=== PATIENT | female | born 1985 | race Caucasian/White ===

== ENCOUNTER 2020-08-09 06:39 | Inpatient (IN) | payer OTHER, SELFPAY ==
[2020-08-09] VITALS (23 sets, daily range): BP systolic 92–142; BP diastolic 28–116; PULSE 0–138; RESP 15–31; TEMP 36.3–36.9; O2SAT 99–100; BMI 23.9
--- NOTE | ~2020-08-09 | XR_ITS ---
EXAMINATION: XR chest 1V portable DATE: 08/09/2020 07:29 INDICATION: Shortness of breath. TECHNIQUE: A single frontal view of the chest was obtained. COMPARISON: Chest 2 views 07/14/2006 FINDINGS: There are airspace opacities in left lower lung zone. No pleural effusion or pneumothorax. The heart size is normal. IMPRESSION: 1. Airspace opacities in left lower lung zone, consistent with pneumonia. Reviewed, dictated and finalized at location A. DIRECTOR/FINANCE
[2020-08-09] MEDS: SODIUM CHLORIDE 0.9% IV 1,000 ML 999 ML IV CONT ×4 (06:50→15:07)
--- NOTE | 2020-08-09 06:50 | ECG_ITS ---
Measurements Intervals [place] Rate: 121 P: 78 RI: 116 QRS: -24 QRSD: 77 T: 56 QT: 321 QTc: 456 Interpretive Statements SINUS TACHYCARDIA WITH SHORT RI INTERVAL RSR' IN V1 OR V2, PROBABLY NORMAL VARIANT BASELINE WANDER- II, III, AVR, AVL, AVF, V6 ABNORMAL ECG Electronically Signed On 08-09-2020 13:21:08 STENCIL MACHINE OPERATOR by Francois Hammonds D.O.
[2020-08-09] MEDS: PROMETHAZINE HCL 25 MG/ML AMPUL 12.5 MG IV PUSH (06:52)
[2020-08-09 07:05] LABS: Basophils Absolute Auto 0.1 K/mm3 (0.0-0.1); Basophils Percent Auto 0.8 % (0.2-1.2); Eosinophils Percent Auto 0.1 % (0-4.4); Hematocrit 50.4 % (37.0-47.0); Hemoglobin 15.9 g/dL (12.0-15.0); Immature Granulocyte Absolute 0.14 K/mm3 (0.00-0.031); Immature Granulocyte Percent A 0.9 % (0-0.5); Lymphocytes Absolute Auto 1.73 K/mm3 (0.9-3.2); Lymphocytes Percent Auto 10.7 % (18.3-44.2); Mean Corpuscular HGB Conc 31.5 g/dl (32-36); Mean Corpuscular Hemoglobin 29.7 pg (26-34); Mean Corpuscular Volume 94.2 fl (80-100); Mean Platelet Volume 9.6 fl (7.4-10.4); Monocytes Absolute Auto 1.2 K/mm3 (0.1-0.6); Monocytes Percent Auto 7.4 % (2.6-8.5); Neutrophils Percent Auto 80.1 % (45.5-73.1); Platelet Count Result 458 k/mm3 (150-375); Red Blood Count 5.35 M/mm3 (4.2-5.4); Red Cell Distribution Width 13.1 % (11.5-14.5); White Blood Count 16.2 K/mm3 (4.5-10.0)
[2020-08-09 07:09] LABS: Base Excess ABG -24.5 mEq/l (+/-2.0); Carboxyhemoglobin 0.7 % THb (0-2.0); Fractional Inspired Oxygen 21 %; HCO3 ABG 3.5 mEq/l (22.0-26.0); Methemoglobin ABG 0.4 %THb (0-1.5); Oxygen Content ABG 21.3 %vol (16.0-22.0); Oxygen Saturation ABG 96.1 % (95.0-100.0); Oxyhemoglobin 96.2 % THb (90.0-100.0); PO2 ABG 110.8 mmHg (80.0-100.0); PO2 FiO2 Ratio Arterial Blood 5.28 %; Reduced Hemoglobin 2.7 %THb (0-5.0); Total Hemoglobin 15.7 g/dL (12.0-18.0)
[2020-08-09 07:10] LABS: PCO2 ABG 12.5 mmHg (35.0-45.0); pH ABG 7.065 (7.350-7.450)
[2020-08-09 07:11] LABS: Device ROOM AIR; Modified Allen's Test Pass; Site Drawn RIGHT RADIAL
[2020-08-09 07:16] LABS: Alanine Aminotransferase 35 U/L (4-35); Albumin Level 4.8 g/dL (3.5-5.1); Alkaline Phosphatase 184 U/L (38-126); Aspartate Amino Transferase 68 U/L (14-36); Bilirubin,Total 0.5 mg/dL (0.2-1.3); Blood Urea Nitrogen 10 mg/dL (7-17); Calcium 9.5 mg/dL (8.4-10.2); Carbon Dioxide < 5 mmol/L (22-30); Chloride 101 mmol/L (98-107); Estimated CRCL calculation 72 ml/min; Estimated Glomerular Filt Rate > 60; Glucose 331 mg/dL (65-105); Lipase 57 U/L (23-300); Potassium 4.7 mmol/L (3.4-5.0); Sodium 138 mmol/L (137-145)
[2020-08-09] MEDS: ONDANSETRON INJ 4 MG/2 ML VIAL IV PUSH (07:30)
[2020-08-09] MEDS: LORazepam INJ (*CRX) 2 MG/ML VIAL 1 MG IV PUSH (07:30)
--- NOTE | 2020-08-09 08:03 | ED.GENADULT ---
HPI - General Adult General Chief complaint: Shortness of Breath/Dyspnea Stated complaint: SOB N/V Time Seen by Provider: 08/09/20 07:16 Source: EMS Mode of arrival: EMS History of Present Illness HPI narrative: Patient brought to the emergency room by ambulance because of dry cough, shortness of breath, hyperventilation, nausea and vomiting and elevated blood glucose over the last 3 days. Unable to get history from the patient because unable to speak because of coughing every time trying to talk. No family member at the bedside. Related Data Allergies Allergy/AdvReac Type Severity Reaction Status Date / Time No Known Allergies Allergy Verified 07/07/16 12:55 Review of Systems Review of Systems: ROS unobtainable: Yes unobtainable due to medical condition PMFSH Past Medical History Medical History (Updated 08/09/20 @ 08:27 by Grace Jorgensen MD) Insulin dependent diabetes mellitus Social History Social History (Updated 08/09/20 @ 08:09 by Grace Jorgensen MD) Social History: Unknown patient unable to talk Second hand tobacco smoke exposure: No Exam Narrative: Exam Narrative: General appearance: Well-developed, well-nourished, ill looking Skin: Normal color Head: Normocephalic, nontraumatic Eyes: Clear conjunctiva ENT: Oropharynx normal, ears normal, nose normal Neck: Supple, nontender Chest and respiratory:, tachypneic, decreased air entry bilaterally mainly at the bases Heart: Tachycardic Abdomen: Soft, nontender, no organomegaly, quiet bowel sounds Vascular: Normal peripheral pulses, normal capillary refill. Neurologic: Alert, unable to answer question because of the coughing anytime try to talk Course Course Emergency Course: Improving Consultations Consultation #1: Dr. Chris Date: 08/09/20 Time: 08:11 Consultation #2: dr atwood Date: 08/09/20 Time: 08:29 Vital Signs Vital signs: Vital Signs Temperature 36.3 C L 08/09/20 06:40 Pulse Rate 118 H 08/09/20 06:40 Respiratory Rate 28 H 08/09/20 06:40 Blood Pressure 115/71 08/09/20 06:40 Pulse Oximetry 100 08/09/20 06:40 Temperature 36.3 C L 08/09/20 06:40 Pulse Rate 130 H 08/09/20 07:14 Respiratory Rate 22 H 08/09/20 07:14 Blood Pressure 138/99 H 08/09/20 07:14 Pulse Oximetry 99 08/09/20 07:14 Medical Decision Making MDM Narrative Medical decision making narrative: Patient presents with coughing and elevated blood glucose. Labs, chest x-ray, ABG on room air, IV fluid ordered. Further plan to follow Differential Diagnosis Differential Diagnosis: Pneumonia, viral infection, dehydration, DKA Vital Signs Vital Signs: Vital Signs Temperature 36.3 C L 08/09/20 06:40 Pulse Rate 118 H 08/09/20 06:40 Respiratory Rate 28 H 08/09/20 06:40 Blood Pressure 115/71 08/09/20 06:40 Pulse Oximetry 100 08/09/20 06:40 Temperature 36.3 C L 08/09/20 06:40 Pulse Rate 130 H 08/09/20 07:14 Respiratory Rate 22 H 08/09/20 07:14 Blood Pressure 138/99 H 08/09/20 07:14 Pulse Oximetry 99 08/09/20 07:14 Lab Data Result diagrams: 08/09/20 06:52 08/09/20 06:52 Labs: Lab Results 08/09/20 08/09/20 08/09/20 Range/Units 06:52 06:52 06:52 WBC 16.2 H (4.5-10.0) K/mm3 RBC 5.35 (4.2-5.4) M/mm3 Hgb 15.9 H (12.0-15.0) g/dL Hct 50.4 H (37.0-47.0) % MCV 94.2 (80-100) fl MCH 29.7 (26-34) pg MCHC 31.5 L (32-36) g/dl RDW 13.1 (11.5-14.5) % Plt Count 458 H (150-375) k/mm3 MPV 9.6 (7.4-10.4) fl Immature Gran % (Auto) 0.9 H (0-0.5) % Neut % (Auto) 80.1 H (45.5-73.1) % Lymph % (Auto) 10.7 L (18.3-44.2) % [place] % (Auto) 7.4 (2.6-8.5) % Eos
[2020-08-09 09:02] LABS: Glucose Point of Care 414 (65-105)
[2020-08-09] MEDS: INSULIN HUMAN REGULAR (*BKC) 100 UNITS in SODIUM CHLORIDE 0.9% IV 99 ML 7 UNITS IV CONT (09:06)
[2020-08-09 09:08] LABS: Magnesium 1.7 mg/dL (1.6-2.3); Phosphorus 6.3 mg/dL (2.5-4.5)
--- NOTE | 2020-08-09 09:50 | PC.NURSE ---
pt urinated all over self and bedding. bedding and pt changed. warm blankets provided.
[2020-08-09 10:17] LABS: Hemoglobin A1C 10.8 % (<5.7)
[2020-08-09 10:31] LABS: Glucose Point of Care 323 (65-105)
--- NOTE | 2020-08-09 11:19 | ADMGEN ---
This patient, Tara Hinkle, was admitted to Intensive Care Unit-7 @ 1015. Patient/ oriented to hospital policies and general routines including ID bracelet, bed and alarms, visiting hours, pain management, procedures, bathroom and other care routines, personal items, smoking policy, room service/diet, and visiting hours. Insulin drip infusing at 7.9 units=7.9cc/hr. monitor ST @ 140- resp @ 30 spo2= 100% Information on how to activate the Rapid Response Team has been discussed. Patient/are encouraged to report perceived risks to care and to ask questions if they do not understand what they are told or what they should do.
[2020-08-09] MEDS: KCL 20 MEQ/D5/0.45% SOD CHL 1,000 ML 150 ML IV CONT ×2 (12:15→21:05)
[2020-08-09 12:28] LABS: Glucose Point of Care 271 (65-105)
[2020-08-09 12:28] LABS: Glucose Point of Care 184 (65-105)
[2020-08-09 13:19] LABS: Glucose Point of Care 128 (65-105)
--- NOTE | 2020-08-09 13:44 | WPDCNINT ---
Assessment and Plan Assessment and plan (1) DKA (diabetic ketoacidoses): Qualifiers: Diabetes mellitus complication detail: without coma Diabetes mellitus type: type 1 Qualified Code(s): E10.10 - Type 1 diabetes mellitus with ketoacidosis without coma Code(s): E11.10 - Type 2 diabetes mellitus with ketoacidosis without coma Status: Acute Assessment and Plan: Patient presented to the ED with nausea, vomiting, abdominal discomfort, cough -found to be in DKA, given IV fluid bolus, 3 L in all (including ICU) -heart rate improved -patient started on insulin infusion per DKA protocol IV fluids and Q 4 BMPs -hemoglobin A1c is 10.8 -continue insulin infusion for now (2) Community acquired pneumonia: Qualifiers: Laterality: left Lung location: lower lobe of lung Qualified Code(s): J18.9 - Pneumonia, unspecified organism Code(s): J18.9 - Pneumonia, unspecified organism Status: Acute Assessment and Plan: Chest x-ray showed left lower lobe airspace disease -patient also complaining of cough along with leukocytosis -no fevers -patient started on azithromycin and ceftriaxone -ordered Tessalon Perles for her cough (3) Suspected 2019 novel coronavirus infection: Code(s): Z20.828 - Contact with and (suspected) exposure to other viral communicable diseases Status: Acute Assessment and Plan: SARS-CoV-2 PCR soap has been obtained COVID-19 and pending -continue airborne, droplet, contact isolation and precautions Additional Plan Discussed with patient regarding her plan of care. Code status: Full code Critical care time spent: 43 minutes Due to a high probability of clinically significant, life threatening deterioration, the patient required my highest level of preparedness to intervene emergently and I personally spent this critical care time directly and personally managing the patient. This critical care time included obtaining a history; examining the patient; pulse oximetry; ordering and review of studies; arranging urgent treatment with development of a management plan; evaluation of patient's response to treatment; frequent reassessment; and discussions with other providers. It was exclusive of separately billable procedures and treating other patients and teaching time. Please see Assessment and Plan section and the rest of the note for further information on patient assessment and treatment Psychiatric Technician Assistant Consult Note Consult date: 08/09/20 Time Seen: 10:49 Reason for consult: DKA, suspect COVID-19 HPI: Tara Hinkle is a 35 year old female with past medical of insulin-dependent diabetes presented ED on 08/09/2020 with complains of dry cough, shortness of breath nausea, vomiting, abdominal discomfort elevated blood sugars for the last 3 days. Patient states that she been taking her insulin but a blood sugars remain elevated. Nonproductive cough. Unable to obtain more history due to patient coughs with every sentence. Vasopressin the left lower lung zone, this 1 pneumonia, patient was started on azithromycin and ceftriaxone. Patient was found to be in DKA in the ER, given 2 L IV fluids, started on insulin infusion per DKA protocol and transferred to the ICU for further management. Patient was seen examined upon arrival to the ICU, patient was tachycardic in the 130s to 140s, additional IV fluid bolus was given. Patient is awake, alert, follows simple commands. Continues to cough with every sentence. Patient is afebrile, hemodynamically stable. She has not been around any COVID-19 positive patients. Complained of nausea, vomiting, abdominal discomfort, which has improved Review of Systems Review of Systems: All systems reviewed & are unremarkable except as noted in HPI and below [facility] Past Medical History Medical History (Updated 08/09/20 @ 13:54 by Davy Chris MD) Insulin dependent diabetes mellitus Social History Social History (Updated 08/09
[2020-08-09 14:30] LABS: Glucose Point of Care 129 (65-105)
[2020-08-09] MEDS: BENZONATATE 100 MG CAPSULE PO ×2 (15:02→22:17)
[2020-08-09 15:14] LABS: Glucose Point of Care 131 (65-105)
[2020-08-09 15:20] LABS: Anion Gap 21 mmol/L (8-16); Blood Urea Nitrogen 10 mg/dL (7-17); Calcium 8.1 mg/dL (8.4-10.2); Carbon Dioxide 9 mmol/L (22-30); Chloride 111 mmol/L (98-107); Estimated CRCL calculation 75 ml/min; Estimated Glomerular Filt Rate > 60; Glucose 138 mg/dL (65-105); Potassium 4.2 mmol/L (3.4-5.0); Sodium 141 mmol/L (137-145)
--- NOTE | 2020-08-09 18:00 | PM.IMHP ---
H&P: HPI History of Present Illness Date/Time: 08/09/20 18:00 Chief complaint: Nausea, vomiting, shortness breath, cough. Cheif Complaint: Nausea, vomiting, cough, shortness of breath. Narrative: Tara Hinkle is a 35-year-old female with insulin-dependent diabetes who presented to the emergency department earlier today via EMS from home with complaints of nausea, vomiting, shortness of breath, and cough. She has been feeling unwell for about 3 days and has not been able to hold down much of anything due to ongoing nausea and vomiting. She also has a hacking, nonproductive cough which makes it difficult for her to even take a drink as she is coughing so much. Her sinuses are also congested. For several days her glucose has been running quite high, despite taking her insulin as prescribed. This morning she was pretty short of breath and thus came in for evaluation. She was found to be in DKA and is being admitted in this setting. Her chest x-ray showed findings in the left lower lung zone consistent with pneumonia. 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 She has not had fever, chest pain, or diarrhea. Review of Systems Review of Systems: Narrative: Twelve systems were reviewed with pertinent positives and negatives as per HPI. Weight has remained stable. No recent travel. She denies blurry vision. Reports polydipsia and polyuria. Last menstrual cycle was approximately 2 weeks ago. No dysuria. She denies concerns for aspiration. Admits her diabetes is not always very well controlled. Except as documented, all other systems were reviewed and are negative. [facility] Past Medical History Medical History (Updated 08/09/20 @ 23:53 by Denisa Norman PA-C) Type 1 diabetes mellitus Diagnosed at the age of 7. Hemoglobin A1c was 10.8% on 08/09/2020. Surgical History Surgical History (Updated 08/09/20 @ 15:35 by Denisa Norman PA-C) History of 3 sections Family History Family History (Updated 08/09/20 @ 23:53 by Denisa Norman PA-C) Other Hypertension Social History Social History (Updated 08/09/20 @ 23:54 by Denisa Norman PA-C) Social History: The patient lives alone in [place]. She smokes about half a pack of cigarettes a day and consumes about four alcoholic beverages a week. Occasional marijuana use. She designates her father, Gomez Henry, as her surrogate decision maker and she wishes to be a full code. Smoking packs per day: 0.5 Smoking cigarettes per day: 10.0 Years smoked: 19 Smoking pack-years: 9.50 Smoking status: Current every day smoker Tobacco type: cigarettes Second hand tobacco smoke exposure: No Alcohol intake: current Drinks per week: 4 Substance use: current Substance use type: marijuana Gender identity (if verbalized by the patient): Female Spiritual care concerns: No Meds Home Medications and Allergies Home Medications Medication Instructions Recorded Confirmed Type insulin glargine [Basaglar KwikPen 14 unit SUBCUT Q12H 08/09/20 08/09/20 History U-100 Insulin] Allergies Allergy/AdvReac Type Severity Reaction Status Date / Time No Known Allergies Allergy Verified 07/07/16 12:55 Vital Signs Vital Signs - 24 hr 08/09/20 06:40 08/09/20 07:14 08/09/20 07:16 Temperature 97.3 F L Pulse Rate 118 H 130 H 129 H Respiratory Rate 28 H 22 H 29 H Blood Pressure 115/71 138/99 H 128/91 H Pulse Oximetry 100 99 08/09/20 07:17 08/09/20 07:30 08/09/20 07:43 Temperature Pulse Rate 137 H 0 L 131 H Respiratory Rate 25 H 24 H 29 H Blood Pressure 142/114 H Pulse Oximetry 100 100 08/09/20 07:45 08/09/20 08:00 08/09/20 08:02 Temperature Pulse Rate 126 H 120 H 118 H Respiratory Rate 25 H 24 H 27 H Blood Pressure 136/116 H Pulse Oximetry 100 100 100 08/09/20 08:23 08/09/20 10:35
[2020-08-09 18:18] LABS: Glucose Point of Care 126 (65-105)
[2020-08-09 18:18] LABS: Glucose Point of Care 117 (65-105)
[2020-08-09 18:18] LABS: Glucose Point of Care 116 (65-105)
[2020-08-09 19:15] LABS: Glucose Point of Care 105 (65-105)
[2020-08-09 20:21] LABS: Anion Gap 8 mmol/L (8-16); Blood Urea Nitrogen 9 mg/dL (7-17); Calcium 7.8 mg/dL (8.4-10.2); Carbon Dioxide 18 mmol/L (22-30); Chloride 114 mmol/L (98-107); Estimated CRCL calculation 98 ml/min; Estimated Glomerular Filt Rate > 60; Glucose 79 mg/dL (65-105); Potassium 3.4 mmol/L (3.4-5.0); Sodium 140 mmol/L (137-145)
[2020-08-09 21:22] LABS: Glucose Point of Care 91 (65-105)
[2020-08-09 21:24] LABS: Glucose Point of Care 84 (65-105)
[2020-08-09 22:25] LABS: Glucose Point of Care 116 (65-105)
[2020-08-09 22:42] LABS: SARS-CoV-2 RNA PCR Negative
[2020-08-09 23:14] LABS: Glucose Point of Care 125 (65-105)
[2020-08-09] MEDS: INSULIN GLARGINE (*BKC) 100 UNITS/ML 14 UNITS SUB-Q (23:36)
[2020-08-10] VITALS (13 sets, daily range): BP systolic 102–121; BP diastolic 66–87; PULSE 77–98; RESP 15–20; TEMP 36.2–37.2; O2SAT 94–100
[2020-08-10 05:20] LABS: Basophils Percent Auto 0.4 % (0.2-1.2); Eosinophils Absolute Auto 0.1 K/mm3 (0-0.3); Eosinophils Percent Auto 0.9 % (0-4.4); Hematocrit 39.1 % (37.0-47.0); Immature Granulocyte Absolute 0.03 K/mm3 (0.00-0.031); Immature Granulocyte Percent A 0.4 % (0-0.5); Lymphocytes Absolute Auto 1.84 K/mm3 (0.9-3.2); Lymphocytes Percent Auto 26.8 % (18.3-44.2); Mean Corpuscular HGB Conc 33.2 g/dl (32-36); Mean Corpuscular Hemoglobin 29.7 pg (26-34); Mean Corpuscular Volume 89.5 fl (80-100); Mean Platelet Volume 10.2 fl (7.4-10.4); Monocytes Absolute Auto 0.6 K/mm3 (0.1-0.6); Monocytes Percent Auto 8.9 % (2.6-8.5); Neutrophils Absolute Auto 4.3 K/mm3 (1.3-6.7); Neutrophils Percent Auto 62.6 % (45.5-73.1); Platelet Count Result 305 k/mm3 (150-375); Red Blood Count 4.37 M/mm3 (4.2-5.4); Red Cell Distribution Width 12.9 % (11.5-14.5); White Blood Count 6.9 K/mm3 (4.5-10.0)
[2020-08-10 05:37] LABS: Anion Gap 11 mmol/L (8-16); Blood Urea Nitrogen 8 mg/dL (7-17); Calcium 8.2 mg/dL (8.4-10.2); Carbon Dioxide 18 mmol/L (22-30); Chloride 110 mmol/L (98-107); Estimated CRCL calculation 98 ml/min; Estimated Glomerular Filt Rate > 60; Glucose 213 mg/dL (65-105); Potassium 3.6 mmol/L (3.4-5.0); Sodium 139 mmol/L (137-145)
[2020-08-10] MEDS: BENZONATATE 100 MG CAPSULE PO ×3 (05:57→21:24)
[2020-08-10 08:23] LABS: Glucose Point of Care 206 (65-105)
[2020-08-10] MEDS: INSULIN ASPART (*BKC) 100 UNITS/ML SUB-Q ×3 (08:59→16:56)
[2020-08-10] MEDS: INSULIN GLARGINE (*BKC) 100 UNITS/ML 14 UNITS SUB-Q ×2 (09:02→20:01)
[2020-08-10 11:52] LABS: Glucose Point of Care 257 (65-105)
--- NOTE | 2020-08-10 13:08 | WPDINTPN ---
Progress Note: A&P Assessment and Plan (1) DKA (diabetic ketoacidoses): Qualifiers: Diabetes mellitus complication detail: without coma Diabetes mellitus type: type 1 Qualified Code(s): E10.10 - Type 1 diabetes mellitus with ketoacidosis without coma Code(s): E11.10 - Type 2 diabetes mellitus with ketoacidosis without coma Status: Acute Assessment and Plan: Patient presented to the ED with nausea, vomiting, abdominal discomfort, cough -patient adequate received IV fluids, was on insulin infusion per DKA protocol -tachycardia resolved -patient transition to sliding scale insulin and long-acting insulin -tolerating diabetic diet -hemoglobin A1c is 10.8 (2) Community acquired pneumonia: Qualifiers: Laterality: left Lung location: lower lobe of lung Qualified Code(s): J18.9 - Pneumonia, unspecified organism Code(s): J18.9 - Pneumonia, unspecified organism Status: Acute Assessment and Plan: Chest x-ray showed left lower lobe airspace disease -patient also complaining of cough along with leukocytosis -no fevers -continue azithromycin and ceftriaxone (initiated on 08/09) -continue Tessalon Perles for her cough (3) Suspected 2019 novel coronavirus infection: Code(s): Z20.828 - Contact with and (suspected) exposure to other viral communicable diseases Status: Acute Assessment and Plan: SARS-CoV-2 PCR negative Isolation has been discontinued Additional Plan Discussed with patient regarding her plan of care. Code status: Full code Critical care time spent: 31 minutes Due to a high probability of clinically significant, life threatening deterioration, the patient required my highest level of preparedness to intervene emergently and I personally spent this critical care time directly and personally managing the patient. This critical care time included obtaining a history; examining the patient; pulse oximetry; ordering and review of studies; arranging urgent treatment with development of a management plan; evaluation of patient's response to treatment; frequent reassessment; and discussions with other providers. It was exclusive of separately billable procedures and treating other patients and teaching time. Please see Assessment and Plan section and the rest of the note for further information on patient assessment and treatment Subjective Date/time seen: 08/10/20 13:08 Interval history: Reason for consult: DKA, suspect COVID-19, pneumonia, cough -SARS-CoV-2 PCR negative 08/10: Patient seen and examined the ICU, states she feels much better than on admission. Cough has improved, heart rate has improved. Patient denies any nausea, vomiting abdominal pain, chest pain. Hemodynamically stable, urine output has been good, afebrile Review of Systems Review of Systems: All systems reviewed & are unremarkable except as noted in HPI and below Exam Const: General: comfortable and no acute distress HENMT: Mouth: Yes dry mucous membranes Eyes: Sclera: sclerae normal Pupils: Equal, round and reactive pupils present Neck: Neck: supple Resp: Effort & Inspection: normal respiratory effort Auscultation: clear to auscultation bilaterally Cardio: Rate: regular rate Rhythm: regular rhythm GI: Inspection: normal to inspection and non-distended GI Palp: Yes Soft to palpation and No Tenderness to palpation present (GI) Auscultation: normal bowel sounds : Other: Deferred Skin: General skin exam: normal color and no rashes or lesions noted Other: Tattoos Neuro: Cranial nerves: Yes Equal, round and reactive pupils present Other: Patient is awake, alert, oriented, follows simple commands and answers to questions Extrem: General: normal to inspection, no edema and no pedal edema Psych: Mental Status: mental status grossly normal Affect: normal affect Objective Data Vital Signs Vital Signs: Vital Signs - 24 hr 08/09/20 14:00 08/09/20
--- NOTE | 2020-08-10 15:41 | PC.NURSE ---
pt transferred to room 345 via wheelchair accompanied by nurse-medical status - personal belongings with pt-condition stable - report given to Jaci NESBITT-
--- NOTE | 2020-08-10 15:51 | PC.NURSE ---
This patient, Tara Hinkle, was received from ICU on 08/10/20 at 1551. Patient/family oriented to unit policies and routines
[2020-08-10 17:48] LABS: Glucose Point of Care 210 (65-105)
--- NOTE | 2020-08-10 18:16 | PM.IMPN ---
Progress Note: A&P Assessment and Plan (1) Diabetic ketoacidosis: Code(s): E11.10 - Type 2 diabetes mellitus with ketoacidosis without coma Status: Resolved Assessment and Plan: Pt is off insulin drip (2) Pneumonia: Code(s): J18.9 - Pneumonia, unspecified organism Status: Acute Assessment and Plan: Iv rocephin and IV zithromax, Wcc is BNL, (3) Dehydration: Code(s): E86.0 - Dehydration Status: Resolved (4) Suspected 2019 novel coronavirus infection: Code(s): Z20.828 - Contact with and (suspected) exposure to other viral communicable diseases Status: Ruled-out (5) Type 1 diabetes mellitus: Code(s): E10.9 - Type 1 diabetes mellitus without complications Status: Acute Assessment and Plan: Lantus 14 units with sliding scale insulin Subjective Date/time seen: 08/10/20 18:16 Interval history: Reason for consult: DKA, suspect COVID-19, pneumonia, cough -SARS-CoV-2 PCR negative, pt moved out of ICU, comfortable eating well mild cough in the room Review of Systems Review of Systems: All systems reviewed & are unremarkable except as noted in HPI and below Exam Const: General: cooperative and healthy appearing; No in distress Nutritional Appearance: overweight Orientation/consciousness: oriented to person HENMT: Head: normal to inspection Resp: Effort & Inspection: no respiratory distress Auscultation: wheezes, breath sounds absent and diminished lung sounds Cardio: Rate: regular rate Rhythm: regular rhythm GI: Inspection: normal to inspection GI Palp: No abdominal tenderness, No Guarding due to palpation present (GI) and No Hepatomegaly present Auscultation: normal bowel sounds Neuro: General: oriented to person Objective Data Vital Signs Vital Signs: Vital Signs - 24 hr 08/09/20 20:00 08/09/20 22:00 08/10/20 00:00 Temperature 36.9 C 36.9 C Pulse Rate 86 87 89 Respiratory Rate 15 16 18 Blood Pressure 100/67 97/61 L 102/67 Pulse Oximetry 100 100 98 08/10/20 02:00 08/10/20 04:00 08/10/20 06:00 Temperature 36.9 C Pulse Rate 88 77 91 Respiratory Rate 20 18 19 Blood Pressure 121/75 108/66 114/79 Pulse Oximetry 94 95 94 08/10/20 08:00 08/10/20 09:45 08/10/20 10:00 Temperature 37.2 C Pulse Rate 84 87 98 Respiratory Rate 16 16 Blood Pressure 119/74 119/74 Pulse Oximetry 100 99 08/10/20 10:24 08/10/20 11:47 08/10/20 12:00 Temperature 37.2 C Pulse Rate 97 94 94 Respiratory Rate 18 15 Blood Pressure 107/66 121/87 Pulse Oximetry 100 100 08/10/20 14:00 08/10/20 16:45 Temperature 36.2 C L Pulse Rate 81 92 Respiratory Rate 16 Blood Pressure 111/74 Pulse Oximetry 100 Intake/Output Intake/Output: Intake & Output 08/07/20 08/08/20 08/09/20 08/10/20 23:59 23:59 23:59 23:59 Intake Total 5600 2303 Output Total 2550 1950 Balance 3050 353 Meds/Results Medications: Active Medications Generic Name Dose Route Start Last Admin Trade Name Freq PRN Reason Stop Dose Admin Benzonatate 100 mg 08/09/20 22:00 08/10/20 15:28 Benzonatate 100 Mg Capsule PO 100 mg Q8HR KARRIE Administration Dextrose 12.5 gm 08/09/20 07:54 Dextrose 50% 25 Gm/50 Ml Syringe IV PUSH PRN PRN Hypoglycemia Protocol Glucagon 1 mg 08/09/20 07:54 Glucagon For Inj 1 Mg Vial IM PRN PRN Hypoglycemia Protocol Glucose 15 gm 08/09/20 07:54 Glucose Oral Gel 15 Gm Of Glucse In 37.5 Gm Tube PO PRN PRN Hypoglycemia Protocol Dextrose 1,000 mls @ 100 mls/hr 08/09/20 07:54 Dextrose 5% 1,000 Ml IVPB PRN PRN Hypoglycemia Protocol Ceftriaxone Sodium/Dextrose 1 gm in 50 mls @ 100 mls/hr 08/10/20 08:00 08/10/20 09:55 Rocephin 1 Gm/D5w 50 Ml IVPB Infused Q24H KARRIE Infusion Azithromycin 500 mg in 250 mls @ 250 mls/hr 08/10/20 09:00 08/10/20 10:15 Zithromax IVPB Infused Q24H KARRIE Infusion Insulin Aspart 3 -
[2020-08-10 20:18] LABS: Glucose Point of Care 195 (65-105)
[2020-08-11 05:12] VITALS: BP 105/74; PULSE 87; RESP 16; TEMP 36.3; O2SAT 100
[2020-08-11] MEDS: BENZONATATE 100 MG CAPSULE PO ×3 (05:14→21:00)
[2020-08-11 06:57] LABS: Glucose Point of Care 83 (65-105)
[2020-08-11] MEDS: INSULIN GLARGINE (*BKC) 100 UNITS/ML 14 UNITS SUB-Q ×2 (08:39→20:02)
[2020-08-11 12:30] LABS: Glucose Point of Care 301 (65-105)
--- NOTE | 2020-08-11 12:51 | PM.IMPN ---
Progress Note: A&P Assessment and Plan (1) Diabetic ketoacidosis: Code(s): E11.10 - Type 2 diabetes mellitus with ketoacidosis without coma Status: Resolved Assessment and Plan: Pt is off insulin drip, lantus presently , glucose is 200. Continue to monitor, hopeful Dc tomorrow (2) Pneumonia: Code(s): J18.9 - Pneumonia, unspecified organism Status: Acute Assessment and Plan: Iv rocephin and IV zithromax, Wcc is NL, Bc is negative. cxr shows -Airspace opacities in left lower lung zone, consistent with pneumonia. (3) Dehydration: Code(s): E86.0 - Dehydration Status: Resolved (4) Suspected 2019 novel coronavirus infection: Code(s): Z20.828 - Contact with and (suspected) exposure to other viral communicable diseases Status: Ruled-out (5) Type 1 diabetes mellitus: Code(s): E10.9 - Type 1 diabetes mellitus without complications Status: Acute Assessment and Plan: Lantus 14 units with sliding scale insulin, accuchecks, short acting insulin Subjective Date/time seen: 08/11/20 12:51 Interval history: Reason for consult: DKA, suspect COVID-19, pneumonia, cough -SARS-CoV-2 PCR negative, pt feels better, mild cough. Review of Systems Review of Systems: All systems reviewed & are unremarkable except as noted in HPI and below Exam Narrative: Exam Narrative: General: Pleasant younger lady with wet cough HEENT: PERRLA Neck: Supple. = Respiratory: Decreased BS Bl with wheezes Cardiovascular: Regular rate and rhythm with S1-S2. Gastrointestinal: Abdomen is soft, nontender, and nondistended with positive bowel sounds. Skin: Warm and dry. No rash or lesions on limited exam. Extremities: No cyanosis, clubbing, or edema. Radial and pedal pulses intact. Neurological: Alert. Cranial nerves 2-12 are grossly intact. No gross focal deficits to casual conversation. Psychiatric: Appropriate mood and affect. Objective Data Vital Signs Vital Signs: Vital Signs - 24 hr 08/10/20 14:00 08/10/20 16:45 08/10/20 19:55 Temperature 36.2 C L 36.4 C Pulse Rate 81 92 87 Respiratory Rate 16 18 Blood Pressure 111/74 113/80 Pulse Oximetry 100 100 08/11/20 05:12 Temperature 36.3 C L Pulse Rate 87 Respiratory Rate 16 Blood Pressure 105/74 Pulse Oximetry 100 Intake/Output Intake/Output: Intake & Output 08/08/20 08/09/20 08/10/20 08/11/20 23:59 23:59 23:59 23:59 Intake Total 5600 2303 1590 Output Total 2550 1950 Balance 3050 353 1590 Meds/Results Medications: Active Medications Generic Name Dose Route Start Last Admin Trade Name Freq PRN Reason Stop Dose Admin Benzonatate 100 mg 08/09/20 22:00 08/11/20 05:14 Benzonatate 100 Mg Capsule PO 100 mg Q8HR KARRIE Administration Dextrose 12.5 gm 08/09/20 07:54 Dextrose 50% 25 Gm/50 Ml Syringe IV PUSH PRN PRN Hypoglycemia Protocol Glucagon 1 mg 08/09/20 07:54 Glucagon For Inj 1 Mg Vial IM PRN PRN Hypoglycemia Protocol Glucose 15 gm 08/09/20 07:54 Glucose Oral Gel 15 Gm Of Glucse In 37.5 Gm Tube PO PRN PRN Hypoglycemia Protocol Dextrose 1,000 mls @ 100 mls/hr 08/09/20 07:54 Dextrose 5% 1,000 Ml IVPB PRN PRN Hypoglycemia Protocol Ceftriaxone Sodium/Dextrose 1 gm in 50 mls @ 100 mls/hr 08/10/20 08:00 08/11/20 09:06 Rocephin 1 Gm/D5w 50 Ml IVPB Infused Q24H KARRIE Infusion Azithromycin 500 mg in 250 mls @ 250 mls/hr 08/10/20 09:00 08/11/20 10:18 Zithromax IVPB Infused Q24H KARRIE Infusion Insulin Aspart 3 - 6 units 08/10/20 08:00 08/11/20 07:04 Insulin Aspart (*Bkc) 100 Units/Ml SUB-Q Not Given TIDWM KARRIE Protocol Insulin Glargine 14 units 08/09/20 23:15 08/11/20 08:39 Insulin Glargine (*Bkc) 100 Units/Ml SUB-Q 14 units Q12HR KARRIE Administration Radiology Results: ITS Impressions Chest X-Ray 08/09/20 07:30 IMPRESSION: 1. Airspace opaciti
[2020-08-11] MEDS: INSULIN ASPART (*BKC) 100 UNITS/ML SUB-Q (12:53)
[2020-08-11 14:00] VITALS: BP 111/88; PULSE 79; RESP 14; TEMP 36.1; O2SAT 100
[2020-08-11 17:16] LABS: Glucose Point of Care 143 (65-105)
[2020-08-11] MEDS: ACETAMINOPHEN 325 MG TABLET 650 MG PO (18:51)
[2020-08-11 19:57] VITALS: BP 121/80; PULSE 76; RESP 14; TEMP 36.6; O2SAT 100
[2020-08-11 20:22] LABS: Glucose Point of Care 227 (65-105)
[2020-08-12 05:44] VITALS: BP 117/70; PULSE 80; RESP 16; TEMP 36.4; O2SAT 97
[2020-08-12] MEDS: BENZONATATE 100 MG CAPSULE PO (05:44)
[2020-08-12 07:25] LABS: Glucose Point of Care 192 (65-105)
[2020-08-12] MEDS: INSULIN GLARGINE (*BKC) 100 UNITS/ML 14 UNITS SUB-Q (08:36)
[2020-08-12] MEDS: ACETAMINOPHEN 325 MG TABLET 650 MG PO (09:59)
[2020-08-12] MEDS: INSULIN ASPART (*BKC) 100 UNITS/ML SUB-Q (11:56)
[2020-08-12 12:00] LABS: Glucose Point of Care 324 (65-105)
--- NOTE | 2020-08-12 12:12 | PM.DS ---
DS: Admitting Diagnosis Admitting Diagnosis Admitting Diagnosis: Nausea, vomiting, shortness breath, cough. DS: Discharge Diagnosis Discharge Diagnosis (1) Diabetic ketoacidosis: Code(s): E11.10 - Type 2 diabetes mellitus with ketoacidosis without coma Status: Resolved Assessment and Plan: Pt is off insulin drip, glucose is 200. Pt states she takes meal time insulin and was not getting that here in the hospital only SSI, so her sugars are slightly high today 200-300. Pt went into DKA because of her pneumonia. Pt to return back to her own insulin regime at home. (2) Pneumonia: Code(s): J18.9 - Pneumonia, unspecified organism Status: Acute Assessment and Plan: Iv rocephin and IV zithromax, Wcc is NL, Bc is negative. cxr shows -Airspace opacities in left lower lung zone, consistent with pneumonia. Pt to be discharged with Augmentin for 7 days (3) Dehydration: Code(s): E86.0 - Dehydration Status: Resolved (4) Suspected 2019 novel coronavirus infection: Code(s): Z20.828 - Contact with and (suspected) exposure to other viral communicable diseases Status: Ruled-out (5) Type 1 diabetes mellitus: Code(s): E10.9 - Type 1 diabetes mellitus without complications Status: Acute Assessment and Plan: Pt discharged home on her home regime. Basaglar 16 units twice a day. Short acting insulin 6 units with meals. DS: Summary Hospital Course Hospital Course: Pt is off insulin drip, glucose is 200. Pt states she takes meal time insulin and was not getting that here in the hospital only SSI, so her sugars are slightly high today 200-300. Pt went into DKA because of her pneumonia. Pt to return back to her own insulin regime at home. Pt feels better after three days of IV rocephin and Zithromax ready for discharge. Time Spent with Patient Time attestation: Total time spent providing and/or coordinating discharge services:40 minutes on the day of discharge Exam Narrative: Exam Narrative: General: Pleasant younger lady with wet cough HEENT: PERRLA Neck: Supple. = Respiratory: Decreased BS Bl with wheezes Cardiovascular: Regular rate and rhythm with S1-S2. Gastrointestinal: Abdomen is soft, nontender, and nondistended with positive bowel sounds. Skin: Warm and dry. No rash or lesions on limited exam. Extremities: No cyanosis, clubbing, or edema. Radial and pedal pulses intact. Neurological: Alert. Cranial nerves 2-12 are grossly intact. No gross focal deficits to casual conversation. Psychiatric: Appropriate mood and affect. DS: Data Data Completed and Pending Labs on day of discharge: Labs from last 24 hours 08/12/20 08/12/20 08/11/20 11:55 07:23 20:00 POC Capillary Glucose 324 H 192 H 227 H 08/11/20 08/11/20 17:14 12:28 POC Capillary Glucose 143 H 301 H Preliminary micro results at discharge 08/09/20 08:47 Blood Culture - Preliminary Blood Discharge Plan Discharge Attending physician on discharge: Lauren Ewing Consulting providers: Yaniv Joseph ; Davy Chris Discharging Clinician: Lauren Ewing Anticipated Discharge Date/Time: 08/12/20 12:10 Patient Disposition: Home, Self-Care Activity: as tolerated Diet: diabetic Discharge Instructions: Adviced to quit smoking Pt to return to her home DM regime Basaglar 16 units twice a day. Short acting insulin 6 units with meals Patient Instructions: Antibiotic Form, How to Stop Smoking (DC) Stand Alone Forms: General Discharge Information Follow-up/Referrals: Yaniv Joseph MD [Physician] - Discharge Medications: New benzonatate 100 mg Capsule 100 mg PO Q8HR Qty: 30 RF: 0 amoxicillin-pot clavulanate [Augmentin] 875-125 mg tablet 1 tablet PO Q12H Qty: 20 RF: 0 Changed Basaglar KwikPen U-100 Insulin 100 unit/mL (3 mL) insulin pen 16 unit SUBCUT Q12H Qty: 0 RF: 0 Date of admission: 08/09/20 08:21
[2020-08-12 13:23] VITALS: BMI 27.7
== END 2020-08-12 13:30 | disposition home or self-care (01) | DRG 420 ==
LOC: ANHED 08:27 → ANHICU 11:57 → ANH3MED 08-12 12:12 → ANHICU 08-16 17:08
PROVIDERS: Emergency Medicine; Internal Medicine; Admitting Provider Internal Medicine; Emergency Provider Emergency Medicine; Visit Provider Family Medicine
DX: E10.10 Type 1 diabetes mellitus with ketoacidosis without coma (principal); J18.9 Pneumonia, unspecified organism; Z20.828 Contact with and (suspected) exposure to other viral communicable diseases; F17.210 Nicotine dependence, cigarettes, uncomplicated; E86.0 Dehydration; Z23 Encounter for immunization
CPT/HCPCS: 36415; 36600; 71045; 80048; 80053; 82010; 82375; 82805; 82948; 83036; 83050; 83690; 83735; 84100; 85025; 87040; 87635; 90471; 90653; 93005; 96361; 96374; 96375; 99291; A9270; C9803; G0008; J0131; J0456; J0696; J1815; J2060; J2405; J2550; J3480; J7030; U0003

== ENCOUNTER 2021-07-24 09:12 | Emergency (ER) | payer OTHER, SELFPAY ==
--- NOTE | ~2021-07-24 | XR_ITS ---
EXAMINATION: XR chest 1V portable 07/24/2021 11:29 INDICATION: Nausea and vomiting PROCEDURE: AP portable chest COMPARISON: 08/09/2020 FINDINGS: The lungs are clear. The cardiomediastinal silhouette is within normal limits. There are no pleural effusions. There is no pneumothorax suspected. IMPRESSION: 1: NO ACUTE CARDIOPULMONARY DISEASE. Reviewed, dictated and finalized at location B. ETIER
[2021-07-24 09:13] VITALS: BP 133/94; PULSE 107; RESP 20; TEMP 36.3; O2SAT 100
[2021-07-24] MEDS: SODIUM CHLORIDE 0.9% IV 1,000 ML 999 ML IV CONT ×2 (09:24→10:04)
[2021-07-24 09:53] LABS: Basophils Absolute Auto 0.1 K/mm3 (0.0-0.1); Basophils Percent Auto 0.7 % (0.2-1.2); Eosinophils Absolute Auto 0.1 K/mm3 (0-0.3); Eosinophils Percent Auto 1.4 % (0-4.4); Hematocrit 46.2 % (37.0-47.0); Immature Granulocyte Absolute 0.02 K/mm3 (0.00-0.031); Immature Granulocyte Percent A 0.3 % (0-0.5); Lymphocytes Absolute Auto 1.01 K/mm3 (0.9-3.2); Lymphocytes Percent Auto 13.8 % (18.3-44.2); Mean Corpuscular HGB Conc 32.5 g/dl (32-36); Mean Corpuscular Hemoglobin 31.1 pg (26-34); Mean Corpuscular Volume 95.7 fl (80-100); Mean Platelet Volume 10.1 fl (7.4-10.4); Monocytes Absolute Auto 0.7 K/mm3 (0.1-0.6); Monocytes Percent Auto 10.1 % (2.6-8.5); Neutrophils Absolute Auto 5.4 K/mm3 (1.3-6.7); Neutrophils Percent Auto 73.7 % (45.5-73.1); Platelet Count Result 204 k/mm3 (150-375); Red Blood Count 4.83 M/mm3 (4.2-5.4); White Blood Count 7.3 K/mm3 (4.5-10.0)
[2021-07-24 10:03] LABS: Alanine Aminotransferase 83 U/L (4-35); Albumin Level 5.1 g/dL (3.5-5.1); Alkaline Phosphatase 91 U/L (38-126); Anion Gap 23 mmol/L (8-16); Aspartate Amino Transferase 148 U/L (14-36); Bilirubin,Total 1.9 mg/dL (0.2-1.3); Blood Urea Nitrogen 11 mg/dL (7-17); Calcium 9.5 mg/dL (8.4-10.2); Carbon Dioxide 12 mmol/L (22-30); Chloride 97 mmol/L (98-107); Estimated CRCL calculation 84 ml/min; Estimated Glomerular Filt Rate > 60; Glucose 276 mg/dL (65-110); Lipase 57 U/L (23-300); Potassium 4.3 mmol/L (3.4-5.0); Sodium 132 mmol/L (137-145)
[2021-07-24 10:31] LABS: Alveolar/Arterial O2 Gradient 20.3 mmHg; Base Excess ABG -10.5 mEq/l (+/-2.0); Fractional Inspired Oxygen 21 %; HCO3 ABG 13.8 mEq/l (22.0-26.0); Oxygen Content ABG 19.2 %vol (16.0-22.0); Oxyhemoglobin 96.3 % THb (90.0-100.0); PCO2 ABG 27.1 mmHg (35.0-45.0); PO2 FiO2 Ratio Arterial Blood 4.62 %; Total Hemoglobin 14.1 g/dL (12.0-18.0); pH ABG 7.324 (7.350-7.450)
[2021-07-24 10:33] LABS: Device ROOM AIR; Modified Allen's Test Pass; Site Drawn RIGHT RADIAL
[2021-07-24 11:04] LABS: Beta-Hydroxybutyrate/Acetoacetate 7.44 mmol/L (0.02-0.27)
[2021-07-24 11:06] LABS: Add Urine Microscopic? YES; Appearance Urine Cloudy (Clear); Bilirubin Urine Negative (Negative); Blood Urine 1+ (Negative); Color Urine Yellow (Yellow); Glucose Urine UA 3+ mg/dL (Negative); Ketones Urine 2+ mg/dL (Negative); Leukocyte Esterase Ur Negative LEU/UL (Negative); Mucus Urine Rare /lpf; Nitrate Urine Negative (Negative); Protein Urine 1+ mg/dL (Negative); Specific Grav Ur 1.022 (1.001-1.035); Squamous Epithelial Cell Urine Many /hpf (Few); Urobilinogen Urine Negative mg/dL (<2.0)
--- NOTE | 2021-07-24 11:32 | ED.GENADULT ---
HPI - General Adult General Chief complaint: Nausea/Vomiting/Diarrhea Stated complaint: N/V Time Seen by Provider: 07/24/21 09:22 Source: patient Mode of arrival: EMS Limitations: no limitations History of Present Illness HPI narrative: Patient is a 36-year-old type I diabetic presents to the emergency department with chief complaint of nausea and vomiting that began on Saturday. Patient reports that she has had some issues with her insulin pump malfunctioning so she has been giving herself her insulin injections subcutaneously. Patient reports that she takes Basaglar in the evenings and NovoLog throughout the day. Patient reports that she checked her blood sugar this morning and it was in the 200s so she took 3 units of NovoLog at 8:30 AM. EMS states that when they picked the patient up her blood sugar was 354. Patient was given Zofran and a liter of fluids was started via EMS. Patient reports at this time she is having dry heaving but is not having any active vomiting. She reports that she is not been able to tolerate much p.o. fluids or food. She denies any abdominal pain or urinary symptoms. She denies fever, chills, cough, shortness of breath or chest pain. Related Data Home Medications Medication Instructions Recorded Confirmed insulin lispro [Admelog U-100 07/24/21 Insulin lispro] levonorgestrel [Mirena] INTRAUTERINE 07/24/21 Allergies Allergy/AdvReac Type Severity Reaction Status Date / Time No Known Allergies Allergy Verified 07/24/21 09:20 Review of Systems Review of Systems: CONSTITUTIONAL: Denies fever, chills, or sweats. EYES: Denies visual changes, redness, or discharge. ENT: Denies rhinorrhea, congestion, sore throat, or otalgia. CARDIOVASCULAR: Denies chest pain, palpitations, or edema. RESPIRATORY: Denies cough or dyspnea. GASTROINTESTINAL: Reports nausea and vomiting denies abdominal pain or diarrhea. GENITOURINARY: Denies dysuria or hematuria. SKIN: Denies rash or itching. MUSCULOSKELETAL: Denies back pain, joint pain, or myalgia. NEUROLOGIC: Denies headache, numbness, dizziness, or weakness. PSYCHIATRIC: Denies anxiety or depression. [facility] Past Medical History Medical History (Updated 07/24/21 @ 15:40 by Dana Pastor PA-C) Type 1 diabetes mellitus Diagnosed at the age of 7. Hemoglobin A1c was 10.8% on 08/09/2020. Surgical History Surgical History (Updated 08/09/20 @ 15:35 by Denisa Norman PA-C) History of 3 sections Family History Family History (Updated 08/09/20 @ 23:53 by Denisa Norman PA-C) Other Hypertension Social History Social History (Updated 08/09/20 @ 23:54 by Denisa Norman PA-C) Social History: The patient lives alone in [place]. She smokes about half a pack of cigarettes a day and consumes about four alcoholic beverages a week. Occasional marijuana use. She designates her father, Gomez Henry, as her surrogate decision maker and she wishes to be a full code. Smoking packs per day: 0.5 Smoking cigarettes per day: 10.0 Years smoked: 19 Smoking pack-years: 9.50 Smoking status: Current every day smoker Tobacco type: cigarettes Second hand tobacco smoke exposure: No Alcohol intake: current Drinks per week: 4 Substance use: current Substance use type: marijuana Gender identity (if verbalized by the patient): Female Spiritual care concerns: No Exam Narrative: GENERAL: Appears to feel ill, holding emesis bag. Occasional dry heaving HEAD: Normocephalic, atraumatic. EYES: PERRLA and EOMI. ENT: Nares clear, no rhinorrhea or epistaxis. Mucous membranes moist. Bilateral TMs pearly candelario nonbulging CHEST: Clear to auscultation. No respiratory distress. No wheezes rales or rhonchi HEART: Regular rate and rhythm. No murmur heard. Normal peripheral pulses. ABDOMEN: Soft, nontender, nondistended, normal active bowel sounds. EXTREMITIES: Normal range of motion. No edema. SKIN: Warm, dry, no rash
[2021-07-24 11:48] LABS: Glucose Point of Care 231 mg/dl (65-105)
[2021-07-24] MEDS: METOCLOPRAMIDE HCL INJ 10 MG/2 ML VIAL IV PUSH (11:52)
[2021-07-24 12:37] VITALS: BP 125/74; PULSE 104; RESP 16; O2SAT 100
--- NOTE | 2021-07-24 13:41 | PC.NURSE ---
Attempted to PO Challenge at 1340. Patient reports that she can not eat because her CGM says her blood sugar is 300.
[2021-07-24] MEDS: INSULIN HUMAN REGULAR (*BKC) 100 UNITS/ML SUB-Q (13:47)
[2021-07-24] MEDS: ONDANSETRON INJ 4 MG/2 ML VIAL IV PUSH (15:12)
[2021-07-24 16:08] VITALS: BP 134/89; PULSE 93; RESP 16; O2SAT 100
== END 2021-07-24 16:29 | disposition home or self-care (01) ==
PROVIDERS: Physician Assistant; Emergency Provider Emergency Medicine
DX: E10.65 Type 1 diabetes mellitus with hyperglycemia (principal); Z79.4 Long term (current) use of insulin; Z96.41 Presence of insulin pump (external) (internal); F17.210 Nicotine dependence, cigarettes, uncomplicated
CPT/HCPCS: 36415; 36600; 71045; 80053; 81001; 81025; 82010; 82805; 82948; 83690; 85025; 87086; 87088; 96361; 96374; 96375; 99284; J1815; J2405; J2765; J7030

== ENCOUNTER 2023-08-13 18:07 | Inpatient (IN) | payer OTHER, SELFPAY ==
[2023-08-13] VITALS (22 sets, daily range): BP systolic 96–146; BP diastolic 59–95; PULSE 98–133; RESP 17–26; TEMP 36.4; O2SAT 97–100
--- NOTE | ~2023-08-13 | XR_ITS ---
EXAMINATION: XR chest 1V portable DATE: 08/13/2023 20:57 INDICATION: Vomiting. Upper abdominal pain. TECHNIQUE: A single frontal view of the chest was obtained. COMPARISON: Chest single view 07/24/2021 FINDINGS: There is no pneumonia, pleural effusion, or pneumothorax. The heart size is normal. IMPRESSION: 1. No acute cardiopulmonary disease. Reviewed, dictated and finalized at location E. ERTY APPRAISER
--- NOTE | ~2023-08-13 | CT_ITS ---
EXAMINATION: CT chest abdomen pelvis w con DATE: 08/13/2023 22:27 INDICATION: Chest pain. Nausea and vomiting. Generalized abdominal pain. TECHNIQUE: Computed tomography (CT) of the chest, abdomen, and pelvis was performed with 100 mL Omnip aque 350 intravenous contrast. Automated exposure control and iterative reconstruction technique were employed. The dose-length product was 908.53 mGy-cm. COMPARISON: None FINDINGS: CHEST CT: There is no pneumonia or pleural effusion. There is a 4 mm nodule in the thyroid, likely not clinical ly significant. The heart size is normal. No pericardial effusion. There is a small sliding hiatal he rnia. There is wall thickening of the distal esophagus, consistent with esophagitis. There is mild th oracic spondylosis. ABDOMEN/PELVIS CT: There is a 6 mm cyst in liver. The gallbladder, spleen, pancreas, and adrenal glands are normal. Ther e is cortical thinning of the kidneys. There is a 3.5 cm cyst in right ovary. There are no dilated lo ops of bowel. The appendix is normal. There are no pathologically enlarged lymph nodes. There is no f ree intraperitoneal fluid. There is mild lumbar spondylosis. IMPRESSION: 1. Small sliding hiatal hernia. 2. Wall thickening of the distal esophagus, consistent with esophagitis. 3. 3.5 cm cyst in right ovary, likely a follicular cyst. Reviewed, dictated and finalized at location E. ENTIVE MEDICINE PHYSICIAN
[2023-08-13 18:46] LABS: Basophils Absolute Auto 0.1 K/mm3 (0.0-0.1); Basophils Percent Auto 0.5 % (0.2-1.2); Hematocrit 43.4 % (37.0-47.0); Hemoglobin 12.8 g/dL (12.0-15.0); Immature Granulocyte Absolute 0.07 K/mm3 (0.00-0.031); Immature Granulocyte Percent A 0.4 % (0-0.5); Lymphocytes Absolute Auto 1.73 K/mm3 (0.9-3.2); Lymphocytes Percent Auto 10.1 % (18.3-44.2); Mean Corpuscular HGB Conc 29.5 g/dl (32-36); Mean Corpuscular Hemoglobin 27.8 pg (26-34); Mean Corpuscular Volume 94.3 fl (80-100); Mean Platelet Volume 10.8 fl (7.4-10.4); Monocytes Absolute Auto 0.8 K/mm3 (0.1-0.6); Monocytes Percent Auto 4.8 % (2.6-8.5); Neutrophils Absolute Auto 14.4 K/mm3 (1.3-6.7); Neutrophils Percent Auto 84.2 % (45.5-73.1); Platelet Count Result 358 k/mm3 (150-375); Red Cell Distribution Width 16.1 % (11.5-14.5); White Blood Count 17.1 K/mm3 (4.5-10.0)
--- NOTE | 2023-08-13 18:49 | ED.GENADULT ---
HPI - General Adult General Chief complaint: Nausea/Vomiting/Diarrhea Stated complaint: N/V Time Seen by Provider: 08/13/23 18:43 Source: patient Mode of arrival: ambulatory Limitations: no limitations History of Present Illness HPI narrative: This is a 38-year-old female with PMH of T1 dm, DKA, who presents to the ED via EMS with chief complaint of abdominal pain, N/V beginning around 8:00 a.m. yesterday. Reports that she was a weekend [place] and was going out several times drinking over this weekend. Reports that she thought she was was just hung over but she has continued to have the nausea and vomiting. Reports that her insulin pump has been malfunctioning since Saturday and she has only been able to take her short-acting insulin. She has had no long-acting insulin. Reports that her sugars have been very high at home. Denies any fevers, chills, urinary problems, cough, chest pain. Related Data Home Medications Medication Instructions Recorded Confirmed insulin lispro 100 unit/mL 07/24/21 10/23/21 subcutaneous solution (Admelog U-100 Insulin lispro) levonorgestrel 21 mcg/24 hours (8 intrauterine 07/24/21 yrs) 52 mg intrauterine device (Mirena) Allergies Allergy/AdvReac Type Severity Reaction Status Date / Time No Known Allergies Allergy Verified 08/13/23 18:18 Review of Systems Review of Systems: All systems as dictated in HPI [facility] Past Medical History Medical History Type 1 diabetes mellitus Diagnosed at the age of 7. Hemoglobin A1c was 10.8% on 08/09/2020. Surgical History Surgical History History of 3 sections History of gynecological procedure 04/29/2020- mirena iud insertion - 10/23/2021 mirena iud removal -nm Family History Family History (Updated 04/01/23 @ 10:36 by Briseida Zuniga MA) Grandparent Breast cancer Other Diabetes mellitus Hypertension Social History Social History Social History: The patient lives alone in [place]. She smokes about half a pack of cigarettes a day and consumes about four alcoholic beverages a week. Occasional marijuana use. She designates her father, Gomez Henry, as her surrogate decision maker and she wishes to be a full code. Smoking packs per day: 0.5 Smoking cigarettes per day: 10.0 Years smoked: 19 Smoking pack-years: 9.50 Smoking status: Current every day smoker Tobacco type: cigarettes Second hand tobacco smoke exposure: No Alcohol intake: current Drinks per week: 4 Substance use: current Substance use type: marijuana Gender identity (if verbalized by the patient): Female Spiritual care concerns: No Exam Narrative: GENERAL: Appears in no acute distress. Dry heaving HEAD: Normocephalic, atraumatic. EYES: PERRLA and EOMI. ENT: Dried blood on the lips. Mucous membranes dry. Nares clear, no rhinorrhea or epistaxis. Oropharynx without tonsillar hypertrophy exudate or other lesions. NECK: Supple. No adenopathy or masses. CHEST: No respiratory distress. Clear to auscultation. No wheezes rales or rhonchi. no crepitus HEART: Regular rate and rhythm. No murmur heard. Normal peripheral pulses. ABDOMEN: Soft, nontender, nondistended, normal active bowel sounds. No flank tenderness bilaterally. MSK: Normal range of motion. No edema. SKIN: Warm, dry, no rash. NEURO: Alert and oriented x3. No focal deficits. PSYCH: Normal mood and affect. Course Vital Signs Vital signs: Vital Signs Temperature 97.6 F 08/13/23 18:10 Pulse Rate 113 H 08/13/23 18:10 Respiratory Rate 20 08/13/23 18:10 Blood Pressure 103/62 08/13/23 18:10 Pulse Oximetry 97 08/13/23 18:10 Oxygen Delivery Room Air 08/13/23 18:10 Temperature 97.6 F 08/13/23 18:10 Pulse Rate 124 H 08/14/23 01:00 Respiratory Rate 22 H 08/14/23
--- NOTE | 2023-08-13 18:52 | ECG_ITS ---
Measurements Intervals [facility] Rate: 108 P: 72 ND: 120 QRS: 29 QRSD: 83 T: 47 QT: 338 QTc: 453 Interpretive Statements SINUS TACHYCARDIA BASELINE ARTIFACT BORDERLINE ECG COMPARED TO ECG 08/09/2020 06:46:51 NO SIGNIFICANT CHANGES Electronically Signed On 08-14-2023 15:36:30 [employer] by Cheikh Stark M.D.
[2023-08-13] MEDS: SODIUM CHLORIDE 0.9% IV 1,000 ML 999 ML IV CONT (19:01)
--- NOTE | 2023-08-13 19:41 | PC.NURSE ---
Report from LAZ Ascencio. Pt dry heaving often, but states that zofran does not work. Pt asking where her insulin drip is. Educated pt on need for lab work results prior to starting additional meds. Pt verbalized understanding. Will continue to monitor.
[2023-08-13 20:36] LABS: Alanine Aminotransferase 21 U/L (6-35); Alkaline Phosphatase 137 U/L (38-126); Aspartate Amino Transferase 41 U/L (14-36); Blood Urea Nitrogen 12 mg/dL (7-17); Calcium 10.3 mg/dL (8.4-10.2); Carbon Dioxide < 5 mmol/L (22-30); Chloride 97 mmol/L (98-107); Estimated CRCL calculation 61 ml/min; Estimated Glomerular Filt Rate 56; Glucose 605 mg/dL (65-110); Lipase 91 U/L (23-300); Potassium 5.3 mmol/L (3.4-5.0); Sodium 135 mmol/L (137-145)
[2023-08-13] MEDS: PANTOPRAZOLE SODIUM IV 40 MG VIAL IV PUSH (21:43)
[2023-08-13] MEDS: METOCLOPRAMIDE HCL INJ 10 MG/2 ML VIAL IV PUSH (21:43)
[2023-08-13] MEDS: INSULIN HUMAN REGULAR (*BKC) 100 UNITS/ML 11 UNITS IV PUSH (21:44)
[2023-08-13 21:46] LABS: Magnesium 1.6 mg/dL (1.6-2.3); Phosphorus 6.5 mg/dL (2.5-4.5)
[2023-08-13 21:46] LABS: SPREG INTERNAL CONTROL Positive; Serum Qual hCG Negative
[2023-08-13 21:56] LABS: Fractional Inspired Oxygen 21 %; HCO3 VBG 5.7 mEq/l (24.0-30.0); PO2 VBG 43.1 mmHg (35.0-45.0)
[2023-08-13 21:58] LABS: Troponin I < 0.012 ng/mL (0.000-0.034)
[2023-08-13 21:59] LABS: pH VBG 7.033 (7.300-7.400)
[2023-08-13 22:00] LABS: Device ROOM AIR; PCO2 VBG 22.1 mmHg (42.0-48.0)
[2023-08-13 22:03] LABS: Hemoglobin A1C 8.5 % (<5.7)
[2023-08-13 22:47] LABS: Glucose Point of Care 449 mg/dl (65-105)
[2023-08-13 22:49] LABS: Glucose Point of Care 490 mg/dl (65-105)
[2023-08-14] VITALS (22 sets, daily range): BP systolic 93–155; BP diastolic 58–97; PULSE 91–133; RESP 16–26; TEMP 36.4–37.1; O2SAT 97–100; BMI 27.4
[2023-08-14 00:28] LABS: Glucose Point of Care 391 mg/dl (65-105)
[2023-08-14 00:35] LABS: Appearance Urine Clear (Clear); Bacteria Urine None Seen /hpf; Bilirubin Urine Negative (Negative); Blood Urine 1+ (Negative); Color Urine Yellow (Yellow); Glucose Urine UA 3+ mg/dL (Negative); Ketones Urine 4+ mg/dL (Negative); Leukocyte Esterase Ur Trace LEU/UL (Negative); Nitrate Urine Negative (Negative); Non Pathogenic Casts 0-2; Protein Urine 1+ mg/dL (Negative); RBC Urine 0-2 /hpf (0-2); Specific Grav Ur 1.031 (1.001-1.035); Squamous Epithelial Cell Urine Occasional /hpf (Few); Urobilinogen Urine 0.2 mg/dL (<2.0); WBC Urine 21-50 /hpf; pH Urine 5.5 (5.0-9.0)
[2023-08-14] MEDS: INSULIN HUMAN REGULAR (*BKC) 100 UNITS in SODIUM CHLORIDE 0.9% IV 99 ML 7 UNITS IV CONT (00:35)
[2023-08-14 00:43] LABS: Add Urine Microscopic? YES
[2023-08-14] MEDS: SODIUM CHLORIDE 0.9% IV 1,000 ML 150 ML IV CONT ×2 (01:46→17:15)
[2023-08-14] MEDS: SODIUM CHLORIDE 0.9% IV 500 ML IV CONT (01:52)
[2023-08-14 01:58] LABS: Glucose Point of Care 343 mg/dl (65-105)
--- NOTE | 2023-08-14 02:00 | PC.NURSE ---
This patient, Tara Hinkle, was admitted to Intensive Care Unit-3 at 0130. Patient/family oriented to hospital policies and general routines including ID bracelet, bed and alarms, visiting hours, pain management, procedures, bathroom and other care routines, personal items, smoking policy, room service/diet, and visiting hours. Information on how to activate the Rapid Response Team has been discussed. Patient/Family are encouraged to report perceived risks to care and to ask questions if they do not understand what they are told or what they should do.
[2023-08-14 02:03] LABS: Blood Urea Nitrogen 12 mg/dL (7-17); Calcium 8.9 mg/dL (8.4-10.2); Carbon Dioxide < 5 mmol/L (22-30); Chloride 109 mmol/L (98-107); Estimated CRCL calculation 57 ml/min; Estimated Glomerular Filt Rate 51; Glucose 358 mg/dL (65-110); Potassium 4.8 mmol/L (3.4-5.0); Sodium 143 mmol/L (137-145)
[2023-08-14] MEDS: ONDANSETRON INJ 4 MG/2 ML VIAL IV PUSH ×3 (02:56→19:02)
[2023-08-14] MEDS: KCL 20 MEQ/D5/0.45% SOD CHL 1,000 ML 150 ML IV CONT ×2 (03:02→15:06)
[2023-08-14 03:07] LABS: Glucose Point of Care 237 mg/dl (65-105)
[2023-08-14 04:02] LABS: Glucose Point of Care 160 mg/dl (65-105)
[2023-08-14 05:03] LABS: Glucose Point of Care 211 mg/dl (65-105)
[2023-08-14 06:04] LABS: Glucose Point of Care 260 mg/dl (65-105)
[2023-08-14 06:42] LABS: Blood Urea Nitrogen 11 mg/dL (7-17); Calcium 9.1 mg/dL (8.4-10.2); Carbon Dioxide < 5 mmol/L (22-30); Chloride 111 mmol/L (98-107); Estimated CRCL calculation 67 ml/min; Estimated Glomerular Filt Rate > 60; Glucose 264 mg/dL (65-110); Potassium 5.3 mmol/L (3.4-5.0); Sodium 144 mmol/L (137-145)
[2023-08-14 06:54] LABS: Glucose Point of Care 230 mg/dl (65-105)
[2023-08-14] MEDS: PROCHLORPERAZINE EDISYLATE 10 MG/2 ML VIAL IV PUSH ×3 (07:50→21:26)
[2023-08-14] MEDS: LACTATED RINGERS 1,000 ML 999 ML IV CONT ×3 (07:56→12:37)
[2023-08-14] MEDS: SODIUM BICARBONATE 8.4% 50 MEQ/50 ML SYRINGE IV PUSH (07:56)
[2023-08-14] MEDS: FOLIC ACID 1 MG/0.2 ML INJ IV PUSH (08:12)
[2023-08-14] MEDS: DEXTROSE 5%/0.45% SOD CHL 1,000 ML 150 ML IV CONT (08:12)
[2023-08-14] MEDS: THIAMINE HCL 200 MG/2 ML VIAL 100 MG IV PUSH (08:12)
[2023-08-14] MEDS: PANTOPRAZOLE SODIUM IV 40 MG VIAL IV PUSH ×2 (08:12→21:26)
[2023-08-14 08:21] LABS: Glucose Point of Care 220 mg/dl (65-105)
[2023-08-14 09:04] LABS: Glucose Point of Care 257 mg/dl (65-105)
[2023-08-14 09:57] LABS: Glucose Point of Care 240 mg/dl (65-105)
[2023-08-14 10:19] LABS: Anion Gap 22 mmol/L (8-16); Blood Urea Nitrogen 9 mg/dL (7-17); Calcium 8.8 mg/dL (8.4-10.2); Carbon Dioxide 10 mmol/L (22-30); Chloride 111 mmol/L (98-107); Estimated CRCL calculation 74 ml/min; Estimated Glomerular Filt Rate > 60; Glucose 246 mg/dL (65-110); Potassium 4.7 mmol/L (3.4-5.0); Sodium 143 mmol/L (137-145)
[2023-08-14 11:07] LABS: Glucose Point of Care 218 mg/dl (65-105)
[2023-08-14 12:05] LABS: Glucose Point of Care 203 mg/dl (65-105)
--- NOTE | 2023-08-14 12:32 | WPDCNINT ---
Assessment and Plan Assessment and plan (1) Diabetic ketoacidosis: Code(s): E11.10 - Type 2 diabetes mellitus with ketoacidosis without coma Status: Resolved Assessment and Plan: A patient presented with nausea, vomiting, abdominal pain, severe metabolic acidosis, hyperglycemia, elevated beta hydroxybutyrate, elevated anion gap, UA showed increase ketones and glucose -patient has been binge drinking alcohol as she was a weekend [place] on the over the weekend going from one place to another drinking. -she initially the that it was a hangover but the nausea and vomiting continued, and she realized that her insulin pump was malfunction she was only getting short-acting insulin and not long-acting insulin. -patient was given 2 L IV fluid bolus in the ER and started on insulin infusion and transfer the ICU for further management - hemoglobin A1c is 8.5 this admission -patient looked dry this morning give additional 2 L IV fluids in bolus -poor venous access, placed a right femoral line on 08/14/2023 -will her a 3rd L of IV fluid bolus and she looks dry (2) Nausea and vomiting: Code(s): R11.2 - Nausea with vomiting, unspecified Status: Acute Assessment and Plan: Continue to alternate Zofran and Compazine 08/13/2023 CT scan of the chest abdomen pelvis showed 1. Small sliding hiatal hernia. 2. Wall thickening of the distal esophagus, consistent with esophagitis. 3. 3.5 cm cyst in right ovary, likely a follicular cyst. (3) Esophagitis: Code(s): K20.90 - Esophagitis, unspecified without bleeding Status: Acute Assessment and Plan: Continue Protonix IV q.12 hours Plan DVT prophylaxis: Lovenox Stress ulcer prophylaxis: Protonix Nutrition: NPO Code Status: Full code Critical Care Time Spent: 51 minutes Due to a high probability of clinically significant, life threatening deterioration, the patient required my highest level of preparedness to intervene emergently and I personally spent this critical care time directly and personally managing the patient. This critical care time included obtaining a history; examining the patient; pulse oximetry; ordering and review of studies; arranging urgent treatment with development of a management plan; evaluation of patient's response to treatment; frequent reassessment; and discussions with other providers. It was exclusive of separately billable procedures and treating other patients and teaching time. Please see Assessment and Plan section and the rest of the note for further information on patient assessment and treatment This dictation may have been done utilizing a voice recognition system. Attempts have been made to correct errors. However, there may be uncorrected grammatical, spelling, and recognitions errors present. Organizational Development Manager Consult Note Consult date: 08/14/23 Reason for consult: Diabetic ketoacidosis, nausea, vomiting, abdominal pain, binge alcohol drinking, malfunction of her insulin pump HPI: Tara Hinkle is a 38 year old female with past medical history diabetes diagnosed at age 7, presented the ED on 08/13/2023 with complains of abdominal pain, nausea, vomiting x1 day. Over the weekend she went on 7 times drinking. Initially thought that she was home over but continued to have nausea and vomiting. Reported that her insulin pump was malfunctioning and she was only able to take her short-acting insulin. She had no long-acting insulin in the ER patient's blood sugars were 500, elevated anion gap, elevated beta hydroxybutyrate, urine analysis showed ketones and glucose. Patient was given 2 L IV fluid bolus in the ER and transferred to the ICU for further management after being started on insulin infusion per DKA protocol Patient seen examined this morning in the ICU, he continues to have severe nausea and vomiting and retching. Complains of burning sensation in the epigastrium. Does not feel well. I have asked the bedside RN to give additio
--- NOTE | 2023-08-14 12:36 | P.PCNBED_ITS ---
Procedures Central Line Placement Right Femoral: Central Line Date: 08/14/23 Central Line Time: 12:28 Discussed w/ the patient/family/POA,the placement of a central venous catheter, including its clinical necessity/indication & associated potential risks, benifits and alternatives.: Yes Consent: I have discussed with the patient and/or surrogate, the non-emergent placement of a central venous catheter, including its clinical necessity/indication and associated potential risks and complications. The patient and/or surrogate understand(s) and acknowledge(s) the need to proceed with central venous catheter insertion as an important element of the patient's clinical management. Time Out Performed: Yes Patient Position: supine Patient placed on monitor/pulse ox: Yes Provider Prep: mask, sterile gown, sterile gloves, Max. sterile barrier precautions, cap and hand hygiene with conventional soap/water or alcohol based hand rub Central line prep: 2% Chlorhexidine scrub Local anesthesia used: lidocaine 2% Amount of anesthesia used (ml): 4 Sterile US Technique with sterile gel/sterile probe covers: Yes Central line lumen inserted: triple [place]: 12 Length (cm): 20 Depth of Insertion (cm): 20 Post Procedure: sutured in place, good blood return, all ports aspirated, flushed, capped, transparent dressing, hemostatic product, antimicrobial product, securement product and aseptic technique maintained throughout procedure Patient tolerated procedure: well Complications: none
[2023-08-14 13:11] LABS: Glucose Point of Care 183 mg/dl (65-105)
[2023-08-14] MEDS: CENTRAL LINE FLUSH 10 ML IV PUSH ×2 (14:02→21:34)
[2023-08-14 14:03] LABS: Glucose Point of Care 189 mg/dl (65-105)
[2023-08-14 14:18] LABS: Anion Gap 14 mmol/L (8-16); Blood Urea Nitrogen 7 mg/dL (7-17); Calcium 8.3 mg/dL (8.4-10.2); Carbon Dioxide 14 mmol/L (22-30); Chloride 110 mmol/L (98-107); Estimated CRCL calculation 93 ml/min; Estimated Glomerular Filt Rate > 60; Glucose 224 mg/dL (65-110); Potassium 3.6 mmol/L (3.4-5.0); Sodium 138 mmol/L (137-145)
[2023-08-14 14:41] LABS: Anion Gap 14 mmol/L (8-16); Blood Urea Nitrogen 7 mg/dL (7-17); Calcium 8.2 mg/dL (8.4-10.2); Carbon Dioxide 15 mmol/L (22-30); Chloride 110 mmol/L (98-107); Estimated CRCL calculation 93 ml/min; Estimated Glomerular Filt Rate > 60; Glucose 204 mg/dL (65-110); Potassium 3.8 mmol/L (3.4-5.0); Sodium 139 mmol/L (137-145)
--- NOTE | 2023-08-14 14:43 | PM.IMHP ---
H&P: HPI History of Present Illness Date/Time: 08/14/23 14:43 Chief Complaint: nausea and vomiting Narrative: 38F w/ PMH IDDM diagnosed at age 7 presented to [place] ED w/ nausea and vomiting x1 day. The weekend prior she was bar hopping and reports about 8 hard liquor shots per night. She does this just about every weekend. She had n/v shortly after however also discovered her insulin pump was malfunctioning and was only getting short acting insulin. In the ER the pt received 2L fluid bolus ceftriaxone and insulin gtt was started. In the ICU she has had critical care consultation, given another 1L fluid bolus and placed on the DKA protocol. She also received a femoral TLC because of poor IV access. In ICU 3 the patient appears lethargic and reports she still feels weak and somewhat nauseous. Review of Systems Review of Systems: All systems reviewed & are unremarkable except as noted in HPI and below PMFSH Past Medical History Medical History Type 1 diabetes mellitus Diagnosed at the age of 7. Hemoglobin A1c was 10.8% on 08/09/2020. Surgical History Surgical History History of 3 sections History of gynecological procedure 04/29/2020- mirena iud insertion - 10/23/2021 mirena iud removal -nm Family History Family History (Updated 08/14/23 @ 01:58 by Denise Rm RN) Grandparent Breast cancer Father Diabetes mellitus Other Hypertension Social History Social History Social History: The patient lives alone in [place]. She smokes about half a pack of cigarettes a day and consumes about four alcoholic beverages a week. Occasional marijuana use. She designates her father, Gomez Henry, as her surrogate decision maker and she wishes to be a full code. Smoking packs per day: 1 Smoking cigarettes per day: 20.0 Years smoked: 19 Smoking pack-years: 19.00 Smoking status: Current every day smoker Tobacco type: cigarettes Second hand tobacco smoke exposure: No Alcohol intake: current Drinks per week: 25 Substance use: current Substance use type: marijuana Last use: 08/12/23 Do You Feel Safe in your Home?: Yes Lack of Transportation: YES Lack of Food: Never True Current Housing: I Have Housing Concerned About Future Housing: No Difficulty Paying Gas/Electric Bills: No Difficulty Paying for Meds: No Currently Unemployed: No Education: High School Diploma/GED Difficulty w/ Childcare or Family Care: No Gender identity (if verbalized by the patient): Female Spiritual care concerns: No Meds Home Medications and Allergies Home Medications Medication Instructions Recorded Confirmed Type ondansetron 4 mg disintegrating 4 mg PO Q6H PRN nausea and 07/24/21 08/14/23 Rx tablet vomiting #14 tabs famotidine 20 mg tablet 20 mg PO BID 08/14/23 08/14/23 History gabapentin 300 mg capsule 300 mg PO HS 08/14/23 08/14/23 History insulin lispro 100 unit/mL See Rx Instructions .Route .COMPLEX 08/14/23 08/14/23 History subcutaneous solution (Humalog U-100 Insulin) Allergies Allergy/AdvReac Type Severity Reaction Status Date / Time No Known Allergies Allergy Verified 08/13/23 18:18 Vital Signs Vital Signs - 24 hr 08/13/23 18:10 08/13/23 18:46 08/13/23 18:47 Temperature 97.6 F Pulse Rate 113 H 98 102 H Respiratory Rate 20 17 23 H Blood Pressure 103/62 122/95 H Pulse Oximetry 97 Oxygen Delivery Room Air 08/13/23 19:00 08/13/23 19:01 08/13/23 19:15 Temperature Pulse Rate 108 H 107 H 117 H Respiratory Rate 24 H 22 H 22 H Blood Pressure 96/59 L Pulse Oximetry Oxygen Delivery 08/13/23 19:30 08/13/23 19:45 08/13/23 20:19 Temperature Pulse Rate 108 H 111 H 116 H Respiratory Rate 20 20 20 Blood Pressure Pulse Oximetry Oxygen Delivery
[2023-08-14 15:07] LABS: Glucose Point of Care 212 mg/dl (65-105)
[2023-08-14 16:08] LABS: Glucose Point of Care 260 mg/dl (65-105)
[2023-08-14 17:17] LABS: Glucose Point of Care 257 mg/dl (65-105)
[2023-08-14 18:03] LABS: Glucose Point of Care 193 mg/dl (65-105)
[2023-08-14 18:18] LABS: Anion Gap 14 mmol/L (8-16); Blood Urea Nitrogen 6 mg/dL (7-17); Calcium 8.3 mg/dL (8.4-10.2); Carbon Dioxide 16 mmol/L (22-30); Chloride 107 mmol/L (98-107); Estimated CRCL calculation 93 ml/min; Estimated Glomerular Filt Rate > 60; Glucose 212 mg/dL (65-110); Potassium 3.6 mmol/L (3.4-5.0); Sodium 137 mmol/L (137-145)
[2023-08-14] MEDS: HYDROmorphone HCL INJ (*CRX) 1 MG/ML SYR 0.25 MG IV PUSH (18:58)
[2023-08-14 19:02] LABS: Glucose Point of Care 211 mg/dl (65-105)
[2023-08-14 20:06] LABS: Glucose Point of Care 223 mg/dl (65-105)
[2023-08-14 21:29] LABS: Glucose Point of Care 210 mg/dl (65-105)
[2023-08-14] MEDS: LORazepam INJ (*CRX) 2 MG/ML VIAL IV PUSH (22:24)
[2023-08-14 22:25] LABS: Glucose Point of Care 202 mg/dl (65-105)
[2023-08-14 22:44] LABS: Anion Gap 10 mmol/L (8-16); Blood Urea Nitrogen 4 mg/dL (7-17); Calcium 8.2 mg/dL (8.4-10.2); Carbon Dioxide 20 mmol/L (22-30); Chloride 105 mmol/L (98-107); Estimated CRCL calculation 108 ml/min; Estimated Glomerular Filt Rate > 60; Glucose 205 mg/dL (65-110); Potassium 3.4 mmol/L (3.4-5.0); Sodium 135 mmol/L (137-145)
[2023-08-14] MEDS: INSULIN GLARGINE (*BKC) 100 UNITS/ML 20 UNITS SUB-Q (23:05)
[2023-08-14 23:11] LABS: Glucose Point of Care 197 mg/dl (65-105)
[2023-08-15] VITALS (12 sets, daily range): BP systolic 127–171; BP diastolic 62–96; PULSE 92–113; RESP 14–21; TEMP 36.8–36.9; O2SAT 18–100; BMI 27.4
[2023-08-15 00:24] LABS: Glucose Point of Care 169 mg/dl (65-105)
[2023-08-15] MEDS: LACTATED RINGERS 1,000 ML 75 ML IV CONT (01:08)
[2023-08-15 01:11] LABS: Glucose Point of Care 150 mg/dl (65-105)
[2023-08-15] MEDS: ONDANSETRON INJ 4 MG/2 ML VIAL IV PUSH ×2 (03:52→18:34)
[2023-08-15 04:56] LABS: Glucose Point of Care 266 mg/dl (65-105)
[2023-08-15 05:02] LABS: Basophils Percent Auto 0.2 % (0.2-1.2); Eosinophils Percent Auto 0.1 % (0-4.4); Hematocrit 32.8 % (37.0-47.0); Hemoglobin 10.2 g/dL (12.0-15.0); Immature Granulocyte Absolute 0.05 K/mm3 (0.00-0.031); Immature Granulocyte Percent A 0.4 % (0-0.5); Lymphocytes Absolute Auto 0.69 K/mm3 (0.9-3.2); Lymphocytes Percent Auto 5.5 % (18.3-44.2); Mean Corpuscular HGB Conc 31.1 g/dl (32-36); Mean Corpuscular Hemoglobin 28.2 pg (26-34); Mean Corpuscular Volume 90.6 fl (80-100); Monocytes Absolute Auto 0.8 K/mm3 (0.1-0.6); Monocytes Percent Auto 6.6 % (2.6-8.5); Neutrophils Absolute Auto 10.9 K/mm3 (1.3-6.7); Neutrophils Percent Auto 87.2 % (45.5-73.1); Platelet Count Result 212 k/mm3 (150-375); Red Blood Count 3.62 M/mm3 (4.2-5.4); Red Cell Distribution Width 15.7 % (11.5-14.5); White Blood Count 12.5 K/mm3 (4.5-10.0)
[2023-08-15 05:18] LABS: Alanine Aminotransferase 29 U/L (6-35); Albumin Level 3.9 g/dL (3.5-5.1); Alkaline Phosphatase 103 U/L (38-126); Anion Gap 18 mmol/L (8-16); Aspartate Amino Transferase 61 U/L (14-36); Bilirubin,Total 0.8 mg/dL (0.2-1.3); Blood Urea Nitrogen 3 mg/dL (7-17); Calcium 8.2 mg/dL (8.4-10.2); Carbon Dioxide 14 mmol/L (22-30); Chloride 100 mmol/L (98-107); Estimated CRCL calculation 93 ml/min; Estimated Glomerular Filt Rate > 60; Glucose 296 mg/dL (65-110); Magnesium 1.1 mg/dL (1.6-2.3); Phosphorus 1.9 mg/dL (2.5-4.5); Potassium 3.3 mmol/L (3.4-5.0); Sodium 132 mmol/L (137-145)
[2023-08-15] MEDS: CENTRAL LINE FLUSH 10 ML IV PUSH ×3 (06:07→20:17)
[2023-08-15] MEDS: PROCHLORPERAZINE EDISYLATE 10 MG/2 ML VIAL IV PUSH (06:30)
[2023-08-15] MEDS: SODIUM CHLORIDE 0.9% IV 1,000 ML 150 ML IV CONT (06:41)
[2023-08-15] MEDS: INSULIN HUMAN REGULAR (*BKC) 100 UNITS in SODIUM CHLORIDE 0.9% IV 99 ML 7 UNITS IV CONT (06:41)
[2023-08-15 07:26] LABS: Lipase 293 U/L (23-300)
[2023-08-15 08:10] LABS: Glucose Point of Care 225 mg/dl (65-105)
[2023-08-15] MEDS: PANTOPRAZOLE SODIUM IV 40 MG VIAL IV PUSH ×2 (08:11→20:17)
[2023-08-15] MEDS: KCL 40 MEQ/WATER 100 ML 100 ML 25 ML IVPB (08:11)
[2023-08-15] MEDS: ENOXAPARIN 40 MG/0.4 ML SYRINGE SUB-Q (08:11)
[2023-08-15] MEDS: METOCLOPRAMIDE HCL INJ 10 MG/2 ML VIAL IV PUSH ×3 (08:11→18:12)
[2023-08-15] MEDS: THIAMINE HCL 200 MG/2 ML VIAL 100 MG IV PUSH (08:11)
[2023-08-15] MEDS: MAGNESIUM SULFATE 3GM/D5W100ML 3 GM/100 ML BAG IVPB (08:11)
[2023-08-15] MEDS: FOLIC ACID 1 MG/0.2 ML INJ IV PUSH (08:11)
[2023-08-15] MEDS: KCL 20 MEQ/D5/0.45% SOD CHL 1,000 ML 150 ML IV CONT ×3 (08:12→23:00)
[2023-08-15 08:59] LABS: Glucose Point of Care 197 mg/dl (65-105)
[2023-08-15 10:25] LABS: Anion Gap 12 mmol/L (8-16); Blood Urea Nitrogen 3 mg/dL (7-17); Calcium 8.3 mg/dL (8.4-10.2); Carbon Dioxide 18 mmol/L (22-30); Chloride 105 mmol/L (98-107); Estimated CRCL calculation 93 ml/min; Estimated Glomerular Filt Rate > 60; Glucose 196 mg/dL (65-110); Potassium 3.4 mmol/L (3.4-5.0); Sodium 135 mmol/L (137-145)
[2023-08-15 10:56] LABS: Magnesium 2.7 mg/dL (1.6-2.3)
[2023-08-15 11:05] LABS: Glucose Point of Care 209 mg/dl (65-105)
--- NOTE | 2023-08-15 11:20 | PCDIET ---
Physician consult for DKA. See Nutritional Teaching Intervention. Thank for the consult.
[2023-08-15 11:21] LABS: Appearance Urine Cloudy (Clear); Bacteria Urine Rare /hpf; Bilirubin Urine Negative (Negative); Blood Urine 2+ (Negative); Color Urine Yellow (Yellow); Glucose Urine UA 3+ mg/dL (Negative); Ketones Urine 4+ mg/dL (Negative); Leukocyte Esterase Ur 2+ LEU/UL (NEGATIVE); Nitrate Urine Negative (Negative); Non Pathogenic Casts 0-2; Protein Urine 1+ mg/dL (Negative); RBC Urine 0-2 /hpf (0-2); Squamous Epithelial Cell Urine Occasional /hpf (Few); Urobilinogen Urine 0.2 mg/dL (<2.0); WBC Urine 51-100 /hpf (0-3); pH Urine 5.5 (5.0-9.0)
[2023-08-15 11:23] LABS: Add Urine Microscopic? YES
[2023-08-15] MEDS: POTASSIUM PHOS,M-BASIC-D-BASIC 20 MMOL in SODIUM CHLORIDE 0.9% IV 250 ML 64.17 MMOL IVPB (12:17)
--- NOTE | 2023-08-15 12:18 | WPDINTPN ---
Progress Note: A&P Assessment and Plan (1) Diabetic ketoacidosis: Code(s): E11.10 - Type 2 diabetes mellitus with ketoacidosis without coma Status: Resolved Assessment and Plan: A patient presented with nausea, vomiting, abdominal pain, severe metabolic acidosis, hyperglycemia, elevated beta hydroxybutyrate, elevated anion gap, UA showed increase ketones and glucose -patient has been binge drinking alcohol as she was a weekend [place] on the over the weekend going from one place to another drinking. -she initially the that it was a hangover but the nausea and vomiting continued, and she realized that her insulin pump was malfunction she was only getting short-acting insulin and not long-acting insulin. -patient was given 2 L IV fluid bolus in the ER and started on insulin infusion and transfer the ICU for further management - hemoglobin A1c is 8.5 this admission -patient looked dry this morning give additional 2 L IV fluids in bolus -poor venous access, placed a right femoral line on 08/14/2023, after which an additional IV fluid bolus was given -08/14: In the evening patient was transition to long-acting insulin sliding scale insulin -08/15: Blood sugars were elevated, she had anion gap metabolic acidosis on restarted on insulin infusion (2) Nausea and vomiting: Code(s): R11.2 - Nausea with vomiting, unspecified Status: Acute Assessment and Plan: Continue Zofran -discontinued Compazine -started her on Reglan -lipase is within normal limits -have consulted GI 08/13/2023 CT scan of the chest abdomen pelvis showed 1. Small sliding hiatal hernia. 2. Wall thickening of the distal esophagus, consistent with esophagitis. 3. 3.5 cm cyst in right ovary, likely a follicular cyst. (3) Esophagitis: Code(s): K20.90 - Esophagitis, unspecified without bleeding Status: Acute Assessment and Plan: Continue Protonix IV q.12 hours Plan DVT prophylaxis: Lovenox Stress ulcer prophylaxis: Protonix Nutrition: NPO Code Status: Full code Critical Care Time Spent: 33 minutes Due to a high probability of clinically significant, life threatening deterioration, the patient required my highest level of preparedness to intervene emergently and I personally spent this critical care time directly and personally managing the patient. This critical care time included obtaining a history; examining the patient; pulse oximetry; ordering and review of studies; arranging urgent treatment with development of a management plan; evaluation of patient's response to treatment; frequent reassessment; and discussions with other providers. It was exclusive of separately billable procedures and treating other patients and teaching time. Please see Assessment and Plan section and the rest of the note for further information on patient assessment and treatment This dictation may have been done utilizing a voice recognition system. Attempts have been made to correct errors. However, there may be uncorrected grammatical, spelling, and recognitions errors present. Subjective Date/time seen: 08/15/23 12:18 Interval history: Reason for consult: Diabetic ketoacidosis, nausea, vomiting, abdominal pain, binge alcohol drinking, malfunction of her insulin pump 08/15/2023: Patient seen and examined the ICU, was transition to long-acting insulin and sliding scale insulin last night, this morning she again had anion gap metabolic acidosis, so insulin infusion restarted. Patient has received adequate amount of IV fluids, urine output has been adequate. Patient continues to have nausea, retching, small amounts of bile in her vomitus. Denies any trouble breathing, complains of epigastric tenderness. Lipase this morning has been normal. Patient had low potassium, magnesium and phosphorus. Patient does not know how much basal insulin she takes on her pump. Review of Systems Review of Systems: All systems reviewed & are unremarkable
[2023-08-15 12:42] LABS: Glucose Point of Care 255 mg/dl (65-105)
[2023-08-15 13:07] LABS: Glucose Point of Care 231 mg/dl (65-105)
--- NOTE | 2023-08-15 14:18 | WPDGICN ---
Assessment and Plan Assessment and plan (1) Nausea and vomiting: Code(s): R11.2 - Nausea with vomiting, unspecified Status: Acute Assessment and Plan: Patient with ongoing nausea and vomiting. This appears to be related to her electrolyte imbalance associated with diabetic ketoacidosis. Also associated with rather heavy drinking over the weekend. Plan for supportive care IV fluids at present. Perhaps a trial of metoclopramide be be of some benefit. NG tube placement may help decompress the stomach although currently soft flat in nursing staff reports mainly dry heaves at this juncture. (2) Diabetic ketoacidosis: Code(s): E11.10 - Type 2 diabetes mellitus with ketoacidosis without coma Status: Resolved Assessment and Plan: patient admitted with diabetic ketoacidosis. She remains on insulin drip. This appears be the etiology of her protracted nausea vomiting. (3) Alcohol abuse: Code(s): F10.10 - Alcohol abuse, uncomplicated Status: Acute Assessment and Plan: Patient with heavy alcohol intake over the weekend. This potentially also contributes to not only the DKA but to the protracted nausea and vomiting. Limiting alcohol in take may be of benefit. Watch for signs of withdrawal if necessary. (4) Esophagitis: Code(s): K20.90 - Esophagitis, unspecified without bleeding Status: Acute Assessment and Plan: CT scan imaging reveals esophagitis. This is most consistent with her ongoing vomiting. IV pantoprazole will be implemented should be continued. Investigation of felt warranted at this time. GI Consult Note Consult date/time: 08/15/23 14:18 Reason for consult: Nausea and vomiting HPI: Tara Hinkle is a 38 year old female I am asked to see at the request of the drainage design coordinator. Patient admitted to the hospital yesterday with protracted nausea vomiting. Patient has a history of diabetes mellitus. Over the weekend she when out binge drinking. patient began to have nausea vomiting on Saturday that persisted until yesterday when she presented to the hospital. She was found to have rather severe metabolic acidosis felt to be in diabetic ketoacidosis. Pain patient remains on an insulin drip and has continued to have significant nausea. Patient denies a fever. She denies any prior abdominal surgery. She has no prior history of ulcer disease. Family history is noncontributory. CT scan in the hospital reveals esophagitis consistent with her vomiting Review of Systems Review of Systems: review of systems noncontributory. Patient does admit to occasional marijuana use. [facility] Past Medical History Medical History Type 1 diabetes mellitus Diagnosed at the age of 7. Hemoglobin A1c was 10.8% on 08/09/2020. Surgical History Surgical History History of 3 sections History of gynecological procedure 04/29/2020- mirena iud insertion - 10/23/2021 mirena iud removal -nm Family History Family History (Updated 08/14/23 @ 01:58 by Denise Rm RN) Grandparent Breast cancer Father Diabetes mellitus Other Hypertension Social History Social History Social History: The patient lives alone in [place]. She smokes about half a pack of cigarettes a day and consumes about four alcoholic beverages a week. Occasional marijuana use. She designates her father, Gomez Henry, as her surrogate decision maker and she wishes to be a full code. Smoking packs per day: 1 Smoking cigarettes per day: 20.0 Years smoked: 19 Smoking pack-years: 19.00 Smoking status: Current every day smoker Tobacco type: cigarettes Second hand tobacco smoke exposure: No Alcohol intake: current Drinks per week: 25 Substance use: current Substance use type: marijuana Last use:
[2023-08-15 14:35] LABS: Anion Gap 14 mmol/L (8-16); Blood Urea Nitrogen 3 mg/dL (7-17); Calcium 8.6 mg/dL (8.4-10.2); Carbon Dioxide 18 mmol/L (22-30); Chloride 103 mmol/L (98-107); Estimated CRCL calculation 108 ml/min; Estimated Glomerular Filt Rate > 60; Glucose 217 mg/dL (65-110); Potassium 3.9 mmol/L (3.4-5.0); Sodium 135 mmol/L (137-145)
[2023-08-15 14:55] LABS: Glucose Point of Care 194 mg/dl (65-105)
[2023-08-15 16:10] LABS: Glucose Point of Care 234 mg/dl (65-105)
[2023-08-15 17:08] LABS: Glucose Point of Care 245 mg/dl (65-105)
[2023-08-15 18:46] LABS: Anion Gap 11 mmol/L (8-16); Calcium 7.9 mg/dL (8.4-10.2); Carbon Dioxide 19 mmol/L (22-30); Chloride 101 mmol/L (98-107); Estimated CRCL calculation 127 ml/min; Estimated Glomerular Filt Rate > 60; Glucose 253 mg/dL (65-110); Potassium 4.1 mmol/L (3.4-5.0); Sodium 131 mmol/L (137-145)
[2023-08-15 20:07] LABS: Glucose Point of Care 226 mg/dl (65-105)
[2023-08-15 20:11] LABS: Blood Urea Nitrogen < 2 mg/dL (7-17)
[2023-08-15] MEDS: LORazepam INJ (*CRX) 2 MG/ML VIAL IV PUSH (20:17)
[2023-08-15] MEDS: CALCIUM CARBONATE (TUMS) 500 MG (200 MG ELEMENTAL) PO (20:33)
[2023-08-15 21:08] LABS: Glucose Point of Care 260 mg/dl (65-105)
[2023-08-15] MEDS: PHARMACIST COMMUNICATION ORDER 1 EACH XX (21:45)
[2023-08-15 22:05] LABS: Glucose Point of Care 236 mg/dl (65-105)
[2023-08-15] MEDS: INSULIN HUMAN REGULAR (*BKC) 100 UNITS in SODIUM CHLORIDE 0.9% IV 99 ML IV CONT (22:05)
[2023-08-15 23:14] LABS: Anion Gap 7 mmol/L (8-16); Calcium 8.1 mg/dL (8.4-10.2); Carbon Dioxide 23 mmol/L (22-30); Chloride 101 mmol/L (98-107); Estimated CRCL calculation 127 ml/min; Estimated Glomerular Filt Rate > 60; Glucose 200 mg/dL (65-110); Potassium 3.4 mmol/L (3.4-5.0); Sodium 131 mmol/L (137-145)
[2023-08-15 23:19] LABS: Blood Urea Nitrogen < 2 mg/dL (7-17)
[2023-08-16] VITALS (15 sets, daily range): BP systolic 107–167; BP diastolic 70–100; PULSE 91–120; RESP 15–27; TEMP 36.6–37.3; O2SAT 98–100; BMI 27.4
[2023-08-16 00:16] LABS: Glucose Point of Care 262 mg/dl (65-105)
[2023-08-16] MEDS: METOCLOPRAMIDE HCL INJ 10 MG/2 ML VIAL IV PUSH ×4 (00:19→17:20)
[2023-08-16 01:15] LABS: Glucose Point of Care 207 mg/dl (65-105)
[2023-08-16 03:21] LABS: Glucose Point of Care 160 mg/dl (65-105)
[2023-08-16 04:39] LABS: Glucose Point of Care 176 mg/dl (65-105)
[2023-08-16] MEDS: CENTRAL LINE FLUSH 10 ML IV PUSH ×3 (04:42→20:15)
[2023-08-16 04:43] LABS: Basophils Percent Auto 0.4 % (0.2-1.2); Eosinophils Percent Auto 0.3 % (0-4.4); Hematocrit 34.1 % (37.0-47.0); Immature Granulocyte Absolute 0.04 K/mm3 (0.00-0.031); Immature Granulocyte Percent A 0.5 % (0-0.5); Lymphocytes Absolute Auto 1.07 K/mm3 (0.9-3.2); Lymphocytes Percent Auto 13.6 % (18.3-44.2); Mean Corpuscular HGB Conc 32.3 g/dl (32-36); Mean Corpuscular Volume 86.8 fl (80-100); Mean Platelet Volume 9.6 fl (7.4-10.4); Monocytes Absolute Auto 0.9 K/mm3 (0.1-0.6); Monocytes Percent Auto 11.2 % (2.6-8.5); Neutrophils Absolute Auto 5.8 K/mm3 (1.3-6.7); Platelet Count Result 192 k/mm3 (150-375); Red Blood Count 3.93 M/mm3 (4.2-5.4); Red Cell Distribution Width 14.8 % (11.5-14.5); White Blood Count 7.8 K/mm3 (4.5-10.0)
[2023-08-16] MEDS: ONDANSETRON INJ 4 MG/2 ML VIAL IV PUSH ×3 (04:49→21:37)
[2023-08-16 06:26] LABS: Glucose Point of Care 204 mg/dl (65-105)
[2023-08-16] MEDS: KCL 20 MEQ/D5/0.45% SOD CHL 1,000 ML 150 ML IV CONT (06:58)
[2023-08-16 07:22] LABS: Glucose Point of Care 252 mg/dl (65-105)
[2023-08-16 08:04] LABS: Glucose Point of Care 244 mg/dl (65-105)
[2023-08-16 08:56] LABS: Glucose Point of Care 194 mg/dl (65-105)
[2023-08-16 09:10] LABS: Alanine Aminotransferase 49 U/L (6-35); Albumin Level 3.9 g/dL (3.5-5.1); Alkaline Phosphatase 123 U/L (38-126); Anion Gap 10 mmol/L (8-16); Aspartate Amino Transferase 100 U/L (14-36); Bilirubin,Total 0.7 mg/dL (0.2-1.3); Calcium 8.7 mg/dL (8.4-10.2); Carbon Dioxide 23 mmol/L (22-30); Chloride 96 mmol/L (98-107); Estimated CRCL calculation 108 ml/min; Estimated Glomerular Filt Rate > 60; Glucose 220 mg/dL (65-110); Lipase 158 U/L (23-300); Magnesium 1.8 mg/dL (1.6-2.3); Phosphorus 1.9 mg/dL (2.5-4.5); Potassium 3.7 mmol/L (3.4-5.0); Sodium 129 mmol/L (137-145)
[2023-08-16 09:14] LABS: Blood Urea Nitrogen < 2 mg/dL (7-17)
[2023-08-16] MEDS: THIAMINE HCL 200 MG/2 ML VIAL 100 MG IV PUSH (09:45)
[2023-08-16] MEDS: PANTOPRAZOLE SODIUM IV 40 MG VIAL IV PUSH ×2 (09:45→20:13)
[2023-08-16] MEDS: CALCIUM CARBONATE (TUMS) 500 MG (200 MG ELEMENTAL) PO ×2 (09:45→16:41)
[2023-08-16] MEDS: FOLIC ACID 1 MG/0.2 ML INJ IV PUSH (09:45)
[2023-08-16] MEDS: ENOXAPARIN 40 MG/0.4 ML SYRINGE SUB-Q (09:45)
[2023-08-16 09:50] LABS: Glucose Point of Care 266 mg/dl (65-105)
[2023-08-16 10:59] LABS: Glucose Point of Care 215 mg/dl (65-105)
[2023-08-16] MEDS: INSULIN GLARGINE (*BKC) 100 UNITS/ML 40 UNITS SUB-Q (11:21)
--- NOTE | 2023-08-16 11:33 | PCFNICU ---
ICU Rounding Note: Pt current nutrition is Clear liquid advance to CC. Last recorded weight is 72.5 kg. Bowel Motility:+BM reported 08/12 Labs Reviewed:Hct 34.1,Hgb 11.0, Glu 220 Meds Noted:Lantus, Reglan,Folic Acid,Lovenox,Zofran, Protonix Skin: WNL Additional Notes: Patient has advanced to a clear liquid diet-10% noted on intake. GI consult for nausea and vomiting. She has been seen by block hacker. Agree with diet order for advancing as tolerated to diabetic diet. Following daily in ICU rounds.
[2023-08-16 12:13] LABS: Glucose Point of Care 235 mg/dl (65-105)
--- NOTE | 2023-08-16 12:48 | WPDINTPN ---
Progress Note: A&P Assessment and Plan (1) Diabetic ketoacidosis: Code(s): E11.10 - Type 2 diabetes mellitus with ketoacidosis without coma Status: Resolved Assessment and Plan: A patient presented with nausea, vomiting, abdominal pain, severe metabolic acidosis, hyperglycemia, elevated beta hydroxybutyrate, elevated anion gap, UA showed increase ketones and glucose -patient has been binge drinking alcohol as she was a weekend [place] on the over the weekend going from one place to another drinking. -she initially the that it was a hangover but the nausea and vomiting continued, and she realized that her insulin pump was malfunction she was only getting short-acting insulin and not long-acting insulin. -patient was given 2 L IV fluid bolus in the ER and started on insulin infusion and transfer the ICU for further management - hemoglobin A1c is 8.5 this admission -patient looked dry this morning give additional 2 L IV fluids in bolus -poor venous access, placed a right femoral line on 08/14/2023, after which an additional IV fluid bolus was given -08/14: In the evening patient was transition to long-acting insulin sliding scale insulin -08/15: Blood sugars were elevated, she had anion gap metabolic acidosis on restarted on insulin infusion -08/16: Patient remains on insulin infusion 1 unit/hour, anion gap is closed, CO2 is 23. Patient states she feels better. Continues to have mild nausea but no vomiting. She is unaware of how much basal insulin she takes on her insulin pump. -will transition patient to long-acting insulin Lantus 40 units, high-dose sliding scale. Will start diabetic diet with clears to advance as tolerated -for nausea and vomiting also related to delayed gastric emptying secondary to diabetes for which she is on Reglan now (2) Nausea and vomiting: Code(s): R11.2 - Nausea with vomiting, unspecified Status: Acute Assessment and Plan: Continue Zofran -discontinued Compazine -started her on Reglan -lipase is within normal limits -appreciate GI evaluation and record the patient 08/13/2023 CT scan of the chest abdomen pelvis showed 1. Small sliding hiatal hernia. 2. Wall thickening of the distal esophagus, consistent with esophagitis. 3. 3.5 cm cyst in right ovary, likely a follicular cyst. (3) Esophagitis: Code(s): K20.90 - Esophagitis, unspecified without bleeding Status: Acute Assessment and Plan: Continue Protonix IV q.12 hours -continue Tums Plan DVT prophylaxis: Lovenox Stress ulcer prophylaxis: Protonix Nutrition: Start clear liquid diet, advanced as tolerated to diabetic diet Code Status: Full code Critical Care Time Spent: 32 minutes Due to a high probability of clinically significant, life threatening deterioration, the patient required my highest level of preparedness to intervene emergently and I personally spent this critical care time directly and personally managing the patient. This critical care time included obtaining a history; examining the patient; pulse oximetry; ordering and review of studies; arranging urgent treatment with development of a management plan; evaluation of patient's response to treatment; frequent reassessment; and discussions with other providers. It was exclusive of separately billable procedures and treating other patients and teaching time. Please see Assessment and Plan section and the rest of the note for further information on patient assessment and treatment This dictation may have been done utilizing a voice recognition system. Attempts have been made to correct errors. However, there may be uncorrected grammatical, spelling, and recognitions errors present. Subjective Date/time seen: 08/16/23 12:48 Interval history: Reason for consult: Diabetic ketoacidosis, nausea, vomiting, abdominal pain, binge alcohol drinking, malfunction of her insulin pump 08/16/2023: Patient seen examined the ICU. Did have fewer episodes o
--- NOTE | 2023-08-16 13:36 | WPDGIPROGNO ---
Progress Note: A&P Assessment and Plan (1) Nausea and vomiting: Code(s): R11.2 - Nausea with vomiting, unspecified Status: Acute Assessment and Plan: Patient reports nausea and vomiting began to subside. This is related to her DKA. Hopefully as acidosis and electrolytes improve the nausea & vomiting will improve as well. She may also have a component of nausea vomiting related to her recent alcohol binge drinking. (2) Esophagitis: Code(s): K20.90 - Esophagitis, unspecified without bleeding Status: Acute Assessment and Plan: Esophagitis was described on her CT scan. This is certainly related to her vomiting. No additional therapy warranted. Continuing her her on pantoprazole for a period time may be beneficial. (3) Alcohol abuse: Code(s): F10.10 - Alcohol abuse, uncomplicated Status: Acute Assessment and Plan: Alcohol avoidance will be helpful going forward to prevent similar recurrence of symptoms. (4) DKA (diabetic ketoacidoses): Code(s): E11.10 - Type 2 diabetes mellitus with ketoacidosis without coma Status: Acute Subjective Date/time seen: 08/16/23 13:36 Interval history: Patient still remains somewhat nauseated. She states that she feels somewhat better today compared to yesterday. She has been on continuous insulin drip. Start to have intermittent insulin at this time. Review of Systems Review of Systems: Review of systems noncontributory. Exam Narrative: Physical exam reveals patient be alert. Vital signs stable. HEENT exam reveals no icterus. Lungs are clear. Heart without murmur. Abdomen soft flat nontender. Objective Data Vital Signs Vital Signs: Vital Signs - 24 hr 08/15/23 14:00 08/15/23 14:00 08/15/23 16:00 Temperature Pulse Rate 107 H 107 H 102 H Pulse Rate [Monitor] Respiratory Rate 16 Blood Pressure 148/89 H Pulse Oximetry 100 Oxygen Delivery 08/15/23 16:00 08/15/23 16:00 08/15/23 16:00 Temperature 98.3 F Pulse Rate 94 Pulse Rate [Monitor] Respiratory Rate 18 Blood Pressure 156/84 H 156/84 H Pulse Oximetry 99 99 Oxygen Delivery Room Air 08/15/23 18:00 08/15/23 18:00 08/15/23 20:00 Temperature Pulse Rate 97 97 100 Pulse Rate [Monitor] Respiratory Rate 14 Blood Pressure 129/77 Pulse Oximetry 99 Oxygen Delivery 08/15/23 20:00 08/15/23 20:00 08/15/23 20:00 Temperature 98.2 F Pulse Rate 100 102 H Pulse Rate [Monitor] Respiratory Rate 14 21 H Blood Pressure 171/91 H 171/91 H Pulse Oximetry 99 99 Oxygen Delivery Room Air 08/15/23 22:00 08/15/23 22:00 08/16/23 00:00 Temperature Pulse Rate 102 H 92 98 Pulse Rate [Monitor] Respiratory Rate 20 Blood Pressure 147/96 H Pulse Oximetry 99 Oxygen Delivery 08/16/23 00:00 08/16/23 00:00 08/16/23 00:00 Temperature Pulse Rate 98 98 Pulse Rate [Monitor] Respiratory Rate 20 20 Blood Pressure 134/78 160/90 H Pulse Oximetry 99 99 Oxygen Delivery Room Air 08/16/23 02:00 08/16/23 02:00 08/16/23 04:00 Temperature Pulse Rate 98 98 98 Pulse Rate [Monitor] Respiratory Rate 21 H Blood Pressure 155/92 H Pulse Oximetry 100 Oxygen Delivery 08/16/23 04:00 08/16/23 04:00 08/16/23 04:00 Temperature 97.8 F Pulse Rate 100 100 Pulse Rate [Monitor] Respiratory Rate 20 20 Blood Pressure 155/89 H 158/89 H Pulse Oximetry 100 100 Oxygen Delivery Room Air 08/16/23 06:00 08/16/23 06:00 08/16/23 07:39 Temperature 98.9 F Pulse Rate 96 98 95 Pulse Rate [Monitor] Respiratory Rate 18 18 Blood Pressure 107/70 107/70 Pulse Oximetry 99 99 Oxygen Delivery 08/16/23 09:59 08/16/23 12:00 08/16/23 08:00 Temperature 99.1 F Pulse Rate 98 91 99 Pulse Rate [Monitor] Respiratory Rate 27 H 17 Blood Pressure 153/87 H 158/100 H Pulse Oximetry 99 100 Oxygen Delivery 08/16/23 10:00 08/16/23 12:00
[2023-08-16 13:56] LABS: Glucose Point of Care 191 mg/dl (65-105)
[2023-08-16 15:05] LABS: Glucose Point of Care 197 mg/dl (65-105)
[2023-08-16 16:56] LABS: Anion Gap 11 mmol/L (8-16); Calcium 8.7 mg/dL (8.4-10.2); Carbon Dioxide 24 mmol/L (22-30); Chloride 95 mmol/L (98-107); Estimated CRCL calculation 127 ml/min; Estimated Glomerular Filt Rate > 60; Glucose 202 mg/dL (65-110); Potassium 3.5 mmol/L (3.4-5.0); Sodium 130 mmol/L (137-145)
[2023-08-16 16:58] LABS: Glucose Point of Care 206 mg/dl (65-105)
[2023-08-16] MEDS: INSULIN ASPART (*BKC) 100 UNITS/ML SUB-Q (17:20)
[2023-08-16 17:28] LABS: Blood Urea Nitrogen < 2 mg/dL (7-17)
[2023-08-16 20:23] LABS: Glucose Point of Care 123 mg/dl (65-105)
[2023-08-16] MEDS: LORazepam INJ (*CRX) 2 MG/ML VIAL IV PUSH (21:39)
[2023-08-17] VITALS (8 sets, daily range): BP systolic 111–157; BP diastolic 75–100; PULSE 96–121; RESP 15–20; TEMP 36.1–37.1; O2SAT 99–100
[2023-08-17] MEDS: METOCLOPRAMIDE HCL INJ 10 MG/2 ML VIAL IV PUSH ×3 (00:59→13:22)
[2023-08-17] MEDS: hydrALAZINE HCL 20 MG/ML VIAL 10 MG IV PUSH ×2 (01:00→07:03)
[2023-08-17] MEDS: CALCIUM CARBONATE (TUMS) 500 MG (200 MG ELEMENTAL) PO ×3 (01:06→13:21)
[2023-08-17] MEDS: CENTRAL LINE FLUSH 10 ML IV PUSH ×2 (06:52→13:22)
[2023-08-17 06:59] LABS: Basophils Percent Auto 0.3 % (0.2-1.2); Eosinophils Percent Auto 0.5 % (0-4.4); Hematocrit 36.4 % (37.0-47.0); Hemoglobin 12.1 g/dL (12.0-15.0); Immature Granulocyte Absolute 0.03 K/mm3 (0.00-0.031); Immature Granulocyte Percent A 0.4 % (0-0.5); Lymphocytes Absolute Auto 1.46 K/mm3 (0.9-3.2); Lymphocytes Percent Auto 19.9 % (18.3-44.2); Mean Corpuscular HGB Conc 33.2 g/dl (32-36); Mean Corpuscular Hemoglobin 28.2 pg (26-34); Mean Corpuscular Volume 84.8 fl (80-100); Mean Platelet Volume 10.1 fl (7.4-10.4); Monocytes Percent Auto 13.1 % (2.6-8.5); Neutrophils Absolute Auto 4.8 K/mm3 (1.3-6.7); Neutrophils Percent Auto 65.8 % (45.5-73.1); Platelet Count Result 236 k/mm3 (150-375); Red Blood Count 4.29 M/mm3 (4.2-5.4); Red Cell Distribution Width 14.6 % (11.5-14.5); White Blood Count 7.4 K/mm3 (4.5-10.0)
[2023-08-17 07:46] LABS: Alanine Aminotransferase 59 U/L (6-35); Albumin Level 3.8 g/dL (3.5-5.1); Alkaline Phosphatase 102 U/L (38-126); Anion Gap 9 mmol/L (8-16); Aspartate Amino Transferase 105 U/L (14-36); Bilirubin,Total 0.7 mg/dL (0.2-1.3); Blood Urea Nitrogen 4 mg/dL (7-17); Calcium 8.8 mg/dL (8.4-10.2); Carbon Dioxide 28 mmol/L (22-30); Chloride 93 mmol/L (98-107); Estimated CRCL calculation 108 ml/min; Estimated Glomerular Filt Rate > 60; Glucose 219 mg/dL (65-110); Magnesium 1.6 mg/dL (1.6-2.3); Phosphorus 2.9 mg/dL (2.5-4.5); Potassium 3.5 mmol/L (3.4-5.0); Sodium 130 mmol/L (137-145)
[2023-08-17 08:01] LABS: Glucose Point of Care 282 mg/dl (65-105)
[2023-08-17] MEDS: PANTOPRAZOLE SODIUM IV 40 MG VIAL IV PUSH ×2 (08:13→20:24)
[2023-08-17] MEDS: INSULIN ASPART (*BKC) 100 UNITS/ML SUB-Q (08:13)
[2023-08-17] MEDS: ENOXAPARIN 40 MG/0.4 ML SYRINGE SUB-Q (08:13)
[2023-08-17] MEDS: FOLIC ACID 1 MG/0.2 ML INJ IV PUSH (08:14)
[2023-08-17] MEDS: THIAMINE HCL 200 MG/2 ML VIAL 100 MG IV PUSH (08:14)
--- NOTE | 2023-08-17 09:02 | WPDINTPN ---
Progress Note: A&P Assessment and Plan (1) Diabetic ketoacidosis: Code(s): E11.10 - Type 2 diabetes mellitus with ketoacidosis without coma Status: Resolved Assessment and Plan: A patient presented with nausea, vomiting, abdominal pain, severe metabolic acidosis, hyperglycemia, elevated beta hydroxybutyrate, elevated anion gap, UA showed increase ketones and glucose -patient has been binge drinking alcohol as she was a weekend [place] on the over the weekend going from one place to another drinking. -she initially the that it was a hangover but the nausea and vomiting continued, and she realized that her insulin pump was malfunction she was only getting short-acting insulin and not long-acting insulin. -patient was given 2 L IV fluid bolus in the ER and started on insulin infusion and transfer the ICU for further management - hemoglobin A1c is 8.5 this admission -patient looked dry this morning give additional 2 L IV fluids in bolus -poor venous access, placed a right femoral line on 08/14/2023, after which an additional IV fluid bolus was given -08/14: In the evening patient was transition to long-acting insulin sliding scale insulin -08/15: Blood sugars were elevated, she had anion gap metabolic acidosis on restarted on insulin infusion -08/16: Patient remains on insulin infusion 1 unit/hour, anion gap is closed, CO2 is 23. Patient states she feels better. Continues to have mild nausea but no vomiting. She is unaware of how much basal insulin she takes on her insulin pump. -will transition patient to long-acting insulin Lantus 40 units, high-dose sliding scale. Will start diabetic diet with clears to advance as tolerated -for nausea and vomiting also related to delayed gastric emptying secondary to diabetes for which she is on Reglan now 08/17: Will increase Lantus to 45 units (2) Nausea and vomiting: Code(s): R11.2 - Nausea with vomiting, unspecified Status: Acute Assessment and Plan: Continue Zofran -discontinued Compazine -continue Reglan -lipase is within normal limits -appreciate GI evaluation and record the patient 08/17: Will recheck lipase given patient's history of alcohol use/abuse -will discuss with GI Off note: Patient does state that she has been having nausea and vomiting even prior to coming to the hospital for DKA 08/13/2023 CT scan of the chest abdomen pelvis showed 1. Small sliding hiatal hernia. 2. Wall thickening of the distal esophagus, consistent with esophagitis. 3. 3.5 cm cyst in right ovary, likely a follicular cyst. (3) Esophagitis: Code(s): K20.90 - Esophagitis, unspecified without bleeding Status: Acute Assessment and Plan: Continue Protonix IV q.12 hours -continue Tums Plan DVT prophylaxis: Lovenox Stress ulcer prophylaxis: Protonix Nutrition: Continue diabetic diet as tolerated Code Status: Full code Critical Care Time Spent: 32 minutes Patient may transfer out of the ICU Due to a high probability of clinically significant, life threatening deterioration, the patient required my highest level of preparedness to intervene emergently and I personally spent this critical care time directly and personally managing the patient. This critical care time included obtaining a history; examining the patient; pulse oximetry; ordering and review of studies; arranging urgent treatment with development of a management plan; evaluation of patient's response to treatment; frequent reassessment; and discussions with other providers. It was exclusive of separately billable procedures and treating other patients and teaching time. Please see Assessment and Plan section and the rest of the note for further information on patient assessment and treatment This dictation may have been done utilizing a voice recognition system. Attempts have been made to correct errors. However, there may be uncorrected grammatical, spelling, and recognitions errors present. Subjective
[2023-08-17] MEDS: INSULIN GLARGINE (*BKC) 100 UNITS/ML 45 UNITS SUB-Q (09:23)
[2023-08-17 09:46] LABS: Lipase 120 U/L (23-300)
[2023-08-17] MEDS: FAMOTIDINE 20 MG TABLET PO ×2 (10:01→20:21)
[2023-08-17] MEDS: LORazepam INJ (*CRX) 2 MG/ML VIAL IV PUSH (13:21)
[2023-08-17 16:26] LABS: Glucose Point of Care 147 mg/dl (65-105)
[2023-08-17 16:41] LABS: Glucose Point of Care 63 mg/dl (65-105)
[2023-08-17 17:04] LABS: Glucose Point of Care 126 mg/dl (65-105)
[2023-08-17] MEDS: BELLADONNA ALK/PHENOB ELIX 10 ML, MAG HYDROX/ALUMINUM HYD/SIMETH 30 ML, LIDOCAINE HCL 2... PO (18:21)
[2023-08-17] MEDS: ONDANSETRON INJ 4 MG/2 ML VIAL IV PUSH (18:28)
[2023-08-17 20:38] LABS: Glucose Point of Care 146 mg/dl (65-105)
[2023-08-18] MEDS: CENTRAL LINE FLUSH 10 ML IV PUSH ×4 (00:11→21:22)
[2023-08-18] MEDS: METOCLOPRAMIDE HCL INJ 10 MG/2 ML VIAL IV PUSH ×5 (00:21→23:42)
[2023-08-18 00:36] LABS: Glucose Point of Care 107 mg/dl (65-105)
[2023-08-18 00:36] LABS: Glucose Point of Care 69 mg/dl (65-105)
[2023-08-18] MEDS: ONDANSETRON INJ 4 MG/2 ML VIAL IV PUSH (03:04)
[2023-08-18] MEDS: CALCIUM CARBONATE (TUMS) 500 MG (200 MG ELEMENTAL) PO ×2 (03:06→14:02)
--- NOTE | 2023-08-18 04:13 | PC.NURSE ---
Pt. blood glucose has dropped down below 70 two times over night. Pt. is having a hard time keeping any food or drink down.
[2023-08-18 06:00] VITALS: BP 131/87; PULSE 116; RESP 20; TEMP 36; O2SAT 99
[2023-08-18 08:09] LABS: Glucose Point of Care 144 mg/dl (65-105)
[2023-08-18] MEDS: BELLADONNA ALK/PHENOB ELIX 10 ML, MAG HYDROX/ALUMINUM HYD/SIMETH 30 ML, LIDOCAINE HCL 2... PO ×2 (10:42→17:05)
[2023-08-18] MEDS: THIAMINE HCL 200 MG/2 ML VIAL 100 MG IV PUSH (10:45)
[2023-08-18] MEDS: PANTOPRAZOLE SODIUM IV 40 MG VIAL IV PUSH ×2 (10:46→21:22)
[2023-08-18] MEDS: ENOXAPARIN 40 MG/0.4 ML SYRINGE SUB-Q (10:47)
[2023-08-18] MEDS: FAMOTIDINE 20 MG TABLET PO ×2 (10:47→21:22)
[2023-08-18] MEDS: INSULIN GLARGINE (*BKC) 100 UNITS/ML 45 UNITS SUB-Q (10:50)
[2023-08-18] MEDS: FOLIC ACID 1 MG/0.2 ML INJ IV PUSH (10:50)
[2023-08-18 11:10] LABS: Basophils Percent Auto 0.4 % (0.2-1.2); Eosinophils Absolute Auto 0.1 K/mm3 (0-0.3); Eosinophils Percent Auto 1.1 % (0-4.4); Hematocrit 36.5 % (37.0-47.0); Hemoglobin 11.7 g/dL (12.0-15.0); Immature Granulocyte Absolute 0.02 K/mm3 (0.00-0.031); Immature Granulocyte Percent A 0.4 % (0-0.5); Lymphocytes Percent Auto 19.5 % (18.3-44.2); Mean Corpuscular HGB Conc 32.1 g/dl (32-36); Mean Corpuscular Hemoglobin 27.6 pg (26-34); Mean Corpuscular Volume 86.1 fl (80-100); Mean Platelet Volume 10.4 fl (7.4-10.4); Monocytes Absolute Auto 0.8 K/mm3 (0.1-0.6); Monocytes Percent Auto 14.2 % (2.6-8.5); Neutrophils Absolute Auto 3.7 K/mm3 (1.3-6.7); Neutrophils Percent Auto 64.4 % (45.5-73.1); Platelet Count Result 209 k/mm3 (150-375); Red Blood Count 4.24 M/mm3 (4.2-5.4); Red Cell Distribution Width 14.9 % (11.5-14.5); White Blood Count 5.7 K/mm3 (4.5-10.0)
[2023-08-18 11:25] LABS: Beta-Hydroxybutyrate/Acetoacetate 0.75 mmol/L (0.02-0.27)
[2023-08-18 11:54] LABS: Alanine Aminotransferase 69 U/L (6-35); Albumin Level 3.9 g/dL (3.5-5.1); Alkaline Phosphatase 102 U/L (38-126); Anion Gap 7 mmol/L (8-16); Aspartate Amino Transferase 108 U/L (14-36); Bilirubin,Total 0.6 mg/dL (0.2-1.3); Blood Urea Nitrogen 10 mg/dL (7-17); Calcium 9.2 mg/dL (8.4-10.2); Carbon Dioxide 33 mmol/L (22-30); Chloride 91 mmol/L (98-107); Estimated CRCL calculation 74 ml/min; Estimated Glomerular Filt Rate > 60; Glucose 157 mg/dL (65-110); Magnesium 1.7 mg/dL (1.6-2.3); Phosphorus 3.4 mg/dL (2.5-4.5); Potassium 3.1 mmol/L (3.4-5.0); Sodium 131 mmol/L (137-145)
[2023-08-18] MEDS: SUCRALFATE SUSP 100 MG/ML 10 ML UDC 1000 MG PO ×3 (12:12→21:22)
[2023-08-18] MEDS: LACTATED RINGERS 1,000 ML 75 ML IV CONT (12:12)
[2023-08-18 12:20] LABS: Glucose Point of Care 187 mg/dl (65-105)
--- NOTE | 2023-08-18 13:36 | PM.IMPN ---
Progress Note: A&P Assessment and Plan (1) Diabetic ketoacidosis: Code(s): E11.10 - Type 2 diabetes mellitus with ketoacidosis without coma Status: Resolved Assessment and Plan: A patient presented with nausea, vomiting, abdominal pain, severe metabolic acidosis, hyperglycemia, elevated beta hydroxybutyrate, elevated anion gap, UA showed increase ketones and glucose -patient has been binge drinking alcohol as she was a weekend [place] on the over the weekend going from one place to another drinking. -she initially the that it was a hangover but the nausea and vomiting continued, and she realized that her insulin pump was malfunction she was only getting short-acting insulin and not long-acting insulin. -patient was given 2 L IV fluid bolus in the ER and started on insulin infusion and transfer the ICU for further management - hemoglobin A1c is 8.5 this admission -patient looked dry this morning give additional 2 L IV fluids in bolus -poor venous access, placed a right femoral line on 08/14/2023, after which an additional IV fluid bolus was given -08/14: In the evening patient was transition to long-acting insulin sliding scale insulin -08/15: Blood sugars were elevated, she had anion gap metabolic acidosis on restarted on insulin infusion -08/16: Patient remains on insulin infusion 1 unit/hour, anion gap is closed, CO2 is 23. Patient states she feels better. Continues to have mild nausea but no vomiting. She is unaware of how much basal insulin she takes on her insulin pump. -will transition patient to long-acting insulin Lantus 40 units, high-dose sliding scale. Will start diabetic diet with clears to advance as tolerated -for nausea and vomiting also related to delayed gastric emptying secondary to diabetes for which she is on Reglan now 08/17: Will increase Lantus to 45 units (2) Nausea and vomiting: Code(s): R11.2 - Nausea with vomiting, unspecified Status: Acute Assessment and Plan: Continue Zofran -discontinued Compazine -continue Reglan -lipase is within normal limits -appreciate GI evaluation and record the patient 08/17: Will recheck lipase given patient's history of alcohol use/abuse -will discuss with GI Off note: Patient does state that she has been having nausea and vomiting even prior to coming to the hospital for DKA 08/13/2023 CT scan of the chest abdomen pelvis showed 1. Small sliding hiatal hernia. 2. Wall thickening of the distal esophagus, consistent with esophagitis. 3. 3.5 cm cyst in right ovary, likely a follicular cyst. 08/18: reports improvement with GI cocktail, will add sucralfate. Reglan continues. Haldol IV ordered backup for continued nausea vomiting (3) Esophagitis: Code(s): K20.90 - Esophagitis, unspecified without bleeding Status: Acute Assessment and Plan: Continue Protonix IV q.12 hours -continue Tums 08/18: add sucralfate Plan DVT prophylaxis: Lovenox Stress ulcer prophylaxis: Protonix Nutrition: Continue diabetic diet as tolerated Code Status: Full code Potassium 3.1 today, ordered IV replacement Time Spent With Patient Time with patient: 25 - 35 minutes Subjective Date/time seen: 08/18/23 13:36 Interval history: 08/18: Patient moved out of the ICU, not on IV fluids. She reports that she is still continuously vomiting all oral intake. She reports that she feels hungry but is not able eat and that it has been 7 days since she has eaten. 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 Patient reports that she feels like something else is wrong with her stomach, like a door is shut and not letting things through. Patient wondering if she will see GI doctor again. She reports some relief with GI cocktail. This is ordered b.i.d. p.r.n. We will also add sucralfate to see if this helps her. She is already on scheduled Reglan. We will add Haldol IV p.r.n. and restart IV fluids. Review of Sys
[2023-08-18 14:00] VITALS: BP 110/73; PULSE 117; RESP 16; TEMP 35.5; O2SAT 100
[2023-08-18] MEDS: FLUCONAZOLE 150 MG TABLET PO (14:03)
[2023-08-18] MEDS: KCL 40 MEQ/WATER 100 ML 100 ML 25 ML IVPB (14:03)
[2023-08-18 16:52] LABS: Glucose Point of Care 75 mg/dl (65-105)
[2023-08-18 20:00] VITALS: BP 118/77; PULSE 96
[2023-08-18] MEDS: GABAPENTIN 300 MG CAPSULE PO (21:22)
[2023-08-18 22:00] VITALS: BP 118/77; PULSE 96; RESP 20; TEMP 36.5; O2SAT 100
[2023-08-18 22:29] LABS: Glucose Point of Care 77 mg/dl (65-105)
[2023-08-19 01:26] LABS: Glucose Point of Care 106 mg/dl (65-105)
[2023-08-19] MEDS: LACTATED RINGERS 1,000 ML 75 ML IV CONT (01:32)
--- NOTE | 2023-08-19 05:59 | PC.NURSE ---
Dayanna cabrales RN called DO Hopen about pulling patients femoral line, patient has IV access L wrist 22. Awaiting call back.
[2023-08-19 06:00] VITALS: BP 100/65; PULSE 100; RESP 20; TEMP 36.6; O2SAT 100
[2023-08-19] MEDS: METOCLOPRAMIDE HCL INJ 10 MG/2 ML VIAL IV PUSH (06:06)
[2023-08-19 06:07] LABS: Basophils Percent Auto 0.5 % (0.2-1.2); Eosinophils Absolute Auto 0.3 K/mm3 (0-0.3); Hematocrit 33.3 % (37.0-47.0); Hemoglobin 10.7 g/dL (12.0-15.0); Immature Granulocyte Absolute 0.03 K/mm3 (0.00-0.031); Immature Granulocyte Percent A 0.4 % (0-0.5); Lymphocytes Absolute Auto 0.73 K/mm3 (0.9-3.2); Mean Corpuscular HGB Conc 32.1 g/dl (32-36); Mean Corpuscular Hemoglobin 27.9 pg (26-34); Mean Corpuscular Volume 86.7 fl (80-100); Mean Platelet Volume 10.1 fl (7.4-10.4); Monocytes Absolute Auto 0.8 K/mm3 (0.1-0.6); Monocytes Percent Auto 10.6 % (2.6-8.5); Neutrophils Absolute Auto 5.4 K/mm3 (1.3-6.7); Neutrophils Percent Auto 74.5 % (45.5-73.1); Platelet Count Result 194 k/mm3 (150-375); Red Blood Count 3.84 M/mm3 (4.2-5.4); Red Cell Distribution Width 14.9 % (11.5-14.5); White Blood Count 7.3 K/mm3 (4.5-10.0)
[2023-08-19] MEDS: CENTRAL LINE FLUSH 10 ML IV PUSH (06:07)
[2023-08-19] MEDS: SUCRALFATE SUSP 100 MG/ML 10 ML UDC 1000 MG PO ×2 (06:07→11:45)
[2023-08-19 06:17] LABS: Alanine Aminotransferase 56 U/L (6-35); Albumin Level 3.2 g/dL (3.5-5.1); Alkaline Phosphatase 81 U/L (38-126); Anion Gap 4 mmol/L (8-16); Aspartate Amino Transferase 83 U/L (14-36); Bilirubin,Total 0.5 mg/dL (0.2-1.3); Blood Urea Nitrogen 8 mg/dL (7-17); Calcium 8.2 mg/dL (8.4-10.2); Carbon Dioxide 32 mmol/L (22-30); Chloride 96 mmol/L (98-107); Estimated CRCL calculation 74 ml/min; Estimated Glomerular Filt Rate > 60; Glucose 92 mg/dL (65-110); Magnesium 1.8 mg/dL (1.6-2.3); Phosphorus 3.4 mg/dL (2.5-4.5); Potassium 3.6 mmol/L (3.4-5.0); Sodium 132 mmol/L (137-145)
[2023-08-19 08:00] VITALS: PULSE 110
[2023-08-19 08:14] LABS: Glucose Point of Care 71 mg/dl (65-105)
[2023-08-19 08:21] LABS: Beta-Hydroxybutyrate/Acetoacetate 0.06 mmol/L (0.02-0.27)
[2023-08-19] MEDS: BELLADONNA ALK/PHENOB ELIX 10 ML, MAG HYDROX/ALUMINUM HYD/SIMETH 30 ML, LIDOCAINE HCL 2... PO (09:28)
[2023-08-19] MEDS: NEOMYCIN/POLYMYXIN/BACITRACIN OINTMENT PACKET 1 PACKET (09:30)
[2023-08-19] MEDS: THIAMINE HCL 200 MG/2 ML VIAL 100 MG IV PUSH (09:31)
[2023-08-19] MEDS: PANTOPRAZOLE SODIUM IV 40 MG VIAL IV PUSH (09:31)
[2023-08-19] MEDS: ENOXAPARIN 40 MG/0.4 ML SYRINGE SUB-Q (09:31)
[2023-08-19] MEDS: INSULIN GLARGINE (*BKC) 100 UNITS/ML 45 UNITS SUB-Q (09:32)
[2023-08-19] MEDS: FOLIC ACID 1 MG/0.2 ML INJ IV PUSH (09:33)
[2023-08-19] MEDS: FAMOTIDINE 20 MG TABLET PO (09:35)
--- NOTE | 2023-08-19 11:10 | PM.DS ---
DS: Admitting Diagnosis Discharge Date 08/19/2023 Admitting Diagnosis esophagitis, nausea vomiting, DKA DS: Discharge Diagnosis Discharge Diagnosis (1) Diabetic ketoacidosis: Code(s): E11.10 - Type 2 diabetes mellitus with ketoacidosis without coma Status: Resolved (2) Nausea and vomiting: Code(s): R11.2 - Nausea with vomiting, unspecified Status: Acute (3) Esophagitis: Code(s): K20.90 - Esophagitis, unspecified without bleeding Status: Acute DS: Summary Hospital Course Reason for hospitalization: DKA Hospital Course: this is a 38-year-old female patient insulin-dependent diabetic wears a continuous glucose monitor as well as insulin pump. Her website project manager for her insulin pump was broken so she was not able to use it for a while. Prior to coming to the hospital patient was having nausea and vomiting for several days unable to keep down food or fluids. Patient arrived she was found to be in florid DKA. Patient was admitted on insulin drip to the ICU where she remained for several days before transitioning out to the general floor. Even transfer out to the general floor patient was not maintaining oral intake so IV fluids had to be restarted. Some changes were made to nausea medication as well as liberalized diet to carb controlled. Because insulin pump was working correctly she was started on Lantus and up titrated to 45 units daily as well as sliding scale insulin. Patient did receive 45 units of Lantus on day of discharge and her blood sugars were very well controlled. Her nausea and vomiting subsided after starting more liberalized diet. Patient agreed she was feeling better. She will follow-up GI to discuss EGD future. Prescriptions written nausea medication as well as sucralfate. Patient instructed to insulin in the Due to receiving Lantus today. Do not want cause hypoglycemic event. Now the patient is tolerating food and fluids she should be able to maintain hydration status as long as she follows diet restrictions. Status at Discharge Cognitive/behavioral status at discharge: Awake alert oriented Functional status at discharge: independent ambulation Overall status at discharge: patient is back to baseline Time Spent with Patient Time attestation: Total time spent providing and/or coordinating discharge services: 40 minutes Time spent: Greater than 30 minutes Exam Narrative: General: awake alert oriented and pleasant. Generally well-appearing today. HEENT:? Pupils equal reactive, sclera is clear, moist oral mucosa Neck:? Supple Respiratory:? Clear to auscultation bilaterally Cardiac:? S1-S2 normal, sinus tachycardia Abdomen:? Soft, nondistended, normoactive bowel sounds, Extremities:? No edema, palpable pedal pulses Neuro:? Patient is awake, alert, oriented, nonfocal Skin:? Multiple tattoos but no other skin lesion Psych:? Normal mentation and Normal affect DS: Data Data Completed and Pending Completed studies during hospitalization: chest x-ray, chest abdomen pelvis CT Labs on day of discharge: Labs from last 24 hours 08/19/23 08/19/23 08/19/23 08:10 05:54 00:59 WBC 7.3 RBC 3.84 L Hgb 10.7 L Hct 33.3 L MCV 86.7 MCH 27.9 MCHC 32.1 RDW 14.9 H Plt Count 194 MPV 10.1 Immature Gran % (Auto) 0.4 Neut % (Auto) 74.5 H Lymph % (Auto) 10.0 L [place] % (Auto) 10.6 H Eos % (Auto) 4.0 Baso % (Auto) 0.5 Lymph # (Auto) 0.73 L [place] # (Auto) 0.8 H Eos # (Auto) 0.3 Baso # (Auto) 0.0 Abs Immat Gran (auto) 0.03 Absolute Neuts (auto) 5.4 Absolute Nucleated RBC 0.0 Nucleated RBC % 0.0 Sodium 132 L Potassium 3.6 Chloride 96 L Carbon Dioxide 32 H Anion Gap 4 L BUN 8 Creatinine 0.90 Estim Creat Clear Calc 74 Estimated GFR > 60 Glucose 92 POC Capillary Glucose 71 106 H Calcium 8.2 L Phosphorus 3.4 Magnesium 1.8 Total Bilirubin 0.5 AST 83 H A
[2023-08-19] MEDS: ACETAMINOPHEN 325 MG TABLET 650 MG PO (11:45)
[2023-08-19 11:48] LABS: Glucose Point of Care 95 mg/dl (65-105)
[2023-08-19 12:00] VITALS: PULSE 88
[2023-08-19 14:46] VITALS: BMI 37.0
== END 2023-08-19 14:05 | disposition home or self-care (01) | DRG 420 ==
LOC: ANHED 18:53 → ANHICU 08-14 00:28 → ANH3MEDSUR 08-17 11:55
PROVIDERS: Emergency Medicine; Internal Medicine; Admitting Provider Internal Medicine; Emergency Provider Physician Assistant; Visit Provider Nurse Practitioner
DX: E10.10 Type 1 diabetes mellitus with ketoacidosis without coma (principal); E10.69 Type 1 diabetes mellitus with other specified complication; E83.39 Other disorders of phosphorus metabolism; E87.6 Hypokalemia; E83.42 Hypomagnesemia; K30 Functional dyspepsia; K20.90 Esophagitis, unspecified without bleeding; R11.2 Nausea with vomiting, unspecified; F10.10 Alcohol abuse, uncomplicated; F12.90 Cannabis use, unspecified, uncomplicated; F17.210 Nicotine dependence, cigarettes, uncomplicated; Z96.41 Presence of insulin pump (external) (internal)
CPT/HCPCS: 36415; 71045; 71260; 74177; 80048; 80053; 81001; 82010; 82803; 82948; 83036; 83690; 83735; 84100; 84484; 84703; 85025; 87086; 87088; 93005; 96361; 96365; 96366; 96367; 96374; 96375; 96376; 99285; A9270; C1751; C9113; G0378; J0360; J0696; J0780; J1170; J1650; J1815; J2060; J2405; J2765; J3411; J3475; J3480; J7030; J7040; J7050; J7120; Q9967

== ENCOUNTER 2024-04-19 18:19 | Inpatient (IN) | payer OTHER, SELFPAY ==
--- NOTE | ~2024-04-19 | CT_ITS ---
EXAMINATION: CT abdomen pelvis wo con DATE: 04/22/2024 09:42 INDICATION: Abdominal pain TECHNIQUE: Computed tomography (CT) of the abdomen and pelvis was performed without intravenous contr ast. Automated exposure control and iterative reconstruction technique were employed. The dose-length product was 472.09 mGy-cm. COMPARISON: 04/20/2024 FINDINGS: Lung bases are clear. Heart size is normal. No pericardial or pleural effusion. Small sliding-type hi atal hernia. Liver, gallbladder, spleen, pancreas, bilateral adrenal glands and kidneys are normal. B owels including the appendix are normal. Bladder, anteverted uterus and right adnexa are normal. A co uple small calcifications and a 1.8 cm dominant follicle versus cyst at the left ovary. No free intra peritoneal gas or fluid. No pathologically enlarged abdominal or pelvic lymphadenopathy. Mild lumbar spondylosis. IMPRESSION: 1. No acute intra-abdominal/pelvic process. 2. Small sliding-type hiatal hernia. 3. Couple small calcifications at the left ovary which could represent phleboliths or an ovarian derm oid. Reviewed, dictated and finalized at location [facility]. IMPRESSION: 1. No acute intra-abdominal/pelvic process. 2. Small sliding-type hiatal hernia. 3. Couple small calcifications at the left ovary which could represent phleboli ths or an ovarian dermoid.
--- NOTE | ~2024-04-19 | CT_ITS ---
CT of the Abdomen and Pelvis: Indication: Abdominal pain Technique: 2.5 mm axial scans were obtained through the abdomen and pelvis following intravenous adm inistration of 100 cc of Omnipaque 350. Dose reduction technique was used on this scan by utilizing a utomated exposure control and iterative reconstruction technique. The dose-length product (DLP) was 3 98.51 mGy-cm. COMPARISON: 08/13/2023 Findings: Scans through the lung bases are unremarkable. The liver, spleen, pancreas, gallbladder, adrenals and kidneys are within normal limits. No evidence of aortic aneurysm. No lymphadenopathy. No bowel obstruction or bowel wall thickening. There is no evidence to suggest acute appendicitis. Images through the pelvis were performed. Urinary bladder unremarkable. Probable 2.4 cm left adnexal cyst or possibly dermoid. No other adnexal mass seen. No ascites. Impression: No acute abnormality identified. Probable 2.4 cm left adnexal cyst versus dermoid. Reviewed, dictated and finalized at [facility]. Impression: No acute abnormality identified. Probable 2.4 cm left adnexal cyst versus dermoid.
[2024-04-19 18:19] VITALS: BP 132/78; PULSE 102; RESP 16; TEMP 36.6; O2SAT 100
[2024-04-19] MEDS: ONDANSETRON INJ 4 MG/2 ML VIAL IV PUSH (21:00)
[2024-04-19 21:20] LABS: Basophils Percent Auto 0.1 % (0.2-1.2); Eosinophils Percent Auto 0.1 % (0-4.4); Hematocrit 39.3 % (37.0-47.0); Hemoglobin 12.9 g/dL (12.0-15.0); Immature Granulocyte Absolute 0.08 K/mm3 (0.00-0.031); Immature Granulocyte Percent A 0.5 % (0-0.5); Lymphocytes Absolute Auto 0.59 K/mm3 (0.9-3.2); Lymphocytes Percent Auto 3.6 % (18.3-44.2); Mean Corpuscular HGB Conc 32.8 g/dl (32-36); Mean Corpuscular Hemoglobin 27.6 pg (26-34); Monocytes Absolute Auto 0.8 K/mm3 (0.1-0.6); Monocytes Percent Auto 4.7 % (2.6-8.5); Neutrophils Absolute Auto 14.9 K/mm3 (1.3-6.7); Platelet Count Result 347 k/mm3 (150-375); Red Blood Count 4.68 M/mm3 (4.2-5.4); Red Cell Distribution Width 15.6 % (11.5-14.5); White Blood Count 16.3 K/mm3 (4.5-10.0)
[2024-04-19 21:34] LABS: Alanine Aminotransferase 14 U/L (6-35); Albumin Level 4.9 g/dL (3.5-5.1); Alkaline Phosphatase 111 U/L (38-126); Anion Gap 22 mmol/L (4-12); Aspartate Amino Transferase 25 U/L (14-36); Bilirubin,Total 1.8 mg/dL (0.2-1.3); Blood Urea Nitrogen 23 mg/dL (7-17); Calcium 9.2 mg/dL (8.4-10.2); Carbon Dioxide 23 mmol/L (22-30); Chloride 90 mmol/L (98-107); Estimated CRCL calculation 60 ml/min; Estimated Glomerular Filt Rate 56; Glucose 320 mg/dL (65-110); Lipase 44 U/L (23-300); Magnesium 2.1 mg/dL (1.6-2.3); Potassium 3.5 mmol/L (3.4-5.0); Sodium 135 mmol/L (137-145)
[2024-04-19 22:07] LABS: SPREG INTERNAL CONTROL Positive; Serum Qual hCG Negative
[2024-04-19 23:14] VITALS: BP 149/89; PULSE 104; RESP 20; O2SAT 100
[2024-04-19] MEDS: SODIUM CHLORIDE 0.9% IV 1,000 ML 999 ML IV CONT ×2 (23:28)
[2024-04-19] MEDS: diphenhydrAMINE HCl INJ 50 MG/ML VIAL 25 MG IV PUSH (23:29)
[2024-04-19] MEDS: METOCLOPRAMIDE HCL INJ 10 MG/2 ML VIAL IV PUSH (23:29)
[2024-04-19 23:30] VITALS: PULSE 100; RESP 17; O2SAT 100
[2024-04-19 23:31] LABS: Glucose Point of Care 343 mg/dl (65-105)
[2024-04-19 23:43] VITALS: BP 165/87; PULSE 107; RESP 15
[2024-04-20] VITALS (27 sets, daily range): BP systolic 123–165; BP diastolic 70–97; PULSE 74–110; RESP 12–20; TEMP 36.3–36.8; O2SAT 99–100
--- NOTE | 2024-04-20 00:02 | ED.NAVMDI ---
HPI - Nausea/Vomiting/Diarrhea General Chief complaint: Nausea/Vomiting/Diarrhea <Jacquelyn Chatterjee PA-C - Last Filed: 04/20/24 03:25> Stated complaint: n/v <ALLISON Beckford Last Filed: 04/20/24 03:25> Time Seen by Provider: 04/19/24 23:10 <ALLISON Beckford Last Filed: 04/20/24 03:25> Source: patient <ALLISON Beckford Last Filed: 04/20/24 03:25> Mode of arrival: ambulatory <ALLISON Beckford Last Filed: 04/20/24 03:25> Limitations: no limitations <ALLISON Beckford Last Filed: 04/20/24 03:25> History of Present Illness HPI Narrative: this is a 39-year-old female that presents to the emergency department for nausea and vomiting. Reports history of type 1 diabetes. She has not been able to keep much down the last couple of days. Does report some diarrhea. Reports epigastric abdominal discomfort. Denies fevers. <ALLISON Beckford Last Filed: 04/20/24 03:25> Related Data Home medications: Home Medications Medication Instructions Recorded Confirmed thiamine HCl (vitamin B1) 100 mg 100 mg PO DAILY 01/08/24 04/20/24 tablet insulin lispro 100 unit/mL 22 unit subcut PRN PRN 04/20/24 04/20/24 subcutaneous solution Hyperglycemia <ALLISON Beckford Last Filed: 04/20/24 03:25> Allergies/Adverse reactions: Allergies Allergy/AdvReac Type Severity Reaction Status Date / Time No Known Allergies Allergy Verified 03/11/24 14:35 <ALLISON Beckford Last Filed: 04/20/24 03:25> Review of Systems Review of Systems: CONSTITUTIONAL: Denies fever GASTROINTESTINAL: Reports abdominal pain, nausea, vomiting, and diarrhea. GENITOURINARY: Denies dysuria <ALLISON Beckford Last Filed: 04/20/24 03:25> All systems reviewed & are unremarkable except as noted in HPI and below <Jacquelyn Chatterjee PA-C - Last Filed: 04/20/24 03:25> [facility] Past Medical History Medical History: Medical History Elevated liver enzymes Exposure to sexually transmitted disease (STD) Type 1 diabetes mellitus Diagnosed at the age of 7. Hemoglobin A1c was 10.8% on 08/09/2020. <Jacquelyn Chatterjee PA-C - Last Filed: 04/20/24 03:25> Surgical History Surgical History: Surgical History History of 3 sections History of gynecological procedure 04/29/2020- mirena iud insertion - 10/23/2021 mirena iud removal -nm <Jacquelyn Chatterjee PA-C - Last Filed: 04/20/24 03:25> Family History Family History: Family History Grandparent Breast cancer Father Diabetes mellitus Other Hypertension <Jacquelyn Chatterjee PA-C - Last Filed: 04/20/24 03:25> Social History Social History: Social History Smoking packs per day: 1 Smoking cigarettes per day: 20.0 Years smoked: 15 Smoking pack-years: 15.00 Smoking status: Current every day smoker Tobacco type: cigarettes Second hand tobacco smoke exposure: No Alcohol intake: current Drinks per week: 20 Alcohol use details: occasional Substance use: current Substance use type: marijuana Last use: 08/12/23 Do You Feel Safe in your Home?: Yes Lack of Transportation: No Lack of Food: Never True Current Housing: I Have Housing Concerned About Future Housing: No Difficulty Paying Gas/Electric Bills: No Difficulty Paying for Meds: No Currently Unemployed: No Education: High School Diploma/GED Difficulty w/ Childcare or Family Care: No Living arrangements: with family Occupation/Education: unemployed Gender identity (if verbalized by the patient): Female Sexual Orientation (if Verbalized by the Patient): Straight or Heterosexual Spiritual care concerns: No <Jacquelyn Chatterjee PA-C - Last Filed: 04/20/24 03:25> Exam [facility]
[2024-04-20] MEDS: PANTOPRAZOLE SODIUM IV 40 MG VIAL IV PUSH (00:29)
[2024-04-20] MEDS: LORazepam INJ (*CRX) 2 MG/ML VIAL 0.5 MG IV PUSH ×2 (01:09→19:28)
[2024-04-20 02:57] LABS: Fractional Inspired Oxygen 21 %; HCO3 VBG 24.4 mEq/l (24.0-30.0); PO2 VBG 70.1 mmHg (35.0-45.0)
[2024-04-20 03:07] LABS: PCO2 VBG 30.8 mmHg (42.0-48.0); pH VBG 7.516 (7.300-7.400)
[2024-04-20 03:10] LABS: Add Urine Microscopic? YES; Appearance Urine Clear (Clear); Bacteria Urine None Seen /hpf; Bilirubin Urine Negative (Negative); Blood Urine 1+ (Negative); Color Urine Yellow (Yellow); Glucose Urine UA 3+ mg/dL (Negative); Ketones Urine 2+ mg/dL (Negative); Leukocyte Esterase Ur Negative LEU/UL (Negative); Nitrate Urine Negative (Negative); Protein Urine 2+ mg/dL (Negative); RBC Urine 0-2 /hpf (0-2); Specific Grav Ur 1.035 (1.001-1.035); Squamous Epithelial Cell Urine None Seen /hpf (Few); Urobilinogen Urine 0.2 mg/dL (<2.0); WBC Urine 0-5 /hpf (0-3); pH Urine 5.5 (5.0-9.0)
[2024-04-20 03:12] LABS: Phosphorus 2.7 mg/dL (2.5-4.5)
[2024-04-20 03:19] LABS: SPREG INTERNAL CONTROL Positive; Serum Qual hCG Negative
--- NOTE | 2024-04-20 03:24 | PM.IMHP ---
H&P: HPI History of Present Illness Date/Time: 04/20/24 03:24 Chief Complaint: N/V Narrative: THIS IS A 39-YEAR-OLD FEMALE WITH PAST MEDICAL HISTORY SIGNIFICANT FOR TYPE 1 DIABETES MELLITUS, HYPERTENSION, GASTROPARESIS, PATIENT PRESENTS TO THE EMERGENCY ROOM DUE TO NAUSEA VOMITING EPIGASTRIC PAIN AFTER CELEBRATING FOR HER BIRTHDAY. PRELIMINARY WORKUP WAS SIGNIFICANT FOR ANION GAP OF 22 CREATININE 1.1 [place] [address] [place] of the Abdomen and Pelvis: Indication: Abdominal pain Technique: 2.5 mm axial scans were obtained through the abdomen and pelvis following intravenous administration of 100 cc of Omnipaque 350. Dose reduction technique was used on this scan by utilizing automated exposure control and iterative reconstruction technique. The dose-length product (DLP) was 398.51 mGy-cm. COMPARISON: 08/13/2023 Findings: Scans through the lung bases are unremarkable. The liver, spleen, pancreas, gallbladder, adrenals and kidneys are within normal limits. No evidence of aortic aneurysm. No lymphadenopathy. No bowel obstruction or bowel wall thickening. There is no evidence to suggest acute appendicitis. Images through the pelvis were performed. Urinary bladder unremarkable. Probable 2.4 cm left adnexal cyst or possibly dermoid. No other adnexal mass seen. No ascites. Impression: No acute abnormality identified. Probable 2.4 cm left adnexal cyst versus dermoid. Review of Systems Review of Systems: NAUSEA VOMITING EPIGASTRIC PMFSH Past Medical History Medical History Elevated liver enzymes Exposure to sexually transmitted disease (STD) Type 1 diabetes mellitus Diagnosed at the age of 7. Hemoglobin A1c was 10.8% on 08/09/2020. Surgical History Surgical History History of 3 sections History of gynecological procedure 04/29/2020- mirena iud insertion - 10/23/2021 mirena iud removal -nm Family History Family History Grandparent Breast cancer Father Diabetes mellitus Other Hypertension Social History Social History Smoking packs per day: 1 Smoking cigarettes per day: 20.0 Years smoked: 15 Smoking pack-years: 15.00 Smoking status: Current every day smoker Tobacco type: cigarettes Second hand tobacco smoke exposure: No Alcohol intake: current Drinks per week: 20 Alcohol use details: occasional Substance use: current Substance use type: marijuana Last use: 08/12/23 Do You Feel Safe in your Home?: Yes Lack of Transportation: No Lack of Food: Never True Current Housing: I Have Housing Concerned About Future Housing: No Difficulty Paying Gas/Electric Bills: No Difficulty Paying for Meds: No Currently Unemployed: No Education: High School Diploma/GED Difficulty w/ Childcare or Family Care: No Living arrangements: with family Occupation/Education: unemployed Gender identity (if verbalized by the patient): Female Sexual Orientation (if Verbalized by the Patient): Straight or Heterosexual Spiritual care concerns: No Meds Home Medications and Allergies Home Medications Medication Instructions Recorded Confirmed Type thiamine HCl (vitamin B1) 100 mg 100 mg PO DAILY 01/08/24 04/20/24 History tablet folic acid 1 mg tablet 1 mg PO DAILY #90 tabs 01/09/24 04/20/24 Rx insulin pump cart,auto,BT,G6/7 #30 ea 01/09/24 04/20/24 Rx (Omnipod 5 G6-G7 Pods (Gen 5) subcutaneous cartridge) insulin pump cartridge,auto #1 ea 01/09/24 04/20/24 Rx dose,BT,G6/G7 with controller subcutaneous (Omnipod 5 G6-G7 Intro Kit (Gen 5) subcutaneous cartridge) pantoprazole 40 mg tablet,delayed 40 mg PO QAM #90 tabs 01/09/24 04/20/24 Rx release cholecalciferol (vitamin D3) 50 50 mcg PO DAILY #90
[2024-04-20 03:34] LABS: Beta-Hydroxybutyrate/Acetoacetate 1.47 mmol/L (0.02-0.27)
[2024-04-20] MEDS: SODIUM CHLORIDE 0.9% IV 1,000 ML 999 ML IV CONT (04:10)
[2024-04-20] MEDS: ONDANSETRON INJ 4 MG/2 ML VIAL IV PUSH ×3 (05:09→18:37)
[2024-04-20 07:21] LABS: Glucose Point of Care 177 mg/dl (65-105)
[2024-04-20] MEDS: SODIUM CHLORIDE 0.9% IV 1,000 ML 125 ML IV CONT ×2 (07:35→16:01)
[2024-04-20] MEDS: METOCLOPRAMIDE HCL INJ 10 MG/2 ML VIAL IV PUSH ×3 (08:26→22:08)
--- NOTE | 2024-04-20 08:29 | PM.IMPN ---
Progress Note: A&P Assessment and Plan (1) Acute dehydration: Code(s): E86.0 - Dehydration Status: Acute Assessment and Plan: PLACED IN OBSERVATION IV FLUIDS CLEAR LIQUIDS ADVANCE DIET TOLERATED (2) Nausea and vomiting: Code(s): R11.2 - Nausea with vomiting, unspecified Status: Acute Assessment and Plan: SUPPORTIVE CARE (3) Esophagitis: Code(s): K20.90 - Esophagitis, unspecified without bleeding Status: Acute Assessment and Plan: PPI (4) Gastroparesis: Code(s): K31.84 - Gastroparesis Status: Acute Assessment and Plan: SUPPORTIVE CARE (5) Uncontrolled type 1 diabetes mellitus: Status: Acute Assessment and Plan: RESUME INSULIN NEEDED (6) Alcohol abuse: Code(s): F10.10 - Alcohol abuse, uncomplicated Status: Acute Assessment and Plan: FOLLOW-UP IN OUTPATIENT Plan (1) Acute dehydration: Code(s): E86.0 - Dehydration Status: Acute Assessment and Plan: Resulting from nausea vomiting and poor intake Continue fluid resuscitation with normal saline (2) Nausea and vomiting: Code(s): R11.2 - Nausea with vomiting, unspecified Status: Acute Assessment and Plan: Possible due to esophagitis and gastroparesis Patient is on Reglan 10 mg q.6 hours IV and Zofran 4 mg q.6 hours IV p.r.n. Start clear diet Advance diet as tolerable (3) Esophagitis: Code(s): K20.90 - Esophagitis, unspecified without bleeding Status: Acute Assessment and Plan: Continue Protonix 40 mg p.o. daily (4) Gastroparesis: Code(s): K31.84 - Gastroparesis Status: Acute Assessment and Plan: SUPPORTIVE CARE (5) Uncontrolled type 1 diabetes mellitus: Status: Acute Assessment and Plan: Uncontrolled type 1 diabetes Uncontrolled, positive acute on but no acidosis Start Lantus 12 units q.h.s. aspart for unit a.c. and insulin sliding scale a.c. q.h.s. (6) Alcohol abuse: Code(s): F10.10 - Alcohol abuse, uncomplicated Status: Acute Assessment and Plan: FOLLOW-UP IN OUTPATIENT Subjective Date/time seen: 04/20/24 08:29 Interval history: I saw examined the patient today, patient still feeling nauseous, and vomited on Reglan and Zofran p.r.n. decreased appetite, patient has upper abdomen pain, denies black emesis. no new issue even overnight, patient is afebrile, blood pressure stable Review of Systems Review of Systems: ROS negative except above Exam Narrative: GENERAL: Pleasant, in no acute distress. Well-nourished. - EYES: EOMI. Anicteric. - HENT: Moist mucous membranes. - LUNGS: Clear to auscultation bilaterally, no wheezing, rhonchi, or rales. - CARDIOVASCULAR: Regular rate and rhythm. No murmur. No JVD. - ABDOMEN: Soft, epigastric tender and non-distended. No palpable masses. - EXTREMITIES: No edema. Peripheral pulses 2+. Non-tender. - NEUROLOGIC: No focal neurological deficits. CN II-XII grossly intact. - PSYCHIATRIC: Awake, Alert and oriented x 3. Anxious mood and affect. - SKIN: No rashes or lesions. Warm. - LYMPH: No cervical lymphadenopathy. Objective Data Vital Signs Vital Signs: Vital Signs - 24 hr 04/19/24 18:19 04/19/24 23:14 04/19/24 23:30 Temperature 97.8 F Pulse Rate 102 H 104 H 100 Respiratory Rate 16 20 17 Blood Pressure 132/78 149/89 H Pulse Oximetry 100 100 100 04/19/24 23:43 04/20/24 00:06 04/20/24 00:15 Temperature Pulse Rate 107 H 103 H 110 H Respiratory Rate 15 17 17 Blood Pressure 165/87 H Pulse Oximetry 04/20/24 00:16 04/20/24 00:30 04/20/24 00:45 Temperature Pulse Rate 108 H 108 H 104 H Respiratory Rate 17 19 19 Blood Pressure 129/70 Pulse Oximetry 04/20/24 01:00 04/20/24 02:54 04/20/24 03:15 Temperature Pulse Rate 100 97 99 Respiratory Rate 15 15 15 Blood Pressure 132/71 Pulse Oximetry 99 99 04/20/24
[2024-04-20 08:54] LABS: Basophils Percent Auto 0.1 % (0.2-1.2); Hematocrit 35.8 % (37.0-47.0); Hemoglobin 11.6 g/dL (12.0-15.0); Immature Granulocyte Absolute 0.07 K/mm3 (0.00-0.031); Immature Granulocyte Percent A 0.5 % (0-0.5); Lymphocytes Absolute Auto 1.07 K/mm3 (0.9-3.2); Lymphocytes Percent Auto 7.7 % (18.3-44.2); Mean Corpuscular HGB Conc 32.4 g/dl (32-36); Mean Corpuscular Hemoglobin 27.7 pg (26-34); Mean Corpuscular Volume 85.4 fl (80-100); Mean Platelet Volume 9.7 fl (7.4-10.4); Monocytes Absolute Auto 1.1 K/mm3 (0.1-0.6); Monocytes Percent Auto 8.1 % (2.6-8.5); Neutrophils Absolute Auto 11.7 K/mm3 (1.3-6.7); Neutrophils Percent Auto 83.6 % (45.5-73.1); Platelet Count Result 306 k/mm3 (150-375); Red Blood Count 4.19 M/mm3 (4.2-5.4); Red Cell Distribution Width 15.6 % (11.5-14.5); White Blood Count 13.9 K/mm3 (4.5-10.0)
[2024-04-20] MEDS: THIAMINE HCL 100 MG TABLET PO (09:17)
[2024-04-20] MEDS: PANTOPRAZOLE 40 MG TABLET PO (09:17)
[2024-04-20] MEDS: FOLIC ACID 1 MG TABLET PO (09:17)
[2024-04-20] MEDS: lisinopriL 2.5 MG TABLET PO (09:17)
[2024-04-20 10:18] LABS: Anion Gap 11 mmol/L (4-12); Blood Urea Nitrogen 17 mg/dL (7-17); Calcium 8.3 mg/dL (8.4-10.2); Carbon Dioxide 28 mmol/L (22-30); Chloride 98 mmol/L (98-107); Estimated CRCL calculation 82 ml/min; Estimated Glomerular Filt Rate > 60; Glucose 180 mg/dL (65-110); Potassium 3.4 mmol/L (3.4-5.0); Sodium 137 mmol/L (137-145)
--- NOTE | 2024-04-20 11:01 | ADMGEN ---
This patient, Tara Hinkle, was admitted to 3 [facility] Surg Room 325-01. Patient/family oriented to hospital policies and general routines including ID bracelet, bed and alarms, visiting hours, pain management, procedures, bathroom and other care routines, personal items, smoking policy, room service/diet, and visiting hours. Information on how to activate the Rapid Response Team has been discussed. Patient/Family are encouraged to report perceived risks to care and to ask questions if they do not understand what they are told or what they should do. Report from Romie in the ER. pt arrived at 1000.
[2024-04-20 11:50] LABS: Glucose Point of Care 190 mg/dl (65-105)
[2024-04-20] MEDS: diphenhydrAMINE HCl INJ 50 MG/ML VIAL 25 MG IV PUSH ×2 (13:28→22:08)
[2024-04-20] MEDS: INSULIN ASPART (*BKC) 100 UNITS/ML SUB-Q ×3 (17:33→20:57)
[2024-04-20 17:45] LABS: Glucose Point of Care 275 mg/dl (65-105)
[2024-04-20] MEDS: INSULIN GLARGINE (*BKC) 100 UNITS/ML 12 UNITS SUB-Q (20:56)
[2024-04-20] MEDS: GABAPENTIN 300 MG CAPSULE PO (20:57)
[2024-04-21] VITALS (9 sets, daily range): BP systolic 152–165; BP diastolic 74–88; PULSE 87–96; RESP 16–20; TEMP 36.5–36.8; O2SAT 99–100; BMI 30.4
[2024-04-21 00:53] LABS: Glucose Point of Care 102 mg/dl (65-105)
[2024-04-21 00:53] LABS: Glucose Point of Care 77 mg/dl (65-105)
[2024-04-21] MEDS: SODIUM CHLORIDE 0.9% IV 1,000 ML 125 ML IV CONT (01:00)
[2024-04-21] MEDS: ONDANSETRON INJ 4 MG/2 ML VIAL IV PUSH ×2 (01:37→09:54)
[2024-04-21] MEDS: DEXTROSE 5%/0.45% SOD CHL 1,000 ML 75 ML IV CONT ×2 (05:55→19:05)
[2024-04-21] MEDS: diphenhydrAMINE HCl INJ 50 MG/ML VIAL 25 MG IV PUSH ×3 (05:57→20:59)
[2024-04-21] MEDS: METOCLOPRAMIDE HCL INJ 10 MG/2 ML VIAL IV PUSH ×3 (05:58→20:59)
[2024-04-21 08:01] LABS: Glucose Point of Care 252 mg/dl (65-105)
[2024-04-21] MEDS: PANTOPRAZOLE 40 MG TABLET PO (08:17)
[2024-04-21] MEDS: FOLIC ACID 1 MG TABLET PO (08:17)
[2024-04-21] MEDS: lisinopriL 2.5 MG TABLET PO (08:17)
[2024-04-21] MEDS: THIAMINE HCL 100 MG TABLET PO (08:17)
[2024-04-21] MEDS: INSULIN ASPART (*BKC) 100 UNITS/ML SUB-Q ×5 (08:18→17:21)
--- NOTE | 2024-04-21 08:21 | PM.IMPN ---
Progress Note: A&P Assessment and Plan (1) Acute dehydration: Code(s): E86.0 - Dehydration Status: Acute Assessment and Plan: PLACED IN OBSERVATION IV FLUIDS CLEAR LIQUIDS ADVANCE DIET TOLERATED (2) Nausea and vomiting: Code(s): R11.2 - Nausea with vomiting, unspecified Status: Acute Assessment and Plan: SUPPORTIVE CARE (3) Esophagitis: Code(s): K20.90 - Esophagitis, unspecified without bleeding Status: Acute Assessment and Plan: PPI (4) Gastroparesis: Code(s): K31.84 - Gastroparesis Status: Acute Assessment and Plan: SUPPORTIVE CARE (5) Uncontrolled type 1 diabetes mellitus: Status: Acute Assessment and Plan: RESUME INSULIN NEEDED (6) Alcohol abuse: Code(s): F10.10 - Alcohol abuse, uncomplicated Status: Acute Assessment and Plan: FOLLOW-UP IN OUTPATIENT Plan (1) Acute dehydration: Code(s): E86.0 - Dehydration Status: Acute Assessment and Plan: Resulting from nausea vomiting and poor intake Continue fluid resuscitation with normal saline intractable nausea vomiting (2) Nausea and vomiting: Code(s): R11.2 - Nausea with vomiting, unspecified Status: Acute Assessment and Plan: Possible due to esophagitis and gastroparesis, alcohol use and marijuana use I have discussed and advised patient to avoid using marijuana and alcohol, patient accepts suggestion Patient is on Reglan 10 mg q.6 hours IV and Zofran 4 mg q.6 hours IV p.r.n. Start clear diet Advance diet as tolerable (3) Esophagitis: Code(s): K20.90 - Esophagitis, unspecified without bleeding Status: Acute Assessment and Plan: Continue Protonix 40 mg p.o. daily changed to Protonix 40 mg IV once a daily, patient cannot tolerate diet (4) Gastroparesis: Code(s): K31.84 - Gastroparesis Status: Acute Assessment and Plan: SUPPORTIVE CARE (5) Uncontrolled type 1 diabetes mellitus: Status: Acute Assessment and Plan: Uncontrolled type 1 diabetes Uncontrolled, positive acute on but no acidosis Start Lantus 12 units q.h.s. aspart 4 unit a.c. and insulin sliding scale a.c. q.h.s. better controlled (6) Alcohol abuse: Code(s): F10.10 - Alcohol abuse, uncomplicated Status: Acute Assessment and Plan: FOLLOW-UP IN OUTPATIENT Subjective Date/time seen: 04/21/24 08:21 Interval history: I saw examined the patient today, patient still feeling nauseous,. decreased appetite, patient has upper abdomen pain, of the patient feels better today, patient still cannot tolerate diet well patient denies black emesis. patient is afebrile, blood pressure stable Exam Narrative: GENERAL: Pleasant, in no acute distress. Well-nourished. - EYES: EOMI. Anicteric. - HENT: Moist mucous membranes. - LUNGS: Clear to auscultation bilaterally, no wheezing, rhonchi, or rales. - CARDIOVASCULAR: Regular rate and rhythm. No murmur. No JVD. - ABDOMEN: Soft, epigastric tender and non-distended. No palpable masses. - EXTREMITIES: No edema. Peripheral pulses 2+. Non-tender. - NEUROLOGIC: No focal neurological deficits. CN II-XII grossly intact. - PSYCHIATRIC: Awake, Alert and oriented x 3. Anxious mood and affect. - SKIN: No rashes or lesions. Warm. - LYMPH: No cervical lymphadenopathy. Objective Data Vital Signs Vital Signs: Vital Signs - 24 hr 04/20/24 10:00 04/20/24 12:00 04/20/24 12:00 Temperature 98.2 F Pulse Rate 88 89 Respiratory Rate 18 Blood Pressure 147/84 H Pulse Oximetry 100 100 Oxygen Delivery Room Air 04/20/24 16:00 04/20/24 14:00 04/20/24 20:00 Temperature 97.9 F Pulse Rate 93 91 85 Respiratory Rate 18 Blood Pressure 165/93 H Pulse Oximetry 100 Oxygen Delivery 04/20/24 22:00 04/21/24 00:00 04/21/24 04:00 Temperature 97.4 F L Pulse Rate 74 89 87 Respiratory Rate 20
[2024-04-21 08:51] LABS: Alanine Aminotransferase 12 U/L (6-35); Albumin Level 4.1 g/dL (3.5-5.1); Alkaline Phosphatase 85 U/L (38-126); Anion Gap 16 mmol/L (4-12); Aspartate Amino Transferase 25 U/L (14-36); Basophils Percent Auto 0.3 % (0.2-1.2); Bilirubin,Total 1.5 mg/dL (0.2-1.3); Blood Urea Nitrogen 13 mg/dL (7-17); Calcium 8.2 mg/dL (8.4-10.2); Carbon Dioxide 24 mmol/L (22-30); Chloride 91 mmol/L (98-107); Eosinophils Percent Auto 0.1 % (0-4.4); Estimated CRCL calculation 112 ml/min; Estimated Glomerular Filt Rate > 60; Glucose 227 mg/dL (65-110); Hematocrit 36.8 % (37.0-47.0); Hemoglobin 11.7 g/dL (12.0-15.0); Immature Granulocyte Absolute 0.03 K/mm3 (0.00-0.031); Immature Granulocyte Percent A 0.3 % (0-0.5); Lymphocytes Absolute Auto 1.34 K/mm3 (0.9-3.2); Lymphocytes Percent Auto 14.4 % (18.3-44.2); Magnesium 1.8 mg/dL (1.6-2.3); Mean Corpuscular HGB Conc 31.8 g/dl (32-36); Mean Corpuscular Hemoglobin 27.1 pg (26-34); Mean Corpuscular Volume 85.4 fl (80-100); Monocytes Absolute Auto 0.9 K/mm3 (0.1-0.6); Neutrophils Percent Auto 74.9 % (45.5-73.1); Phosphorus 2.1 mg/dL (2.5-4.5); Platelet Count Result 315 k/mm3 (150-375); Potassium 3.1 mmol/L (3.4-5.0); Red Blood Count 4.31 M/mm3 (4.2-5.4); Red Cell Distribution Width 14.7 % (11.5-14.5); Sodium 131 mmol/L (137-145); White Blood Count 9.3 K/mm3 (4.5-10.0)
[2024-04-21] MEDS: PANTOPRAZOLE SODIUM IV 40 MG VIAL IV PUSH (10:18)
[2024-04-21 11:42] LABS: Glucose Point of Care 126 mg/dl (65-105)
[2024-04-21] MEDS: CALCIUM CARBONATE (TUMS) 500 MG (200 MG ELEMENTAL) PO ×3 (13:50→23:07)
[2024-04-21 17:03] LABS: Glucose Point of Care 241 mg/dl (65-105)
[2024-04-21 20:39] LABS: Glucose Point of Care 182 mg/dl (65-105)
[2024-04-21] MEDS: INSULIN GLARGINE (*BKC) 100 UNITS/ML 12 UNITS SUB-Q (20:46)
[2024-04-21] MEDS: GABAPENTIN 300 MG CAPSULE PO (20:47)
[2024-04-21] MEDS: LORazepam INJ (*CRX) 2 MG/ML VIAL 1 MG IV PUSH (23:04)
[2024-04-22] VITALS (9 sets, daily range): BP systolic 119–166; BP diastolic 69–94; PULSE 89–107; RESP 16; TEMP 36.2–37; O2SAT 99–100
[2024-04-22] MEDS: CALCIUM CARBONATE (TUMS) 500 MG (200 MG ELEMENTAL) PO ×3 (05:26→17:29)
[2024-04-22] MEDS: ONDANSETRON INJ 4 MG/2 ML VIAL IV PUSH ×3 (05:33→20:39)
[2024-04-22 06:46] LABS: Basophils Percent Auto 0.3 % (0.2-1.2); Eosinophils Absolute Auto 0.1 K/mm3 (0-0.3); Eosinophils Percent Auto 1.3 % (0-4.4); Hematocrit 38.2 % (37.0-47.0); Hemoglobin 12.8 g/dL (12.0-15.0); Immature Granulocyte Absolute 0.04 K/mm3 (0.00-0.031); Immature Granulocyte Percent A 0.4 % (0-0.5); Lymphocytes Absolute Auto 1.82 K/mm3 (0.9-3.2); Lymphocytes Percent Auto 18.1 % (18.3-44.2); Mean Corpuscular HGB Conc 33.5 g/dl (32-36); Mean Corpuscular Hemoglobin 27.8 pg (26-34); Mean Corpuscular Volume 82.9 fl (80-100); Mean Platelet Volume 9.4 fl (7.4-10.4); Monocytes Percent Auto 10.4 % (2.6-8.5); Neutrophils Percent Auto 69.5 % (45.5-73.1); Platelet Count Result 290 k/mm3 (150-375); Red Blood Count 4.61 M/mm3 (4.2-5.4); Red Cell Distribution Width 14.1 % (11.5-14.5)
[2024-04-22 07:07] LABS: Anion Gap 12 mmol/L (4-12); Blood Urea Nitrogen 9 mg/dL (7-17); Calcium 8.8 mg/dL (8.4-10.2); Carbon Dioxide 29 mmol/L (22-30); Chloride 88 mmol/L (98-107); Estimated CRCL calculation 97 ml/min; Estimated Glomerular Filt Rate > 60; Glucose 279 mg/dL (65-110); Magnesium 1.5 mg/dL (1.6-2.3); Phosphorus 2.8 mg/dL (2.5-4.5); Potassium 2.8 mmol/L (3.4-5.0); Sodium 129 mmol/L (137-145)
[2024-04-22 07:29] LABS: Glucose Point of Care 293 mg/dl (65-105)
--- NOTE | 2024-04-22 08:33 | PM.IMPN ---
Progress Note: A&P Assessment and Plan (1) Acute dehydration: Code(s): E86.0 - Dehydration Status: Acute Assessment and Plan: PLACED IN OBSERVATION IV FLUIDS CLEAR LIQUIDS ADVANCE DIET TOLERATED (2) Nausea and vomiting: Code(s): R11.2 - Nausea with vomiting, unspecified Status: Acute Assessment and Plan: SUPPORTIVE CARE (3) Esophagitis: Code(s): K20.90 - Esophagitis, unspecified without bleeding Status: Acute Assessment and Plan: PPI (4) Gastroparesis: Code(s): K31.84 - Gastroparesis Status: Acute Assessment and Plan: SUPPORTIVE CARE (5) Uncontrolled type 1 diabetes mellitus: Status: Acute Assessment and Plan: RESUME INSULIN NEEDED (6) Alcohol abuse: Code(s): F10.10 - Alcohol abuse, uncomplicated Status: Acute Assessment and Plan: FOLLOW-UP IN OUTPATIENT Plan (1) Acute dehydration: Code(s): E86.0 - Dehydration Status: Acute Assessment and Plan: Resulting from nausea vomiting and poor intake Increase normal saline to 150 mL/hour intractable abdomen pain nausea vomiting Assessment and Plan: Possible due to esophagitis and gastroparesis, alcohol use and marijuana use I have discussed and advised patient to avoid using marijuana and alcohol, patient accepts suggestion Patient is on Reglan 10 mg q.6 hours IV and Zofran 4 mg q.6 hours IV p.r.n. Start clear diet Advance diet as tolerable Severe pain today, repeat CT abdomen pelvis, unremarkable Follow-up back acid level Consult GI for evaluation treatment Hyponatremia, hypokalemia Due to ED adequate intake of electrolyte Increases normal saline 150 mL/hour, replete potassium chloride 40 mg IV push once and b.i.d. p.o. (3) Esophagitis: Code(s): K20.90 - Esophagitis, unspecified without bleeding Status: Acute Assessment and Plan: Continue Protonix 40 mg p.o. daily changed to Protonix 40 mg IV once a daily, patient cannot tolerate diet (4) Gastroparesis: Code(s): K31.84 - Gastroparesis Status: Acute Assessment and Plan: SUPPORTIVE CARE (5) Uncontrolled type 1 diabetes mellitus: Status: Acute Assessment and Plan: Uncontrolled type 1 diabetes Uncontrolled, positive acute on but no acidosis Start Lantus 12 units q.h.s. aspart 4 unit a.c. and insulin sliding scale a.c. q.h.s. better controlled (6) Alcohol abuse: Code(s): F10.10 - Alcohol abuse, uncomplicated Status: Acute Assessment and Plan: Subjective Date/time seen: 04/22/24 08:33 Interval history: I saw examined the patient today, patient has severe abdomen pain, associated with nausea vomiting. Patient cannot tolerate diet patient denies black emesis. patient is afebrile, blood pressure stable. Labs reviewed, patient has worsening hyponatremia and hypokalemia Exam Narrative: GENERAL: Pleasant, in no acute distress. Well-nourished. - EYES: EOMI. Anicteric. - HENT: Moist mucous membranes. - LUNGS: Clear to auscultation bilaterally, no wheezing, rhonchi, or rales. - CARDIOVASCULAR: Regular rate and rhythm. No murmur. No JVD. - ABDOMEN: Soft, diffused abdomen pain non-distended. No palpable masses. - EXTREMITIES: No edema. Peripheral pulses 2+. Non-tender. - NEUROLOGIC: No focal neurological deficits. CN II-XII grossly intact. - PSYCHIATRIC: Awake, Alert and oriented x 3. Anxious mood and affect. - SKIN: No rashes or lesions. Warm. - LYMPH: No cervical lymphadenopathy. Objective Data Vital Signs Vital Signs: Vital Signs - 24 hr 04/21/24 12:00 04/21/24 14:00 04/21/24 16:00 Temperature 97.7 F Pulse Rate 87 89 90 Respiratory Rate 16 Blood Pressure 165/74 H Pulse Oximetry 100 04/21/24 20:27 04/21/24 20:00 04/22/24 00:00 Temperature 98.2 F Pulse Rate 92 96 91 Respiratory Rate 16 Blood Pressure 158/88 H Pulse Oximet
[2024-04-22 10:51] LABS: Glucose Point of Care 334 mg/dl (65-105)
[2024-04-22] MEDS: POTASSIUM CHLORIDE INJ 40 MEQ in SODIUM CHLORIDE 0.9% IV 500 ML 130 MEQ IVPB (11:00)
[2024-04-22] MEDS: SODIUM CHLORIDE 0.9% IV 1,000 ML 150 ML IV CONT ×3 (11:00→23:13)
[2024-04-22] MEDS: PANTOPRAZOLE SODIUM IV 40 MG VIAL IV PUSH ×2 (11:01→21:14)
[2024-04-22] MEDS: lisinopriL 2.5 MG TABLET PO (11:01)
[2024-04-22] MEDS: INSULIN ASPART (*BKC) 100 UNITS/ML SUB-Q ×2 (11:01→17:22)
[2024-04-22] MEDS: THIAMINE HCL 100 MG TABLET PO (11:01)
[2024-04-22] MEDS: METOCLOPRAMIDE HCL INJ 10 MG/2 ML VIAL IV PUSH ×3 (11:01→23:09)
[2024-04-22] MEDS: FOLIC ACID 1 MG TABLET PO (11:01)
[2024-04-22 11:12] LABS: Lactic Acid Reflex 0.8 mmol/L (0.7-2.0); Lipase 91 U/L (23-300)
[2024-04-22] MEDS: POTASSIUM CHLORIDE 20 MEQ PACKET (FOR LIQUID) 40 MEQ PO ×2 (12:07→17:15)
[2024-04-22] MEDS: diphenhydrAMINE HCl INJ 50 MG/ML VIAL 25 MG IV PUSH ×3 (12:08→23:09)
--- NOTE | 2024-04-22 15:52 | WPDGICN ---
Assessment and Plan Assessment and plan (1) Nausea and vomiting: Code(s): R11.2 - Nausea with vomiting, unspecified Status: Acute (2) Esophagitis: Code(s): K20.90 - Esophagitis, unspecified without bleeding Status: Acute (3) Gastroparesis: Code(s): K31.84 - Gastroparesis Status: Acute (4) Alcohol abuse: Code(s): F10.10 - Alcohol abuse, uncomplicated Status: Acute (5) Acute dehydration: Code(s): E86.0 - Dehydration Status: Acute (6) Uncontrolled type 1 diabetes mellitus: Status: Acute Plan PLAN: 1. Abdominal pain/Nausea/Vomiting/Coffee ground emesis: Current issues include persistent upper abdominal pain, nausea, and vomiting with coffee ground emesis following heavy alcohol consumption. Past medical history significant for previuos ICU admission for DKA and esophagitis. DDX: Alcohol-induced gastritis VS Peptic ulcer disease VS Esophagitis - will increase Pantoprazole from once a day to BID. - carafate 1 gm QID - Will Consider EGD for further evaluation only if nausea and vomiting do not improve, otherwise this can be done on an outpatient basis if symptoms improve - Continue IV fluids for hydration - Continue Reglan 10 mg IV q6h and Zofran 4 mg IV q6h PRN for nausea/vomiting - Hgb stable. Monitor for signs of upper GI bleeding - Ct scan of abdomen and pelvis with no acute findings. 3. Chronic alcohol abuse: - Consider alcohol cessation counseling and resources - Monitor for signs of alcohol withdrawal GI Consult Note Consult date/time: 04/22/24 15:52 Reason for consult: abdominal pain HPI: This is a pleasant 39 year old female with a past medical surgical history of Type 1 diabetes, GERD, gastroparesis, elevated Lfts and chronic alcohol abuse Admitted to [facility] for abdominal pain, nausea, and vomiting. She reports that her current symptoms began on Saturday (3 days ago) after a period of heavy alcohol consumption. She had been drinking heavily for three consecutive days (Saturday, , Saturday) in celebration of her birthday, consuming primarily whiskey and soda, with way more than 5-6 drinks per day. She reports very little food intake during this time. On Saturday morning, she woke up and began vomiting, followed by the onset of upper abdominal pain. She notes the vomit was dark brown in color and included coffee ground emesis, but denies noticing any fresh blood. She experienced diarrhea on Saturday but has not had any bowel movements since then. Her typical bowel habits are daily and normal . Labs on admission with WBC 16.3, hemoglobin 12.9, hematocrit 39.3, platelets 306, sodium 131, potassium 3.1, anion gap 22, bicarb was normal, Bun 13, creatinine 0.6. total bili 1.5, AST 25, ALT 12, alk-phos 85, albumin 4.1, lipase 91. CT scan of abdomen pelvis with no acute findings. The abdominal pain is located in the upper abdomen and is described as an ache or a feeling of being squeezed. It does not radiate to her back or sides. She denies any bloating. The pain has not improved since admission. She continues to experience nausea and vomiting, unable to tolerate even clear liquids. Her abdominal pain is worse today. She was admitted to [facility] from 08/13/23-08/19/23 for diabetic ketoacidosis and nausea/vomiting, requiring ICU admission. She was seen by Dr. Serrano during that admission, and a CT noted esophagitis which was felt to be related to her nausea and vomiting. she was discharged home with pantoprazole which has improved her acid reflux symptoms. she was also started on Reglan 10 mg b.i.d. for suspected gastroparesis, currently takes this on an as-needed basis for nausea which is typically related to alcohol use. she followed up in our office in August in which EGD was ordered but never completed. History of frequent marijuana use. She has history of intermittent transaminase elevation last year. LFts during this
[2024-04-22 16:41] LABS: Glucose Point of Care 174 mg/dl (65-105)
[2024-04-22] MEDS: SUCRALFATE 1 GM TABLET PO ×2 (17:15→20:39)
[2024-04-22] MEDS: GABAPENTIN 300 MG CAPSULE PO (20:39)
[2024-04-22 21:07] LABS: Glucose Point of Care 108 mg/dl (65-105)
[2024-04-22] MEDS: INSULIN GLARGINE (*BKC) 100 UNITS/ML 12 UNITS SUB-Q (21:13)
[2024-04-23] VITALS (13 sets, daily range): BP systolic 108–157; BP diastolic 64–94; PULSE 82–107; RESP 16–22; TEMP 36.2–36.8; O2SAT 98–100
[2024-04-23] MEDS: ONDANSETRON INJ 4 MG/2 ML VIAL IV PUSH ×3 (03:42→15:49)
[2024-04-23] MEDS: diphenhydrAMINE HCl INJ 50 MG/ML VIAL 25 MG IV PUSH ×2 (05:38→22:25)
[2024-04-23] MEDS: SODIUM CHLORIDE 0.9% IV 1,000 ML 150 ML IV CONT ×2 (05:38→20:33)
[2024-04-23] MEDS: METOCLOPRAMIDE HCL INJ 10 MG/2 ML VIAL IV PUSH ×2 (05:38→22:25)
[2024-04-23 07:13] LABS: Basophils Percent Auto 0.5 % (0.2-1.2); Eosinophils Absolute Auto 0.2 K/mm3 (0-0.3); Eosinophils Percent Auto 2.1 % (0-4.4); Hematocrit 38.1 % (37.0-47.0); Hemoglobin 12.3 g/dL (12.0-15.0); Immature Granulocyte Absolute 0.02 K/mm3 (0.00-0.031); Immature Granulocyte Percent A 0.3 % (0-0.5); Lymphocytes Absolute Auto 1.58 K/mm3 (0.9-3.2); Mean Corpuscular HGB Conc 32.3 g/dl (32-36); Mean Corpuscular Hemoglobin 27.5 pg (26-34); Mean Corpuscular Volume 85.2 fl (80-100); Mean Platelet Volume 9.7 fl (7.4-10.4); Monocytes Absolute Auto 0.9 K/mm3 (0.1-0.6); Monocytes Percent Auto 11.9 % (2.6-8.5); Neutrophils Absolute Auto 5.2 K/mm3 (1.3-6.7); Neutrophils Percent Auto 65.2 % (45.5-73.1); Platelet Count Result 280 k/mm3 (150-375); Red Blood Count 4.47 M/mm3 (4.2-5.4); Red Cell Distribution Width 14.3 % (11.5-14.5); White Blood Count 7.9 K/mm3 (4.5-10.0)
[2024-04-23 07:20] LABS: Anion Gap 13 mmol/L (4-12); Blood Urea Nitrogen 8 mg/dL (7-17); Calcium 8.2 mg/dL (8.4-10.2); Carbon Dioxide 27 mmol/L (22-30); Chloride 92 mmol/L (98-107); Estimated CRCL calculation 86 ml/min; Estimated Glomerular Filt Rate > 60; Glucose 173 mg/dL (65-110); Magnesium 1.3 mg/dL (1.6-2.3); Phosphorus 2.8 mg/dL (2.5-4.5); Potassium 3.1 mmol/L (3.4-5.0); Sodium 132 mmol/L (137-145)
[2024-04-23 07:39] LABS: Glucose Point of Care 173 mg/dl (65-105)
--- NOTE | 2024-04-23 07:46 | PM.IMPN ---
Progress Note: A&P Assessment and Plan (1) Acute dehydration: Code(s): E86.0 - Dehydration Status: Acute Assessment and Plan: PLACED IN OBSERVATION IV FLUIDS CLEAR LIQUIDS ADVANCE DIET TOLERATED (2) Nausea and vomiting: Code(s): R11.2 - Nausea with vomiting, unspecified Status: Acute Assessment and Plan: SUPPORTIVE CARE (3) Esophagitis: Code(s): K20.90 - Esophagitis, unspecified without bleeding Status: Acute Assessment and Plan: PPI (4) Gastroparesis: Code(s): K31.84 - Gastroparesis Status: Acute Assessment and Plan: SUPPORTIVE CARE (5) Uncontrolled type 1 diabetes mellitus: Status: Acute Assessment and Plan: RESUME INSULIN NEEDED (6) Alcohol abuse: Code(s): F10.10 - Alcohol abuse, uncomplicated Status: Acute Assessment and Plan: FOLLOW-UP IN OUTPATIENT Plan (1) Acute dehydration: Code(s): E86.0 - Dehydration Status: Acute Assessment and Plan: Resulting from nausea vomiting and poor intake Increase normal saline to 150 mL/hour intractable abdomen pain nausea vomiting Assessment and Plan: Possible due to esophagitis and gastroparesis, alcohol use and marijuana use I have discussed and advised patient to avoid using marijuana and alcohol, patient accepts suggestion Patient is on Reglan 10 mg q.6 hours IV and Zofran 4 mg q.6 hours IV p.r.n. Start clear diet Advance diet as tolerable Severe pain today, repeat CT abdomen pelvis, unremarkable Follow-up back acid level Consult GI for evaluation treatment, Appreciate GI consultation, plans EGD today Hyponatremia, hypokalemia, hypomagnesemia Due to ED adequate intake of electrolyte Increases normal saline 150 mL/hour, replete potassium chloride 40 mg IV push once and b.i.d. p.o. magnesium sulfate 2 g IV push once (3) Esophagitis: Code(s): K20.90 - Esophagitis, unspecified without bleeding Status: Acute Assessment and Plan: Continue Protonix 40 mg p.o. daily changed to Protonix 40 mg IV once a daily, patient cannot tolerate diet (4) Gastroparesis: Code(s): K31.84 - Gastroparesis Status: Acute Assessment and Plan: SUPPORTIVE CARE (5) Uncontrolled type 1 diabetes mellitus: Status: Acute Assessment and Plan: Uncontrolled type 1 diabetes Uncontrolled, positive acute on but no acidosis Start Lantus 12 units q.h.s insulin sliding scale a.c. q.h.s. better controlled (6) Alcohol abuse: Code(s): F10.10 - Alcohol abuse, uncomplicated Status: Acute Assessment and Plan: Subjective Date/time seen: 04/23/24 07:46 Interval history: I saw examined the patient today,patient states pain is controlled shortly with narcotic medication, still cannot tolerate diet, has nausea vomiting. Patient denies black emesis, diarrhea. Patient is afebrile, blood pressure stable, hyponatremia and hypokalemia partially corrected Exam Narrative: GENERAL: Pleasant, in no acute distress. Well-nourished. - EYES: EOMI. Anicteric. - HENT: Moist mucous membranes. - LUNGS: Clear to auscultation bilaterally, no wheezing, rhonchi, or rales. - CARDIOVASCULAR: Regular rate and rhythm. No murmur. No JVD. - ABDOMEN: Soft, diffused abdomen pain non-distended. No palpable masses. - EXTREMITIES: No edema. Peripheral pulses 2+. Non-tender. - NEUROLOGIC: No focal neurological deficits. CN II-XII grossly intact. - PSYCHIATRIC: Awake, Alert and oriented x 3. Anxious mood and affect. - SKIN: No rashes or lesions. Warm. - LYMPH: No cervical lymphadenopathy. Objective Data Vital Signs Vital Signs: Vital Signs - 24 hr 04/22/24 08:00 04/22/24 08:53 04/22/24 12:00 Temperature Pulse Rate 102 H 107 H Respiratory Rate Blood Pressure Pulse Oximetry Oxygen Delivery Room Air 04/22/24 13:50 04/22/24 16:00 04/22/24 22:00 Avelino
[2024-04-23] MEDS: POTASSIUM CHLORIDE INJ 40 MEQ in SODIUM CHLORIDE 0.9% IV 500 ML 130 MEQ IVPB (09:00)
[2024-04-23] MEDS: PANTOPRAZOLE SODIUM IV 40 MG VIAL IV PUSH ×2 (09:03→20:33)
[2024-04-23] MEDS: lisinopriL 2.5 MG TABLET PO (09:03)
--- NOTE | 2024-04-23 11:04 | PC.NURSE ---
Patient was picked up by WC to GI for EGD at 1055.
[2024-04-23 11:14] LABS: Glucose Point of Care 211 mg/dl (65-105)
--- NOTE | 2024-04-23 11:41 | SUR.PREOP ---
Reported to Dr. Amos that pt has a potassium level of 3.1 and has a bag of potassium currently running. Dr. Amos okay with this and we can proceed with procedure as planned.
--- NOTE | 2024-04-23 11:45 | WPDANESEPPF ---
Anes - Initial Pre Proc Eval Procedure: Operation Date: 04/23/24 12:00 Proposed Procedures p Esophagogastroduodenoscopy - Robin Dc MD Date/Time: 04/23/24 11:45 Surgeon: Mary Gooden MD Pre Op Diagnosis: Dehydration Patient Data Age: 39 Gender: F Height: 1.63 m Weight: 80.6 kg Last Vital Signs Temp 97.2 F L 04/23/24 11:15 Pulse 93 04/23/24 11:15 Resp 18 04/23/24 11:15 BP 141/83 H 04/23/24 11:15 Pulse Ox 100 04/23/24 11:15 O2 Del Method Room Air 04/23/24 11:15 Allergies Allergy/AdvReac Type Severity Reaction Status Date / Time No Known Allergies Allergy Verified 04/23/24 11:13 Home Medications Medication Instructions Recorded Confirmed Type thiamine HCl (vitamin B1) 100 mg 100 mg PO DAILY 01/08/24 04/20/24 History tablet folic acid 1 mg tablet 1 mg PO DAILY #90 tabs 01/09/24 04/20/24 Rx insulin pump cart,auto,BT,G6/7 #30 ea 01/09/24 04/20/24 Rx (Omnipod 5 G6-G7 Pods (Gen 5) subcutaneous cartridge) insulin pump cartridge,auto #1 ea 01/09/24 04/20/24 Rx dose,BT,G6/G7 with controller subcutaneous (Omnipod 5 G6-G7 Intro Kit (Gen 5) subcutaneous cartridge) pantoprazole 40 mg tablet,delayed 40 mg PO QAM #90 tabs 01/09/24 04/20/24 Rx release cholecalciferol (vitamin D3) 50 50 mcg PO DAILY #90 caps 01/17/24 04/20/24 Rx mcg (2,000 unit) capsule gabapentin 300 mg capsule 300 mg PO QHS #90 caps 01/17/24 04/20/24 Rx glucagon 1 mg/0.2 mL subcutaneous 1 mg (0.2 mL) subcut ONCE #0.4 mL 01/17/24 04/20/24 Rx auto-injector (Gvoke HypoPen 2-Pack) glucose 4 gram chewable tablet 16 g PO Q15M PRN hypoglycemia #360 01/17/24 04/20/24 Rx tabs insulin pump cart,auto,BT,G6/7 #30 ea 01/17/24 04/20/24 Rx (Omnipod 5 G6-G7 Pods (Gen 5) subcutaneous cartridge) insulin pump cartridge,auto #1 ea 01/17/24 04/20/24 Rx dose,BT,G6/G7 with controller subcutaneous (Omnipod 5 G6-G7 Intro Kit (Gen 5) subcutaneous cartridge) blood-glucose sensor (Dexcom G6 #9 ea 01/30/24 04/20/24 Rx Sensor device) lisinopril 2.5 mg tablet 2.5 mg PO DAILY #90 tabs 01/30/24 04/20/24 Rx ondansetron 4 mg disintegrating 4 mg PO .every 8 hours as nee #20 01/30/24 04/20/24 Rx tablet tabs fluconazole 150 mg tablet 150 mg PO Q72H #2 tabs 03/16/24 04/20/24 Rx metoclopramide HCl 10 mg tablet 10 mg PO .q8 PRN nausea and 03/18/24 04/20/24 Rx (Reglan) vomiting #20 tabs insulin lispro 100 unit/mL 22 unit subcut PRN PRN 04/20/24 04/20/24 History subcutaneous solution Hyperglycemia Laboratory Tests 04/22/24 04/22/24 04/23/24 16:37 20:52 06:48 WBC 7.9 K/mm3 (4.5-10.0) RBC 4.47 M/mm3 (4.2-5.4) Hgb 12.3 g/dL (12.0-15.0) Hct 38.1 % (37.0-47.0) MCV 85.2 fl (80-100) MCH 27.5 pg (26-34) MCHC 32.3 g/dl (32-36) RDW 14.3 % (11.5-14.5) Plt Count 280 k/mm3 (150-375) MPV 9.7 fl (7.4-10.4) Immature Gran % (Auto) 0.3 % (0-0.5) Neut % (Auto) 65.2 % (45.5-73.1) Lymph % (Auto) 20.0 % (18.3-44.2) [place] % (Auto) 11.9 H % (2.6-8.5) Eos % (Auto) 2.1 % (0-4.4) Baso % (Auto) 0.5 % (0.2-1.2) Lymph # (Auto) 1.58 K/mm3 (0.9-3.2) [place] # (Auto) 0.9 H K/mm3 (0.1-0.6) Eos # (Auto) 0.2 K/mm3 (0-0.3) Baso # (Auto) 0.0 K/mm3 (0.0-0.1) Abs Immat Gran (auto) 0.02 K/mm3 (0.00-0.031) Absolute Neuts (auto) 5.2 K/mm3 (1.3-6.7) Absolute Nucleated RBC 0.000 K/mm3 (0.0-0.012) Nucleated RBC % 0.0 % (0.0-0.2) Sodium 132 L mmol/L (137-145) Potassium 3.1 L mmol/L (3.4-5.0) Chloride 92 L mmol/L (98-107) Carbon Dioxide 27 mmol/L (22-30) Anion Gap 13 H mmol/L (4-12) BUN 8 mg/dL (7-17) Creatinine 0.80 mg/dL (0.7-1.0) Es
[2024-04-23] MEDS: LACTATED RINGERS 1,000 ML 150 ML IV CONT (12:23)
[2024-04-23 12:44] LABS: Glucose Point of Care 213 mg/dl (65-105)
--- NOTE | 2024-04-23 13:18 | PC.NURSE ---
Patient arrived back to room at 1310.
[2024-04-23] MEDS: MAGNESIUM SULF 2 GM/WATER 50ML 2 GM/50 ML BAG IVPB (15:29)
[2024-04-23 15:47] LABS: Glucose Point of Care 236 mg/dl (65-105)
[2024-04-23] MEDS: SUCRALFATE 1 GM TABLET PO ×2 (15:50→20:33)
[2024-04-23] MEDS: INSULIN ASPART (*BKC) 100 UNITS/ML SUB-Q ×3 (15:54→20:53)
[2024-04-23] MEDS: POTASSIUM CHLORIDE 20 MEQ PACKET (FOR LIQUID) 40 MEQ PO (16:02)
[2024-04-23] MEDS: CALCIUM CARBONATE (TUMS) 500 MG (200 MG ELEMENTAL) PO ×2 (18:42→20:32)
[2024-04-23] MEDS: GABAPENTIN 300 MG CAPSULE PO (20:32)
[2024-04-23 20:50] LABS: Glucose Point of Care 216 mg/dl (65-105)
[2024-04-23] MEDS: INSULIN GLARGINE (*BKC) 100 UNITS/ML 12 UNITS SUB-Q (20:58)
[2024-04-24] VITALS (7 sets, daily range): BP systolic 109–137; BP diastolic 56–82; PULSE 84–102; RESP 14–18; TEMP 36.3–36.9; O2SAT 97–100
[2024-04-24] MEDS: SUCRALFATE 1 GM TABLET PO ×4 (05:44→20:52)
[2024-04-24] MEDS: diphenhydrAMINE HCl INJ 50 MG/ML VIAL 25 MG IV PUSH (05:45)
[2024-04-24] MEDS: METOCLOPRAMIDE HCL INJ 10 MG/2 ML VIAL IV PUSH (05:45)
--- NOTE | 2024-04-24 07:38 | PM.IMPN ---
Progress Note: A&P Assessment and Plan (1) Acute dehydration: Code(s): E86.0 - Dehydration Status: Acute Assessment and Plan: PLACED IN OBSERVATION IV FLUIDS CLEAR LIQUIDS ADVANCE DIET TOLERATED (2) Nausea and vomiting: Code(s): R11.2 - Nausea with vomiting, unspecified Status: Acute Assessment and Plan: SUPPORTIVE CARE (3) Esophagitis: Code(s): K20.90 - Esophagitis, unspecified without bleeding Status: Acute Assessment and Plan: PPI (4) Gastroparesis: Code(s): K31.84 - Gastroparesis Status: Acute Assessment and Plan: SUPPORTIVE CARE (5) Uncontrolled type 1 diabetes mellitus: Status: Acute Assessment and Plan: RESUME INSULIN NEEDED (6) Alcohol abuse: Code(s): F10.10 - Alcohol abuse, uncomplicated Status: Acute Assessment and Plan: FOLLOW-UP IN OUTPATIENT Plan (1) Acute dehydration: Code(s): E86.0 - Dehydration Status: Acute Assessment and Plan: Resulting from nausea vomiting and poor intake Increase normal saline to 150 mL/hour intractable abdomen pain nausea vomiting Assessment and Plan: Possible due to esophagitis and gastroparesis, alcohol use and marijuana use I have discussed and advised patient to avoid using marijuana and alcohol, patient accepts suggestion Patient is on Reglan 10 mg q.6 hours IV and Zofran 4 mg q.6 hours IV p.r.n. Start clear diet Advance diet as tolerable Severe pain today, repeat CT abdomen pelvis, unremarkable Follow-up back acid level Consult GI for evaluation treatment, Appreciate GI consultation, EGD showed grade 3 reflux esophagitis on 04/24 Hyponatremia, hypokalemia, hypomagnesemia Due to ED adequate intake of electrolyte Increases normal saline 150 mL/hour, replete potassium chloride 40 mg IV push once and b.i.d. p.o. magnesium sulfate 2 g IV push once (3) Esophagitis: Code(s): K20.90 - Esophagitis, unspecified without bleeding Status: Acute Assessment and Plan: Continue Protonix 40 mg p.o. daily changed to Protonix 40 mg IV once a daily, patient cannot tolerate diet (4) Gastroparesis: Code(s): K31.84 - Gastroparesis Status: Acute Assessment and Plan: SUPPORTIVE CARE (5) Uncontrolled type 1 diabetes mellitus: Status: Acute Assessment and Plan: Uncontrolled type 1 diabetes Uncontrolled, positive acute on but no acidosis Start Lantus 12 units q.h.s insulin sliding scale a.c. q.h.s. better controlled (6) Alcohol abuse: Code(s): F10.10 - Alcohol abuse, uncomplicated Status: Acute Assessment and Plan: Subjective Date/time seen: 04/24/24 07:38 Interval history: I saw examined the patient today,patient states pain is better controlled with Toradol, patient cannot tolerate solid diet, has nausea without vomiting. Patient is afebrile, blood pressure stable, hyponatremia and hypokalemia partially corrected Exam Narrative: GENERAL: Pleasant, in no acute distress. Well-nourished. - EYES: EOMI. Anicteric. - HENT: Moist mucous membranes. - LUNGS: Clear to auscultation bilaterally, no wheezing, rhonchi, or rales. - CARDIOVASCULAR: Regular rate and rhythm. No murmur. No JVD. - ABDOMEN: Soft, diffused abdomen pain non-distended. No palpable masses. - EXTREMITIES: No edema. Peripheral pulses 2+. Non-tender. - NEUROLOGIC: No focal neurological deficits. CN II-XII grossly intact. - PSYCHIATRIC: Awake, Alert and oriented x 3. Anxious mood and affect. - SKIN: No rashes or lesions. Warm. - LYMPH: No cervical lymphadenopathy. Objective Data Vital Signs Vital Signs: Vital Signs - 24 hr 04/23/24 08:00 04/23/24 11:15 04/23/24 12:28 Temperature 97.2 F L 97.7 F Pulse Rate 89 93 97 Respiratory Rate 18 19 Blood Pressure 141/83 H 157/94 H Pulse Oximetry 100 100 Oxygen Delivery Room Air Room Air 04/23/24 12:38
[2024-04-24] MEDS: SODIUM CHLORIDE 0.9% IV 1,000 ML 150 ML IV CONT (08:30)
[2024-04-24] MEDS: PANTOPRAZOLE SODIUM IV 40 MG VIAL IV PUSH ×2 (08:32→20:52)
[2024-04-24] MEDS: INSULIN ASPART (*BKC) 100 UNITS/ML SUB-Q ×3 (08:36→17:02)
[2024-04-24] MEDS: lisinopriL 2.5 MG TABLET PO (08:38)
[2024-04-24] MEDS: FOLIC ACID 1 MG TABLET PO (08:38)
[2024-04-24] MEDS: THIAMINE HCL 100 MG TABLET PO (08:39)
[2024-04-24] MEDS: POTASSIUM CHLORIDE 20 MEQ PACKET (FOR LIQUID) 40 MEQ PO ×2 (08:39→16:57)
[2024-04-24 08:41] LABS: Glucose Point of Care 154 mg/dl (65-105)
[2024-04-24] MEDS: CALCIUM CARBONATE (TUMS) 500 MG (200 MG ELEMENTAL) PO ×2 (08:45→17:01)
[2024-04-24 08:58] LABS: Basophils Absolute Auto 0.1 K/mm3 (0.0-0.1); Basophils Percent Auto 0.5 % (0.2-1.2); Eosinophils Absolute Auto 0.3 K/mm3 (0-0.3); Eosinophils Percent Auto 2.4 % (0-4.4); Hematocrit 34.6 % (37.0-47.0); Hemoglobin 11.3 g/dL (12.0-15.0); Immature Granulocyte Absolute 0.04 K/mm3 (0.00-0.031); Immature Granulocyte Percent A 0.4 % (0-0.5); Lymphocytes Absolute Auto 3.07 K/mm3 (0.9-3.2); Lymphocytes Percent Auto 27.9 % (18.3-44.2); Mean Corpuscular HGB Conc 32.7 g/dl (32-36); Mean Corpuscular Hemoglobin 27.2 pg (26-34); Mean Corpuscular Volume 83.2 fl (80-100); Mean Platelet Volume 9.5 fl (7.4-10.4); Monocytes Absolute Auto 1.1 K/mm3 (0.1-0.6); Monocytes Percent Auto 10.4 % (2.6-8.5); Neutrophils Absolute Auto 6.4 K/mm3 (1.3-6.7); Neutrophils Percent Auto 58.4 % (45.5-73.1); Platelet Count Result 303 k/mm3 (150-375); Red Blood Count 4.16 M/mm3 (4.2-5.4); Red Cell Distribution Width 14.2 % (11.5-14.5)
--- NOTE | 2024-04-24 09:03 | P.PNAN_ITS ---
Anes - Prog Note Post-Op Date/Time: 04/24/24 09:03 Cardiovascular status: normal Respiratory status: normal Airway patency: baseline Mental status: baseline Post-Op hydration status: normal Vital Signs: Last Vital Signs Temp 36.8 C 04/24/24 06:00 Pulse 90 04/24/24 06:00 Resp 18 04/24/24 06:00 BP 124/68 04/24/24 06:00 Pulse Ox 100 04/24/24 06:00 O2 Del Method Room Air 04/24/24 07:35 Pain Score (VAS): 0 I/O: Intake & Output 04/23/24 04/24/24 04/24/24 23:59 07:59 15:59 Intake Total 300 1350 Balance 300 1350 04/23/24 04/23/24 04/23/24 11:10 12:41 15:45 WBC RBC Hgb Hct MCV MCH MCHC RDW Plt Count MPV Immature Gran % (Auto) Neut % (Auto) Lymph % (Auto) [place] % (Auto) Eos % (Auto) Baso % (Auto) Lymph # (Auto) [place] # (Auto) Eos # (Auto) Baso # (Auto) Abs Immat Gran (auto) Absolute Neuts (auto) Absolute Nucleated RBC Nucleated RBC % Sodium Potassium Chloride Carbon Dioxide Anion Gap BUN Creatinine Estim Creat Clear Calc Estimated GFR Glucose POC Capillary Glucose 211 H 213 H 236 H Calcium Phosphorus Magnesium 04/23/24 04/24/24 04/24/24 20:48 08:08 08:29 WBC Pending RBC Pending Hgb Pending Hct Pending MCV Pending MCH Pending MCHC Pending RDW Pending Plt Count Pending MPV Pending Immature Gran % (Auto) Pending Neut % (Auto) Pending Lymph % (Auto) Pending [place] % (Auto) Pending Eos % (Auto) Pending Baso % (Auto) Pending Lymph # (Auto) Pending [place] # (Auto) Pending Eos # (Auto) Pending Baso # (Auto) Pending Abs Immat Gran (auto) Pending Absolute Neuts (auto) Pending Absolute Nucleated RBC Pending Nucleated RBC % Pending Sodium Pending Potassium Pending Chloride Pending Carbon Dioxide Pending Anion Gap Pending BUN Pending Creatinine Pending Estim Creat Clear Calc Pending Estimated GFR Pending Glucose Pending POC Capillary Glucose 216 H 154 H Calcium Pending Phosphorus Pending Magnesium Pending Post-procedural complaints: none Patient Feedback: Patient satisfied with anesthetic care.
[2024-04-24 09:28] LABS: Anion Gap 14 mmol/L (4-12); Blood Urea Nitrogen 9 mg/dL (7-17); Calcium 8.1 mg/dL (8.4-10.2); Carbon Dioxide 20 mmol/L (22-30); Chloride 95 mmol/L (98-107); Estimated CRCL calculation 97 ml/min; Estimated Glomerular Filt Rate > 60; Glucose 161 mg/dL (65-110); Magnesium 1.6 mg/dL (1.6-2.3); Phosphorus 1.9 mg/dL (2.5-4.5); Potassium 3.8 mmol/L (3.4-5.0); Sodium 129 mmol/L (137-145)
[2024-04-24 11:46] LABS: Glucose Point of Care 101 mg/dl (65-105)
[2024-04-24] MEDS: ACETAMINOPHEN 325 MG TABLET 650 MG PO ×2 (15:19→20:55)
[2024-04-24 16:29] LABS: Glucose Point of Care 125 mg/dl (65-105)
--- NOTE | 2024-04-24 18:15 | WPDGIPROGNO ---
Progress Note: A&P Assessment and Plan (1) Esophagitis: Code(s): K20.90 - Esophagitis, unspecified without bleeding Status: Acute Assessment and Plan: ulcerative esophagitis better with iv protonix and carafate eating more egd in 4-6 months to assess healing also needs to quit drinking (2) Acute dehydration: Code(s): E86.0 - Dehydration Status: Acute Assessment and Plan: resolved (3) Gastroparesis: Code(s): K31.84 - Gastroparesis Status: Acute (4) Uncontrolled type 1 diabetes mellitus: Status: Acute Assessment and Plan: on medication no dka this time (5) Alcohol abuse: Code(s): F10.10 - Alcohol abuse, uncomplicated Status: Acute (6) Nausea and vomiting: Code(s): R11.2 - Nausea with vomiting, unspecified Status: Acute Subjective Date/time seen: 04/24/24 18:15 Interval history: no more vomiting, overall much better still some discomfort after eating Review of Systems Review of Systems: All systems reviewed & are unremarkable except as noted in HPI and below Exam Const: General: comfortable and no acute distress HENMT: Face/Nose/Sinus: Normal nares present Eyes: General: appearance normal, both eyes and all related structures Neck: Neck: no JVD Resp: Auscultation: clear to auscultation bilaterally Cardio: Rate: regular rate Rhythm: regular rhythm GI: Inspection: non-distended GI Palp: Yes Soft to palpation and No Tenderness to palpation present (GI) Auscultation: normal bowel sounds Skin: General skin exam: normal color Neuro: Speech: normal speech Motor exam (neuro): 5/5 motor strength present throughout Extrem: General: normal to inspection Psych: Mental Status: mental status grossly normal Objective Data Vital Signs Vital Signs: Vital Signs - 24 hr 04/23/24 19:58 04/23/24 20:00 04/23/24 23:58 Temperature 98.2 F 98.1 F Pulse Rate 107 H 98 Respiratory Rate 18 18 Blood Pressure 124/73 122/77 Pulse Oximetry 100 98 Oxygen Delivery Room Air 04/24/24 02:17 04/23/24 20:00 04/24/24 00:00 Temperature 98.1 F Pulse Rate 92 106 H 102 H Respiratory Rate 18 Blood Pressure 118/63 Pulse Oximetry 100 Oxygen Delivery 04/24/24 04:00 04/24/24 06:00 04/24/24 07:35 Temperature 98.2 F Pulse Rate 84 90 Respiratory Rate 18 Blood Pressure 124/68 Pulse Oximetry 100 Oxygen Delivery Room Air 04/24/24 08:00 04/24/24 14:00 Temperature 97.3 F L Pulse Rate 93 88 Respiratory Rate 14 Blood Pressure 109/56 L Pulse Oximetry 97 Oxygen Delivery Intake/Output Intake/Output: Intake & Output 04/21/24 04/22/24 04/23/24 04/24/24 23:59 23:59 23:59 23:59 Intake Total 3791.5 2852.5 2784.5 2650 Output Total 1000 4 Balance 3791.5 1852.5 2784.5 2646 Meds/Results Medications: Active Medications Generic Name Dose Route Start Last Admin Trade Name Freq PRN Reason Stop Dose Admin Acetaminophen 650 mg 04/24/24 14:55 04/24/24 15:19 Acetaminophen 325 Mg Tablet PO 650 mg Q6H PRN Administration Mild Pain (1-3) or Fever Calcium Carbonate 200 mg 04/21/24 16:48 04/24/24 17:01 Calcium Carbonate (Tums) 500 Mg (200 Mg Elemental) PO 200 mg Q4H PRN Administration Indigestion Dextrose 12.5 gm 04/20/24 08:39 Dextrose 50% 25 Gm/50 Ml Syringe IV PUSH PRN PRN Hypoglycemia Protocol Diphenhydramine HCl 25 mg 04/20/24 12:59 04/24/24 05:45 Diphenhydramine Hcl Inj 50 Mg/Ml Vial IV PUSH 25 mg Q4H PRN Administration shaking Folic Acid 1 mg 04/20/24 09:00 04/24/24 08:38 Folic Acid 1 Mg Tablet PO 1 mg DAILY KARRIE Administration Gabapentin 300 mg 04/20/24 21:00 04/23/24 20:32 Gabapentin 300 Mg Capsule PO 300 mg QHS KARRIE Administration Glucagon 1 mg 04/20/24 08:39 Glucagon For Inj 1 Mg Vial IM PRN PRN Hypoglycemia Protocol Glucose 15 gm 04/20/24 08:39 Glucose
[2024-04-24 19:50] LABS: Glucose Point of Care 142 mg/dl (65-105)
[2024-04-24] MEDS: GABAPENTIN 300 MG CAPSULE PO (20:52)
[2024-04-24] MEDS: INSULIN GLARGINE (*BKC) 100 UNITS/ML 12 UNITS SUB-Q (20:53)
[2024-04-25] MEDS: ACETAMINOPHEN 325 MG TABLET 650 MG PO ×2 (03:00→09:21)
[2024-04-25 05:12] VITALS: BP 138/82; PULSE 82; RESP 18; TEMP 36.4; O2SAT 100
[2024-04-25 06:35] LABS: Basophils Absolute Auto 0.1 K/mm3 (0.0-0.1); Basophils Percent Auto 0.7 % (0.2-1.2); Eosinophils Absolute Auto 0.3 K/mm3 (0-0.3); Eosinophils Percent Auto 4.2 % (0-4.4); Hematocrit 36.9 % (37.0-47.0); Hemoglobin 12.1 g/dL (12.0-15.0); Immature Granulocyte Absolute 0.05 K/mm3 (0.00-0.031); Immature Granulocyte Percent A 0.6 % (0-0.5); Lymphocytes Absolute Auto 2.46 K/mm3 (0.9-3.2); Lymphocytes Percent Auto 30.6 % (18.3-44.2); Mean Corpuscular HGB Conc 32.8 g/dl (32-36); Mean Corpuscular Hemoglobin 27.6 pg (26-34); Mean Corpuscular Volume 84.2 fl (80-100); Mean Platelet Volume 9.8 fl (7.4-10.4); Monocytes Absolute Auto 0.8 K/mm3 (0.1-0.6); Monocytes Percent Auto 10.3 % (2.6-8.5); Neutrophils Absolute Auto 4.3 K/mm3 (1.3-6.7); Neutrophils Percent Auto 53.6 % (45.5-73.1); Platelet Count Result 290 k/mm3 (150-375); Red Blood Count 4.38 M/mm3 (4.2-5.4); Red Cell Distribution Width 14.6 % (11.5-14.5); White Blood Count 8.1 K/mm3 (4.5-10.0)
[2024-04-25] MEDS: SUCRALFATE 1 GM TABLET PO ×2 (06:48→11:38)
[2024-04-25 06:53] LABS: Anion Gap 11 mmol/L (4-12); Blood Urea Nitrogen 8 mg/dL (7-17); Calcium 8.8 mg/dL (8.4-10.2); Carbon Dioxide 26 mmol/L (22-30); Chloride 92 mmol/L (98-107); Estimated CRCL calculation 97 ml/min; Estimated Glomerular Filt Rate > 60; Glucose 245 mg/dL (65-110); Magnesium 1.5 mg/dL (1.6-2.3); Phosphorus 3.6 mg/dL (2.5-4.5); Potassium 4.1 mmol/L (3.4-5.0); Sodium 129 mmol/L (137-145)
[2024-04-25 07:57] LABS: Glucose Point of Care 266 mg/dl (65-105)
[2024-04-25] MEDS: INSULIN ASPART (*BKC) 100 UNITS/ML SUB-Q ×2 (08:03→08:04)
[2024-04-25] MEDS: POTASSIUM CHLORIDE 20 MEQ PACKET (FOR LIQUID) 40 MEQ PO (08:04)
[2024-04-25] MEDS: lisinopriL 2.5 MG TABLET PO (08:04)
[2024-04-25] MEDS: THIAMINE HCL 100 MG TABLET PO (08:04)
[2024-04-25] MEDS: FOLIC ACID 1 MG TABLET PO (08:04)
[2024-04-25] MEDS: PANTOPRAZOLE SODIUM IV 40 MG VIAL IV PUSH (08:14)
[2024-04-25] MEDS: CALCIUM CARBONATE (TUMS) 500 MG (200 MG ELEMENTAL) PO (08:18)
--- NOTE | 2024-04-25 10:21 | WPDGIPROGNO ---
Progress Note: A&P Assessment and Plan (1) Esophagitis: Code(s): K20.90 - Esophagitis, unspecified without bleeding Status: Acute Assessment and Plan: ulcerative esophagitis she can go home with protonix twice daily and 2 weeks of carafate with meals will set up egd in 4-6 months to assess healing also needs to quit drinking (2) Acute dehydration: Code(s): E86.0 - Dehydration Status: Acute Assessment and Plan: resolved (3) Gastroparesis: Code(s): K31.84 - Gastroparesis Status: Acute (4) Uncontrolled type 1 diabetes mellitus: Status: Acute Assessment and Plan: on medication no dka this time (5) Alcohol abuse: Code(s): F10.10 - Alcohol abuse, uncomplicated Status: Acute (6) Nausea and vomiting: Code(s): R11.2 - Nausea with vomiting, unspecified Status: Acute Assessment and Plan: resolved Subjective Date/time seen: 04/25/24 10:21 Interval history: better, eating more feeling like going home today Review of Systems Review of Systems: All systems reviewed & are unremarkable except as noted in HPI and below Exam Const: General: comfortable and no acute distress HENMT: Face/Nose/Sinus: Normal nares present Eyes: General: appearance normal, both eyes and all related structures Neck: Neck: no JVD Resp: Auscultation: clear to auscultation bilaterally Cardio: Rate: regular rate Rhythm: regular rhythm GI: Inspection: non-distended GI Palp: Yes Soft to palpation and No Tenderness to palpation present (GI) Auscultation: normal bowel sounds Skin: General skin exam: normal color Neuro: Speech: normal speech Motor exam (neuro): 5/5 motor strength present throughout Extrem: General: normal to inspection Psych: Mental Status: mental status grossly normal Objective Data Vital Signs Vital Signs: Vital Signs - 24 hr 04/24/24 14:00 04/24/24 21:47 04/24/24 20:00 Temperature 97.3 F L 98.4 F Pulse Rate 88 89 Respiratory Rate 14 16 Blood Pressure 109/56 L 137/82 Pulse Oximetry 97 100 Oxygen Delivery Room Air 04/25/24 05:12 Temperature 97.5 F L Pulse Rate 82 Respiratory Rate 18 Blood Pressure 138/82 Pulse Oximetry 100 Oxygen Delivery Intake/Output Intake/Output: Intake & Output 04/22/24 04/23/24 04/24/24 04/25/24 23:59 23:59 23:59 23:59 Intake Total 2852.5 2784.5 3100 240 Output Total 1000 4 Balance 1852.5 2784.5 3096 240 Meds/Results Medications: Active Medications Generic Name Dose Route Start Last Admin Trade Name Freq PRN Reason Stop Dose Admin Acetaminophen 650 mg 04/24/24 14:55 04/25/24 09:21 Acetaminophen 325 Mg Tablet PO 650 mg Q6H PRN Administration Mild Pain (1-3) or Fever Calcium Carbonate 200 mg 04/21/24 16:48 04/25/24 08:18 Calcium Carbonate (Tums) 500 Mg (200 Mg Elemental) PO 200 mg Q4H PRN Administration Indigestion Dextrose 12.5 gm 04/20/24 08:39 Dextrose 50% 25 Gm/50 Ml Syringe IV PUSH PRN PRN Hypoglycemia Protocol Diphenhydramine HCl 25 mg 04/20/24 12:59 04/24/24 05:45 Diphenhydramine Hcl Inj 50 Mg/Ml Vial IV PUSH 25 mg Q4H PRN Administration shaking Folic Acid 1 mg 04/20/24 09:00 04/25/24 08:04 Folic Acid 1 Mg Tablet PO 1 mg DAILY KARRIE Administration Gabapentin 300 mg 04/20/24 21:00 04/24/24 20:52 Gabapentin 300 Mg Capsule PO 300 mg QHS KARRIE Administration Glucagon 1 mg 04/20/24 08:39 Glucagon For Inj 1 Mg Vial IM PRN PRN Hypoglycemia Protocol Glucose 15 gm 04/20/24 08:39 Glucose Oral Gel 15 Gm Of Glucse In 37.5 Gm Tube PO PRN PRN Hypoglycemia Protocol Dextrose 1,000 mls @ 100 mls/hr 04/20/24 08:39 Dextrose 5% 1,000 Ml IVPB PRN PRN Hypoglycemia Protocol Insulin Aspart 4 units 04/20/24 12:00 04/25/24 08:03 Insulin Aspart (*Bkc) 100 Units/Ml 0.05 units/kg (4 units) 4 units SUB-
--- NOTE | 2024-04-25 10:55 | PM.DS ---
DS: Admitting Diagnosis Discharge Date 04/25/2024 Admitting Diagnosis Dehydration DS: Discharge Diagnosis Discharge Diagnosis (1) Acute dehydration: Code(s): E86.0 - Dehydration Status: Acute Assessment and Plan: PLACED IN OBSERVATION IV FLUIDS CLEAR LIQUIDS ADVANCE DIET TOLERATED (2) Nausea and vomiting: Code(s): R11.2 - Nausea with vomiting, unspecified Status: Acute Assessment and Plan: SUPPORTIVE CARE (3) Esophagitis: Code(s): K20.90 - Esophagitis, unspecified without bleeding Status: Acute Assessment and Plan: PPI (4) Gastroparesis: Code(s): K31.84 - Gastroparesis Status: Acute Assessment and Plan: SUPPORTIVE CARE (5) Uncontrolled type 1 diabetes mellitus: Status: Acute Assessment and Plan: RESUME INSULIN NEEDED (6) Alcohol abuse: Code(s): F10.10 - Alcohol abuse, uncomplicated Status: Acute Assessment and Plan: FOLLOW-UP IN OUTPATIENT Plan (1) Acute dehydration: Code(s): E86.0 - Dehydration Status: Acute Assessment and Plan: Resulting from nausea vomiting and poor intake Increase normal saline to 150 mL/hour intractable abdomen pain nausea vomiting Assessment and Plan: Possible due to esophagitis and gastroparesis, alcohol use and marijuana use I have discussed and advised patient to avoid using marijuana and alcohol, patient accepts suggestion Patient is on Reglan 10 mg q.6 hours IV and Zofran 4 mg q.6 hours IV p.r.n. Start clear diet Advance diet as tolerable Severe pain today, repeat CT abdomen pelvis, unremarkable Follow-up back acid level Consult GI for evaluation treatment, Appreciate GI consultation, EGD showed grade 3 reflux esophagitis on 04/24 Hyponatremia, hypokalemia, hypomagnesemia Due to ED adequate intake of electrolyte Increases normal saline 150 mL/hour, replete potassium chloride 40 mg IV push once and b.i.d. p.o. magnesium sulfate 2 g IV push once (3) Esophagitis: Code(s): K20.90 - Esophagitis, unspecified without bleeding Status: Acute Assessment and Plan: Continue Protonix 40 mg p.o. daily changed to Protonix 40 mg IV once a daily, patient cannot tolerate diet (4) Gastroparesis: Code(s): K31.84 - Gastroparesis Status: Acute Assessment and Plan: SUPPORTIVE CARE (5) Uncontrolled type 1 diabetes mellitus: Status: Acute Assessment and Plan: Uncontrolled type 1 diabetes Uncontrolled, positive acute on but no acidosis Start Lantus 12 units q.h.s insulin sliding scale a.c. q.h.s. better controlled (6) Alcohol abuse: Code(s): F10.10 - Alcohol abuse, uncomplicated Status: Acute Assessment and Plan: DS: Summary Hospital Course Reason for hospitalization: Dehydration Hospital Course: 39 years old female was admitted complains of having generalized weakness patient was found to have high sugar and dehydration electrolyte imbalance. Patient electrolytes were replaced and patient started feeling better. Patient was given IV fluids. Patient did not have any complicating stay in the hospital. Today patient is feeling better discharged home stable condition. Patient advised to see a primary care physician for 1 week. Patient advised to repeat CMP and magnesium level as an outpatient next week. Status at Discharge Cognitive/behavioral status at discharge: Stable. Time Spent with Patient Time attestation: Total time spent providing and/or coordinating discharge services: Exam Narrative: GENERAL: Pleasant, in no acute distress. Well-nourished. - EYES: EOMI. Anicteric. - HENT: Moist mucous membranes. - LUNGS: Clear to auscultation bilaterally, no wheezing, rhonchi, or rales. - CARDIOVASCULAR: Regular rate and rhythm. No murmur. No JVD. - ABDOMEN: Soft, diffused abdomen pain non-distended. No palpable masses. - EXTREMITIES: N
[2024-04-25 11:04] LABS: Glucose Point of Care 143 mg/dl (65-105)
[2024-04-25] MEDS: MAGNESIUM OXIDE 400 MG TABLET PO (11:36)
--- NOTE | 2024-04-25 17:38 | PC.NURSE ---
On 04/25/24, the CARBURETOR REBUILDER, Daysi Mondragon, provided care and completed [employer] documentation on this patient. I have reviewed the [employer]BU[employer] REBUILDER's documentation and agree with the findings.
== END 2024-04-25 13:50 | disposition home or self-care (01) | DRG 243 ==
LOC: ANHED 04-20 03:22 → ANH3MEDSUR 04-20 03:58
PROVIDERS: Emergency Medicine; Hospitalist; Internal Medicine Gastroenterology; Admitting Provider Internal Medicine; Emergency Provider Physician Assistant; Visit Provider Internal Medicine
PROC: 0DJ08ZZ Inspection of Upper Intestinal Tract, Via Natural or Artificial Opening Endoscopic (ICD-10-PCS; CPT 43235; principal; 2024-04-23 12:00)
DX: K22.10 Ulcer of esophagus without bleeding (principal); E86.0 Dehydration; K21.00 Gastro-esophageal reflux disease with esophagitis, without bleeding; E10.43 Type 1 diabetes mellitus with diabetic autonomic (poly)neuropathy; K31.84 Gastroparesis; E87.1 Hypo-osmolality and hyponatremia; E87.6 Hypokalemia; E83.42 Hypomagnesemia; F10.10 Alcohol abuse, uncomplicated; F12.90 Cannabis use, unspecified, uncomplicated; F17.210 Nicotine dependence, cigarettes, uncomplicated; E66.9 Obesity, unspecified; Z68.30 Body mass index [BMI] 30.0-30.9, adult
CPT/HCPCS: 36415; 74176; 74177; 80048; 80053; 81001; 82010; 82803; 82948; 83605; 83690; 83735; 84100; 84703; 85025; 88305; 88312; 96361; 96374; 96375; 96376; 99285; A9270; G0378; G0379; J0330; J1200; J1815; J2060; J2405; J2470; J2704; J2765; J3475; J3480; J7030; J7040; J7120; Q9967

== ENCOUNTER 2024-06-26 02:29 | Inpatient (IN) | payer OTHER, SELFPAY ==
[2024-06-26] VITALS (9 sets, daily range): BP systolic 110–162; BP diastolic 70–88; PULSE 86–106; RESP 13–24; TEMP 36.5–37.2; O2SAT 99–100; BMI 37.1
--- NOTE | ~2024-06-26 | CT_ITS ---
EXAMINATION: CT chest abdomen pelvis wo con DATE: 06/27/2024 19:14 INDICATION: Pneumonia. Back pain. TECHNIQUE: Computed tomography (CT) of the chest, abdomen, and pelvis was performed without intraveno us contrast. Automated exposure control and iterative reconstruction technique were employed. Exam do se: 476.03 mGy-cm total exam DLP. COMPARISON: None FINDINGS: CHEST CT: The lungs are clear of infiltrate or consolidation. No hilar or mediastinal mass lesion or lymphadenopathy. Normal caliber of the thoracic aorta. Normal heart size. No pericardial or pleural effusion. Circumferential nonspecific soft tissue thickening of the distal esophagus. ABDOMEN/PELVIS CT: The liver, gallbladder, bile ducts, spleen, pancreas, pancreatic duct, and adrenal glands and kidneys are unremarkable. No urinary tract calculus or hydroureteronephrosis is detected. Approximately 3 x 4 cm cystic lesion of the left ovary. There are some calcifications as well. No fat density is noted to suggest dermoid or teratoma. The right ovary and uterus and urinary bladder appear unremarkable. Normal appendix. No bowel obstruction or intraperitoneal free air. Normal caliber of the abdominal aorta. No intraperitoneal or retroperitoneal or pelvic mass lesion or adenopathy or ascites is noted. Very small fat-containing umbilical hernia. Included skeletal structures are unremarkable. IMPRESSION: Circumferential nonspecific soft tissue thickening of the distal esophagus; this might b e due to esophagitis Approximately 3 x 4 cm left ovarian cystic lesion; consider pelvic ultrasound Normal appendix Reviewed, dictated and finalized at [facility]. Reviewed, dictated and finalized at [facility]. IMPRESSION: Circumferential nonspecific soft tissue thickening of the distal e sophagus; this might be due to esophagitis Approximately 3 x 4 cm left ovarian cystic lesion; consider pelvic ultrasound Normal appendix
--- NOTE | ~2024-06-26 | US_ITS ---
EXAMINATION: US pelvic complete DATE: 06/29/2024 14:19 INDICATION: Ovarian cyst. TECHNIQUE: Multiple transabdominal sonographic images of the pelvis were obtained. COMPARISON: CT 06/27/2024, 04/22/24 FINDINGS: The uterus measures 10.4 x 3.6 x 7.0 cm. There is no free fluid in the pelvis. The endometrial comple x measures 4 mm in thickness. The right ovary measures 2.8 x 1.4 x 3.8 cm. The left ovary measures 6. 3 x 9.3 x 6.0 cm. There is a 5.8 cm cyst with low-level echoes in left ovary. There is normal vascula r flow in the ovaries. IMPRESSION: 1. 5.8 cm hemorrhagic cyst in left ovary. Ultrasound is recommended in 2-3 months. Reviewed, dictated and finalized at [facility]. ER/[facility] IMPRESSION: 1. 5.8 cm hemorrhagic cyst in left ovary. Ultrasound is recommended in 2-3 ba hs.
--- NOTE | ~2024-06-26 | XR_ITS ---
XR chest 2V Ordering provider: Jaya Peña MD History: 39 years Female with . vomitng . Comparison: August 13, 2023 FINDINGS: MEDIASTINUM: The cardiac silhouette is not enlarged. LUNGS: No effusions or pneumothorax. Opacity is seen just lateral to the cardiac apex suggestive of focal pneumonia. Follow-up to resoluti on advised. OTHER: No free air under the diaphragm. IMPRESSION: Highly suggestive focal pneumonia in the left lower lobe. Follow-up to resolution is advised to exclu de a mass. Reviewed, dictated and finalized at [facility]. IMPRESSION: Highly suggestive focal pneumonia in the left lower lobe. Follow-up to resoluti on is advised to exclude a mass.
--- NOTE | ~2024-06-26 | XR_ITS ---
XR abdomen gastric tube insert DATE: 06/27/2024 13:56 INDICATION: NG tube placement TECHNIQUE: Portable AP view of the upper abdomen and lower chest on 06/27/2024 at 1353 hours COMPARISON: None FINDINGS: NG tube in body of the stomach, the proximal side port 6 cm distal to the diaphragmatic hia tus. Lower lung zones are clear. Heart size normal. No pleural effusion. IMPRESSION: NG tube in stomach Reviewed, dictated and finalized at [facility]. Reviewed, dictated and finalized at [facility]. IMPRESSION: NG tube in stomach
[2024-06-26 02:38] LABS: Glucose Point of Care 356 mg/dl (65-105)
--- NOTE | 2024-06-26 04:01 | ED_ITS ---
HPI - Nausea/Vomiting/Diarrhea General Chief complaint: Nausea/Vomiting/Diarrhea Stated complaint: n/v Time Seen by Provider: 06/26/24 03:57 History of Present Illness HPI Narrative: patient with history of type 1 diabetes, gastroparesis, presents with nausea vomiting, started today. Has had symptoms like this in the past. No significant pain. Related Data Home Medications Medication Instructions Recorded Confirmed thiamine HCl (vitamin B1) 100 mg 100 mg PO DAILY 01/08/24 06/24/24 tablet Allergies Allergy/AdvReac Type Severity Reaction Status Date / Time No Known Allergies Allergy Verified 06/24/24 13:56 Review of Systems Review of Systems: All systems reviewed & are unremarkable except as noted in HPI and below PMFSH Past Medical History Medical History Elevated liver enzymes Exposure to sexually transmitted disease (STD) Type 1 diabetes mellitus Diagnosed at the age of 7. Hemoglobin A1c was 10.8% on 08/09/2020. Surgical History Surgical History History of 3 sections History of gynecological procedure 04/29/2020- mirena iud insertion - 10/23/2021 mirena iud removal -nm Family History Family History Grandparent Breast cancer Father Diabetes mellitus Other Hypertension Social History Social History Smoking packs per day: 1 Smoking cigarettes per day: 20.0 Years smoked: 15 Smoking pack-years: 15.00 Smoking status: Current every day smoker Tobacco type: cigarettes Second hand tobacco smoke exposure: No Alcohol intake: current Drinks per week: 20 Alcohol use details: occasional Substance use: current Substance use type: marijuana Last use: 08/12/23 Do You Feel Safe in your Home?: Yes Lack of Transportation: No Lack of Food: Never True Current Housing: I Have Housing Concerned About Future Housing: No Difficulty Paying Gas/Electric Bills: No Difficulty Paying for Meds: No Currently Unemployed: No Education: High School Diploma/GED Difficulty w/ Childcare or Family Care: No Living arrangements: with family Occupation/Education: unemployed Gender identity (if verbalized by the patient): Female Sexual Orientation (if Verbalized by the Patient): Straight or Heterosexual Spiritual care concerns: No Exam Narrative: EXAMINATION OF ORGAN SYSTEMS/BODY AREAS: Constitutional: Vital signs per nursing GENERAL: Actively retching HEAD: Normal with no signs of head trauma. EYES: EOMI, conjunctiva normal ENT: Hearing grossly intact LUNGS: Nonlabored breathing. HEART: [Regular rate and rhythm] ABD: no distended EXT: Normal range of motion SKIN: [No rashes or lesions.] NEURO: [Alert and oriented x 3. No gross focal sensory or strength deficits.] PSYCH: Normal affect Course Vital Signs Vital signs: Vital Signs Pulse Rate 92 06/26/24 02:33 Respiratory Rate 24 H 06/26/24 02:33 Blood Pressure 147/81 H 06/26/24 02:33 Pulse Oximetry 100 06/26/24 02:33 Oxygen Delivery Room Air 06/26/24 02:33 Pulse Rate 106 H 06/26/24 05:38 Respiratory Rate 15 06/26/24 05:38 Blood Pressure 124/70 06/26/24 05:38 Pulse Oximetry 100 06/26/24 05:38 Oxygen Delivery Room Air 06/26/24 02:33 MDM - Nausea/Vomiting/Diarrhea MDM Narrative Medical decision making narrative: 1) Differential diagnosis: DKA, gastroparesis, gastritis 2) Comorbidities: diabetes, gastroparesis, esophagitis 3) External notes reviewed: GI notes, admission records 4) History sources independently obtained from: [] 5) Discussion of management with: rn wound care, hospitalist 6) Independent interpretation of: [] 7) Diagnostic tests or therapies considered but not ordered: [] 8) Social determinants of health: [] 9) Shared decision makin-year-old female with history of diabetes on insulin presents here with nausea vomiting, she states she has still been using her insulin, denies any infectious symptoms, is actively retching here. Multiple rounds of antiemetics provided, IV fluids started, she is in DKA with then and gap of 25 and bicarb of 13 and beta hydroxybutyrate of 6. Discussed with ICU doctor and hospitalist for admission. Started on insulin drip. Lab Data 06/26/24 04:13 06/26/24 04:13 Labs: Lab Results 06/26/24 06/26/24 06/26/24 Range/Units 02:35 04:13 04:13 WBC 15.9 H (4.5-10.0) K/mm3 RBC 4.71 (4.2-5.4) M/mm3 Hgb 13.2 (12.0-15.0) g/dL Hct 39.3 (37.0-47.0) % MCV 83.4 (80-100) fl MCH 28.0 (26-34) pg MCHC 33.6 (32-36) g/dl RDW 13.8 (11.5-14.5) % Plt Count 317 (150-375) k/mm3 MPV 10.8 H (7.4-10.4) fl Immature Gran % (Auto) 0.4 (0-0.5) % Neut % (Auto) 92.9 H (45.5-73.1) % Lymph % (Auto) 4.7 L (18.3-44.2) % [place] % (Auto) 1.6 L (2.6-8.5) % Eos % (Auto) 0.1 (0-4.4) % Baso % (Auto) 0.3 (0.2-1.2) % Lymph # (Auto) 0.75 L (0.9-3.2) K/mm3 [place] # (Auto) 0.3 (0.1-0.6) K/mm3 Eos # (Auto) 0.0 (0-0.3) K/mm3 Baso # (Auto) 0.0 (0.0-0.1) K/mm3 Abs Immat Gran (auto) 0.06 H (0.00-0.031) K/mm3 Absolute Neuts (auto) 14.8 H (1.3-6.7) K/mm3 Absolute Nucleated RBC 0.000 (0.0-0.012) K/mm3 Nucleated RBC % 0.0 (0.0-0.2) % Platelet Estimate Adequate (Adequate) Hypochromasia 1+ Ovalocytes 1+ Schistocytes None seen Sodium 140 Cancelled (137-145) mmol/L Potassium 4.2 (3.4-5.0) mmol/L Chloride (98-107) mmol/L Carbon Dioxide (22-30) mmol/L Anion Gap (4-12) mmol/L BUN (7-17) mg/dL Creatinine (0.7-1.0) mg/dL Estim Creat Clear Calc ml/min Estimated GFR (59 - ) Glucose (65-110) mg/dL POC Capillary Glucose 356 H (65-105) mg/dl Lactic Acid (0.7-2.0) mmol/L Calcium (8.4-10.2) mg/dL Total Bilirubin (0.2-1.3) mg/dL AST (14-36) U/L ALT (6-35) U/L Alkaline Phosphatase (38-126) U/L Total Protein (6.3-8.2) g/dL Albumin (3.5-5.1) g/dL Lipase (23-300) U/L Beta-Hydroxybutyrate/Acetoacetate (0.02-0.27) mmol/L 06/26/24 06/26/24 06/26/24 Range/Units 04:13 04:13 04:13 WBC (4.5-10.0) K/mm3 RBC (4.2-5.4) M/mm3 Hgb (12.0-15.0) g/dL Hct (37.0-47.0) % MCV (80-100) fl MCH (26-34) pg MCHC (32-36) g/dl RDW (11.5-14.5) % Plt Count (150-375) k/mm3 MPV (7.4-10.4) fl Immature Gran % (Auto) (0-0.5) % Neut % (Auto) (45.5-73.1) % Lymph % (Auto) (18.3-44.2) % [place] % (Auto) (2.6-8.5) % Eos % (Auto) (0-4.4) % Baso % (Auto) (0.2-1.2) % Lymph # (Auto) (0.9-3.2) K/mm3 [place] # (Auto) (0.1-0.6) K/mm3 Eos # (Auto) (0-0.3) K/mm3 Baso # (Auto) (0.0-0.1) K/mm3 Abs Immat Gran (auto) (0.00-0.031) K/mm3 Absolute Neuts (auto) (1.3-6.7) K/mm3 Absolute Nucleated RBC (0.0-0.012) K/mm3 Nucleated RBC % (0.0-0.2) % Platelet Estimate (Adequate) Hypochromasia Ovalocytes Schistocytes Sodium (137-145) mmol/L Potassium Cancelled (3.4-5.0) mmol/L Chloride 102 Cancelled (98-107) mmol/L Carbon Dioxide 13 L Cancelled (22-30) mmol/L Anion Gap 25 H (4-12) mmol/L BUN (7-17) mg/dL Creatinine (0.7-1.0) mg/dL Estim Creat Clear Calc ml/min Estimated GFR (59 - ) Glucose (65-110) mg/dL POC Capillary Glucose (65-105) mg/dl Lactic Acid (0.7-2.0) mmol/L Calcium (8.4-10.2) mg/dL Total Bilirubin (0.2-1.3) mg/dL AST (14-36) U/L ALT (6-35) U/L Alkaline Phosphatase (38-126) U/L Total Protein (6.3-8.2) g/dL Albumin (3.5-5.1) g/dL Lipase (23-300) U/L Beta-Hydroxybutyrate/Acetoacetate (0.02-0.27) mmol/L 06/26/24 06/26/24 06/26/24 Range/Units 04:13 04:13 04:13 WBC (4.5-10.0) K/mm3 RBC (4.2-5.4) M/mm3 Hgb (12.0-15.0) g/dL Hct (37.0-47.0) % MCV (80-100) fl MCH (26-34) pg MCHC (32-36) g/dl RDW (11.5-14.5) % Plt Count (150-375) k/mm3 MPV (7.4-10.4) fl Immature Gran % (Auto) (0-0.5) % Neut % (Auto) (45.5-73.1) % Lymph % (Auto) (18.3-44.2) % [place] % (Auto) (2.6-8.5) % Eos % (Auto) (0-4.4) % Baso % (Auto) (0.2-1.2) % Lymph # (Auto) (0.9-3.2) K/mm3 [place] # (Auto) (0.1-0.6) K/mm3 Eos # (Auto) (0-0.3) K/mm3 Baso # (Auto) (0.0-0.1) K/mm3 Abs Immat Gran (auto) (0.00-0.031) K/mm3 Absolute Neuts (auto) (1.3-6.7) K/mm3 Absolute Nucleated RBC (0.0-0.012) K/mm3 Nucleated RBC % (0.0-0.2) % Platelet Estimate (Adequate) Hypochromasia Ovalocytes Schistocytes Sodium (137-145) mmol/L Potassium (3.4-5.0) mmol/L Chloride (98-107) mmol/L Carbon Dioxide (22-30) mmol/L Anion Gap Cancelled (4-12) mmol/L BUN 16 Cancelled (7-17) mg/dL Creatinine 0.80 Cancelled (0.7-1.0) mg/dL Estim Creat Clear Calc 95 ml/min Estimated GFR (59 - ) Glucose (65-110) mg/dL POC Capillary Glucose (65-105) mg/dl Lactic Acid (0.7-2.0) mmol/L Calcium (8.4-10.2) mg/dL Total Bilirubin (0.2-1.3) mg/dL AST (14-36) U/L ALT (6-35) U/L Alkaline Phosphatase (38-126) U/L Total Protein (6.3-8.2) g/dL Albumin (3.5-5.1) g/dL Lipase (23-300) U/L Beta-Hydroxybutyrate/Acetoacetate (0.02-0.27) mmol/L 06/26/24 06/26/24 06/26/24 Range/Units 04:13 04:13 04:13 WBC (4.5-10.0) K/mm3 RBC (4.2-5.4) M/mm3 Hgb (12.0-15.0) g/dL Hct (37.0-47.0) % MCV (80-100) fl MCH (26-34) pg MCHC (32-36) g/dl RDW (11.5-14.5) % Plt Count (150-375) k/mm3 MPV (7.4-10.4) fl Immature Gran % (Auto) (0-0.5) % Neut % (Auto) (45.5-73.1) % Lymph % (Auto) (18.3-44.2) % [place] % (Auto) (2.6-8.5) % Eos % (Auto) (0-4.4) % Baso % (Auto) (0.2-1.2) % Lymph # (Auto) (0.9-3.2) K/mm3 [place] # (Auto) (0.1-0.6) K/mm3 Eos # (Auto) (0-0.3) K/mm3 Baso # (Auto) (0.0-0.1) K/mm3 Abs Immat Gran (auto) (0.00-0.031) K/mm3 Absolute Neuts (auto) (1.3-6.7) K/mm3 Absolute Nucleated RBC (0.0-0.012) K/mm3 Nucleated RBC % (0.0-0.2) % Platelet Estimate (Adequate) Hypochromasia Ovalocytes Schistocytes Sodium (137-145) mmol/L Potassium (3.4-5.0) mmol/L Chloride (98-107) mmol/L Carbon Dioxide (22-30) mmol/L Anion Gap (4-12) mmol/L BUN (7-17) mg/dL Creatinine (0.7-1.0) mg/dL Estim Creat Clear Calc Cancelled ml/min Estimated GFR > 60 Cancelled (59 - ) Glucose 371 H Cancelled (65-110) mg/dL POC Capillary Glucose (65-105) mg/dl Lactic Acid 2.8 H (0.7-2.0) mmol/L Calcium 10.2 (8.4-10.2) mg/dL Total Bilirubin (0.2-1.3) mg/dL AST (14-36) U/L ALT (6-35) U/L Alkaline Phosphatase (38-126) U/L Total Protein (6.3-8.2) g/dL Albumin (3.5-5.1) g/dL Lipase (23-300) U/L Beta-Hydroxybutyrate/Acetoacetate (0.02-0.27) mmol/L 06/26/24 06/26/24 06/26/24 Range/Units 04:13 04:13 04:13 WBC (4.5-10.0) K/mm3 RBC (4.2-5.4) M/mm3 Hgb (12.0-15.0) g/dL Hct (37.0-47.0) % MCV (80-100) fl MCH (26-34) pg MCHC (32-36) g/dl RDW (11.5-14.5) % Plt Count (150-375) k/mm3 MPV (7.4-10.4) fl Immature Gran % (Auto) (0-0.5) % Neut % (Auto) (45.5-73.1) % Lymph % (Auto) (18.3-44.2) % [place] % (Auto) (2.6-8.5) % Eos % (Auto) (0-4.4) % Baso % (Auto) (0.2-1.2) % Lymph # (Auto) (0.9-3.2) K/mm3 [place] # (Auto) (0.1-0.6) K/mm3 Eos # (Auto) (0-0.3) K/mm3 Baso # (Auto) (0.0-0.1) K/mm3 Abs Immat Gran (auto) (0.00-0.031) K/mm3 Absolute Neuts (auto) (1.3-6.7) K/mm3 Absolute Nucleated RBC (0.0-0.012) K/mm3 Nucleated RBC % (0.0-0.2) % Platelet Estimate (Adequate) Hypochromasia Ovalocytes Schistocytes Sodium (137-145) mmol/L Potassium (3.4-5.0) mmol/L Chloride (98-107) mmol/L Carbon Dioxide (22-30) mmol/L Anion Gap (4-12) mmol/L BUN (7-17) mg/dL Creatinine (0.7-1.0) mg/dL Estim Creat Clear Calc ml/min Estimated GFR (59 - ) Glucose (65-110) mg/dL POC Capillary Glucose (65-105) mg/dl Lactic Acid (0.7-2.0) mmol/L Calcium Cancelled (8.4-10.2) mg/dL Total Bilirubin 1.7 H Cancelled (0.2-1.3) mg/dL AST 30 Cancelled (14-36) U/L ALT 16 (6-35) U/L Alkaline Phosphatase (38-126) U/L Total Protein (6.3-8.2) g/dL Albumin (3.5-5.1) g/dL Lipase (23-300) U/L Beta-Hydroxybutyrate/Acetoacetate (0.02-0.27) mmol/L 06/26/24 06/26/24 06/26/24 Range/Units 04:13 04:13 04:13 WBC (4.5-10.0) K/mm3 RBC (4.2-5.4) M/mm3 Hgb (12.0-15.0) g/dL Hct (37.0-47.0) % MCV (80-100) fl MCH (26-34) pg MCHC (32-36) g/dl RDW (11.5-14.5) % Plt Count (150-375) k/mm3 MPV (7.4-10.4) fl Immature Gran % (Auto) (0-0.5) % Neut % (Auto) (45.5-73.1) % Lymph % (Auto) (18.3-44.2) % [place] % (Auto) (2.6-8.5) % Eos % (Auto) (0-4.4) % Baso % (Auto) (0.2-1.2) % Lymph # (Auto) (0.9-3.2) K/mm3 [place] # (Auto) (0.1-0.6) K/mm3 Eos # (Auto) (0-0.3) K/mm3 Baso # (Auto) (0.0-0.1) K/mm3 Abs Immat Gran (auto) (0.00-0.031) K/mm3 Absolute Neuts (auto) (1.3-6.7) K/mm3 Absolute Nucleated RBC (0.0-0.012) K/mm3 Nucleated RBC % (0.0-0.2) % Platelet Estimate (Adequate) Hypochromasia Ovalocytes Schistocytes Sodium (137-145) mmol/L Potassium (3.4-5.0) mmol/L Chloride (98-107) mmol/L Carbon Dioxide (22-30) mmol/L Anion Gap (4-12) mmol/L BUN (7-17) mg/dL Creatinine (0.7-1.0) mg/dL Estim Creat Clear Calc ml/min Estimated GFR (59 - ) Glucose (65-110) mg/dL POC Capillary Glucose (65-105) mg/dl Lactic Acid (0.7-2.0) mmol/L Calcium (8.4-10.2) mg/dL Total Bilirubin (0.2-1.3) mg/dL AST (14-36) U/L ALT Cancelled (6-35) U/L Alkaline Phosphatase 73 Cancelled (38-126) U/L Total Protein 9.0 H Cancelled (6.3-8.2) g/dL Albumin 5.1 (3.5-5.1) g/dL Lipase (23-300) U/L Beta-Hydroxybutyrate/Acetoacetate (0.02-0.27) mmol/L 06/26/24 06/26/24 Range/Units 04:13 04:13 WBC (4.5-10.0) K/mm3 RBC (4.2-5.4) M/mm3 Hgb (12.0-15.0) g/dL Hct (37.0-47.0) % MCV (80-100) fl MCH (26-34) pg MCHC (32-36) g/dl RDW (11.5-14.5) % Plt Count (150-375) k/mm3 MPV (7.4-10.4) fl Immature Gran % (Auto) (0-0.5) % Neut % (Auto) (45.5-73.1) % Lymph % (Auto) (18.3-44.2) % [place] % (Auto) (2.6-8.5) % Eos % (Auto) (0-4.4) % Baso % (Auto) (0.2-1.2) % Lymph # (Auto) (0.9-3.2) K/mm3 [place] # (Auto) (0.1-0.6) K/mm3 Eos # (Auto) (0-0.3) K/mm3 Baso # (Auto) (0.0-0.1) K/mm3 Abs Immat Gran (auto) (0.00-0.031) K/mm3 Absolute Neuts (auto) (1.3-6.7) K/mm3 Absolute Nucleated RBC (0.0-0.012) K/mm3 Nucleated RBC % (0.0-0.2) % Platelet Estimate (Adequate) Hypochromasia Ovalocytes Schistocytes Sodium (137-145) mmol/L Potassium (3.4-5.0) mmol/L Chloride (98-107) mmol/L Carbon Dioxide (22-30) mmol/L Anion Gap (4-12) mmol/L BUN (7-17) mg/dL Creatinine (0.7-1.0) mg/dL Estim Creat Clear Calc ml/min Estimated GFR (59 - ) Glucose (65-110) mg/dL POC Capillary Glucose (65-105) mg/dl Lactic Acid (0.7-2.0) mmol/L Calcium (8.4-10.2) mg/dL Total Bilirubin (0.2-1.3) mg/dL AST (14-36) U/L ALT (6-35) U/L Alkaline Phosphatase (38-126) U/L Total Protein (6.3-8.2) g/dL Albumin Cancelled (3.5-5.1) g/dL Lipase 27 Cancelled (23-300) U/L Beta-Hydroxybutyrate/Acetoacetate 6.09 H (0.02-0.27) mmol/L Critical Care Time Critical Care Time Critical Care Time: Yes Total Critical Care Time: 31 Discharge Plan Discharge Clinical Impression: Nausea and vomiting, DKA (diabetic ketoacidoses) Patient Disposition: Still a Patient Condition: Serious Prescriptions: No Action thiamine HCl (vitamin B1) 100 mg tablet 100 mg PO DAILY (DME) Omnipod 5 G6-G7 Intro Kt(Gen5) Cartridge See Rx Instructions .Route Qty: 1 0RF Rx Instructions: As directed (DME) Omnipod 5 G6-G7 Pods (Gen 5) Cartridge See Rx Instructions .Route Qty: 30 0RF Rx Instructions: Change every 3 days folic acid 1 mg tablet 1 mg PO DAILY Qty: 90 0RF pantoprazole 40 mg tablet,delayed release (DR/EC) 40 mg PO QAM Qty: 90 1RF insulin lispro 100 unit/mL solution See Rx Instructions subcut PRN MDD 50 Qty: 60 0RF Rx Instructions: for insulin pump (DME) Dexcom G6 Sensor Device See Rx Instructions .ROUTE .MEDSUPPLY Qty: 9 2RF Rx Instructions: every 10 days (DME) insulin pump cart,auto,BT,G6/7 Cartridge See Rx Instructions .Route Qty: 45 4RF Rx Instructions: Change every 3 days Gvoke HypoPen 2-Pack 1 mg/0.2 mL auto-injector 1 mg subcut ONCE Qty: 0.4 0RF Rx Instructions: as a single dose; may repeat once after 15 minutes if no response glucose 4 gram tablet,chewable 16 g PO Q15M PRN (Reason: hypoglycemia) Qty: 360 0RF Rx Instructions: until symptoms of low blood sugar are controlled lisinopril 2.5 mg tablet 2.5 mg PO DAILY Qty: 90 0RF ondansetron 4 mg tablet,disintegrating 4 mg PO .every 8 hours as nee Qty: 20 0RF magnesium oxide 400 mg (241.3 mg magnesium) Tablet 400 mg PO DAILY Qty: 5 0RF cholecalciferol (vitamin D3) 50 mcg (2,000 unit) capsule 50 mcg PO DAILY Qty: 90 0RF gabapentin 300 mg capsule 300 mg PO QHS Qty: 90 1RF (DME) Omnipod 5 G6-G7 Intro Kt(Gen5) Cartridge See Rx Instructions .Route Qty: 1 0RF Rx Instructions: As directed Follow-up/Referrals: PHYSICIAN,CHARGE PREPARATION TECHNICIAN [Primary Care Provider] -
[2024-06-26] MEDS: METOCLOPRAMIDE HCL INJ 10 MG/2 ML VIAL IV PUSH (04:13)
[2024-06-26] MEDS: LACTATED RINGERS 1,000 ML 999 ML IV CONT ×3 (04:14→05:12)
[2024-06-26 04:21] LABS: Basophils Percent Auto 0.3 % (0.2-1.2); Eosinophils Percent Auto 0.1 % (0-4.4); Hematocrit 39.3 % (37.0-47.0); Hemoglobin 13.2 g/dL (12.0-15.0); Immature Granulocyte Absolute 0.06 K/mm3 (0.00-0.031); Immature Granulocyte Percent A 0.4 % (0-0.5); Lymphocytes Absolute Auto 0.75 K/mm3 (0.9-3.2); Lymphocytes Percent Auto 4.7 % (18.3-44.2); Mean Corpuscular HGB Conc 33.6 g/dl (32-36); Mean Corpuscular Volume 83.4 fl (80-100); Mean Platelet Volume 10.8 fl (7.4-10.4); Monocytes Absolute Auto 0.3 K/mm3 (0.1-0.6); Monocytes Percent Auto 1.6 % (2.6-8.5); Neutrophils Absolute Auto 14.8 K/mm3 (1.3-6.7); Neutrophils Percent Auto 92.9 % (45.5-73.1); Platelet Count Result 317 k/mm3 (150-375); Red Blood Count 4.71 M/mm3 (4.2-5.4); Red Cell Distribution Width 13.8 % (11.5-14.5); White Blood Count 15.9 K/mm3 (4.5-10.0)
[2024-06-26 04:29] LABS: Lactic Acid Reflex 2.8 mmol/L (0.7-2.0)
[2024-06-26 04:43] LABS: Alanine Aminotransferase 16 U/L (6-35); Albumin Level 5.1 g/dL (3.5-5.1); Alkaline Phosphatase 73 U/L (38-126); Anion Gap 25 mmol/L (4-12); Aspartate Amino Transferase 30 U/L (14-36); Bilirubin,Total 1.7 mg/dL (0.2-1.3); Blood Urea Nitrogen 16 mg/dL (7-17); Calcium 10.2 mg/dL (8.4-10.2); Carbon Dioxide 13 mmol/L (22-30); Chloride 102 mmol/L (98-107); Estimated CRCL calculation 95 ml/min; Estimated Glomerular Filt Rate > 60; Glucose 371 mg/dL (65-110); Lipase 27 U/L (23-300); Potassium 4.2 mmol/L (3.4-5.0); Sodium 140 mmol/L (137-145)
[2024-06-26] MEDS: HALOPERIDOL LACTATE 5 MG/ML VIAL 2.5 MG IV PUSH (04:48)
[2024-06-26 04:58] LABS: Beta-Hydroxybutyrate/Acetoacetate 6.09 mmol/L (0.02-0.27)
[2024-06-26 05:08] LABS: Hypochromasia 1+; Ovalocytes 1+; Platelet Estimate Adequate (Adequate); Schistocytes None Seen
[2024-06-26] MEDS: INSULIN HUMAN REGULAR (*BKC) 100 UNITS/ML 10 UNITS IV PUSH (05:14)
[2024-06-26] MEDS: POTASSIUM CHLORIDE INJ 40 MEQ in SODIUM CHLORIDE 0.9% IV 500 ML 130 MEQ IVPB (05:33)
[2024-06-26] MEDS: INSULIN HUMAN REGULAR (*BKC) 100 UNITS in SODIUM CHLORIDE 0.9% IV 99 ML 9.5 UNITS IV CONT (05:33)
[2024-06-26 06:30] LABS: Glucose Point of Care 236 mg/dl (65-105)
[2024-06-26 06:30] LABS: Glucose Point of Care 365 mg/dl (65-105)
[2024-06-26] MEDS: ONDANSETRON INJ 4 MG/2 ML VIAL IV PUSH ×3 (06:45→18:26)
[2024-06-26 07:18] LABS: Reflex Lactic Acid Yes or No Add Lactic
[2024-06-26] MEDS: DEXTROSE 5%/0.45% SOD CHL 1,000 ML 150 ML (07:27)
--- NOTE | 2024-06-26 07:28 | PC.NURSE ---
This patient, Tara Hinkle, was admitted to Intensive Care Unit-5 at 0655. Patient/family oriented to hospital policies and general routines including ID bracelet, bed and alarms, visiting hours, pain management, procedures, bathroom and other care routines, personal items, smoking policy, room service/diet, and visiting hours. Information on how to activate the Rapid Response Team has been discussed. Patient/Family are encouraged to report perceived risks to care and to ask questions if they do not understand what they are told or what they should do.
[2024-06-26 07:39] LABS: Glucose Point of Care 139 mg/dl (65-105)
[2024-06-26 07:50] LABS: Magnesium 1.4 mg/dL (1.6-2.3); Phosphorus 1.7 mg/dL (2.5-4.5)
[2024-06-26 07:51] LABS: Anion Gap 15 mmol/L (4-12); Blood Urea Nitrogen 12 mg/dL (7-17); Calcium 9.6 mg/dL (8.4-10.2); Carbon Dioxide 22 mmol/L (22-30); Chloride 106 mmol/L (98-107); Estimated CRCL calculation 108 ml/min; Estimated Glomerular Filt Rate > 60; Glucose 134 mg/dL (65-110); Lactic Acid 3.2 mmol/L (0.7-2.0); Potassium 3.8 mmol/L (3.4-5.0); Sodium 143 mmol/L (137-145)
[2024-06-26 07:52] LABS: Anion Gap 15 mmol/L (4-12); Blood Urea Nitrogen 12 mg/dL (7-17); Calcium 9.7 mg/dL (8.4-10.2); Carbon Dioxide 22 mmol/L (22-30); Chloride 106 mmol/L (98-107); Estimated CRCL calculation 108 ml/min; Estimated Glomerular Filt Rate > 60; Glucose 135 mg/dL (65-110); Potassium 3.8 mmol/L (3.4-5.0); Sodium 143 mmol/L (137-145)
[2024-06-26 08:01] LABS: Hemoglobin A1C 8.9 % (<5.7)
[2024-06-26 08:32] LABS: Glucose Point of Care 83 mg/dl (65-105)
[2024-06-26 09:43] LABS: Glucose Point of Care 104 mg/dl (65-105)
[2024-06-26] MEDS: PANTOPRAZOLE SODIUM IV 40 MG VIAL IV PUSH ×2 (09:46→21:05)
[2024-06-26] MEDS: PROMETHAZINE HCL 25 MG/ML AMPUL 12.5 MG IV PUSH ×3 (09:46→22:38)
[2024-06-26] MEDS: MAGNESIUM SULF 2 GM/WATER 50ML 2 GM/50 ML BAG IVPB (09:47)
[2024-06-26 10:39] LABS: Glucose Point of Care 151 mg/dl (65-105)
[2024-06-26 11:17] LABS: Add Urine Microscopic? NO; Appearance Urine Clear (Clear); Bilirubin Urine Negative (Negative); Blood Urine Negative (Negative); Color Urine Yellow (Yellow); Glucose Urine UA 2+ mg/dL (Negative); Ketones Urine 3+ mg/dL (Negative); Leukocyte Esterase Ur Negative LEU/UL (Negative); Nitrate Urine Negative (Negative); Protein Urine Negative (Negative); Specific Grav Ur 1.014 (1.001-1.035); Urobilinogen Urine 0.2 mg/dL (<2.0); pH Urine 5.5 (5.0-9.0)
[2024-06-26 11:54] LABS: Glucose Point of Care 204 mg/dl (65-105)
[2024-06-26 12:44] LABS: Glucose Point of Care 211 mg/dl (65-105)
--- NOTE | 2024-06-26 13:16 | P.CONIN_ITS ---
Assessment and Plan Assessment and plan (1) DKA (diabetic ketoacidoses): Code(s): E11.10 - Type 2 diabetes mellitus with ketoacidosis without coma Status: Acute Assessment and Plan: Pt was given IVF bolus and started on infusion Insulin infusion started and Q1H glucose monitoring is being done Serial labs ordered Potassium replacement ordered. Will replace phosphorous Will transition to SC insulin once AG is closed (2) Esophagitis: Code(s): K20.90 - Esophagitis, unspecified without bleeding Status: Acute Assessment and Plan: PPI Plan DVT prophylaxis -SCD Stress ulcer prophylaxis -PPI Nutrition -clear liquid diet Code Status - Full Code Total Critical Care Time - 35 minutes Due to a high probability of clinically significant, life threatening deterioration, the patient required my highest level of preparedness to intervene emergently and I personally spent this critical care time directly and personally managing the patient. This critical care time included obtaining a history; examining the patient; pulse oximetry; ordering and review of studies; arranging urgent treatment with development of a management plan; evaluation of patient's response to treatment; frequent reassessment; and discussions with other providers. It was exclusive of separately billable procedures and treating other patients and teaching time. Please see Assessment and Plan section and the rest of the note for further information on patient assessment and treatment Substance Abuse Nurse Consult Note Consult date: 06/26/24 Reason for consult: DKA HPI: Tara Hinkle is a 39 year old female with past medical history type 1 diabetes and gastroparesis who presented to ER with chief complaint of nausea vomiting after she ran out of her insulin in her insulin pump.. She states that yesterday while sleeping her insulin pump ran out of insulin and she did not have additional insulin cartridges. Around 3:00 p.m. yesterday she started having nausea vomiting and feeling sick. She feels weak and tired. Denies any hematemesis. No abdominal pain fever cough shortness of breath dysuria hematuria hematochezia melena abdominal pain chest pain. All the systems were reviewed and were negative. She does complain vaginal discharge which was evaluated in [facility] on 06/24 and testing for infection was done. In ER patient was found to be in DKA and was given IV fluids and started IV insulin infusion and IV fluids and admitted to ICU for further evaluation management. At this time patient states she feels better but still has some nausea but is willing to try liquid diet Review of Systems Review of Systems: All systems reviewed & are unremarkable except as noted in HPI and below (HPI) [facility] Past Medical History Medical History Elevated liver enzymes Exposure to sexually transmitted disease (STD) Type 1 diabetes mellitus Diagnosed at the age of 7. Hemoglobin A1c was 10.8% on 08/09/2020. Surgical History Surgical History History of 3 sections History of gynecological procedure 04/29/2020- mirena iud insertion - 10/23/2021 mirena iud removal -nm Family History Family History Grandparent Breast cancer Father Diabetes mellitus Other Hypertension Social History Social History Smoking packs per day: 1 Smoking cigarettes per day: 20.0 Years smoked: 15 Smoking pack-years: 15.00 Smoking status: Current every day smoker Tobacco type: cigarettes Second hand tobacco smoke exposure: No Alcohol intake: current Drinks per week: 20 Alcohol use details: occasional Substance use: current Substance use type: marijuana Last use: 08/12/23 Do You Feel Safe in your Home?: Yes Lack of Transportation: No Lack of Food: Never True Current Housing: I Have Housing Concerned About Future Housing: No Difficulty Paying Gas/Electric Bills: No Difficulty Paying for Meds: No Currently Unemployed: No Education: High School Diploma/GED Difficulty w/ Childcare or Family Care: No Living arrangements: with family Occupation/Education: unemployed Gender identity (if verbalized by the patient): Female Sexual Orientation (if Verbalized by the Patient): Straight or Heterosexual Spiritual care concerns: No Meds Home Medications and Allergies Home Medications Medication Instructions Recorded Confirmed Type thiamine HCl (vitamin B1) 100 mg 100 mg PO DAILY 01/08/24 06/24/24 History tablet folic acid 1 mg tablet 1 mg PO DAILY #90 tabs 01/09/24 06/24/24 Rx insulin pump cart,auto,BT,G6/7 #30 ea 01/09/24 06/24/24 Rx (Omnipod 5 G6-G7 Pods (Gen 5) subcutaneous cartridge) insulin pump cartridge,auto #1 ea 01/09/24 06/24/24 Rx dose,BT,G6/G7 with controller subcutaneous (Omnipod 5 G6-G7 Intro Kit (Gen 5) subcutaneous cartridge) pantoprazole 40 mg tablet,delayed 40 mg PO QAM #90 tabs 01/09/24 06/24/24 Rx release cholecalciferol (vitamin D3) 50 50 mcg PO DAILY #90 caps 01/17/24 06/24/24 Rx mcg (2,000 unit) capsule gabapentin 300 mg capsule 300 mg PO QHS #90 caps 01/17/24 06/24/24 Rx lisinopril 2.5 mg tablet 2.5 mg PO DAILY #90 tabs 01/30/24 06/24/24 Rx ondansetron 4 mg disintegrating 4 mg PO .every 8 hours as nee #20 01/30/24 06/24/24 Rx tablet tabs magnesium oxide 400 mg (241.3 mg 400 mg PO DAILY #5 tabs 04/25/24 06/24/24 Rx magnesium) tablet insulin pump cartridge,auto #1 ea 05/14/24 06/24/24 Rx dose,BT,G6/G7 with controller subcutaneous blood-glucose sensor (Dexcom G6 #9 ea 06/02/24 06/24/24 Rx Sensor device) glucagon 1 mg/0.2 mL subcutaneous 1 mg (0.2 mL) subcut ONCE #0.4 mL 06/02/24 06/24/24 Rx auto-injector (Gvoke HypoPen 2-Pack) glucose 4 gram chewable tablet 16 g PO Q15M PRN hypoglycemia #360 06/02/24 06/24/24 Rx tabs insulin lispro 100 unit/mL See Rx Instructions subcut PRN 06/02/24 06/24/24 Rx subcutaneous solution insulin pump #60 mL insulin pump cart,auto,BT,G6/7 #45 ea 06/02/24 06/24/24 Rx Allergies Allergy/AdvReac Type Severity Reaction Status Date / Time No Known Allergies Allergy Verified 06/24/24 13:56 Vital Signs Vital Signs - 24 hr 06/26/24 02:33 06/26/24 05:38 06/26/24 07:00 Temperature 36.8 C Pulse Rate 92 106 H 100 Respiratory Rate 24 H 15 19 Blood Pressure 147/81 H 124/70 123/73 Pulse Oximetry 100 100 100 Oxygen Delivery Room Air 06/26/24 08:00 06/26/24 08:00 06/26/24 10:00 Temperature Pulse Rate 86 105 H 105 H Respiratory Rate 18 Blood Pressure 123/73 Pulse Oximetry 99 Oxygen Delivery 06/26/24 10:00 06/26/24 12:00 Temperature 37.2 C Pulse Rate 105 H 100 Respiratory Rate 16 17 Blood Pressure 140/79 133/80 Pulse Oximetry 100 100 Oxygen Delivery Exam Narrative: General: Pt is alert awake and in NAD Lungs/Chest: Trachea central Clear BS B/L, No crackles or wheezing. Cardiac: RRR. Normal S1 S2. No murmurs Circulation: Pedal pulses are intact and symmetrical. Abdomen: Normal bowel sounds.. Soft. NT. ND. Extremities: No clubbing, cyanosis or edema. Warm : Christian in place Neurologic: Follows commands. Moves all 4 extremities PERRL Skin: No Rash Results Labs 06/26/24 04:13 06/26/24 07:35 Labs: Short CBC 06/26/24 Range/Units 04:13 WBC 15.9 H (4.5-10.0) K/mm3 Hgb 13.2 (12.0-15.0) g/dL Hct 39.3 (37.0-47.0) % Plt Count 317 (150-375) k/mm3 BMP 06/26/24 06/26/24 06/26/24 04:13 04:13 04:13 Sodium 140 Cancelled Potassium 4.2 Cancelled Chloride 102 Carbon Dioxide BUN Creatinine Glucose Calcium 06/26/24 06/26/24 06/26/24 04:13 04:13 04:13 Sodium Potassium Chloride Cancelled Carbon Dioxide 13 L Cancelled BUN 16 Cancelled Creatinine 0.80 Glucose Calcium 06/26/24 06/26/24 06/26/24 04:13 04:13 04:13 Sodium Potassium Chloride Carbon Dioxide BUN Creatinine Cancelled Glucose 371 H Cancelled Calcium 10.2 Cancelled 06/26/24 06/26/24 06/26/24 07:35 07:35 07:35 Sodium 143 143 Potassium 3.8 3.8 Chloride 106 Carbon Dioxide BUN Creatinine Glucose Calcium 06/26/24 06/26/24 06/26/24 07:35 07:35 07:35 Sodium Potassium Chloride 106 Carbon Dioxide 22 22 BUN 12 12 Creatinine 0.70 Glucose Calcium 06/26/24 06/26/24 06/26/24 07:35 07:35 07:35 Sodium Potassium Chloride Carbon Dioxide BUN Creatinine 0.70 Glucose 135 H 134 H Calcium 9.7 9.6 Liver Function 06/26/24 06/26/24 06/26/24 Range/Units 04:13 04:13 04:13 Total Bilirubin 1.7 H Cancelled (0.2-1.3) mg/dL AST 30 Cancelled (14-36) U/L ALT 16 (6-35) U/L Alkaline Phosphatase (38-126) U/L Albumin (3.5-5.1) g/dL 06/26/24 06/26/24 06/26/24 Range/Units 04:13 04:13 04:13 Total Bilirubin (0.2-1.3) mg/dL AST (14-36) U/L ALT Cancelled (6-35) U/L Alkaline Phosphatase 73 Cancelled (38-126) U/L Albumin 5.1 Cancelled (3.5-5.1) g/dL Urine 06/26/24 Range/Units 11:06 Urine Color Yellow (Yellow) Urine Appearance Clear (Clear) Urine pH 5.5 (5.0-9.0) Ur Specific [place] 1.014 (1.001-1.035) Urine Protein Negative (Negative) mg/dL Urine Glucose (UA) 2+ H (Negative) mg/dL Hospitalist MIPS Advance Care Plan I have confirmed that the patient's Advanced Care Plan is present, code status is documented, or surrogate decision maker is listed in patient medical record.: Yes Medication Reconciliation I have utilized all available resources to obtain, update and review the patients current medications (includes all prescriptions, OTC, herbals, cannabis, and nutritional supplements).: Yes
[2024-06-26 13:27] LABS: Anion Gap 12 mmol/L (4-12); Blood Urea Nitrogen 9 mg/dL (7-17); Calcium 8.8 mg/dL (8.4-10.2); Carbon Dioxide 19 mmol/L (22-30); Chloride 104 mmol/L (98-107); Estimated CRCL calculation 94 ml/min; Estimated Glomerular Filt Rate > 60; Glucose 239 mg/dL (65-110); Potassium 4.5 mmol/L (3.4-5.0); Sodium 135 mmol/L (137-145)
[2024-06-26] MEDS: INSULIN GLARGINE (*BKC) 100 UNITS/ML 10 UNITS SUB-Q (13:53)
[2024-06-26 13:59] LABS: Glucose Point of Care 255 mg/dl (65-105)
[2024-06-26] MEDS: DEXTROSE 5%/0.45% SOD CHL 1,000 ML 150 ML IV CONT (13:59)
[2024-06-26] MEDS: SODIUM PHOSPHATE 20 MM in DEXTROSE 5% IN WATER 250 ML 50 MM IVPB (14:32)
[2024-06-26] MEDS: LACTATED RINGERS 1,000 ML 75 ML IV CONT (14:59)
[2024-06-26 15:06] LABS: Glucose Point of Care 265 mg/dl (65-105)
[2024-06-26 16:24] LABS: MRSA (PCR) NOT DETECTED (NOT DETECTE)
[2024-06-26 16:47] LABS: Glucose Point of Care 331 mg/dl (65-105)
[2024-06-26] MEDS: INSULIN ASPART (*BKC) 100 UNITS/ML SUB-Q ×2 (16:48→21:06)
--- NOTE | 2024-06-26 17:13 | PM.IMHP ---
H&P: HPI History of Present Illness Date/Time: 06/26/24 17:13 Chief Complaint: Vomiting Narrative: 39-year-old female past medical history of type 1 diabetes and gastroparesis presented to the ER on account of nausea and vomiting. Patient reported that she ran out of insulin and insulin pump denies onset of symptoms which started at 3:00 p.m. yesterday. Nontender mild shortness of breath otherwise no chest pain no abdominal pain no diarrhea no dysuria no focal symptoms. For unrelenting symptoms patient presented to the ER for proper positioning care. Vital signs stable within normal limits. Labs notable for blood glucose 356, lactic acid 3.2 beta hydroxybutyrate 6.09, anion gap 15, WBC 15.9. Patient was started on insulin IV fluid DKA protocol prior to admitting to the ICU. Review of Systems Review of Systems: All other systems were reviewed and negative except as noted in the history above. [facility] Past Medical History Medical History Elevated liver enzymes Exposure to sexually transmitted disease (STD) Type 1 diabetes mellitus Diagnosed at the age of 7. Hemoglobin A1c was 10.8% on 08/09/2020. Surgical History Surgical History History of 3 sections History of gynecological procedure 04/29/2020- mirena iud insertion - 10/23/2021 mirena iud removal -nm Family History Family History Grandparent Breast cancer Father Diabetes mellitus Other Hypertension Social History Social History Smoking packs per day: 1 Smoking cigarettes per day: 20.0 Years smoked: 25 Smoking pack-years: 25.00 Smoking status: Current every day smoker Tobacco type: cigarettes Second hand tobacco smoke exposure: No Alcohol intake: former Drinks per week: 20 Alcohol use details: occasional Substance use: current Substance use type: marijuana Last use: 08/12/23 Do You Feel Safe in your Home?: Yes Lack of Transportation: No Lack of Food: Never True Current Housing: I Have Housing Concerned About Future Housing: No Difficulty Paying Gas/Electric Bills: No Difficulty Paying for Meds: No Currently Unemployed: No Education: High School Diploma/GED Difficulty w/ Childcare or Family Care: No Living arrangements: with family Occupation/Education: unemployed Gender identity (if verbalized by the patient): Female Sexual Orientation (if Verbalized by the Patient): Straight or Heterosexual Spiritual care concerns: No Meds Home Medications and Allergies Home Medications Medication Instructions Recorded Confirmed Type thiamine HCl (vitamin B1) 100 mg 100 mg PO DAILY 01/08/24 06/26/24 History tablet folic acid 1 mg tablet 1 mg PO DAILY #90 tabs 01/09/24 06/26/24 Rx insulin pump cart,auto,BT,G6/7 #30 ea 01/09/24 06/26/24 Rx (Omnipod 5 G6-G7 Pods (Gen 5) subcutaneous cartridge) insulin pump cartridge,auto #1 ea 01/09/24 06/26/24 Rx dose,BT,G6/G7 with controller subcutaneous (Omnipod 5 G6-G7 Intro Kit(Gen 5) subcutaneous cartridge and controller) pantoprazole 40 mg tablet,delayed 40 mg PO QAM #90 tabs 01/09/24 06/26/24 Rx release cholecalciferol (vitamin D3) 50 50 mcg PO DAILY #90 caps 01/17/24 06/26/24 Rx mcg (2,000 unit) capsule gabapentin 300 mg capsule 300 mg PO QHS #90 caps 01/17/24 06/26/24 Rx lisinopril 2.5 mg tablet 2.5 mg PO DAILY #90 tabs 01/30/24 06/26/24 Rx ondansetron 4 mg disintegrating 4 mg PO .every 8 hours as nee #20 01/30/24 06/26/24 Rx tablet tabs insulin pump cartridge,auto #1 ea 05/14/24 06/26/24 Rx dose,BT,G6/G7 with controller subcutaneous blood-glucose sensor (Dexcom G6 #9 ea 06/02/24 06/26/24 Rx Sensor device) glucagon 1 mg/0.2 mL subcutaneous 1 mg (0.2 mL) subcut ONCE #0.4 mL 06/02/24 06/26/24 Rx auto-injector (Gvoke HypoPen 2-Pack) glucose 4 gram chewable tablet 16 g PO Q15M PRN hypoglycemia #360 06/02/24 06/26/24 Rx tabs insulin lispro 100 unit/mL See Rx Instructions subcut PRN 06/02/24 06/26/24 Rx subcutaneous solution insulin pump #60 mL insulin pump cart,auto,BT,G6/7 #45 ea 06/02/24 06/26/24 Rx Allergies Allergy/AdvReac Type Severity Reaction Status Date / Time No Known Allergies Allergy Verified 06/24/24 13:56 Vital Signs Vital Signs - 24 hr 06/26/24 02:33 06/26/24 05:38 06/26/24 07:00 Temperature 98.3 F Pulse Rate 92 106 H 100 Respiratory Rate 24 H 15 19 Blood Pressure 147/81 H 124/70 123/73 Pulse Oximetry 100 100 100 Oxygen Delivery Room Air 06/26/24 08:00 06/26/24 08:00 06/26/24 10:00 Temperature Pulse Rate 86 105 H 105 H Respiratory Rate 18 Blood Pressure 123/73 Pulse Oximetry 99 Oxygen Delivery 06/26/24 10:00 06/26/24 12:00 06/26/24 12:00 Temperature 98.9 F Pulse Rate 105 H 100 91 Respiratory Rate 16 17 Blood Pressure 140/79 133/80 Pulse Oximetry 100 100 Oxygen Delivery 06/26/24 14:00 06/26/24 14:00 06/26/24 16:00 Temperature Pulse Rate 102 H 101 H 103 H Respiratory Rate 15 13 Blood Pressure 140/83 110/70 Pulse Oximetry 100 100 Oxygen Delivery Exam Narrative: General: alert and comfortable Eyes: EOMI, PERRLA ENNT External ears normal, Neck is supple, no masses, Respiratory systems: Clear to auscultation Cardiovascular S1, S2, normal rhythm, no murmur, rub, or gallop; no thrill or palpable murmurs on palpation. Gastrointestinal: soft, non-tender, and non-distended abdomen with no masses; BS present Skin: no rash, lesions, ulcerations, subcutaneous nodules or induration Musculoskeletal: no abnormality and no tenderness, normal ROM Neurologic: Alert and oriented x3, non focal Mental Status Exam: normal affect H&P: Results Labs Labs: Short CBC 06/26/24 Range/Units 04:13 WBC 15.9 H (4.5-10.0) K/mm3 Hgb 13.2 (12.0-15.0) g/dL Hct 39.3 (37.0-47.0) % Plt Count 317 (150-375) k/mm3 BMP 06/26/24 06/26/24 06/26/24 04:13 04:13 04:13 Sodium 140 Cancelled Potassium 4.2 Cancelled Chloride 102 Carbon Dioxide BUN Creatinine Glucose Calcium 06/26/24 06/26/24 06/26/24 04:13 04:13 04:13 Sodium Potassium Chloride Cancelled Carbon Dioxide 13 L Cancelled BUN 16 Cancelled Creatinine 0.80 Glucose Calcium 06/26/24 06/26/24 06/26/24 04:13 04:13 04:13 Sodium Potassium Chloride Carbon Dioxide BUN Creatinine Cancelled Glucose 371 H Cancelled Calcium 10.2 Cancelled 06/26/24 06/26/24 06/26/24 07:35 07:35 07:35 Sodium 143 143 Potassium 3.8 3.8 Chloride 106 Carbon Dioxide BUN Creatinine Glucose Calcium 06/26/24 06/26/24 06/26/24 07:35 07:35 07:35 Sodium Potassium Chloride 106 Carbon Dioxide 22 22 BUN 12 12 Creatinine 0.70 Glucose Calcium 06/26/24 06/26/24 06/26/24 07:35 07:35 07:35 Sodium Potassium Chloride Carbon Dioxide BUN Creatinine 0.70 Glucose 135 H 134 H Calcium 9.7 9.6 06/26/24 13:01 Sodium 135 L Potassium 4.5 Chloride 104 Carbon Dioxide 19 L BUN 9 Creatinine 0.70 Glucose 239 H Calcium 8.8 Liver Function 06/26/24 06/26/24 06/26/24 Range/Units 04:13 04:13 04:13 Total Bilirubin 1.7 H Cancelled (0.2-1.3) mg/dL AST 30 Cancelled (14-36) U/L ALT 16 (6-35) U/L Alkaline Phosphatase (38-126) U/L Albumin (3.5-5.1) g/dL 06/26/24 06/26/24 06/26/24 Range/Units 04:13 04:13 04:13 Total Bilirubin (0.2-1.3) mg/dL AST (14-36) U/L ALT Cancelled (6-35) U/L Alkaline Phosphatase 73 Cancelled (38-126) U/L Albumin 5.1 Cancelled (3.5-5.1) g/dL Urine 06/26/24 Range/Units 11:06 Urine Color Yellow (Yellow) Urine Appearance Clear (Clear) Urine pH 5.5 (5.0-9.0) Ur Specific [place] 1.014 (1.001-1.035) Urine Protein Negative (Negative) mg/dL Urine Glucose (UA) 2+ H (Negative) mg/dL Assessment and Plan Assessment and plan (1) Acute dehydration: Code(s): E86.0 - Dehydration Status: Acute (2) DKA (diabetic ketoacidoses): Code(s): E11.10 - Type 2 diabetes mellitus with ketoacidosis without coma Status: Acute Plan DKA Patient with a history of type 1 diabetes Patient ran out of insulin and insulin pump and night before history nausea vomiting the next day. Patient already completed insulin drip and IV fluid DKA protocol. Currently on subQ insulin regimen. Resume insulin pump Monitor 1 more day if stable discharge tomorrow Nausea vomiting Secondary to DKA. Continue p.r.n. antiemetics Concern about care Monitor DM1 continue above care DVT prophylaxis on Lovenox
--- NOTE | 2024-06-26 18:43 | PC.NURSE ---
This patient, Tara Hinkle, was received from ICU 5 on 06/26/24 at 1850. Patient/family oriented to unit policies and routines. REPORT FROM [facility].
[2024-06-26 20:15] LABS: Glucose Point of Care 308 mg/dl (65-105)
[2024-06-26] MEDS: diphenhydrAMINE HCl CAP 25 MG CAPSULE PO (21:23)
[2024-06-27] VITALS (13 sets, daily range): BP systolic 95–150; BP diastolic 78–93; PULSE 90–110; RESP 12–23; TEMP 36.4–37.2; O2SAT 98–100
[2024-06-27] MEDS: ONDANSETRON INJ 4 MG/2 ML VIAL IV PUSH ×6 (00:13→23:36)
[2024-06-27 03:12] LABS: Glucose Point of Care 312 mg/dl (65-105)
[2024-06-27] MEDS: LACTATED RINGERS 1,000 ML 75 ML IV CONT (03:22)
[2024-06-27] MEDS: PROMETHAZINE HCL 25 MG/ML AMPUL 12.5 MG IV PUSH ×2 (07:32→16:01)
[2024-06-27] MEDS: PANTOPRAZOLE SODIUM IV 40 MG VIAL IV PUSH ×2 (07:34→20:54)
[2024-06-27] MEDS: ENOXAPARIN 40 MG/0.4 ML SYRINGE SUB-Q (07:34)
[2024-06-27 07:36] LABS: Hemoglobin 12.1 g/dL (12.0-15.0); Mean Corpuscular HGB Conc 31.8 g/dl (32-36); Mean Corpuscular Hemoglobin 27.7 pg (26-34); Mean Platelet Volume 11.1 fl (7.4-10.4); Platelet Count Result 305 k/mm3 (150-375); Red Blood Count 4.37 M/mm3 (4.2-5.4); White Blood Count 18.6 K/mm3 (4.5-10.0)
[2024-06-27 07:59] LABS: Alanine Aminotransferase 15 U/L (6-35); Alkaline Phosphatase 76 U/L (38-126); Anion Gap 24 mmol/L (4-12); Aspartate Amino Transferase 25 U/L (14-36); Bilirubin,Total 1.4 mg/dL (0.2-1.3); Blood Urea Nitrogen 9 mg/dL (7-17); Calcium 9.6 mg/dL (8.4-10.2); Carbon Dioxide 14 mmol/L (22-30); Chloride 100 mmol/L (98-107); Estimated CRCL calculation 94 ml/min; Estimated Glomerular Filt Rate > 60; Glucose 362 mg/dL (65-110); Magnesium 1.8 mg/dL (1.6-2.3); Potassium 4.4 mmol/L (3.4-5.0); Sodium 138 mmol/L (137-145)
[2024-06-27 08:13] LABS: Hematocrit 34.5 % (37.0-47.0); Hemoglobin 11.1 g/dL (12.0-15.0); Mean Corpuscular HGB Conc 32.2 g/dl (32-36); Mean Corpuscular Hemoglobin 27.2 pg (26-34); Mean Corpuscular Volume 84.6 fl (80-100); Mean Platelet Volume 10.4 fl (7.4-10.4); Platelet Count Result 291 k/mm3 (150-375); Red Blood Count 4.08 M/mm3 (4.2-5.4); White Blood Count 18.3 K/mm3 (4.5-10.0)
[2024-06-27 08:14] LABS: Glucose Point of Care 387 mg/dl (65-105)
[2024-06-27] MEDS: INSULIN ASPART (*BKC) 100 UNITS/ML SUB-Q ×2 (08:19)
[2024-06-27] MEDS: levoFLOXacin 750 MG/D5W 150 ML 750 MG/150 ML BAG 100 MG IVPB (08:20)
[2024-06-27 08:27] LABS: Alanine Aminotransferase 15 U/L (6-35); Albumin Level 4.8 g/dL (3.5-5.1); Alkaline Phosphatase 76 U/L (38-126); Anion Gap 21 mmol/L (4-12); Aspartate Amino Transferase 25 U/L (14-36); Bilirubin,Total 1.3 mg/dL (0.2-1.3); Blood Urea Nitrogen 10 mg/dL (7-17); Calcium 9.5 mg/dL (8.4-10.2); Carbon Dioxide 18 mmol/L (22-30); Chloride 98 mmol/L (98-107); Estimated CRCL calculation 94 ml/min; Estimated Glomerular Filt Rate > 60; Glucose 372 mg/dL (65-110); Potassium 4.4 mmol/L (3.4-5.0); Sodium 137 mmol/L (137-145)
--- NOTE | 2024-06-27 10:37 | PM.IMPN ---
Progress Note: A&P Assessment and Plan (1) Acute dehydration: Code(s): E86.0 - Dehydration Status: Acute (2) DKA (diabetic ketoacidoses): Code(s): E11.10 - Type 2 diabetes mellitus with ketoacidosis without coma Status: Acute Plan DKA Patient with a history of type 1 diabetes Patient ran out of insulin and insulin pump and night before history nausea vomiting the next day. S/p DKA protocol However anion gap 21 tis morning and patient vomited profusely last night transfer back to ICU for Insulin and IVF infusion discussed with Dr Valdes and patient accepted to ICU Nausea vomiting Secondary to DKA. Continue p.r.n. antiemetics Concern about care Monitor PNA CXR showed LLL pneumonia Started on levaquin Blood culture pending DM1 continue above care DVT prophylaxis on Lovenox Subjective Date/time seen: 06/27/24 10:37 Review of Systems Review of Systems: All other systems were reviewed and negative except as noted in the history above. All systems reviewed & are unremarkable except as noted in HPI and below (HPI) Exam Narrative: General: alert and comfortable Eyes: EOMI, PERRLA ENNT External ears normal, Neck is supple, no masses, Respiratory systems: Clear to auscultation Cardiovascular S1, S2, normal rhythm, no murmur, rub, or gallop; no thrill or palpable murmurs on palpation. Gastrointestinal: soft, non-tender, and non-distended abdomen with no masses; BS present Skin: no rash, lesions, ulcerations, subcutaneous nodules or induration Musculoskeletal: no abnormality and no tenderness, normal ROM Neurologic: Alert and oriented x3, non focal Mental Status Exam: normal affect Objective Data Vital Signs Vital Signs: Vital Signs - 24 hr 06/26/24 12:00 06/26/24 12:00 06/26/24 14:00 Temperature 98.9 F Pulse Rate 100 91 102 H Respiratory Rate 17 15 Blood Pressure 133/80 140/83 Pulse Oximetry 100 100 Oxygen Delivery 06/26/24 14:00 06/26/24 16:00 06/26/24 20:10 Temperature 97.7 F Pulse Rate 101 H 103 H 97 Respiratory Rate 13 20 Blood Pressure 110/70 162/88 H Pulse Oximetry 100 100 Oxygen Delivery 06/26/24 20:00 06/27/24 04:50 06/27/24 07:34 Temperature 98.9 F Pulse Rate 93 Respiratory Rate 20 Blood Pressure 150/93 H Pulse Oximetry 100 Oxygen Delivery Room Air Room Air Intake/Output Intake/Output: Intake & Output 06/24/24 06/25/24 06/26/24 06/27/24 23:59 23:59 23:59 23:59 Intake Total 4171.1 1128.7 Output Total 1300 1900 Balance 2871.1 -771.3 Meds/Results Medications: Active Medications Generic Name Dose Route Start Last Admin Trade Name Freq PRN Reason Stop Dose Admin Dextrose 12.5 gm 06/26/24 07:22 Dextrose 50% 25 Gm/50 Ml Syringe IV PUSH PRN PRN Hypoglycemia Protocol Enoxaparin Sodium 40 mg 06/27/24 09:00 06/27/24 07:34 Enoxaparin 40 Mg/0.4 Ml Syringe SUB-Q 40 mg DAILY KARRIE Administration Glucose 15 gm 06/26/24 07:22 Glucose Oral Gel 15 Gm Of Glucse In 37.5 Gm Tube PO PRN PRN Hypoglycemia Protocol Dextrose 1,000 mls @ 100 mls/hr 06/26/24 07:22 Dextrose 5% 1,000 Ml IVPB PRN PRN Hypoglycemia Protocol Lactated Ringer's 1,000 mls @ 75 mls/hr 06/26/24 13:35 06/27/24 03:22 Lr - Lactated Ringers Iv IV CONT 75 mls/hr .[id number] KARRIE Administration Levofloxacin/Dextrose 750 mg in 150 mls @ 100 mls/hr 06/27/24 09:00 06/27/24 08:20 Levaquin 750 Mg/D5w 150 Ml IVPB 100 mls/hr Q24H KARRIE Administration Sodium Chloride 1,000 mls @ 150 mls/hr 06/27/24 09:45 Normal Saline Iv IV CONT .Q6H40M KARRIE Potassium Chloride/Dextrose/Sod Cl 1,000 mls @ 150 mls/hr 06/27/24 09:45 Kcl 20 Meq/D5/0.45% Sod Chl IV CONT .Q6H40M KARRIE Dextrose/Sodium Chloride 1,000 mls @ 150 mls/hr 06/27/24 09:45 Dextrose 5% Sodium Chloride 0.45% IV CONT .Q6H40M KARRIE Insulin Human Regular 100 100 mls @ 6.8 mls/hr 06/27/24 10:00 units/ Sodium Chloride IV CONT .[id number] KARRIE Protocol 6.8 UNITS/HR Insulin Aspart 3 units 06/26/24 17:00 06/27/24 08:19 Insulin Aspart (*Bkc) 100 Units/Ml SUB-Q 3 units TIDWM KARRIE Administration Insulin Aspart 2 - 5 units 06/26/24 17:00 06/27/24 08:19 Insulin Aspart (*Bkc) 100 Units/Ml SUB-Q 5 units TIDWM KARRIE Administration Protocol Insulin Aspart 1 - 2 units 06/26/24 21:00 06/26/24 21:06 Insulin Aspart (*Bkc) 100 Units/Ml SUB-Q 2 units HS KARRIE Administration Protocol Insulin Glargine 10 units 06/26/24 13:45 06/26/24 13:53 Insulin Glargine (*Bkc) 100 Units/Ml SUB-Q 10 units HS KARRIE Administration Ondansetron HCl 4 mg 06/26/24 08:20 06/27/24 08:26 Ondansetron Inj 4 Mg/2 Ml Vial IV PUSH 4 mg Q4H PRN Administration Nausea And Vomiting Pantoprazole Sodium 40 mg 06/26/24 09:00 06/27/24 07:34 Pantoprazole Sodium Iv 40 Mg Vial IV PUSH 40 mg Q12HR KARRIE Administration Promethazine HCl 12.5 mg 06/26/24 16:30 06/27/24 07:32 Promethazine Hcl 25 Mg/Ml Ampul IV PUSH 12.5 mg Q6HR PRN Administration Nausea And Vomiting Radiology Results: ITS Impressions Chest X-Ray 06/26/24 17:50 IMPRESSION: Highly suggestive focal pneumonia in the left lower lobe. Follow-up to resolution is advised to exclude a mass. Labs Labs: Laboratory Results - last 24 hr 06/26/24 06/26/24 06/26/24 10:36 11:06 11:52 WBC RBC Hgb Hct MCV MCH MCHC RDW Plt Count MPV Sodium Potassium Chloride Carbon Dioxide Anion Gap BUN Creatinine Estim Creat Clear Calc Estimated GFR Glucose POC Capillary Glucose 151 H 204 H Calcium Magnesium Total Bilirubin AST ALT Alkaline Phosphatase Total Protein Albumin Urine Color Yellow Urine Appearance Clear Urine pH 5.5 Ur Specific [place] 1.014 Urine Protein Negative Urine Glucose (UA) 2+ H Urine Ketones 3+ H Ur Blood (Man) Negative Urine Nitrate Negative Urine Bilirubin Negative Urine Urobilinogen 0.2 Ur Leukocyte Esterase Negative Nasal MRSA (PCR) 06/26/24 06/26/24 06/26/24 12:42 13:01 13:51 WBC RBC Hgb Hct MCV MCH MCHC RDW Plt Count MPV Sodium 135 L Potassium 4.5 Chloride 104 Carbon Dioxide 19 L Anion Gap 12 BUN 9 Creatinine 0.70 Estim Creat Clear Calc 94 Estimated GFR > 60 Glucose 239 H POC Capillary Glucose 211 H 255 H Calcium 8.8 Magnesium Total Bilirubin AST ALT Alkaline Phosphatase Total Protein Albumin Urine Color Urine Appearance Urine pH Ur Specific [place] Urine Protein Urine Glucose (UA) Urine Ketones Ur Blood (Man) Urine Nitrate Urine Bilirubin Urine Urobilinogen Ur Leukocyte Esterase Nasal MRSA (PCR) 06/26/24 06/26/24 06/26/24 14:52 14:54 16:44 WBC RBC Hgb Hct MCV MCH MCHC RDW Plt Count MPV Sodium Potassium Chloride Carbon Dioxide Anion Gap BUN Creatinine Estim Creat Clear Calc Estimated GFR Glucose POC Capillary Glucose 265 H 331 H Calcium Magnesium Total Bilirubin AST ALT Alkaline Phosphatase Total Protein Albumin Urine Color Urine Appearance Urine pH Ur Specific [place] Urine Protein Urine Glucose (UA) Urine Ketones Ur Blood (Man) Urine Nitrate Urine Bilirubin Urine Urobilinogen Ur Leukocyte Esterase Nasal MRSA (PCR) Not detected 06/26/24 06/27/24 06/27/24 20:12 03:07 06:18 WBC 18.6 H RBC 4.37 Hgb 12.1 Hct 38.0 MCV 87.0 MCH 27.7 MCHC 31.8 L RDW 14.0 Plt Count 305 MPV 11.1 H Sodium 138 Potassium 4.4 Chloride 100 Carbon Dioxide 14 L Anion Gap 24 H BUN 9 Creatinine 0.60 L Estim Creat Clear Calc 94 Estimated GFR > 60 Glucose 362 H POC Capillary Glucose 308 H 312 H Calcium 9.6 Magnesium 1.8 Total Bilirubin 1.4 H AST 25 ALT 15 Alkaline Phosphatase 76 Total Protein 9.0 H Albumin 5.0 Urine Color Urine Appearance Urine pH Ur Specific [place] Urine Protein Urine Glucose (UA) Urine Ketones Ur Blood (Man) Urine Nitrate Urine Bilirubin Urine Urobilinogen Ur Leukocyte Esterase Nasal MRSA (PCR) 06/27/24 06/27/24 07:59 08:11 WBC 18.3 H RBC 4.08 L Hgb 11.1 L Hct 34.5 L MCV 84.6 MCH 27.2 MCHC 32.2 RDW 14.0 Plt Count 291 MPV 10.4 Sodium 137 Potassium 4.4 Chloride 98 Carbon Dioxide 18 L Anion Gap 21 H BUN 10 Creatinine 0.60 L Estim Creat Clear Calc 94 Estimated GFR > 60 Glucose 372 H POC Capillary Glucose 387 H Calcium 9.5 Magnesium Total Bilirubin 1.3 AST 25 ALT 15 Alkaline Phosphatase 76 Total Protein 8.0 Albumin 4.8 Urine Color Urine Appearance Urine pH Ur Specific [place] Urine Protein Urine Glucose (UA) Urine Ketones Ur Blood (Man) Urine Nitrate Urine Bilirubin Urine Urobilinogen Ur Leukocyte Esterase Nasal MRSA (PCR)
--- NOTE | 2024-06-27 11:06 | PC.NURSE ---
Report received at 1103 by LAZ rBito. All questions answered and plan of care reviewed. Patient to be transferred to ICU room 10.
--- NOTE | 2024-06-27 11:30 | PC.NURSE ---
This patient, aTra Hinkle, was transferred to ICU Room 210 by bed on 06/27/24 at 1125. Personal belongings sent with patient. Report given to LAZ De Dios. Appropriate documentation sent with patient.
[2024-06-27] MEDS: INSULIN HUMAN REGULAR (*BKC) 100 UNITS in SODIUM CHLORIDE 0.9% IV 99 ML 6.8 UNITS IV CONT (11:46)
[2024-06-27] MEDS: KCL 20 MEQ/D5/0.45% SOD CHL 1,000 ML 150 ML IV CONT ×2 (11:46→21:41)
[2024-06-27] MEDS: METOCLOPRAMIDE HCL INJ 10 MG/2 ML VIAL 5 MG IV PUSH (11:57)
[2024-06-27 12:33] LABS: Glucose Point of Care 193 mg/dl (65-105)
[2024-06-27 12:41] LABS: Anion Gap 19 mmol/L (4-12); Blood Urea Nitrogen 11 mg/dL (7-17); Calcium 9.4 mg/dL (8.4-10.2); Carbon Dioxide 19 mmol/L (22-30); Chloride 101 mmol/L (98-107); Estimated CRCL calculation 82 ml/min; Estimated Glomerular Filt Rate > 60; Glucose 202 mg/dL (65-110); Sodium 139 mmol/L (137-145)
[2024-06-27 13:08] LABS: Glucose Point of Care 180 mg/dl (65-105)
--- NOTE | 2024-06-27 13:19 | P.PNINT_ITS ---
Progress Note: A&P Assessment and Plan (1) DKA (diabetic ketoacidoses): Code(s): E11.10 - Type 2 diabetes mellitus with ketoacidosis without coma Status: Acute Assessment and Plan: Will start patient back on IV fluids and insulin infusion Q1H glucose monitoring will be done Serial labs ordered Monitor and replace electrolytes (2) Esophagitis: Code(s): K20.90 - Esophagitis, unspecified without bleeding Status: Acute Assessment and Plan: PPI (3) Gastroparesis: Code(s): K31.84 - Gastroparesis Status: Acute Assessment and Plan: Reglan (4) Nausea and vomiting: Code(s): R11.2 - Nausea with vomiting, unspecified Status: Acute Assessment and Plan: Patient has persistent nausea vomiting despite Zofran Compazine and Reglan Will place NG tube to suction and NPO at this time Obtain CT scan of the abdomen pelvis (5) Pneumonia: Code(s): J18.9 - Pneumonia, unspecified organism Status: Acute Assessment and Plan: Patient has a chest x-ray done yesterday which was suggestive of focal pneumonia the left lower lobe. She was started Levaquin. Blood cultures are done and pending CT scan ordered Procalcitonin level will be checked UA was not suggestive of UTI on presentation Patient is afebrile Plan DVT prophylaxis -SCD Stress ulcer prophylaxis -PPI Nutrition -npo Code Status - Full Code Total Critical Care Time - 30 minutes Due to a high probability of clinically significant, life threatening deterioration, the patient required my highest level of preparedness to intervene emergently and I personally spent this critical care time directly and personally managing the patient. This critical care time included obtaining a history; examining the patient; pulse oximetry; ordering and review of studies; arranging urgent treatment with development of a management plan; evaluation of patient's response to treatment; frequent reassessment; and discussions with other providers. It was exclusive of separately billable procedures and treating other patients and teaching time. Please see Assessment and Plan section and the rest of the note for further information on patient assessment and treatment Subjective Date/time seen: 06/27/24 Patient was transferred out of ICU yesterday after closure of anion gap. Yesterday evening and overnight patient's blood sugar remained elevated and this morning her BMP showed recurrence of acidosis and increased anion gap. Patient was transferred back to ICU. Patient states she continues to have nausea vomiting and unable to keep food down. She also complains of pain in the back of her chest on the left side. He states the pain is worse with dry heaving and vomiting. Chest x-ray yesterday was read as possible pneumonia and patient was started on Levaquin. Patient has been afebrile throughout. Patient denies any other complaints and all other systems were reviewed and were negative Review of Systems Review of Systems: All systems reviewed & are unremarkable except as noted in HPI and below (HPI) Exam Narrative: General: Pt is alert awake and in NAD Lungs/Chest: Trachea central Clear BS B/L, No crackles or wheezing. Tenderness to palpation in posterior left chest on the ribs no costovertebral angle tenderness Cardiac: RRR. Normal S1 S2. No murmurs Circulation: Pedal pulses are intact and symmetrical. Abdomen: Normal bowel sounds.. Soft. NT. ND. Extremities: No clubbing, cyanosis or edema. Warm : Christian in place Neurologic: Follows commands. Moves all 4 extremities PERRL Skin: No Rash Objective Data Vital Signs Vital Signs: Vital Signs - 24 hr 06/26/24 14:00 06/26/24 14:00 06/26/24 16:00 Temperature Pulse Rate 102 H 101 H 103 H Respiratory Rate 15 13 Blood Pressure 140/83 110/70 Pulse Oximetry 100 100 Oxygen Delivery 06/26/24 20:10 06/26/24 20:00 06/27/24 04:50 Temperature 36.5 C 37.2 C Pulse Rate 97 93 Respiratory Rate 20 20 Blood Pressure 162/88 H 150/93 H Pulse Oximetry 100 100 Oxygen Delivery Room Air 06/27/24 07:34 06/27/24 11:28 06/27/24 12:00 Temperature 36.6 C Pulse Rate 96 99 Respiratory Rate 13 15 Blood Pressure 132/84 95/82 L Pulse Oximetry 100 100 Oxygen Delivery Room Air 06/27/24 12:00 Temperature Pulse Rate 98 Respiratory Rate Blood Pressure Pulse Oximetry Oxygen Delivery Intake/Output Intake/Output: Intake & Output 06/24/24 06/25/24 06/26/24 06/27/24 23:59 23:59 23:59 23:59 Intake Total 4171.1 1286.1 Output Total 1300 1900 Balance 2871.1 -613.9 Meds/Results Medications: Active Medications Generic Name Dose Route Start Last Admin Trade Name Freq PRN Reason Stop Dose Admin Dextrose 12.5 gm 06/26/24 07:22 Dextrose 50% 25 Gm/50 Ml Syringe IV PUSH PRN PRN Hypoglycemia Protocol Enoxaparin Sodium 40 mg 06/27/24 09:00 06/27/24 07:34 Enoxaparin 40 Mg/0.4 Ml Syringe SUB-Q 40 mg DAILY KARRIE Administration Folic Acid 1 mg 06/28/24 09:00 Folic Acid 1 Mg Tablet PO DAILY KARRIE Gabapentin 300 mg 06/27/24 21:00 Gabapentin 300 Mg Capsule PO QHS KARRIE Glucose 15 gm 06/26/24 07:22 Glucose Oral Gel 15 Gm Of Glucse In 37.5 Gm Tube PO PRN PRN Hypoglycemia Protocol Dextrose 1,000 mls @ 100 mls/hr 06/26/24 07:22 Dextrose 5% 1,000 Ml IVPB PRN PRN Hypoglycemia Protocol Levofloxacin/Dextrose 750 mg in 150 mls @ 100 mls/hr 06/27/24 09:00 06/27/24 09:50 Levaquin 750 Mg/D5w 150 Ml IVPB Infused Q24H KARRIE Infusion Potassium Chloride/Dextrose/Sod Cl 1,000 mls @ 150 mls/hr 06/27/24 09:45 06/27/24 11:46 Kcl 20 Meq/D5/0.45% Sod Chl IV CONT 150 mls/hr .Q6H40M KARRIE Administration Dextrose/Sodium Chloride 1,000 mls @ 150 mls/hr 06/27/24 09:45 Dextrose 5% Sodium Chloride 0.45% IV CONT .Q6H40M KARRIE Insulin Human Regular 100 100 mls @ 6.8 mls/hr 06/27/24 10:00 06/27/24 12:51 units/ Sodium Chloride IV CONT 1 units/hr .[id number] KARRIE 1 mls/hr Titration Protocol 6.8 UNITS/HR Insulin Glargine 10 units 06/26/24 13:45 06/26/24 13:53 Insulin Glargine (*Bkc) 100 Units/Ml SUB-Q 10 units HS KARRIE Administration Metoclopramide HCl 10 mg 06/27/24 18:00 Metoclopramide Hcl Inj 10 Mg/2 Ml Vial IV PUSH Q6HR [facility] Miscellaneous Information 1 each 06/27/24 00:01 Home Po Pantoprazole Is A Duplicate With Current Order Of Iv Pantoprazole. Which One Do Yo XX 07/27/24 00:00 CLARIFY KARRIE Ondansetron HCl 4 mg 06/26/24 08:20 06/27/24 13:11 Ondansetron Inj 4 Mg/2 Ml Vial IV PUSH 4 mg Q4H PRN Administration Nausea And Vomiting Ondansetron HCl 4 mg 06/27/24 11:31 Ondansetron Hcl Odt 4 Mg Tablet PO .every 8 hours as nee [facility] Pantoprazole Sodium 40 mg 06/26/24 09:00 06/27/24 07:34 Pantoprazole Sodium Iv 40 Mg Vial IV PUSH 40 mg Q12HR KARRIE Administration Promethazine HCl 12.5 mg 06/26/24 16:30 06/27/24 07:32 Promethazine Hcl 25 Mg/Ml Ampul IV PUSH 12.5 mg Q6HR PRN Administration Nausea And Vomiting Thiamine HCl 100 mg 06/28/24 09:00 Thiamine Hcl 100 Mg Tablet PO DAILY [facility] Vitamin D 2,000 units 06/28/24 09:00 Cholecalciferol 1,000 Units Tablet PO DAILY [facility] Radiology Results: ITS Impressions Chest X-Ray 06/26/24 17:50 IMPRESSION: Highly suggestive focal pneumonia in the left lower lobe. Follow-up to resolution is advised to exclude a mass. Labs Labs: Laboratory Results - last 24 hr 06/26/24 06/26/24 06/26/24 13:01 13:51 14:52 WBC RBC Hgb Hct MCV MCH MCHC RDW Plt Count MPV Sodium 135 L Potassium 4.5 Chloride 104 Carbon Dioxide 19 L Anion Gap 12 BUN 9 Creatinine 0.70 Estim Creat Clear Calc 94 Estimated GFR > 60 Glucose 239 H POC Capillary Glucose 255 H Calcium 8.8 Magnesium Total Bilirubin AST ALT Alkaline Phosphatase Total Protein Albumin Nasal MRSA (PCR) Not detected 06/26/24 06/26/24 06/26/24 14:54 16:44 20:12 WBC RBC Hgb Hct MCV MCH MCHC RDW Plt Count MPV Sodium Potassium Chloride Carbon Dioxide Anion Gap BUN Creatinine Estim Creat Clear Calc Estimated GFR Glucose POC Capillary Glucose 265 H 331 H 308 H Calcium Magnesium Total Bilirubin AST ALT Alkaline Phosphatase Total Protein Albumin Nasal MRSA (PCR) 11/02/24 11/02/24 11/02/24 03:07 06:18 07:59 WBC 18.6 H 18.3 H RBC 4.37 4.08 L Hgb 12.1 11.1 L Hct 38.0 34.5 L MCV 87.0 84.6 MCH 27.7 27.2 MCHC 31.8 L 32.2 RDW 14.0 14.0 Plt Count 305 291 MPV 11.1 H 10.4 Sodium 138 137 Potassium 4.4 4.4 Chloride 100 98 Carbon Dioxide 14 L 18 L Anion Gap 24 H 21 H BUN 9 10 Creatinine 0.60 L 0.60 L Estim Creat Clear Calc 94 94 Estimated GFR > 60 > 60 Glucose 362 H 372 H POC Capillary Glucose 312 H Calcium 9.6 9.5 Magnesium 1.8 Total Bilirubin 1.4 H 1.3 AST 25 25 ALT 15 15 Alkaline Phosphatase 76 76 Total Protein 9.0 H 8.0 Albumin 5.0 4.8 Nasal MRSA (PCR) 06/27/24 06/27/24 06/27/24 08:11 11:36 12:16 WBC RBC Hgb Hct MCV MCH MCHC RDW Plt Count MPV Sodium 139 Potassium 4.0 Chloride 101 Carbon Dioxide 19 L Anion Gap 19 H BUN 11 Creatinine 0.70 Estim Creat Clear Calc 82 Estimated GFR > 60 Glucose 202 H POC Capillary Glucose 387 H 193 H Calcium 9.4 Magnesium Total Bilirubin AST ALT Alkaline Phosphatase Total Protein Albumin Nasal MRSA (PCR) 06/27/24 12:50 WBC RBC Hgb Hct MCV MCH MCHC RDW Plt Count MPV Sodium Potassium Chloride Carbon Dioxide Anion Gap BUN Creatinine Estim Creat Clear Calc Estimated GFR Glucose POC Capillary Glucose 180 H Calcium Magnesium Total Bilirubin AST ALT Alkaline Phosphatase Total Protein Albumin Nasal MRSA (PCR)
[2024-06-27 14:09] LABS: Glucose Point of Care 167 mg/dl (65-105)
[2024-06-27 15:10] LABS: Glucose Point of Care 197 mg/dl (65-105)
[2024-06-27 15:26] LABS: Procalcitonin 0.1 ng/mL
[2024-06-27 16:26] LABS: Glucose Point of Care 227 mg/dl (65-105)
[2024-06-27] MEDS: METOCLOPRAMIDE HCL INJ 10 MG/2 ML VIAL IV PUSH ×2 (17:06→23:38)
[2024-06-27 17:11] LABS: Glucose Point of Care 230 mg/dl (65-105)
--- NOTE | 2024-06-27 17:31 | PC.NURSE ---
At 1500, patient called out to nurses station insisting NG tube be removed. RN went and assessed the patient. Multiple attempts made at comfort/positioning and offering of medications including lidocaine spray per nocturnal [employer], patient remains admit that NG tube needs removed. patient educated of risk of discontinuing therapies ordered by provider. Patient states she does not want the NG tube at all, and does not want another one placed if needed. Patient now tearful. Provider made aware and NG tube removed.
[2024-06-27 17:35] LABS: Anion Gap 15 mmol/L (4-12); Blood Urea Nitrogen 11 mg/dL (7-17); Calcium 9.2 mg/dL (8.4-10.2); Carbon Dioxide 22 mmol/L (22-30); Chloride 99 mmol/L (98-107); Estimated CRCL calculation 82 ml/min; Estimated Glomerular Filt Rate > 60; Glucose 228 mg/dL (65-110); Potassium 4.3 mmol/L (3.4-5.0); Sodium 136 mmol/L (137-145)
[2024-06-27 18:51] LABS: Glucose Point of Care 220 mg/dl (65-105)
[2024-06-27 18:51] LABS: Glucose Point of Care 287 mg/dl (65-105)
[2024-06-27 19:36] LABS: Glucose Point of Care 233 mg/dl (65-105)
[2024-06-27 20:25] LABS: Glucose Point of Care 235 mg/dl (65-105)
[2024-06-27 21:18] LABS: Anion Gap 13 mmol/L (4-12); Blood Urea Nitrogen 9 mg/dL (7-17); Carbon Dioxide 24 mmol/L (22-30); Chloride 100 mmol/L (98-107); Estimated CRCL calculation 94 ml/min; Estimated Glomerular Filt Rate > 60; Glucose 209 mg/dL (65-110); Potassium 3.6 mmol/L (3.4-5.0); Sodium 137 mmol/L (137-145)
[2024-06-27 21:47] LABS: Glucose Point of Care 209 mg/dl (65-105)
--- NOTE | 2024-06-27 22:13 | PC.NURSE ---
Spoke with Dr Paiz to clarify if drip should be discontinued if gap closes overnight. Reviewed current gap. Do to previous reversal back to DKA plan is to keep patient on drip until assessed by Dr Paiz in AM.
[2024-06-27 23:03] LABS: Glucose Point of Care 225 mg/dl (65-105)
[2024-06-28] VITALS (18 sets, daily range): BP systolic 115–154; BP diastolic 73–97; PULSE 86–108; RESP 14–23; TEMP 36.4–37.7; O2SAT 98–100
[2024-06-28 00:15] LABS: Glucose Point of Care 196 mg/dl (65-105)
[2024-06-28 00:52] LABS: Anion Gap 11 mmol/L (4-12); Blood Urea Nitrogen 8 mg/dL (7-17); Calcium 8.9 mg/dL (8.4-10.2); Carbon Dioxide 24 mmol/L (22-30); Chloride 99 mmol/L (98-107); Estimated CRCL calculation 94 ml/min; Estimated Glomerular Filt Rate > 60; Glucose 183 mg/dL (65-110); Potassium 3.7 mmol/L (3.4-5.0); Sodium 134 mmol/L (137-145)
[2024-06-28] MEDS: PROMETHAZINE HCL 25 MG/ML AMPUL 12.5 MG IV PUSH ×3 (00:56→14:40)
[2024-06-28 01:17] LABS: Glucose Point of Care 210 mg/dl (65-105)
--- NOTE | 2024-06-28 01:18 | PC.NURSE ---
Daylight Savings Time For Daylight Savings Time Ending in the Fall - Clocks are moved back. For Daylight Savings Time Beginning in the Spring - Clocks are moved ahead. For [facility], the time of change occurs at 0200 hrs. Time is taken from the windows server administrator. This entry on the patient's chart recognizes the change in time reflected during documentation. Example: 2 entries for vital signs may be charted for 0200 hrs.
[2024-06-28 02:00] LABS: Glucose Point of Care 202 mg/dl (65-105)
[2024-06-28 02:03] LABS: Glucose Point of Care 201 mg/dl (65-105)
[2024-06-28] MEDS: ONDANSETRON INJ 4 MG/2 ML VIAL IV PUSH ×5 (03:11→21:04)
[2024-06-28] MEDS: KCL 20 MEQ/D5/0.45% SOD CHL 1,000 ML 150 ML IV CONT (03:12)
[2024-06-28 03:16] LABS: Glucose Point of Care 233 mg/dl (65-105)
[2024-06-28 03:48] LABS: Hematocrit 35.4 % (37.0-47.0); Hemoglobin 11.7 g/dL (12.0-15.0); Mean Corpuscular HGB Conc 33.1 g/dl (32-36); Mean Corpuscular Hemoglobin 27.3 pg (26-34); Mean Corpuscular Volume 82.5 fl (80-100); Platelet Count Result 272 k/mm3 (150-375); Red Blood Count 4.29 M/mm3 (4.2-5.4); Red Cell Distribution Width 13.5 % (11.5-14.5); White Blood Count 10.2 K/mm3 (4.5-10.0)
[2024-06-28 03:59] LABS: Alanine Aminotransferase 12 U/L (6-35); Albumin Level 4.1 g/dL (3.5-5.1); Alkaline Phosphatase 66 U/L (38-126); Anion Gap 10 mmol/L (4-12); Aspartate Amino Transferase 19 U/L (14-36); Bilirubin,Total 1.1 mg/dL (0.2-1.3); Blood Urea Nitrogen 7 mg/dL (7-17); Calcium 8.8 mg/dL (8.4-10.2); Carbon Dioxide 24 mmol/L (22-30); Chloride 99 mmol/L (98-107); Estimated CRCL calculation 94 ml/min; Estimated Glomerular Filt Rate > 60; Glucose 234 mg/dL (65-110); Magnesium 1.5 mg/dL (1.6-2.3); Potassium 3.8 mmol/L (3.4-5.0); Sodium 133 mmol/L (137-145)
[2024-06-28 05:26] LABS: Glucose Point of Care 246 mg/dl (65-105)
[2024-06-28 05:44] LABS: Glucose Point of Care 213 mg/dl (65-105)
[2024-06-28 05:44] LABS: Glucose Point of Care 230 mg/dl (65-105)
[2024-06-28] MEDS: METOCLOPRAMIDE HCL INJ 10 MG/2 ML VIAL IV PUSH ×3 (06:15→17:28)
[2024-06-28 06:44] LABS: Glucose Point of Care 264 mg/dl (65-105)
[2024-06-28 07:49] LABS: Glucose Point of Care 249 mg/dl (65-105)
[2024-06-28] MEDS: PANTOPRAZOLE SODIUM IV 40 MG VIAL IV PUSH ×2 (08:16→21:02)
[2024-06-28] MEDS: ENOXAPARIN 40 MG/0.4 ML SYRINGE SUB-Q (08:16)
[2024-06-28] MEDS: INSULIN GLARGINE (*BKC) 100 UNITS/ML 20 UNITS SUB-Q (08:17)
[2024-06-28] MEDS: levoFLOXacin 750 MG/D5W 150 ML 750 MG/150 ML BAG 100 MG IVPB (08:17)
--- NOTE | 2024-06-28 08:24 | WPDINTPN ---
Progress Note: A&P Assessment and Plan (1) DKA (diabetic ketoacidoses): Code(s): E11.10 - Type 2 diabetes mellitus with ketoacidosis without coma Status: Acute Assessment and Plan: Anion gap has closed. Will discontinue IV fluids and insulin infusion Transition to subcutaneous insulin Clear liquid diet and advance as tolerated Monitor and replace electrolytes (2) Esophagitis: Code(s): K20.90 - Esophagitis, unspecified without bleeding Status: Acute Assessment and Plan: PPI (3) Gastroparesis: Code(s): K31.84 - Gastroparesis Status: Acute Assessment and Plan: Reglan (4) Nausea and vomiting: Code(s): R11.2 - Nausea with vomiting, unspecified Status: Acute Assessment and Plan: Patient has persistent nausea vomiting despite Zofran Compazine and Reglan NG tube was inserted yesterday to IS but patient removed it and is refusing insertion. CT abdomen pelvis does not explain cause of persistent nausea vomiting Could be secondary to gastroparesis Will consult Gastroenterology if does not improve (5) Pneumonia: Code(s): J18.9 - Pneumonia, unspecified organism Status: Acute Assessment and Plan: Patient has a chest x-ray done 06/26 which was suggestive of focal pneumonia the left lower lobe. She was started Levaquin. Blood cultures are done and pending CT scan was done and does not show any infiltrates Procalcitonin level was also low UA was not suggestive of UTI on presentation Will discuss with hospitalist regarding discontinuing antibiotics. Plan DVT prophylaxis -SCD Stress ulcer prophylaxis -PPI Nutrition -clear liquid diet. Advance as tolerated. Code Status - Full Code Transfer out of ICU. Subjective Date/time seen: 06/28/24 Patient states that nausea is better but still present. She took out her NG tube and refused reinsertion. She denies any other complaints. Continues to be on insulin drip and IV fluids. CT scan of the pelvis done yesterday. Good urine output. All other systems were reviewed and were negative. Review of Systems Review of Systems: All systems reviewed & are unremarkable except as noted in HPI and below (HPI) Exam Narrative: General: Pt is alert awake and in NAD Lungs/Chest: Trachea central Clear BS B/L, No crackles or wheezing. Cardiac: RRR. Normal S1 S2. No murmurs Circulation: Pedal pulses are intact and symmetrical. Abdomen: Normal bowel sounds.. Soft. NT. ND. Extremities: No clubbing, cyanosis or edema. Warm : Christian in place Neurologic: Follows commands. Moves all 4 extremities PERRL Skin: No Rash Objective Data Vital Signs Vital Signs: Vital Signs - 24 hr 06/27/24 11:28 06/27/24 12:00 06/27/24 13:49 Temperature 36.6 C Pulse Rate 96 99 96 Respiratory Rate 13 15 13 Blood Pressure 132/84 95/82 L 145/78 H Pulse Oximetry 100 100 99 Oxygen Delivery 06/27/24 12:00 06/27/24 14:00 06/27/24 16:00 Temperature 36.4 C L Pulse Rate 98 100 102 H Respiratory Rate 23 H Blood Pressure 113/89 Pulse Oximetry 99 Oxygen Delivery 06/27/24 18:00 06/27/24 18:00 06/27/24 16:00 Temperature Pulse Rate 106 H 101 H 105 H Respiratory Rate 12 Blood Pressure 141/87 H Pulse Oximetry 100 Oxygen Delivery 06/27/24 20:12 06/27/24 22:04 06/27/24 20:00 Temperature 37.0 C Pulse Rate 110 H 90 96 Respiratory Rate 18 Blood Pressure 124/80 123/78 Pulse Oximetry 100 98 Oxygen Delivery 06/27/24 20:45 06/27/24 22:00 06/27/24 23:56 Temperature Pulse Rate 91 91 92 Respiratory Rate 18 20 Blood Pressure Pulse Oximetry 98 99 Oxygen Delivery Room Air Room Air 06/28/24 00:25 06/28/24 00:00 06/28/24 01:19 CDT Temperature 37.4 C Pulse Rate 95 94 91 Respiratory Rate 18 18 Blood Pressure 134/95 H 115/76 Pulse Oximetry 98 98 Oxygen Delivery 06/28/24 02:00 06/28/24 02:00 06/28/24 04:00 Temperature Pulse Rate 87 87 89 Respiratory Rate 18 Blood Pressure 131/73 Pulse Oximetry 98 Oxygen Delivery 06/28/24 04:00 06/28/24 04:57 06/28/24 06:00 Temperature 37.1 C Pulse Rate 89 90 88 Respiratory Rate 16 23 H Blood Pressure 136/91 H Pulse Oximetry 98 99 Oxygen Delivery Room Air 06/28/24 06:00 06/28/24 06:43 06/28/24 08:00 Temperature 37.6 C H Pulse Rate 88 86 Respiratory Rate 18 16 Blood Pressure 136/91 H 135/96 H Pulse Oximetry 99 98 Oxygen Delivery Intake/Output Intake/Output: Intake & Output 06/25/24 06/26/24 06/27/24 06/28/24 23:59 23:59 23:59 22:59 Intake Total 4171.1 2598.1 1112.0 Output Total 1300 2900 1050 Balance 2871.1 -301.9 62.0 Meds/Results Medications: Active Medications Generic Name Dose Route Start Last Admin Trade Name Freq PRN Reason Stop Dose Admin Dextrose 12.5 gm 06/26/24 07:22 Dextrose 50% 25 Gm/50 Ml Syringe IV PUSH PRN PRN Hypoglycemia Protocol Enoxaparin Sodium 40 mg 06/27/24 09:00 06/28/24 08:16 Enoxaparin 40 Mg/0.4 Ml Syringe SUB-Q 40 mg DAILY KARRIE Administration Folic Acid 1 mg 06/28/24 09:00 Folic Acid 1 Mg Tablet PO DAILY [facility] Gabapentin 300 mg 06/27/24 21:00 06/27/24 20:54 Gabapentin 300 Mg Capsule PO Not Given QHS KARRIE Glucose 15 gm 06/26/24 07:22 Glucose Oral Gel 15 Gm Of Glucse In 37.5 Gm Tube PO PRN PRN Hypoglycemia Protocol Dextrose 1,000 mls @ 100 mls/hr 06/26/24 07:22 Dextrose 5% 1,000 Ml IVPB PRN PRN Hypoglycemia Protocol Levofloxacin/Dextrose 750 mg in 150 mls @ 100 mls/hr 06/27/24 09:00 06/28/24 08:17 Levaquin 750 Mg/D5w 150 Ml IVPB 100 mls/hr Q24H KARRIE Administration Potassium Chloride/Dextrose/Sod Cl 1,000 mls @ 150 mls/hr 06/27/24 09:45 06/28/24 06:00 Kcl 20 Meq/D5/0.45% Sod Chl IV CONT 06/28/24 08:30 150 mls/hr .Q6H40M KARRIE Infusion Insulin Human Regular 100 100 mls @ 2 mls/hr 06/27/24 10:00 06/28/24 07:43 units/ Sodium Chloride IV CONT 06/28/24 08:30 2 units/hr .Q24H KARRIE 2 mls/hr Titration Protocol 2 UNITS/HR Insulin Aspart 4 - 8 units 06/28/24 09:00 Insulin Aspart (*Bkc) 100 Units/Ml SUB-Q Q4HR [facility] Protocol Insulin Glargine 10 units 06/26/24 13:45 06/26/24 13:53 Insulin Glargine (*Bkc) 100 Units/Ml SUB-Q 10 units HS KARRIE Administration Insulin Glargine 20 units 06/28/24 09:00 06/28/24 08:17 Insulin Glargine (*Bkc) 100 Units/Ml SUB-Q 20 units QAM [facility] Administration Metoclopramide HCl 10 mg 06/27/24 18:00 06/28/24 06:15 Metoclopramide Hcl Inj 10 Mg/2 Ml Vial IV PUSH 10 mg Q6HR KARRIE Administration Miscellaneous Information 1 each 06/27/24 00:01 06/28/24 00:13 Home Po Pantoprazole Is A Duplicate With Current Order Of Iv Pantoprazole. Which One Do Yo XX 07/27/24 00:00 Not Given CLARIFY [facility] Ondansetron HCl 4 mg 06/26/24 08:20 06/28/24 07:45 Ondansetron Inj 4 Mg/2 Ml Vial IV PUSH 4 mg Q4H PRN Administration Nausea And Vomiting Ondansetron HCl 4 mg 06/27/24 11:31 Ondansetron Hcl Odt 4 Mg Tablet PO .every 8 hours as nee [facility] Pantoprazole Sodium 40 mg 06/26/24 09:00 06/28/24 08:16 Pantoprazole Sodium Iv 40 Mg Vial IV PUSH 40 mg Q12HR [facility] Administration Promethazine HCl 12.5 mg 06/26/24 16:30 06/28/24 00:56 Promethazine Hcl 25 Mg/Ml Ampul IV PUSH 12.5 mg Q6HR PRN Administration Nausea And Vomiting Thiamine HCl 100 mg 06/28/24 09:00 Thiamine Hcl 100 Mg Tablet PO DAILY [facility] Vitamin D 2,000 units 06/28/24 09:00 Cholecalciferol 1,000 Units Tablet PO DAILY [facility] Radiology Results: ITS Impressions Chest X-Ray 06/26/24 17:50 IMPRESSION: Highly suggestive focal pneumonia in the left lower lobe. Follow-up to resolution is advised to exclude a mass. Abdomen X-Ray 06/27/24 14:03 IMPRESSION: NG tube in stomach Chest/Abdomen/Pelvis CT 06/27/24 19:31 IMPRESSION: Circumferential nonspecific soft tissue thickening of the distal esophagus; this might be due to esophagitis Approximately 3 x 4 cm left ovarian cystic lesion; consider pelvic ultrasound Normal appendix Labs Labs: Laboratory Results - last 24 hr 06/27/24 06/27/24 06/27/24 11:36 12:16 12:50 WBC RBC Hgb Hct MCV MCH MCHC RDW Plt Count MPV Sodium 139 Potassium 4.0 Chloride 101 Carbon Dioxide 19 L Anion Gap 19 H BUN 11 Creatinine 0.70 Estim Creat Clear Calc 82 Estimated GFR > 60 Glucose 202 H POC Capillary Glucose 193 H 180 H Calcium 9.4 Magnesium Total Bilirubin AST ALT Alkaline Phosphatase Total Protein Albumin Procalcitonin 0.1 06/27/24 06/27/24 06/27/24 13:47 14:55 15:59 WBC RBC Hgb Hct MCV MCH MCHC RDW Plt Count MPV Sodium Potassium Chloride Carbon Dioxide Anion Gap BUN Creatinine Estim Creat Clear Calc Estimated GFR Glucose POC Capillary Glucose 167 H 197 H 227 H Calcium Magnesium Total Bilirubin AST ALT Alkaline Phosphatase Total Protein Albumin Procalcitonin 06/27/24 06/27/24 06/27/24 16:59 17:04 17:50 WBC RBC Hgb Hct MCV MCH MCHC RDW Plt Count MPV Sodium 136 L Potassium 4.3 Chloride 99 Carbon Dioxide 22 Anion Gap 15 H BUN 11 Creatinine 0.70 Estim Creat Clear Calc 82 Estimated GFR > 60 Glucose 228 H POC Capillary Glucose 230 H 220 H Calcium 9.2 Magnesium Total Bilirubin AST ALT Alkaline Phosphatase Total Protein Albumin Procalcitonin 06/27/24 06/27/24 06/27/24 18:46 19:32 20:23 WBC RBC Hgb Hct MCV MCH MCHC RDW Plt Count MPV Sodium Potassium Chloride Carbon Dioxide Anion Gap BUN Creatinine Estim Creat Clear Calc Estimated GFR Glucose POC Capillary Glucose 287 H 233 H 235 H Calcium Magnesium Total Bilirubin AST ALT Alkaline Phosphatase Total Protein Albumin Procalcitonin 06/27/24 06/27/24 06/27/24 20:52 21:43 22:59 WBC RBC Hgb Hct MCV MCH MCHC RDW Plt Count MPV Sodium 137 Potassium 3.6 Chloride 100 Carbon Dioxide 24 Anion Gap 13 H BUN 9 Creatinine 0.60 L Estim Creat Clear Calc 94 Estimated GFR > 60 Glucose 209 H POC Capillary Glucose 209 H 225 H Calcium 9.0 Magnesium Total Bilirubin AST ALT Alkaline Phosphatase Total Protein Albumin Procalcitonin 06/28/24 06/28/24 06/28/24 00:12 00:38 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 RBC Hgb Hct MCV MCH MCHC RDW Plt Count MPV Sodium 134 L Potassium 3.7 Chloride 99 Carbon Dioxide 24 Anion Gap 11 BUN 8 Creatinine 0.60 L Estim Creat Clear Calc 94 Estimated GFR > 60 Glucose 183 H POC Capillary Glucose 196 H 202 H Calcium 8.9 Magnesium Total Bilirubin AST ALT Alkaline Phosphatase Total Protein Albumin Procalcitonin 06/28/24 06/28/24 06/28/24 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 02:01 03:09 WBC RBC Hgb Hct MCV MCH MCHC RDW Plt Count MPV Sodium Potassium Chloride Carbon Dioxide Anion Gap BUN Creatinine Estim Creat Clear Calc Estimated GFR Glucose POC Capillary Glucose 210 H 201 H 233 H Calcium Magnesium Total Bilirubin AST ALT Alkaline Phosphatase Total Protein Albumin Procalcitonin 06/28/24 06/28/24 06/28/24 03:34 04:24 05:21 WBC 10.2 H RBC 4.29 Hgb 11.7 L Hct 35.4 L MCV 82.5 MCH 27.3 MCHC 33.1 RDW 13.5 Plt Count 272 MPV 10.0 Sodium 133 L Potassium 3.8 Chloride 99 Carbon Dioxide 24 Anion Gap 10 BUN 7 Creatinine 0.60 L Estim Creat Clear Calc 94 Estimated GFR > 60 Glucose 234 H POC Capillary Glucose 230 H 246 H Calcium 8.8 Magnesium 1.5 L Total Bilirubin 1.1 AST 19 ALT 12 Alkaline Phosphatase 66 Total Protein 8.0 Albumin 4.1 Procalcitonin 06/28/24 06/28/24 06/28/24 05:42 06:37 07:42 WBC RBC Hgb Hct MCV MCH MCHC RDW Plt Count MPV Sodium Potassium Chloride Carbon Dioxide Anion Gap BUN Creatinine Estim Creat Clear Calc Estimated GFR Glucose POC Capillary Glucose 213 H 264 H 249 H Calcium Magnesium Total Bilirubin AST ALT Alkaline Phosphatase Total Protein Albumin Procalcitonin
[2024-06-28 08:29] LABS: Glucose Point of Care 212 mg/dl (65-105)
[2024-06-28 08:49] LABS: Alanine Aminotransferase 13 U/L (6-35); Albumin Level 4.3 g/dL (3.5-5.1); Alkaline Phosphatase 74 U/L (38-126); Anion Gap 11 mmol/L (4-12); Aspartate Amino Transferase 20 U/L (14-36); Bilirubin,Total 1.2 mg/dL (0.2-1.3); Blood Urea Nitrogen 5 mg/dL (7-17); Calcium 8.9 mg/dL (8.4-10.2); Carbon Dioxide 23 mmol/L (22-30); Chloride 97 mmol/L (98-107); Estimated CRCL calculation 107 ml/min; Estimated Glomerular Filt Rate > 60; Glucose 234 mg/dL (65-110); Potassium 3.5 mmol/L (3.4-5.0); Sodium 131 mmol/L (137-145)
[2024-06-28 09:28] LABS: Glucose Point of Care 219 mg/dl (65-105)
[2024-06-28 10:47] LABS: Glucose Point of Care 244 mg/dl (65-105)
[2024-06-28 11:56] LABS: Glucose Point of Care 260 mg/dl (65-105)
[2024-06-28] MEDS: INSULIN ASPART (*BKC) 100 UNITS/ML SUB-Q ×2 (12:12→21:03)
--- NOTE | 2024-06-28 13:00 | ADMGEN ---
This patient, Tara Hinkle, was admitted to Medical Room 261-01. Patient/family oriented to hospital policies and general routines including ID bracelet, bed and alarms, visiting hours, pain management, procedures, bathroom and other care routines, personal items, smoking policy, room service/diet, and visiting hours. Information on how to activate the Rapid Response Team has been discussed. Patient/Family are encouraged to report perceived risks to care and to ask questions if they do not understand what they are told or what they should do.
--- NOTE | 2024-06-28 13:54 | PC.NURSE ---
Report given to LAZ Edwards at 1227. All questions answered and plan of care reviewed. Patient to go to room 261.
--- NOTE | 2024-06-28 13:55 | PC.NURSE ---
Patient transferred to room 261 at 1300 by wheelchair. All belongings brought with patient to receiving unit.
[2024-06-28 16:03] LABS: Glucose Point of Care 122 mg/dl (65-105)
[2024-06-28] MEDS: GABAPENTIN 300 MG CAPSULE PO (21:03)
[2024-06-28 21:16] LABS: Glucose Point of Care 259 mg/dl (65-105)
[2024-06-28] MEDS: MELATONIN 5 MG TABLET PO (22:12)
[2024-06-29] VITALS (10 sets, daily range): BP systolic 110–159; BP diastolic 76–94; PULSE 95–128; RESP 16–20; TEMP 36.2–36.9; O2SAT 97–100
[2024-06-29 00:51] LABS: Glucose Point of Care 121 mg/dl (65-105)
[2024-06-29] MEDS: ONDANSETRON INJ 4 MG/2 ML VIAL IV PUSH ×4 (05:06→19:28)
[2024-06-29] MEDS: METOCLOPRAMIDE HCL INJ 10 MG/2 ML VIAL IV PUSH ×5 (05:06→23:11)
[2024-06-29] MEDS: INSULIN ASPART (*BKC) 100 UNITS/ML SUB-Q ×3 (05:09→20:32)
[2024-06-29 06:13] LABS: Glucose Point of Care 221 mg/dl (65-105)
[2024-06-29 06:16] LABS: Hematocrit 42.5 % (37.0-47.0); Hemoglobin 14.2 g/dL (12.0-15.0); Mean Corpuscular HGB Conc 33.4 g/dl (32-36); Mean Corpuscular Hemoglobin 27.1 pg (26-34); Mean Corpuscular Volume 81.1 fl (80-100); Mean Platelet Volume 9.8 fl (7.4-10.4); Platelet Count Result 312 k/mm3 (150-375); Red Blood Count 5.24 M/mm3 (4.2-5.4); Red Cell Distribution Width 12.8 % (11.5-14.5); White Blood Count 8.9 K/mm3 (4.5-10.0)
[2024-06-29 06:31] LABS: Alanine Aminotransferase 13 U/L (6-35); Albumin Level 4.2 g/dL (3.5-5.1); Alkaline Phosphatase 68 U/L (38-126); Anion Gap 14 mmol/L (4-12); Aspartate Amino Transferase 21 U/L (14-36); Bilirubin,Total 1.4 mg/dL (0.2-1.3); Blood Urea Nitrogen 13 mg/dL (7-17); Calcium 8.9 mg/dL (8.4-10.2); Carbon Dioxide 23 mmol/L (22-30); Chloride 95 mmol/L (98-107); Estimated CRCL calculation 67 ml/min; Estimated Glomerular Filt Rate > 60; Glucose 226 mg/dL (65-110); Magnesium 1.5 mg/dL (1.6-2.3); Sodium 132 mmol/L (137-145)
[2024-06-29 08:04] LABS: Glucose Point of Care 147 mg/dl (65-105)
[2024-06-29] MEDS: SODIUM CHLORIDE 0.9% IV 1,000 ML 75 ML IV CONT (08:22)
[2024-06-29] MEDS: PANTOPRAZOLE SODIUM IV 40 MG VIAL IV PUSH ×2 (08:24→20:33)
[2024-06-29] MEDS: levoFLOXacin 750 MG/D5W 150 ML 750 MG/150 ML BAG 100 MG IVPB (08:34)
[2024-06-29] MEDS: ENOXAPARIN 40 MG/0.4 ML SYRINGE SUB-Q (08:37)
[2024-06-29] MEDS: INSULIN GLARGINE (*BKC) 100 UNITS/ML 10 UNITS SUB-Q (09:33)
--- NOTE | 2024-06-29 09:34 | P.CONGI_ITS ---
I, Robin Dc MD, have provided a substantive portion of the care of this patient and discussed the patient with my Nurse Practitioner. I have reviewed any new relevant radiographic and laboratory results including medications. I agree with her documentation as noted below.?I personally performed the medical decision making and much of the history and exam for this encounter. she is admitted with DKA treated in ICU and anion gap closed, also h/o gastroparesis and marijuana use, former alcohol use but sober but 2 months. 03/2024 admitted with DKA and erosive esophagitis, she is still nauseous. Now treated for esophagitis with ppi, antiemetics and advance diet as tolerated. Consider to repeat EGD as outpatient. Assessment and Plan Assessment and plan (1) Nausea and vomiting: Qualifiers: Vomiting type: bilious vomiting Qualified Code(s): R11.14 - Bilious vomiting Code(s): R11.2 - Nausea with vomiting, unspecified Status: Acute (2) Gastroparesis: Code(s): K31.84 - Gastroparesis Status: Acute (3) GERD with esophagitis: Qualifiers: Esophagitis bleeding: without hemorrhage Qualified Code(s): K21.00 - Gastro-esophageal reflux disease with esophagitis, without bleeding Code(s): K21.00 - Gastro-esophageal reflux disease with esophagitis, without bleeding Status: Acute (4) Appetite loss: Code(s): R63.0 - Anorexia Status: Acute (5) Hyponatremia: Code(s): E87.1 - Hypo-osmolality and hyponatremia Status: Acute (6) Hypokalemia: Code(s): E87.6 - Hypokalemia Status: Acute (7) Hypomagnesemia: Code(s): E83.42 - Hypomagnesemia Status: Acute (8) Gastritis: Qualifiers: Gastritis type: superficial Chronicity: chronic Gastritis bleeding: without bleeding Qualified Code(s): K29.30 - Chronic superficial gastritis without bleeding Code(s): K29.70 - Gastritis, unspecified, without bleeding Status: Acute (9) Abnormal digestive system diagnostic imaging: Code(s): R93.3 - Abnormal findings on diagnostic imaging of other parts of digestive tract Status: Acute Plan 1. Nausea / vomiting /GERD With esophagitis / gastritis / decreased appetite /gastroparesis /Abnormal imaging digestive: EGD 04/23/2024 showed reflux esophagitis, grade 3 colon in the mid and distal esophagus, normal stomach and duodenum. Biopsies showed acute esophagitis with ulceration, mild chronic reactive gastritis without intestinal metaplasia, no evidence of H. pylori. CT scan showed circumferential nonspecific soft tissue thickening of the distal esophagus which may be related to esophagitis. On admission blood sugar 307 and today 226. Unclear when patient was initially diagnosed with gastroparesis. She states that she has never had a gastric emptying study. Patient presented to the ER with similar complaints of nausea and vomiting. Patient states she has been having nausea and vomiting and decreased appetite since . She denies any hematemesis or coffee-ground emesis. She states that she has been taking her pantoprazole 40 mg on a daily basis but has not been taking Reglan regularly at home. Patient smokes 1 pack per day and uses marijuana daily. Since admission the patient has been on PPI, Reglan, and Zofran with persistent symptoms. DDX: Reflux esophagitis vs peptic ulcer disease vs gastroparesis vs cannabinoid induced hyperemesis. * Promethazine 25 mg suppository q.4 hours as needed * Continue Protonix 40 mg b.i.d. * Add Carafate suspension ac/hs * okay to continue Zofran as needed * Start capsaicin cream applied to abdomen Q 6 hrs as needed * Care with NSAID's * If symptoms do not improve with above regimen may consider repeat EGD while in-patient otherwise we will proceed with plan to repeat EGD in July, which would be a 4 month follow-up from her last EGD in March * Ok to continue clear liquid diet for now * continue supportive care and IV fluid replacement 2. Hypokalemia / hyponatremia/ hypomagnesemia: Labs today show sodium 132, potassium 3.0, magnesium 1.5. * Likely secondary to GI fluid loss * Primary care team to continue monitoring and correcting Thank you very much for allowing me to share in the care of this very nice patient. This report may have been done utilizing a voice recognition system. Attempts have been made to correct errors. However, there may be uncorrected grammatical, spelling, and recognition errors present. GI Consult Note Consult date/time: 06/29/24 09:34 Reason for consult: Vomiting and abnormal CT of esophagus HPI: This is a pleasant 39 year old female with a past medical surgical history of diabetes, x3, GERD with esophagitis, gastroparesis, and EtOH abuse she presented to the ER room 06/26/2024 with complaints of nausea and vomiting. GI consulted for vomiting and abnormal imaging. Patient states that since she has been experiencing frequent episodes of nausea and vomiting. She is still experiencing nausea and vomiting despite Zofran, ppi, and Reglan. She denies any hematemesis or coffee-ground emesis but states that sometimes her vomit is brown in color. She denies any reflux symptoms. Was on pantoprazole 40 mg daily prior to admission. She has had a decreased appetite since . She is typically having a formed non urgent bowel movement every 2 days. She denies any specific abdominal pain but states that she has a generalized soreness from a frequent nausea and vomiting. She denies abdominal bloating, odynophagia, dysphagia, regurgitation, early satiety, unexplained weight loss. Denies diarrhea, constipation, hematochezia, or melena. She denies any NSAID or aspirin use. Patient is a non drinker. Smokes 1 pack per day and uses marijuana daily. Family history negative for CRC or IBD. ENDOSCOPY HISTORY: EGD: 04/23/2024 Dr. Mondragon nausea and vomiting, epigastric pain, GERD, coffee-ground emesis, diabetes with gastroparesis, an ETOH abuse Findings: Reflux esophagitis, grade 3 colon was present in the mid esophagus in the distal esophagus extending 32-39 cm from the incisors. Multiple biopsies were taken. The Z-line was located at 39 cm from the incisors The stomach at the body, cardia and fundus was examined and was normal with no ulcers or masses. No obvious gastritis. No retained gastric content. Multiple biopsies were taken The bulb and 2nd portion the duodenum was normal with no ulcers or masses. 4 month repeat EGD recommended Bx results: A. Esophagus, biopsies: - Acute esophagitis with ulceration - No evidence of dysplasia or viral cytopathic effect - No fungal organisms identified on GMS stain with positive control. B. Stomach, biopsies: - Mild chronic reactive gastritis without intestinal metaplasia - No histologic evidence of Helicobacter organisms noted COLONOSCOPY: Patient has never had a colonscopy LABS AND STOOL STUDIES: 06/29/2024 sodium 132, potassium 3.0, BUN 13, creatinine 1.00, GFR > 60. WBC 9, HGB 14, HCT 43, MCV 81, platelets 312. Total bilirubin 1.4, AST 21, ALT 13, alkaline phosphatase 68, magnesium 1.5. On admission 06/26/2024 WBC 16, HGB 13, HCT 39, MCV 83, platelets 317 --> 06/29/2024 WBC 9, HGB 14, HCT 43, MCV 81, platelets 312. On admission 06/26/2024 sodium 143, potassium 3.8, BUN 12, creatinine 0.70, GFR > 60 --> 06/29/2024 sodium 132, potassium 3.0, BUN 13, creatinine 1.00, GFR > 60. On admission 06/26/2024 hemoglobin A1c 8.9, lactic acid 3.2, calcium 9.6, phosphorus 1.7, magnesium 1.4. Total bilirubin 1.7, AST 30, ALT 16, alkaline phosphatase 73, albumin 5.1, lipase 27. No recent stool studies available at todays visit IMAGING: CT chest/abd/pelvis w/contrast 06/27/2024 IMPRESSION: Circumferential nonspecific soft tissue thickening of the distal esophagus; this might be due to esophagitis Approximately 3 x 4 cm left ovarian cystic lesion; consider pelvic ultrasound Normal appendix CT abd/pelvis wo contrast 04/21/2024 IMPRESSION: 1. No acute intra-abdominal/pelvic process. 2. Small sliding-type hiatal hernia. 3. Couple small calcifications at the left ovary which could represent phleboliths or an ovarian dermoid. Review of Systems Constitutional: Constitutional: Reports as per HPI ENT: Reports as per HPI and Denies dysphagia Cardiovascular: Cardiovascular: Reports as per HPI, Denies chest pain, Denies leg edema and Denies dyspnea Respiratory: Respiratory: Denies dyspnea Gastrointestinal: Gastrointestinal: Reports as per HPI Musculoskeletal: Musculoskeletal: Reports as per HPI Integumentary/Breasts: Skin/Breast: Reports as per HPI Psychiatric: Psychiatric: Reports as per HPI Endocrine: Endocrine: Reports no additional endocrine complaints Hematologic/Lymphatic: Hematologic/Lymphatic: Reports no additional hematologic/lymphatic complaints PMFSH Past Medical History Medical History Elevated liver enzymes Exposure to sexually transmitted disease (STD) Type 1 diabetes mellitus Diagnosed at the age of 7. Hemoglobin A1c was 10.8% on 08/09/2020. Surgical History Surgical History History of 3 sections History of gynecological procedure 04/29/2020- mirena iud insertion - 10/23/2021 mirena iud removal -nm Family History Family History Grandparent Breast cancer Father Diabetes mellitus Other Hypertension Social History Social History Smoking packs per day: 1 Smoking cigarettes per day: 20.0 Years smoked: 25 Smoking pack-years: 25.00 Smoking status: Current every day smoker Tobacco type: cigarettes Second hand tobacco smoke exposure: No Alcohol intake: former Drinks per week: 20 Alcohol use details: occasional Substance use: current Substance use type: marijuana Last use: 08/12/23 Do You Feel Safe in your Home?: Yes Lack of Transportation: No Lack of Food: Never True Current Housing: I Have Housing Concerned About Future Housing: No Difficulty Paying Gas/Electric Bills: No Difficulty Paying for Meds: No Currently Unemployed: No Education: High School Diploma/GED Difficulty w/ Childcare or Family Care: No Living arrangements: with family Occupation/Education: unemployed Gender identity (if verbalized by the patient): Female Sexual Orientation (if Verbalized by the Patient): Straight or Heterosexual Spiritual care concerns: No Meds Home Medications and Allergies Home Medications Medication Instructions Recorded Confirmed Type thiamine HCl (vitamin B1) 100 mg 100 mg PO DAILY 01/08/24 06/26/24 History tablet folic acid 1 mg tablet 1 mg PO DAILY #90 tabs 01/09/24 06/26/24 Rx insulin pump cart,auto,BT,G6/7 #30 ea 01/09/24 06/26/24 Rx (Omnipod 5 G6-G7 Pods (Gen 5) subcutaneous cartridge) insulin pump cartridge,auto #1 ea 01/09/24 06/26/24 Rx dose,BT,G6/G7 with controller subcutaneous (Omnipod 5 G6-G7 Intro Kit(Gen 5) subcutaneous cartridge and controller) pantoprazole 40 mg tablet,delayed 40 mg PO QAM #90 tabs 01/09/24 06/26/24 Rx release cholecalciferol (vitamin D3) 50 50 mcg PO DAILY #90 caps 01/17/24 06/26/24 Rx mcg (2,000 unit) capsule gabapentin 300 mg capsule 300 mg PO QHS #90 caps 01/17/24 06/26/24 Rx lisinopril 2.5 mg tablet 2.5 mg PO DAILY #90 tabs 01/30/24 06/26/24 Rx ondansetron 4 mg disintegrating 4 mg PO .every 8 hours as nee #20 01/30/24 06/26/24 Rx tablet tabs insulin pump cartridge,auto #1 ea 05/14/24 06/26/24 Rx dose,BT,G6/G7 with controller subcutaneous blood-glucose sensor (Dexcom G6 #9 ea 06/02/24 06/26/24 Rx Sensor device) glucagon 1 mg/0.2 mL subcutaneous 1 mg (0.2 mL) subcut ONCE #0.4 mL 06/02/24 06/26/24 Rx auto-injector (Gvoke HypoPen 2-Pack) glucose 4 gram chewable tablet 16 g PO Q15M PRN hypoglycemia #360 06/02/24 06/26/24 Rx tabs insulin lispro 100 unit/mL See Rx Instructions subcut PRN 06/02/24 06/26/24 Rx subcutaneous solution insulin pump #60 mL insulin pump cart,auto,BT,G6/7 #45 ea 06/02/24 06/26/24 Rx Allergies Allergy/AdvReac Type Severity Reaction Status Date / Time No Known Allergies Allergy Verified 06/24/24 13:56 Vital Signs Vital Signs - 24 hr 06/28/24 10:00 06/28/24 10:49 06/28/24 10:00 Temperature 99.5 F Pulse Rate 102 H 108 H Respiratory Rate 17 Blood Pressure 154/97 H Pulse Oximetry 100 99 Oxygen Delivery Room Air Fraction of Inspired Oxygen 21 06/28/24 11:42 06/28/24 11:44 06/28/24 14:00 Temperature 98.8 F 98.2 F Pulse Rate 98 98 95 Respiratory Rate 14 16 Blood Pressure 141/83 H 149/87 H Pulse Oximetry 100 100 Oxygen Delivery Fraction of Inspired Oxygen 06/28/24 16:00 06/28/24 21:24 06/28/24 20:00 Temperature 97.6 F Pulse Rate 92 95 94 Respiratory Rate 14 Blood Pressure 131/89 Pulse Oximetry 100 Oxygen Delivery Fraction of Inspired Oxygen 06/28/24 20:00 06/29/24 00:00 06/29/24 04:00 Temperature Pulse Rate 121 H 104 H Respiratory Rate Blood Pressure Pulse Oximetry Oxygen Delivery Room Air Fraction of Inspired Oxygen 06/29/24 04:45 Temperature 98.5 F Pulse Rate 95 Respiratory Rate 16 Blood Pressure 113/76 Pulse Oximetry 100 Oxygen Delivery Fraction of Inspired Oxygen Exam Const: General: cooperative, healthy appearing, comfortable, no acute distress, well developed and uncomfortable Orientation/consciousness: oriented to person, oriented to place, oriented to time and patient oriented x3 HENMT: Head: normal to inspection, normocephalic and atraumatic Mouth: Yes Normal oral and palatal mucosa present and Yes moist mucous membranes Eyes: General: appearance normal, both eyes and all related structures Conjunctivae: conjunctivae normal Sclera: sclerae normal Pupils: Equal, round and reactive pupils present Neck: Neck: normal visual inspection Chest: Chest palpation & inspection: normal inspection of the chest Resp: Effort & Inspection: normal respiratory effort and able to speak in complete sentences Auscultation: clear to auscultation bilaterally Cardio: Jugular venous distension: no JVD Rate: regular rate Rhythm: re gular rhythm Heart sounds: S1 normal heart sound present and S2 normal heart sound present GI: Inspection: normal to inspection GI Palp: Yes Soft to palpation and Yes No hepatosplenomegaly present Auscultation: normal bowel sounds Rectal Exam: deferred Skin: General skin exam: normal color and no rashes or lesions noted Neuro: General: oriented to person, oriented to place, oriented to time and patient oriented x3 Cranial nerves: Yes Equal, round and reactive pupils present Speech: normal speech Extrem: General: normal to inspection and no clubbing, cyanosis or edema Psych: Appearance: grossly normal and well kempt Affect: normal affect Results Labs 06/29/24 06:01 06/29/24 06:01 Labs: Short CBC 06/29/24 Range/Units 06:01 WBC 8.9 (4.5-10.0) K/mm3 Hgb 14.2 (12.0-15.0) g/dL Hct 42.5 (37.0-47.0) % Plt Count 312 (150-375) k/mm3 BMP 06/29/24 06:01 Sodium 132 L Potassium 3.0 L Chloride 95 L Carbon Dioxide 23 BUN 13 D Creatinine 1.00 Glucose 226 H Calcium 8.9 Liver Function 06/29/24 Range/Units 06:01 Total Bilirubin 1.4 H (0.2-1.3) mg/dL AST 21 (14-36) U/L ALT 13 (6-35) U/L Alkaline Phosphatase 68 (38-126) U/L Albumin 4.2 (3.5-5.1) g/dL
[2024-06-29] MEDS: SUCRALFATE SUSP 100 MG/ML 10 ML UDC 1000 MG PO ×3 (10:22→20:33)
--- NOTE | 2024-06-29 10:38 | PM.IMPN ---
Progress Note: A&P Assessment and Plan (1) DKA (diabetic ketoacidoses): Code(s): E11.10 - Type 2 diabetes mellitus with ketoacidosis without coma Status: Acute Assessment and Plan: Anion gap has closed. Will discontinue IV fluids and insulin infusion now on suq insulin regimen lantus decreased to 10units as patient is not eating contineu SSI with accuhceks on clear liquid diet for now advance as tolerated (2) Esophagitis: Code(s): K20.90 - Esophagitis, unspecified without bleeding Status: Acute Assessment and Plan: PPI CT AP showed distal circumferential non specific soft tissue thickening of the distal esophagus Contine PPI, Carafate Possible EGD GI following, appreciate input (3) Gastroparesis: Code(s): K31.84 - Gastroparesis Status: Acute Assessment and Plan: Continue Reglan (4) Nausea and vomiting: Qualifiers: Vomiting type: bilious vomiting Qualified Code(s): R11.14 - Bilious vomiting Code(s): R11.2 - Nausea with vomiting, unspecified Status: Acute Assessment and Plan: Patient has persistent nausea vomiting despite Zofran Compazine and Reglan Patient removed NG tube that was placed in the ICU CT AP reviewed Continue Promethazine 25mg suppository q4 hours per GI Continue PRN Zofran clear liquid diet as tolerated Gi following (5) Pneumonia: Code(s): J18.9 - Pneumonia, unspecified organism Status: Acute Assessment and Plan: ruled out CT Chest adn AP Showed no pneumonia antibiotics discontinued Plan LEft ovarian cyst CT AP showed let ovarian cyst US pelvis ordered further plans per US DVT prophylaxis -Sq Lovenox Nutrition -clear liquid diet. Advance as tolerated. Code Status - Full Code Subjective Date/time seen: 06/29/24 10:38 Interval history: patient unable eat still having intractable vomiting CT AP showed distal circumferential non specific soft tissue thickening of the distal esophagus? esohagitis with 3x4 cm left ovarian cystis lesion Review of Systems Review of Systems: All other systems were reviewed and negative except as noted in the history above. All systems reviewed & are unremarkable except as noted in HPI and below (HPI) Exam Narrative: General: Pt is alert awake and in NAD Lungs/Chest: Trachea central Clear BS B/L, No crackles or wheezing. Cardiac: RRR. Normal S1 S2. No murmurs Circulation: Pedal pulses are intact and symmetrical. Abdomen: Normal bowel sounds.. Soft. NT. ND. Extremities: No clubbing, cyanosis or edema. Warm : Christian in place Neurologic: Follows commands. Moves all 4 extremities PERRL Skin: No Rash Objective Data Vital Signs Vital Signs: Vital Signs - 24 hr 06/28/24 10:49 06/28/24 11:42 06/28/24 11:44 Temperature 98.8 F Pulse Rate 98 98 Respiratory Rate 14 Blood Pressure 141/83 H Pulse Oximetry 99 100 Oxygen Delivery Room Air Fraction of Inspired Oxygen 21 06/28/24 14:00 06/28/24 16:00 06/28/24 21:24 Temperature 98.2 F 97.6 F Pulse Rate 95 92 95 Respiratory Rate 16 14 Blood Pressure 149/87 H 131/89 Pulse Oximetry 100 100 Oxygen Delivery Fraction of Inspired Oxygen 06/28/24 20:00 06/28/24 20:00 06/29/24 00:00 Temperature Pulse Rate 94 121 H Respiratory Rate Blood Pressure Pulse Oximetry Oxygen Delivery Room Air Fraction of Inspired Oxygen 06/29/24 04:00 06/29/24 04:45 Temperature 98.5 F Pulse Rate 104 H 95 Respiratory Rate 16 Blood Pressure 113/76 Pulse Oximetry 100 Oxygen Delivery Fraction of Inspired Oxygen Intake/Output Intake/Output: Intake & Output 06/27/24 06/28/24 06/28/24 06/29/24 00:59 00:59 23:59 23:59 Intake Total 452.5 Output Total Balance 452.5 Meds/Results Medications: Active Medications Generic Name Dose Route Start Last Admin Trade Name Freq PRN Reason Stop Dose Admin Capsaicin 1 applic 06/29/24 09:39 Capsaicin 0.025% Cream 60 Gm Tube TOPICAL Q6H PRN Nausea And Vomiting Dextrose 12.5 gm 06/26/24 07:22 Dextrose 50% 25 Gm/50 Ml Syringe IV PUSH PRN PRN Hypoglycemia Protocol Enoxaparin Sodium 40 mg 06/27/24 09:00 06/29/24 08:37 Enoxaparin 40 Mg/0.4 Ml Syringe SUB-Q 40 mg DAILY KARRIE Administration Folic Acid 1 mg 06/28/24 09:00 06/29/24 08:24 Folic Acid 1 Mg Tablet PO Not Given DAILY KARRIE Gabapentin 300 mg 06/27/24 21:00 06/28/24 21:03 Gabapentin 300 Mg Capsule PO 300 mg QHS KARRIE Administration Glucose 15 gm 06/26/24 07:22 Glucose Oral Gel 15 Gm Of Glucse In 37.5 Gm Tube PO PRN PRN Hypoglycemia Protocol Dextrose 1,000 mls @ 100 mls/hr 06/26/24 07:22 Dextrose 5% 1,000 Ml IVPB PRN PRN Hypoglycemia Protocol Levofloxacin/Dextrose 750 mg in 150 mls @ 100 mls/hr 06/27/24 09:00 06/29/24 08:34 Levaquin 750 Mg/D5w 150 Ml IVPB 100 mls/hr Q24H KARRIE Administration Sodium Chloride 1,000 mls @ 75 mls/hr 06/29/24 08:05 06/29/24 10:24 Normal Saline Iv IV CONT 75 mls/hr .[id number] KARRIE Infusion Insulin Aspart 4 - 8 units 06/28/24 09:00 06/29/24 08:38 Insulin Aspart (*Bkc) 100 Units/Ml SUB-Q Not Given Q4HR [facility] Protocol Insulin Glargine 20 units 06/28/24 09:00 06/29/24 08:45 Insulin Glargine (*Bkc) 100 Units/Ml SUB-Q Not Given QAM KARRIE Melatonin 5 mg 06/28/24 22:00 06/28/24 22:12 Melatonin 5 Mg Tablet PO 5 mg HS KARRIE Administration Metoclopramide HCl 10 mg 06/27/24 18:00 06/29/24 05:06 Metoclopramide Hcl Inj 10 Mg/2 Ml Vial IV PUSH 10 mg Q6HR KARRIE Administration Miscellaneous Information 1 each 06/27/24 00:01 06/28/24 00:13 Home Po Pantoprazole Is A Duplicate With Current Order Of Iv Pantoprazole. Which One Do Yo XX 07/27/24 00:00 Not Given CLARIFY [facility] Ondansetron HCl 4 mg 06/26/24 08:20 06/29/24 09:28 Ondansetron Inj 4 Mg/2 Ml Vial IV PUSH 4 mg Q4H PRN Administration Nausea And Vomiting Ondansetron HCl 4 mg 06/27/24 11:31 Ondansetron Hcl Odt 4 Mg Tablet PO .every 8 hours as nee [facility] Pantoprazole Sodium 40 mg 06/26/24 09:00 06/29/24 08:24 Pantoprazole Sodium Iv 40 Mg Vial IV PUSH 40 mg Q12HR KARRIE Administration Promethazine HCl 25 mg 06/29/24 09:31 Promethazine Hcl 25 Mg Supp.Rect RECTAL Q4H PRN Nausea And Vomiting Sucralfate 1,000 mg 06/29/24 11:30 06/29/24 10:22 Sucralfate Susp 100 Mg/Ml 10 Ml Udc PO 1,000 mg ACHS KARRIE Administration Thiamine HCl 100 mg 06/28/24 09:00 06/29/24 08:24 Thiamine Hcl 100 Mg Tablet PO Not Given DAILY KARRIE Vitamin D 2,000 units 06/28/24 09:00 06/29/24 08:24 Cholecalciferol 1,000 Units Tablet PO Not Given DAILY KARRIE Radiology Results: ITS Impressions Chest X-Ray 06/26/24 17:50 IMPRESSION: Highly suggestive focal pneumonia in the left lower lobe. Follow-up to resolution is advised to exclude a mass. Abdomen X-Ray 06/27/24 14:03 IMPRESSION: NG tube in stomach Chest/Abdomen/Pelvis CT 06/27/24 19:31 IMPRESSION: Circumferential nonspecific soft tissue thickening of the distal esophagus; this might be due to esophagitis Approximately 3 x 4 cm left ovarian cystic lesion; consider pelvic ultrasound Normal appendix Labs Labs: Laboratory Results - last 24 hr 06/28/24 06/28/24 06/28/24 10:38 11:36 15:59 WBC RBC Hgb Hct MCV MCH MCHC RDW Plt Count MPV Sodium Potassium Chloride Carbon Dioxide Anion Gap BUN Creatinine Estim Creat Clear Calc Estimated GFR Glucose POC Capillary Glucose 244 H 260 H 122 H Calcium Magnesium Total Bilirubin AST ALT Alkaline Phosphatase Total Protein Albumin 06/28/24 06/29/24 06/29/24 21:01 00:01 04:48 WBC RBC Hgb Hct MCV MCH MCHC RDW Plt Count MPV Sodium Potassium Chloride Carbon Dioxide Anion Gap BUN Creatinine Estim Creat Clear Calc Estimated GFR Glucose POC Capillary Glucose 259 H 121 H 221 H Calcium Magnesium Total Bilirubin AST ALT Alkaline Phosphatase Total Protein Albumin 06/29/24 06/29/24 06:01 08:00 WBC 8.9 RBC 5.24 Hgb 14.2 Hct 42.5 MCV 81.1 MCH 27.1 MCHC 33.4 RDW 12.8 Plt Count 312 MPV 9.8 Sodium 132 L Potassium 3.0 L Chloride 95 L Carbon Dioxide 23 Anion Gap 14 H BUN 13 D Creatinine 1.00 Estim Creat Clear Calc 67 Estimated GFR > 60 Glucose 226 H POC Capillary Glucose 147 H Calcium 8.9 Magnesium 1.5 L Total Bilirubin 1.4 H AST 21 ALT 13 Alkaline Phosphatase 68 Total Protein 8.0 Albumin 4.2
[2024-06-29 11:46] LABS: Glucose Point of Care 267 mg/dl (65-105)
--- NOTE | 2024-06-29 14:21 | ECG_ITS ---
Test Date: 2024-06-29 14:43:06 Measurements Intervals [place] Rate: 100 P: 63 RI: 128 QRS: -6 QRSD: 73 T: 57 QT: 374 QTc: 484 Interpretive Statements SINUS TACHYCARDIA LEFT ATRIAL ENLARGEMENT DELAYED PRECORDIAL R/S TRANSITION CONSIDER INFERIOR INFARCT, AGE INDETERMINATE ABNORMAL ECG No previous ECG available for comparison Electronically Signed On 06-29-2024 15:18:55 PATCHING MACHINE OPERATOR by Francois Hammonds D.O.
[2024-06-29] MEDS: SODIUM CHLORIDE 0.9% IV 1,000 ML 999 ML IV CONT (14:32)
[2024-06-29] MEDS: CAPSAICIN 0.025% CREAM 60 GM TUBE 1 APPLIC TOPICAL (14:36)
[2024-06-29 17:08] LABS: Glucose Point of Care 182 mg/dl (65-105)
[2024-06-29] MEDS: PROMETHAZINE HCL 25 MG SUPP.RECT RECTAL (20:33)
[2024-06-29] MEDS: MELATONIN 5 MG TABLET PO (20:33)
[2024-06-29] MEDS: GABAPENTIN 300 MG CAPSULE PO (20:33)
[2024-06-29] MEDS: SODIUM CHLORIDE 0.9% IV 1,000 ML 100 ML IV CONT (22:07)
[2024-06-30] VITALS (10 sets, daily range): BP systolic 140–167; BP diastolic 77–88; PULSE 90–112; RESP 18–20; TEMP 36.4–37.3; O2SAT 100
[2024-06-30 00:11] LABS: Glucose Point of Care 153 mg/dl (65-105)
[2024-06-30 00:11] LABS: Glucose Point of Care 230 mg/dl (65-105)
[2024-06-30] MEDS: ONDANSETRON INJ 4 MG/2 ML VIAL IV PUSH ×2 (04:26→10:03)
[2024-06-30] MEDS: INSULIN ASPART (*BKC) 100 UNITS/ML SUB-Q ×3 (05:03→17:16)
[2024-06-30] MEDS: METOCLOPRAMIDE HCL INJ 10 MG/2 ML VIAL IV PUSH ×3 (05:03→17:13)
[2024-06-30 05:44] LABS: Alanine Aminotransferase 8 U/L (6-35); Albumin Level 3.9 g/dL (3.5-5.1); Alkaline Phosphatase 58 U/L (38-126); Anion Gap 17 mmol/L (4-12); Aspartate Amino Transferase 20 U/L (14-36); Bilirubin,Total 1.5 mg/dL (0.2-1.3); Blood Urea Nitrogen 14 mg/dL (7-17); Calcium 8.5 mg/dL (8.4-10.2); Carbon Dioxide 16 mmol/L (22-30); Chloride 99 mmol/L (98-107); Estimated CRCL calculation 82 ml/min; Estimated Glomerular Filt Rate > 60; Glucose 199 mg/dL (65-110); Magnesium 1.7 mg/dL (1.6-2.3); Potassium 3.3 mmol/L (3.4-5.0); Sodium 132 mmol/L (137-145)
[2024-06-30] MEDS: SUCRALFATE SUSP 100 MG/ML 10 ML UDC 1000 MG PO ×4 (06:16→21:04)
[2024-06-30] MEDS: PROMETHAZINE HCL 25 MG SUPP.RECT RECTAL ×2 (06:18→21:00)
[2024-06-30 07:20] LABS: Basophils Percent Auto 0.4 % (0.2-1.2); Eosinophils Absolute Auto 0.1 K/mm3 (0-0.3); Eosinophils Percent Auto 1.3 % (0-4.4); Hematocrit 36.3 % (37.0-47.0); Hemoglobin 12.2 g/dL (12.0-15.0); Immature Granulocyte Absolute 0.05 K/mm3 (0.00-0.031); Immature Granulocyte Percent A 0.7 % (0-0.5); Lymphocytes Absolute Auto 1.57 K/mm3 (0.9-3.2); Lymphocytes Percent Auto 20.8 % (18.3-44.2); Mean Corpuscular HGB Conc 33.6 g/dl (32-36); Mean Corpuscular Hemoglobin 27.5 pg (26-34); Mean Corpuscular Volume 81.9 fl (80-100); Mean Platelet Volume 10.2 fl (7.4-10.4); Monocytes Absolute Auto 0.8 K/mm3 (0.1-0.6); Monocytes Percent Auto 9.9 % (2.6-8.5); Neutrophils Absolute Auto 5.1 K/mm3 (1.3-6.7); Neutrophils Percent Auto 66.9 % (45.5-73.1); Platelet Count Result 200 k/mm3 (150-375); Red Blood Count 4.43 M/mm3 (4.2-5.4); Red Cell Distribution Width 13.2 % (11.5-14.5); White Blood Count 7.6 K/mm3 (4.5-10.0)
[2024-06-30] MEDS: SODIUM CHLORIDE 0.9% IV 1,000 ML 100 ML IV CONT ×2 (07:56→21:01)
[2024-06-30 08:11] LABS: Glucose Point of Care 139 mg/dl (65-105)
[2024-06-30] MEDS: FOLIC ACID 1 MG TABLET PO (08:47)
[2024-06-30] MEDS: CHOLECALCIFEROL 1,000 UNITS TABLET 2000 UNITS PO (08:47)
[2024-06-30] MEDS: ENOXAPARIN 40 MG/0.4 ML SYRINGE SUB-Q (08:47)
[2024-06-30] MEDS: THIAMINE HCL 100 MG TABLET PO (08:47)
[2024-06-30] MEDS: PANTOPRAZOLE SODIUM IV 40 MG VIAL IV PUSH ×2 (08:48→21:02)
[2024-06-30] MEDS: CAPSAICIN 0.025% CREAM 60 GM TUBE 1 APPLIC TOPICAL (08:54)
[2024-06-30 12:38] LABS: Glucose Point of Care 244 mg/dl (65-105)
--- NOTE | 2024-06-30 16:36 | PM.IMPN ---
Progress Note: A&P Assessment and Plan (1) DKA (diabetic ketoacidoses): Code(s): E11.10 - Type 2 diabetes mellitus with ketoacidosis without coma Status: Acute Assessment and Plan: Anion gap has closed. Will discontinue IV fluids and insulin infusion now on suq insulin regimen lantus decreased to 10units as patient is not eating contineu SSI with accuhceks on clear liquid diet for now advance as tolerated (2) Esophagitis: Code(s): K20.90 - Esophagitis, unspecified without bleeding Status: Acute (3) Gastroparesis: Code(s): K31.84 - Gastroparesis Status: Acute Assessment and Plan: Continue Reglan (4) Nausea and vomiting: Qualifiers: Vomiting type: bilious vomiting Qualified Code(s): R11.14 - Bilious vomiting Code(s): R11.2 - Nausea with vomiting, unspecified Status: Acute Assessment and Plan: Patient has persistent nausea vomiting despite Zofran Compazine and Reglan Patient removed NG tube that was placed in the ICU CT AP reviewed Continue Promethazine 25mg suppository q4 hours per GI Continue PRN Zofran clear liquid diet as tolerated Gi following (5) Pneumonia: Code(s): J18.9 - Pneumonia, unspecified organism Status: Acute Assessment and Plan: ruled out CT Chest adn AP Showed no pneumonia antibiotics discontinued (6) Cannabinoid hyperemesis syndrome: Code(s): R11.2 - Nausea with vomiting, unspecified; F12.90 - Cannabis use, unspecified, uncomplicated Status: Acute Plan Esophagitis EGD on 04/23 : Ulcerative esophagitis and advised to repeat EGD in 4 months to assess healing. Increase the dose of Zofran from 4 mg to 8 mg Consider GI cocktail Carafate 1 g p.o. q.h.s. PPI CT AP showed distal circumferential non specific soft tissue thickening of the distal esophagus Contine PPI, Carafate Possible EGD GI following, appreciate input Cannabinoid hyperemesis syndrome Chronic marijuana smoker Continue IV hydration Continue the current treatment ppi Ativan p.r.n. for anxiety Stop using marijuana Consider drug rehab if necessary LEft ovarian cyst CT AP showed let ovarian cyst US pelvis ordered further plans per US DVT prophylaxis -Sq Lovenox Nutrition -clear liquid diet. Advance as tolerated. Code Status - Full Code Subjective Date/time seen: 06/30/24 16:36 Interval history: Patient continues to have abdominal pain,N, V. Patient is chronic marijuana smoker. Explained possible acyclic vomiting from Marijuana (CHS) vs gastritis vs ulcerative esophagitis. Patient reports she underwent EGD last month which shows ulcers and continued PPI x 10 days and discontinued. Review of Systems Review of Systems: All other systems were reviewed and negative except as noted in the history above. All systems reviewed & are unremarkable except as noted in HPI and below (HPI) Exam Narrative: General: Pt is alert awake and in NAD Lungs/Chest: Trachea central Clear BS B/L, No crackles or wheezing. Cardiac: RRR. Normal S1 S2. No murmurs Circulation: Pedal pulses are intact and symmetrical. Abdomen: Normal bowel sounds.. Soft. NT. ND. Extremities: No clubbing, cyanosis or edema. Warm : Christian in place Neurologic: Follows commands. Moves all 4 extremities PERRL Skin: No Rash Objective Data Vital Signs Vital Signs: Vital Signs - 24 hr 06/29/24 20:08 06/29/24 20:07 06/29/24 20:00 Temperature 97.7 F 97.7 F Pulse Rate 96 96 95 Respiratory Rate 20 20 Blood Pressure 159/85 H 159/85 H Pulse Oximetry 100 100 Oxygen Delivery 06/29/24 20:00 06/30/24 00:00 06/30/24 04:00 Temperature Pulse Rate 103 H 102 H Respiratory Rate Blood Pressure Pulse Oximetry Oxygen Delivery Room Air 06/30/24 04:58 06/30/24 08:47 06/30/24 08:00 Temperature 97.7 F Pulse Rate 94 112 H Respiratory Rate 20 Blood Pressure 167/88 H Pulse Oximetry 100 Oxygen Delivery Room Air 06/30/24 13:04 06/30/24 14:42 06/30/24 12:00 Temperature 97.5 F L 97.9 F Pulse Rate 95 92 96 Respiratory Rate 18 20 Blood Pressure 145/82 H 144/84 H Pulse Oximetry 100 100 Oxygen Delivery Intake/Output Intake/Output: Intake & Output 06/28/24 06/28/24 06/29/24 06/30/24 00:59 23:59 23:59 23:59 Intake Total 2450.0 1546.7 Output Total 500 100 Balance 1950.0 1446.7 Meds/Results Medications: Active Medications Generic Name Dose Route Start Last Admin Trade Name Freq PRN Reason Stop Dose Admin Capsaicin 1 applic 06/29/24 09:39 06/30/24 08:54 Capsaicin 0.025% Cream 60 Gm Tube TOPICAL 1 applic Q6H PRN Administration Nausea And Vomiting Dextrose 12.5 gm 06/26/24 07:22 Dextrose 50% 25 Gm/50 Ml Syringe IV PUSH PRN PRN Hypoglycemia Protocol Enoxaparin Sodium 40 mg 06/27/24 09:00 06/30/24 08:47 Enoxaparin 40 Mg/0.4 Ml Syringe SUB-Q 40 mg DAILY KARRIE Administration Folic Acid 1 mg 06/28/24 09:00 06/30/24 08:47 Folic Acid 1 Mg Tablet PO 1 mg DAILY KARRIE Administration Gabapentin 300 mg 06/27/24 21:00 06/29/24 20:33 Gabapentin 300 Mg Capsule PO 300 mg QHS KARRIE Administration Glucose 15 gm 06/26/24 07:22 Glucose Oral Gel 15 Gm Of Glucse In 37.5 Gm Tube PO PRN PRN Hypoglycemia Protocol Dextrose 1,000 mls @ 100 mls/hr 06/26/24 07:22 Dextrose 5% 1,000 Ml IVPB PRN PRN Hypoglycemia Protocol Sodium Chloride 1,000 mls @ 100 mls/hr 06/29/24 08:05 06/30/24 07:56 Normal Saline Iv IV CONT 100 mls/hr .Q10H KARRIE Administration Insulin Aspart 4 - 8 units 06/28/24 09:00 06/30/24 12:56 Insulin Aspart (*Bkc) 100 Units/Ml SUB-Q 4 units Q4HR KARRIE Administration Protocol Insulin Glargine 20 units 06/28/24 09:00 06/29/24 08:45 Insulin Glargine (*Bkc) 100 Units/Ml SUB-Q Not Given QAM KARRIE Lorazepam 0.5 mg 06/30/24 15:06 Lorazepam Inj (*Crx) 2 Mg/Ml Vial IV PUSH Q6H PRN Anxiety Melatonin 5 mg 06/28/24 22:00 06/29/24 20:33 Melatonin 5 Mg Tablet PO 5 mg HS KARRIE Administration Metoclopramide HCl 10 mg 06/27/24 18:00 06/30/24 11:22 Metoclopramide Hcl Inj 10 Mg/2 Ml Vial IV PUSH 10 mg Q6HR KARRIE Administration Ondansetron HCl 4 mg 06/27/24 11:31 Ondansetron Hcl Odt 4 Mg Tablet PO .every 8 hours as nee KARRIE Ondansetron HCl 8 mg 06/30/24 15:06 Ondansetron Inj 4 Mg/2 Ml Vial IV PUSH Q4H PRN Nausea And Vomiting Pantoprazole Sodium 40 mg 06/26/24 09:00 06/30/24 08:48 Pantoprazole Sodium Iv 40 Mg Vial IV PUSH 40 mg Q12HR KARRIE Administration Promethazine HCl 25 mg 06/29/24 09:31 06/30/24 06:18 Promethazine Hcl 25 Mg Supp.Rect RECTAL 25 mg Q4H PRN Administration Nausea And Vomiting Sucralfate 1,000 mg 06/29/24 11:30 06/30/24 11:22 Sucralfate Susp 100 Mg/Ml 10 Ml Udc PO 1,000 mg ACHS KARRIE Administration Thiamine HCl 100 mg 06/28/24 09:00 06/30/24 08:47 Thiamine Hcl 100 Mg Tablet PO 100 mg DAILY KARRIE Administration Vitamin D 2,000 units 06/28/24 09:00 06/30/24 08:47 Cholecalciferol 1,000 Units Tablet PO 2,000 units DAILY KARRIE Administration Radiology Results: ITS Impressions Chest X-Ray 06/26/24 17:50 IMPRESSION: Highly suggestive focal pneumonia in the left lower lobe. Follow-up to resolution is advised to exclude a mass. Abdomen X-Ray 06/27/24 14:03 IMPRESSION: NG tube in stomach Chest/Abdomen/Pelvis CT 06/27/24 19:31 IMPRESSION: Circumferential nonspecific soft tissue thickening of the distal esophagus; this might be due to esophagitis Approximately 3 x 4 cm left ovarian cystic lesion; consider pelvic ultrasound Normal appendix Pelvis Ultrasound 06/29/24 15:33 IMPRESSION: 1. 5.8 cm hemorrhagic cyst in left ovary. Ultrasound is recommended in 2-3 months. Labs Labs: Laboratory Results - last 24 hr 06/29/24 06/29/24 06/30/24 17:05 20:04 00:07 WBC RBC Hgb Hct MCV MCH MCHC RDW Plt Count MPV Immature Gran % (Auto) Neut % (Auto) Lymph % (Auto) [place] % (Auto) Eos % (Auto) Baso % (Auto) Lymph # (Auto) [place] # (Auto) Eos # (Auto) Baso # (Auto) Abs Immat Gran (auto) Absolute Neuts (auto) Absolute Nucleated RBC Nucleated RBC % Sodium Potassium Chloride Carbon Dioxide Anion Gap BUN Creatinine Estim Creat Clear Calc Estimated GFR Glucose POC Capillary Glucose 182 H 230 H 153 H Calcium Magnesium Total Bilirubin AST ALT Alkaline Phosphatase Total Protein Albumin 06/30/24 06/30/24 06/30/24 05:17 07:15 08:07 WBC 7.6 RBC 4.43 Hgb 12.2 Hct 36.3 L MCV 81.9 MCH 27.5 MCHC 33.6 RDW 13.2 Plt Count 200 MPV 10.2 Immature Gran % (Auto) 0.7 H Neut % (Auto) 66.9 Lymph % (Auto) 20.8 [place] % (Auto) 9.9 H Eos % (Auto) 1.3 Baso % (Auto) 0.4 Lymph # (Auto) 1.57 [place] # (Auto) 0.8 H Eos # (Auto) 0.1 Baso # (Auto) 0.0 Abs Immat Gran (auto) 0.05 H Absolute Neuts (auto) 5.1 Absolute Nucleated RBC 0.000 Nucleated RBC % 0.0 Sodium 132 L Potassium 3.3 L Chloride 99 Carbon Dioxide 16 L Anion Gap 17 H BUN 14 Creatinine 0.80 Estim Creat Clear Calc 82 Estimated GFR > 60 Glucose 199 H POC Capillary Glucose 139 H Calcium 8.5 Magnesium 1.7 Total Bilirubin 1.5 H AST 20 ALT 8 Alkaline Phosphatase 58 Total Protein 7.0 Albumin 3.9 06/30/24 12:21 WBC RBC Hgb Hct MCV MCH MCHC RDW Plt Count MPV Immature Gran % (Auto) Neut % (Auto) Lymph % (Auto) [place] % (Auto) Eos % (Auto) Baso % (Auto) Lymph # (Auto) [place] # (Auto) Eos # (Auto) Baso # (Auto) Abs Immat Gran (auto) Absolute Neuts (auto) Absolute Nucleated RBC Nucleated RBC % Sodium Potassium Chloride Carbon Dioxide Anion Gap BUN Creatinine Estim Creat Clear Calc Estimated GFR Glucose POC Capillary Glucose 244 H Calcium Magnesium Total Bilirubin AST ALT Alkaline Phosphatase Total Protein Albumin Hospitalist MIPS Advance Care Plan I have confirmed that the patient's Advanced Care Plan is present, code status is documented, or surrogate decision maker is listed in patient medical record.: Yes Medication Reconciliation I have utilized all available resources to obtain, update and review the patients current medications (includes all prescriptions, OTC, herbals, cannabis, and nutritional supplements).: Yes
[2024-06-30 16:54] LABS: Glucose Point of Care 209 mg/dl (65-105)
[2024-06-30 18:14] LABS: Glucose Point of Care 223 mg/dl (65-105)
[2024-06-30] MEDS: ONDANSETRON INJ 4 MG/2 ML VIAL 8 MG IV PUSH (18:44)
[2024-06-30 20:27] LABS: Glucose Point of Care 196 mg/dl (65-105)
[2024-06-30] MEDS: MELATONIN 5 MG TABLET PO (21:03)
[2024-06-30] MEDS: GABAPENTIN 300 MG CAPSULE PO (21:04)
[2024-06-30] MEDS: LORazepam INJ (*CRX) 2 MG/ML VIAL 0.5 MG IV PUSH (21:09)
[2024-07-01] VITALS (11 sets, daily range): BP systolic 84–137; BP diastolic 51–79; PULSE 79–95; RESP 12–20; TEMP 35.8–36.8; O2SAT 99–100
[2024-07-01 00:17] LABS: Glucose Point of Care 214 mg/dl (65-105)
[2024-07-01] MEDS: INSULIN ASPART (*BKC) 100 UNITS/ML SUB-Q ×2 (00:18→11:49)
[2024-07-01] MEDS: METOCLOPRAMIDE HCL INJ 10 MG/2 ML VIAL IV PUSH ×4 (00:18→17:32)
[2024-07-01] MEDS: SODIUM CHLORIDE 0.9% IV 1,000 ML 100 ML IV CONT ×2 (04:55→11:48)
[2024-07-01 04:57] LABS: Glucose Point of Care 186 mg/dl (65-105)
[2024-07-01 05:06] LABS: Hematocrit 31.5 % (37.0-47.0); Hemoglobin 10.4 g/dL (12.0-15.0); Mean Corpuscular Hemoglobin 27.3 pg (26-34); Mean Corpuscular Volume 82.7 fl (80-100); Mean Platelet Volume 9.9 fl (7.4-10.4); Platelet Count Result 228 k/mm3 (150-375); Red Blood Count 3.81 M/mm3 (4.2-5.4); Red Cell Distribution Width 13.1 % (11.5-14.5); White Blood Count 6.1 K/mm3 (4.5-10.0)
[2024-07-01 05:18] LABS: Alanine Aminotransferase 8 U/L (6-35); Albumin Level 3.2 g/dL (3.5-5.1); Alkaline Phosphatase 47 U/L (38-126); Anion Gap 12 mmol/L (4-12); Aspartate Amino Transferase 16 U/L (14-36); Bilirubin,Total 1.1 mg/dL (0.2-1.3); Blood Urea Nitrogen 10 mg/dL (7-17); Calcium 7.7 mg/dL (8.4-10.2); Carbon Dioxide 21 mmol/L (22-30); Chloride 100 mmol/L (98-107); Estimated CRCL calculation 93 ml/min; Estimated Glomerular Filt Rate > 60; Glucose 196 mg/dL (65-110); Magnesium 1.5 mg/dL (1.6-2.3); Potassium 2.9 mmol/L (3.4-5.0); Sodium 133 mmol/L (137-145)
[2024-07-01] MEDS: SUCRALFATE SUSP 100 MG/ML 10 ML UDC 1000 MG PO ×3 (05:47→17:32)
--- NOTE | 2024-07-01 07:40 | WPDANESEPPF ---
Anes - Initial Pre Proc Eval Procedure: Operation Date: 07/01/24 09:00 Proposed Procedures p Esophagogastroduodenoscopy - Robin Dc MD Date/Time: 07/01/24 07:40 Surgeon: Jaya Peña MD Pre Op Diagnosis: DKA Patient Data Age: 39 Gender: F Height: 1.63 m Weight: 73.1 kg Last Vital Signs Temp 36.6 C 07/01/24 06:00 Pulse 93 07/01/24 06:00 Resp 18 07/01/24 06:00 BP 137/70 07/01/24 06:00 Pulse Ox 100 07/01/24 06:00 O2 Del Method Room Air 06/30/24 20:00 FiO2 21 06/30/24 20:00 Allergies Allergy/AdvReac Type Severity Reaction Status Date / Time No Known Allergies Allergy Verified 06/24/24 13:56 Home Medications Medication Instructions Recorded Confirmed Type thiamine HCl (vitamin B1) 100 mg 100 mg PO DAILY 01/08/24 06/26/24 History tablet folic acid 1 mg tablet 1 mg PO DAILY #90 tabs 01/09/24 06/26/24 Rx insulin pump cart,auto,BT,G6/7 #30 ea 01/09/24 06/26/24 Rx (Omnipod 5 G6-G7 Pods (Gen 5) subcutaneous cartridge) insulin pump cartridge,auto #1 ea 01/09/24 06/26/24 Rx dose,BT,G6/G7 with controller subcutaneous (Omnipod 5 G6-G7 Intro Kit(Gen 5) subcutaneous cartridge and controller) pantoprazole 40 mg tablet,delayed 40 mg PO QAM #90 tabs 01/09/24 06/26/24 Rx release cholecalciferol (vitamin D3) 50 50 mcg PO DAILY #90 caps 01/17/24 06/26/24 Rx mcg (2,000 unit) capsule gabapentin 300 mg capsule 300 mg PO QHS #90 caps 01/17/24 06/26/24 Rx lisinopril 2.5 mg tablet 2.5 mg PO DAILY #90 tabs 01/30/24 06/26/24 Rx ondansetron 4 mg disintegrating 4 mg PO .every 8 hours as nee #20 01/30/24 06/26/24 Rx tablet tabs insulin pump cartridge,auto #1 ea 05/14/24 06/26/24 Rx dose,BT,G6/G7 with controller subcutaneous blood-glucose sensor (Dexcom G6 #9 ea 06/02/24 06/26/24 Rx Sensor device) glucagon 1 mg/0.2 mL subcutaneous 1 mg (0.2 mL) subcut ONCE #0.4 mL 06/02/24 06/26/24 Rx auto-injector (Gvoke HypoPen 2-Pack) glucose 4 gram chewable tablet 16 g PO Q15M PRN hypoglycemia #360 06/02/24 06/26/24 Rx tabs insulin lispro 100 unit/mL See Rx Instructions subcut PRN 06/02/24 06/26/24 Rx subcutaneous solution insulin pump #60 mL insulin pump cart,auto,BT,G6/7 #45 ea 06/02/24 06/26/24 Rx metronidazole 500 mg tablet 500 mg PO Q12H #14 tabs 06/30/24 Rx Laboratory Tests 06/30/24 06/30/24 06/30/24 04:57 08:07 12:21 WBC RBC Hgb Hct MCV MCH MCHC RDW Plt Count MPV Sodium Potassium Chloride Carbon Dioxide Anion Gap BUN Creatinine Estim Creat Clear Calc Estimated GFR Glucose POC Capillary Glucose 223 H mg/dl 139 H mg/dl 244 H mg/dl (65-105) (65-105) (65-105) Calcium Magnesium Total Bilirubin AST ALT Alkaline Phosphatase Total Protein Albumin 06/30/24 06/30/24 07/01/24 16:51 20:24 00:13 WBC RBC Hgb Hct MCV MCH MCHC RDW Plt Count MPV Sodium Potassium Chloride Carbon Dioxide Anion Gap BUN Creatinine Estim Creat Clear Calc Estimated GFR Glucose POC Capillary Glucose 209 H mg/dl 196 H mg/dl 214 H mg/dl (65-105) (65-105) (65-105) Calcium Magnesium Total Bilirubin AST ALT Alkaline Phosphatase Total Protein Albumin 07/01/24 07/01/24 04:31 04:54 WBC 6.1 K/mm3 (4.5-10.0) RBC 3.81 L M/mm3 (4.2-5.4) Hgb 10.4 L g/dL (12.0-15.0) Hct 31.5 L % (37.0-47.0) MCV 82.7 fl (80-100) MCH 27.3 pg (26-34) MCHC 33.0 g/dl (32-36) RDW 13.1 % (11.5-14.5) Plt Count 228 k/mm3 (150-375) MPV 9.9 fl (7.4-10.4) Sodium 133 L mmol/L (137-145) Potassium 2.9 L mmol/L (3.4-5.0) Chloride 100 mmol/L (98-107) Carbon Dioxide 21 L mmol/L (22-30) Anion Gap 12 mmol/L (4-12) BUN 10 mg/dL (7-17) Creatinine 0.70 mg/dL (0.7-1.0) Estim Creat Clear Calc 93 ml/min Estimated GFR > 60 (59 - ) Glucose 196 H mg/dL (65-110) POC Capillary Glucose 186 H mg/dl (65-105) Calcium 7.7 L mg/dL (8.4-10.2) Magnesium 1.5 L mg/dL (1.6-2.3) Total Bilirubin 1.1 mg/dL (0.2-1.3) AST 16 U/L (14-36) ALT 8 U/L (6-35) Alkaline Phosphatase 47 U/L (38-126) Total Protein 6.0 L g/dL (6.3-8.2) Albumin 3.2 L g/dL (3.5-5.1) Patient hx anesthesia problems: none Family hx anesthesia problems: none Results Review: All pre-operative results and documents have been reviewed as part of the pre-operative evaluation. FOR[facility]LY [facility] Past Medical History Medical History Elevated liver enzymes Exposure to sexually transmitted disease (STD) Type 1 diabetes mellitus Diagnosed at [age] of 7. Hemoglobin A1c was 10.8% on 08/09/2020. Surgical History Surgical History History of 3 sections History of gynecological procedure 04/29/2020- mirena iud insertion - 10/23/2021 mirena iud removal -nm Family History Family History Grandparent Breast cancer Father Diabetes mellitus Other Hypertension Social History Social History Smoking packs per day: 1 Smoking cigarettes per day: 20.0 Years smoked: 25 Smoking pack-years: 25.00 Smoking status: Current every day smoker Tobacco type: cigarettes Second hand tobacco smoke exposure: No Alcohol intake: former Drinks per week: 20 Alcohol use details: occasional Substance use: current Substance use type: marijuana Last use: 08/12/23 Do You Feel Safe in your Home?: Yes Lack of Transportation: No Lack of Food: Never True Current Housing: I Have Housing Concerned About Future Housing: No Difficulty Paying Gas/Electric Bills: No Difficulty Paying for Meds: No Currently Unemployed: No Education: High School Diploma/GED Difficulty w/ Childcare or Family Care: No Living arrangements: with family Occupation/Education: unemployed Gender identity (if verbalized by the patient): Female Sexual Orientation (if Verbalized by the Patient): Straight or Heterosexual Spiritual care concerns: No Anes - Eval Final PreProcedure Day of Procedure 07/01/24 07:40 Patient weight: overweight Heart: regular rate and rhythm Lungs: clear to auscultation Airway: Mallampati scale class II Neurological: alert and oriented Last oral intake: >/= 8 hours ASA classification: III Emergent: no Anesthetic plan: proceed Anesthesia type and monitoring: general GIVS and standard monitoring Results Review: All pre-operative results and documents have been reviewed as part of the pre-operative evaluation. Informed Consent: The patient's anesthetic plan and its attendant risks and benefits were discussed with the patient/family/POA. Questions were solicited and answers provided to the satisfaction of the patient/family/POA.
--- NOTE | 2024-07-01 07:50 | PC.NURSE ---
To GI Lab via wheelchair for EGD. Report given to Armani NESBITT.
[2024-07-01 07:56] LABS: Glucose Point of Care 242 mg/dl (65-105)
[2024-07-01 08:08] LABS: BEDSIDEPREGUCG Negative (Negative)
[2024-07-01] MEDS: LACTATED RINGERS 1,000 ML 150 ML IV CONT (08:10)
[2024-07-01] MEDS: BENZOCAINE (*SP) 60 ML SPRAY CAN (HURRICAINE) 1 SPRAY MUCOUS MEM (08:41)
[2024-07-01 09:14] LABS: Glucose Point of Care 280 mg/dl (65-105)
--- NOTE | 2024-07-01 10:23 | PM.IMPN ---
Progress Note: A&P Assessment and Plan (1) DKA (diabetic ketoacidoses): Code(s): E11.10 - Type 2 diabetes mellitus with ketoacidosis without coma Status: Acute Assessment and Plan: Anion gap has closed. Will discontinue IV fluids and insulin infusion now on suq insulin regimen lantus decreased to 10units as patient is not eating contineu SSI with accuhceks on clear liquid diet for now advance as tolerated (2) Esophagitis: Code(s): K20.90 - Esophagitis, unspecified without bleeding Status: Acute (3) Gastroparesis: Code(s): K31.84 - Gastroparesis Status: Acute Assessment and Plan: Continue Reglan (4) Nausea and vomiting: Qualifiers: Vomiting type: bilious vomiting Qualified Code(s): R11.14 - Bilious vomiting Code(s): R11.2 - Nausea with vomiting, unspecified Status: Acute Assessment and Plan: Patient has persistent nausea vomiting despite Zofran Compazine and Reglan Patient removed NG tube that was placed in the ICU CT AP reviewed Continue Promethazine 25mg suppository q4 hours per GI Continue PRN Zofran clear liquid diet as tolerated Gi following (5) Pneumonia: Code(s): J18.9 - Pneumonia, unspecified organism Status: Acute Assessment and Plan: ruled out CT Chest adn AP Showed no pneumonia antibiotics discontinued (6) Cannabinoid hyperemesis syndrome: Code(s): R11.2 - Nausea with vomiting, unspecified; F12.90 - Cannabis use, unspecified, uncomplicated Status: Acute Plan Esophagitis EGD on 07/01 : Improved gastritis from the previous EGD. Refer EGD report for full details. EGD on 04/23 : Ulcerative esophagitis and advised to repeat EGD in 4 months to assess healing. Increase the dose of Zofran from 4 mg to 8 mg Consider GI cocktail Carafate 1 g p.o. q.h.s. PPI CT AP showed distal circumferential non specific soft tissue thickening of the distal esophagus Contine PPI, Carafate Possible EGD GI following, appreciate input Cannabinoid hyperemesis syndrome Chronic marijuana smoker Continue IV hydration Continue the current treatment ppi Ativan p.r.n. for anxiety Stop using marijuana Consider drug rehab if necessary LEft ovarian cyst CT AP showed let ovarian cyst US pelvis ordered further plans per US BV Vaginal swab performed on 06/24 resulted Atopobium Vaginae . Started Metronidazole 500 mg PO BID x 7 days. DVT prophylaxis -Sq Lovenox Nutrition -clear liquid diet. Advance as tolerated. Code Status - Full Code Subjective Date/time seen: 07/01/24 10:23 Interval history: Replaced potassium. Underwent EGD. Gastritis improved as per EGD reports. Advance diet as tolerated. Review of Systems Review of Systems: All other systems were reviewed and negative except as noted in the history above. All systems reviewed & are unremarkable except as noted in HPI and below (HPI) Exam Narrative: General: Pt is alert awake and in NAD Lungs/Chest: Trachea central Clear BS B/L, No crackles or wheezing. Cardiac: RRR. Normal S1 S2. No murmurs Circulation: Pedal pulses are intact and symmetrical. Abdomen: Normal bowel sounds.. Soft. NT. ND. Extremities: No clubbing, cyanosis or edema. Warm : Christian in place Neurologic: Follows commands. Moves all 4 extremities PERRL Skin: No Rash Objective Data Vital Signs Vital Signs: Vital Signs - 24 hr 06/30/24 13:04 06/30/24 14:42 06/30/24 12:00 Temperature 97.5 F L 97.9 F Pulse Rate 95 92 96 Respiratory Rate 18 20 Blood Pressure 145/82 H 144/84 H Pulse Oximetry 100 100 Oxygen Delivery Fraction of Inspired Oxygen 06/30/24 16:00 06/30/24 20:00 06/30/24 20:00 Temperature Pulse Rate 94 102 H 102 H Respiratory Rate 20 Blood Pressure Pulse Oximetry 100 Oxygen Delivery Room Air Fraction of Inspired Oxygen 21 06/30/24 22:00 07/01/24 00:00 07/01/24 04:00 Temperature 99.1 F Pulse Rate 90 89 79 Respiratory Rate 18 Blood Pressure 140/77 Pulse Oximetry 100 Oxygen Delivery Fraction of Inspired Oxygen 07/01/24 06:00 07/01/24 07:59 07/01/24 07:40 Temperature 97.9 F 96.5 F L Pulse Rate 93 81 Respiratory Rate 18 16 Blood Pressure 137/70 130/78 Pulse Oximetry 100 99 Oxygen Delivery Room Air Room Air Fraction of Inspired Oxygen 07/01/24 08:49 07/01/24 08:59 07/01/24 09:09 Temperature Pulse Rate 81 86 81 Respiratory Rate 20 20 19 Blood Pressure 84/51 L 102/69 123/79 Pulse Oximetry 100 100 100 Oxygen Delivery Room Air Room Air Room Air Fraction of Inspired Oxygen 07/01/24 09:22 Temperature Pulse Rate 82 Respiratory Rate 12 Blood Pressure 121/78 Pulse Oximetry 100 Oxygen Delivery Fraction of Inspired Oxygen Intake/Output Intake/Output: Intake & Output 06/28/24 06/29/24 06/30/24 07/01/24 23:59 23:59 23:59 23:59 Intake Total 2450.0 3296.7 890 Output Total 500 100 Balance 1950.0 3196.7 890 Meds/Results Medications: Active Medications Generic Name Dose Route Start Last Admin Trade Name Freq PRN Reason Stop Dose Admin Capsaicin 1 applic 06/29/24 09:39 06/30/24 08:54 Capsaicin 0.025% Cream 60 Gm Tube TOPICAL 1 applic Q6H PRN Administration Nausea And Vomiting Dextrose 12.5 gm 06/26/24 07:22 Dextrose 50% 25 Gm/50 Ml Syringe IV PUSH PRN PRN Hypoglycemia Protocol Enoxaparin Sodium 40 mg 06/27/24 09:00 06/30/24 08:47 Enoxaparin 40 Mg/0.4 Ml Syringe SUB-Q 40 mg DAILY KARRIE Administration Folic Acid 1 mg 06/28/24 09:00 06/30/24 08:47 Folic Acid 1 Mg Tablet PO 1 mg DAILY KARRIE Administration Gabapentin 300 mg 06/27/24 21:00 06/30/24 21:04 Gabapentin 300 Mg Capsule PO 300 mg QHS KARRIE Administration Glucose 15 gm 06/26/24 07:22 Glucose Oral Gel 15 Gm Of Glucse In 37.5 Gm Tube PO PRN PRN Hypoglycemia Protocol Dextrose 1,000 mls @ 100 mls/hr 06/26/24 07:22 Dextrose 5% 1,000 Ml IVPB PRN PRN Hypoglycemia Protocol Sodium Chloride 1,000 mls @ 100 mls/hr 06/29/24 08:05 07/01/24 04:55 Normal Saline Iv IV CONT 100 mls/hr .Q10H KARRIE Administration Potassium Chloride 40 meq/ 520 mls @ 130 mls/hr 07/01/24 10:30 Sodium Chloride IVPB 07/01/24 14:29 ONCE ONE Potassium Chloride 100 mls @ 50 mls/hr 07/01/24 14:30 Kcl 20 Meq/Sw 100 Ml IVPB 07/01/24 16:29 ONCE ONE Insulin Aspart 4 - 8 units 06/28/24 09:00 07/01/24 04:55 Insulin Aspart (*Bkc) 100 Units/Ml SUB-Q Not Given Q4HR [facility] Protocol Insulin Glargine 20 units 06/28/24 09:00 06/29/24 08:45 Insulin Glargine (*Bkc) 100 Units/Ml SUB-Q Not Given QAM [facility] Lorazepam 0.5 mg 06/30/24 15:06 06/30/24 21:09 Lorazepam Inj (*Crx) 2 Mg/Ml Vial IV PUSH 0.5 mg Q6H PRN Administration Anxiety Melatonin 5 mg 06/28/24 22:00 06/30/24 21:03 Melatonin 5 Mg Tablet PO 5 mg HS [facility] Administration Metoclopramide HCl 10 mg 06/27/24 18:00 07/01/24 05:47 Metoclopramide Hcl Inj 10 Mg/2 Ml Vial IV PUSH 10 mg Q6HR [facility] Administration Metronidazole 500 mg 07/01/24 09:00 Metronidazole 500 Mg Tablet PO 07/06/24 00:00 BID [facility] Ondansetron HCl 4 mg 06/27/24 11:31 Ondansetron Hcl Odt 4 Mg Tablet PO .every 8 hours as nee [facility] Ondansetron HCl 8 mg 06/30/24 15:06 06/30/24 18:44 Ondansetron Inj 4 Mg/2 Ml Vial IV PUSH 8 mg Q4H PRN Administration Nausea And Vomiting Pantoprazole Sodium 40 mg 06/26/24 09:00 06/30/24 21:02 Pantoprazole Sodium Iv 40 Mg Vial IV PUSH 40 mg Q12HR [facility] Administration Promethazine HCl 25 mg 06/29/24 09:31 06/30/24 21:00 Promethazine Hcl 25 Mg Supp.Rect RECTAL 25 mg Q4H PRN Administration Nausea And Vomiting Sucralfate 1,000 mg 06/29/24 11:30 07/01/24 05:47 Sucralfate Susp 100 Mg/Ml 10 Ml Udc PO 1,000 mg ACHS [facility] Administration Thiamine HCl 100 mg 06/28/24 09:00 06/30/24 08:47 Thiamine Hcl 100 Mg Tablet PO 100 mg DAILY [facility] Administration Vitamin D 2,000 units 06/28/24 09:00 06/30/24 08:47 Cholecalciferol 1,000 Units Tablet PO 2,000 units DAILY KARRIE Administration Radiology Results: ITS Impressions Chest X-Ray 06/26/24 17:50 IMPRESSION: Highly suggestive focal pneumonia in the left lower lobe. Follow-up to resolution is advised to exclude a mass. Abdomen X-Ray 06/27/24 14:03 IMPRESSION: NG tube in stomach Chest/Abdomen/Pelvis CT 06/27/24 19:31 IMPRESSION: Circumferential nonspecific soft tissue thickening of the distal esophagus; this might be due to esophagitis Approximately 3 x 4 cm left ovarian cystic lesion; consider pelvic ultrasound Normal appendix Pelvis Ultrasound 06/29/24 15:33 IMPRESSION: 1. 5.8 cm hemorrhagic cyst in left ovary. Ultrasound is recommended in 2-3 months. Labs Labs: Laboratory Results - last 24 hr 06/30/24 06/30/24 06/30/24 04:57 12:21 16:51 WBC RBC Hgb Hct MCV MCH MCHC RDW Plt Count MPV Sodium Potassium Chloride Carbon Dioxide Anion Gap BUN Creatinine Estim Creat Clear Calc Estimated GFR Glucose POC Capillary Glucose 223 H 244 H 209 H Calcium Magnesium Total Bilirubin AST ALT Alkaline Phosphatase Total Protein Albumin POC Urine HCG, Qual 06/30/24 07/01/24 07/01/24 20:24 00:13 04:31 WBC RBC Hgb Hct MCV MCH MCHC RDW Plt Count MPV Sodium Potassium Chloride Carbon Dioxide Anion Gap BUN Creatinine Estim Creat Clear Calc Estimated GFR Glucose POC Capillary Glucose 196 H 214 H 186 H Calcium Magnesium Total Bilirubin AST ALT Alkaline Phosphatase Total Protein Albumin POC Urine HCG, Qual 07/01/24 07/01/24 07/01/24 04:54 07:54 08:00 WBC 6.1 RBC 3.81 L Hgb 10.4 L Hct 31.5 L MCV 82.7 MCH 27.3 MCHC 33.0 RDW 13.1 Plt Count 228 MPV 9.9 Sodium 133 L Potassium 2.9 L Chloride 100 Carbon Dioxide 21 L Anion Gap 12 BUN 10 Creatinine 0.70 Estim Creat Clear Calc 93 Estimated GFR > 60 Glucose 196 H POC Capillary Glucose 242 H Calcium 7.7 L Magnesium 1.5 L Total Bilirubin 1.1 AST 16 ALT 8 Alkaline Phosphatase 47 Total Protein 6.0 L Albumin 3.2 L POC Urine HCG, Qual Negative 07/01/24 09:08 WBC RBC Hgb Hct MCV MCH MCHC RDW Plt Count MPV Sodium Potassium Chloride Carbon Dioxide Anion Gap BUN Creatinine Estim Creat Clear Calc Estimated GFR Glucose POC Capillary Glucose 280 H Calcium Magnesium Total Bilirubin AST ALT Alkaline Phosphatase Total Protein Albumin POC Urine HCG, Qual Hospitalist MIPS Advance Care Plan I have confirmed that the patient's Advanced Care Plan is present, code status is documented, or surrogate decision maker is listed in patient medical record.: Yes Medication Reconciliation I have utilized all available resources to obtain, update and review the patients current medications (includes all prescriptions, OTC, herbals, cannabis, and nutritional supplements).: Yes
[2024-07-01] MEDS: FOLIC ACID 1 MG TABLET PO (10:39)
[2024-07-01] MEDS: THIAMINE HCL 100 MG TABLET PO (10:39)
[2024-07-01] MEDS: PANTOPRAZOLE SODIUM IV 40 MG VIAL IV PUSH (10:40)
[2024-07-01] MEDS: CHOLECALCIFEROL 1,000 UNITS TABLET 2000 UNITS PO (10:40)
[2024-07-01] MEDS: POTASSIUM CHLORIDE INJ 40 MEQ in SODIUM CHLORIDE 0.9% IV 500 ML 130 MEQ IVPB (10:40)
[2024-07-01] MEDS: metroNIDAZOLE 500 MG TABLET PO ×2 (10:40→17:32)
[2024-07-01 11:59] LABS: Glucose Point of Care 357 mg/dl (65-105)
[2024-07-01] MEDS: KCL 20 MEQ/SW 100 ML 50 MEQ IVPB (15:51)
[2024-07-01 16:44] LABS: Glucose Point of Care 130 mg/dl (65-105)
--- NOTE | 2024-07-01 16:56 | PM.DS ---
DS: Admitting Diagnosis Discharge Date 07/01/2024 Admitting Diagnosis Vomiting DS: Discharge Diagnosis Discharge Diagnosis (1) DKA (diabetic ketoacidoses): Code(s): E11.10 - Type 2 diabetes mellitus with ketoacidosis without coma Status: Acute Assessment and Plan: Anion gap has closed. Will discontinue IV fluids and insulin infusion now on suq insulin regimen lantus decreased to 10units as patient is not eating contineu SSI with accuhceks on clear liquid diet for now advance as tolerated (2) Esophagitis: Code(s): K20.90 - Esophagitis, unspecified without bleeding Status: Acute (3) Gastroparesis: Code(s): K31.84 - Gastroparesis Status: Acute Assessment and Plan: Continue Reglan (4) Nausea and vomiting: Qualifiers: Vomiting type: bilious vomiting Qualified Code(s): R11.14 - Bilious vomiting Code(s): R11.2 - Nausea with vomiting, unspecified Status: Acute Assessment and Plan: Patient has persistent nausea vomiting despite Zofran Compazine and Reglan Patient removed NG tube that was placed in the ICU CT AP reviewed Continue Promethazine 25mg suppository q4 hours per GI Continue PRN Zofran clear liquid diet as tolerated Gi following (5) Pneumonia: Code(s): J18.9 - Pneumonia, unspecified organism Status: Acute Assessment and Plan: ruled out CT Chest adn AP Showed no pneumonia antibiotics discontinued (6) Cannabinoid hyperemesis syndrome: Code(s): R11.2 - Nausea with vomiting, unspecified; F12.90 - Cannabis use, unspecified, uncomplicated Status: Acute Plan Esophagitis EGD on 07/01 : Improved gastritis from the previous EGD. Refer EGD report for full details. EGD on 04/23 : Ulcerative esophagitis and advised to repeat EGD in 4 months to assess healing. Increase the dose of Zofran from 4 mg to 8 mg Consider GI cocktail Carafate 1 g p.o. q.h.s. PPI CT AP showed distal circumferential non specific soft tissue thickening of the distal esophagus Contine PPI, Carafate Possible EGD GI following, appreciate input Cannabinoid hyperemesis syndrome Chronic marijuana smoker Continue IV hydration Continue the current treatment ppi Ativan p.r.n. for anxiety Stop using marijuana Consider drug rehab if necessary LEft ovarian cyst CT AP showed let ovarian cyst US pelvis ordered further plans per US BV Vaginal swab performed on 06/24 resulted Atopobium Vaginae . Started Metronidazole 500 mg PO BID x 7 days. DVT prophylaxis -Sq Lovenox Nutrition -clear liquid diet. Advance as tolerated. Code Status - Full Code DS: Summary Hospital Course Hospital Course: Tara Hinkle is a 39 year old female with past medical history type 1 diabetes and gastroparesis who presented to ER with chief complaint of nausea vomiting after she ran out of her insulin in her insulin pump.. She states that yesterday while sleeping her insulin pump ran out of insulin and she did not have additional insulin cartridges. Around 3:00 p.m. yesterday she started having nausea vomiting and feeling sick. She feels weak and tired. Denies any hematemesis. No abdominal pain fever cough shortness of breath dysuria hematuria hematochezia melena abdominal pain chest pain. All the systems were reviewed and were negative. She does complain vaginal discharge which was evaluated in [facility] on 06/24 and testing for infection was done. In ER patient was found to be in DKA and was given IV fluids and started IV insulin infusion and IV fluids and admitted to ICU for further evaluation management. 06/26 patient had anion gap or closed and transferred to IMU. On 06/27 Patient was transferred back to ICU since patient's blood sugar remained elevated and her BMP showed recurrence of acidosis and increased anion gap. Patient was transferred back to ICU. Patient states she continues to have nausea vomiting and unable to keep food down. She also complains of pain in the back of her chest on the left side. He states the pain is worse with dry heaving and vomiting. Chest x-ray yesterday was read as possible pneumonia and patient was started on Levaquin. Patient has been afebrile throughout. Patient eventually DKA resolved but had persistent nausea vomiting and abdominal. GI was consulted. EGD 04/23/2024 showed reflux esophagitis, grade 3 colon in the mid and distal esophagus, normal stomach and duodenum. Biopsies showed acute esophagitis with ulceration, mild chronic reactive gastritis without intestinal metaplasia, no evidence of H. pylori. CT scan showed circumferential nonspecific soft tissue thickening of the distal esophagus which may be related to esophagitis. On admission blood sugar 307 and today 226. Unclear when patient was initially diagnosed with gastroparesis. She states that she has never had a gastric emptying study. Patient presented to the ER with similar complaints of nausea and vomiting. Patient states she has been having nausea and vomiting and decreased appetite since . She denies any hematemesis or coffee-ground emesis. She states that she has been taking her pantoprazole 40 mg on a daily basis but has not been taking Reglan regularly at home. Patient smokes 1 pack per day and uses marijuana daily. Since admission the patient has been on PPI, Reglan, and Zofran with persistent symptoms. DDX: Reflux esophagitis vs peptic ulcer disease vs gastroparesis vs cannabinoid induced hyperemesis. Today 07/01 EGD was repeated which shows esophagitis improved from the previous EGD. Advised to continue PPI and Carafate. Patient needs a follow-up with the GI. Of note patient was diagnosed with bacterial vaginosis advised to continue metronidazole 500 mg p.o. b.i.d. for 7 days. Status at Discharge Cognitive/behavioral status at discharge: Stable Time Spent with Patient Time attestation: Total time spent providing and/or coordinating discharge services: 45 minute Exam Narrative: General: Pt is alert awake and in NAD Lungs/Chest: Trachea central Clear BS B/L, No crackles or wheezing. Cardiac: RRR. Normal S1 S2. No murmurs Circulation: Pedal pulses are intact and symmetrical. Abdomen: Normal bowel sounds.. Soft. NT. ND. Extremities: No clubbing, cyanosis or edema. Warm : Christian in place Neurologic: Follows commands. Moves all 4 extremities PERRL Skin: No Rash DS: Data Data Completed and Pending Pending studies at discharge: Pending at discharge 07/01/24 08:45 Surgical [PTH] Routine Labs on day of discharge: Labs from last 24 hours 07/01/24 07/01/24 07/01/24 16:40 11:38 09:08 WBC RBC Hgb Hct MCV MCH MCHC RDW Plt Count MPV Sodium Potassium Chloride Carbon Dioxide Anion Gap BUN Creatinine Estim Creat Clear Calc Estimated GFR Glucose POC Capillary Glucose 130 H 357 H 280 H Calcium Magnesium Total Bilirubin AST ALT Alkaline Phosphatase Total Protein Albumin POC Urine HCG, Qual 07/01/24 07/01/24 07/01/24 08:00 07:54 04:54 WBC 6.1 RBC 3.81 L Hgb 10.4 L Hct 31.5 L MCV 82.7 MCH 27.3 MCHC 33.0 RDW 13.1 Plt Count 228 MPV 9.9 Sodium 133 L Potassium 2.9 L Chloride 100 Carbon Dioxide 21 L Anion Gap 12 BUN 10 Creatinine 0.70 Estim Creat Clear Calc 93 Estimated GFR > 60 Glucose 196 H POC Capillary Glucose 242 H Calcium 7.7 L Magnesium 1.5 L Total Bilirubin 1.1 AST 16 ALT 8 Alkaline Phosphatase 47 Total Protein 6.0 L Albumin 3.2 L POC Urine HCG, Qual Negative 07/01/24 07/01/24 06/30/24 04:31 00:13 20:24 WBC RBC Hgb Hct MCV MCH MCHC RDW Plt Count MPV Sodium Potassium Chloride Carbon Dioxide Anion Gap BUN Creatinine Estim Creat Clear Calc Estimated GFR Glucose POC Capillary Glucose 186 H 214 H 196 H Calcium Magnesium Total Bilirubin AST ALT Alkaline Phosphatase Total Protein Albumin POC Urine HCG, Qual 06/30/24 04:57 WBC RBC Hgb Hct MCV MCH MCHC RDW Plt Count MPV Sodium Potassium Chloride Carbon Dioxide Anion Gap BUN Creatinine Estim Creat Clear Calc Estimated GFR Glucose POC Capillary Glucose 223 H Calcium Magnesium Total Bilirubin AST ALT Alkaline Phosphatase Total Protein Albumin POC Urine HCG, Qual Preliminary micro results at discharge 06/27/24 08:04 Blood Culture - Preliminary Blood 06/27/24 07:59 Blood Culture - Preliminary Blood Imaging Radiologist's impression: ITS Impressions Chest X-Ray 06/26/24 17:50 IMPRESSION: Highly suggestive focal pneumonia in the left lower lobe. Follow-up to resolution is advised to exclude a mass. Abdomen X-Ray 06/27/24 14:03 IMPRESSION: NG tube in stomach Chest/Abdomen/Pelvis CT 06/27/24 19:31 IMPRESSION: Circumferential nonspecific soft tissue thickening of the distal esophagus; this might be due to esophagitis Approximately 3 x 4 cm left ovarian cystic lesion; consider pelvic ultrasound Normal appendix Pelvis Ultrasound 06/29/24 15:33 IMPRESSION: 1. 5.8 cm hemorrhagic cyst in left ovary. Ultrasound is recommended in 2-3 months. Discharge Plan Discharge Attending physician on discharge: Robinsno Barrios Consulting providers: Nam Carmona; Davy Chris; Robin Dc Discharging Clinician: Robinson Barrios Anticipated Discharge Date/Time: 07/01/24 16:53 Patient Disposition: Home, Self-Care Activity: as tolerated Diet: as tolerated Discharge Instructions: Underwent upper endoscopy with biopsy. Follow-up with the GI for the biopsy results. Continue omeprazole 20 mg 2 times a day, also Carafate. Stop smoking marijuana. Patient Instructions: Antibiotic Form, Basic Carbohydrate Counting (DC) Stand Alone Forms: General Discharge Information Follow-up/Referrals: Nam Carmona MD [Physician] - 1 Week Robin Dc MD [Physician] - 1 Week Discharge Medications: New pantoprazole 40 mg tablet,delayed release (DR/EC) 40 mg PO Q12H Qty: 180 3RF sucralfate 100 mg/mL suspension 1 g PO Q6H Qty: 1000 0RF Continued thiamine HCl (vitamin B1) 100 mg tablet 100 mg PO DAILY folic acid 1 mg tablet 1 mg PO DAILY Qty: 90 0RF insulin lispro 100 unit/mL solution See Rx Instructions subcut PRN MDD 50 Qty: 60 0RF Rx Instructions: for insulin pump Gvoke HypoPen 2-Pack 1 mg/0.2 mL auto-injector 1 mg subcut ONCE Qty: 0.4 0RF Rx Instructions: as a single dose; may repeat once after 15 minutes if no response glucose 4 gram tablet,chewable 16 g PO Q15M PRN (Reason: hypoglycemia) Qty: 360 0RF Rx Instructions: until symptoms of low blood sugar are controlled lisinopril 2.5 mg tablet 2.5 mg PO DAILY Qty: 90 0RF ondansetron 4 mg tablet,disintegrating 4 mg PO .every 8 hours as nee Qty: 20 0RF cholecalciferol (vitamin D3) 50 mcg (2,000 unit) capsule 50 mcg PO DAILY Qty: 90 0RF gabapentin 300 mg capsule 300 mg PO QHS Qty: 90 1RF metronidazole 500 mg tablet 500 mg PO Q12H Qty: 14 0RF No Action (DME) Omnipod 5 G6-G7 Intro Kt(Gen5) Cartridge See Rx Instructions .Route Qty: 1 0RF Rx Instructions: As directed (DME) Omnipod 5 G6-G7 Pods (Gen 5) Cartridge See Rx Instructions .Route Qty: 30 0RF Rx Instructions: Change every 3 days (DME) Dexcom G6 Sensor Device See Rx Instructions .ROUTE .MEDSUPPLY Qty: 9 2RF Rx Instructions: every 10 days (DME) insulin pump cart,auto,BT,G6/7 Cartridge See Rx Instructions .Route Qty: 45 4RF Rx Instructions: Change every 3 days (DME) Omnipod 5 G6-G7 Intro Kt(Gen5) Cartridge See Rx Instructions .Route Qty: 1 0RF Rx Instructions: As directed Date of admission: 06/27/24 11:43 Primary Care Provider: PHYSICIAN,RESIDENTIAL SUBCONTRACTOR Admitting Provider: Charlene Woosd Attending physician on admission: Jaya Peña Condition: Stable
[2024-07-01 18:21] LABS: Potassium 4.2 mmol/L (3.4-5.0)
== END 2024-07-01 20:10 | disposition home or self-care (01) | DRG 420 ==
LOC: ANHED 06:07 → ANHICU 06:38 → ANH3MEDSUR 19:03 → ANHICU 06-27 11:22 → ANH2MED 06-28 12:55
PROVIDERS: Anesthesiology; Internal Medicine; Internal Medicine Gastroenterology; Admitting Provider Internal Medicine; Emergency Provider Emergency Medicine; Visit Provider General Practice
PROC: 0DJ08ZZ Inspection of Upper Intestinal Tract, Via Natural or Artificial Opening Endoscopic (ICD-10-PCS; CPT 43235; principal; 2024-07-01 09:00)
DX: E10.10 Type 1 diabetes mellitus with ketoacidosis without coma (principal); E10.43 Type 1 diabetes mellitus with diabetic autonomic (poly)neuropathy; E86.0 Dehydration; E87.6 Hypokalemia; E83.42 Hypomagnesemia; E87.1 Hypo-osmolality and hyponatremia; F17.210 Nicotine dependence, cigarettes, uncomplicated; K21.00 Gastro-esophageal reflux disease with esophagitis, without bleeding; K31.84 Gastroparesis; N83.202 Unspecified ovarian cyst, left side; Z96.41 Presence of insulin pump (external) (internal); Z79.85 Long-term (current) use of injectable non-insulin antidiabetic drugs
CPT/HCPCS: 36415; 71046; 71250; 74176; 76856; 80048; 80053; 81003; 82010; 82948; 83036; 83605; 83690; 83735; 84100; 84132; 84145; 85025; 85027; 87040; 87641; 88305; 93005; 96360; 96361; 96366; 96374; 96375; 99285; A9270; G0378; G0379; J1630; J1650; J1815; J1956; J2003; J2060; J2405; J2470; J2550; J2704; J2765; J3475; J3480; J7030; J7040; J7060; J7120

== ENCOUNTER 2024-07-30 04:51 | Emergency (ER) | payer OTHER, SELFPAY ==
[2024-07-30] VITALS (13 sets, daily range): BP systolic 111–164; BP diastolic 64–95; PULSE 98–112; RESP 12–30; TEMP 36.7; O2SAT 97–100
--- NOTE | ~2024-07-30 | CT_ITS ---
CT of the Abdomen and Pelvis: Indication: Abdominal pain Technique: 2.5 mm axial scans were obtained through the abdomen and pelvis following intravenous adm inistration of 100 cc of Omnipaque 350. Dose reduction technique was used on this scan by utilizing a utomated exposure control and iterative reconstruction technique. The dose-length product (DLP) was 3 67.81 mGy-cm. COMPARISON: 06/27/2024 Findings: Scans through the lung bases are unremarkable. The liver, spleen, pancreas, gallbladder, adrenals and kidneys are within normal limits. No evidence of aortic aneurysm. No lymphadenopathy. No bowel obstruction or bowel wall thickening. There is no evidence to suggest acute appendicitis. Images through the pelvis were performed. Urinary bladder unremarkable. No pelvic mass seen. No ascit es. Impression: No significant abnormalities seen. Reviewed, dictated and finalized at [facility]. [employer] Impression: No significant abnormalities seen.
--- NOTE | 2024-07-30 05:02 | PC.NURSE ---
Glucose 207
[2024-07-30 05:04] LABS: Glucose Point of Care 247 mg/dl (65-105)
[2024-07-30 05:13] LABS: Basophils Percent Auto 0.3 % (0.2-1.2); Hematocrit 37.9 % (37.0-47.0); Hemoglobin 12.1 g/dL (12.0-15.0); Immature Granulocyte Absolute 0.05 K/mm3 (0.00-0.031); Immature Granulocyte Percent A 0.4 % (0-0.5); Lymphocytes Absolute Auto 0.86 K/mm3 (0.9-3.2); Lymphocytes Percent Auto 7.4 % (18.3-44.2); Mean Corpuscular HGB Conc 31.9 g/dl (32-36); Mean Corpuscular Hemoglobin 26.2 pg (26-34); Mean Corpuscular Volume 82.2 fl (80-100); Monocytes Absolute Auto 0.2 K/mm3 (0.1-0.6); Monocytes Percent Auto 1.8 % (2.6-8.5); Neutrophils Absolute Auto 10.6 K/mm3 (1.3-6.7); Neutrophils Percent Auto 90.1 % (45.5-73.1); Platelet Count Result 376 k/mm3 (150-375); Red Blood Count 4.61 M/mm3 (4.2-5.4); Red Cell Distribution Width 14.2 % (11.5-14.5); White Blood Count 11.7 K/mm3 (4.5-10.0)
[2024-07-30] MEDS: SODIUM CHLORIDE 0.9% IV 1,000 ML 999 ML IV CONT ×2 (05:56→05:57)
[2024-07-30] MEDS: METOCLOPRAMIDE HCL INJ 10 MG/2 ML VIAL IV PUSH (05:56)
--- NOTE | 2024-07-30 05:56 | ED_ITS ---
HPI - General Adult General Chief complaint: Nausea/Vomiting/Diarrhea <Abdiel Ga MD - Last Filed: 07/30/24 05:57> Stated complaint: N/V <Abdiel Ga MD - Last Filed: 07/30/24 05:57> Time Seen by Provider: 07/30/24 05:43 <Abdiel Ga MD - Last Filed: 07/30/24 05:57> History of Present Illness HPI narrative: Patient is a 39-year-old female who presents emergency department chief complaint of nausea and vomiting patient reports that she is having abdominal pain with this as well the patient has prior history of diabetes and has had issues with chronic abdominal pain and gastroparesis patient reports that she was seen at [facility] this evening they gave her some Zofran and sent her home the patient states that she continued to have pain and noticed that her blood sugars have started to trend up. Patient does have history of type 1 diabetes and has had DKA before in the past <Abdiel Ga MD - Last Filed: 07/30/24 05:57> Related Data Home medications: Home Medications Medication Instructions Recorded Confirmed mecobalamin (vitamin B12) 500 mcg 500 mcg PO DAILY 07/15/24 07/15/24 chewable tablet metoclopramide HCl 10 mg tablet 10 mg PO Q6H 07/15/24 07/15/24 multivitamin 1 tablet PO DAILY 07/15/24 07/15/24 potassium gluconate 2 mEq tablet 2 meq PO DAILY 07/15/24 07/15/24 <Abdiel Ga MD - Last Filed: 07/30/24 05:57> Allergies/adverse reactions: Allergies Allergy/AdvReac Type Severity Reaction Status Date / Time No Known Allergies Allergy Verified 07/15/24 09:15 <Abdiel Ga MD - Last Filed: 07/30/24 05:57> Review of Systems Review of Systems: A 10 system review of systems was completed on the patient and is negative except for what is stated in the HPI. Nursing and ancillary documentation was reviewed. <Abdiel Ga MD - Last Filed: 07/30/24 05:57> [facility] Past Medical History Medical History: Medical History Diabetic neuropathy DKA (diabetic ketoacidoses) multiple Elevated liver enzymes Gastroparesis Hyperlipidemia Type 1 diabetes mellitus Diagnosed at the age of 7. Hemoglobin A1c was 10.8% on 08/09/2020. <Abdiel Ga MD - Last Filed: 07/30/24 05:57> Surgical History Surgical History: Surgical History History of 3 sections History of gynecological procedure 04/29/2020- mirena iud insertion - 10/23/2021 mirena iud removal -nm <Abdiel Ga MD - Last Filed: 07/30/24 05:57> Family History Family History: Family History Grandparent Breast cancer Father Diabetes mellitus Other Hypertension <Abdiel Ga MD - Last Filed: 07/30/24 05:57> Social History Social History: Social History Smoking packs per day: 1 Smoking cigarettes per day: 20.0 Years smoked: 25 Smoking pack-years: 25.00 Smoking status: Current every day smoker Tobacco type: cigarettes Second hand tobacco smoke exposure: No Alcohol intake: former Drinks per week: 20 Alcohol use details: occasional Substance use: current Substance use type: marijuana Last use: 08/12/23 Do You Feel Safe in your Home?: Yes Lack of Transportation: No Lack of Food: Never True Current Housing: I Have Housing Concerned About Future Housing: No Difficulty Paying Gas/Electric Bills: No Difficulty Paying for Meds: No Currently Unemployed: No Education: High School Diploma/GED Difficulty w/ Childcare or Family Care: No Living arrangements: with family Occupation/Education: unemployed Gender identity (if verbalized by the patient): Female Sexual Orientation (if Verbalized by the Patient): Straight or Heterosexual Spiritual care concerns: No <Abdiel Ga MD - Last Filed: 07/30/24 05:57> Exam Narrative: GENERAL: Well-appearing, well-nourished, and in no acute distress. HEAD: Normocephalic, atraumatic. EYES: PERRLA and EOMI. ENT: Nares clear, no rhinorrhea or epistaxis. Mucous membranes moist. NECK: Supple. CHEST: Clear to auscultation. No respiratory distress. HEART: Regular rate and rhythm. No murmur heard. Normal peripheral pulses. ABDOMEN: Soft, diffusely tender to palpation, nondistended, normal active bowel sounds. EXTREMITIES: Normal range of motion. No edema. SKIN: Warm, dry, no rash. NEURO: No focal deficits. Alert and oriented x3. PSYCH: Normal mood and affect. <Abdiel Ga MD - Last Filed: 07/30/24 05:57> Course Reevaluation(s) Reevaluation #1: Patient care was signed out to me by the overnight physician imaging pending. Patient is afebrile but does have a leukocytosis of 11.7 and hemoglobin of 12.1, patient has ABG that showed and normal pH, patient's initial BMP did have an elevated anion gap patient was treated with 2 L of a fluids and IV insulin and repeat BMP shows anion gap is closed and patient's blood sugars down to 163. Patient has no evidence of a urinary tract infection. CT abdomen pelvis showed no acute abnormalities. Patient was concerned about her having recurrent nausea and vomiting and patient was advised to follow a clear liquid diet. Patient states she does have Reglan and Zofran at home. Patient does have follow-up with GI. Patient also was educated on cannabinoid hyperemesis syndrome. Patient states she is attempting to decrease her marijuana intake. <Franklyn Rm MD - Last Filed: 07/30/24 19:01> Vital Signs Vital signs: Vital Signs Temperature 98.1 F 07/30/24 04:52 Pulse Rate 109 H 07/30/24 04:52 Respiratory Rate 15 07/30/24 04:52 Blood Pressure 156/90 H 07/30/24 04:52 Pulse Oximetry 97 07/30/24 04:52 Oxygen Delivery Room Air 07/30/24 04:52 Temperature 98.1 F 07/30/24 04:52 Pulse Rate 103 H 07/30/24 10:00 Respiratory Rate 19 07/30/24 10:00 Blood Pressure 111/64 07/30/24 10:00 Pulse Oximetry 99 07/30/24 10:00 Oxygen Delivery Room Air 07/30/24 04:52 <Abdiel Ga MD - Last Filed: 07/30/24 05:57> Vital Signs Temperature 98.1 F 07/30/24 04:52 Pulse Rate 109 H 07/30/24 04:52 Respiratory Rate 15 07/30/24 04:52 Blood Pressure 156/90 H 07/30/24 04:52 Pulse Oximetry 97 07/30/24 04:52 Oxygen Delivery Room Air 07/30/24 04:52 Temperature 98.1 F 07/30/24 04:52 Pulse Rate 103 H 07/30/24 10:00 Respiratory Rate 19 07/30/24 10:00 Blood Pressure 111/64 07/30/24 10:00 Pulse Oximetry 99 07/30/24 10:00 Oxygen Delivery Room Air 07/30/24 04:52 <Franklyn Rm MD - Last Filed: 07/30/24 19:01> Medical Decision Making Vital Signs Vital Signs: Vital Signs Temperature 98.1 F 07/30/24 04:52 Pulse Rate 109 H 07/30/24 04:52 Respiratory Rate 15 07/30/24 04:52 Blood Pressure 156/90 H 07/30/24 04:52 Pulse Oximetry 97 07/30/24 04:52 Oxygen Delivery Room Air 07/30/24 04:52 Temperature 98.1 F 07/30/24 04:52 Pulse Rate 103 H 07/30/24 10:00 Respiratory Rate 19 07/30/24 10:00 Blood Pressure 111/64 07/30/24 10:00 Pulse Oximetry 99 07/30/24 10:00 Oxygen Delivery Room Air 07/30/24 04:52 <Abdiel Ga MD - Last Filed: 07/30/24 05:57> Vital Signs Temperature 98.1 F 07/30/24 04:52 Pulse Rate 109 H 07/30/24 04:52 Respiratory Rate 15 07/30/24 04:52 Blood Pressure 156/90 H 07/30/24 04:52 Pulse Oximetry 97 07/30/24 04:52 Oxygen Delivery Room Air 07/30/24 04:52 Temperature 98.1 F 07/30/24 04:52 Pulse Rate 103 H 07/30/24 10:00 Respiratory Rate 19 07/30/24 10:00 Blood Pressure 111/64 07/30/24 10:00 Pulse Oximetry 99 07/30/24 10:00 Oxygen Delivery Room Air 07/30/24 04:52 <Franklyn Rm MD - Last Filed: 07/30/24 19:01> Lab Data Result diagrams: 07/30/24 05:03 07/30/24 10:15 <Abdiel Ga MD - Last Filed: 07/30/24 05:57> Labs: Lab Results 07/30/24 07/30/24 07/30/24 Range/Units 05:02 05:03 06:53 WBC 11.7 H (4.5-10.0) K/mm3 RBC 4.61 (4.2-5.4) M/mm3 Hgb 12.1 (12.0-15.0) g/dL Hct 37.9 (37.0-47.0) % MCV 82.2 (80-100) fl MCH 26.2 (26-34) pg MCHC 31.9 L (32-36) g/dl RDW 14.2 (11.5-14.5) % Plt Count 376 H D (150-375) k/mm3 MPV 10.0 (7.4-10.4) fl Immature Gran % (Auto) 0.4 (0-0.5) % Neut % (Auto) 90.1 H (45.5-73.1) % Lymph % (Auto) 7.4 L (18.3-44.2) % [place] % (Auto) 1.8 L (2.6-8.5) % Eos % (Auto) 0.0 (0-4.4) % Baso % (Auto) 0.3 (0.2-1.2) % Lymph # (Auto) 0.86 L (0.9-3.2) K/mm3 [place] # (Auto) 0.2 (0.1-0.6) K/mm3 Eos # (Auto) 0.0 (0-0.3) K/mm3 Baso # (Auto) 0.0 (0.0-0.1) K/mm3 Abs Immat Gran (auto) 0.05 H (0.00-0.031) K/mm3 Absolute Neuts (auto) 10.6 H (1.3-6.7) K/mm3 Absolute Nucleated RBC 0.000 (0.0-0.012) K/mm3 Nucleated RBC % 0.0 (0.0-0.2) % Sodium 137 (137-145) mmol/L Potassium 4.0 (3.4-5.0) mmol/L Chloride 103 (98-107) mmol/L Carbon Dioxide 18 L (22-30) mmol/L Anion Gap 16 H (4-12) mmol/L BUN 14 (7-17) mg/dL Creatinine 0.70 (0.7-1.0) mg/dL Estim Creat Clear Calc 93 ml/min Estimated GFR > 60 (59 - ) Glucose 289 H (65-110) mg/dL POC Capillary Glucose 247 H (65-105) mg/dl Calcium 9.9 (8.4-10.2) mg/dL Magnesium 1.4 L (1.6-2.3) mg/dL Total Bilirubin 0.9 (0.2-1.3) mg/dL AST 25 (14-36) U/L ALT 18 (6-35) U/L Alkaline Phosphatase 68 (38-126) U/L Total Protein 8.0 (6.3-8.2) g/dL Albumin 5.0 (3.5-5.1) g/dL Lipase 40 (23-300) U/L Beta-Hydroxybutyrate/Acetoacetate 2.79 H (0.02-0.27) mmol/L Urine Color Yellow (Yellow) Urine Appearance Clear (Clear) Urine pH 5.5 (5.0-9.0) Ur Specific [place] 1.021 (1.001-1.035) Urine Protein 2+ H (Negative) mg/dL Urine Glucose (UA) 3+ H (Negative) mg/dL Urine Ketones 3+ H (Negative) mg/dL Ur Blood (Man) 2+ H (Negative) Urine Nitrate Negative (Negative) Urine Bilirubin Negative (Negative) Urine Urobilinogen 0.2 (<2.0) mg/dL Leukocyte Esterase Rfl Negative (Negative) CHRISTIANA/UL Urine RBC 6-10 H (0-2) /hpf Urine WBC 0-5 (0-3) /hpf Ur Squamous Epith Cells None seen (Few) /hpf Urine Bacteria None seen /hpf Urine Casts 0-2 POC Urine HCG, Qual Negative (Negative) 07/30/24 07/30/24 07/30/24 Range/Units 08:22 09:31 10:15 WBC (4.5-10.0) K/mm3 RBC (4.2-5.4) M/mm3 Hgb (12.0-15.0) g/dL Hct (37.0-47.0) % MCV (80-100) fl MCH (26-34) pg MCHC (32-36) g/dl RDW (11.5-14.5) % Plt Count (150-375) k/mm3 MPV (7.4-10.4) fl Immature Gran % (Auto) (0-0.5) % Neut % (Auto) (45.5-73.1) % Lymph % (Auto) (18.3-44.2) % [place] % (Auto) (2.6-8.5) % Eos % (Auto) (0-4.4) % Baso % (Auto) (0.2-1.2) % Lymph # (Auto) (0.9-3.2) K/mm3 [place] # (Auto) (0.1-0.6) K/mm3 Eos # (Auto) (0-0.3) K/mm3 Baso # (Auto) (0.0-0.1) K/mm3 Abs Immat Gran (auto) (0.00-0.031) K/mm3 Absolute Neuts (auto) (1.3-6.7) K/mm3 Absolute Nucleated RBC (0.0-0.012) K/mm3 Nucleated RBC % (0.0-0.2) % Sodium 137 (137-145) mmol/L Potassium 3.7 (3.4-5.0) mmol/L Chloride 107 (98-107) mmol/L Carbon Dioxide 19 L (22-30) mmol/L Anion Gap 11 (4-12) mmol/L BUN 11 (7-17) mg/dL Creatinine 0.60 L (0.7-1.0) mg/dL Estim Creat Clear Calc 107 ml/min Estimated GFR > 60 (59 - ) Glucose 163 H (65-110) mg/dL POC Capillary Glucose 121 H 148 H (65-105) mg/dl Calcium 8.7 (8.4-10.2) mg/dL Magnesium (1.6-2.3) mg/dL Total Bilirubin (0.2-1.3) mg/dL AST (14-36) U/L ALT (6-35) U/L Alkaline Phosphatase (38-126) U/L Total Protein (6.3-8.2) g/dL Albumin (3.5-5.1) g/dL Lipase (23-300) U/L Beta-Hydroxybutyrate/Acetoacetate (0.02-0.27) mmol/L Urine Color (Yellow) Urine Appearance (Clear) Urine pH (5.0-9.0) Ur Specific [place] (1.001-1.035) Urine Protein (Negative) mg/dL Urine Glucose (UA) (Negative) mg/dL Urine Ketones (Negative) mg/dL Ur Blood (Man) (Negative) Urine Nitrate (Negative) Urine Bilirubin (Negative) Urine Urobilinogen (<2.0) mg/dL Leukocyte Esterase Rfl (Negative) CHRISTIANA/UL Urine RBC (0-2) /hpf Urine WBC (0-3) /hpf Ur Squamous Epith Cells (Few) /hpf Urine Bacteria /hpf Urine Casts POC Urine HCG, Qual (Negative) <Abdiel Ga MD - Last Filed: 07/30/24 05:57> Lab Results 07/30/24 07/30/24 07/30/24 Range/Units 05:02 05:03 06:53 WBC 11.7 H (4.5-10.0) K/mm3 RBC 4.61 (4.2-5.4) M/mm3 Hgb 12.1 (12.0-15.0) g/dL Hct 37.9 (37.0-47.0) % MCV 82.2 (80-100) fl MCH 26.2 (26-34) pg MCHC 31.9 L (32-36) g/dl RDW 14.2 (11.5-14.5) % Plt Count 376 H D (150-375) k/mm3 MPV 10.0 (7.4-10.4) fl Immature Gran % (Auto) 0.4 (0-0.5) % Neut % (Auto) 90.1 H (45.5-73.1) % Lymph % (Auto) 7.4 L (18.3-44.2) % [place] % (Auto) 1.8 L (2.6-8.5) % Eos % (Auto) 0.0 (0-4.4) % Baso % (Auto) 0.3 (0.2-1.2) % Lymph # (Auto) 0.86 L (0.9-3.2) K/mm3 [place] # (Auto) 0.2 (0.1-0.6) K/mm3 Eos # (Auto) 0.0 (0-0.3) K/mm3 Baso # (Auto) 0.0 (0.0-0.1) K/mm3 Abs Immat Gran (auto) 0.05 H (0.00-0.031) K/mm3 Absolute Neuts (auto) 10.6 H (1.3-6.7) K/mm3 Absolute Nucleated RBC 0.000 (0.0-0.012) K/mm3 Nucleated RBC % 0.0 (0.0-0.2) % Sodium 137 (137-145) mmol/L Potassium 4.0 (3.4-5.0) mmol/L Chloride 103 (98-107) mmol/L Carbon Dioxide 18 L (22-30) mmol/L Anion Gap 16 H (4-12) mmol/L BUN 14 (7-17) mg/dL Creatinine 0.70 (0.7-1.0) mg/dL Estim Creat Clear Calc 93 ml/min Estimated GFR > 60 (59 - ) Glucose 289 H (65-110) mg/dL POC Capillary Glucose 247 H (65-105) mg/dl Calcium 9.9 (8.4-10.2) mg/dL Magnesium 1.4 L (1.6-2.3) mg/dL Total Bilirubin 0.9 (0.2-1.3) mg/dL AST 25 (14-36) U/L ALT 18 (6-35) U/L Alkaline Phosphatase 68 (38-126) U/L Total Protein 8.0 (6.3-8.2) g/dL Albumin 5.0 (3.5-5.1) g/dL Lipase 40 (23-300) U/L Beta-Hydroxybutyrate/Acetoacetate 2.79 H (0.02-0.27) mmol/L Urine Color Yellow (Yellow) Urine Appearance Clear (Clear) Urine pH 5.5 (5.0-9.0) Ur Specific [place] 1.021 (1.001-1.035) Urine Protein 2+ H (Negative) mg/dL Urine Glucose (UA) 3+ H (Negative) mg/dL Urine Ketones 3+ H (Negative) mg/dL Ur Blood (Man) 2+ H (Negative) Urine Nitrate Negative (Negative) Urine Bilirubin Negative (Negative) Urine Urobilinogen 0.2 (<2.0) mg/dL Leukocyte Esterase Rfl Negative (Negative) CHRIST[place]NA/UL Urine RBC 6-10 H (0-2) /hpf Urine WBC 0-5 (0-3) /hpf Ur Squamous Epith Cells None seen (Few) /hpf Urine Bacteria None seen /hpf Urine Casts 0-2 POC Urine HCG, Qual Negative (Negative) 07/30/24 07/30/24 07/30/24 Range/Units 08:22 09:31 10:15 WBC (4.5-10.0) K/mm3 RBC (4.2-5.4) M/mm3 Hgb (12.0-15.0) g/dL Hct (37.0-47.0) % MCV (80-100) fl MCH (26-34) pg MCHC (32-36) g/dl RDW (11.5-14.5) % Plt Count (150-375) k/mm3 MPV (7.4-10.4) fl Immature Gran % (Auto) (0-0.5) % Neut % (Auto) (45.5-73.1) % Lymph % (Auto) (18.3-44.2) % [place] % (Auto) (2.6-8.5) % Eos % (Auto) (0-4.4) % Baso % (Auto) (0.2-1.2) % Lymph # (Auto) (0.9-3.2) K/mm3 [place] # (Auto) (0.1-0.6) K/mm3 Eos # (Auto) (0-0.3) K/mm3 Baso # (Auto) (0.0-0.1) K/mm3 Abs Immat Gran (auto) (0.00-0.031) K/mm3 Absolute Neuts (auto) (1.3-6.7) K/mm3 Absolute Nucleated RBC (0.0-0.012) K/mm3 Nucleated RBC % (0.0-0.2) % Sodium 137 (137-145) mmol/L Potassium 3.7 (3.4-5.0) mmol/L Chloride 107 (98-107) mmol/L Carbon Dioxide 19 L (22-30) mmol/L Anion Gap 11 (4-12) mmol/L BUN 11 (7-17) mg/dL Creatinine 0.60 L (0.7-1.0) mg/dL Estim Creat Clear Calc 107 ml/min Estimated GFR > 60 (59 - ) Glucose 163 H (65-110) mg/dL POC Capillary Glucose 121 H 148 H (65-105) mg/dl Calcium 8.7 (8.4-10.2) mg/dL Magnesium (1.6-2.3) mg/dL Total Bilirubin (0.2-1.3) mg/dL AST (14-36) U/L ALT (6-35) U/L Alkaline Phosphatase (38-126) U/L Total Protein (6.3-8.2) g/dL Albumin (3.5-5.1) g/dL Lipase (23-300) U/L Beta-Hydroxybutyrate/Acetoacetate (0.02-0.27) mmol/L Urine Color (Yellow) Urine Appearance (Clear) Urine pH (5.0-9.0) Ur Specific [place] (1.001-1.035) Urine Protein (Negative) mg/dL Urine Glucose (UA) (Negative) mg/dL Urine Ketones (Negative) mg/dL Ur Blood (Man) (Negative) Urine Nitrate (Negative) Urine Bilirubin (Negative) Urine Urobilinogen (<2.0) mg/dL Leukocyte Esterase Rfl (Negative) CHRIST[place]NA/UL Urine RBC (0-2) /hpf Urine WBC (0-3) /hpf Ur Squamous Epith Cells (Few) /hpf Urine Bacteria /hpf Urine Casts POC Urine HCG, Qual (Negative) <Franklyn Rm MD - Last Filed: 07/30/24 19:01> ABG Data ABG results: 07/30/24 06:56 Puncture Site Right radial ABG pH 7.382 ABG pCO2 29.5 L ABG pO2 92.5 ABG PO2/FiO2 Ratio 4.40 ABG HCO3 17.1 L ABG O2 Saturation 97.1 ABG O2 Content 15.8 L ABG Base Excess -6.8 A-a Gradient 21.9 Oxyhemoglobin 96.0 Total Hemoglobin 11.6 L O2 Delivery Device Room air O2 Liters/Min Not Reportable FiO2 21 <Abdiel Ga MD - Last Filed: 07/30/24 05:57> 07/30/24 06:56 Puncture Site Right radial ABG pH 7.382 ABG pCO2 29.5 L ABG pO2 92.5 ABG PO2/FiO2 Ratio 4.40 ABG HCO3 17.1 L ABG O2 Saturation 97.1 ABG O2 Content 15.8 L ABG Base Excess -6.8 A-a Gradient 21.9 Oxyhemoglobin 96.0 Total Hemoglobin 11.6 L O2 Delivery Device Room air O2 Liters/Min Not Reportable FiO2 21 <Franklyn Rm MD - Last Filed: 07/30/24 19:01> Discharge Plan Discharge Clinical Impression: Nausea & vomiting, Cannabinoid hyperemesis syndrome <Abidel Ga MD - Last Filed: 07/30/24 05:57> Patient Disposition: Home, Self-Care <Abdiel Ga MD - Last Filed: 07/30/24 05:57> Condition: Stable <Abdiel Ga MD - Last Filed: 07/30/24 05:57> Instructions: Antibiotic Form, Acute Nausea and Vomiting (ED) <Abdiel Ga MD - Last Filed: 07/30/24 05:57> Additional Instructions: Home medications for nausea and vomiting. Decrease your THC use. Have close follow-up with GI. If you have any worsening symptoms then please call or return to the emergency department. <Abdiel Ga MD - Last Filed: 07/30/24 05:57> Prescriptions: No Action (DME) Omnipod 5 G6-G7 Intro Kt(Gen5) Cartridge See Rx Instructions .Route Qty: 1 0RF Rx Instructions: As directed (DME) Omnipod 5 G6-G7 Pods (Gen 5) Cartridge See Rx Instructions .Route Qty: 30 0RF Rx Instructions: Change every 3 days folic acid 1 mg tablet 1 mg PO DAILY Qty: 90 0RF insulin lispro 100 unit/mL solution See Rx Instructions subcut PRN MDD 50 Qty: 60 0RF Rx Instructions: for insulin pump (DME) Dexcom G6 Sensor Device See Rx Instructions .ROUTE .MEDSUPPLY Qty: 9 2RF Rx Instructions: every 10 days (DME) insulin pump cart,auto,BT,G6/7 Cartridge See Rx Instructions .Route Qty: 45 4RF Rx Instructions: Change every 3 days Gvoke HypoPen 2-Pack 1 mg/0.2 mL auto-injector 1 mg subcut ONCE Qty: 0.4 0RF Rx Instructions: as a single dose; may repeat once after 15 minutes if no response glucose 4 gram tablet,chewable 16 g PO Q15M PRN (Reason: hypoglycemia) Qty: 360 0RF Rx Instructions: until symptoms of low blood sugar are controlled metoclopramide HCl 10 mg tablet 10 mg PO Q6H mecobalamin (vitamin B12) 500 mcg tablet,chewable 500 mcg PO DAILY multivitamin Tablet 1 tablet PO DAILY potassium gluconate 2 mEq tablet 2 meq PO DAILY ondansetron 4 mg tablet,disintegrating 4 mg PO BID PRN (Reason: nausea and vomiting) Qty: 20 0RF lisinopril 2.5 mg tablet 2.5 mg PO DAILY Qty: 90 0RF pantoprazole 40 mg tablet,delayed release (DR/EC) 40 mg PO Q12H Qty: 180 3RF sucralfate 100 mg/mL suspension 1 g PO Q6H Qty: 1000 0RF cholecalciferol (vitamin D3) 50 mcg (2,000 unit) capsule 50 mcg PO DAILY Qty: 90 0RF gabapentin 300 mg capsule 300 mg PO QHS Qty: 90 1RF (DME) Omnipod 5 G6-G7 Intro Kt(Gen5) Cartridge See Rx Instructions .Route Qty: 1 0RF Rx Instructions: As directed <Abdiel Ga MD - Last Filed: 07/30/24 05:57> Follow-up/Referrals: Nam Carmona MD [Primary Care Provider] - <Abdiel Ga MD - Last Filed: 07/30/24 05:57>
[2024-07-30 06:38] LABS: Alanine Aminotransferase 18 U/L (6-35); Alkaline Phosphatase 68 U/L (38-126); Anion Gap 16 mmol/L (4-12); Aspartate Amino Transferase 25 U/L (14-36); Bilirubin,Total 0.9 mg/dL (0.2-1.3); Blood Urea Nitrogen 14 mg/dL (7-17); Calcium 9.9 mg/dL (8.4-10.2); Carbon Dioxide 18 mmol/L (22-30); Chloride 103 mmol/L (98-107); Estimated CRCL calculation 93 ml/min; Estimated Glomerular Filt Rate > 60; Glucose 289 mg/dL (65-110); Lipase 40 U/L (23-300); Sodium 137 mmol/L (137-145)
[2024-07-30] MEDS: ONDANSETRON INJ 4 MG/2 ML VIAL IV PUSH (06:45)
[2024-07-30 06:52] LABS: Magnesium 1.4 mg/dL (1.6-2.3)
[2024-07-30 06:55] LABS: BEDSIDEPREGUCG Negative (Negative)
[2024-07-30 06:58] LABS: Beta-Hydroxybutyrate/Acetoacetate 2.79 mmol/L (0.02-0.27)
[2024-07-30 07:10] LABS: Alveolar/Arterial O2 Gradient 21.9 mmHg; Base Excess ABG -6.8 mEq/l (+/-2.0); Fractional Inspired Oxygen 21 %; HCO3 ABG 17.1 mEq/l (22.0-26.0); Oxygen Content ABG 15.8 %vol (16.0-22.0); Oxygen Saturation ABG 97.1 % (95.0-100.0); PCO2 ABG 29.5 mmHg (35.0-45.0); PO2 ABG 92.5 mmHg (80.0-100.0); Total Hemoglobin 11.6 g/dL (12.0-18.0); pH ABG 7.382 (7.350-7.450)
[2024-07-30 07:12] LABS: Add Urine Microscopic? YES; Appearance Urine Clear (Clear); Bacteria Urine None Seen /hpf; Bilirubin Urine Negative (Negative); Blood Urine 2+ (Negative); Color Urine Yellow (Yellow); Glucose Urine UA 3+ mg/dL (Negative); Ketones Urine 3+ mg/dL (Negative); Leukocyte Esterase Ur Negative LEU/UL (Negative); Nitrate Urine Negative (Negative); Non Pathogenic Casts 0-2; Protein Urine 2+ mg/dL (Negative); Specific Grav Ur 1.021 (1.001-1.035); Squamous Epithelial Cell Urine None Seen /hpf (Few); Urobilinogen Urine 0.2 mg/dL (<2.0); WBC Urine 0-5 /hpf (0-3); pH Urine 5.5 (5.0-9.0)
[2024-07-30 07:13] LABS: Device ROOM AIR; Site Drawn RIGHT RADIAL
[2024-07-30] MEDS: MAGNESIUM SULF 2 GM/WATER 50ML 2 GM/50 ML BAG IVPB (07:23)
[2024-07-30] MEDS: INSULIN HUMAN REGULAR (*BKC) 100 UNITS/ML 10 UNITS IV PUSH (07:23)
[2024-07-30] MEDS: HALOPERIDOL LACTATE 5 MG/ML VIAL IM (07:42)
[2024-07-30 08:24] LABS: Glucose Point of Care 121 mg/dl (65-105)
[2024-07-30] MEDS: HYDROmorphone HCL INJ (*CRX) 1 MG/ML SYR 0.5 MG IV PUSH (09:28)
[2024-07-30 09:33] LABS: Glucose Point of Care 148 mg/dl (65-105)
[2024-07-30 10:48] LABS: Anion Gap 11 mmol/L (4-12); Blood Urea Nitrogen 11 mg/dL (7-17); Calcium 8.7 mg/dL (8.4-10.2); Carbon Dioxide 19 mmol/L (22-30); Chloride 107 mmol/L (98-107); Estimated CRCL calculation 107 ml/min; Estimated Glomerular Filt Rate > 60; Glucose 163 mg/dL (65-110); Potassium 3.7 mmol/L (3.4-5.0); Sodium 137 mmol/L (137-145)
[2024-07-30] MEDS: ONDANSETRON INJ 4 MG/2 ML VIAL (11:38)
== END 2024-07-30 11:39 | disposition home or self-care (01) ==
PROVIDERS: Emergency Medicine; Emergency Provider Emergency Medicine; PCP Family Medicine
DX: R11.2 Nausea with vomiting, unspecified (principal); F12.90 Cannabis use, unspecified, uncomplicated; E10.40 Type 1 diabetes mellitus with diabetic neuropathy, unspecified; E10.43 Type 1 diabetes mellitus with diabetic autonomic (poly)neuropathy; K31.84 Gastroparesis; E78.5 Hyperlipidemia, unspecified; F17.210 Nicotine dependence, cigarettes, uncomplicated; Z79.4 Long term (current) use of insulin; Z79.899 Other long term (current) drug therapy
CPT/HCPCS: 36415; 36600; 74177; 80048; 80053; 81001; 81025; 82010; 82805; 82948; 83690; 83735; 85018; 85025; 96361; 96365; 96366; 96372; 96375; 96376; 99284; J1171; J1630; J1815; J2405; J2765; J3475; J7030; Q9967

== ENCOUNTER 2024-07-31 05:40 | Emergency (ER) | payer OTHER, SELFPAY ==
[2024-07-31] VITALS (7 sets, daily range): BP systolic 113–165; BP diastolic 68–92; PULSE 91–109; RESP 15–20; TEMP 36.8–37.1; O2SAT 98–100
--- NOTE | ~2024-07-31 | US_ITS ---
US abdomen limited INDICATION: Epigastric and right upper quadrant pain PROCEDURE: Realtime right upper abdominal ultrasound. COMPARISON: No prior studies for comparison. FINDINGS: The pancreas is normal without focal mass or pancreatic ductal dilation. Liver echotexture is normal without focal mass or intrahepatic biliary dilatation. There is normal directional flow i n the portal vein. The gallbladder is normal without stones, gallbladder wall thickening or pericholecystic fluid. Comm on bile duct measures 3 mm. No sonographic Rg's sign. IMPRESSION: 1: Normal limited abdominal ultrasound. Reviewed, dictated and finalized at location [facility]. [facility] [employer]
[2024-07-31 06:00] LABS: Basophils Percent Auto 0.3 % (0.2-1.2); Eosinophils Percent Auto 0.1 % (0-4.4); Hematocrit 36.6 % (37.0-47.0); Hemoglobin 11.9 g/dL (12.0-15.0); Immature Granulocyte Absolute 0.07 K/mm3 (0.00-0.031); Immature Granulocyte Percent A 0.5 % (0-0.5); Lymphocytes Absolute Auto 1.43 K/mm3 (0.9-3.2); Mean Corpuscular HGB Conc 32.5 g/dl (32-36); Mean Corpuscular Hemoglobin 26.3 pg (26-34); Mean Platelet Volume 10.1 fl (7.4-10.4); Monocytes Absolute Auto 0.8 K/mm3 (0.1-0.6); Monocytes Percent Auto 5.7 % (2.6-8.5); Neutrophils Absolute Auto 11.9 K/mm3 (1.3-6.7); Neutrophils Percent Auto 83.4 % (45.5-73.1); Platelet Count Result 373 k/mm3 (150-375); Red Blood Count 4.52 M/mm3 (4.2-5.4); White Blood Count 14.3 K/mm3 (4.5-10.0)
[2024-07-31 06:14] LABS: Alanine Aminotransferase 15 U/L (6-35); Albumin Level 4.9 g/dL (3.5-5.1); Alkaline Phosphatase 68 U/L (38-126); Anion Gap 10 mmol/L (4-12); Aspartate Amino Transferase 24 U/L (14-36); Bilirubin,Total 1.3 mg/dL (0.2-1.3); Blood Urea Nitrogen 14 mg/dL (7-17); Calcium 9.5 mg/dL (8.4-10.2); Carbon Dioxide 25 mmol/L (22-30); Chloride 100 mmol/L (98-107); Estimated CRCL calculation 82 ml/min; Estimated Glomerular Filt Rate > 60; Glucose 225 mg/dL (65-110); Lipase 58 U/L (23-300); Potassium 3.7 mmol/L (3.4-5.0); Sodium 135 mmol/L (137-145)
--- NOTE | 2024-07-31 07:03 | ED_ITS ---
HPI - Abdominal Pain General Chief Complaint: Abdominal Pain Stated Complaint: N/V/ABD PAIN Time Seen by Provider: 07/31/24 07:00 Source: patient Mode of arrival: ambulatory Limitations: no limitations History of Present Illness HPI narrative: Patient presents with nausea and vomiting of 2 days duration as well as abdominal pain of 1 day's duration. She was seen in the emergency department yesterday and diagnosed with gastritis. At baseline she has a possible diagnosis of gastroparesis for which she takes Zofran and Reglan home she states that abdominal pain is not to be component of this. 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 Her abdominal pain is located at the epigastrium but is otherwise nonradiating. She does not recall when her last bowel movement was. She denies any fevers or chills. She is currently menstruating. She states that she tried to eat some Jell-O when she left the emergency department yesterday but has been unable to keep anything d own. Despite this, she does still have an appetite if she were not so nauseated and in pain. She does note that she uses marijuana daily/near daily. Related Data Home Medications Medication Instructions Recorded Confirmed mecobalamin (vitamin B12) 500 mcg 500 mcg PO DAILY 07/15/24 07/15/24 chewable tablet metoclopramide HCl 10 mg tablet 10 mg PO Q6H 07/15/24 07/15/24 multivitamin 1 tablet PO DAILY 07/15/24 07/15/24 potassium gluconate 2 mEq tablet 2 meq PO DAILY 07/15/24 07/15/24 Allergies Allergy/AdvReac Type Severity Reaction Status Date / Time No Known Allergies Allergy Verified 07/31/24 06:08 [facility] Past Medical History Medical History Diabetic neuropathy DKA (diabetic ketoacidoses) multiple Elevated liver enzymes Gastroparesis Hyperlipidemia Type 1 diabetes mellitus Diagnosed at the age of 7. Hemoglobin A1c was 10.8% on 08/09/2020. Surgical History Surgical History History of 3 sections History of gynecological procedure 04/29/2020- mirena iud insertion - 10/23/2021 mirena iud removal -nm Family History Family History Grandparent Breast cancer Father Diabetes mellitus Other Hypertension Social History Social History (Updated 07/31/24 @ 13:04 by Carolyn Guardado MD) Smoking packs per day: 1 Smoking cigarettes per day: 20.0 Years smoked: 25 Smoking pack-years: 25.00 Smoking status: Current every day smoker Tobacco type: cigarettes Second hand tobacco smoke exposure: No Alcohol intake: former Drinks per week: 20 Alcohol use details: occasional Substance use: current Substance use type: marijuana Last use: 08/12/23 Do You Feel Safe in your Home?: Yes Lack of Transportation: No Lack of Food: Never True Current Housing: I Have Housing Concerned About Future Housing: No Difficulty Paying Gas/Electric Bills: No Difficulty Paying for Meds: No Currently Unemployed: No Education: High School Diploma/GED Difficulty w/ Childcare or Family Care: No Living arrangements: with family Occupation/Education: unemployed Additional occupation/education comments: not currently working Gender identity (if verbalized by the patient): Female Sexual Orientation (if Verbalized by the Patient): Straight or Heterosexual Spiritual care concerns: No Exam Narrative: GENERAL: Well-appearing, well-nourished, in mild acute distress. HEAD: Normocephalic, atraumatic. EYES: Non injected, non icteric ENT: Nares clear, no rhinorrhea or epistaxis. Tacky mucous membranes NECK: Supple. CHEST: Speaking in full sentences. No respiratory distress. HEART: Tachycardic rate and rhythm. . ABDOMEN: Mild tenderness to palpation of the epigastrium however soft and nondistended. No rigidity or guarding. Not peritoneal. Rg sign negative. EXTREMITIES: Normal range of motion. No lower extremity edema. CGM in place upper extremity. SKIN: Warm, dry, no rash. NEURO: No focal deficits. Alert and oriented x3. PSYCH: Normal mood and affect. Course Vital Signs Vital signs: Vital Signs Pulse Rate 108 H 07/31/24 05:41 Respiratory Rate 15 07/31/24 05:41 Blood Pressure 156/92 H 07/31/24 05:41 Pulse Oximetry 100 07/31/24 05:41 Oxygen Delivery Room Air 07/31/24 05:41 Temperature 98.7 F 07/31/24 11:30 Pulse Rate 94 07/31/24 13:08 Respiratory Rate 18 07/31/24 13:08 Blood Pressure 113/68 07/31/24 13:08 Pulse Oximetry 99 07/31/24 13:08 Oxygen Delivery Room Air 07/31/24 05:41 MDM - Abdominal Pain MDM Narrative Medical decision making narrative: Patient presents with persistent nausea and vomiting as well as abdominal pain. She has been having the symptoms for a few days and has already presented to the emergency department for them and had a work up including at CT yesterday. In the emergency department she is afebrile, with vital signs also notable for mild tachycardia and hypertension. Will give 1 L IV fluid for tachycardia as well as famotidine. Leukocytosis and normocytic anemia, the latter stable from previous. Hyperglycemia without anion gap acidosis. Pseudo hyponatremia as it corrects to 137-138 in the setting of hyperglycemia. Urine with blood in however patient does note that she is currently having her menstrual cycle. There is also ketonuria, proteinuria and glucosuria but otherwise does not appear infected. test negative. Given patient's marijuana use we did initiate treatment with diphenhydramine and Haldol. Patient received 25 mg 2.5 mg respectively and on reassessment she did state that her symptoms were improving although now resolved. This was re- dosed. On reassessment, states her nausea has recurred. Given patient has received multiple QT prolonging agents, EKG obtained which shows normal QTC. Multiple antiemetics are given. Imaging obtained and opiate pain medication given. On reassessment patient states symptoms are improved. Advised to follow up with PCP and take medications as prescribed. She is given presciptions for OTC analgesic medications as well as for Maalox and some Phenergan suppositories given that she otherwise had t rialed Zofran and Reglan at home with minimal improvement in symptoms. Differential Diagnosis Differential diagnosis: Likely abdominal pain, constipation, gastroenteritis, pancreatitis and other (Gastritis, peptic ulcer disease, cannabinoid hyperemesis syndrome; gastroparesis; biliary etiology; ) Medical Records Medical records narrative: 07/30/24 CT abdomen pelvis reviewed: No significant abnormalities seen. Lab Data Attestation: I reviewed the patient's lab results. 07/31/24 05:53 07/31/24 05:53 Labs: Lab Results 1207/31/24 07/31/24 Range/Units 05:53 07:13 07:15 WBC 14.3 H (4.5-10.0) K/mm3 RBC 4.52 (4.2-5.4) M/mm3 Hgb 11.9 L (12.0-15.0) g/dL Hct 36.6 L (37.0-47.0) % MCV 81.0 (80-100) fl MCH 26.3 (26-34) pg MCHC 32.5 (32-36) g/dl RDW 14.0 (11.5-14.5) % Plt Count 373 (150-375) k/mm3 MPV 10.1 (7.4-10.4) fl Immature Gran % (Auto) 0.5 (0-0.5) % Neut % (Auto) 83.4 H (45.5-73.1) % Lymph % (Auto) 10.0 L (18.3-44.2) % Ellis % (Auto) 5.7 (2.6-8.5) % Eos % (Auto) 0.1 (0-4.4) % Baso % (Auto) 0.3 (0.2-1.2) % Lymph # (Auto) 1.43 (0.9-3.2) K/mm3 Ellis # (Auto) 0.8 H (0.1-0.6) K/mm3 Eos # (Auto) 0.0 (0-0.3) K/mm3 Baso # (Auto) 0.0 (0.0-0.1) K/mm3 Abs Immat Gran (auto) 0.07 H (0.00-0.031) K/mm3 Absolute Neuts (auto) 11.9 H (1.3-6.7) K/mm3 Absolute Nucleated RBC 0.000 (0.0-0.012) K/mm3 Nucleated RBC % 0.0 (0.0-0.2) % Sodium 135 L (137-145) mmol/L Potassium 3.7 (3.4-5.0) mmol/L Chloride 100 (98-107) mmol/L Carbon Dioxide 25 (22-30) mmol/L Anion Gap 10 (4-12) mmol/L BUN 14 (7-17) mg/dL Creatinine 0.70 (0.7-1.0) mg/dL Estim Creat Clear Calc 82 ml/min Estimated GFR > 60 (59 - ) Glucose 225 H (65-110) mg/dL Calcium 9.5 (8.4-10.2) mg/dL Total Bilirubin 1.3 (0.2-1.3) mg/dL AST 24 (14-36) U/L ALT 15 (6-35) U/L Alkaline Phosphatase 68 (38-126) U/L Total Protein 9.0 H (6.3-8.2) g/dL Albumin 4.9 (3.5-5.1) g/dL Lipase 58 (23-300) U/L Urine Color Yellow (Yellow) Urine Appearance Cloudy H (Clear) Urine pH 5.5 (5.0-9.0) Ur Specific [place] 1.029 (1.001-1.035) Urine Protein 2+ H (Negative) mg/dL Urine Glucose (UA) 3+ H (Negative) mg/dL Urine Ketones 3+ H (Negative) mg/dL Ur Blood (Man) 3+ H (Negative) Urine Nitrate Negative (Negative) Urine Bilirubin Negative (Negative) Urine Urobilinogen 1.0 (<2.0) mg/dL Leukocyte Esterase Rfl Negative (Negative) CHRISTIANA/UL Urine RBC >100 H (0-2) /hpf Urine WBC 0-5 (0-3) /hpf Ur Squamous Epith Cells Occasional (Few) /hpf Urine Bacteria None seen /hpf Urine Casts 0-2 POC Urine HCG, Qual Negative (Negative) Influenza A (RT-PCR) (Negative) Influenza B (RT-PCR) (Negative) SARS-CoV-2 RNA (RT-PCR) (Negative) 07/31/24 Range/Units 07:28 WBC (4.5-10.0) K/mm3 RBC (4.2-5.4) M/mm3 Hgb (12.0-15.0) g/dL Hct (37.0-47.0) % MCV (80-100) fl MCH (26-34) pg MCHC (32-36) g/dl RDW (11.5-14.5) % Plt Count (150-375) k/mm3 MPV (7.4-10.4) fl Immature Gran % (Auto) (0-0.5) % Neut % (Auto) (45.5-73.1) % Lymph % (Auto) (18.3-44.2) % Ellis % (Auto) (2.6-8.5) % Eos % (Auto) (0-4.4) % Baso % (Auto) (0.2-1.2) % Lymph # (Auto) (0.9-3.2) K/mm3 Ellis # (Auto) (0.1-0.6) K/mm3 Eos # (Auto) (0-0.3) K/mm3 Baso # (Auto) (0.0-0.1) K/mm3 Abs Immat Gran (auto) (0.00-0.031) K/mm3 Absolute Neuts (auto) (1.3-6.7) K/mm3 Absolute Nucleated RBC (0.0-0.012) K/mm3 Nucleated RBC % (0.0-0.2) % Sodium (137-145) mmol/L Potassium (3.4-5.0) mmol/L Chloride (98-107) mmol/L Carbon Dioxide (22-30) mmol/L Anion Gap (4-12) mmol/L BUN (7-17) mg/dL Creatinine (0.7-1.0) mg/dL Estim Creat Clear Calc ml/min Estimated GFR (59 - ) Glucose (65-110) mg/dL Calcium (8.4-10.2) mg/dL Total Bilirubin (0.2-1.3) mg/dL AST (14-36) U/L ALT (6-35) U/L Alkaline Phosphatase (38-126) U/L Total Protein (6.3-8.2) g/dL Albumin (3.5-5.1) g/dL Lipase (23-300) U/L Urine Color (Yellow) Urine Appearance (Clear) Urine pH (5.0-9.0) Ur Specific [place] (1.001-1.035) Urine Protein (Negative) mg/dL Urine Glucose (UA) (Negative) mg/dL Urine Ketones (Negative) mg/dL Ur Blood (Man) (Negative) Urine Nitrate (Negative) Urine Bilirubin (Negative) Urine Urobilinogen (<2.0) mg/dL Leukocyte Esterase Rfl (Negative) CHRISTIANA/UL Urine RBC (0-2) /hpf Urine WBC (0-3) /hpf Ur Squamous Epith Cells (Few) /hpf Urine Bacteria /hpf Urine Casts POC Urine HCG, Qual (Negative) Influenza A (RT-PCR) Negative (Negative) Influenza B (RT-PCR) Negative (Negative) SARS-CoV-2 RNA (RT-PCR) Negative (Negative) Imaging Data Radiologist's impression: ITS Impressions Abdomen Ultrasound 07/31/24 12:45 IMPRESSION: 1: Normal limited abdominal ultrasound. ECG Data EKG #1: Attestation: I personally reviewed and interpreted this ECG as follows: ECG completion date: 07/31/24 ECG completion time: 09:58 Interpretation: Sinus tachycardia at a rate of 103 beats per minute. CO interval 149. QRS 76. QT/QTC 359/419. Good R-wave progression across the precordial leads. No T-wave inversions. Discharge Plan Discharge Clinical Impression: Nausea & vomiting, Leukocytosis, Normocytic anemia, Hyperglycemia due to diabetes mellitus, Pseudohyponatremia, Epigastric abdominal pain, Ketonuria, Proteinuria, Glucosuria Patient Disposition: Home, Self-Care Condition: Stable Instructions: Antibiotic Form, Managing Diabetes During Sick Days (ED), Acute Nausea and Vomiting (DC), Anemia (ED), Diabetic Hyperglycemia (ED), Epigastric Pain (ED) Additional Instructions: As we discussed, this might represent cannabinoid hyperemesis syndrome and I encouraged to read about this condition and trial stopping use of marijuana to see if your symptoms improve. However, you do have other reasons for possible pain in this location including but not limited to your diabetes although this otherwise did not show to be in DKA today. Acetaminophen/Tylenol (maximum 4000 mg per day) is safe to take with NSAIDs (ibuprofen/Motrin) for pain relief. You are also being prescribed Phenergan suppository to use at home. Follow-up with your primary care physician and technology integration specialist at your previously scheduled appointments with them later this month. Return to the emergency department with any new or worsening symptoms. Prescriptions: New ibuprofen 600 mg tablet 600 mg PO TID PRN (Reason: pain) Qty: 30 0RF acetaminophen 500 mg capsule 1,000 mg PO Q6H PRN (Reason: pain) Qty: 30 0RF promethazine 25 mg suppository 25 mg RECTAL Q6H PRN (Reason: nausea and vomiting) Qty: 12 0RF alum-mag hydroxide-simeth [Liquid Antacid] 400-400-40 mg/5 mL suspension 10 ml PO TID PRN (Reason: indigestion) Qty: 3000 0RF No Action (DME) Omnipod 5 G6-G7 Intro Kt(Gen5) Cartridge See Rx Instructions .Route Qty: 1 0RF Rx Instructions: As directed (DME) Omnipod 5 G6-G7 Pods (Gen 5) Cartridge See Rx Instructions .Route Qty: 30 0RF Rx Instructions: Change every 3 days folic acid 1 mg tablet 1 mg PO DAILY Qty: 90 0RF insulin lispro 100 unit/mL solution See Rx Instructions subcut PRN MDD 50 Qty: 60 0RF Rx Instructions: for insulin pump (DME) Dexcom G6 Sensor Device See Rx Instructions .ROUTE .MEDSUPPLY Qty: 9 2RF Rx Instructions: every 10 days (DME) insulin pump cart,auto,BT,G6/7 Cartridge See Rx Instructions .Route Qty: 45 4RF Rx Instructions: Change every 3 days Gvoke HypoPen 2-Pack 1 mg/0.2 mL auto-injector 1 mg subcut ONCE Qty: 0.4 0RF Rx Instructions: as a single dose; may repeat once after 15 minutes if no response glucose 4 gram tablet,chewable 16 g PO Q15M PRN (Reason: hypoglycemia) Qty: 360 0RF Rx Instructions: until symptoms of low blood sugar are controlled metoclopramide HCl 10 mg tablet 10 mg PO Q6H mecobalamin (vitamin B12) 500 mcg tablet,chewable 500 mcg PO DAILY multivitamin Tablet 1 tablet PO DAILY potassium gluconate 2 mEq tablet 2 meq PO DAILY ondansetron 4 mg tablet,disintegrating 4 mg PO BID PRN (Reason: nausea and vomiting) Qty: 20 0RF lisinopril 2.5 mg tablet 2.5 mg PO DAILY Qty: 90 0RF pantoprazole 40 mg tablet,delayed release (DR/EC) 40 mg PO Q12H Qty: 180 3RF sucralfate 100 mg/mL suspension 1 g PO Q6H Qty: 1000 0RF cholecalciferol (vitamin D3) 50 mcg (2,000 unit) capsule 50 mcg PO DAILY Qty: 90 0RF gabapentin 300 mg capsule 300 mg PO QHS Qty: 90 1RF (DME) Omnipod 5 G6-G7 Intro Kt(Gen5) Cartridge See Rx Instructions .Route Qty: 1 0RF Rx Instructions: As directed Follow-up/Referrals: Nam Carmona MD [Primary Care Provider] - Time of Disposition: 13:04
[2024-07-31 07:17] LABS: BEDSIDEPREGUCG Negative (Negative)
[2024-07-31] MEDS: SODIUM CHLORIDE 0.9% IV 1,000 ML 999 ML IV CONT (07:21)
[2024-07-31] MEDS: diphenhydrAMINE HCl INJ 50 MG/ML VIAL 25 MG IV PUSH ×2 (07:21→08:45)
[2024-07-31] MEDS: FAMOTIDINE 20 MG/2 ML VIAL IV PUSH (07:22)
[2024-07-31] MEDS: HALOPERIDOL LACTATE 5 MG/ML VIAL 2.5 MG IV PUSH ×2 (07:22→08:46)
[2024-07-31 07:23] LABS: Add Urine Microscopic? YES; Appearance Urine Cloudy (Clear); Bacteria Urine None Seen /hpf; Bilirubin Urine Negative (Negative); Blood Urine 3+ (Negative); Color Urine Yellow (Yellow); Glucose Urine UA 3+ mg/dL (Negative); Ketones Urine 3+ mg/dL (Negative); Leukocyte Esterase Ur Negative LEU/UL (Negative); Nitrate Urine Negative (Negative); Non Pathogenic Casts 0-2; Protein Urine 2+ mg/dL (Negative); RBC Urine >100 /hpf (0-2); Specific Grav Ur 1.029 (1.001-1.035); Squamous Epithelial Cell Urine Occasional /hpf (Few); WBC Urine 0-5 /hpf (0-3); pH Urine 5.5 (5.0-9.0)
[2024-07-31 08:15] LABS: Influenza A QL RT-PCR Negative (Negative); Influenza B QL RT-PCR Negative (Negative); SARS-CoV-2 RNA PCR Negative (Negative)
--- NOTE | 2024-07-31 09:42 | ECG_ITS ---
Test Date: 2024-07-31 09:58:18 Measurements Intervals [place] Rate: 103 P: 67 PA: 149 QRS: 13 QRSD: 76 T: 52 QT: 359 QTc: 472 Interpretive Statements SINUS TACHYCARDIA LEFT ATRIAL ENLARGEMENT Compared to ECG 06/29/2024 14:43:06 NO SIGNIFICANT CHANGES Electronically Signed On 07-31-2024 12:54:01 DISTRIBUTING CLERK by Cira Sterling M.D.
[2024-07-31] MEDS: PROCHLORPERAZINE EDISYLATE 10 MG/2 ML VIAL IV PUSH (10:12)
[2024-07-31] MEDS: PROMETHAZINE HCL 12.5 MG SUPP.RECT RECTAL (11:12)
[2024-07-31] MEDS: MORPHINE SULFATE (*CRX) 4 MG/ML INJ IV PUSH (12:09)
[2024-07-31] MEDS: KETOROLAC 15 MG/ML VIAL (*BKC) IV PUSH (12:13)
== END 2024-07-31 13:23 | disposition home or self-care (01) ==
PROVIDERS: Emergency Medicine; Emergency Provider Student in an Organized Health Care Education/Training Program; PCP Family Medicine
DX: R11.2 Nausea with vomiting, unspecified (principal); D72.829 Elevated white blood cell count, unspecified; D64.9 Anemia, unspecified; E10.65 Type 1 diabetes mellitus with hyperglycemia; R10.13 Epigastric pain; R82.4 Acetonuria; R80.9 Proteinuria, unspecified; F17.210 Nicotine dependence, cigarettes, uncomplicated; E78.5 Hyperlipidemia, unspecified; Z20.822 Contact with and (suspected) exposure to COVID-19
CPT/HCPCS: 36415; 76705; 80053; 81001; 81025; 83690; 85025; 87636; 93005; 96361; 96374; 96375; 96376; 99284; A9270; J0780; J1200; J1630; J1885; J2270; J7030

== ENCOUNTER 2024-08-02 12:15 | Observation (INO) | payer OTHER, SELFPAY ==
--- NOTE | ~2024-08-02 | NM_ITS ---
EXAMINATION: NM hepatobiliary w pharm DATE: 08/05/2024 10:07 INDICATION: Nausea and vomiting COMPARISON: CT dated 08/02/2024 TECHNIQUE: 5.0 mCi Tc-99m mebrofenin (Choletec) was administered intravenously. Scintigraphic images of the abdomen were obtained for one hour. 1.5 mcg sincalide (Kinevac) was administered by slow intr avenous infusion, and imaging was continued for 30 minutes. Gallbladder ejection fraction was calcula tong by the technologist. FINDINGS: There is normal clearance of radiotracer from the blood pool. There is homogeneous tracer uptake by t he liver. Activity progresses to the gallbladder and bowel. The gallbladder ejection fraction (GBEF) is 25% (normal 10-90%, but most patient with gallbladder dysfunction have GBEF < 35% which does over lap with the normal range). IMPRESSION: 1. Gallbladder ejection fraction is at the lower limits of normal. This could be normal but is also within the range of overlap with gallbladder dysfunction or chronic cholecystitis in the appropriate clinical setting. Reviewed, dictated and finalized at location A. MP PEELER
--- NOTE | ~2024-08-02 | CT_ITS ---
EXAMINATION: CT abdomen pelvis w con DATE: 08/02/2024 16:48 INDICATION: Diffuse abdominal pain, nausea, vomiting. Leukocytosis. TECHNIQUE: Computed tomography (CT) of the abdomen and pelvis was performed without intravenous contr ast. Automated exposure control and iterative reconstruction technique were employed. Exam dose: 479 .22 mGy-cm total exam DLP. COMPARISON: 07/31/2024 Limited abdominal ultrasound 07/30/2024 CT abdomen pelvis, reported unremarkable 07/31/2024 Limited abdominal ultrasound reported normal FINDINGS: The lung bases are clear. Normal heart size. No pericardial or pleural effusion. The liver, gallbladder, bile ducts, spleen, pancreas, pancreatic duct, and adrenal glands are unremar kable. There is mild irregularity of the cortical outlines of both kidneys suggesting bilateral chronic pyel onephritis. No urinary tract calculus or hydroureteronephrosis. No perinephric or periureteral strand ing. Normal caliber of the abdominal aorta. No intraperitoneal or retroperitoneal or pelvic mass lesion or adenopathy or ascites. The urinary bladder, uterus and adnexal areas are unremarkable. No bowel obstruction. The appendix is unremarkable. No intraperitoneal free air. Very small fat-containing umbilical hernia. Included skeletal structures are unremarkable. IMPRESSION: Mild irregularity renal outline suggesting bilateral chronic pyelonephritis Normal appendix No acute abnormality is identified Reviewed, dictated and finalized at [facility]. Reviewed, dictated and finalized at location A. NDER HONER IMPRESSION: Mild irregularity renal outline suggesting bilateral chronic pyelo nephritis Normal appendix No acute abnormality is identified
[2024-08-02 12:21] VITALS: BP 130/98; PULSE 112; RESP 20; TEMP 36.4; O2SAT 99
[2024-08-02 14:46] LABS: Glucose Point of Care 434 mg/dl (65-105)
--- NOTE | 2024-08-02 14:53 | ED_ITS ---
HPI - Abdominal Pain General Chief Complaint: Abdominal Pain <Meg Farmer PA-C - Last Filed: 08/02/24 19:17> Stated Complaint: n/v x6d, abd pain <Meg Farmer PA-C - Last Filed: 08/02/24 19:17> Time Seen by Provider: 08/02/24 14:48 <ALLISON Saini Last Filed: 08/02/24 19:17> Source: patient and old records reviewed <Meg Farmer PA-C - Last Filed: 08/02/24 19:17> Mode of arrival: EMS <ALLISON Saini Last Filed: 08/02/24 19:17> Limitations: no limitations <ALLISON Saini Last Filed: 08/02/24 19:17> History of Present Illness HPI narrative: Patient is a 39 y/o female who presents to the ED via EMS with report of N/V. Patient reports she has had persistent nausea and vomiting, unable to keep down any food or drink over the last 6 days. Patient was seen in the ED 2 days ago and had a negative w/u, improved with supportive therapies (including Haldol), thought to be related to cannabinoid hyperemesis syndrome. Patient reports she has not smoked marijuana in the last 6 days. She reports ongoing sx's, diffuse abdominal pain, constipation X4-5 days. Denies known fevers. Denies diarrhea. Is a type 1 insulin-dependent diabetic and reports that her blood sugars have been increasingly elevated over the last several days. Has insulin pump. Blood sugar upon arrival 434. She does have hx of DKA. <ALLISON Saini Last Filed: 08/02/24 19:17> Related Data Home Medications: Home Medications Medication Instructions Recorded Confirmed mecobalamin (vitamin B12) 500 mcg 500 mcg PO DAILY 07/15/24 08/02/24 chewable tablet metoclopramide HCl 10 mg tablet 10 mg PO Q6H 07/15/24 08/02/24 multivitamin 1 tablet PO DAILY 07/15/24 08/02/24 potassium gluconate 2 mEq tablet 2 meq PO DAILY 07/15/24 08/02/24 melatonin 10 mg tablet 10 mg PO HS PRN Insomnia 08/02/24 08/02/24 <Meg Farmer PA-C - Last Filed: 08/02/24 19:17> Allergies/Adverse Reactions: Allergies Allergy/AdvReac Type Severity Reaction Status Date / Time No Known Allergies Allergy Verified 08/02/24 12:23 <Meg Farmer PA-C - Last Filed: 08/02/24 19:17> Review of Systems Review of Systems: All systems reviewed & are unremarkable except as noted in HPI. <Meg Farmer PA-C - Last Filed: 08/02/24 19:17> All systems reviewed & are unremarkable except as noted in HPI and below <Meg Farmer PA-C - Last Filed: 08/02/24 19:17> [facility] Past Medical History Medical History: Medical History (Updated 08/02/24 @ 22:28 by Bebe Parada APRN) Bipolar disorder Cannabinoid hyperemesis syndrome Depression Diabetic neuropathy DKA (diabetic ketoacidoses) multiple Elevated liver enzymes Esophageal varices 04/2024 Gastroparesis GERD with esophagitis Hyperlipidemia Migraine Type 1 diabetes mellitus Diagnosed at the age of 7. Hemoglobin A1c was 10.8% on 08/09/2020. <Meg Farmer PA-C - Last Filed: 08/02/24 19:17> Surgical History Surgical History: Surgical History History of 3 sections History of gynecological procedure 04/29/2020- mirena iud insertion - 10/23/2021 mirena iud removal -nm <Meg Farmer PA-C - Last Filed: 08/02/24 19:17> Family History Family History: Family History Grandparent Breast cancer Father Diabetes mellitus Other Hypertension <Meg Farmer PA-C - Last Filed: 08/02/24 19:17> Social History Social History: Social History Smoking packs per day: 1 Smoking cigarettes per day: 20.0 Years smoked: 20 Smoking pack-years: 20.00 Smoking status: Current every day smoker Tobacco type: cigarettes Second hand tobacco smoke exposure: Yes Alcohol intake: never Drinks per week: 20 Alcohol use details: occasional Substance use: current Substance use type: marijuana Last use: 07/25/24 Do You Feel Safe in your Home?: Yes Lack of Transportation: No Lack of Food: Never True Current Housing: I Have Housing Concerned About Future Housing: No Difficulty Paying Gas/Electric Bills: No Difficulty Paying for Meds: No Currently Unemployed: No Education: High School Diploma/GED Difficulty w/ Childcare or Family Care: No Living arrangements: with family Occupation/Education: unemployed Additional occupation/education comments: not currently working Gender identity (if verbalized by the patient): Female Sexual Orientation (if Verbalized by the Patient): Straight or Heterosexual Spiritual care concerns: No <Meg Farmer PA-C - Last Filed: 08/02/24 19:17> Exam Narrative: GENERAL: Mildly ill appearing, well-nourished, non-toxic, in no acute distress. HEAD: Normocephalic, atraumatic. RESPIRATORY: Airway patent, respirations nonlabored. Clear to auscultation bilaterally, no rales, rhonchi, wheezing. CARDIOVASCULAR: Regular rate and rhythm without murmurs, rubs, or gallops. ABDOMINAL: Soft, diffuse nonfocal tenderness, nondistended. Normoactive BS. MUSCULOSKELETAL: Moves all extremities. No gross deformities. SKIN: Warm, dry, normal color. NEURO: A&O X3. Speech clear. Cranial nerves II-XII grossly intact. Steady gait. Mildly tremulous throughout upper extremities. PSYCHIATRIC: Appropriate mood and affect. Normal interaction. <Meg Farmer PA-C - Last Filed: 08/02/24 19:17> Course GENERAL DUTY NURSE/PA Physician Supervision I agree with midlevel documentation; I performed the majority of the medical decision making component of this evaluation. I had independent [id number] time with the patient and performed my own independent evaluation and assessment. patient is in diabetic ketoacidosis based on her laboratory assessments, insulin pump likely being the culprit with malfunction according to the patient. She was started on insulin infusion at this time given fluid hydration to IV and p.o. intake. She has slight tachycardia but otherwise reassuring vital signs. Remaining workup as dictated by the midlevel provider and consultants including the assistant clinical director and the admitting hospitalist team. Patient was successfully admitted to the ICU at this time on insulin infusion without further incident. <Alex Prakash MD - Last Filed: 08/02/24 22:37> Vital Signs Vital signs: Vital Signs Temperature 36.4 C 08/02/24 12:21 Pulse Rate 112 H 08/02/24 12:21 Respiratory Rate 20 08/02/24 12:21 Blood Pressure 130/98 H 08/02/24 12:21 Pulse Oximetry 99 08/02/24 12:21 Oxygen Delivery Room Air 08/02/24 12:21 Temperature 36.4 C 08/02/24 12:21 Pulse Rate 120 H 08/02/24 19:32 Respiratory Rate 18 08/02/24 19:32 Blood Pressure 136/86 08/02/24 19:32 Pulse Oximetry 100 08/02/24 19:32 Oxygen Delivery Room Air 08/02/24 20:30 <Meg Farmer PA-C - Last Filed: 08/02/24 19:17> Vital Signs Temperature 36.4 C 08/02/24 12:21 Pulse Rate 112 H 08/02/24 12:21 Respiratory Rate 20 08/02/24 12:21 Blood Pressure 130/98 H 08/02/24 12:21 Pulse Oximetry 99 08/02/24 12:21 Oxygen Delivery Room Air 08/02/24 12:21 Temperature 36.4 C 08/02/24 12:21 Pulse Rate 120 H 08/02/24 19:32 Respiratory Rate 18 08/02/24 19:32 Blood Pressure 136/86 08/02/24 19:32 Pulse Oximetry 100 08/02/24 19:32 Oxygen Delivery Room Air 08/02/24 20:30 <Alex Prakash MD - Last Filed: 08/02/24 22:37> MDM - Abdominal Pain MDM Narrative Medical decision making narrative: Patient presented to ED with 6 day history of nausea, vomiting, recently seen in ED here but reporting persistent symptoms. Patient tachycardic upon arrival. Afebrile here. Vitals are otherwise stable. She does appear mildly ill. Will start fluids, give nausea medicine. Patient is a type 1 diabetic. Initial blood sugar was elevated to 434. Patient does have an insulin pump. I had patient remove this in the ED. She did note that the pin to her pump appeared abnormal upon removal. Hyperglycemia may be in part r/t pump malfu nction. CBC with white blood cell count 54851. Neutrophil predominance. No bandemia. CMP with sodium of 130, likely pseudo hyponatremia with hyperglycemia. Corrected sodium 135-138. Blood sugar is elevated to 431. Chloride low at 90. Bicarb low at 13. Anion gap of 27. 4+ ketones are noted in the urine sample. Urine is negative. VBG showing PH of 7.29. Beta hydroxy elev to 9.32. Patient is meeting criteria for DKA. CT abd/pelvis obtained and showing chronic pyelonephritis picture, no other significant acute intra-abdominal findings. Patient given benadryl and reglan in the ED. EKG was obtained and showing borderline prolonged Qtc at 479. Will avoid any further qtc prolonging agents at this time. Patient given 3 L of fluid in the ED. Repeat BG 390s. Will start insulin drip. Discussed case with Dr. Paiz, assistant clinical director, accepted patient to ICU with DKA protocol. Patient in agreement with plan and need for admission. Discussed case with Bebe Parada NP hospitalist, accepted patient for admission. <Meg Farmer PA-C - Last Filed: 08/02/24 19:17> Medical Records Attestation: I reviewed the patient's medical records. <ALLISON Saini Last Filed: 08/02/24 19:17> Lab Data Attestation: I reviewed the patient's lab results. <Meg Farmer PA-C - Last Filed: 08/02/24 19:17> Result diagrams: 08/02/24 15:12 08/02/24 20:56 <Meg Farmer PA-C - Last Filed: 08/02/24 19:17> Labs: Lab Results 08/02/24 08/02/24 08/02/24 Range/Units 14:36 15:12 15:12 WBC 23.0 H (4.5-10.0) K/mm3 RBC 4.90 (4.2-5.4) M/mm3 Hgb 13.1 (12.0-15.0) g/dL Hct 39.9 (37.0-47.0) % MCV 81.4 (80-100) fl MCH 26.7 (26-34) pg MCHC 32.8 (32-36) g/dl RDW 13.8 (11.5-14.5) % Plt Count 378 H (150-375) k/mm3 MPV 9.7 (7.4-10.4) fl Immature Gran % (Auto) 0.6 H (0-0.5) % Neut % (Auto) 90.4 H (45.5-73.1) % Lymph % (Auto) 5.3 L (18.3-44.2) % [place] % (Auto) 3.4 (2.6-8.5) % Eos % (Auto) 0.0 (0-4.4) % Baso % (Auto) 0.3 (0.2-1.2) % Lymph # (Auto) 1.22 (0.9-3.2) K/mm3 [place] # (Auto) 0.8 H (0.1-0.6) K/mm3 Eos # (Auto) 0.0 (0-0.3) K/mm3 Baso # (Auto) 0.1 (0.0-0.1) K/mm3 Abs Immat Gran (auto) 0.13 H (0.00-0.031) K/mm3 Absolute Neuts (auto) 20.8 H (1.3-6.7) K/mm3 Absolute Nucleated RBC 0.000 (0.0-0.012) K/mm3 Nucleated RBC % 0.0 (0.0-0.2) % Sodium 130 L (137-145) mmol/L Potassium 3.6 (3.4-5.0) mmol/L Chloride 90 L (98-107) mmol/L Carbon Dioxide 13 L (22-30) mmol/L Anion Gap 27 H (4-12) mmol/L BUN 24 H D (7-17) mg/dL Creatinine 1.00 (0.7-1.0) mg/dL Estim Creat Clear Calc 66 ml/min Estimated GFR > 60 (59 - ) Glucose 431 H (65-110) mg/dL POC Capillary Glucose 434 H (65-105) mg/dl Hemoglobin A1c 7.7 H (<5.7) % Lactic Acid (0.7-2.0) mmol/L Calcium 9.4 (8.4-10.2) mg/dL Phosphorus 4.8 H (2.5-4.5) mg/dL Magnesium 1.7 (1.6-2.3) mg/dL Total Bilirubin 1.5 H (0.2-1.3) mg/dL AST 23 (14-36) U/L ALT 16 (6-35) U/L Alkaline Phosphatase 72 (38-126) U/L Total Creatine Kinase 24 L Cancelled (30-135) U/L Total Protein 8.0 (6.3-8.2) g/dL Albumin 4.9 (3.5-5.1) g/dL Lipase 65 (23-300) U/L Beta-Hydroxybutyrate/Acetoacetate 9.32 H (0.02-0.27) mmol/L Urine Color Yellow (Yellow) Urine Appearance Clear (Clear) Urine pH 5.5 (5.0-9.0) Ur Specific [place] 1.028 (1.001-1.035) Urine Protein 1+ H (Negative) mg/dL Urine Glucose (UA) 3+ H (Negative) mg/dL Urine Ketones 4+ H (Negative) mg/dL Ur Blood (Man) Trace (Negative) Urine Nitrate Negative (Negative) Urine Bilirubin Negative (Negative) Urine Urobilinogen 0.2 (<2.0) mg/dL Leukocyte Esterase Rfl Negative (Negative) [place]ST[place]/UL Urine RBC 0-2 (0-2) /hpf Urine WBC 0-5 (0-3) /hpf Ur Squamous Epith Cells None seen (Few) /hpf Urine Bacteria None seen /hpf Urine Casts 0-2 POC Urine HCG, Qual (Negative) 08/02/24 08/02/24 08/02/24 Range/Units 15:17 16:10 17:58 WBC (4.5-10.0) K/mm3 RBC (4.2-5.4) M/mm3 Hgb (12.0-15.0) g/dL Hct (37.0-47.0) % MCV (80-100) fl MCH (26-34) pg MCHC (32-36) g/dl RDW (11.5-14.5) % Plt Count (150-375) k/mm3 MPV (7.4-10.4) fl Immature Gran % (Auto) (0-0.5) % Neut % (Auto) (45.5-73.1) % Lymph % (Auto) (18.3-44.2) % [place] % (Auto) (2.6-8.5) % Eos % (Auto) (0-4.4) % Baso % (Auto) (0.2-1.2) % Lymph # (Auto) (0.9-3.2) K/mm3 [place] # (Auto) (0.1-0.6) K/mm3 Eos # (Auto) (0-0.3) K/mm3 Baso # (Auto) (0.0-0.1) K/mm3 Abs Immat Gran (auto) (0.00-0.031) K/mm3 Absolute Neuts (auto) (1.3-6.7) K/mm3 Absolute Nucleated RBC (0.0-0.012) K/mm3 Nucleated RBC % (0.0-0.2) % Sodium (137-145) mmol/L Potassium (3.4-5.0) mmol/L Chloride (98-107) mmol/L Carbon Dioxide (22-30) mmol/L Anion Gap (4-12) mmol/L BUN (7-17) mg/dL Creatinine (0.7-1.0) mg/dL Estim Creat Clear Calc ml/min Estimated GFR (59 - ) Glucose (65-110) mg/dL POC Capillary Glucose 394 H (65-105) mg/dl Hemoglobin A1c (<5.7) % Lactic Acid 1.8 (0.7-2.0) mmol/L Calcium (8.4-10.2) mg/dL Phosphorus (2.5-4.5) mg/dL Magnesium (1.6-2.3) mg/dL Total Bilirubin (0.2-1.3) mg/dL AST (14-36) U/L ALT (6-35) U/L Alkaline Phosphatase (38-126) U/L Total Creatine Kinase (30-135) U/L Total Protein (6.3-8.2) g/dL Albumin (3.5-5.1) g/dL Lipase (23-300) U/L Beta-Hydroxybutyrate/Acetoacetate (0.02-0.27) mmol/L Urine Color (Yellow) Urine Appearance (Clear) Urine pH (5.0-9.0) Ur Specific [place] (1.001-1.035) Urine Protein (Negative) mg/dL Urine Glucose (UA) (Negative) mg/dL Urine Ketones (Negative) mg/dL Ur Blood (Man) (Negative) Urine Nitrate (Negative) Urine Bilirubin (Negative) Urine Urobilinogen (<2.0) mg/dL Leukocyte Esterase Rfl (Negative) [place]/UL Urine RBC (0-2) /hpf Urine WBC (0-3) /hpf Ur Squamous Epith Cells (Few) /hpf Urine Bacteria /hpf Urine Casts POC Urine HCG, Qual Negative (Negative) <Meg Farmer PA-C - Last Filed: 08/02/24 19:17> Lab Results 08/02/24 08/02/24 08/02/24 Range/Units 14:36 15:12 15:12 WBC 23.0 H (4.5-10.0) K/mm3 RBC 4.90 (4.2-5.4) M/mm3 Hgb 13.1 (12.0-15.0) g/dL Hct 39.9 (37.0-47.0) % MCV 81.4 (80-100) fl MCH 26.7 (26-34) pg MCHC 32.8 (32-36) g/dl RDW 13.8 (11.5-14.5) % Plt Count 378 H (150-375) k/mm3 MPV 9.7 (7.4-10.4) fl Immature Gran % (Auto) 0.6 H (0-0.5) % Neut % (Auto) 90.4 H (45.5-73.1) % Lymph % (Auto) 5.3 L (18.3-44.2) % [place] % (Auto) 3.4 (2.6-8.5) % Eos % (Auto) 0.0 (0-4.4) % Baso % (Auto) 0.3 (0.2-1.2) % Lymph # (Auto) 1.22 (0.9-3.2) K/mm3 [place] # (Auto) 0.8 H (0.1-0.6) K/mm3 Eos # (Auto) 0.0 (0-0.3) K/mm3 Baso # (Auto) 0.1 (0.0-0.1) K/mm3 Abs Immat Gran (auto) 0.13 H (0.00-0.031) K/mm3 Absolute Neuts (auto) 20.8 H (1.3-6.7) K/mm3 Absolute Nucleated RBC 0.000 (0.0-0.012) K/mm3 Nucleated RBC % 0.0 (0.0-0.2) % Sodium 130 L (137-145) mmol/L Potassium 3.6 (3.4-5.0) mmol/L Chloride 90 L (98-107) mmol/L Carbon Dioxide 13 L (22-30) mmol/L Anion Gap 27 H (4-12) mmol/L BUN 24 H D (7-17) mg/dL Creatinine 1.00 (0.7-1.0) mg/dL Estim Creat Clear Calc 66 ml/min Estimated GFR > 60 (59 - ) Glucose 431 H (65-110) mg/dL POC Capillary Glucose 434 H (65-105) mg/dl Hemoglobin A1c 7.7 H (<5.7) % Lactic Acid (0.7-2.0) mmol/L Calcium 9.4 (8.4-10.2) mg/dL Phosphorus 4.8 H (2.5-4.5) mg/dL Magnesium 1.7 (1.6-2.3) mg/dL Total Bilirubin 1.5 H (0.2-1.3) mg/dL AST 23 (14-36) U/L ALT 16 (6-35) U/L Alkaline Phosphatase 72 (38-126) U/L Total Creatine Kinase 24 L Cancelled (30-135) U/L Total Protein 8.0 (6.3-8.2) g/dL Albumin 4.9 (3.5-5.1) g/dL Lipase 65 (23-300) U/L Beta-Hydroxybutyrate/Acetoacetate 9.32 H (0.02-0.27) mmol/L Urine Color Yellow (Yellow) Urine Appearance Clear (Clear) Urine pH 5.5 (5.0-9.0) Ur Specific [place] 1.028 (1.001-1.035) Urine Protein 1+ H (Negative) mg/dL Urine Glucose (UA) 3+ H (Negative) mg/dL Urine Ketones 4+ H (Negative) mg/dL Ur Blood (Man) Trace (Negative) Urine Nitrate Negative (Negative) Urine Bilirubin Negative (Negative) Urine Urobilinogen 0.2 (<2.0) mg/dL Leukocyte Esterase Rfl Negative (Negative) [place]/UL Urine RBC 0-2 (0-2) /hpf Urine WBC 0-5 (0-3) /hpf Ur Squamous Epith Cells None seen (Few) /hpf Urine Bacteria None seen /hpf Urine Casts 0-2 POC Urine HCG, Qual (Negative) 08/02/24 08/02/24 08/02/24 Range/Units 15:17 16:10 17:58 WBC (4.5-10.0) K/mm3 RBC (4.2-5.4) M/mm3 Hgb (12.0-15.0) g/dL Hct (37.0-47.0) % MCV (80-100) fl MCH (26-34) pg MCHC (32-36) g/dl RDW (11.5-14.5) % Plt Count (150-375) k/mm3 MPV (7.4-10.4) fl Immature Gran % (Auto) (0-0.5) % Neut % (Auto) (45.5-73.1) % Lymph % (Auto) (18.3-44.2) % [place] % (Auto) (2.6-8.5) % Eos % (Auto) (0-4.4) % Baso % (Auto) (0.2-1.2) % Lymph # (Auto) (0.9-3.2) K/mm3 [place] # (Auto) (0.1-0.6) K/mm3 Eos # (Auto) (0-0.3) K/mm3 Baso # (Auto) (0.0-0.1) K/mm3 Abs Immat Gran (auto) (0.00-0.031) K/mm3 Absolute Neuts (auto) (1.3-6.7) K/mm3 Absolute Nucleated RBC (0.0-0.012) K/mm3 Nucleated RBC % (0.0-0.2) % Sodium (137-145) mmol/L Potassium (3.4-5.0) mmol/L Chloride (98-107) mmol/L Carbon Dioxide (22-30) mmol/L Anion Gap (4-12) mmol/L BUN (7-17) mg/dL Creatinine (0.7-1.0) mg/dL Estim Creat Clear Calc ml/min Estimated GFR (59 - ) Glucose (65-110) mg/dL POC Capillary Glucose 394 H (65-105) mg/dl Hemoglobin A1c (<5.7) % Lactic Acid 1.8 (0.7-2.0) mmol/L Calcium (8.4-10.2) mg/dL Phosphorus (2.5-4.5) mg/dL Magnesium (1.6-2.3) mg/dL Total Bilirubin (0.2-1.3) mg/dL AST (14-36) U/L ALT (6-35) U/L Alkaline Phosphatase (38-126) U/L Total Creatine Kinase (30-135) U/L Total Protein (6.3-8.2) g/dL Albumin (3.5-5.1) g/dL Lipase (23-300) U/L Beta-Hydroxybutyrate/Acetoacetate (0.02-0.27) mmol/L Urine Color (Yellow) Urine Appearance (Clear) Urine pH (5.0-9.0) Ur Specific [place] (1.001-1.035) Urine Protein (Negative) mg/dL Urine Glucose (UA) (Negative) mg/dL Urine Ketones (Negative) mg/dL Ur Blood (Man) (Negative) Urine Nitrate (Negative) Urine Bilirubin (Negative) Urine Urobilinogen (<2.0) mg/dL Leukocyte Esterase Rfl (Negative) [place]/UL Urine RBC (0-2) /hpf Urine WBC (0-3) /hpf Ur Squamous Epith Cells (Few) /hpf Urine Bacteria /hpf Urine Casts POC Urine HCG, Qual Negative (Negative) <Alex Prakash MD - Last Filed: 08/02/24 22:37> ABG Data ABG results: 08/02/24 16:11 VBG pH 7.291 L VBG pCO2 32.0 L VBG pO2 < 27.0 L VBG HCO3 15.1 L O2 Delivery Device Room air O2 Liters/Min Not Reportable FiO2 21 <Meg Farmer PA-C - Last Filed: 08/02/24 19:17> 08/02/24 16:11 VBG pH 7.291 L VBG pCO2 32.0 L VBG pO2 < 27.0 L VBG HCO3 15.1 L O2 Delivery Device Room air O2 Liters/Min Not Reportable FiO2 21 <Alex Prakash MD - Last Filed: 08/02/24 22:37> Attestation: I personally reviewed and interpreted this ABG as follows: <Meg Farmer PA-C - Last Filed: 08/02/24 19:17> Imaging Data Attestation: I personally reviewed and interpreted this imaging study as follows: <Meg Farmer PA-C - Last Filed: 08/02/24 19:17> Radiologist's impression: ITS Impressions Abdomen/Pelvis CT 08/02/24 16:51 IMPRESSION: Mild irregularity renal outline suggesting bilateral chronic pyelonephritis Normal appendix No acute abnormality is identified <Meg Farmer PA-C - Last Filed: 08/02/24 19:17> ITS Impressions Abdomen/Pelvis CT 08/02/24 16:51 IMPRESSION: Mild irregularity renal outline suggesting bilateral chronic pyelonephritis Normal appendix No acute abnormality is identified <Alex Prakash MD - Last Filed: 08/02/24 22:37> ECG Data EKG #1: Attestation: I personally reviewed and interpreted this ECG as follows: <Meg Farmer PA-C - Last Filed: 08/02/24 19:17> ECG completion date: 08/02/24 <ALLISON Saini Last Filed: 08/02/24 19:17> ECG completion time: 15:15 <Meg Farmer PA-C - Last Filed: 08/02/24 19:17> tachycardia (113), sinus rhythm, no ST changes and other (short PA, borderline prolonged QTC (479)) <Meg Farmer PA-C - Last Filed: 08/02/24 19:17> Critical Care Time Critical Care Time Critical Care Time: Yes <Alex Prakash MD - Last Filed: 08/02/24 22:37> Total Critical Care Time: 35 <Alex Prakash MD - Last Filed: 08/02/24 22:37> Discharge Plan Discharge Clinical Impression: DKA (diabetic ketoacidosis), Prolonged QT interval, Nausea and vomiting <Meg Farmer PA-C - Last Filed: 08/02/24 19:17> Patient Disposition: Still a Patient <Meg Farmer PA-C - Last Filed: 08/02/24 19:17> Condition: Serious <Meg Farmer PA-C - Last Filed: 08/02/24 19:17> Time of Disposition: 18:42 <Meg Farmer PA-C - Last Filed: 08/02/24 19:17> 18:42 <Alex Prakash MD - Last Filed: 08/02/24 22:37>
--- NOTE | 2024-08-02 14:55 | ECG_ITS ---
Test Date: 2024-08-02 15:15:06 Measurements Intervals [place] Rate: 113 P: 70 [place]: 108 QRS: -12 QRSD: 81 T: 43 QT: 348 QTc: 479 Interpretive Statements SINUS TACHYCARDIA WITH SHORT OH INTERVAL ABNORMAL RHYTHM ECG Electronically Signed On 08-03-2024 12:42:52 [employer] WORKROOM CLERK by Cornelio Cabello M.D.
[2024-08-02 15:01] VITALS: BP 109/76; PULSE 73; RESP 20; O2SAT 100
[2024-08-02 15:19] LABS: Basophils Absolute Auto 0.1 K/mm3 (0.0-0.1); Basophils Percent Auto 0.3 % (0.2-1.2); Hematocrit 39.9 % (37.0-47.0); Hemoglobin 13.1 g/dL (12.0-15.0); Immature Granulocyte Absolute 0.13 K/mm3 (0.00-0.031); Immature Granulocyte Percent A 0.6 % (0-0.5); Lymphocytes Absolute Auto 1.22 K/mm3 (0.9-3.2); Lymphocytes Percent Auto 5.3 % (18.3-44.2); Mean Corpuscular HGB Conc 32.8 g/dl (32-36); Mean Corpuscular Hemoglobin 26.7 pg (26-34); Mean Corpuscular Volume 81.4 fl (80-100); Mean Platelet Volume 9.7 fl (7.4-10.4); Monocytes Absolute Auto 0.8 K/mm3 (0.1-0.6); Monocytes Percent Auto 3.4 % (2.6-8.5); Neutrophils Absolute Auto 20.8 K/mm3 (1.3-6.7); Neutrophils Percent Auto 90.4 % (45.5-73.1); Platelet Count Result 378 k/mm3 (150-375); Red Cell Distribution Width 13.8 % (11.5-14.5)
[2024-08-02 15:19] LABS: BEDSIDEPREGUCG Negative (Negative)
[2024-08-02] MEDS: diphenhydrAMINE HCl INJ 50 MG/ML VIAL 25 MG IV PUSH ×2 (15:22→20:56)
[2024-08-02] MEDS: SODIUM CHLORIDE 0.9% IV 1,000 ML 999 ML IV CONT ×3 (15:22→17:16)
[2024-08-02] MEDS: METOCLOPRAMIDE HCL INJ 10 MG/2 ML VIAL IV PUSH (15:22)
[2024-08-02] MEDS: FAMOTIDINE 20 MG/2 ML VIAL IV PUSH (15:23)
[2024-08-02 15:25] LABS: Add Urine Microscopic? YES; Appearance Urine Clear (Clear); Bacteria Urine None Seen /hpf; Bilirubin Urine Negative (Negative); Blood Urine Trace (Negative); Color Urine Yellow (Yellow); Glucose Urine UA 3+ mg/dL (Negative); Ketones Urine 4+ mg/dL (Negative); Leukocyte Esterase Ur Negative LEU/UL (Negative); Nitrate Urine Negative (Negative); Non Pathogenic Casts 0-2; Protein Urine 1+ mg/dL (Negative); RBC Urine 0-2 /hpf (0-2); Specific Grav Ur 1.028 (1.001-1.035); Squamous Epithelial Cell Urine None Seen /hpf (Few); Urobilinogen Urine 0.2 mg/dL (<2.0); WBC Urine 0-5 /hpf (0-3); pH Urine 5.5 (5.0-9.0)
[2024-08-02 15:32] LABS: Alanine Aminotransferase 16 U/L (6-35); Albumin Level 4.9 g/dL (3.5-5.1); Alkaline Phosphatase 72 U/L (38-126); Anion Gap 27 mmol/L (4-12); Aspartate Amino Transferase 23 U/L (14-36); Bilirubin,Total 1.5 mg/dL (0.2-1.3); Blood Urea Nitrogen 24 mg/dL (7-17); Calcium 9.4 mg/dL (8.4-10.2); Carbon Dioxide 13 mmol/L (22-30); Chloride 90 mmol/L (98-107); Creatine Kinase 24 U/L (30-135); Estimated CRCL calculation 66 ml/min; Estimated Glomerular Filt Rate > 60; Glucose 431 mg/dL (65-110); Lipase 65 U/L (23-300); Magnesium 1.7 mg/dL (1.6-2.3); Potassium 3.6 mmol/L (3.4-5.0); Sodium 130 mmol/L (137-145)
[2024-08-02] MEDS: MAGNESIUM SULF 2 GM/WATER 50ML 2 GM/50 ML BAG IVPB (16:15)
[2024-08-02 16:16] LABS: Phosphorus 4.8 mg/dL (2.5-4.5)
[2024-08-02 16:16] LABS: Fractional Inspired Oxygen 21 %; HCO3 VBG 15.1 mEq/l (24.0-30.0); PO2 VBG < 27.0 mmHg (35.0-45.0); pH VBG 7.291 (7.300-7.400)
[2024-08-02 16:17] LABS: Device ROOM AIR
[2024-08-02 16:33] LABS: Lactic Acid Reflex 1.8 mmol/L (0.7-2.0)
[2024-08-02 17:36] LABS: Beta-Hydroxybutyrate/Acetoacetate 9.32 mmol/L (0.02-0.27)
[2024-08-02 18:02] LABS: Glucose Point of Care 394 mg/dl (65-105)
[2024-08-02] MEDS: MORPHINE SULFATE (*CRX) 4 MG/ML INJ IV PUSH (18:02)
[2024-08-02] MEDS: INSULIN HUMAN REGULAR (*BKC) 100 UNITS in SODIUM CHLORIDE 0.9% IV 99 ML 7 UNITS IV CONT (18:06)
[2024-08-02 18:07] LABS: Hemoglobin A1C 7.7 % (<5.7)
[2024-08-02 18:11] VITALS: BP 133/79; PULSE 121; RESP 20; O2SAT 100
[2024-08-02 19:32] VITALS: BP 136/86; PULSE 120; RESP 18; O2SAT 100
[2024-08-02] MEDS: SCOPOLAMINE 1 MG PATCH 1 PATCH TRANSDERM (19:36)
--- NOTE | 2024-08-02 19:59 | P.HP_ITS ---
H&P: HPI History of Present Illness Date/Time: 08/02/24 19:59 Chief Complaint: Nausea, Vomiting, Abdominal Pain Narrative: 39 y/o F presents here with nausea, vomiting, and abdominal pain with PMH of type 1 diabetes, previous history of DKA, gastroparesis, hyperlipidemia, diabetic neuropathy and elevated liver enzymes. The patient presents here via EMS from home for further evaluation of nausea, vomiting, and abdominal pain. She reports onset approximately 6 days ago. Initially seen at [facility] for same complaints early in the evening on 07/30. Then went to [place] ER on same day (07/30) for nausea and vomiting. UA and CT were unremarkable. She was discharged at that time and educated on cannabinoid hyperemesis syndrome and encouraged to follow a clear liquid diet. Then return to [place] ER on 07/31/2024 for same complaints. Patient was treated with Benadryl and Haldol which resolved her nausea and vomiting. Discharged with ibuprofen, Tylenol, promethazine suppository, and Maalox to manage her symptoms at home. After returning home she was unable to tolerate PO. The patient has a history of chronic abdominal pain, gastroparesis for which she takes Zofran and Reglan at home, and follows with GI. She returned today due to recurrence/persistence of nausea and vomiting. Reports that she has been unable to keep food or drink down over the last 6 days. She reports that she has not smoked marijuana since onset of symptoms, last use around 6-8 days ago. Continues to have diffuse abdominal pain which she describes as squeezing, nonradiating, constant initially and now intermittent with increased pain management, no aggravating factors, and alleviated by hot baths. Patient is also reporting constipation with last bowel movement approximately 4-5 days ago. Patient has known type 1 diabetes. Glucose levels became elevated today. She reports associated polyuria, polydipsia, dry mouth, increased hunger, and fatigue. Denies blurred vision. She currently has an insulin pump in place, was removed in the ED. Pod tubing looked abnormal (kinked), raising concerns for pump failure. Has associated history of DKA with last occurrence in mid Jun., seen here. Initial VS at presentation: 97.6? F, HR 112, RR 20, 130/98, and 99% on RA. ED workup showed: WBC 23, no anemia, platelet count 378, VBG showed pH of 7.291, sodium 130 (when corrected for hyperglycemia, 138), anion gap 27, initial glucose 434, CK 24, beta hydroxy 9.32. UA showed 1+ Ki protein, 3+ glucose, 4+ ketones, otherwise unremarkable. CT of the abdomen/pelvis showed mild irregularity renal outline suggesting bilateral chronic pyelonephritis, normal appendix, no acute abnormality identified. Review of Systems Review of Systems: All systems reviewed & are unremarkable except as noted in HPI and below [facility] Past Medical History Medical History (Updated 08/02/24 @ 22:28 by Bebe Parada APRN) Bipolar disorder Cannabinoid hyperemesis syndrome Depression Diabetic neuropathy DKA (diabetic ketoacidoses) multiple Elevated liver enzymes Esophageal varices 04/2024 Gastroparesis GERD with esophagitis Hyperlipidemia Migraine Type 1 diabetes mellitus Diagnosed at the age of 7. Hemoglobin A1c was 10.8% on 08/09/2020. Surgical History Surgical History History of 3 sections History of gynecological procedure 04/29/2020- mirena iud insertion - 10/23/2021 mirena iud removal -nm Family History Family History Grandparent Breast cancer Father Diabetes mellitus Other Hypertension Social History Social History Smoking packs per day: 1 Smoking cigarettes per day: 20.0 Years smoked: 20 Smoking pack-years: 20.00 Smoking status: Current every day smoker Tobacco type: cigarettes Second hand tobacco smoke exposure: Yes Alcohol intake: never Drinks per week: 20 Alcohol use details: occasional Substance use: current Substance use type: marijuana Last use: 07/25/24 Do You Feel Safe in your Home?: Yes Lack of Transportation: No Lack of Food: Never True Current Housing: I Have Housing Concerned About Future Housing: No Difficulty Paying Gas/Electric Bills: No Difficulty Paying for Meds: No Currently Unemployed: No Education: High School Diploma/GED Difficulty w/ Childcare or Family Care: No Living arrangements: with family Occupation/Education: unemployed Additional occupation/education comments: not currently working Gender identity (if verbalized by the patient): Female Sexual Orientation (if Verbalized by the Patient): Straight or Heterosexual Spiritual care concerns: No Meds Home Medications and Allergies Home Medications Medication Instructions Recorded Confirmed Type folic acid 1 mg tablet 1 mg PO DAILY #90 tabs 01/09/24 08/02/24 Rx insulin pump cart,auto,BT,G6/7 #30 ea 01/09/24 08/02/24 Rx (Omnipod 5 G6-G7 Pods (Gen 5) subcutaneous cartridge) insulin pump cartridge,auto #1 ea 01/09/24 08/02/24 Rx dose,BT,G6/G7 with controller subcutaneous (Omnipod 5 G6-G7 Intro Kit(Gen 5) subcutaneous cartridge and controller) cholecalciferol (vitamin D3) 50 50 mcg PO DAILY #90 caps 01/17/24 08/02/24 Rx mcg (2,000 unit) capsule gabapentin 300 mg capsule 300 mg PO QHS #90 caps 01/17/24 08/02/24 Rx lisinopril 2.5 mg tablet 2.5 mg PO DAILY #90 tabs 01/30/24 08/02/24 Rx insulin pump cartridge,auto #1 ea 05/14/24 08/02/24 Rx dose,BT,G6/G7 with controller subcutaneous blood-glucose sensor (Dexcom G6 #9 ea 06/02/24 08/02/24 Rx Sensor device) glucagon 1 mg/0.2 mL subcutaneous 1 mg (0.2 mL) subcut ONCE #0.4 mL 06/02/24 08/02/24 Rx auto-injector (Gvoke HypoPen 2-Pack) glucose 4 gram chewable tablet 16 g PO Q15M PRN hypoglycemia #360 06/02/24 08/02/24 Rx tabs insulin lispro 100 unit/mL See Rx Instructions subcut PRN 06/02/24 08/02/24 Rx subcutaneous solution insulin pump #60 mL insulin pump cart,auto,BT,G6/7 #45 ea 06/02/24 08/02/24 Rx pantoprazole 40 mg tablet,delayed 40 mg PO Q12H #180 tabs 07/01/24 08/02/24 Rx release sucralfate 100 mg/mL oral 1 g (10 mL) PO Q6H #1,000 mL 07/01/24 08/02/24 Rx suspension mecobalamin (vitamin B12) 500 mcg 500 mcg PO DAILY 07/15/24 08/02/24 History chewable tablet metoclopramide HCl 10 mg tablet 10 mg PO Q6H 07/15/24 08/02/24 History multivitamin 1 tablet PO DAILY 07/15/24 08/02/24 History ondansetron 4 mg disintegrating 4 mg PO BID PRN nausea and 07/15/24 08/02/24 Rx tablet vomiting #20 tabs potassium gluconate 2 mEq tablet 2 meq PO DAILY 07/15/24 08/02/24 History acetaminophen 500 mg capsule 1,000 mg PO Q6H PRN pain #30 caps 07/31/24 08/02/24 Rx aluminum-mag hydroxide-simethicone 10 ml PO TID PRN indigestion 07/31/24 08/02/24 Rx 400 mg-400 mg-40 mg/5 mL oral susp #3,000 mL (Liquid Antacid) ibuprofen 600 mg tablet 600 mg PO TID PRN pain #30 tabs 07/31/24 08/02/24 Rx promethazine 25 mg rectal 25 mg RECTAL Q6H PRN nausea and 07/31/24 08/02/24 Rx suppository vomiting #12 ea melatonin 10 mg tablet 10 mg PO HS PRN Insomnia 08/02/24 08/02/24 History Allergies Allergy/AdvReac Type Severity Reaction Status Date / Time No Known Allergies Allergy Verified 08/02/24 12:23 Vital Signs Vital Signs - 24 hr 08/02/24 12:21 08/02/24 15:01 08/02/24 18:11 Temperature 97.6 F Pulse Rate 112 H 73 121 H Respiratory Rate 20 20 20 Blood Pressure 130/98 H 109/76 133/79 Pulse Oximetry 99 100 100 Oxygen Delivery Room Air 08/02/24 19:32 Temperature Pulse Rate 120 H Respiratory Rate 18 Blood Pressure 136/86 Pulse Oximetry 100 Oxygen Delivery Exam Const: General: no acute distress and uncomfortable Other: , female, moderately ill-appearing HENMT: Face/Nose/Sinus: Normal nares present Mouth: Yes dry mucous membranes (scant moisture noted) Eyes: General: appearance normal, both eyes and all related structures Sclera: sclerae normal Pupils: Equal, round and reactive pupils present EOM: EOMs intact bilaterally Resp: Effort & Inspection: normal respiratory effort Auscultation: clear to auscultation bilaterally Cardio: Rate: regular rate Rhythm: regular rhythm Other: S1-S2 present without murmur, rub, ectopy GI: Other: Midline tenderness in the upper, mid, and lower regions. No lateral tenderness. Abdomen soft and nondistended. Normoactive bowel sounds in all quadrants. Skin: General skin exam: normal color and no rashes or lesions noted Wounds: no wounds Neuro: Speech: normal speech Motor exam (neuro): 5/5 motor strength present throughout Sensory Exam: normal sensation Other: A&O x4 Extrem: General: normal to inspection Psych: Mental Status: mental status grossly normal Affect: normal affect Other: good insight and judgment, pleasant H&P: Results Labs Labs: Short CBC 08/02/24 Range/Units 15:12 WBC 23.0 H (4.5-10.0) K/mm3 Hgb 13.1 (12.0-15.0) g/dL Hct 39.9 (37.0-47.0) % Plt Count 378 H (150-375) k/mm3 BMP 08/02/24 15:12 Sodium 130 L Potassium 3.6 Chloride 90 L Carbon Dioxide 13 L BUN 24 H D Creatinine 1.00 Glucose 431 H Calcium 9.4 Cardiac Enzymes 08/02/24 08/02/24 Range/Units 15:12 15:12 Total Creatine Kinase 24 L Cancelled (30-135) U/L Liver Function 08/02/24 Range/Units 15:12 Total Bilirubin 1.5 H (0.2-1.3) mg/dL AST 23 (14-36) U/L ALT 16 (6-35) U/L Alkaline Phosphatase 72 (38-126) U/L Albumin 4.9 (3.5-5.1) g/dL Urine 08/02/24 Range/Units 15:12 Urine Color Yellow (Yellow) Urine Appearance Clear (Clear) Urine pH 5.5 (5.0-9.0) Ur Specific [place] 1.028 (1.001-1.035) Urine Protein 1+ H (Negative) mg/dL Urine Glucose (UA) 3+ H (Negative) mg/dL Assessment and Plan Assessment and plan (1) DKA (diabetic ketoacidosis): Qualifiers: Diabetes mellitus complication detail: without coma Diabetes mellitus type: type 1 Qualified Code(s): E10.10 - Type 1 diabetes mellitus with ketoacidosis without coma Code(s): E11.10 - Type 2 diabetes mellitus with ketoacidosis without coma Status: Acute Assessment and Plan: - history of type 1 diabetes - initial glucose 434 - glucose Q1H while on gtt - labs: WBC 23, pH on VBG 7.291, potassium 3.6, anion gap 27, creatinine 1.0 and GFR >60, phosphorus 4.8, magnesium 1.7, beta hydroxy 9.32, A1c 7.7%, lactic 1.8 - trend BMP Q4H, repeat Mag, VBG, and Phos in a.m. - DKA protocol initiated modification (K 3.2): substitute 20 mEq/D5/0.45 NS at 150 mL/hr for BS less than 250 -> 40 mEq/D5/0.45 NS at 150 mL/hr for BS less than 250 - IV fluids: given 3L bolus in ED - insulin gtt currently running at 7.5 u/hr, transition to SC insulin once anion gap closed - NPO - home medications: Pump currently discontinued - client relationship executive consulted with admission to the ICU - environmental educator consulted - appliance service technician consulted Patient had insulin pump in place. Discontinued in the emergency department. Upon patient's assessment, she reported the needle/pin appeared abnormal raising concerns for possible pump failure. (2) Prolonged QT interval: Code(s): R94.31 - Abnormal electrocardiogram [ECG] [EKG] Status: Acute Assessment and Plan: - EKG, initial: Sinus tachycardia with short CA interval, QTC 479 - here with profuse nausea and vomiting First line scopolamine patch Second-line Benadryl IVP - repeat EKG in a.m. - telemetry monitoring (3) Type 1 diabetes mellitus: Qualifiers: Diabetes mellitus complication status: with hyperglycemia Qualified Code(s): E10.65 - Type 1 diabetes mellitus with hyperglycemia Code(s): E10.9 - Type 1 diabetes mellitus without complications Status: Acute Assessment and Plan: - see above (4) Gastroparesis: Code(s): K31.84 - Gastroparesis Status: Acute Assessment and Plan: - history of gastroparesis, cannabinoid hyperemesis syndrome, and esophagitis with associated chronic abdominal pain - CT abd/pelvis: Mild irregularity renal outline suggesting bilateral chronic pyelonephritis Normal appendix No acute abnormality is identified - PPI scheduled, Maalox p.r.n. - antiemetics p.r.n. Plan Low-dose lisinopril continued, on medication for renal protection. Diet: NPO GI Prophylaxis: Pantoprazole IVP DVT Prophylaxis: SCDs Lines: Peripheral Code Status: Full code Quality VTE Prophylaxis VTE prophylaxis: mechanical ordered Critical Care Time: I personally spent 45 minutes of direct patient care including (but not limited to) the physical examination, decision-making, bedside evaluation, review of medical records, review of labs and imaging, discussion with nursing staff and other providers for collaborative, critical care management of this patient. Hospitalist [facility] Advance Care Plan I have confirmed that the patient's Advanced Care Plan is present, code status is documented, or surrogate decision maker is listed in patient medical record.: Yes Medication Reconciliation I have utilized all available resources to obtain, update and review the patients current medications (includes all prescriptions, OTC, herbals, cannabis, and nutritional supplements).: Yes
--- NOTE | 2024-08-02 19:59 | PC.NURSE ---
patient glucose finger stick 256 at this time.
[2024-08-02 20:01] LABS: Glucose Point of Care 256 mg/dl (65-105)
[2024-08-02 20:09] VITALS: BMI 26.6
--- NOTE | 2024-08-02 20:10 | PC.NURSE ---
This patient, Tara Hinkle, was admitted to Intensive Care Unit-5. Patient/family oriented to hospital policies and general routines including ID bracelet, bed and alarms, visiting hours, pain management, procedures, bathroom and other care routines, personal items, smoking policy, room service/diet, and visiting hours. Information on how to activate the Rapid Response Team has been discussed. Patient/Family are encouraged to report perceived risks to care and to ask questions if they do not understand what they are told or what they should do.
[2024-08-02 20:15] VITALS: BP 127/73; PULSE 116; RESP 18; TEMP 36.5; O2SAT 100
[2024-08-02] MEDS: SODIUM CHLORIDE 0.9% IV 1,000 ML 150 ML IV CONT (21:01)
[2024-08-02 21:04] LABS: Glucose Point of Care 179 mg/dl (65-105)
[2024-08-02 21:10] LABS: Anion Gap 22 mmol/L (4-12); Blood Urea Nitrogen 22 mg/dL (7-17); Calcium 7.8 mg/dL (8.4-10.2); Carbon Dioxide 10 mmol/L (22-30); Chloride 99 mmol/L (98-107); Estimated CRCL calculation 65 ml/min; Estimated Glomerular Filt Rate > 60; Glucose 155 mg/dL (65-110); Potassium 3.2 mmol/L (3.4-5.0); Sodium 131 mmol/L (137-145)
[2024-08-02 22:00] VITALS: BP 132/77; PULSE 103; RESP 20; O2SAT 100
[2024-08-02] MEDS: KCL 40 MEQ/D5 1/2NS 1,000 ML 150 ML IV CONT (22:01)
[2024-08-02 22:06] LABS: Glucose Point of Care 122 mg/dl (65-105)
[2024-08-02 23:07] LABS: Glucose Point of Care 132 mg/dl (65-105)
[2024-08-03] VITALS (10 sets, daily range): BP systolic 105–180; BP diastolic 64–97; PULSE 83–105; RESP 12–20; TEMP 36.6–37.1; O2SAT 95–100; BMI 26.6
[2024-08-03 00:12] LABS: Glucose Point of Care 148 mg/dl (65-105)
[2024-08-03 00:20] LABS: MRSA (PCR) NOT DETECTED (NOT DETECTE)
[2024-08-03] MEDS: diphenhydrAMINE HCl INJ 50 MG/ML VIAL 25 MG IV PUSH ×5 (00:37→21:35)
[2024-08-03 01:05] LABS: Glucose Point of Care 165 mg/dl (65-105)
[2024-08-03 01:09] LABS: Anion Gap 15 mmol/L (4-12); Blood Urea Nitrogen 18 mg/dL (7-17); Calcium 7.8 mg/dL (8.4-10.2); Carbon Dioxide 13 mmol/L (22-30); Chloride 102 mmol/L (98-107); Estimated CRCL calculation 72 ml/min; Estimated Glomerular Filt Rate > 60; Glucose 143 mg/dL (65-110); Potassium 3.7 mmol/L (3.4-5.0); Sodium 130 mmol/L (137-145)
[2024-08-03] MEDS: MORPHINE SULFATE (*CRX) 4 MG/ML INJ IV PUSH (01:13)
[2024-08-03 02:08] LABS: Glucose Point of Care 191 mg/dl (65-105)
[2024-08-03 03:15] LABS: Glucose Point of Care 216 mg/dl (65-105)
[2024-08-03 04:00] LABS: Basophils Absolute Auto 0.1 K/mm3 (0.0-0.1); Basophils Percent Auto 0.4 % (0.2-1.2); Eosinophils Absolute Auto 0.1 K/mm3 (0-0.3); Eosinophils Percent Auto 0.4 % (0-4.4); Hematocrit 34.6 % (37.0-47.0); Immature Granulocyte Absolute 0.06 K/mm3 (0.00-0.031); Immature Granulocyte Percent A 0.4 % (0-0.5); Lymphocytes Absolute Auto 1.82 K/mm3 (0.9-3.2); Lymphocytes Percent Auto 13.2 % (18.3-44.2); Mean Corpuscular HGB Conc 31.8 g/dl (32-36); Mean Corpuscular Hemoglobin 26.4 pg (26-34); Mean Platelet Volume 9.9 fl (7.4-10.4); Monocytes Absolute Auto 1.3 K/mm3 (0.1-0.6); Monocytes Percent Auto 9.6 % (2.6-8.5); Neutrophils Absolute Auto 10.5 K/mm3 (1.3-6.7); Platelet Count Result 331 k/mm3 (150-375); Red Blood Count 4.17 M/mm3 (4.2-5.4); White Blood Count 13.8 K/mm3 (4.5-10.0)
[2024-08-03 04:10] LABS: Glucose Point of Care 195 mg/dl (65-105)
[2024-08-03 04:28] LABS: Anion Gap 16 mmol/L (4-12); Blood Urea Nitrogen 15 mg/dL (7-17); Calcium 7.6 mg/dL (8.4-10.2); Carbon Dioxide 12 mmol/L (22-30); Chloride 101 mmol/L (98-107); Estimated CRCL calculation 72 ml/min; Estimated Glomerular Filt Rate > 60; Glucose 199 mg/dL (65-110); Potassium 3.8 mmol/L (3.4-5.0); Sodium 129 mmol/L (137-145)
[2024-08-03] MEDS: KCL 40 MEQ/D5 1/2NS 1,000 ML 150 ML IV CONT ×2 (04:33→11:48)
[2024-08-03 05:20] LABS: Glucose Point of Care 237 mg/dl (65-105)
[2024-08-03 05:26] LABS: Phosphorus 2.8 mg/dL (2.5-4.5)
--- NOTE | 2024-08-03 06:00 | ECG_ITS ---
Test Date: 2024-08-03 05:25:52 Measurements Intervals [place] Rate: 98 P: 61 TN: 145 QRS: -8 QRSD: 81 T: 30 QT: 363 QTc: 464 Interpretive Statements SINUS RHYTHM Compared to ECG 08/02/2024 15:15:06 Sinus tachycardia no longer present Short TN interval no longer present Electronically Signed On 08-03-2024 12:53:06 AIRLINE MANAGER by Cornelio Cabello M.D.
[2024-08-03 06:32] LABS: Glucose Point of Care 209 mg/dl (65-105)
[2024-08-03] MEDS: ONDANSETRON INJ 4 MG/2 ML VIAL IV PUSH ×3 (06:41→21:38)
[2024-08-03 07:17] LABS: Glucose Point of Care 213 mg/dl (65-105)
[2024-08-03 08:08] LABS: Glucose Point of Care 215 mg/dl (65-105)
[2024-08-03] MEDS: PANTOPRAZOLE SODIUM IV 40 MG VIAL IV PUSH (08:17)
[2024-08-03 08:21] LABS: Anion Gap 13 mmol/L (4-12); Blood Urea Nitrogen 13 mg/dL (7-17); Calcium 8.1 mg/dL (8.4-10.2); Carbon Dioxide 18 mmol/L (22-30); Chloride 100 mmol/L (98-107); Estimated CRCL calculation 82 ml/min; Estimated Glomerular Filt Rate > 60; Glucose 210 mg/dL (65-110); Potassium 3.9 mmol/L (3.4-5.0); Sodium 131 mmol/L (137-145)
--- NOTE | 2024-08-03 08:38 | P.CONIN_ITS ---
Assessment and Plan Assessment and plan (1) DKA (diabetic ketoacidosis): Qualifiers: Diabetes mellitus complication detail: without coma Diabetes mellitus type: type 1 Qualified Code(s): E10.10 - Type 1 diabetes mellitus with ketoacidosis without coma Code(s): E11.10 - Type 2 diabetes mellitus with ketoacidosis without coma Status: Acute Assessment and Plan: Pt was given IVF bolus and started on infusion Insulin infusion will be continued Q1H glucose monitoring is being done Serial labs are being done Replace electrolytes as needed Will transition to SC insulin once AG is closed Consult for certified lactation educator and dietitian CT scan and UA on remarkable for infection (2) Nausea and vomiting: Qualifiers: Vomiting type: unspecified Qualified Code(s): R11.2 - Nausea with vomiting, unspecified Code(s): R11.2 - Nausea with vomiting, unspecified Status: Acute Assessment and Plan: Patient has history of chronic nausea vomiting and has history of cannabinoid hyperemesis syndrome and gastroparesis Patient smokes marijuana 2-3 times daily and is not interested in cutting down Start Zofran while monitoring QTC interval npo Scopolamine patch ordered Change marijuana to allotted (3) Prolonged QT interval: Code(s): R94.31 - Abnormal electrocardiogram [ECG] [EKG] Status: Acute Assessment and Plan: Patient had prolonged QTC on initial EKG. Likely secondary to medications. EKG done this morning shows resolution of QTC interval. Will continue to monitor before giving additional doses (4) Gastroparesis: Code(s): K31.84 - Gastroparesis Status: Acute Assessment and Plan: Start Reglan Plan DVT prophylaxis -SCD Stress ulcer prophylaxis -PPI Nutrition - npo Code Status - Full Code Total Critical Care Time - 35 minutes Due to a high probability of clinically significant, life threatening deterioration, the patient required my highest level of preparedness to intervene emergently and I personally spent this critical care time directly and personally managing the patient. This critical care time included obtaining a history; examining the patient; pulse oximetry; ordering and review of studies; arranging urgent treatment with development of a management plan; evaluation of patient's response to treatment; frequent reassessment; and discussions with other providers. It was exclusive of separately billable procedures and treating other patients and teaching time. Please see Assessment and Plan section and the rest of the note for further information on patient assessment and treatment Sales Promotion Representative Consult Note Consult date: 08/03/24 Reason for consult: DKA, nausea vomiting HPI: Tara Hinkle is a 39 year old female with PMH of type 1 diabetes, previous history of DKA, frequent ER visits and admissions, gastroparesis, hyperlipidemia, diabetic neuropathy and elevated liver enzymes presented yesterday with chief complaint of nausea vomiting abdominal pain that has been going on for 4-5 days. Apparently patient was Initially seen at [facility] for same complaints early in the evening on 07/30. Then she went to [facility] ER on same day (07/30) for nausea and vomiting. Her workup was unremarkable and she was discharged at that time and educated on cannabinoid hyperemesis syndrome and encouraged to follow a clear liquid diet. Patient returned to [facility] ER on 07/31/2024 for same complaints. She states from last 4-5 days she has been having significant nausea vomiting and unable to eat or drink anything. She has a insulin pump on which she is not sure if working properly or not. She did not had any in chest pain shortness a breath cough wheezing. She had some abdominal pain which is intermittent crampy quality no radiation. She denies any diarrhea or constipation. No dysuria hematuria vaginal bleeding hematochezia melena. She states that she is now having some sore throat because of constant dry heaving and vomiting. All other systems were reviewed and were negative. Initial VS at presentation: 97.6? F, HR 112, RR 20, 130/98, and 99% on RA. ED workup showed: WBC 23, no anemia, platelet count 378, VBG showed pH of 7.291, sodium 130 (when corrected for hyperglycemia, 138), anion gap 27, initial glucose 434, CK 24, beta hydroxy 9.32. UA showed 1+ Ki protein, 3+ glucose, 4+ ketones, otherwise unremarkable. CT of the abdomen/pelvis showed mild irregularity renal outline suggesting bilateral chronic pyelonephritis, normal appendix, no acute abnormality identified. Patient was admitted with DKA and started on IV fluids and IV insulin. She did not receive significant amount of antiemetics due to her prolonged QTC on initial EKG which has now resolved. Review of Systems Review of Systems: All systems reviewed & are unremarkable except as noted in HPI and below (HPI) [facility] Past Medical History Medical History Bipolar disorder Cannabinoid hyperemesis syndrome Depression Diabetic neuropathy DKA (diabetic ketoacidoses) multiple Elevated liver enzymes Esophageal varices 04/2024 Gastroparesis GERD with esophagitis Hyperlipidemia Migraine Type 1 diabetes mellitus Diagnosed at the age of 7. Hemoglobin A1c was 10.8% on 08/09/2020. Surgical History Surgical History History of 3 sections History of gynecological procedure 04/29/2020- mirena iud insertion - 10/23/2021 mirena iud removal -nm Family History Family History Grandparent Breast cancer Father Diabetes mellitus Other Hypertension Social History Social History Smoking packs per day: 1 Smoking cigarettes per day: 20.0 Years smoked: 20 Smoking pack-years: 20.00 Smoking status: Current every day smoker Tobacco type: cigarettes Second hand tobacco smoke exposure: Yes Alcohol intake: never Drinks per week: 20 Alcohol use details: occasional Substance use: current Substance use type: marijuana Last use: 07/25/24 Do You Feel Safe in your Home?: Yes Lack of Transportation: No Lack of Food: Never True Current Housing: I Have Housing Concerned About Future Housing: No Difficulty Paying Gas/Electric Bills: No Difficulty Paying for Meds: No Currently Unemployed: No Education: High School Diploma/GED Difficulty w/ Childcare or Family Care: No Living arrangements: with family Occupation/Education: unemployed Additional occupation/education comments: not currently working Gender identity (if verbalized by the patient): Female Sexual Orientation (if Verbalized by the Patient): Straight or Heterosexual Spiritual care concerns: No Meds Home Medications and Allergies Home Medications Medication Instructions Recorded Confirmed Type folic acid 1 mg tablet 1 mg PO DAILY #90 tabs 01/09/24 08/02/24 Rx insulin pump cart,auto,BT,G6/7 #30 ea 01/09/24 08/02/24 Rx (Omnipod 5 G6-G7 Pods (Gen 5) subcutaneous cartridge) insulin pump cartridge,auto #1 ea 01/09/24 08/02/24 Rx dose,BT,G6/G7 with controller subcutaneous (Omnipod 5 G6-G7 Intro Kit(Gen 5) subcutaneous cartridge and controller) cholecalciferol (vitamin D3) 50 50 mcg PO DAILY #90 caps 01/17/24 08/02/24 Rx mcg (2,000 unit) capsule gabapentin 300 mg capsule 300 mg PO QHS #90 caps 01/17/24 08/02/24 Rx lisinopril 2.5 mg tablet 2.5 mg PO DAILY #90 tabs 01/30/24 08/02/24 Rx insulin pump cartridge,auto #1 ea 05/14/24 08/02/24 Rx dose,BT,G6/G7 with controller subcutaneous blood-glucose sensor (Dexcom G6 #9 ea 06/02/24 08/02/24 Rx Sensor device) glucagon 1 mg/0.2 mL subcutaneous 1 mg (0.2 mL) subcut ONCE #0.4 mL 06/02/24 08/02/24 Rx auto-injector (Gvoke HypoPen 2-Pack) glucose 4 gram chewable tablet 16 g PO Q15M PRN hypoglycemia #360 06/02/24 08/02/24 Rx tabs insulin lispro 100 unit/mL See Rx Instructions subcut PRN 06/02/24 08/02/24 Rx subcutaneous solution insulin pump #60 mL insulin pump cart,auto,BT,G6/7 #45 ea 06/02/24 08/02/24 Rx pantoprazole 40 mg tablet,delayed 40 mg PO Q12H #180 tabs 07/01/24 08/02/24 Rx release sucralfate 100 mg/mL oral 1 g (10 mL) PO Q6H #1,000 mL 07/01/24 08/02/24 Rx suspension mecobalamin (vitamin B12) 500 mcg 500 mcg PO DAILY 07/15/24 08/02/24 History chewable tablet metoclopramide HCl 10 mg tablet 10 mg PO Q6H 07/15/24 08/02/24 History multivitamin 1 tablet PO DAILY 07/15/24 08/02/24 History ondansetron 4 mg disintegrating 4 mg PO BID PRN nausea and 07/15/24 08/02/24 Rx tablet vomiting #20 tabs potassium gluconate 2 mEq tablet 2 meq PO DAILY 07/15/24 08/02/24 History acetaminophen 500 mg capsule 1,000 mg PO Q6H PRN pain #30 caps 07/31/24 08/02/24 Rx aluminum-mag hydroxide-simethicone 10 ml PO TID PRN indigestion 07/31/24 08/02/24 Rx 400 mg-400 mg-40 mg/5 mL oral susp #3,000 mL (Liquid Antacid) ibuprofen 600 mg tablet 600 mg PO TID PRN pain #30 tabs 07/31/24 08/02/24 Rx promethazine 25 mg rectal 25 mg RECTAL Q6H PRN nausea and 07/31/24 08/02/24 Rx suppository vomiting #12 ea melatonin 10 mg tablet 10 mg PO HS PRN Insomnia 08/02/24 08/02/24 History Allergies Allergy/AdvReac Type Severity Reaction Status Date / Time No Known Allergies Allergy Verified 08/02/24 12:23 Vital Signs Vital Signs - 24 hr 08/02/24 12:21 08/02/24 15:01 08/02/24 18:11 Temperature 36.4 C Pulse Rate 112 H 73 121 H Respiratory Rate 20 20 20 Blood Pressure 130/98 H 109/76 133/79 Pulse Oximetry 99 100 100 Oxygen Delivery Room Air 08/02/24 19:32 08/02/24 20:30 08/02/24 22:00 Temperature Pulse Rate 120 H 103 H Respiratory Rate 18 Blood Pressure 136/86 Pulse Oximetry 100 Oxygen Delivery Room Air 08/02/24 20:15 08/02/24 22:00 08/03/24 00:00 Temperature 36.5 C Pulse Rate 116 H 103 H Respiratory Rate 18 20 Blood Pressure 127/73 132/77 Pulse Oximetry 100 100 Oxygen Delivery Room Air 08/03/24 00:00 08/03/24 00:00 08/03/24 02:00 Temperature 37.1 C Pulse Rate 97 97 89 Respiratory Rate 14 Blood Pressure 110/64 Pulse Oximetry 99 Oxygen Delivery 08/03/24 02:00 08/03/24 04:00 08/03/24 04:00 Temperature 36.8 C 36.8 C Pulse Rate 89 105 H 105 H Respiratory Rate 17 18 Blood Pressure 125/70 143/83 H Pulse Oximetry 99 100 Oxygen Delivery 08/03/24 04:00 08/03/24 06:00 08/03/24 06:00 Temperature Pulse Rate 91 91 Respiratory Rate 17 Blood Pressure 146/86 H Pulse Oximetry 100 Oxygen Delivery Room Air 08/03/24 08:00 12/09/24 08:00 Temperature 36.9 C Pulse Rate 103 H Respiratory Rate 13 Blood Pressure 146/84 H Pulse Oximetry 100 Oxygen Delivery Room Air Exam Narrative: General: Pt is alert awake and in NAD Lungs/Chest: Trachea central Clear BS B/L, No crackles or wheezing. Cardiac: RRR. Normal S1 S2. No murmurs Circulation: Pedal pulses are intact and symmetrical. Abdomen: Normal bowel sounds.. Soft. NT. ND. Extremities: No clubbing, cyanosis or edema. Warm : Christian in place Neurologic: Follows commands. Moves all 4 extremities PERRL AO x3 Skin: No Rash, several tattoos on the skin all over body Results Labs 08/03/24 03:40 08/03/24 08:06 Labs: Impressions Abdomen/Pelvis CT 08/02/24 16:51 IMPRESSION: Mild irregularity renal outline suggesting bilateral chronic pyelonephritis Normal appendix No acute abnormality is identified Short CBC 08/02/24 08/03/24 Range/Units 15:12 03:40 WBC 23.0 H 13.8 H (4.5-10.0) K/mm3 Hgb 13.1 11.0 L (12.0-15.0) g/dL Hct 39.9 34.6 L (37.0-47.0) % Plt Count 378 H 331 (150-375) k/mm3 BMP 08/02/24 08/02/24 08/03/24 15:12 20:56 00:44 Sodium 130 L 131 L 130 L Potassium 3.6 3.2 L 3.7 Chloride 90 L 99 102 Carbon Dioxide 13 L 10 L 13 L BUN 24 H D 22 H 18 H Creatinine 1.00 0.90 0.80 Glucose 431 H 155 H 143 H Calcium 9.4 7.8 L 7.8 L 08/03/24 08/03/24 03:40 08:06 Sodium 129 L 131 L Potassium 3.8 3.9 Chloride 101 100 Carbon Dioxide 12 L 18 L BUN 15 13 Creatinine 0.80 0.70 Glucose 199 H 210 H Calcium 7.6 L 8.1 L Cardiac Enzymes 08/02/24 08/02/24 Range/Units 15:12 15:12 Total Creatine Kinase 24 L Cancelled (30-135) U/L Liver Function 12/08/24 Range/Units 15:12 Total Bilirubin 1.5 H (0.2-1.3) mg/dL AST 23 (14-36) U/L ALT 16 (6-35) U/L Alkaline Phosphatase 72 (38-126) U/L Albumin 4.9 (3.5-5.1) g/dL Urine 08/02/24 Range/Units 15:12 Urine Color Yellow (Yellow) Urine Appearance Clear (Clear) Urine pH 5.5 (5.0-9.0) Ur Specific [place] 1.028 (1.001-1.035) Urine Protein 1+ H (Negative) mg/dL Urine Glucose (UA) 3+ H (Negative) mg/dL ECG Interpretation: Sinus tachycardia with QTC 464 Hospitalist MIPS Advance Care Plan I have confirmed that the patient's Advanced Care Plan is present, code status is documented, or surrogate decision maker is listed in patient medical record.: Yes Medication Reconciliation I have utilized all available resources to obtain, update and review the patients current medications (includes all prescriptions, OTC, herbals, cannabis, and nutritional supplements).: Yes
[2024-08-03] MEDS: CALCIUM GLUC 1,000 MG/NS 50 ML 1,000 MG/50 ML BAG 100 MG IVPB (08:41)
[2024-08-03] MEDS: KETOROLAC 30 MG/ML VIAL (*BKC) IV PUSH (09:07)
[2024-08-03 09:12] LABS: Glucose Point of Care 225 mg/dl (65-105)
[2024-08-03 10:11] LABS: Glucose Point of Care 229 mg/dl (65-105)
[2024-08-03] MEDS: METOCLOPRAMIDE HCL INJ 10 MG/2 ML VIAL 5 MG IV PUSH ×2 (11:08→17:01)
[2024-08-03 11:13] LABS: Glucose Point of Care 262 mg/dl (65-105)
[2024-08-03 12:13] LABS: Glucose Point of Care 251 mg/dl (65-105)
[2024-08-03 12:34] LABS: Anion Gap 10 mmol/L (4-12); Blood Urea Nitrogen 10 mg/dL (7-17); Calcium 8.2 mg/dL (8.4-10.2); Carbon Dioxide 19 mmol/L (22-30); Chloride 100 mmol/L (98-107); Estimated CRCL calculation 82 ml/min; Estimated Glomerular Filt Rate > 60; Glucose 247 mg/dL (65-110); Potassium 4.2 mmol/L (3.4-5.0); Sodium 129 mmol/L (137-145)
[2024-08-03] MEDS: INSULIN GLARGINE (*BKC) 100 UNITS/ML 15 UNITS SUB-Q (13:02)
[2024-08-03 13:06] LABS: Glucose Point of Care 225 mg/dl (65-105)
[2024-08-03] MEDS: LACTATED RINGERS 1,000 ML 50 ML IV CONT (14:05)
[2024-08-03 14:14] LABS: Glucose Point of Care 178 mg/dl (65-105)
[2024-08-03 16:19] LABS: Glucose Point of Care 269 mg/dl (65-105)
[2024-08-03] MEDS: INSULIN ASPART (*BKC) 100 UNITS/ML SUB-Q (16:37)
[2024-08-03] MEDS: KETOROLAC 15 MG/ML VIAL (*BKC) IV PUSH (17:06)
[2024-08-03 18:49] LABS: Anion Gap 16 mmol/L (4-12); Blood Urea Nitrogen 9 mg/dL (7-17); Calcium 8.8 mg/dL (8.4-10.2); Carbon Dioxide 15 mmol/L (22-30); Chloride 99 mmol/L (98-107); Estimated CRCL calculation 82 ml/min; Estimated Glomerular Filt Rate > 60; Glucose 258 mg/dL (65-110); Potassium 3.9 mmol/L (3.4-5.0); Sodium 130 mmol/L (137-145)
--- NOTE | 2024-08-03 19:15 | PC.NURSE ---
Order from Dr. Barrios to check a BMP and not transfer patient until resulted. notified of results, called Dr. Paiz and left a voicemail. Dr. Paiz called unit. [facility] for DKA protocol.
[2024-08-03] MEDS: HYDROmorphone HCL INJ (*CRX) 1 MG/ML SYR 0.5 MG IV PUSH (19:22)
[2024-08-03] MEDS: INSULIN HUMAN REGULAR (*BKC) 100 UNITS in SODIUM CHLORIDE 0.9% IV 99 ML IV CONT (19:25)
--- NOTE | 2024-08-03 19:26 | ECG_ITS ---
Test Date: 2024-08-03 19:26:56 Measurements Intervals [place] Rate: 103 P: 68 DE: 144 QRS: -6 QRSD: 73 T: 47 QT: 359 QTc: 471 Interpretive Statements SINUS TACHYCARDIA ABNORMAL RHYTHM ECG Compared to ECG 08/03/2024 05:25:52 Sinus rhythm no longer present Electronically Signed On 08-06-2024 15:34:43 WARP KNITTING MACHINE OPERATOR by Daren Wesley
[2024-08-03] MEDS: KCL 20 MEQ/D5/0.45% SOD CHL 1,000 ML 150 ML IV CONT (20:49)
[2024-08-03] MEDS: FAMOTIDINE 20 MG/2 ML VIAL IV PUSH (20:50)
[2024-08-03 21:34] LABS: Glucose Point of Care 224 mg/dl (65-105)
[2024-08-03 21:51] LABS: Glucose Point of Care 169 mg/dl (65-105)
[2024-08-03 22:34] LABS: Glucose Point of Care 168 mg/dl (65-105)
[2024-08-03 23:45] LABS: Anion Gap 7 mmol/L (4-12); Blood Urea Nitrogen 8 mg/dL (7-17); Calcium 8.5 mg/dL (8.4-10.2); Carbon Dioxide 23 mmol/L (22-30); Chloride 100 mmol/L (98-107); Estimated CRCL calculation 94 ml/min; Estimated Glomerular Filt Rate > 60; Glucose 169 mg/dL (65-110); Potassium 3.8 mmol/L (3.4-5.0); Sodium 130 mmol/L (137-145)
[2024-08-04] VITALS: BP 168/94; PULSE 100; RESP 14; RESP 18; O2SAT 100
[2024-08-04] MEDS: METOCLOPRAMIDE HCL INJ 10 MG/2 ML VIAL 5 MG IV PUSH ×2 (00:31→07:22)
[2024-08-04 00:50] LABS: Glucose Point of Care 173 mg/dl (65-105)
[2024-08-04] MEDS: HYDROmorphone HCL INJ (*CRX) 1 MG/ML SYR 0.5 MG IV PUSH ×3 (01:07→18:25)
[2024-08-04] MEDS: KCL 20 MEQ/D5/0.45% SOD CHL 1,000 ML 150 ML IV CONT ×2 (02:08→08:33)
[2024-08-04 02:13] LABS: Glucose Point of Care 171 mg/dl (65-105)
[2024-08-04 06:32] LABS: Glucose Point of Care 138 mg/dl (65-105)
[2024-08-04 06:32] LABS: Glucose Point of Care 96 mg/dl (65-105)
[2024-08-04 07:13] LABS: Glucose Point of Care 142 mg/dl (65-105)
[2024-08-04 08:00] VITALS: BP 110/71; PULSE 83; PULSE 94; RESP 15; TEMP 36.6; O2SAT 100
[2024-08-04 08:01] LABS: Basophils Percent Auto 0.4 % (0.2-1.2); Eosinophils Absolute Auto 0.1 K/mm3 (0-0.3); Hematocrit 33.5 % (37.0-47.0); Immature Granulocyte Absolute 0.04 K/mm3 (0.00-0.031); Immature Granulocyte Percent A 0.4 % (0-0.5); Lymphocytes Absolute Auto 2.74 K/mm3 (0.9-3.2); Lymphocytes Percent Auto 28.1 % (18.3-44.2); Mean Corpuscular HGB Conc 32.8 g/dl (32-36); Mean Corpuscular Hemoglobin 26.6 pg (26-34); Mean Corpuscular Volume 81.1 fl (80-100); Mean Platelet Volume 10.7 fl (7.4-10.4); Monocytes Percent Auto 10.4 % (2.6-8.5); Neutrophils Absolute Auto 5.8 K/mm3 (1.3-6.7); Neutrophils Percent Auto 59.7 % (45.5-73.1); Platelet Count Result 323 k/mm3 (150-375); Red Blood Count 4.13 M/mm3 (4.2-5.4); Red Cell Distribution Width 14.1 % (11.5-14.5); White Blood Count 9.7 K/mm3 (4.5-10.0)
[2024-08-04 08:06] LABS: Glucose Point of Care 123 mg/dl (65-105)
[2024-08-04] MEDS: FAMOTIDINE 20 MG/2 ML VIAL IV PUSH ×2 (08:24→21:14)
[2024-08-04] MEDS: diphenhydrAMINE HCl INJ 50 MG/ML VIAL 25 MG IV PUSH ×3 (08:30→21:14)
[2024-08-04 09:10] LABS: Glucose Point of Care 137 mg/dl (65-105)
[2024-08-04 09:45] LABS: Anion Gap 6 mmol/L (4-12); Blood Urea Nitrogen 8 mg/dL (7-17); Calcium 8.3 mg/dL (8.4-10.2); Carbon Dioxide 24 mmol/L (22-30); Chloride 100 mmol/L (98-107); Estimated CRCL calculation 94 ml/min; Estimated Glomerular Filt Rate > 60; Glucose 163 mg/dL (65-110); Potassium 3.7 mmol/L (3.4-5.0); Sodium 130 mmol/L (137-145)
[2024-08-04 09:46] LABS: Magnesium 1.7 mg/dL (1.6-2.3); Phosphorus 2.3 mg/dL (2.5-4.5)
[2024-08-04 10:00] VITALS: BP 146/94; PULSE 90; RESP 19; O2SAT 100
[2024-08-04 10:12] LABS: Glucose Point of Care 105 mg/dl (65-105)
[2024-08-04 10:28] LABS: Anion Gap 4 mmol/L (4-12); Blood Urea Nitrogen 7 mg/dL (7-17); Calcium 8.3 mg/dL (8.4-10.2); Carbon Dioxide 26 mmol/L (22-30); Chloride 100 mmol/L (98-107); Estimated CRCL calculation 94 ml/min; Estimated Glomerular Filt Rate > 60; Glucose 117 mg/dL (65-110); Potassium 3.3 mmol/L (3.4-5.0); Sodium 130 mmol/L (137-145)
[2024-08-04 10:35] LABS: Alanine Aminotransferase 16 U/L (6-35); Albumin Level 3.4 g/dL (3.5-5.1); Alkaline Phosphatase 48 U/L (38-126); Anion Gap 6 mmol/L (4-12); Aspartate Amino Transferase 37 U/L (14-36); Blood Urea Nitrogen 8 mg/dL (7-17); Calcium 8.3 mg/dL (8.4-10.2); Carbon Dioxide 23 mmol/L (22-30); Chloride 101 mmol/L (98-107); Estimated CRCL calculation 94 ml/min; Estimated Glomerular Filt Rate > 60; Glucose 160 mg/dL (65-110); Potassium 3.7 mmol/L (3.4-5.0); Sodium 130 mmol/L (137-145)
[2024-08-04 11:08] LABS: Glucose Point of Care 99 mg/dl (65-105)
[2024-08-04] MEDS: INSULIN GLARGINE (*BKC) 100 UNITS/ML 25 UNITS SUB-Q (11:08)
[2024-08-04] MEDS: METOCLOPRAMIDE HCL INJ 10 MG/2 ML VIAL IV PUSH ×3 (11:08→23:45)
--- NOTE | 2024-08-04 11:21 | PCNFU ---
Nutrition Follow-Up Complete: Inadequate oral intake related to NPO status, diabetic ketoacidosis as evidenced by labs Goal: Diet advancement Trend blood glucose Patient has limited progress towards goal. We will continue current goal. Pt current nutrition is DBCC/Clear liquid. Nutrition recommendation: advance as tolerated per MD orders to DBCC. Last recorded weight is 70.6 kg, stable Bowel Motility: Last reported BM 07/29 Labs Reviewed:no new labs to report Meds Noted: Lantus, NovoLog, Pepcid Skin: WNL Additional Notes: Patient remains on clear liquid diet. Emesis noted 08/03. PO intake encouraged today. Agree with diet orders at this time. Monitoring labs, diet orders, intakes, weights, plan of care Follow up in 3 days
[2024-08-04 12:00] VITALS: BP 155/81; PULSE 87; PULSE 99; RESP 23; TEMP 36.9; O2SAT 100
[2024-08-04 12:10] LABS: Glucose Point of Care 96 mg/dl (65-105)
--- NOTE | 2024-08-04 12:39 | P.CONGI_ITS ---
<Statement entered by Robin Dc MD - 08/04/24 17:30> I, Robin Dc MD, have provided a substantive portion of the care of this patient and discussed the patient with my Nurse Practitioner. I have reviewed any new relevant radiographic and laboratory results including medications. I agree with her documentation as noted below.?I personally performed the medical decision making and much of the history and exam for this encounter. briefly, h/o DM, former alcohol use, current marijuana use with chronic nausea here with DKA after stopped using her insulin. She has ongoing nausea using reglan at home, EGD last month showed esophagitis. Plan is to continue treatment for DKA in icu, iv protonix, antiemetics prn and advance diet as tolerated Assessment and Plan Assessment and plan (1) Nausea and vomiting: Qualifiers: Vomiting type: bilious vomiting Qualified Code(s): R11.14 - Bilious vomiting Code(s): R11.2 - Nausea with vomiting, unspecified Status: Resolved (2) Gastroparesis: Code(s): K31.84 - Gastroparesis Status: Acute (3) GERD with esophagitis: Qualifiers: Esophagitis bleeding: without hemorrhage Qualified Code(s): K21.00 - Gastro-esophageal reflux disease with esophagitis, without bleeding Code(s): K21.00 - Gastro-esophageal reflux disease with esophagitis, without bleeding Status: Inactive (4) Appetite loss: Code(s): R63.0 - Anorexia Status: Resolved (5) Hyponatremia: Code(s): E87.1 - Hypo-osmolality and hyponatremia Status: Resolved (6) Cannabinoid hyperemesis syndrome: Code(s): R11.2 - Nausea with vomiting, unspecified; F12.90 - Cannabis use, unspecified, uncomplicated Status: Acute Plan 1. Nausea / vomiting /GERD with esophagitis/ gastritis / decreased appetite /gastroparesis/ cannabinoid induced hyperemesis: EGD 07/01/2024 showed reflux esophagitis, grade 2 in the distal esophagus which was improved from previous EGD. EGD 04/23/2024 showed reflux esophagitis, grade 3 colon in the mid and distal esophagus, normal stomach and duodenum. Biopsies showed acute esophagitis with ulceration, mild chronic reactive gastritis without intestinal metaplasia, no evidence of H. pylori. CT scan performed this admission showed no abnormal GI findings. Unclear when patient was initially diagnosed with gastroparesis. She states that she has never had a gastric emptying study. Patient presented to the ER with similar complaints of nausea and vomiting and DKA. Patient does admit that prior to admission she had let her blood sugars get high so that she would be admitted and further testing would be completed. she does state that she was still having episodes of nausea and vomiting when her blood sugars were within normal limits. The patient has a history of EtOH abuse stating that she was previously drinking 1/5 of whiskey daily in combination with daily marijuana use. She has not had any alcohol since April but continues to smoke marijuana daily. she is unable to identify any specific known triggers that may induce these episodes of nausea and vomiting. She does state that taking a hot bath helps control symptoms. She is on Reglan q.6 hours but continues to have symptoms. * Continue Reglan * HIDA scan ordered to rule out other possible causes such as biliary dyskinesia * patient counseled on the importance of discontinuing marijuana to help exclude cannabinoid hyperemesis as a contributing factor * patient also counseled on the importance of maintaining good blood sugar control * if symptoms persist may consider gastric emptying study outpatient in 2 confirm or deny gastroparesis diagnosis * May also consider a trial of erythromycin or a tricyclic antidepressant outpatient * continue supportive care with antiemetics 2. Hypokalemia / anemia: labs yesterday showed sodium 130, potassium 3.8. HGB 11, HCT 34, MCV 81, platelets 323. H&H was within normal limits at time of admission, anemia may be dilutional primary care team to continue monitoring H&H and transfuse as needed to keep HGB > 7 * if H/H decreases more, may consider outpatient workup and colonoscopy * hyponatremia likely secondary to GI fluid loss * Primary care team to continue monitoring and correcting GI Consult Note Consult date/time: 08/04/24 12:39 Reason for consult: nausea and vomiting HPI: This is a pleasant 39 year old female with a past medical surgical history of diabetes with Hx of DKA, x3, bipolar disorder, cannabinoid hyperemesis syndrome, depression, gastroparesis, HLD, migraines, GERD with esophagitis, gastroparesis, and EtOH abuse. Patient presented to the ER via EMS for persistent nausea and vomiting. Patient was seen in the ER 07/30 for nausea and vomiting and was discharged home. She returned again 07/31 with the same complaints and was then admitted for DKA, nausea and vomiting. Patient was recently admitted [facility] June 26 for acute on chronic nausea and vomiting and was seen by GI for abnormal CT scan. During her hospitalization she had an EGD performed. ENDOSCOPY HISTORY: EGD: 07/01/[address] Mondragon for nausea and vomiting, abdominal pain, Hx of erosive esophagitis, abnormal CT, and history of diabetes with DKA on admission findings: Reflux esophagitis, grade 2 was present in the distal esophagus, this was improved from previous EGD. Multiple biopsies were taken The Z-line was located 38 cm from the incisors The stomach at the body, cardia and fundus was examined and was normal with no ulcers or masses. No gastritis The bulb and 2nd portion of duodenum was normal with no ulcers or masses EGD: 04/23/2024 Dr. Mondragon nausea and vomiting, epigastric pain, GERD, coffee-ground emesis, diabetes with gastroparesis, an ETOH abuse Findings: Reflux esophagitis, grade 3 colon was present in the mid esophagus in the distal esophagus extending 32-39 cm from the incisors. Multiple biopsies were taken. The Z-line was located at 39 cm from the incisors The stomach at the body, cardia and fundus was examined and was normal with no ulcers or masses. No obvious gastritis. No retained gastric content. Multiple biopsies were taken The bulb and 2nd portion the duodenum was normal with no ulcers or masses. 4 month repeat EGD recommended Bx results: A. Esophagus, biopsies: - Acute esophagitis with ulceration - No evidence of dysplasia or viral cytopathic effect - No fungal organisms identified on GMS stain with positive control. B. Stomach, biopsies: - Mild chronic reactive gastritis without intestinal metaplasia - No histologic evidence of Helicobacter organisms noted COLONOSCOPY: Patient has never had a colonoscopy LABS AND STOOL STUDIES: Labs August 02: Sodium 130, potassium 3.8, BUN 8, creatinine 0.60, GFR > 60. WBC is 10, HGB 11, HCT 34, MCV 81, platelets 323. Total bilirubin 1.5, AST 23, ALT 16, alkaline phosphatase 72. Calcium 8.5, phosphorus 2.8, magnesium 2.0, glucose 123 No recent stool studies available at todays visit IMAGING: CT abd/pelvis w/contrast 08/02/2024 IMPRESSION: Mild irregularity renal outline suggesting bilateral chronic pyelonephritis Normal appendix No acute abnormality is identified Abdominal ultrasound 07/31/2024 IMPRESSION: 1: Normal limited abdominal ultrasound. CT abd/pelvis w/contrast 07/30/2024 Impression: No significant abnormalities seen. CT chest/abd/pelvis w/contrast 06/27/2024 IMPRESSION: Circumferential nonspecific soft tissue thickening of the distal esophagus; this might be due to esophagitis Approximately 3 x 4 cm left ovarian cystic lesion; consider pelvic ultrasound Normal appendix Abdominal ultrasound 06/29/2024 IMPRESSION: 1. 5.8 cm hemorrhagic cyst in left ovary. Ultrasound is recommended in 2-[address] abd/pelvis wo contrast 04/21/2024 IMPRESSION: 1. No acute intra-abdominal/pelvic process. 2. Small sliding-type hiatal hernia. 3. Couple small calcifications at the left ovary which could represent phleboliths or an ovarian dermoid. Review of Systems 2 Constitutional: Constitutional: Reports as per HPI ENT: Reports as per HPI Cardiovascular: Cardiovascular: Reports as per HPI, Denies chest pain, Denies leg edema, Denies lightheadedness and Denies dyspnea Respiratory: Respiratory: Denies cough and Denies dyspnea Gastrointestinal: Gastrointestinal: Reports as per HPI Musculoskeletal: Musculoskeletal: Reports as per HPI Integumentary/Breasts: Skin/Breast: Reports as per HPI Psychiatric: Psychiatric: Reports as per HPI Endocrine: Endocrine: Reports no additional endocrine complaints Hematologic/Lymphatic: Hematologic/Lymphatic: Reports no additional hematologic/lymphatic complaints [facility] Past Medical History Medical History (Updated 08/04/24 @ 12:57 by Inge Obando APRN) Cannabinoid hyperemesis syndrome Bipolar disorder Esophageal varices 04/2024 Depression Migraine Diabetic neuropathy GERD with esophagitis Hyperlipidemia Gastroparesis Elevated liver enzymes Type 1 diabetes mellitus Diagnosed at the age of 7. Hemoglobin A1c was 10.8% on 08/09/2020. DKA (diabetic ketoacidoses) multiple Surgical History Surgical History History of gynecological procedure 04/29/2020- mirena iud insertion - 10/23/2021 mirena iud removal -nm History of 3 sections Family History Family History Grandparent Breast cancer Father Diabetes mellitus Other Hypertension Social History Social History Smoking packs per day: 1 Smoking cigarettes per day: 20.0 Years smoked: 20 Smoking pack-years: 20.00 Smoking status: Current every day smoker Tobacco type: cigarettes Second hand tobacco smoke exposure: Yes Alcohol intake: never Drinks per week: 20 Alcohol use details: occasional Substance use: current Substance use type: marijuana Last use: 07/25/24 Do You Feel Safe in your Home?: Yes Lack of Transportation: No Lack of Food: Never True Current Housing: I Have Housing Concerned About Future Housing: No Difficulty Paying Gas/Electric Bills: No Difficulty Paying for Meds: No Currently Unemployed: No Education: High School Diploma/GED Difficulty w/ Childcare or Family Care: No Living arrangements: with family Occupation/Education: unemployed Additional occupation/education comments: not currently working Gender identity (if verbalized by the patient): Female Sexual Orientation (if Verbalized by the Patient): Straight or Heterosexual Spiritual care concerns: No Meds Home Medications and Allergies Home Medications ?Medication ?Instructions ?Recorded ?Confirmed ?Type folic acid 1 mg tablet 1 mg PO DAILY #90 tabs 01/09/24 08/02/24 Rx insulin pump cart,auto,BT,G6/7 #30 ea 01/09/24 08/02/24 Rx (Omnipod 5 G6-G7 Pods (Gen 5) subcutaneous cartridge) insulin pump cartridge,auto #1 ea 01/09/24 08/02/24 Rx dose,BT,G6/G7 with controller subcutaneous (Omnipod 5 G6-G7 Intro Kit(Gen 5) subcutaneous cartridge and controller) cholecalciferol (vitamin D3) 50 50 mcg PO DAILY #90 caps 01/17/24 08/02/24 Rx mcg (2,000 unit) capsule gabapentin 300 mg capsule 300 mg PO QHS #90 caps 01/17/24 08/02/24 Rx lisinopril 2.5 mg tablet 2.5 mg PO DAILY #90 tabs 01/30/24 08/02/24 Rx insulin pump cartridge,auto #1 ea 05/14/24 08/02/24 Rx dose,BT,G6/G7 with controller subcutaneous blood-glucose sensor (Dexcom G6 #9 ea 06/02/24 08/02/24 Rx Sensor device) glucagon 1 mg/0.2 mL subcutaneous 1 mg (0.2 mL) subcut ONCE #0.4 mL 06/02/24 08/02/24 Rx auto-injector (Gvoke HypoPen 2-Pack) glucose 4 gram chewable tablet 16 g (4 x 4 gram) PO Q15M PRN 06/02/24 08/02/24 Rx hypoglycemia #360 tabs insulin lispro 100 unit/mL See Rx Instructions subcut PRN 06/02/24 08/02/24 Rx subcutaneous solution insulin pump #60 mL insulin pump cart,auto,BT,G6/7 #45 ea 06/02/24 08/02/24 Rx pantoprazole 40 mg tablet,delayed 40 mg PO Q12H #180 tabs 07/01/24 08/02/24 Rx release sucralfate 100 mg/mL oral 1 g (10 mL) PO Q6H #1,000 mL 07/01/24 08/02/24 Rx suspension mecobalamin (vitamin B12) 500 mcg 500 mcg PO DAILY 07/15/24 08/02/24 History chewable tablet metoclopramide HCl 10 mg tablet 10 mg PO Q6H 07/15/24 08/02/24 History multivitamin 1 tablet PO DAILY 07/15/24 08/02/24 History ondansetron 4 mg disintegrating 4 mg PO BID PRN nausea and 07/15/24 08/02/24 Rx tablet vomiting #20 tabs potassium gluconate 2 mEq tablet 2 meq PO DAILY 07/15/24 08/02/24 History acetaminophen 500 mg capsule 1,000 mg (2 x 500 mg) PO Q6H PRN 07/31/24 08/02/24 Rx pain #30 caps aluminum-mag hydroxide-simethicone 10 ml PO TID PRN indigestion 07/31/24 08/02/24 Rx 400 mg-400 mg-40 mg/5 mL oral susp #3,000 mL (Liquid Antacid) ibuprofen 600 mg tablet 600 mg PO TID PRN pain #30 tabs 07/31/24 08/02/24 Rx promethazine 25 mg rectal 25 mg RECTAL Q6H PRN nausea and 07/31/24 08/02/24 Rx suppository vomiting #12 ea melatonin 10 mg tablet 10 mg PO HS PRN Insomnia 08/02/24 08/02/24 History Allergies Allergy/AdvReac Type Severity Reaction Status Date / Time No Known Allergies Allergy Verified 08/02/24 12:23 Vital Signs Vital Signs - 24 hr 08/03/24 16:00 08/03/24 20:00 08/03/24 20:00 Temperature 98.8 F 97.9 F Pulse Rate 96 96 98 Respiratory Rate 20 20 20 Blood Pressure 155/76 H 123/71 Pulse Oximetry 100 95 95 Oxygen Delivery Room Air 08/03/24 22:00 08/04/24 00:00 08/04/24 00:00 Temperature Pulse Rate 96 100 100 Respiratory Rate 18 14 18 Blood Pressure 180/97 H 168/94 H Pulse Oximetry 100 100 100 Oxygen Delivery Room Air 08/04/24 08:00 08/04/24 08:00 08/04/24 08:00 Temperature 97.9 F Pulse Rate 83 94 Respiratory Rate 15 Blood Pressure 110/71 Pulse Oximetry 100 100 Oxygen Delivery Room Air 08/04/24 10:00 Temperature Pulse Rate 90 Respiratory Rate Blood Pressure Pulse Oximetry Oxygen Delivery Exam 2 Const: General: cooperative, healthy appearing, comfortable, no acute distress and well developed Orientation/consciousness: oriented to person, oriented to place, oriented to time and patient oriented x3 HENMT: Head: normal to inspection, normocephalic and atraumatic Mouth: Yes Normal oral and palatal mucosa present and Yes moist mucous membranes Eyes: General: appearance normal, both eyes and all related structures C onjunctivae: conjunctivae normal Sclera: sclerae normal Pupils: Equal, round and reactive pupils present Neck: Neck: normal visual inspection Chest: Chest palpation & inspection: normal inspection of the chest Resp: Effort & Inspection: normal respiratory effort and able to speak in complete sentences Auscultation: clear to auscultation bilaterally Cardio: Jugular venous distension: no JVD Rate: regular rate Rhythm: r egular rhythm Heart sounds: S1 normal heart sound present and S2 normal heart sound present GI: Inspection: normal to inspection GI Palp: Yes Soft to palpation and Yes No hepatosplenomegaly present Auscultation: normal bowel sounds Rectal Exam: deferred Skin: General skin exam: normal color and no rashes or lesions noted Neuro: General: oriented to person, oriented to place, oriented to time and patient oriented x3 Cranial nerves: Yes Equal, round and reactive pupils present Speech: normal speech Extrem: General: normal to inspection and no clubbing, cyanosis or edema Psych: Appearance: grossly normal and well kempt Affect: normal affect Results Labs 08/04/24 05:00 08/04/24 08:39 Labs: Short CBC 08/04/24 Range/Units 05:00 WBC 9.7 (4.5-10.0) K/mm3 Hgb 11.0 L (12.0-15.0) g/dL Hct 33.5 L (37.0-47.0) % Plt Count 323 (150-375) k/mm3 BMP 08/03/24 08/03/24 08/04/24 18:35 23:23 03:15 Sodium 130 L 130 L 130 L Potassium 3.9 3.8 3.7 Chloride 99 100 100 Carbon Dioxide 15 L 23 24 BUN 9 8 8 Creatinine 0.70 0.60 L 0.60 L Glucose 258 H 169 H 163 H Calcium 8.8 8.5 8.3 L 08/04/24 08/04/24 04:11 08:39 Sodium 130 L 130 L Potassium 3.7 3.3 L Chloride 101 100 Carbon Dioxide 23 26 BUN 8 7 Creatinine 0.60 L 0.60 L Glucose 160 H 117 H Calcium 8.3 L 8.3 L Liver Function 08/04/24 Range/Units 04:11 Total Bilirubin 1.0 (0.2-1.3) mg/dL AST 37 H (14-36) U/L ALT 16 (6-35) U/L Alkaline Phosphatase 48 (38-126) U/L Albumin 3.4 L (3.5-5.1) g/dL
--- NOTE | 2024-08-04 13:33 | WPDINTPN ---
Progress Note: A&P Assessment and Plan (1) DKA (diabetic ketoacidosis): Qualifiers: Diabetes mellitus complication detail: without coma Diabetes mellitus type: type 1 Qualified Code(s): E10.10 - Type 1 diabetes mellitus with ketoacidosis without coma Code(s): E11.10 - Type 2 diabetes mellitus with ketoacidosis without coma Status: Acute Assessment and Plan: Patient presented with diabetic ketoacidosis, received adequate amount of IV fluids, was on insulin infusion which was transition to long-acting insulin and sliding scale insulin with Accu-Cheks. On 08/03/2024 her anion gap opened again and was restarted on insulin infusion -08/04/2024: Anion gap is closed, CO2 is 26. Will transition again to slightly higher dose of Lantus and high-dose sliding scale insulin with Accu-Cheks -start patient on clear liquid diet -replace potassium -health promotion educator and dietitian have been consulted -CT scan abdomen and pelvis and UA on remarkable for infection (2) Nausea and vomiting: Qualifiers: Vomiting type: unspecified Qualified Code(s): R11.2 - Nausea with vomiting, unspecified Code(s): R11.2 - Nausea with vomiting, unspecified Status: Acute Assessment and Plan: Patient has history of chronic nausea vomiting and has history of cannabinoid hyperemesis syndrome and gastroparesis Patient smokes marijuana 2-3 times daily and is not interested in cutting down Start Zofran while monitoring QTC interval Clear liquid diet Scopolamine patch ordered Appreciate GI evaluation recommendation -continue Reglan for gastroparesis -HIDA scan -cannabis can cause hyper emesis, she has been counseled on cessation due to the cause and effect (3) Prolonged QT interval: Code(s): R94.31 - Abnormal electrocardiogram [ECG] [EKG] Status: Acute Assessment and Plan: Patient had prolonged QTC on initial EKG. Likely secondary to medications. 08/03: EKG done this morning shows resolution of QTC interval. Will monitor QTC (4) Gastroparesis: Code(s): K31.84 - Gastroparesis Status: Acute Assessment and Plan: Increase Reglan Plan DVT prophylaxis -SCD Stress ulcer prophylaxis -famotidine Nutrition -clear liquid diet Code Status - Full Code Total Critical Care Time - 32 minutes Hospitalist has placed transfer orders for patient to leave the ICU Due to a high probability of clinically significant, life threatening deterioration, the patient required my highest level of preparedness to intervene emergently and I personally spent this critical care time directly and personally managing the patient. This critical care time included obtaining a history; examining the patient; pulse oximetry; ordering and review of studies; arranging urgent treatment with development of a management plan; evaluation of patient's response to treatment; frequent reassessment; and discussions with other providers. It was exclusive of separately billable procedures and treating other patients and teaching time. Please see Assessment and Plan section and the rest of the note for further information on patient assessment and treatment Subjective Date/time seen: 08/04/24 13:33 Interval history: Diabetic ketoacidosis, protracted nausea and vomiting, GERD gastroparesis 08/04/2024: Patient seen and examined the ICU, is awake, alert, states she feels better this morning. Less nausea and vomiting, decreased appetite, remains on insulin infusion. Anion gap is closed, afebrile, adequate urine output. Denies any abdominal pain, chest pain, shortness of breath Review of Systems Review of Systems: All systems reviewed & are unremarkable except as noted in HPI and below (HPI) Exam Narrative: General: Pt is alert awake and in NAD Lungs/Chest: Trachea central Clear BS B/L, No crackles or wheezing. Cardiac: RRR. Normal S1 S2. No murmurs Circulation: Pedal pulses are intact and symmetrical. Abdomen: Normal bowel sounds.. Soft. NT. ND. Extremities: No clubbing, cyanosis or edema. Warm : Christian in place Neurologic: Follows commands. Moves all 4 extremities PERRL AO x3 Skin: No Rash, several tattoos on the skin all over body Objective Data Vital Signs Vital Signs: Vital Signs - 24 hr 08/03/24 16:00 08/03/24 20:00 08/03/24 20:00 Temperature 98.8 F 97.9 F Pulse Rate 96 96 98 Respiratory Rate 20 20 20 Blood Pressure 155/76 H 123/71 Pulse Oximetry 100 95 95 Oxygen Delivery Room Air 08/03/24 22:00 08/04/24 00:00 08/04/24 00:00 Temperature Pulse Rate 96 100 100 Respiratory Rate 18 14 18 Blood Pressure 180/97 H 168/94 H Pulse Oximetry 100 100 100 Oxygen Delivery Room Air 08/04/24 08:00 08/04/24 08:00 08/04/24 08:00 Temperature 97.9 F Pulse Rate 83 94 Respiratory Rate 15 Blood Pressure 110/71 Pulse Oximetry 100 100 Oxygen Delivery Room Air 08/04/24 10:00 08/04/24 10:00 08/04/24 12:00 Temperature Pulse Rate 90 90 Respiratory Rate 19 Blood Pressure 146/94 H Pulse Oximetry 100 100 Oxygen Delivery Room Air 08/04/24 12:00 08/04/24 12:00 Temperature 98.4 F Pulse Rate 87 99 Respiratory Rate 23 H Blood Pressure 155/81 H Pulse Oximetry 100 Oxygen Delivery Intake/Output Intake/Output: Intake & Output 08/01/24 08/02/24 08/03/24 08/04/24 23:59 23:59 23:59 23:59 Intake Total 3223.3 2405.1 2320.5 Output Total 3650 250 Balance 3223.3 -1244.9 2070.5 Meds/Results Medications: Active Medications Generic Name Dose Route Start Last Admin Trade Name Freq PRN Reason Stop Dose Admin Acetaminophen 650 mg 08/02/24 18:42 Acetaminophen 650 Mg Suppository RECTAL Q6H PRN Mild Pain (1-3) or Fever Al Hydrox/Mg Hydrox/Simethicone 10 ml 08/02/24 22:24 Mag Hydrox/Al Hydrox/Simeth 30 Ml Udc PO TID PRN indigestion Dextrose 12.5 gm 08/04/24 10:30 Dextrose 50% 25 Gm/50 Ml Syringe IV PUSH PRN PRN Hypoglycemia Protocol Diphenhydramine HCl 25 mg 08/02/24 20:29 08/04/24 08:30 Diphenhydramine Hcl Inj 50 Mg/Ml Vial IV PUSH 25 mg Q4H PRN Administration Nausea And Vomiting Famotidine 20 mg 08/03/24 21:00 08/04/24 08:24 Famotidine 20 Mg/2 Ml Vial IV PUSH 20 mg Q12HR KARRIE Administration Glucagon 1 mg 08/04/24 10:30 Glucagon For Inj 1 Mg Vial IM PRN PRN Hypoglycemia Protocol Glucose 15 gm 08/04/24 10:30 Glucose Oral Gel 15 Gm Of Glucse In 37.5 Gm Tube PO PRN PRN Hypoglycemia Protocol Hydromorphone HCl 0.5 mg 08/03/24 08:37 08/04/24 13:06 Hydromorphone Hcl Inj (*Crx) 1 Mg/Ml Syr IV PUSH 0.5 mg Q3H PRN Administration Pain Rated 7-10 Dextrose 1,000 mls @ 100 mls/hr 08/04/24 10:30 Dextrose 5% 1,000 Ml IVPB PRN PRN Hypoglycemia Protocol Insulin Aspart 2 - 4 units 08/04/24 21:00 Insulin Aspart (*Bkc) 100 Units/Ml SUB-Q HS ON LICENSE OF [facility] Protocol Insulin Aspart 4 - 8 units 08/04/24 12:00 08/04/24 11:10 Insulin Aspart (*Bkc) 100 Units/Ml SUB-Q Not Given TIDWM ON LICENSE OF [facility] Protocol Insulin Glargine 25 units 08/04/24 10:40 08/04/24 11:08 Insulin Glargine (*Bkc) 100 Units/Ml SUB-Q 25 units DAILY KARRIE Administration Lisinopril 2.5 mg 08/03/24 09:00 08/04/24 11:27 Lisinopril 2.5 Mg Tablet PO Not Given DAILY ON LICENSE OF [facility] Metoclopramide HCl 10 mg 08/04/24 12:00 08/04/24 11:08 Metoclopramide Hcl Inj 10 Mg/2 Ml Vial IV PUSH 10 mg Q6HR KARRIE Administration Ondansetron HCl 4 mg 08/03/24 08:13 08/03/24 21:38 Ondansetron Inj 4 Mg/2 Ml Vial IV PUSH 4 mg Q4H PRN Administration Nausea And Vomiting Promethazine HCl 25 mg 08/03/24 19:40 Promethazine Hcl 25 Mg Supp.Rect RECTAL Q6HR PRN Nausea And Vomiting Scopolamine 1 patch 08/05/24 09:00 Scopolamine 1 Mg Patch TRANSDERM Q72HR ON LICENSE OF [facility] Radiology Results: ITS Impressions Abdomen/Pelvis CT 08/02/24 16:51 IMPRESSION: Mild irregularity renal outline suggesting bilateral chronic pyelonephritis Normal appendix No acute abnormality is identified Labs Labs: Laboratory Results - last 24 hr 08/03/24 08/03/24 08/03/24 14:12 16:14 18:35 WBC RBC Hgb Hct MCV MCH MCHC RDW Plt Count MPV Immature Gran % (Auto) Neut % (Auto) Lymph % (Auto) [place] % (Auto) Eos % (Auto) Baso % (Auto) Lymph # (Auto) [place] # (Auto) Eos # (Auto) Baso # (Auto) Abs Immat Gran (auto) Absolute Neuts (auto) Absolute Nucleated RBC Nucleated RBC % Sodium 130 L Potassium 3.9 Chloride 99 Carbon Dioxide 15 L Anion Gap 16 H BUN 9 Creatinine 0.70 Estim Creat Clear Calc 82 Estimated GFR > 60 Glucose 258 H POC Capillary Glucose 178 H 269 H Calcium 8.8 Phosphorus Magnesium Total Bilirubin AST ALT Alkaline Phosphatase Total Protein Albumin 08/03/24 08/03/24 08/03/24 20:46 21:48 22:32 WBC RBC Hgb Hct MCV MCH MCHC RDW Plt Count MPV Immature Gran % (Auto) Neut % (Auto) Lymph % (Auto) [place] % (Auto) Eos % (Auto) Baso % (Auto) Lymph # (Auto) [place] # (Auto) Eos # (Auto) Baso # (Auto) Abs Immat Gran (auto) Absolute Neuts (auto) Absolute Nucleated RBC Nucleated RBC % Sodium Potassium Chloride Carbon Dioxide Anion Gap BUN Creatinine Estim Creat Clear Calc Estimated GFR Glucose POC Capillary Glucose 224 H 169 H 168 H Calcium Phosphorus Magnesium Total Bilirubin AST ALT Alkaline Phosphatase Total Protein Albumin 08/03/24 08/04/24 08/04/24 23:23 00:48 02:10 WBC RBC Hgb Hct MCV MCH MCHC RDW Plt Count MPV Immature Gran % (Auto) Neut % (Auto) Lymph % (Auto) [place] % (Auto) Eos % (Auto) Baso % (Auto) Lymph # (Auto) [place] # (Auto) Eos # (Auto) Baso # (Auto) Abs Immat Gran (auto) Absolute Neuts (auto) Absolute Nucleated RBC Nucleated RBC % Sodium 130 L Potassium 3.8 Chloride 100 Carbon Dioxide 23 Anion Gap 7 BUN 8 Creatinine 0.60 L Estim Creat Clear Calc 94 Estimated GFR > 60 Glucose 169 H POC Capillary Glucose 173 H 171 H Calcium 8.5 Phosphorus Magnesium Total Bilirubin AST ALT Alkaline Phosphatase Total Protein Albumin 08/04/24 08/04/24 08/04/24 03:15 03:20 03:51 WBC RBC Hgb Hct MCV MCH MCHC RDW Plt Count MPV Immature Gran % (Auto) Neut % (Auto) Lymph % (Auto) [place] % (Auto) Eos % (Auto) Baso % (Auto) Lymph # (Auto) [place] # (Auto) Eos # (Auto) Baso # (Auto) Abs Immat Gran (auto) Absolute Neuts (auto) Absolute Nucleated RBC Nucleated RBC % Sodium 130 L Potassium 3.7 Chloride 100 Carbon Dioxide 24 Anion Gap 6 BUN 8 Creatinine 0.60 L Estim Creat Clear Calc 94 Estimated GFR > 60 Glucose 163 H POC Capillary Glucose 96 Calcium 8.3 L Phosphorus 2.3 L Magnesium 1.7 Total Bilirubin AST ALT Alkaline Phosphatase Total Protein Albumin 08/04/24 08/04/24 08/04/24 04:11 05:00 05:34 WBC 9.7 RBC 4.13 L Hgb 11.0 L Hct 33.5 L MCV 81.1 MCH 26.6 MCHC 32.8 RDW 14.1 Plt Count 323 MPV 10.7 H Immature Gran % (Auto) 0.4 Neut % (Auto) 59.7 Lymph % (Auto) 28.1 [place] % (Auto) 10.4 H Eos % (Auto) 1.0 Baso % (Auto) 0.4 Lymph # (Auto) 2.74 [place] # (Auto) 1.0 H Eos # (Auto) 0.1 Baso # (Auto) 0.0 Abs Immat Gran (auto) 0.04 H Absolute Neuts (auto) 5.8 Absolute Nucleated RBC 0.000 Nucleated RBC % 0.0 Sodium 130 L Potassium 3.7 Chloride 101 Carbon Dioxide 23 Anion Gap 6 BUN 8 Creatinine 0.60 L Estim Creat Clear Calc 94 Estimated GFR > 60 Glucose 160 H POC Capillary Glucose 138 H Calcium 8.3 L Phosphorus Magnesium Total Bilirubin 1.0 AST 37 H ALT 16 Alkaline Phosphatase 48 Total Protein 6.0 L Albumin 3.4 L 08/04/24 08/04/24 08/04/24 07:11 08:04 08:39 WBC RBC Hgb Hct MCV MCH MCHC RDW Plt Count MPV Immature Gran % (Auto) Neut % (Auto) Lymph % (Auto) [place] % (Auto) Eos % (Auto) Baso % (Auto) Lymph # (Auto) [place] # (Auto) Eos # (Auto) Baso # (Auto) Abs Immat Gran (auto) Absolute Neuts (auto) Absolute Nucleated RBC Nucleated RBC % Sodium 130 L Potassium 3.3 L Chloride 100 Carbon Dioxide 26 Anion Gap 4 BUN 7 Creatinine 0.60 L Estim Creat Clear Calc 94 Estimated GFR > 60 Glucose 117 H POC Capillary Glucose 142 H 123 H Calcium 8.3 L Phosphorus Magnesium Total Bilirubin AST ALT Alkaline Phosphatase Total Protein Albumin 08/04/24 08/04/24 08/04/24 09:06 10:10 11:07 WBC RBC Hgb Hct MCV MCH MCHC RDW Plt Count MPV Immature Gran % (Auto) Neut % (Auto) Lymph % (Auto) [place] % (Auto) Eos % (Auto) Baso % (Auto) Lymph # (Auto) [place] # (Auto) Eos # (Auto) Baso # (Auto) Abs Immat Gran (auto) Absolute Neuts (auto) Absolute Nucleated RBC Nucleated RBC % Sodium Potassium Chloride Carbon Dioxide Anion Gap BUN Creatinine Estim Creat Clear Calc Estimated GFR Glucose POC Capillary Glucose 137 H 105 99 Calcium Phosphorus Magnesium Total Bilirubin AST ALT Alkaline Phosphatase Total Protein Albumin 08/04/24 12:08 WBC RBC Hgb Hct MCV MCH MCHC RDW Plt Count MPV Immature Gran % (Auto) Neut % (Auto) Lymph % (Auto) [place] % (Auto) Eos % (Auto) Baso % (Auto) Lymph # (Auto) [place] # (Auto) Eos # (Auto) Baso # (Auto) Abs Immat Gran (auto) Absolute Neuts (auto) Absolute Nucleated RBC Nucleated RBC % Sodium Potassium Chloride Carbon Dioxide Anion Gap BUN Creatinine Estim Creat Clear Calc Estimated GFR Glucose POC Capillary Glucose 96 Calcium Phosphorus Magnesium Total Bilirubin AST ALT Alkaline Phosphatase Total Protein Albumin Quality VTE Prophylaxis VTE prophylaxis: mechanical ordered
[2024-08-04] MEDS: POTASSIUM CHLORIDE INJ 40 MEQ in SODIUM CHLORIDE 0.9% IV 500 ML 130 MEQ IVPB (15:05)
[2024-08-04 16:00] VITALS: BP 147/88; PULSE 86; RESP 18; TEMP 36.8; O2SAT 99
[2024-08-04] MEDS: PROMETHAZINE HCL 25 MG SUPP.RECT RECTAL (16:11)
[2024-08-04 16:57] LABS: Glucose Point of Care 190 mg/dl (65-105)
[2024-08-04] MEDS: ONDANSETRON INJ 4 MG/2 ML VIAL IV PUSH (18:29)
[2024-08-04 20:04] LABS: Glucose Point of Care 164 mg/dl (65-105)
[2024-08-04 21:27] VITALS: BP 182/91; PULSE 91; RESP 18; TEMP 36.7; O2SAT 99
[2024-08-05] VITALS: BP 125/71; PULSE 86; RESP 16; TEMP 36.9; O2SAT 99
[2024-08-05] MEDS: HYDROmorphone HCL INJ (*CRX) 1 MG/ML SYR 0.5 MG IV PUSH (00:25)
[2024-08-05 06:28] VITALS: BP 130/80; PULSE 85; RESP 16; TEMP 36.7; O2SAT 98
[2024-08-05 06:59] LABS: Basophils Percent Auto 0.5 % (0.2-1.2); Eosinophils Absolute Auto 0.2 K/mm3 (0-0.3); Eosinophils Percent Auto 3.1 % (0-4.4); Hematocrit 33.9 % (37.0-47.0); Hemoglobin 11.2 g/dL (12.0-15.0); Immature Granulocyte Absolute 0.03 K/mm3 (0.00-0.031); Immature Granulocyte Percent A 0.4 % (0-0.5); Lymphocytes Absolute Auto 3.05 K/mm3 (0.9-3.2); Lymphocytes Percent Auto 39.9 % (18.3-44.2); Mean Corpuscular Hemoglobin 26.5 pg (26-34); Mean Corpuscular Volume 80.3 fl (80-100); Mean Platelet Volume 9.7 fl (7.4-10.4); Monocytes Absolute Auto 1.1 K/mm3 (0.1-0.6); Neutrophils Absolute Auto 3.2 K/mm3 (1.3-6.7); Neutrophils Percent Auto 42.1 % (45.5-73.1); Platelet Count Result 279 k/mm3 (150-375); Red Blood Count 4.22 M/mm3 (4.2-5.4); White Blood Count 7.6 K/mm3 (4.5-10.0)
[2024-08-05 07:45] LABS: Alanine Aminotransferase 17 U/L (6-35); Albumin Level 3.6 g/dL (3.5-5.1); Alkaline Phosphatase 52 U/L (38-126); Anion Gap 2 mmol/L (4-12); Aspartate Amino Transferase 25 U/L (14-36); Bilirubin,Total 1.1 mg/dL (0.2-1.3); Blood Urea Nitrogen 4 mg/dL (7-17); Calcium 8.6 mg/dL (8.4-10.2); Carbon Dioxide 30 mmol/L (22-30); Chloride 100 mmol/L (98-107); Estimated CRCL calculation 82 ml/min; Estimated Glomerular Filt Rate > 60; Glucose 71 mg/dL (65-110); Magnesium 1.6 mg/dL (1.6-2.3); Phosphorus 3.3 mg/dL (2.5-4.5); Potassium 3.6 mmol/L (3.4-5.0); Sodium 132 mmol/L (137-145)
[2024-08-05] MEDS: SCOPOLAMINE 1 MG PATCH 1 PATCH TRANSDERM (10:08)
[2024-08-05 10:17] LABS: Glucose Point of Care 102 mg/dl (65-105)
[2024-08-05] MEDS: lisinopriL 2.5 MG TABLET PO (10:30)
[2024-08-05] MEDS: FAMOTIDINE 20 MG/2 ML VIAL IV PUSH ×2 (10:31→21:13)
[2024-08-05 11:40] LABS: Glucose Point of Care 154 mg/dl (65-105)
--- NOTE | 2024-08-05 11:46 | PM.IMPN ---
Progress Note: A&P Assessment and Plan (1) DKA (diabetic ketoacidosis): Qualifiers: Diabetes mellitus complication detail: without coma Diabetes mellitus type: type 1 Qualified Code(s): E10.10 - Type 1 diabetes mellitus with ketoacidosis without coma Code(s): E11.10 - Type 2 diabetes mellitus with ketoacidosis without coma Status: Acute Assessment and Plan: s/p IVF and insulin infusion -CT scan abdomen and pelvis showed chronic pyelonephritis continue Sq Insulin regimen monitor (2) Nausea and vomiting: Qualifiers: Vomiting type: unspecified Qualified Code(s): R11.2 - Nausea with vomiting, unspecified Code(s): R11.2 - Nausea with vomiting, unspecified Status: Acute Assessment and Plan: Patient has history of chronic nausea vomiting and has history of cannabinoid hyperemesis syndrome and gastroparesis Patient smokes marijuana 2-3 times daily and is not interested in cutting down Start Zofran while monitoring QTC interval Clear liquid diet Scopolamine patch ordered Appreciate GI evaluation recommendation -continue Reglan for gastroparesis -HIDA scan showed low EF, but at overlap of Chronic cholecystitis vs gallbladder dysfunction -cannabis can cause hyper emesis, she has been counseled on cessation due to the cause and effect (3) Prolonged QT interval: Code(s): R94.31 - Abnormal electrocardiogram [ECG] [EKG] Status: Acute Assessment and Plan: Patient had prolonged QTC on initial EKG. Likely secondary to medications. 08/03: EKG done this morning shows resolution of QTC interval. Will monitor QTC (4) Gastroparesis: Code(s): K31.84 - Gastroparesis Status: Acute Assessment and Plan: Increase Reglan Plan Chronic pyelonephritis Ct AP reviewed Blood culture pending Rocephin Urology consulted DVT prophylaxis -Sq Lovenox Nutrition -clear liquid diet Code Status - Full Code Subjective Date/time seen: 08/05/24 11:46 Interval history: Patient was comfortable at bedside HIDA scan showed overlap chronic cholecystitis vs gallbladder dysfunction awaiting GI evaluation However patient started on ROcephin and Urology consulted for chronic pyelonephritis Review of Systems Review of Systems: All systems reviewed & are unremarkable except as noted in HPI and below (HPI) Exam Narrative: General: Pt is alert awake and in NAD Lungs/Chest: Trachea central Clear BS B/L, No crackles or wheezing. Cardiac: RRR. Normal S1 S2. No murmurs Circulation: Pedal pulses are intact and symmetrical. Abdomen: Normal bowel sounds.. Soft. NT. ND. Extremities: No clubbing, cyanosis or edema. Warm : Christian in place Neurologic: Follows commands. Moves all 4 extremities PERRL AO x3 Skin: No Rash, several tattoos on the skin all over body Const: General: no acute distress and uncomfortable Other: , female, moderately ill-appearing HENMT: Face/Nose/Sinus: Normal nares present Mouth: Yes dry mucous membranes (scant moisture noted) Eyes: General: appearance normal, both eyes and all related structures Sclera: sclerae normal Pupils: Equal, round and reactive pupils present EOM: EOMs intact bilaterally Resp: Effort & Inspection: normal respiratory effort Auscultation: clear to auscultation bilaterally Cardio: Rate: regular rate Rhythm: regular rhythm Other: S1-S2 present without murmur, rub, ectopy GI: Other: Midline tenderness in the upper, mid, and lower regions. No lateral tenderness. Abdomen soft and nondistended. Normoactive bowel sounds in all quadrants. Skin: General skin exam: normal color and no rashes or lesions noted Wounds: no wounds Neuro: Cranial nerves: Yes Equal, round and reactive pupils present Speech: normal speech Motor exam (neuro): 5/5 motor strength present throughout Sensory Exam: normal sensation Other: A&O x4 Extrem: General: normal to inspection Psych: Mental Status: mental status grossly normal Affect: normal affect Other: good insight and judgment, pleasant Objective Data Vital Signs Vital Signs: Vital Signs - 24 hr 08/04/24 12:00 08/04/24 12:00 08/04/24 12:00 Temperature 98.4 F Pulse Rate 87 99 Respiratory Rate 23 H Blood Pressure 155/81 H Pulse Oximetry 100 100 Oxygen Delivery Room Air 08/04/24 16:00 08/04/24 20:00 08/04/24 21:27 Temperature 98.3 F 98.1 F Pulse Rate 86 91 Respiratory Rate 18 18 Blood Pressure 147/88 H 182/91 H Pulse Oximetry 99 99 Oxygen Delivery Room Air 08/05/24 00:00 08/05/24 06:28 Temperature 98.5 F 98.0 F Pulse Rate 86 85 Respiratory Rate 16 16 Blood Pressure 125/71 130/80 Pulse Oximetry 99 98 Oxygen Delivery Intake/Output Intake/Output: Intake & Output 08/02/24 08/03/24 08/04/24 08/05/24 23:59 23:59 23:59 23:59 Intake Total 3223.3 2405.1 3080.5 150 Output Total 3650 750 Balance 3223.3 -1244.9 2330.5 150 Meds/Results Medications: Active Medications Generic Name Dose Route Start Last Admin Trade Name Freq PRN Reason Stop Dose Admin Acetaminophen 650 mg 08/02/24 18:42 Acetaminophen 650 Mg Suppository RECTAL Q6H PRN Mild Pain (1-3) or Fever Al Hydrox/Mg Hydrox/Simethicone 10 ml 08/02/24 22:24 Mag Hydrox/Al Hydrox/Simeth 30 Ml Udc PO TID PRN indigestion Dextrose 12.5 gm 08/04/24 10:30 Dextrose 50% 25 Gm/50 Ml Syringe IV PUSH PRN PRN Hypoglycemia Protocol Diphenhydramine HCl 25 mg 08/02/24 20:29 08/04/24 21:14 Diphenhydramine Hcl Inj 50 Mg/Ml Vial IV PUSH 25 mg Q4H PRN Administration Nausea And Vomiting Famotidine 20 mg 08/03/24 21:00 08/05/24 10:31 Famotidine 20 Mg/2 Ml Vial IV PUSH 20 mg Q12HR KARRIE Administration Glucagon 1 mg 08/04/24 10:30 Glucagon For Inj 1 Mg Vial IM PRN PRN Hypoglycemia Protocol Glucose 15 gm 08/04/24 10:30 Glucose Oral Gel 15 Gm Of Glucse In 37.5 Gm Tube PO PRN PRN Hypoglycemia Protocol Hydromorphone HCl 0.5 mg 08/03/24 08:37 08/05/24 00:25 Hydromorphone Hcl Inj (*Crx) 1 Mg/Ml Syr IV PUSH 0.5 mg Q3H PRN Administration Pain Rated 7-10 Dextrose 1,000 mls @ 100 mls/hr 08/04/24 10:30 Dextrose 5% 1,000 Ml IVPB PRN PRN Hypoglycemia Protocol Ceftriaxone Sodium 1 gm in 50 mls @ 100 mls/hr 08/05/24 09:00 08/05/24 10:10 Rocephin 1 Gm/Ns 50 Ml IVPB 100 mls/hr Q24H KARRIE Administration Insulin Aspart 2 - 4 units 08/04/24 21:00 08/04/24 21:16 Insulin Aspart (*Bkc) 100 Units/Ml SUB-Q Not Given HS [facility] Protocol Insulin Aspart 4 - 8 units 08/04/24 12:00 08/04/24 17:02 Insulin Aspart (*Bkc) 100 Units/Ml SUB-Q Not Given TIDWM [facility] Protocol Insulin Glargine 25 units 08/04/24 10:40 08/04/24 11:08 Insulin Glargine (*Bkc) 100 Units/Ml SUB-Q 25 units DAILY KARRIE Administration Lisinopril 2.5 mg 08/03/24 09:00 08/05/24 10:30 Lisinopril 2.5 Mg Tablet PO 2.5 mg DAILY KARRIE Administration Metoclopramide HCl 10 mg 08/04/24 12:00 08/05/24 06:15 Metoclopramide Hcl Inj 10 Mg/2 Ml Vial IV PUSH Not Given Q6HR KARRIE Ondansetron HCl 4 mg 08/03/24 08:13 08/04/24 18:29 Ondansetron Inj 4 Mg/2 Ml Vial IV PUSH 4 mg Q4H PRN Administration Nausea And Vomiting Promethazine HCl 25 mg 08/03/24 19:40 08/04/24 16:11 Promethazine Hcl 25 Mg Supp.Rect RECTAL 25 mg Q6HR PRN Administration Nausea And Vomiting Scopolamine 1 patch 08/05/24 09:00 08/05/24 10:08 Scopolamine 1 Mg Patch TRANSDERM 1 patch Q72HR KARRIE Administration Radiology Results: ITS Impressions Abdomen/Pelvis CT 08/02/24 16:51 IMPRESSION: Mild irregularity renal outline suggesting bilateral chronic pyelonephritis Normal appendix No acute abnormality is identified Hepatobiliary Scan Nuclear Medicine 08/05/24 10:31 IMPRESSION: 1. Gallbladder ejection fraction is at the lower limits of normal. This could be normal but is also within the range of overlap with gallbladder dysfunction or chronic cholecystitis in the appropriate clinical setting. Labs Labs: Laboratory Results - last 24 hr 08/04/24 08/04/24 08/04/24 12:08 16:55 19:36 WBC RBC Hgb Hct MCV MCH MCHC RDW Plt Count MPV Immature Gran % (Auto) Neut % (Auto) Lymph % (Auto) [place] % (Auto) Eos % (Auto) Baso % (Auto) Lymph # (Auto) [place] # (Auto) Eos # (Auto) Baso # (Auto) Abs Immat Gran (auto) Absolute Neuts (auto) Absolute Nucleated RBC Nucleated RBC % Sodium Potassium Chloride Carbon Dioxide Anion Gap BUN Creatinine Estim Creat Clear Calc Estimated GFR Glucose POC Capillary Glucose 96 190 H 164 H Calcium Phosphorus Magnesium Total Bilirubin AST ALT Alkaline Phosphatase Total Protein Albumin 08/05/24 08/05/24 08/05/24 06:25 10:13 11:30 WBC 7.6 RBC 4.22 Hgb 11.2 L Hct 33.9 L MCV 80.3 MCH 26.5 MCHC 33.0 RDW 14.0 Plt Count 279 MPV 9.7 Immature Gran % (Auto) 0.4 Neut % (Auto) 42.1 L Lymph % (Auto) 39.9 [place] % (Auto) 14.0 H Eos % (Auto) 3.1 Baso % (Auto) 0.5 Lymph # (Auto) 3.05 [place] # (Auto) 1.1 H Eos # (Auto) 0.2 Baso # (Auto) 0.0 Abs Immat Gran (auto) 0.03 Absolute Neuts (auto) 3.2 Absolute Nucleated RBC 0.000 Nucleated RBC % 0.0 Sodium 132 L Potassium 3.6 Chloride 100 Carbon Dioxide 30 Anion Gap 2 L BUN 4 L Creatinine 0.70 Estim Creat Clear Calc 82 Estimated GFR > 60 Glucose 71 POC Capillary Glucose 102 154 H Calcium 8.6 Phosphorus 3.3 Magnesium 1.6 Total Bilirubin 1.1 AST 25 ALT 17 Alkaline Phosphatase 52 Total Protein 6.0 L Albumin 3.6 Quality VTE Prophylaxis VTE prophylaxis: mechanical ordered
[2024-08-05] MEDS: METOCLOPRAMIDE HCL INJ 10 MG/2 ML VIAL IV PUSH ×2 (13:28→18:30)
[2024-08-05] MEDS: INSULIN GLARGINE (*BKC) 100 UNITS/ML 25 UNITS SUB-Q (13:32)
--- NOTE | 2024-08-05 14:36 | P.CONUR_ITS ---
Assessment and Plan Assessment and plan (1) Abnormal CT scan, kidney: Code(s): R93.429 - Abnormal radiologic findings on diagnostic imaging of unspecified kidney Status: Acute Plan 39-year-old female admitted with diabetic ketoacidosis in the setting of nausea, vomiting, and abdominal pain. Presentation concerning for insulin pump malfunction leading to hyperglycemia and ketoacidosis. Chronic abdominal pain and gastrointestinal symptoms with history of gastroparesis, GERD with esophagitis, and cannabinoid hyperemesis syndrome. Follows closely with GI. Urology consulted for incidental finding of 'mild, chronic bilateral pyelonephritis' identified on CT. Case discussed with Dr. Hooker. He personally reviewed abdominopelvic CT images from 07/2024 compared to 03/2024. No kidney, bladder, ureter abnormality identified. Low suspicion for acute or chronic pyelonephritis given she has no leukocytosis, UA negative for infection, afebrile with stable renal function. She denies flank pain, hematuria, and dysuria. No need for antibiotic therapy. No plan for inpatient urology intervention. Signing off. Please call with questions. Urology Consult Note HPI Date Seen: 08/05/24 Requesting Physician: Terence Godwin MD Primary Care Provider: Omkar Carmona MD Consult Narrative Reason for consult: Mild, chronic bilateral pyelonephritis Narrative: 39 year old female with past medical history of type 1 diabetes, previous DKA, gastroparesis, hyperlipidemia, diabetic neuropathy, and elevated liver enzymes presents with nausea, vomiting, and abdominal pain for the past 6 days. She was seen in the ED on 07/30/2024 and 07/31/2024 for similar complaints, treated with supportive care and discharged. Reported diffuse, squeezing, intermittent abdominal pain alleviated by hot baths. Associated constipation for 4-5 days. Blood sugars have been increasingly elevated, with polyuria, polydipsia, dry mouth, increased hunger, and fatigue. Has insulin pump, which appeared to have kinked tubing concerning for pump failure. History of bipolar disorder, depression, esophageal varices, GERD with esophagitis, and migraines. PERTINENT LABS: 08/05/2024 - WBC 7.6, HGB 11.2, Cr 0.7 08/02/2024 - Urinalysis: Trace blood, nitrate negative, leukocyte negative, 0-2 RBC, 0-5 WBC PERTINENT IMAGIN08/02/2024 CT Abdomen/Pelvis ([facility]) - Mild irregularity renal outline suggesting bilateral chronic pyelonephritis. Normal appendix. No acute abnormality identified. 04/22/2024 CT Abdomen/Pelvis ([facility]) - No acute intra- abdominal/pelvic process. Small sliding-type hiatal hernia. Couple small calcifications at the left ovary which could represent phleboliths or an ovarian dermoid. Review of Systems 2 Review of Systems: All systems reviewed & are unremarkable except as noted in HPI and below Constitutional: Constitutional: Reports no additional constitutional complaints Genitourinary: Genitourinary: Reports as per HPI [facility] Past Medical History Medical History (Updated 08/05/24 @ 15:35 by Zena Velásquez APRN) Cannabinoid hyperemesis syndrome Bipolar disorder Esophageal varices 04/2024 Depression Migraine Diabetic neuropathy GERD with esophagitis Hyperlipidemia Gastroparesis Elevated liver enzymes Type 1 diabetes mellitus Diagnosed at the age of 7. Hemoglobin A1c was 10.8% on 08/09/2020. DKA (diabetic ketoacidoses) multiple Surgical History Surgical History History of gynecological procedure 04/29/2020- mirena iud insertion - 10/23/2021 mirena iud removal -nm History of 3 sections Family History Family History Grandparent Breast cancer Father Diabetes mellitus Other Hypertension Social History Social History Smoking packs per day: 1 Smoking cigarettes per day: 20.0 Years smoked: 20 Smoking pack-years: 20.00 Smoking status: Current every day smoker Tobacco type: cigarettes Second hand tobacco smoke exposure: Yes Alcohol intake: never Drinks per week: 20 Alcohol use details: occasional Substance use: current Substance use type: marijuana Last use: 07/25/24 Do You Feel Safe in your Home?: Yes Lack of Transportation: No Lack of Food: Never True Current Housing: I Have Housing Concerned About Future Housing: No Difficulty Paying Gas/Electric Bills: No Difficulty Paying for Meds: No Currently Unemployed: No Education: High School Diploma/GED Difficulty w/ Childcare or Family Care: No Living arrangements: with family Occupation/Education: unemployed Additional occupation/education comments: not currently working Gender identity (if verbalized by the patient): Female Sexual Orientation (if Verbalized by the Patient): Straight or Heterosexual Spiritual care concerns: No Meds Home Medications and Allergies Home Medications ?Medication ?Instructions ?Recorded ?Confirmed ?Type folic acid 1 mg tablet 1 mg PO DAILY #90 tabs 01/09/24 08/02/24 Rx insulin pump cart,auto,BT,G6/7 #30 ea 01/09/24 08/02/24 Rx (Omnipod 5 G6-G7 Pods (Gen 5) subcutaneous cartridge) insulin pump cartridge,auto #1 ea 01/09/24 08/02/24 Rx dose,BT,G6/G7 with controller subcutaneous (Omnipod 5 G6-G7 Intro Kit(Gen 5) subcutaneous cartridge and controller) cholecalciferol (vitamin D3) 50 50 mcg PO DAILY #90 caps 01/17/24 08/02/24 Rx mcg (2,000 unit) capsule gabapentin 300 mg capsule 300 mg PO QHS #90 caps 01/17/24 08/02/24 Rx lisinopril 2.5 mg tablet 2.5 mg PO DAILY #90 tabs 01/30/24 08/02/24 Rx insulin pump cartridge,auto #1 ea 05/14/24 08/02/24 Rx dose,BT,G6/G7 with controller subcutaneous blood-glucose sensor (Dexcom G6 #9 ea 06/02/24 08/02/24 Rx Sensor device) glucagon 1 mg/0.2 mL subcutaneous 1 mg (0.2 mL) subcut ONCE #0.4 mL 06/02/24 08/02/24 Rx auto-injector (Gvoke HypoPen 2-Pack) glucose 4 gram chewable tablet 16 g (4 x 4 gram) PO Q15M PRN 06/02/24 08/02/24 Rx hypoglycemia #360 tabs insulin lispro 100 unit/mL See Rx Instructions subcut PRN 06/02/24 08/02/24 Rx subcutaneous solution insulin pump #60 mL insulin pump cart,auto,BT,G6/7 #45 ea 06/02/24 08/02/24 Rx pantoprazole 40 mg tablet,delayed 40 mg PO Q12H #180 tabs 07/01/24 08/02/24 Rx release sucralfate 100 mg/mL oral 1 g (10 mL) PO Q6H #1,000 mL 07/01/24 08/02/24 Rx suspension mecobalamin (vitamin B12) 500 mcg 500 mcg PO DAILY 07/15/24 08/02/24 History chewable tablet metoclopramide HCl 10 mg tablet 10 mg PO Q6H 07/15/24 08/02/24 History multivitamin 1 tablet PO DAILY 07/15/24 08/02/24 History ondansetron 4 mg disintegrating 4 mg PO BID PRN nausea and 07/15/24 08/02/24 Rx tablet vomiting #20 tabs potassium gluconate 2 mEq tablet 2 meq PO DAILY 07/15/24 08/02/24 History acetaminophen 500 mg capsule 1,000 mg (2 x 500 mg) PO Q6H PRN 07/31/24 08/02/24 Rx pain #30 caps aluminum-mag hydroxide-simethicone 10 ml PO TID PRN indigestion 07/31/24 08/02/24 Rx 400 mg-400 mg-40 mg/5 mL oral susp #3,000 mL (Liquid Antacid) ibuprofen 600 mg tablet 600 mg PO TID PRN pain #30 tabs 07/31/24 08/02/24 Rx promethazine 25 mg rectal 25 mg RECTAL Q6H PRN nausea and 07/31/24 08/02/24 Rx suppository vomiting #12 ea melatonin 10 mg tablet 10 mg PO HS PRN Insomnia 08/02/24 08/02/24 History Allergies Allergy/AdvReac Type Severity Reaction Status Date / Time No Known Allergies Allergy Verified 08/02/24 12:23 Vital Signs Vital Signs - 24 hr 08/04/24 16:00 08/04/24 20:00 08/04/24 21:27 Temperature 98.3 F 98.1 F Pulse Rate 86 91 Respiratory Rate 18 18 Blood Pressure 147/88 H 182/91 H Pulse Oximetry 99 99 Oxygen Delivery Room Air 08/05/24 00:00 08/05/24 06:28 Temperature 98.5 F 98.0 F Pulse Rate 86 85 Respiratory Rate 16 16 Blood Pressure 125/71 130/80 Pulse Oximetry 99 98 Oxygen Delivery Exam 2 Const: General: comfortable and no acute distress Eyes: General: appearance normal, both eyes and all related structures Resp: Effort & Inspection: normal respiratory effort Skin: General skin exam: normal color and no rashes or lesions noted Psych: Speech and movement: Normal speech and movement present Affect: n ormal affect Results Labs 08/05/24 06:25 08/05/24 06:25 Labs: Short CBC 08/05/24 Range/Units 06:25 WBC 7.6 (4.5-10.0) K/mm3 Hgb 11.2 L (12.0-15.0) g/dL Hct 33.9 L (37.0-47.0) % Plt Count 279 (150-375) k/mm3 BMP 08/05/24 06:25 Sodium 132 L Potassium 3.6 Chloride 100 Carbon Dioxide 30 BUN 4 L Creatinine 0.70 Glucose 71 Calcium 8.6 Liver Function 08/05/24 Range/Units 06:25 Total Bilirubin 1.1 (0.2-1.3) mg/dL AST 25 (14-36) U/L ALT 17 (6-35) U/L Alkaline Phosphatase 52 (38-126) U/L Albumin 3.6 (3.5-5.1) g/dL
--- NOTE | 2024-08-05 15:19 | WPDGIPROGNO ---
Progress Note: A&P Assessment and Plan (1) Nausea and vomiting: Qualifiers: Vomiting type: unspecified Qualified Code(s): R11.2 - Nausea with vomiting, unspecified Code(s): R11.2 - Nausea with vomiting, unspecified Status: Acute Assessment and Plan: chronic, on antiemetics at home here with dka and more nausea than usual advance diet, she is feeling better home soon and then she can follow-up office in 3-4 weeks (2) Gastroparesis: Code(s): K31.84 - Gastroparesis Status: Acute Assessment and Plan: clinically better, on reglan and she is eating (3) Cannabinoid hyperemesis syndrome: Code(s): R11.2 - Nausea with vomiting, unspecified; F12.90 - Cannabis use, unspecified, uncomplicated Status: Acute (4) Uncontrolled type 1 diabetes mellitus: Qualifiers: Glycemic state: with hyperglycemia Qualified Code(s): E10.65 - Type 1 diabetes mellitus with hyperglycemia Status: Acute (5) DKA (diabetic ketoacidosis): Qualifiers: Diabetes mellitus complication detail: without coma Diabetes mellitus type: type 1 Qualified Code(s): E10.10 - Type 1 diabetes mellitus with ketoacidosis without coma Code(s): E11.10 - Type 2 diabetes mellitus with ketoacidosis without coma Status: Acute Subjective Date/time seen: 08/05/24 15:19 Interval history: moved to floor, feeling better, she missed earlier dose of reglan and became more nauseous, now doing better Review of Systems Review of Systems: All systems reviewed & are unremarkable except as noted in HPI and below Exam Const: General: comfortable and no acute distress HENMT: Face/Nose/Sinus: Normal nares present Eyes: General: appearance normal, both eyes and all related structures Neck: Neck: no JVD Resp: Auscultation: clear to auscultation bilaterally Cardio: Rate: regular rate Rhythm: regular rhythm GI: Inspection: non-distended GI Palp: Yes Soft to palpation and No Tenderness to palpation present (GI) Auscultation: normal bowel sounds Skin: General skin exam: normal color Neuro: Speech: normal speech Motor exam (neuro): 5/5 motor strength present throughout Extrem: General: normal to inspection Psych: Mental Status: mental status grossly normal Objective Data Vital Signs Vital Signs: Vital Signs - 24 hr 08/04/24 16:00 08/04/24 20:00 08/04/24 21:27 Temperature 98.3 F 98.1 F Pulse Rate 86 91 Respiratory Rate 18 18 Blood Pressure 147/88 H 182/91 H Pulse Oximetry 99 99 Oxygen Delivery Room Air 08/05/24 00:00 08/05/24 06:28 Temperature 98.5 F 98.0 F Pulse Rate 86 85 Respiratory Rate 16 16 Blood Pressure 125/71 130/80 Pulse Oximetry 99 98 Oxygen Delivery Intake/Output Intake/Output: Intake & Output 08/02/24 08/03/24 08/04/24 08/05/24 23:59 23:59 23:59 23:59 Intake Total 3223.3 2405.1 3080.5 390 Output Total 3650 750 Balance 3223.3 -1244.9 2330.5 390 Meds/Results Medications: Active Medications Generic Name Dose Route Start Last Admin Trade Name Freq PRN Reason Stop Dose Admin Acetaminophen 650 mg 08/02/24 18:42 Acetaminophen 650 Mg Suppository RECTAL Q6H PRN Mild Pain (1-3) or Fever Al Hydrox/Mg Hydrox/Simethicone 10 ml 08/02/24 22:24 Mag Hydrox/Al Hydrox/Simeth 30 Ml Udc PO TID PRN indigestion Dextrose 12.5 gm 08/04/24 10:30 Dextrose 50% 25 Gm/50 Ml Syringe IV PUSH PRN PRN Hypoglycemia Protocol Diphenhydramine HCl 25 mg 08/02/24 20:29 08/04/24 21:14 Diphenhydramine Hcl Inj 50 Mg/Ml Vial IV PUSH 25 mg Q4H PRN Administration Nausea And Vomiting Enoxaparin Sodium 40 mg 08/06/24 09:00 Enoxaparin 40 Mg/0.4 Ml Syringe SUB-Q DAILY KARRIE Famotidine 20 mg 08/03/24 21:00 08/05/24 10:31 Famotidine 20 Mg/2 Ml Vial IV PUSH 20 mg Q12HR KARRIE Administration Glucagon 1 mg 08/04/24 10:30 Glucagon For Inj 1 Mg Vial IM PRN PRN Hypoglycemia Protocol Glucose 15 gm 08/04/24 10:30 Glucose Oral Gel 15 Gm Of Glucse In 37.5 Gm Tube PO PRN PRN Hypoglycemia Protocol Hydromorphone HCl 0.5 mg 08/03/24 08:37 08/05/24 00:25 Hydromorphone Hcl Inj (*Crx) 1 Mg/Ml Syr IV PUSH 0.5 mg Q3H PRN Administration Pain Rated 7-10 Dextrose 1,000 mls @ 100 mls/hr 08/04/24 10:30 Dextrose 5% 1,000 Ml IVPB PRN PRN Hypoglycemia Protocol Ceftriaxone Sodium 1 gm in 50 mls @ 100 mls/hr 08/05/24 09:00 08/05/24 10:10 Rocephin 1 Gm/Ns 50 Ml IVPB 100 mls/hr Q24H KARRIE Administration Insulin Aspart 2 - 4 units 08/04/24 21:00 08/04/24 21:16 Insulin Aspart (*Bkc) 100 Units/Ml SUB-Q Not Given HS KARRIE Protocol Insulin Aspart 4 - 8 units 08/04/24 12:00 08/05/24 13:36 Insulin Aspart (*Bkc) 100 Units/Ml SUB-Q Not Given TIDWM KARRIE Protocol Insulin Glargine 25 units 08/04/24 10:40 08/05/24 13:32 Insulin Glargine (*Bkc) 100 Units/Ml SUB-Q 25 units DAILY KARRIE Administration Lisinopril 2.5 mg 08/03/24 09:00 08/05/24 10:30 Lisinopril 2.5 Mg Tablet PO 2.5 mg DAILY KARRIE Administration Metoclopramide HCl 10 mg 08/04/24 12:00 08/05/24 13:28 Metoclopramide Hcl Inj 10 Mg/2 Ml Vial IV PUSH 10 mg Q6HR KARRIE Administration Ondansetron HCl 4 mg 08/03/24 08:13 08/04/24 18:29 Ondansetron Inj 4 Mg/2 Ml Vial IV PUSH 4 mg Q4H PRN Administration Nausea And Vomiting Promethazine HCl 25 mg 08/03/24 19:40 08/04/24 16:11 Promethazine Hcl 25 Mg Supp.Rect RECTAL 25 mg Q6HR PRN Administration Nausea And Vomiting Scopolamine 1 patch 08/05/24 09:00 08/05/24 10:08 Scopolamine 1 Mg Patch TRANSDERM 1 patch Q72HR KARRIE Administration Radiology Results: ITS Impressions Abdomen/Pelvis CT 08/02/24 16:51 IMPRESSION: Mild irregularity renal outline suggesting bilateral chronic pyelonephritis Normal appendix No acute abnormality is identified Hepatobiliary Scan Nuclear Medicine 08/05/24 10:31 IMPRESSION: 1. Gallbladder ejection fraction is at the lower limits of normal. This could be normal but is also within the range of overlap with gallbladder dysfunction or chronic cholecystitis in the appropriate clinical setting. Labs Labs: Laboratory Results - last 24 hr 08/04/24 08/04/24 08/05/24 16:55 19:36 06:25 WBC 7.6 RBC 4.22 Hgb 11.2 L Hct 33.9 L MCV 80.3 MCH 26.5 MCHC 33.0 RDW 14.0 Plt Count 279 MPV 9.7 Immature Gran % (Auto) 0.4 Neut % (Auto) 42.1 L Lymph % (Auto) 39.9 [place] % (Auto) 14.0 H Eos % (Auto) 3.1 Baso % (Auto) 0.5 Lymph # (Auto) 3.05 [place] # (Auto) 1.1 H Eos # (Auto) 0.2 Baso # (Auto) 0.0 Abs Immat Gran (auto) 0.03 Absolute Neuts (auto) 3.2 Absolute Nucleated RBC 0.000 Nucleated RBC % 0.0 Sodium 132 L Potassium 3.6 Chloride 100 Carbon Dioxide 30 Anion Gap 2 L BUN 4 L Creatinine 0.70 Estim Creat Clear Calc 82 Estimated GFR > 60 Glucose 71 POC Capillary Glucose 190 H 164 H Calcium 8.6 Phosphorus 3.3 Magnesium 1.6 Total Bilirubin 1.1 AST 25 ALT 17 Alkaline Phosphatase 52 Total Protein 6.0 L Albumin 3.6 08/05/24 08/05/24 10:13 11:30 WBC RBC Hgb Hct MCV MCH MCHC RDW Plt Count MPV Immature Gran % (Auto) Neut % (Auto) Lymph % (Auto) [place] % (Auto) Eos % (Auto) Baso % (Auto) Lymph # (Auto) [place] # (Auto) Eos # (Auto) Baso # (Auto) Abs Immat Gran (auto) Absolute Neuts (auto) Absolute Nucleated RBC Nucleated RBC % Sodium Potassium Chloride Carbon Dioxide Anion Gap BUN Creatinine Estim Creat Clear Calc Estimated GFR Glucose POC Capillary Glucose 102 154 H Calcium Phosphorus Magnesium Total Bilirubin AST ALT Alkaline Phosphatase Total Protein Albumin
[2024-08-05 15:56] VITALS: BP 137/87; PULSE 90; RESP 20; TEMP 36.6; O2SAT 100
[2024-08-05] MEDS: diphenhydrAMINE HCl INJ 50 MG/ML VIAL 25 MG IV PUSH (16:28)
[2024-08-05] MEDS: INSULIN ASPART (*BKC) 100 UNITS/ML SUB-Q (16:33)
[2024-08-05 16:44] LABS: Glucose Point of Care 288 mg/dl (65-105)
[2024-08-05 21:17] LABS: Glucose Point of Care 128 mg/dl (65-105)
[2024-08-05 22:00] VITALS: BP 102/60; PULSE 93; RESP 16; TEMP 36.6; O2SAT 99
[2024-08-05] MEDS: MELATONIN 5 MG TABLET PO (23:22)
[2024-08-06] MEDS: METOCLOPRAMIDE HCL INJ 10 MG/2 ML VIAL IV PUSH ×3 (01:04→12:46)
[2024-08-06 05:07] VITALS: BP 92/58; PULSE 93; RESP 14; TEMP 36.7; O2SAT 100
[2024-08-06 08:27] LABS: Basophils Absolute Auto 0.1 K/mm3 (0.0-0.1); Basophils Percent Auto 0.9 % (0.2-1.2); Eosinophils Absolute Auto 0.2 K/mm3 (0-0.3); Eosinophils Percent Auto 3.7 % (0-4.4); Hematocrit 34.7 % (37.0-47.0); Hemoglobin 11.2 g/dL (12.0-15.0); Immature Granulocyte Absolute 0.02 K/mm3 (0.00-0.031); Immature Granulocyte Percent A 0.3 % (0-0.5); Lymphocytes Absolute Auto 2.05 K/mm3 (0.9-3.2); Lymphocytes Percent Auto 31.3 % (18.3-44.2); Mean Corpuscular HGB Conc 32.3 g/dl (32-36); Mean Corpuscular Hemoglobin 26.2 pg (26-34); Mean Corpuscular Volume 81.1 fl (80-100); Mean Platelet Volume 9.9 fl (7.4-10.4); Monocytes Absolute Auto 0.8 K/mm3 (0.1-0.6); Monocytes Percent Auto 12.4 % (2.6-8.5); Neutrophils Absolute Auto 3.4 K/mm3 (1.3-6.7); Neutrophils Percent Auto 51.4 % (45.5-73.1); Platelet Count Result 253 k/mm3 (150-375); Red Blood Count 4.28 M/mm3 (4.2-5.4); Red Cell Distribution Width 14.4 % (11.5-14.5); White Blood Count 6.5 K/mm3 (4.5-10.0)
[2024-08-06 08:39] LABS: Glucose Point of Care 114 mg/dl (65-105)
[2024-08-06 08:43] LABS: Alanine Aminotransferase 18 U/L (6-35); Albumin Level 3.7 g/dL (3.5-5.1); Alkaline Phosphatase 54 U/L (38-126); Anion Gap 5 mmol/L (4-12); Aspartate Amino Transferase 26 U/L (14-36); Bilirubin,Total 0.6 mg/dL (0.2-1.3); Blood Urea Nitrogen 9 mg/dL (7-17); Calcium 8.9 mg/dL (8.4-10.2); Carbon Dioxide 28 mmol/L (22-30); Chloride 102 mmol/L (98-107); Estimated CRCL calculation 72 ml/min; Estimated Glomerular Filt Rate > 60; Glucose 94 mg/dL (65-110); Magnesium 1.7 mg/dL (1.6-2.3); Potassium 3.9 mmol/L (3.4-5.0); Sodium 135 mmol/L (137-145)
[2024-08-06] MEDS: FAMOTIDINE 20 MG/2 ML VIAL IV PUSH (09:17)
[2024-08-06] MEDS: ENOXAPARIN 40 MG/0.4 ML SYRINGE SUB-Q (09:18)
[2024-08-06] MEDS: INSULIN GLARGINE (*BKC) 100 UNITS/ML 25 UNITS SUB-Q (09:18)
[2024-08-06] MEDS: lisinopriL 2.5 MG TABLET PO (09:18)
[2024-08-06 12:14] LABS: Glucose Point of Care 244 mg/dl (65-105)
[2024-08-06] MEDS: INSULIN ASPART (*BKC) 100 UNITS/ML SUB-Q (12:46)
[2024-08-06 14:00] VITALS: BP 93/58; PULSE 96; RESP 20; TEMP 36.3; O2SAT 98
--- NOTE | 2024-08-06 14:40 | PM.DS ---
DS: Admitting Diagnosis Discharge Date 08/06/24 Admitting Diagnosis Nausea, Vomiting, Abdominal Pain DS: Discharge Diagnosis Discharge Diagnosis (1) DKA (diabetic ketoacidosis): Qualifiers: Diabetes mellitus complication detail: without coma Diabetes mellitus type: type 1 Qualified Code(s): E10.10 - Type 1 diabetes mellitus with ketoacidosis without coma Code(s): E11.10 - Type 2 diabetes mellitus with ketoacidosis without coma Status: Acute DS: Summary Hospital Course Hospital Course: 39 y/o F presents here with nausea, vomiting, and abdominal pain with PMH of type 1 diabetes, previous history of DKA, gastroparesis, hyperlipidemia, diabetic neuropathy and elevated liver enzymes. The patient presents here via EMS from home for further evaluation of nausea, vomiting, and abdominal pain. She reports onset approximately 6 days ago. Initially seen at [facility] for same complaints early in the evening on 07/30. Then went to [place] ER on same day (07/30) for nausea and vomiting. UA and CT were unremarkable. She was discharged at that time and educated on cannabinoid hyperemesis syndrome and encouraged to follow a clear liquid diet. Then return to [place] ER on 07/31/2024 for same complaints. Patient was treated with Benadryl and Haldol which resolved her nausea and vomiting. Discharged with ibuprofen, Tylenol, promethazine suppository, and Maalox to manage her symptoms at home. After returning home she was unable to tolerate PO. The patient has a history of chronic abdominal pain, gastroparesis for which she takes Zofran and Reglan at home, and follows with GI. She returned today due to recurrence/persistence of nausea and vomiting. Reports that she has been unable to keep food or drink down over the last 6 days. She reports that she has not smoked marijuana since onset of symptoms, last use around 6-8 days ago. Continues to have diffuse abdominal pain which she describes as squeezing, nonradiating, constant initially and now intermittent with increased pain management, no aggravating factors, and alleviated by hot baths. Patient is also reporting constipation with last bowel movement approximately 4-5 days ago. Patient has known type 1 diabetes. Glucose levels became elevated today. She reports associated polyuria, polydipsia, dry mouth, increased hunger, and fatigue. Denies blurred vision. She currently has an insulin pump in place, was removed in the ED. Pod tubing looked abnormal (kinked), raising concerns for pump failure. Has associated history of DKA with last occurrence in mid Jun., seen here. Initial VS at presentation: 97.6? F, HR 112, RR 20, 130/98, and 99% on RA. ED workup showed: WBC 23, no anemia, platelet count 378, VBG showed pH of 7.291, sodium 130 (when corrected for hyperglycemia, 138), anion gap 27, initial glucose 434, CK 24, beta hydroxy 9.32. UA showed 1+ Ki protein, 3+ glucose, 4+ ketones, otherwise unremarkable. CT of the abdomen/pelvis showed mild irregularity renal outline suggesting bilateral chronic pyelonephritis, normal appendix, no acute abnormality identified. Patient was managed for DKA in the ICU and was successfully transitioned to subQ regimen which she has done very well on. However patient noted she will put on her insulin pump when she gets home. however, she is discharged on current subQ regimen. CT AP showed chronic pyelonephritis however, consulted Urology and after evaluated ruled out chronic pyelonephritis. thus abx were discontinued. Also evaluated for Cholecystitis, CT AP, US Abd were unremarkable. HIDA scan showed low ejection fraction, suspicious for chronic cholecystitis and gallbladder dysfunction. GI was on board and recommended outpatient follow up. Patient was on IV reglan and has tolerated regular diet. No pain and vomiting has resolved. She is discharged to follow up with PCP in 3-5 days, F/u with GI as instructed. Assessment and Plan (1) DKA (diabetic ketoacidosis): Qualifiers: Diabetes mellitus complication detail: without coma Diabetes mellitus type: type 1 Qualified Code(s): E10.10 - Type 1 diabetes mellitus with ketoacidosis without coma Code(s): E11.10 - Type 2 diabetes mellitus with ketoacidosis without coma Status: Acute Assessment and Plan: s/p IVF and insulin infusion -CT scan abdomen and pelvis showed chronic pyelonephritis continue Sq Insulin regimen monitor (2) Nausea and vomiting: Qualifiers: Vomiting type: unspecified Qualified Code(s): R11.2 - Nausea with vomiting, unspecified Code(s): R11.2 - Nausea with vomiting, unspecified Status: Acute Assessment and Plan: Patient has history of chronic nausea vomiting and has history of cannabinoid hyperemesis syndrome and gastroparesis Patient smokes marijuana 2-3 times daily and is not interested in cutting down Start Zofran while monitoring QTC interval Clear liquid diet Scopolamine patch ordered Appreciate GI evaluation recommendation -continue Reglan for gastroparesis -HIDA scan showed low EF, but at overlap of Chronic cholecystitis vs gallbladder dysfunction -cannabis can cause hyper emesis, she has been counseled on cessation due to the cause and effect (3) Prolonged QT interval: Code(s): R94.31 - Abnormal electrocardiogram [ECG] [EKG] Status: Acute Assessment and Plan: Patient had prolonged QTC on initial EKG. Likely secondary to medications. 08/03: EKG done this morning shows resolution of QTC interval. Will monitor QTC (4) Gastroparesis: Code(s): K31.84 - Gastroparesis Status: Acute Assessment and Plan: Increase Reglan Plan Chronic pyelonephritis Ct AP reviewed Blood culture pending [facility] consulted Time Spent with Patient Time attestation: Total time spent providing and/or coordinating discharge services: DS: Data Data Completed and Pending Labs on day of discharge: Labs from last 24 hours 08/06/24 08/06/24 08/06/24 12:05 08:15 07:59 WBC 6.5 RBC 4.28 Hgb 11.2 L Hct 34.7 L MCV 81.1 MCH 26.2 MCHC 32.3 RDW 14.4 Plt Count 253 MPV 9.9 Immature Gran % (Auto) 0.3 Neut % (Auto) 51.4 Lymph % (Auto) 31.3 [place] % (Auto) 12.4 H Eos % (Auto) 3.7 Baso % (Auto) 0.9 Lymph # (Auto) 2.05 [place] # (Auto) 0.8 H Eos # (Auto) 0.2 Baso # (Auto) 0.1 Abs Immat Gran (auto) 0.02 Absolute Neuts (auto) 3.4 Absolute Nucleated RBC 0.000 Nucleated RBC % 0.0 Sodium 135 L Potassium 3.9 Chloride 102 Carbon Dioxide 28 Anion Gap 5 BUN 9 D Creatinine 0.80 Estim Creat Clear Calc 72 Estimated GFR > 60 Glucose 94 POC Capillary Glucose 244 H 114 H Calcium 8.9 Magnesium 1.7 Total Bilirubin 0.6 AST 26 ALT 18 Alkaline Phosphatase 54 Total Protein 7.0 Albumin 3.7 08/05/24 08/05/24 21:08 16:32 WBC RBC Hgb Hct MCV MCH MCHC RDW Plt Count MPV Immature Gran % (Auto) Neut % (Auto) Lymph % (Auto) [place] % (Auto) Eos % (Auto) Baso % (Auto) Lymph # (Auto) [place] # (Auto) Eos # (Auto) Baso # (Auto) Abs Immat Gran (auto) Absolute Neuts (auto) Absolute Nucleated RBC Nucleated RBC % Sodium Potassium Chloride Carbon Dioxide Anion Gap BUN Creatinine Estim Creat Clear Calc Estimated GFR Glucose POC Capillary Glucose 128 H 288 H Calcium Magnesium Total Bilirubin AST ALT Alkaline Phosphatase Total Protein Albumin Preliminary micro results at discharge 08/05/24 11:42 Blood Culture - Preliminary Blood 08/05/24 11:51 Blood Culture - Preliminary Blood Discharge Plan Discharge Attending physician on discharge: Jaya Peña Consulting providers: Dimitri Paiz; Rodolfo Hooker; Robin Dc Discharging Clinician: Jaya Peña Anticipated Discharge Date/Time: 08/06/24 14:32 Patient Disposition: Home, Self-Care Activity: as tolerated Diet: as tolerated and diabetic Patient Instructions: Antibiotic Form Patient Language: Faroese Stand Alone Forms: General Discharge Information Follow-up/Referrals: Rodolfo Hooker MD [Physician] - Nam Carmona MD [Primary Care Provider] - (Follow-up PCP 3-5 days.) Robin Dc MD [Physician] - (F/u with GI as instructed ) Discharge Medications: New insulin aspart U-100 [Novolog FlexPen U-100 Insulin] 100 unit/mL (3 mL) insulin pen 5 unit subcut .tid with meals 30 Days Qty: 15 0RF insulin glargine [Lantus U-100 Insulin] 100 unit/mL Solution 25 unit subcut DAILY 30 Days Qty: 15 0RF Continued (DME) Omnipod 5 G6-G7 Intro Kt(Gen5) Cartridge See Rx Instructions .Route Qty: 1 0RF Rx Instructions: As directed (DME) Omnipod 5 G6-G7 Pods (Gen 5) Cartridge See Rx Instructions .Route Qty: 30 0RF Rx Instructions: Change every 3 days folic acid 1 mg tablet 1 mg PO DAILY Qty: 90 0RF insulin lispro 100 unit/mL solution See Rx Instructions subcut PRN MDD 50 Qty: 60 0RF Rx Instructions: for insulin pump (DME) Dexcom G6 Sensor Device See Rx Instructions .ROUTE .MEDSUPPLY Qty: 9 2RF Rx Instructions: every 10 days (DME) insulin pump cart,auto,BT,G6/7 Cartridge See Rx Instructions .Route Qty: 45 4RF Rx Instructions: Change every 3 days Gvoke HypoPen 2-Pack 1 mg/0.2 mL auto-injector 1 mg subcut ONCE Qty: 0.4 0RF Rx Instructions: as a single dose; may repeat once after 15 minutes if no response glucose 4 gram tablet,chewable 16 g PO Q15M PRN (Reason: hypoglycemia) Qty: 360 0RF Rx Instructions: until symptoms of low blood sugar are controlled mecobalamin (vitamin B12) 500 mcg tablet,chewable 500 mcg PO DAILY multivitamin Tablet 1 tablet PO DAILY potassium gluconate 2 mEq tablet 2 meq PO DAILY ondansetron 4 mg tablet,disintegrating 4 mg PO BID PRN (Reason: nausea and vomiting) Qty: 20 0RF lisinopril 2.5 mg tablet 2.5 mg PO DAILY Qty: 90 0RF pantoprazole 40 mg tablet,delayed release (DR/EC) 40 mg PO Q12H Qty: 180 3RF sucralfate 100 mg/mL suspension 1 g PO Q6H Qty: 1000 0RF melatonin 10 mg Tablet 10 mg PO HS PRN (Reason: Insomnia) ibuprofen 600 mg tablet 600 mg PO TID PRN (Reason: pain) Qty: 30 0RF acetaminophen 500 mg capsule 1,000 mg PO Q6H PRN (Reason: pain) Qty: 30 0RF promethazine 25 mg suppository 25 mg RECTAL Q6H PRN (Reason: nausea and vomiting) Qty: 12 0RF alum-mag hydroxide-simeth [Liquid Antacid] 400-400-40 mg/5 mL suspension 10 ml PO TID PRN (Reason: indigestion) Qty: 3000 0RF cholecalciferol (vitamin D3) 50 mcg (2,000 unit) capsule 50 mcg PO DAILY Qty: 90 0RF gabapentin 300 mg capsule 300 mg PO QHS Qty: 90 1RF (DME) Omnipod 5 G6-G7 Intro Kt(Gen5) Cartridge See Rx Instructions .Route Qty: 1 0RF Rx Instructions: As directed metoclopramide HCl 10 mg tablet 10 mg PO Q6H 30 Days Qty: 120 0RF Date of admission: 08/02/24 18:42 Primary Care Provider: Nam Carmona Admitting Provider: Abdiel Godwin Attending physician on admission: Abdiel Godwin Condition: Serious
== END 2024-08-06 15:55 | disposition home or self-care (01) ==
LOC: ANHED 18:02 → ANH3MEDSUR 08-05 10:06 → ANHICU 08-07 07:24
PROVIDERS: General Practice; Internal Medicine; Student in an Organized Health Care Education/Training Program; Admitting Provider Internal Medicine; Emergency Provider Physician Assistant; PCP Family Medicine; Visit Provider Internal Medicine
DX: E10.10 Type 1 diabetes mellitus with ketoacidosis without coma (principal); E10.43 Type 1 diabetes mellitus with diabetic autonomic (poly)neuropathy; K31.84 Gastroparesis; R94.31 Abnormal electrocardiogram [ECG] [EKG]; R11.14 Bilious vomiting; F12.90 Cannabis use, unspecified, uncomplicated; K21.00 Gastro-esophageal reflux disease with esophagitis, without bleeding; R63.0 Anorexia; Z68.26 Body mass index [BMI] 26.0-26.9, adult; E87.1 Hypo-osmolality and hyponatremia; D64.9 Anemia, unspecified; R74.8 Abnormal levels of other serum enzymes; E78.5 Hyperlipidemia, unspecified; G43.909 Migraine, unspecified, not intractable, without status migrainosus; F31.9 Bipolar disorder, unspecified; F10.10 Alcohol abuse, uncomplicated; F17.210 Nicotine dependence, cigarettes, uncomplicated; Z20.822 Contact with and (suspected) exposure to COVID-19; Z79.4 Long term (current) use of insulin; Z96.41 Presence of insulin pump (external) (internal); Z79.899 Other long term (current) drug therapy
CPT/HCPCS: 36415; 74177; 78227; 80048; 80053; 81001; 81025; 82010; 82550; 82803; 82948; 83036; 83605; 83690; 83735; 84100; 85025; 87040; 87086; 87641; 93005; 96361; 96365; 96366; 96372; 96375; 96376; 99285; A9270; A9537; G0378; G0379; J0612; J0696; J1171; J1200; J1650; J1815; J1885; J2270; J2405; J2470; J2765; J2805; J3475; J3480; J7030; J7040; J7120; Q9967

== ENCOUNTER 2024-10-02 03:16 | Inpatient (IN) | payer OTHER, SELFPAY ==
[2024-10-02] VITALS (11 sets, daily range): BP systolic 119–164; BP diastolic 58–99; PULSE 119–145; RESP 20–29; TEMP 36.4–36.9; O2SAT 98–100; BMI 25.1
--- NOTE | ~2024-10-02 | XR_ITS ---
Portable chest x-ray Comparison: 06/26/2024 Clinical History: Nausea and vomiting Findings: Lungs are clear, without focal consolidation or pleural effusion. Cardiomediastinal silho uette is stable. Bones and soft tissues are unremarkable. Impression: Normal chest. Reviewed, dictated and finalized at location . [facility] Impression: Normal chest.
--- NOTE | ~2024-10-02 | XR_ITS ---
EXAMINATION: XR abdomen obstructive series DATE: 10/03/2024 08:37 INDICATION: Nausea and vomiting. TECHNIQUE: Upright and supine views of the abdomen were obtained. COMPARISON: CT abdomen and pelvis 10/02/2024 FINDINGS: There are no dilated loops of bowel. There is a small volume of stool in the colon. No free intraperitoneal gas. There are phleboliths in the pelvis. IMPRESSION: 1. Normal bowel gas pattern. Reviewed, dictated and finalized at location A. PICU
--- NOTE | ~2024-10-02 | CT_ITS ---
CT of the Abdomen and Pelvis: Indication: Abdominal pain Technique: 2.5 mm axial scans were obtained through the abdomen and pelvis following intravenous adm inistration of 100 cc of Omnipaque 350. Dose reduction technique was used on this scan by utilizing a utomated exposure control and iterative reconstruction technique. The dose-length product (DLP) was 3 71.75 mGy-cm. COMPARISON: 08/02/2024 Findings: Scans through the lung bases are unremarkable. There is diffuse hepatic steatosis. The spleen, pancreas, gallbladder, adrenals and kidneys are withi n normal limits. No evidence of aortic aneurysm. No lymphadenopathy. No bowel obstruction. Questionable wall thickening cecum/ascending colon versus underdistention. Images through the pelvis were performed. Urinary bladder unremarkable. No pelvic mass seen. No ascit es. Impression: Questionable infectious/inflammatory colitis of the cecum/proximal ascending colon versus underdisten tion. Correlate clinically. Diffuse hepatic steatosis. Normal appendix. Reviewed, dictated and finalized at location . T PAIN COORDINATOR Impression: Questionable infectious/inflammatory colitis of the cecum/proximal ascending co vernon versus underdistention. Correlate clinically. Diffuse hepatic steatosis. Normal appendix.
--- NOTE | 2024-10-02 03:16 | ECG_ITS ---
Test Date: 2024-10-02 03:57:08 Measurements Intervals [place] Rate: 114 P: 74 AK: 153 QRS: 2 QRSD: 82 T: 55 QT: 328 QTc: 453 Interpretive Statements SINUS TACHYCARDIA ABNORMAL ECG Compared to ECG 08/03/2024 19:26:56 HEART RATE HAS INCREASED Electronically Signed On 10-02-2024 06:37:36 CAR CONDITIONER by Francois Hammonds D.O.
[2024-10-02] MEDS: HALOPERIDOL LACTATE 5 MG/ML VIAL IM (03:18)
[2024-10-02] MEDS: SODIUM CHLORIDE 0.9% IV 2,000 ML 999 ML IV CONT (03:19)
[2024-10-02] MEDS: ONDANSETRON INJ 4 MG/2 ML VIAL IV PUSH ×5 (03:24→23:49)
[2024-10-02] MEDS: FAMOTIDINE 20 MG/2 ML VIAL IV PUSH (03:24)
[2024-10-02 03:33] LABS: Glucose Point of Care 391 mg/dl (65-105)
--- OUTSIDE RECORDS SUMMARY | 2024-10-02 03:33 | XMS_ITS | Clinical Summary ---
Author Organization [facility] Address [address], [address] [address] Phone Care Team Providers Care Briquetting Machine Operator Name Role Phone Unavailable Primary Care Provider Unavailabl e Allergies No known active allergies Medications LANCETS ULTRA FINE Misc 200 lancets by Subcutaneous route 6 times daily. 200 Each 5 6 Active HYDROcodone-acet aminophen (NORCO) 5-325 MG Tablet Take 1 Tab by mouth every 4 hours as needed. 6 Active diclofenac (VOLTAREN) 75 MG Tablet Delayed ResponseIndicati ons:Back strain, initial encounter Take 1 Tab by mouth 2 times daily. 60 Tab 1 6 Active Additional Information Patient not taking.Reported on 07/01/2017 Blood Glucose Monitoring Suppl (ONE TOUCH ULTRA SYSTEM KIT) w/Device KitIndications:T ype 1 diabetes mellitus without complication (HCC) by Does not apply route. Active Glucose Blood (ONE TOUCH TEST STRIPS) StripIndications :Type 1 diabetes mellitus without complication (HCC) by In Vitro route. Use as directed Active HUMALOG 100 UNIT/ML Solution INJECT INSULIN PER PUMP SETTING, TOTAL DAILY DOSE UP TO 50 UNITS 50 mL 1 7 Active Active Problems No known active problems Immunizations Immunization Administration Dates Next Due PUR FLU 3+ YRS PRES FREE QUAD IM 05/11/2016 Family History Medical History Relation Name Comments Diabetes Father Bipolar Disorder Mother Relation Name Status Comments Father Alive Mother Alive Social History Tobacco Use Types Packs/Day Years Used Date Smoking Tobacco: Every Day Cigarettes Smokeless Tobacco: Never Tobacco Cessation:Ready to Q uit: No; Counseling Given: Yes Alcohol Use Standard Drinks/Week Comments Yes 0 (1 standard drink = 0.6 oz pur e alcohol) Comments No Sex and Gender Information Value Date Recorded Sex Assigned at Not on file Legal Sex Female 1:55 PM CDT Gender Identity Not on file Sexual Orientation Not on file Last Filed Vital Signs Vital Sign Reading Time Taken Comments Blood Pressure 118/74 07/01/2017 1:18 PM DAIRY MANAGEMENT SPECIALIST Pulse 77 07/01/2017 1:18 PM DAIRY MANAGEMENT SPECIALIST Temperature 36.2 C (97.2 F) 07/11/2016 9:24 AM DAIRY MANAGEMENT SPECIALIST Respiratory Rate 18 07/01/2017 1:18 PM DAIRY MANAGEMENT SPECIALIST Oxygen Saturation 97% 07/01/2017 1:18 PM DAIRY MANAGEMENT SPECIALIST Inhaled Oxygen Concentration - - Weight 70.3 kg (155 lb) 07/01/2017 1:18 PM DAIRY MANAGEMENT SPECIALIST Height 162.6 cm (5' 4 ) 07/01/2017 1:18 PM DAIRY MANAGEMENT SPECIALIST Body Mass Index 26.61 07/01/2017 1:18 PM DAIRY MANAGEMENT SPECIALIST Plan of Treatment Health Maintenance Due Date Last Done Comments Hepatitis C Virus (HCV) Screening 1987 Pap Smear 2008 Cervical Cancer Screening (CCS) 2017 HPV/Cotest 2017 Influenza Immunization (#1) 2024 06/24/2018, 0 05/11/2016 SARS-COV-2 Immunization ( season) 2024 Respiratory Syncytial Virus (RSV) Immunization (Adult) (1 - 1-dose 75+ series) 2062 Hepatitis B Immunization Completed 998, 01/22/1998, 12/22/1997 DTaP/Tdap/Td Immunization Discontinued 2005, 03/07/1993, 07/27/1990, Additional history exists TdaP Immunization Completed 10/12/2005 Meningococcal Immunization (ACWY) Aged Out No longer eligible based on patient's age to complete this topic Pneumococcal Immunization Combined Aged Out No longer eligible based on patient's age to complete this topic Rotavirus Immunization Aged Out No lo nger eligible based on patient's age to complete this topic Insurance MEDICAID [place]
--- OUTSIDE RECORDS SUMMARY | 2024-10-02 03:33 | XMS_ITS | Continuity of Care Document ---
Author Organization [facility] Address [address] [place] [address] [place] [address] Phone Care Team Providers Care Shingles Roofer Helper Name Role Phone Kris Faith MD Unavailable Unavailable Procedures Procedure Date Eye Exam & Treatment Advance Directives Directive Yes / No Effective Date File Name No Information Encounters Encounter Description Practice Location Reason(s) For Visit Diagnoses Date Provider Providers Copied on Encounter [facility], [address], [place], [place], [id number], [place] tel:[phone] [address] Zeus Waters No Information [address] [facility] [address], [place], [place], [id number], [place]. tel:[phone] Family History Family Member Type Diagnosis Age At Onset No Information Payers Payer name Insurance type Covered constitution party ID Authoriza ticullen(s) [facility] CI [id number] Social History Type Description Quantity Date Captured [...]
--- OUTSIDE RECORDS SUMMARY | 2024-10-02 03:33 | XMS_ITS | Encounter Summary ---
Author Organization [facility] Address [facility] [facility] [place] [address] Care Team Providers Care Signal Tower Director Name Role Phone Clinic, [facility] Primary Care Provider [phone] Sidney Vicente MD Primary Care Provider + [facility], [facility] Primary Care Provider [phone] Sidney Vicente MD Primary Care Provider + [facility], [facility] Primary Care Provider [phone] Sidney Vicente MD Primary Care Provider + Sharri Alonso MD Primary Care Provider Clinic, [facility] Primary Care Provider [phone] [facility], [facility] Primary Care Provider [phone] Encounter Details Date Type Department Care Team (Late st Contact Info) Description 05/03/2010 Telephone [facility] [address] [place] [address] Liz Ramey MD [address] [address] Social History Tobacco Use Types Packs/Day Years Used Date Smoking Tobacco: Every Day Cigarettes 0.5 10 Comments:interested in quitt ing Alcohol Use Standard Drinks/Week Comments No 0 (1 standard drink = 0.6 oz pur e alcohol) Comments Yes Sex and Gender Information Value Date Recorded Sex Assigned at Not on file Gender Identity Not on file Sexual Orientation Not on file documented as of this encounter Plan of Treatment Not on file documented as of this encounter Visit Diagnoses Not on filedocumented in this encounter Care Teams Signal Tower Director Relationship Specialty Start Date End Date [facility], [facility] [address] [place] [address] PCP - General 04/17/10 05/13/10 Sidney Vicente MD [address] [place], [place] [address] PCP - General 05/14/10 05/15/10 [facility] [address] [place] [address] PCP - General 05/16/10 05/16/10 Sidney Vicente MD [address] [place], [place] [id number] PCP - General 05/17/10 05/17/10 [facility], [facility] [address] [place] [address] PCP - General 05/18/10 06/13/10 Sidney Vicente MD [address] [place] [address] PCP - General 06/14/10 09/21/10 Sharri Alonso MD [address] [phone] PCP - General 09/22/10 11/09/10 [facility], [facility] [address] [place] [address] PCP - General 11/10/10 11/13/10 [facility], [facility] [address] [place] [address] PCP - General 11/14/10 11/15/10 documented as of this encounter
--- OUTSIDE RECORDS SUMMARY | 2024-10-02 03:33 | XMS_ITS | Referral Summary ---
Author Organization [facility] Address [address] [place] [address] [place] [address] Care Team Providers Care Scrip Clerk Name Role Phone Unavailable Primary Care Provider Unavailabl e Source Comments [facility],non-owned Affiliates and Associated Physician Practices is amultiple site organization consisting of ambulatory clinics and hospital sitesin [place], [place], [place] and [place]. This disclosure is being madepursuant to the Care Everywhere program and may not contain all information available regarding this patient. Last updated 18.[employer] Allergies No known active allergies Medications * Be aware that medications may not be up to date on this document. Alwaysverify current medications with the patient. Medication Sig Dispensed Refills Start Date End Date Status glucose blood (ONETOUCH ULTRA TEST STRIPS) strip Use 1 Strip 8 times daily. For glucose monitoring. 250 6 09/29/2009 Active OneTouch FinePoint Lancets MISC Use 8 Sticks daily. For glucose monitoring. 100 11 09/29/2009 Active glucagon (GLUCAGON EMERGENCY) injection Inject 1 mg subcutaneously as needed 1 2 09/29/2009 Active acetone(urine) (KETOSTIX) strip Use daily. For testing. 30 6 09/29/2009 Active buPROPion SR 12hr (WELLBUTRIN-SR) 100 MG tablet Take 1 Tab by mouth daily. 30 5 02/24/2010 Active acetaminophen (TYLENOL) 500 MG tablet Take 500 mg by mouth every 4 hours as needed. Maximum allowable Acetaminophen amount = 4 Grams / 24 hours. Active zolpidem (AMBIEN) 5 MG tablet Take 1 Tab by mouth nightly as needed for Insomnia (May take 1 more tab ). 20 Tab 0 04/27/2010 Active oxycodone-acetamin ophen (PERCOCET) 5-325 MG tablet Take 1-2 Tabs by mouth every 4 hours as needed for Pain. 40 Tab 0 05/16/2010 Active ibuprofen (MOTRIN) 600 MG tablet Take 1 Tab by mouth every 6 hours as needed for Pain. 60 Tab 2 05/16/2010 Active docusate sodium (COLACE) 100 MG capsule Take 1 Cap by mouth 2 times daily as needed for Constipation. 60 Cap 2 05/16/2010 Active w/o Vit A; w/ Fe Fum-FA (-U) 106-1 MG capsule Take 1 Cap by mouth daily. 90 Cap 2 05/16/2010 Active imiquimod (ALDARA) 5 % cream Apply to affected area Two times a week. 24 Each 1 07/10/2010 Active escitalopram (LEXAPRO) 20 MG tablet Take 1 Tab by mouth daily. 30 Tab 1 09/22/2010 Active Active Problems Problem Noted Date Diagnosed Date Supervision of high-risk of christopher angie igravida 01/28/2018 GBS + 04/19/2010 Depression 01/12/2010 Overview (05/08/2010): Currently on Wellbutrin SR 150mg BID Non compliance with medical treatment 01/12/2010 Overview (03/27/2010): 01/12/2010: Patient did not bring blood sugar recordings 03/27/10: brought glucose recordings Genital warts 10/06/2009 Overview (02/23/2010): 10/06/09 [address] visible warts per Dr. Rodarte. Tobacco abuse 10/06/2009 Overview (12/15/2009): 11/10- 3-7 cig/day Quit November 2009 Previous delivery, antepartum condition or complication 10/06/2009 Overview (10/06/2009): 2 prior at [facility], pt wants repeat. Both LTCS. Need for fjitgez-dsyem-rjiuvsv (MMR) vaccine 06/2010 Overview (01/17/2015): MMR after delivery Diabetes mellitus type 1 Overview (04/24/2010): dx at 7 yo, on insulin pump. Hbg A1C 10.9 (10/06), 8.1 (12/15), 9.1 (02/20) 03/27/2010 Regimen: 0000-0.9, 0300-1.4, 0700-0.9, 1200-1.4 and 2200-1.4 Meals: B: 1:5 L: 1:8 D: 1:8 Snack: 1:9 Sensitivities: 1:25 04/24/10: Postpatrum Settings (reviewed with Dr. Vicente): I:C 1:15 for all meals, Sensitivity 1q75>100; [place] 0.7 / 3AM 0.8 / 7A 0.6 / 12P 1.0 / 10P 1.1. Check AC and 1h PP, HS and 3am glucose. Resolved Problems Problem Noted Date Diagnosed Date Resolved Date Polyhydramnios 02/23/2010 01/28/2018 Overview (03/27/2010): ANT 31.8 (02/21); repeat growth/BPP/AFIs are scheduled Supervision of high-risk pre gnancy of young multigravida 10/06/2009 01/28/2018 Overview (07/03/2015): B+/Eq/-/-, HIV neg- needs MMR after deliver L=13wk GBS positive Wants BTL - sign papers @ 28wk Echo: 03/27: wnl Last Pap: 10/06/09, negative +/E/-/-; HIV neg 10/06/2009 11/10/2009 Immunizations Name Administration Dates Next Due Human Papilloma Virus Vaccine 11/10/2010, 010 MMR 05/16/2010 Social History Tobacco Use Types Packs/Day Years Used Date Smoking Tobacco: Every Day Cigarettes 0.5 10 Comments:interested in quitt ing Alcohol Use Standard Drinks/Week Comments No 0 (1 standard drink = 0.6 oz pur e alcohol) Sex and Gender Information Value Date Recorded Sex Assigned at Not on file Gender Identity Not on file Sexual Orientation Not on file Last Filed Vital Signs Vital Sign Reading Time Taken Comments Blood Pressure 103/67 11/10/2010 2:25 PM CDT Pulse 81 11/10/2010 2:25 PM CDT Temperature 36.6 C (97.8 F) 05/16/2010 7:55 AM CDT Respiratory Rate 20 11/10/2010 2:25 PM CDT Oxygen Saturation 99% 05/16/2010 7:55 AM CDT Inhaled Oxygen Concentration - - Weight 79.4 kg (175 lb) 11/10/2010 2:25 PM CDT Height 162.6 cm (5' 4 ) 11/10/2010 2:25 PM CDT Body Mass Index 30.04 11/10/2010 2:25 PM CDT Plan of Treatment Not on file Procedures Procedure Name Priority Date/Time Associated Diagnosis Comments HEPATITIS C ANTIBODY Today 11/10/2010 4:35 PM CDT HIV-1 HIV-2 ANTIBODY Today 11/10/2010 4:35 PM CDT CYTOLOGY CERVICAL/VAG PAP SCREEN THIN PREP Today 11/10/2010 4:30 PM CDT from Last 3 Months or Most Recently Relevant to Health Maintenance Results * HIV-1 HIV-2 ANTIBODY (11/10/2010 4:35 PM CDT) HIV-1/HIV-2 Nonreactive Nonreactive [facility] BLOOD SPECIMEN / Unknown 11/10/2010 4:35 PM CDT 11/10/2010 4:45 PM CDT Ladonna Vasques MD LAB - CHEMIS TRY ORDERABLES Performing Organization Address [facility] de Phone Number [facility] [address] [place] [phone] * HEPATITIS C ANTIBODY (11/10/2010 4:35 PM CDT) Hepatitis C Antibody Screen Nonreactive Nonreactive [facility] BLOOD SPECIMEN / Unknown 11/10/2010 4:35 PM CDT 11/10/2010 4:45 PM CDT Ladonna Vasques MD LAB - CHEMIS TRY ORDERABLES Performing Organization Address [facility] Co de Phone Number [facility] [address] [place] [address] * CYTOLOGY CERVICAL/VAG SCREEN THIN PREP (11/10/2010 4:30 PM CDT) Comment Thin Prep [facility] Pap Smear Report See Scanned Report [facility] ENTIRE ENDOCERVIX / Unknown 11/10/2010 4:30 PM CDT 11/10/2010 4:45 PM CDT Narrative Resulting Agency Comment Performed By [facility] [address] [place], [place] [address] Ladonna Vasques MD LAB - PATHOL OGY/CYTOLOGY ORDERABLES [facility] [address] [place] [address] from Last 3 Months or Most Recently Relevant to Health Maintenance Advance Directives * Full Code (Latest Code Status on File) Date Activated Date Inactivated Comments 05/12/2010 8:28 AM 05/17/2010 1:34 AM * Full Code Date Activated Date Inactivated Comments 04/27/2010 1:44 AM 04/28/2010 6:32 AM * Full Code Date Activated Date Inactivated Comments 02/20/2010 8:35 PM 02/25/2010 5:19 AM
--- OUTSIDE RECORDS SUMMARY | 2024-10-02 03:33 | XMS_ITS | Data Portability ---
Author Organization [facility], Main Office Address [address] [place] [address] Assessment No assessment recorded. Plan of Treatment Reminders Order Date Submit Date Provider Last Modified By Organization Details Last Modified Time Details Appointments None recorded. Lab None recorded. Referral endocrinolo gy referral 2022 023 shalonda De Leon MD, [address],, [facility], [place], [address], 3 15:20:08 nephrologis t referral 2022 023 [place], [address], [address], [place], [address], 3 12:35:35 Procedures None recorded. Surgeries None recorded. Imaging None recorded. Medication Orders Humalog U-100 Insulin 100 unit/mL subcutaneou s solution 2022 023 [facility] #[id number], [address], [place], [place], [id number], 3 14:41:39 Gvoke HypoPen 2-Pack 1 mg/0.2 mL subcutaneou s auto-inject or 2022 023 [facility] #[id number], [address], [place], [place], [id number], 3 14:42:39 gabapentin 300 mg capsule 2022 023 [facility] #[id number], [address], [place], [place], [id number], 3 14:44:52 famotidine 20 mg tablet 2022 023 [facility] #[id number], [address], [place], [place], [id number], 3 14:48:37 ondansetron 4 mg disintegrat ing tablet 2022 023 [facility] #[id number], [address], [place], [place], [id number], 3 14:49:22 Patient TargetsNo targets recorded. Patient InstructionsNo instructions recorded. Reason for Referral Kindergartner Referral for Pr oteinuria Referring Physician: Randee Kilpatrick, Endocrinology, Encounter Date: 03/26/2023 Endocrinology Referral for U ncontrolled type 1 diabetes mellitus type I DM uncontrolled Referring Physician: Randee Kilpatrick Endocrinology, Encounter Date: 03/26/2023 Results Created Date Observation Date Name Description Value Unit Range Abnormal Flag Note LastModifiedBy Organization Detail LastModifiedTime 05/11/20 21 05/11/2021 HEMOG LOBIN A1C HA1C 8.4 % 4.0-6. 0 high Diabe dimple Scree brody Crite gin: <5.7% Consi stent with absen ce of diabe dimple 5.7-6 .4% Consi stent with incre ased risk for diabe dimple (pred iabet es) >OR=6 .5% Consi stent with diabe dimple REFER ENCE: Diabe dimple Care 2016, 39(Tamayo ppl.1 ):s13 -s22 Not Available [facility] (Lab) [address], [place], [address], 05/11/2021 13:13:17 05/11/20 21 05/11/2021 COMPR EHENS CHIOMA METAB OLIC PANEL potassium 4.7 mmol/ L 3.5-5. 1 Not Available [facility] (Lab) [address] [place], [address], 05/11/2021 12:31:29 05/11/20 21 05/11/2021 COMPR EHENS CHIOMA METAB OLIC PANEL chloride 103 mmol/ L 98-107 Not Available [facility] (Lab) [address] [place], [address], 05/11/2021 12:31:29 05/11/20 21 05/11/2021 COMPR EHENS CHIOMA METAB OLIC PANEL carbon dioxide 25 mmol/ L 22-30 Not Available [facility] (Lab) [address] [place], [address], 05/11/2021 12:31:29 05/11/20 21 05/11/2021 COMPR EHENS CHIOMA METAB OLIC PANEL agap 11.7 mmol/ L 14-22 low Not Available [facility] (Lab) [address] [place], [address], 05/11/2021 12:31:29 05/11/20 21 05/11/2021 COMPR EHENS CHIOMA METAB OLIC PANEL glucose 327 mg/dL 70-99 high Not Available [facility] (Lab) [address] [place], [address], 05/11/2021 12:31:29 05/11/20 21 05/11/2021 COMPR EHENS CHIOMA METAB OLIC PANEL BUN 13 mg/dL 8-19 Not Available [facility] (Lab) [address] [place], [address], 05/11/2021 12:31:29 05/11/20 21 05/11/2021 COMPR EHENS CHIOMA METAB OLIC PANEL creatinine 0.75 mg/dL 0.66-1 .25 Not Available [facility] (Lab) [address] [place], [address], 05/11/2021 12:31:29 05/11/20 21 05/11/2021 COMPR EHENS CHIOMA METAB OLIC PANEL GFR >60 Refer ence Range : [place] ge GFR Healt hy Adult : >60 mL/mi n/1.7 3 m2 Chron ic Kidne y Disea se: 15-60 mL/mi n/1.7 3 m2 Kidne y Failu re: <15/m L/min /1.73 m2 www.n iddk. nih.g ov MDRD study equat ion hasn' t been valid ated in child dharmesh <18 yrs of age, pregn ant women , the elder ly >85 yrs of age, or in some racia l or ethni c subgr oups, suc as Hispa nics. Outsi de the valid ated jorge eters , estim ated GFR is less accur ate requi ring clini francisco judgm ent on a case by case basis . Clini francisco inter preta tion for other races and ages must be made by the clini dorian . Futhe rmore , any of th e limit ation s with the use of serum creat inine relat ed to nutri dave l statu s o r medic ation usage hasn' t accou nted for the MDRD Study equat ion. For perso ns < 18 yrs of age, a pedia tric GFR calcu lator can be locat ed on the [facility] websi te: https ://jayne benitez.o rg/pr ofess ional s/kdo qi/gf r_cal culat or Not Available [facility] (Lab) [address] [place], [address], 05/11/2021 12:31:29 05/11/20 21 05/11/2021 COMPR EHENS CHIOMA METAB OLIC PANEL bilirubin, total 0.80 mg/dL 0.20-1 .30 Not Available [facility] (Lab) [address] [place], [address], 05/11/2021 12:31:29 05/11/20 21 05/11/2021 COMPR EHENS CHIOMA METAB OLIC PANEL sodium 135 mmol/ L 137-14 5 low Not Available [facility] (Lab) [address] [place], [address], 05/11/2021 12:31:29 05/11/20 21 05/11/2021 COMPR EHENS CHIOMA METAB OLIC PANEL alkaline phosphatase 71 U/L 38-126 Not Available [facility] (Lab) [address] [facility] [place], [address], 05/11/2021 12:31:29 05/11/20 21 05/11/2021 COMPR EHENS CHIOMA METAB OLIC PANEL alanine aminotransfe rase 35 U/L 0-35 Not Available [facility] (Lab) [address] [place], [address], 05/11/2021 12:31:29 05/11/20 21 05/11/2021 COMPR EHENS CHIOMA METAB OLIC PANEL aspartate aminotransfe rase 48 U/L 15-37 high Not Available [facility] (Lab) [address] [place], [address], 05/11/2021 12:31:29 05/11/20 21 05/11/2021 COMPR EHENS CHIOMA METAB OLIC PANEL calcium 9.7 mg/dL 8.4-10 .2 Not Available [facility] (Lab) [address] [place], [address], 05/11/2021 12:31:29 05/11/20 21 05/11/2021 COMPR EHENS CHIOMA METAB OLIC PANEL total protein 7.5 g/dL 6.3-8. 2 Not Available [facility] (Lab) [address] [place], [address], 05/11/2021 12:31:29 05/11/20 21 05/11/2021 COMPR EHENS CHIOMA METAB OLIC PANEL albumin 4.4 g/dL 3.4-5. 0 Not Available [facility] (Lab) [address] [place], [address], 05/11/2021 12:31:29 05/11/20 21 05/11/2021 COMPR EHENS CHIOMA METAB OLIC PANEL globulin 3.1 g/dL 2.6-4. 2 Not Available [facility] (Lab) [address] [place], [address], 05/11/2021 12:31:29 05/11/20 21 05/11/2021 COMPR EHENS CHIOMA METAB OLIC PANEL A/G ratio 1.4 ratio 1.0-2. 0 Not Available [facility] (Lab) [address] [facility] [place], [address], 05/11/2021 12:31:29 05/11/20 21 05/11/2021 MICRO ALBUM N RNDM W/CRE AT RATIO ur creat 64.98 mg/dL REFER ENCE RANGE NOT ESTAB LISHE D FOR RANDO M URINE CREAT ININE Not Available [facility] (Lab) [address] [place], [address], 05/11/2021 12:25:26 05/11/20 21 05/11/2021 MICRO ALBUM N RNDM W/CRE AT RATIO microalb <6.0 mg/L 0.0-16 .6 Not Available [facility] (Lab) [address] [place], [address], 05/11/2021 12:25:26 06/28/20 21 06/29/2021 MICRO ALBUM N RNDM W/CRE AT RATIO ur creat 156.68 mg/dL REFER ENCE RANGE NOT ESTAB LISHE D FOR RANDO M URINE CREAT ININE Not Available [facility] (Lab) [address] [place], [address], 06/29/2021 15:37:30 06/28/20 21 06/29/2021 MICRO ALBUM N RNDM W/CRE AT RATIO microalb 279.2 mg/L 0.0-16 .6 high Not Available [facility] (Lab) [address] [place], [address], 06/29/2021 15:37:30 06/28/20 21 06/29/2021 MICRO ALBUM N RNDM W/CRE AT RATIO ratio 178 mcg/m g 0-29 high THE AMERI CAN DIABE DIMPLE ASSOC IATIO N DEFIN ES ABNOR MALIT IES IN ALBUM IN EXCRE TION FOLLO WS: CATEG ORY RESUL T (MCG/ MG CREAT ININE ) KATHRYN L <30 MICRO ALBUM INURI A 30-29 9 CLINI FRANCISCO ALBUM INURI A > OR = 300 THE ADA RECOM MENDS THAT 2 OF 2 SPECI MENS COLLE CTED WITHI N A 3- TO 6-MON TH PERIO D BE ABNOR MAL BEFOR E CONSI KELLY G A PATIE NT TO HAVE CROSS ED ONE OF THESE DIAGN OSTIC THRES HOLDS . REFER ENCE: DIABE DIMPLE CARE, VOL. 26: S94-S , 2002 Not Available [facility] (Lab) [address] [place], [address], 06/29/2021 15:37:30 06/28/20 21 06/28/2021 HEMOG LOBIN A1C HA1C 8.5 % 4.0-6. 0 high Diabe dimple Scree brody Crite gin: <5.7% Consi stent with absen ce of diabe dimple 5.7-6 .4% Consi stent with incre ased risk for diabe dimple (pred iabet es) >OR=6 .5% Consi stent with diabe dimple REFER ENCE: Diabe dimple Care 2016, 39(Tamayo ppl.1 ):s13 -s22 Not Available [facility] (Lab) [address] [place], [address], 06/28/2021 21:31:55 06/28/20 21 06/28/2021 TSH thyroid-stim ulating hormone 1.970 uIU/m L 0.465- 4.680 Not Available [facility] (Lab) [address] [place], [address], 06/28/2021 17:02:41 06/28/20 21 06/28/2021 T4 FREE free T4 1.18 NG/dL 0.78-2 .19 Not Available [facility] (Lab) [address] [place], [address], 06/28/2021 16:51:26 06/28/20 21 06/28/2021 LIPID PANEL LDL cholesterol, calculated 27 mg/dL 0-130 NIH NEAL NSUS REPOR T RECOM MENDA TIONS FOR LDL: ADULT CHILD LOW RISK <130 <110 (OPTI MAL LDL) <100 ----- BORDE RLINE : 130-1 59 ----- HIGH RISK: >160 >130 A TRIGL YCERI DE RESUL T >400 INVAL IDATE S THE CALCU LATIO N FOR LDL FRACT IONAT ION - THE LDL RESUL T WILL NOT BE REPOR MORGAN. Not Available [facility] (Lab) [address] [place], [address], 06/28/2021 16:40:22 06/28/20 21 06/28/2021 LIPID PANEL cholesterol 181 mg/dL 140-19 9 NIH NEAL NSUS RECOM MENDA TION FOR JAZMINE STERO L: ADULT CHILD LOW RISK: <200 <170 BORDE RLINE : <200- 239 ----- HIGH RISK: >240 >200 Not Available [facility] (Lab) [address] [place], [address], 06/28/2021 16:40:22 06/28/20 21 06/28/2021 LIPID PANEL triglyceride s 74 mg/dL 0-150 NIH NEAL NSUS REPOR T RECOM MENDA TION FOR TRIGL YCERI THOMAS: ADULT CHILD LOW RISK: <150 ----- BODER LINE: 150-1 99 ----- HIGH RISK: >200 ----- Not Available [facility] (Lab) [address] [place], [address], 06/28/2021 16:40:22 06/28/20 21 06/28/2021 LIPID PANEL HDL cholesterol 139 mg/dL 40- Not Available [facility] (Lab) [address] [place], [address], 06/28/2021 16:40:22 06/28/20 21 06/28/2021 COMPR EHENS CHIOMA METAB OLIC PANEL sodium 136 mmol/ L 137-14 5 low Not Available [facility] (Lab) [address] [place], [address], 06/28/2021 16:29:51 06/28/20 21 06/28/2021 COMPR EHENS CHIOMA METAB OLIC PANEL potassium 4.6 mmol/ L 3.5-5. 1 Not Available [facility] (Lab) [address] [place], [address], 06/28/2021 16:29:51 06/28/20 21 06/28/2021 COMPR EHENS CHIOMA METAB OLIC PANEL chloride 98 mmol/ L 98-107 Not Available [facility] (Lab) [address] [place], [address], 06/28/2021 16:29:51 06/28/20 21 06/28/2021 COMPR EHENS CHIOMA METAB OLIC PANEL carbon dioxide 29 mmol/ L 22-30 Not Available [facility] (Lab) [address] [place], [address], 06/28/2021 16:29:51 06/28/20 21 06/28/2021 COMPR EHENS CHIOMA METAB OLIC PANEL agap 13.6 mmol/ L 14-22 low Not Available [facility] (Lab) [address] [place], [address], 06/28/2021 16:29:51 06/28/20 21 06/28/2021 COMPR EHENS CHIOMA METAB OLIC PANEL glucose 194 mg/dL 70-99 high Not Available [facility] (Lab) [address] [place], [address], 06/28/2021 16:29:51 06/28/20 21 06/28/2021 COMPR EHENS CHIOMA METAB OLIC PANEL BUN 7 mg/dL 8-19 low Not Available [facility] (Lab) [address] [place], [address], 06/28/2021 16:29:51 06/28/20 21 06/28/2021 COMPR EHENS CHIOMA METAB OLIC PANEL creatinine 0.67 mg/dL 0.66-1 .25 Not Available [facility] (Lab) [address] [facility], [place], [address], 06/28/2021 16:29:51 06/28/20 21 06/28/2021 COMPR EHENS CHIOMA METAB OLIC PANEL GFR >60 Refer ence Range : [place] ge GFR Healt hy Adult : >60 mL/mi n/1.7 3 m2 Chron ic Kidne y Disea se: 15-60 mL/mi n/1.7 3 m2 Kidne y Failu re: <15/m L/min /1.73 m2 www.n iddk. nih.g ov MDRD study equat ion hasn' t been valid ated in child dharmesh <18 yrs of age, pregn ant women , the elder ly >85 yrs of age, or in some racia l or ethni c subgr oups, such as [facility] nics. Outsi de the valid ated jorge eters , estim ated GFR is less accur ate requi ring clini francisco judgm ent on a case by case basis . Clini francisco inter preta tion for other races and ages must be made by the clini dorian . Futhe rmore , any of the limit ation s with the use of serum creat inine relat ed to nutri dave l statu s or medic ation usage hasn' t accou nted for the MDRD Study equat ion. For perso ns <18 yrs of age, a pedia tric GFR calcu lator can be locat ed on the F websi te: https :[email or web address] benitez.o rg/pr ofess ional s/kdo qi/gf r_cal culat or Not Available [facility] (Lab) [address] [place], [address], 06/28/2021 16:29:51 06/28/20 21 06/28/2021 COMPR EHENS CHIOMA METAB OLIC PANEL alkaline phosphatase 80 U/L 38-126 Not Available [facility] (Lab) [address] [place], [address], 06/28/2021 16:29:51 06/28/20 21 06/28/2021 COMPR EHENS CHIOMA METAB OLIC PANEL alanine aminotransfe rase 35 U/L 0-35 Not Available [facility] (Lab) [address] [place], [address], 06/28/2021 16:29:51 06/28/20 21 06/28/2021 COMPR EHENS CHIOMA METAB OLIC PANEL aspartate aminotransfe rase 81 U/L 15-37 high Not Available [facility] (Lab) [address] [place], [address], 06/28/2021 16:29:51 06/28/20 21 06/28/2021 COMPR EHENS CHIOMA METAB OLIC PANEL bilirubin, total 1.50 mg/dL 0.20-1 .30 high Not Available [facility] (Lab) [address] [place], [address], 06/28/2021 16:29:51 06/28/20 21 06/28/2021 COMPR EHENS CHIOMA METAB OLIC PANEL calcium 9.6 mg/dL 8.4-10 .2 Not Available [facility] (Lab) [address] [place], [address], 06/28/2021 16:29:51 06/28/20 21 06/28/2021 COMPR EHENS CHIOMA METAB OLIC PANEL total protein 7.9 g/dL 6.3-8. 2 Not Available [facility] (Lab) [address] [place], [address], 06/28/2021 16:29:51 06/28/20 21 06/28/2021 COMPR EHENS CHIOMA METAB OLIC PANEL albumin 4.4 g/dL 3.4-5. 0 Not Available [facility] (Lab) [address] [place], [address], 06/28/2021 16:29:51 06/28/20 21 06/28/2021 COMPR EHENS CHIOMA METAB OLIC PANEL globulin 3.5 g/dL 2.6-4. 2 Not Available [facility] (Lab) [address] [place], [address], 06/28/2021 16:29:51 06/28/20 21 06/28/2021 COMPR EHENS CHIOMA METAB OLIC PANEL A/G ratio 1.3 ratio 1.0-2. 0 Not Available [facility] (Lab) [address] [place], [address], 06/28/2021 16:29:51 10/26/19 22 10/25/2021 HEMOG LOBIN A1C HA1C 8.0 % 4.0-6. 0 high Diabe dimple Scree brody Crite gin: <5.7% Consi stent with absen ce of diabe dimple 5.7-6 .4% Consi stent with incre ased risk for diabe dimple (pred iabet es) >OR=6 .5% Consi stent with diabe dimple REFER ENCE: Diabe dimple Care 2016, 39(Tamayo ppl.1 ):s13 -s22 Not Available [facility] (Lab) [address] [place], [address], 10/25/2021 19:02:25 10/26/19 22 10/25/2021 MICRO ALBUM N RNDM W/CRE AT RATIO ur creat 163.70 mg/dL REFER ENCE RANGE NOT ESTAB LISHE D FOR RANDO M URINE CREAT ININE Not Available [facility] (Lab) [address] [place], [address], 10/25/2021 18:50:35 10/26/19 22 10/25/2021 MICRO ALBUM N RNDM W/CRE AT RATIO microalb 32.2 mg/L 0.0-16 .6 high Not Available [facility] (Lab) [address] [place], [address], 10/25/2021 18:50:35 10/26/19 22 10/25/2021 MICRO ALBUM N RNDM W/CRE AT RATIO ratio 20 mcg/m g 0-29 THE AMERI CAN DIABE DIMPLE ASSOC IATIO N DEFIN ES ABNOR MALIT IES IN ALBUM IN EXCRE TION FOLLO WS: CATEG ORY RESUL T (MCG/ MG CREAT ININE ) KATHRYN L <30 MICRO ALBUM INURI A 30-29 9 CLINI FRANCISCO ALBUM INURI A > OR = 300 THE ADA RECOM MENDS THAT 2 OF 2 SPECI MENS COLLE CTED WITHI N A 3- TO 6-MON TH PERIO D BE ABNOR MAL BEFOR E CONSI KELLY G A PATIE NT TO HAVE CROSS ED ONE OF THESE DIAGN OSTIC THRES HOLDS . REFER ENCE: DIABE DIMPLE CARE, VOL. 26: S94-S 96, 2002 Not Available [facility] (Lab) [address] [place], [address], 10/25/2021 18:50:35 10/26/19 22 10/25/2021 COMPR EHENS CHIOMA METAB OLIC PANEL carbon dioxide 27 mmol/ L 22-30 Not Available [facility] (Lab) [address] [place], [address], 10/25/2021 18:25:29 10/26/19 22 10/25/2021 COMPR EHENS CHIOMA METAB OLIC PANEL sodium 130 mmol/ L 137-14 5 low Not Available [facility] (Lab) [address] [place], [address], 10/25/2021 18:25:29 10/26/19 22 10/25/2021 COMPR EHENS CHIOMA METAB OLIC PANEL potassium 4.6 mmol/ L 3.5-5. 1 Not Available [facility] (Lab) [address] [place], [address], 10/25/2021 18:25:29 10/26/19 22 10/25/2021 COMPR EHENS CHIOMA METAB OLIC PANEL chloride 96 mmol/ L 98-107 low Not Available [facility] (Lab) [address] [place], [address], 10/25/2021 18:25:29 10/26/19 22 10/25/2021 COMPR EHENS CHIOMA METAB OLIC PANEL agap 11.6 mmol/ L 14-22 low Not Available [facility] (Lab) [address] [place], [address], 10/25/2021 18:25:29 10/26/19 22 10/25/2021 COMPR EHENS CHIOMA METAB OLIC PANEL glucose 298 mg/dL 70-99 high Not Available [facility] (Lab) [address] [place], [address], 10/25/2021 18:25:29 10/26/19 22 10/25/2021 COMPR EHENS CHIOMA METAB OLIC PANEL BUN 18 mg/dL 8-19 Not Available [facility] (Lab) [address] [place], [address], 10/25/2021 18:25:29 10/26/19 22 10/25/2021 COMPR EHENS CHIOMA METAB OLIC PANEL creatinine 0.58 mg/dL 0.66-1 .25 low Not Available [facility] (Lab) [address] [place], [address], 10/25/2021 18:25:29 10/26/19 22 10/25/2021 COMPR EHENS CHIOMA METAB OLIC PANEL GFR >60 Refer ence Range : [place] ge GFR Healt hy Adult : >60 mL/mi n/1.7 3 m2 Chron ic Kidne y Disea se: 15-60 mL/mi n/1.7 3 m2 Kidne y Failu re: <15/m L/min /1.73 m2 www.n iddk. nih.g ov The MDRD study equat ion has not been valid ated in child dharmesh <18 years of age; pregn ant women ; the elder ly >85 years of age; or in some racia l or ethni c subgr oups, such as Hispa nics. Outsi de the valid ated jorge eters , estim ated GFR is less accur ate, requi ring clini francisco judgm ent on a case- by-ca se basis . Clini francisco inter preta tion for other races and ages must be made by the clini dorian. The MDRD study equat ion has not been valid ated for the evalu ation of serum creat inine relat ed to nutri dave l statu s or medic ation usage . For perso ns <18 years of age, a pedia tric GFR calcu lator is avail able on the [facility] websi te: https ://jayne cardona.sree benitez.o christa/pr francisca peguero s/justao qi/gf r_cal culat or Not Available [facility] (Lab) [address] [place], [address], 10/25/2021 18:25:29 10/26/19 22 10/25/2021 COMPR EHENS CHIOMA METAB OLIC PANEL alkaline phosphatase 78 U/L 38-126 Not Available [facility] (Lab) [address] [place], [address], 10/25/2021 18:25:29 10/26/19 22 10/25/2021 COMPR EHENS CHIOMA METAB OLIC PANEL alanine aminotransfe rase 15 U/L 0-35 Not Available [facility] (Lab) [address] [place], [address], 10/25/2021 18:25:29 10/26/19 22 10/25/2021 COMPR EHENS CHIOMA METAB OLIC PANEL aspartate aminotransfe rase 23 U/L 15-37 Not Available [facility] (Lab) [address] [place], [address], 10/25/2021 18:25:29 10/26/19 22 10/25/2021 COMPR EHENS CHIOMA METAB OLIC PANEL bilirubin, total 1.10 mg/dL 0.20-1 .30 Not Available [facility] (Lab) [address] [place], [address], 10/25/2021 18:25:29 10/26/19 22 10/25/2021 COMPR EHENS CHIOMA METAB OLIC PANEL calcium 9.3 mg/dL 8.4-10 .2 Not Available [facility] (Lab) [address] [place], [address], 10/25/2021 18:25:29 10/26/19 22 10/25/2021 COMPR EHENS CHIOMA METAB OLIC PANEL total protein 7.2 g/dL 6.3-8. 2 Not Available [facility] (Lab) [address] [place], [address], 10/25/2021 18:25:29 10/26/19 22 10/25/2021 COMPR EHENS CHIOMA METAB OLIC PANEL albumin 4.1 g/dL 3.4-5. 0 Not Available [facility] (Lab) [address] [place], [address], 10/25/2021 18:25:29 10/26/19 22 10/25/2021 COMPR EHENS CHIOMA METAB OLIC PANEL globulin 3.1 g/dL 2.6-4. 2 Not Available [facility] (Lab) [address] [place], [address], 10/25/2021 18:25:29 10/26/19 22 10/25/2021 COMPR EHENS CHIOMA METAB OLIC PANEL A/G ratio 1.3 ratio 1.0-2. 0 Not Available [facility] (Lab) [address] [place], [address], 10/25/2021 18:25:29 01/12/20 23 01/11/2023 MICRO ALBUM N RNDM W/CRE AT RATIO ur creat 271.14 mg/dL REFER ENCE RANGE NOT ESTAB LISHE D FOR RANDO M URINE CREAT ININE Not Available [facility] (Lab) [address] [place], [address], 01/11/2023 16:33:17 01/12/20 23 01/11/2023 MICRO ALBUM N RNDM W/CRE AT RATIO microalbumin , urine >1140. 0 mg/L 0.0-16 .6 high Not Available [facility] (Lab) [address] [place], [address], 01/11/2023 16:33:17 01/12/20 23 01/11/2023 LIPID PANEL cholesterol 186 mg/dL 140-19 9 NIH NEAL NSUS RECOM MENDA TION FOR JAZMINE STERO L: ADULT CHILD LOW RISK: <200 <170 BORDE RLINE : <200- 239 ----- HIGH RISK: >240 >200 Not Available [facility] (Lab) [address] [place], [address], 01/11/2023 16:14:07 01/12/20 23 01/11/2023 LIPID PANEL triglyceride s 81 mg/dL 0-150 NIH NEAL NSUS REPOR T RECOM MENDA TION FOR TRIGL YCERI THOMAS: ADULT CHILD LOW RISK: <150 ----- BODER LINE: 150-1 99 ----- HIGH RISK: >200 ----- Not Available [facility] (Lab) [address] [place], [address], 01/11/2023 16:14:07 01/12/20 23 01/11/2023 LIPID PANEL HDL cholesterol 109 mg/dL 40- Not Available [facility] (Lab) [address] [facility] [place], [address], 01/11/2023 16:14:07 01/12/20 23 01/11/2023 LIPID PANEL LDL cholesterol, calculated 61 mg/dL 0-130 NIH NEAL NSUS REPOR T RECOM MENDA TIONS FOR LDL: ADULT CHILD LOW RISK <130 <110 (OPTI MAL LDL) <100 ----- BORDE RLINE : 130-1 59 ----- HIGH RISK: >160 >130 A TRIGL YCERI DE RESUL T >400 INVAL IDATE S THE CALCU LATIO N FOR LDL FRACT IONAT ION - THE LDL RESUL T WILL NOT BE REPOR MORGAN. Not Available [facility] (Lab) [address] [place], [address], 01/11/2023 16:14:07 01/12/20 23 01/11/2023 COMPR EHENS CHIOMA METAB OLIC PANEL sodium 136 mmol/ L 137-14 5 low Not Available [facility] (Lab) [address] [place], [address], 01/11/2023 16:14:14 01/12/20 23 01/11/2023 COMPR EHENS CHIOMA METAB OLIC PANEL potassium 4.3 mmol/ L 3.5-5. 1 Not Available [facility] (Lab) [address] [place], [address], 01/11/2023 16:14:14 01/12/20 23 01/11/2023 COMPR EHENS CHIOMA METAB OLIC PANEL chloride 102 mmol/ L 98-107 Not Available [facility] (Lab) [address] [place], [address], 01/11/2023 16:14:14 01/12/20 23 01/11/2023 COMPR EHENS CHIOMA METAB OLIC PANEL carbon dioxide 28 mmol/ L 22-30 Not Available [facility] (Lab) [address] [place], [address], 01/11/2023 16:14:14 01/12/20 23 01/11/2023 COMPR EHENS CHIOMA METAB OLIC PANEL anion gap 10.3 mmol/ L 14-22 low Not Available [facility] (Lab) [address] [place], [address], 01/11/2023 16:14:14 01/12/20 23 01/11/2023 COMPR EHENS CHIOMA METAB OLIC PANEL glucose 181 mg/dL 70-99 high Not Available [facility] (Lab) [address] [place], [address], 01/11/2023 16:14:14 01/12/20 23 01/11/2023 COMPR EHENS CHIOMA METAB OLIC PANEL BUN 11 mg/dL 8-19 Not Available [facility] (Lab) [address] [place], [address], 01/11/2023 16:14:14 01/12/20 23 01/11/2023 COMPR EHENS CHIOMA METAB OLIC PANEL creatinine 0.58 mg/dL 0.66-1 .25 low Not Available [facility] (Lab) [address] [place], [address], 01/11/2023 16:14:14 01/12/20 23 01/11/2023 COMPR EHENS CHIOMA METAB OLIC PANEL GFR >60 Refer ence Range : [place] ge GFR Healt hy Adult : >60 mL/mi n/1.7 3 m2 Chron ic Kidne y Disea se: 15-60 mL/mi n/1.7 3 m2 Kidne y Failu re: <15/m L/min /1.73 m2 [email or web address] ov The MDRD study equat ion has not been valid ated in child dharmesh <18 years of age; pregn ant women ; the elder ly >85 years of age; or in some racia l or ethni c subgr oups, such as Hispa nics. Outsi de the valid ated jorge eters , estim ated GFR is less accur ate, requi ring clini francisco judgm ent on a case- by-ca se basis . Clini francisco inter preta tion for other races and ages must be made by the clini dorian. The MDRD study equat ion has not been valid ated for the evalu ation of serum creat inine relat ed to nutri dave l statu s or medic ation usage . For perso ns <18 years of age, a pedia tric GFR calcu lator is avail able on the [facility] websi te: https ://ww w.kid eli.o rg/pr ofess ional s/kdo qi/gf r_cal culat or Not Available [facility] (Lab) [address] [place], [address], 01/11/2023 16:14:14 01/12/20 23 01/11/2023 COMPR EHENS CHIOMA METAB OLIC PANEL alkaline phosphatase 92 U/L 38-126 Not Available [facility] (Lab) [address] [place], [address], 01/11/2023 16:14:14 01/12/20 23 01/11/2023 COMPR EHENS CHIOMA METAB OLIC PANEL alanine aminotransfe rase 28 U/L 0-35 Not Available [facility] (Lab) [address] [place], [address], 01/11/2023 16:14:14 01/12/20 23 01/11/2023 COMPR EHENS CHIOMA METAB OLIC PANEL aspartate aminotransfe rase 46 U/L 15-37 high Not Available [facility] (Lab) [address] [place], [address], 01/11/2023 16:14:14 01/12/20 23 01/11/2023 COMPR EHENS CHIOMA METAB OLIC PANEL bilirubin, total 0.50 mg/dL 0.20-1 .30 Not Available [facility] (Lab) [address] [place], [address], 01/11/2023 16:14:14 01/12/20 23 01/11/2023 COMPR EHENS CHIOMA METAB OLIC PANEL calcium 8.7 mg/dL 8.4-10 .2 Not Available [facility] (Lab) [address] [place], [address], 01/11/2023 16:14:14 01/12/20 23 01/11/2023 COMPR EHENS CHIOMA METAB OLIC PANEL total protein 7.0 g/dL 6.3-8. 2 Not Available [facility] (Lab) [address] [place], [address], 01/11/2023 16:14:14 01/12/20 23 01/11/2023 COMPR EHENS CHIOMA METAB OLIC PANEL albumin 3.7 g/dL 3.4-5. 0 Not Available [facility] (Lab) [address] [place], [address], 01/11/2023 16:14:14 01/12/20 23 01/11/2023 COMPR EHENS CHIOMA METAB OLIC PANEL globulin 3.3 g/dL 2.6-4. 2 Not Available [facility] (Lab) [address] [place], [address], 01/11/2023 16:14:14 01/12/20 23 01/11/2023 COMPR EHENS CHIOMA METAB OLIC PANEL A/G ratio 1.1 ratio 1.0-2. 0 Not Available [facility] (Lab) [address] [place], [address], 01/11/2023 16:14:14 01/12/20 23 01/11/2023 T4 FREE free T4 1.17 NG/dL 0.78-2 .19 Not Available [facility] (Lab) [address] [place], [address], 01/11/2023 16:33:28 05/01/11/2023 TSH thyroid-stim ulating hormone 2.230 uIU/m L 0.465- 4.680 Not Available [facility] (Lab) [address] [place], [address], 01/11/2023 16:44:12 01/12/2001/11/2023 HEMOG LOBIN A1C HA1C 8.9 % 4.0-6. 0 high Diabe dimple Scree brody Crite gin: <5.7% Consi stent with absen ce of diabe dimple 5.7-6 .4% Consi stent with incre ased risk for diabe dimple (pred iabet es) >OR=6 .5% Consi stent with diabe dimple REFER ENCE: Diabe dimple Care 2016, 39(Tamayo ppl.1 ):s13 -s22 Not Available [facility] (Lab) [address] [place], [address], 01/11/2023 20:44:58 03/28/2003/28/2023 XR, chest No observ ation record ed. [email or web address] [facility] [address] [place], [address], 04/01/2023 08:54:36 Result Notes None recorded. Problems Name Problem SNOMED Code Status Onset Date Resolution Date Notes Provider Name and Address Organization Details Recorded Time Burn of foot 46495820 Active 2020 Not Available [facility] 3 11:22:34 Alcohol abuse 75934746 Active Not Available [facility] 3 11:22:34 Gonococcal cervicitis 605454402 Completed Not Available [facility] 3 02:55:23 Chlamydial cervicitis 991139604 Completed Not Available [facility] 3 02:55:23 Vaginal discharge 575391906 Active Not Available [facility] 3 11:22:34 Low back pain 684865446 Active 2018 Not Available [facility] 3 11:22:34 Pain in pelvis 91687013 Active Not Available [facility] 3 11:22:34 Bacterial vaginosis 503648387 Active Not Available [facility] 3 11:22:34 Nausea 769425264 Active 2021 Not Available [facility] 3 11:22:34 Diabetic peripheral neuropathy 219431350 Active 2021 Not Available [facility] 3 11:22:34 Uncontroll ed type 1 diabetes mellitus 461425512 Active 2021 Not Available [facility] 3 11:22:34 Diabetes mellitus 16068458 Active 2020 Not Available [facility] 3 11:22:34 Cyst of ovary 41887718 Active Not Available [facility] 3 11:22:34 Irregular periods 52152897 Active Not Available [facility] 3 11:22:34 Hyperglyce ivan 69754290 Active Not Available [facility] 3 11:22:34 Proteinuri a 46236330 Active 2022 Randee Kilpatrick MD [address], [address] , [facility] [employer] [facility] 3 14:44:54 Gastroesop hageal reflux disease without esophagiti s 977685734 Active 2022 Randee Kilpatrick MD [address] [facility], [place] [address], [place], [address] , [employer] [facility] [employer] [facility] 3 14:47:59 Problem Notes None recorded. 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 Medical Equipment None Reported. Allergies No known drug allergies Medications Name Sig Start Date Stop Date Status Note LastModified by Organization Details LastModified Time Prescriptio n - Prior Authorizati on Request active Not Available Not Available N ot Available cyclobenzap rine 10 mg tablet Take 1 tablet 3 times a day by oral route as needed for 10 days. active Not Available Not Available No t Available amoxicillin 500 mg capsule TAKE 1 CAPSULE BY MOUTH TWICE DAILY WITH FOOD 01/12 completed Not Available Not Available Not Available Mirena 21 mcg/24 hr (up to 8 years) 52 mg intrauterin e device Take 1 device by intrauter ine route. active Not Available Not Available No t Available silver sulfadiazin e 1 % topical cream APPLY A 1 16 INCH THICK LAYER TO ENTIRE BURN AREA TOPICALLY TWICE DAILY 03/26 completed Not Available Not Available Not Available Aviane 0.1 mg-20 mcg tablet Take 1 tablet every day by oral route. 05/29 completed Not Available Not Available Not Available clindamycin HCl 300 mg capsule 11/13 completed Not Available Not Available Not Available azithromyci n 250 mg tablet TAKE 4 tablets at one time active Not Available Not Available No t Available ibuprofen 800 mg tablet TAKE 1 TABLET BY MOUTH EVERY 8 HOURS WITH FOOD NEEDED FOR PAIN 03/26 completed Not Available Not Available Not Available Glucagon Emergency Kit 1 mg solution for injection INJECT 1 DOSE NEEDED active Not Available Not Available No t Available ofloxacin 0.3 % eye drops 05/29 completed Not Available Not Available Not Available Cytotec 200 mcg tablet Take 2 tablets by oral route at bedtime for 1 day. 06/10 completed Not Available Not Available Not Available fluconazole 150 mg tablet Take 1 tablet every week by oral route for 14 days. 03/26 completed Not Available Not Available Not Available hydrocodone 5 mg-acetamin ophen 325 mg tablet Take 1 tablet every day by oral route as needed. active Not Available Not Available No t Available metronidazo le 0.75 % (37.5 mg/5 gram) vaginal gel Insert 1 applicato rful by vaginal route for 5 days. 12/31 completed Not Available Not Available Not Available ondansetron HCl 4 mg tablet Take 1 tablet 3 times a day by oral route as needed for 30 days. active Not Available Not Available No t Available ceftriaxone 250 mg solution for injection INJECT 250 MG BY INJECTION ROUTE ONCE active Not Available Not Available No t Available metronidazo le 500 mg tablet TAKE 1 TABLET BY MOUTH EVERY 12 HOURS active Not Available Not Available No t Available acetaminoph en 300 mg-codeine 30 mg tablet Take 1 tablet every 6 hours by oral route. 01/21 completed Not Available Not Available Not Available ciprofloxac in 500 mg tablet TAKE 1 TABLET BY MOUTH TWICE DAILY 03/26 completed Not Available Not Available Not Available Tamiflu 75 mg capsule active Not Available Not Available N ot Available sulfamethox azole 800 mg-trimetho prim 160 mg tablet TAKE 1 TABLET BY MOUTH TWICE DAILY active Not Available Not Available No t Available tramadol 50 mg tablet Take 1 tablet 3 times a day by oral route for 10 days. 11/13 completed Not Available Not Available Not Available oxycodone-a cetaminophe n 5 mg-325 mg tablet 01/21 completed Not Available Not Available Not Available doxycycline monohydrate 50 mg capsule 05/29 completed Not Available Not Available Not Available amoxicillin 875 mg tablet 12/11 completed Not Available Not Available Not Available famotidine 20 mg tablet Take 1 tablet twice a day by oral route before meals for 90 days. 2022 active Not Available Not Available Not Avai lable tamsulosin 0.4 mg capsule active Not Available Not Available Not Available Humalog U-100 Insulin 100 unit/mL subcutaneou s solution Inject 120 units every 72 hours by subcutane ous route as directed for 90 days. 2022 active Not Available Not Available Not Avai lable ciprofloxac in 0.3 % eye drops 12/31 completed Not Available Not Available Not Available benzonatate 100 mg capsule TAKE 1 CAPSULE BY MOUTH EVERY 8 HOURS active Not Available Not Available No t Available cephalexin 500 mg capsule Take 1 capsule twice a day by oral route for 7 days. 12/11 completed Not Available Not Available Not Available erythromyci n 5 mg/gram (0.5 %) eye ointment INSTILL 1 4 INCH RIBBON IN THE RIGHT EYE AT BEDTIME active Not Available Not Available No t Available tobramycin 0.3 % eye drops active Not Available Not Available Not Available gabapentin 300 mg capsule Take 1 capsule every day by oral route at bedtime for 90 days. 2022 active Not Available Not Available Not Avai lable diclofenac sodium 75 mg tablet,nasra yed release 12/31 completed Not Available Not Available Not Available insulin syringe U-100 with needle 1 mL 31 gauge x 01/08 active Not Available Not Available Not Available cyanocobala min (vit B-12) 1,000 mcg sublingual tablet DISSOLVE 1 LOZENGE BY MOUTH ONCE DAILY IN THE MORNING active Not Available Not Available No t Available ibuprofen 600 mg tablet TAKE 1 TABLET BY MOUTH EVERY 6 TO 8 HOURS NEEDED active Not Available Not Available No t Available ondansetron 4 mg disintegrat ing tablet Place 1 tablet twice a day by transling ual route as needed for 90 days. 2022 active Not Available Not Available Not Avai lable cefdinir 300 mg capsule 01/21 completed Not Available Not Available Not Available fluticasone propionate 50 mcg/actuati on nasal spray,suspe nsion INHALE 1 SPRAY INTO EACH NOSTRIL BID active Not Available Not Available No t Available ParaGard T 380A 380 square mm intrauterin e device Take 1 device by intrauter ine route. 05/19 completed Not Available Not Available Not Available amoxicillin 875 mg-potassiu m clavulanate 125 mg tablet TAKE 1 TABLET BY MOUTH TWICE DAILY WITH FOOD 10/26 completed Not Available Not Available Not Available NuvaRing 0.12 mg-0.015 mg/24 hr vaginal Insert 1 vaginal ring every 4 weeks by vaginal route. 10/30 completed Not Available Not Available Not Available Humalog U-100 Insulin 100 unit/mL subcutaneou s cartridge USE 150 UNITS PER DAY IN INSULIN PUMP 12/11 completed Not Available Not Available Not Available insulin lispro (U-100) 100 unit/mL subcutaneou s pen injuect up to 50 units daily per sliding scale active Not Available Not Available No t Available azithromyci n 500 mg tablet TAKE 2 TABLETS BY MOUTH A ONE TIME DOSE active Not Available Not Available No t Available Premarin 0.625 mg tablet Take 1 tablet(s) twice a day by oral route for 15 days. active Not Available Not Available No t Available nitrofurant oin monohydrate /macrocryst als 100 mg capsule TAKE 1 CAPSULE BY MOUTH EVERY 12 HOURS BEFORE MEAL(S) FOR 5 DAYS 04/11 completed Not Available Not Available Not Available Trueresult Blood Glucose System kit USE DIRECTED active Not Available Not Available No t Available Pen Needle 30 gauge x 5/16 inject basaglar twice daily x 90 days active Not Available Not Available No t Available Nexplanon 68 mg subdermal implant 06/10 completed Not Available Not Available Not Available TRUEplus Insulin 0.3 mL 31 gauge x 5/16 syringe USE 1 SYRINGE THREE TIMES DAILY BEFORE MEAL(S) active Not Available Not Available No t Available TRUEplus Lancets 30 gauge 05/29 completed Not Available Not Available Not Available Xulane 150 mcg-35 mcg/24 hr transdermal patch Apply 1 patch(es) every week by transderm al route for 3 weeks, leave patch off during 4th week. active Not Available Not Available No t Available True Metrix Glucose Test Strip USE 1 STRIP TO CHECK GLUCOSE 4 TIMES DAILY BEFORE MEAL(S) active Not Available Not Available No t Available Basaglar KwikPen U-100 Insulin 100 unit/mL (3 mL) subcutaneou s Inject 40 units every day by subcutane ous route as directed for 30 days. 04/06 completed Not Available Not Available Not Available TRUEplus Pen Needle 31 gauge x 5/16 USE 5 A DAY active Not Available Not Available No t Available TRUEplus Pen Needle 32 gauge x 5/32 active Not Available Not Available Not Available OneTouch Ultra Blue Test Strip USE 1 STRIP TO CHECK GLUCOSE 4 TIMES DAILY BEFORE MEAL(S) AND AT BEDTIME active Not Available Not Available No t Available Dexcom G6 Sensor device DIRECTED. CHANGE EVERY 10 DAYS active Not Available Not Available No t Available Dexcom G6 Test Lab Technician USE DIRECTED active Not Available Not Available No t Available Dexcom G6 Transmitter device change transmitt er every 90 days 2022 active Not Available Not Available Not Avai lable Omnipod Dash Pods (Gen 4) subcutaneou s cartridge CHANGE POD EVERY 3 DAYS active Not Available Not Available No t Available OneTouch Ultra2 Meter USE DIRECTED active Not Available Not Available No t Available OneTouch Delica Plus Lancet 33 gauge TEST SUGARS 4 TIMES DAILY BEFORE MEALS DIRECTED active Not Available Not Available No t Available Slynd 4 mg (28) tablet TAKE 1 TABLET BY MOUTH ONCE DAILY 03/26 completed Not Available Not Available Not Available Gvoke HypoPen 2-Pack 1 mg/0.2 mL subcutaneou s auto-inject or Inject 1 mg as needed by subcutane ous route as needed for 1 day. 2022 active Not Available Not Available Not Avai lable Omnipod 5 G6 Pods (Gen 5) subcutaneou s cartridge active Not Available Not Available Not Available Vitals Date Recorded Body weight Body mass index (BMI) Body height Respiratory rate Body temperature Heart rate Systolic blood pressure Diastolic blood pressure Provider Name and Address Organization Details Last Updated DateTime 3 14207.2 7 g 29.1 kg/m2 162.56 cm 12 /min 98.1 [degF] 76 /min 127 mm[Hg] 81 mm[Hg] Meg Richard RN [place] [facility] [place] [facility] 3 14:11:14 Date Recorded Body mass index (BMI) Body mass index (BMI) Body mass index (BMI) Body mass index (BMI) Body height Body height Body height Body height Oxygen saturation Oxygen saturation in Arterial blood by Pulse oximetry Oxygen saturation Oxygen saturation in Arterial blood by Pulse oximetry Oxygen saturation Oxygen saturation in Arterial blood by Pulse oximetry Oxygen saturation Oxygen saturation in Arterial blood by Pulse oximetry Heart rate Heart rate Heart rate Heart rate Respiratory rate Body temperature Body temperature Body temperature Body weight Body weight Body weight Body weight Systolic blood pressure Diastolic blood pressure Systolic blood pressure Diastolic blood pressure Systolic blood pressure Diastolic blood pressure Systolic blood pressure Diastolic blood pressure Provider Name and Address Organization Details Last Updated DateTime 3 25.6 kg/m2 26.1 kg/m2 25.1 kg/m2 26.3 kg/m2 162.56 cm 162.56 cm 162.56 cm 162.56 cm 99 % 99 % 99 % 99 % 99 % 99 % 100 % 100 % 88 /min 82 /min 88 /min 84 /min 18 /min 98 [degF] 97.7 [degF] 97.8 [degF] 51335.2 6 g 96498.0 4 g 85884.4 9 g 37410.6 3 g 122 mm[Hg] 80 mm[Hg] 116 mm[Hg] 74 mm[Hg] 116 mm[Hg] 82 mm[Hg] 110 mm[Hg] 70 mm[Hg] Not Available [facility] 02:52:06 Social History Question Answer Notes LastModified by Organizat ion Details LastModified Time Tobacco Smoking Status Current Every Day Smoker Not Available [facility] 10/24/2022 02:43:10 What Is Your Level Of Alcohol Consumption? Occasional [id number] Information not available 10/24/2022 What Is Your Level Of Caffeine Consumption? Heavy [id number] Information not available 10/24/2022 How Much Tobacco Do You Chew? None [id number] Information not available 10/24/2022 In The 14 Days Before Symptom Onset, Have You Had Close Contact With A Laboratory-confir med COVID-19 While That Case Was Ill? No [id number] Information not available 10/24/2022 In The 14 Days Before Symptom Onset, Have You Had Close Contact With A Person Who Is Under Investigation For COVID-19 While That Person Was Ill? No [id number] Information not available 10/24/2022 What Type Of Diet Are You Following? REGULAR [id number] Information not available 10/24/2022 Which Illicit Or Recreational Drugs Have You Used? None [id number] Information not available 10/24/2022 Do You Or Have You Ever Used E-cigarettes Or Vape? 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 Domestic Partner [id number] Information not available 10/24/2022 Do You Or Have You Ever Used Smokeless Tobacco? Never Used Smokeless Tobacco [id number].[id number] Information not available 10/24/2022 How Much Tobacco Do You Smoke? 1 PPD [id number] Information not available 10/24/2022 Do You Use Any Illicit Or Recreational Drugs? No [id number] Information not available 10/24/2022 Have You Recently Traveled Abroad? No [id number] Information not available 10/24/2022 Do You Have Any Dietary Restrictions? No [id number] Information not available 10/24/2022 Sex: Female Functional Status None recorded. Mental Status None recorded. Family History Relationship Description Onset Age of this Age Resolved Age Notes LastModified by Organization Details LastModified Time Father Diabetes mellitus [id number] Not available 10/24/2022 02:48:34 Paternal Grandmother Malignant tumor of breast [id number] Not available 10/24/2022 02:48:34 Medical History Condition Response DIABETES, TYPE Y Gynecological History Statement/Question Response Abnormal Pap N Date of Last Pap Smear 10/30/2017 Current Control Method IUD Age at Menarche 14 Date of LMP Obstetrics History GPAL:G 4 P 1 2 1 3 Type Value Full Term 1 Spontaneous 1 Premature 2 Living 3 Total 4 Immunizations Vaccine Type Date Status Note Provider Nam e and Address Organization Details Recorded Time Influenza, split virus, quadrivalent, PF 06/24/2018 completed Not Available [facility] 09:09:38 Past Encounters Encounter ID Performer Location Encounter Start Date Encounter Closed Date Diagnosis/Indication Diagnosis SNOMED-CT Code Diagnosis ICD10 Code Diagnosis Note [id number] _ATHENA_M IGRATION_ DEFAULT_1 _1 , 01/12/2021 00:00:00 01/16/2021 21:13:51 [id number] _ATHENA_M IGRATION_ DEFAULT_1 _1 , 04/06/2021 00:00:00 04/06/2021 18:21:27 [id number] [facility] [address] [place] [address] 05/16/2021 00:00:00 05/16/2021 16:30:44 [id number] [facility] [address] [place] [address] 05/17/2021 00:00:00 05/17/2021 13:41:42 [id number] [facility] [address] [place] [address] 05/31/2021 00:00:00 05/31/2021 15:23:51 [id number] [facility] [address] [place] [address] 06/07/2021 00:00:00 06/07/2021 16:59:02 [id number] _ATHENA_M IGRATION_ DEFAULT_1 _1 , 06/29/2021 00:00:00 06/29/2021 16:26:41 [id number] _GRAHAM_M IGRATION_ DEFAULT_1 _1 , 10/26/2021 00:00:00 10/26/2021 18:19:39 [id number] _ATHENA_M IGRATION_ DEFAULT_1 _1 , 02/01/2022 00:00:00 02/15/2022 12:52:22 [id number] Randee Kilpatrick MD [facility] [address] [place] [address] 03/26/2023 13:59:58 03/26/2023 15:20:08 Uncontrolled type 1 diabetes mellitus 304281643 E10.65 A1C of 8.9% from December- patient has upgraded to omnipod 5 since early January and doing better overall- per patient glucose average of 150 mg/dL and less- denies any hypoglycem ia. Continue settings as follows:12 am to 9 am at 0.4 u/hr9 am to 12 am at 0.7 u/hrContin ued 1:15 carb ratio and along with correction of 60 mg/dL. Send Gvoke for hypoglycem ia and refill pods, sensors and transmitte r for further care. Diabetic p eripheral neuropathy 008281615 E11.40 Refill gabapentin for neuropathy as she is able to sleep when taking her once daily dosing. Proteinuria 62610528 R80 .9 Refer to nephrology for significan t proteinuri a. Gastroesop hageal reflux disease without esophagitis 871778791 K21.9 Trial on famotidine - she has tried OTC formulatio ns and effective for her heartburn and zofran as needed. Spent up to 25 minutes preparing to see the patient (eg, review of tests), obtaining and/or reviewing separately obtained history, performing a medically appropriat e examinatio n and evaluation , counseling and educating the patient, ordering medication s, tests, along with documentin g clinical informatio n in the electronic health record, independen tly interpreti ng results and communicat ing results to the patient. Patient can be followed by PCP - she/he is aware of my resignatio n and last day of June 07. If needed his/her PCP can refer patient to another endocrinol ogist in the area. All questions /concerns answered and refills necessary at visit today. Health Concerns Section Related Observation LastModified by Organization Detai ls LastModified Time None Recorded Concern Status LastModified by Organization Details LastModified Time None Recorded Advance Directives Directive None Recorded Payers Encounter Date Sequence Insurance Name Policy Number Policy Sosa Covered Member ID Sosa Member ID Guarantor Name 03/26/2023 1 [facility] (MEDICAID HMO) [id number] Tara Hinkle [id number] Tara Hinkle Notes Date Note Type Note Provider Name and Address Organization Details Recorded Time 03/26/2023 text/html 37 yo female com es in for follow up in management of uncontrolled type I DM (A1C of 8.9% from December), neuropathy. To note patient has significant proteinuria on most recent workup and more kidney infections. last seen in January 2022 at that time weadjusted pump settings as follows:12 am to 2pm 0.4 u/hr2 pm to 12 am increase to 0.65 u/hrContinued 1:15 carb ratio with breakfast and lunch and 1:14 with dinner. Increase correction to 55. we added gabapentin 300 mg at bedtime. In December she was not consistent in her pump. She got omnipod 5 since that time and she has been tweeking her settings a little.Now fasting sugars are better overall. She had a recent kidney infection. She had abx provided and she had to double up the timing of her treatment timing.12 am to 9 am at 0.4 u/hr9 am to 12 am at 0.7 u/hrContinued 1:15 carb ratio and along with correction of 60 mg/dL. She needs a new GVoke pen but . She is having regular cycles. labs from December 2022:a1c 8.9%TSH of 2.230 uIU/mlFT4 of 1.17 ng/dLmicroalbumin >1140 ug/mgglucose 181 mg/dlCr normalALT /81/109/6 1 Randee Kilpatrick MD [address] [facility], [facility] [address], [place], [address], [place] [facility] [place] [facility] 03/26/2023 14:54:34 OBGyn Episode No OBEpisode recorded.
--- OUTSIDE RECORDS SUMMARY | 2024-10-02 03:33 | XMS_ITS | Continuity of Care Document ---
Author Organization [employer] [facility] Address [address] [place] [address] Phone Care Team Providers Care Bilingual Nanny Name Role Phone Conversion MD, Doctor Unavailable [...] Diagnoses Date Provider Providers Copied on Encounter [facility], [address], [place], [place], [address], tel:[phone] Conversion Department No Information 6201 1 Conversion Doctor. [facility] [place], [address], [place]. [facility], [address], [place], [place], [address], tel:[phone] [facility] ACUTE URI NOS 5200 8 Conversion Doctor. [address] [place] [address], [address], . [facility], [address], [place], [place], [address], tel:[phone] [facility] CARBUNCLE OF TRUNK 2200 7 Chuy Adamson. [address] [facility], [address]th Floor, [place], [place], [address], [place]. tel:[phone] [facility], [address], [place], [place], [address], [place] tel:[phone] [facility] HAIR DISEASES NEC 4-[address], [address], [place], [place], [address], [place]. tel:[phone] [facility], [address], [place], [place], [address], [place] tel:[phone] [facility] DMI WO CMP NT ST UNCNTRL 4-200 7 Conversion Doctor. [address] [place] [address], [address], [place]. [facility], [address], [place], [place], [address], tel:[phone] [facility] URIN TRACT INFECTION NOS 8-[address], [address], [place], [place], [address], . tel:[phone] [facility], [address], [place], [place], [address], tel:[phone] [facility] OTALGIA NOS 2200 6 Michael Khan. [address], [address], [place], [place], [address], . tel:[phone] [facility], [address], [place], [place], [address], tel:[phone] [facility] MGRN WO AURA WO NTRC MGR Nov-2 2-200 5 Michael Khan. [address], [address], [place], [place], [address], . tel:[phone] [facility], [address], [place], [place], [address], tel:[phone] [facility] No Information 2200 [address] Michael Khan[address], [address], [place], [place], [address], [place]. tel:[phone] [facility], [address], [place], [place], [address], [place] tel:[phone] [facility] PREG STATE, INCIDENTAL 7200 3 [facility]. [address] [facility], [facility] [address], [place], [place], [address], . tel:[phone] [facility], [address], [place], [place], [address], [place] tel:[phone] [facility] ALLERGIC RHINITIS NOS 2 6200 1 Leonarda Leonard. [address], [address], [place], [place], [address], . tel:[phone] Family History Family Member Type Diagnosis Age At Onset No Information Immunizations Vaccine Date Status Comments 15101 - TD administered Source: Source Unspecified 58055 - Influenza administered Source: So urce Unspecified 98375 - Influenza administered Source: So urce Unspecified 66350 - Influenza administered Source: So urce Unspecified 58981 - Influenza administered Source: So urce Unspecified 38725 - Hepatitis_B administered Source: Source Unspecified 14279 - Hepatitis_B administered Source: Source Unspecified 04583 - Hepatitis_B administered Source: Source Unspecified 17161 - DTaP_DTP_DT_PEDS administered Kiana rce: Source Unspecified 54484 - Polio_OPV_IPV administered Source : Source Unspecified 61136 - MMR administered Source: Source Unspecified 91553 - Polio_OPV_IPV administered Source : Source Unspecified 91477 - DTaP_DTP_DT_PEDS administered Kiana rce: Source Unspecified 20153 - Hib administered Source: Source Unspecified 96842 - DTaP_DTP_DT_PEDS administered Kiana rce: Source Unspecified 96061 - MMR administered Source: Source Unspecified 91372 - DTaP_DTP_DT_PEDS administered Kiana rce: Source Unspecified 52145 - Polio_OPV_IPV administered Source : Source Unspecified 62981 - DTaP_DTP_DT_PEDS administered Kiana rce: Source Unspecified 29801 - Polio_OPV_IPV administered Source : Source Unspecified Payers Payer name Insurance type Covered libertarian ID Authoriza tion(s) No Information Social History [...]
--- OUTSIDE RECORDS SUMMARY | 2024-10-02 03:33 | XMS_ITS | Patient Health Summary ---
Author Organization [facility] Address [employer] [place] [address] Care Team Providers Care Sample Tailor Name Role Phone Unavailable Primary Care Provider Laurent e Note from [facility],non-owned Affiliates and Associated Physician Practices is amultiple site organization consisting of ambulatory clinics and hospital sitesin [place], [place], [place] and [place]. This disclosure is being madepursuant to the Care Everywhere program and may not contain all information available regarding this patient. Last updated 18.[facility] Allergies No known active allergies Medications * Be aware that medications may not be up to date on this document. Alwaysverify current medications with the patient. * glucose blood (ONETOUCH ULTRA TEST STRIPS) strip(Started 09/29/2009) Use 1 Strip 8 times daily. For glucose monitoring. 6 refills left * OneTouch FinePoint Lancets MISC(Started 09/29/2009) Use 8 Sticks daily. For glucose monitoring. 11 refills left * glucagon (GLUCAGON EMERGENCY) injection(Started 09/29/2009) Inject 1 mg subcutaneously as needed 2 refills left * acetone(urine) (KETOSTIX) strip(Started 09/29/2009) Use daily. For testing. 6 refills left * buPROPion SR 12hr (WELLBUTRIN-SR) 100 MG tablet(Started 02/24/2010) Take 1 Tab by mouth daily. 5 refills left * acetaminophen (TYLENOL) 500 MG tablet Take 500 mg by mouth every 4 hours as needed. Maximum allowable Acetaminophen amount = 4 Grams / 24hours. * zolpidem (AMBIEN) 5 MG tablet(Started 04/27/2010) Take 1 Tab by mouth nightly as needed for Insomnia (May take 1 more tab ). * oxycodone-acetaminophen (PERCOCET) 5-325 MG tablet(Started 05/16/2010) Take 1-2 Tabs by mouth every 4 hours as needed for Pain. * ibuprofen (MOTRIN) 600 MG tablet(Started 05/16/2010) Take 1 Tab by mouth every 6 hours as needed for Pain. 2 refills left * docusate sodium (COLACE) 100 MG capsule(Started 05/16/2010) Take 1 Cap by mouth 2 times daily as needed for Constipation. 2 refills left * w/o Vit A; w/ Fe Fum-FA (-U) 106-1 MG capsule(Started 05/16/2010) Take 1 Cap by mouth daily. 2 refills left * imiquimod (ALDARA) 5 % cream(Started 07/10/2010) Apply to affected area Two times a week. 1 refill left * escitalopram (LEXAPRO) 20 MG tablet(Started 09/22/2010) Take 1 Tab by mouth daily. 1 refill left Active Problems Problem Noted Date Diagnosed Date Supervision of high-risk of christopher mult igravida 01/28/2018 GBS + 04/19/2010 Depression 01/12/2010 Non compliance with medical treatment 01/12/2010 Genital warts 10/06/2009 Tobacco abuse 10/06/2009 Previous delivery, antepartum condition or complication 10/06/2009 Need for hypbbjz-vyyoh-enjjlec (MMR) vaccine 06/2010 Diabetes mellitus type 1 Resolved Problems Problem Noted Date Diagnosed Date Resolved Date Polyhydramnios 02/23/2010 01/28/2018 Supervision of high-risk pre gnancy of young multigravida 10/06/2009 01/28/2018 +/E/-/-; HIV neg 10/06/2009 11/10/2009 Immunizations * Human Papilloma Virus Vaccine(Given 11/10/2010, 07/10/2010) * MMR(Given 05/16/2010) Social History Tobacco Use Types Packs/Day Years [...] Mass Index 30.04 11/10/2010 2:25 PM CDT Procedures * US PELVIS W TRANSVAG NON OB(Performed 11/16/2010) Performed for Abnormal vaginal bleeding * RPR(Performed 11/10/2010) * HEPATITIS C ANTIBODY(Performed 11/10/2010) * HEPATITIS B SURFACE ANTIGEN W RFLX CONFIRMATION(Performed 11/10/2010) * HIV-1 HIV-2 ANTIBODY(Performed 11/10/2010) * CYTOLOGY CERVICAL/VAG PAP SCREEN THIN PREP(Performed 11/10/2010) * CHLAMYDIA + GC AMPLIFIED PROBE(Performed 11/10/2010) * HCG URINE QUALITATIVE - POINT OF CARE(Performed 07/10/2010) * IMAGING/RADIOLOGY/XRAY RESULTS ORDER(Performed 05/17/2010) * GLUCOSE - POINT OF CARE(Performed 05/16/2010) * GLUCOSE - POINT OF CARE(Performed 05/16/2010) * GLUCOSE - POINT OF CARE(Performed 05/16/2010) * GLUCOSE - POINT OF CARE(Performed 05/16/2010) * GLUCOSE - POINT OF CARE(Performed 05/15/2010) * GLUCOSE - POINT OF CARE(Performed 05/15/2010) * GLUCOSE - POINT OF CARE(Performed 05/15/2010) * GLUCOSE - POINT OF CARE(Performed 05/15/2010) * GLUCOSE - POINT OF CARE(Performed 05/15/2010) * GLUCOSE - POINT OF CARE(Performed 05/15/2010) * GLUCOSE - POINT OF CARE(Performed 05/15/2010) * GLUCOSE - POINT OF CARE(Performed 05/14/2010) * GLUCOSE - POINT OF CARE(Performed 05/14/2010) * GLUCOSE - POINT OF CARE(Performed 05/14/2010) * GLUCOSE - POINT OF CARE(Performed 05/14/2010) * GLUCOSE - POINT OF CARE(Performed 05/14/2010) * GLUCOSE - POINT OF CARE(Performed 05/14/2010) * GLUCOSE - POINT OF CARE(Performed 05/14/2010) * GLUCOSE - POINT OF CARE(Performed 05/14/2010) * GLUCOSE - POINT OF CARE(Performed 05/14/2010) * CBC W AUTO DIFFERENTIAL(Performed 05/14/2010) * GLUCOSE - POINT OF CARE(Performed 05/14/2010) * GLUCOSE - POINT OF CARE(Performed 05/14/2010) * GLUCOSE - POINT OF CARE(Performed 05/13/2010) * GLUCOSE - POINT OF CARE(Performed 05/13/2010) * GLUCOSE - POINT OF CARE(Performed 05/13/2010) * GLUCOSE - POINT OF CARE(Performed 05/13/2010) * CBC W AUTO DIFFERENTIAL(Performed 05/13/2010) * GLUCOSE - POINT OF CARE(Performed 05/13/2010) * GLUCOSE - POINT OF CARE(Performed 05/13/2010) * GLUCOSE - POINT OF CARE(Performed 05/13/2010) * GLUCOSE - POINT OF CARE(Performed 05/12/2010) * GLUCOSE - POINT OF CARE(Performed 05/12/2010) * GLUCOSE - POINT OF CARE(Performed 05/12/2010) * GROSS + MICRO EXAM(Performed 05/12/2010) * GROSS + MICRO EXAM(Performed 05/12/2010) * BLOOD GASES CORD LYNN(Performed 05/12/2010) * BLOOD GASES CORD ARTERIAL(Performed 05/12/2010) * GLUCOSE - POINT OF CARE(Performed 05/12/2010) * GLUCOSE - POINT OF CARE(Performed 05/12/2010) * GLUCOSE - POINT OF CARE(Performed 05/12/2010) * GLUCOSE - POINT OF CARE(Performed 05/12/2010) * GLUCOSE - POINT OF CARE(Performed 05/12/2010) * GLUCOSE PROTEIN KETONE URINE - POINT OF CAR(Performed 05/12/2010) * GLUCOSE - POINT OF CARE(Performed 05/12/2010) * TYPE + SCREEN PANEL(Performed 05/12/2010) * CBC W AUTO DIFFERENTIAL(Performed 05/12/2010) * BIOPHYSICAL PROFILE W NST(Performed 05/10/2010) * GLUCOSE PROTEIN KETONE URINE - POINT OF CAR(Performed 05/08/2010) * LS RATIO AMNIOTIC FLUID(Performed 05/02/2010) Performed for Diabetes Mellitus Type 1 (HCC), Tobacco Abuse, Polyhydramnios * LUNG MATURITY(Performed 05/02/2010) Performed for Diabetes Mellitus Type 1 (HCC), Tobacco Abuse, Polyhydramnios * AMNIOCENTESIS W US GUIDANCE- MATURITY(Performed 05/02/2010) * IMAGING/RADIOLOGY/XRAY RESULTS ORDER(Performed 04/28/2010) * GLUCOSE - POINT OF CARE(Performed 04/27/2010) * GLUCOSE - POINT OF CARE(Performed 04/27/2010) * GLUCOSE - POINT OF CARE(Performed 04/27/2010) * GLUCOSE - POINT OF CARE(Performed 04/27/2010) * GLUCOSE - POINT OF CARE(Performed 04/27/2010) * BASIC METABOLIC PANEL (CALCIUM TOTAL)(Performed 04/27/2010) * GLUCOSE - POINT OF CARE(Performed 04/27/2010) * SONOGRAM - COMPLETE(Performed 04/27/2010) Performed for Depression, Non Compliance with Medical Treatment, Genital Warts, Tobacco Abuse, Rubella Equivical, Supervision of Other High-Risk (HCC), Diabetes Mellitus Type 1 (HCC), GBS +, Depressive Disorder, Not Elsewhere Classified * BASIC METABOLIC PANEL (CALCIUM TOTAL)(Performed 04/26/2010) * HEMOGLOBIN A1C(Performed 04/24/2010) * GLUCOSE PROTEIN KETONE URINE - POINT OF CAR(Performed 04/24/2010) * CULTURE STREP B(Performed 04/17/2010) * GLUCOSE PROTEIN KETONE URINE - POINT OF CAR(Performed 04/17/2010) * SONOGRAM - COMPLETE(Performed 04/06/2010) * ECHO CONSULT - (Performed 03/27/2010) Performed for Polyhydramnios, Supervision of Other High-Risk (HCC), Diabetes Mellitus Type 1 (HCC) * GLUCOSE PROTEIN KETONE URINE - POINT OF CAR(Performed 03/27/2010) * GLUCOSE PROTEIN KETONE URINE - POINT OF CAR(Performed 03/20/2010) * GLUCOSE PROTEIN KETONE URINE - POINT OF CAR(Performed 03/06/2010) * IMAGING/RADIOLOGY/XRAY RESULTS ORDER(Performed 02/28/2010) * GLUCOSE - POINT OF CARE(Performed 02/24/2010) Performed for Diabetes in Preg-Unspec * GLUCOSE - POINT OF CARE(Performed 02/24/2010) Performed for Diabetes in Preg-Unspec * GLUCOSE - POINT OF CARE(Performed 02/24/2010) Performed for Diabetes in Preg-Unspec * GLUCOSE - POINT OF CARE(Performed 02/24/2010) Performed for Diabetes in Preg-Unspec * GLUCOSE - POINT OF CARE(Performed 02/24/2010) Performed for Diabetes in Preg-Unspec * GLUCOSE - POINT OF CARE(Performed 02/24/2010) Performed for Diabetes in Preg-Unspec * GLUCOSE - POINT OF CARE(Performed 02/24/2010) Performed for Diabetes in Preg-Unspec * GLUCOSE - POINT OF CARE(Performed 02/23/2010) Performed for Diabetes in Preg-Unspec * GLUCOSE - POINT OF CARE(Performed 02/23/2010) Performed for Diabetes in Preg-Unspec * GLUCOSE - POINT OF CARE(Performed 02/23/2010) Performed for Diabetes in Preg-Unspec * GLUCOSE - POINT OF CARE(Performed 02/23/2010) Performed for Diabetes in Preg-Unspec * GLUCOSE - POINT OF CARE(Performed 02/23/2010) Performed for Diabetes in Preg-Unspec * GLUCOSE - POINT OF CARE(Performed 02/23/2010) Performed for Diabetes in Preg-Unspec * GLUCOSE - POINT OF CARE(Performed 02/23/2010) Performed for Diabetes in Preg-Unspec * GLUCOSE - POINT OF CARE(Performed 02/23/2010) Performed for Diabetes in Preg-Unspec * GLUCOSE - POINT OF CARE(Performed 02/23/2010) Performed for Diabetes in Preg-Unspec * GLUCOSE - POINT OF CARE(Performed 02/23/2010) Performed for Diabetes in Preg-Unspec * GLUCOSE - POINT OF CARE(Performed 02/23/2010) Performed for Diabetes in Preg-Unspec * GLUCOSE - POINT OF CARE(Performed 02/23/2010) Performed for Diabetes in Preg-Unspec * GLUCOSE - POINT OF CARE(Performed 02/23/2010) Performed for Diabetes in Preg-Unspec * GLUCOSE - POINT OF CARE(Performed 02/23/2010) Performed for Diabetes in Preg-Unspec * GLUCOSE - POINT OF CARE(Performed 02/23/2010) Performed for Diabetes in Preg-Unspec * GLUCOSE - POINT OF CARE(Performed 02/23/2010) Performed for Diabetes in Preg-Unspec * GLUCOSE - POINT OF CARE(Performed 02/23/2010) Performed for Diabetes in Preg-Unspec * GLUCOSE - POINT OF CARE(Performed 02/22/2010) Performed for Diabetes in Preg-Unspec * GLUCOSE - POINT OF CARE(Performed 02/22/2010) Performed for Diabetes in Preg-Unspec * GLUCOSE - POINT OF CARE(Performed 02/22/2010) Performed for Diabetes in Preg-Unspec * GLUCOSE - POINT OF CARE(Performed 02/22/2010) Performed for Diabetes in Preg-Unspec * GLUCOSE - POINT OF CARE(Performed 02/22/2010) Performed for Diabetes in Preg-Unspec * GLUCOSE - POINT OF CARE(Performed 02/22/2010) Performed for Diabetes in Preg-Unspec * GLUCOSE - POINT OF CARE(Performed 02/22/2010) Performed for Diabetes in Preg-Unspec * GLUCOSE - POINT OF CARE(Performed 02/22/2010) Performed for Diabetes in Preg-Unspec * GLUCOSE - POINT OF CARE(Performed 02/22/2010) Performed for Diabetes in Preg-Unspec * GLUCOSE - POINT OF CARE(Performed 02/22/2010) Performed for Diabetes in Preg-Unspec * GLUCOSE - POINT OF CARE(Performed 02/22/2010) Performed for Diabetes in Preg-Unspec * GLUCOSE - POINT OF CARE(Performed 02/22/2010) Performed for Diabetes in Preg-Unspec * GLUCOSE - POINT OF CARE(Performed 02/22/2010) Performed for Diabetes in Preg-Unspec * GLUCOSE - POINT OF CARE(Performed 02/22/2010) Performed for Diabetes in Preg-Unspec * COMPREHENSIVE METABOLIC PANEL(Performed 02/22/2010) Performed for DM w/o Complication Type I (HCC) * CREATININE CLEARANCE URINE TIMED + BLOOD(Performed 02/22/2010) Performed for DM w/o Complication Type I (HCC) * PROTEIN URINE TIMED QUANTITATIVE(Performed 02/22/2010) Performed for DM w/o Complication Type I (HCC) * GLUCOSE - POINT OF CARE(Performed 02/21/2010) Performed for DM w/o Complication Type I (HCC) * GLUCOSE - POINT OF CARE(Performed 02/21/2010) Performed for DM w/o Complication Type I (HCC) * GLUCOSE - POINT OF CARE(Performed 02/21/2010) Performed for DM w/o Complication Type I (HCC) * GLUCOSE - POINT OF CARE(Performed 02/21/2010) Performed for DM w/o Complication Type I (HCC) * GLUCOSE - POINT OF CARE(Performed 02/21/2010) Performed for DM w/o Complication Type I (HCC) * GLUCOSE - POINT OF CARE(Performed 02/21/2010) Performed for DM w/o Complication Type I (HCC) * GLUCOSE PROTEIN KETONE URINE - POINT OF CAR(Performed 02/21/2010) * GLUCOSE - POINT OF CARE(Performed 02/21/2010) Performed for DM w/o Complication Type I (HCC) * GLUCOSE - POINT OF CARE(Performed 02/21/2010) Performed for DM w/o Complication Type I (HCC) * GLUCOSE - POINT OF CARE(Performed 02/21/2010) Performed for DM w/o Complication Type I (HCC) * GLUCOSE - POINT OF CARE(Performed 02/21/2010) Performed for DM w/o Complication Type I (HCC) * GLUCOSE - POINT OF CARE(Performed 02/21/2010) Performed for DM w/o Complication Type I (HCC) * SONOGRAM - LIMITED(Performed 02/21/2010) * GLUCOSE - POINT OF CARE(Performed 02/20/2010) Performed for DM w/o Complication Type I (HCC) * GLUCOSE - POINT OF CARE(Performed 02/20/2010) Performed for DM w/o Complication Type I (HCC) * CULTURE STREP B(Performed 02/20/2010) Performed for Thrt [facility] * CHLAMYDIA + GC AMPLIFIED PROBE(Performed 02/20/2010) Performed for Thrt [facility] * GLUCOSE - POINT OF CARE(Performed 02/20/2010) Performed for DM w/o Complication Type I (HCC) * TYPE + SCREEN PANEL(Performed 02/20/2010) Performed for Thrt [facility] * HEMOGLOBIN A1C(Performed 02/20/2010) Performed for DM w/o Complication Type I (HCC) * ACETONE BLOOD QUALITATIVE(Performed 02/20/2010) Performed for Thrt [facility] * URINALYSIS REFLEX TO MICROSCOPIC NO CULTURE(Performed 02/20/2010) Performed for Thrt [facility] * COMPREHENSIVE METABOLIC PANEL(Performed 02/20/2010) Performed for Thrt [facility] * CBC W AUTO DIFFERENTIAL(Performed 02/20/2010) Performed for Thrt [facility] * GLUCOSE - POINT OF CARE(Performed 02/20/2010) Performed for Suprv High-Risk Preg NEC * GLUCOSE PROTEIN KETONE URINE - POINT OF CAR(Performed 02/20/2010) * GLUCOSE - POINT OF CARE(Performed 01/12/2010) Performed for Suprv High-Risk Preg NEC * GLUCOSE PROTEIN KETONE URINE - POINT OF CAR(Performed 01/12/2010) * GLUCOSE - POINT OF CARE(Performed 01/12/2010) Performed for Suprv High-Risk Preg NEC * SONOGRAM - COMPLETE(Performed 01/04/2010) * HEMOGLOBIN A1C(Performed 12/15/2009) Performed for Suprv High-Risk Preg NEC * ALPHA FETOPROTEIN BLOOD MATERNAL QUAD PANEL(Performed 12/15/2009) Performed for Suprv High-Risk Preg NEC * GLUCOSE PROTEIN KETONE URINE - POINT OF CAR(Performed 12/15/2009) * GLUCOSE PROTEIN KETONE URINE - POINT OF CAR(Performed 11/10/2009) * CYTOLOGY CERVICAL/VAG PAP SCREEN THIN PREP(Performed 10/06/2009) Performed for Suprv High-Risk Preg NEC * CHLAMYDIA + GC AMPLIFIED PROBE(Performed 10/06/2009) Performed for Suprv High-Risk Preg NEC * HEMOGLOBIN A1C(Performed 10/06/2009) Performed for Suprv High-Risk Preg NEC * HIV-1 HIV-2 ANTIBODY(Performed 10/06/2009) Performed for Suprv High-Risk Preg NEC * OBSTETRIC PANEL(Performed 10/06/2009) Performed for Suprv High-Risk Preg NEC * GLUCOSE PROTEIN KETONE URINE - POINT OF CAR(Performed 10/06/2009) * HCG URINE QUALITATIVE - POINT OF CARE(Performed 09/29/2009) * HEMOGLOBIN A1C - POINT OF CARE (IP)(Performed 09/29/2009) * GROSS + MICRO EXAM(Performed 03/31/2007) * GROSS + MICRO EXAM(Performed 10/07/2003) * HCG URINE QUALITATIVE - POCT (IP) [facility](Performed 08/26/1998) Results * US PELVIS WITH TRANSVAG NON OB (11/16/2010 3:18 PM CDT) Anatomical Region Laterality Modality Pelvis Ultrasound 11/16/2010 3:48 PM CDT Impressions 11/17/2010 7:00 AM CDT IUD in uterine cavity. Ovarian cysts. Narrative 11/17/2010 7:00 AM CDT Pelvic sonogram. HISTORY: Vaginal bleeding, IUD placement. Transabdominal and transvaginal views show the uterus to measure 7.7 x 5.0 x 6.1 cm. There is echogenic material in the uterine cavity consistent with an IUD. The position appears to be satisfactory on these images. The left ovary is 36 x 28 mm with a 14 mm cyst and a smaller 11 mm cyst identified. Normal Doppler signal is present. The right ovary is 4.9 x 2.3 cm with several cysts present the largest of which is about 2.6 x 1.5 cm. Procedure Note Diomedes Galdamez MD - 11/17/2010 Pelvic sonogram. HISTORY: Vaginal bleeding, IUD placement. Transabdominal and transvaginal views show the uterus to measure 7.7 x 5.0 x 6.1 cm. There is echogenic material in the uterine cavity consistent with an IUD. The position appears to be satisfactory on these images. The left ovary is 36 x 28 mm with a 14 mm cyst and a smaller 11 mm cyst identified. Normal Doppler signal is present. The right ovary is 4.9 x 2.3 cm with several cysts present the largest of which is about 2.6 x 1.5 cm. IMPRESSION IUD in uterine cavity. Ovarian cysts. Ladonna Vasques MD US ORDERABLE S * RPR (11/10/2010 4:35 PM CDT) RPR Non-Reacti ve Non Reactive [facility] BLOOD SPECIMEN / Unknown 11/10/2010 4:35 PM CDT 11/10/2010 4:45 PM CDT Ladonna Vasques MD LAB - CHEMIS TRY ORDERABLES Performing Organization Address City/[facility] Co de Phone Number [facility] [address] [place] [address] * HIV-1 HIV-2 ANTIBODY (11/10/2010 4:35 PM CDT) Only the most recent of2 resultswithin the time period is included. Pathologist [facility] HIV-1/HIV-2 Nonreactive Nonreactive [facility] BLOOD SPECIMEN / Unknown 11/10/2010 4:35 PM CDT 11/10/2010 4:45 PM CDT Ladonna Vasques MD LAB - CHEMIS TRY ORDERABLES Performing Organization Address City/[facility] Co de Phone Number [facility] [address] [place] [address] * HEPATITIS B SURFACE ANTIGEN (11/10/2010 4:35 PM CDT) Pathologist [facility] Hepatitis B Virus Surface Antigen Nonreactive Nonreactive [facility] BLOOD SPECIMEN / Unknown 11/10/2010 4:35 PM CDT 11/10/2010 4:45 PM CDT Ladonna Vasques MD LAB - CHEMIS TRY ORDERABLES Performing Organization Address [facility] Co de Phone Number [facility] [address] [place] [phone] * HEPATITIS C ANTIBODY (11/10/2010 4:35 PM CDT) Hepatitis C Antibody Screen Nonreactive Nonreactive [facility] BLOOD SPECIMEN / Unknown 11/10/2010 4:35 PM CDT 11/10/2010 4:45 PM CDT Ladonna Vasques MD LAB - CHEMIS TRY ORDERABLES Performing Organization Address [facility] de Phone Number [facility] [address] [place] [phone] * CYTOLOGY CERVICAL/VAG SCREEN THIN PREP (11/10/2010 4:30 PM CDT) Only the most recent of2 resultswithin the time period is included. Comment Thin Prep [facility] Pap Smear Report See Scanned Report [facility] ENTIRE ENDOCERVIX / Unknown 11/10/2010 4:30 PM CDT 11/10/2010 4:45 PM CDT Narrative Resulting Agency Comment Performed By [facility]() [address] [place] [phone] Ladonna Vasques MD LAB - PATHOL OGY/CYTOLOGY ORDERABLES Performing Organization Address City/[facility] Co de Phone Number [facility] [address] [place] [phone] * CHLAMYDIA + GC DNA PROBE AMPLIFIED (11/10/2010 4:30 PM CDT) Only the most recent of3 resultswithin the time period is included. Chlamydia trachomatis Amplified Probe Neg [facility] GC Amplified Probe Neg [facility] Comment Amplified Probe [facility] Comment: Comments and Normal Ranges for Component DNA Probe comment Results based on detection/no detection of ribosomal RNA by amplified method. ENTIRE ENDOCERVIX / Unknown 11/10/2010 4:30 PM CDT 11/10/2010 4:46 PM CDT Narrative Resulting Agency Comment Performed By [address] [place] [address] Ladonna Vasques MD LAB - MICROB IOLOGY ORDERABLES Performing Organization Address City/[facility]/ZIP Co de Phone Number [facility] [address] [place] [phone] * HCG URINE QUALITATIVE - POINT OF CARE (07/10/2010 9:18 AM P[facility]) Only the most recent of2 resultswithin the time period is included. HCG Qual Urine neg Negative [facility] POCT TESTING QC Verified yes Yes [facility] POC T TESTING Urine specimen (specimen) URINE / Unknown 07/10/2010 9:18 AM [facility] Paige Torres MD LAB - POINT OF CARE ORDERABLES Performing Organization Address [facility] Co de Phone Number [facility] [place] [address] * IMAGING/RADIOLOGY/XRAY RESULTS ORDER (05/17/2010 2:19 PM CDT) Only the most recent of3 resultswithin the time period is included. Anatomical Region Laterality Modality Other Narrative Procedure Note Document, Scanned - 05/17/2010 12:20 PM CDT Scanned Document IMAGING * (ABNORMAL) GLUCOSE - POINT OF CARE (05/16/2010 12:22 PM CDT) Only the most recent of99 resultswithin the time period is included. Glucose WB/POC 218(H) 70 - 110 mg/dl [facility] BLOOD SPECIMEN / Unknown 05/16/2010 12:22 PM CDT 05/16/2010 12:56 PM CDT Jordin Hartman MD LAB - POINT OF CARE ORDERABLES Performing Organization Address [facility]/ZIP Co de Phone Number [facility] [address] [place] [phone] * (ABNORMAL) CBC W AUTO DIFFERENTIAL (05/14/2010 4:30 AM CDT) Only the most recent of4 resultswithin the time period is included. WBC 11.5(H) 4.0 - 10.0 K/CUMM [facility] RBC 3.93 3.80 - 5.80 M/CUMM [facility] Hemoglobin 10.8(L) 12.0 - 16.0 gm/dl [facility] Hematocrit 31.0(L) 37.0 - 47.0 % [facility] MCV 78.9(L) 80.0 - 100.0 fl [facility] MCH 27.5 26.0 - 34.0 pg [facility] MCHC 34.8 31.0 - 37.0 gm/dl [facility] Platelet Count 175 150 - 400 K/CUMM [facility] RDW 13.0 11.5 - 14.5 % [facility] Granulocytes % 74.2(DH) 50 - 70 % [facility] Lymphocytes % 14.4(DL) 20 - 40 % [facility] Monocytes % 8.9(DE) 0 - 12 % [facility] Eosinophils % 1.9 0 - 5 % [facility] Basophils % 0.2 0 - 2 % [facility] Granulocytes Absolute 8.56(H) 2.00 - 7.00 x1000/cmm [facility] Lymphocytes Absolute 1.66 0.80 - 4.00 x1000/cmm [facility] Monocytes Absolute 1.03 0.00 - 1.20 x1000/cmm [facility] Eosinophils Absolute 0.22 0.00 - 0.50 x1000/cmm [facility] Basophils Absolute 0.02 0.00 - 0.20 x1000/cmm [facility] BLOOD SPECIMEN / Unknown 05/14/2010 4:30 AM CDT 05/14/2010 5:01 AM CDT Ellen Bautista MD LAB - HEMATOLOGY OR DERABLES [facility] [id number] [place] [address] * GROSS + MICRO EXAM (05/12/2010 4:00 PM CDT) Only the most recent of4 resultswithin the time period is included. Result CASE NUMBER [id number] Comment: ORDERING PHYSICIAN DORIS BAUTISTA SPECIMEN TYPE Placenta 3rd Trimes Date 05/13/[address] Xander Hartman Gross Description A single specimen is received in a formalin filled container labeled with the patient's name and placenta. The specimen consists of a hester placenta with attached umbilical cord and membranes. There is abundant blood clot in the container. The umbilical cord measures 27 cm in length by up to 1.3 cm in largest diameter. A single false knot is seen 4 cm from the insertion point. The umbilical cord is inserted eccentrically at 4.5 cm from the nearest placental disk margin. Serial sectioning reveals an unremarkable, three-vessel umbilical cord. The membranes are fragmented, marginally inserted, donaldson, candelario- bluish- tinged, and cloudy. The placental disk has a trimmed weight of 570 grams. It has an oval shape measuring approximately 21 x 16 cm across with a thickness of the parenchyma reaching up to 2 cm. The surface is covered by unremarkable, yzwf-lzqaap-ywtxph, slightly cloudy membranes. The maternal surface shows well- formed cotyledons and superficially adherent blood clot. Serial sectioning reveals an unremarkable, spongy, purple placental parenchyma. Manager Of Planning sections of the specimen are submitted as follows A Umbilical cord and membranes B/C Placenta parenchyma LS/dc Microscopic Exam Sections of the umbilical cord show three vessel unremarkable umbilical cord with no acute funisitis or thrombosis. Sections of the membranes show very mild focal acute chorioamnionitis. Sections of the parenchyma show small, well vascularized, mature villi with no evidence of inflammation, infarction or thrombosis. LS/na GM Diagnosis I. Placenta -- Mature placenta 570 grams -- Three vessel umbilical cord -- Mild acute chorioamnionitis LS/na GM Legal Adviser na Pathologist Sita Dailey MD [place]. 05/15/2010 1332 <1> CPT code 46904 MISCELLANEOUS SAMPLES / Unknown 05/12/2010 4:00 PM CDT 05/13/2010 8:55 AM CDT Historical Provider LAB - PATHOLOGY/C YTOLOGY ORDERABLES * (ABNORMAL) BLOOD GASES CORD VENOUS (05/12/2010 4:00 PM CDT) pH Cord Venous 7.240 7.18 - 7.33 [facility] pCO2 Cord Venous 60(H) 43 - 55 mm Hg [facility] pO2 Cord Venous 19(L) 22 - 33 mm Hg [facility] Base Excess Cord Venous -3.4 -2.0 - 2.0 [facility] HCO3 Cord Venous 25 mmol/L [facility] Panic Value(s) Read Back By DYLAN Leary [facility] CORD BLOOD SPECIMEN / Unknown 05/12/2010 4:00 PM CDT 05/12/2010 5:42 PM CDT Ellen Bautista MD LAB - BLOOD GASES O PAGE Performing Organization Address [facility] Co de Phone Number [facility] [address] [place] [address] * (ABNORMAL) BLOOD GASES CORD ARTERIAL (05/12/2010 3:45 PM CDT) pH Cord Arterial 7.141(L) 7.16 - 7.30 [facility] pO2 Cord Arterial range 12 - 20 mm Hg [facility] HCO3 Cord Arterial 29. mmol/L [facility] Base Excess Cord Arterial -2.7 -2.0 - 2.0 [facility] Panic Value(s) Read Back By [id number] [facility] CORD BLOOD SPECIMEN / Unknown 05/12/2010 3:45 PM CDT 05/12/2010 5:36 PM CDT Narrative [facility] - 05/12/2010 5:40 PM CDT rct Ellne Bautista MD LAB - BLOOD GASES O PAGE Performing Organization Address [facility] Co de Phone Number [facility] [address] [place] [address] * GLUCOSE PROTEIN KETONE URINE - POINT OF CAR (05/12/2010 8:54 AM CDT) Only the most recent of13 resultswithin the time period is included. Glucose UA negative Negative [facility] Protein UA negative Negative [facility] Ketone UA negative Negative [facility] QC Verified yes Yes [facility] P[facility] T TESTING Urine specimen (specimen) URINE / Unknown 05/12/2010 8:54 AM CDT Ellen Bautista MD LAB - POINT OF CARE ORDERABLES Performing Organization Address City/[facility]/ZIP Co de Phone Number [facility] [place] [address] * TYPE + SCREEN PANEL (05/12/2010 8:13 AM CDT) Only the most recent of2 resultswithin the time period is included. ABO Rh B Pos SEE BELOW [facility] Comment: Weak D testing is not performed at [facility] Antibody Screen Neg [facility] Previous History Check Done Historical blood type on record, type verification complete. [facility] BLOOD SPECIMEN / Unknown 05/12/2010 8:13 AM CDT 05/12/2010 9:27 AM CDT Ellen Bautista MD LAB - BLOOD BANK OR DERABLES Performing Organization Address [facility] Co de Phone Number [facility] [address] [place] [address] * BIOPHYSICAL PROFILE W NST (05/10/2010) Anatomical Region Laterality Modality Other Liz Ramey MD [facility] ORDERABLES * LS RATIO FLUID (05/02/2010 10:30 AM CDT) L/S Ratio 2.9 SEE BELOW [facility] Comment: Immature <=1.5 Transitional 1.6-1.9 Mature >=2.0 Color Fluid Pale Yellow [facility] Character Amnio Slightly Hazy [facility] Gestational Age 37w4d [facility] Volume Amnio 10 ml [facility] Interpretation L/S Ratio [facility] Comment: PLEASE NOTE - L/S Ratio correlates with gestational age only in normal pregnancies. Abnormalities of , such as Retroplacental Bleeding and Ruptured Membranes, Hypertensive Renal or Cardiovascular Disease, Class D, E, and F Diabetes, and Maternal Hypertension can accelerate L/S Ratio maturation. Conversely, delayed maturation of L/S Ratio can be caused by Erythroblastosis Fetalis, Diabetes Mellitus (Class A, B, or C), and Chronic Nonhypertensive Glomerulonephritis. AMNIOTIC FLUID SPECIMEN / Unknown 05/02/2010 10:30 AM CDT 05/02/2010 11:20 AM CDT Sidney Vicente MD LAB - BODY FLUID ORDERABLES Performing Organization Address [facility] Co de Phone Number [facility] [address] [place] [address] * LUNG MATURITY (05/02/2010 10:30 AM CDT) FLM 38.5 SEE BELOW mg/g [facility] Comment: See Interpretation for Normals Color Fluid Pale Yellow [facility] Character Amnio Slightly Hazy [facility] Gestational Age 37w4d [facility] Volume Amnio 10 ml [facility] Interpretation FLM [facility] Comment: FLM Immature ......... <= 39 mg/g Mature ......... >= 55 mg/g Results between 40 and 54 cannot be declared mature or immature and should be evaluated with caution. AMNIOTIC FLUID SPECIMEN / Unknown 05/02/2010 10:30 AM CDT 05/02/2010 11:20 AM CDT Sidney Vicente MD LAB - BODY FLUID ORDERABLES Performing Organization Address [facility] de Phone Number [facility] [address] [place] [address] * AMNIOCENTESIS W US GUIDANCE- MATURITY (05/02/2010) Anatomical Region Laterality Modality Other Hamidapablito Hernándezbradley HOYT [facility] ORDERABLES * (ABNORMAL) BASIC METABOLIC PANEL (CALCIUM TOTAL) (04/27/2010 5:33 AM CDT) Only the most recent of2 resultswithin the time period is included. Sodium 136(L) 137 - 145 mmol/L [facility] Potassium 3.8 3.6 - 5.0 mmol/L [facility] Chloride 107 98 - 107 mmol/L [facility] BUN 6(DL) 7 - 17 mg/dl [facility] Creatinine 0.58 0.52 - 1.04 mg/dl [facility] Glucose 45(L) 65 - 105 mg/dl [facility] CO2 22 22 - 30 mmol/L [facility] Calcium 8.5(DE) 8.4 - 10.2 mg/dl [facility] eGFR by MDRD 129 >60 mL/min/1.7 3m2 [facility] Comment eGFR [facility] Comment: The eGFR does not apply to patients who are younger than 18 or older than 70. BLOOD SPECIMEN / Unknown 04/27/2010 5:33 AM CDT 04/27/2010 5:35 AM CDT Maria C Donahue MD LAB - [facility]as [facility] Performing Organization Address [facility] Co de Phone Number [facility] [address] [place] [address] * SONOGRAM - COMPLETE (04/27/2010) Only the most recent of3 resultswithin the time period is included. Anatomical Region Laterality Modality Other Sidney Vicente MD [facility] ORDERABLES * (ABNORMAL) HEMOGLOBIN A1C (04/24/2010 12:15 PM CDT) Only the most recent of4 resultswithin the time period is included. Hemoglobin A1c 7.4(H) 3.9 - 6.1 % [facility] Estimated Average Glucose 165.7 mg/dl [facility] BLOOD SPECIMEN / Unknown 04/24/2010 12:15 PM CDT 04/24/2010 2:32 PM CDT Yanira Chow DO LAB - CHEMISTRY ORDChas HUFF Performing Organization Address [facility] Co de Phone Number [facility] [address] [place] [address] * CULTURE STREP B (04/17/2010 1:20 PM CDT) Only the most recent of2 resultswithin the time period is included. Report [facility] Comment: Final - CULTURE BETA HEMOLYTIC STREP GROUP B Heavy growth If treatment is indicated, the organism can be expected to be susceptible to penicillins, cephalosporins and macrolides. Bacteremia/serious infection may require the addition of an aminoglycoside faxed to [phone] 04/19/10 MISCELLANEOUS SAMPLES / Unknown 04/17/2010 1:20 PM CDT 04/17/2010 2:36 PM CDT Narrative [facility] - 04/19/2010 8:54 AM CDT kevin 04/17 Yanira Chow DO LAB - MICROBIOLOGY O RDERABLES [facility] [address] [place] [address] * ECHO CONSULT - (03/27/2010 10:05 AM CDT) 03/27/2010 10:0 5 AM CDT Narrative [facility] - 03/27/2010 11:48 AM CDT , Echocardiogram 2D, M-mode, and Doppler Name: TARA HINKLE MR #: [id number] Study date: 03/27/2010 Age: : 1985 Gender: Female Ht: / Wt: / BSA: HR: BP: / age: TORSTEN: Maternal age: REFERRING PHYSICIAN: Sidney Vicente MD MECHANICAL ASSEMBLY: Delia Jerez MD PEDIATRIC ECHO NEWS CORRESPONDENT: CECIL Anthony Allergies: NKA History: , due to diabetes. Procedure: The procedure was performed in the echo lab. rhythm: The rhythm was normal sinus rhythm. The NC interval was 0 msec. morphology: There was normal heart anatomy and hemodynamics. There was normal heart size and situs. There was normal flow velocity across the outflow tract. Anatomic relationships: There was a normal atrio-ventricular connection. There was a normal ventriculo-arterial connection. Normally related great vessels. Systemic veins: There was normal systemic venous return. Ductus venosus: Flow in the ductus venosus was normal. Pulmonary veins: There was normal pulmonary venous return. Left ventricle: Wall thickness was normal. Aorta: A normal aortic arch was appreciated. Systemic arteries: The umbilical artery flow pattern was normal. Extracardiac shunting: Ductus arteriosus: A normal ductus arteriosus was appreciated. Impressions: - Diagnoses: The echocardiogram is within normal limits with no evidence of biventricular hypertrophy. Small atrial and ventricular septal defects, and persistent ductus arteriosus cannot be excluded as findings. Recommendations: Repeat study is recommended as needed. Prepared and signed by Delia Jerez MD Signed 03/27/2010 11:56:34 2D MEASUREMENTS General (Reference) Cardiac area 11.48 cm Thoracic area 45 cm Cardiac circumference 12.15 mm Thoracic circumference 23.8 mm Cardiac area/thoracic area 0.26 Cardiac circ/thoracic circ 0.51 DOPPLER MEASUREMENTS General (Reference) Umbilical artery pulsatility index sys 1.51 Systemic veins (Reference) Ductus venosus pulsatility index Tricuspid valve (Reference) Valve peak velocity E-wave 47 cm/sec Valve peak velocity A-wave 66 cm/sec Mitral valve (Reference) Valve peak velocity E-wave 45 cm/sec Valve peak velocity A-wave 62 cm/sec Pulmonic valve (Reference) Valve peak velocity m/sec m/sec Aortic valve (Reference) Valve peak velocity m/sec m/sec Pulmonary artery (Reference) RPA pulsatility index room air LPA pulsatility index room air Aorta (Reference) Isthmus pulsatility index Ductus arteriosus (Reference) Pulsatility index 2.76 Legend: Predicted normals (shown in italics) are given as mean 2 SD Asterisk (*) chavira values outside the specified normal range. Procedure Note 03/27/2010 , Echocardiogram 2D, M-mode, and Doppler Name: TARA HINKLE MR #: [id number] Study date: 03/27/2010 Age: : 1985 Gender: Female Ht: / Wt: / BSA: HR: BP: / age: TORSTEN: Maternal age: REFERRING PHYSICIAN: Sidney Vicente MD MECHANICAL ASSEMBLY: Delia Jerez MD PEDIATRIC ECHO NEWS CORRESPONDENT: CECIL Anthony Allergies: NKA History: , due to diabetes. Procedure: The procedure was performed in the echo lab. rhythm: The rhythm was normal sinus rhythm. The NC interval was 0 msec. morphology: There was normal heart anatomy and hemodynamics. There was normal heart size and situs. There was normal flow velocity across the outflow tract. Anatomic relationships: There was a normal atrio-ventricular connection. There was a normal ventriculo-arterial connection. Normally related great vessels. Systemic veins: There was normal systemic venous return. Ductus venosus: Flow in the ductus venosus was normal. Pulmonary veins: There was normal pulmonary venous return. Left ventricle: Wall thickness was normal. Aorta: A normal aortic arch was appreciated. Systemic arteries: The umbilical artery flow pattern was normal. Extracardiac shunting: Ductus arteriosus: A normal ductus arteriosus was appreciated. Impressions: - Diagnoses: The echocardiogram is within normal limits with no evidence of biventricular hypertrophy. Small atrial and ventricular septal defects, and persistent ductus arteriosus cannot be excluded as findings. Recommendations: Repeat study is recommended as needed. Prepared and signed by Delia Jerez MD Signed 03/27/2010 11:56:34 2D MEASUREMENTS General (Reference) Cardiac area 11.48 cm Thoracic area 45 cm Cardiac circumference 12.15 mm Thoracic circumference 23.8 mm Cardiac area/thoracic area 0.26 Cardiac circ/thoracic circ 0.51 DOPPLER MEASUREMENTS General (Reference) Umbilical artery pulsatility index sys 1.51 Systemic veins (Reference) Ductus venosus pulsatility index Tricuspid valve (Reference) Valve peak velocity E-wave 47 cm/sec Valve peak velocity A-wave 66 cm/sec Mitral valve (Reference) Valve peak velocity E-wave 45 cm/sec Valve peak velocity A-wave 62 cm/sec Pulmonic valve (Reference) Valve peak velocity m/sec m/sec Aortic valve (Reference) Valve peak velocity m/sec m/sec Pulmonary artery (Reference) RPA pulsatility index room air LPA pulsatility index room air Aorta (Reference) Isthmus pulsatility index Ductus arteriosus (Reference) Pulsatility index 2.76 Legend: Predicted normals (shown in italics) are given as mean 2 SD Asterisk (*) chavira values outside the specified normal range. Delia Jerez MD ECHO ORDERABLES Performing Organization Address City/State/[facility] Co de Phone Number [facility] [address] [place] [address] * (ABNORMAL) COMPREHENSIVE METABOLIC PANEL (02/22/2010 12:15 AM CDT) Only the most recent of2 resultswithin the time period is included. Sodium 134(L) 137 - 145 mmol/L [facility] Potassium 3.6 3.6 - 5.0 mmol/L [facility] Chloride 103 98 - 107 mmol/L [facility] BUN 9 7 - 17 mg/dl [facility] Creatinine 0.74 0.52 - 1.04 mg/dl [facility] Glucose 83 65 - 105 mg/dl [facility] Calcium 8.4 8.4 - 10.2 mg/dl [facility] Alkaline Phosphatase 55 38 - 126 U/L [facility] AST 15 8 - 39 U/L [facility] Bilirubin Total 0.5 0.2 - 1.3 mg/dl [facility] Protein Total 6.4 6.3 - 8.2 gm/dl [facility] Albumin 3.0(L) 3.9 - 5.0 gm/dl [facility] CO2 24 22 - 30 mmol/L [facility] ALT 5(L) 9 - 52 U/L [facility] eGFR by MDRD 98 >60 mL/min/1.7 3m2 [facility] Comment eGFR [facility] Comment: The eGFR does not apply to patients who are younger than 18 or older than 70. BLOOD SPECIMEN / Unknown 02/22/2010 12:15 AM CDT 02/22/2010 12:47 AM CDT Jerry Isaac MD LAB - CHEMISTRY ORDE REFUGIO Performing Organization Address City/[facility]/ZIP Co de Phone Number [facility] [address] [place] [address] * (ABNORMAL) PROTEIN URINE TIMED QUANTITATIVE (02/22/2010 12:00 AM CDT) Volume 24 Hour Urine 5140 ml [facility] Protein 24 Hour Urine 514(H) 42 - 225 mg/24hr [facility] URINE SPECIMEN COLLECTION, 24 HOURS / Unknown 02/22/2010 02/22/2010 12:47 AM CDT Ellen Villeda MD LAB - U RINE CHEMISTRY ORDERABLES [facility] [address] [place] [address] * CREATININE CLEARANCE URINE TIMED (02/22/2010 12:00 AM CDT) Creatinine 0.74 0.52 - 1.04 mg/dl [facility] Creatinine Urine 19.5 mg/dl [facility] Volume 24 Hour Urine 4631 ml/24 Hr [facility] Creatinine 24 Hour Urine 1002.3 800 - 1800 mg/24hr [facility] Creatinine Clearance 85 85 - 125 ml/min [facility] URINE SPECIMEN COLLECTION, 24 HOURS / Unknown 02/22/2010 02/22/2010 12:47 AM CDT Ellen Villeda MD LAB - U RINE CHEMISTRY ORDERABLES Performing Organization Address [facility] de Phone Number [facility] [address] [place] [address] * SONOGRAM - LIMITED (02/21/2010) Anatomical Region Laterality Modality Other Ellen Villeda MD [facility] ORD ERABLES * (ABNORMAL) URINALYSIS ROUTINE AUTO (02/20/2010 6:10 PM CDT) Source Clean Catch [facility] Color UA Pale Yellow [facility] Character UA Clear [facility] Glucose UA >=1000(AA) NEGATIVE mg/dl [facility] Bilirubin UA NEGATIVE NEGATIVE [facility] Ketone UA NEGATIVE NEGATIVE mg/dl [facility] Specific Jeffers UA 1.010 1.003 - 1.030 [facility] Blood UA NEGATIVE NEGATIVE [facility] pH UA 6.5 5.0 - 9.0 [facility] Protein UA NEGATIVE NEGATIVE-TR ABILIO mg/dl [facility] Urobilinogen UA 0.2 0.2 - 1.0 Edwina Units/dl [facility] Nitrite UA NEGATIVE NEGATIVE [facility] Leukocyte UA NEGATIVE NEGATIVE [facility] Reducing Substances UA >= 2.0(H) Negative gm/dl [facility] URINE SPECIMEN OBTAINED BY CLEAN CATCH PROCEDURE / Unknown 02/20/2010 6:10 PM CDT 02/20/2010 9:33 PM CDT Ellen Villeda MD LAB - U RINALYSIS ORDERABLES Performing Organization Address [facility]/ZIP Co de Phone Number [facility] [address] [place] [address] * ACETONE BLOOD QUALITATIVE (02/20/2010 6:10 PM CDT) Acetone Negative Negative [facility] BLOOD SPECIMEN / Unknown 02/20/2010 6:10 PM CDT 02/20/2010 9:14 PM CDT Ellen Villeda MD LAB - C HEMISTRY ORDERABLES [facility] [address] [place] [address] * ALPHA FETOPROTEIN BLOOD MATERNAL QUAD PANEL (12/15/2009 12:40 PM CDT) Alpha-Fetoprotein 38 ng/ml [facility] AFP MoM 1.23 [facility] HCG QUANT Serum 98446 IU/L [facility] hCG MoM 1.98 [facility] Estriol 1.45 ng/ml [facility] UE3 MoM 1.16 [facility] Dimeric Inhibin A 251 pg/ml [facility] RAMY MoM 1.77 [facility] Interpretation AFP [facility] Comment: Comments and Normal Ranges for Component *AFP Interp The information submitted indicates that the patient was taking medication to control diabetes at the time of conception. Her diabetic status increases the pre-test risk for neural tube defects in this by a factor of 4. Maternal Serum Quad Screen (AFP/hCG/uE3/RAMY) NORMAL SCREEN Risks Pre-test Post-test (Cutoff) Open NTD 1 in 225 1 in 1900 Down Syndrome 1 in 1100 1 in 3200 (1 in 150) Trisomy 18 1 in 76163 <1 in 91716 (1 in 100) Assuming the patient information listed is correct, this maternal serum screen is within normal limits. The interpretation is based on maternal age, gestational age, maternal weight, the presence or absence of insulin requiring maternal diabetes, maternal race, and number of fetuses, if known. Specimen First [facility] Maternal Weight 169 [facility] Maternal Age 23.0 [facility] Dating LNMP [facility] Gestational Age Exact 17.86 [facility] Insulin for Diabetes Yes [facility] Family History of Neural Tube Defect Unknown [facility] Maternal Race White [facility] Number of Fetuses Unknown [facility] Estimate Due Date [id number] [facility] Comment Ref Lab [facility] Comment: Comments and Normal Ranges for Component *No.of Fetuses To download an enhanced report for this test, scroll down to the Enhanced Laboratory Reports section (lower right) of the web page at/ [email or web address]. Enter the following username and password/ User Name/ [email or web address] Password/ [email or web address] BLOOD SPECIMEN / Unknown 12/15/2009 12:40 PM CDT 12/15/2009 1:02 PM CDT Narrative Resulting Agency Comment Performed By [facility] [address] [place], [place] [address] Dayanna Stiles MD LAB - CHEMISTRY CRISTIANO HUFF [facility] [address] [place] [address] * (ABNORMAL) OBSTETRIC PANEL (10/06/2009 11:30 AM POND [facility]) WBC 10.2(H) 4.0 - 10.0 K/CUMM [facility] RBC 4.68 3.80 - 5.80 M/CUMM [facility] Hemoglobin 12.8 12.0 - 16.0 gm/dl [facility] Hematocrit 38.7 37.0 - 47.0 % [facility] MCV 82.7 80.0 - 100.0 fl [facility] MCH 27.4 26.0 - 34.0 pg [facility] MCHC 33.1 31.0 - 37.0 gm/dl [facility] RDW 13.9 11.5 - 14.5 % [facility] Platelet Count 236 150 - 400 K/CUMM [facility] Granulocytes % 66.1 50 - 70 % [facility] Lymphocytes % 22.1 20 - 40 % [facility] Monocytes % 9.3 0 - 12 % [facility] Eosinophils % 1.4 0 - 5 % [facility] Basophils % 0.7 0 - 2 % [facility] RPR Non-Reactive Non Reactive [facility] Hepatitis B Virus Surface Antigen Nonreactive Nonreactive [facility] ABO Rh B POS SEE BELOW [facility] Comment: Weak D testing is not performed at [facility] Antibody Screen NEG [facility] Rubella Antibody 7.8 SEE BELOW IU/ml [facility] Comment: =>10.0 Positive-Immune 5.0-9.9 Suggest Repeat Testing <5.0 Negative-Nonimmune Granulocytes Absolute 6.72 2.00 - 7.00 x1000/cmm [facility] Lymphocytes Absolute 2.25 0.80 - 4.00 x1000/cmm [facility] Monocytes Absolute 0.95 0.00 - 1.20 x1000/cmm [facility] Eosinophils Absolute 0.14 0.00 - 0.50 x1000/cmm [facility] Basophils Absolute 0.07 0.00 - 0.20 x1000/cmm [facility] BLOOD SPECIMEN / Unknown 10/06/2009 11:30 AM POND [facility] 10/06/2009 11:41 AM [facility] Stephen Rodarte MD LAB - CHEMISTRY ORDERABLES [facility] [address] [place] [address] * (ABNORMAL) HEMOGLOBIN A1C - POINT OF CARE (IP) (09/29/2009 10:06 AM P[facility]) Hemoglobin A1c POCT 11(A) 3.4 - 6.1 % [facility] POCT TEST[facility] QC Verified Yes [facility] POC T TESTING Blood specimen (specimen) BLOOD SPECIMEN / Unknown 09/29/2009 10:06 AM [facility] Sidney Vicente MD LAB - POINT OF C ARE ORDERABLES Performing Organization Address City/[facility]/ZIP Co de Phone Number [facility] [place] [address] * HCG URINE QUALITATIVE - POCT (IP) [facility] (08/26/1998 12:00 AM P[facility]) Test Urine neg [facility] Urine specimen (specimen) 08/26/1998 Amanda Carroll MD LAB - POIN T OF CARE ORDERABLES [facility]
--- OUTSIDE RECORDS SUMMARY | 2024-10-02 03:33 | XMS_ITS | Clinical Summary ---
Author Organization [facility] Facility Address [address] [address] Care Team Providers Care Verify Rep Name Role Phone Janak Adams MD Primary Care Provider [phone] Social History Tobacco Use Types Packs/Day Years Used Date Smoking Tobacco: Never Assessed Comments Unknown Sex and Gender Information Value Date Recorded Sex Assigned at Not on file Legal Sex Female 4:43 PM EDT Gender Identity Not on file Sexual Orientation Not on file Last Filed Vital Signs Vital Sign Reading Time Taken Comments Blood Pressure 136/80 02/25/2024 3:10 PM CDT Pulse 68 02/25/2024 3:10 PM CDT Temperature 36.1 C (97 F) 02/25/2024 3:10 PM CDT Respiratory Rate 18 02/25/2024 3:10 PM CDT Oxygen Saturation 98% 02/25/2024 3:10 PM CDT Inhaled Oxygen Concentration - - Weight 78.9 kg (174 lb) 02/25/2024 3:10 PM CDT Height - - Body Mass Index - - Plan of Treatment Health Maintenance Due Date Last Done Comments Pneumococcal Vaccine: Pediat rics (0 to 5 Years) and At-Risk Patients (6 to 64 Years) (1 of 2 - PCV) 1993 Hepatitis B Vaccine (1 of 3 - 19+ 3-dose series) 2006 Diabetes: Hemoglobin A1C 04/01/2023 Diabetes: Ophthalmology Exam 04/01/2023 Diabetes: Pedal Pulse Checked 04/01/2023 Diabetes: Sensory Foot Exam 04/01/2023 Diabetes: Visual Foot Exam 04/01/2023 Influenza Vaccine (#1) 2024 06/24/2018, 2015 Insurance [employer] Care Teams Verify Rep Relationship Specialty Start Date End Date Janak Adams MD [address] [place] [address] PCP - General Endocrinology 02/25/24
--- OUTSIDE RECORDS SUMMARY | 2024-10-02 03:33 | XMS_ITS | Clinical Summary ---
Author Organization [facility] Address [address] [place] [address] [place] [address] Care Team Providers Care Payable Manager Name Role Phone Unavailable Primary Care Provider Unavailabl e Source Comments [facility],non-owned Affiliates and Associated Physician Practices is amultiple site organization consisting of ambulatory clinics and hospital sitesin [place], [place], [place] and [place]. This disclosure is being madepursuant to the Care Everywhere program and may not contain all information available regarding this patient. Last updated 18.Social Pulse Allergies No known active allergies Medications * [...] complication 10/06/2009 Overview (10/06/2009): 2 prior at [facility], pt wants repeat. Both LTCS. Need for tkvlbzi-vdwji-pdjkyin (MMR) vaccine 06/2010 Overview (01/17/2015): MMR after [...] Papilloma Virus Vaccine 11/10/2010, 010 MMR 05/16/2010 Family History Medical History Relation Name Comments Diabetes Father Cancer Paternal Grandmother breast Relation Name Status Comments Brother 1 Alive Brother 2 Alive Father Alive Maternal Grandfather Alive Maternal Grandmother Alive Mother Alive Paternal Grandfather Alive Paternal Grandmother Alive Social History Tobacco Use Types Packs/Day [...] 11/10/2010 2:25 PM CDT Plan of Treatment Health Maintenance Due Date Last Done Comments DTAP/TDAP/TD VACCINES (1 - Tdap) 2006 HEPATITIS B VACCINE (1 of 3 - 19+ 3-dose series) 2006 PNEUMOCOCCAL VACCINE (1 of 2 - PCV) 2006 HPV VACCINE (3 - 3-dose series) 02/02/2011 11/10/2010, 07/10/2010 PAP SMEAR 11/10/2013 11/10/2010, 11/10/2010, 10/06/2009 COVID-19 VACCINE ( - 2023-2 5 season) 2024 INFLUENZA VACCINE (#1) 2024 DEPRESSION SCREENING 08/26/2024 ZOSTER VACCINE (1 of 2) 2037 HEPATITIS C SCREENING Completed 11/10/2010 HIV SCREENING Completed 11/10/2010, 10/06/2009 HIB VACCINE Aged Out No longer eligi ble based on patient's age to complete this topic MENINGOCOCCAL (Group B) VACCINE Aged Out No longer eligible b ased on patient's age to complete this topic MENINGOCOCCAL VACCINE Aged Out No vernon alejandra eligible based on patient's age to complete this topic Procedures Procedure Name Priority Date/Time Associated Diagnosis Comments HEPATITIS C ANTIBODY Today 11/10/2010 4:35 PM CDT HIV-1 HIV-2 ANTIBODY Today 11/10/2010 4:35 PM CDT CYTOLOGY CERVICAL/VAG PAP SCREEN THIN PREP Today 11/10/2010 4:30 PM CDT from Last 3 Months or Most Recently Relevant to Health Maintenance Results * HIV-1 HIV-2 ANTIBODY (11/10/2010 4:35 PM CDT) HIV-1/HIV-2 Nonreactive Nonreactive [facility] BLOOD SPECIMEN / Unknown 11/10/2010 4:35 PM CDT 11/10/2010 4:45 PM CDT Ladonna Vasques MD LAB - CHEMIS TRY ORDERABLES Performing Organization Address City/[facility]/ZIP Co de Phone Number [facility] [address] [place] [phone] * HEPATITIS C ANTIBODY (11/10/2010 4:35 PM CDT) Hepatitis C Antibody Screen Nonreactive Nonreactive [facility] BLOOD SPECIMEN / Unknown 11/10/2010 4:35 PM CDT 11/10/2010 4:45 PM CDT Ladonna Vasques MD LAB - CHEMIS TRY ORDERABLES Performing Organization Address City/[facility] Co de Phone Number [facility] [address] [place] [phone] * CYTOLOGY CERVICAL/VAG SCREEN THIN PREP (11/10/2010 4:30 PM CDT) Comment Thin Prep [facility] Pap Smear Report See Scanned Report [facility] ENTIRE ENDOCERVIX / Unknown 11/10/2010 4:30 PM CDT 11/10/2010 4:45 PM CDT Narrative Resulting Agency Comment Performed By [facility]() [address] [place], [place] [address] Ladonna Vasques MD LAB - PATHOL OGY/CYTOLOGY ORDERABLES Performing Organization Address City/[facility]/ZIP Co de Phone Number [facility] [address] [place] [phone] from Last 3 Months or Most Recently [...]
[2024-10-02] MEDS: diphenhydrAMINE HCl INJ 50 MG/ML VIAL 25 MG IV PUSH (05:00)
[2024-10-02] MEDS: PROCHLORPERAZINE EDISYLATE 10 MG/2 ML VIAL IM (05:00)
[2024-10-02] MEDS: SODIUM CHLORIDE 0.9% IV 999 ML IV CONT (05:01)
[2024-10-02 05:03] LABS: Basophils Percent Auto 0.3 % (0.2-1.2); Hematocrit 31.2 % (37.0-47.0); Immature Granulocyte Absolute 0.05 K/mm3 (0.00-0.031); Immature Granulocyte Percent A 0.4 % (0-0.5); Lymphocytes Percent Auto 6.6 % (18.3-44.2); Mean Corpuscular HGB Conc 32.1 g/dl (32-36); Mean Corpuscular Hemoglobin 25.7 pg (26-34); Mean Corpuscular Volume 80.2 fl (80-100); Mean Platelet Volume 11.2 fl (7.4-10.4); Monocytes Absolute Auto 0.3 K/mm3 (0.1-0.6); Monocytes Percent Auto 2.7 % (2.6-8.5); Neutrophils Absolute Auto 10.9 K/mm3 (1.3-6.7); Platelet Count Result 232 k/mm3 (150-375); Red Blood Count 3.89 M/mm3 (4.2-5.4); Red Cell Distribution Width 14.6 % (11.5-14.5); White Blood Count 12.1 K/mm3 (4.5-10.0)
[2024-10-02 05:13] LABS: Alanine Aminotransferase 23 U/L (6-35); Albumin Level 3.9 g/dL (3.5-5.1); Alkaline Phosphatase 65 U/L (38-126); Anion Gap 24 mmol/L (4-12); Aspartate Amino Transferase 25 U/L (14-36); Bilirubin,Total 1.2 mg/dL (0.2-1.3); Blood Urea Nitrogen 17 mg/dL (7-17); Calcium 9.6 mg/dL (8.4-10.2); Carbon Dioxide 12 mmol/L (22-30); Chloride 102 mmol/L (98-107); Estimated CRCL calculation 88 ml/min; Estimated Glomerular Filt Rate > 60; Glucose 421 mg/dL (65-110); Lipase 41 U/L (23-300); Potassium 4.4 mmol/L (3.4-5.0); Sodium 138 mmol/L (137-145)
--- NOTE | 2024-10-02 05:24 | ED_ITS ---
HPI - General Adult General Chief complaint: Abdominal Pain <Jim Ellington MD - Last Filed: 10/02/24 19:13> Stated complaint: ABD PAIN/N/V/D, <Jim Ellington MD - Last Filed: 10/02/24 19:13> History of Present Illness HPI narrative: This is a 39-year-old female with history of type 1 diabetes and cyclic vomiting presenting for nausea/vomiting/diarrhea. Patient started having nausea vomiting yesterday. She then started developed crampy abdominal pain. She had been using her insulin pump up until around 1:00 a.m. when she thinks that it fell out when she was vomiting. Patient denies fevers chills chest radial fully reviewed or urinary symptoms. Patient says she feels like she is in DKA. <Jim Ellington MD - Last Filed: 10/02/24 19:13> Related Data Home medications: Home Medications ?Medication ?Instructions ?Recorded ?Confirmed ?Last Taken ?Type mecobalamin (vitamin B12) 500 mcg 500 mcg PO DAILY 07/15/24 10/02/24 Unknown History chewable tablet multivitamin 1 tablet PO DAILY 07/15/24 10/02/24 Unknown History melatonin 10 mg tablet 10 mg PO HS PRN Insomnia 08/02/24 10/02/24 Unknown History blood-glucose transmitter (Dexcom 10/02/24 10/02/24 Unknown History G6 Transmitter device) metoclopramide HCl 10 mg tablet 10 mg PO Q6H PRN nausea and 10/02/24 10/02/24 Unknown History vomiting <Jim Ellington MD - Last Filed: 10/02/24 19:13> Allergies/adverse reactions: Allergies Allergy/AdvReac Type Severity Reaction Status Date / Time No Known Allergies Allergy Verified 10/02/24 09:10 <Jim Ellington MD - Last Filed: 10/02/24 19:13> [facility] Past Medical History Medical History: Medical History Cannabinoid hyperemesis syndrome Bipolar disorder Esophageal varices 04/2024 Depression Migraine Diabetic neuropathy GERD with esophagitis Hyperlipidemia Gastroparesis Elevated liver enzymes Type 1 diabetes mellitus Diagnosed at the age of 7. Hemoglobin A1c was 10.8% on 08/09/2020. DKA (diabetic ketoacidoses) multiple <Jim Ellington MD - Last Filed: 10/02/24 19:13> Surgical History Surgical History: Surgical History History of gynecological procedure 04/29/2020- mirena iud insertion - 10/23/2021 mirena iud removal -nm History of 3 sections <Jim Ellington MD - Last Filed: 10/02/24 19:13> Family History Family History: Family History (Updated 10/01/24 @ 14:13 by Ozzy Nelson MA) Grandparent Breast cancer Father Diabetes mellitus Alcoholism Mother Alcoholism Depression Other Hypertension <Jim Ellington MD - Last Filed: 10/02/24 19:13> Social History Social History: Social History Smoking packs per day: 1 Smoking cigarettes per day: 20.0 Years smoked: 20 Smoking pack-years: 20.00 Smoking status: Current every day smoker Second hand tobacco smoke exposure: Yes Alcohol intake: former Drinks per week: 20 Alcohol use details: occasional Substance use: current Substance use type: marijuana Last use: 07/25/24 Do You Feel Safe in your Home?: Yes Lack of Transportation: No Lack of Food: Never True Current Housing: I Have Housing Concerned About Future Housing: No Difficulty Paying Gas/Electric Bills: No Difficulty Paying for Meds: No Currently Unemployed: No Education: Decline to Answer Difficulty w/ Childcare or Family Care: No Living arrangements: with family Occupation/Education: unemployed Additional occupation/education comments: not currently working Gender identity (if verbalized by the patient): Female Sexual Orientation (if Verbalized by the Patient): Straight or Heterosexual Spiritual care concerns: No <Jim Ellington MD - Last Filed: 10/02/24 19:13> Exam 2 Narrative: APPEARANCE: Patient is vomiting loudly during the interview Head: atraumatic. EYES: EOMI, NOSE: Atraumatic NECK: Trachea midline RESPIRATORY: No increased rate of breathing CTAB CARDIOVASCULAR: RRR, no peripheral edema ABDOMINAL: soft, nontender MUSCULOSKELETAl: No obvious deformities NEURO: Alert. Moving 4/4 extremities SKIN:: Warm, dry. Normal color PSYCHIATRIC: Normal affect <Jim Ellington MD - Last Filed: 10/02/24 19:13> Course Reevaluation(s) Reevaluation #1: Patient was signed out to me by the overnight physician. Patient had been treated with 2 L of IV fluids but patient still had an elevated blood sugar and anion gap. Case was discussed with the onyx chip [employer]ra[employer] worker patient was started on insulin bolus and insulin infusion. Patient was admitted to the ICU. Case was also discussed with hospitalist. Patient was updated on the plan for admission and treatment. All questions concerns were addressed. CT scan was also concerning for possible colitis. Patient was started on IV Rocephin and Flagyl. <Franklyn Rm MD - Last Filed: 10/02/24 18:37> Vital Signs Vital signs: Vital Signs Temperature 97.7 F 10/02/24 03:11 Pulse Rate 119 H 10/02/24 03:11 Respiratory Rate 20 10/02/24 03:11 Blood Pressure 164/82 H 10/02/24 03:11 Pulse Oximetry 100 10/02/24 03:11 Oxygen Delivery Room Air 10/02/24 03:11 Temperature 98.2 F 10/02/24 16:00 Pulse Rate 124 H 10/02/24 18:00 Respiratory Rate 24 H 10/02/24 18:00 Blood Pressure 139/93 H 10/02/24 18:00 Pulse Oximetry 98 10/02/24 18:00 Oxygen Delivery Room Air 10/02/24 16:00 <Jim Ellington MD - Last Filed: 10/02/24 19:13> Vital Signs Temperature 97.7 F 10/02/24 03:11 Pulse Rate 119 H 10/02/24 03:11 Respiratory Rate 20 10/02/24 03:11 Blood Pressure 164/82 H 10/02/24 03:11 Pulse Oximetry 100 10/02/24 03:11 Oxygen Delivery Room Air 10/02/24 03:11 Temperature 98.2 F 10/02/24 16:00 Pulse Rate 124 H 10/02/24 18:00 Respiratory Rate 24 H 10/02/24 18:00 Blood Pressure 139/93 H 10/02/24 18:00 Pulse Oximetry 98 10/02/24 18:00 Oxygen Delivery Room Air 10/02/24 16:00 <Franklyn Rm MD - Last Filed: 10/02/24 18:37> Medical Decision Making MDM Narrative Medical decision making narrative: -Course: this is a 39-year-old female with a history of cyclic vomiting and type 1 diabetes presenting with nausea vomiting diarrhea and abdominal pain. Patient tachycardic on arrival. Given antiemetics and fluid resuscitation. Mild metabolic anion gap acidosis. Venous blood gas with pH of 7.34. CT abdomen pelvis is pending. BMP will be repeated after fluid resuscitation. Patient is signed out to the oncoming physician pending imaging, repeat bmp, and po challenge. <Jim Ellington MD - Last Filed: 10/02/24 19:13> Vital Signs Vital Signs: Vital Signs Temperature 97.7 F 10/02/24 03:11 Pulse Rate 119 H 10/02/24 03:11 Respiratory Rate 20 10/02/24 03:11 Blood Pressure 164/82 H 10/02/24 03:11 Pulse Oximetry 100 10/02/24 03:11 Oxygen Delivery Room Air 10/02/24 03:11 Temperature 98.2 F 10/02/24 16:00 Pulse Rate 124 H 10/02/24 18:00 Respiratory Rate 24 H 10/02/24 18:00 Blood Pressure 139/93 H 10/02/24 18:00 Pulse Oximetry 98 10/02/24 18:00 Oxygen Delivery Room Air 10/02/24 16:00 <Jim Ellington MD - Last Filed: 10/02/24 19:13> Vital Signs Temperature 97.7 F 10/02/24 03:11 Pulse Rate 119 H 10/02/24 03:11 Respiratory Rate 20 10/02/24 03:11 Blood Pressure 164/82 H 10/02/24 03:11 Pulse Oximetry 100 10/02/24 03:11 Oxygen Delivery Room Air 10/02/24 03:11 Temperature 98.2 F 10/02/24 16:00 Pulse Rate 124 H 10/02/24 18:00 Respiratory Rate 24 H 10/02/24 18:00 Blood Pressure 139/93 H 10/02/24 18:00 Pulse Oximetry 98 10/02/24 18:00 Oxygen Delivery Room Air 10/02/24 16:00 <Franklyn Rm MD - Last Filed: 10/02/24 18:37> Lab Data Result diagrams: 10/02/24 04:56 10/02/24 16:40 <Jim Ellington MD - Last Filed: 10/02/24 19:13> Labs: Lab Results 10/02/24 10/02/24 10/02/24 Range/Units 03:20 04:55 04:56 WBC 12.1 H (4.5-10.0) K/mm3 RBC 3.89 L (4.2-5.4) M/mm3 Hgb 10.0 L (12.0-15.0) g/dL Hct 31.2 L (37.0-47.0) % MCV 80.2 (80-100) fl MCH 25.7 L (26-34) pg MCHC 32.1 (32-36) g/dl RDW 14.6 H (11.5-14.5) % Plt Count 232 (150-375) k/mm3 MPV 11.2 H (7.4-10.4) fl Immature Gran % (Auto) 0.4 (0-0.5) % Neut % (Auto) 90.0 H (45.5-73.1) % Lymph % (Auto) 6.6 L (18.3-44.2) % [place] % (Auto) 2.7 (2.6-8.5) % Eos % (Auto) 0.0 (0-4.4) % Baso % (Auto) 0.3 (0.2-1.2) % Lymph # (Auto) 0.80 L (0.9-3.2) K/mm3 [place] # (Auto) 0.3 (0.1-0.6) K/mm3 Eos # (Auto) 0.0 (0-0.3) K/mm3 Baso # (Auto) 0.0 (0.0-0.1) K/mm3 Abs Immat Gran (auto) 0.05 H (0.00-0.031) K/mm3 Absolute Neuts (auto) 10.9 H (1.3-6.7) K/mm3 Absolute Nucleated RBC 0.000 (0.0-0.012) K/mm3 Nucleated RBC % 0.0 (0.0-0.2) % Sodium 138 (137-145) mmol/L Potassium 4.4 (3.4-5.0) mmol/L Chloride 102 (98-107) mmol/L Carbon Dioxide 12 L (22-30) mmol/L Anion Gap 24 H (4-12) mmol/L BUN 17 (7-17) mg/dL Creatinine 0.65 L (0.7-1.0) mg/dL Estim Creat Clear Calc 88 ml/min Estimated GFR > 60 (59 - ) Glucose 421 H (65-110) mg/dL POC Capillary Glucose 391 H (65-105) mg/dl Calcium 9.6 (8.4-10.2) mg/dL Total Bilirubin 1.2 (0.2-1.3) mg/dL AST 25 (14-36) U/L ALT 23 (6-35) U/L Alkaline Phosphatase 65 (38-126) U/L Total Protein 7.0 (6.3-8.2) g/dL Albumin 3.9 (3.5-5.1) g/dL Lipase 41 (23-300) U/L Serum HCG, Qual Negative Urine Opiates Screen (Negative) Urine Methadone Screen (Negative) Ur Barbiturates Screen (Negative) Ur Phencyclidine Scrn (Negative) Ur Amphetamine Screen (Negative) U Benzodiazepines Scrn (Negative) Urine Cocaine Screen (Negative) U Cannabinoids Screen (Negative) Influenza A (RT-PCR) Negative (Negative) Influenza B (RT-PCR) Negative (Negative) RSV (RT-PCR) Negative (Negative) SARS-CoV-2 RNA (RT-PCR) Negative (Negative) 10/02/24 10/02/24 10/02/24 Range/Units 06:59 07:45 07:46 WBC (4.5-10.0) K/mm3 RBC (4.2-5.4) M/mm3 Hgb (12.0-15.0) g/dL Hct (37.0-47.0) % MCV (80-100) fl MCH (26-34) pg MCHC (32-36) g/dl RDW (11.5-14.5) % Plt Count (150-375) k/mm3 MPV (7.4-10.4) fl Immature Gran % (Auto) (0-0.5) % Neut % (Auto) (45.5-73.1) % Lymph % (Auto) (18.3-44.2) % [place] % (Auto) (2.6-8.5) % Eos % (Auto) (0-4.4) % Baso % (Auto) (0.2-1.2) % Lymph # (Auto) (0.9-3.2) K/mm3 [place] # (Auto) (0.1-0.6) K/mm3 Eos # (Auto) (0-0.3) K/mm3 Baso # (Auto) (0.0-0.1) K/mm3 Abs Immat Gran (auto) (0.00-0.031) K/mm3 Absolute Neuts (auto) (1.3-6.7) K/mm3 Absolute Nucleated RBC (0.0-0.012) K/mm3 Nucleated RBC % (0.0-0.2) % Sodium 141 (137-145) mmol/L Potassium 4.2 (3.4-5.0) mmol/L Chloride 109 H (98-107) mmol/L Carbon Dioxide 9 L (22-30) mmol/L Anion Gap 23 H (4-12) mmol/L BUN 16 (7-17) mg/dL Creatinine 0.62 L (0.7-1.0) mg/dL Estim Creat Clear Calc 91 ml/min Estimated GFR > 60 (59 - ) Glucose 399 H (65-110) mg/dL POC Capillary Glucose 463 H (65-105) mg/dl Calcium 9.0 (8.4-10.2) mg/dL Total Bilirubin (0.2-1.3) mg/dL AST (14-36) U/L ALT (6-35) U/L Alkaline Phosphatase (38-126) U/L Total Protein (6.3-8.2) g/dL Albumin (3.5-5.1) g/dL Lipase (23-300) U/L Serum HCG, Qual Urine Opiates Screen Negative (Negative) Urine Methadone Screen Negative (Negative) Ur Barbiturates Screen Negative (Negative) Ur Phencyclidine Scrn Negative (Negative) Ur Amphetamine Screen Negative (Negative) U Benzodiazepines Scrn Negative (Negative) Urine Cocaine Screen Negative (Negative) U Cannabinoids Screen Positive A (Negative) Influenza A (RT-PCR) (Negative) Influenza B (RT-PCR) (Negative) RSV (RT-PCR) (Negative) SARS-CoV-2 RNA (RT-PCR) (Negative) <Jim Ellington MD - Last Filed: 10/02/24 19:13> Lab Results 10/02/24 10/02/24 10/02/24 Range/Units 03:20 04:55 04:56 WBC 12.1 H (4.5-10.0) K/mm3 RBC 3.89 L (4.2-5.4) M/mm3 Hgb 10.0 L (12.0-15.0) g/dL Hct 31.2 L (37.0-47.0) % MCV 80.2 (80-100) fl MCH 25.7 L (26-34) pg MCHC 32.1 (32-36) g/dl RDW 14.6 H (11.5-14.5) % Plt Count 232 (150-375) k/mm3 MPV 11.2 H (7.4-10.4) fl Immature Gran % (Auto) 0.4 (0-0.5) % Neut % (Auto) 90.0 H (45.5-73.1) % Lymph % (Auto) 6.6 L (18.3-44.2) % [place] % (Auto) 2.7 (2.6-8.5) % Eos % (Auto) 0.0 (0-4.4) % Baso % (Auto) 0.3 (0.2-1.2) % Lymph # (Auto) 0.80 L (0.9-3.2) K/mm3 [place] # (Auto) 0.3 (0.1-0.6) K/mm3 Eos # (Auto) 0.0 (0-0.3) K/mm3 Baso # (Auto) 0.0 (0.0-0.1) K/mm3 Abs Immat Gran (auto) 0.05 H (0.00-0.031) K/mm3 Absolute Neuts (auto) 10.9 H (1.3-6.7) K/mm3 Absolute Nucleated RBC 0.000 (0.0-0.012) K/mm3 Nucleated RBC % 0.0 (0.0-0.2) % Sodium 138 (137-145) mmol/L Potassium 4.4 (3.4-5.0) mmol/L Chloride 102 (98-107) mmol/L Carbon Dioxide 12 L (22-30) mmol/L Anion Gap 24 H (4-12) mmol/L BUN 17 (7-17) mg/dL Creatinine 0.65 L (0.7-1.0) mg/dL Estim Creat Clear Calc 88 ml/min Estimated GFR > 60 (59 - ) Glucose 421 H (65-110) mg/dL POC Capillary Glucose 391 H (65-105) mg/dl Calcium 9.6 (8.4-10.2) mg/dL Total Bilirubin 1.2 (0.2-1.3) mg/dL AST 25 (14-36) U/L ALT 23 (6-35) U/L Alkaline Phosphatase 65 (38-126) U/L Total Protein 7.0 (6.3-8.2) g/dL Albumin 3.9 (3.5-5.1) g/dL Lipase 41 (23-300) U/L Serum HCG, Qual Negative Urine Opiates Screen (Negative) Urine Methadone Screen (Negative) Ur Barbiturates Screen (Negative) Ur Phencyclidine Scrn (Negative) Ur Amphetamine Screen (Negative) U Benzodiazepines Scrn (Negative) Urine Cocaine Screen (Negative) U Cannabinoids Screen (Negative) Influenza A (RT-PCR) Negative (Negative) Influenza B (RT-PCR) Negative (Negative) RSV (RT-PCR) Negative (Negative) SARS-CoV-2 RNA (RT-PCR) Negative (Negative) 10/02/24 10/02/24 10/02/24 Range/Units 06:59 07:45 07:46 WBC (4.5-10.0) K/mm3 RBC (4.2-5.4) M/mm3 Hgb (12.0-15.0) g/dL Hct (37.0-47.0) % MCV (80-100) fl MCH (26-34) pg MCHC (32-36) g/dl RDW (11.5-14.5) % Plt Count (150-375) k/mm3 MPV (7.4-10.4) fl Immature Gran % (Auto) (0-0.5) % Neut % (Auto) (45.5-73.1) % Lymph % (Auto) (18.3-44.2) % [place] % (Auto) (2.6-8.5) % Eos % (Auto) (0-4.4) % Baso % (Auto) (0.2-1.2) % Lymph # (Auto) (0.9-3.2) K/mm3 [place] # (Auto) (0.1-0.6) K/mm3 Eos # (Auto) (0-0.3) K/mm3 Baso # (Auto) (0.0-0.1) K/mm3 Abs Immat Gran (auto) (0.00-0.031) K/mm3 Absolute Neuts (auto) (1.3-6.7) K/mm3 Absolute Nucleated RBC (0.0-0.012) K/mm3 Nucleated RBC % (0.0-0.2) % Sodium 141 (137-145) mmol/L Potassium 4.2 (3.4-5.0) mmol/L Chloride 109 H (98-107) mmol/L Carbon Dioxide 9 L (22-30) mmol/L Anion Gap 23 H (4-12) mmol/L BUN 16 (7-17) mg/dL Creatinine 0.62 L (0.7-1.0) mg/dL Estim Creat Clear Calc 91 ml/min Estimated GFR > 60 (59 - ) Glucose 399 H (65-110) mg/dL POC Capillary Glucose 463 H (65-105) mg/dl Calcium 9.0 (8.4-10.2) mg/dL Total Bilirubin (0.2-1.3) mg/dL AST (14-36) U/L ALT (6-35) U/L Alkaline Phosphatase (38-126) U/L Total Protein (6.3-8.2) g/dL Albumin (3.5-5.1) g/dL Lipase (23-300) U/L Serum HCG, Qual Urine Opiates Screen Negative (Negative) Urine Methadone Screen Negative (Negative) Ur Barbiturates Screen Negative (Negative) Ur Phencyclidine Scrn Negative (Negative) Ur Amphetamine Screen Negative (Negative) U Benzodiazepines Scrn Negative (Negative) Urine Cocaine Screen Negative (Negative) U Cannabinoids Screen Positive A (Negative) Influenza A (RT-PCR) (Negative) Influenza B (RT-PCR) (Negative) RSV (RT-PCR) (Negative) SARS-CoV-2 RNA (RT-PCR) (Negative) <Franklyn Rm MD - Last Filed: 10/02/24 18:37> ABG Data ABG results: 10/02/24 05:59 VBG pH 7.345 VBG pCO2 21.1 L* VBG pO2 170.5 H VBG HCO3 11.3 L O2 Delivery Device Room air O2 Liters/Min 0.0 FiO2 21 <Jim Ellington MD - Last Filed: 10/02/24 19:13> 10/02/24 05:59 VBG pH 7.345 VBG pCO2 21.1 L* VBG pO2 170.5 H VBG HCO3 11.3 L O2 Delivery Device Room air O2 Liters/Min 0.0 FiO2 21 <Franklyn Rm MD - Last Filed: 10/02/24 18:37> Critical Care Time Critical Care Time Critical Care Time: Yes <Franklyn Rm MD - Last Filed: 10/02/24 18:37> Total Critical Care Time: 35 <Franklyn Rm MD - Last Filed: 10/02/24 18:37> Discharge Plan Discharge Clinical Impression: DKA (diabetic ketoacidosis), Colitis <Jim Ellington MD - Last Filed: 10/02/24 19:13> Patient Disposition: Still a Patient <Jim Ellington MD - Last Filed: 10/02/24 19:13> Condition: Serious <Jim Ellington MD - Last Filed: 10/02/24 19:13>
[2024-10-02 05:39] LABS: Influenza A QL RT-PCR Negative (Negative); Influenza B QL RT-PCR Negative (Negative); RSV RNA, RT-PCR Negative (Negative); SARS-CoV-2 RNA PCR Negative (Negative)
[2024-10-02 06:05] LABS: Fractional Inspired Oxygen 21 %; HCO3 VBG 11.3 mEq/l (24.0-30.0); PO2 VBG 170.5 mmHg (35.0-45.0); pH VBG 7.345 (7.300-7.400)
[2024-10-02 06:07] LABS: Device ROOM AIR; PCO2 VBG 21.1 mmHg (42.0-48.0)
[2024-10-02 07:06] LABS: SPREG INTERNAL CONTROL Positive; Serum Qual hCG Negative
[2024-10-02 07:26] LABS: Anion Gap 23 mmol/L (4-12); Blood Urea Nitrogen 16 mg/dL (7-17); Carbon Dioxide 9 mmol/L (22-30); Chloride 109 mmol/L (98-107); Estimated CRCL calculation 91 ml/min; Estimated Glomerular Filt Rate > 60; Glucose 399 mg/dL (65-110); Potassium 4.2 mmol/L (3.4-5.0); Sodium 141 mmol/L (137-145)
--- NOTE | 2024-10-02 07:32 | PC.NURSE ---
Assumed care of pt. Pt to CT
[2024-10-02 07:47] LABS: Glucose Point of Care 463 mg/dl (65-105)
--- NOTE | 2024-10-02 07:53 | PC.NURSE ---
Pt assisted up to BSC, urine sample collected. Pt tolerated well
[2024-10-02 08:21] LABS: Amphetamine Screen Urine Negative (Negative); Barbiturate Screen Urine Negative (Negative); Benzodiazepines Screen Urine Negative (Negative); Cannabinoid Screen Urine Positive (Negative); Cocaine Screen Urine Negative (Negative); Methadone Screen Urine Negative (Negative); Opiate Screen Urine Negative (Negative); Phencyclidine Screen Urine Negative (Negative)
[2024-10-02] MEDS: LACTATED RINGERS 1,000 ML 999 ML IV CONT ×3 (08:25→18:22)
[2024-10-02] MEDS: METOCLOPRAMIDE HCL INJ 10 MG/2 ML VIAL IV PUSH ×4 (08:26→23:06)
[2024-10-02] MEDS: INSULIN HUMAN REGULAR (*BKC) 100 UNITS in SODIUM CHLORIDE 0.9% IV 99 ML 6.5 UNITS IV CONT (08:28)
[2024-10-02] MEDS: INSULIN HUMAN REGULAR (*BKC) 100 UNITS/ML 6.8 UNITS IV PUSH (08:29)
--- NOTE | 2024-10-02 08:38 | PC.NURSE ---
Dr. Rm in to see pt. Informed pt plan is to be admitted. Pt repeats several times I just don't feel good . Reviewed POC with pt. Pt reported to RN that her Insulin pump came out @ 0100 and she did not replace it.
--- NOTE | 2024-10-02 08:39 | PC.NURSE ---
Staff having difficulty in obtaining blood cultures. Paige NESBITT obtained per US
[2024-10-02 09:14] LABS: Hemoglobin A1C 8.2 % (<5.7)
--- NOTE | 2024-10-02 09:14 | PC.NURSE ---
Pt states is only on 1 type of insulin and doesn't know name. Assessment unchanged
[2024-10-02 09:28] LABS: Glucose Point of Care 362 mg/dl (65-105)
[2024-10-02 09:28] LABS: Blood Urea Nitrogen 19 mg/dL (7-17); Calcium 9.5 mg/dL (8.4-10.2); Carbon Dioxide < 5 mmol/L (22-30); Chloride 105 mmol/L (98-107); Estimated CRCL calculation 72 ml/min; Estimated Glomerular Filt Rate > 60; Glucose 507 mg/dL (65-110); Magnesium 1.2 mg/dL (1.6-2.3); Phosphorus 6.1 mg/dL (2.5-4.5); Potassium 4.6 mmol/L (3.4-5.0); Sodium 140 mmol/L (137-145)
--- NOTE | 2024-10-02 09:42 | ADMIMU ---
This patient, Tara Hinkle, was admitted and placed in Intensive Care Unit-5 @ 0942. Patient/family oriented to hospital policies and general routines including ID bracelet, bed and alarms, visiting hours, pain management, procedures, bathroom and other care routines, personal items, smoking policy, room service/diet, and visiting hours. Valuables list has been completed. Information on how to activate the Rapid Response Team has been discussed. Patient/Family are encouraged to report perceived risks to care and to ask questions if they do not understand what they are told or what they should do.
--- OUTSIDE RECORDS SUMMARY | 2024-10-02 09:45 | XMS_ITS | Continuity of Care Document ---
Author Organization [email or web address] Address [address] [place] [address] Phone Care Team Providers Care Eligibility Examiner Name Role Phone Conversion MD, Doctor Unavailable [...] Longer Active NAPROXEN 500MG TABS 1 BID - No Longer Active TESSALON PERLE 100MG CAPS 1 TID - No Longer Active AMOXICILLIN 500MG CAPS 1 TID - No Longer Active HUMULIN R 100U/ML U 10 QAM - No Longer Active HUMULIN R 100U/ML U 7 QPM - No Longer Active HUMULIN N 100U/ML U 20 QPM - No Longer Active HUMULIN N 100U/ML U 21 QAM - No Longer Active Advance Directives Directive Yes / No Effective Date File Name No Information Encounters Encounter Description Practice Location Reason(s) For Visit Diagnoses Date Provider Providers Copied on Encounter [facility], [address], [place], [place], [address], tel:[phone] Conversion Department No Information 6201 1 Conversion Doctor. Replaced by [facility] [place], [address], [place]. [facility], [address], [place], [place], [address], tel:[phone] [facility] ACUTE URI NOS 5200 8 Conversion Doctor. [address] [place] [address], [address], . [facility], [address], [place], [place], [address], tel:[phone] [facility] CARBUNCLE OF TRUNK 2200 7 Chuy Adamson. [address] [facility], 4th Floor, [place], [place], [address], [place]. tel:[phone] [facility], [address], [place], [place], [address], [place] tel:[phone] [facility] HAIR DISEASES NEC 4-[address], [address], [place], [place], [address], [place]. tel:[phone] [facility], [address], [place], [place], [address], [place] tel:[phone] [facility] DMI WO CMP NT ST UNCNTRL 4-200 7 Conversion Doctor. [address] [place] [address], [address], [place]. [facility], [address], [place], [place], [address], tel:[phone] [facility] URIN TRACT INFECTION NOS 8-[address] 6 [address], [place], [place], [address], . tel:[phone] [facility], [address], [place], [place], [address], tel:[phone] [facility] OTALGIA NOS 2200 6 Michael Khan. [address], [address], [place], [place], [address], . tel:[phone] [facility], [address], [place], [place], [address], tel:[phone] [facility] MGRN WO AURA WO NTRC MGR Nov-2 2-200 5 Michael Khan. [address], [address], [place], [place], [address], . tel:[phone] [facility], [address], [place], [place], [address], tel:[phone] [facility] No Information 2200 5 Michael Khan. [address], [place], [place], [address], [place]. tel:[phone] [facility], [address], [place], [place], [address], [place] tel:[phone] [facility] PREG STATE, INCIDENTAL 7200 3 [facility]. [address] [facility], [facility] [address], [place], [place], [address], . tel:[phone] [facility], [address], [place], [place], [address], [place] tel:[phone] [facility] ALLERGIC RHINITIS NOS 2 6200 1 Leonarda Leonard. [address], [address], [place], [place], [address], . tel:[phone] Family History Family Member Type Diagnosis Age At Onset No Information Immunizations Vaccine Date Status Comments 75679 - TD administered Source: Source Unspecified 08420 - Influenza administered Source: So urce Unspecified 31749 - Influenza administered Source: So urce Unspecified 84029 - Influenza administered Source: So urce Unspecified 78792 - Influenza administered Source: So urce Unspecified 62693 - Hepatitis_B administered Source: Source Unspecified 51579 - Hepatitis_B administered Source: Source Unspecified 00162 - Hepatitis_B administered Source: Source Unspecified 75921 - DTaP_DTP_DT_PEDS administered Kiana rce: Source Unspecified 57529 - Polio_OPV_IPV administered Source : Source Unspecified 67373 - MMR administered Source: Source Unspecified 42925 - Polio_OPV_IPV administered Source : Source Unspecified 18852 - DTaP_DTP_DT_PEDS administered Kiana rce: Source Unspecified 60696 - Hib administered Source: Source Unspecified 32286 - DTaP_DTP_DT_PEDS administered Kiana rce: Source Unspecified 11551 - MMR administered Source: Source Unspecified 75944 - DTaP_DTP_DT_PEDS administered Kiana rce: Source Unspecified 24687 - Polio_OPV_IPV administered Source : Source Unspecified 57387 - DTaP_DTP_DT_PEDS administered Kiana rce: Source Unspecified 19061 - Polio_OPV_IPV administered Source : Source Unspecified [...]
--- OUTSIDE RECORDS SUMMARY | 2024-10-02 09:45 | XMS_ITS | Encounter Summary ---
Author Organization [facility] Address [facility] [place] [address] Care Team Providers Care Environmental Communications Specialist Name Role Phone Clinic, [facility] Ob/Med Primary Care Provider [phone] Sidney Vicente MD Primary Care Provider + [facility], [facility] Ob/Med Primary Care Provider [phone] Sidney Vicente MD Primary Care Provider + [facility], [facility] Ob/Med Primary Care Provider Sidney Vicente MD Primary Care Provider + Sharri Alonso MD Primary Care Provider Clinic, [facility] Ob/Med Primary Care Provider [phone] [facility], [facility] Ob/Med Primary Care Provider [phone] Encounter Details Date Type Department Care Team (Late st Contact Info) Description 05/03/2010 Telephone [facility] [address] [place] [address] Liz Ramey MD [address] [address] Social History Tobacco Use Types [...] on filedocumented in this encounter Care Teams Environmental Communications Specialist Relationship Specialty Start Date End Date [facility], [facility] Ob/Med [address] [place] [address] PCP - General 04/17/10 05/13/10 Sidney Vicente MD [address] [place], [place] [address] PCP - General 05/14/10 05/15/10 [facility] Ob/Med [address] [place] [address] PCP - General 05/16/10 05/16/10 Sidney Vicente MD [address], [address] [place], [place] [address] PCP - General 05/17/10 05/17/10 [facility], [facility] Ob/Med [address] [place] [address] PCP - General 05/18/10 06/13/10 Sidney Vicente MD [address] [place] [address] PCP - General 06/14/10 09/21/10 Sharri Alonso MD [address] [phone] PCP - General 09/22/10 11/09/10 [facility], [facility] Ob/Med [address] [place] [address] PCP - General 11/10/10 11/13/10 [facility], [facility]Med [address] [place] [address] PCP - General 11/14/10 11/15/10 documented as of this encounter
--- OUTSIDE RECORDS SUMMARY | 2024-10-02 09:46 | XMS_ITS | Continuity of Care Document ---
Author Organization [facility] Address [address] [place] [address] [place] [address] Phone Care Team Providers Care Trimmer Helper Name Role Phone Kris Faith MD Unavailable Unavailable Procedures Procedure Date Eye Exam & Treatment Advance Directives Directive Yes / No Effective Date File Name No Information Encounters Encounter Description Practice Location Reason(s) For Visit Diagnoses Date Provider Providers Copied on Encounter [facility], [address], [place], [place], [address], [place] tel:[phone] SEC Zeus Waters No Information 9200 7 Marcell Ponce. [address] [facility] [address], [place], [place], [address], [place]. tel:[phone] Family History Family Member Type Diagnosis Age At Onset No Information Payers Payer name Insurance type Covered green party ID Authoriza ticullen(s) [facility] CI [id number] Social History Type Description Quantity Date Captured [...]
--- OUTSIDE RECORDS SUMMARY | 2024-10-02 09:46 | XMS_ITS | Clinical Summary ---
Author Organization [facility] Address [address], [address] [address] Phone Care Team Providers Care Hog Dropper Name Role Phone Unavailable Primary Care Provider [...] Comments Blood Pressure 118/74 07/01/2017 1:18 PM CONTRACT WRITER Pulse 77 07/01/2017 1:18 PM CONTRACT WRITER Temperature 36.2 C (97.2 F) 07/11/2016 9:24 AM CONTRACT WRITER Respiratory Rate 18 07/01/2017 1:18 PM CONTRACT WRITER Oxygen Saturation 97% 07/01/2017 1:18 PM CONTRACT WRITER Inhaled Oxygen Concentration - - Weight 70.3 kg (155 lb) 07/01/2017 1:18 PM CONTRACT WRITER Height 162.6 cm (5' 4 ) 07/01/2017 1:18 PM CONTRACT WRITER Body Mass Index 26.61 07/01/2017 1:18 PM CONTRACT WRITER Plan of Treatment Health Maintenance Due Date [...]
--- OUTSIDE RECORDS SUMMARY | 2024-10-02 09:46 | XMS_ITS | Patient Health Summary ---
Author Organization [facility] Address [facility] [place] [address] Care Team Providers Care Wheel Alignment Mechanic Name Role Phone Unavailable Primary Care Provider Laurent e Note from [facility],non-owned Affiliates and Associated Physician Practices is amultiple site organization consisting of ambulatory clinics and hospital sitesin [place], [place], [place] and [place]. This disclosure is being madepursuant to the Care Everywhere program and may not contain all information available regarding this patient. Last updated 18.[facility] Allergies No known active allergies Medications * [...] antepartum condition or complication 10/06/2009 Need for iqalqfw-qiexb-ksevrkq (MMR) vaccine 06/2010 Diabetes mellitus type 1 [...] PM CDT) RPR Non-Reacti ve Non Reactive [facility] BLOOD SPECIMEN / Unknown 11/10/2010 4:35 PM CDT 11/10/2010 4:45 PM CDT Ladonna Vasques MD LAB - CHEMIS TRY ORDERABLES Performing Organization Address City/[facility] Co de Phone Number [facility] [address] [place] [address] * HIV-1 HIV-2 ANTIBODY (11/10/2010 4:35 PM CDT) Only the most recent of2 resultswithin the time period is included. Pathologist [facility] HIV-1/HIV-[address] [facility] BLOOD SPECIMEN / Unknown 11/10/2010 4:35 PM CDT 11/10/2010 4:45 PM CDT Ladonna Vasques MD LAB - CHEMIS TRY ORDERABLES Performing Organization Address City/[facility] Co de Phone Number [facility] [address] [place] [address] * HEPATITIS B SURFACE ANTIGEN (11/10/2010 4:35 PM CDT) Pathologist [facility] Hepatitis B Virus Surface Antigen Nonreactive Nonreactive [facility] BLOOD SPECIMEN / Unknown 11/10/2010 4:35 PM CDT 11/10/2010 4:45 PM CDT Ladonna Vasques MD LAB - CHEMIS TRY ORDERABLES Performing Organization Address [facility] Co de Phone Number [facility] [address] [place] [address] * HEPATITIS C ANTIBODY (11/10/2010 4:35 PM CDT) Hepatitis C Antibody Screen Nonreactive Nonreactive [facility] BLOOD SPECIMEN / Unknown 11/10/2010 4:35 PM CDT 11/10/2010 4:45 PM CDT Ladonna Vasques MD LAB - CHEMIS TRY ORDERABLES Performing Organization Address [facility] de Phone Number [facility] [address] [place] [address] * CYTOLOGY CERVICAL/VAG SCREEN THIN PREP (11/10/2010 4:30 PM CDT) Only the most recent of2 resultswithin the time period is included. Comment Thin Prep [facility] Pap Smear Report See Scanned Report [facility] ENTIRE ENDOCERVIX / Unknown 11/10/2010 4:30 PM CDT 11/10/2010 4:45 PM CDT Narrative Resulting Agency Comment Performed By [facility]() [address] [place] [address] Ladonna Vasques MD LAB - PATHOL OGY/CYTOLOGY ORDERABLES Performing Organization Address City/[facility] Co de Phone Number [facility] [address] [place] [address] * CHLAMYDIA + GC DNA PROBE AMPLIFIED (11/10/2010 4:30 PM CDT) Only the most recent of3 resultswithin the time period is included. Chlamydia trachomatis Amplified Probe Neg [facility] GC Amplified Probe Neg [facility] Comment Amplified Probe [facility] Comment: Comments and Normal Ranges for Component DNA Probe comment Results based on detection/no detection of ribosomal RNA by amplified method. ENTIRE ENDOCERVIX / Unknown 11/10/2010 4:30 PM CDT 11/10/2010 4:46 PM CDT Narrative Resulting Agency Comment Performed By [address] [place] [address] Ladonna Vasques MD LAB - MICROB IOLOGY ORDERABLES Performing Organization Address City/[facility]/ZIP Co de Phone Number [facility] [address] [place] [address] * HCG URINE QUALITATIVE - POINT OF CARE (07/10/2010 9:18 AM CREDIT RISK ANALYST) Only the most recent of2 resultswithin the time period is included. HCG Qual Urine neg Negative [facility] POCT TESTING QC Verified yes Yes [facility] POC T TESTING Urine specimen (specimen) URINE / Unknown 07/10/2010 9:18 AM CREDIT RISK ANALYST Paige Torres MD LAB - POINT OF CARE ORDERABLES Performing Organization Address [facility] Co de Phone Number [facility] [place] [address] * IMAGING/RADIOLOGY/XRAY RESULTS ORDER (05/17/2010 2:19 PM [...] Glucose WB/POC 218(H) 70 - 110 mg/dl [facility] BLOOD SPECIMEN / Unknown 05/16/2010 12:22 PM CDT 05/16/2010 12:56 PM CDT Jordin Hartman MD LAB - POINT OF CARE ORDERABLES Performing Organization Address [facility]/ZIP Co de Phone Number [facility] [address] [place] [address] * (ABNORMAL) CBC W AUTO DIFFERENTIAL (05/14/2010 4:30 AM CDT) Only the most recent of4 resultswithin the time period is included. WBC 11.5(H) 4.0 - 10.0 K/CUMM [facility] RBC 3.93 3.80 - 5.80 M/CUMM [facility] Hemoglobin 10.8(L) 12.0 - 16.0 gm/dl [facility] Hematocrit 31.0(L) 37.0 - 47.0 % [facility] MCV 78.9(L) 80.0 - 100.[address] [facility] MCH 27.5 26.0 - 34.[address] [facility] MCHC 34.8 31.0 - 37.0 gm/dl [facility] Platelet Count 175 150 - 400 K/CUMM [facility] RDW 13.0 11.5 - 14.5 % [facility] Granulocytes % 74.2(DH) 50 - 70 % [facility] Lymphocytes % 14.4(DL) 20 - 40 % [facility] Monocytes % 8.9(DE) 0 - 12 % [facility] Eosinophils % 1.9 0 - 5 % [facility] Basophils % 0.2 0 - 2 % [facility] Granulocytes Absolute 8.56(H) 2.00 - 7.00 x1000/cmm [facility] Lymphocytes Absolute 1.66 0.80 - 4.00 x1000/cmm [facility] Monocytes Absolute 1.03 0.00 - 1.20 x1000/cmm [facility] Eosinophils Absolute 0.22 0.00 - 0.50 x1000/cmm [facility] Basophils Absolute 0.02 0.00 - 0.20 x1000/cmm [facility] BLOOD SPECIMEN / Unknown 05/14/2010 4:30 AM CDT 05/14/2010 5:01 AM CDT Ellen Bautista MD LAB - HEMATOLOGY OR DERABLES [facility] [address] [place] [address] * GROSS + MICRO EXAM (05/12/2010 4:00 [...] cm. The surface is covered by unremarkable, ahbu-azglbq-szbqix, slightly cloudy membranes. The maternal surface shows well- formed cotyledons and superficially adherent blood clot. Serial sectioning reveals an unremarkable, spongy, purple placental parenchyma. Middle [employer] Coach sections of the specimen are submitted as [...] cord -- Mild acute chorioamnionitis LS/na GM Rehabilitation Services Manager na Pathologist Sita Dailey MD [employer]. 05/15/2010 1332 <1> CPT code 29223 MISCELLANEOUS SAMPLES / Unknown 05/12/2010 4:00 PM [...] Panic Value(s) Read Back By DYLAN Leary [facility] CORD BLOOD SPECIMEN / Unknown 05/12/2010 4:00 PM CDT 05/12/2010 5:42 PM CDT Ellen Bautista MD LAB - BLOOD GASES O PAGE Performing Organization Address [facility] Co de Phone Number [facility] [address] [place] [address] * (ABNORMAL) BLOOD GASES CORD ARTERIAL (05/12/2010 3:45 PM CDT) pH Cord Arterial 7.141(L) 7.16 - 7.30 [facility] pO2 Cord Arterial range 12 - [address] [facility] HCO3 Cord Arterial 29. mmol/L [facility] Base Excess Cord Arterial -2.7 -2.0 - 2.0 [facility] Panic Value(s) Read Back By [id number] [facility] CORD BLOOD SPECIMEN / Unknown 05/12/2010 3:45 PM CDT 05/12/2010 5:[address] [facility] - 05/12/2010 5:40 PM CDT rct Ellen Bauitsta MD LAB - BLOOD GASES O PAGE Performing Organization Address [facility] Co de Phone Number [facility] [address] [place] [address] * GLUCOSE PROTEIN KETONE URINE - POINT [...] POINT OF CARE ORDERABLES Performing Organization Address City/[facility]/ZIP Co de Phone Number [facility] [place] [address] * TYPE + SCREEN PANEL (05/12/2010 8:13 AM CDT) Only the most recent of2 resultswithin the time period is included. ABO Rh B Pos SEE BELOW [facility] Comment: Weak D testing is not performed at [facility] Antibody Screen Neg [facility] Previous History Check Done Historical blood type on record, type verification complete. [facility] BLOOD SPECIMEN / Unknown 05/12/2010 8:13 AM CDT 05/12/2010 9:27 AM CDT Ellen Bautista MD LAB - BLOOD BANK OR DERABLES Performing Organization Address [facility] Co de Phone Number [facility] [address] [place] [address] * BIOPHYSICAL PROFILE W NST (05/10/2010) Anatomical Region Laterality Modality Other Liz Ramey MD [facility] ORDERABLES * LS RATIO FLUID (05/02/2010 10:30 AM CDT) L/S Ratio 2.[address] [facility] Comment: Immature <=1.5 Transitional 1.6-1.9 Mature >=2.0 Color Fl[address] Pale Yellow [facility] Character Amnio Slightly Hazy [facility] Gestational Age 37w4d [facility] Volume Amnio [address] [facility] Interpretation L/S Ratio [facility] Comment: PLEASE NOTE - L/S Ratio [...] - BODY FLUID ORDERABLES Performing Organization Address [facility] Co de Phone Number [facility] [address] [place] [address] * LUNG MATURITY (05/02/2010 10:30 AM CDT) FLM 38.5 SEE BELOW mg/g [facility] Comment: See Interpretation for Normals Color Fluid Pale Yellow [facility] Character Amnio Slightly Hazy [facility] Gestational Age 37w4d [facility] Volume Amnio 10 ml [facility] Interpretation [facility] Comment: FLM Immature ......... <= 39 mg/g Mature ......... >= 55 mg/g Results between 40 and 54 cannot be declared mature or immature and should be evaluated with caution. AMNIOTIC FLUID SPECIMEN / Unknown 05/02/2010 10:30 AM CDT 05/02/2010 11:20 AM CDT Sidney Vicente MD LAB - BODY FLUID ORDERABLES Performing Organization Address [facility] de Phone Number [facility] [address] [place] [address] * AMNIOCENTESIS W US GUIDANCE- MATURITY (05/02/2010) Anatomical Region Laterality Modality Other Hamidapablito Hernándezbradley HOYT [facility] ORDERABLES * (ABNORMAL) BASIC METABOLIC PANEL [...] eGFR by MDRD 129 >60 mL/min/1.[address] [facility] Comment eGFR [facility] Comment: The eGFR does not apply to patients who are younger than 18 or older than 70. BLOOD SPECIMEN / Unknown 04/27/2010 5:33 AM CDT 04/27/2010 5:35 AM CDT Maria C Donahue MD LAB - CHEMISTRY ORDChas [facility] Performing Organization Address [facility] Co de Phone Number [facility] [address] [place] [address] * SONOGRAM - COMPLETE (04/27/2010) Only the most recent of3 resultswithin the time period is included. Anatomical Region Laterality Modality Other Sidney Vicente MD [facility] ORDERABLES * (ABNORMAL) HEMOGLOBIN A1C (04/24/2010 12:15 PM CDT) Only the most recent of4 resultswithin the time period is included. Hemoglobin A1c 7.4(H) 3.9 - 6.1 % [facility] Estimated Average Glucose 165.7 mg/dl [facility] BLOOD SPECIMEN / Unknown 04/24/2010 12:15 PM CDT 04/24/2010 2:32 PM CDT Yanira Chow DO LAB - CHEMISTRY ORDChas HUFF Performing Organization Address [facility] Co de Phone Number [facility] [address] [place] [address] * CULTURE STREP B (04/17/2010 1:20 PM CDT) Only the most recent of2 resultswithin the time period is included. Report [facility] Comment: Final - CULTURE BETA HEMOLYTIC STREP GROUP B Heavy growth If treatment is indicated, the organism can be expected to be susceptible to penicillins, cephalosporins and macrolides. Bacteremia/serious infection may require the addition of an aminoglycoside faxed to [phone] 04/19/10 MISCELLANEOUS SAMPLES / Unknown 04/17/2010 1:20 PM CDT 04/17/2010 2:[address] [facility] - 04/19/2010 8:54 AM CDT kevin 04/17 Yanira Chow DO LAB - MICROBIOLOGY O RDERABLES [facility] [address] [place] [address] * ECHO CONSULT - (03/27/2010 10:05 AM CDT) 03/27/2010 10:0 5 AM CDT Narrative [facility] - 03/27/2010 11:48 AM CDT , Echocardiogram 2D, M-mode, and Doppler Name: TARA HINKLE MR #: [id number] Study date: 03/27/2010 Age: : 1985 Gender: Female Ht: / Wt: / BSA: HR: BP: / age: TORSTEN: Maternal age: REFERRING PHYSICIAN: Sidney Vicente MD WATER VALVE MECHANIC: Delia Jerez MD PEDIATRIC ECHO FRONT END WEB DEVELOPER: CECIL Anthony Allergies: NKA History: , due to diabetes. Procedure: The procedure was performed in the echo lab. rhythm: The rhythm was normal sinus rhythm. The ME interval was 0 msec. morphology: There was [...] and Doppler Name: TARA HINKLE MR #: [id number] Study date: 03/27/2010 Age: : 1985 Gender: Female Ht: / Wt: / BSA: HR: BP: / age: TORSTEN: Maternal age: REFERRING PHYSICIAN: Sidney Vicente MD WATER VALVE MECHANIC: Delia Jerez MD PEDIATRIC ECHO FRONT END WEB DEVELOPER: CECIL Antohny Allergies: NKA History: , due to diabetes. Procedure: The procedure was performed in the echo lab. rhythm: The rhythm was normal sinus rhythm. The ME interval was 0 msec. morphology: There was [...] Jerez MD ECHO ORDERABLES Performing Organization Address City/State/[facility] Co de Phone Number [facility] [address] [place] [address] * (ABNORMAL) COMPREHENSIVE METABOLIC PANEL (02/22/2010 12:15 [...] LABORATORY Calcium 8.4 8.4 - 10.2 mg/dl [facility] Alkaline Phosphatase 55 38 - 126 U/L [facility] AST 15 8 - 39 U/L [facility] Bilirubin Total 0.5 0.2 - 1.3 mg/dl [facility] Protein Total 6.4 6.3 - 8.2 gm/dl [facility] Albumin 3.0(L) 3.9 - 5.0 gm/dl [facility] CO2 24 22 - 30 mmol/L [facility] ALT 5(L) 9 - 52 U/L [facility] eGFR by MDRD 98 >60 mL/min/1.[address] [facility] Comment eGFR [facility] Comment: The eGFR does not apply to patients who are younger than 18 or older than 70. BLOOD SPECIMEN / Unknown 02/22/2010 12:15 AM CDT 02/22/2010 12:47 AM CDT Jerry Isaac MD LAB - CHEMISTRY ORDE REFUGIO Performing Organization Address City/[facility]/ZIP Co de Phone Number [facility] [address] [place] [address] * (ABNORMAL) PROTEIN URINE TIMED QUANTITATIVE (02/22/2010 12:00 AM CDT) Volume 24 Hour U[address] [facility] Protein 24 Hour Urine 514(H) 42 - 225 mg/24hr [facility] URINE SPECIMEN COLLECTION, 24 HOURS / Unknown 02/22/2010 02/22/2010 12:47 AM CDT Ellen Villeda MD LAB - U RINE CHEMISTRY ORDERABLES [facility] [address] [place] [address] * CREATININE CLEARANCE URINE TIMED (02/22/2010 12:00 AM CDT) Creatinine 0.74 0.52 - 1.04 mg/dl [facility] Creatinine Urine 19.5 mg/dl [facility] Volume 24 Hour Urine 4631 ml/[address] [facility] Creatinine 24 Hour Urine 1002.3 800 - 1800 mg/24hr [facility] Creatinine Clearance 85 85 - 125 ml/min [facility] URINE SPECIMEN COLLECTION, 24 HOURS / Unknown 02/22/2010 02/22/2010 12:47 AM CDT Ellen Villeda MD LAB - U RINE CHEMISTRY ORDERABLES Performing Organization Address [facility] de Phone Number [facility] [address] [place] [address] * SONOGRAM - LIMITED (02/21/2010) Anatomical Region Laterality Modality Other Ellen Villeda MD [facility] ORD ERABLES * (ABNORMAL) URINALYSIS ROUTINE AUTO (02/20/2010 6:10 PM CDT) Source Clean Catch [facility] Color UA Pale Yellow [facility] Character UA Clear [facility] Glucose UA >=1000(AA) NEGATIVE mg/dl [facility] Bilirubin UA NEGATIVE NEGATIVE [facility] Ketone UA NEGATIVE NEGATIVE mg/dl [facility] Specific [place] UA 1.010 1.003 - 1.030 [facility] Blood UA NEGATIVE NEGATIVE [facility] pH UA 6.5 5.0 - 9.0 [facility] Protein UA NEGATIVE NEGATIVE-TR ABILIO mg/dl [facility] Urobilinogen UA 0.2 0.2 - 1.0 Edwina Units/dl [facility] Nitrite UA NEGATIVE NEGATIVE [facility] Leukocyte UA NEGATIVE NEGATIVE [facility] Reducing Substances UA >= 2.0(H) Negative gm/dl [facility] URINE SPECIMEN OBTAINED BY CLEAN CATCH PROCEDURE / Unknown 02/20/2010 6:10 PM CDT 02/20/2010 9:33 PM CDT Ellen Villeda MD LAB - U RINALYSIS ORDERABLES Performing Organization Address [facility]/ZIP Co de Phone Number [facility] [address] [place] [address] * ACETONE BLOOD QUALITATIVE (02/20/2010 6:10 PM CDT) Acetone Negative Negative [facility] BLOOD SPECIMEN / Unknown 02/20/2010 6:10 PM CDT 02/20/2010 9:14 PM CDT Ellen Villeda MD LAB - C HEMISTRY ORDERABLES [facility] [address] [place] [address] * ALPHA FETOPROTEIN BLOOD MATERNAL QUAD PANEL (12/15/2009 12:40 PM CDT) Alpha-Fetoprotein 38 ng/ml [facility] AFP MoM 1.23 [facility] HCG QUANT Serum 23512 IU/L [facility] hCG MoM 1.98 [facility] Estriol 1.45 ng/ml [facility] UE3 MoM [address].16 [facility] Dimeric Inhibin A 251 pg/ml [facility] RAMY MoM 1.77 [facility] Interpretation AFP [facility] Comment: Comments and Normal Ranges for [...] (1 in 150) Trisomy 18 1 in 84273 <1 in 41324 (1 in 100) Assuming the patient information listed is correct, this maternal serum screen is within normal limits. The interpretation is based on maternal age, gestational age, maternal weight, the presence or absence of insulin requiring maternal diabetes, maternal race, and number of fetuses, if known. Specimen First [facility] Maternal Weight 169 [facility] Maternal Age 25.[address] [facility] Dating LNMP [facility] Gestational Age Exact 19.86 [facility] Insulin for Diabetes Yes [facility] Family History of Neural Tube Defect Unknown [facility] Maternal Race White [facility] Number of Fetuses Unknown [facility] Estimate Due Date [id number] [facility] Comment Ref Lab [facility] Comment: Comments and Normal Ranges for Component *No.of Fetuses To download an enhanced report for this test, scroll down to the Enhanced Laboratory Reports section (lower right) of the web page at/ [email or web address]. Enter the following username and password/ User Name/ iGUDd Password/ [email or web address] BLOOD SPECIMEN / Unknown 12/15/2009 12:40 PM CDT 12/15/2009 1:02 PM CDT Narrative Resulting Agency Comment Performed By [facility] [address] [place], [place] [address] Dayanna Stiles MD LAB - CHEMISTRY CRISTIANO HUFF [facility] [address] [place] [address] * (ABNORMAL) OBSTETRIC PANEL (10/06/2009 11:30 AM CREDIT RISK ANALYST) WBC 10.2(H) 4.0 - 10.0 K/CUMM [facility] RBC 4.68 3.80 - 5.80 M/CUMM [facility] Hemoglobin 12.8 12.0 - 16.0 gm/dl [facility] Hematocrit 38.7 37.0 - 47.0 % [facility] MCV 82.7 80.0 - 100.[address] [facility] MCH 27.4 26.0 - 34.[address] [facility] MCHC 33.1 31.0 - 37.0 gm/dl [facility] RDW 13.9 11.5 - 14.5 % [facility] Platelet Count 236 150 - 400 K/CUMM [facility] Granulocytes % 66.1 50 - 70 % [facility] Lymphocytes % 22.1 20 - 40 % [facility] Monocytes % 9.3 0 - 12 % [facility] Eosinophils % 1.4 0 - 5 % [facility] Basophils % 0.7 0 - 2 % [facility] RPR Non-Reactive Non Reactive [facility] Hepatitis B Virus Surface Antigen Nonreactive Nonreactive [facility] ABO Rh B POS SEE BELOW [facility] Comment: Weak D testing is not performed at [facility] Antibody Screen NEG [facility] Rubella Antibody 7.8 SEE BELOW IU/ml [facility] Comment: =>10.0 Positive-Immune 5.0-9.9 Suggest Repeat Testing <5.0 Negative-Nonimmune Granulocytes Absolute 6.72 2.00 - 7.00 x1000/cmm [facility] Lymphocytes Absolute 2.25 0.80 - 4.00 x1000/cmm [facility] Monocytes Absolute 0.95 0.00 - 1.20 x1000/cmm [facility] Eosinophils Absolute 0.14 0.00 - 0.50 x1000/cmm [facility] Basophils Absolute 0.07 0.00 - 0.20 x1000/cmm [facility] BLOOD SPECIMEN / Unknown 10/06/2009 11:30 AM CREDIT RISK ANALYST 10/06/2009 11:41 AM CREDIT RISK ANALYST Stephen Rodarte MD LAB - CHEMISTRY ORDERABLES [facility] [address] [place] [address] * (ABNORMAL) HEMOGLOBIN A1C - POINT OF CARE (IP) (09/29/2009 10:06 AM CREDIT RISK ANALYST) Hemoglobin A1c POCT 11(A) 3.4 - 6.1 % [facility] POCT TESTING QC Verified Yes [facility] POC T TESTING Blood specimen (specimen) BLOOD SPECIMEN / Unknown 09/29/2009 10:06 AM CREDIT RISK ANALYST Sidney Vicente MD LAB - POINT OF C ARE ORDERABLES Performing Organization Address City/[facility]/ZIP Co de Phone Number [facility] [place] [address] * HCG URINE QUALITATIVE - POCT (IP) [facility] (08/26/1998 12:00 AM CREDIT RISK ANALYST) Test Urine neg COUNT INCLUDES THE [facility] Urine specimen (specimen) 08/26/1998 Amanda Carroll MD LAB - POIN T OF CARE ORDERABLES COUNT INCLUDES THE [facility]
--- OUTSIDE RECORDS SUMMARY | 2024-10-02 09:46 | XMS_ITS | Clinical Summary ---
Author Organization [facility] Facility Address [address] [address] Care Team Providers Care Adapted Physical Education Specialist Name Role Phone Janak Adams MD Primary Care Provider [phone] Social History Tobacco Use Types Packs/Day Years [...] Influenza Vaccine (#1) 2024 06/24/2018, 2015 Insurance [employer] Care Teams Adapted Physical Education Specialist Relationship Specialty Start Date End Date Janak Adams MD [address] [place] [address] PCP - General Endocrinology 02/25/24
--- OUTSIDE RECORDS SUMMARY | 2024-10-02 09:46 | XMS_ITS | Clinical Summary ---
Author Organization [facility] Address [address] [place] [address] [place] [address] Care Team Providers Care Tobacco Classer Name Role Phone Unavailable Primary Care Provider Unavailabl e Source Comments [facility],non-owned Affiliates and Associated Physician Practices is amultiple site organization consisting of ambulatory clinics and hospital sitesin [place], [place], [place] and [place]. This disclosure is being madepursuant to the Care Everywhere program and may not contain all information available regarding this patient. Last updated 18.[place]ree Allergies No known active allergies Medications * [...] complication 10/06/2009 Overview (10/06/2009): 2 prior at [facility], pt wants repeat. Both LTCS. Need for lgsgmee-dihva-bldwytk (MMR) vaccine 06/2010 Overview (01/17/2015): MMR after [...] (11/10/2010 4:35 PM CDT) HIV-1/HIV-2 Nonreactive Nonreactive [facility] BLOOD SPECIMEN / Unknown 11/10/2010 4:35 PM CDT 11/10/2010 4:45 PM CDT Ladonna Vasques MD LAB - CHEMIS TRY ORDERABLES Performing Organization Address City/[facility]/ZIP Co de Phone Number [facility] [address] [place] [phone] * HEPATITIS C ANTIBODY (11/10/2010 4:35 PM CDT) Hepatitis C Antibody Screen Nonreactive Nonreactive [facility] BLOOD SPECIMEN / Unknown 11/10/2010 4:35 PM CDT 11/10/2010 4:45 PM CDT Ladonna Vasques MD LAB - CHEMIS TRY ORDERABLES Performing Organization Address City/[facility] Co de Phone Number [facility] [address] [place] [phone] * CYTOLOGY CERVICAL/VAG SCREEN THIN PREP (11/10/2010 4:30 PM CDT) Comment Thin Prep [facility] Pap Smear Report See Scanned Report [facility] ENTIRE ENDOCERVIX / Unknown 11/10/2010 4:30 PM CDT 11/10/2010 4:45 PM CDT Narrative Resulting Agency Comment Performed By [facility]() [address], [place] [address] Ladonna Vasques MD LAB - PATHOL OGY/CYTOLOGY ORDERABLES Performing Organization Address City/[facility]/ZIP Co de Phone Number [facility] [address] [place] [phone] from Last 3 Months or Most Recently [...]
--- OUTSIDE RECORDS SUMMARY | 2024-10-02 09:46 | XMS_ITS | Referral Summary ---
Author Organization [facility] Address [address] [place] [address] [place] [address] Care Team Providers Care Desulphurizer Operator Name Role Phone Unavailable Primary Care Provider Unavailabl e Source Comments [facility],non-owned Affiliates and Associated Physician Practices is amultiple site organization consisting of ambulatory clinics and hospital sitesin [place], [place], [place] and [place]. This disclosure is being madepursuant to the Care Everywhere program and may not contain all information available regarding this patient. Last updated 18.[employer] Allergies No known active allergies Medications * [...] 10/06/2009 Overview (10/06/2009): 2 prior at [facility], pt wants repeat. Both LTCS. Need for vcuaxld-fpvgb-artoowk (MMR) vaccine 06/2010 Overview (01/17/2015): MMR after [...] 4:35 PM CDT) HIV-1/HIV-2 Nonreactive Nonreactive [facility] BLOOD SPECIMEN / Unknown 11/10/2010 4:35 PM CDT 11/10/2010 4:45 PM CDT Ladonna Vasques MD LAB - CHEMIS TRY ORDERABLES Performing Organization Address [facility] de Phone Number [facility] [address] [place] [phone] * HEPATITIS C ANTIBODY (11/10/2010 4:35 PM CDT) Hepatitis C Antibody Screen Nonreactive Nonreactive [facility] BLOOD SPECIMEN / Unknown 11/10/2010 4:35 PM CDT 11/10/2010 4:45 PM CDT Ladonna Vasques MD LAB - CHEMIS TRY ORDERABLES Performing Organization Address [facility] Co de Phone Number [facility] [address] [place] [address] * CYTOLOGY CERVICAL/VAG SCREEN THIN PREP (11/10/2010 4:30 PM CDT) Comment Thin Prep [facility] Pap Smear Report See Scanned Report [facility] ENTIRE ENDOCERVIX / Unknown 11/10/2010 4:30 PM CDT 11/10/2010 4:45 PM CDT Narrative Resulting Agency Comment Performed By [facility]() [address] [place], [place] [address] Ladonna Vasques MD LAB - PATHOL OGY/CYTOLOGY ORDERABLES [facility] [address] [place] [address] from Last 3 Months or Most Recently [...]
[2024-10-02] MEDS: SODIUM CHLORIDE 0.9% IV 1,000 ML 150 ML IV CONT (09:51)
[2024-10-02] MEDS: metroNIDAZOLE 500 MG/ISO 100ML 500 MG/100 ML BAG 100 MG IVPB ×3 (10:10→21:38)
--- NOTE | 2024-10-02 10:37 | PC.NURSE ---
Report received by ER nurse at 0900. Patient to be transferred to ICU room 5.
--- NOTE | 2024-10-02 10:38 | ADMGEN ---
This patient, Tara Hinkle, was admitted to Intensive Care Unit-5 at 0942 from the ER. Patient/family oriented to hospital policies and general routines including ID bracelet, bed and alarms, visiting hours, pain management, procedures, bathroom and other care routines, personal items, smoking policy, room service/diet, and visiting hours. Information on how to activate the Rapid Response Team has been discussed. Patient/Family are encouraged to report perceived risks to care and to ask questions if they do not understand what they are told or what they should do.
[2024-10-02] MEDS: MAGNESIUM SULFATE 3GM/D5W100ML 3 GM/100 ML BAG IVPB (10:58)
--- NOTE | 2024-10-02 11:01 | P.CONIN_ITS ---
Assessment and Plan Assessment and plan (1) DKA (diabetic ketoacidosis): Qualifiers: Diabetes mellitus complication detail: without coma Diabetes mellitus type: type 1 Qualified Code(s): E10.10 - Type 1 diabetes mellitus with ketoacidosis without coma Code(s): E11.10 - Type 2 diabetes mellitus with ketoacidosis without coma Status: Acute Assessment and Plan: 10/02: Patient presented with nausea, vomiting, diarrhea, abdominal pain -states that her insulin pump fell off or is malfunctioning -in the ER patient was found to be in severe anion gap metabolic acidosis with hyperglycemia -diagnosed with diabetic ketoacidosis, given 3 L IV fluid bolus and started on insulin infusion per DKA protocol and transferred to the ICU for further management. -10/02: will give additional 1 L IV fluid bolus in the ICU (they will be a total of 4 L IV fluid bolus since admission) -continue insulin infusion per DKA protocol -once anion gap is closed, will transition to long-acting insulin and sliding scale insulin -okay with ice chips for now (2) Type 1 diabetes mellitus: Qualifiers: Diabetes mellitus complication status: with hyperglycemia Qualified Code(s): E10.65 - Type 1 diabetes mellitus with hyperglycemia Code(s): E10.9 - Type 1 diabetes mellitus without complications Status: Acute Assessment and Plan: Patient has a longstanding history of type 1 diabetes with neuropathy, gastroparesis -hemoglobin A1c is 8.2 this admit -consult certified lactation educator and dietitian (3) Colitis: Code(s): K52.9 - Noninfective gastroenteritis and colitis, unspecified Status: Acute Assessment and Plan: Patient also presented with abdominal pain, nausea and vomiting CT abdomen and pelvis: Questionable infectious/inflammatory colitis of the cecum/proximal ascending colon versus underdistention. Correlate clinically. Diffuse hepatic steatosis. Normal appendix. - started on ceftriaxone and metronidazole (10/02) -pain control with Dilaudid (4) Cannabinoid hyperemesis syndrome: Code(s): R11.2 - Nausea with vomiting, unspecified; F12.90 - Cannabis use, unspecified, uncomplicated Status: Acute Assessment and Plan: Patient has a history of cannabinoid hyperemesis syndrome, continues to smoke marijuana on a daily basis -have counseled patient on cessation of marijuana usage -continue Zofran and Reglan (5) Tobacco abuse: Code(s): Z72.0 - Tobacco use Status: Acute Assessment and Plan: Continues to smoke 1 packet per day, counseled patient on cessation of tobacco use (6) Hypomagnesemia: Code(s): E83.42 - Hypomagnesemia Status: Acute Assessment and Plan: Replace magnesium (7) Gastroparesis: Code(s): K31.84 - Gastroparesis Status: Acute Assessment and Plan: Continue Reglan Plan DVT prophylaxis: Lovenox Stress ulcer prophylaxis: Protonix Nutrition: NPO except ice chips Code Status: Full code Critical Care Time Spent: 48 minutes Discussed with patient updated with her condition and plan of care. I answered all questions Due to a high probability of clinically significant, life threatening deterioration, the patient required my highest level of preparedness to intervene emergently and I personally spent this critical care time directly and personally managing the patient. This critical care time included obtaining a history; examining the patient; pulse oximetry; ordering and review of studies; arranging urgent treatment with development of a management plan; evaluation of patient's response to treatment; frequent reassessment; and discussions with other providers. It was exclusive of separately billable procedures and treating other patients and teaching time. Please see Assessment and Plan section and the rest of the note for further information on patient assessment and treatment This dictation may have been done utilizing a voice recognition system. Attempts have been made to correct errors. However, there may be uncorrected grammatical, spelling, and recognitions errors present. Refinery Operator Consult Note Consult date: 10/02/24 Reason for consult: Diabetic ketoacidosis, hyperglycemia, metabolic acidosis, infectious/inflammatory colitis HPI: Tara Hinkle is a 39 year old female and past medical history of type 1 diabetes with previous history of DKA and frequent ER visits and admission, gastroparesis, hyperlipidemia, diabetic neuropathy, cannabinoid hyperemesis syndrome, bipolar disorder, history of esophageal varices, GERD with esophagitis, migraine presented the ED on 10/02/2024 with complaints of nausea, vomiting, diarrhea and abdominal pain for the last 24-48 hours, patient has been using insulin pump which she thinks fell out on is malfunctioning. She has had multiple episodes of nausea, vomiting, abdominal pain and diarrhea. Patient was admitted on 08/03/2024 with similar complaints. Patient also had a history of cannabinoid hyperemesis syndrome and gastroparesis and continues to smoke marijuana daily. She also smokes cigarettes/tobacco 1 packet per day, denies any alcohol use. In the ER is found to have leukocytosis of 12.1, with 90% neutrophils. Severe metabolic acidosis with CO2 <5, blood sugars of 507, anion gap was initially 23, serum beta hCG was negative. Urine drug screen was positive for cannabinoid. Magnesium was 1.2. Influenza, RSV and COVID were negative. Chest x-ray with no acute cardiopulmonary disease CT abdomen and pelvis: Questionable infectious/inflammatory colitis of the cecum/proximal ascending colon versus underdistention. Correlate clinically. Diffuse hepatic steatosis. Normal appendix. Patient was given 3 L IV fluid bolus in the ER, started on insulin infusion per DKA protocol and transferred to the ICU for further management. Patient seen and examined upon arrival to the ICU, is tachycardic in the 140s, blood pressures are stable, on room air with 100% O2 sats. Patient does complain of some nausea but denies any vomiting at this time. Also complains of abdominal pain. She was able to give me the above history. I have asked the bedside RN to give the patient 1 L IV fluid bolus. Review of Systems 2 Review of Systems: All systems reviewed & are unremarkable except as noted in HPI and below PMFSH Past Medical History Medical History Cannabinoid hyperemesis syndrome Bipolar disorder Esophageal varices 04/2024 Depression Migraine Diabetic neuropathy GERD with esophagitis Hyperlipidemia Gastroparesis Elevated liver enzymes Type 1 diabetes mellitus Diagnosed at the age of 7. Hemoglobin A1c was 10.8% on 08/09/2020. DKA (diabetic ketoacidoses) multiple Surgical History Surgical History History of gynecological procedure 04/29/2020- mirena iud insertion - 10/23/2021 mirena iud removal -nm History of 3 sections Family History Family History (Updated 10/01/24 @ 14:13 by Ozzy Nelson MA) Grandparent Breast cancer Father Diabetes mellitus Alcoholism Mother Alcoholism Depression Other Hypertension Social History Social History Smoking packs per day: 1 Smoking cigarettes per day: 20.0 Years smoked: 20 Smoking pack-years: 20.00 Smoking status: Current every day smoker Second hand tobacco smoke exposure: Yes Alcohol intake: former Drinks per week: 20 Alcohol use details: occasional Substance use: current Substance use type: marijuana Last use: 07/25/24 Do You Feel Safe in your Home?: Yes Lack of Transportation: No Lack of Food: Never True Current Housing: I Have Housing Concerned About Future Housing: No Difficulty Paying Gas/Electric Bills: No Difficulty Paying for Meds: No Currently Unemployed: No Education: Decline to Answer Difficulty w/ Childcare or Family Care: No Living arrangements: with family Occupation/Education: unemployed Additional occupation/education comments: not currently working Gender identity (if verbalized by the patient): Female Sexual Orientation (if Verbalized by the Patient): Straight or Heterosexual Spiritual care concerns: No Meds Home Medications and Allergies Home Medications ?Medication ?Instructions ?Recorded ?Confirmed ?Type insulin pump cartridge,auto #1 ea 01/09/24 10/02/24 Rx dose,BT,G6/G7 with controller subcutaneous (Omnipod 5 G6-G7 Intro Kit(Gen 5) subcutaneous cartridge and controller) gabapentin 300 mg capsule 300 mg PO QHS #90 caps 01/17/24 10/02/24 Rx lisinopril 2.5 mg tablet 2.5 mg PO DAILY #90 tabs 01/30/24 10/02/24 Rx insulin pump cartridge,auto #1 ea 05/14/24 10/02/24 Rx dose,BT,G6/G7 with controller subcutaneous glucagon 1 mg/0.2 mL subcutaneous 1 mg (0.2 mL) subcut ONCE #0.4 mL 06/02/24 10/02/24 Rx auto-injector (Gvoke HypoPen 2-Pack) glucose 4 gram chewable tablet 16 g (4 x 4 gram) PO Q15M PRN 06/02/24 10/02/24 Rx hypoglycemia #360 tabs insulin lispro 100 unit/mL See Rx Instructions subcut PRN 06/02/24 10/02/24 Rx subcutaneous solution insulin pump #60 mL insulin pump cart,auto,BT,G6/7 #45 ea 06/02/24 10/02/24 Rx mecobalamin (vitamin B12) 500 mcg 500 mcg PO DAILY 07/15/24 10/02/24 History chewable tablet multivitamin 1 tablet PO DAILY 07/15/24 10/02/24 History acetaminophen 500 mg capsule 1,000 mg (2 x 500 mg) PO Q6H PRN 07/31/24 10/02/24 Rx pain #30 caps aluminum-mag hydroxide-simethicone 10 ml PO TID PRN indigestion 07/31/24 10/02/24 Rx 400 mg-400 mg-40 mg/5 mL oral susp #3,000 mL (Liquid Antacid) melatonin 10 mg tablet 10 mg PO HS PRN Insomnia 08/02/24 10/02/24 History insulin aspart U-100 100 unit/mL 5 unit (0.05 mL) subcut .tid with 08/06/24 10/02/24 Rx (3 mL) subcutaneous pen (Novolog meals 30 days #15 mL FlexPen U-100 Insulin aspart) insulin glargine 100 unit/mL 25 unit (0.25 mL) subcut DAILY 30 08/06/24 10/02/24 Rx subcutaneous solution (Lantus days #15 mL U-100 Insulin) cholecalciferol (vitamin D3) 50 See Rx Instructions .Route 09/08/24 10/02/24 Rx mcg (2,000 unit) capsule (Vitamin .COMPLEX #90 caps D3) folic acid 1 mg tablet See Rx Instructions .Route 09/08/24 10/02/24 Rx .COMPLEX #90 tabs blood-glucose sensor (Dexcom G6 #9 ea 09/16/24 10/02/24 Rx Sensor device) insulin pump cart,auto,BT,G6/7 #30 ea 09/21/24 10/02/24 Rx (Omnipod 5 G6-G7 Pods (Gen 5) subcutaneous cartridge) blood-glucose transmitter (Dexcom 10/02/24 10/02/24 History G6 Transmitter device) metoclopramide HCl 10 mg tablet 10 mg PO Q6H PRN nausea and 10/02/24 10/02/24 History vomiting Allergies Allergy/AdvReac Type Severity Reaction Status Date / Time No Known Allergies Allergy Verified 10/02/24 09:10 Vital Signs Vital Signs - 24 hr 10/02/24 03:11 10/02/24 08:36 10/02/24 09:24 Temperature 97.7 F 97.6 F 98.1 F Pulse Rate 119 H 145 H 143 H Respiratory Rate 20 24 H 20 Blood Pressure 164/82 H 129/67 147/75 H Pulse Oximetry 100 100 98 Oxygen Delivery Room Air 10/02/24 10:44 Temperature Pulse Rate Respiratory Rate Blood Pressure Pulse Oximetry Oxygen Delivery Room Air Exam 2 Narrative: General: Pleasant female, ill-appearing HEENT:? Pupils equal and reactive, sclera is clear, dry oral mucosa Neck:? Supple Respiratory:, tachypnea, clear to auscultate Cardiac:? Sinus tachycardia, S1-S2 is normal Abdomen:? Soft, nondistended, periumbilical tenderness, normoactive bowel sounds Extremities:? No edema, palpable pedal pulse Neuro:? Patient is awake, alert, oriented, able to answer questions appropriately and follows simple commands in all extremities Skin:? Warm and dry Psych:? Normal mentation and affect Results Labs 10/02/24 04:56 10/02/24 12:38 Labs: Short CBC 10/02/24 Range/Units 04:56 WBC 12.1 H (4.5-10.0) K/mm3 Hgb 10.0 L (12.0-15.0) g/dL Hct 31.2 L (37.0-47.0) % Plt Count 232 (150-375) k/mm3 BMP 10/02/24 10/02/24 10/02/24 04:56 06:59 08:50 Sodium 138 141 140 Potassium 4.4 4.2 Chloride 102 109 H Carbon Dioxide 12 L 9 L BUN 17 16 Creatinine 0.65 L 0.62 L Glucose 421 H 399 H Calcium 9.6 9.0 10/02/24 10/02/24 10/02/24 08:50 08:50 08:50 Sodium Cancelled Potassium 4.6 Cancelled Chloride 105 Cancelled Carbon Dioxide < 5 L BUN Creatinine Glucose Calcium 10/02/24 10/02/24 10/02/24 08:50 08:50 08:50 Sodium Potassium Chloride Carbon Dioxide Cancelled BUN 19 H Cancelled Creatinine 0.80 Cancelled Glucose 507 H* Calcium 10/02/24 10/02/24 08:50 08:50 Sodium Potassium Chloride Carbon Dioxide BUN Creatinine Glucose Cancelled Calcium 9.5 Cancelled Liver Function 10/02/24 Range/Units 04:56 Total Bilirubin 1.2 (0.2-1.3) mg/dL AST 25 (14-36) U/L ALT 23 (6-35) U/L Alkaline Phosphatase 65 (38-126) U/L Albumin 3.9 (3.5-5.1) g/dL Quality VTE Prophylaxis VTE prophylaxis: pharmacologic ordered Hospitalist MIPS Advance Care Plan I have confirmed that the patient's Advanced Care Plan is present, code status is documented, or surrogate decision maker is listed in patient medical record.: Yes Medication Reconciliation I have utilized all available resources to obtain, update and review the patients current medications (includes all prescriptions, OTC, herbals, cannabis, and nutritional supplements).: Yes
[2024-10-02 11:30] LABS: Glucose Point of Care 353 mg/dl (65-105)
[2024-10-02 11:30] LABS: Glucose Point of Care 281 mg/dl (65-105)
[2024-10-02] MEDS: HYDROmorphone HCL INJ (*CRX) 1 MG/ML SYR 0.5 MG IV PUSH ×4 (11:50→23:49)
[2024-10-02 12:05] LABS: Glucose Point of Care 223 mg/dl (65-105)
[2024-10-02 12:05] LABS: MRSA (PCR) NOT DETECTED (NOT DETECTE)
[2024-10-02] MEDS: KCL 20 MEQ/D5/0.45% SOD CHL 1,000 ML 150 ML IV CONT ×2 (12:12→18:23)
--- NOTE | 2024-10-02 12:28 | PCFNICU ---
ICU Rounding Note: Pt current nutrition is NPO. Nutrition recommendation: when medically able recommend a DBCC diet. Last recorded weight is 66.5 kg. Labs Reviewed: Glu 507, BUN 19, Hct 31.3, Hgb 10.0 Meds Noted:Insulin, Reglan, NS, Rocephin, Flagyl Skin:WNL Additional Notes: Patient admitted today with DKA. Nausea/vomiting/diarrhea reported. Type 1 DM with pump. History of gastroparesis and cannabinoid hyperemesis syndrome. Patient currently on insulin drip and NPO. Agree with diet orders at this time. Following daily in ICU rounds.
[2024-10-02 12:58] LABS: Anion Gap 18 mmol/L (4-12); Blood Urea Nitrogen 18 mg/dL (7-17); Calcium 9.5 mg/dL (8.4-10.2); Carbon Dioxide 13 mmol/L (22-30); Chloride 111 mmol/L (98-107); Estimated CRCL calculation 79 ml/min; Estimated Glomerular Filt Rate > 60; Glucose 203 mg/dL (65-110); Potassium 3.6 mmol/L (3.4-5.0); Sodium 142 mmol/L (137-145)
[2024-10-02 13:01] LABS: Glucose Point of Care 199 mg/dl (65-105)
[2024-10-02 13:57] LABS: Glucose Point of Care 206 mg/dl (65-105)
[2024-10-02] MEDS: ENOXAPARIN 40 MG/0.4 ML SYRINGE SUB-Q (14:23)
[2024-10-02] MEDS: POTASSIUM CHLORIDE INJ 40 MEQ in SODIUM CHLORIDE 0.9% IV 500 ML 130 MEQ IVPB (14:23)
[2024-10-02] MEDS: PANTOPRAZOLE SODIUM IV 40 MG VIAL IV PUSH (14:23)
[2024-10-02 15:03] LABS: Glucose Point of Care 208 mg/dl (65-105)
--- NOTE | 2024-10-02 15:18 | PM.IMHP ---
H&P: HPI History of Present Illness Date/Time: 10/02/24 15:18 Chief Complaint: Vomiting and diarrhea. Narrative: 39-year-old female past medical history of type1 diabetes, gastroparesis, hyperlipidemia, diabetic neuropathy cannabinoid hyperemesis syndrome, bipolar disorder, GERD, migraine presented with vomiting and diarrhea abdominal pain. Patient was in joints pain distress sleeping in the to history. At that she has been having the symptoms the last 2 days. She was unable to place insulin pump when it fell out last night. ER eval notable vital signs notable for pulse rate 111, blood pressure 142/90 saturating 100% on room air. Labs notable for WBC 12.1, hemoglobin 10.0, bicarb baseline, anion gap 23, blood glucose 399, urine toxicology positive for cannabinoids. RSV COVID flu negative. Magnesium 1.2. CT abdomen and pelvis showed possible infectious/inflammatory colitis of the cecum proximal ascending colon versus underdistention. Chest x-ray normal. Patient was admitted to ICU for DKA protocol. Review of Systems Review of Systems: All other systems were reviewed and negative except as noted in HPI above. [facility] Past Medical History Medical History Cannabinoid hyperemesis syndrome Bipolar disorder Esophageal varices 04/2024 Depression Migraine Diabetic neuropathy GERD with esophagitis Hyperlipidemia Gastroparesis Elevated liver enzymes Type 1 diabetes mellitus Diagnosed at the age of 7. Hemoglobin A1c was 10.8% on 08/09/2020. DKA (diabetic ketoacidoses) multiple Surgical History Surgical History History of gynecological procedure 04/29/2020- mirena iud insertion - 10/23/2021 mirena iud removal -nm History of 3 sections Family History Family History (Updated 10/01/24 @ 14:13 by Ozzy Nelson MA) Grandparent Breast cancer Father Diabetes mellitus Alcoholism Mother Alcoholism Depression Other Hypertension Social History Social History Smoking packs per day: 1 Smoking cigarettes per day: 20.0 Years smoked: 20 Smoking pack-years: 20.00 Smoking status: Current every day smoker Second hand tobacco smoke exposure: Yes Alcohol intake: former Drinks per week: 20 Alcohol use details: occasional Substance use: current Substance use type: marijuana Last use: 07/25/24 Do You Feel Safe in your Home?: Yes Lack of Transportation: No Lack of Food: Never True Current Housing: I Have Housing Concerned About Future Housing: No Difficulty Paying Gas/Electric Bills: No Difficulty Paying for Meds: No Currently Unemployed: No Education: Decline to Answer Difficulty w/ Childcare or Family Care: No Living arrangements: with family Occupation/Education: unemployed Additional occupation/education comments: not currently working Gender identity (if verbalized by the patient): Female Sexual Orientation (if Verbalized by the Patient): Straight or Heterosexual Spiritual care concerns: No Meds Home Medications and Allergies Home Medications ?Medication ?Instructions ?Recorded ?Confirmed ?Type insulin pump cartridge,auto #1 ea 01/09/24 10/02/24 Rx dose,BT,G6/G7 with controller subcutaneous (Omnipod 5 G6-G7 Intro Kit(Gen 5) subcutaneous cartridge and controller) gabapentin 300 mg capsule 300 mg PO QHS #90 caps 01/17/24 10/02/24 Rx lisinopril 2.5 mg tablet 2.5 mg PO DAILY #90 tabs 01/30/24 10/02/24 Rx insulin pump cartridge,auto #1 ea 05/14/24 10/02/24 Rx dose,BT,G6/G7 with controller subcutaneous glucagon 1 mg/0.2 mL subcutaneous 1 mg (0.2 mL) subcut ONCE #0.4 mL 06/02/24 10/02/24 Rx auto-injector (Gvoke HypoPen 2-Pack) glucose 4 gram chewable tablet 16 g (4 x 4 gram) PO Q15M PRN 06/02/24 10/02/24 Rx hypoglycemia #360 tabs insulin lispro 100 unit/mL See Rx Instructions subcut PRN 06/02/24 10/02/24 Rx subcutaneous solution insulin pump #60 mL insulin pump cart,auto,BT,G6/7 #45 ea 06/02/24 10/02/24 Rx mecobalamin (vitamin B12) 500 mcg 500 mcg PO DAILY 07/15/24 10/02/24 History chewable tablet multivitamin 1 tablet PO DAILY 07/15/24 10/02/24 History acetaminophen 500 mg capsule 1,000 mg (2 x 500 mg) PO Q6H PRN 07/31/24 10/02/24 Rx pain #30 caps aluminum-mag hydroxide-simethicone 10 ml PO TID PRN indigestion 07/31/24 10/02/24 Rx 400 mg-400 mg-40 mg/5 mL oral susp #3,000 mL (Liquid Antacid) melatonin 10 mg tablet 10 mg PO HS PRN Insomnia 08/02/24 10/02/24 History insulin aspart U-100 100 unit/mL 5 unit (0.05 mL) subcut .tid with 08/06/24 10/02/24 Rx (3 mL) subcutaneous pen (Novolog meals 30 days #15 mL FlexPen U-100 Insulin aspart) insulin glargine 100 unit/mL 25 unit (0.25 mL) subcut DAILY 30 08/06/24 10/02/24 Rx subcutaneous solution (Lantus days #15 mL U-100 Insulin) cholecalciferol (vitamin D3) 50 See Rx Instructions .Route 09/08/24 10/02/24 Rx mcg (2,000 unit) capsule (Vitamin .COMPLEX #90 caps D3) folic acid 1 mg tablet See Rx Instructions .Route 09/08/24 10/02/24 Rx .COMPLEX #90 tabs blood-glucose sensor (Dexcom G6 #9 ea 09/16/24 10/02/24 Rx Sensor device) insulin pump cart,auto,BT,G6/7 #30 ea 09/21/24 10/02/24 Rx (Omnipod 5 G6-G7 Pods (Gen 5) subcutaneous cartridge) blood-glucose transmitter (Dexcom 10/02/24 10/02/24 History G6 Transmitter device) metoclopramide HCl 10 mg tablet 10 mg PO Q6H PRN nausea and 10/02/24 10/02/24 History vomiting Allergies Allergy/AdvReac Type Severity Reaction Status Date / Time No Known Allergies Allergy Verified 10/02/24 09:10 Vital Signs Vital Signs - 24 hr 10/02/24 03:11 10/02/24 08:36 10/02/24 09:24 Temperature 97.7 F 97.6 F 98.1 F Pulse Rate 119 H 145 H 143 H Respiratory Rate 20 24 H 20 Blood Pressure 164/82 H 129/67 147/75 H Pulse Oximetry 100 100 98 Oxygen Delivery Room Air 10/02/24 09:45 10/02/24 10:00 10/02/24 10:44 Temperature 98 F Pulse Rate 143 H 143 H Respiratory Rate 22 H 22 H Blood Pressure 125/72 125/72 Pulse Oximetry 100 100 Oxygen Delivery Room Air 10/02/24 12:00 10/02/24 12:00 10/02/24 12:00 Temperature 98.4 F Pulse Rate 138 H 137 H Respiratory Rate 21 H Blood Pressure 135/58 L Pulse Oximetry 98 Oxygen Delivery Room Air 10/02/24 14:00 10/02/24 14:00 Temperature Pulse Rate 129 H 129 H Respiratory Rate 21 H Blood Pressure 153/99 H Pulse Oximetry 99 Oxygen Delivery Exam Narrative: General: alert and comfortable Eyes: EOMI, PERRLA ENNT External ears normal, Neck is supple, no masses, Respiratory systems: Clear to auscultation Cardiovascular S1, S2, normal rhythm, no murmur, rub, or gallop; no thrill or palpable murmurs on palpation. Gastrointestinal: soft, right lower quadrant tenderness, and non-distended abdomen with no masses; BS present Skin: no rash, lesions, ulcerations, subcutaneous nodules or induration Musculoskeletal: no abnormality and no tenderness, normal ROM Neurologic: Alert and oriented x3, non focal Mental Status Exam: normal affect H&P: Results Labs Labs: Short CBC 10/02/24 Range/Units 04:56 WBC 12.1 H (4.5-10.0) K/mm3 Hgb 10.0 L (12.0-15.0) g/dL Hct 31.2 L (37.0-47.0) % Plt Count 232 (150-375) k/mm3 BMP 10/02/24 10/02/24 10/02/24 04:56 06:59 08:50 Sodium 138 141 140 Potassium 4.4 4.2 Chloride 102 109 H Carbon Dioxide 12 L 9 L BUN 17 16 Creatinine 0.65 L 0.62 L Glucose 421 H 399 H Calcium 9.6 9.0 10/02/24 10/02/24 10/02/24 08:50 08:50 08:50 Sodium Cancelled Potassium 4.6 Cancelled Chloride 105 Cancelled Carbon Dioxide < 5 L BUN Creatinine Glucose Calcium 10/02/24 10/02/24 10/02/24 08:50 08:50 08:50 Sodium Potassium Chloride Carbon Dioxide Cancelled BUN 19 H Cancelled Creatinine 0.80 Cancelled Glucose 507 H* Calcium 10/02/24 10/02/24 10/02/24 08:50 08:50 12:38 Sodium 142 Potassium 3.6 Chloride 111 H Carbon Dioxide 13 L BUN 18 H Creatinine 0.73 Glucose Cancelled 203 H Calcium 9.5 Cancelled 9.5 Liver Function 10/02/24 Range/Units 04:56 Total Bilirubin 1.2 (0.2-1.3) mg/dL AST 25 (14-36) U/L ALT 23 (6-35) U/L Alkaline Phosphatase 65 (38-126) U/L Albumin 3.9 (3.5-5.1) g/dL Assessment and Plan Assessment and plan (1) Type 1 diabetes mellitus: Qualifiers: Diabetes mellitus complication status: with hyperglycemia Qualified Code(s): E10.65 - Type 1 diabetes mellitus with hyperglycemia Code(s): E10.9 - Type 1 diabetes mellitus without complications Status: Acute (2) DKA (diabetic ketoacidosis): Qualifiers: Diabetes mellitus complication detail: without coma Diabetes mellitus type: type 1 Qualified Code(s): E10.10 - Type 1 diabetes mellitus with ketoacidosis without coma Code(s): E11.10 - Type 2 diabetes mellitus with ketoacidosis without coma Status: Acute (3) Hypomagnesemia: Code(s): E83.42 - Hypomagnesemia Status: Acute (4) Colitis: Code(s): K52.9 - Noninfective gastroenteritis and colitis, unspecified Status: Acute (5) Nausea and vomiting: Qualifiers: Vomiting type: unspecified Qualified Code(s): R11.2 - Nausea with vomiting, unspecified Code(s): R11.2 - Nausea with vomiting, unspecified Status: Acute Plan Type 1 diabetes with DKA. 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 Colitis Abdominal pain diarrhea nausea vomiting. CT pelvis reviewed Continue IV fluid, Rocephin and metronidazole Follow cultures. Nausea vomiting Colitis versus diabetic gastroparesis Continue medical Monitor. Hypo magnesemia Magnesium 1.2 Replaced Monitor. Microcytic anemia Hemoglobin is 10, MCV 80 iron panel, ferritin and occult blood stool ordered Monitor H&H. Diabetic neuropathy Continue home medication. Tobacco use Patient reported that she smokes 1 pack a day. DVT prophylaxis subQ Lovenox next patient is full code Surrogate decision maker is [facility] Advance Care Plan I have confirmed that the patient's Advanced Care Plan is present, code status is documented, or surrogate decision maker is listed in patient medical record.: Yes Medication Reconciliation I have utilized all available resources to obtain, update and review the patients current medications (includes all prescriptions, OTC, herbals, cannabis, and nutritional supplements).: Yes
[2024-10-02 15:53] LABS: Add Urine Microscopic? NO; Appearance Urine Clear (Clear); Bilirubin Urine Negative (Negative); Blood Urine Negative (Negative); Color Urine Yellow (Yellow); Glucose Urine UA 3+ mg/dL (Negative); Ketones Urine 3+ mg/dL (Negative); Leukocyte Esterase Ur Negative LEU/UL (Negative); Nitrate Urine Negative (Negative); Protein Urine Negative (Negative); Specific Grav Ur 1.025 (1.001-1.035); Urobilinogen Urine 0.2 mg/dL (<2.0)
[2024-10-02 15:58] LABS: Glucose Point of Care 236 mg/dl (65-105)
[2024-10-02 16:58] LABS: Anion Gap 20 mmol/L (4-12); Blood Urea Nitrogen 16 mg/dL (7-17); Calcium 9.5 mg/dL (8.4-10.2); Carbon Dioxide 12 mmol/L (22-30); Chloride 110 mmol/L (98-107); Estimated CRCL calculation 83 ml/min; Estimated Glomerular Filt Rate > 60; Glucose 247 mg/dL (65-110); Potassium 3.9 mmol/L (3.4-5.0); Sodium 142 mmol/L (137-145)
[2024-10-02 16:59] LABS: Glucose Point of Care 250 mg/dl (65-105)
[2024-10-02 17:03] LABS: Iron 33 ug/dL (37-170)
[2024-10-02 17:12] LABS: Percent Iron Saturation 9 % (20-50)
[2024-10-02] MEDS: PROCHLORPERAZINE EDISYLATE 10 MG/2 ML VIAL IV PUSH (18:22)
[2024-10-02 18:28] LABS: Glucose Point of Care 251 mg/dl (65-105)
[2024-10-02 19:03] LABS: Glucose Point of Care 230 mg/dl (65-105)
[2024-10-02 19:52] LABS: Glucose Point of Care 214 mg/dl (65-105)
[2024-10-02 19:54] LABS: Anion Gap 19 mmol/L (4-12); Blood Urea Nitrogen 14 mg/dL (7-17); Calcium 9.6 mg/dL (8.4-10.2); Carbon Dioxide 13 mmol/L (22-30); Chloride 112 mmol/L (98-107); Estimated CRCL calculation 89 ml/min; Estimated Glomerular Filt Rate > 60; Glucose 210 mg/dL (65-110); Potassium 4.4 mmol/L (3.4-5.0); Sodium 144 mmol/L (137-145)
[2024-10-02 20:57] LABS: Glucose Point of Care 201 mg/dl (65-105)
[2024-10-02 21:53] LABS: Glucose Point of Care 164 mg/dl (65-105)
[2024-10-02 22:40] LABS: Glucose Point of Care 194 mg/dl (65-105)
[2024-10-02 23:57] LABS: Glucose Point of Care 259 mg/dl (65-105)
[2024-10-03] VITALS (15 sets, daily range): BP systolic 119–162; BP diastolic 62–95; PULSE 97–127; RESP 14–25; TEMP 36.3–37.1; O2SAT 92–100
[2024-10-03 01:02] LABS: Anion Gap 16 mmol/L (4-12); Blood Urea Nitrogen 14 mg/dL (7-17); Carbon Dioxide 14 mmol/L (22-30); Chloride 110 mmol/L (98-107); Estimated CRCL calculation 88 ml/min; Estimated Glomerular Filt Rate > 60; Glucose 277 mg/dL (65-110); Potassium 4.9 mmol/L (3.4-5.0); Sodium 140 mmol/L (137-145)
[2024-10-03 01:10] LABS: Glucose Point of Care 317 mg/dl (65-105)
[2024-10-03] MEDS: SODIUM CHLORIDE 0.9% IV 1,000 ML 150 ML IV CONT (01:15)
[2024-10-03 02:08] LABS: Glucose Point of Care 283 mg/dl (65-105)
[2024-10-03] MEDS: CAPSAICIN 0.025% CREAM 60 GM TUBE 1 APPLIC TOPICAL ×4 (02:49→23:19)
[2024-10-03 02:57] LABS: Glucose Point of Care 226 mg/dl (65-105)
[2024-10-03] MEDS: KCL 20 MEQ/D5/0.45% SOD CHL 1,000 ML 150 ML IV CONT ×3 (03:52→13:59)
[2024-10-03] MEDS: ONDANSETRON INJ 4 MG/2 ML VIAL IV PUSH ×2 (03:53→08:07)
[2024-10-03] MEDS: HYDROmorphone HCL INJ (*CRX) 1 MG/ML SYR 0.5 MG IV PUSH ×4 (03:53→18:17)
[2024-10-03 03:59] LABS: Glucose Point of Care 192 mg/dl (65-105)
[2024-10-03 04:48] LABS: Basophils Percent Auto 0.2 % (0.2-1.2); Hematocrit 29.6 % (37.0-47.0); Hemoglobin 9.1 g/dL (12.0-15.0); Immature Granulocyte Absolute 0.12 K/mm3 (0.00-0.031); Immature Granulocyte Percent A 0.6 % (0-0.5); Lymphocytes Percent Auto 8.1 % (18.3-44.2); Mean Corpuscular HGB Conc 30.7 g/dl (32-36); Mean Corpuscular Hemoglobin 25.5 pg (26-34); Mean Corpuscular Volume 82.9 fl (80-100); Mean Platelet Volume 10.5 fl (7.4-10.4); Monocytes Absolute Auto 2.2 K/mm3 (0.1-0.6); Monocytes Percent Auto 11.4 % (2.6-8.5); Neutrophils Absolute Auto 15.7 K/mm3 (1.3-6.7); Neutrophils Percent Auto 79.7 % (45.5-73.1); Platelet Count Result 229 k/mm3 (150-375); Red Blood Count 3.57 M/mm3 (4.2-5.4); Red Cell Distribution Width 15.1 % (11.5-14.5); White Blood Count 19.6 K/mm3 (4.5-10.0)
[2024-10-03 04:51] LABS: Glucose Point of Care 237 mg/dl (65-105)
[2024-10-03 05:00] LABS: Alanine Aminotransferase 29 U/L (6-35); Albumin Level 3.5 g/dL (3.5-5.1); Alkaline Phosphatase 88 U/L (38-126); Anion Gap 13 mmol/L (4-12); Aspartate Amino Transferase 41 U/L (14-36); Bilirubin,Total 0.8 mg/dL (0.2-1.3); Blood Urea Nitrogen 13 mg/dL (7-17); Calcium 9.2 mg/dL (8.4-10.2); Carbon Dioxide 15 mmol/L (22-30); Chloride 112 mmol/L (98-107); Estimated CRCL calculation 96 ml/min; Estimated Glomerular Filt Rate > 60; Glucose 210 mg/dL (65-110); Magnesium 1.7 mg/dL (1.6-2.3); Phosphorus 3.1 mg/dL (2.5-4.5); Potassium 4.8 mmol/L (3.4-5.0); Sodium 140 mmol/L (137-145)
[2024-10-03] MEDS: metroNIDAZOLE 500 MG/ISO 100ML 500 MG/100 ML BAG 100 MG IVPB ×3 (05:42→22:26)
[2024-10-03] MEDS: METOCLOPRAMIDE HCL INJ 10 MG/2 ML VIAL IV PUSH ×3 (05:43→23:19)
[2024-10-03 05:55] LABS: Glucose Point of Care 323 mg/dl (65-105)
[2024-10-03 06:54] LABS: Glucose Point of Care 268 mg/dl (65-105)
[2024-10-03 07:47] LABS: Glucose Point of Care 207 mg/dl (65-105)
[2024-10-03] MEDS: LACTATED RINGERS 1,000 ML 999 ML IV CONT (08:06)
[2024-10-03] MEDS: ENOXAPARIN 40 MG/0.4 ML SYRINGE SUB-Q (08:07)
[2024-10-03] MEDS: PANTOPRAZOLE SODIUM IV 40 MG VIAL IV PUSH (08:07)
[2024-10-03 08:52] LABS: Glucose Point of Care 150 mg/dl (65-105)
[2024-10-03] MEDS: MAGNESIUM SULF 2 GM/WATER 50ML 2 GM/50 ML BAG IVPB (08:55)
[2024-10-03] MEDS: cefTRIAXone 2 GM/NS 100 ML 2 GM/100 ML BAG IVPB (08:56)
[2024-10-03 09:06] LABS: Anion Gap 13 mmol/L (4-12); Blood Urea Nitrogen 13 mg/dL (7-17); Calcium 9.2 mg/dL (8.4-10.2); Carbon Dioxide 18 mmol/L (22-30); Chloride 111 mmol/L (98-107); Estimated CRCL calculation 105 ml/min; Estimated Glomerular Filt Rate > 60; Glucose 151 mg/dL (65-110); Sodium 142 mmol/L (137-145)
[2024-10-03] MEDS: LORazepam INJ (*CRX) 2 MG/ML VIAL 1 MG IV PUSH (09:16)
[2024-10-03 09:24] LABS: Lactic Acid Reflex 1.2 mmol/L (0.7-2.0)
[2024-10-03 10:01] LABS: Glucose Point of Care 132 mg/dl (65-105)
[2024-10-03 10:55] LABS: Glucose Point of Care 151 mg/dl (65-105)
--- NOTE | 2024-10-03 10:55 | P.PNINT_ITS ---
Progress Note: A&P Assessment and Plan (1) DKA (diabetic ketoacidosis): Qualifiers: Diabetes mellitus complication detail: without coma Diabetes mellitus type: type 1 Qualified Code(s): E10.10 - Type 1 diabetes mellitus with ketoacidosis without coma Code(s): E11.10 - Type 2 diabetes mellitus with ketoacidosis without coma Status: Acute Assessment and Plan: 10/02: Patient presented with nausea, vomiting, diarrhea, abdominal pain -states that her insulin pump fell off or is malfunctioning -in the ER patient was found to be in severe anion gap metabolic acidosis with hyperglycemia -diagnosed with diabetic ketoacidosis, given 3 L IV fluid bolus and started on insulin infusion per DKA protocol and transferred to the ICU for further management. -10/02: will give additional 1 L IV fluid bolus in the ICU (they will be a total of 4 L IV fluid bolus since admission) -continue insulin infusion per DKA protocol -once anion gap is closed, will transition to long-acting insulin and sliding scale insulin -okay with ice chips for now (2) Type 1 diabetes mellitus: Qualifiers: Diabetes mellitus complication status: with hyperglycemia Qualified Code(s): E10.65 - Type 1 diabetes mellitus with hyperglycemia Code(s): E10.9 - Type 1 diabetes mellitus without complications Status: Acute Assessment and Plan: Patient has a longstanding history of type 1 diabetes with neuropathy, gastroparesis -hemoglobin A1c is 8.2 this admit -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 Correlate clinically. Diffuse hepatic steatosis. Normal appendix. -continue ceftriaxone and metronidazole (10/02) -continues to have abdominal pain, I increased the frequency of dilaudid -10/02: Continues to have abdominal pain, obstructive series showed normal bowel gas pattern, no free intraperitoneal gas. (4) Cannabinoid hyperemesis syndrome: Code(s): R11.2 - Nausea with vomiting, unspecified; F12.90 - Cannabis use, unspecified, uncomplicated Status: Acute Assessment and Plan: Patient has a history of cannabinoid hyperemesis syndrome, continues to smoke marijuana on a daily basis -have counseled patient on cessation of marijuana usage -discontinue Zofran and Reglan -will start Compazine which has helped her in the past -10/02: gave her dose of Ativan this morning with some improvement -will add scopolamine patch for intractable vomiting -she is also on capsaicin cream to the abdomen, for cannabinoid hyperemesis syndrome (5) Tobacco abuse: Code(s): Z72.0 - Tobacco use Status: Acute Assessment and Plan: Continues to smoke 1 packet per day, counseled patient on cessation of tobacco use (6) Hypomagnesemia: Code(s): E83.42 - Hypomagnesemia Status: Acute Assessment and Plan: Replace magnesium (7) Gastroparesis: Code(s): K31.84 - Gastroparesis Status: Acute Assessment and Plan: Will hold Reglan since patient is having intractable vomiting has since Reglan and Zofran not helping, have added Compazine. Will monitor QTc Plan DVT prophylaxis: Lovenox Stress ulcer prophylaxis: Protonix Nutrition: NPO except ice chips Code Status: Full code Critical Care Time Spent: 33 minutes Discussed with patient updated with her condition and plan of care. I answered all questions Due to a high probability of clinically significant, life threatening deterioration, the patient required my highest level of preparedness to intervene emergently and I personally spent this critical care time directly and personally managing the patient. This critical care time included obtaining a history; examining the patient; pulse oximetry; ordering and review of studies; arranging urgent treatment with development of a management plan; evaluation of patient's response to treatment; frequent reassessment; and discussions with other providers. It was exclusive of separately billable procedures and treating other patients and teaching time. Please see Assessment and Plan section and the rest of the note for further information on patient assessment and treatment This dictation may have been done utilizing a voice recognition system. Attempts have been made to correct errors. However, there may be uncorrected grammatical, spelling, and recognitions errors present. Subjective Date/time seen: 10/03/24 10:55 Interval history: Reason for consult: Diabetic ketoacidosis, hyperglycemia, metabolic acidosis, infectious/inflammatory colitis, marijuana use 10/03/2024: Patient seen and examined this morning in the ICU. Complains of abdominal pain, nausea, vomiting. Zofran or Reglan are not doing much for her. She is also complaining of abdominal pain states that dilaudid helps her but wears off too early. Currently on room air, urine output has been very good, afebrile, hemodynamically stable. Anion gap remains elevated, continues to be on insulin infusion at 3.5 units/hour Review of Systems Review of Systems: All systems reviewed & are unremarkable except as noted in HPI and below Exam Narrative: General: Pleasant female, ill-appearing HEENT:? Pupils equal and reactive, sclera is clear, dry oral mucosa Neck:? Supple Respiratory: clear to auscultation, adequate air entry, no wheezing Cardiac:? Sinus tachycardia, S1-S2 is normal Abdomen:? Soft, nondistended, periumbilical tenderness, normoactive bowel sounds Extremities:? No edema, palpable pedal pulse Neuro:? Patient is awake, alert, oriented, able to answer questions appropriately and follows simple commands in all extremities Skin:? Warm and dry Psych:? Normal mentation and affect Objective Data Vital Signs Vital Signs: Vital Signs - 24 hr 10/02/24 12:00 10/02/24 12:00 10/02/24 12:00 Temperature 98.4 F Pulse Rate 138 H 137 H Respiratory Rate 21 H Blood Pressure 135/58 L Pulse Oximetry 98 Oxygen Delivery Room Air 10/02/24 14:00 10/02/24 14:00 10/02/24 16:00 Temperature 98.2 F Pulse Rate 129 H 129 H 130 H Respiratory Rate 21 H 23 H Blood Pressure 153/99 H 161/82 H Pulse Oximetry 99 99 Oxygen Delivery 10/02/24 16:00 10/02/24 16:00 10/02/24 18:00 Temperature Pulse Rate 123 H 124 H Respiratory Rate Blood Pressure Pulse Oximetry 99 Oxygen Delivery Room Air 10/02/24 18:00 10/02/24 20:00 10/02/24 20:00 Temperature 98.4 F Pulse Rate 124 H 125 H Respiratory Rate 24 H 29 H Blood Pressure 139/93 H 119/92 H Pulse Oximetry 98 99 Oxygen Delivery Room Air 10/02/24 20:00 10/02/24 22:00 10/02/24 22:00 Temperature Pulse Rate 124 H 119 H 119 H Respiratory Rate 23 H Blood Pressure 140/77 Pulse Oximetry 100 Oxygen Delivery 10/03/24 00:00 10/03/24 00:00 10/03/24 00:00 Temperature 98.2 F Pulse Rate 117 H 113 H Respiratory Rate 20 Blood Pressure 139/77 Pulse Oximetry 99 Oxygen Delivery Room Air 10/03/24 02:00 10/03/24 02:00 10/03/24 04:00 Temperature Pulse Rate 124 H 124 H Respiratory Rate 20 Blood Pressure 161/80 H Pulse Oximetry 99 Oxygen Delivery Room Air 10/03/24 04:00 10/03/24 04:00 10/03/24 06:00 Temperature 98.3 F Pulse Rate 101 H 101 H 127 H Respiratory Rate 18 Blood Pressure 142/76 H Pulse Oximetry 97 Oxygen Delivery 10/03/24 06:00 10/03/24 08:00 10/03/24 08:00 Temperature 98.2 F Pulse Rate 127 H 117 H Respiratory Rate 18 20 Blood Pressure 149/81 H 157/85 H Pulse Oximetry 99 100 Oxygen Delivery Room Air 10/03/24 08:00 10/03/24 09:15 10/03/24 10:00 Temperature Pulse Rate 118 H 100 Respiratory Rate Blood Pressure Pulse Oximetry 98 Oxygen Delivery Room Air 10/03/24 10:00 Temperature Pulse Rate 100 Respiratory Rate 14 Blood Pressure 119/62 Pulse Oximetry 99 Oxygen Delivery Intake/Output Intake/Output: Intake & Output 09/30/24 10/01/24 10/02/24 10/03/24 23:59 23:59 23:59 23:59 Intake Total 6233.7 3340.3 Output Total 2600 1200 Balance 3633.7 2140.3 Meds/Results Medications: Active Medications Generic Name Dose Route Start Last Admin Trade Name Freq PRN Reason Stop Dose Admin Capsaicin 1 applic 10/03/24 06:00 10/03/24 02:49 Capsaicin 0.025% Cream 60 Gm Tube TOPICAL 1 applic Q6HR KARRIE Administration Dextrose 12.5 gm 10/02/24 07:28 Dextrose 50% 25 Gm/50 Ml Syringe IV PUSH PRN PRN Hypoglycemia Protocol Enoxaparin Sodium 40 mg 10/02/24 13:30 10/03/24 08:07 Enoxaparin 40 Mg/0.4 Ml Syringe SUB-Q 40 mg DAILY KARRIE Administration Glucagon 1 mg 10/02/24 07:28 Glucagon For Inj 1 Mg Vial IM PRN PRN Hypoglycemia Protocol Glucose 15 gm 10/02/24 07:28 Glucose Oral Gel 15 Gm Of Glucse In 37.5 Gm Tube PO PRN PRN Hypoglycemia Protocol Hydromorphone HCl 0.5 mg 10/03/24 08:38 Hydromorphone Hcl Inj (*Crx) 1 Mg/Ml Syr IV PUSH Q3H PRN Pain Rated 7-10 Dextrose 1,000 mls @ 100 mls/hr 10/02/24 07:28 Dextrose 5% 1,000 Ml IVPB PRN PRN Hypoglycemia Protocol Sodium Chloride 1,000 mls @ 150 mls/hr 10/02/24 07:50 10/03/24 10:30 Normal Saline Iv IV CONT Not Given .Q6H40M KARRIE Insulin Human Regular 100 100 mls @ 1.5 mls/hr 10/02/24 08:05 10/03/24 10:00 units/ Sodium Chloride IV CONT 1.5 units/hr .Q24H KARRIE 1.5 mls/hr Titration Protocol 1.5 UNITS/HR Ceftriaxone Sodium 2 gm in 100 mls @ 200 mls/hr 10/03/24 09:00 10/03/24 09:26 Rocephin 2 Gm/Ns 100 Ml IVPB Infused Q24H KARRIE Infusion Metronidazole 500 mg in 100 mls @ 100 mls/hr 10/02/24 16:00 10/03/24 06:50 Flagyl 500 Mg/Iso Soln 100 Ml IVPB Infused Q8HR KARRIE Infusion Potassium Chloride/Dextrose/Sod Cl 1,000 mls @ 150 mls/hr 10/02/24 12:00 10/03/24 09:17 Kcl 20 Meq/D5/0.45% Sod Chl IV CONT 150 mls/hr .Q6H40M KARRIE Administration Dextrose/Sodium Chloride 1,000 mls @ 150 mls/hr 10/02/24 12:00 10/03/24 08:00 Dextrose 5% Sodium Chloride 0.45% IV CONT Not Given .Q6H40M KARRIE Pantoprazole Sodium 40 mg 10/02/24 13:30 10/03/24 08:07 Pantoprazole Sodium Iv 40 Mg Vial IV PUSH 40 mg QAM KARRIE Administration Prochlorperazine Edisylate 10 mg 10/03/24 08:37 Prochlorperazine Edisylate 10 Mg/2 Ml Vial IV PUSH Q4H PRN Nausea And Vomiting Radiology Results: ITS Impressions Chest X-Ray 10/02/24 06:45 Impression: Normal chest. Abdomen/Pelvis CT 10/02/24 07:39 Impression: Questionable infectious/inflammatory colitis of the cecum/proximal ascending colon versus underdistention. Correlate clinically. Diffuse hepatic steatosis. Normal appendix. Abdomen X-Ray 10/03/24 08:38 IMPRESSION: 1. Normal bowel gas pattern. Labs Labs: Laboratory Results - last 24 hr 10/02/24 10/02/24 10/02/24 09:52 10:50 10:54 WBC RBC Hgb Hct MCV MCH MCHC RDW Plt Count MPV Immature Gran % (Auto) Neut % (Auto) Lymph % (Auto) [place] % (Auto) Eos % (Auto) Baso % (Auto) Lymph # (Auto) [place] # (Auto) Eos # (Auto) Baso # (Auto) Abs Immat Gran (auto) Absolute Neuts (auto) Absolute Nucleated RBC Nucleated RBC % Sodium Potassium Chloride Carbon Dioxide Anion Gap BUN Creatinine Estim Creat Clear Calc Estimated GFR Glucose POC Capillary Glucose 353 H 281 H Lactic Acid Calcium Phosphorus Magnesium Iron TIBC % Saturation Ferritin Total Bilirubin AST ALT Alkaline Phosphatase Total Protein Albumin Urine Color Urine Appearance Urine pH Ur Specific [place] Urine Protein Urine Glucose (UA) Urine Ketones Ur Blood (Man) Urine Nitrate Urine Bilirubin Urine Urobilinogen Leukocyte Esterase Rfl Nasal MRSA (PCR) Not detected 10/02/24 10/02/24 10/02/24 11:53 12:38 12:55 WBC RBC Hgb Hct MCV MCH MCHC RDW Plt Count MPV Immature Gran % (Auto) Neut % (Auto) Lymph % (Auto) [place] % (Auto) Eos % (Auto) Baso % (Auto) Lymph # (Auto) [place] # (Auto) Eos # (Auto) Baso # (Auto) Abs Immat Gran (auto) Absolute Neuts (auto) Absolute Nucleated RBC Nucleated RBC % Sodium 142 Potassium 3.6 Chloride 111 H Carbon Dioxide 13 L Anion Gap 18 H BUN 18 H Creatinine 0.73 Estim Creat Clear Calc 79 Estimated GFR > 60 Glucose 203 H POC Capillary Glucose 223 H 199 H Lactic Acid Calcium 9.5 Phosphorus Magnesium Iron TIBC % Saturation Ferritin Total Bilirubin AST ALT Alkaline Phosphatase Total Protein Albumin Urine Color Urine Appearance Urine pH Ur Specific [place] Urine Protein Urine Glucose (UA) Urine Ketones Ur Blood (Man) Urine Nitrate Urine Bilirubin Urine Urobilinogen Leukocyte Esterase Rfl Nasal MRSA (PCR) 10/02/24 10/02/24 10/02/24 13:53 14:59 15:42 WBC RBC Hgb Hct MCV MCH MCHC RDW Plt Count MPV Immature Gran % (Auto) Neut % (Auto) Lymph % (Auto) [place] % (Auto) Eos % (Auto) Baso % (Auto) Lymph # (Auto) [place] # (Auto) Eos # (Auto) Baso # (Auto) Abs Immat Gran (auto) Absolute Neuts (auto) Absolute Nucleated RBC Nucleated RBC % Sodium Potassium Chloride Carbon Dioxide Anion Gap BUN Creatinine Estim Creat Clear Calc Estimated GFR Glucose POC Capillary Glucose 206 H 208 H Lactic Acid Calcium Phosphorus Magnesium Iron TIBC % Saturation Ferritin Total Bilirubin AST ALT Alkaline Phosphatase Total Protein Albumin Urine Color Yellow Urine Appearance Clear Urine pH 5.0 Ur Specific [place] 1.025 Urine Protein Negative Urine Glucose (UA) 3+ H Urine Ketones 3+ H Ur Blood (Man) Negative Urine Nitrate Negative Urine Bilirubin Negative Urine Urobilinogen 0.2 Leukocyte Esterase Rfl Negative Nasal MRSA (PCR) 10/02/24 10/02/24 10/02/24 15:54 16:40 16:57 WBC RBC Hgb Hct MCV MCH MCHC RDW Plt Count MPV Immature Gran % (Auto) Neut % (Auto) Lymph % (Auto) [place] % (Auto) Eos % (Auto) Baso % (Auto) Lymph # (Auto) [place] # (Auto) Eos # (Auto) Baso # (Auto) Abs Immat Gran (auto) Absolute Neuts (auto) Absolute Nucleated RBC Nucleated RBC % Sodium 142 Potassium 3.9 Chloride 110 H Carbon Dioxide 12 L Anion Gap 20 H BUN 16 Creatinine 0.69 L Estim Creat Clear Calc 83 Estimated GFR > 60 Glucose 247 H POC Capillary Glucose 236 H 250 H Lactic Acid Calcium 9.5 Phosphorus Magnesium Iron 33 L TIBC 358 % Saturation 9 L Ferritin 15.30 Total Bilirubin AST ALT Alkaline Phosphatase Total Protein Albumin Urine Color Urine Appearance Urine pH Ur Specific [place] Urine Protein Urine Glucose (UA) Urine Ketones Ur Blood (Man) Urine Nitrate Urine Bilirubin Urine Urobilinogen Leukocyte Esterase Rfl Nasal MRSA (PCR) 10/02/24 10/02/24 10/02/24 18:23 18:58 19:38 WBC RBC Hgb Hct MCV MCH MCHC RDW Plt Count MPV Immature Gran % (Auto) Neut % (Auto) Lymph % (Auto) [place] % (Auto) Eos % (Auto) Baso % (Auto) Lymph # (Auto) [place] # (Auto) Eos # (Auto) Baso # (Auto) Abs Immat Gran (auto) Absolute Neuts (auto) Absolute Nucleated RBC Nucleated RBC % Sodium 144 Potassium 4.4 Chloride 112 H Carbon Dioxide 13 L Anion Gap 19 H BUN 14 Creatinine 0.64 L Estim Creat Clear Calc 89 Estimated GFR > 60 Glucose 210 H POC Capillary Glucose 251 H 230 H Lactic Acid Calcium 9.6 Phosphorus Magnesium Iron TIBC % Saturation Ferritin Total Bilirubin AST ALT Alkaline Phosphatase Total Protein Albumin Urine Color Urine Appearance Urine pH Ur Specific [place] Urine Protein Urine Glucose (UA) Urine Ketones Ur Blood (Man) Urine Nitrate Urine Bilirubin Urine Urobilinogen Leukocyte Esterase Rfl Nasal MRSA (PCR) 10/02/24 10/02/24 10/02/24 19:50 20:55 21:44 WBC RBC Hgb Hct MCV MCH MCHC RDW Plt Count MPV Immature Gran % (Auto) Neut % (Auto) Lymph % (Auto) [place] % (Auto) Eos % (Auto) Baso % (Auto) Lymph # (Auto) [place] # (Auto) Eos # (Auto) Baso # (Auto) Abs Immat Gran (auto) Absolute Neuts (auto) Absolute Nucleated RBC Nucleated RBC % Sodium Potassium Chloride Carbon Dioxide Anion Gap BUN Creatinine Estim Creat Clear Calc Estimated GFR Glucose POC Capillary Glucose 214 H 201 H 164 H Lactic Acid Calcium Phosphorus Magnesium Iron TIBC % Saturation Ferritin Total Bilirubin AST ALT Alkaline Phosphatase Total Protein Albumin Urine Color Urine Appearance Urine pH Ur Specific [place] Urine Protein Urine Glucose (UA) Urine Ketones Ur Blood (Man) Urine Nitrate Urine Bilirubin Urine Urobilinogen Leukocyte Esterase Rfl Nasal MRSA (PCR) 10/02/24 10/02/24 10/03/24 22:37 23:53 00:47 WBC RBC Hgb Hct MCV MCH MCHC RDW Plt Count MPV Immature Gran % (Auto) Neut % (Auto) Lymph % (Auto) [place] % (Auto) Eos % (Auto) Baso % (Auto) Lymph # (Auto) [place] # (Auto) Eos # (Auto) Baso # (Auto) Abs Immat Gran (auto) Absolute Neuts (auto) Absolute Nucleated RBC Nucleated RBC % Sodium 140 Potassium 4.9 Chloride 110 H Carbon Dioxide 14 L Anion Gap 16 H BUN 14 Creatinine 0.65 L Estim Creat Clear Calc 88 Estimated GFR > 60 Glucose 277 H POC Capillary Glucose 194 H 259 H Lactic Acid Calcium 9.0 Phosphorus Magnesium Iron TIBC % Saturation Ferritin Total Bilirubin AST ALT Alkaline Phosphatase Total Protein Albumin Urine Color Urine Appearance Urine pH Ur Specific [place] Urine Protein Urine Glucose (UA) Urine Ketones Ur Blood (Man) Urine Nitrate Urine Bilirubin Urine Urobilinogen Leukocyte Esterase Rfl Nasal MRSA (PCR) 10/03/24 10/03/24 10/03/24 01:04 02:03 02:52 WBC RBC Hgb Hct MCV MCH MCHC RDW Plt Count MPV Immature Gran % (Auto) Neut % (Auto) Lymph % (Auto) [place] % (Auto) Eos % (Auto) Baso % (Auto) Lymph # (Auto) [place] # (Auto) Eos # (Auto) Baso # (Auto) Abs Immat Gran (auto) Absolute Neuts (auto) Absolute Nucleated RBC Nucleated RBC % Sodium Potassium Chloride Carbon Dioxide Anion Gap BUN Creatinine Estim Creat Clear Calc Estimated GFR Glucose POC Capillary Glucose 317 H 283 H 226 H Lactic Acid Calcium Phosphorus Magnesium Iron TIBC % Saturation Ferritin Total Bilirubin AST ALT Alkaline Phosphatase Total Protein Albumin Urine Color Urine Appearance Urine pH Ur Specific [place] Urine Protein Urine Glucose (UA) Urine Ketones Ur Blood (Man) Urine Nitrate Urine Bilirubin Urine Urobilinogen Leukocyte Esterase Rfl Nasal MRSA (PCR) 10/03/24 10/03/24 10/03/24 03:51 04:43 04:48 WBC 19.6 H RBC 3.57 L Hgb 9.1 L Hct 29.6 L MCV 82.9 MCH 25.5 L MCHC 30.7 L RDW 15.1 H Plt Count 229 MPV 10.5 H Immature Gran % (Auto) 0.6 H Neut % (Auto) 79.7 H Lymph % (Auto) 8.1 L [place] % (Auto) 11.4 H Eos % (Auto) 0.0 Baso % (Auto) 0.2 Lymph # (Auto) 1.60 [place] # (Auto) 2.2 H Eos # (Auto) 0.0 Baso # (Auto) 0.0 Abs Immat Gran (auto) 0.12 H Absolute Neuts (auto) 15.7 H Absolute Nucleated RBC 0.000 Nucleated RBC % 0.0 Sodium 140 Potassium 4.8 Chloride 112 H Carbon Dioxide 15 L Anion Gap 13 H BUN 13 Creatinine 0.59 L Estim Creat Clear Calc 96 Estimated GFR > 60 Glucose 210 H POC Capillary Glucose 192 H 237 H Lactic Acid Calcium 9.2 Phosphorus 3.1 Magnesium 1.7 Iron TIBC % Saturation Ferritin Total Bilirubin 0.8 AST 41 H ALT 29 Alkaline Phosphatase 88 Total Protein 6.0 L Albumin 3.5 Urine Color Urine Appearance Urine pH Ur Specific [place] Urine Protein Urine Glucose (UA) Urine Ketones Ur Blood (Man) Urine Nitrate Urine Bilirubin Urine Urobilinogen Leukocyte Esterase Rfl Nasal MRSA (PCR) 10/03/24 10/03/24 10/03/24 05:49 06:48 07:45 WBC RBC Hgb Hct MCV MCH MCHC RDW Plt Count MPV Immature Gran % (Auto) Neut % (Auto) Lymph % (Auto) [place] % (Auto) Eos % (Auto) Baso % (Auto) Lymph # (Auto) [place] # (Auto) Eos # (Auto) Baso # (Auto) Abs Immat Gran (auto) Absolute Neuts (auto) Absolute Nucleated RBC Nucleated RBC % Sodium Potassium Chloride Carbon Dioxide Anion Gap BUN Creatinine Estim Creat Clear Calc Estimated GFR Glucose POC Capillary Glucose 323 H 268 H 207 H Lactic Acid Calcium Phosphorus Magnesium Iron TIBC % Saturation Ferritin Total Bilirubin AST ALT Alkaline Phosphatase Total Protein Albumin Urine Color Urine Appearance Urine pH Ur Specific [place] Urine Protein Urine Glucose (UA) Urine Ketones Ur Blood (Man) Urine Nitrate Urine Bilirubin Urine Urobilinogen Leukocyte Esterase Rfl Nasal MRSA (PCR) 10/03/24 10/03/24 10/03/24 08:49 08:50 09:07 WBC RBC Hgb Hct MCV MCH MCHC RDW Plt Count MPV Immature Gran % (Auto) Neut % (Auto) Lymph % (Auto) [place] % (Auto) Eos % (Auto) Baso % (Auto) Lymph # (Auto) [place] # (Auto) Eos # (Auto) Baso # (Auto) Abs Immat Gran (auto) Absolute Neuts (auto) Absolute Nucleated RBC Nucleated RBC % Sodium 142 Potassium 4.0 Chloride 111 H Carbon Dioxide 18 L Anion Gap 13 H BUN 13 Creatinine 0.53 L Estim Creat Clear Calc 105 Estimated GFR > 60 Glucose 151 H POC Capillary Glucose 150 H Lactic Acid 1.2 Calcium 9.2 Phosphorus Magnesium Iron TIBC % Saturation Ferritin Total Bilirubin AST ALT Alkaline Phosphatase Total Protein Albumin Urine Color Urine Appearance Urine pH Ur Specific [place] Urine Protein Urine Glucose (UA) Urine Ketones Ur Blood (Man) Urine Nitrate Urine Bilirubin Urine Urobilinogen Leukocyte Esterase Rfl Nasal MRSA (PCR) 10/03/24 09:59 WBC RBC Hgb Hct MCV MCH MCHC RDW Plt Count MPV Immature Gran % (Auto) Neut % (Auto) Lymph % (Auto) [place] % (Auto) Eos % (Auto) Baso % (Auto) Lymph # (Auto) [place] # (Auto) Eos # (Auto) Baso # (Auto) Abs Immat Gran (auto) Absolute Neuts (auto) Absolute Nucleated RBC Nucleated RBC % Sodium Potassium Chloride Carbon Dioxide Anion Gap BUN Creatinine Estim Creat Clear Calc Estimated GFR Glucose POC Capillary Glucose 132 H Lactic Acid Calcium Phosphorus Magnesium Iron TIBC % Saturation Ferritin Total Bilirubin AST ALT Alkaline Phosphatase Total Protein Albumin Urine Color Urine Appearance Urine pH Ur Specific [place] Urine Protein Urine Glucose (UA) Urine Ketones Ur Blood (Man) Urine Nitrate Urine Bilirubin Urine Urobilinogen Leukocyte Esterase Rfl Nasal MRSA (PCR) Quality VTE Prophylaxis VTE prophylaxis: pharmacologic ordered
[2024-10-03] MEDS: INSULIN HUMAN REGULAR (*BKC) 100 UNITS in SODIUM CHLORIDE 0.9% IV 99 ML IV CONT (11:03)
[2024-10-03] MEDS: SCOPOLAMINE 1 MG PATCH 1 PATCH TRANSDERM (11:46)
[2024-10-03 11:56] LABS: Glucose Point of Care 180 mg/dl (65-105)
[2024-10-03] MEDS: PROCHLORPERAZINE EDISYLATE 10 MG/2 ML VIAL IV PUSH ×3 (11:58→20:49)
[2024-10-03 12:58] LABS: Anion Gap 11 mmol/L (4-12); Blood Urea Nitrogen 11 mg/dL (7-17); Calcium 8.8 mg/dL (8.4-10.2); Carbon Dioxide 19 mmol/L (22-30); Chloride 109 mmol/L (98-107); Estimated CRCL calculation 107 ml/min; Estimated Glomerular Filt Rate > 60; Glucose 179 mg/dL (65-110); Sodium 139 mmol/L (137-145)
[2024-10-03 13:10] LABS: Glucose Point of Care 207 mg/dl (65-105)
[2024-10-03] MEDS: INSULIN GLARGINE (*BKC) 100 UNITS/ML 25 UNITS SUB-Q (13:21)
[2024-10-03 14:05] LABS: Glucose Point of Care 207 mg/dl (65-105)
[2024-10-03 15:03] LABS: Glucose Point of Care 204 mg/dl (65-105)
[2024-10-03 16:01] LABS: Glucose Point of Care 196 mg/dl (65-105)
[2024-10-03] MEDS: INSULIN ASPART (*BKC) 100 UNITS/ML SUB-Q (18:12)
[2024-10-03 18:17] LABS: Glucose Point of Care 257 mg/dl (65-105)
[2024-10-03 20:37] LABS: Glucose Point of Care 170 mg/dl (65-105)
[2024-10-03 23:28] LABS: Glucose Point of Care 276 mg/dl (65-105)
[2024-10-03] MEDS: CALCIUM CARBONATE (TUMS) 500 MG (200 MG ELEMENTAL) PO (23:28)
[2024-10-04] VITALS (13 sets, daily range): BP systolic 141–174; BP diastolic 54–97; PULSE 111–127; RESP 18–26; TEMP 36.6–37.1; O2SAT 96–99
[2024-10-04] MEDS: PROCHLORPERAZINE EDISYLATE 10 MG/2 ML VIAL IV PUSH ×5 (00:52→20:28)
[2024-10-04 00:56] LABS: Glucose Point of Care 308 mg/dl (65-105)
[2024-10-04 01:53] LABS: Basophils Percent Auto 0.1 % (0.2-1.2); Hematocrit 30.2 % (37.0-47.0); Hemoglobin 9.8 g/dL (12.0-15.0); Immature Granulocyte Absolute 0.05 K/mm3 (0.00-0.031); Immature Granulocyte Percent A 0.4 % (0-0.5); Lymphocytes Percent Auto 5.2 % (18.3-44.2); Mean Corpuscular HGB Conc 32.5 g/dl (32-36); Mean Corpuscular Hemoglobin 25.9 pg (26-34); Mean Corpuscular Volume 79.9 fl (80-100); Mean Platelet Volume 10.9 fl (7.4-10.4); Monocytes Absolute Auto 0.7 K/mm3 (0.1-0.6); Monocytes Percent Auto 4.9 % (2.6-8.5); Neutrophils Absolute Auto 11.9 K/mm3 (1.3-6.7); Neutrophils Percent Auto 89.4 % (45.5-73.1); Platelet Count Result 218 k/mm3 (150-375); Red Blood Count 3.78 M/mm3 (4.2-5.4); Red Cell Distribution Width 15.6 % (11.5-14.5); White Blood Count 13.4 K/mm3 (4.5-10.0)
[2024-10-04 02:11] LABS: Alanine Aminotransferase 43 U/L (6-35); Albumin Level 3.8 g/dL (3.5-5.1); Alkaline Phosphatase 106 U/L (38-126); Anion Gap 21 mmol/L (4-12); Aspartate Amino Transferase 50 U/L (14-36); Bilirubin,Total 1.1 mg/dL (0.2-1.3); Blood Urea Nitrogen 10 mg/dL (7-17); Calcium 9.3 mg/dL (8.4-10.2); Carbon Dioxide 13 mmol/L (22-30); Chloride 101 mmol/L (98-107); Estimated CRCL calculation 99 ml/min; Estimated Glomerular Filt Rate > 60; Glucose 318 mg/dL (65-110); Magnesium 1.6 mg/dL (1.6-2.3); Phosphorus 2.8 mg/dL (2.5-4.5); Potassium 4.5 mmol/L (3.4-5.0); Sodium 135 mmol/L (137-145)
[2024-10-04] MEDS: SODIUM CHLORIDE 0.9% IV 1,000 ML 999 ML IV CONT (03:19)
[2024-10-04] MEDS: SODIUM CHLORIDE 0.9% IV 1,000 ML 150 ML IV CONT (03:23)
[2024-10-04] MEDS: INSULIN HUMAN REGULAR (*BKC) 100 UNITS in SODIUM CHLORIDE 0.9% IV 99 ML 7 UNITS IV CONT (03:23)
[2024-10-04 03:33] LABS: Glucose Point of Care 330 mg/dl (65-105)
[2024-10-04] MEDS: KCL 20 MEQ/D5/0.45% SOD CHL 1,000 ML 150 ML IV CONT ×3 (04:27→18:33)
[2024-10-04 04:32] LABS: Glucose Point of Care 223 mg/dl (65-105)
[2024-10-04] MEDS: metroNIDAZOLE 500 MG/ISO 100ML 500 MG/100 ML BAG 100 MG IVPB ×3 (05:02→21:36)
[2024-10-04] MEDS: CALCIUM CARBONATE (TUMS) 500 MG (200 MG ELEMENTAL) PO ×4 (05:03→21:37)
[2024-10-04] MEDS: CAPSAICIN 0.025% CREAM 60 GM TUBE 1 APPLIC TOPICAL ×3 (05:03→17:41)
[2024-10-04] MEDS: METOCLOPRAMIDE HCL INJ 10 MG/2 ML VIAL IV PUSH (05:03)
[2024-10-04 05:38] LABS: Glucose Point of Care 174 mg/dl (65-105)
[2024-10-04 06:41] LABS: Anion Gap 17 mmol/L (4-12); Blood Urea Nitrogen 9 mg/dL (7-17); Calcium 9.1 mg/dL (8.4-10.2); Carbon Dioxide 15 mmol/L (22-30); Chloride 105 mmol/L (98-107); Estimated CRCL calculation 109 ml/min; Estimated Glomerular Filt Rate > 60; Glucose 167 mg/dL (65-110); Magnesium 1.5 mg/dL (1.6-2.3); Phosphorus 2.1 mg/dL (2.5-4.5); Potassium 3.7 mmol/L (3.4-5.0); Sodium 137 mmol/L (137-145)
[2024-10-04 06:46] LABS: Glucose Point of Care 184 mg/dl (65-105)
[2024-10-04 07:30] LABS: Glucose Point of Care 198 mg/dl (65-105)
[2024-10-04 08:37] LABS: Glucose Point of Care 242 mg/dl (65-105)
[2024-10-04] MEDS: PANTOPRAZOLE SODIUM IV 40 MG VIAL IV PUSH (09:02)
[2024-10-04] MEDS: PROMETHAZINE HCL 25 MG/ML AMPUL 12.5 MG IV PUSH ×2 (09:02→18:34)
[2024-10-04] MEDS: cefTRIAXone 2 GM/NS 100 ML 2 GM/100 ML BAG IVPB (09:03)
[2024-10-04] MEDS: POTASSIUM PHOS,M-BASIC-D-BASIC 15 MMOL in SODIUM CHLORIDE 0.9% IV 250 ML 63.75 MMOL IVPB (09:40)
[2024-10-04] MEDS: MAGNESIUM SULF 2 GM/WATER 50ML 2 GM/50 ML BAG IVPB (09:40)
[2024-10-04 09:56] LABS: Glucose Point of Care 218 mg/dl (65-105)
[2024-10-04 10:27] LABS: Anion Gap 16 mmol/L (4-12); Blood Urea Nitrogen 7 mg/dL (7-17); Calcium 8.8 mg/dL (8.4-10.2); Carbon Dioxide 16 mmol/L (22-30); Chloride 102 mmol/L (98-107); Estimated CRCL calculation 122 ml/min; Estimated Glomerular Filt Rate > 60; Glucose 204 mg/dL (65-110); Sodium 134 mmol/L (137-145)
[2024-10-04 10:38] LABS: Glucose Point of Care 232 mg/dl (65-105)
--- NOTE | 2024-10-04 11:13 | P.PNINT_ITS ---
Progress Note: A&P Assessment and Plan (1) DKA (diabetic ketoacidosis): Qualifiers: Diabetes mellitus complication detail: without coma Diabetes mellitus type: type 1 Qualified Code(s): E10.10 - Type 1 diabetes mellitus with ketoacidosis without coma Code(s): E11.10 - Type 2 diabetes mellitus with ketoacidosis without coma Status: Acute Assessment and Plan: 10/02: Patient presented with nausea, vomiting, diarrhea, abdominal pain -states that her insulin pump fell off or is malfunctioning -in the ER patient was found to be in severe anion gap metabolic acidosis with hyperglycemia -diagnosed with diabetic ketoacidosis, given 3 L IV fluid bolus and started on insulin infusion per DKA protocol and transferred to the ICU for further management. -10/02: will give additional 1 L IV fluid bolus in the ICU (they will be a total of 4 L IV fluid bolus since admission) -continue insulin infusion per DKA protocol -10/03: Anion gap had closed, patient transitioned to long-acting insulin and sliding scale insulin. Late in the evening on the same day she continue have severe nausea and vomiting, BMP showed elevated anion gap and metabolic acidosis. 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 Correlate clinically. Diffuse hepatic steatosis. Normal appendix. -continue ceftriaxone and metronidazole (10/02) -continue Dilaudid for pain -10/02: Continues to have abdominal pain, obstructive series showed normal bowel gas pattern, no free intraperitoneal gas. (4) Cannabinoid hyperemesis syndrome: Code(s): R11.2 - Nausea with vomiting, unspecified; F12.90 - Cannabis use, unspecified, uncomplicated Status: Acute Assessment and Plan: Patient has a history of cannabinoid hyperemesis syndrome, continues to smoke marijuana on a daily basis -have counseled patient on cessation of marijuana usage -discontinue Zofran and Reglan -10/02: gave her dose of Ativan this morning with some improvement -continue scopolamine patch for intractable vomiting -she is also on capsaicin cream to the abdomen, for cannabinoid hyperemesis syndrome -currently on Compazine. Patient given 1 dose of Phenergan which helped -will give additional Ativan IV x1 dose -hold Zofran and Reglan (5) Tobacco abuse: Code(s): Z72.0 - Tobacco use Status: Acute Assessment and Plan: Continues to smoke 1 packet per day, counseled patient on cessation of tobacco use (6) Hypomagnesemia: Code(s): E83.42 - Hypomagnesemia Status: Acute Assessment and Plan: Replace magnesium (7) Gastroparesis: Code(s): K31.84 - Gastroparesis Status: Acute Assessment and Plan: Hold Reglan and Zofran since both of them on our helping her nausea and vomiting. Will monitor QTc -continue Compazine Plan DVT prophylaxis: Lovenox Stress ulcer prophylaxis: Protonix Nutrition: NPO except ice chips Code Status: Full code Critical Care Time Spent: 33 minutes Discussed with patient updated with her condition and plan of care. I answered all questions Due to a high probability of clinically significant, life threatening deterioration, the patient required my highest level of preparedness to intervene emergently and I personally spent this critical care time directly and personally managing the patient. This critical care time included obtaining a history; examining the patient; pulse oximetry; ordering and review of studies; arranging urgent treatment with development of a management plan; evaluation of patient's response to treatment; frequent reassessment; and discussions with other providers. It was exclusive of separately billable procedures and treating other patients and teaching time. Please see Assessment and Plan section and the rest of the note for further information on patient assessment and treatment This dictation may have been done utilizing a voice recognition system. Attempts have been made to correct errors. However, there may be uncorrected grammatical, spelling, and recognitions errors present. Subjective Date/time seen: 10/04/24 11:13 Interval history: Reason for consult: Diabetic ketoacidosis, hyperglycemia, metabolic acidosis, infectious/inflammatory colitis, marijuana use 10/04/2024: Patient seen and examined this morning in the ICU. Patient was transition to long-acting insulin and sliding scale insulin yesterday on 10/03/2024, later in the evening patient continued to have severe nausea vomiting, repeat BMP showed opening of anion gap and anion gap metabolic acidosis. Give additional IV fluid bolus in restarted on insulin infusion. -this morning continues to complain of nausea and vomiting, abdominal pain is much better. Zofran and Reglan not helping much, she is on Compazine. Requesting Phenergan which she states sometimes helps. Patient also on a scopolamine patch. She did respond well to some Ativan given yesterday. Urine output has been adequate, currently on room air with adequate O2 sats, sinus tachycardia. Remains on insulin infusion at this time per DKA protocol Review of Systems Review of Systems: All systems reviewed & are unremarkable except as noted in HPI and below Exam Narrative: General: Pleasant female, ill-appearing, continues to have nausea and vomiting HEENT:? Pupils equal and reactive, sclera is clear, dry oral mucosa Neck:? Supple Respiratory: clear to auscultation, adequate air entry, no wheezing Cardiac:? Sinus tachycardia, S1-S2 is normal Abdomen:? Soft, nondistended, abdominal tenderness much improved, normoactive bowel sounds Extremities:? No edema, palpable pedal pulse Neuro:? Patient is awake, alert, oriented, able to answer questions appropriately and follows simple commands in all extremities Skin:? Warm and dry Psych:? Normal mentation and affect Objective Data Vital Signs Vital Signs: Vital Signs - 24 hr 10/03/24 12:00 10/03/24 12:00 10/03/24 12:00 Temperature 97.4 F L Pulse Rate 104 H 111 H Respiratory Rate 18 Blood Pressure 149/81 H Pulse Oximetry 98 Oxygen Delivery Room Air Oxygen Flow Rate 10/03/24 14:00 10/03/24 14:00 10/03/24 16:00 Temperature 98.7 F Pulse Rate 104 H 104 H 97 Respiratory Rate 14 21 H Blood Pressure 143/83 H 145/82 H Pulse Oximetry 94 95 Oxygen Delivery Oxygen Flow Rate 10/03/24 16:00 10/03/24 16:00 10/03/24 18:00 Temperature Pulse Rate 111 H 109 H Respiratory Rate Blood Pressure Pulse Oximetry Oxygen Delivery Room Air Oxygen Flow Rate 10/03/24 18:00 10/03/24 19:30 10/03/24 20:00 Temperature Pulse Rate 109 H Respiratory Rate 21 H Blood Pressure 162/86 H Pulse Oximetry 97 92 93 Oxygen Delivery Nasal Cannula Nasal Cannula Oxygen Flow Rate 4 4 10/03/24 20:00 10/03/24 20:00 10/03/24 22:00 Temperature 98.5 F Pulse Rate 117 H 103 H 120 H Respiratory Rate 22 H Blood Pressure 160/95 H Pulse Oximetry 94 Oxygen Delivery Oxygen Flow Rate 10/03/24 22:00 10/03/24 22:00 10/03/24 23:28 Temperature Pulse Rate 120 H Respiratory Rate 25 H Blood Pressure 147/87 H Pulse Oximetry 97 97 98 Oxygen Delivery Room Air Room Air Oxygen Flow Rate 10/04/24 00:00 10/04/24 00:00 10/04/24 02:00 Temperature 98.8 F Pulse Rate 120 H 120 H 122 H Respiratory Rate 21 H Blood Pressure 155/90 H Pulse Oximetry 98 Oxygen Delivery Oxygen Flow Rate 10/04/24 02:00 10/04/24 04:00 10/04/24 04:00 Temperature 97.9 F Pulse Rate 127 H 122 H Respiratory Rate 26 H 21 H Blood Pressure 158/96 H 174/87 H Pulse Oximetry 97 99 99 Oxygen Delivery Room Air Oxygen Flow Rate 10/04/24 04:00 10/04/24 06:00 10/04/24 06:00 Temperature Pulse Rate 126 H 117 H 117 H Respiratory Rate 24 H Blood Pressure 158/54 H Pulse Oximetry 98 Oxygen Delivery Oxygen Flow Rate 10/04/24 08:00 10/04/24 10:00 Temperature 97.9 F Pulse Rate 120 H 119 H Respiratory Rate 26 H 26 H Blood Pressure 157/79 H 153/94 H Pulse Oximetry 98 99 Oxygen Delivery Oxygen Flow Rate Intake/Output Intake/Output: Intake & Output 10/01/24 10/02/24 10/03/24 10/04/24 23:59 23:59 23:59 23:59 Intake Total 6233.7 4970.9 1580.3 Output Total 2600 2200 3200 Balance 3633.7 2770.9 -1619.7 Meds/Results Medications: Active Medications Generic Name Dose Route Start Last Admin Trade Name Freq PRN Reason Stop Dose Admin Calcium Carbonate 200 mg 10/03/24 23:14 10/04/24 05:03 Calcium Carbonate (Tums) 500 Mg (200 Mg Elemental) PO 200 mg Q4HR PRN Administration Indigestion Capsaicin 1 applic 10/03/24 06:00 10/04/24 05:03 Capsaicin 0.025% Cream 60 Gm Tube TOPICAL 1 applic Q6HR KARRIE Administration Dextrose 12.5 gm 10/03/24 13:10 Dextrose 50% 25 Gm/50 Ml Syringe IV PUSH PRN PRN Hypoglycemia Protocol Enoxaparin Sodium 40 mg 10/02/24 13:30 10/04/24 09:09 Enoxaparin 40 Mg/0.4 Ml Syringe SUB-Q Not Given DAILY KARRIE Glucagon 1 mg 10/03/24 13:10 Glucagon For Inj 1 Mg Vial IM PRN PRN Hypoglycemia Protocol Glucose 15 gm 10/03/24 13:10 Glucose Oral Gel 15 Gm Of Glucse In 37.5 Gm Tube PO PRN PRN Hypoglycemia Protocol Hydromorphone HCl 0.5 mg 10/03/24 08:38 10/03/24 18:17 Hydromorphone Hcl Inj (*Crx) 1 Mg/Ml Syr IV PUSH 0.5 mg Q3H PRN Administration Pain Rated 7-10 Ceftriaxone Sodium 2 gm in 100 mls @ 200 mls/hr 10/03/24 09:00 10/04/24 09:35 Rocephin 2 Gm/Ns 100 Ml IVPB Infused Q24H KARRIE Infusion Metronidazole 500 mg in 100 mls @ 100 mls/hr 10/02/24 16:00 10/04/24 06:02 Flagyl 500 Mg/Iso Soln 100 Ml IVPB Infused Q8HR KARRIE Infusion Dextrose 1,000 mls @ 100 mls/hr 10/03/24 13:10 Dextrose 5% 1,000 Ml IVPB PRN PRN Hypoglycemia Protocol Insulin Human Regular 100 100 mls @ 1 mls/hr 10/04/24 02:40 10/04/24 10:35 units/ Sodium Chloride IV CONT 1 units/hr .Q24H KARRIE 1 mls/hr Titration Protocol 1 UNITS/HR Sodium Chloride 1,000 mls @ 150 mls/hr 10/04/24 03:05 10/04/24 04:27 Normal Saline Iv IV CONT 0 mls/hr .Q6H40M KARRIE Infusion Potassium Chloride/Dextrose/Sod Cl 1,000 mls @ 150 mls/hr 10/04/24 03:05 10/04/24 04:27 Kcl 20 Meq/D5/0.45% Sod Chl IV CONT 150 mls/hr .Q6H40M KARRIE Administration Dextrose/Sodium Chloride 1,000 mls @ 150 mls/hr 10/04/24 03:05 Dextrose 5% Sodium Chloride 0.45% IV CONT .Q6H40M KARRIE Potassium Phosphate 15 mmol/ 255 mls @ 63.75 mls/hr 10/04/24 08:30 10/04/24 09:40 Sodium Chloride IVPB 10/04/24 12:29 63.75 mls/hr ONCE ONE Administration Insulin Aspart 4 - 8 units 10/03/24 17:00 10/03/24 18:12 Insulin Aspart (*Bkc) 100 Units/Ml SUB-Q 5 units TIDWM KARRIE Administration Protocol Insulin Aspart 2 - 4 units 10/03/24 21:00 10/03/24 20:52 Insulin Aspart (*Bkc) 100 Units/Ml SUB-Q Not Given HS [facility] Protocol Insulin Glargine 25 units 10/04/24 10:55 Insulin Glargine (*Bkc) 100 Units/Ml SUB-Q DAILY KARRIE Metoclopramide HCl 10 mg 10/03/24 18:00 10/04/24 05:03 Metoclopramide Hcl Inj 10 Mg/2 Ml Vial IV PUSH 10 mg Q6HR KARRIE Administration Pantoprazole Sodium 40 mg 10/02/24 13:30 10/04/24 09:02 Pantoprazole Sodium Iv 40 Mg Vial IV PUSH 40 mg QAM KARRIE Administration Prochlorperazine Edisylate 10 mg 10/03/24 08:37 10/04/24 05:03 Prochlorperazine Edisylate 10 Mg/2 Ml Vial IV PUSH 10 mg Q4H PRN Administration Nausea And Vomiting Scopolamine 1 patch 10/03/24 11:01 10/03/24 11:46 Scopolamine 1 Mg Patch TRANSDERM 1 patch Q72HR KARRIE Administration Radiology Results: ITS Impressions Chest X-Ray 10/02/24 06:45 Impression: Normal chest. Abdomen/Pelvis CT 10/02/24 07:39 Impression: Questionable infectious/inflammatory colitis of the cecum/proximal ascending colon versus underdistention. Correlate clinically. Diffuse hepatic steatosis. Normal appendix. Abdomen X-Ray 10/03/24 08:38 IMPRESSION: 1. Normal bowel gas pattern. Labs Labs: Laboratory Results - last 24 hr 10/03/24 10/03/24 10/03/24 11:45 12:36 13:05 WBC RBC Hgb Hct MCV MCH MCHC RDW Plt Count MPV Immature Gran % (Auto) Neut % (Auto) Lymph % (Auto) [place] % (Auto) Eos % (Auto) Baso % (Auto) Lymph # (Auto) [place] # (Auto) Eos # (Auto) Baso # (Auto) Abs Immat Gran (auto) Absolute Neuts (auto) Absolute Nucleated RBC Nucleated RBC % Sodium 139 Potassium 4.0 Chloride 109 H Carbon Dioxide 19 L Anion Gap 11 BUN 11 Creatinine 0.52 L Estim Creat Clear Calc 107 Estimated GFR > 60 Glucose 179 H POC Capillary Glucose 180 H 207 H Calcium 8.8 Phosphorus Magnesium Total Bilirubin AST ALT Alkaline Phosphatase Total Protein Albumin 10/03/24 10/03/24 10/03/24 14:02 15:01 15:58 WBC RBC Hgb Hct MCV MCH MCHC RDW Plt Count MPV Immature Gran % (Auto) Neut % (Auto) Lymph % (Auto) [place] % (Auto) Eos % (Auto) Baso % (Auto) Lymph # (Auto) [place] # (Auto) Eos # (Auto) Baso # (Auto) Abs Immat Gran (auto) Absolute Neuts (auto) Absolute Nucleated RBC Nucleated RBC % Sodium Potassium Chloride Carbon Dioxide Anion Gap BUN Creatinine Estim Creat Clear Calc Estimated GFR Glucose POC Capillary Glucose 207 H 204 H 196 H Calcium Phosphorus Magnesium Total Bilirubin AST ALT Alkaline Phosphatase Total Protein Albumin 10/03/24 10/03/24 10/03/24 18:12 20:34 23:25 WBC RBC Hgb Hct MCV MCH MCHC RDW Plt Count MPV Immature Gran % (Auto) Neut % (Auto) Lymph % (Auto) [place] % (Auto) Eos % (Auto) Baso % (Auto) Lymph # (Auto) [place] # (Auto) Eos # (Auto) Baso # (Auto) Abs Immat Gran (auto) Absolute Neuts (auto) Absolute Nucleated RBC Nucleated RBC % Sodium Potassium Chloride Carbon Dioxide Anion Gap BUN Creatinine Estim Creat Clear Calc Estimated GFR Glucose POC Capillary Glucose 257 H 170 H 276 H Calcium Phosphorus Magnesium Total Bilirubin AST ALT Alkaline Phosphatase Total Protein Albumin 10/04/24 10/04/24 10/04/24 00:50 01:28 03:23 WBC 13.4 H RBC 3.78 L Hgb 9.8 L Hct 30.2 L MCV 79.9 L MCH 25.9 L MCHC 32.5 RDW 15.6 H Plt Count 218 MPV 10.9 H Immature Gran % (Auto) 0.4 Neut % (Auto) 89.4 H Lymph % (Auto) 5.2 L [place] % (Auto) 4.9 Eos % (Auto) 0.0 Baso % (Auto) 0.1 L Lymph # (Auto) 0.70 L [place] # (Auto) 0.7 H Eos # (Auto) 0.0 Baso # (Auto) 0.0 Abs Immat Gran (auto) 0.05 H Absolute Neuts (auto) 11.9 H Absolute Nucleated RBC 0.000 Nucleated RBC % 0.0 Sodium 135 L Potassium 4.5 Chloride 101 Carbon Dioxide 13 L Anion Gap 21 H BUN 10 Creatinine 0.57 L Estim Creat Clear Calc 99 Estimated GFR > 60 Glucose 318 H POC Capillary Glucose 308 H 330 H Calcium 9.3 Phosphorus 2.8 Magnesium 1.6 Total Bilirubin 1.1 AST 50 H ALT 43 H Alkaline Phosphatase 106 Total Protein 7.0 Albumin 3.8 10/04/24 10/04/24 10/04/24 04:27 05:33 06:22 WBC RBC Hgb Hct MCV MCH MCHC RDW Plt Count MPV Immature Gran % (Auto) Neut % (Auto) Lymph % (Auto) [place] % (Auto) Eos % (Auto) Baso % (Auto) Lymph # (Auto) [place] # (Auto) Eos # (Auto) Baso # (Auto) Abs Immat Gran (auto) Absolute Neuts (auto) Absolute Nucleated RBC Nucleated RBC % Sodium 137 Potassium 3.7 Chloride 105 Carbon Dioxide 15 L Anion Gap 17 H BUN 9 Creatinine 0.51 L Estim Creat Clear Calc 109 Estimated GFR > 60 Glucose 167 H POC Capillary Glucose 223 H 174 H Calcium 9.1 Phosphorus 2.1 L Magnesium 1.5 L Total Bilirubin AST ALT Alkaline Phosphatase Total Protein Albumin 10/04/24 10/04/24 10/04/24 06:37 07:28 08:33 WBC RBC Hgb Hct MCV MCH MCHC RDW Plt Count MPV Immature Gran % (Auto) Neut % (Auto) Lymph % (Auto) [place] % (Auto) Eos % (Auto) Baso % (Auto) Lymph # (Auto) [place] # (Auto) Eos # (Auto) Baso # (Auto) Abs Immat Gran (auto) Absolute Neuts (auto) Absolute Nucleated RBC Nucleated RBC % Sodium Potassium Chloride Carbon Dioxide Anion Gap BUN Creatinine Estim Creat Clear Calc Estimated GFR Glucose POC Capillary Glucose 184 H 198 H 242 H Calcium Phosphorus Magnesium Total Bilirubin AST ALT Alkaline Phosphatase Total Protein Albumin 10/04/24 10/04/24 10/04/24 09:34 10:12 10:36 WBC RBC Hgb Hct MCV MCH MCHC RDW Plt Count MPV Immature Gran % (Auto) Neut % (Auto) Lymph % (Auto) [place] % (Auto) Eos % (Auto) Baso % (Auto) Lymph # (Auto) [place] # (Auto) Eos # (Auto) Baso # (Auto) Abs Immat Gran (auto) Absolute Neuts (auto) Absolute Nucleated RBC Nucleated RBC % Sodium 134 L Potassium 4.0 Chloride 102 Carbon Dioxide 16 L Anion Gap 16 H BUN 7 Creatinine 0.45 L Estim Creat Clear Calc 122 Estimated GFR > 60 Glucose 204 H POC Capillary Glucose 218 H 232 H Calcium 8.8 Phosphorus Magnesium Total Bilirubin AST ALT Alkaline Phosphatase Total Protein Albumin Quality VTE Prophylaxis VTE prophylaxis: pharmacologic ordered
[2024-10-04] MEDS: INSULIN GLARGINE (*BKC) 100 UNITS/ML 25 UNITS SUB-Q (11:35)
[2024-10-04 11:38] LABS: Glucose Point of Care 232 mg/dl (65-105)
[2024-10-04] MEDS: HYDROmorphone HCL INJ (*CRX) 1 MG/ML SYR 0.5 MG IV PUSH ×2 (12:31→21:37)
[2024-10-04 12:38] LABS: Glucose Point of Care 220 mg/dl (65-105)
[2024-10-04 13:33] LABS: Glucose Point of Care 193 mg/dl (65-105)
[2024-10-04] MEDS: LORazepam INJ (*CRX) 2 MG/ML VIAL 1 MG IV PUSH (14:45)
[2024-10-04 14:51] LABS: Anion Gap 12 mmol/L (4-12); Blood Urea Nitrogen 5 mg/dL (7-17); Calcium 8.9 mg/dL (8.4-10.2); Carbon Dioxide 22 mmol/L (22-30); Chloride 100 mmol/L (98-107); Estimated CRCL calculation 122 ml/min; Estimated Glomerular Filt Rate > 60; Glucose 212 mg/dL (65-110); Sodium 134 mmol/L (137-145)
[2024-10-04 14:54] LABS: Glucose Point of Care 217 mg/dl (65-105)
[2024-10-04 15:45] LABS: Glucose Point of Care 172 mg/dl (65-105)
[2024-10-04 16:48] LABS: Glucose Point of Care 189 mg/dl (65-105)
[2024-10-04 17:42] LABS: Glucose Point of Care 204 mg/dl (65-105)
[2024-10-04 18:45] LABS: Glucose Point of Care 214 mg/dl (65-105)
[2024-10-04 18:55] LABS: Anion Gap 12 mmol/L (4-12); Blood Urea Nitrogen 4 mg/dL (7-17); Calcium 8.9 mg/dL (8.4-10.2); Carbon Dioxide 24 mmol/L (22-30); Chloride 98 mmol/L (98-107); Estimated CRCL calculation 127 ml/min; Estimated Glomerular Filt Rate > 60; Glucose 193 mg/dL (65-110); Potassium 3.5 mmol/L (3.4-5.0); Sodium 134 mmol/L (137-145)
[2024-10-04 19:26] LABS: Glucose Point of Care 203 mg/dl (65-105)
[2024-10-04 20:33] LABS: Glucose Point of Care 210 mg/dl (65-105)
[2024-10-04 21:45] LABS: Glucose Point of Care 207 mg/dl (65-105)
[2024-10-04 22:32] LABS: Glucose Point of Care 201 mg/dl (65-105)
[2024-10-04 22:45] LABS: Anion Gap 10 mmol/L (4-12); Blood Urea Nitrogen 3 mg/dL (7-17); Calcium 9.1 mg/dL (8.4-10.2); Carbon Dioxide 27 mmol/L (22-30); Chloride 96 mmol/L (98-107); Estimated CRCL calculation 129 ml/min; Estimated Glomerular Filt Rate > 60; Glucose 196 mg/dL (65-110); Potassium 3.4 mmol/L (3.4-5.0); Sodium 133 mmol/L (137-145)
[2024-10-04 23:30] LABS: Glucose Point of Care 208 mg/dl (65-105)
[2024-10-05] VITALS (13 sets, daily range): BP systolic 141–158; BP diastolic 83–107; PULSE 103–126; RESP 16–26; TEMP 36.6–37.1; O2SAT 96–100
[2024-10-05] MEDS: KCL 20 MEQ/D5/0.45% SOD CHL 1,000 ML 150 ML IV CONT ×4 (00:34→21:12)
[2024-10-05 00:35] LABS: Glucose Point of Care 198 mg/dl (65-105)
[2024-10-05] MEDS: PROMETHAZINE HCL 25 MG/ML AMPUL 12.5 MG IV PUSH ×3 (00:35→19:28)
[2024-10-05 01:32] LABS: Glucose Point of Care 195 mg/dl (65-105)
[2024-10-05] MEDS: PROCHLORPERAZINE EDISYLATE 10 MG/2 ML VIAL IV PUSH ×5 (02:23→21:12)
[2024-10-05 02:27] LABS: Glucose Point of Care 213 mg/dl (65-105)
[2024-10-05] MEDS: HYDROmorphone HCL INJ (*CRX) 1 MG/ML SYR 0.5 MG IV PUSH ×3 (02:28→23:13)
[2024-10-05] MEDS: CALCIUM CARBONATE (TUMS) 500 MG (200 MG ELEMENTAL) PO ×5 (02:31→19:28)
[2024-10-05 03:44] LABS: Glucose Point of Care 202 mg/dl (65-105)
[2024-10-05 04:34] LABS: Glucose Point of Care 207 mg/dl (65-105)
[2024-10-05 04:34] LABS: Basophils Percent Auto 0.2 % (0.2-1.2); Eosinophils Percent Auto 0.4 % (0-4.4); Hematocrit 33.3 % (37.0-47.0); Immature Granulocyte Absolute 0.02 K/mm3 (0.00-0.031); Immature Granulocyte Percent A 0.2 % (0-0.5); Lymphocytes Absolute Auto 1.29 K/mm3 (0.9-3.2); Lymphocytes Percent Auto 15.3 % (18.3-44.2); Mean Corpuscular Hemoglobin 25.2 pg (26-34); Mean Corpuscular Volume 76.4 fl (80-100); Mean Platelet Volume 9.3 fl (7.4-10.4); Monocytes Absolute Auto 1.1 K/mm3 (0.1-0.6); Monocytes Percent Auto 13.2 % (2.6-8.5); Neutrophils Percent Auto 70.7 % (45.5-73.1); Platelet Count Result 218 k/mm3 (150-375); Red Blood Count 4.36 M/mm3 (4.2-5.4); Red Cell Distribution Width 14.7 % (11.5-14.5); White Blood Count 8.4 K/mm3 (4.5-10.0)
[2024-10-05 04:46] LABS: Alanine Aminotransferase 35 U/L (6-35); Albumin Level 3.6 g/dL (3.5-5.1); Alkaline Phosphatase 85 U/L (38-126); Anion Gap 10 mmol/L (4-12); Aspartate Amino Transferase 27 U/L (14-36); Bilirubin,Total 1.1 mg/dL (0.2-1.3); Blood Urea Nitrogen 3 mg/dL (7-17); Calcium 9.2 mg/dL (8.4-10.2); Carbon Dioxide 25 mmol/L (22-30); Chloride 97 mmol/L (98-107); Estimated CRCL calculation 122 ml/min; Estimated Glomerular Filt Rate > 60; Glucose 214 mg/dL (65-110); Magnesium 1.5 mg/dL (1.6-2.3); Phosphorus 2.7 mg/dL (2.5-4.5); Potassium 3.8 mmol/L (3.4-5.0); Sodium 132 mmol/L (137-145)
[2024-10-05] MEDS: metroNIDAZOLE 500 MG/ISO 100ML 500 MG/100 ML BAG 100 MG IVPB ×3 (05:25→21:12)
[2024-10-05] MEDS: CAPSAICIN 0.025% CREAM 60 GM TUBE 1 APPLIC TOPICAL ×3 (05:26→23:14)
[2024-10-05 05:30] LABS: Glucose Point of Care 212 mg/dl (65-105)
[2024-10-05 06:41] LABS: Glucose Point of Care 211 mg/dl (65-105)
[2024-10-05 08:01] LABS: Glucose Point of Care 221 mg/dl (65-105)
[2024-10-05] MEDS: ENOXAPARIN 40 MG/0.4 ML SYRINGE SUB-Q (08:54)
[2024-10-05] MEDS: cefTRIAXone 2 GM/NS 100 ML 2 GM/100 ML BAG IVPB (08:54)
[2024-10-05] MEDS: PANTOPRAZOLE SODIUM IV 40 MG VIAL IV PUSH (08:56)
--- NOTE | 2024-10-05 09:26 | P.PNINT_ITS ---
Progress Note: A&P Assessment and Plan (1) Cannabinoid hyperemesis syndrome: Code(s): R11.2 - Nausea with vomiting, unspecified; F12.90 - Cannabis use, unspecified, uncomplicated Status: Acute Assessment and Plan: Patient has a history of cannabinoid hyperemesis syndrome, continues to smoke marijuana on a daily basis -have counseled patient on cessation of marijuana usage -if vomiting does not improve will try a dose of Ativan (-10/02: gave her dose of Ativan this morning with some improvement) -continue scopolamine patch for intractable vomiting -she is also on capsaicin cream to the abdomen, for cannabinoid hyperemesis syndrome -currently on Phenergan and Compazine -will restart Reglan -will add Benadryl, -Gi has been consulted (2) DKA (diabetic ketoacidosis): Qualifiers: Diabetes mellitus complication detail: without coma Diabetes mellitus type: type 1 Qualified Code(s): E10.10 - Type 1 diabetes mellitus with ketoacidosis without coma Code(s): E11.10 - Type 2 diabetes mellitus with ketoacidosis without coma Status: Acute Assessment and Plan: 10/02: Patient presented with nausea, vomiting, diarrhea, abdominal pain -states that her insulin pump fell off or is malfunctioning -in the ER patient was found to be in severe anion gap metabolic acidosis with hyperglycemia -diagnosed with diabetic ketoacidosis, given 3 L IV fluid bolus and started on insulin infusion per DKA protocol and transferred to the ICU for further management. -10/02: will give additional 1 L IV fluid bolus in the ICU (they will be a total of 4 L IV fluid bolus since admission) -continue insulin infusion per DKA protocol -10/03: Anion gap had closed, patient transitioned to long-acting insulin and sliding scale insulin. Late in the evening on the same day she continue have severe nausea and vomiting, BMP showed elevated anion gap and metabolic acidosis. Insulin infusion was restarted per DKA protocol -continue insulin infusion for now per DKA protocol 10/05: patient's anion gap is closed and his CO2 is 25. But continues to have intractable nausea and vomiting. Will continue insulin infusion for now as she is unable to take anything oral and I worry that she if she continues to have intractable vomiting, giving a long-acting insulin mid dropped her blood sugars and may cause hypoglycemia (3) Type 1 diabetes mellitus: Qualifiers: Diabetes mellitus complication status: with hyperglycemia Qualified Code(s): E10.65 - Type 1 diabetes mellitus with hyperglycemia Code(s): E10.9 - Type 1 diabetes mellitus without complications Status: Acute Assessment and Plan: Patient has a longstanding history of type 1 diabetes with neuropathy, gastroparesis -hemoglobin A1c is 8.2 this admit -consult informatics educator and dietitian (4) Colitis: Code(s): K52.9 - Noninfective gastroenteritis and colitis, unspecified Status: Acute Assessment and Plan: Patient also presented with abdominal pain, nausea and vomiting CT abdomen and pelvis: Questionable infectious/inflammatory colitis of the cecum/proximal ascending colon versus underdistention. Correlate clinically. Diffuse hepatic steatosis. Normal appendix. -continue ceftriaxone and metronidazole (10/02) -continue Dilaudid for pain -10/02: Continues to have abdominal pain, obstructive series showed normal bowel gas pattern, no free intraperitoneal gas. (5) Tobacco abuse: Code(s): Z72.0 - Tobacco use Status: Acute Assessment and Plan: Continues to smoke 1 packet per day, counseled patient on cessation of tobacco use (6) Hypomagnesemia: Code(s): E83.42 - Hypomagnesemia Status: Acute Assessment and Plan: Replace magnesium (7) Gastroparesis: Code(s): K31.84 - Gastroparesis Status: Acute Assessment and Plan: Will restart Reglan Plan DVT prophylaxis: Lovenox Stress ulcer prophylaxis: Protonix Nutrition: NPO except ice chips Code Status: Full code Critical Care Time Spent: 33 minutes Discussed with patient updated with her condition and plan of care. I answered all questions Due to a high probability of clinically significant, life threatening deterioration, the patient required my highest level of preparedness to intervene emergently and I personally spent this critical care time directly and personally managing the patient. This critical care time included obtaining a history; examining the patient; pulse oximetry; ordering and review of studies; arranging urgent treatment with development of a management plan; evaluation of patient's response to treatment; frequent reassessment; and discussions with other providers. It was exclusive of separately billable procedures and treating other patients and teaching time. Please see Assessment and Plan section and the rest of the note for further information on patient assessment and treatment This dictation may have been done utilizing a voice recognition system. Attempts have been made to correct errors. However, there may be uncorrected grammatical, spelling, and recognitions errors present. Subjective Date/time seen: 10/05/24 09:26 Interval history: Reason for consult: Diabetic ketoacidosis, hyperglycemia, metabolic acidosis, infectious/inflammatory colitis, marijuana use 10/05/2024: Patient seen and examined the ICU. Remains on insulin infusion at 1 unit/hour. Continues to have intractable nausea, vomiting, retching. Has been receiving antiemetics around the clock along with pain medications. BMP this morning shows her anion gap is closed with CO2 of 25. Urine output has been adequate, patient has been afebrile. Hemodynamically stable, denies any CP chest pain, shortness of breath. But continues to have abdominal pain and intractable nausea and vomiting She remains on insulin infusion per DKA protocol Review of Systems Review of Systems: All systems reviewed & are unremarkable except as noted in HPI and below Exam Narrative: General: Pleasant female, ill-appearing, continues to have nausea and vomiting HEENT:? Pupils equal and reactive, sclera is clear, dry oral mucosa Neck:? Supple Respiratory: clear to auscultation, adequate air entry, no wheezing Cardiac:? Sinus tachycardia, S1-S2 is normal Abdomen:? Soft, nondistended, abdominal tenderness much improved, normoactive bowel sounds Extremities:? No edema, palpable pedal pulse Neuro:? Patient is awake, alert, oriented, able to answer questions appropriately and follows simple commands in all extremities Skin:? Warm and dry Psych:? Normal mentation and affect Objective Data Vital Signs Vital Signs: Vital Signs - 24 hr 10/04/24 10:00 10/04/24 10:00 10/04/24 12:00 Temperature Pulse Rate 119 H 119 H Respiratory Rate 26 H Blood Pressure 153/94 H Pulse Oximetry 99 99 Oxygen Delivery Room Air 10/04/24 12:00 10/04/24 12:00 10/04/24 14:00 Temperature 98.2 F Pulse Rate 119 H 116 H 113 H Respiratory Rate 24 H Blood Pressure 157/97 H Pulse Oximetry 99 Oxygen Delivery 10/04/24 14:00 10/04/24 15:51 10/04/24 16:00 Temperature Pulse Rate 113 H 111 H Respiratory Rate 24 H Blood Pressure 141/85 H Pulse Oximetry 99 99 Oxygen Delivery Room Air 10/04/24 16:00 10/04/24 18:00 10/04/24 18:00 Temperature 98.1 F Pulse Rate 113 H 116 H 116 H Respiratory Rate 18 24 H Blood Pressure 156/91 H 152/91 H Pulse Oximetry 99 98 Oxygen Delivery 10/04/24 20:00 10/04/24 20:00 10/04/24 20:00 Temperature 98.0 F Pulse Rate 112 H 112 H Respiratory Rate 23 H Blood Pressure 148/94 H Pulse Oximetry 97 97 Oxygen Delivery Room Air 10/04/24 22:00 10/04/24 22:00 10/05/24 00:00 Temperature Pulse Rate 111 H 111 H Respiratory Rate 24 H Blood Pressure 157/93 H Pulse Oximetry 96 98 Oxygen Delivery Room Air 10/05/24 00:00 10/05/24 00:00 10/05/24 02:00 Temperature 97.8 F Pulse Rate 111 H 111 H 112 H Respiratory Rate 24 H 26 H Blood Pressure 142/95 H 149/83 H Pulse Oximetry 98 98 Oxygen Delivery 10/05/24 02:00 10/05/24 04:00 10/05/24 04:00 Temperature 98.6 F Pulse Rate 112 H 107 H Respiratory Rate 21 H Blood Pressure 145/91 H Pulse Oximetry 96 96 Oxygen Delivery Room Air 10/05/24 04:00 10/05/24 06:00 10/05/24 06:00 Temperature Pulse Rate 103 H 111 H 111 H Respiratory Rate 21 H Blood Pressure 157/100 H Pulse Oximetry 97 Oxygen Delivery 10/05/24 08:00 Temperature 98.1 F Pulse Rate 126 H Respiratory Rate 16 Blood Pressure 156/107 H Pulse Oximetry 99 Oxygen Delivery Intake/Output Intake/Output: Intake & Output 10/02/24 10/03/24 10/04/24 10/05/24 23:59 23:59 23:59 23:59 Intake Total 6233.7 4970.9 4098.1 1904.4 Output Total 2600 2200 7400 2320 Balance 3633.7 2770.9 -3301.9 -415.6 Meds/Results Medications: Active Medications Generic Name Dose Route Start Last Admin Trade Name Freq PRN Reason Stop Dose Admin Calcium Carbonate 200 mg 10/03/24 23:14 10/05/24 06:31 Calcium Carbonate (Tums) 500 Mg (200 Mg Elemental) PO 200 mg Q4HR PRN Administration Indigestion Capsaicin 1 applic 10/03/24 06:00 10/05/24 05:26 Capsaicin 0.025% Cream 60 Gm Tube TOPICAL 1 applic Q6HR KARRIE Administration Dextrose 12.5 gm 10/03/24 13:10 Dextrose 50% 25 Gm/50 Ml Syringe IV PUSH PRN PRN Hypoglycemia Protocol Enoxaparin Sodium 40 mg 10/02/24 13:30 10/05/24 08:54 Enoxaparin 40 Mg/0.4 Ml Syringe SUB-Q 40 mg DAILY KARRIE Administration Glucagon 1 mg 10/03/24 13:10 Glucagon For Inj 1 Mg Vial IM PRN PRN Hypoglycemia Protocol Glucose 15 gm 10/03/24 13:10 Glucose Oral Gel 15 Gm Of Glucse In 37.5 Gm Tube PO PRN PRN Hypoglycemia Protocol Hydromorphone HCl 0.5 mg 10/03/24 08:38 10/05/24 02:28 Hydromorphone Hcl Inj (*Crx) 1 Mg/Ml Syr IV PUSH 0.5 mg Q3H PRN Administration Pain Rated 7-10 Ceftriaxone Sodium 2 gm in 100 mls @ 200 mls/hr 10/03/24 09:00 10/05/24 08:54 Rocephin 2 Gm/Ns 100 Ml IVPB 200 mls/hr Q24H KARRIE Administration Metronidazole 500 mg in 100 mls @ 100 mls/hr 10/02/24 16:00 10/05/24 06:25 Flagyl 500 Mg/Iso Soln 100 Ml IVPB Infused Q8HR KARRIE Infusion Dextrose 1,000 mls @ 100 mls/hr 10/03/24 13:10 Dextrose 5% 1,000 Ml IVPB PRN PRN Hypoglycemia Protocol Insulin Human Regular 100 100 mls @ 1 mls/hr 10/04/24 02:40 10/05/24 08:50 units/ Sodium Chloride IV CONT 1 units/hr .Q24H KARRIE 1 mls/hr Titration Protocol 1 UNITS/HR Sodium Chloride 1,000 mls @ 150 mls/hr 10/04/24 03:05 10/04/24 04:27 Normal Saline Iv IV CONT 0 mls/hr .Q6H40M KARRIE Infusion Potassium Chloride/Dextrose/Sod Cl 1,000 mls @ 150 mls/hr 10/04/24 03:05 10/05/24 06:31 Kcl 20 Meq/D5/0.45% Sod Chl IV CONT 150 mls/hr .Q6H40M KARRIE Administration Dextrose/Sodium Chloride 1,000 mls @ 150 mls/hr 10/04/24 03:05 Dextrose 5% Sodium Chloride 0.45% IV CONT .Q6H40M KARRIE Insulin Aspart 4 - 8 units 10/03/24 17:00 10/03/24 18:12 Insulin Aspart (*Bkc) 100 Units/Ml SUB-Q 5 units TIDWM [facility] Administration Protocol Insulin Aspart 2 - 4 units 10/03/24 21:00 10/03/24 20:52 Insulin Aspart (*Bkc) 100 Units/Ml SUB-Q Not Given HS [facility] Protocol Metoclopramide HCl 10 mg 10/03/24 18:00 10/04/24 05:03 Metoclopramide Hcl Inj 10 Mg/2 Ml Vial IV PUSH 10 mg Q6HR KARRIE Administration Pantoprazole Sodium 40 mg 10/02/24 13:30 10/05/24 08:56 Pantoprazole Sodium Iv 40 Mg Vial IV PUSH 40 mg QAM KARRIE Administration Prochlorperazine Edisylate 10 mg 10/03/24 08:37 10/05/24 06:32 Prochlorperazine Edisylate 10 Mg/2 Ml Vial IV PUSH 10 mg Q4H PRN Administration Nausea And Vomiting Promethazine HCl 12.5 mg 10/04/24 17:51 10/05/24 08:55 Promethazine Hcl 25 Mg/Ml Ampul IV PUSH 12.5 mg Q6H PRN Administration Nausea And Vomiting Scopolamine 1 patch 10/03/24 11:01 10/03/24 11:46 Scopolamine 1 Mg Patch TRANSDERM 1 patch Q72HR KARRIE Administration Radiology Results: ITS Impressions Chest X-Ray 10/02/24 06:45 Impression: Normal chest. Abdomen/Pelvis CT 10/02/24 07:39 Impression: Questionable infectious/inflammatory colitis of the cecum/proximal ascending colon versus underdistention. Correlate clinically. Diffuse hepatic steatosis. Normal appendix. Abdomen X-Ray 10/03/24 08:38 IMPRESSION: 1. Normal bowel gas pattern. Labs Labs: Laboratory Results - last 24 hr 10/04/24 10/04/24 10/04/24 09:34 10:12 10:36 WBC RBC Hgb Hct MCV MCH MCHC RDW Plt Count MPV Immature Gran % (Auto) Neut % (Auto) Lymph % (Auto) [place] % (Auto) Eos % (Auto) Baso % (Auto) Lymph # (Auto) [place] # (Auto) Eos # (Auto) Baso # (Auto) Abs Immat Gran (auto) Absolute Neuts (auto) Absolute Nucleated RBC Nucleated RBC % Sodium 134 L Potassium 4.0 Chloride 102 Carbon Dioxide 16 L Anion Gap 16 H BUN 7 Creatinine 0.45 L Estim Creat Clear Calc 122 Estimated GFR > 60 Glucose 204 H POC Capillary Glucose 218 H 232 H Calcium 8.8 Phosphorus Magnesium Total Bilirubin AST ALT Alkaline Phosphatase Total Protein Albumin 10/04/24 10/04/24 10/04/24 11:28 12:29 13:27 WBC RBC Hgb Hct MCV MCH MCHC RDW Plt Count MPV Immature Gran % (Auto) Neut % (Auto) Lymph % (Auto) [place] % (Auto) Eos % (Auto) Baso % (Auto) Lymph # (Auto) [place] # (Auto) Eos # (Auto) Baso # (Auto) Abs Immat Gran (auto) Absolute Neuts (auto) Absolute Nucleated RBC Nucleated RBC % Sodium Potassium Chloride Carbon Dioxide Anion Gap BUN Creatinine Estim Creat Clear Calc Estimated GFR Glucose POC Capillary Glucose 232 H 220 H 193 H Calcium Phosphorus Magnesium Total Bilirubin AST ALT Alkaline Phosphatase Total Protein Albumin 10/04/24 10/04/24 10/04/24 14:22 14:36 15:37 WBC RBC Hgb Hct MCV MCH MCHC RDW Plt Count MPV Immature Gran % (Auto) Neut % (Auto) Lymph % (Auto) [place] % (Auto) Eos % (Auto) Baso % (Auto) Lymph # (Auto) [place] # (Auto) Eos # (Auto) Baso # (Auto) Abs Immat Gran (auto) Absolute Neuts (auto) Absolute Nucleated RBC Nucleated RBC % Sodium 134 L Potassium 4.0 Chloride 100 Carbon Dioxide 22 Anion Gap 12 BUN 5 L Creatinine 0.45 L Estim Creat Clear Calc 122 Estimated GFR > 60 Glucose 212 H POC Capillary Glucose 217 H 172 H Calcium 8.9 Phosphorus Magnesium Total Bilirubin AST ALT Alkaline Phosphatase Total Protein Albumin 10/04/24 10/04/24 10/04/24 16:43 17:36 18:32 WBC RBC Hgb Hct MCV MCH MCHC RDW Plt Count MPV Immature Gran % (Auto) Neut % (Auto) Lymph % (Auto) [place] % (Auto) Eos % (Auto) Baso % (Auto) Lymph # (Auto) [place] # (Auto) Eos # (Auto) Baso # (Auto) Abs Immat Gran (auto) Absolute Neuts (auto) Absolute Nucleated RBC Nucleated RBC % Sodium Potassium Chloride Carbon Dioxide Anion Gap BUN Creatinine Estim Creat Clear Calc Estimated GFR Glucose POC Capillary Glucose 189 H 204 H 214 H Calcium Phosphorus Magnesium Total Bilirubin AST ALT Alkaline Phosphatase Total Protein Albumin 10/04/24 10/04/24 10/04/24 18:38 19:20 20:27 WBC RBC Hgb Hct MCV MCH MCHC RDW Plt Count MPV Immature Gran % (Auto) Neut % (Auto) Lymph % (Auto) [place] % (Auto) Eos % (Auto) Baso % (Auto) Lymph # (Auto) [place] # (Auto) Eos # (Auto) Baso # (Auto) Abs Immat Gran (auto) Absolute Neuts (auto) Absolute Nucleated RBC Nucleated RBC % Sodium 134 L Potassium 3.5 Chloride 98 Carbon Dioxide 24 Anion Gap 12 BUN 4 L Creatinine 0.43 L Estim Creat Clear Calc 127 Estimated GFR > 60 Glucose 193 H POC Capillary Glucose 203 H 210 H Calcium 8.9 Phosphorus Magnesium Total Bilirubin AST ALT Alkaline Phosphatase Total Protein Albumin 10/04/24 10/04/24 10/04/24 21:35 22:26 22:27 WBC RBC Hgb Hct MCV MCH MCHC RDW Plt Count MPV Immature Gran % (Auto) Neut % (Auto) Lymph % (Auto) [place] % (Auto) Eos % (Auto) Baso % (Auto) Lymph # (Auto) [place] # (Auto) Eos # (Auto) Baso # (Auto) Abs Immat Gran (auto) Absolute Neuts (auto) Absolute Nucleated RBC Nucleated RBC % Sodium 133 L Potassium 3.4 Chloride 96 L Carbon Dioxide 27 Anion Gap 10 BUN 3 L Creatinine 0.42 L Estim Creat Clear Calc 129 Estimated GFR > 60 Glucose 196 H POC Capillary Glucose 207 H 201 H Calcium 9.1 Phosphorus Magnesium Total Bilirubin AST ALT Alkaline Phosphatase Total Protein Albumin 10/04/24 10/05/24 10/05/24 23:26 00:28 01:26 WBC RBC Hgb Hct MCV MCH MCHC RDW Plt Count MPV Immature Gran % (Auto) Neut % (Auto) Lymph % (Auto) [place] % (Auto) Eos % (Auto) Baso % (Auto) Lymph # (Auto) [place] # (Auto) Eos # (Auto) Baso # (Auto) Abs Immat Gran (auto) Absolute Neuts (auto) Absolute Nucleated RBC Nucleated RBC % Sodium Potassium Chloride Carbon Dioxide Anion Gap BUN Creatinine Estim Creat Clear Calc Estimated GFR Glucose POC Capillary Glucose 208 H 198 H 195 H Calcium Phosphorus Magnesium Total Bilirubin AST ALT Alkaline Phosphatase Total Protein Albumin 10/05/24 10/05/24 10/05/24 02:22 03:26 04:28 WBC 8.4 RBC 4.36 Hgb 11.0 L Hct 33.3 L MCV 76.4 L MCH 25.2 L MCHC 33.0 RDW 14.7 H Plt Count 218 MPV 9.3 Immature Gran % (Auto) 0.2 Neut % (Auto) 70.7 Lymph % (Auto) 15.3 L [place] % (Auto) 13.2 H Eos % (Auto) 0.4 Baso % (Auto) 0.2 Lymph # (Auto) 1.29 [place] # (Auto) 1.1 H Eos # (Auto) 0.0 Baso # (Auto) 0.0 Abs Immat Gran (auto) 0.02 Absolute Neuts (auto) 6.0 Absolute Nucleated RBC 0.000 Nucleated RBC % 0.0 Sodium 132 L Potassium 3.8 Chloride 97 L Carbon Dioxide 25 Anion Gap 10 BUN 3 L Creatinine 0.45 L Estim Creat Clear Calc 122 Estimated GFR > 60 Glucose 214 H POC Capillary Glucose 213 H 202 H Calcium 9.2 Phosphorus 2.7 Magnesium 1.5 L Total Bilirubin 1.1 AST 27 ALT 35 Alkaline Phosphatase 85 Total Protein 7.0 Albumin 3.6 10/05/24 10/05/24 10/05/24 04:31 05:24 06:25 WBC RBC Hgb Hct MCV MCH MCHC RDW Plt Count MPV Immature Gran % (Auto) Neut % (Auto) Lymph % (Auto) [place] % (Auto) Eos % (Auto) Baso % (Auto) Lymph # (Auto) [place] # (Auto) Eos # (Auto) Baso # (Auto) Abs Immat Gran (auto) Absolute Neuts (auto) Absolute Nucleated RBC Nucleated RBC % Sodium Potassium Chloride Carbon Dioxide Anion Gap BUN Creatinine Estim Creat Clear Calc Estimated GFR Glucose POC Capillary Glucose 207 H 212 H 211 H Calcium Phosphorus Magnesium Total Bilirubin AST ALT Alkaline Phosphatase Total Protein Albumin 10/05/24 07:29 WBC RBC Hgb Hct MCV MCH MCHC RDW Plt Count MPV Immature Gran % (Auto) Neut % (Auto) Lymph % (Auto) [place] % (Auto) Eos % (Auto) Baso % (Auto) Lymph # (Auto) [place] # (Auto) Eos # (Auto) Baso # (Auto) Abs Immat Gran (auto) Absolute Neuts (auto) Absolute Nucleated RBC Nucleated RBC % Sodium Potassium Chloride Carbon Dioxide Anion Gap BUN Creatinine Estim Creat Clear Calc Estimated GFR Glucose POC Capillary Glucose 221 H Calcium Phosphorus Magnesium Total Bilirubin AST ALT Alkaline Phosphatase Total Protein Albumin Quality VTE Prophylaxis VTE prophylaxis: pharmacologic ordered
[2024-10-05 09:29] LABS: Glucose Point of Care 242 mg/dl (65-105)
[2024-10-05] MEDS: MAGNESIUM SULF 2 GM/WATER 50ML 2 GM/50 ML BAG IVPB (09:48)
[2024-10-05 09:53] LABS: Glucose Point of Care 224 mg/dl (65-105)
[2024-10-05 10:37] LABS: Glucose Point of Care 240 mg/dl (65-105)
[2024-10-05] MEDS: diphenhydrAMINE HCl INJ 50 MG/ML VIAL 25 MG IV PUSH ×3 (10:52→23:12)
--- NOTE | 2024-10-05 10:57 | PCFNICU ---
ICU Rounding Note: Pt current nutrition is NPO day 3 due to nausea and vomiting. Nutrition recommendation: Advance diet as medically able Last recorded weight is 62 kg. Bowel Motility: No BM Labs Reviewed: Hgb 11, Hst 33.3, Na 32m BUN 3, Cre 0.45, Glu 214, Mag 1.5 Meds Noted: reglan, compazine, phenergan, insulin drip Skin: No skin issues Additional Notes: GI consult today for intractable nausea/vomiting. Following daily in ICU rounds. .
[2024-10-05 11:52] LABS: Glucose Point of Care 285 mg/dl (65-105)
[2024-10-05] MEDS: METOCLOPRAMIDE HCL INJ 10 MG/2 ML VIAL IV PUSH ×3 (12:27→23:11)
[2024-10-05 12:29] LABS: Anion Gap 13 mmol/L (4-12); Blood Urea Nitrogen 5 mg/dL (7-17); Calcium 9.1 mg/dL (8.4-10.2); Carbon Dioxide 26 mmol/L (22-30); Chloride 96 mmol/L (98-107); Estimated CRCL calculation 117 ml/min; Estimated Glomerular Filt Rate > 60; Glucose 241 mg/dL (65-110); Potassium 3.8 mmol/L (3.4-5.0); Sodium 135 mmol/L (137-145)
[2024-10-05 12:41] LABS: Glucose Point of Care 210 mg/dl (65-105)
[2024-10-05 13:37] LABS: Glucose Point of Care 195 mg/dl (65-105)
--- NOTE | 2024-10-05 14:38 | WPDGICN ---
Assessment and Plan Assessment and plan (1) Nausea and vomiting: Qualifiers: Vomiting type: unspecified Qualified Code(s): R11.2 - Nausea with vomiting, unspecified Code(s): R11.2 - Nausea with vomiting, unspecified Status: Acute Assessment and Plan: admitted again with DKA she is still smoking marijuana and most likely has cyclic vomitin on antiemetics, also component of gastroparesis antiemetics, PPI, diet as tolerated (gastroparesis diet) and most importantly will need to stop smoking continue medical support (2) Gastroparesis: Code(s): K31.84 - Gastroparesis Status: Acute Assessment and Plan: reglan diet as tolerated (3) Cannabinoid hyperemesis syndrome: Code(s): R11.2 - Nausea with vomiting, unspecified; F12.90 - Cannabis use, unspecified, uncomplicated Status: Acute (4) Uncontrolled type 1 diabetes mellitus: Qualifiers: Glycemic state: with hyperglycemia Qualified Code(s): E10.65 - Type 1 diabetes mellitus with hyperglycemia Status: Acute (5) DKA (diabetic ketoacidosis): Code(s): E11.10 - Type 2 diabetes mellitus with ketoacidosis without coma Status: Acute Assessment and Plan: on treatment needs to be more compliant GI Consult Note Consult date/time: 10/05/24 14:38 Reason for consult: n/v, dka HPI: Tara Hiknle is a 39 year old female who is known to us with past medical surgical history of diabetes with Hx of DKA, x3, bipolar disorder, cannabinoid hyperemesis syndrome, depression, gastroparesis, HLD, migraines, GERD with esophagitis, gastroparesis, and EtOH abuse. Patient presented once again to the ER via EMS for persistent nausea and vomiting. This is similar to previous hospitalization when she had EGD that showed grade II esophagitis, she also has been evaluated by surgery as outpatient because HIDA scan showed low EF but otherwise no GB inflammation or stones. This time admitted after multiple episodes of nausea, vomiting, abdominal pain and diarrhea. She is still smoking daily marijuana and when she gets sick will take hot showers. Apparently her insulin pump did not work for 1 hour. ER evaluation with DKA, leukocytosis of 12.1, with 90% neutrophils. Severe metabolic acidosis with CO2 <5, blood sugars of 507, anion gap was initially 23, serum beta hCG was negative. Urine drug screen was positive for cannabinoid. Magnesium was 1.2. Influenza, RSV and COVID were negative. Treated with insulin, antiemetics. Review of Systems Constitutional: Constitutional: Denies chills Eyes: Eyes: Denies blurry vision ENT: Reports Normal hearing present Cardiovascular: Cardiovascular: Denies chest pain Respiratory: Respiratory: Denies cough Gastrointestinal: Gastrointestinal: Reports abdominal pain, Reports nausea and Reports vomiting Genitourinary: Genitourinary: Denies dysuria Musculoskeletal: Musculoskeletal: Denies neck pain Integumentary/Breasts: Skin/Breast: Denies rash Neurologic: Denies Abnormal speech present Psychiatric: Psychiatric: Reports anxiety [facility] Past Medical History Medical History Cannabinoid hyperemesis syndrome Bipolar disorder Esophageal varices 04/2024 Depression Migraine Diabetic neuropathy GERD with esophagitis Hyperlipidemia Gastroparesis Elevated liver enzymes Type 1 diabetes mellitus Diagnosed at the age of 7. Hemoglobin A1c was 10.8% on 08/09/2020. DKA (diabetic ketoacidoses) multiple Surgical History Surgical History History of gynecological procedure 04/29/2020- mirena iud insertion - 10/23/2021 mirena iud removal -nm History of 3 sections Family History Family History (Updated 10/01/24 @ 14:13 by Ozzy Nelson MA) Grandparent Breast cancer Father Diabetes mellitus Alcoholism Mother Alcoholism Depression Other Hypertension Social History Social History Smoking packs per day: 1 Smoking cigarettes per day: 20.0 Years smoked: 20 Smoking pack-years: 20.00 Smoking status: Current every day smoker Second hand tobacco smoke exposure: Yes Alcohol intake: former Drinks per week: 20 Alcohol use details: occasional Substance use: current Substance use type: marijuana Last use: 07/25/24 Do You Feel Safe in your Home?: Yes Lack of Transportation: No Lack of Food: Never True Current Housing: I Have Housing Concerned About Future Housing: No Difficulty Paying Gas/Electric Bills: No Difficulty Paying for Meds: No Currently Unemployed: No Education: Decline to Answer Difficulty w/ Childcare or Family Care: No Living arrangements: with family Occupation/Education: unemployed Additional occupation/education comments: not currently working Gender identity (if verbalized by the patient): Female Sexual Orientation (if Verbalized by the Patient): Straight or Heterosexual Spiritual care concerns: No Meds Home Medications and Allergies Home Medications ?Medication ?Instructions ?Recorded ?Confirmed ?Type insulin pump cartridge,auto #1 ea 01/09/24 10/02/24 Rx dose,BT,G6/G7 with controller subcutaneous (Omnipod 5 G6-G7 Intro Kit(Gen 5) subcutaneous cartridge and controller) gabapentin 300 mg capsule 300 mg PO QHS #90 caps 01/17/24 10/02/24 Rx lisinopril 2.5 mg tablet 2.5 mg PO DAILY #90 tabs 01/30/24 10/02/24 Rx insulin pump cartridge,auto #1 ea 05/14/24 10/02/24 Rx dose,BT,G6/G7 with controller subcutaneous glucagon 1 mg/0.2 mL subcutaneous 1 mg (0.2 mL) subcut ONCE #0.4 mL 06/02/24 10/02/24 Rx auto-injector (Gvoke HypoPen 2-Pack) glucose 4 gram chewable tablet 16 g (4 x 4 gram) PO Q15M PRN 06/02/24 10/02/24 Rx hypoglycemia #360 tabs insulin lispro 100 unit/mL See Rx Instructions subcut PRN 06/02/24 10/02/24 Rx subcutaneous solution insulin pump #60 mL insulin pump cart,auto,BT,G6/7 #45 ea 06/02/24 10/02/24 Rx mecobalamin (vitamin B12) 500 mcg 500 mcg PO DAILY 07/15/24 10/02/24 History chewable tablet multivitamin 1 tablet PO DAILY 07/15/24 10/02/24 History acetaminophen 500 mg capsule 1,000 mg (2 x 500 mg) PO Q6H PRN 07/31/24 10/02/24 Rx pain #30 caps aluminum-mag hydroxide-simethicone 10 ml PO TID PRN indigestion 07/31/24 10/02/24 Rx 400 mg-400 mg-40 mg/5 mL oral susp #3,000 mL (Liquid Antacid) melatonin 10 mg tablet 10 mg PO HS PRN Insomnia 08/02/24 10/02/24 History insulin aspart U-100 100 unit/mL 5 unit (0.05 mL) subcut .tid with 08/06/24 10/02/24 Rx (3 mL) subcutaneous pen (Novolog meals 30 days #15 mL FlexPen U-100 Insulin aspart) insulin glargine 100 unit/mL 25 unit (0.25 mL) subcut DAILY 30 08/06/24 10/02/24 Rx subcutaneous solution (Lantus days #15 mL U-100 Insulin) cholecalciferol (vitamin D3) 50 See Rx Instructions .Route 09/08/24 10/02/24 Rx mcg (2,000 unit) capsule (Vitamin .COMPLEX #90 caps D3) folic acid 1 mg tablet See Rx Instructions .Route 09/08/24 10/02/24 Rx .COMPLEX #90 tabs blood-glucose sensor (Dexcom G6 #9 ea 09/16/24 10/02/24 Rx Sensor device) insulin pump cart,auto,BT,G6/7 #30 ea 09/21/24 10/02/24 Rx (Omnipod 5 G6-G7 Pods (Gen 5) subcutaneous cartridge) blood-glucose transmitter (Dexcom 10/02/24 10/02/24 History G6 Transmitter device) metoclopramide HCl 10 mg tablet 10 mg PO Q6H PRN nausea and 10/02/24 10/02/24 History vomiting Allergies Allergy/AdvReac Type Severity Reaction Status Date / Time No Known Allergies Allergy Verified 10/02/24 09:10 Vital Signs Vital Signs - 24 hr 10/04/24 15:51 10/04/24 16:00 10/04/24 16:00 Temperature 98.1 F Pulse Rate 111 H 113 H Respiratory Rate 18 Blood Pressure 156/91 H Pulse Oximetry 99 99 Oxygen Delivery Room Air 10/04/24 18:00 10/04/24 18:00 10/04/24 20:00 Temperature Pulse Rate 116 H 116 H 112 H Respiratory Rate 24 H Blood Pressure 152/91 H Pulse Oximetry 98 Oxygen Delivery 10/04/24 20:00 10/04/24 20:00 10/04/24 22:00 Temperature 98.0 F Pulse Rate 112 H 111 H Respiratory Rate 23 H Blood Pressure 148/94 H Pulse Oximetry 97 97 Oxygen Delivery Room Air 10/04/24 22:00 10/05/24 00:00 10/05/24 00:00 Temperature Pulse Rate 111 H 111 H Respiratory Rate 24 H Blood Pressure 157/93 H Pulse Oximetry 96 98 Oxygen Delivery Room Air 10/05/24 00:00 10/05/24 02:00 10/05/24 02:00 Temperature 97.8 F Pulse Rate 111 H 112 H 112 H Respiratory Rate 24 H 26 H Blood Pressure 142/95 H 149/83 H Pulse Oximetry 98 98 Oxygen Delivery 10/05/24 04:00 10/05/24 04:00 10/05/24 04:00 Temperature 98.6 F Pulse Rate 107 H 103 H Respiratory Rate 21 H Blood Pressure 145/91 H Pulse Oximetry 96 96 Oxygen Delivery Room Air 10/05/24 06:00 10/05/24 06:00 10/05/24 08:00 Temperature 98.1 F Pulse Rate 111 H 111 H 126 H Respiratory Rate 21 H 16 Blood Pressure 157/100 H 156/107 H Pulse Oximetry 97 99 Oxygen Delivery 10/05/24 08:00 10/05/24 10:00 10/05/24 10:00 Temperature 98.3 F Pulse Rate 112 H 120 H 125 H Respiratory Rate 18 Blood Pressure 144/97 H Pulse Oximetry 100 Oxygen Delivery 10/05/24 12:00 10/05/24 12:00 10/05/24 14:00 Temperature 98.6 F 98.2 F Pulse Rate 115 H 118 H 122 H Respiratory Rate 21 H 18 Blood Pressure 143/98 H 158/94 H Pulse Oximetry 99 99 Oxygen Delivery Exam Narrative: General: Pleasant female, ill-appearing, continues to have nausea and vomiting HEENT:? Pupils equal and reactive, sclera is clear, dry oral mucosa Neck:? Supple Respiratory: clear to auscultation, adequate air entry, no wheezing Cardiac:? Sinus tachycardia, S1-S2 is normal Abdomen:? Soft, nondistended, abdominal tenderness much improved, normoactive bowel sounds Extremities:? No edema, palpable pedal pulse Neuro:? Patient is awake, alert, oriented, able to answer questions appropriately and follows simple commands in all extremities Skin:? Warm and dry Psych:? Normal mentation and affect Results Labs 10/05/24 04:28 10/05/24 12:10 Labs: Short CBC 10/05/24 Range/Units 04:28 WBC 8.4 (4.5-10.0) K/mm3 Hgb 11.0 L (12.0-15.0) g/dL Hct 33.3 L (37.0-47.0) % Plt Count 218 (150-375) k/mm3 BMP 10/04/24 10/04/24 10/04/24 14:22 18:38 22:27 Sodium 134 L 134 L 133 L Potassium 4.0 3.5 3.4 Chloride 100 98 96 L Carbon Dioxide 22 24 27 BUN 5 L 4 L 3 L Creatinine 0.45 L 0.43 L 0.42 L Glucose 212 H 193 H 196 H Calcium 8.9 8.9 9.1 10/05/24 10/05/24 04:28 12:10 Sodium 132 L 135 L Potassium 3.8 3.8 Chloride 97 L 96 L Carbon Dioxide 25 26 BUN 3 L 5 L Creatinine 0.45 L 0.47 L Glucose 214 H 241 H Calcium 9.2 9.1 Liver Function 10/05/24 Range/Units 04:28 Total Bilirubin 1.1 (0.2-1.3) mg/dL AST 27 (14-36) U/L ALT 35 (6-35) U/L Alkaline Phosphatase 85 (38-126) U/L Albumin 3.6 (3.5-5.1) g/dL
[2024-10-05 14:42] LABS: Glucose Point of Care 185 mg/dl (65-105)
[2024-10-05 15:59] LABS: Glucose Point of Care 166 mg/dl (65-105)
[2024-10-05 16:38] LABS: Anion Gap 8 mmol/L (4-12); Blood Urea Nitrogen 5 mg/dL (7-17); Carbon Dioxide 24 mmol/L (22-30); Chloride 100 mmol/L (98-107); Estimated CRCL calculation 127 ml/min; Estimated Glomerular Filt Rate > 60; Glucose 147 mg/dL (65-110); Potassium 3.6 mmol/L (3.4-5.0); Sodium 132 mmol/L (137-145)
[2024-10-05 16:39] LABS: Glucose Point of Care 156 mg/dl (65-105)
[2024-10-05 17:33] LABS: Glucose Point of Care 144 mg/dl (65-105)
[2024-10-05 18:35] LABS: Glucose Point of Care 160 mg/dl (65-105)
[2024-10-05 19:21] LABS: Glucose Point of Care 177 mg/dl (65-105)
[2024-10-05 20:13] LABS: Glucose Point of Care 180 mg/dl (65-105)
[2024-10-05 21:14] LABS: Glucose Point of Care 201 mg/dl (65-105)
[2024-10-05 22:15] LABS: Glucose Point of Care 205 mg/dl (65-105)
[2024-10-05 23:11] LABS: Anion Gap 8 mmol/L (4-12); Blood Urea Nitrogen 6 mg/dL (7-17); Carbon Dioxide 25 mmol/L (22-30); Chloride 97 mmol/L (98-107); Estimated CRCL calculation 129 ml/min; Estimated Glomerular Filt Rate > 60; Glucose 206 mg/dL (65-110); Potassium 3.9 mmol/L (3.4-5.0); Sodium 130 mmol/L (137-145)
[2024-10-05 23:25] LABS: Glucose Point of Care 216 mg/dl (65-105)
[2024-10-05 23:46] LABS: Anion Gap 10 mmol/L (4-12); Blood Urea Nitrogen 6 mg/dL (7-17); Calcium 9.3 mg/dL (8.4-10.2); Carbon Dioxide 26 mmol/L (22-30); Chloride 97 mmol/L (98-107); Estimated CRCL calculation 115 ml/min; Estimated Glomerular Filt Rate > 60; Glucose 188 mg/dL (65-110); Potassium 3.6 mmol/L (3.4-5.0); Sodium 133 mmol/L (137-145)
[2024-10-06] VITALS (16 sets, daily range): BP systolic 113–189; BP diastolic 72–107; PULSE 93–130; RESP 16–23; TEMP 36.4–36.8; O2SAT 98–99
[2024-10-06] MEDS: CALCIUM CARBONATE (TUMS) 500 MG (200 MG ELEMENTAL) PO ×4 (00:23→17:09)
[2024-10-06 00:27] LABS: Glucose Point of Care 218 mg/dl (65-105)
[2024-10-06 01:18] LABS: Glucose Point of Care 221 mg/dl (65-105)
[2024-10-06] MEDS: PROCHLORPERAZINE EDISYLATE 10 MG/2 ML VIAL IV PUSH ×4 (02:21→20:55)
[2024-10-06 02:27] LABS: Glucose Point of Care 212 mg/dl (65-105)
[2024-10-06] MEDS: PROMETHAZINE HCL 25 MG/ML AMPUL 12.5 MG IV PUSH ×3 (03:26→18:12)
[2024-10-06] MEDS: KCL 20 MEQ/D5/0.45% SOD CHL 1,000 ML 150 ML IV CONT (03:53)
[2024-10-06 04:11] LABS: Glucose Point of Care 174 mg/dl (65-105)
[2024-10-06 04:32] LABS: Anion Gap 7 mmol/L (4-12); Blood Urea Nitrogen 6 mg/dL (7-17); Calcium 9.1 mg/dL (8.4-10.2); Carbon Dioxide 24 mmol/L (22-30); Chloride 101 mmol/L (98-107); Estimated CRCL calculation 115 ml/min; Estimated Glomerular Filt Rate > 60; Glucose 159 mg/dL (65-110); Potassium 3.6 mmol/L (3.4-5.0); Sodium 132 mmol/L (137-145)
[2024-10-06] MEDS: METOCLOPRAMIDE HCL INJ 10 MG/2 ML VIAL IV PUSH ×4 (05:20→23:25)
[2024-10-06] MEDS: diphenhydrAMINE HCl INJ 50 MG/ML VIAL 25 MG IV PUSH ×4 (05:20→23:26)
[2024-10-06] MEDS: HYDROmorphone HCL INJ (*CRX) 1 MG/ML SYR 0.5 MG IV PUSH ×3 (05:20→18:12)
[2024-10-06] MEDS: metroNIDAZOLE 500 MG/ISO 100ML 500 MG/100 ML BAG 100 MG IVPB ×3 (05:21→19:48)
[2024-10-06 05:27] LABS: Glucose Point of Care 202 mg/dl (65-105)
[2024-10-06 06:28] LABS: Glucose Point of Care 220 mg/dl (65-105)
[2024-10-06 07:48] LABS: Glucose Point of Care 225 mg/dl (65-105)
[2024-10-06 08:14] LABS: Anion Gap 9 mmol/L (4-12); Blood Urea Nitrogen 6 mg/dL (7-17); Calcium 9.1 mg/dL (8.4-10.2); Carbon Dioxide 26 mmol/L (22-30); Chloride 98 mmol/L (98-107); Estimated CRCL calculation 109 ml/min; Estimated Glomerular Filt Rate > 60; Glucose 227 mg/dL (65-110); Sodium 133 mmol/L (137-145)
[2024-10-06 08:37] LABS: Glucose Point of Care 259 mg/dl (65-105)
[2024-10-06] MEDS: SCOPOLAMINE 1 MG PATCH 1 PATCH TRANSDERM (08:42)
[2024-10-06] MEDS: ENOXAPARIN 40 MG/0.4 ML SYRINGE SUB-Q (08:42)
[2024-10-06] MEDS: PANTOPRAZOLE SODIUM IV 40 MG VIAL IV PUSH ×2 (08:43→19:47)
[2024-10-06] MEDS: cefTRIAXone 2 GM/NS 100 ML 2 GM/100 ML BAG IVPB (08:43)
--- NOTE | 2024-10-06 09:22 | PC.NURSE ---
0830- poc bgl [id number]. Per dr hodgson, do not titrate insulin gtt and fluids, will be ordering lantus and diet this morning for patient.
--- NOTE | 2024-10-06 09:23 | P.PNINT_ITS ---
Progress Note: A&P Assessment and Plan (1) Cannabinoid hyperemesis syndrome: Code(s): R11.2 - Nausea with vomiting, unspecified; F12.90 - Cannabis use, unspecified, uncomplicated Status: Acute Assessment and Plan: Patient has a history of cannabinoid hyperemesis syndrome, continues to smoke marijuana on a daily basis -have counseled patient on cessation of marijuana usage -if vomiting does not improve will try a dose of Ativan (-10/02: gave her dose of Ativan this morning with some improvement) -continue scopolamine patch for intractable vomiting -she is also on capsaicin cream to the abdomen, for cannabinoid hyperemesis syndrome -currently on Phenergan, Compazine, Reglan, scopolamine patch, Benadryl -appreciate GI evaluation and recommend GI evaluation, recommends continuing what we are doing, likely related to 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 Recommended Cessation of marijuana use (2) DKA (diabetic ketoacidosis): Qualifiers: Diabetes mellitus complication detail: without coma Diabetes mellitus type: type 1 Qualified Code(s): E10.10 - Type 1 diabetes mellitus with ketoacidosis without coma Code(s): E11.10 - Type 2 diabetes mellitus with ketoacidosis without coma Status: Acute Assessment and Plan: 10/02: Patient presented with nausea, vomiting, diarrhea, abdominal pain -states that her insulin pump fell off or is malfunctioning -in the ER patient was found to be in severe anion gap metabolic acidosis with hyperglycemia -diagnosed with diabetic ketoacidosis, given 3 L IV fluid bolus and started on insulin infusion per DKA protocol and transferred to the ICU for further management. -10/02: will give additional 1 L IV fluid bolus in the ICU (they will be a total of 4 L IV fluid bolus since admission) -continue insulin infusion per DKA protocol -10/03: Anion gap had closed, patient transitioned to long-acting insulin and sliding scale insulin. Late in the evening on the same day she continue have severe nausea and vomiting, BMP showed elevated anion gap and metabolic acidosis. Insulin infusion was restarted per DKA protocol -continue insulin infusion for now per DKA protocol 10/05: patient's anion gap is closed and his CO2 is 25. But continues to have intractable nausea and vomiting. Will continue insulin infusion for now as she is unable to take anything oral and I worry that she if she continues to have intractable vomiting, giving a long-acting insulin mid dropped her blood sugars and may cause hypoglycemia 10/06: Patient's anion gap has closed since the last 5 instances on her BMPs. CO2 has been normal since 10/04/2024. -discussed with patient this morning, will transition her to Lantus and sliding scale insulin, have encouraged the patient to start full liquid diet and advanced as tolerated to diabetic diet. Patient is agreeable (3) Type 1 diabetes mellitus: Qualifiers: Diabetes mellitus complication status: with hyperglycemia Qualified Code(s): E10.65 - Type 1 diabetes mellitus with hyperglycemia Code(s): E10.9 - Type 1 diabetes mellitus without complications Status: Acute Assessment and Plan: Patient has a longstanding history of type 1 diabetes with neuropathy, gastroparesis -hemoglobin A1c is 8.2 this admit -consult breastfeeding educator and dietitian (4) Colitis: Code(s): K52.9 - Noninfective gastroenteritis and colitis, unspecified Status: Acute Assessment and Plan: Patient also presented with abdominal pain, nausea and vomiting CT abdomen and pelvis: Questionable infectious/inflammatory colitis of the cecum/proximal ascending colon versus underdistention. Correlate clinically. Diffuse hepatic steatosis. Normal appendix. - ceftriaxone and metronidazole (10/02) -continue Dilaudid for pain -10/02: Continues to have abdominal pain, obstructive series showed normal bowel gas pattern, no free intraperitoneal gas. -10/06: white count has normalized, afebrile. Will continue antibiotics for total of 5 days (5) Tobacco abuse: Code(s): Z72.0 - Tobacco use Status: Acute Assessment and Plan: Continues to smoke 1 packet per day, counseled patient on cessation of tobacco use (6) Hypomagnesemia: Code(s): E83.42 - Hypomagnesemia Status: Acute Assessment and Plan: Magnesium was replaced on 10/05/2024 (7) Gastroparesis: Code(s): K31.84 - Gastroparesis Status: Acute Assessment and Plan: Continue Reglan Plan DVT prophylaxis: Lovenox Stress ulcer prophylaxis: Protonix Nutrition: Will start full liquid diet, advanced as tolerated to diabetic diet Code Status: Full code Critical Care Time Spent: 33 minutes Discussed with patient at length regarding switching her to Lantus and sliding scale insulin as she cannot be on insulin infusion for prolonged amount of times did since her anion gap and CO2 have normalized since . She is agreeable to try full liquid diet and switched to Lantus at this time. Will continue to monitor blood sugars closely. Due to a high probability of clinically significant, life threatening deterioration, the patient required my highest level of preparedness to intervene emergently and I personally spent this critical care time directly and personally managing the patient. This critical care time included obtaining a history; examining the patient; pulse oximetry; ordering and review of studies; arranging urgent treatment with development of a management plan; evaluation of patient's response to treatment; frequent reassessment; and discussions with other providers. It was exclusive of separately billable procedures and treating other patients and teaching time. Please see Assessment and Plan section and the rest of the note for further information on patient assessment and treatment This dictation may have been done utilizing a voice recognition system. Attempts have been made to correct errors. However, there may be uncorrected grammatical, spelling, and recognitions errors present. Subjective Date/time seen: 10/06/24 09:23 Interval history: Reason for consult: Diabetic ketoacidosis, hyperglycemia, metabolic acidosis, infectious/inflammatory colitis, marijuana use 10/06/2024: Patient seen examined the ICU, remains on insulin infusion, vomiting has improved this morning, you to have some retching overnight but slept through the night well according the bedside RN. Once she wakes up she starts asking for antiemetics and pain medications. Anion gap remains closed on 5 instances, CO2 has been normal since 10/04/2024. Patient is afebrile, has adequate urine output, hemodynamically stable, tachycardic. States abdominal pain is better this morning. Denies any shortness of breath, chest pain Review of Systems Review of Systems: All systems reviewed & are unremarkable except as noted in HPI and below Exam Narrative: General: Pleasant female, looks better this morning, not so ill-appearing HEENT:? Pupils equal and reactive, sclera is clear, dry oral mucosa Neck:? Supple Respiratory: clear to auscultation, adequate air entry, no wheezing Cardiac:? Sinus tachycardia, S1-S2 is normal Abdomen:? Soft, nondistended, abdominal tenderness much improved, normoactive bowel sounds Extremities:? No edema, palpable pedal pulse Neuro:? Patient is awake, alert, oriented, able to answer questions appropriately and follows simple commands in all extremities Skin:? Warm and dry Psych:? Normal mentation and affect Objective Data Vital Signs Vital Signs: Vital Signs - 24 hr 10/05/24 10:00 10/05/24 10:00 10/05/24 12:00 Temperature 98.3 F 98.6 F Pulse Rate 120 H 125 H 115 H Respiratory Rate 18 21 H Blood Pressure 144/97 H 143/98 H Pulse Oximetry 100 99 Oxygen Delivery 10/05/24 12:00 10/05/24 14:00 10/05/24 14:00 Temperature 98.2 F Pulse Rate 118 H 122 H 117 H Respiratory Rate 18 Blood Pressure 158/94 H Pulse Oximetry 99 Oxygen Delivery 10/05/24 16:00 10/05/24 16:00 10/05/24 17:59 Temperature 98.2 F Pulse Rate 115 H 110 H 115 H Respiratory Rate 20 Blood Pressure 141/98 H Pulse Oximetry 100 Oxygen Delivery 10/05/24 18:00 10/05/24 20:00 10/05/24 20:00 Temperature 98.8 F 98.8 F Pulse Rate 118 H 118 H 118 H Respiratory Rate 16 23 H Blood Pressure 155/95 H 145/92 H Pulse Oximetry 99 99 Oxygen Delivery 10/05/24 20:00 10/05/24 22:00 10/05/24 22:00 Temperature Pulse Rate 119 H 119 H Respiratory Rate 24 H Blood Pressure 158/90 H Pulse Oximetry 99 98 Oxygen Delivery Room Air 10/06/24 00:00 10/06/24 00:00 10/06/24 02:00 Temperature 97.5 F L Pulse Rate 122 H 122 H 107 H Respiratory Rate 20 Blood Pressure 163/98 H Pulse Oximetry 98 Oxygen Delivery 10/06/24 02:00 10/06/24 04:00 10/06/24 04:00 Temperature 97.6 F Pulse Rate 107 H 124 H 126 H Respiratory Rate 18 20 Blood Pressure 113/99 H 150/89 H Pulse Oximetry 99 99 Oxygen Delivery 10/06/24 06:00 10/06/24 06:00 10/06/24 08:00 Temperature 98.3 F Pulse Rate 119 H 119 H 117 H Respiratory Rate 19 22 H Blood Pressure 134/72 189/107 H Pulse Oximetry 98 99 Oxygen Delivery Intake/Output Intake/Output: Intake & Output 0210/04/24 10/05/24 10/06/24 23:59 23:59 23:59 23:59 Intake Total 4970.9 4098.1 4402.8 1108.4 Output Total 2200 7400 4320 1000 Balance 2770.9 -3301.9 82.8 108.4 Meds/Results Medications: Active Medications Generic Name Dose Route Start Last Admin Trade Name Freq PRN Reason Stop Dose Admin Calcium Carbonate 200 mg 10/03/24 23:14 10/06/24 08:42 Calcium Carbonate (Tums) 500 Mg (200 Mg Elemental) PO 200 mg Q4HR PRN Administration Indigestion Capsaicin 1 applic 10/03/24 06:00 10/06/24 05:41 Capsaicin 0.025% Cream 60 Gm Tube TOPICAL Not Given Q6HR KARRIE Dextrose 12.5 gm 10/03/24 13:10 Dextrose 50% 25 Gm/50 Ml Syringe IV PUSH PRN PRN Hypoglycemia Protocol Dextrose 12.5 gm 10/06/24 09:19 Dextrose 50% 25 Gm/50 Ml Syringe IV PUSH PRN PRN Hypoglycemia Protocol Diphenhydramine HCl 25 mg 10/05/24 11:00 10/06/24 05:20 Diphenhydramine Hcl Inj 50 Mg/Ml Vial IV PUSH 25 mg Q6HR KARRIE Administration Enoxaparin Sodium 40 mg 10/02/24 13:30 10/06/24 08:42 Enoxaparin 40 Mg/0.4 Ml Syringe SUB-Q 40 mg DAILY KARRIE Administration Glucagon 1 mg 10/03/24 13:10 Glucagon For Inj 1 Mg Vial IM PRN PRN Hypoglycemia Protocol Glucagon 1 mg 10/06/24 09:19 Glucagon For Inj 1 Mg Vial IM PRN PRN Hypoglycemia Protocol Glucose 15 gm 10/03/24 13:10 Glucose Oral Gel 15 Gm Of Glucse In 37.5 Gm Tube PO PRN PRN Hypoglycemia Protocol Glucose 15 gm 10/06/24 09:19 Glucose Oral Gel 15 Gm Of Glucse In 37.5 Gm Tube PO PRN PRN Hypoglycemia Protocol Hydromorphone HCl 0.5 mg 10/03/24 08:38 10/06/24 05:20 Hydromorphone Hcl Inj (*Crx) 1 Mg/Ml Syr IV PUSH 0.5 mg Q3H PRN Administration Pain Rated 7-10 Ceftriaxone Sodium 2 gm in 100 mls @ 200 mls/hr 10/03/24 09:00 10/06/24 08:43 Rocephin 2 Gm/Ns 100 Ml IVPB 10/06/24 23:59 200 mls/hr Q24H KARRIE Administration Metronidazole 500 mg in 100 mls @ 100 mls/hr 10/02/24 16:00 10/06/24 06:21 Flagyl 500 Mg/Iso Soln 100 Ml IVPB 10/06/24 23:59 Infused Q8HR KARRIE Infusion Dextrose 1,000 mls @ 100 mls/hr 10/03/24 13:10 Dextrose 5% 1,000 Ml IVPB PRN PRN Hypoglycemia Protocol Insulin Human Regular 100 100 mls @ 1 mls/hr 10/04/24 02:40 10/06/24 07:38 units/ Sodium Chloride IV CONT 1 units/hr .Q24H KARRIE 1 mls/hr Titration Protocol 1 UNITS/HR Sodium Chloride 1,000 mls @ 150 mls/hr 10/04/24 03:05 10/05/24 21:27 Normal Saline Iv IV CONT Not Given .Q6H40M KARRIE Potassium Chloride/Dextrose/Sod Cl 1,000 mls @ 150 mls/hr 10/04/24 03:05 10/06/24 03:53 Kcl 20 Meq/D5/0.45% Sod Chl IV CONT 150 mls/hr .Q6H40M KARRIE Administration Dextrose/Sodium Chloride 1,000 mls @ 150 mls/hr 10/04/24 03:05 10/05/24 21:28 Dextrose 5% Sodium Chloride 0.45% IV CONT Not Given .Q6H40M KARRIE Dextrose 1,000 mls @ 100 mls/hr 10/06/24 09:19 Dextrose 5% 1,000 Ml IVPB PRN PRN Hypoglycemia Protocol Insulin Aspart 2 - 4 units 10/03/24 21:00 10/03/24 20:52 Insulin Aspart (*Bkc) 100 Units/Ml SUB-Q Not Given HS KARRIE Protocol Insulin Aspart 4 - 8 units 10/06/24 09:30 Insulin Aspart (*Bkc) 100 Units/Ml SUB-Q Q4H KARRIE Protocol Insulin Glargine 30 units 10/07/24 09:00 Insulin Glargine (*Bkc) 100 Units/Ml SUB-Q DAILY KARRIE Metoclopramide HCl 10 mg 10/03/24 18:00 10/06/24 05:20 Metoclopramide Hcl Inj 10 Mg/2 Ml Vial IV PUSH 10 mg Q6HR KARRIE Administration Pantoprazole Sodium 40 mg 10/02/24 13:30 10/06/24 08:43 Pantoprazole Sodium Iv 40 Mg Vial IV PUSH 40 mg QAM KARRIE Administration Prochlorperazine Edisylate 10 mg 10/03/24 08:37 10/06/24 08:42 Prochlorperazine Edisylate 10 Mg/2 Ml Vial IV PUSH 10 mg Q4H PRN Administration Nausea And Vomiting Promethazine HCl 12.5 mg 10/04/24 17:51 10/06/24 03:26 Promethazine Hcl 25 Mg/Ml Ampul IV PUSH 12.5 mg Q6H PRN Administration Nausea And Vomiting Scopolamine 1 patch 10/03/24 11:01 10/06/24 08:42 Scopolamine 1 Mg Patch TRANSDERM 1 patch Q72HR KARRIE Administration Radiology Results: ITS Impressions Chest X-Ray 10/02/24 06:45 Impression: Normal chest. Abdomen/Pelvis CT 10/02/24 07:39 Impression: Questionable infectious/inflammatory colitis of the cecum/proximal ascending colon versus underdistention. Correlate clinically. Diffuse hepatic steatosis. Normal appendix. Abdomen X-Ray 10/03/24 08:38 IMPRESSION: 1. Normal bowel gas pattern. Labs Labs: Laboratory Results - last 24 hr 10/05/24 10/05/24 10/05/24 08:51 09:23 10:33 Sodium Potassium Chloride Carbon Dioxide Anion Gap BUN Creatinine Estim Creat Clear Calc Estimated GFR Glucose POC Capillary Glucose 224 H 242 H 240 H Calcium 10/05/24 10/05/24 10/05/24 11:39 12:10 12:36 Sodium 135 L Potassium 3.8 Chloride 96 L Carbon Dioxide 26 Anion Gap 13 H BUN 5 L Creatinine 0.47 L Estim Creat Clear Calc 117 Estimated GFR > 60 Glucose 241 H POC Capillary Glucose 285 H 210 H Calcium 9.1 10/05/24 10/05/24 10/05/24 13:28 14:36 15:40 Sodium Potassium Chloride Carbon Dioxide Anion Gap BUN Creatinine Estim Creat Clear Calc Estimated GFR Glucose POC Capillary Glucose 195 H 185 H 166 H Calcium 10/05/24 10/05/24 10/05/24 16:00 16:36 17:23 Sodium 132 L Potassium 3.6 Chloride 100 Carbon Dioxide 24 Anion Gap 8 BUN 5 L Creatinine 0.43 L Estim Creat Clear Calc 127 Estimated GFR > 60 Glucose 147 H POC Capillary Glucose 156 H 144 H Calcium 9.0 10/05/24 10/05/24 10/05/24 18:33 19:18 19:50 Sodium 133 L Potassium 3.6 Chloride 97 L Carbon Dioxide 26 Anion Gap 10 BUN 6 L Creatinine 0.48 L Estim Creat Clear Calc 115 Estimated GFR > 60 Glucose 188 H POC Capillary Glucose 160 H 177 H Calcium 9.3 10/05/24 10/05/24 10/05/24 20:11 21:10 22:11 Sodium Potassium Chloride Carbon Dioxide Anion Gap BUN Creatinine Estim Creat Clear Calc Estimated GFR Glucose POC Capillary Glucose 180 H 201 H 205 H Calcium 10/05/24 10/05/24 10/06/24 22:55 23:16 00:22 Sodium 130 L Potassium 3.9 Chloride 97 L Carbon Dioxide 25 Anion Gap 8 BUN 6 L Creatinine 0.42 L Estim Creat Clear Calc 129 Estimated GFR > 60 Glucose 206 H POC Capillary Glucose 216 H 218 H Calcium 9.0 10/06/24 10/06/24 10/06/24 01:15 02:20 03:29 Sodium Potassium Chloride Carbon Dioxide Anion Gap BUN Creatinine Estim Creat Clear Calc Estimated GFR Glucose POC Capillary Glucose 221 H 212 H 174 H Calcium 10/06/24 10/06/24 10/06/24 04:01 05:16 06:24 Sodium 132 L Potassium 3.6 Chloride 101 Carbon Dioxide 24 Anion Gap 7 BUN 6 L Creatinine 0.48 L Estim Creat Clear Calc 115 Estimated GFR > 60 Glucose 159 H POC Capillary Glucose 202 H 220 H Calcium 9.1 10/06/24 10/06/24 10/06/24 07:35 07:51 08:33 Sodium 133 L Potassium 4.0 Chloride 98 Carbon Dioxide 26 Anion Gap 9 BUN 6 L Creatinine 0.51 L Estim Creat Clear Calc 109 Estimated GFR > 60 Glucose 227 H POC Capillary Glucose 225 H 259 H Calcium 9.1 Quality VTE Prophylaxis VTE prophylaxis: pharmacologic ordered
[2024-10-06 09:37] LABS: Glucose Point of Care 225 mg/dl (65-105)
[2024-10-06] MEDS: METOPROLOL TARTRATE 25 MG TABLET PO ×2 (09:39→19:48)
[2024-10-06] MEDS: INSULIN GLARGINE (*BKC) 100 UNITS/ML 30 UNITS SUB-Q (09:49)
--- NOTE | 2024-10-06 11:11 | PCFNICU ---
ICU Rounding Note: Pt current nutrition is Full liquids. Last recorded weight is 55.7 kg, down from 66.5 kg on admit. Bowel Motility: No BM reported. Labs Reviewed: Glu 227, Cr 0.51, BUN 6, Na 133 Meds Noted:Reglan, Rocephin, Lantus, Protonix Skin: WNL Additional Notes: Nursing reports, patient having some nausea and heartburn today. Diet order has been advanced to a full liquid diet. Recommend [facility] diet when medically able. Agree with diet orders. Following daily in ICU rounds.
[2024-10-06] MEDS: INSULIN ASPART (*BKC) 100 UNITS/ML SUB-Q ×2 (11:25→20:00)
[2024-10-06 11:36] LABS: Glucose Point of Care 245 mg/dl (65-105)
--- NOTE | 2024-10-06 16:23 | WPDGIPROGNO ---
Progress Note: A&P Assessment and Plan (1) Nausea and vomiting: Qualifiers: Vomiting type: unspecified Qualified Code(s): R11.2 - Nausea with vomiting, unspecified Code(s): R11.2 - Nausea with vomiting, unspecified Status: Acute Assessment and Plan: chronic, on antiemetics at home dka resolved advancing diet as she is feeling better (2) Cannabinoid hyperemesis syndrome: Code(s): R11.2 - Nausea with vomiting, unspecified; F12.90 - Cannabis use, unspecified, uncomplicated Status: Acute Assessment and Plan: advised to quit altogether (3) Gastroparesis: Code(s): K31.84 - Gastroparesis Status: Acute Assessment and Plan: clinically better, on reglan and she is eating (4) Uncontrolled type 1 diabetes mellitus: Qualifiers: Glycemic state: with hyperglycemia Qualified Code(s): E10.65 - Type 1 diabetes mellitus with hyperglycemia Status: Acute (5) DKA (diabetic ketoacidosis): Qualifiers: Diabetes mellitus complication detail: without coma Diabetes mellitus type: type 1 Qualified Code(s): E10.10 - Type 1 diabetes mellitus with ketoacidosis without coma Code(s): E11.10 - Type 2 diabetes mellitus with ketoacidosis without coma Status: Acute Assessment and Plan: resolved Subjective Date/time seen: 10/06/24 16:23 Interval history: feeling better and tolerating more diet today Review of Systems Review of Systems: All systems reviewed & are unremarkable except as noted in HPI and below Exam Narrative: General: Pleasant female, looks better this morning, not so ill-appearing HEENT:? Pupils equal and reactive, sclera is clear, dry oral mucosa Neck:? Supple Respiratory: clear to auscultation, adequate air entry, no wheezing Cardiac:? Sinus tachycardia, S1-S2 is normal Abdomen:? Soft, nondistended, abdominal tenderness much improved, normoactive bowel sounds Extremities:? No edema, palpable pedal pulse Neuro:? Patient is awake, alert, oriented, able to answer questions appropriately and follows simple commands in all extremities Skin:? Warm and dry Psych:? Normal mentation and affect Objective Data Vital Signs Vital Signs: Vital Signs - 24 hr 10/05/24 17:59 10/05/24 18:00 10/05/24 20:00 Temperature 98.8 F 98.8 F Pulse Rate 115 H 118 H 118 H Respiratory Rate 16 23 H Blood Pressure 155/95 H 145/92 H Pulse Oximetry 99 99 Oxygen Delivery 10/05/24 20:00 10/05/24 20:00 10/05/24 22:00 Temperature Pulse Rate 118 H 119 H Respiratory Rate Blood Pressure Pulse Oximetry 99 Oxygen Delivery Room Air 10/05/24 22:00 10/06/24 00:00 10/06/24 00:00 Temperature 97.5 F L Pulse Rate 119 H 122 H 122 H Respiratory Rate 24 H 20 Blood Pressure 158/90 H 163/98 H Pulse Oximetry 98 98 Oxygen Delivery 10/06/24 02:00 10/06/24 02:00 10/06/24 04:00 Temperature Pulse Rate 107 H 107 H 124 H Respiratory Rate 18 Blood Pressure 113/99 H Pulse Oximetry 99 Oxygen Delivery 10/06/24 04:00 10/06/24 06:00 10/06/24 06:00 Temperature 97.6 F Pulse Rate 126 H 119 H 119 H Respiratory Rate 20 19 Blood Pressure 150/89 H 134/72 Pulse Oximetry 99 98 Oxygen Delivery 10/06/24 08:00 10/06/24 08:00 10/06/24 09:39 Temperature 98.3 F Pulse Rate 117 H 120 H 130 H Respiratory Rate 22 H Blood Pressure 189/107 H Pulse Oximetry 99 Oxygen Delivery 10/06/24 09:59 10/06/24 10:00 10/06/24 12:00 Temperature 98.1 F Pulse Rate 123 H 124 H 97 Respiratory Rate 21 H Blood Pressure 176/100 H Pulse Oximetry 99 Oxygen Delivery 10/06/24 12:00 10/06/24 14:00 10/06/24 14:00 Temperature 98.2 F 98.1 F Pulse Rate 96 102 H 102 H Respiratory Rate 18 19 Blood Pressure 148/91 H 153/93 H Pulse Oximetry 99 98 Oxygen Delivery Intake/Output Intake/Output: Intake & Output 10/03/24 10/04/24 10/05/24 10/06/24 23:59 23:59 23:59 23:59 Intake Total 4970.9 4098.1 4402.8 2311.6 Output Total 2200 7400 4320 2000 Balance 2770.9 -3301.9 82.8 311.6 Meds/Results Medications: Active Medications Generic Name Dose Route Start Last Admin Trade Name Freq PRN Reason Stop Dose Admin Calcium Carbonate 200 mg 10/03/24 23:14 10/06/24 08:42 Calcium Carbonate (Tums) 500 Mg (200 Mg Elemental) PO 200 mg Q4HR PRN Administration Indigestion Capsaicin 1 applic 10/03/24 06:00 10/06/24 11:22 Capsaicin 0.025% Cream 60 Gm Tube TOPICAL Not Given Q6HR KARRIE Dextrose 12.5 gm 10/03/24 13:10 Dextrose 50% 25 Gm/50 Ml Syringe IV PUSH PRN PRN Hypoglycemia Protocol Diphenhydramine HCl 25 mg 10/05/24 11:00 10/06/24 11:23 Diphenhydramine Hcl Inj 50 Mg/Ml Vial IV PUSH 25 mg Q6HR KARRIE Administration Enoxaparin Sodium 40 mg 10/02/24 13:30 10/06/24 08:42 Enoxaparin 40 Mg/0.4 Ml Syringe SUB-Q 40 mg DAILY KARRIE Administration Gabapentin 300 mg 10/06/24 21:00 Gabapentin 300 Mg Capsule PO QHS KARRIE Glucagon 1 mg 10/03/24 13:10 Glucagon For Inj 1 Mg Vial IM PRN PRN Hypoglycemia Protocol Glucose 15 gm 10/03/24 13:10 Glucose Oral Gel 15 Gm Of Glucse In 37.5 Gm Tube PO PRN PRN Hypoglycemia Protocol Hydromorphone HCl 0.5 mg 10/03/24 08:38 10/06/24 10:26 Hydromorphone Hcl Inj (*Crx) 1 Mg/Ml Syr IV PUSH 0.5 mg Q3H PRN Administration Pain Rated 7-10 Ceftriaxone Sodium 2 gm in 100 mls @ 200 mls/hr 10/03/24 09:00 10/06/24 08:43 Rocephin 2 Gm/Ns 100 Ml IVPB 10/06/24 23:59 200 mls/hr Q24H KARRIE Administration Metronidazole 500 mg in 100 mls @ 100 mls/hr 10/02/24 16:00 10/06/24 13:36 Flagyl 500 Mg/Iso Soln 100 Ml IVPB 10/06/24 23:59 100 mls/hr Q8HR KARRIE Administration Dextrose 1,000 mls @ 100 mls/hr 10/03/24 13:10 Dextrose 5% 1,000 Ml IVPB PRN PRN Hypoglycemia Protocol Insulin Human Regular 100 100 mls @ 0 mls/hr 10/04/24 02:40 10/06/24 10:50 units/ Sodium Chloride IV CONT 0 units/hr .Q0M KARRIE 0 mls/hr Titration Protocol Sodium Chloride 1,000 mls @ 150 mls/hr 10/04/24 03:05 10/05/24 21:27 Normal Saline Iv IV CONT Not Given .Q6H40M KARRIE Potassium Chloride/Dextrose/Sod Cl 1,000 mls @ 150 mls/hr 10/04/24 03:05 10/06/24 10:50 Kcl 20 Meq/D5/0.45% Sod Chl IV CONT Infused .Q6H40M KARRIE Infusion Dextrose/Sodium Chloride 1,000 mls @ 150 mls/hr 10/04/24 03:05 10/05/24 21:28 Dextrose 5% Sodium Chloride 0.45% IV CONT Not Given .Q6H40M KARRIE Insulin Aspart 2 - 4 units 10/03/24 21:00 10/03/24 20:52 Insulin Aspart (*Bkc) 100 Units/Ml SUB-Q Not Given HS KARRIE Protocol Insulin Aspart 4 - 8 units 10/06/24 09:30 10/06/24 11:25 Insulin Aspart (*Bkc) 100 Units/Ml SUB-Q 4 units Q4HR KARRIE Administration Protocol Insulin Glargine 30 units 10/06/24 09:00 10/06/24 09:49 Insulin Glargine (*Bkc) 100 Units/Ml SUB-Q 30 units DAILY KARRIE Administration Metoclopramide HCl 10 mg 10/03/24 18:00 10/06/24 11:23 Metoclopramide Hcl Inj 10 Mg/2 Ml Vial IV PUSH 10 mg Q6HR KARRIE Administration Metoprolol Tartrate 25 mg 10/06/24 09:25 10/06/24 09:39 Metoprolol Tartrate 25 Mg Tablet PO 25 mg Q12HR KARRIE Administration Pantoprazole Sodium 40 mg 10/06/24 21:00 Pantoprazole Sodium Iv 40 Mg Vial IV PUSH Q12HR KARRIE Prochlorperazine Edisylate 10 mg 10/03/24 08:37 10/06/24 14:46 Prochlorperazine Edisylate 10 Mg/2 Ml Vial IV PUSH 10 mg Q4H PRN Administration Nausea And Vomiting Promethazine HCl 12.5 mg 10/04/24 17:51 10/06/24 10:26 Promethazine Hcl 25 Mg/Ml Ampul IV PUSH 12.5 mg Q6H PRN Administration Nausea And Vomiting Scopolamine 1 patch 10/03/24 11:01 10/06/24 08:42 Scopolamine 1 Mg Patch TRANSDERM 1 patch Q72HR KARRIE Administration Radiology Results: ITS Impressions Chest X-Ray 10/02/24 06:45 Impression: Normal chest. Abdomen/Pelvis CT 10/02/24 07:39 Impression: Questionable infectious/inflammatory colitis of the cecum/proximal ascending colon versus underdistention. Correlate clinically. Diffuse hepatic steatosis. Normal appendix. Abdomen X-Ray 10/03/24 08:38 IMPRESSION: 1. Normal bowel gas pattern. Labs Labs: Laboratory Results - last 24 hr 10/05/24 10/05/24 10/05/24 16:00 16:36 17:23 Sodium 132 L Potassium 3.6 Chloride 100 Carbon Dioxide 24 Anion Gap 8 BUN 5 L Creatinine 0.43 L Estim Creat Clear Calc 127 Estimated GFR > 60 Glucose 147 H POC Capillary Glucose 156 H 144 H Calcium 9.0 10/05/24 10/05/24 10/05/24 18:33 19:18 19:50 Sodium 133 L Potassium 3.6 Chloride 97 L Carbon Dioxide 26 Anion Gap 10 BUN 6 L Creatinine 0.48 L Estim Creat Clear Calc 115 Estimated GFR > 60 Glucose 188 H POC Capillary Glucose 160 H 177 H Calcium 9.3 10/05/24 10/05/24 10/05/24 20:11 21:10 22:11 Sodium Potassium Chloride Carbon Dioxide Anion Gap BUN Creatinine Estim Creat Clear Calc Estimated GFR Glucose POC Capillary Glucose 180 H 201 H 205 H Calcium 10/05/24 10/05/24 10/06/24 22:55 23:16 00:22 Sodium 130 L Potassium 3.9 Chloride 97 L Carbon Dioxide 25 Anion Gap 8 BUN 6 L Creatinine 0.42 L Estim Creat Clear Calc 129 Estimated GFR > 60 Glucose 206 H POC Capillary Glucose 216 H 218 H Calcium 9.0 10/06/24 10/06/24 10/06/24 01:15 02:20 03:29 Sodium Potassium Chloride Carbon Dioxide Anion Gap BUN Creatinine Estim Creat Clear Calc Estimated GFR Glucose POC Capillary Glucose 221 H 212 H 174 H Calcium 10/06/24 10/06/2425 04:01 05:16 06:24 Sodium 132 L Potassium 3.6 Chloride 101 Carbon Dioxide 24 Anion Gap 7 BUN 6 L Creatinine 0.48 L Estim Creat Clear Calc 115 Estimated GFR > 60 Glucose 159 H POC Capillary Glucose 202 H 220 H Calcium 9.1 10/06/24 10/06/24 10/06/24 07:35 07:51 08:33 Sodium 133 L Potassium 4.0 Chloride 98 Carbon Dioxide 26 Anion Gap 9 BUN 6 L Creatinine 0.51 L Estim Creat Clear Calc 109 Estimated GFR > 60 Glucose 227 H POC Capillary Glucose 225 H 259 H Calcium 9.1 10/06/24 10/06/24 09:32 11:19 Sodium Potassium Chloride Carbon Dioxide Anion Gap BUN Creatinine Estim Creat Clear Calc Estimated GFR Glucose POC Capillary Glucose 225 H 245 H Calcium
[2024-10-06 16:48] LABS: Glucose Point of Care 128 mg/dl (65-105)
[2024-10-06] MEDS: GABAPENTIN 300 MG CAPSULE PO (19:48)
[2024-10-06 20:07] LABS: Glucose Point of Care 241 mg/dl (65-105)
[2024-10-06 20:25] LABS: Anion Gap 11 mmol/L (4-12); Blood Urea Nitrogen 8 mg/dL (7-17); Calcium 9.3 mg/dL (8.4-10.2); Carbon Dioxide 23 mmol/L (22-30); Chloride 97 mmol/L (98-107); Estimated CRCL calculation 102 ml/min; Estimated Glomerular Filt Rate > 60; Glucose 237 mg/dL (65-110); Potassium 4.5 mmol/L (3.4-5.0); Sodium 131 mmol/L (137-145)
[2024-10-06 23:34] LABS: Glucose Point of Care 189 mg/dl (65-105)
[2024-10-07] VITALS (14 sets, daily range): BP systolic 112–160; BP diastolic 71–93; PULSE 97–122; RESP 12–26; TEMP 36.9–37.1; O2SAT 95–98
[2024-10-07] MEDS: METOCLOPRAMIDE HCL INJ 10 MG/2 ML VIAL IV PUSH ×4 (05:09→23:42)
[2024-10-07] MEDS: diphenhydrAMINE HCl INJ 50 MG/ML VIAL 25 MG IV PUSH ×4 (05:09→23:42)
[2024-10-07 05:13] LABS: Basophils Percent Auto 0.3 % (0.2-1.2); Eosinophils Absolute Auto 0.3 K/mm3 (0-0.3); Eosinophils Percent Auto 3.4 % (0-4.4); Hematocrit 37.1 % (37.0-47.0); Hemoglobin 12.1 g/dL (12.0-15.0); Immature Granulocyte Absolute 0.02 K/mm3 (0.00-0.031); Immature Granulocyte Percent A 0.3 % (0-0.5); Lymphocytes Absolute Auto 1.81 K/mm3 (0.9-3.2); Lymphocytes Percent Auto 22.7 % (18.3-44.2); Mean Corpuscular HGB Conc 32.6 g/dl (32-36); Mean Corpuscular Hemoglobin 25.5 pg (26-34); Mean Corpuscular Volume 78.1 fl (80-100); Mean Platelet Volume 10.1 fl (7.4-10.4); Monocytes Absolute Auto 1.2 K/mm3 (0.1-0.6); Neutrophils Absolute Auto 4.7 K/mm3 (1.3-6.7); Neutrophils Percent Auto 58.3 % (45.5-73.1); Platelet Count Result 279 k/mm3 (150-375); Red Blood Count 4.75 M/mm3 (4.2-5.4)
[2024-10-07 05:30] LABS: Phosphorus 4.2 mg/dL (2.5-4.5)
[2024-10-07] MEDS: CALCIUM CARBONATE (TUMS) 500 MG (200 MG ELEMENTAL) PO ×3 (05:30→19:58)
[2024-10-07 05:31] LABS: Alanine Aminotransferase 25 U/L (6-35); Albumin Level 3.7 g/dL (3.5-5.1); Alkaline Phosphatase 84 U/L (38-126); Anion Gap 14 mmol/L (4-12); Aspartate Amino Transferase 26 U/L (14-36); Bilirubin,Total 0.9 mg/dL (0.2-1.3); Blood Urea Nitrogen 10 mg/dL (7-17); Calcium 9.4 mg/dL (8.4-10.2); Carbon Dioxide 23 mmol/L (22-30); Chloride 95 mmol/L (98-107); Estimated CRCL calculation 82 ml/min; Estimated Glomerular Filt Rate > 60; Glucose 229 mg/dL (65-110); Magnesium 1.4 mg/dL (1.6-2.3); Potassium 4.3 mmol/L (3.4-5.0); Sodium 132 mmol/L (137-145)
[2024-10-07] MEDS: HYDROmorphone HCL INJ (*CRX) 1 MG/ML SYR 0.5 MG IV PUSH (06:04)
[2024-10-07] MEDS: INSULIN ASPART (*BKC) 100 UNITS/ML SUB-Q ×3 (06:05→12:09)
[2024-10-07 07:52] LABS: Glucose Point of Care 278 mg/dl (65-105)
[2024-10-07] MEDS: METOPROLOL TARTRATE 25 MG TABLET PO ×2 (08:14→19:57)
[2024-10-07] MEDS: INSULIN GLARGINE (*BKC) 100 UNITS/ML 42 UNITS SUB-Q (08:14)
[2024-10-07] MEDS: PANTOPRAZOLE SODIUM IV 40 MG VIAL IV PUSH ×2 (08:14→19:58)
[2024-10-07] MEDS: ENOXAPARIN 40 MG/0.4 ML SYRINGE SUB-Q (08:20)
[2024-10-07] MEDS: PROCHLORPERAZINE EDISYLATE 10 MG/2 ML VIAL IV PUSH ×2 (08:20→13:31)
[2024-10-07] MEDS: MAGNESIUM SULF 2 GM/WATER 50ML 2 GM/50 ML BAG IVPB (08:22)
--- NOTE | 2024-10-07 11:23 | PCFNICU ---
ICU Rounding Note: Pt current nutrition is Full liquids. Nutrition recommendation: when advancing recommend DBCC diet. Last recorded weight is 56.3 kg, down from 66.5 kg on admit. Bowel Motility: No BM reported at this time. Labs Reviewed: Glu 229, Mg 1.4, Na 132 Meds Noted:Reglan, Lopressor, Lantus, Protonix. Skin: WNL Additional Notes: Patient is starting to tolerate full liquids. Juice, applesauce and pudding noted. When advancing recommend a DBCC diet. Agree with diet orders at this time. Following daily in ICU rounds.
[2024-10-07 11:59] LABS: Glucose Point of Care 257 mg/dl (65-105)
--- NOTE | 2024-10-07 12:07 | P.PNGI_ITS ---
Progress Note: A&P Assessment and Plan (1) Nausea and vomiting: Qualifiers: Vomiting type: unspecified Qualified Code(s): R11.2 - Nausea with vomiting, unspecified Code(s): R11.2 - Nausea with vomiting, unspecified Status: Acute Assessment and Plan: chronic, on antiemetics at home dka resolved diet as tolerated (2) Cannabinoid hyperemesis syndrome: Code(s): R11.2 - Nausea with vomiting, unspecified; F12.90 - Cannabis use, unspecified, uncomplicated Status: Acute Assessment and Plan: advised to quit altogether (3) Gastroparesis: Code(s): K31.84 - Gastroparesis Status: Acute Assessment and Plan: on reglan and she is eating hopefully home soon and then she can follow-up in office (4) Uncontrolled type 1 diabetes mellitus: Qualifiers: Glycemic state: with hyperglycemia Qualified Code(s): E10.65 - Type 1 diabetes mellitus with hyperglycemia Status: Acute (5) DKA (diabetic ketoacidosis): Qualifiers: Diabetes mellitus complication detail: without coma Diabetes mellitus type: type 1 Qualified Code(s): E10.10 - Type 1 diabetes mellitus with ketoacidosis without coma Code(s): E11.10 - Type 2 diabetes mellitus with ketoacidosis without coma Status: Acute Assessment and Plan: resolved Subjective Date/time seen: 10/07/24 12:07 Interval history: still some nausea, she is trying to eat, no major changes Review of Systems Review of Systems: All systems reviewed & are unremarkable except as noted in HPI and below Exam Narrative: General: Pleasant female, no acute distress HEENT:? Pupils equal and reactive, sclera is clear Neck:? Supple Respiratory: clear to auscultation, adequate air entry, no wheezing Cardiac:? Sinus tachycardia, S1-S2 is normal Abdomen:? Soft, nondistended, abdominal tenderness much improved, normoactive bowel sounds Extremities:? No edema Neuro:? Patient is awake, alert, oriented, able to answer questions appropriately and follows simple commands in all extremities Skin:? Warm and dry Psych:? Normal mentation and affect Objective Data Vital Signs Vital Signs: Vital Signs - 24 hr 10/06/24 14:00 10/06/24 14:00 10/06/24 16:00 Temperature 98.1 F Pulse Rate 102 H 102 H 109 H Respiratory Rate 19 Blood Pressure 153/93 H Pulse Oximetry 98 Oxygen Delivery 10/06/24 16:00 10/06/24 17:58 10/06/24 17:58 Temperature 98.0 F Pulse Rate 108 H 109 H 109 H Respiratory Rate 16 23 H Blood Pressure 160/100 H 145/81 H Pulse Oximetry 98 98 Oxygen Delivery 10/06/24 19:48 10/06/24 20:00 10/06/24 20:00 Temperature 98 F Pulse Rate 122 H 120 H Respiratory Rate 20 Blood Pressure 144/86 H Pulse Oximetry 98 Oxygen Delivery Room Air 10/06/24 20:00 10/06/24 22:00 10/06/24 22:00 Temperature Pulse Rate 120 H 94 93 Respiratory Rate 16 Blood Pressure 138/84 Pulse Oximetry 98 Oxygen Delivery 10/06/24 23:16 10/06/24 23:56 10/07/24 00:00 Temperature 98.2 F Pulse Rate 100 103 H Respiratory Rate 16 Blood Pressure 138/84 Pulse Oximetry 98 Oxygen Delivery Room Air 10/07/24 02:00 10/07/24 03:52 10/07/24 03:55 Temperature 98.5 F Pulse Rate 104 H 111 H Respiratory Rate 24 H 24 H Blood Pressure 117/71 117/71 Pulse Oximetry 97 98 Oxygen Delivery Room Air 10/07/24 04:00 10/07/24 05:20 10/07/24 05:50 Temperature Pulse Rate 110 H 113 H 117 H Respiratory Rate 26 H Blood Pressure 127/73 Pulse Oximetry 97 Oxygen Delivery 10/07/24 08:00 10/07/24 08:14 Temperature 98.7 F Pulse Rate 117 H 122 H Respiratory Rate 18 Blood Pressure 160/93 H Pulse Oximetry 98 Oxygen Delivery Intake/Output Intake/Output: Intake & Output 10/04/24 10/05/24 10/06/24 10/07/24 23:59 23:59 23:59 23:59 Intake Total 4098.1 4402.8 3011.6 240 Output Total 7400 4320 3000 1000 Balance -3301.9 82.8 11.6 -760 Meds/Results Medications: Active Medications Generic Name Dose Route Start Last Admin Trade Name Freq PRN Reason Stop Dose Admin Calcium Carbonate 200 mg 10/03/24 23:14 10/07/24 05:30 Calcium Carbonate (Tums) 500 Mg (200 Mg Elemental) PO 200 mg Q4HR PRN Administration Indigestion Capsaicin 1 applic 10/03/24 06:00 10/07/24 04:22 Capsaicin 0.025% Cream 60 Gm Tube TOPICAL Not Given Q6HR KARRIE Dextrose 12.5 gm 10/03/24 13:10 Dextrose 50% 25 Gm/50 Ml Syringe IV PUSH PRN PRN Hypoglycemia Protocol Diphenhydramine HCl 25 mg 10/05/24 11:00 10/07/24 05:09 Diphenhydramine Hcl Inj 50 Mg/Ml Vial IV PUSH 25 mg Q6HR KARRIE Administration Enoxaparin Sodium 40 mg 10/02/24 13:30 10/07/24 08:20 Enoxaparin 40 Mg/0.4 Ml Syringe SUB-Q 40 mg DAILY KARRIE Administration Gabapentin 300 mg 10/06/24 21:00 10/06/24 19:48 Gabapentin 300 Mg Capsule PO 300 mg QHS KARRIE Administration Glucagon 1 mg 10/03/24 13:10 Glucagon For Inj 1 Mg Vial IM PRN PRN Hypoglycemia Protocol Glucose 15 gm 10/03/24 13:10 Glucose Oral Gel 15 Gm Of Glucse In 37.5 Gm Tube PO PRN PRN Hypoglycemia Protocol Hydromorphone HCl 0.5 mg 10/03/24 08:38 10/07/24 06:04 Hydromorphone Hcl Inj (*Crx) 1 Mg/Ml Syr IV PUSH 0.5 mg Q3H PRN Administration Pain Rated 7-10 Dextrose 1,000 mls @ 100 mls/hr 10/03/24 13:10 Dextrose 5% 1,000 Ml IVPB PRN PRN Hypoglycemia Protocol Insulin Aspart 4 - 8 units 10/06/24 09:30 10/07/24 08:15 Insulin Aspart (*Bkc) 100 Units/Ml SUB-Q 5 units Q4HR KARRIE Administration Protocol Insulin Glargine 42 units 10/07/24 09:00 10/07/24 08:14 Insulin Glargine (*Bkc) 100 Units/Ml SUB-Q 42 units DAILY KARRIE Administration Metoclopramide HCl 10 mg 10/03/24 18:00 10/07/24 05:09 Metoclopramide Hcl Inj 10 Mg/2 Ml Vial IV PUSH 10 mg Q6HR KARRIE Administration Metoprolol Tartrate 25 mg 10/06/24 09:25 10/07/24 08:14 Metoprolol Tartrate 25 Mg Tablet PO 25 mg Q12HR KARRIE Administration Pantoprazole Sodium 40 mg 10/06/24 21:00 10/07/24 08:14 Pantoprazole Sodium Iv 40 Mg Vial IV PUSH 40 mg Q12HR KARRIE Administration Prochlorperazine Edisylate 10 mg 10/03/24 08:37 10/07/24 08:20 Prochlorperazine Edisylate 10 Mg/2 Ml Vial IV PUSH 10 mg Q4H PRN Administration Nausea And Vomiting Promethazine HCl 12.5 mg 10/04/24 17:51 10/06/24 18:12 Promethazine Hcl 25 Mg/Ml Ampul IV PUSH 12.5 mg Q6H PRN Administration Nausea And Vomiting Scopolamine 1 patch 10/03/24 11:01 10/06/24 08:42 Scopolamine 1 Mg Patch TRANSDERM 1 patch Q72HR KARRIE Administration Radiology Results: ITS Impressions Chest X-Ray 10/02/24 06:45 Impression: Normal chest. Abdomen/Pelvis CT 10/02/24 07:39 Impression: Questionable infectious/inflammatory colitis of the cecum/proximal ascending colon versus underdistention. Correlate clinically. Diffuse hepatic steatosis. Normal appendix. Abdomen X-Ray 10/03/24 08:38 IMPRESSION: 1. Normal bowel gas pattern. Labs Labs: Laboratory Results - last 24 hr 10/06/24 10/06/24 10/06/24 16:41 19:58 23:24 WBC RBC Hgb Hct MCV MCH MCHC RDW Plt Count MPV Immature Gran % (Auto) Neut % (Auto) Lymph % (Auto) [place] % (Auto) Eos % (Auto) Baso % (Auto) Lymph # (Auto) [place] # (Auto) Eos # (Auto) Baso # (Auto) Abs Immat Gran (auto) Absolute Neuts (auto) Absolute Nucleated RBC Nucleated RBC % Sodium 131 L Potassium 4.5 Chloride 97 L Carbon Dioxide 23 Anion Gap 11 BUN 8 Creatinine 0.55 L Estim Creat Clear Calc 102 Estimated GFR > 60 Glucose 237 H POC Capillary Glucose 128 H 241 H 189 H Calcium 9.3 Phosphorus Magnesium Total Bilirubin AST ALT Alkaline Phosphatase Total Protein Albumin 10/07/24 10/07/24 10/07/24 04:42 07:36 11:43 WBC 8.0 RBC 4.75 Hgb 12.1 Hct 37.1 MCV 78.1 L MCH 25.5 L MCHC 32.6 RDW 15.0 H Plt Count 279 MPV 10.1 Immature Gran % (Auto) 0.3 Neut % (Auto) 58.3 Lymph % (Auto) 22.7 [place] % (Auto) 15.0 H Eos % (Auto) 3.4 Baso % (Auto) 0.3 Lymph # (Auto) 1.81 [place] # (Auto) 1.2 H Eos # (Auto) 0.3 Baso # (Auto) 0.0 Abs Immat Gran (auto) 0.02 Absolute Neuts (auto) 4.7 Absolute Nucleated RBC 0.000 Nucleated RBC % 0.0 Sodium 132 L Potassium 4.3 Chloride 95 L Carbon Dioxide 23 Anion Gap 14 H BUN 10 Creatinine 0.70 Estim Creat Clear Calc 82 Estimated GFR > 60 Glucose 229 H POC Capillary Glucose 278 H 257 H Calcium 9.4 Phosphorus 4.2 Magnesium 1.4 L Total Bilirubin 0.9 AST 26 ALT 25 Alkaline Phosphatase 84 Total Protein 7.0 Albumin 3.7
--- NOTE | 2024-10-07 12:38 | WPDINTPN ---
Progress Note: A&P Assessment and Plan (1) Cannabinoid hyperemesis syndrome: Code(s): R11.2 - Nausea with vomiting, unspecified; F12.90 - Cannabis use, unspecified, uncomplicated Status: Acute Assessment and Plan: Patient has a history of cannabinoid hyperemesis syndrome, continues to smoke marijuana on a daily basis -have counseled patient on cessation of marijuana usage -if vomiting does not improve will try a dose of Ativan (-10/02: gave her dose of Ativan this morning with some improvement) -continue scopolamine patch for intractable vomiting -she is also on capsaicin cream to the abdomen, for cannabinoid hyperemesis syndrome -currently on Phenergan, Compazine, Reglan, scopolamine patch, Benadryl -appreciate GI evaluation and recommend GI evaluation, recommends continuing what we are doing, likely related to 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 Recommended Cessation of marijuana use (2) DKA (diabetic ketoacidosis): Qualifiers: Diabetes mellitus complication detail: without coma Diabetes mellitus type: type 1 Qualified Code(s): E10.10 - Type 1 diabetes mellitus with ketoacidosis without coma Code(s): E11.10 - Type 2 diabetes mellitus with ketoacidosis without coma Status: Acute Assessment and Plan: 10/02: Patient presented with nausea, vomiting, diarrhea, abdominal pain -states that her insulin pump fell off or is malfunctioning -in the ER patient was found to be in severe anion gap metabolic acidosis with hyperglycemia -diagnosed with diabetic ketoacidosis, given 3 L IV fluid bolus and started on insulin infusion per DKA protocol and transferred to the ICU for further management. -10/02: will give additional 1 L IV fluid bolus in the ICU (they will be a total of 4 L IV fluid bolus since admission) -continue insulin infusion per DKA protocol -10/03: Anion gap had closed, patient transitioned to long-acting insulin and sliding scale insulin. Late in the evening on the same day she continue have severe nausea and vomiting, BMP showed elevated anion gap and metabolic acidosis. Insulin infusion was restarted per DKA protocol -continue insulin infusion for now per DKA protocol 10/05: patient's anion gap is closed and his CO2 is 25. But continues to have intractable nausea and vomiting. Will continue insulin infusion for now as she is unable to take anything oral and I worry that she if she continues to have intractable vomiting, giving a long-acting insulin mid dropped her blood sugars and may cause hypoglycemia 10/06: Patient's anion gap has closed since the last 5 instances on her BMPs. CO2 has been normal since 10/04/2024. -discussed with patient this morning, will transition her to Lantus and sliding scale insulin, have encouraged the patient to start full liquid diet and advanced as tolerated to diabetic diet. Patient is agreeable -10/07: Increase Lantus, continue sliding scale insulin. She is tolerating sure p.o. intake a little better. Continue to monitor (3) Type 1 diabetes mellitus: Qualifiers: Diabetes mellitus complication status: with hyperglycemia Qualified Code(s): E10.65 - Type 1 diabetes mellitus with hyperglycemia Code(s): E10.9 - Type 1 diabetes mellitus without complications Status: Acute Assessment and Plan: Patient has a longstanding history of type 1 diabetes with neuropathy, gastroparesis -hemoglobin A1c is 8.2 this admit -appreciate healthcare educator and dietitian evaluating the patient (4) Colitis: Code(s): K52.9 - Noninfective gastroenteritis and colitis, unspecified Status: Acute Assessment and Plan: Patient also presented with abdominal pain, nausea and vomiting CT abdomen and pelvis: Questionable infectious/inflammatory colitis of the cecum/proximal ascending colon versus underdistention. Correlate clinically. Diffuse hepatic steatosis. Normal appendix. -status post 5 days of ceftriaxone and metronidazole -continue Dilaudid for pain -10/02: Continues to have abdominal pain, obstructive series showed normal bowel gas pattern, no free intraperitoneal gas. -10/06: white count has normalized, afebrile. Will continue antibiotics for total of 5 days (5) Tobacco abuse: Code(s): Z72.0 - Tobacco use Status: Acute Assessment and Plan: Continues to smoke 1 packet per day, counseled patient on cessation of tobacco use (6) Hypomagnesemia: Code(s): E83.42 - Hypomagnesemia Status: Acute Assessment and Plan: Magnesium was replaced on 10/05/2024 (7) Gastroparesis: Code(s): K31.84 - Gastroparesis Status: Acute Assessment and Plan: Continue Reglan Plan DVT prophylaxis: Lovenox Stress ulcer prophylaxis: Protonix Nutrition: full liquid diet, advanced as tolerated to diabetic diet Code Status: Full code Critical Care Time Spent: 31 minutes Patient be transferred to medical floor Discussed with patient at length regarding switching her to Lantus and sliding scale insulin as she cannot be on insulin infusion for prolonged amount of times did since her anion gap and CO2 have normalized since . She is agreeable to try full liquid diet and switched to Lantus at this time. Will continue to monitor blood sugars closely. Due to a high probability of clinically significant, life threatening deterioration, the patient required my highest level of preparedness to intervene emergently and I personally spent this critical care time directly and personally managing the patient. This critical care time included obtaining a history; examining the patient; pulse oximetry; ordering and review of studies; arranging urgent treatment with development of a management plan; evaluation of patient's response to treatment; frequent reassessment; and discussions with other providers. It was exclusive of separately billable procedures and treating other patients and teaching time. Please see Assessment and Plan section and the rest of the note for further information on patient assessment and treatment This dictation may have been done utilizing a voice recognition system. Attempts have been made to correct errors. However, there may be uncorrected grammatical, spelling, and recognitions errors present. Subjective Date/time seen: 10/07/24 12:38 Interval history: Reason for consult: Diabetic ketoacidosis, hyperglycemia, metabolic acidosis, infectious/inflammatory colitis, marijuana use 10/07/2024: Patient seen examined the ICU, on a off insulin infusion, nausea and vomiting has improved, still requiring scheduled antiemetics and pain medications. Patient is afebrile, has adequate urine output, hemodynamically stable, tachycardic. States abdominal pain is better this morning. Denies any shortness of breath, chest pain Review of Systems Review of Systems: All systems reviewed & are unremarkable except as noted in HPI and below Exam Narrative: General: Pleasant female, looks better this morning, not so ill-appearing HEENT:? Pupils equal and reactive, sclera is clear, dry oral mucosa Neck:? Supple Respiratory: clear to auscultation, adequate air entry, no wheezing Cardiac:? Sinus tachycardia has resolved,, S1-S2 is normal Abdomen:? Soft, nondistended, abdominal tenderness much improved, normoactive bowel sounds Extremities:? No edema, palpable pedal pulse Neuro:? Patient is awake, alert, oriented, able to answer questions appropriately and follows simple commands in all extremities Skin:? Warm and dry Psych:? Normal mentation and affect Objective Data Vital Signs Vital Signs: Vital Signs - 24 hr 10/06/24 14:00 10/06/24 14:00 10/06/24 16:00 Temperature 98.1 F Pulse Rate 102 H 102 H 109 H Respiratory Rate 19 Blood Pressure 153/93 H Pulse Oximetry 98 Oxygen Delivery 10/06/24 16:00 10/06/24 17:58 10/06/24 17:58 Temperature 98.0 F Pulse Rate 108 H 109 H 109 H Respiratory Rate 16 23 H Blood Pressure 160/100 H 145/81 H Pulse Oximetry 98 98 Oxygen Delivery 10/06/24 19:48 10/06/24 20:00 10/06/24 20:00 Temperature 98 F Pulse Rate 122 H 120 H Respiratory Rate 20 Blood Pressure 144/86 H Pulse Oximetry 98 Oxygen Delivery Room Air 10/06/24 20:00 10/06/24 22:00 10/06/24 22:00 Temperature Pulse Rate 120 H 94 93 Respiratory Rate 16 Blood Pressure 138/84 Pulse Oximetry 98 Oxygen Delivery 10/06/24 23:16 10/06/24 23:56 10/07/24 00:00 Temperature 98.2 F Pulse Rate 100 103 H Respiratory Rate 16 Blood Pressure 138/84 Pulse Oximetry 98 Oxygen Delivery Room Air 10/07/24 02:00 10/07/24 03:52 10/07/24 03:55 Temperature 98.5 F Pulse Rate 104 H 111 H Respiratory Rate 24 H 24 H Blood Pressure 117/71 117/71 Pulse Oximetry 97 98 Oxygen Delivery Room Air 10/07/24 04:00 10/07/24 05:20 10/07/24 05:50 Temperature Pulse Rate 110 H 113 H 117 H Respiratory Rate 26 H Blood Pressure 127/73 Pulse Oximetry 97 Oxygen Delivery 10/07/24 08:00 10/07/24 08:14 Temperature 98.7 F Pulse Rate 117 H 122 H Respiratory Rate 18 Blood Pressure 160/93 H Pulse Oximetry 98 Oxygen Delivery Intake/Output Intake/Output: Intake & Output 10/04/24 10/05/24 10/06/24 10/07/24 23:59 23:59 23:59 23:59 Intake Total 4098.1 4402.8 3011.6 240 Output Total 7400 4320 3000 1000 Balance -3301.9 82.8 11.6 -760 Meds/Results Medications: Active Medications Generic Name Dose Route Start Last Admin Trade Name Freq PRN Reason Stop Dose Admin Calcium Carbonate 200 mg 10/03/24 23:14 10/07/24 05:30 Calcium Carbonate (Tums) 500 Mg (200 Mg Elemental) PO 200 mg Q4HR PRN Administration Indigestion Capsaicin 1 applic 10/03/24 06:00 10/07/24 12:08 Capsaicin 0.025% Cream 60 Gm Tube TOPICAL Not Given Q6HR KARRIE Dextrose 12.5 gm 10/03/24 13:10 Dextrose 50% 25 Gm/50 Ml Syringe IV PUSH PRN PRN Hypoglycemia Protocol Diphenhydramine HCl 25 mg 10/05/24 11:00 10/07/24 12:09 Diphenhydramine Hcl Inj 50 Mg/Ml Vial IV PUSH 25 mg Q6HR KARRIE Administration Enoxaparin Sodium 40 mg 10/02/24 13:30 10/07/24 08:20 Enoxaparin 40 Mg/0.4 Ml Syringe SUB-Q 40 mg DAILY KARRIE Administration Gabapentin 300 mg 10/06/24 21:00 10/06/24 19:48 Gabapentin 300 Mg Capsule PO 300 mg QHS KARRIE Administration Glucagon 1 mg 10/03/24 13:10 Glucagon For Inj 1 Mg Vial IM PRN PRN Hypoglycemia Protocol Glucose 15 gm 10/03/24 13:10 Glucose Oral Gel 15 Gm Of Glucse In 37.5 Gm Tube PO PRN PRN Hypoglycemia Protocol Hydromorphone HCl 0.5 mg 10/03/24 08:38 10/07/24 06:04 Hydromorphone Hcl Inj (*Crx) 1 Mg/Ml Syr IV PUSH 0.5 mg Q3H PRN Administration Pain Rated 7-10 Dextrose 1,000 mls @ 100 mls/hr 10/03/24 13:10 Dextrose 5% 1,000 Ml IVPB PRN PRN Hypoglycemia Protocol Insulin Aspart 4 - 8 units 10/06/24 09:30 10/07/24 12:09 Insulin Aspart (*Bkc) 100 Units/Ml SUB-Q 5 units Q4HR KARRIE Administration Protocol Insulin Glargine 42 units 10/07/24 09:00 10/07/24 08:14 Insulin Glargine (*Bkc) 100 Units/Ml SUB-Q 42 units DAILY KARRIE Administration Metoclopramide HCl 10 mg 10/03/24 18:00 10/07/24 12:09 Metoclopramide Hcl Inj 10 Mg/2 Ml Vial IV PUSH 10 mg Q6HR KARRIE Administration Metoprolol Tartrate 25 mg 10/06/24 09:25 10/07/24 08:14 Metoprolol Tartrate 25 Mg Tablet PO 25 mg Q12HR KARRIE Administration Pantoprazole Sodium 40 mg 10/06/24 21:00 10/07/24 08:14 Pantoprazole Sodium Iv 40 Mg Vial IV PUSH 40 mg Q12HR KARRIE Administration Prochlorperazine Edisylate 10 mg 10/03/24 08:37 10/07/24 08:20 Prochlorperazine Edisylate 10 Mg/2 Ml Vial IV PUSH 10 mg Q4H PRN Administration Nausea And Vomiting Promethazine HCl 12.5 mg 10/04/24 17:51 10/06/24 18:12 Promethazine Hcl 25 Mg/Ml Ampul IV PUSH 12.5 mg Q6H PRN Administration Nausea And Vomiting Scopolamine 1 patch 10/03/24 11:01 10/06/24 08:42 Scopolamine 1 Mg Patch TRANSDERM 1 patch Q72HR KARRIE Administration Radiology Results: ITS Impressions Chest X-Ray 10/02/24 06:45 Impression: Normal chest. Abdomen/Pelvis CT 10/02/24 07:39 Impression: Questionable infectious/inflammatory colitis of the cecum/proximal ascending colon versus underdistention. Correlate clinically. Diffuse hepatic steatosis. Normal appendix. Abdomen X-Ray 10/03/24 08:38 IMPRESSION: 1. Normal bowel gas pattern. Labs Labs: Laboratory Results - last 24 hr 10/06/24 10/06/24 10/06/24 16:41 19:58 23:24 WBC RBC Hgb Hct MCV MCH MCHC RDW Plt Count MPV Immature Gran % (Auto) Neut % (Auto) Lymph % (Auto) [place] % (Auto) Eos % (Auto) Baso % (Auto) Lymph # (Auto) [place] # (Auto) Eos # (Auto) Baso # (Auto) Abs Immat Gran (auto) Absolute Neuts (auto) Absolute Nucleated RBC Nucleated RBC % Sodium 131 L Potassium 4.5 Chloride 97 L Carbon Dioxide 23 Anion Gap 11 BUN 8 Creatinine 0.55 L Estim Creat Clear Calc 102 Estimated GFR > 60 Glucose 237 H POC Capillary Glucose 128 H 241 H 189 H Calcium 9.3 Phosphorus Magnesium Total Bilirubin AST ALT Alkaline Phosphatase Total Protein Albumin 10/07/24 10/07/24 10/07/24 04:42 07:36 11:43 WBC 8.0 RBC 4.75 Hgb 12.1 Hct 37.1 MCV 78.1 L MCH 25.5 L MCHC 32.6 RDW 15.0 H Plt Count 279 MPV 10.1 Immature Gran % (Auto) 0.3 Neut % (Auto) 58.3 Lymph % (Auto) 22.7 [place] % (Auto) 15.0 H Eos % (Auto) 3.4 Baso % (Auto) 0.3 Lymph # (Auto) 1.81 [place] # (Auto) 1.2 H Eos # (Auto) 0.3 Baso # (Auto) 0.0 Abs Immat Gran (auto) 0.02 Absolute Neuts (auto) 4.7 Absolute Nucleated RBC 0.000 Nucleated RBC % 0.0 Sodium 132 L Potassium 4.3 Chloride 95 L Carbon Dioxide 23 Anion Gap 14 H BUN 10 Creatinine 0.70 Estim Creat Clear Calc 82 Estimated GFR > 60 Glucose 229 H POC Capillary Glucose 278 H 257 H Calcium 9.4 Phosphorus 4.2 Magnesium 1.4 L Total Bilirubin 0.9 AST 26 ALT 25 Alkaline Phosphatase 84 Total Protein 7.0 Albumin 3.7 Quality VTE Prophylaxis VTE prophylaxis: pharmacologic ordered
[2024-10-07] MEDS: INSULIN GLARGINE (*BKC) 100 UNITS/ML 10 UNITS SUB-Q (13:29)
[2024-10-07] MEDS: SODIUM CHLORIDE 0.9% IV 1,000 ML 999 ML IV CONT (13:30)
[2024-10-07 16:54] LABS: Glucose Point of Care 98 mg/dl (65-105)
[2024-10-07] MEDS: PROMETHAZINE HCL 25 MG/ML AMPUL 12.5 MG IV PUSH (17:05)
[2024-10-07] MEDS: GABAPENTIN 300 MG CAPSULE PO (19:58)
[2024-10-07 20:08] LABS: Glucose Point of Care 174 mg/dl (65-105)
[2024-10-07] MEDS: MELATONIN 5 MG TABLET 10 MG PO (23:42)
[2024-10-08] VITALS (7 sets, daily range): BP systolic 100–139; BP diastolic 50–102; PULSE 89–117; RESP 16–18; TEMP 36.3–37.5; O2SAT 98–100
[2024-10-08 00:12] LABS: Glucose Point of Care 72 mg/dl (65-105)
[2024-10-08] MEDS: PROCHLORPERAZINE EDISYLATE 10 MG/2 ML VIAL IV PUSH (01:39)
[2024-10-08 03:44] LABS: Basophils Percent Auto 0.4 % (0.2-1.2); Eosinophils Absolute Auto 0.3 K/mm3 (0-0.3); Eosinophils Percent Auto 3.3 % (0-4.4); Hematocrit 33.2 % (37.0-47.0); Hemoglobin 10.8 g/dL (12.0-15.0); Immature Granulocyte Absolute 0.02 K/mm3 (0.00-0.031); Immature Granulocyte Percent A 0.2 % (0-0.5); Lymphocytes Percent Auto 19.9 % (18.3-44.2); Mean Corpuscular HGB Conc 32.5 g/dl (32-36); Mean Corpuscular Hemoglobin 25.5 pg (26-34); Mean Corpuscular Volume 78.5 fl (80-100); Mean Platelet Volume 10.5 fl (7.4-10.4); Monocytes Absolute Auto 1.1 K/mm3 (0.1-0.6); Monocytes Percent Auto 12.4 % (2.6-8.5); Neutrophils Absolute Auto 5.4 K/mm3 (1.3-6.7); Neutrophils Percent Auto 63.8 % (45.5-73.1); Platelet Count Result 280 k/mm3 (150-375); Red Blood Count 4.23 M/mm3 (4.2-5.4); Red Cell Distribution Width 15.4 % (11.5-14.5); White Blood Count 8.5 K/mm3 (4.5-10.0)
[2024-10-08 03:53] LABS: Alanine Aminotransferase 25 U/L (6-35); Albumin Level 3.3 g/dL (3.5-5.1); Alkaline Phosphatase 68 U/L (38-126); Anion Gap 8 mmol/L (4-12); Aspartate Amino Transferase 29 U/L (14-36); Bilirubin,Total 0.8 mg/dL (0.2-1.3); Blood Urea Nitrogen 12 mg/dL (7-17); Carbon Dioxide 27 mmol/L (22-30); Chloride 99 mmol/L (98-107); Estimated CRCL calculation 86 ml/min; Estimated Glomerular Filt Rate > 60; Glucose 137 mg/dL (65-110); Magnesium 1.6 mg/dL (1.6-2.3); Potassium 3.8 mmol/L (3.4-5.0); Sodium 134 mmol/L (137-145)
[2024-10-08] MEDS: METOCLOPRAMIDE HCL INJ 10 MG/2 ML VIAL IV PUSH ×4 (06:31→23:56)
[2024-10-08] MEDS: diphenhydrAMINE HCl INJ 50 MG/ML VIAL 25 MG IV PUSH ×4 (06:31→23:56)
[2024-10-08 07:48] LABS: Glucose Point of Care 136 mg/dl (65-105)
[2024-10-08] MEDS: HYDROmorphone HCL INJ (*CRX) 1 MG/ML SYR 0.5 MG IV PUSH (09:16)
[2024-10-08] MEDS: ENOXAPARIN 40 MG/0.4 ML SYRINGE SUB-Q (09:52)
[2024-10-08] MEDS: MAGNESIUM SULFATE 3GM/D5W100ML 3 GM/100 ML BAG IVPB (09:52)
[2024-10-08] MEDS: METOPROLOL TARTRATE 25 MG TABLET PO (09:52)
[2024-10-08] MEDS: PANTOPRAZOLE SODIUM IV 40 MG VIAL IV PUSH ×2 (09:53→20:27)
[2024-10-08] MEDS: CALCIUM CARBONATE (TUMS) 500 MG (200 MG ELEMENTAL) 400 MG PO (09:54)
[2024-10-08] MEDS: INSULIN GLARGINE (*BKC) 100 UNITS/ML 40 UNITS SUB-Q (09:55)
--- NOTE | 2024-10-08 11:22 | PC.NURSE ---
This patient, Tara Hinkle, was transferred to [facility] on 10/08/24 at 1123 via wheelchair. Personal belongings sent with patient. Appropriate documentation sent with patient.
[2024-10-08 12:04] LABS: Glucose Point of Care 203 mg/dl (65-105)
--- NOTE | 2024-10-08 12:09 | PM.IMPN ---
Progress Note: A&P Assessment and Plan (1) Cannabinoid hyperemesis syndrome: Code(s): R11.2 - Nausea with vomiting, unspecified; F12.90 - Cannabis use, unspecified, uncomplicated Status: Acute Assessment and Plan: Patient has a history of cannabinoid hyperemesis syndrome, continues to smoke marijuana on a daily basis -have counseled patient on cessation of marijuana usage -if vomiting does not improve will try a dose of Ativan (-10/02: gave her dose of Ativan this morning with some improvement) -continue scopolamine patch for intractable vomiting -she is also on capsaicin cream to the abdomen, for cannabinoid hyperemesis syndrome -currently on Phenergan, Compazine, Reglan, scopolamine patch, Benadryl -appreciate GI evaluation and recommend GI evaluation, recommends continuing what we are doing, likely related to 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 Recommended Cessation of marijuana use (2) DKA (diabetic ketoacidosis): Qualifiers: Diabetes mellitus complication detail: without coma Diabetes mellitus type: type 1 Qualified Code(s): E10.10 - Type 1 diabetes mellitus with ketoacidosis without coma Code(s): E11.10 - Type 2 diabetes mellitus with ketoacidosis without coma Status: Acute Assessment and Plan: 10/02: Patient presented with nausea, vomiting, diarrhea, abdominal pain -states that her insulin pump fell off or is malfunctioning -in the ER patient was found to be in severe anion gap metabolic acidosis with hyperglycemia -diagnosed with diabetic ketoacidosis, given 3 L IV fluid bolus and started on insulin infusion per DKA protocol and transferred to the ICU for further management. -10/02: will give additional 1 L IV fluid bolus in the ICU (they will be a total of 4 L IV fluid bolus since admission) -continue insulin infusion per DKA protocol -10/03: Anion gap had closed, patient transitioned to long-acting insulin and sliding scale insulin. Late in the evening on the same day she continue have severe nausea and vomiting, BMP showed elevated anion gap and metabolic acidosis. Insulin infusion was restarted per DKA protocol -continue insulin infusion for now per DKA protocol 10/05: patient's anion gap is closed and his CO2 is 25. But continues to have intractable nausea and vomiting. Will continue insulin infusion for now as she is unable to take anything oral and I worry that she if she continues to have intractable vomiting, giving a long-acting insulin mid dropped her blood sugars and may cause hypoglycemia 10/06: Patient's anion gap has closed since the last 5 instances on her BMPs. CO2 has been normal since 10/04/2024. -discussed with patient this morning, will transition her to Lantus and sliding scale insulin, have encouraged the patient to start full liquid diet and advanced as tolerated to diabetic diet. Patient is agreeable -10/07: Increase Lantus, continue sliding scale insulin. She is tolerating sure p.o. intake a little better. Continue to monitor 0213: Will decrease Lantus as patient is only tolerating liquid diet. Have asked the patient to get her insulin pump so we connect that again she can get a basal rate and adjust the Lantus accordingly before she can be sent home. (3) Type 1 diabetes mellitus: Qualifiers: Diabetes mellitus complication status: with hyperglycemia Qualified Code(s): E10.65 - Type 1 diabetes mellitus with hyperglycemia Code(s): E10.9 - Type 1 diabetes mellitus without complications Status: Acute Assessment and Plan: Patient has a longstanding history of type 1 diabetes with neuropathy, gastroparesis -hemoglobin A1c is 8.2 this admit -appreciate family life educator and dietitian evaluating the patient (4) Colitis: Code(s): K52.9 - Noninfective gastroenteritis and colitis, unspecified Status: Acute Assessment and Plan: Patient also presented with abdominal pain, nausea and vomiting CT abdomen and pelvis: Questionable infectious/inflammatory colitis of the cecum/proximal ascending colon versus underdistention. Correlate clinically. Diffuse hepatic steatosis. Normal appendix. -status post 5 days of ceftriaxone and metronidazole -continue Dilaudid for pain -10/02: Continues to have abdominal pain, obstructive series showed normal bowel gas pattern, no free intraperitoneal gas. -10/06: white count has normalized, afebrile. Will continue antibiotics for total of 5 days (5) Tobacco abuse: Code(s): Z72.0 - Tobacco use Status: Acute Assessment and Plan: Continues to smoke 1 packet per day, counseled patient on cessation of tobacco use (6) Hypomagnesemia: Code(s): E83.42 - Hypomagnesemia Status: Acute Assessment and Plan: 10/08: Replace magnesium (7) Gastroparesis: Code(s): K31.84 - Gastroparesis Status: Acute Assessment and Plan: Continue Reglan Plan DVT prophylaxis: Lovenox Stress ulcer prophylaxis: Protonix Nutrition: full liquid diet, advanced as tolerated to diabetic diet Code Status: Full code . Due to a high probability of clinically significant, life threatening deterioration, the patient required my highest level of preparedness to intervene emergently and I personally spent this critical care time directly and personally managing the patient. This critical care time included obtaining a history; examining the patient; pulse oximetry; ordering and review of studies; arranging urgent treatment with development of a management plan; evaluation of patient's response to treatment; frequent reassessment; and discussions with other providers. It was exclusive of separately billable procedures and treating other patients and teaching time. Please see Assessment and Plan section and the rest of the note for further information on patient assessment and treatment This dictation may have been done utilizing a voice recognition system. Attempts have been made to correct errors. However, there may be uncorrected grammatical, spelling, and recognitions errors present. Subjective Date/time seen: 10/08/24 12:09 Interval history: Reason for consult: Diabetic ketoacidosis, hyperglycemia, metabolic acidosis, infectious/inflammatory colitis, marijuana use 10/08/2024: Patient being seen for the hospitalist group. Is awake, alert. Complains of nausea but no vomiting. Also complains of mild abdominal pain. She has not been able to get her insulin pump from home. Hemodynamically stable, adequate urine output, afebrile, anion gap remains closed, CO2 is normal, blood sugars have have improved. Denies any other problems Review of Systems Review of Systems: All systems reviewed & are unremarkable except as noted in HPI and below Exam Narrative: General: Pleasant female, looks better this morning, not so ill-appearing HEENT:? Pupils equal and reactive, sclera is clear, dry oral mucosa Neck:? Supple Respiratory: clear to auscultation, adequate air entry, no wheezing Cardiac:? Sinus tachycardia has resolved,, S1-S2 is normal Abdomen:? Soft, nondistended, abdominal tenderness much improved, normoactive bowel sounds Extremities:? No edema, palpable pedal pulse Neuro:? Patient is awake, alert, oriented, able to answer questions appropriately and follows simple commands in all extremities Skin:? Warm and dry Psych:? Normal mentation and affect Objective Data Vital Signs Vital Signs: Vital Signs - 24 hr 10/07/24 16:00 10/07/24 16:00 10/07/24 19:57 Temperature 98.6 F Pulse Rate 104 H 103 H 111 H Respiratory Rate 19 Blood Pressure 112/71 Pulse Oximetry 95 Oxygen Delivery 10/07/24 20:00 10/07/24 20:00 10/07/24 22:18 Temperature 98.6 F Pulse Rate 120 H 97 Respiratory Rate 12 Blood Pressure 134/78 Pulse Oximetry 98 Oxygen Delivery Room Air 10/08/24 00:00 10/08/24 04:00 10/08/24 08:00 Temperature Pulse Rate 99 99 109 H Respiratory Rate Blood Pressure Pulse Oximetry Oxygen Delivery 10/08/24 08:00 10/08/24 09:52 Temperature 99.5 F Pulse Rate 113 H 117 H Respiratory Rate 16 Blood Pressure 139/102 H Pulse Oximetry 98 Oxygen Delivery Intake/Output Intake/Output: Intake & Output 10/05/24 10/06/24 10/07/24 10/08/24 23:59 23:59 23:59 23:59 Intake Total 4402.8 3011.6 1240 360 Output Total 4320 3000 2300 1000 Balance 82.8 11.6 -1060 -640 Meds/Results Medications: Active Medications Generic Name Dose Route Start Last Admin Trade Name Freq PRN Reason Stop Dose Admin Calcium Carbonate 400 mg 10/08/24 09:50 10/08/24 09:54 Calcium Carbonate (Tums) 500 Mg (200 Mg Elemental) PO 400 mg Q4HR PRN Administration Indigestion Capsaicin 1 applic 10/03/24 06:00 10/08/24 04:04 Capsaicin 0.025% Cream 60 Gm Tube TOPICAL Not Given Q6HR KARRIE Dextrose 12.5 gm 10/03/24 13:10 Dextrose 50% 25 Gm/50 Ml Syringe IV PUSH PRN PRN Hypoglycemia Protocol Diphenhydramine HCl 25 mg 10/05/24 11:00 10/08/24 06:31 Diphenhydramine Hcl Inj 50 Mg/Ml Vial IV PUSH 25 mg Q6HR KARRIE Administration Enoxaparin Sodium 40 mg 10/02/24 13:30 10/08/24 09:52 Enoxaparin 40 Mg/0.4 Ml Syringe SUB-Q 40 mg DAILY KARRIE Administration Gabapentin 300 mg 10/06/24 21:00 10/07/24 19:58 Gabapentin 300 Mg Capsule PO 300 mg QHS KARRIE Administration Glucagon 1 mg 10/03/24 13:10 Glucagon For Inj 1 Mg Vial IM PRN PRN Hypoglycemia Protocol Glucose 15 gm 10/03/24 13:10 Glucose Oral Gel 15 Gm Of Glucse In 37.5 Gm Tube PO PRN PRN Hypoglycemia Protocol Hydromorphone HCl 0.5 mg 10/03/24 08:38 10/08/24 09:16 Hydromorphone Hcl Inj (*Crx) 1 Mg/Ml Syr IV PUSH 0.5 mg Q3H PRN Administration Pain Rated 7-10 Dextrose 1,000 mls @ 100 mls/hr 10/03/24 13:10 Dextrose 5% 1,000 Ml IVPB PRN PRN Hypoglycemia Protocol Insulin Aspart 4 - 8 units 10/08/24 12:00 Insulin Aspart (*Bkc) 100 Units/Ml SUB-Q TIDWM KARRIE Protocol Insulin Glargine 40 units 10/08/24 09:50 10/08/24 09:55 Insulin Glargine (*Bkc) 100 Units/Ml SUB-Q 40 units DAILY KARRIE Administration Melatonin 10 mg 10/07/24 22:40 10/07/24 23:42 Melatonin 5 Mg Tablet PO 10 mg HS KARRIE Administration Metoclopramide HCl 10 mg 10/03/24 18:00 10/08/24 06:31 Metoclopramide Hcl Inj 10 Mg/2 Ml Vial IV PUSH 10 mg Q6HR KARRIE Administration Metoprolol Tartrate 25 mg 10/06/24 09:25 10/08/24 09:52 Metoprolol Tartrate 25 Mg Tablet PO 25 mg Q12HR KARRIE Administration Pantoprazole Sodium 40 mg 10/06/24 21:00 10/08/24 09:53 Pantoprazole Sodium Iv 40 Mg Vial IV PUSH 40 mg Q12HR KARRIE Administration Prochlorperazine Edisylate 10 mg 10/03/24 08:37 10/08/24 01:39 Prochlorperazine Edisylate 10 Mg/2 Ml Vial IV PUSH 10 mg Q4H PRN Administration Nausea And Vomiting Promethazine HCl 12.5 mg 10/04/24 17:51 10/07/24 17:05 Promethazine Hcl 25 Mg/Ml Ampul IV PUSH 12.5 mg Q6H PRN Administration Nausea And Vomiting Scopolamine 1 patch 10/03/24 11:01 10/06/24 08:42 Scopolamine 1 Mg Patch TRANSDERM 1 patch Q72HR KARRIE Administration Radiology Results: ITS Impressions Chest X-Ray 10/02/24 06:45 Impression: Normal chest. Abdomen/Pelvis CT 10/02/24 07:39 Impression: Questionable infectious/inflammatory colitis of the cecum/proximal ascending colon versus underdistention. Correlate clinically. Diffuse hepatic steatosis. Normal appendix. Abdomen X-Ray 10/03/24 08:38 IMPRESSION: 1. Normal bowel gas pattern. Labs Labs: Laboratory Results - last 24 hr 10/07/24 10/07/24 10/07/24 16:46 20:00 23:46 WBC RBC Hgb Hct MCV MCH MCHC RDW Plt Count MPV Immature Gran % (Auto) Neut % (Auto) Lymph % (Auto) [place] % (Auto) Eos % (Auto) Baso % (Auto) Lymph # (Auto) [place] # (Auto) Eos # (Auto) Baso # (Auto) Abs Immat Gran (auto) Absolute Neuts (auto) Absolute Nucleated RBC Nucleated RBC % Sodium Potassium Chloride Carbon Dioxide Anion Gap BUN Creatinine Estim Creat Clear Calc Estimated GFR Glucose POC Capillary Glucose 98 174 H 72 Calcium Phosphorus Magnesium Total Bilirubin AST ALT Alkaline Phosphatase Total Protein Albumin 10/08/24 10/08/24 10/08/24 03:39 07:41 11:50 WBC 8.5 RBC 4.23 Hgb 10.8 L Hct 33.2 L MCV 78.5 L MCH 25.5 L MCHC 32.5 RDW 15.4 H Plt Count 280 MPV 10.5 H Immature Gran % (Auto) 0.2 Neut % (Auto) 63.8 Lymph % (Auto) 19.9 [place] % (Auto) 12.4 H Eos % (Auto) 3.3 Baso % (Auto) 0.4 Lymph # (Auto) 1.70 [place] # (Auto) 1.1 H Eos # (Auto) 0.3 Baso # (Auto) 0.0 Abs Immat Gran (auto) 0.02 Absolute Neuts (auto) 5.4 Absolute Nucleated RBC 0.000 Nucleated RBC % 0.0 Sodium 134 L Potassium 3.8 Chloride 99 Carbon Dioxide 27 Anion Gap 8 BUN 12 Creatinine 0.66 L Estim Creat Clear Calc 86 Estimated GFR > 60 Glucose 137 H POC Capillary Glucose 136 H 203 H Calcium 9.0 Phosphorus 5.0 H Magnesium 1.6 Total Bilirubin 0.8 AST 29 ALT 25 Alkaline Phosphatase 68 Total Protein 6.0 L Albumin 3.3 L Quality VTE Prophylaxis VTE prophylaxis: pharmacologic ordered
--- NOTE | 2024-10-08 12:19 | P.PNGI_ITS ---
Progress Note: A&P Assessment and Plan (1) Nausea and vomiting: Qualifiers: Vomiting type: unspecified Qualified Code(s): R11.2 - Nausea with vomiting, unspecified Code(s): R11.2 - Nausea with vomiting, unspecified Status: Acute Assessment and Plan: chronic, on antiemetics at home dka resolved will advance diet today and hopefully home tomorrow (2) Cannabinoid hyperemesis syndrome: Code(s): R11.2 - Nausea with vomiting, unspecified; F12.90 - Cannabis use, unspecified, uncomplicated Status: Acute Assessment and Plan: advised to quit altogether (3) GERD with esophagitis: Qualifiers: Esophagitis bleeding: without hemorrhage Qualified Code(s): K21.00 - Gastro-esophageal reflux disease with esophagitis, without bleeding Code(s): K21.00 - Gastro-esophageal reflux disease with esophagitis, without bleeding Status: Acute Assessment and Plan: more gerd symptoms on protonix bid will add carafate with meals (4) Gastroparesis: Code(s): K31.84 - Gastroparesis Status: Acute Assessment and Plan: on reglan and she is eating she can follow-up in office (5) Uncontrolled type 1 diabetes mellitus: Qualifiers: Glycemic state: with hyperglycemia Qualified Code(s): E10.65 - Type 1 diabetes mellitus with hyperglycemia Status: Acute (6) DKA (diabetic ketoacidosis): Qualifiers: Diabetes mellitus complication detail: without coma Diabetes mellitus type: type 1 Qualified Code(s): E10.10 - Type 1 diabetes mellitus with ketoa cidosis without coma Code(s): E11.10 - Type 2 diabetes mellitus with ketoacidosis without coma Status: Acute Assessment and Plan: resolved Subjective Date/time seen: 10/08/24 12:19 Interval history: still with some nausea and more reflux but trying to eat more Review of Systems Review of Systems: All systems reviewed & are unremarkable except as noted in HPI and below Exam Narrative: General: Pleasant female, no acute distress HEENT:? Pupils equal and reactive, sclera is clear Neck:? Supple Respiratory: clear to auscultation, adequate air entry, no wheezing Cardiac:? Sinus tachycardia, S1-S2 is normal Abdomen:? Soft, nondistended, abdominal tenderness much improved, normoactive bowel sounds Extremities:? No edema Neuro:? Patient is awake, alert, oriented, able to answer questions appropriately and follows simple commands in all extremities Skin:? Warm and dry Psych:? Normal mentation and affect Objective Data Vital Signs Vital Signs: Vital Signs - 24 hr 10/07/24 16:00 10/07/24 16:00 10/07/24 19:57 Temperature 98.6 F Pulse Rate 104 H 103 H 111 H Respiratory Rate 19 Blood Pressure 112/71 Pulse Oximetry 95 Oxygen Delivery 10/07/24 20:00 10/07/24 20:00 10/07/24 22:18 Temperature 98.6 F Pulse Rate 120 H 97 Respiratory Rate 12 Blood Pressure 134/78 Pulse Oximetry 98 Oxygen Delivery Room Air 10/08/24 00:00 10/08/24 04:00 10/08/24 08:00 Temperature Pulse Rate 99 99 109 H Respiratory Rate Blood Pressure Pulse Oximetry Oxygen Delivery 10/08/24 08:00 10/08/24 09:52 Temperature 99.5 F Pulse Rate 113 H 117 H Respiratory Rate 16 Blood Pressure 139/102 H Pulse Oximetry 98 Oxygen Delivery Intake/Output Intake/Output: Intake & Output 10/05/24 10/06/24 10/07/24 10/08/24 23:59 23:59 23:59 23:59 Intake Total 4402.8 3011.6 1240 360 Output Total 4320 3000 2300 1000 Balance 82.8 11.6 -1060 -640 Meds/Results Medications: Active Medications Generic Name Dose Route Start Last Admin Trade Name Freq PRN Reason Stop Dose Admin Calcium Carbonate 400 mg 10/08/24 09:50 10/08/24 09:54 Calcium Carbonate (Tums) 500 Mg (200 Mg Elemental) PO 400 mg Q4HR PRN Administration Indigestion Capsaicin 1 applic 10/03/24 06:00 10/08/24 04:04 Capsaicin 0.025% Cream 60 Gm Tube TOPICAL Not Given Q6HR KARRIE Dextrose 12.5 gm 10/03/24 13:10 Dextrose 50% 25 Gm/50 Ml Syringe IV PUSH PRN PRN Hypoglycemia Protocol Diphenhydramine HCl 25 mg 10/05/24 11:00 10/08/24 06:31 Diphenhydramine Hcl Inj 50 Mg/Ml Vial IV PUSH 25 mg Q6HR KARRIE Administration Enoxaparin Sodium 40 mg 10/02/24 13:30 10/08/24 09:52 Enoxaparin 40 Mg/0.4 Ml Syringe SUB-Q 40 mg DAILY KARRIE Administration Gabapentin 300 mg 10/06/24 21:00 10/07/24 19:58 Gabapentin 300 Mg Capsule PO 300 mg QHS KARRIE Administration Glucagon 1 mg 10/03/24 13:10 Glucagon For Inj 1 Mg Vial IM PRN PRN Hypoglycemia Protocol Glucose 15 gm 10/03/24 13:10 Glucose Oral Gel 15 Gm Of Glucse In 37.5 Gm Tube PO PRN PRN Hypoglycemia Protocol Hydromorphone HCl 0.5 mg 10/03/24 08:38 10/08/24 09:16 Hydromorphone Hcl Inj (*Crx) 1 Mg/Ml Syr IV PUSH 0.5 mg Q3H PRN Administration Pain Rated 7-10 Dextrose 1,000 mls @ 100 mls/hr 10/03/24 13:10 Dextrose 5% 1,000 Ml IVPB PRN PRN Hypoglycemia Protocol Insulin Aspart 4 - 8 units 10/08/24 12:00 Insulin Aspart (*Bkc) 100 Units/Ml SUB-Q TIDWM KARRIE Protocol Insulin Glargine 40 units 10/08/24 09:50 10/08/24 09:55 Insulin Glargine (*Bkc) 100 Units/Ml SUB-Q 40 units DAILY KARRIE Administration Melatonin 10 mg 10/07/24 22:40 10/07/24 23:42 Melatonin 5 Mg Tablet PO 10 mg HS KARRIE Administration Metoclopramide HCl 10 mg 10/03/24 18:00 10/08/24 06:31 Metoclopramide Hcl Inj 10 Mg/2 Ml Vial IV PUSH 10 mg Q6HR KARRIE Administration Metoprolol Tartrate 25 mg 10/06/24 09:25 10/08/24 09:52 Metoprolol Tartrate 25 Mg Tablet PO 25 mg Q12HR KARRIE Administration Pantoprazole Sodium 40 mg 10/06/24 21:00 10/08/24 09:53 Pantoprazole Sodium Iv 40 Mg Vial IV PUSH 40 mg Q12HR KARRIE Administration Prochlorperazine Edisylate 10 mg 10/03/24 08:37 10/08/24 01:39 Prochlorperazine Edisylate 10 Mg/2 Ml Vial IV PUSH 10 mg Q4H PRN Administration Nausea And Vomiting Promethazine HCl 12.5 mg 10/04/24 17:51 10/07/24 17:05 Promethazine Hcl 25 Mg/Ml Ampul IV PUSH 12.5 mg Q6H PRN Administration Nausea And Vomiting Scopolamine 1 patch 10/03/24 11:01 10/06/24 08:42 Scopolamine 1 Mg Patch TRANSDERM 1 patch Q72HR KARRIE Administration Radiology Results: ITS Impressions Chest X-Ray 10/02/24 06:45 Impression: Normal chest. Abdomen/Pelvis CT 10/02/24 07:39 Impression: Questionable infectious/inflammatory colitis of the cecum/proximal ascending colon versus underdistention. Correlate clinically. Diffuse hepatic steatosis. Normal appendix. Abdomen X-Ray 10/03/24 08:38 IMPRESSION: 1. Normal bowel gas pattern. Labs Labs: Laboratory Results - last 24 hr 10/07/24 10/07/24 10/07/24 16:46 20:00 23:46 WBC RBC Hgb Hct MCV MCH MCHC RDW Plt Count MPV Immature Gran % (Auto) Neut % (Auto) Lymph % (Auto) [place] % (Auto) Eos % (Auto) Baso % (Auto) Lymph # (Auto) [place] # (Auto) Eos # (Auto) Baso # (Auto) Abs Immat Gran (auto) Absolute Neuts (auto) Absolute Nucleated RBC Nucleated RBC % Sodium Potassium Chloride Carbon Dioxide Anion Gap BUN Creatinine Estim Creat Clear Calc Estimated GFR Glucose POC Capillary Glucose 98 174 H 72 Calcium Phosphorus Magnesium Total Bilirubin AST ALT Alkaline Phosphatase Total Protein Albumin 10/08/24 10/08/24 10/08/24 03:39 07:41 11:50 WBC 8.5 RBC 4.23 Hgb 10.8 L Hct 33.2 L MCV 78.5 L MCH 25.5 L MCHC 32.5 RDW 15.4 H Plt Count 280 MPV 10.5 H Immature Gran % (Auto) 0.2 Neut % (Auto) 63.8 Lymph % (Auto) 19.9 [place] % (Auto) 12.4 H Eos % (Auto) 3.3 Baso % (Auto) 0.4 Lymph # (Auto) 1.70 [place] # (Auto) 1.1 H Eos # (Auto) 0.3 Baso # (Auto) 0.0 Abs Immat Gran (auto) 0.02 Absolute Neuts (auto) 5.4 Absolute Nucleated RBC 0.000 Nucleated RBC % 0.0 Sodium 134 L Potassium 3.8 Chloride 99 Carbon Dioxide 27 Anion Gap 8 BUN 12 Creatinine 0.66 L Estim Creat Clear Calc 86 Estimated GFR > 60 Glucose 137 H POC Capillary Glucose 136 H 203 H Calcium 9.0 Phosphorus 5.0 H Magnesium 1.6 Total Bilirubin 0.8 AST 29 ALT 25 Alkaline Phosphatase 68 Total Protein 6.0 L Albumin 3.3 L
[2024-10-08] MEDS: INSULIN ASPART (*BKC) 100 UNITS/ML SUB-Q (12:31)
[2024-10-08 16:37] LABS: Glucose Point of Care 88 mg/dl (65-105)
[2024-10-08] MEDS: SUCRALFATE SUSP 100 MG/ML 10 ML UDC 1000 MG PO ×2 (17:03→20:27)
[2024-10-08] MEDS: LOPERAMIDE HCL 2 MG CAPSULE PO (18:42)
[2024-10-08] MEDS: GABAPENTIN 300 MG CAPSULE PO (20:27)
[2024-10-08] MEDS: MELATONIN 5 MG TABLET 10 MG PO (20:27)
[2024-10-08 23:13] LABS: IFOB Positive Control Positive; Immunochemical Fecal Occult Bl Negative (N)
[2024-10-08 23:19] LABS: Glucose Point of Care 210 mg/dl (65-105)
[2024-10-09 00:10] LABS: Toxigenic C. Diff NEGATIVE (NEGATIVE)
[2024-10-09] MEDS: METOCLOPRAMIDE HCL INJ 10 MG/2 ML VIAL IV PUSH ×4 (04:44→23:19)
[2024-10-09] MEDS: diphenhydrAMINE HCl INJ 50 MG/ML VIAL 25 MG IV PUSH ×4 (04:44→23:19)
[2024-10-09] MEDS: SUCRALFATE SUSP 100 MG/ML 10 ML UDC 1000 MG PO ×4 (04:44→20:40)
[2024-10-09 05:09] VITALS: BP 127/68; PULSE 100; RESP 16; TEMP 37.1; O2SAT 100
[2024-10-09] MEDS: LOPERAMIDE HCL 2 MG CAPSULE PO (08:02)
[2024-10-09] MEDS: HYDROmorphone HCL INJ (*CRX) 1 MG/ML SYR 0.5 MG IV PUSH (08:03)
[2024-10-09] MEDS: ENOXAPARIN 40 MG/0.4 ML SYRINGE SUB-Q (08:06)
[2024-10-09 08:07] VITALS: PULSE 105
[2024-10-09] MEDS: METOPROLOL TARTRATE 25 MG TABLET PO ×2 (08:07→20:41)
[2024-10-09] MEDS: PANTOPRAZOLE SODIUM IV 40 MG VIAL IV PUSH (08:08)
[2024-10-09] MEDS: SCOPOLAMINE 1 MG PATCH 1 PATCH TRANSDERM (08:08)
[2024-10-09 08:37] LABS: Glucose Point of Care 224 mg/dl (65-105)
[2024-10-09] MEDS: INSULIN ASPART (*BKC) 100 UNITS/ML SUB-Q (08:46)
[2024-10-09] MEDS: INSULIN GLARGINE (*BKC) 100 UNITS/ML 40 UNITS SUB-Q (08:47)
[2024-10-09 11:36] LABS: Glucose Point of Care 128 mg/dl (65-105)
--- NOTE | 2024-10-09 12:02 | P.PNIM_ITS ---
Progress Note: A&P Assessment and Plan (1) Cannabinoid hyperemesis syndrome: Code(s): R11.2 - Nausea with vomiting, unspecified; F12.90 - Cannabis use, unspecified, uncomplicated Status: Acute Assessment and Plan: Patient has a history of cannabinoid hyperemesis syndrome, continues to smoke marijuana on a daily basis -have counseled patient on cessation of marijuana usage Will add Ativan to the current regimen. Counseling given. (2) DKA (diabetic ketoacidosis): Qualifiers: Diabetes mellitus complication detail: without coma Diabetes mellitus type: type 1 Qualified Code(s): E10.10 - Type 1 diabetes mellitus with ketoacidosis without coma Code(s): E11.10 - Type 2 diabetes mellitus with ketoacidosis without coma Status: Acute Assessment and Plan: 10/02: Patient presented with nausea, vomiting, diarrhea, abdominal pain -states that her insulin pump fell off or is malfunctioning -in the ER patient was found to be in severe anion gap metabolic acidosis with hyperglycemia -diagnosed with diabetic ketoacidosis, given 3 L IV fluid bolus and started on insulin infusion per DKA protocol and transferred to the ICU for further management. -10/02: will give additional 1 L IV fluid bolus in the ICU (they will be a total of 4 L IV fluid bolus since admission) -continue insulin infusion per DKA protocol -10/03: Anion gap had closed, patient transitioned to long-acting insulin and sliding scale insulin. Late in the evening on the same day she continue have severe nausea and vomiting, BMP showed elevated anion gap and metabolic acidosis. Insulin infusion was restarted per DKA protocol -continue insulin infusion for now per DKA protocol 10/05: patient's anion gap is closed and his CO2 is 25. But continues to have intractable nausea and vomiting. Will continue insulin infusion for now as she is unable to take anything oral and I worry that she if she continues to have in tractable vomiting, giving a long-acting insulin mid dropped her blood sugars and may cause hypoglycemia 10/06: Patient's anion gap has closed since the last 5 instances on her BMPs. CO2 has been normal since 10/04/2024. -discussed with patient this morning, will transition her to Lantus and sliding scale insulin, have encouraged the patient to start full liquid diet and advanced as tolerated to diabetic diet. Patient is agreeable -10/07: Increase Lantus, continue sliding scale insulin. She is tolerating sure p.o. intake a little better. Continue to monitor 0213: Will decrease Lantus as patient is only tolerating liquid diet. Have asked the patient to get her insulin pump so we connect that again she can get a basal rate and adjust the Lantus accordingly before she can be sent home. 10/09/2024 Improving, continue current treatment. (3) Type 1 diabetes mellitus: Qualifiers: Diabetes mellitus complication status: with hyperglycemia Qualified Code(s): E10.65 - Type 1 diabetes mellitus with hyperglycemia Code(s): E10.9 - Type 1 diabetes mellitus without complications Status: Acute Assessment and Plan: Patient has a longstanding history of type 1 diabetes with neuropathy, gastroparesis -hemoglobin A1c is 8.2 this admit -appreciate inclusion paraeducator and dietitian evaluating the patient (4) Colitis: Code(s): K52.9 - Noninfective gastroenteritis and colitis, unspecified Status: Acute Assessment and Plan: Patient also presented with abdominal pain, nausea and vomiting CT abdomen and pelvis: Questionable infectious/inflammatory colitis of the cecum/proximal ascending colon versus underdistention. Correlate clinically. Diffuse hepatic steatosis. Normal appendix. -status post 5 days of ceftriaxone and metronidazole -continue Dilaudid for pain -10/02: Continues to have abdominal pain, obstructive series showed normal bowel gas pattern, no free intraperitoneal gas. 10/09/2024 white count has normalized, afebrile. (5) Tobacco abuse: Code(s): Z72.0 - Tobacco use Status: Acute Assessment and Plan: Continues to smoke 1 packet per day, counseled patient on cessation of tobacco use (6) Hypomagnesemia: Code(s): E83.42 - Hypomagnesemia Status: Acute Assessment and Plan: 10/09: Replace magnesium and monitor (7) Gastroparesis: Code(s): K31.84 - Gastroparesis Status: Acute Assessment and Plan: Continue Reglan Plan DVT prophylaxis: Lovenox Stress ulcer prophylaxis: Protonix Nutrition: full liquid diet, advanced as tolerated to diabetic diet Code Status: Full code . Subjective Date/time seen: 10/09/24 12:02 Interval history: patient was seen during the morning rounds today. Patient still with some nausea and more reflux but trying to eat more. No shortness of breath or chest pain. Review of Systems Review of Systems: All other systems were reviewed and negative except as noted in HPI above. All systems reviewed & are unremarkable except as noted in HPI and below Exam Narrative: General: Pleasant female, looks better this morning, not so ill-appearing HEENT:? Pupils equal and reactive, sclera is clear, dry oral mucosa Neck:? Supple Respiratory: clear to auscultation, adequate air entry, no wheezing Cardiac:? Sinus tachycardia has resolved,, S1-S2 is normal Abdomen:? Soft, nondistended, abdominal tenderness much improved, normoactive bowel sounds Extremities:? No edema, palpable pedal pulse Neuro:? Patient is awake, alert, oriented, able to answer questions appropriately and follows simple commands in all extremities Skin:? Warm and dry Psych:? Normal mentation and affect Objective Data Vital Signs Vital Signs: Vital Signs - 24 hr 10/08/24 16:00 10/08/24 20:00 10/08/24 22:20 Temperature 36.3 C L 36.6 C Pulse Rate 89 89 100 Respiratory Rate 18 18 16 Blood Pressure 100/50 L 107/81 Pulse Oximetry 100 100 100 Oxygen Delivery Room Air 10/09/24 05:09 10/09/24 08:00 10/09/24 08:07 Temperature 37.1 C Pulse Rate 100 105 H Respiratory Rate 16 Blood Pressure 127/68 Pulse Oximetry 100 Oxygen Delivery Room Air Intake/Output Intake/Output: Intake & Output 10/06/24 10/07/24 10/08/24 10/09/24 23:59 23:59 23:59 23:59 Intake Total 3011.6 1240 1570 400 Output Total 3000 2300 1000 Balance 11.6 -1060 570 400 Meds/Results Medications: Active Medications Generic Name Dose Route Start Last Admin Trade Name Freq PRN Reason Stop Dose Admin Calcium Carbonate 400 mg 10/08/24 09:50 10/08/24 09:54 Calcium Carbonate (Tums) 500 Mg (200 Mg Elemental) PO 400 mg Q4HR PRN Administration Indigestion Capsaicin 1 applic 10/03/24 06:00 10/09/24 04:45 Capsaicin 0.025% Cream 60 Gm Tube TOPICAL Not Given Q6HR KARRIE Dextrose 12.5 gm 10/03/24 13:10 Dextrose 50% 25 Gm/50 Ml Syringe IV PUSH PRN PRN Hypoglycemia Protocol Diphenhydramine HCl 25 mg 10/05/24 11:00 10/09/24 04:44 Diphenhydramine Hcl Inj 50 Mg/Ml Vial IV PUSH 25 mg Q6HR KARRIE Administration Enoxaparin Sodium 40 mg 10/02/24 13:30 10/09/24 08:06 Enoxaparin 40 Mg/0.4 Ml Syringe SUB-Q 40 mg DAILY KARRIE Administration Gabapentin 300 mg 10/06/24 21:00 10/08/24 20:27 Gabapentin 300 Mg Capsule PO 300 mg QHS KARRIE Administration Glucagon 1 mg 10/03/24 13:10 Glucagon For Inj 1 Mg Vial IM PRN PRN Hypoglycemia Protocol Glucose 15 gm 10/03/24 13:10 Glucose Oral Gel 15 Gm Of Glucse In 37.5 Gm Tube PO PRN PRN Hypoglycemia Protocol Dextrose 1,000 mls @ 100 mls/hr 10/03/24 13:10 Dextrose 5% 1,000 Ml IVPB PRN PRN Hypoglycemia Protocol Sodium Chloride 1,000 mls @ 83 mls/hr 10/09/24 12:00 Sodium Chloride 0.45% IV CONT 10/11/24 06:00 .Q12H3M [facility] Insulin Aspart 4 - 8 units 10/08/24 12:00 10/09/24 08:46 Insulin Aspart (*Bkc) 100 Units/Ml SUB-Q 4 units TIDWM [facility] Administration Protocol Insulin Glargine 40 units 10/08/24 09:50 10/09/24 08:47 Insulin Glargine (*Bkc) 100 Units/Ml SUB-Q 40 units DAILY KARRIE Administration Loperamide HCl 2 mg 10/08/24 18:21 10/09/24 08:02 Loperamide Hcl 2 Mg Capsule PO 2 mg PRN PRN Administration Diarrhea Lorazepam 1 mg 10/09/24 11:55 Lorazepam Inj (*Crx) 2 Mg/Ml Vial IV PUSH Q6H PRN Anxiety Metoclopramide HCl 10 mg 10/03/24 18:00 10/09/24 04:44 Metoclopramide Hcl Inj 10 Mg/2 Ml Vial IV PUSH 10 mg Q6HR KARRIE Administration Metoprolol Tartrate 25 mg 10/06/24 09:25 10/09/24 08:07 Metoprolol Tartrate 25 Mg Tablet PO 25 mg Q12HR KARRIE Administration Prochlorperazine Edisylate 10 mg 10/03/24 08:37 10/08/24 01:39 Prochlorperazine Edisylate 10 Mg/2 Ml Vial IV PUSH 10 mg Q4H PRN Administration Nausea And Vomiting Sucralfate 1,000 mg 10/08/24 16:30 10/09/24 04:44 Sucralfate Susp 100 Mg/Ml 10 Ml Udc PO 1,000 mg ACHS KARRIE Administration Radiology Results: ITS Impressions Chest X-Ray 10/02/24 06:45 Impression: Normal chest. Abdomen/Pelvis CT 10/02/24 07:39 Impression: Questionable infectious/inflammatory colitis of the cecum/proximal ascending colon versus underdistention. Correlate clinically. Diffuse hepatic steatosis. Normal appendix. Abdomen X-Ray 10/03/24 08:38 IMPRESSION: 1. Normal bowel gas pattern. Labs Labs: Laboratory Results - last 24 hr 10/08/24 10/08/24 10/08/24 11:50 16:32 22:30 POC Capillary Glucose 203 H 88 210 H Stl Occult Blood (IFOB) C. difficile (PCR) 10/08/24 10/09/24 10/09/24 22:40 08:29 11:28 POC Capillary Glucose 224 H 128 H Stl Occult Blood (IFOB) Negative C. difficile (PCR) Negative Quality VTE Prophylaxis VTE prophylaxis: pharmacologic ordered
[2024-10-09] MEDS: SODIUM CHLORIDE 0.45% 1,000 ML 83 ML IV CONT ×2 (12:18→23:18)
--- NOTE | 2024-10-09 13:47 | P.PNGI_ITS ---
Progress Note: A&P Assessment and Plan (1) Nausea and vomiting: Qualifiers: Vomiting type: unspecified Qualified Code(s): R11.2 - Nausea with vomiting, unspecified Code(s): R11.2 - Nausea with vomiting, unspecified Status: Acute Assessment and Plan: chronic, on antiemetics at home dka resolved tolerating more diet and denies emesis she can go home and then follow-up in office (2) Cannabinoid hyperemesis syndrome: Code(s): R11.2 - Nausea with vomiting, unspecified; F12.90 - Cannabis use, unspecified, uncomplicated Status: Acute Assessment and Plan: advised to quit altogether (3) GERD with esophagitis: Qualifiers: Esophagitis bleeding: without hemorrhage Qualified Code(s): K21.00 - Gastro-esophageal reflux disease with esophagitis, without bleeding Code(s): K21.00 - Gastro-esophageal reflux disease with esophagitis, without bleeding Status: Acute Assessment and Plan: more gerd symptoms on protonix bid also carafate with meals (4) Gastroparesis: Code(s): K31.84 - Gastroparesis Status: Acute Assessment and Plan: on reglan and she is eating (5) Uncontrolled type 1 diabetes mellitus: Qualifiers: Glycemic state: with hyperglycemia Qualified Code(s): E10.65 - Type 1 diabetes mellitus with hyperglycemia Status: Acute (6) DKA (diabetic ketoacidosis): Qualifiers: Diabetes mellitus complication detail: without coma Diabetes mellitus type: type 1 Qualified Code(s): E10.10 - Type 1 diabetes mellitus with ketoac idosis without coma Code(s): E11.10 - Type 2 diabetes mellitus with ketoacidosis without coma Status: Acute Assessment and Plan: resolved Subjective Date/time seen: 10/09/24 13:47 Interval history: she is eating more had diarrhea Review of Systems Review of Systems: All systems reviewed & are unremarkable except as noted in HPI and below Exam Narrative: General: Pleasant female, no acute distress HEENT:? Pupils equal and reactive, sclera is clear Neck:? Supple Respiratory: clear to auscultation, adequate air entry, no wheezing Cardiac:? Sinus tachycardia, S1-S2 is normal Abdomen:? Soft, nondistended, abdominal tenderness much improved, normoactive bowel sounds Extremities:? No edema Neuro:? Patient is awake, alert, oriented, able to answer questions appropriat ren and follows simple commands in all extremities Skin:? Warm and dry Psych:? Normal mentation and affect Objective Data Vital Signs Vital Signs: Vital Signs - 24 hr 10/08/24 16:00 10/08/24 20:00 10/08/24 22:20 Temperature 97.3 F L 97.8 F Pulse Rate 89 89 100 Respiratory Rate 18 18 16 Blood Pressure 100/50 L 107/81 Pulse Oximetry 100 100 100 Oxygen Delivery Room Air 10/09/24 05:09 10/09/24 08:00 10/09/24 08:07 Temperature 98.7 F Pulse Rate 100 105 H Respiratory Rate 16 Blood Pressure 127/68 Pulse Oximetry 100 Oxygen Delivery Room Air Intake/Output Intake/Output: Intake & Output 10/06/24 10/07/24 10/08/24 10/09/24 23:59 23:59 23:59 23:59 Intake Total 3011.6 1240 1570 640 Output Total 3000 2300 1000 Balance 11.6 -1060 570 640 Meds/Results Medications: Active Medications Generic Name Dose Route Start Last Admin Trade Name Freq PRN Reason Stop Dose Admin Calcium Carbonate 400 mg 10/08/24 09:50 10/08/24 09:54 Calcium Carbonate (Tums) 500 Mg (200 Mg Elemental) PO 400 mg Q4HR PRN Administration Indigestion Capsaicin 1 applic 10/03/24 06:00 10/09/24 12:12 Capsaicin 0.025% Cream 60 Gm Tube TOPICAL Not Given Q6HR KARRIE Dextrose 12.5 gm 10/03/24 13:10 Dextrose 50% 25 Gm/50 Ml Syringe IV PUSH PRN PRN Hypoglycemia Protocol Diphenhydramine HCl 25 mg 10/05/24 11:00 10/09/24 12:12 Diphenhydramine Hcl Inj 50 Mg/Ml Vial IV PUSH 25 mg Q6HR KARRIE Administration Enoxaparin Sodium 40 mg 10/02/24 13:30 10/09/24 08:06 Enoxaparin 40 Mg/0.4 Ml Syringe SUB-Q 40 mg DAILY KARRIE Administration Gabapentin 300 mg 10/06/24 21:00 10/08/24 20:27 Gabapentin 300 Mg Capsule PO 300 mg QHS KARRIE Administration Glucagon 1 mg 10/03/24 13:10 Glucagon For Inj 1 Mg Vial IM PRN PRN Hypoglycemia Protocol Glucose 15 gm 10/03/24 13:10 Glucose Oral Gel 15 Gm Of Glucse In 37.5 Gm Tube PO PRN PRN Hypoglycemia Protocol Dextrose 1,000 mls @ 100 mls/hr 10/03/24 13:10 Dextrose 5% 1,000 Ml IVPB PRN PRN Hypoglycemia Protocol Sodium Chloride 1,000 mls @ 83 mls/hr 10/09/24 12:00 10/09/24 12:18 Sodium Chloride 0.45% IV CONT 10/11/24 06:00 83 mls/hr .Q12H3M KARRIE Administration Insulin Aspart 4 - 8 units 10/08/24 12:00 10/09/24 12:12 Insulin Aspart (*Bkc) 100 Units/Ml SUB-Q Not Given TIDWM KARRIE Protocol Insulin Glargine 40 units 10/08/24 09:50 10/09/24 08:47 Insulin Glargine (*Bkc) 100 Units/Ml SUB-Q 40 units DAILY KARRIE Administration Loperamide HCl 2 mg 10/08/24 18:21 10/09/24 08:02 Loperamide Hcl 2 Mg Capsule PO 2 mg PRN PRN Administration Diarrhea Lorazepam 1 mg 10/09/24 11:55 Lorazepam Inj (*Crx) 2 Mg/Ml Vial IV PUSH Q6H PRN Anxiety Metoclopramide HCl 10 mg 10/03/24 18:00 10/09/24 12:12 Metoclopramide Hcl Inj 10 Mg/2 Ml Vial IV PUSH 10 mg Q6HR KARRIE Administration Metoprolol Tartrate 25 mg 10/06/24 09:25 10/09/24 08:07 Metoprolol Tartrate 25 Mg Tablet PO 25 mg Q12HR KARRIE Administration Prochlorperazine Edisylate 10 mg 10/03/24 08:37 10/08/24 01:39 Prochlorperazine Edisylate 10 Mg/2 Ml Vial IV PUSH 10 mg Q4H PRN Administration Nausea And Vomiting Sucralfate 1,000 mg 10/08/24 16:30 10/09/24 12:11 Sucralfate Susp 100 Mg/Ml 10 Ml Udc PO 1,000 mg ACHS KARRIE Administration Radiology Results: ITS Impressions Chest X-Ray 10/02/24 06:45 Impression: Normal chest. Abdomen/Pelvis CT 10/02/24 07:39 Impression: Questionable infectious/inflammatory colitis of the cecum/proximal ascending colon versus underdistention. Correlate clinically. Diffuse hepatic steatosis. Normal appendix. Abdomen X-Ray 10/03/24 08:38 IMPRESSION: 1. Normal bowel gas pattern. Labs Labs: Laboratory Results - last 24 hr 10/08/24 10/08/24 10/08/24 16:32 22:30 22:40 POC Capillary Glucose 88 210 H Stl Occult Blood (IFOB) Negative C. difficile (PCR) Negative 10/09/24 10/09/24 08:29 11:28 POC Capillary Glucose 224 H 128 H Stl Occult Blood (IFOB) C. difficile (PCR)
[2024-10-09 14:00] VITALS: BP 110/60; PULSE 92; RESP 18; TEMP 36.3; O2SAT 98
--- NOTE | 2024-10-09 15:13 | PCDIET ---
Nutrition note: Pt is progressing on low fiber diet with 100% breakfast. On Reglan. Having bowel movements. Likely to discharge soon per notes. Continue to follow every 5 days
[2024-10-09 16:51] LABS: Glucose Point of Care 123 mg/dl (65-105)
[2024-10-09 20:00] VITALS: PULSE 96; RESP 18; O2SAT 100
[2024-10-09 20:30] VITALS: BP 112/59; PULSE 96; RESP 18; TEMP 36.6; O2SAT 100
[2024-10-09] MEDS: GABAPENTIN 300 MG CAPSULE PO (20:39)
[2024-10-09 23:09] LABS: Glucose Point of Care 248 mg/dl (65-105)
[2024-10-10] MEDS: LOPERAMIDE HCL 2 MG CAPSULE PO (04:53)
[2024-10-10] MEDS: diphenhydrAMINE HCl INJ 50 MG/ML VIAL 25 MG IV PUSH ×2 (04:53→12:14)
[2024-10-10] MEDS: METOCLOPRAMIDE HCL INJ 10 MG/2 ML VIAL IV PUSH ×2 (04:54→12:14)
[2024-10-10] MEDS: SUCRALFATE SUSP 100 MG/ML 10 ML UDC 1000 MG PO ×2 (04:54→12:14)
[2024-10-10 05:25] VITALS: BP 116/68; PULSE 90; RESP 18; TEMP 36.6; O2SAT 99
[2024-10-10 08:29] LABS: Glucose Point of Care 116 mg/dl (65-105)
--- NOTE | 2024-10-10 09:01 | PM.DS ---
DS: Admitting Diagnosis Discharge Date 10/10/2024 Admitting Diagnosis Cannabinoid hyperemesis syndrome DKA DS: Discharge Diagnosis Discharge Diagnosis (1) Cannabinoid hyperemesis syndrome: Code(s): R11.2 - Nausea with vomiting, unspecified; F12.90 - Cannabis use, unspecified, uncomplicated Status: Acute Assessment and Plan: Patient has a history of cannabinoid hyperemesis syndrome, continues to smoke marijuana on a daily basis -have counseled patient on cessation of marijuana usage Will add Ativan to the current regimen. Counseling given. (2) DKA (diabetic ketoacidosis): Qualifiers: Diabetes mellitus complication detail: without coma Diabetes mellitus type: type 1 Qualified Code(s): E10.10 - Type 1 diabetes mellitus with ketoacidosis without coma Code(s): E11.10 - Type 2 diabetes mellitus with ketoacidosis without coma Status: Acute Assessment and Plan: 10/02: Patient presented with nausea, vomiting, diarrhea, abdominal pain -states that her insulin pump fell off or is malfunctioning -in the ER patient was found to be in severe anion gap metabolic acidosis with hyperglycemia -diagnosed with diabetic ketoacidosis, given 3 L IV fluid bolus and started on insulin infusion per DKA protocol and transferred to the ICU for further management. -10/02: will give additional 1 L IV fluid bolus in the ICU (they will be a total of 4 L IV fluid bolus since admission) -continue insulin infusion per DKA protocol -10/03: Anion gap had closed, patient transitioned to long-acting insulin and sliding scale insulin. Late in the evening on the same day she continue have severe nausea and vomiting, BMP showed elevated anion gap and metabolic acidosis. Insulin infusion was restarted per DKA protocol -continue insulin infusion for now per DKA protocol 10/05: patient's anion gap is closed and his CO2 is 25. But continues to have intractable nausea and vomiting. Will continue insulin infusion for now as she is unable to take anything oral and I worry that she if she continues to have intractable vomiting, giving a long-acting insulin mid dropped her blood sugars and may cause hypoglycemia 10/06: Patient's anion gap has closed since the last 5 instances on her BMPs. CO2 has been normal since 10/04/2024. -discussed with patient this morning, will transition her to Lantus and sliding scale insulin, have encouraged the patient to start full liquid diet and advanced as tolerated to diabetic diet. Patient is agreeable -10/07: Increase Lantus, continue sliding scale insulin. She is tolerating sure p.o. intake a little better. Continue to monitor 0213: Will decrease Lantus as patient is only tolerating liquid diet. Have asked the patient to get her insulin pump so we connect that again she can get a basal rate and adjust the Lantus accordingly before she can be sent home. 10/09/2024 Improving, continue current treatment. (3) Type 1 diabetes mellitus: Qualifiers: Diabetes mellitus complication status: with hyperglycemia Qualified Code(s): E10.65 - Type 1 diabetes mellitus with hyperglycemia Code(s): E10.9 - Type 1 diabetes mellitus without complications Status: Acute Assessment and Plan: Patient has a longstanding history of type 1 diabetes with neuropathy, gastroparesis -hemoglobin A1c is 8.2 this admit -appreciate laborer wood preserving plant and dietitian evaluating the patient (4) Colitis: Code(s): K52.9 - Noninfective gastroenteritis and colitis, unspecified Status: Acute Assessment and Plan: Patient also presented with abdominal pain, nausea and vomiting CT abdomen and pelvis: Questionable infectious/inflammatory colitis of the cecum/proximal ascending colon versus underdistention. Correlate clinically. Diffuse hepatic steatosis. Normal appendix. -status post 5 days of ceftriaxone and metronidazole -continue Dilaudid for pain -10/02: Continues to have abdominal pain, obstructive series showed normal bowel gas pattern, no free intraperitoneal gas. 10/09/2024 white count has normalized, afebrile. (5) Tobacco abuse: Code(s): Z72.0 - Tobacco use Status: Acute Assessment and Plan: Continues to smoke 1 packet per day, counseled patient on cessation of tobacco use (6) Hypomagnesemia: Code(s): E83.42 - Hypomagnesemia Status: Acute Assessment and Plan: 10/09: Replace magnesium and monitor (7) Gastroparesis: Code(s): K31.84 - Gastroparesis Status: Acute Assessment and Plan: Continue Reglan Plan DVT prophylaxis: Lovenox Stress ulcer prophylaxis: Protonix Nutrition: full liquid diet, advanced as tolerated to diabetic diet Code Status: Full code . DS: Summary Hospital Course Reason for hospitalization: Cannabinoid hyperemesis syndrome DKA Hospital Course: 39 years old female history of insulin dependent diabetes and cannabis abuse was admitted with complains of having abdominal pain and nausea. patient was diagnosed with DKA and hyperemesis cannabinoid syndrome. Patient was given IV fluids and insulin. Electrolytes were replaced. Patient was also given Ativan and Benadryl. After few days of treatment patient started feeling better. Patient discharged home stable condition. Patient was advised to stop smoking and cannabis use. Follow-up with primary care scheduled. Status at Discharge Cognitive/behavioral status at discharge: Stable Time Spent with Patient Time attestation: Total time spent providing and/or coordinating discharge services: 30 minutes Exam Narrative: General: Pleasant female, looks better this morning, not so ill-appearing HEENT:? Pupils equal and reactive, sclera is clear, dry oral mucosa Neck:? Supple Respiratory: clear to auscultation, adequate air entry, no wheezing Cardiac:? Sinus tachycardia has resolved,, S1-S2 is normal Abdomen:? Soft, nondistended, abdominal tenderness much improved, normoactive bowel sounds Extremities:? No edema, palpable pedal pulse Neuro:? Patient is awake, alert, oriented, able to answer questions appropriately and follows simple commands in all extremities Skin:? Warm and dry Psych:? Normal mentation and affect DS: Data Data Completed and Pending Labs on day of discharge: Labs from last 24 hours 10/10/24 10/09/24 10/09/24 08:03 20:33 16:48 POC Capillary Glucose 116 H 248 H 123 H 10/09/24 11:28 POC Capillary Glucose 128 H Discharge Plan Discharge Attending physician on discharge: Joaquín Wesley Consulting providers: Davy Chris Discharging Clinician: Joaquín Wesley Activity: as tolerated Diet: as tolerated Patient Instructions: How to Stop Smoking (GEN), Gastritis (GEN), Diabetic Gastroparesis (GEN), Cigarette Smoking and Your Health (GEN), Diabetic Ketoacidosis (GEN), Cannabis Use Disorder (GEN), Colitis (ED) Patient Language: French Discharge Medications: New gabapentin [Neurontin] 300 mg Capsule 300 mg PO QHS Qty: 90 0RF Continued (DME) Omnipod 5 G6-G7 Intro Kt(Gen5) Cartridge See Rx Instructions .Route Qty: 1 0RF Rx Instructions: As directed insulin lispro 100 unit/mL solution See Rx Instructions subcut PRN MDD 50 Qty: 60 0RF Rx Instructions: for insulin pump (DME) insulin pump cart,auto,BT,G6/7 Cartridge See Rx Instructions .Route Qty: 45 4RF Rx Instructions: Change every 3 days Gvoke HypoPen 2-Pack 1 mg/0.2 mL auto-injector 1 mg subcut ONCE Qty: 0.4 0RF Rx Instructions: as a single dose; may repeat once after 15 minutes if no response glucose 4 gram tablet,chewable 16 g PO Q15M PRN (Reason: hypoglycemia) Qty: 360 0RF Rx Instructions: until symptoms of low blood sugar are controlled lisinopril 2.5 mg tablet 2.5 mg PO DAILY Qty: 90 0RF (DME) Dexcom G6 Sensor Device See Rx Instructions .ROUTE .MEDSUPPLY Qty: 9 5RF Rx Instructions: every 10 days insulin glargine [Lantus U-100 Insulin] 100 unit/mL Solution 25 unit subcut DAILY 30 Days Qty: 15 0RF insulin aspart U-100 [Novolog FlexPen U-100 Insulin] 100 unit/mL (3 mL) insulin pen 5 unit subcut .tid with meals 30 Days Qty: 15 0RF acetaminophen 500 mg capsule 1,000 mg PO Q6H PRN (Reason: pain) Qty: 30 0RF alum-mag hydroxide-simeth [Liquid Antacid] 400-400-40 mg/5 mL suspension 10 ml PO TID PRN (Reason: indigestion) Qty: 3000 0RF (DME) Dexcom G6 Transmitter Device MISCELLANEOUS gabapentin 300 mg capsule 300 mg PO QHS Qty: 90 1RF (DME) insulin material flow analyst cart,aut,G6/7,cntr Cartridge See Rx Instructions .Route Qty: 1 0RF Rx Instructions: As directed cholecalciferol (vitamin D3) [Vitamin D3] 50 mcg (2,000 unit) capsule See Rx Instructions .ROUTE .COMPLEX Qty: 90 0RF Dose Instruction: Take 1 capsule by mouth once daily Rx Instructions: Take 1 capsule by mouth once daily folic acid 1 mg tablet See Rx Instructions .ROUTE .COMPLEX Qty: 90 0RF Dose Instruction: Take 1 tablet by mouth once daily Rx Instructions: Take 1 tablet by mouth once daily (DME) Omnipod 5 G6-G7 Pods (Gen 5) Cartridge See Rx Instructions .Route Qty: 30 5RF Rx Instructions: Change every 3 days mecobalamin (vitamin B12) 500 mcg tablet,chewable 500 mcg PO DAILY Qty: 30 0RF melatonin 10 mg Tablet 10 mg PO HS PRN (Reason: Insomnia) Qty: 30 0RF metoclopramide HCl 10 mg tablet 10 mg PO Q6H PRN (Reason: nausea and vomiting) Qty: 60 0RF Discontinued multivitamin Tablet 1 tablet PO DAILY Date of admission: 10/03/24 12:29 Primary Care Provider: Nam Carmona Admitting Provider: Jaya Peña Attending physician on admission: Jaya Peña Condition: Serious Quality VTE Prophylaxis VTE prophylaxis: pharmacologic ordered
[2024-10-10] MEDS: INSULIN GLARGINE (*BKC) 100 UNITS/ML 40 UNITS SUB-Q (09:11)
[2024-10-10 09:12] VITALS: PULSE 90
[2024-10-10] MEDS: ENOXAPARIN 40 MG/0.4 ML SYRINGE SUB-Q (09:12)
[2024-10-10] MEDS: METOPROLOL TARTRATE 25 MG TABLET PO (09:12)
[2024-10-10 12:01] LABS: Glucose Point of Care 125 mg/dl (65-105)
--- NOTE | 2024-10-10 13:10 | PC.NURSE ---
Pt ok to d/c to home per provider. Pt condition stable. Discharge instructions given, Pt verbalized understanding. Pt awaiting ride.
[2024-10-10 14:52] VITALS: BP 120/60; PULSE 88; RESP 20; TEMP 36.7; O2SAT 99
[2024-10-12 00:34] LABS: Norovirus RNA PCR, Stool NOT DETECTED
== END 2024-10-10 14:45 | disposition home or self-care (01) | DRG 420 ==
LOC: ANHED 07:51 → ANHICU 09:20 → ANH3MEDSUR 10-08 11:51
PROVIDERS: Emergency Medicine; General Practice; Internal Medicine; Admitting Provider Internal Medicine; Emergency Provider Emergency Medicine; PCP Family Medicine; Visit Provider Internal Medicine
DX: E10.10 Type 1 diabetes mellitus with ketoacidosis without coma (principal); E10.40 Type 1 diabetes mellitus with diabetic neuropathy, unspecified; E10.43 Type 1 diabetes mellitus with diabetic autonomic (poly)neuropathy; K31.84 Gastroparesis; E78.5 Hyperlipidemia, unspecified; F31.9 Bipolar disorder, unspecified; R11.2 Nausea with vomiting, unspecified; F12.10 Cannabis abuse, uncomplicated; F17.210 Nicotine dependence, cigarettes, uncomplicated; E10.65 Type 1 diabetes mellitus with hyperglycemia; E83.42 Hypomagnesemia; G43.909 Migraine, unspecified, not intractable, without status migrainosus; K52.9 Noninfective gastroenteritis and colitis, unspecified; K21.00 Gastro-esophageal reflux disease with esophagitis, without bleeding; Z20.822 Contact with and (suspected) exposure to COVID-19; Z79.4 Long term (current) use of insulin; Z96.41 Presence of insulin pump (external) (internal)
CPT/HCPCS: 36415; 71045; 74019; 74177; 80048; 80053; 80307; 81003; 82274; 82728; 82803; 82948; 83036; 83540; 83550; 83605; 83690; 83735; 84100; 84703; 85025; 87040; 87493; 87637; 87641; 87798; 93005; 96361; 96365; 96366; 96367; 96372; 96375; 96376; 97161; 99285; A9270; G0378; G0379; J0696; J0780; J1171; J1200; J1630; J1650; J1815; J1836; J2060; J2405; J2470; J2550; J2765; J3475; J3480; J7030; J7040; J7050; J7120; Q9967

== ENCOUNTER 2024-10-16 21:54 | Inpatient (IN) | payer OTHER, SELFPAY ==
--- NOTE | ~2024-10-16 | CT_ITS ---
EXAMINATION: CT abdomen pelvis wo con DATE: 10/17/2024 12:06 INDICATION: Abdominal pain TECHNIQUE: Computed tomography (CT) of the abdomen and pelvis was performed without intravenous contr ast. Automated exposure control and iterative reconstruction technique were employed. The dose-length product was 354.47 mGy-cm. COMPARISON: 10/02/24 FINDINGS: Lung bases are clear. Heart size is normal. No pericardial or pleural effusion. Small sliding-type hi atal hernia. High attenuation material in the dependent aspect of the partially decompressed gallblad dionte which is new since the recent prior study which would be most consistent with vicariously excrete d contrast. Liver, spleen, pancreas, bilateral adrenal glands and kidneys are normal. Bladder and ant everted uterus are normal. Again seen is a subcentimeter cyst with rim calcific location and adjacent coarse calcification at the left ovary. 1.7 cm right ovarian cyst/follicle. No free intraperitoneal gas or fluid. No pathologically enlarged abdominal or pelvic lymphadenopathy. Bones are unremarkable. IMPRESSION: 1. No acute intra-abdominal/pelvic process. 2. Small sliding-type hiatal hernia. Reviewed, dictated and finalized at location A. ALL BOARDHANGER
--- NOTE | ~2024-10-16 | US_ITS ---
EXAMINATION: US thyroid DATE: 10/18/2024 15:16 INDICATION: Abnormal thyroid function testing in a hospitalized patient, in the ICU. Thyroid ultrasound examination requested. TECHNIQUE: Multiple ultrasound images of the thyroid were obtained. COMPARISON: None. FINDINGS: The right thyroid lobe measures 5.1 x 1.7 x 2.0 cm. The left thyroid lobe measures 4.1 x 1.4 x 1.6 cm. The isthmus measures 0.4cm in anterior to posterior dimension. There is heterogeneous echotexture and echogenicity throughout the thyroid gland. No discrete suspicious nodules identified. Increased vascular flow is present. IMPRESSION: Heterogeneous echotexture with increased vascular flow throughout the entirety of the thyroid gland. Reviewed, dictated and finalized at location A. TAL PRINTER
--- NOTE | ~2024-10-16 | XR_ITS ---
EXAMINATION: XR chest 1V portable DATE: 10/17/2024 01:32 INDICATION: Diabetic ketoacidosis TECHNIQUE: frontal view of the chest was obtained. COMPARISON: Chest radiograph dated 10/02/2024 FINDINGS: The lungs remain clear with no focal airspace opacities, pulmonary edema, pleural effusion or pneumot horax. The cardiomediastinal silhouette is normal. Visualized bones and soft tissues are unremarkable . IMPRESSION: 1. Normal chest radiograph. Reviewed, dictated and finalized at location A. PICKER IMPRESSION: 1. Normal chest radiograph.
--- NOTE | ~2024-10-16 | XR_ITS ---
EXAMINATION: XR abdomen/kub 1V DATE: 10/17/2024 14:50 INDICATION: Nasogastric tube placement. TECHNIQUE: A supine view of the abdomen was obtained. COMPARISON: Abdomen radiograph 10/03/2024 FINDINGS: The lower abdomen is excluded. There are no dilated loops of bowel. The nasogastric tube ti p is in the stomach. IMPRESSION: 1. Nasogastric tube tip in the stomach. Reviewed, dictated and finalized at location A. MOTIVE QUALITY MANAGER
--- OUTSIDE RECORDS SUMMARY | 2024-10-16 21:47 | XMS_ITS | Data Portability ---
Author Organization [facility] [employer], Main Office Address [address] [place] [address] Assessment No assessment recorded. Plan of Treatment Reminders Order Date Submit Date Provider Last Modified By Organization Details Last Modified Time Details Appointments None recorded. Lab None recorded. Referral endocrinolo gy referral 2022 023 shalonda De Leon MD, [address],, [facility], [place], [address], 3 15:20:08 nephrologis t referral 2022 023 [place], [address], [address], [place], [address], 3 12:35:35 Procedures None recorded. Surgeries None recorded. Imaging None recorded. Medication Orders Humalog U-100 Insulin 100 unit/mL subcutaneou s solution 2022 023 [facility] #[id number], [address], [place], [place], [id number], 3 14:41:39 Gvoke HypoPen 2-Pack 1 mg/0.2 mL subcutaneou s auto-inject or 2022 023 [facility] #[id number], [address], [place], [place], [id number], 3 14:42:39 gabapentin 300 mg capsule 2022 023 [facility] #[id number], [address], [place], [place], [id number], 3 14:44:52 famotidine 20 mg tablet 2022 023 [facility] #[id number], [address], [place], [place], [id number], 3 14:48:37 ondansetron 4 mg disintegrat ing tablet 2022 023 [facility] #[id number], [address], [place], [place], [id number], 3 14:49:22 Patient TargetsNo targets recorded. Patient InstructionsNo instructions recorded. Reason for Referral [facility]ure [facility]acker Referral for Pr oteinuria Referring Physician: Randee [...] 2016, 39(Tamayo ppl.1 ):s13 -s22 Not Available [facility] (Lab) [address], [place], [address], 05/11/2021 13:13:17 05/11/20 21 05/11/2021 COMPR EHENS CHIOMA METAB OLIC PANEL potassium 4.7 mmol/ L 3.5-5. 1 Not Available [facility] (Lab) [address] [place], [address], 05/11/2021 12:31:29 05/11/20 21 05/11/2021 COMPR EHENS CHIOMA METAB OLIC PANEL chloride 103 mmol/ L 98-107 Not Available [facility] (Lab) [address] [place], [address], 05/11/2021 12:31:29 05/11/20 21 05/11/2021 COMPR EHENS CHIOMA METAB OLIC PANEL carbon dioxide 25 mmol/ L 22-30 Not Available [facility] (Lab) [address] [place], [address], 05/11/2021 12:31:29 05/11/20 21 05/11/2021 COMPR EHENS CHIOMA METAB OLIC PANEL agap 11.7 mmol/ L 14-22 low Not Available [facility] (Lab) [address] [place], [address], 05/11/2021 12:31:29 05/11/20 21 05/11/2021 COMPR EHENS CHIOMA METAB OLIC PANEL glucose 327 mg/dL 70-99 high Not Available [facility] (Lab) [address] [place], [address], 05/11/2021 12:31:29 05/11/20 21 05/11/2021 COMPR EHENS CHIOMA METAB OLIC PANEL BUN 13 mg/dL 8-19 Not Available [facility] (Lab) [address] [place], [address], 05/11/2021 12:31:29 05/11/20 21 05/11/2021 COMPR EHENS CHIOMA METAB OLIC PANEL creatinine 0.75 mg/dL 0.66-1 .25 Not Available [facility] (Lab) [address] [place], [address], 05/11/2021 12:31:29 05/11/20 21 05/11/2021 COMPR EHENS CHIOMA METAB OLIC PANEL GFR >60 Refer ence Range : [place] GFR Healt hy Adult : >60 [...] lator can be locat ed on the [facility] websi te: https :[email or web address] [email or web address] rg/pr ofess ional s/kdo qi/gf r_cal culat or Not Available [facility] (Lab) [address] [place], [address], 05/11/2021 12:31:29 05/11/20 21 05/11/2021 COMPR EHENS CHIOMA METAB OLIC PANEL bilirubin, total 0.80 mg/dL 0.20-1 .30 Not Available [facility] (Lab) [address] [place], [address], 05/11/2021 12:31:29 05/11/20 21 05/11/2021 COMPR EHENS CHIOMA METAB OLIC PANEL sodium 135 mmol/ L 137-14 5 low Not Available [facility] (Lab) [address] [place], [address], 05/11/2021 12:31:29 05/11/20 21 05/11/2021 COMPR EHENS CHIOMA METAB OLIC PANEL alkaline phosphatase 71 U/L 38-126 Not Available [facility] (Lab) [address] [facility], [address], 05/11/2021 12:31:29 05/11/20 21 05/11/2021 COMPR EHENS CHIOMA METAB OLIC PANEL alanine aminotransfe rase 35 U/L 0-35 Not Available [facility] (Lab) [address] [place], [address], 05/11/2021 12:31:29 05/11/20 21 05/11/2021 COMPR EHENS CHIOMA METAB OLIC PANEL aspartate aminotransfe rase 48 U/L 15-37 high Not Available [facility] (Lab) [address] [place], [address], 05/11/2021 12:31:29 05/11/20 21 05/11/2021 COMPR EHENS CHIOMA METAB OLIC PANEL calcium 9.7 mg/dL 8.4-10 .2 Not Available [facility] (Lab) [address] [place], [address], 05/11/2021 12:31:29 05/11/20 21 05/11/2021 COMPR EHENS CHIOMA METAB OLIC PANEL total protein 7.5 g/dL 6.3-8. 2 Not Available [facility] (Lab) [address] [place], [address], 05/11/2021 12:31:29 05/11/20 21 05/11/2021 COMPR EHENS CHIOMA METAB OLIC PANEL albumin 4.4 g/dL 3.4-5. 0 Not Available [facility] (Lab) [address] [place], [address], 05/11/2021 12:31:29 05/11/20 21 05/11/2021 COMPR EHENS CHIOMA METAB OLIC PANEL globulin 3.1 g/dL 2.6-4. 2 Not Available [facility] (Lab) [address] [place], [address], 05/11/2021 12:31:29 05/11/20 21 05/11/2021 COMPR EHENS CHIOMA METAB OLIC PANEL A/G ratio 1.4 ratio 1.0-2. 0 Not Available [facility] (Lab) [address] [facility], [address], 05/11/2021 12:31:29 05/11/20 21 05/11/2021 MICRO ALBUM N RNDM W/CRE AT RATIO ur creat 64.98 mg/dL REFER ENCE RANGE NOT ESTAB LISHE D FOR RANDO M URINE CREAT ININE Not Available [facility] (Lab) [address] [place], [address], 05/11/2021 12:25:26 05/11/20 21 05/11/2021 MICRO ALBUM N RNDM W/CRE AT RATIO microalb <6.0 mg/L 0.0-16 .6 Not Available [facility] (Lab) [address] [place], [address], 05/11/2021 12:25:26 06/28/20 21 06/29/2021 MICRO ALBUM N RNDM W/CRE AT RATIO ur creat 156.68 mg/dL REFER ENCE RANGE NOT ESTAB LISHE D FOR RANDO M URINE CREAT ININE Not Available [facility] (Lab) [address] [place], [address], 06/29/2021 15:37:30 06/28/20 21 06/29/2021 MICRO ALBUM N RNDM W/CRE AT RATIO microalb 279.2 mg/L 0.0-16 .6 high Not Available [facility] (Lab) [address] [place], [address], 06/29/2021 15:37:30 06/28/20 21 06/29/2021 MICRO ALBUM [...] VOL. 26: S94-S , 2002 Not Available [facility] (Lab) [address] [place], [address], 06/29/2021 15:37:30 06/28/20 21 06/28/2021 HEMOG LOBIN A1C HA1C 8.5 % 4.0-6. 0 high Diabe dimple Scree brody Crite gin: <5.7% Consi stent with absen ce of diabe dimple 5.7-6 .4% Consi stent with incre ased risk for diabe dimple (pred iabet es) >OR=6 .5% Consi stent with diabe dimple REFER ENCE: Diabe dimple Care 2016, 39(Tamayo ppl.1 ):s13 -s22 Not Available [facility] (Lab) [address] [place], [address], 06/28/2021 21:31:55 06/28/20 21 06/28/2021 TSH thyroid-stim ulating hormone 1.970 uIU/m L 0.465- 4.680 Not Available [facility] (Lab) [address] [place], [address], 06/28/2021 17:02:41 06/28/20 21 06/28/2021 T4 FREE free T4 1.18 NG/dL 0.78-2 .19 Not Available [facility] (Lab) [address] [place], [address], 06/28/2021 16:51:26 06/28/20 21 06/28/2021 LIPID PANEL [...] WILL NOT BE REPOR MORGAN. Not Available [facility] (Lab) [address] [place], [address], 06/28/2021 16:40:22 06/28/20 21 06/28/2021 LIPID PANEL cholesterol 181 mg/dL 140-19 9 NIH NEAL NSUS RECOM MENDA TION FOR JAZMINE STERO L: ADULT CHILD LOW RISK: <200 <170 BORDE RLINE : <200- 239 ----- HIGH RISK: >240 >200 Not Available [facility] (Lab) [address] [place], [address], 06/28/2021 16:40:22 06/28/20 21 06/28/2021 LIPID PANEL triglyceride s 74 mg/dL 0-150 NIH NEAL NSUS REPOR T RECOM MENDA TION FOR TRIGL YCERI THOMAS: ADULT CHILD LOW RISK: <150 ----- BODER LINE: 150-1 99 ----- HIGH RISK: >200 ----- Not Available [facility] (Lab) [address] [place], [address], 06/28/2021 16:40:22 06/28/20 21 06/28/2021 LIPID PANEL HDL cholesterol 139 mg/dL 40- Not Available [facility] (Lab) [address] [place], [address], 06/28/2021 16:40:22 06/28/20 21 06/28/2021 COMPR EHENS CHIOMA METAB OLIC PANEL sodium 136 mmol/ L 137-14 5 low Not Available [facility] (Lab) [address] [place], [address], 06/28/2021 16:29:51 06/28/20 21 06/28/2021 COMPR EHENS CHIOMA METAB OLIC PANEL potassium 4.6 mmol/ L 3.5-5. 1 Not Available [facility] (Lab) [address] [place], [address], 06/28/2021 16:29:51 06/28/20 21 06/28/2021 COMPR EHENS CHIOMA METAB OLIC PANEL chloride 98 mmol/ L 98-107 Not Available [facility] (Lab) [address] [place], [address], 06/28/2021 16:29:51 06/28/20 21 06/28/2021 COMPR EHENS CHIOMA METAB OLIC PANEL carbon dioxide 29 mmol/ L 22-30 Not Available [facility] (Lab) [address] [place], [address], 06/28/2021 16:29:51 06/28/20 21 06/28/2021 COMPR EHENS CHIOMA METAB OLIC PANEL agap 13.6 mmol/ L 14-22 low Not Available [facility] (Lab) [address] [place], [address], 06/28/2021 16:29:51 06/28/20 21 06/28/2021 COMPR EHENS CHIOMA METAB OLIC PANEL glucose 194 mg/dL 70-99 high Not Available [facility] (Lab) [address] [place], [address], 06/28/2021 16:29:51 06/28/20 21 06/28/2021 COMPR EHENS CHIOMA METAB OLIC PANEL BUN 7 mg/dL 8-19 low Not Available [facility] (Lab) [address] [place], [address], 06/28/2021 16:29:51 06/28/20 21 06/28/2021 COMPR EHENS CHIOMA METAB OLIC PANEL creatinine 0.67 mg/dL 0.66-1 .25 Not Available [facility] (Lab) [address] [facility], [place], [address], 06/28/2021 16:29:51 06/28/20 21 06/28/2021 COMPR EHENS CHIOMA METAB OLIC PANEL GFR >60 Refer ence Range : [place] GFR Healt hy Adult : >60 [...] or ethni c subgr oups, such as [facility] nics. Outsi de the valid ated jorge [...] s/kdo qi/gf r_cal culat or Not Available [facility] (Lab) [address] [place], [address], 06/28/2021 16:29:51 06/28/20 21 06/28/2021 COMPR EHENS CHIOMA METAB OLIC PANEL alkaline phosphatase 80 U/L 38-126 Not Available [facility] (Lab) [address] [place], [address], 06/28/2021 16:29:51 06/28/20 21 06/28/2021 COMPR EHENS CHIOMA METAB OLIC PANEL alanine aminotransfe rase 35 U/L 0-35 Not Available [facility] (Lab) [address] [place], [address], 06/28/2021 16:29:51 06/28/20 21 06/28/2021 COMPR EHENS CHIOMA METAB OLIC PANEL aspartate aminotransfe rase 81 U/L 15-37 high Not Available [facility] (Lab) [address] [place], [address], 06/28/2021 16:29:51 06/28/20 21 06/28/2021 COMPR EHENS CHIOMA METAB OLIC PANEL bilirubin, total 1.50 mg/dL 0.20-1 .30 high Not Available [facility] (Lab) [address] [place], [address], 06/28/2021 16:29:51 06/28/20 21 06/28/2021 COMPR EHENS CHIOMA METAB OLIC PANEL calcium 9.6 mg/dL 8.4-10 .2 Not Available [facility] (Lab) [address] [place], [address], 06/28/2021 16:29:51 06/28/20 21 06/28/2021 COMPR EHENS CHIOMA METAB OLIC PANEL total protein 7.9 g/dL 6.3-8. 2 Not Available [facility] (Lab) [address] [place], [address], 06/28/2021 16:29:51 06/28/20 21 06/28/2021 COMPR EHENS CHIOMA METAB OLIC PANEL albumin 4.4 g/dL 3.4-5. 0 Not Available [facility] (Lab) [address] [place], [address], 06/28/2021 16:29:51 06/28/20 21 06/28/2021 COMPR EHENS CHIOMA METAB OLIC PANEL globulin 3.5 g/dL 2.6-4. 2 Not Available [facility] (Lab) [address] [place], [address], 06/28/2021 16:29:51 06/28/20 21 06/28/2021 COMPR EHENS CHIOMA METAB OLIC PANEL A/G ratio 1.3 ratio 1.0-2. 0 Not Available [facility] (Lab) [address] [place], [address], 06/28/2021 16:29:51 10/26/19 22 10/25/2021 HEMOG LOBIN A1C HA1C 8.0 % 4.0-6. 0 high Diabe dimple Scree brody Crite gin: <5.7% Consi stent with absen ce of diabe dimple 5.7-6 .4% Consi stent with incre ased risk for diabe dimple (pred iabet es) >OR=6 .5% Consi stent with diabe dimple REFER ENCE: Diabe dimple Care 2016, 39(Tamayo ppl.1 ):s13 -s22 Not Available [facility] (Lab) [address] [place], [address], 10/25/2021 19:02:25 10/26/19 22 10/25/2021 MICRO ALBUM N RNDM W/CRE AT RATIO ur creat 163.70 mg/dL REFER ENCE RANGE NOT ESTAB LISHE D FOR RANDO M URINE CREAT ININE Not Available [facility] (Lab) [address] [place], [address], 10/25/2021 18:50:35 10/26/19 22 10/25/2021 MICRO ALBUM N RNDM W/CRE AT RATIO microalb 32.2 mg/L 0.0-16 .6 high Not Available [facility] (Lab) [address] [place], [address], 10/25/2021 18:50:35 10/26/19 22 10/25/2021 MICRO ALBUM [...] VOL. 26: S94-S 96, 2002 Not Available [facility] (Lab) [address] [place], [address], 10/25/2021 18:50:35 10/26/19 22 10/25/2021 COMPR EHENS CHIOMA METAB OLIC PANEL carbon dioxide 27 mmol/ L 22-30 Not Available [facility] (Lab) [address] [place], [address], 10/25/2021 18:25:29 10/26/19 22 10/25/2021 COMPR EHENS CHIOMA METAB OLIC PANEL sodium 130 mmol/ L 137-14 5 low Not Available [facility] (Lab) [address] [place], [address], 10/25/2021 18:25:29 10/26/19 22 10/25/2021 COMPR EHENS CHIOMA METAB OLIC PANEL potassium 4.6 mmol/ L 3.5-5. 1 Not Available [facility] (Lab) [address] [place], [address], 10/25/2021 18:25:29 10/26/19 22 10/25/2021 COMPR EHENS CHIOMA METAB OLIC PANEL chloride 96 mmol/ L 98-107 low Not Available [facility] (Lab) [address] [place], [address], 10/25/2021 18:25:29 10/26/19 22 10/25/2021 COMPR EHENS CHIOMA METAB OLIC PANEL agap 11.6 mmol/ L 14-22 low Not Available [facility] (Lab) [address] [place], [address], 10/25/2021 18:25:29 10/26/19 22 10/25/2021 COMPR EHENS CHIOMA METAB OLIC PANEL glucose 298 mg/dL 70-99 high Not Available [facility] (Lab) [address] [place], [address], 10/25/2021 18:25:29 10/26/19 22 10/25/2021 COMPR EHENS CHIOMA METAB OLIC PANEL BUN 18 mg/dL 8-19 Not Available [facility] (Lab) [address] [place], [address], 10/25/2021 18:25:29 10/26/19 22 10/25/2021 COMPR EHENS CHIOMA METAB OLIC PANEL creatinine 0.58 mg/dL 0.66-1 .25 low Not Available [facility] (Lab) [address] [place], [address], 10/25/2021 18:25:29 10/26/19 22 10/25/2021 COMPR EHENS CHIOMA METAB OLIC PANEL GFR >60 Refer ence Range : [place] GFR Healt hy Adult : >60 [...] calcu lator is avail able on the [facility] websi te: [email or web address] :[email or web address] [email or web address] christa/pr francisca peguero s/justao qi/gf r_cal culat or Not Available [facility] (Lab) [address] [place], [address], 10/25/2021 18:25:29 10/26/19 22 10/25/2021 COMPR EHENS CHIOMA METAB OLIC PANEL alkaline phosphatase 78 U/L 38-126 Not Available [facility] (Lab) [address] [place], [address], 10/25/2021 18:25:29 10/26/19 22 10/25/2021 COMPR EHENS CHIOMA METAB OLIC PANEL alanine aminotransfe rase 15 U/L 0-35 Not Available [facility] (Lab) [address] [place], [address], 10/25/2021 18:25:29 10/26/19 22 10/25/2021 COMPR EHENS CHIOMA METAB OLIC PANEL aspartate aminotransfe rase 23 U/L 15-37 Not Available [facility] (Lab) [address] [place], [address], 10/25/2021 18:25:29 10/26/19 22 10/25/2021 COMPR EHENS CHIOMA METAB OLIC PANEL bilirubin, total 1.10 mg/dL 0.20-1 .30 Not Available [facility] (Lab) [address] [place], [address], 10/25/2021 18:25:29 10/26/19 22 10/25/2021 COMPR EHENS CHIOMA METAB OLIC PANEL calcium 9.3 mg/dL 8.4-10 .2 Not Available [facility] (Lab) [address] [place], [address], 10/25/2021 18:25:29 10/26/19 22 10/25/2021 COMPR EHENS CHIOMA METAB OLIC PANEL total protein 7.2 g/dL 6.3-8. 2 Not Available [facility] (Lab) [address] [place], [address], 10/25/2021 18:25:29 10/26/19 22 10/25/2021 COMPR EHENS CHIOMA METAB OLIC PANEL albumin 4.1 g/dL 3.4-5. 0 Not Available [facility] (Lab) [address] [place], [address], 10/25/2021 18:25:29 10/26/19 22 10/25/2021 COMPR EHENS CHIOMA METAB OLIC PANEL globulin 3.1 g/dL 2.6-4. 2 Not Available [facility] (Lab) [address] [place], [address], 10/25/2021 18:25:29 10/26/19 22 10/25/2021 COMPR EHENS CHIOMA METAB OLIC PANEL A/G ratio 1.3 ratio 1.0-2. 0 Not Available [facility] (Lab) [address] [place], [address], 10/25/2021 18:25:29 01/12/20 23 01/11/2023 MICRO ALBUM N RNDM W/CRE AT RATIO ur creat 271.14 mg/dL REFER ENCE RANGE NOT ESTAB LISHE D FOR RANDO M URINE CREAT ININE Not Available [facility] (Lab) [address] [place], [address], 01/11/2023 16:33:17 01/12/20 23 01/11/2023 MICRO ALBUM N RNDM W/CRE AT RATIO microalbumin , urine >1140. 0 mg/L 0.0-16 .6 high Not Available [facility] (Lab) [address] [place], [address], 01/11/2023 16:33:17 01/12/20 23 01/11/2023 LIPID PANEL cholesterol 186 mg/dL 140-19 9 NIH NEAL NSUS RECOM MENDA TION FOR JAZMINE STERO L: ADULT CHILD LOW RISK: <200 <170 BORDE RLINE : <200- 239 ----- HIGH RISK: >240 >200 Not Available [facility] (Lab) [address] [place], [address], 01/11/2023 16:14:07 01/12/20 23 01/11/2023 LIPID PANEL triglyceride s 81 mg/dL 0-150 NIH NEAL NSUS REPOR T RECOM MENDA TION FOR TRIGL YCERI THOMAS: ADULT CHILD LOW RISK: <150 ----- BODER LINE: 150-1 99 ----- HIGH RISK: >200 ----- Not Available [facility] (Lab) [address] [place], [address], 01/11/2023 16:14:07 01/12/20 23 01/11/2023 LIPID PANEL HDL cholesterol 109 mg/dL 40- Not Available [facility] (Lab) [address] [facility] [place], [address], 01/11/2023 16:14:07 01/12/20 23 01/11/2023 LIPID PANEL [...] WILL NOT BE REPOR MORGAN. Not Available [facility] (Lab) [address] [place], [address], 01/11/2023 16:14:07 01/12/20 23 01/11/2023 COMPR EHENS CHIOMA METAB OLIC PANEL sodium 136 mmol/ L 137-14 5 low Not Available [facility] (Lab) [address] [place], [address], 01/11/2023 16:14:14 01/12/20 23 01/11/2023 COMPR EHENS CHIOMA METAB OLIC PANEL potassium 4.3 mmol/ L 3.5-5. 1 Not Available [facility] (Lab) [address] [place], [address], 01/11/2023 16:14:14 01/12/20 23 01/11/2023 COMPR EHENS CHIOMA METAB OLIC PANEL chloride 102 mmol/ L 98-107 Not Available [facility] (Lab) [address] [place], [address], 01/11/2023 16:14:14 01/12/20 23 01/11/2023 COMPR EHENS CHIOMA METAB OLIC PANEL carbon dioxide 28 mmol/ L 22-30 Not Available [facility] (Lab) [address] [place], [address], 01/11/2023 16:14:14 01/12/20 23 01/11/2023 COMPR EHENS CHIOMA METAB OLIC PANEL anion gap 10.3 mmol/ L 14-22 low Not Available [facility] (Lab) [address] [place], [address], 01/11/2023 16:14:14 01/12/20 23 01/11/2023 COMPR EHENS CHIOMA METAB OLIC PANEL glucose 181 mg/dL 70-99 high Not Available [facility] (Lab) [address] [place], [address], 01/11/2023 16:14:14 01/12/20 23 01/11/2023 COMPR EHENS CHIOMA METAB OLIC PANEL BUN 11 mg/dL 8-19 Not Available [facility] (Lab) [address] [place], [address], 01/11/2023 16:14:14 01/12/20 23 01/11/2023 COMPR EHENS CHIOMA METAB OLIC PANEL creatinine 0.58 mg/dL 0.66-1 .25 low Not Available [facility] (Lab) [address] [place], [address], 01/11/2023 16:14:14 01/12/20 23 01/11/2023 COMPR EHENS CHIOMA METAB OLIC PANEL GFR >60 Refer ence Range : [place] GFR Healt hy Adult : >60 [...] calcu lator is avail able on the [facility] websi te: https :[email or web address] [email or web address] [email or web address] rg/pr ofess ional s/kdo qi/gf r_cal culat or Not Available [facility] (Lab) [address] [place], [address], 01/11/2023 16:14:14 01/12/20 23 01/11/2023 COMPR EHENS CHIOMA METAB OLIC PANEL alkaline phosphatase 92 U/L 38-126 Not Available [facility] (Lab) [address] [place], [address], 01/11/2023 16:14:14 01/12/20 23 01/11/2023 COMPR EHENS CHIOMA METAB OLIC PANEL alanine aminotransfe rase 28 U/L 0-35 Not Available [facility] (Lab) [address] [place], [address], 01/11/2023 16:14:14 01/12/20 23 01/11/2023 COMPR EHENS CHIOMA METAB OLIC PANEL aspartate aminotransfe rase 46 U/L 15-37 high Not Available [facility] (Lab) [address] [place], [address], 01/11/2023 16:14:14 01/12/20 23 01/11/2023 COMPR EHENS CHIOMA METAB OLIC PANEL bilirubin, total 0.50 mg/dL 0.20-1 .30 Not Available [facility] (Lab) [address] [place], [address], 01/11/2023 16:14:14 01/12/20 23 01/11/2023 COMPR EHENS CHIOMA METAB OLIC PANEL calcium 8.7 mg/dL 8.4-10 .2 Not Available [facility] (Lab) [address] [place], [address], 01/11/2023 16:14:14 01/12/20 23 01/11/2023 COMPR EHENS CHIOMA METAB OLIC PANEL total protein 7.0 g/dL 6.3-8. 2 Not Available [facility] (Lab) [address] [place], [address], 01/11/2023 16:14:14 01/12/20 23 01/11/2023 COMPR EHENS CHIOMA METAB OLIC PANEL albumin 3.7 g/dL 3.4-5. 0 Not Available [facility] (Lab) [address] [place], [address], 01/11/2023 16:14:14 01/12/20 23 01/11/2023 COMPR EHENS CHIOMA METAB OLIC PANEL globulin 3.3 g/dL 2.6-4. 2 Not Available [facility] (Lab) [address] [place], [address], 01/11/2023 16:14:14 01/12/20 23 01/11/2023 COMPR EHENS CHIOMA METAB OLIC PANEL A/G ratio 1.1 ratio 1.0-2. 0 Not Available [facility] (Lab) [address] [place], [address], 01/11/2023 16:14:14 01/12/20 23 01/11/2023 T4 FREE free T4 1.17 NG/dL 0.78-2 .19 Not Available [facility] (Lab) [address] [place], [address], 01/11/2023 16:33:28 05/01/11/2023 TSH thyroid-stim ulating hormone 2.230 uIU/m L 0.465- 4.680 Not Available [facility] (Lab) [address] [place], [address], 01/11/2023 16:44:12 01/12/2001/11/2023 HEMOG LOBIN A1C HA1C 8.9 % 4.0-6. 0 high Diabe dimple Scree brody Crite gin: <5.7% Consi stent with absen ce of diabe dimple 5.7-6 .4% Consi stent with incre ased risk for diabe dimple (pred iabet es) >OR=6 .5% Consi stent with diabe dimple REFER ENCE: Diabe dimple Care 2016, 39(Tamayo ppl.1 ):s13 -s22 Not Available [facility] (Lab) [address] [place], [address], 01/11/2023 20:44:58 03/28/2003/28/2023 XR, chest No observ ation record ed. [facility] [address] [place], [address], 04/01/2023 08:54:36 Result Notes None recorded. Problems Name Problem SNOMED Code Status Onset Date Resolution Date Notes Provider Name and Address Organization Details Recorded Time Burn of foot 17729823 Active 2020 Not Available [facility] 3 11:22:34 Alcohol abuse 73663338 Active Not Available [facility] 3 11:22:34 Gonococcal cervicitis 415588320 Completed Not Available [facility] 3 02:55:23 Chlamydial cervicitis 689023783 Completed Not Available [facility] 3 02:55:23 Vaginal discharge 057442878 Active Not Available [facility] 3 11:22:34 Low back pain 978476484 Active 2018 Not Available [facility] 3 11:22:34 Pain in pelvis 24809559 Active Not Available [facility] 3 11:22:34 Bacterial vaginosis 055855058 Active Not Available [facility] 3 11:22:34 Nausea 586810173 Active 2021 Not Available [facility] 3 11:22:34 Diabetic peripheral neuropathy 566925128 Active 2021 Not Available [facility] 3 11:22:34 Uncontroll ed type 1 diabetes mellitus 078456087 Active 2021 Not Available [facility] 3 11:22:34 Diabetes mellitus 98418157 Active 2020 Not Available [facility] 3 11:22:34 Cyst of ovary 91177539 Active Not Available [facility] 3 11:22:34 Irregular periods 54793682 Active Not Available [facility] 3 11:22:34 Hyperglyce ivan 36708478 Active Not Available [facility] 3 11:22:34 Proteinuri a 30339899 Active 2022 Randee Kilpatrick MD [address], [address] , [facility] [employer] [facility] 3 14:44:54 Gastroesop hageal reflux disease without esophagiti s 492567025 Active 2022 Randee Kilpatrick MD [address] [facility], [place] [address], [place], [address] , [employer] [facility] [employer] [facility] 3 14:47:59 Problem Notes None recorded. Procedures Surgical History Date Name Laterality Status Provider Name and Address Organization Details Recorded Time 0 [employer] Procedure completed Not Available [facility] 2022 02:48:31 0 [employer] Procedure completed Not Available [facility] 2022 02:48:31 8 Date of Last Pap Smear completed Not Available [facility] [facility] 10/24/2022 02:48:28 7 [employer] Procedure completed Not Available [facility] 2022 02:48:31 delivery completed Not Available [facility] 10/24/2022 02:48:31 Imaging Results Imaging Date Name Status LastModified by Organiz ation Details LastModified Time 03/28/2023 XR, chest completed [email or web address] [facility] [address] [place], [address], 04/01/2023 08:54:36 Procedure Notes None recorded. Medical [...] Not Available No t Available Dexcom G6 [employer] USE DIRECTED active Not Available Not Available [...] Address Organization Details Last Updated DateTime 3 66758.2 7 g 29.1 kg/m2 162.56 cm 12 /min 98.1 [degF] 76 /min 127 mm[Hg] 81 mm[Hg] Meg Richard RN [place] - [place] [facility] 3 14:11:14 Date Recorded Body mass index (BMI) Body height Oxygen saturation Oxygen saturation in Arterial blood by Pulse oximetry Heart rate Respiratory rate Body weight Systolic blood pressure Diastolic blood pressure Provider Name and Address Organization Details Last Updated DateTime 1 25.6 kg/m2 162.56 cm 99 % 99 % 88 /min 18 /min 39051.2 6 g 122 mm[Hg] 80 mm[Hg] Not Available [facility] 3 02:52:06 Date Recorded Body mass index (BMI) Body height Oxygen saturation Oxygen saturation in Arterial blood by Pulse oximetry Heart rate Body temperature Body weight Systolic blood pressure Diastolic blood pressure Provider Name and Address Organization Details Last Updated DateTime 1 26.1 kg/m2 162.56 cm 99 % 99 % 82 /min 98 [degF] 40514.0 4 g 116 mm[Hg] 74 mm[Hg] Not Available [facility] 3 02:52:06 Date Recorded Body mass index (BMI) Body height Oxygen saturation Oxygen saturation in Arterial blood by Pulse oximetry Heart rate Body temperature Body weight Systolic blood pressure Diastolic blood pressure Provider Name and Address Organization Details Last Updated DateTime 2 25.1 kg/m2 162.56 cm 99 % 99 % 88 /min 97.7 [degF] 09686.4 9 g 116 mm[Hg] 82 mm[Hg] Not Available [facility] 3 02:52:06 Date Recorded Body mass index (BMI) Body height Oxygen saturation Oxygen saturation in Arterial blood by Pulse oximetry Heart rate Body temperature Body weight Systolic blood pressure Diastolic blood pressure Provider Name and Address Organization Details Last Updated DateTime 2 26.3 kg/m2 162.56 cm 100 % 100 % 84 /min 97.8 [degF] 22525.6 3 g 110 mm[Hg] 70 mm[Hg] Not Available [facility] 3 02:52:06 Social History Question Answer Notes LastModified by Yoyoizat ion Details LastModified Time Tobacco Smoking Status Current Every Day Smoker Not Available [facility] 10/24/2022 02:43:10 What Is Your Level Of Alcohol Consumption? Occasional [id number] Information not available 10/24/2022 What Is Your Level Of Caffeine Consumption? Heavy [id number] Information not available 10/24/2022 How Much Tobacco Do You Chew? None MIGRATION.[id number] Information not available 10/24/2022 In The 14 Days Before Symptom Onset, Have You Had Close Contact With A Laboratory-confir med COVID-19 While That Case Was Ill? No [id number] Information not available 10/24/2022 In The 14 Days Before Symptom Onset, Have You Had Close Contact With A Person Who Is Under Investigation For COVID-19 While That Person Was Ill? No MIGRATION.[id number] Information not available 10/24/2022 What Type Of Diet Are You Following? REGULAR MIGRATION.[id number] Information not available 10/24/2022 Which Illicit Or Recreational Drugs Have You Used? None MIGRATION.[id number] Information not available 10/24/2022 Do You Or Have You Ever Used E-cigarettes Or Vape? 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 Domestic Partner MIGRATION.[id number] Information not available 10/24/2022 Do You Or Have You Ever Used Smokeless Tobacco? Never Used Smokeless Tobacco MIGRATION.[id number] Information not available 10/24/2022 How Much Tobacco Do You Smoke? 1 PPD MIGRATION.[id number] 3679 Information not available 10/24/2022 Do You Use Any Illicit Or Recreational Drugs? No MIGRATION.[id number] Information not available 10/24/2022 Have You Recently Traveled Abroad? No MIGRATION.[id number] 3226 Information not available 10/24/2022 Do You Have Any Dietary Restrictions? No MIGRATION.416018 0656 Information not available 10/24/2022 Sex: Female Functional Status None recorded. Mental Status None recorded. Family History Relationship Description Onset Age of this Age Resolved Age Notes LastModified by Organization Details LastModified Time Father Diabetes mellitus [id number] Not available 10/24/2022 02:48:34 Paternal Grandmother Malignant tumor of breast [id number] Not available 10/24/2022 02:48:34 Medical History Condition [...] virus, quadrivalent, PF 06/24/2018 completed Not Available [facility] 09:09:38 Past Encounters Encounter ID Performer Location Encounter Start Date Encounter Closed Date Diagnosis/Indication Diagnosis SNOMED-CT Code Diagnosis ICD10 Code Diagnosis Note [id number] _ATHENA_M IGRATION_ DEFAULT_1 _1 , 01/12/2021 00:00:00 01/16/2021 21:13:51 [id number] _ATHENA_M IGRATION_ DEFAULT_1 _1 , 04/06/2021 00:00:00 04/06/2021 18:21:27 [id number] [facility] [address] [place] [address] 05/16/2021 00:00:00 05/16/2021 16:30:44 [id number] [facility] [address] [place] [address] 05/17/2021 00:00:00 05/17/2021 13:41:42 [id number] [facility] [address] [place] [address] 05/31/2021 00:00:00 05/31/2021 15:23:51 [id number] [facility] [address] [place] [address] 06/07/2021 00:00:00 06/07/2021 16:59:02 [id number] _ATHENA_M IGRATION_ DEFAULT_1 _1 , 06/29/2021 00:00:00 06/29/2021 16:26:41 [id number] _ATHENA_M IGRATION_ DEFAULT_1 _1 , 10/26/2021 00:00:00 10/26/2021 18:19:39 [id number] _ATHENA_M IGRATION_ DEFAULT_1 _1 , 02/01/2022 00:00:00 02/15/2022 12:52:22 [id number] Randee Kilpatrick MD [facility] [address] [place] [address] 03/26/2023 13:59:58 03/26/2023 15:20:08 Uncontrolled type 1 diabetes mellitus 886266624 E10.65 A1C of 8.9% from December- patient [...] for further care. Diabetic p eripheral neuropathy 600257745 E11.40 Refill gabapentin for neuropathy as she is able to sleep when taking her once daily dosing. Proteinuria 21451350 R80 .9 Refer to nephrology for significan t proteinuri a. Gastroesop hageal reflux disease without esophagitis 091083219 K21.9 Trial on famotidine - she has [...] Sosa Member ID Guarantor Name 03/26/2023 1 [facility] (MEDICAID HMO) [id number] Tara Hinkle [id number] Tara Hinkle Notes Date Note Type Note [...] 1.17 ng/dLmicroalbumin >1140 ug/mgglucose 181 mg/dlCr normalALT [id number]/81/109/6 1 Randee Kilpatrick MD [address] [facility] [address], [place], [address], [place] - [facility] [place] [employer] [facility] 03/26/2023 14:54:34 OBGyn Episode No OBEpisode recorded.
--- OUTSIDE RECORDS SUMMARY | 2024-10-16 21:47 | XMS_ITS | Referral Summary ---
Author Organization [facility] Address [address] [place] [address] [place] [address] Care Team Providers Care Store Mgr Name Role Phone Unavailable Primary Care Provider Unavailabl e Source Comments [facility],non-owned Affiliates and Associated Physician Practices is amultiple site organization consisting of ambulatory clinics and hospital sitesin [place], [place], [place] and [place]. This disclosure is being madepursuant to the Care Everywhere program and may not contain all information available regarding this patient. Last updated [employer] Allergies No known active allergies Medications * [...] complication 10/06/2009 Overview (10/06/2009): 2 prior at [facility], pt wants repeat. Both LTCS. Need for vzvhdtx-uwuse-rzcphpg (MMR) vaccine 06/2010 Overview (01/17/2015): MMR after [...] (11/10/2010 4:35 PM CDT) HIV-1/HIV-2 Nonreactive Nonreactive [facility] BLOOD SPECIMEN / Unknown 11/10/2010 4:35 PM CDT 11/10/2010 4:45 PM CDT Ladonna Vasques MD LAB - CHEMIS TRY ORDERABLES Performing Organization Address [facility] de Phone Number [facility] [address] [place] [phone] * HEPATITIS C ANTIBODY (11/10/2010 4:35 PM CDT) Hepatitis C Antibody Screen Nonreactive Nonreactive [facility] BLOOD SPECIMEN / Unknown 11/10/2010 4:35 PM CDT 11/10/2010 4:45 PM CDT Ladonna Vasques MD LAB - CHEMIS TRY ORDERABLES Performing Organization Address [facility] Co de Phone Number [facility] [address] [place] [address] * CYTOLOGY CERVICAL/VAG SCREEN THIN PREP (11/10/2010 4:30 PM CDT) Comment Thin Prep [facility] Pap Smear Report See Scanned Report [facility] ENTIRE ENDOCERVIX / Unknown 11/10/2010 4:30 PM CDT 11/10/2010 4:45 PM CDT Narrative Resulting Agency Comment Performed By [facility]ST[facility]() [address] [place], [place] [address] Ladonna Vasques MD LAB - PATHOL OGY/CYTOLOGY ORDERABLES [facility] [address] [place] [address] from Last 3 Months or Most Recently [...]
--- OUTSIDE RECORDS SUMMARY | 2024-10-16 21:47 | XMS_ITS | Patient Health Summary ---
Author Organization [facility] Address [facility] [place] [address] Care Team Providers Care Shape Carver Name Role Phone Unavailable Primary Care Provider Laurent e Note from [facility],non-owned Affiliates and Associated Physician Practices is amultiple site organization consisting of ambulatory clinics and hospital sitesin [place], [place], [place]. This disclosure is being madepursuant to the Care Everywhere program and may not contain all information available regarding this patient. Last updated 18.[facility] Allergies No known active allergies Medications * [...] antepartum condition or complication 10/06/2009 Need for uwlzmyy-dlogy-pcrvidd (MMR) vaccine 06/2010 Diabetes mellitus type 1 [...] PM CDT) RPR Non-Reacti ve Non Reactive [facility] BLOOD SPECIMEN / Unknown 11/10/2010 4:35 PM CDT 11/10/2010 4:45 PM CDT Ladonna Vasques MD LAB - CHEMIS TRY ORDERABLES Performing Organization Address City/[facility] Co de Phone Number [facility] [address] [place] [address] * HIV-1 HIV-2 ANTIBODY (11/10/2010 4:35 PM CDT) Only the most recent of2 resultswithin the time period is included. Pathologist [facility] HIV-1/HIV-2 Nonreactive Nonreactive [facility] BLOOD SPECIMEN / Unknown 11/10/2010 4:35 PM CDT 11/10/2010 4:45 PM CDT Ladonna Vasques MD LAB - CHEMIS TRY ORDERABLES Performing Organization Address City/[facility] Co de Phone Number [facility] [address] [place] [address] * HEPATITIS B SURFACE ANTIGEN (11/10/2010 4:35 PM CDT) Pathologist [facility] Hepatitis B Virus Surface Antigen Nonreactive Nonreactive [facility] BLOOD SPECIMEN / Unknown 11/10/2010 4:35 PM CDT 11/10/2010 4:45 PM CDT Ladonna Vasques MD LAB - CHEMIS TRY ORDERABLES Performing Organization Address [facility] Co de Phone Number [facility] [address] [place] [phone] * HEPATITIS C ANTIBODY (11/10/2010 4:35 PM CDT) Hepatitis C Antibody Screen Nonreactive Nonreactive [facility] BLOOD SPECIMEN / Unknown 11/10/2010 4:35 PM CDT 11/10/2010 4:45 PM CDT Ladonna Vasques MD LAB - CHEMIS TRY ORDERABLES Performing Organization Address [facility] de Phone Number [facility] [address] [place] [phone] * CYTOLOGY CERVICAL/VAG SCREEN THIN PREP (11/10/2010 4:30 PM CDT) Only the most recent of2 resultswithin the time period is included. Comment Thin Prep [facility] Pap Smear Report See Scanned Report [facility] ENTIRE ENDOCERVIX / Unknown 11/10/2010 4:30 PM CDT 11/10/2010 4:45 PM CDT Narrative Resulting Agency Comment Performed By [facility]() [address] [place] [address] Ladonna Vasques MD LAB - PATHOL OGY/CYTOLOGY ORDERABLES Performing Organization Address City/[facility] Co de Phone Number [facility] [address] [place] [address] * CHLAMYDIA + GC DNA PROBE AMPLIFIED (11/10/2010 4:30 PM CDT) Only the most recent of3 resultswithin the time period is included. Chlamydia trachomatis Amplified Probe Neg [facility] GC Amplified Probe Neg [facility] Comment Amplified Probe [facility] Comment: Comments and Normal Ranges for Component DNA Probe comment Results based on detection/no detection of ribosomal RNA by amplified method. ENTIRE ENDOCERVIX / Unknown 11/10/2010 4:30 PM CDT 11/10/2010 4:46 PM CDT Narrative Resulting Agency Comment Performed By [address] [place] [address] Ladonna Vasques MD LAB - MICROB IOLOGY ORDERABLES Performing Organization Address City/[facility]/ZIP Co de Phone Number [facility] [address] [place] [address] * HCG URINE QUALITATIVE - POINT OF CARE (07/10/2010 9:18 AM CURB MACHINE OPERATOR) Only the most recent of2 resultswithin the time period is included. HCG Qual Urine neg Negative [facility] POCT TESTING QC Verified yes Yes [facility] POC T TESTING Urine specimen (specimen) URINE / Unknown 07/10/2010 9:18 AM CURB MACHINE OPERATOR Paige Torres MD LAB - POINT OF CARE ORDERABLES Performing Organization Address [facility] Co de Phone Number [facility] [place] [address] * IMAGING/RADIOLOGY/XRAY RESULTS ORDER (05/17/2010 2:19 PM [...] Glucose WB/POC 218(H) 70 - 110 mg/dl [facility] BLOOD SPECIMEN / Unknown 05/16/2010 12:22 PM CDT 05/16/2010 12:56 PM CDT Jordin Hartman MD LAB - POINT OF CARE ORDERABLES Performing Organization Address [facility]/ZIP Co de Phone Number [facility] [address] [place] [address] * (ABNORMAL) CBC W AUTO DIFFERENTIAL (05/14/2010 4:30 AM CDT) Only the most recent of4 resultswithin the time period is included. WBC 11.5(H) 4.0 - 10.0 K/CUMM [facility] RBC 3.93 3.80 - 5.80 M/CUMM [facility] Hemoglobin 10.8(L) 12.0 - 16.0 gm/dl [facility] Hematocrit 31.0(L) 37.0 - 47.0 % [facility] MCV 78.9(L) 80.0 - 100.0 fl [facility] MCH 27.5 26.0 - 34.0 pg [facility] MCHC 34.8 31.0 - 37.0 gm/dl [facility] Platelet Count 175 150 - 400 K/CUMM [facility] RDW 13.0 11.5 - 14.5 % [facility] Granulocytes % 74.2(DH) 50 - 70 % [facility] Lymphocytes % 14.4(DL) 20 - 40 % [facility] Monocytes % 8.9(DE) 0 - 12 % [facility] Eosinophils % 1.9 0 - 5 % [facility] Basophils % 0.2 0 - 2 % [facility] Granulocytes Absolute 8.56(H) 2.00 - 7.00 x1000/cmm [facility] Lymphocytes Absolute 1.66 0.80 - 4.00 x1000/cmm [facility] Monocytes Absolute 1.03 0.00 - 1.20 x1000/cmm [facility] Eosinophils Absolute 0.22 0.00 - 0.50 x1000/cmm [facility] Basophils Absolute 0.02 0.00 - 0.20 x1000/cmm [facility] BLOOD SPECIMEN / Unknown 05/14/2010 4:30 AM CDT 05/14/2010 5:01 AM CDT Ellen Bautista MD LAB - HEMATOLOGY OR DERABLES [facility] [address] [place] [address] * GROSS + MICRO EXAM (05/12/2010 4:00 [...] cm. The surface is covered by unremarkable, vige-fyflbl-[id number], slightly cloudy membranes. The maternal surface shows well- formed cotyledons and superficially adherent blood clot. Serial sectioning reveals an unremarkable, spongy, purple placental parenchyma. Electromechanical Equipment Tester sections of the specimen are submitted as [...] cord -- Mild acute chorioamnionitis LS/na GM Attending Radiologist na Pathologist Sita Dailey MD [employer]. 05/15/2010 1332 <1> CPT code 40736 MISCELLANEOUS SAMPLES / Unknown 05/12/2010 4:00 PM [...] Panic Value(s) Read Back By DYLAN Leary [facility] CORD BLOOD SPECIMEN / Unknown 05/12/2010 4:00 PM CDT 05/12/2010 5:42 PM CDT Ellen Bautista MD LAB - BLOOD GASES O PAGE Performing Organization Address [facility] Co de Phone Number [facility] [address] [place] [address] * (ABNORMAL) BLOOD GASES CORD ARTERIAL (05/12/2010 3:45 PM CDT) pH Cord Arterial 7.141(L) 7.16 - 7.30 [facility] pO2 Cord Arterial range 12 - 20 mm Hg [facility] HCO3 Cord Arterial 29. mmol/L [facility] Base Excess Cord Arterial -2.7 -2.0 - 2.0 [facility] Panic Value(s) Read Back By [id number] [facility] CORD BLOOD SPECIMEN / Unknown 05/12/2010 3:45 PM CDT 05/12/2010 5:36 PM CDT Narrative [facility] - 05/12/2010 5:40 PM CDT rct Ellen Bautista MD LAB - BLOOD GASES O PAGE Performing Organization Address [facility] Co de Phone Number [facility] [address] [place] [address] * GLUCOSE PROTEIN KETONE URINE - POINT [...] POINT OF CARE ORDERABLES Performing Organization Address City/[facility]/ZIP Co de Phone Number [facility] [place] [address] * TYPE + SCREEN PANEL (05/12/2010 8:13 AM CDT) Only the most recent of2 resultswithin the time period is included. ABO Rh B Pos SEE BELOW [facility] Comment: Weak D testing is not performed at [facility] Antibody Screen Neg [facility] Previous History Check Done Historical blood type on record, type verification complete. [facility] BLOOD SPECIMEN / Unknown 05/12/2010 8:13 AM CDT 05/12/2010 9:27 AM CDT Ellen Bautista MD LAB - BLOOD BANK OR DERABLES Performing Organization Address [facility] Co de Phone Number [facility] [address] [place] [address] * BIOPHYSICAL PROFILE W NST (05/10/2010) Anatomical Region Laterality Modality Other Liz Ramey MD [facility] ORDERABLES * LS RATIO FLUID (05/02/2010 10:30 AM CDT) L/S Ratio 2.9 SEE BELOW [facility] Comment: Immature <=1.5 Transitional 1.6-1.9 Mature >=2.0 Color Fluid Pale Yellow [facility] Character Amnio Slightly Hazy [facility] Gestational Age 37w4d [facility] Volume Amnio 10 ml [facility] Interpretation L/S Ratio [facility] Comment: PLEASE NOTE - L/S [...] - BODY FLUID ORDERABLES Performing Organization Address [facility] Co de Phone Number [facility] [address] [place] [address] * LUNG MATURITY (05/02/2010 10:30 AM CDT) FLM 38.5 SEE BELOW mg/g [facility] Comment: See Interpretation for Normals Color Fluid Pale Yellow [facility] Character Amnio Slightly Hazy [facility] Gestational Age 37w4d [facility] Volume Amnio 10 ml [facility] Interpretation FLM S [facility] Comment: FLM Immature ......... <= 39 mg/g Mature ......... >= 55 mg/g Results between 40 and 54 cannot be declared mature or immature and should be evaluated with caution. AMNIOTIC FLUID SPECIMEN / Unknown 05/02/2010 10:30 AM CDT 05/02/2010 11:20 AM CDT Sidney Vicente MD LAB - BODY FLUID ORDERABLES Performing Organization Address [facility] de Phone Number [facility] [address] [place] [address] * AMNIOCENTESIS W US GUIDANCE- MATURITY (05/02/2010) Anatomical Region Laterality Modality Other Hamidapablito Hernándezbradley HOYT [facility] ORDERABLES * (ABNORMAL) BASIC METABOLIC PANEL [...] eGFR by MDRD 129 >60 mL/min/1.7 3m2 [facility] Comment eGFR [facility] Comment: The eGFR does not apply to patients who are younger than 18 or older than 70. BLOOD SPECIMEN / Unknown 04/27/2010 5:33 AM CDT 04/27/2010 5:35 AM CDT Maria C Donahue MD LAB - CHEMISTRY ORDChas [facility] Performing Organization Address [facility] Co de Phone Number [facility] [address] [place] [address] * SONOGRAM - COMPLETE (04/27/2010) Only the most recent of3 resultswithin the time period is included. Anatomical Region Laterality Modality Other Sidney Vicente MD [facility] ORDERABLES * (ABNORMAL) HEMOGLOBIN A1C (04/24/2010 12:15 PM CDT) Only the most recent of4 resultswithin the time period is included. Hemoglobin A1c 7.4(H) 3.9 - 6.1 % [facility] Estimated Average Glucose 165.7 mg/dl [facility] BLOOD SPECIMEN / Unknown 04/24/2010 12:15 PM CDT 04/24/2010 2:32 PM CDT Yanira Chow DO LAB - CHEMISTRY ORDChas HUFF Performing Organization Address [facility] Co de Phone Number [facility] [address] [place] [address] * CULTURE STREP B (04/17/2010 1:20 PM CDT) Only the most recent of2 resultswithin the time period is included. Report [facility] Comment: Final - CULTURE BETA HEMOLYTIC STREP GROUP B Heavy growth If treatment is indicated, the organism can be expected to be susceptible to penicillins, cephalosporins and macrolides. Bacteremia/serious infection may require the addition of an aminoglycoside faxed to [phone] 04/19/10 MISCELLANEOUS SAMPLES / Unknown 04/17/2010 1:20 PM CDT 04/17/2010 2:36 PM CDT Narrative [facility] - 04/19/2010 8:54 AM CDT kevin 04/17 Yanira Chow DO LAB - MICROBIOLOGY O RDERABLES [facility] [address] [place] [address] * ECHO CONSULT - (03/27/2010 10:05 AM CDT) 03/27/2010 10:0 5 AM CDT Narrative [facility] - 03/27/2010 11:48 AM CDT , Echocardiogram 2D, M-mode, and Doppler Name: TARA HINKLE MR #: [id number] Study date: 03/27/2010 Age: : 1985 Gender: Female Ht: / Wt: / BSA: HR: BP: / age: TORSTEN: Maternal age: REFERRING PHYSICIAN: Sidney Vicente MD INSURANCE AND BENEFITS CLERK: Delia Jerez MD PEDIATRIC ECHO MUD MILL TENDER: CECIL Anthony Allergies: NKA History: , due to diabetes. Procedure: The procedure was performed in the echo lab. rhythm: The rhythm was normal sinus rhythm. The WA interval was 0 msec. morphology: There was [...] and Doppler Name: TARA HINKLE MR #: [id number] Study date: 03/27/2010 Age: : 1985 Gender: Female Ht: / Wt: / BSA: HR: BP: / age: TORSTEN: Maternal age: REFERRING PHYSICIAN: Sidney Vicente MD INSURANCE AND BENEFITS CLERK: Delia Jerez MD PEDIATRIC ECHO MUD MILL TENDER: CECIL Anthony Allergies: NKA History: , due to diabetes. Procedure: The procedure was performed in the echo lab. rhythm: The rhythm was normal sinus rhythm. The WA interval was 0 msec. morphology: There was [...] Jerez MD ECHO ORDERABLES Performing Organization Address City/State/[facility] Co de Phone Number [facility] [address] [place] [address] * (ABNORMAL) COMPREHENSIVE METABOLIC PANEL (02/22/2010 12:15 [...] LABORATORY Calcium 8.4 8.4 - 10.2 mg/dl [facility] Alkaline Phosphatase 55 38 - 126 U/L [facility] AST 15 8 - 39 U/L [facility] Bilirubin Total 0.5 0.2 - 1.3 mg/dl [facility] Protein Total 6.4 6.3 - 8.2 gm/dl [facility] Albumin 3.0(L) 3.9 - 5.0 gm/dl [facility] CO2 24 22 - 30 mmol/L [facility] ALT 5(L) 9 - 52 U/L [facility] eGFR by MDRD 98 >60 mL/min/1.7 3m2 [facility] Comment eGFR [facility] Comment: The eGFR does not apply to patients who are younger than 18 or older than 70. BLOOD SPECIMEN / Unknown 02/22/2010 12:15 AM CDT 02/22/2010 12:47 AM CDT Jerry Isaac MD LAB - CHEMISTRY ORDE REFUGIO Performing Organization Address City/[facility]/ZIP Co de Phone Number [facility] [address] [place] [address] * (ABNORMAL) PROTEIN URINE TIMED QUANTITATIVE (02/22/2010 12:00 AM CDT) Volume 24 Hour Urine 5140 ml [facility] Protein 24 Hour Urine 514(H) 42 - 225 mg/24hr [facility] URINE SPECIMEN COLLECTION, 24 HOURS / Unknown 02/22/2010 02/22/2010 12:47 AM CDT Ellen Villeda MD LAB - U RINE CHEMISTRY ORDERABLES [facility] [address] [place] [address] * CREATININE CLEARANCE URINE TIMED (02/22/2010 12:00 AM CDT) Creatinine 0.74 0.52 - 1.04 mg/dl [facility] Creatinine Urine 19.5 mg/dl [facility] Volume 24 Hour Urine 4631 ml/24 Hr [facility] Creatinine 24 Hour Urine 1002.3 800 - 1800 mg/24hr [facility] Creatinine Clearance 85 85 - 125 ml/min [facility] URINE SPECIMEN COLLECTION, 24 HOURS / Unknown 02/22/2010 02/22/2010 12:47 AM CDT Ellen Villeda MD LAB - U RINE CHEMISTRY ORDERABLES Performing Organization Address [facility] de Phone Number [facility] [address] [place] [address] * SONOGRAM - LIMITED (02/21/2010) Anatomical Region Laterality Modality Other Ellen Villeda MD [facility] ORD ERABLES * (ABNORMAL) URINALYSIS ROUTINE AUTO (02/20/2010 6:10 PM CDT) Source Clean Catch [facility] Color UA Pale Yellow [facility] Character UA Clear [facility] Glucose UA >=1000(AA) NEGATIVE mg/dl [facility] Bilirubin UA NEGATIVE NEGATIVE [facility] Ketone UA NEGATIVE NEGATIVE mg/dl [facility] Specific [place] UA 1.010 1.003 - 1.030 [facility] Blood UA NEGATIVE NEGATIVE [facility] pH UA 6.5 5.0 - 9.0 [facility] Protein UA NEGATIVE NEGATIVE-TR ABILIO mg/dl [facility] Urobilinogen UA 0.2 0.2 - 1.0 Edwina Units/dl [facility] Nitrite UA NEGATIVE NEGATIVE [facility] Leukocyte UA NEGATIVE NEGATIVE [facility] Reducing Substances UA >= 2.0(H) Negative gm/dl [facility] URINE SPECIMEN OBTAINED BY CLEAN CATCH PROCEDURE / Unknown 02/20/2010 6:10 PM CDT 02/20/2010 9:33 PM CDT Ellen Villeda MD LAB - U RINALYSIS ORDERABLES Performing Organization Address [facility]/ZIP Co de Phone Number [facility] [address] [place] [address] * ACETONE BLOOD QUALITATIVE (02/20/2010 6:10 PM CDT) Acetone Negative Negative [facility] BLOOD SPECIMEN / Unknown 02/20/2010 6:10 PM CDT 02/20/2010 9:14 PM CDT Ellen Villeda MD LAB - C HEMISTRY ORDERABLES [facility] [address] [place] [address] * ALPHA FETOPROTEIN BLOOD MATERNAL QUAD PANEL (12/15/2009 12:40 PM CDT) Alpha-Fetoprotein 38 ng/ml [facility] AFP MoM 1.23 [facility] HCG QUANT Serum 42056 IU/L [facility] hCG MoM 1.98 [facility] Estriol 1.45 ng/ml [facility] UE3 MoM 1.16 [facility] Dimeric Inhibin A 251 pg/ml [facility] RAMY MoM 1.77 [facility] Interpretation AFP S [facility] Comment: Comments and Normal Ranges for [...] (1 in 150) Trisomy 18 1 in [address] <1 in [address]1956 (1 in 100) Assuming the patient information listed is correct, this maternal serum screen is within normal limits. The interpretation is based on maternal age, gestational age, maternal weight, the presence or absence of insulin requiring maternal diabetes, maternal race, and number of fetuses, if known. Specimen First [facility] Maternal Weight 169 [facility] Maternal Age 23.0 [facility] Dating LNMP [facility] Gestational Age Exact 17.86 [facility] Insulin for Diabetes Yes [facility] Family History of Neural Tube Defect Unknown [facility] Maternal Race White [facility] Number of Fetuses Unknown [facility] Estimate Due Date [id number] [facility] Comment Ref Lab [facility] Comment: Comments and Normal Ranges for Component *No.of Fetuses To download an enhanced report for this test, scroll down to the Enhanced Laboratory Reports section (lower right) of the web page at/ [email or web address]. Enter the following username and password/ User Name/ iGUDd Password/ [email or web address] BLOOD SPECIMEN / Unknown 12/15/2009 12:40 PM CDT 12/15/2009 1:02 PM CDT Narrative Resulting Agency Comment Performed By [facility] [address] [place], [place] [address] Dayanna Stiles MD LAB - CHEMISTRY CRISTIANO HUFF [facility] [address] [place] [address] * (ABNORMAL) OBSTETRIC PANEL (10/06/2009 11:30 AM CURB MACHINE OPERATOR) WBC 10.2(H) 4.0 - 10.0 K/CUMM [facility] RBC 4.68 3.80 - 5.80 M/CUMM [facility] Hemoglobin 12.8 12.0 - 16.0 gm/dl [facility] Hematocrit 38.7 37.0 - 47.0 % [facility] MCV 82.7 80.0 - 100.0 fl [facility] MCH 27.4 26.0 - 34.0 pg [facility] MCHC 33.1 31.0 - 37.0 gm/dl [facility] RDW 13.9 11.5 - 14.5 % [facility] Platelet Count 236 150 - 400 K/CUMM [facility] Granulocytes % 66.1 50 - 70 % [facility] Lymphocytes % 22.1 20 - 40 % [facility] Monocytes % 9.3 0 - 12 % [facility] Eosinophils % 1.4 0 - 5 % [facility] Basophils % 0.7 0 - 2 % [facility] RPR Non-Reactive Non Reactive [facility] Hepatitis B Virus Surface Antigen Nonreactive Nonreactive [facility] ABO Rh B POS SEE BELOW [facility] Comment: Weak D testing is not performed at [facility] Antibody Screen NEG [facility] Rubella Antibody 7.8 SEE BELOW IU/ml [facility] Comment: =>10.0 Positive-Immune 5.0-9.9 Suggest Repeat Testing <5.0 Negative-Nonimmune Granulocytes Absolute 6.72 2.00 - 7.00 x1000/cmm [facility] Lymphocytes Absolute 2.25 0.80 - 4.00 x1000/cmm [facility] Monocytes Absolute 0.95 0.00 - 1.20 x1000/cmm [facility] Eosinophils Absolute 0.14 0.00 - 0.50 x1000/cmm [facility] Basophils Absolute 0.07 0.00 - 0.20 x1000/cmm [facility] BLOOD SPECIMEN / Unknown 10/06/2009 11:30 AM CURB MACHINE OPERATOR 10/06/2009 11:41 AM CURB MACHINE OPERATOR Stephen Rodarte MD LAB - CHEMISTRY ORDERABLES [facility] [address] [place] [address] * (ABNORMAL) HEMOGLOBIN A1C - POINT OF CARE (IP) (09/29/2009 10:06 AM CURB MACHINE OPERATOR) Hemoglobin A1c POCT 11(A) 3.4 - 6.1 % [facility] POCT TEST[facility] QC Verified Yes [facility] POC T TESTING Blood specimen (specimen) BLOOD SPECIMEN / Unknown 09/29/2009 10:06 AM CURB MACHINE OPERATOR Sidney Vicente MD LAB - POINT OF C ARE ORDERABLES Performing Organization Address City/[facility]/ZIP Co de Phone Number [facility] [place] [address] * HCG URINE QUALITATIVE - POCT (IP) [facility] (08/26/1998 12:00 AM CURB MACHINE OPERATOR) Test Urine neg [facility] Urine specimen (specimen) 08/26/1998 Amanda Carroll MD LAB - POIN T OF CARE ORDERABLES [facility]
--- OUTSIDE RECORDS SUMMARY | 2024-10-16 21:47 | XMS_ITS | Encounter Summary ---
Author Organization [facility] Address [facility] [place] [address] Care Team Providers Care Glue Sprayer Name Role Phone Clinic, [facility] Ob/Med Primary Care Provider [phone] Sidney Vicente MD Primary Care Provider + [facility], [facility] Primary Care Provider Sidney Vicente MD Primary Care Provider + [facility], [facility] Primary Care Provider [phone] Sidney Vicente MD Primary Care Provider + Sharri Alonso MD Primary Care Provider Clinic, [facility] Primary Care Provider [phone] [facility], [facility] Primary Care Provider [phone] Encounter Details Date Type Department Care Team (Late st Contact Info) Description 05/03/2010 Telephone [facility] [address] [place] [address] Liz Ramey MD [address] [address] Social History Tobacco Use Types [...] on filedocumented in this encounter Care Teams Glue Sprayer Relationship Specialty Start Date End Date [facility], [facility] [address] [place] [address] PCP - General 04/17/10 05/13/10 Sidney Vicente MD [address] [place], [place] [address] PCP - General 05/14/10 05/15/10 [facility] [address] [place] [address] PCP - General 05/16/10 05/16/10 Sidney Vicente MD [address], [address] [place], [place] [address] PCP - General 05/17/10 05/17/10 [facility], [facility] [address] [place] [address] PCP - General 05/18/10 06/13/10 Sidney Vicente MD [address], [address] [place] [address] PCP - General 06/14/10 09/21/10 Sharri Alonso MD [address] [id number] PCP - General 09/22/10 11/09/10 [facility], [facility] [address] [place] [address] PCP - General 11/10/10 11/13/10 [facility], [facility] [address] [place] [address] PCP - General 11/14/10 11/15/10 documented as of this encounter
--- OUTSIDE RECORDS SUMMARY | 2024-10-16 21:48 | XMS_ITS | Clinical Summary ---
Author Organization [facility] Facility Address [address] [address] Care Team Providers Care Territory Manager General Sales Name Role Phone Janak Adams MD Primary Care Provider [phone] Social History Tobacco Use Types Packs/Day Years [...] Influenza Vaccine (#1) 2024 06/24/2018, 2015 Insurance [employer] Care Teams Territory Manager General Sales Relationship Specialty Start Date End Date Janak Adams MD [address] [place] [address] PCP - General Endocrinology 02/25/24
--- OUTSIDE RECORDS SUMMARY | 2024-10-16 21:48 | XMS_ITS | Continuity of Care Document ---
Author Organization [facility] [place] [address] [place] [address] [place] [address] Phone Care Team Providers Care Informatics Consultant Name Role Phone Kris Faith MD Unavailable Unavailable Procedures Procedure Date Eye Exam & Treatment Advance Directives Directive Yes / No Effective Date File Name No Information Encounters Encounter Description Practice Location Reason(s) For Visit Diagnoses Date Provider Providers Copied on Encounter [facility], [address], [place], [place], [address], [place] tel:[phone] SEC Zeus Waters No Information [address] [facility], [place], [place], [address], [place]. tel:[phone] Family History Family Member Type Diagnosis Age At Onset No Information Payers Payer name Insurance type Covered constitution party ID Authoriza ticullen(s) [facility] CI [id number] Social History Type Description Quantity Date Captured [...]
--- OUTSIDE RECORDS SUMMARY | 2024-10-16 21:48 | XMS_ITS | Clinical Summary ---
Author Organization [facility] Address [address], [address] [address] Phone Care Team Providers Care Cotton Candy Maker Name Role Phone Unavailable Primary Care Provider [...] Comments Blood Pressure 118/74 07/01/2017 1:18 PM GENERAL STORE MANAGER Pulse 77 07/01/2017 1:18 PM GENERAL STORE MANAGER Temperature 36.2 C (97.2 F) 07/11/2016 9:24 AM GENERAL STORE MANAGER Respiratory Rate 18 07/01/2017 1:18 PM GENERAL STORE MANAGER Oxygen Saturation 97% 07/01/2017 1:18 PM GENERAL STORE MANAGER Inhaled Oxygen Concentration - - Weight 70.3 kg (155 lb) 07/01/2017 1:18 PM GENERAL STORE MANAGER Height 162.6 cm (5' 4 ) 07/01/2017 1:18 PM GENERAL STORE MANAGER Body Mass Index 26.61 07/01/2017 1:18 PM GENERAL STORE MANAGER Plan of Treatment Health Maintenance Due Date [...]
--- OUTSIDE RECORDS SUMMARY | 2024-10-16 21:48 | XMS_ITS | Continuity of Care Document ---
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 [facility] [place], [address], [place]. [facility], [address], [place], [place], [address], tel:[phone] [facility] ACUTE URI NOS 5[address] 8 Conversion Doctor. [address] [place] [address], [address], . [facility], [address], [place], [place], [address], tel:[phone] [facility] CARBUNCLE OF TRUNK [address]. [address] [facility], 4th Floor, [place], [place], [address], [place]. tel:[phone] [facility], [address], [place], [place], [address], [place] tel:[phone] [facility] HAIR DISEASES NEC 4[address], [place], [place], [address], [place]. tel:[phone] [facility], [address], [place], [place], [address], [place] tel:[phone] [facility] DMI WO CMP NT ST UNCNTRL 4-[address] 7 Conversion Doctor. [address] [place] [address], [address], [place]. [facility], [address], [place], [place], [address], tel:[phone] [facility] URIN TRACT INFECTION NOS 8-[address], [place], [place], [address], . tel:[phone] [employer] [facility], [address], [place], [place], [address], tel:[phone] [facility] OTALGIA NOS [address]. [address], [address], [place], [place], [address], . tel:[phone] [employer] [facility], [address], [place], [place], [address], tel:[phone] [facility] MGRN WO AURA WO NTRC MGR Nov-2 2-[address]. [address], [address], [place], [place], [address], . tel:[phone] [employer] [facility], [address], [place], [place], [address], tel:[phone] [facility] No Information [address], [place], [place], [address], [place]. tel:[phone] [employer] [facility], [address], [place], [place], [address], [place] tel:[phone] [facility] PREG STATE, INCIDENTAL [address] [facility]. [address] [facility], [facility] [address], [place], [place], [address], . tel:[phone] [employer] [facility], [address], [place], [place], [address], [place] tel:[phone] [facility] ALLERGIC RHINITIS NOS 2 [address]. [address], [address], [place], [place], [address], . tel:[phone] Family History Family Member Type Diagnosis Age At Onset No Information Immunizations Vaccine Date Status Comments 48848 - TD administered Source: Source Unspecified 85139 - Influenza administered Source: So urce Unspecified 11318 - Influenza administered Source: So urce Unspecified 13597 - Influenza administered Source: So urce Unspecified 69015 - Influenza administered Source: So urce Unspecified 77329 - Hepatitis_B administered Source: Source Unspecified 00005 - Hepatitis_B administered Source: Source Unspecified 34684 - Hepatitis_B administered Source: Source Unspecified 71766 - DTaP_DTP_DT_PEDS administered Kiana rce: Source Unspecified 64017 - Polio_OPV_IPV administered Source : Source Unspecified 47751 - MMR administered Source: Source Unspecified 12785 - Polio_OPV_IPV administered Source : Source Unspecified 02390 - DTaP_DTP_DT_PEDS administered Kiana rce: Source Unspecified 78442 - Hib administered Source: Source Unspecified 20472 - DTaP_DTP_DT_PEDS administered Kiana rce: Source Unspecified 88076 - MMR administered Source: Source Unspecified 96517 - DTaP_DTP_DT_PEDS administered Kiana rce: Source Unspecified 12456 - Polio_OPV_IPV administered Source : Source Unspecified 23179 - DTaP_DTP_DT_PEDS administered Kiana rce: Source Unspecified 59488 - Polio_OPV_IPV administered Source : Source Unspecified [...]
--- OUTSIDE RECORDS SUMMARY | 2024-10-16 21:48 | XMS_ITS | Clinical Summary ---
Author Organization [facility] Address [address] [place] [address] 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,non-owned Affiliates and Associated Physician Practices is amultiple site organization consisting of ambulatory clinics and hospital sitesin [place], [place], [place] and [place]. This disclosure is being madepursuant to the Care Everywhere program and may not contain all information available regarding this patient. Last updated 18.[employer] Allergies No known active allergies Medications * [...] complication 10/06/2009 Overview (10/06/2009): 2 prior at [facility], pt wants repeat. Both LTCS. Need for ipcyndq-wbget-fccvwnj (MMR) vaccine 06/2010 Overview (01/17/2015): MMR after [...] (11/10/2010 4:35 PM CDT) HIV-1/HIV-2 Nonreactive Nonreactive [facility] BLOOD SPECIMEN / Unknown 11/10/2010 4:35 PM CDT 11/10/2010 4:45 PM CDT Ladonna Vasques MD LAB - CHEMIS TRY ORDERABLES Performing Organization Address City/[facility]/ZIP Co de Phone Number [facility] [address] [place] [address] * HEPATITIS C ANTIBODY (11/10/2010 4:35 PM CDT) Hepatitis C Antibody Screen Nonreactive Nonreactive [facility] BLOOD SPECIMEN / Unknown 11/10/2010 4:35 PM CDT 11/10/2010 4:45 PM CDT Ladonna Vasques MD LAB - CHEMIS TRY ORDERABLES Performing Organization Address City/[facility] Co de Phone Number [facility] [address] [place] [address] * CYTOLOGY CERVICAL/VAG SCREEN THIN PREP (11/10/2010 4:30 PM CDT) Comment Thin Prep [facility] Pap Smear Report See Scanned Report [facility] ENTIRE ENDOCERVIX / Unknown 11/10/2010 4:30 PM CDT 11/10/2010 4:45 PM CDT Narrative Resulting Agency Comment Performed By [facility]() [address] [place], [place] [address] Ladonna Vasques MD LAB - PATHOL OGY/CYTOLOGY ORDERABLES Performing Organization Address City/[facility]/ZIP Co de Phone Number [facility] [address] [place] [address] from Last 3 Months or Most Recently [...]
[2024-10-16 21:57] VITALS: BP 180/100; PULSE 137; RESP 18; O2SAT 99
[2024-10-16 22:06] VITALS: BP 147/83; PULSE 134; RESP 20; TEMP 36.7; O2SAT 100
[2024-10-16 22:12] LABS: Glucose Point of Care 255 mg/dl (65-105)
[2024-10-16 23:36] LABS: Glucose Point of Care 303 mg/dl (65-105)
--- NOTE | 2024-10-16 23:36 | PC.NURSE ---
Patient comes to desk to state I think I am going back into DKA. Patients BG rechecked. PA notified of patient BG and that patient felt she was going back into DKA. PA stated she will come see patient in triage.
--- NOTE | 2024-10-16 23:41 | ED_ITS ---
HPI - Abdominal Pain General Chief Complaint: Abdominal Pain <Jacquelyn Chatterjee PA-C - Last Filed: 10/18/24 14:10> Stated Complaint: abdominal pain <Jacquelyn Chatterjee PA-C - Last Filed: 10/18/24 14:10> Time Seen by Provider: 10/16/24 23:41 <Jacquelyn Chatterjee PA-C - Last Filed: 10/18/24 14:10> Focused HPI: This is a 39 year old female that presents to the ER for abdominal pain, nausea, and vomiting ongoing since this morning. Reports recent admission for DKA. GENERAL: Actively vomiting, ill-appearing HEAD: Normocephalic, atraumatic. CHEST: Clear to auscultation. ?No respiratory distress. HEART: Tachycardic, regular rhythm.? NEURO: ?Alert and oriented x3. Patient screened in triage and initial orders placed.? ?Additional care and disposition to be based upon?diagnostic testing and treatment. <Jacquelyn Chatterjee PA-C - Last Filed: 10/18/24 14:10> Focused HPI: This is a 39 year old female that presents to the ER for abdominal pain, nausea, and vomiting ongoing since this morning. Reports recent admission for DKA. GENERAL: Actively vomiting, ill-appearing HEAD: Normocephalic, atraumatic. CHEST: Clear to auscultation. ?No respiratory distress. HEART: Tachycardic, regular rhythm.? NEURO: ?Alert and oriented x3. Patient screened in triage and initial orders placed.? ?Additional care and disposition to be based upon?diagnostic testing and treatment. Agree with triage assessment. Patient states that her symptoms worsened today. Admits that she is an insulin-dependent diabetic and has been using her insulin as prescribed, however, despite this her sugars have been running higher than usual, in the 200 to 300. <George Gonsalez MD - Last Filed: 10/17/24 03:05> Related Data Home Medications: Home Medications ?Medication ?Instructions ?Recorded ?Confirmed ?Last Taken ?Type mecobalamin (vitamin B12) 500 mcg 500 mcg PO DAILY 07/15/24 10/17/24 Unknown History chewable tablet multivitamin 1 tablet PO DAILY 07/15/24 10/17/24 Unknown History melatonin 10 mg tablet 10 mg PO HS PRN Insomnia 08/02/24 10/17/24 Unknown History metoclopramide HCl 10 mg tablet 10 mg PO Q6H PRN nausea and 10/02/24 10/17/24 Unknown History vomiting <Jacquelyn Chatterjee PA-C - Last Filed: 10/18/24 14:10> Allergies/Adverse Reactions: Allergies Allergy/AdvReac Type Severity Reaction Status Date / Time No Known Allergies Allergy Verified 10/16/24 22:06 <Jacquelyn Chatterjee PA-C - Last Filed: 10/18/24 14:10> Review of Systems 2 Review of Systems: All systems are reviewed and are negative unless stated otherwise in the HPI. <George Gonsalez MD - Last Filed: 10/17/24 03:05> PMFSH Past Medical History Medical History: Medical History GERD with esophagitis Cannabinoid hyperemesis syndrome Bipolar disorder Esophageal varices 04/2024 Depression Migraine Diabetic neuropathy Hyperlipidemia Gastroparesis Elevated liver enzymes Type 1 diabetes mellitus Diagnosed at the age of 7. Hemoglobin A1c was 10.8% on 08/09/2020. DKA (diabetic ketoacidoses) multiple <Jacquelyn Chatterjee PA-C - Last Filed: 10/18/24 14:10> Surgical History Surgical History: Surgical History History of gynecological procedure 04/29/2020- mirena iud insertion - 10/23/2021 mirena iud removal -nm History of 3 sections <Jacquelyn Chatterjee PA-C - Last Filed: 10/18/24 14:10> Family History Family History: Family History Grandparent Breast cancer Father Diabetes mellitus Alcoholism Mother Alcoholism Depression Other Hypertension <Jacquelyn Chatterjee PA-C - Last Filed: 10/18/24 14:10> Social History Social History: Social History Social History: Code status: Full code Surrogate decision maker: Gomez Henry (father) Smoking packs per day: 1 Smoking cigarettes per day: 20.0 Years smoked: 25 Smoking pack-years: 25.00 Smoking status: Current every day smoker Second hand tobacco smoke exposure: Yes Alcohol intake: former Drinks per week: 20 Alcohol use details: occasional Substance use: current Substance use type: marijuana Last use: 10/15/24 Do You Feel Safe in your Home?: Yes Lack of Transportation: No Lack of Food: Never True Current Housing: I Have Housing Concerned About Future Housing: No Difficulty Paying Gas/Electric Bills: No Difficulty Paying for Meds: No Currently Unemployed: YES Education: Decline to Answer Difficulty w/ Childcare or Family Care: No Living arrangements: with family Occupation/Education: unemployed Additional occupation/education comments: not currently working Gender identity (if verbalized by the patient): Female Sexual Orientation (if Verbalized by the Patient): Straight or Heterosexual Spiritual care concerns: No <Jacquelyn Chatterjee PA-C - Last Filed: 10/18/24 14:10> Exam 2 Narrative: General: Alert, awake, afebrile, in no acute distress. HEENT: PERRL, no rhinorrhea, no post nasal drip, oropharynx clear. Neck: Trachea midline, no JVD, no lymphadenopathy. Cardiovascular: Tachycardic with regular rhythm, no murmurs, rubs or gallops, no peripheral edema. Respiratory: Clear to auscultation bilaterally, no tachypnea, no wheezing, no rhonchi, no rubs, no respiratory distress. Abdomen: Soft, nontender, nondistended, no rebound, no guarding, no peritoneal signs. Musculoskeletal: No joint swelling or deformity, normal muscle tone. Skin: No rashes or petechia, no signs of infection. Psychiatric: Alert and oriented, normal behavior and judgment for situation. Neurological: Alert and oriented to person, place, and time. Follows all commands. No focal deficits, speech is clear and fluent. <George Gonsalez MD - Last Filed: 10/17/24 03:05> Course Vital Signs Vital signs: Vital Signs Pulse Rate 137 H 10/16/24 21:57 Respiratory Rate 18 10/16/24 21:57 Blood Pressure 180/100 H 10/16/24 21:57 Pulse Oximetry 99 10/16/24 21:57 Temperature 98.1 F 10/18/24 12:00 Pulse Rate 96 10/18/24 12:56 Respiratory Rate 18 10/18/24 12:56 Blood Pressure 155/91 H 10/18/24 12:56 Pulse Oximetry 100 10/18/24 12:56 Oxygen Delivery Room Air 10/18/24 04:22 Fraction of Inspired Oxygen 10/17/24 20:44 <Jacquelyn Chatterjee PA-C - Last Filed: 10/18/24 14:10> Vital Signs Pulse Rate 137 H 10/16/24 21:57 Respiratory Rate 18 10/16/24 21:57 Blood Pressure 180/100 H 10/16/24 21:57 Pulse Oximetry 99 10/16/24 21:57 Temperature 98.1 F 10/18/24 12:00 Pulse Rate 96 10/18/24 12:56 Respiratory Rate 18 10/18/24 12:56 Blood Pressure 155/91 H 10/18/24 12:56 Pulse Oximetry 100 10/18/24 12:56 Oxygen Delivery Room Air 10/18/24 04:22 Fraction of Inspired Oxygen 10/17/24 20:44 <George Gonsalez MD - Last Filed: 10/17/24 03:05> MDM - Abdominal Pain MDM Narrative Medical decision making narrative: The patient was evaluated by myself in the emergency department. History is obtained from patient who is an independent historian and physical exam was performed. External medical records were reviewed at this time. IV was established and pertinent tests were ordered. Patient was administered 2 L IV fluid bolus with normal saline and 4 mg IV Zofran for nausea/vomiting. EKG was obtained which revealed sinus tachycardia rate of 148 beats per minute. No ST changes, T wave inversions or evidence of acute ischemia. EKG was independently interpreted by me and is currently pending official cardiology read. Laboratory results obtained revealing a pH of 7.534, CO2 18.5, PO2 90.7, bicarb 15.3, potassium of 4.3, anion gap of 22 with a serum bicarb of 17, serum glucose 320, magnesium 1.2 and beta hydroxybutyrate 4.31. Urinalysis pending. At this time, patient was started on IV magnesium 4 g. Patient was also started on an insulin drip. Maintenance fluids will be started after 2 L IV fluid bolus with D5 half-normal saline with 20 KCL for BG < 250. Imaging studies obtained included CXR which was independently interpreted by me revealing no acute cardiopulmonary process, which is pending final radiology interpretation. Differential diagnosis considerations include dehydration, electrolyte derangements, DKA, infectious process such as pneumonia/UTI. Comorbidities impacting this visit include history of insulin-dependent diabetes mellitus and previous hospitalizations for DKA. I have evaluated and discussed social determinants of health with the patient that could potentially impact subsequent diagnosis and treatment plans. On repeat assessment of the patient, reevaluation revealed that the patient is doing well and is in no acute distress. Patient symptoms have improved since she arrived to our emergency department. Repeat vital signs were all reviewed and noted to be stable. Differential diagnosis and treatment plan were discussed with the patient at bedside. Patient agrees with discussion and after shared medical decision making agrees with admission. All questions were answered to the patient's satisfaction. Case was discussed with the on-call feller buncher operator Dr. Paiz at [phone] who accepted ICU consultation. Case was discussed with the on-call hospitalist Dr. Woods at [phone] who accepted ICU admission. Critical care time of 77 minutes, exclusive of separately performed procedures, necessary for treating or preventing eminent or life-threatening deterioration of patient's condition of DKA requiring IV insulin therapy, focused on patient care provided personally by me and time spent during initial evaluation, physical examination, ordering and performing treatments and interventions, ordering and reviewing laboratory studies, ordering and reviewing radiographic studies, re-evaluation of the patient's condition, evaluation of the patient's response to treatment, and discussion of patient case with multiple consultants. <George Gonsalez MD - Last Filed: 10/17/24 03:05> Lab Data Result diagrams: 10/18/24 03:39 10/18/24 07:36 <Jacquelyn Chatterjee PA-C - Last Filed: 10/18/24 14:10> Labs: Lab Results 10/16/24 10/16/24 10/16/24 Range/Units 22:10 23:32 23:52 WBC 8.7 (4.5-10.0) K/mm3 RBC 4.45 (4.2-5.4) M/mm3 Hgb 11.3 L (12.0-15.0) g/dL Hct 35.5 L (37.0-47.0) % MCV 79.8 L (80-100) fl MCH 25.4 L (26-34) pg MCHC 31.8 L (32-36) g/dl RDW 15.5 H (11.5-14.5) % Plt Count 362 (150-375) k/mm3 MPV 11.1 H (7.4-10.4) fl Immature Gran % (Auto) 0.2 (0-0.5) % Neut % (Auto) 85.0 H (45.5-73.1) % Lymph % (Auto) 10.8 L (18.3-44.2) % [place] % (Auto) 3.6 (2.6-8.5) % Eos % (Auto) 0.2 (0-4.4) % Baso % (Auto) 0.2 (0.2-1.2) % Lymph # (Auto) 0.94 (0.9-3.2) K/mm3 [place] # (Auto) 0.3 (0.1-0.6) K/mm3 Eos # (Auto) 0.0 (0-0.3) K/mm3 Baso # (Auto) 0.0 (0.0-0.1) K/mm3 Abs Immat Gran (auto) 0.02 (0.00-0.031) K/mm3 Absolute Neuts (auto) 7.4 H (1.3-6.7) K/mm3 Absolute Nucleated RBC 0.000 (0.0-0.012) K/mm3 Nucleated RBC % 0.0 (0.0-0.2) % Methemoglobin (0-1.5) %THb Sodium 136 L (137-145) mmol/L Potassium 4.3 (3.4-5.0) mmol/L Chloride 97 L (98-107) mmol/L Carbon Dioxide 17 L (22-30) mmol/L Anion Gap 22 H (4-12) mmol/L BUN 15 (7-17) mg/dL Creatinine 0.52 L (0.7-1.0) mg/dL Estim Creat Clear Calc 107 ml/min Estimated GFR > 60 (59 - ) Glucose 328 H (65-110) mg/dL POC Capillary Glucose 255 H 303 H (65-105) mg/dl Calcium 10.7 H (8.4-10.2) mg/dL Phosphorus 4.4 (2.5-4.5) mg/dL Magnesium 1.2 L (1.6-2.3) mg/dL Total Bilirubin 1.2 (0.2-1.3) mg/dL AST 23 (14-36) U/L ALT 23 (6-35) U/L Alkaline Phosphatase 80 (38-126) U/L Total Protein 8.0 (6.3-8.2) g/dL Albumin 4.2 (3.5-5.1) g/dL Beta-Hydroxybutyrate/Acetoacetate 4.31 H (0.02-0.27) mmol/L 10/17/24 Range/Units 00:40 WBC (4.5-10.0) K/mm3 RBC (4.2-5.4) M/mm3 Hgb (12.0-15.0) g/dL Hct (37.0-47.0) % MCV (80-100) fl MCH (26-34) pg MCHC (32-36) g/dl RDW (11.5-14.5) % Plt Count (150-375) k/mm3 MPV (7.4-10.4) fl Immature Gran % (Auto) (0-0.5) % Neut % (Auto) (45.5-73.1) % Lymph % (Auto) (18.3-44.2) % [place] % (Auto) (2.6-8.5) % Eos % (Auto) (0-4.4) % Baso % (Auto) (0.2-1.2) % Lymph # (Auto) (0.9-3.2) K/mm3 [place] # (Auto) (0.1-0.6) K/mm3 Eos # (Auto) (0-0.3) K/mm3 Baso # (Auto) (0.0-0.1) K/mm3 Abs Immat Gran (auto) (0.00-0.031) K/mm3 Absolute Neuts (auto) (1.3-6.7) K/mm3 Absolute Nucleated RBC (0.0-0.012) K/mm3 Nucleated RBC % (0.0-0.2) % Methemoglobin 0.3 (0-1.5) %THb Sodium (137-145) mmol/L Potassium (3.4-5.0) mmol/L Chloride (98-107) mmol/L Carbon Dioxide (22-30) mmol/L Anion Gap (4-12) mmol/L BUN (7-17) mg/dL Creatinine (0.7-1.0) mg/dL Estim Creat Clear Calc ml/min Estimated GFR (59 - ) Glucose (65-110) mg/dL POC Capillary Glucose (65-105) mg/dl Calcium (8.4-10.2) mg/dL Phosphorus (2.5-4.5) mg/dL Magnesium (1.6-2.3) mg/dL Total Bilirubin (0.2-1.3) mg/dL AST (14-36) U/L ALT (6-35) U/L Alkaline Phosphatase (38-126) U/L Total Protein (6.3-8.2) g/dL Albumin (3.5-5.1) g/dL Beta-Hydroxybutyrate/Acetoacetate (0.02-0.27) mmol/L <Jacquelyn Chatterjee PA-C - Last Filed: 10/18/24 14:10> Lab Results 10/16/24 10/16/24 10/16/24 Range/Units 22:10 23:32 23:52 WBC 8.7 (4.5-10.0) K/mm3 RBC 4.45 (4.2-5.4) M/mm3 Hgb 11.3 L (12.0-15.0) g/dL Hct 35.5 L (37.0-47.0) % MCV 79.8 L (80-100) fl MCH 25.4 L (26-34) pg MCHC 31.8 L (32-36) g/dl RDW 15.5 H (11.5-14.5) % Plt Count 362 (150-375) k/mm3 MPV 11.1 H (7.4-10.4) fl Immature Gran % (Auto) 0.2 (0-0.5) % Neut % (Auto) 85.0 H (45.5-73.1) % Lymph % (Auto) 10.8 L (18.3-44.2) % [place] % (Auto) 3.6 (2.6-8.5) % Eos % (Auto) 0.2 (0-4.4) % Baso % (Auto) 0.2 (0.2-1.2) % Lymph # (Auto) 0.94 (0.9-3.2) K/mm3 [place] # (Auto) 0.3 (0.1-0.6) K/mm3 Eos # (Auto) 0.0 (0-0.3) K/mm3 Baso # (Auto) 0.0 (0.0-0.1) K/mm3 Abs Immat Gran (auto) 0.02 (0.00-0.031) K/mm3 Absolute Neuts (auto) 7.4 H (1.3-6.7) K/mm3 Absolute Nucleated RBC 0.000 (0.0-0.012) K/mm3 Nucleated RBC % 0.0 (0.0-0.2) % Methemoglobin (0-1.5) %THb Sodium 136 L (137-145) mmol/L Potassium 4.3 (3.4-5.0) mmol/L Chloride 97 L (98-107) mmol/L Carbon Dioxide 17 L (22-30) mmol/L Anion Gap 22 H (4-12) mmol/L BUN 15 (7-17) mg/dL Creatinine 0.52 L (0.7-1.0) mg/dL Estim Creat Clear Calc 107 ml/min Estimated GFR > 60 (59 - ) Glucose 328 H (65-110) mg/dL POC Capillary Glucose 255 H 303 H (65-105) mg/dl Calcium 10.7 H (8.4-10.2) mg/dL Phosphorus 4.4 (2.5-4.5) mg/dL Magnesium 1.2 L (1.6-2.3) mg/dL Total Bilirubin 1.2 (0.2-1.3) mg/dL AST 23 (14-36) U/L ALT 23 (6-35) U/L Alkaline Phosphatase 80 (38-126) U/L Total Protein 8.0 (6.3-8.2) g/dL Albumin 4.2 (3.5-5.1) g/dL Beta-Hydroxybutyrate/Acetoacetate 4.31 H (0.02-0.27) mmol/L 10/17/24 Range/Units 00:40 WBC (4.5-10.0) K/mm3 RBC (4.2-5.4) M/mm3 Hgb (12.0-15.0) g/dL Hct (37.0-47.0) % MCV (80-100) fl MCH (26-34) pg MCHC (32-36) g/dl RDW (11.5-14.5) % Plt Count (150-375) k/mm3 MPV (7.4-10.4) fl Immature Gran % (Auto) (0-0.5) % Neut % (Auto) (45.5-73.1) % Lymph % (Auto) (18.3-44.2) % [place] % (Auto) (2.6-8.5) % Eos % (Auto) (0-4.4) % Baso % (Auto) (0.2-1.2) % Lymph # (Auto) (0.9-3.2) K/mm3 [place] # (Auto) (0.1-0.6) K/mm3 Eos # (Auto) (0-0.3) K/mm3 Baso # (Auto) (0.0-0.1) K/mm3 Abs Immat Gran (auto) (0.00-0.031) K/mm3 Absolute Neuts (auto) (1.3-6.7) K/mm3 Absolute Nucleated RBC (0.0-0.012) K/mm3 Nucleated RBC % (0.0-0.2) % Methemoglobin 0.3 (0-1.5) %THb Sodium (137-145) mmol/L Potassium (3.4-5.0) mmol/L Chloride (98-107) mmol/L Carbon Dioxide (22-30) mmol/L Anion Gap (4-12) mmol/L BUN (7-17) mg/dL Creatinine (0.7-1.0) mg/dL Estim Creat Clear Calc ml/min Estimated GFR (59 - ) Glucose (65-110) mg/dL POC Capillary Glucose (65-105) mg/dl Calcium (8.4-10.2) mg/dL Phosphorus (2.5-4.5) mg/dL Magnesium (1.6-2.3) mg/dL Total Bilirubin (0.2-1.3) mg/dL AST (14-36) U/L ALT (6-35) U/L Alkaline Phosphatase (38-126) U/L Total Protein (6.3-8.2) g/dL Albumin (3.5-5.1) g/dL Beta-Hydroxybutyrate/Acetoacetate (0.02-0.27) mmol/L <George Gonsalez MD - Last Filed: 10/17/24 03:05> ABG Data ABG results: 10/17/24 00:40 Puncture Site Left brachial ABG pH 7.534 H* ABG pCO2 18.5 L* ABG pO2 90.7 ABG PO2/FiO2 Ratio 4.32 ABG HCO3 15.3 L ABG O2 Saturation 97.9 ABG O2 Content 14.3 L ABG Base Excess -5.5 A-a Gradient 36.9 Oxyhemoglobin 95.8 Carboxyhemoglobin 1.4 Reduced Hemoglobin 2.5 Total Hemoglobin 10.5 L O2 Delivery Device Room air O2 Liters/Min 0.0 FiO2 21 <Jacquelyn Chatterjee PA-C - Last Filed: 10/18/24 14:10> 10/17/24 00:40 Puncture Site Left brachial ABG pH 7.534 H* ABG pCO2 18.5 L* ABG pO2 90.7 ABG PO2/FiO2 Ratio 4.32 ABG HCO3 15.3 L ABG O2 Saturation 97.9 ABG O2 Content 14.3 L ABG Base Excess -5.5 A-a Gradient 36.9 Oxyhemoglobin 95.8 Carboxyhemoglobin 1.4 Reduced Hemoglobin 2.5 Total Hemoglobin 10.5 L O2 Delivery Device Room air O2 Liters/Min 0.0 FiO2 21 <George Gonsalez MD - Last Filed: 10/17/24 03:05> Imaging Data Radiologist's impression: ITS Impressions Chest X-Ray 10/17/24 06:53 IMPRESSION: 1. Normal chest radiograph. Abdomen/Pelvis CT 10/17/24 12:06 IMPRESSION: 1. No acute intra-abdominal/pelvic process. 2. Small sliding-type hiatal hernia. Abdomen X-Ray 10/17/24 14:59 IMPRESSION: 1. Nasogastric tube tip in the stomach. <Jacquelyn Chatterjee PA-C - Last Filed: 10/18/24 14:10> ITS Impressions Chest X-Ray 10/17/24 06:53 IMPRESSION: 1. Normal chest radiograph. Abdomen/Pelvis CT 10/17/24 12:06 IMPRESSION: 1. No acute intra-abdominal/pelvic process. 2. Small sliding-type hiatal hernia. Abdomen X-Ray 10/17/24 14:59 IMPRESSION: 1. Nasogastric tube tip in the stomach. <George Gonsalez MD - Last Filed: 10/17/24 03:05> Critical Care Time Critical Care Time Critical Care Time: Yes <Jacquelyn Chatterjee PA-C - Last Filed: 10/18/24 14:10> Total Critical Care Time: 77 (Please refer to [facility] for attestation.) <George Gonsalez MD - Last Filed: 10/17/24 03:05> Discharge Plan Discharge Clinical Impression: High anion gap metabolic acidosis Nausea & vomiting Qualifiers: Vomiting type: unspecified Qualified Code(s): R11.2 - Nausea with vomiting, unspecified Diabetic keto-acidosis Qualifiers: Diabetes mellitus type: type 1 Diabetes mellitus complication detail: without coma Qualified Code(s): E10.10 - Type 1 diabetes mellitus with ketoacidosis without coma <Jacquelyn Chatterjee PA-C - Last Filed: 10/18/24 14:10> Patient Disposition: Still a Patient <Jacquelyn Chatterjee PA-C - Last Filed: 10/18/24 14:10> Condition: Improved <Jacquelyn Chatterjee PA-C - Last Filed: 10/18/24 14:10>
[2024-10-17] VITALS (16 sets, daily range): BP systolic 106–175; BP diastolic 44–97; PULSE 117–155; RESP 16–28; TEMP 36.9–37.5; O2SAT 96–100; BMI 24.4
[2024-10-17] MEDS: ONDANSETRON INJ 4 MG/2 ML VIAL IV PUSH ×6 (00:07→20:08)
[2024-10-17] MEDS: SODIUM CHLORIDE 0.9% IV 1,000 ML 999 ML IV CONT ×2 (00:07)
[2024-10-17 00:08] LABS: Basophils Percent Auto 0.2 % (0.2-1.2); Eosinophils Percent Auto 0.2 % (0-4.4); Hematocrit 35.5 % (37.0-47.0); Hemoglobin 11.3 g/dL (12.0-15.0); Immature Granulocyte Absolute 0.02 K/mm3 (0.00-0.031); Immature Granulocyte Percent A 0.2 % (0-0.5); Lymphocytes Absolute Auto 0.94 K/mm3 (0.9-3.2); Lymphocytes Percent Auto 10.8 % (18.3-44.2); Mean Corpuscular HGB Conc 31.8 g/dl (32-36); Mean Corpuscular Hemoglobin 25.4 pg (26-34); Mean Corpuscular Volume 79.8 fl (80-100); Mean Platelet Volume 11.1 fl (7.4-10.4); Monocytes Absolute Auto 0.3 K/mm3 (0.1-0.6); Monocytes Percent Auto 3.6 % (2.6-8.5); Neutrophils Absolute Auto 7.4 K/mm3 (1.3-6.7); Platelet Count Result 362 k/mm3 (150-375); Red Blood Count 4.45 M/mm3 (4.2-5.4); Red Cell Distribution Width 15.5 % (11.5-14.5); White Blood Count 8.7 K/mm3 (4.5-10.0)
[2024-10-17 00:12] LABS: Alanine Aminotransferase 23 U/L (6-35); Albumin Level 4.2 g/dL (3.5-5.1); Alkaline Phosphatase 80 U/L (38-126); Anion Gap 22 mmol/L (4-12); Aspartate Amino Transferase 23 U/L (14-36); Bilirubin,Total 1.2 mg/dL (0.2-1.3); Blood Urea Nitrogen 15 mg/dL (7-17); Calcium 10.7 mg/dL (8.4-10.2); Carbon Dioxide 17 mmol/L (22-30); Chloride 97 mmol/L (98-107); Estimated CRCL calculation 107 ml/min; Estimated Glomerular Filt Rate > 60; Glucose 328 mg/dL (65-110); Magnesium 1.2 mg/dL (1.6-2.3); Phosphorus 4.4 mg/dL (2.5-4.5); Potassium 4.3 mmol/L (3.4-5.0); Sodium 136 mmol/L (137-145)
[2024-10-17 00:22] LABS: Beta-Hydroxybutyrate/Acetoacetate 4.31 mmol/L (0.02-0.27)
--- OUTSIDE RECORDS SUMMARY | 2024-10-17 00:44 | XMS_ITS | Referral Summary ---
Author Organization [facility] Address [address] [place] [address] [place] [address] Care Team Providers Care Sheet Tester Name Role Phone Unavailable Primary Care Provider Unavailabl e Source Comments [facility],non-owned Affiliates and Associated Physician Practices is amultiple site organization consisting of ambulatory clinics and hospital sitesin [place], [place], [place] and [place]. This disclosure is being madepursuant to the Care Everywhere program and may not contain all information available regarding this patient. Last updated 18.[employer] Allergies No known active allergies Medications * [...] complication 10/06/2009 Overview (10/06/2009): 2 prior at [facility], pt wants repeat. Both LTCS. Need for wlknwkw-[id number] (MMR) vaccine 06/2010 Overview (01/17/2015): MMR after [...] (11/10/2010 4:35 PM CDT) HIV-1/HIV-2 Nonreactive Nonreactive [facility] BLOOD SPECIMEN / Unknown 11/10/2010 4:35 PM CDT 11/10/2010 4:45 PM CDT Ladonna Vasques MD LAB - CHEMIS TRY ORDERABLES Performing Organization Address [facility] de Phone Number [facility] [address] [place] [id number] * HEPATITIS C ANTIBODY (11/10/2010 4:35 PM CDT) Hepatitis C Antibody Screen Nonreactive Nonreactive [facility] BLOOD SPECIMEN / Unknown 11/10/2010 4:35 PM CDT 11/10/2010 4:45 PM CDT Ladonna Vasques MD LAB - CHEMIS TRY ORDERABLES Performing Organization Address [facility] Co de Phone Number [facility] [address] [place] [address] * CYTOLOGY CERVICAL/VAG SCREEN THIN PREP (11/10/2010 4:30 PM CDT) Comment Thin Prep [facility] Pap Smear Report See Scanned Report [facility] ENTIRE ENDOCERVIX / Unknown 11/10/2010 4:30 PM CDT 11/10/2010 4:45 PM CDT Narrative Resulting Agency Comment Performed By AR[facility]ST[facility]() [address] [place], [place] [address] Ladonna Vasques MD LAB - PATHOL OGY/CYTOLOGY ORDERABLES [facility] [address] [place] [address] from Last 3 Months or Most Recently [...]
--- OUTSIDE RECORDS SUMMARY | 2024-10-17 00:44 | XMS_ITS | Encounter Summary ---
Author Organization [facility] Address [facility] [place] [address] Care Team Providers Care Television Engineer Name Role Phone Clinic, [facility] Primary Care Provider [phone] Sidney Vicente MD Primary Care Provider + [facility], [facility] Primary Care Provider [phone] Sidney Vicente MD Primary Care Provider + [facility], [facility] Primary Care Provider [phone] Sidney Viecnte MD Primary Care Provider + Sharri Alonso MD Primary Care Provider [phone] Clinic, [facility] Primary Care Provider [phone] [facility], [facility] Primary Care Provider [phone] Encounter Details Date Type Department Care Team (Late st Contact Info) Description 05/03/2010 Telephone [facility] [address] [place] [address] Liz Ramey MD [address] [address] Social History Tobacco Use Types [...] on filedocumented in this encounter Care Teams Television Engineer Relationship Specialty Start Date End Date [facility], [facility] [address] [place] [id number] PCP - General 04/17/10 05/13/10 Sidney Vicente MD [address] [place], [place] [id number] PCP - General 05/14/10 05/15/10 [facility] [address] [place] [address] PCP - General 05/16/10 05/16/10 Sidney Vicente MD [address] [place], [place] [phone] PCP - General 05/17/10 05/17/10 [facility], [facility] [address] [place] [address] PCP - General 05/18/10 06/13/10 Sidney Vicente MD [address] [place] [address] PCP - General 06/14/10 09/21/10 Sharri Alonso MD [address] [id number] PCP - General 09/22/10 11/09/10 [facility], [facility] [address] [place] [address] PCP - General 11/10/10 11/13/10 [facility], [facility] [address] [place] [address] PCP - General 11/14/10 11/15/10 documented as of this encounter
--- OUTSIDE RECORDS SUMMARY | 2024-10-17 00:44 | XMS_ITS | Continuity of Care Document ---
Author Organization [facility] Address [address] [place] [address] [place] [address] Phone Care Team Providers Care Rn Internship Name Role Phone Kris Faith MD Unavailable Unavailable Procedures Procedure Date Eye Exam & Treatment Advance Directives Directive Yes / No Effective Date File Name No Information Encounters Encounter Description Practice Location Reason(s) For Visit Diagnoses Date Provider Providers Copied on Encounter Merged with [facility], [address] [place], [place], [id number], [place] tel:[phone] SEC Zeus Waters No Information [address] [facility] [address], [place], [place], [id number], [place]. tel:[phone] Family History Family Member Type Diagnosis Age At Onset No Information Payers Payer name Insurance type Covered democrat ID Authoriza ticullen(s) [facility] CI [id number] Social History Type Description Quantity Date Captured [...]
--- OUTSIDE RECORDS SUMMARY | 2024-10-17 00:45 | XMS_ITS | Clinical Summary ---
Author Organization [facility] Address [address], [address] [address] Phone Care Team Providers Care Television Technician Name Role Phone Unavailable Primary Care Provider [...] Comments Blood Pressure 118/74 07/01/2017 1:18 PM [facility] Pulse 77 07/01/2017 1:18 PM [facility] Temperature 36.2 C (97.2 F) 07/11/2016 9:24 AM [facility] Respiratory Rate 18 07/01/2017 1:18 PM [facility] Oxygen Saturation 97% 07/01/2017 1:18 PM [facility] Inhaled Oxygen Concentration - - Weight 70.3 kg (155 lb) 07/01/2017 1:18 PM [facility] Height 162.6 cm (5' 4 ) 07/01/2017 1:18 PM [facility] Body Mass Index 26.61 07/01/2017 1:18 PM [facility] Plan of Treatment Health Maintenance Due Date [...]
--- OUTSIDE RECORDS SUMMARY | 2024-10-17 00:45 | XMS_ITS | Clinical Summary ---
Author Organization [facility] Address [address] [place] [address] [place] [address] Care Team Providers Care Grain Oilseed Or Pasture Farm Manager Name Role Phone Unavailable Primary Care Provider Unavailabl e Source Comments [facility],non-owned Affiliates and Associated Physician Practices is amultiple site organization consisting of ambulatory clinics and hospital sitesin [place], [place] and [place]. This disclosure is being madepursuant to the Care Everywhere program and may not contain all information available regarding this patient. Last updated 18.[employer] Allergies No known active allergies Medications * [...] complication 10/06/2009 Overview (10/06/2009): 2 prior at [facility], pt wants repeat. Both LTCS. Need for iwwffhk-qrphc-tarbkaf (MMR) vaccine 06/2010 Overview (01/17/2015): MMR after [...] (11/10/2010 4:35 PM CDT) HIV-1/HIV-2 Nonreactive Nonreactive [facility] BLOOD SPECIMEN / Unknown 11/10/2010 4:35 PM CDT 11/10/2010 4:45 PM CDT Ladonna Vasques MD LAB - CHEMIS TRY ORDERABLES Performing Organization Address City/[facility]/ZIP Co de Phone Number [facility] [address] [place] [phone] * HEPATITIS C ANTIBODY (11/10/2010 4:35 PM CDT) Hepatitis C Antibody Screen Nonreactive Nonreactive [facility] BLOOD SPECIMEN / Unknown 11/10/2010 4:35 PM CDT 11/10/2010 4:45 PM CDT Ladonna Vasques MD LAB - CHEMIS TRY ORDERABLES Performing Organization Address City/[facility] Co de Phone Number [facility] [address] [place] [phone] * CYTOLOGY CERVICAL/VAG SCREEN THIN PREP (11/10/2010 4:30 PM CDT) Comment Thin Prep [facility] Pap Smear Report See Scanned Report [facility] ENTIRE ENDOCERVIX / Unknown 11/10/2010 4:30 PM CDT 11/10/2010 4:45 PM CDT Narrative Resulting Agency Comment Performed By [facility]() [address] [place], [place] [address] Ladonna Vasques MD LAB - PATHOL OGY/CYTOLOGY ORDERABLES Performing Organization Address City/[facility]/ZIP Co de Phone Number [facility] [address] [place] [phone] from Last 3 Months or Most Recently [...]
--- OUTSIDE RECORDS SUMMARY | 2024-10-17 00:45 | XMS_ITS | Patient Health Summary ---
Author Organization [facility] [employer] Address [facility] [facility] [place] [address] Care Team Providers Care Motor Vehicle Licence Examiner Name Role Phone Unavailable Primary Care Provider Laurent e Note from [facility] [employer] [facility],non-owned Affiliates and Associated Physician Practices is amultiple site organization consisting of ambulatory clinics and hospital sitesin [place], [place], [place] and [place]. This disclosure is being madepursuant to the Care Everywhere program and may not contain all information available regarding this patient. Last updated 18.[facility] [employer] Allergies No known active allergies Medications * [...] antepartum condition or complication 10/06/2009 Need for qmmhefs-mmgfp-hypgtrv (MMR) vaccine 06/2010 Diabetes mellitus type 1 [...] PM CDT) RPR Non-Reacti ve Non Reactive [facility] BLOOD SPECIMEN / Unknown 11/10/2010 4:35 PM CDT 11/10/2010 4:45 PM CDT Ladonna Vasques MD LAB - CHEMIS TRY ORDERABLES Performing Organization Address City/[facility] Co de Phone Number [facility] [address] [place] [address] * HIV-1 HIV-2 ANTIBODY (11/10/2010 4:35 PM CDT) Only the most recent of2 resultswithin the time period is included. Pathologist [facility] HIV-1/HIV-2 Nonreactive Nonreactive [facility] BLOOD SPECIMEN / Unknown 11/10/2010 4:35 PM CDT 11/10/2010 4:45 PM CDT Ladonna Vasques MD LAB - CHEMIS TRY ORDERABLES Performing Organization Address City/[facility] Co de Phone Number [facility] [address] [place] [address] * HEPATITIS B SURFACE ANTIGEN (11/10/2010 4:35 PM CDT) Pathologist [facility] Hepatitis B Virus Surface Antigen Nonreactive Nonreactive [facility] BLOOD SPECIMEN / Unknown 11/10/2010 4:35 PM CDT 11/10/2010 4:45 PM CDT Ladonna Vasques MD LAB - CHEMIS TRY ORDERABLES Performing Organization Address [facility] Co de Phone Number [facility] [address] [place] [address] * HEPATITIS C ANTIBODY (11/10/2010 4:35 PM CDT) Hepatitis C Antibody Screen Nonreactive Nonreactive [facility] BLOOD SPECIMEN / Unknown 11/10/2010 4:35 PM CDT 11/10/2010 4:45 PM CDT Ladonna Vasques MD LAB - CHEMIS TRY ORDERABLES Performing Organization Address [facility] de Phone Number [facility] [address] [place] [address] * CYTOLOGY CERVICAL/VAG SCREEN THIN PREP (11/10/2010 4:30 PM CDT) Only the most recent of2 resultswithin the time period is included. Comment Thin Prep [facility] Pap Smear Report See Scanned Report [facility] ENTIRE ENDOCERVIX / Unknown 11/10/2010 4:30 PM CDT 11/10/2010 4:45 PM CDT Narrative Resulting Agency Comment Performed By [facility]() [address] [place] [id number] Ladonna Vasques MD LAB - PATHOL OGY/CYTOLOGY ORDERABLES Performing Organization Address City/[facility] Co de Phone Number [facility] [address] [place] [address] * CHLAMYDIA + GC DNA PROBE AMPLIFIED (11/10/2010 4:30 PM CDT) Only the most recent of3 resultswithin the time period is included. Chlamydia trachomatis Amplified Probe Neg [facility] GC Amplified Probe Neg [facility] Comment Amplified Probe [facility] Comment: Comments and Normal Ranges for Component DNA Probe comment Results based on detection/no detection of ribosomal RNA by amplified method. ENTIRE ENDOCERVIX / Unknown 11/10/2010 4:30 PM CDT 11/10/2010 4:46 PM CDT Narrative Resulting Agency Comment Performed By [address] [place] [address] Ladonna Vasques MD LAB - MICROB IOLOGY ORDERABLES Performing Organization Address City/[facility]/ZIP Co de Phone Number [facility] [address] [place] [address] * HCG URINE QUALITATIVE - POINT OF CARE (07/10/2010 9:18 AM PATTERNMAKER ALL AROUND) Only the most recent of2 resultswithin the time period is included. HCG Qual Urine neg Negative HC POCT TESTING QC Verified yes Yes [facility] POC T TESTING Urine specimen (specimen) URINE / Unknown 07/10/2010 9:18 AM PATTERNMAKER ALL AROUND Paige Torres MD LAB - POINT OF CARE ORDERABLES Performing Organization Address [facility] Co de Phone Number [facility] [place] [address] * IMAGING/RADIOLOGY/XRAY RESULTS ORDER (05/17/2010 2:19 PM [...] Glucose WB/POC 218(H) 70 - 110 mg/dl [facility] BLOOD SPECIMEN / Unknown 05/16/2010 12:22 PM CDT 05/16/2010 12:56 PM CDT Jordin Hartman MD LAB - POINT OF CARE ORDERABLES Performing Organization Address [facility]/ZIP Co de Phone Number [facility] [address] [place] [address] * (ABNORMAL) CBC W AUTO DIFFERENTIAL (05/14/2010 4:30 AM CDT) Only the most recent of4 resultswithin the time period is included. WBC 11.5(H) 4.0 - 10.0 K/CUMM [facility] RBC 3.93 3.80 - 5.80 M/CUMM [facility] Hemoglobin 10.8(L) 12.0 - 16.0 gm/dl [facility] Hematocrit 31.0(L) 37.0 - 47.0 % [facility] MCV 78.9(L) 80.0 - 100.0 fl [facility] MCH 27.5 26.0 - 34.0 pg [facility] MCHC 34.8 31.0 - 37.0 gm/dl [facility] Platelet Count 175 150 - 400 K/CUMM [facility] RDW 13.0 11.5 - 14.5 % [facility] Granulocytes % 74.2(DH) 50 - 70 % [facility] Lymphocytes % 14.4(DL) 20 - 40 % [facility] Monocytes % 8.9(DE) 0 - 12 % [facility] Eosinophils % 1.9 0 - 5 % [facility] Basophils % 0.2 0 - 2 % [facility] Granulocytes Absolute 8.56(H) 2.00 - 7.00 x1000/cmm [facility] Lymphocytes Absolute 1.66 0.80 - 4.00 x1000/cmm [facility] Monocytes Absolute 1.03 0.00 - 1.20 x1000/cmm [facility] Eosinophils Absolute 0.22 0.00 - 0.50 x1000/cmm [facility] Basophils Absolute 0.02 0.00 - 0.20 x1000/cmm [facility] BLOOD SPECIMEN / Unknown 05/14/2010 4:30 AM CDT 05/14/2010 5:01 AM CDT Ellen Bautista MD LAB - HEMATOLOGY OR DERABLES [facility] [address] [place] [address] * GROSS + MICRO EXAM (05/12/2010 4:00 [...] The membranes are fragmented, marginally inserted, donaldson, candelairo- bluish- tinged, and cloudy. The placental disk has a trimmed weight of 570 grams. It has an oval shape measuring approximately 21 x 16 cm across with a thickness of the parenchyma reaching up to 2 cm. The surface is covered by unremarkable, anhr-pgvaje-bmxxeo, slightly cloudy membranes. The maternal surface shows well- formed cotyledons and superficially adherent blood clot. Serial sectioning reveals an unremarkable, spongy, purple placental parenchyma. Tech Ed Teacher sections of the specimen are submitted as [...] cord -- Mild acute chorioamnionitis LS/na GM Safety Intern na Pathologist Sita Dailey MD [employer]. 05/15/2010 1332 <1> CPT code 66003 MISCELLANEOUS SAMPLES / Unknown 05/12/2010 4:00 PM [...] Panic Value(s) Read Back By DYLAN Leary [facility] CORD BLOOD SPECIMEN / Unknown 05/12/2010 4:00 PM CDT 05/12/2010 5:42 PM CDT Ellen Bautista MD LAB - BLOOD GASES O PAGE Performing Organization Address [facility] Co de Phone Number [facility] [address] [place] [address] * (ABNORMAL) BLOOD GASES CORD ARTERIAL (05/12/2010 3:45 PM CDT) pH Cord Arterial 7.141(L) 7.16 - 7.30 [facility] pO2 Cord Arterial range 12 - 20 mm Hg [facility] HCO3 Cord Arterial 29. mmol/L [facility] Base Excess Cord Arterial -2.7 -2.0 - 2.0 [facility] Panic Value(s) Read Back By [id number] [facility] CORD BLOOD SPECIMEN / Unknown 05/12/2010 3:45 PM CDT 05/12/2010 5:36 PM CDT Narrative [facility] - 05/12/2010 5:40 PM CDT rct Ellen Bautista MD LAB - BLOOD GASES O PAGE Performing Organization Address [facility] Co de Phone Number [facility] [address] [place] [address] * GLUCOSE PROTEIN KETONE URINE - POINT [...] POINT OF CARE ORDERABLES Performing Organization Address City/[facility]/ZIP Co de Phone Number [facility] [place] [address] * TYPE + SCREEN PANEL (05/12/2010 8:13 AM CDT) Only the most recent of2 resultswithin the time period is included. ABO Rh B Pos SEE BELOW [facility] Comment: Weak D testing is not performed at [facility] Antibody Screen Neg [facility] Previous History Check Done Historical blood type on record, type verification complete. [facility] BLOOD SPECIMEN / Unknown 05/12/2010 8:13 AM CDT 05/12/2010 9:27 AM CDT Ellen Bautista MD LAB - BLOOD BANK OR DERABLES Performing Organization Address [facility] Co de Phone Number [facility] [address] [place] [address] * BIOPHYSICAL PROFILE W NST (05/10/2010) Anatomical Region Laterality Modality Other Liz Ramey MD [facility] ORDERABLES * LS RATIO FLUID (05/02/2010 10:30 AM CDT) L/S Ratio 2.9 SEE BELOW [facility] Comment: Immature <=1.5 Transitional 1.6-1.9 Mature >=2.0 Color Fluid Pale Yellow [facility] Character Amnio Slightly Hazy [facility] Gestational Age 37w4d [facility] Volume Amnio 10 ml [facility] Interpretation L/S Ratio [facility] Comment: PLEASE NOTE - [...] - BODY FLUID ORDERABLES Performing Organization Address [facility] Co de Phone Number [facility] [address] [place] [address] * LUNG MATURITY (05/02/2010 10:30 AM CDT) FLM 38.5 SEE BELOW mg/g [facility] Comment: See Interpretation for Normals Color Fluid Pale Yellow [facility] Character Amnio Slightly Hazy [facility] Gestational Age 37w4d [facility] Volume Amnio 10 ml [facility] Interpretation [facility] Comment: FLM Immature ......... <= 39 mg/g Mature ......... >= 55 mg/g Results between 40 and 54 cannot be declared mature or immature and should be evaluated with caution. AMNIOTIC FLUID SPECIMEN / Unknown 05/02/2010 10:30 AM CDT 05/02/2010 11:20 AM CDT Sidney Vicente MD LAB - BODY FLUID ORDERABLES Performing Organization Address [facility] de Phone Number [facility] [address] [place] [address] * AMNIOCENTESIS W US GUIDANCE- MATURITY (05/02/2010) Anatomical Region Laterality Modality Other Hamidapablito Hernándezbradley HOYT [facility] ORDERABLES * (ABNORMAL) BASIC METABOLIC PANEL [...] eGFR by MDRD 129 >60 mL/min/1.7 3m2 [facility] Comment eGFR [facility] Comment: The eGFR does not apply to patients who are younger than 18 or older than 70. BLOOD SPECIMEN / Unknown 04/27/2010 5:33 AM CDT 04/27/2010 5:35 AM CDT Maria C Donahue MD LAB - CHEMISTRY ORDChas [facility] Performing Organization Address [facility] Co de Phone Number [facility] [address] [place] [address] * SONOGRAM - COMPLETE (04/27/2010) Only the most recent of3 resultswithin the time period is included. Anatomical Region Laterality Modality Other Sidney Vicente MD [facility] ORDERABLES * (ABNORMAL) HEMOGLOBIN A1C (04/24/2010 12:15 PM CDT) Only the most recent of4 resultswithin the time period is included. Hemoglobin A1c 7.4(H) 3.9 - 6.1 % [facility] Estimated Average Glucose 165.7 mg/dl [facility] BLOOD SPECIMEN / Unknown 04/24/2010 12:15 PM CDT 04/24/2010 2:32 PM CDT Yanira Chow DO LAB - CHEMISTRY ORDChas HUFF Performing Organization Address [facility] Co de Phone Number [facility] [address] [place] [address] * CULTURE STREP B (04/17/2010 1:20 PM CDT) Only the most recent of2 resultswithin the time period is included. Report [facility] Comment: Final - CULTURE BETA HEMOLYTIC STREP GROUP B Heavy growth If treatment is indicated, the organism can be expected to be susceptible to penicillins, cephalosporins and macrolides. Bacteremia/serious infection may require the addition of an aminoglycoside faxed to [phone] 04/19/10 MISCELLANEOUS SAMPLES / Unknown 04/17/2010 1:20 PM CDT 04/17/2010 2:36 PM CDT Narrative [facility] - 04/19/2010 8:54 AM CDT kevin 04/17 Yanira Chow DO LAB - MICROBIOLOGY O RDERABLES [facility] [address] [place] [address] * ECHO CONSULT - (03/27/2010 10:05 AM CDT) 03/27/2010 10:0 5 AM CDT Narrative [facility] - 03/27/2010 11:48 AM CDT , Echocardiogram 2D, M-mode, and Doppler Name: TARA HINKLE MR #: [id number] Study date: 03/27/2010 Age: : 1985 Gender: Female Ht: / Wt: / BSA: HR: BP: / age: TORSTEN: Maternal age: REFERRING PHYSICIAN: Sidney Vicente MD BOARD OPERATOR: Delia Jerez MD PEDIATRIC ECHO FELT HANGER: CECIL Anthony Allergies: NKA History: , due to diabetes. Procedure: The procedure was performed in the echo lab. rhythm: The rhythm was normal sinus rhythm. The HI interval was 0 msec. morphology: There was [...] and Doppler Name: TARA HINKLE MR #: [id number] Study date: 03/27/2010 Age: : 1985 Gender: Female Ht: / Wt: / BSA: HR: BP: / age: TORSTEN: Maternal age: REFERRING PHYSICIAN: Sidney Vicente MD BOARD OPERATOR: Delia Jerez MD PEDIATRIC ECHO FELT HANGER: CECIL Anthony Allergies: NKA History: , due to diabetes. Procedure: The procedure was performed in the echo lab. rhythm: The rhythm was normal sinus rhythm. The HI interval was 0 msec. morphology: There was [...] ORDERABLES Performing Organization Address City/State/[facility] Co de Phone Number [facility] [address] [place] [address] * (ABNORMAL) COMPREHENSIVE METABOLIC PANEL (02/22/2010 12:15 [...] LABORATORY Calcium 8.4 8.4 - 10.2 mg/dl [facility] Alkaline Phosphatase 55 38 - 126 U/L [facility] AST 15 8 - 39 U/L [facility] Bilirubin Total 0.5 0.2 - 1.3 mg/dl [facility] Protein Total 6.4 6.3 - 8.2 gm/dl [facility] Albumin 3.0(L) 3.9 - 5.0 gm/dl [facility] CO2 24 22 - 30 mmol/L [facility] ALT 5(L) 9 - 52 U/L [facility] eGFR by MDRD 98 >60 mL/min/1.7 3m2 [facility] Comment eGFR [facility] Comment: The eGFR does not apply to patients who are younger than 18 or older than 70. BLOOD SPECIMEN / Unknown 02/22/2010 12:15 AM CDT 02/22/2010 12:47 AM CDT Jerry Isaac MD LAB - CHEMISTRY ORDE REFUGIO Performing Organization Address City/[facility]/ZIP Co de Phone Number [facility] [address] [place] [address] * (ABNORMAL) PROTEIN URINE TIMED QUANTITATIVE (02/22/2010 12:00 AM CDT) Volume 24 Hour Urine 5140 ml [facility] Protein 24 Hour Urine 514(H) 42 - 225 mg/24hr [facility] URINE SPECIMEN COLLECTION, 24 HOURS / Unknown 02/22/2010 02/22/2010 12:47 AM CDT Ellen Villeda MD LAB - U RINE CHEMISTRY ORDERABLES [facility] [address] [place] [address] * CREATININE CLEARANCE URINE TIMED (02/22/2010 12:00 AM CDT) Creatinine 0.74 0.52 - 1.04 mg/dl [facility] Creatinine Urine 19.5 mg/dl [facility] Volume 24 Hour Urine 4631 ml/24 Hr [facility] Creatinine 24 Hour Urine 1002.3 800 - 1800 mg/24hr [facility] Creatinine Clearance 85 85 - 125 ml/min [facility] URINE SPECIMEN COLLECTION, 24 HOURS / Unknown 02/22/2010 02/22/2010 12:47 AM CDT Ellen Villeda MD LAB - U RINE CHEMISTRY ORDERABLES Performing Organization Address [facility] de Phone Number [facility] [address] [place] [address] * SONOGRAM - LIMITED (02/21/2010) Anatomical Region Laterality Modality Other Ellen Villeda MD [facility] ORD ERABLES * (ABNORMAL) URINALYSIS ROUTINE AUTO (02/20/2010 6:10 PM CDT) Source Clean Catch [facility] Color UA Pale Yellow [facility] Character UA Clear [facility] Glucose UA >=1000(AA) NEGATIVE mg/dl [facility] Bilirubin UA NEGATIVE NEGATIVE [facility] Ketone UA NEGATIVE NEGATIVE mg/dl [facility] Specific [place] UA 1.010 1.003 - 1.030 [facility] Blood UA NEGATIVE NEGATIVE [facility] pH UA 6.5 5.0 - 9.0 [facility] Protein UA NEGATIVE NEGATIVE-TR ABILIO mg/dl [facility] Urobilinogen UA 0.2 0.2 - 1.0 Edwina Units/dl [facility] Nitrite UA NEGATIVE NEGATIVE [facility] Leukocyte UA NEGATIVE NEGATIVE [facility] Reducing Substances UA >= 2.0(H) Negative gm/dl [facility] URINE SPECIMEN OBTAINED BY CLEAN CATCH PROCEDURE / Unknown 02/20/2010 6:10 PM CDT 02/20/2010 9:33 PM CDT Ellen Villeda MD LAB - U RINALYSIS ORDERABLES Performing Organization Address [facility]/ZIP Co de Phone Number [facility] [address] [place] [address] * ACETONE BLOOD QUALITATIVE (02/20/2010 6:10 PM CDT) Acetone Negative Negative [facility] BLOOD SPECIMEN / Unknown 02/20/2010 6:10 PM CDT 02/20/2010 9:14 PM CDT Ellen Villeda MD LAB - C HEMISTRY ORDERABLES [facility] [address] [place] [address] * ALPHA FETOPROTEIN BLOOD MATERNAL QUAD PANEL (12/15/2009 12:40 PM CDT) Alpha-Fetoprotein 38 ng/ml [facility] AFP MoM 1.23 [facility] HCG QUANT Serum 58069 IU/L [facility] hCG MoM 1.98 [facility] Estriol 1.45 ng/ml [facility] UE3 MoM 1.16 [facility] Dimeric Inhibin A 251 pg/ml [facility] RAMY MoM 1.77 [facility] Interpretation [facility] Comment: Comments and Normal Ranges for [...] (1 in 150) Trisomy 18 1 in [address]2009 <1 in [address] (1 in 100) Assuming the patient information listed is correct, this maternal serum screen is within normal limits. The interpretation is based on maternal age, gestational age, maternal weight, the presence or absence of insulin requiring maternal diabetes, maternal race, and number of fetuses, if known. Specimen First [facility] Maternal Weight 169 [facility] Maternal Age 23.0 [facility] Dating LNMP [facility] Gestational Age Exact 17.86 [facility] Insulin for Diabetes Yes [facility] Family History of Neural Tube Defect Unknown [facility] Maternal Race White [facility] Number of Fetuses Unknown [facility] Estimate Due Date [id number] [facility] Comment Ref Lab [facility] Comment: Comments and Normal Ranges for Component *No.of Fetuses To download an enhanced report for this test, scroll down to the Enhanced Laboratory Reports section (lower right) of the web page at/ [email or web address]. Enter the following username and password/ User Name/ iGUDd Password/ [email or web address] BLOOD SPECIMEN / Unknown 12/15/2009 12:40 PM CDT 12/15/2009 1:02 PM CDT Narrative Resulting Agency Comment Performed By [facility] [address] [employer] [address], [place] [address] Dayanna Stiles MD LAB - CHEMISTRY CRISTIANO HUFF [facility] [address] [place] [address] * (ABNORMAL) OBSTETRIC PANEL (10/06/2009 11:30 AM PATTERNMAKER ALL AROUND) WBC 10.2(H) 4.0 - 10.0 K/CUMM [facility] RBC 4.68 3.80 - 5.80 M/CUMM [facility] Hemoglobin 12.8 12.0 - 16.0 gm/dl [facility] [facility] Hematocrit 38.7 37.0 - 47.0 % [facility] MCV 82.7 80.0 - 100.0 fl [facility] MCH 27.4 26.0 - 34.0 pg [facility] MCHC 33.1 31.0 - 37.0 gm/dl [facility] RDW 13.9 11.5 - 14.5 % [facility] Platelet Count 236 150 - 400 K/CUMM [facility] Granulocytes % 66.1 50 - 70 % [facility] Lymphocytes % 22.1 20 - 40 % [facility] Monocytes % 9.3 0 - 12 % [facility] Eosinophils % 1.4 0 - 5 % [facility] Basophils % 0.7 0 - 2 % [facility] RPR Non-Reactive Non Reactive [facility] Hepatitis B Virus Surface Antigen Nonreactive Nonreactive [facility] ABO Rh B POS SEE BELOW [facility] Comment: Weak D testing is not performed at [facility] Antibody Screen NEG [facility] Rubella Antibody 7.8 SEE BELOW IU/ml [facility] Comment: =>10.0 Positive-Immune 5.0-9.9 Suggest Repeat Testing <5.0 Negative-Nonimmune Granulocytes Absolute 6.72 2.00 - 7.00 x1000/cmm [facility] Lymphocytes Absolute 2.25 0.80 - 4.00 x1000/cmm [facility] Monocytes Absolute 0.95 0.00 - 1.20 x1000/cmm [facility] Eosinophils Absolute 0.14 0.00 - 0.50 x1000/cmm [facility] Basophils Absolute 0.07 0.00 - 0.20 x1000/cmm [facility] BLOOD SPECIMEN / Unknown 10/06/2009 11:30 AM PATTERNMAKER ALL AROUND 10/06/2009 11:41 AM PATTERNMAKER ALL AROUND Stephen Rodarte MD LAB - CHEMISTRY ORDERABLES [facility] [address] [place] [address] * (ABNORMAL) HEMOGLOBIN A1C - POINT OF CARE (IP) (09/29/2009 10:06 AM PATTERNMAKER ALL AROUND) Hemoglobin A1c POCT 11(A) 3.4 - 6.1 % [facility] TEST[facility] QC Verified Yes [facility] POC T TESTING Blood specimen (specimen) BLOOD SPECIMEN / Unknown 09/29/2009 10:06 AM PATTERNMAKER ALL AROUND Sidney Vicente MD LAB - POINT OF C ARE ORDERABLES Performing Organization Address City/[facility]/ZIP Co de Phone Number [facility] [place] [address] * HCG URINE QUALITATIVE - POCT (IP) [facility] (08/26/1998 12:00 AM PATTERNMAKER ALL AROUND) Test Urine neg [facility] Urine specimen (specimen) 08/26/1998 Amanda Carroll MD LAB - POIN T OF CARE ORDERABLES [facility]
--- OUTSIDE RECORDS SUMMARY | 2024-10-17 00:45 | XMS_ITS | Clinical Summary ---
Author Organization [facility] Facility Address [address] [address] Care Team Providers Care Ladle Repairer Name Role Phone Janak Adams MD Primary Care Provider [phone] Social History Tobacco Use Types Packs/Day Years [...] Influenza Vaccine (#1) 2024 06/24/2018, 2015 Insurance [place] [employer] Care Teams Ladle Repairer Relationship Specialty Start Date End Date Janak Adams MD [address] [place] [address] PCP - General Endocrinology 02/25/24
--- OUTSIDE RECORDS SUMMARY | 2024-10-17 00:45 | XMS_ITS | Continuity of Care Document ---
Author Organization [facility] Address [address] [place] [address] Phone Care Team Providers Care C Wpf Developer Name Role Phone Conversion MD, Doctor Unavailable [...] Diagnoses Date Provider Providers Copied on Encounter [facility], [address], [place], [place], [address], tel:[phone] Conversion Department No Information 6201 1 Conversion Doctor. [facility] [place], [address], [place]. [facility], [address], [place], [place], [address], tel:[phone] [facility] ACUTE URI NOS 5200 8 Conversion Doctor. [address] [place] [address], [address], . [facility], [address], [place], [place], [address], tel:[phone] [facility] CARBUNCLE OF TRUNK 2[address] Chuy Adamson. [address] [facility], [address]th Floor, [place], [place], [address], [place]. tel:[phone] [facility], [address], [place], [place], [address], [place] tel:[phone] [facility] HAIR DISEASES NEC 4-[address], [place], [place], [address], [place]. tel:[phone] [facility], [address], [place], [place], [address], [place] tel:[phone] [facility] DMI WO CMP NT ST UNCNTRL 4-200 7 Conversion Doctor. [address] [place] [address], [address], [place]. [facility], [address], [place], [place], [address], tel:[phone] [facility] URIN TRACT INFECTION NOS 8-[address], [place], [place], [address], . tel:[phone] [facility], [address], [place], [place], [address], tel:[phone] [facility] OTALGIA NOS 2[address] 6 Michael Khan. [address], [address], [place], [place], [address], . tel:[phone] [facility], [address], [place], [place], [address], tel:[phone] [facility] MGRN WO AURA WO NTRC MGR Nov-2 2-200 5 Michael Khan. [address], [address], [place], [place], [address], . tel:[phone] [facility], [address], [place], [place], [address], tel:[phone] [facility] No Information [address], [place], [place], [address], [place]. tel:[phone] [facility], [address], [place], [place], [address], [place] tel:[phone] [facility] [place], INCIDENTAL [address] [facility]. [address] [facility], [facility] [address], [place], [place], [address], . tel:[phone] [facility], [address], [place], [place], [address], [place] tel:[phone] [facility] ALLERGIC RHINITIS NOS 2 6[address] 1 Leonarda Leonard. [address], [address], [place], [place], [address], . tel:[phone] Family History Family Member Type Diagnosis Age At Onset No Information Immunizations Vaccine Date Status Comments 19752 - TD administered Source: Source Unspecified 38862 - Influenza administered Source: So urce Unspecified 20412 - Influenza administered Source: So urce Unspecified 98818 - Influenza administered Source: So urce Unspecified 59987 - Influenza administered Source: So urce Unspecified 74646 - Hepatitis_B administered Source: Source Unspecified 95576 - Hepatitis_B administered Source: Source Unspecified 79930 - Hepatitis_B administered Source: Source Unspecified 73627 - DTaP_DTP_DT_PEDS administered Kiana rce: Source Unspecified 28159 - Polio_OPV_IPV administered Source : Source Unspecified 89604 - MMR administered Source: Source Unspecified 51867 - Polio_OPV_IPV administered Source : Source Unspecified 83402 - DTaP_DTP_DT_PEDS administered Kiana rce: Source Unspecified 57530 - Hib administered Source: Source Unspecified 30008 - DTaP_DTP_DT_PEDS administered Kiana rce: Source Unspecified 26913 - MMR administered Source: Source Unspecified 49294 - DTaP_DTP_DT_PEDS administered Kiana rce: Source Unspecified 75251 - Polio_OPV_IPV administered Source : Source Unspecified 08641 - DTaP_DTP_DT_PEDS administered Kiana rce: Source Unspecified 64774 - Polio_OPV_IPV administered Source : Source Unspecified [...]
[2024-10-17] MEDS: MAGNESIUM SULF 2 GM/WATER 50ML 2 GM/50 ML BAG IVPB ×2 (00:53→01:38)
--- NOTE | 2024-10-17 00:55 | ECG_ITS ---
Test Date: 2024-10-17 02:28:20 Measurements Intervals [place] Rate: 148 P: 70 RI: 108 QRS: 11 QRSD: 78 T: 65 QT: 278 QTc: 437 Interpretive Statements SINUS TACHYCARDIA POSSIBLE RIGHT VENTRICULAR CONDUCTION DELAY BASELINE ARTIFACT- I, III, AVR, AVL, AVF, V1-V6 ABNORMAL ECG Compared to ECG 10/02/2024 03:57:08 HEART RATE HAS INCREASED Electronically Signed On 10-17-2024 09:03:01 SERVICE TESTER by Francois Hammonds D.O.
[2024-10-17 01:11] LABS: Alveolar/Arterial O2 Gradient 36.9 mmHg; Base Excess ABG -5.5 mEq/l (+/-2.0); Carboxyhemoglobin 1.4 % THb (0-2.0); Fractional Inspired Oxygen 21 %; HCO3 ABG 15.3 mEq/l (22.0-26.0); Methemoglobin ABG 0.3 %THb (0-1.5); Oxygen Content ABG 14.3 %vol (16.0-22.0); Oxygen Saturation ABG 97.9 % (95.0-100.0); Oxyhemoglobin 95.8 % THb (90.0-100.0); PO2 ABG 90.7 mmHg (80.0-100.0); PO2 FiO2 Ratio Arterial Blood 4.32 %; Reduced Hemoglobin 2.5 %THb (0-5.0); Total Hemoglobin 10.5 g/dL (12.0-18.0)
[2024-10-17 01:13] LABS: pH ABG 7.534 (7.350-7.450)
[2024-10-17 01:14] LABS: Device ROOM AIR; PCO2 ABG 18.5 mmHg (35.0-45.0); Site Drawn LEFT BRACHIAL
[2024-10-17] MEDS: KCL 20 MEQ/D5/0.45% SOD CHL 1,000 ML 100 ML IV CONT (02:13)
[2024-10-17] MEDS: METOCLOPRAMIDE HCL INJ 10 MG/2 ML VIAL IV PUSH ×3 (02:24→17:01)
[2024-10-17] MEDS: diphenhydrAMINE HCl INJ 50 MG/ML VIAL 25 MG IV PUSH (02:24)
[2024-10-17] MEDS: INSULIN HUMAN REGULAR (*BKC) 100 UNITS in SODIUM CHLORIDE 0.9% IV 99 ML 6.5 UNITS IV CONT (02:40)
[2024-10-17 02:44] LABS: Glucose Point of Care 391 mg/dl (65-105)
[2024-10-17 03:03] LABS: Add Urine Microscopic? YES; Appearance Urine Cloudy (Clear); Bacteria Urine None Seen /hpf; Bilirubin Urine Negative (Negative); Blood Urine Negative (Negative); Color Urine Yellow (Yellow); Glucose Urine UA 3+ mg/dL (Negative); Ketones Urine 3+ mg/dL (Negative); Leukocyte Esterase Ur Negative LEU/UL (Negative); Nitrate Urine Negative (Negative); Non Pathogenic Casts 0-2; Protein Urine Negative (Negative); RBC Urine 0-2 /hpf (0-2); Specific Grav Ur 1.022 (1.001-1.035); Squamous Epithelial Cell Urine Occasional /hpf (Few); Urobilinogen Urine 0.2 mg/dL (<2.0); WBC Urine 0-5 /hpf (0-3); pH Urine 5.5 (5.0-9.0)
[2024-10-17] MEDS: SODIUM CHLORIDE 0.9% IV 1,000 ML 150 ML IV CONT (03:20)
[2024-10-17 03:24] LABS: Glucose Point of Care 323 mg/dl (65-105)
--- NOTE | 2024-10-17 03:29 | ADMGEN ---
This patient, Tara Hinkle, was admitted to Intensive Care Unit-7. Patient/family oriented to hospital policies and general routines including ID bracelet, bed and alarms, visiting hours, pain management, procedures, bathroom and other care routines, personal items, smoking policy, room service/diet, and visiting hours. Information on how to activate the Rapid Response Team has been discussed. Patient/Family are encouraged to report perceived risks to care and to ask questions if they do not understand what they are told or what they should do.
[2024-10-17 04:10] LABS: Hemoglobin A1C 7.8 % (<5.7)
[2024-10-17 04:15] LABS: Anion Gap 25 mmol/L (4-12); Blood Urea Nitrogen 17 mg/dL (7-17); Calcium 9.9 mg/dL (8.4-10.2); Carbon Dioxide 12 mmol/L (22-30); Chloride 103 mmol/L (98-107); Estimated CRCL calculation 94 ml/min; Estimated Glomerular Filt Rate > 60; Glucose 280 mg/dL (65-110); Magnesium 2.2 mg/dL (1.6-2.3); Phosphorus 3.3 mg/dL (2.5-4.5); Potassium 3.6 mmol/L (3.4-5.0); Sodium 140 mmol/L (137-145)
[2024-10-17] MEDS: KCL 20 MEQ/D5/0.45% SOD CHL 1,000 ML 150 ML IV CONT ×3 (04:18→22:00)
[2024-10-17 04:24] LABS: Glucose Point of Care 216 mg/dl (65-105)
[2024-10-17 04:29] LABS: Influenza A QL RT-PCR Negative (Negative); Influenza B QL RT-PCR Negative (Negative); RSV RNA, RT-PCR Negative (Negative); SARS-CoV-2 RNA PCR Negative (Negative)
[2024-10-17] MEDS: PROMETHAZINE HCL 25 MG/ML AMPUL IM ×3 (05:05→19:41)
[2024-10-17 05:09] LABS: MRSA (PCR) NOT DETECTED (NOT DETECTE)
[2024-10-17 05:12] LABS: Glucose Point of Care 175 mg/dl (65-105)
[2024-10-17 06:10] LABS: Glucose Point of Care 173 mg/dl (65-105)
--- NOTE | 2024-10-17 06:11 | P.HP_ITS ---
H&P: HPI History of Present Illness Date/Time: 10/17/24 06:11 Chief Complaint: Abdominal pain Narrative: 39-year-old female with a past medical history type 1 diabetes mellitus since age 7, diabetic gastroparesis, diabetic neuropathy, bipolar disorder, GERD, migraines and cannabis hyperemesis syndrome who presented to the ER with nausea vomiting and abdominal pain. Patient tells me the symptoms have been on since the but acutely worsened today. She reports that she has been using her insulin as prescribed but her sugars have been higher than usual running in the 2-300 range. She reports feeling significantly nauseous and having vomiting. Nursing staff noted the patient had been forcing emesis. The patient has continued to smoke marijuana. But she reports that she quit drinking alcohol altogether 6 months ago. She was having left lower and middle abdominal pain. She thought it may be due to ?gallbladder issues that she had had in the past?. In the ER she was afebrile but tachycardic with heart rates in the 130s to 150s range. She received 30 mL/kilos bolus with normal saline initially. Initial blood pressures were high in the 180 systolic but have come down into a more normal range. She is noted to be tachypneic and was found to be ketotic. ABG demonstrated significant respiratory alkalosis with acute metabolic acidosis. Initial serum bicarb was 17. And initial anion gap was 22. Patient was started on insulin drip in the ER but unfortunately was also placed on D10 containing fluids. Her anion gap on presentation to the ICU was worse and her serum bicarb at also dropped. However after her IV fluids were adjusted and insulin drip was corrected repeat labs this morning have improved. However patient still appears acutely ill-appearing and is markedly tachycardic. She reports urinary frequency after IV fluid administration. At the time my evaluation the patient is markedly tremulous. She reports that she has been almost constantly tremulous since her last hospitalization. Her last hospitalization was from 10/02/2024 through 10/10/2024. Review of Systems 2 Review of Systems: Review of systems were reviewed and addressed as per HPI. [facility] Past Medical History Medical History GERD with esophagitis Cannabinoid hyperemesis syndrome Bipolar disorder Esophageal varices 04/2024 Depression Migraine Diabetic neuropathy Hyperlipidemia Gastroparesis Elevated liver enzymes Type 1 diabetes mellitus Diagnosed at the age of 7. Hemoglobin A1c was 10.8% on 08/09/2020. DKA (diabetic ketoacidoses) multiple Surgical History Surgical History History of gynecological procedure 04/29/2020- mirena iud insertion - 10/23/2021 mirena iud removal -nm History of 3 sections Family History Family History Grandparent Breast cancer Father Diabetes mellitus Alcoholism Mother Alcoholism Depression Other Hypertension Social History Social History (Updated 10/17/24 @ 07:09 by Charlene Woods DO) Social History: Code status: Full code Surrogate decision maker: Gomez Henry (father) Smoking packs per day: 1 Smoking cigarettes per day: 20.0 Years smoked: 25 Smoking pack-years: 25.00 Smoking status: Current every day smoker Second hand tobacco smoke exposure: Yes Alcohol intake: former Drinks per week: 20 Alcohol use details: occasional Substance use: current Substance use type: marijuana Last use: 10/15/24 Do You Feel Safe in your Home?: Yes Lack of Transportation: No Lack of Food: Never True Current Housing: I Have Housing Concerned About Future Housing: No Difficulty Paying Gas/Electric Bills: No Difficulty Paying for Meds: No Currently Unemployed: YES Education: Decline to Answer Difficulty w/ Childcare or Family Care: No Living arrangements: with family Occupation/Education: unemployed Additional occupation/education comments: not currently working Gender identity (if verbalized by the patient): Female Sexual Orientation (if Verbalized by the Patient): Straight or Heterosexual Spiritual care concerns: No Meds Home Medications and Allergies Home Medications ?Medication ?Instructions ?Recorded ?Confirmed ?Type insulin pump cartridge,auto #1 ea 01/09/24 10/17/24 Rx dose,BT,G6/G7 with controller subcutaneous (Omnipod 5 G6-G7 Intro Kit(Gen 5) subcutaneous cartridge and controller) gabapentin 300 mg capsule 300 mg PO QHS #90 caps 01/17/24 10/17/24 Rx lisinopril 2.5 mg tablet 2.5 mg PO DAILY #90 tabs 01/30/24 10/17/24 Rx insulin pump cartridge,auto #1 ea 05/14/24 10/17/24 Rx dose,BT,G6/G7 with controller subcutaneous glucagon 1 mg/0.2 mL subcutaneous 1 mg (0.2 mL) subcut ONCE #0.4 mL 06/02/24 10/17/24 Rx auto-injector (Gvoke HypoPen 2-Pack) glucose 4 gram chewable tablet 16 g (4 x 4 gram) PO Q15M PRN 06/02/24 10/17/24 Rx hypoglycemia #360 tabs insulin lispro 100 unit/mL See Rx Instructions subcut PRN 06/02/24 10/17/24 Rx subcutaneous solution insulin pump #60 mL insulin pump cart,auto,BT,G6/7 #45 ea 06/02/24 10/17/24 Rx mecobalamin (vitamin B12) 500 mcg 500 mcg PO DAILY 07/15/24 10/17/24 History chewable tablet multivitamin 1 tablet PO DAILY 07/15/24 10/17/24 History acetaminophen 500 mg capsule 1,000 mg (2 x 500 mg) PO Q6H PRN 07/31/24 10/17/24 Rx pain #30 caps aluminum-mag hydroxide-simethicone 10 ml PO TID PRN indigestion 07/31/24 10/17/24 Rx 400 mg-400 mg-40 mg/5 mL oral susp #3,000 mL (Liquid Antacid) melatonin 10 mg tablet 10 mg PO HS PRN Insomnia 08/02/24 10/17/24 History insulin glargine 100 unit/mL 25 unit (0.25 mL) subcut DAILY 30 08/06/24 10/17/24 Rx subcutaneous solution (Lantus days #15 mL U-100 Insulin) cholecalciferol (vitamin D3) 50 See Rx Instructions .Route 09/08/24 10/17/24 Rx mcg (2,000 unit) capsule (Vitamin .COMPLEX #90 caps D3) folic acid 1 mg tablet See Rx Instructions .Route 09/08/24 10/17/24 Rx .COMPLEX #90 tabs blood-glucose sensor (Dexcom G6 #9 ea 09/16/24 10/17/24 Rx Sensor device) insulin pump cart,auto,BT,G6/7 #30 ea 09/21/24 10/17/24 Rx (Omnipod 5 G6-G7 Pods (Gen 5) subcutaneous cartridge) metoclopramide HCl 10 mg tablet 10 mg PO Q6H PRN nausea and 10/02/24 10/17/24 History vomiting blood-glucose transmitter (Dexcom #1 ea 10/12/24 10/17/24 Rx G6 Transmitter device) Allergies Allergy/AdvReac Type Severity Reaction Status Date / Time No Known Allergies Allergy Verified 10/16/24 22:06 Vital Signs Vital Signs - 24 hr 10/16/24 21:57 10/16/24 22:06 10/17/24 02:09 Temperature 98.1 F Pulse Rate 137 H 134 H 148 H Respiratory Rate 18 20 20 Blood Pressure 180/100 H 147/83 H 155/69 H Pulse Oximetry 99 100 99 Oxygen Delivery Room Air 10/17/24 02:56 10/17/24 03:10 10/17/24 03:39 Temperature 99 F Pulse Rate 155 H 152 H 152 H Respiratory Rate 16 21 H 21 H Blood Pressure 157/69 H Pulse Oximetry 97 100 100 Oxygen Delivery Room Air 10/17/24 04:00 10/17/24 04:00 Temperature 99.1 F Pulse Rate 149 H 149 H Respiratory Rate 19 Blood Pressure 148/69 H Pulse Oximetry 100 Oxygen Delivery Exam 2 Narrative: Weight 64.6 kg BMI 24.4 Const: Other: Acutely ill-appearing, appears stated age, well-developed well-nourished HENMT: Other: Head is normocephalic and atraumatic, mucous membranes are moist, no oral pharyngeal erythema, fair dentition Eyes: Other: Pupils are equal and reactive, positive conjunctival pallor, no scleral icterus Neck: Other: No JVD, no lymphadenopathy Resp: Other: No increased work of breathing, shallow respirations, clear to auscultation bilaterally anterior arana Cardio: Other: Sinus tachycardia, 2+ bilateral radial pedal pulses, no murmur GI: Other: Soft, nondistended, normoactive bowel sounds, generalized tenderness to palpation Skin: Other: Warm to touch, non jaundice, no pallor Neuro: Other: Alert and oriented, speech is clear, no facial asymmetry, intention tremor Extrem: Other: Tremulous upper extremities more so than lower worse with movement and position changes, no clubbing, cyanosis or edema Psych: Other: Anxious, restless, poor judgment and insight H&P: Results Labs Labs: Short CBC 10/16/24 Range/Units 23:52 WBC 8.7 (4.5-10.0) K/mm3 Hgb 11.3 L (12.0-15.0) g/dL Hct 35.5 L (37.0-47.0) % Plt Count 362 (150-375) k/mm3 BMP 10/16/24 10/17/24 23:52 03:39 Sodium 136 L 140 Potassium 4.3 3.6 Chloride 97 L 103 Carbon Dioxide 17 L 12 L BUN 15 17 Creatinine 0.52 L 0.60 L Glucose 328 H 280 H Calcium 10.7 H 9.9 Liver Function 10/16/24 Range/Units 23:52 Total Bilirubin 1.2 (0.2-1.3) mg/dL AST 23 (14-36) U/L ALT 23 (6-35) U/L Alkaline Phosphatase 80 (38-126) U/L Albumin 4.2 (3.5-5.1) g/dL Urine 10/17/24 Range/Units 02:53 Urine Color Yellow (Yellow) Urine Appearance Cloudy H (Clear) Urine pH 5.5 (5.0-9.0) Ur Specific [place] 1.022 (1.001-1.035) Urine Protein Negative (Negative) mg/dL Urine Glucose (UA) 3+ H (Negative) mg/dL Laboratory Tests 10/16/24 23:52 10/17/24 03:39 10/16/24 10/16/24 10/16/24 22:10 23:32 23:52 WBC 8.7 RBC 4.45 Hgb 11.3 L Hct 35.5 L MCV 79.8 L MCH 25.4 L MCHC 31.8 L RDW 15.5 H Plt Count 362 MPV 11.1 H Immature Gran % (Auto) 0.2 Neut % (Auto) 85.0 H Lymph % (Auto) 10.8 L [place] % (Auto) 3.6 Eos % (Auto) 0.2 Baso % (Auto) 0.2 Lymph # (Auto) 0.94 [place] # (Auto) 0.3 Eos # (Auto) 0.0 Baso # (Auto) 0.0 Abs Immat Gran (auto) 0.02 Absolute Neuts (auto) 7.4 H Absolute Nucleated RBC 0.000 Nucleated RBC % 0.0 Puncture Site ABG pH ABG pCO2 ABG pO2 ABG PO2/FiO2 Ratio ABG HCO3 ABG O2 Saturation ABG O2 Content ABG Base Excess A-a Gradient Oxyhemoglobin Carboxyhemoglobin Methemoglobin Reduced Hemoglobin Total Hemoglobin O2 Delivery Device O2 Liters/Min FiO2 Sodium 136 L Potassium 4.3 Chloride 97 L Carbon Dioxide 17 L Anion Gap 22 H BUN 15 Creatinine 0.52 L Estim Creat Clear Calc 107 Estimated GFR > 60 Glucose 328 H POC Capillary Glucose 255 H 303 H Hemoglobin A1c Calcium 10.7 H Phosphorus 4.4 Magnesium 1.2 L Total Bilirubin 1.2 AST 23 ALT 23 Alkaline Phosphatase 80 Total Protein 8.0 Albumin 4.2 Beta-Hydroxybutyrate/Acetoacetate 4.31 H Urine Color Urine Appearance Urine pH Ur Specific [place] Urine Protein Urine Glucose (UA) Urine Ketones Ur Blood (Man) Urine Nitrate Urine Bilirubin Urine Urobilinogen Leukocyte Esterase Rfl Urine RBC Urine WBC Ur Squamous Epith Cells Urine Bacteria Urine Casts Nasal MRSA (PCR) Influenza A (RT-PCR) Influenza B (RT-PCR) RSV (RT-PCR) SARS-CoV-2 RNA (RT-PCR) 10/17/24 10/17/24 10/17/24 00:40 02:42 02:53 WBC RBC Hgb Hct MCV MCH MCHC RDW Plt Count MPV Immature Gran % (Auto) Neut % (Auto) Lymph % (Auto) [place] % (Auto) Eos % (Auto) Baso % (Auto) Lymph # (Auto) [place] # (Auto) Eos # (Auto) Baso # (Auto) Abs Immat Gran (auto) Absolute Neuts (auto) Absolute Nucleated RBC Nucleated RBC % Puncture Site Left brachial ABG pH 7.534 H* ABG pCO2 18.5 L* ABG pO2 90.7 ABG PO2/FiO2 Ratio 4.32 ABG HCO3 15.3 L ABG O2 Saturation 97.9 ABG O2 Content 14.3 L ABG Base Excess -5.5 A-a Gradient 36.9 Oxyhemoglobin 95.8 Carboxyhemoglobin 1.4 Methemoglobin 0.3 Reduced Hemoglobin 2.5 Total Hemoglobin 10.5 L O2 Delivery Device Room air O2 Liters/Min 0.0 FiO2 21 Sodium Potassium Chloride Carbon Dioxide Anion Gap BUN Creatinine Estim Creat Clear Calc Estimated GFR Glucose POC Capillary Glucose 391 H Hemoglobin A1c Calcium Phosphorus Magnesium Total Bilirubin AST ALT Alkaline Phosphatase Total Protein Albumin Beta-Hydroxybutyrate/Acetoacetate Urine Color Yellow Urine Appearance Cloudy H Urine pH 5.5 Ur Specific [place] 1.022 Urine Protein Negative Urine Glucose (UA) 3+ H Urine Ketones 3+ H Ur Blood (Man) Negative Urine Nitrate Negative Urine Bilirubin Negative Urine Urobilinogen 0.2 Leukocyte Esterase Rfl Negative Urine RBC 0-2 Urine WBC 0-5 Ur Squamous Epith Cells Occasional Urine Bacteria None seen Urine Casts 0-2 Nasal MRSA (PCR) Influenza A (RT-PCR) Influenza B (RT-PCR) RSV (RT-PCR) SARS-CoV-2 RNA (RT-PCR) 10/17/24 10/17/24 10/17/24 03:18 03:39 03:43 WBC RBC Hgb Hct MCV MCH MCHC RDW Plt Count MPV Immature Gran % (Auto) Neut % (Auto) Lymph % (Auto) [place] % (Auto) Eos % (Auto) Baso % (Auto) Lymph # (Auto) [place] # (Auto) Eos # (Auto) Baso # (Auto) Abs Immat Gran (auto) Absolute Neuts (auto) Absolute Nucleated RBC Nucleated RBC % Puncture Site ABG pH ABG pCO2 ABG pO2 ABG PO2/FiO2 Ratio ABG HCO3 ABG O2 Saturation ABG O2 Content ABG Base Excess A-a Gradient Oxyhemoglobin Carboxyhemoglobin Methemoglobin Reduced Hemoglobin Total Hemoglobin O2 Delivery Device O2 Liters/Min FiO2 Sodium 140 Potassium 3.6 Chloride 103 Carbon Dioxide 12 L Anion Gap 25 H BUN 17 Creatinine 0.60 L Estim Creat Clear Calc 94 Estimated GFR > 60 Glucose 280 H POC Capillary Glucose 323 H Hemoglobin A1c 7.8 H Calcium 9.9 Phosphorus 3.3 Magnesium 2.2 Total Bilirubin AST ALT Alkaline Phosphatase Total Protein Albumin Beta-Hydroxybutyrate/Acetoacetate Urine Color Urine Appearance Urine pH Ur Specific [place] Urine Protein Urine Glucose (UA) Urine Ketones Ur Blood (Man) Urine Nitrate Urine Bilirubin Urine Urobilinogen Leukocyte Esterase Rfl Urine RBC Urine WBC Ur Squamous Epith Cells Urine Bacteria Urine Casts Nasal MRSA (PCR) Not detected Influenza A (RT-PCR) Influenza B (RT-PCR) RSV (RT-PCR) SARS-CoV-2 RNA (RT-PCR) 10/17/24 10/17/24 10/17/24 03:46 04:17 05:09 WBC RBC Hgb Hct MCV MCH MCHC RDW Plt Count MPV Immature Gran % (Auto) Neut % (Auto) Lymph % (Auto) [place] % (Auto) Eos % (Auto) Baso % (Auto) Lymph # (Auto) [place] # (Auto) Eos # (Auto) Baso # (Auto) Abs Immat Gran (auto) Absolute Neuts (auto) Absolute Nucleated RBC Nucleated RBC % Puncture Site ABG pH ABG pCO2 ABG pO2 ABG PO2/FiO2 Ratio ABG HCO3 ABG O2 Saturation ABG O2 Content ABG Base Excess A-a Gradient Oxyhemoglobin Carboxyhemoglobin Methemoglobin Reduced Hemoglobin Total Hemoglobin O2 Delivery Device O2 Liters/Min FiO2 Sodium Potassium Chloride Carbon Dioxide Anion Gap BUN Creatinine Estim Creat Clear Calc Estimated GFR Glucose POC Capillary Glucose 216 H 175 H Hemoglobin A1c Calcium Phosphorus Magnesium Total Bilirubin AST ALT Alkaline Phosphatase Total Protein Albumin Beta-Hydroxybutyrate/Acetoacetate Urine Color Urine Appearance Urine pH Ur Specific [place] Urine Protein Urine Glucose (UA) Urine Ketones Ur Blood (Man) Urine Nitrate Urine Bilirubin Urine Urobilinogen Leukocyte Esterase Rfl Urine RBC Urine WBC Ur Squamous Epith Cells Urine Bacteria Urine Casts Nasal MRSA (PCR) Influenza A (RT-PCR) Negative Influenza B (RT-PCR) Negative RSV (RT-PCR) Negative SARS-CoV-2 RNA (RT-PCR) Negative 10/17/24 06:06 WBC RBC Hgb Hct MCV MCH MCHC RDW Plt Count MPV Immature Gran % (Auto) Neut % (Auto) Lymph % (Auto) [place] % (Auto) Eos % (Auto) Baso % (Auto) Lymph # (Auto) [place] # (Auto) Eos # (Auto) Baso # (Auto) Abs Immat Gran (auto) Absolute Neuts (auto) Absolute Nucleated RBC Nucleated RBC % Puncture Site ABG pH ABG pCO2 ABG pO2 ABG PO2/FiO2 Ratio ABG HCO3 ABG O2 Saturation ABG O2 Content ABG Base Excess A-a Gradient Oxyhemoglobin Carboxyhemoglobin Methemoglobin Reduced Hemoglobin Total Hemoglobin O2 Delivery Device O2 Liters/Min FiO2 Sodium Potassium Chloride Carbon Dioxide Anion Gap BUN Creatinine Estim Creat Clear Calc Estimated GFR Glucose POC Capillary Glucose 173 H Hemoglobin A1c Calcium Phosphorus Magnesium Total Bilirubin AST ALT Alkaline Phosphatase Total Protein Albumin Beta-Hydroxybutyrate/Acetoacetate Urine Color Urine Appearance Urine pH Ur Specific [place] Urine Protein Urine Glucose (UA) Urine Ketones Ur Blood (Man) Urine Nitrate Urine Bilirubin Urine Urobilinogen Leukocyte Esterase Rfl Urine RBC Urine WBC Ur Squamous Epith Cells Urine Bacteria Urine Casts Nasal MRSA (PCR) Influenza A (RT-PCR) Influenza B (RT-PCR) RSV (RT-PCR) SARS-CoV-2 RNA (RT-PCR) Chest x-ray: Personally reviewed, no acute cardiopulmonary process. Radiologic interpretation pending [id number] 03:57:08 Measurements Intervals [place] Rate: 114 P: 74 MS: 153 QRS: 2 QRSD: 82 T: 55 QT: 328 QTc: 453 Interpretive Statements SINUS TACHYCARDIA ABNORMAL ECG Compared to ECG 08/03/2024 19:26:56 HEART RATE HAS INCREASED Assessment and Plan Assessment and plan (1) DKA, type 1, not at goal: Code(s): E10.10 - Type 1 diabetes mellitus with ketoacidosis without coma Status: Acute (2) Type 1 diabetes mellitus: Qualifiers: Diabetes mellitus complication status: with hyperglycemia Qualified Code(s): E10.65 - Type 1 diabetes mellitus with hyperglycemia Code(s): E10.9 - Type 1 diabetes mellitus without complications Status: Acute (3) Hypomagnesemia: Code(s): E83.42 - Hypomagnesemia Status: Acute Plan Patient has been admitted to the ICU and placed on insulin drip per DKA protocol. Will continue his serial electrolyte panels and electrolyte replacement as needed. Patient did have some hypo magnesemia in the ER. She received a 4 g rider. Her repeat minute medium was normal but this I suspect was drawn while the patient was still receiving magnesium supplements. Patient will be continued on IV fluids at 150 mL an hour with D5 added and once patient's glucose 200. Once patient's serum bicarb has normalized and anion gap will resume patient's home insulin regimen. Patient is still markedly tachycardic. Will given additional 1 L bolus of LR. Will provide p.r.n. antiemetics with Zofran and an labs Phenergan if needed for persistent vomiting. Patient has had history of QT prolongation in the past but currently her QT interval is normal. Will need to monitor closely given administration of multiple QT prolonging medications. Patient is noncompliant with supplemental medications or diabetes (i.e. lisinopril) and vitamin supplement including vitamin-D, B12 and folic acid supplements. A1c is slightly improved compared to recent hospitalization but still out of goal range. Patient received 30 mL/kilos fluid bolus in the ER and I have supplemented with an additional 1 L of LR given significant tachycardia. Given persistent nausea will stop Zofran and will schedule Reglan as a component the patient's symptoms may also be due to gastroparesis and exacerbated by her cannabis use. 35 minute spent critical care activities. Due to a high probability of clinically significant, life threatening deterioration, the patient required my highest level of preparedness to intervene emergently and I personally spent this critical care time directly and personally managing the patient. This critical care time included obtaining a history; examining the patient; pulse oximetry; ordering and review of studies; arranging urgent treatment with development of a management plan; evaluation of patient's response to treatment; frequent reassessment; and discussions with other providers. It was exclusive of separately billable procedures and treating other patients and teaching time. Please see Assessment and Plan section and the rest of the note for further information on patient assessment and treatment. Quality VTE Prophylaxis VTE prophylaxis: pharmacologic ordered (Lovenox 40 mg subQ daily.) Hospitalist [facility] Advance Care Plan I have confirmed that the patient's Advanced Care Plan is present, code status is documented, or surrogate decision maker is listed in patient medical record.: Yes Medication Reconciliation I have utilized all available resources to obtain, update and review the patients current medications (includes all prescriptions, OTC, herbals, cannabis, and nutritional supplements).: Yes
[2024-10-17 07:02] LABS: Anion Gap 15 mmol/L (4-12); Blood Urea Nitrogen 17 mg/dL (7-17); Calcium 9.8 mg/dL (8.4-10.2); Carbon Dioxide 19 mmol/L (22-30); Chloride 104 mmol/L (98-107); Estimated CRCL calculation 94 ml/min; Estimated Glomerular Filt Rate > 60; Glucose 196 mg/dL (65-110); Potassium 4.2 mmol/L (3.4-5.0); Sodium 138 mmol/L (137-145)
[2024-10-17] MEDS: LACTATED RINGERS 1,000 ML 999 ML IV CONT (07:03)
[2024-10-17 07:08] LABS: Glucose Point of Care 190 mg/dl (65-105)
[2024-10-17 07:50] LABS: Glucose Point of Care 276 mg/dl (65-105)
--- NOTE | 2024-10-17 08:54 | P.CONIN_ITS ---
Assessment and Plan Assessment and plan (1) DKA (diabetic ketoacidosis): Code(s): E11.10 - Type 2 diabetes mellitus with ketoacidosis without coma Status: Acute Assessment and Plan: Pt was given IVF bolus and started on infusion Insulin infusion started and Q1H glucose monitoring is being done Serial labs ordered Replace electrolytes as needed Will transition to SC insulin once AG is closed npo Dietitian and parent educator consult (2) Gastroparesis: Code(s): K31.84 - Gastroparesis Status: Acute Assessment and Plan: Continue regular (3) Abdominal pain: Code(s): R10.9 - Unspecified abdominal pain Status: Acute Assessment and Plan: Can be secondary to nausea vomiting and retching. Patient had CT done early this month which did show infectious inflammatory colitis Patient denies any diarrhea at this time Will repeat CT scan check lipase (4) Sinus tachycardia: Code(s): R00.0 - Tachycardia, unspecified Status: Acute Assessment and Plan: Sinus tachycardia in the monitor. Could be secondary to DKA and hypovolemia patient has received amount of IV fluids Will give IV Lopressor x1 as patient is also hypertensive Check TSH Plan DVT prophylaxis -SCD Nutrition - npo Code Status - Full Code Starch Mangle Tender Consult Note Consult date: 10/17/24 Reason for consult: DKA HPI: Tara Hinkle is a 39 year old female with a past medical history type 1 diabetes mellitus since age 7, diabetic gastroparesis, diabetic neuropathy, bipolar disorder, GERD, migraines and cannabis hyperemesis syndrome who comes to the ER and gets admitted frequently presented again with nausea vomiting and abdominal pain. Symptoms have been going on for last couple of days with acute worsening yesterday. She reports that she has been using her insulin as prescribed but her sugars have been running high in range of 300.. Complains of nausea and vomiting. Nursing staff reported that patient had been forcing emesis. The patient continues to smoke marijuana but denies drinking alcohol. She also complains of abdominal pain which is not new but restarted yesterday. Pain is diffuse all over her belly and 8/10. She denies any diarrhea hematuria hematochezia or dysuria.. All other systems were reviewed and were negative Workup in the ER showed thate was afebrile but tachycardic with heart rates in the 130s to 150s range. She received 30 mL/kilos bolus with normal saline initially. Initial blood pressures were high in the 180 systolic but improved She is noted to be tachypneic and was found to be ketotic. ABG demonstrated significant respiratory alkalosis with acute metabolic acidosis. Initial serum bicarb was 17. And initial anion gap was 22. Patient was started on insulin drip in the ER and IV fluids. Patient admitted to ICU for further evaluation management. Chest x-ray was unremarkable and UA was negative for any evidence of UTI Review of Systems 2 Review of Systems: All systems reviewed & are unremarkable except as noted in HPI and below (HPI) [facility] Past Medical History Medical History GERD with esophagitis Cannabinoid hyperemesis syndrome Bipolar disorder Esophageal varices 04/2024 Depression Migraine Diabetic neuropathy Hyperlipidemia Gastroparesis Elevated liver enzymes Type 1 diabetes mellitus Diagnosed at the age of 7. Hemoglobin A1c was 10.8% on 08/09/2020. DKA (diabetic ketoacidoses) multiple Surgical History Surgical History History of gynecological procedure 04/29/2020- mirena iud insertion - 10/23/2021 mirena iud removal -nm History of 3 sections Family History Family History Grandparent Breast cancer Father Diabetes mellitus Alcoholism Mother Alcoholism Depression Other Hypertension Social History Social History Social History: Code status: Full code Surrogate decision maker: Gomez Henry (father) Smoking packs per day: 1 Smoking cigarettes per day: 20.0 Years smoked: 25 Smoking pack-years: 25.00 Smoking status: Current every day smoker Second hand tobacco smoke exposure: Yes Alcohol intake: former Drinks per week: 20 Alcohol use details: occasional Substance use: current Substance use type: marijuana Last use: 10/15/24 Do You Feel Safe in your Home?: Yes Lack of Transportation: No Lack of Food: Never True Current Housing: I Have Housing Concerned About Future Housing: No Difficulty Paying Gas/Electric Bills: No Difficulty Paying for Meds: No Currently Unemployed: YES Education: Decline to Answer Difficulty w/ Childcare or Family Care: No Living arrangements: with family Occupation/Education: unemployed Additional occupation/education comments: not currently working Gender identity (if verbalized by the patient): Female Sexual Orientation (if Verbalized by the Patient): Straight or Heterosexual Spiritual care concerns: No Meds Home Medications and Allergies Home Medications ?Medication ?Instructions ?Recorded ?Confirmed ?Type insulin pump cartridge,auto #1 ea 01/09/24 10/17/24 Rx dose,BT,G6/G7 with controller subcutaneous (Omnipod 5 G6-G7 Intro Kit(Gen 5) subcutaneous cartridge and controller) gabapentin 300 mg capsule 300 mg PO QHS #90 caps 01/17/24 10/17/24 Rx lisinopril 2.5 mg tablet 2.5 mg PO DAILY #90 tabs 01/30/24 10/17/24 Rx insulin pump cartridge,auto #1 ea 05/14/24 10/17/24 Rx dose,BT,G6/G7 with controller subcutaneous glucagon 1 mg/0.2 mL subcutaneous 1 mg (0.2 mL) subcut ONCE #0.4 mL 06/02/24 10/17/24 Rx auto-injector (GvMaximum Balance Foundation HypoPen 2-Pack) glucose 4 gram chewable tablet 16 g (4 x 4 gram) PO Q15M PRN 06/02/24 10/17/24 Rx hypoglycemia #360 tabs insulin lispro 100 unit/mL See Rx Instructions subcut PRN 06/02/24 10/17/24 Rx subcutaneous solution insulin pump #60 mL insulin pump cart,auto,BT,G6/7 #45 ea 06/02/24 10/17/24 Rx mecobalamin (vitamin B12) 500 mcg 500 mcg PO DAILY 07/15/24 10/17/24 History chewable tablet multivitamin 1 tablet PO DAILY 07/15/24 10/17/24 History acetaminophen 500 mg capsule 1,000 mg (2 x 500 mg) PO Q6H PRN 07/31/24 10/17/24 Rx pain #30 caps aluminum-mag hydroxide-simethicone 10 ml PO TID PRN indigestion 07/31/24 10/17/24 Rx 400 mg-400 mg-40 mg/5 mL oral susp #3,000 mL (Liquid Antacid) melatonin 10 mg tablet 10 mg PO HS PRN Insomnia 08/02/24 10/17/24 History insulin glargine 100 unit/mL 25 unit (0.25 mL) subcut DAILY 30 08/06/24 10/17/24 Rx subcutaneous solution (Lantus days #15 mL U-100 Insulin) cholecalciferol (vitamin D3) 50 See Rx Instructions .Route 09/08/24 10/17/24 Rx mcg (2,000 unit) capsule (Vitamin .COMPLEX #90 caps D3) folic acid 1 mg tablet See Rx Instructions .Route 09/08/24 10/17/24 Rx .COMPLEX #90 tabs blood-glucose sensor (Dexcom G6 #9 ea 09/16/24 10/17/24 Rx Sensor device) insulin pump cart,auto,BT,G6/7 #30 ea 09/21/24 10/17/24 Rx (Omnipod 5 G6-G7 Pods (Gen 5) subcutaneous cartridge) metoclopramide HCl 10 mg tablet 10 mg PO Q6H PRN nausea and 10/02/24 10/17/24 History vomiting blood-glucose transmitter (Dexcom #1 ea 10/12/24 10/17/24 Rx G6 Transmitter device) Allergies Allergy/AdvReac Type Severity Reaction Status Date / Time No Known Allergies Allergy Verified 10/16/24 22:06 Vital Signs Vital Signs - 24 hr 10/16/24 21:57 10/16/24 22:06 10/17/24 02:09 Temperature 36.7 C Pulse Rate 137 H 134 H 148 H Respiratory Rate 18 20 20 Blood Pressure 180/100 H 147/83 H 155/69 H Pulse Oximetry 99 100 99 Oxygen Delivery Room Air 10/17/24 02:56 10/17/24 03:10 10/17/24 03:39 Temperature 37.2 C Pulse Rate 155 H 152 H 152 H Respiratory Rate 16 21 H 21 H Blood Pressure 157/69 H Pulse Oximetry 97 100 100 Oxygen Delivery Room Air 10/17/24 04:00 10/17/24 04:00 10/17/24 06:00 Temperature 37.3 C Pulse Rate 149 H 149 H 130 H Respiratory Rate 19 Blood Pressure 148/69 H Pulse Oximetry 100 Oxygen Delivery 10/17/24 06:00 10/17/24 08:00 Temperature 37.3 C Pulse Rate 130 H 148 H Respiratory Rate 19 18 Blood Pressure 106/44 L 145/79 H Pulse Oximetry 98 99 Oxygen Delivery Exam 2 Narrative: General: Pt is alert awake and in NAD Lungs/Chest: Trachea central Clear BS B/L, No crackles or wheezing. Cardiac: RRR. Normal S1 S2. No murmurs Circulation: Pedal pulses are intact and symmetrical. Abdomen: Normal bowel sounds.. Soft. Mild diffuse tenderness to palpation, no guarding or rigidity Extremities: No clubbing, cyanosis or edema. Warm : Christian in place Neurologic: Follows commands. Moves all 4 extremities PERRL AO x3 Skin: No Rash Results Labs 10/16/24 23:52 10/17/24 06:39 Labs: Impressions Chest X-Ray 10/17/24 06:53 IMPRESSION: 1. Normal chest radiograph. Short CBC 10/16/24 Range/Units 23:52 WBC 8.7 (4.5-10.0) K/mm3 Hgb 11.3 L (12.0-15.0) g/dL Hct 35.5 L (37.0-47.0) % Plt Count 362 (150-375) k/mm3 BMP 10/16/24 10/17/24 10/17/24 23:52 03:39 06:39 Sodium 136 L 140 138 Potassium 4.3 3.6 4.2 Chloride 97 L 103 104 Carbon Dioxide 17 L 12 L 19 L BUN 15 17 17 Creatinine 0.52 L 0.60 L 0.60 L Glucose 328 H 280 H 196 H Calcium 10.7 H 9.9 9.8 Liver Function 10/16/24 Range/Units 23:52 Total Bilirubin 1.2 (0.2-1.3) mg/dL AST 23 (14-36) U/L ALT 23 (6-35) U/L Alkaline Phosphatase 80 (38-126) U/L Albumin 4.2 (3.5-5.1) g/dL Urine 10/17/24 Range/Units 02:53 Urine Color Yellow (Yellow) Urine Appearance Cloudy H (Clear) Urine pH 5.5 (5.0-9.0) Ur Specific [place] 1.022 (1.001-1.035) Urine Protein Negative (Negative) mg/dL Urine Glucose (UA) 3+ H (Negative) mg/dL Quality VTE Prophylaxis VTE prophylaxis: mechanical ordered Hospitalist MIPS Advance Care Plan I have confirmed that the patient's Advanced Care Plan is present, code status is documented, or surrogate decision maker is listed in patient medical record.: Yes Medication Reconciliation I have utilized all available resources to obtain, update and review the patients current medications (includes all prescriptions, OTC, herbals, cannabis, and nutritional supplements).: Yes
[2024-10-17 09:39] LABS: Thyroid Stimulating Hormone Reflex < 0.015 uIU/mL (0.465-4.68)
[2024-10-17 09:44] LABS: Glucose Point of Care 294 mg/dl (65-105)
[2024-10-17 09:48] LABS: Lipase 36 U/L (23-300)
[2024-10-17] MEDS: METOPROLOL TARTRATE INJ 5 MG/5 ML VIAL IV PUSH (09:50)
[2024-10-17 09:56] LABS: Glucose Point of Care 260 mg/dl (65-105)
--- NOTE | 2024-10-17 10:50 | PC.NURSE ---
para educator called at 1050. NO answer. Voicemail left for patient referral.
[2024-10-17 11:11] LABS: Glucose Point of Care 212 mg/dl (65-105)
[2024-10-17 11:12] LABS: Anion Gap 14 mmol/L (4-12); Blood Urea Nitrogen 15 mg/dL (7-17); Calcium 9.7 mg/dL (8.4-10.2); Carbon Dioxide 21 mmol/L (22-30); Chloride 105 mmol/L (98-107); Estimated CRCL calculation 100 ml/min; Estimated Glomerular Filt Rate > 60; Glucose 205 mg/dL (65-110); Potassium 3.8 mmol/L (3.4-5.0); Sodium 140 mmol/L (137-145)
[2024-10-17 12:25] LABS: Glucose Point of Care 160 mg/dl (65-105)
[2024-10-17 13:03] LABS: Glucose Point of Care 211 mg/dl (65-105)
[2024-10-17] MEDS: LACTATED RINGERS 500 ML 999 ML IV CONT (14:07)
[2024-10-17 14:13] LABS: Glucose Point of Care 292 mg/dl (65-105)
[2024-10-17 15:12] LABS: Glucose Point of Care 286 mg/dl (65-105)
[2024-10-17 15:56] LABS: Glucose Point of Care 288 mg/dl (65-105)
[2024-10-17 17:06] LABS: Glucose Point of Care 276 mg/dl (65-105)
--- NOTE | 2024-10-17 17:22 | PC.NURSE ---
Patient called out clinical services professional light at 1722. This RN responded to call light. Patient insisting NG tube be removed. Patient educated on risk of not following doctor advised orders. Patient alert and oriented and accepts risks of not having the NG tube. MD updated and made aware. NG tube removed intact. Patient continues to have nausea and vomiting. RN to continue to monitor.
[2024-10-17 18:13] LABS: Glucose Point of Care 226 mg/dl (65-105)
[2024-10-17 19:05] LABS: Glucose Point of Care 181 mg/dl (65-105)
[2024-10-17 20:04] LABS: Glucose Point of Care 249 mg/dl (65-105)
[2024-10-17] MEDS: GABAPENTIN 300 MG CAPSULE PO (20:08)
[2024-10-17 21:05] LABS: Glucose Point of Care 270 mg/dl (65-105)
[2024-10-17 21:21] LABS: Anion Gap 16 mmol/L (4-12); Blood Urea Nitrogen 11 mg/dL (7-17); Calcium 9.3 mg/dL (8.4-10.2); Carbon Dioxide 19 mmol/L (22-30); Chloride 102 mmol/L (98-107); Estimated CRCL calculation 111 ml/min; Estimated Glomerular Filt Rate > 60; Glucose 267 mg/dL (65-110); Potassium 4.1 mmol/L (3.4-5.0); Sodium 137 mmol/L (137-145)
[2024-10-17 22:03] LABS: Glucose Point of Care 263 mg/dl (65-105)
--- NOTE | 2024-10-17 22:15 | PC.NURSE ---
199910/17/24 no transdermal patch on at this time
[2024-10-17 23:23] LABS: Glucose Point of Care 221 mg/dl (65-105)
[2024-10-18] VITALS (19 sets, daily range): BP systolic 116–174; BP diastolic 58–93; PULSE 90–126; RESP 12–23; TEMP 36.4–37.2; O2SAT 95–100
[2024-10-18 00:01] LABS: Glucose Point of Care 228 mg/dl (65-105)
[2024-10-18] MEDS: ONDANSETRON INJ 4 MG/2 ML VIAL IV PUSH ×6 (00:11→23:08)
[2024-10-18] MEDS: METOCLOPRAMIDE HCL INJ 10 MG/2 ML VIAL IV PUSH ×5 (00:11→23:08)
[2024-10-18 01:03] LABS: Glucose Point of Care 229 mg/dl (65-105)
[2024-10-18 01:59] LABS: Glucose Point of Care 202 mg/dl (65-105)
[2024-10-18 03:00] LABS: Glucose Point of Care 207 mg/dl (65-105)
[2024-10-18] MEDS: PROMETHAZINE HCL 25 MG/ML AMPUL IM ×3 (03:34→16:05)
[2024-10-18 03:56] LABS: Hematocrit 27.4 % (37.0-47.0); Mean Corpuscular HGB Conc 32.8 g/dl (32-36); Mean Corpuscular Volume 79.2 fl (80-100); Mean Platelet Volume 10.2 fl (7.4-10.4); Platelet Count Result 260 k/mm3 (150-375); Red Blood Count 3.46 M/mm3 (4.2-5.4); White Blood Count 9.5 K/mm3 (4.5-10.0)
[2024-10-18 04:09] LABS: Alanine Aminotransferase 21 U/L (6-35); Albumin Level 3.4 g/dL (3.5-5.1); Alkaline Phosphatase 65 U/L (38-126); Anion Gap 10 mmol/L (4-12); Aspartate Amino Transferase 34 U/L (14-36); Blood Urea Nitrogen 10 mg/dL (7-17); Calcium 9.4 mg/dL (8.4-10.2); Carbon Dioxide 25 mmol/L (22-30); Chloride 102 mmol/L (98-107); Estimated CRCL calculation 113 ml/min; Estimated Glomerular Filt Rate > 60; Glucose 213 mg/dL (65-110); Magnesium 1.5 mg/dL (1.6-2.3); Potassium 3.8 mmol/L (3.4-5.0); Sodium 137 mmol/L (137-145)
[2024-10-18 04:17] LABS: Glucose Point of Care 199 mg/dl (65-105)
[2024-10-18 05:00] LABS: Glucose Point of Care 219 mg/dl (65-105)
[2024-10-18 06:03] LABS: Glucose Point of Care 249 mg/dl (65-105)
[2024-10-18] MEDS: KCL 20 MEQ/D5/0.45% SOD CHL 1,000 ML 150 ML IV CONT (06:07)
[2024-10-18 07:05] LABS: Glucose Point of Care 279 mg/dl (65-105)
[2024-10-18 07:51] LABS: Anion Gap 13 mmol/L (4-12); Blood Urea Nitrogen 7 mg/dL (7-17); Calcium 9.2 mg/dL (8.4-10.2); Carbon Dioxide 22 mmol/L (22-30); Chloride 100 mmol/L (98-107); Estimated CRCL calculation 117 ml/min; Estimated Glomerular Filt Rate > 60; Glucose 282 mg/dL (65-110); Potassium 4.1 mmol/L (3.4-5.0); Sodium 135 mmol/L (137-145)
[2024-10-18] MEDS: MAGNESIUM SULF 2 GM/WATER 50ML 2 GM/50 ML BAG IVPB (08:05)
[2024-10-18 08:15] LABS: Glucose Point of Care 293 mg/dl (65-105)
[2024-10-18] MEDS: INSULIN GLARGINE (*BKC) 100 UNITS/ML 25 UNITS SUB-Q (08:21)
--- NOTE | 2024-10-18 09:29 | WPDINTPN ---
Progress Note: A&P Assessment and Plan (1) DKA (diabetic ketoacidosis): Code(s): E11.10 - Type 2 diabetes mellitus with ketoacidosis without coma Status: Acute Assessment and Plan: Pt was given IVF bolus and started on infusion Insulin infusion started and Q1H glucose monitoring is being done Serial labs ordered Replace electrolytes as needed Her anion gap is closed. We will transition to subcutaneous insulin Trial of clear liquid diet and advance as tolerated Dietitian and senior health educator consult (2) Abnormal thyroid blood test: Code(s): R79.89 - Other specified abnormal findings of blood chemistry Status: Acute Assessment and Plan: Patient states that she was evaluated for hypothyroidism many years ago is and at that time it was just monitored and no treatment was done. Patient was unable to give me any further details about where she was tested and what exactly with test results. Her TSH was low at less than 0.015, free T4 was elevated at 6.3 suggestive of hyperthyroidism Check free T3 Check thyroid ultrasound Check test P.o. atenolol (3) Gastroparesis: Code(s): K31.84 - Gastroparesis Status: Acute Assessment and Plan: Continue regular (4) Abdominal pain: Code(s): R10.9 - Unspecified abdominal pain Status: Acute Assessment and Plan: Can be secondary to nausea vomiting and retching. Patient had CT done early this month which did show infectious inflammatory colitis Patient denies any diarrhea at this time Lipase was neg CT abdomen was unremarkable (5) Sinus tachycardia: Code(s): R00.0 - Tachycardia, unspecified Status: Acute Assessment and Plan: Sinus tachycardia in the monitor. Could be secondary to DKA and hypovolemia or hyperthyroidism IV labetalol for hypertension P.o. atenolol Thyroid testing as below (6) Hypertension: Code(s): I10 - Essential (primary) hypertension Status: Acute Assessment and Plan: P.r.n. IV labetalol until p.o. intake is stable Plan DVT prophylaxis -SCD Nutrition -trial of clear liquid diet Code Status - Full Code Subjective Date/time seen: 10/18/24 Patient states that she feels better as compared to yesterday but still has nausea. Yesterday a NG tube was placed due to nausea vomiting which she pulled out a short while later. She continues to drink water and then vomit. States the abdominal pain is present but better. Denies any chest pain shortness a breath fever cough. Elevated blood pressure. Sinus tachycardia on telemetry but has improved as compared to yesterday Review of Systems Review of Systems: All systems reviewed & are unremarkable except as noted in HPI and below (HPI) Exam Narrative: General: Pt is alert awake and in NAD Lungs/Chest: Trachea central Clear BS B/L, No crackles or wheezing. Cardiac: RRR. Normal S1 S2. No murmurs Circulation: Pedal pulses are intact and symmetrical. Abdomen: Normal bowel sounds.. Soft. Mild diffuse tenderness to palpation, no guarding or rigidity Extremities: No clubbing, cyanosis or edema. Warm : Christian in place Neurologic: Follows commands. Moves all 4 extremities PERRL AO x3 Skin: No Rash HEENT: No thyromegaly Objective Data Vital Signs Vital Signs: Vital Signs - 24 hr 10/17/24 09:50 10/17/24 10:00 10/17/24 10:00 Temperature Pulse Rate 145 H 117 H 127 H Respiratory Rate 24 H Blood Pressure 163/86 H Pulse Oximetry 100 Oxygen Delivery Fraction of Inspired Oxygen 10/17/24 12:00 10/17/24 12:00 10/17/24 14:00 Temperature 37.5 C Pulse Rate 132 H 129 H 136 H Respiratory Rate 28 H 22 H Blood Pressure 168/88 H 143/65 H Pulse Oximetry 100 100 Oxygen Delivery Fraction of Inspired Oxygen 10/17/24 14:00 10/17/24 16:00 10/17/24 16:00 Temperature 36.9 C Pulse Rate 134 H 141 H 141 H Respiratory Rate 23 H Blood Pressure 166/97 H Pulse Oximetry 100 Oxygen Delivery Fraction of Inspired Oxygen 10/17/24 18:00 10/17/24 18:00 10/17/24 20:00 Temperature 36.9 C Pulse Rate 130 H 133 H 139 H Respiratory Rate 21 H 22 H Blood Pressure 123/86 145/73 H Pulse Oximetry 99 100 Oxygen Delivery Fraction of Inspired Oxygen 10/17/24 20:00 10/17/24 20:00 10/17/24 20:00 Temperature Pulse Rate 136 H 136 H 136 H Respiratory Rate 18 Blood Pressure Pulse Oximetry 96 Oxygen Delivery Room Air Fraction of Inspired Oxygen 10/17/24 20:44 10/17/24 22:00 10/17/24 22:00 Temperature Pulse Rate 130 H 130 H Respiratory Rate 21 H Blood Pressure 175/90 H Pulse Oximetry 98 99 Oxygen Delivery Room Air Fraction of Inspired Oxygen 21 10/18/24 00:00 10/18/24 00:00 10/18/24 00:00 Temperature Pulse Rate 123 H 122 H 122 H Respiratory Rate 17 20 Blood Pressure 116/58 L Pulse Oximetry 95 97 Oxygen Delivery Room Air Fraction of Inspired Oxygen 10/18/24 02:00 10/18/24 02:06 10/18/24 04:00 Temperature 37.2 C Pulse Rate 118 H 118 H 124 H Respiratory Rate 18 18 Blood Pressure 146/80 H 172/86 H Pulse Oximetry 97 98 Oxygen Delivery Fraction of Inspired Oxygen 10/18/24 04:00 10/18/24 04:22 10/18/24 06:05 Temperature Pulse Rate 124 H 119 H 114 H Respiratory Rate 16 20 Blood Pressure 151/93 H Pulse Oximetry 99 97 Oxygen Delivery Room Air Fraction of Inspired Oxygen 10/18/24 06:13 10/18/24 07:59 Temperature 36.4 C Pulse Rate 119 H 126 H Respiratory Rate 18 Blood Pressure 174/82 H Pulse Oximetry 98 Oxygen Delivery Fraction of Inspired Oxygen Intake/Output Intake/Output: Intake & Output 10/15/24 10/16/24 10/17/24 10/18/24 23:59 23:59 23:59 23:59 Intake Total 4996.1 1186.8 Output Total 3700 1200 Balance 1296.1 -13.2 Meds/Results Medications: Active Medications Generic Name Dose Route Start Last Admin Trade Name Freq PRN Reason Stop Dose Admin Dextrose 12.5 gm 10/17/24 00:44 Dextrose 50% 25 Gm/50 Ml Syringe IV PUSH PRN PRN Hypoglycemia Protocol Gabapentin 300 mg 10/17/24 21:00 10/17/24 20:08 Gabapentin 300 Mg Capsule PO 300 mg QHS KARRIE Administration Glucagon 1 mg 10/17/24 00:44 Glucagon For Inj 1 Mg Vial IM PRN PRN Hypoglycemia Protocol Glucose 15 gm 10/17/24 00:44 Glucose Oral Gel 15 Gm Of Glucse In 37.5 Gm Tube PO PRN PRN Hypoglycemia Protocol Dextrose 1,000 mls @ 100 mls/hr 10/17/24 00:44 Dextrose 5% 1,000 Ml IVPB PRN PRN Hypoglycemia Protocol Magnesium Sulfate 2 gm in 50 mls @ 25 mls/hr 10/18/24 07:45 10/18/24 08:05 Magnesium Sulf 2 Gm/Water 50ml IVPB 10/18/24 09:44 25 mls/hr ONCE ONE Administration Insulin Aspart 3 - 6 units 10/18/24 09:00 Insulin Aspart (*Bkc) 100 Units/Ml SUB-Q Q4HR KARRIE Protocol Insulin Glargine 25 units 10/18/24 09:00 10/18/24 08:21 Insulin Glargine (*Bkc) 100 Units/Ml SUB-Q 25 units QAM KARRIE Administration Melatonin 10 mg 10/17/24 07:10 Melatonin 5 Mg Tablet PO HS PRN Insomnia Metoclopramide HCl 10 mg 10/17/24 12:00 10/18/24 06:07 Metoclopramide Hcl Inj 10 Mg/2 Ml Vial IV PUSH 10 mg Q6HR KARRIE Administration Nicotine 1 patch 10/17/24 07:09 Nicotine (*Pbkc) 21 Mg Patch TRANSDERM QAM PRN Nicotine withdrawal Ondansetron HCl 4 mg 10/17/24 09:59 10/18/24 08:18 Ondansetron Inj 4 Mg/2 Ml Vial IV PUSH 4 mg Q4H PRN Administration Nausea And Vomiting Promethazine HCl 25 mg 10/17/24 03:09 10/18/24 03:34 Promethazine Hcl 25 Mg/Ml Ampul IM 25 mg Q6H PRN Administration Nausea And Vomiting Radiology Results: ITS Impressions Chest X-Ray 10/17/24 06:53 IMPRESSION: 1. Normal chest radiograph. Abdomen/Pelvis CT 10/17/24 12:06 IMPRESSION: 1. No acute intra-abdominal/pelvic process. 2. Small sliding-type hiatal hernia. Abdomen X-Ray 10/17/24 14:59 IMPRESSION: 1. Nasogastric tube tip in the stomach. Labs Labs: Laboratory Results - last 24 hr 10/17/24 10/17/24 10/17/24 03:33 06:36 08:57 WBC RBC Hgb Hct MCV MCH MCHC RDW Plt Count MPV Sodium Potassium Chloride Carbon Dioxide Anion Gap BUN Creatinine Estim Creat Clear Calc Estimated GFR Glucose POC Capillary Glucose 294 H Calcium Magnesium Total Bilirubin AST ALT Alkaline Phosphatase Total Protein Albumin Lipase 36 TSH (Reflex) < 0.015 L Free T4 6.30 H 10/17/24 10/17/24 10/17/24 09:47 10:55 11:09 WBC RBC Hgb Hct MCV MCH MCHC RDW Plt Count MPV Sodium 140 Potassium 3.8 Chloride 105 Carbon Dioxide 21 L Anion Gap 14 H BUN 15 Creatinine 0.56 L Estim Creat Clear Calc 100 Estimated GFR > 60 Glucose 205 H POC Capillary Glucose 260 H 212 H Calcium 9.7 Magnesium Total Bilirubin AST ALT Alkaline Phosphatase Total Protein Albumin Lipase TSH (Reflex) Free T4 10/17/24 10/17/24 10/17/24 12:15 12:59 14:03 WBC RBC Hgb Hct MCV MCH MCHC RDW Plt Count MPV Sodium Potassium Chloride Carbon Dioxide Anion Gap BUN Creatinine Estim Creat Clear Calc Estimated GFR Glucose POC Capillary Glucose 160 H 211 H 292 H Calcium Magnesium Total Bilirubin AST ALT Alkaline Phosphatase Total Protein Albumin Lipase TSH (Reflex) Free T4 10/17/24 10/17/24 10/17/24 15:06 15:52 16:54 WBC RBC Hgb Hct MCV MCH MCHC RDW Plt Count MPV Sodium Potassium Chloride Carbon Dioxide Anion Gap BUN Creatinine Estim Creat Clear Calc Estimated GFR Glucose POC Capillary Glucose 286 H 288 H 276 H Calcium Magnesium Total Bilirubin AST ALT Alkaline Phosphatase Total Protein Albumin Lipase TSH (Reflex) Free T4 10/17/24 10/17/24 10/17/24 18:01 18:58 19:58 WBC RBC Hgb Hct MCV MCH MCHC RDW Plt Count MPV Sodium Potassium Chloride Carbon Dioxide Anion Gap BUN Creatinine Estim Creat Clear Calc Estimated GFR Glucose POC Capillary Glucose 226 H 181 H 249 H Calcium Magnesium Total Bilirubin AST ALT Alkaline Phosphatase Total Protein Albumin Lipase TSH (Reflex) Free T4 10/17/24 10/17/24 10/17/24 20:42 21:03 21:05 WBC RBC Hgb Hct MCV MCH MCHC RDW Plt Count MPV Sodium 137 Cancelled Potassium 4.1 Cancelled Chloride 102 Cancelled Carbon Dioxide 19 L Cancelled Anion Gap 16 H Cancelled BUN 11 Cancelled Creatinine 0.50 L Cancelled Estim Creat Clear Calc 111 Cancelled Estimated GFR > 60 Cancelled Glucose 267 H Cancelled POC Capillary Glucose 270 H Calcium 9.3 Cancelled Magnesium Total Bilirubin AST ALT Alkaline Phosphatase Total Protein Albumin Lipase TSH (Reflex) Free T4 10/17/24 10/17/24 10/17/24 21:58 23:20 23:58 WBC RBC Hgb Hct MCV MCH MCHC RDW Plt Count MPV Sodium Potassium Chloride Carbon Dioxide Anion Gap BUN Creatinine Estim Creat Clear Calc Estimated GFR Glucose POC Capillary Glucose 263 H 221 H 228 H Calcium Magnesium Total Bilirubin AST ALT Alkaline Phosphatase Total Protein Albumin Lipase TSH (Reflex) Free T4 10/18/24 10/18/24 10/18/24 00:56 01:58 02:58 WBC RBC Hgb Hct MCV MCH MCHC RDW Plt Count MPV Sodium Potassium Chloride Carbon Dioxide Anion Gap BUN Creatinine Estim Creat Clear Calc Estimated GFR Glucose POC Capillary Glucose 229 H 202 H 207 H Calcium Magnesium Total Bilirubin AST ALT Alkaline Phosphatase Total Protein Albumin Lipase TSH (Reflex) Free T4 10/18/24 10/18/24 10/18/24 03:39 04:13 04:56 WBC 9.5 RBC 3.46 L Hgb 9.0 L Hct 27.4 L MCV 79.2 L MCH 26.0 MCHC 32.8 RDW 16.0 H Plt Count 260 MPV 10.2 Sodium 137 Potassium 3.8 Chloride 102 Carbon Dioxide 25 Anion Gap 10 BUN 10 Creatinine 0.49 L Estim Creat Clear Calc 113 Estimated GFR > 60 Glucose 213 H POC Capillary Glucose 199 H 219 H Calcium 9.4 Magnesium 1.5 L Total Bilirubin 1.0 AST 34 ALT 21 Alkaline Phosphatase 65 Total Protein 6.0 L Albumin 3.4 L Lipase TSH (Reflex) Free T4 10/18/24 10/18/24 10/18/24 06:01 07:02 07:36 WBC RBC Hgb Hct MCV MCH MCHC RDW Plt Count MPV Sodium 135 L Potassium 4.1 Chloride 100 Carbon Dioxide 22 Anion Gap 13 H BUN 7 Creatinine 0.47 L Estim Creat Clear Calc 117 Estimated GFR > 60 Glucose 282 H POC Capillary Glucose 249 H 279 H Calcium 9.2 Magnesium Total Bilirubin AST ALT Alkaline Phosphatase Total Protein Albumin Lipase TSH (Reflex) Free T4 10/18/24 08:00 WBC RBC Hgb Hct MCV MCH MCHC RDW Plt Count MPV Sodium Potassium Chloride Carbon Dioxide Anion Gap BUN Creatinine Estim Creat Clear Calc Estimated GFR Glucose POC Capillary Glucose 293 H Calcium Magnesium Total Bilirubin AST ALT Alkaline Phosphatase Total Protein Albumin Lipase TSH (Reflex) Free T4 Quality VTE Prophylaxis VTE prophylaxis: mechanical ordered
[2024-10-18 09:54] LABS: Glucose Point of Care 243 mg/dl (65-105)
[2024-10-18] MEDS: atenoloL 50 MG TABLET PO (10:42)
[2024-10-18 10:46] LABS: Glucose Point of Care 246 mg/dl (65-105)
[2024-10-18 11:19] LABS: Pregnancy On Board Control Positive; Urine Pregnancy Test Negative
[2024-10-18 11:23] LABS: Glucose Point of Care 232 mg/dl (65-105)
[2024-10-18] MEDS: INSULIN ASPART (*BKC) 100 UNITS/ML SUB-Q ×2 (11:25→17:20)
[2024-10-18] MEDS: MORPHINE SULFATE (*CRX) 2 MG/ML INJ IV PUSH ×2 (12:57→16:05)
--- NOTE | 2024-10-18 15:15 | PC.NURSE ---
Patient transferred to IMU room 213. All belongings brought with patient to receiving unit. Report given at bedside to Vidal RN.
--- NOTE | 2024-10-18 15:27 | PC.NURSE ---
This patient, Tara Hinkle, was received from ICU 7 on 10/18/24 at 1445. Patient/family oriented to unit policies and routines. Personal belongings with pt at bedside. Pt resting in bed with bed locked, call light in reach and side rails up. Lucero Devlin RN
[2024-10-18 16:24] LABS: Glucose Point of Care 202 mg/dl (65-105)
[2024-10-18] MEDS: GABAPENTIN 300 MG CAPSULE PO (20:37)
[2024-10-18] MEDS: MELATONIN 5 MG TABLET 10 MG PO (20:37)
[2024-10-18 21:42] LABS: Glucose Point of Care 184 mg/dl (65-105)
[2024-10-19] VITALS (14 sets, daily range): BP systolic 121–163; BP diastolic 56–92; PULSE 90–110; RESP 12–16; TEMP 36.4–36.8; O2SAT 96–100; BMI 22.6
[2024-10-19] MEDS: CALCIUM CARBONATE (TUMS) 500 MG (200 MG ELEMENTAL) PO ×3 (00:24→20:11)
[2024-10-19 01:18] LABS: Glucose Point of Care 248 mg/dl (65-105)
[2024-10-19] MEDS: INSULIN ASPART (*BKC) 100 UNITS/ML SUB-Q ×3 (01:20→08:26)
[2024-10-19] MEDS: PROMETHAZINE HCL 25 MG/ML AMPUL IM ×3 (02:09→20:11)
[2024-10-19] MEDS: ONDANSETRON INJ 4 MG/2 ML VIAL IV PUSH (03:49)
[2024-10-19 04:53] LABS: Hematocrit 36.2 % (37.0-47.0); Hemoglobin 11.7 g/dL (12.0-15.0); Mean Corpuscular HGB Conc 32.3 g/dl (32-36); Mean Corpuscular Hemoglobin 25.5 pg (26-34); Platelet Count Result 298 k/mm3 (150-375); Red Blood Count 4.58 M/mm3 (4.2-5.4)
[2024-10-19 05:10] LABS: Alanine Aminotransferase 28 U/L (6-35); Albumin Level 4.2 g/dL (3.5-5.1); Alkaline Phosphatase 87 U/L (38-126); Anion Gap 23 mmol/L (4-12); Aspartate Amino Transferase 39 U/L (14-36); Bilirubin,Total 1.3 mg/dL (0.2-1.3); Blood Urea Nitrogen 15 mg/dL (7-17); Calcium 10.2 mg/dL (8.4-10.2); Carbon Dioxide 18 mmol/L (22-30); Chloride 92 mmol/L (98-107); Estimated CRCL calculation 90 ml/min; Estimated Glomerular Filt Rate > 60; Glucose 276 mg/dL (65-110); Magnesium 1.6 mg/dL (1.6-2.3); Sodium 133 mmol/L (137-145)
[2024-10-19] MEDS: METOCLOPRAMIDE HCL INJ 10 MG/2 ML VIAL IV PUSH ×3 (05:23→17:11)
[2024-10-19] MEDS: MORPHINE SULFATE (*CRX) 2 MG/ML INJ IV PUSH ×2 (06:49→14:16)
[2024-10-19] MEDS: SODIUM CHLORIDE 0.9% IV 1,000 ML 999 ML IV CONT (06:50)
[2024-10-19 07:24] LABS: Glucose Point of Care 211 mg/dl (65-105)
--- NOTE | 2024-10-19 08:22 | PC.NURSE ---
Addendum entered by Snow Saha RN 10/19/24 08:31: make pt NPO in case she needs to be moved back to ICU for the insulin gtt. Original Note: spoke with Dr. Muir regarding pt's anion gap of 23. New order to recheck BMP, give sliding scale insulin and lantus insulin now, also resume IVF NS @ 100ml/hr
[2024-10-19] MEDS: atenoloL 50 MG TABLET PO (08:27)
[2024-10-19] MEDS: INSULIN GLARGINE (*BKC) 100 UNITS/ML 25 UNITS SUB-Q (08:27)
[2024-10-19] MEDS: SODIUM CHLORIDE 0.9% IV 1,000 ML 100 ML IV CONT ×2 (08:29→18:41)
--- NOTE | 2024-10-19 09:13 | P.PNIM_ITS ---
Progress Note: A&P Assessment and Plan (1) DKA (diabetic ketoacidosis): Code(s): E11.10 - Type 2 diabetes mellitus with ketoacidosis without coma Status: Acute (2) Abnormal thyroid blood test: Code(s): R79.89 - Other specified abnormal findings of blood chemistry Status: Acute (3) Gastroparesis: Code(s): K31.84 - Gastroparesis Status: Acute Assessment and Plan: Continue regular (4) Abdominal pain: Code(s): R10.9 - Unspecified abdominal pain Status: Acute (5) Sinus tachycardia: Code(s): R00.0 - Tachycardia, unspecified Status: Acute (6) Hypertension: Code(s): I10 - Essential (primary) hypertension Status: Acute Plan This is a 39-year-old female with a past medical history type 1 diabetes mellitus since age 7, diabetic gastroparesis, diabetic neuropathy, bipolar disorder, GERD, migraines and cannabis hyperemesis syndrome who presented to the ER with nausea vomiting and abdominal pain. Patient's symptoms have been on since the but acutely worsened on the day of admission. She reports that she has been using her insulin as prescribed but her sugars have been higher than usual running in the 2-300 range. She reports feeling significantly nauseous and having vomiting. Nursing staff noted the patient had been forcing emesis. The patient has continued to smoke marijuana. But she reports that she quit drinking alcohol altogether 6 months ago. She was having left lower and middle abdominal pain. She thought it may be due to ?gallbladder issues that she had had in the past?. In the ER she was afebrile but tachycardic with heart rates in the 130s to 150s range. She received 30 mL/kilos bolus with normal saline initially. Initial blood pressures were high in the 180 systolic but have come down into a more normal range. She is noted to be tachypneic and was found to be ketotic. ABG demonstrated significant respiratory alkalosis with acute metabolic acidosis. Initial serum bicarb was 17. And initial anion gap was 22. Patient was started on insulin drip and was admitted to the ICU. Gap was closed and was transition to subcu insulin. Her TSH came back less than 0.015 for which thyroid ultra sound was performed which showed Heterogenous echotexture with increased vascular flow throughout the entirety of the thyroid gland. Transferred out of the ICU on 10/18/2024 Labs with worsening acidosis 10/19/2024 started on ivf and lantus 25 units daily Acute DKA Type 1 diabetes since age [address] negative for any acute intra-abdominal pelvic process. Small sliding type hiatal hernia noted NG tube was placed at high. Lipase was negative CT earlier this month showed some infectious inflammatory colitis. TSH was less than 0.015 Sinus tachycardia Gastroparesis chronic on Reglan Cannabis Hyperemesis syndrome Migraine GERD Bipolar disorder Diabetic neuropathy DVT prophylaxis -SCD Nutrition -trial of clear liquid diet Code Status - Full Code Subjective Date/time seen: 10/19/24 09:13 Interval history: Still feels nauseous diffuse abdominal pain. No diarrhea. Review of Systems Review of Systems: All systems reviewed & are unremarkable except as noted in HPI and below (HPI) Exam Narrative: General: Pt is alert awake and nauseous Lungs/Chest: Trachea central Clear BS B/L, No crackles or wheezing. Cardiac: RRR. Normal S1 S2. No murmurs Circulation: Pedal pulses are intact and symmetrical. Abdomen: Normal bowel sounds.. Soft. Mild diffuse tenderness to palpation, no guarding or rigidity Extremities: No clubbing, cyanosis or edema. Warm : Christian in place Neurologic: Follows commands. Moves all 4 extremities PERRL AO x3 Skin: No Rash HEENT: No thyromegaly Objective Data Vital Signs Vital Signs: Vital Signs - 24 hr 10/18/24 10:00 10/18/24 10:00 10/18/24 10:42 Temperature 98.4 F Pulse Rate 112 H 121 H 117 H Respiratory Rate 23 H Blood Pressure 169/90 H Pulse Oximetry 99 Oxygen Delivery 10/18/24 12:00 10/18/24 12:00 10/18/24 12:56 Temperature 98.1 F Pulse Rate 97 97 96 Respiratory Rate 23 H 18 Blood Pressure 155/91 H 155/91 H Pulse Oximetry 99 100 Oxygen Delivery 10/18/24 14:00 10/18/24 14:00 10/18/24 14:45 Temperature 97.7 F Pulse Rate 91 91 91 Respiratory Rate 23 H 14 Blood Pressure 146/76 H 162/87 H Pulse Oximetry 99 97 Oxygen Delivery 10/18/24 16:00 10/18/24 16:00 10/18/24 16:22 Temperature 97.9 F Pulse Rate 91 91 Respiratory Rate 12 Blood Pressure 145/69 H Pulse Oximetry 100 Oxygen Delivery Room Air 10/18/24 18:00 10/18/24 20:00 10/18/24 20:00 Temperature 98.2 F Pulse Rate 90 90 Respiratory Rate 14 Blood Pressure 153/86 H Pulse Oximetry 95 Oxygen Delivery Room Air 10/18/24 20:00 10/19/24 00:00 10/19/24 00:00 Temperature 98.2 F Pulse Rate 91 91 Respiratory Rate 16 Blood Pressure 159/86 H Pulse Oximetry 97 Oxygen Delivery Room Air 10/19/24 00:00 10/19/24 03:38 10/19/24 04:00 Temperature Pulse Rate 93 96 Respiratory Rate Blood Pressure Pulse Oximetry Oxygen Delivery Room Air 10/19/24 04:00 10/19/24 07:40 10/19/24 08:27 Temperature 97.5 F L 98.1 F Pulse Rate 97 105 H 110 H Respiratory Rate 16 12 Blood Pressure 139/87 163/92 H Pulse Oximetry 99 99 Oxygen Delivery Intake/Output Intake/Output: Intake & Output 10/16/24 10/17/24 10/18/24 10/19/24 23:59 23:59 23:59 23:59 Intake Total 4996.1 2512.2 200 Output Total 3700 4250 150 Balance 1296.1 -1737.8 50 Meds/Results Medications: Active Medications Generic Name Dose Route Start Last Admin Trade Name Freq PRN Reason Stop Dose Admin Atenolol 50 mg 10/18/24 09:45 10/19/24 08:27 Atenolol 50 Mg Tablet PO 50 mg DAILY KARRIE Administration Calcium Carbonate 200 mg 10/19/24 00:12 10/19/24 06:57 Calcium Carbonate (Tums) 500 Mg (200 Mg Elemental) PO 200 mg Q6H PRN Administration Indigestion Dextrose 12.5 gm 10/17/24 00:44 Dextrose 50% 25 Gm/50 Ml Syringe IV PUSH PRN PRN Hypoglycemia Protocol Gabapentin 300 mg 10/17/24 21:00 10/18/24 20:37 Gabapentin 300 Mg Capsule PO 300 mg QHS KARRIE Administration Glucagon 1 mg 10/17/24 00:44 Glucagon For Inj 1 Mg Vial IM PRN PRN Hypoglycemia Protocol Glucose 15 gm 10/17/24 00:44 Glucose Oral Gel 15 Gm Of Glucse In 37.5 Gm Tube PO PRN PRN Hypoglycemia Protocol Dextrose 1,000 mls @ 100 mls/hr 10/17/24 00:44 Dextrose 5% 1,000 Ml IVPB PRN PRN Hypoglycemia Protocol Sodium Chloride 1,000 mls @ 100 mls/hr 10/19/24 08:25 10/19/24 08:29 Normal Saline Iv IV CONT 100 mls/hr .Q10H KARRIE Administration Insulin Aspart 3 - 6 units 10/18/24 09:00 10/19/24 08:26 Insulin Aspart (*Bkc) 100 Units/Ml SUB-Q 3 units Q4HR KARRIE Administration Protocol Insulin Glargine 25 units 10/18/24 09:00 10/19/24 08:27 Insulin Glargine (*Bkc) 100 Units/Ml SUB-Q 25 units QAM KARRIE Administration Labetalol HCl 20 mg 10/18/24 09:31 Labetalol Hcl Inj 100 Mg/20 Ml Vial IV PUSH Q4H PRN SBP > 160 and HR> 60 -1st choice Melatonin 10 mg 10/17/24 07:10 10/18/24 20:37 Melatonin 5 Mg Tablet PO 10 mg HS PRN Administration Insomnia Metoclopramide HCl 10 mg 10/17/24 12:00 10/19/24 05:23 Metoclopramide Hcl Inj 10 Mg/2 Ml Vial IV PUSH 10 mg Q6HR KARRIE Administration Morphine Sulfate 2 mg 10/18/24 12:29 10/19/24 06:49 Morphine Sulfate (*Crx) 2 Mg/Ml Inj IV PUSH 2 mg Q3H PRN Administration Pain Rated 7-10 Nicotine 1 patch 10/17/24 07:09 Nicotine (*Pbkc) 21 Mg Patch TRANSDERM QAM PRN Nicotine withdrawal Ondansetron HCl 4 mg 10/17/24 09:59 10/19/24 03:49 Ondansetron Inj 4 Mg/2 Ml Vial IV PUSH 4 mg Q4H PRN Administration Nausea And Vomiting Promethazine HCl 25 mg 10/17/24 03:09 10/19/24 02:09 Promethazine Hcl 25 Mg/Ml Ampul IM 25 mg Q6H PRN Administration Nausea And Vomiting Radiology Results: ITS Impressions Chest X-Ray 10/17/24 06:53 IMPRESSION: 1. Normal chest radiograph. Abdomen/Pelvis CT 10/17/24 12:06 IMPRESSION: 1. No acute intra-abdominal/pelvic process. 2. Small sliding-type hiatal hernia. Abdomen X-Ray 10/17/24 14:59 IMPRESSION: 1. Nasogastric tube tip in the stomach. Thyroid Ultrasound 10/18/24 22:58 IMPRESSION: Heterogeneous echotexture with increased vascular flow throughout the entirety of the thyroid gland. Labs Labs: Laboratory Results - last 24 hr 10/18/24 10/18/24 10/18/24 03:36 09:45 09:56 WBC RBC Hgb Hct MCV MCH MCHC RDW Plt Count MPV Sodium Potassium Chloride Carbon Dioxide Anion Gap BUN Creatinine Estim Creat Clear Calc Estimated GFR Glucose POC Capillary Glucose 243 H Calcium Magnesium Total Bilirubin AST ALT Alkaline Phosphatase Total Protein Albumin Free T3 pg/mL 11.90 H Urine Test Negative 10/18/24 10/18/24 10/18/24 10:37 11:20 16:20 WBC RBC Hgb Hct MCV MCH MCHC RDW Plt Count MPV Sodium Potassium Chloride Carbon Dioxide Anion Gap BUN Creatinine Estim Creat Clear Calc Estimated GFR Glucose POC Capillary Glucose 246 H 232 H 202 H Calcium Magnesium Total Bilirubin AST ALT Alkaline Phosphatase Total Protein Albumin Free T3 pg/mL Urine Test 10/18/24 10/19/24 10/19/24 20:34 00:02 04:25 WBC 9.0 RBC 4.58 Hgb 11.7 L Hct 36.2 L MCV 79.0 L MCH 25.5 L MCHC 32.3 RDW 15.0 H Plt Count 298 MPV 10.0 Sodium 133 L Potassium 4.0 Chloride 92 L Carbon Dioxide 18 L Anion Gap 23 H BUN 15 D Creatinine 0.63 L Estim Creat Clear Calc 90 Estimated GFR > 60 Glucose 276 H POC Capillary Glucose 184 H 248 H Calcium 10.2 Magnesium 1.6 Total Bilirubin 1.3 AST 39 H ALT 28 Alkaline Phosphatase 87 Total Protein 8.0 Albumin 4.2 Free T3 pg/mL Urine Test 10/19/24 07:21 WBC RBC Hgb Hct MCV MCH MCHC RDW Plt Count MPV Sodium Potassium Chloride Carbon Dioxide Anion Gap BUN Creatinine Estim Creat Clear Calc Estimated GFR Glucose POC Capillary Glucose 211 H Calcium Magnesium Total Bilirubin AST ALT Alkaline Phosphatase Total Protein Albumin Free T3 pg/mL Urine Test
[2024-10-19 09:19] LABS: Anion Gap 20 mmol/L (4-12); Blood Urea Nitrogen 16 mg/dL (7-17); Calcium 9.3 mg/dL (8.4-10.2); Carbon Dioxide 16 mmol/L (22-30); Chloride 97 mmol/L (98-107); Estimated CRCL calculation 107 ml/min; Estimated Glomerular Filt Rate > 60; Glucose 228 mg/dL (65-110); Potassium 4.4 mmol/L (3.4-5.0); Sodium 133 mmol/L (137-145)
[2024-10-19 10:17] LABS: Beta-Hydroxybutyrate/Acetoacetate 6.42 mmol/L (0.02-0.27)
[2024-10-19] MEDS: PROCHLORPERAZINE EDISYLATE 10 MG/2 ML VIAL IV PUSH ×2 (10:34→18:40)
[2024-10-19] MEDS: PANTOPRAZOLE SODIUM IV 40 MG VIAL IV PUSH ×2 (10:36→20:11)
[2024-10-19 11:20] LABS: Glucose Point of Care 201 mg/dl (65-105)
[2024-10-19 12:37] LABS: Anion Gap 17 mmol/L (4-12); Blood Urea Nitrogen 17 mg/dL (7-17); Calcium 9.4 mg/dL (8.4-10.2); Carbon Dioxide 18 mmol/L (22-30); Chloride 99 mmol/L (98-107); Estimated CRCL calculation 104 ml/min; Estimated Glomerular Filt Rate > 60; Glucose 181 mg/dL (65-110); Sodium 134 mmol/L (137-145)
--- NOTE | 2024-10-19 12:50 | PC.NURSE ---
RN updated Dr. Muir with pt's anion gap of 17, and HCO3 of 18. Since gap is trending down and pt is no longer tachycardic, we will leave her in IMU and recheck a BMP later. Continue IVF and have pt remain NPO. I will place the orders for the blood draws.
[2024-10-19 16:17] LABS: Glucose Point of Care 172 mg/dl (65-105)
[2024-10-19 16:50] LABS: Lactic Acid Reflex 0.7 mmol/L (0.7-2.0)
[2024-10-19 17:14] LABS: Anion Gap 16 mmol/L (4-12); Blood Urea Nitrogen 17 mg/dL (7-17); Calcium 9.3 mg/dL (8.4-10.2); Carbon Dioxide 19 mmol/L (22-30); Chloride 99 mmol/L (98-107); Estimated CRCL calculation 122 ml/min; Estimated Glomerular Filt Rate > 60; Glucose 158 mg/dL (65-110); Potassium 4.5 mmol/L (3.4-5.0); Sodium 134 mmol/L (137-145)
--- NOTE | 2024-10-19 17:39 | PC.NURSE ---
Dr. Muir updated on pt's anion gap of 16 and HCO3 of 19. No new orders at this time.
[2024-10-19] MEDS: GABAPENTIN 300 MG CAPSULE PO (20:11)
[2024-10-19] MEDS: MELATONIN 5 MG TABLET 10 MG PO (20:12)
[2024-10-19 21:13] LABS: Glucose Point of Care 189 mg/dl (65-105)
[2024-10-19 23:55] LABS: Glucose Point of Care 201 mg/dl (65-105)
[2024-10-20] VITALS (17 sets, daily range): BP systolic 137–169; BP diastolic 59–88; PULSE 82–122; RESP 12–18; TEMP 36.3–37; O2SAT 98–100
[2024-10-20] MEDS: METOCLOPRAMIDE HCL INJ 10 MG/2 ML VIAL IV PUSH ×5 (00:31→23:43)
[2024-10-20] MEDS: INSULIN ASPART (*BKC) 100 UNITS/ML SUB-Q ×3 (00:31→07:45)
[2024-10-20] MEDS: PROCHLORPERAZINE EDISYLATE 10 MG/2 ML VIAL IV PUSH ×3 (00:31→16:40)
[2024-10-20] MEDS: MORPHINE SULFATE (*CRX) 2 MG/ML INJ IV PUSH ×4 (01:00→23:46)
[2024-10-20] MEDS: CALCIUM CARBONATE (TUMS) 500 MG (200 MG ELEMENTAL) PO ×2 (04:06→13:10)
[2024-10-20] MEDS: PROMETHAZINE HCL 25 MG/ML AMPUL IM ×2 (04:06→18:01)
[2024-10-20] MEDS: SODIUM CHLORIDE 0.9% IV 1,000 ML 100 ML IV CONT (04:07)
[2024-10-20 04:40] LABS: Hematocrit 36.3 % (37.0-47.0); Hemoglobin 11.3 g/dL (12.0-15.0); Mean Corpuscular HGB Conc 31.1 g/dl (32-36); Mean Corpuscular Hemoglobin 25.4 pg (26-34); Mean Corpuscular Volume 81.6 fl (80-100); Mean Platelet Volume 10.4 fl (7.4-10.4); Platelet Count Result 301 k/mm3 (150-375); Red Blood Count 4.45 M/mm3 (4.2-5.4); Red Cell Distribution Width 14.7 % (11.5-14.5)
[2024-10-20 04:54] LABS: Alanine Aminotransferase 24 U/L (6-35); Albumin Level 3.7 g/dL (3.5-5.1); Alkaline Phosphatase 75 U/L (38-126); Anion Gap 22 mmol/L (4-12); Aspartate Amino Transferase 34 U/L (14-36); Bilirubin,Total 1.1 mg/dL (0.2-1.3); Blood Urea Nitrogen 17 mg/dL (7-17); Calcium 9.4 mg/dL (8.4-10.2); Carbon Dioxide 13 mmol/L (22-30); Chloride 101 mmol/L (98-107); Estimated CRCL calculation 102 ml/min; Estimated Glomerular Filt Rate > 60; Glucose 223 mg/dL (65-110); Magnesium 1.5 mg/dL (1.6-2.3); Potassium 3.9 mmol/L (3.4-5.0); Sodium 136 mmol/L (137-145)
[2024-10-20] MEDS: SODIUM CHLORIDE 0.9% IV 1,000 ML 999 ML IV CONT (06:58)
[2024-10-20 07:26] LABS: Glucose Point of Care 212 mg/dl (65-105)
[2024-10-20] MEDS: PANTOPRAZOLE SODIUM IV 40 MG VIAL IV PUSH ×2 (07:43→20:12)
[2024-10-20] MEDS: INSULIN GLARGINE (*BKC) 100 UNITS/ML 28 UNITS SUB-Q ×2 (07:43→07:49)
[2024-10-20] MEDS: atenoloL 50 MG TABLET PO ×2 (07:57→20:12)
[2024-10-20] MEDS: MAGNESIUM SULF 2 GM/WATER 50ML 2 GM/50 ML BAG IVPB (08:31)
[2024-10-20] MEDS: SODIUM CHLORIDE 0.9% IV 500 ML IV CONT (08:31)
[2024-10-20] MEDS: SODIUM CHLORIDE 0.9% IV 1,000 ML 125 ML IV CONT ×2 (08:32→16:40)
[2024-10-20 10:37] LABS: Anion Gap 15 mmol/L (4-12); Blood Urea Nitrogen 14 mg/dL (7-17); Calcium 8.8 mg/dL (8.4-10.2); Carbon Dioxide 18 mmol/L (22-30); Chloride 105 mmol/L (98-107); Estimated CRCL calculation 122 ml/min; Estimated Glomerular Filt Rate > 60; Glucose 117 mg/dL (65-110); Potassium 3.4 mmol/L (3.4-5.0); Sodium 138 mmol/L (137-145)
--- NOTE | 2024-10-20 11:21 | PC.NURSE ---
Dr. Muir updated with BMP results. stated I will put in some new orders.
[2024-10-20 12:52] LABS: Glucose Point of Care 95 mg/dl (65-105)
--- NOTE | 2024-10-20 13:35 | PM.IMPN ---
Progress Note: A&P Assessment and Plan (1) DKA (diabetic ketoacidosis): Code(s): E11.10 - Type 2 diabetes mellitus with ketoacidosis without coma Status: Acute (2) Abnormal thyroid blood test: Code(s): R79.89 - Other specified abnormal findings of blood chemistry Status: Acute (3) Gastroparesis: Code(s): K31.84 - Gastroparesis Status: Acute Assessment and Plan: Continue regular (4) Abdominal pain: Code(s): R10.9 - Unspecified abdominal pain Status: Acute (5) Sinus tachycardia: Code(s): R00.0 - Tachycardia, unspecified Status: Acute (6) Hypertension: Code(s): I10 - Essential (primary) hypertension Status: Acute Plan This is a 39-year-old female with a past medical history type 1 diabetes mellitus since age 7, diabetic gastroparesis, diabetic neuropathy, bipolar disorder, GERD, migraines and cannabis hyperemesis syndrome who presented to the ER with nausea vomiting and abdominal pain. Patient's symptoms have been on since the but acutely worsened on the day of admission. She reports that she has been using her insulin as prescribed but her sugars have been higher than usual running in the 2-300 range. She reports feeling significantly nauseous and having vomiting. Nursing staff noted the patient had been forcing emesis. The patient has continued to smoke marijuana. But she reports that she quit drinking alcohol altogether 6 months ago. She was having left lower and middle abdominal pain. She thought it may be due to ?gallbladder issues that she had had in the past?. In the ER she was afebrile but tachycardic with heart rates in the 130s to 150s range. She received 30 mL/kilos bolus with normal saline initially. Initial blood pressures were high in the 180 systolic but have come down into a more normal range. She is noted to be tachypneic and was found to be ketotic. ABG demonstrated significant respiratory alkalosis with acute metabolic acidosis. Initial serum bicarb was 17. And initial anion gap was 22. Patient was started on insulin drip and was admitted to the ICU. Gap was closed and was transition to subcu insulin. Her TSH came back less than 0.015 for which thyroid ultrasound was performed which showed Heterogenous echotexture with increased vascular flow throughout the entirety of the thyroid gland. Transferred out of the ICU on 10/18/2024 Labs with worsening acidosis 10/19/2024 started on ivf and lantus 25 units daily Acidosis still on and off issue. Increase Lantus to 28 units daily. Recheck labs to monitor Acute DKA see above Type 1 diabetes since age [address] negative for any acute intra-abdominal pelvic process. Small sliding type hiatal hernia noted NG tube was placed at high. Lipase was negative CT earlier this month showed some infectious inflammatory colitis. TSH was less than 0.015 Hyperthyroidism as indicated by low TSH and elevated T3-T4. Will initiate methimazole. Already on atenolol. 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 Increase atenolol to twice a day Sinus tachycardia Gastroparesis chronic on Reglan Cannabis Hyperemesis syndrome Migraine GERD Bipolar disorder Diabetic neuropathy DVT prophylaxis -SCD Nutrition -trial of clear liquid diet Code Status - Full Code Subjective Date/time seen: 10/20/24 13:35 Interval history: No overnight events. Still complains of diffuse abdominal discomfort along with nausea. Help some with Compazine. Review of Systems Review of Systems: All systems reviewed & are unremarkable except as noted in HPI and below (HPI) Exam Narrative: General: Pt is alert awake not in acute distress Lungs/Chest: Trachea central Clear BS B/L, No crackles or wheezing. Cardiac: RRR. Normal S1 S2. No murmurs Circulation: Pedal pulses are intact and symmetrical. Abdomen: Normal bowel sounds.. Soft. Mild diffuse tenderness to palpation, no guarding or rigidity Extremities: No clubbing, cyanosis or edema. Warm Neurologic: Follows commands. Moves all 4 extremities PERRL AO x3 Skin: No Rash HEENT: No thyromegaly Objective Data Vital Signs Vital Signs: Vital Signs - 24 hr 10/19/24 14:00 10/19/24 15:45 10/19/24 16:00 Temperature 98.3 F Pulse Rate 93 92 92 Respiratory Rate 12 12 Blood Pressure 121/56 L Pulse Oximetry 100 100 Oxygen Delivery Room Air 10/19/24 16:00 10/19/24 18:00 10/19/24 20:00 Temperature Pulse Rate 91 90 Respiratory Rate Blood Pressure Pulse Oximetry 100 Oxygen Delivery Room Air 10/19/24 20:00 10/19/24 20:00 10/19/24 23:39 Temperature 97.9 F Pulse Rate 100 101 H Respiratory Rate 16 Blood Pressure 151/78 H Pulse Oximetry 98 100 Oxygen Delivery Room Air 10/20/24 00:00 10/20/24 00:00 10/20/24 04:00 Temperature 98.0 F Pulse Rate 101 H 106 H Respiratory Rate 16 Blood Pressure 169/84 H Pulse Oximetry 98 100 Oxygen Delivery Room Air 10/20/24 04:00 10/20/24 06:00 10/20/24 07:56 Temperature 98.2 F 97.7 F Pulse Rate 110 H 117 H 114 H Respiratory Rate 18 18 Blood Pressure 166/83 H 158/88 H Pulse Oximetry 100 100 Oxygen Delivery 10/20/24 07:57 10/20/24 08:00 10/20/24 08:00 Temperature Pulse Rate 122 H 114 H 117 H Respiratory Rate 18 Blood Pressure Pulse Oximetry 100 Oxygen Delivery Room Air 10/20/24 10:00 10/20/24 11:32 10/20/24 12:00 Temperature 97.8 F Pulse Rate 96 84 84 Respiratory Rate 14 14 Blood Pressure 137/59 L Pulse Oximetry 99 99 Oxygen Delivery Room Air 10/20/24 12:00 Temperature Pulse Rate 88 Respiratory Rate Blood Pressure Pulse Oximetry Oxygen Delivery Intake/Output Intake/Output: Intake & Output 10/17/24 10/18/24 10/19/24 10/20/24 23:59 23:59 23:59 23:59 Intake Total 4996.1 2512.2 2200 3123.3 Output Total 3700 4250 1600 1350 Balance 1296.1 -1737.8 600 1773.3 Meds/Results Medications: Active Medications Generic Name Dose Route Start Last Admin Trade Name Freq PRN Reason Stop Dose Admin Atenolol 50 mg 10/18/24 09:45 10/20/24 07:57 Atenolol 50 Mg Tablet PO 50 mg DAILY KARRIE Administration Calcium Carbonate 200 mg 10/19/24 00:12 10/20/24 13:10 Calcium Carbonate (Tums) 500 Mg (200 Mg Elemental) PO 200 mg Q6H PRN Administration Indigestion Dextrose 12.5 gm 10/17/24 00:44 Dextrose 50% 25 Gm/50 Ml Syringe IV PUSH PRN PRN Hypoglycemia Protocol Gabapentin 300 mg 10/17/24 21:00 10/19/24 20:11 Gabapentin 300 Mg Capsule PO 300 mg QHS KARRIE Administration Glucagon 1 mg 10/17/24 00:44 Glucagon For Inj 1 Mg Vial IM PRN PRN Hypoglycemia Protocol Glucose 15 gm 10/17/24 00:44 Glucose Oral Gel 15 Gm Of Glucse In 37.5 Gm Tube PO PRN PRN Hypoglycemia Protocol Dextrose 1,000 mls @ 100 mls/hr 10/17/24 00:44 Dextrose 5% 1,000 Ml IVPB PRN PRN Hypoglycemia Protocol Sodium Chloride 1,000 mls @ 125 mls/hr 10/19/24 08:25 10/20/24 08:32 Normal Saline Iv IV CONT 125 mls/hr .Q8H KARRIE Administration Insulin Aspart 3 - 6 units 10/18/24 09:00 10/20/24 12:24 Insulin Aspart (*Bkc) 100 Units/Ml SUB-Q Not Given Q4HR [facility] Protocol Insulin Glargine 28 units 10/20/24 07:30 10/20/24 07:49 Insulin Glargine (*Bkc) 100 Units/Ml SUB-Q 28 units QAM KARRIE Administration Labetalol HCl 20 mg 10/18/24 09:31 Labetalol Hcl Inj 100 Mg/20 Ml Vial IV PUSH Q4H PRN SBP > 160 and HR> 60 -1st choice Melatonin 10 mg 10/17/24 07:10 10/19/24 20:12 Melatonin 5 Mg Tablet PO 10 mg HS PRN Administration Insomnia Metoclopramide HCl 10 mg 10/17/24 12:00 10/20/24 12:29 Metoclopramide Hcl Inj 10 Mg/2 Ml Vial IV PUSH 10 mg Q6HR KARRIE Administration Morphine Sulfate 2 mg 10/18/24 12:29 10/20/24 07:52 Morphine Sulfate (*Crx) 2 Mg/Ml Inj IV PUSH 2 mg Q3H PRN Administration Pain Rated 7-10 Nicotine 1 patch 10/17/24 07:09 Nicotine (*Pbkc) 21 Mg Patch TRANSDERM QAM PRN Nicotine withdrawal Ondansetron HCl 4 mg 10/17/24 09:59 10/19/24 03:49 Ondansetron Inj 4 Mg/2 Ml Vial IV PUSH 4 mg Q4H PRN Administration Nausea And Vomiting Pantoprazole Sodium 40 mg 10/19/24 21:00 10/20/24 07:43 Pantoprazole Sodium Iv 40 Mg Vial IV PUSH 40 mg Q12HR KARRIE Administration Prochlorperazine Edisylate 10 mg 10/19/24 10:03 10/20/24 07:43 Prochlorperazine Edisylate 10 Mg/2 Ml Vial IV PUSH 10 mg Q6H PRN Administration Nausea And Vomiting Promethazine HCl 25 mg 10/17/24 03:09 10/20/24 04:06 Promethazine Hcl 25 Mg/Ml Ampul IM 25 mg Q6H PRN Administration Nausea And Vomiting Radiology Results: ITS Impressions Chest X-Ray 10/17/24 06:53 IMPRESSION: 1. Normal chest radiograph. Abdomen/Pelvis CT 10/17/24 12:06 IMPRESSION: 1. No acute intra-abdominal/pelvic process. 2. Small sliding-type hiatal hernia. Abdomen X-Ray 10/17/24 14:59 IMPRESSION: 1. Nasogastric tube tip in the stomach. Thyroid Ultrasound 10/18/24 22:58 IMPRESSION: Heterogeneous echotexture with increased vascular flow throughout the entirety of the thyroid gland. Labs Labs: Laboratory Results - last 24 hr 10/19/24 10/19/24 10/19/24 16:12 16:19 21:00 WBC RBC Hgb Hct MCV MCH MCHC RDW Plt Count MPV Sodium 134 L Potassium 4.5 Chloride 99 Carbon Dioxide 19 L Anion Gap 16 H BUN 17 Creatinine 0.45 L Estim Creat Clear Calc 122 Estimated GFR > 60 Glucose 158 H POC Capillary Glucose 172 H 189 H Lactic Acid 0.7 Calcium 9.3 Magnesium Total Bilirubin AST ALT Alkaline Phosphatase Total Protein Albumin 10/19/24 10/20/24 10/20/24 23:40 04:25 07:18 WBC 9.0 RBC 4.45 Hgb 11.3 L Hct 36.3 L MCV 81.6 MCH 25.4 L MCHC 31.1 L RDW 14.7 H Plt Count 301 MPV 10.4 Sodium 136 L Potassium 3.9 Chloride 101 Carbon Dioxide 13 L Anion Gap 22 H BUN 17 Creatinine 0.55 L Estim Creat Clear Calc 102 Estimated GFR > 60 Glucose 223 H POC Capillary Glucose 201 H 212 H Lactic Acid Calcium 9.4 Magnesium 1.5 L Total Bilirubin 1.1 AST 34 ALT 24 Alkaline Phosphatase 75 Total Protein 7.0 Albumin 3.7 10/20/24 10/20/24 10:05 11:33 WBC RBC Hgb Hct MCV MCH MCHC RDW Plt Count MPV Sodium 138 Potassium 3.4 Chloride 105 Carbon Dioxide 18 L Anion Gap 15 H BUN 14 Creatinine 0.45 L Estim Creat Clear Calc 122 Estimated GFR > 60 Glucose 117 H POC Capillary Glucose 95 Lactic Acid Calcium 8.8 Magnesium Total Bilirubin AST ALT Alkaline Phosphatase Total Protein Albumin
[2024-10-20] MEDS: methiMAzole 10 MG TAB PO (14:36)
[2024-10-20 16:55] LABS: Glucose Point of Care 92 mg/dl (65-105)
[2024-10-20 16:55] LABS: Glucose Point of Care 57 mg/dl (65-105)
[2024-10-20 18:33] LABS: Anion Gap 12 mmol/L (4-12); Blood Urea Nitrogen 9 mg/dL (7-17); Calcium 8.2 mg/dL (8.4-10.2); Carbon Dioxide 20 mmol/L (22-30); Chloride 98 mmol/L (98-107); Estimated CRCL calculation 129 ml/min; Estimated Glomerular Filt Rate > 60; Glucose 217 mg/dL (65-110); Potassium 3.2 mmol/L (3.4-5.0); Sodium 130 mmol/L (137-145)
--- NOTE | 2024-10-20 18:40 | PC.NURSE ---
Notified Dr. Muir of BMP results. Potassium of 3.2, new order for 40meq IVPB Potassium now.
[2024-10-20] MEDS: POTASSIUM CHLORIDE INJ 40 MEQ in SODIUM CHLORIDE 0.9% IV 500 ML 130 MEQ IVPB (20:10)
[2024-10-20] MEDS: GABAPENTIN 300 MG CAPSULE PO (20:12)
[2024-10-20] MEDS: LABETALOL HCL INJ 100 MG/20 ML VIAL 20 MG IV PUSH (20:22)
[2024-10-20] MEDS: MELATONIN 5 MG TABLET 10 MG PO (20:22)
[2024-10-21] VITALS (14 sets, daily range): BP systolic 107–164; BP diastolic 53–90; PULSE 77–92; RESP 12–16; TEMP 36.2–37.1; O2SAT 95–100
[2024-10-21 00:30] LABS: Glucose Point of Care 169 mg/dl (65-105)
[2024-10-21 00:30] LABS: Glucose Point of Care 120 mg/dl (65-105)
[2024-10-21] MEDS: PROCHLORPERAZINE EDISYLATE 10 MG/2 ML VIAL IV PUSH ×2 (01:36→09:31)
[2024-10-21] MEDS: SODIUM CHLORIDE 0.9% IV 1,000 ML 125 ML IV CONT ×2 (01:37→09:32)
[2024-10-21] MEDS: PROMETHAZINE HCL 25 MG/ML AMPUL IM (05:14)
[2024-10-21] MEDS: METOCLOPRAMIDE HCL INJ 10 MG/2 ML VIAL IV PUSH ×3 (05:14→17:58)
[2024-10-21 05:28] LABS: Glucose Point of Care 69 mg/dl (65-105)
[2024-10-21 05:45] LABS: Hematocrit 30.3 % (37.0-47.0); Hemoglobin 9.9 g/dL (12.0-15.0); Mean Corpuscular HGB Conc 32.7 g/dl (32-36); Mean Corpuscular Hemoglobin 25.3 pg (26-34); Mean Corpuscular Volume 77.5 fl (80-100); Platelet Count Result 264 k/mm3 (150-375); Red Blood Count 3.91 M/mm3 (4.2-5.4); Red Cell Distribution Width 14.4 % (11.5-14.5); White Blood Count 6.5 K/mm3 (4.5-10.0)
[2024-10-21 06:01] LABS: Alanine Aminotransferase 24 U/L (6-35); Albumin Level 2.8 g/dL (3.5-5.1); Alkaline Phosphatase 56 U/L (38-126); Anion Gap 7 mmol/L (4-12); Aspartate Amino Transferase 34 U/L (14-36); Bilirubin,Total 0.9 mg/dL (0.2-1.3); Blood Urea Nitrogen 7 mg/dL (7-17); Calcium 8.7 mg/dL (8.4-10.2); Carbon Dioxide 25 mmol/L (22-30); Chloride 103 mmol/L (98-107); Estimated CRCL calculation 132 ml/min; Estimated Glomerular Filt Rate > 60; Glucose 65 mg/dL (65-110); Magnesium 1.4 mg/dL (1.6-2.3); Potassium 3.1 mmol/L (3.4-5.0); Sodium 135 mmol/L (137-145)
[2024-10-21 06:42] LABS: Glucose Point of Care 145 mg/dl (65-105)
[2024-10-21 06:42] LABS: Glucose Point of Care 95 mg/dl (65-105)
[2024-10-21 08:07] LABS: Glucose Point of Care 130 mg/dl (65-105)
[2024-10-21] MEDS: PANTOPRAZOLE SODIUM IV 40 MG VIAL IV PUSH ×2 (09:31→21:44)
[2024-10-21] MEDS: INSULIN GLARGINE (*BKC) 100 UNITS/ML 26 UNITS SUB-Q (09:31)
[2024-10-21] MEDS: methiMAzole 10 MG TAB PO (09:31)
[2024-10-21] MEDS: atenoloL 50 MG TABLET PO ×2 (09:31→21:44)
[2024-10-21] MEDS: CALCIUM CARBONATE (TUMS) 500 MG (200 MG ELEMENTAL) PO ×2 (09:40→21:53)
--- NOTE | 2024-10-21 12:16 | PC.NURSE ---
Spoke with Dr. Blackmon regarding pt's request I want to try something else. Can I get chicken noodle soup or something more than just this broth. Updated MD on pt's condition and that pt has been tolerating food. New order to change diet to full liquid and AAT to diabetic diet. Also, change accu-checks to ACHS from q4h.
[2024-10-21 13:02] LABS: Glucose Point of Care 155 mg/dl (65-105)
[2024-10-21 16:01] LABS: Glucose Point of Care 185 mg/dl (65-105)
--- NOTE | 2024-10-21 17:01 | PM.IMPN ---
Progress Note: A&P Assessment and Plan (1) DKA (diabetic ketoacidosis): Code(s): E11.10 - Type 2 diabetes mellitus with ketoacidosis without coma Status: Acute (2) Abnormal thyroid blood test: Code(s): R79.89 - Other specified abnormal findings of blood chemistry Status: Acute (3) Gastroparesis: Code(s): K31.84 - Gastroparesis Status: Acute Assessment and Plan: Continue regular (4) Abdominal pain: Code(s): R10.9 - Unspecified abdominal pain Status: Acute (5) Sinus tachycardia: Code(s): R00.0 - Tachycardia, unspecified Status: Acute (6) Hypertension: Code(s): I10 - Essential (primary) hypertension Status: Acute Plan This is a 39-year-old female with a past medical history type 1 diabetes mellitus since age 7, diabetic gastroparesis, diabetic neuropathy, bipolar disorder, GERD, migraines and cannabis hyperemesis syndrome who presented to the ER with nausea vomiting and abdominal pain. Patient's symptoms have been on since the but acutely worsened on the day of admission. She reports that she has been using her insulin as prescribed but her sugars have been higher than usual running in the 2-300 range. She reports feeling significantly nauseous and having vomiting. Nursing staff noted the patient had been forcing emesis. The patient has continued to smoke marijuana. But she reports that she quit drinking alcohol altogether 6 months ago. She was having left lower and middle abdominal pain. She thought it may be due to ?gallbladder issues that she had had in the past?. In the ER she was afebrile but tachycardic with heart rates in the 130s to 150s range. She received 30 mL/kilos bolus with normal saline initially. Initial blood pressures were high in the 180 systolic but have come down into a more normal range. She is noted to be tachypneic and was found to be ketotic. ABG demonstrated significant respiratory alkalosis with acute metabolic acidosis. Initial serum bicarb was 17. And initial anion gap was 22. Patient was started on insulin drip and was admitted to the ICU. Gap was closed and was transition to subcu insulin. Her TSH came back less than 0.015 for which thyroid ultrasound was performed which showed Heterogenous echotexture with increased vascular flow throughout the entirety of the thyroid gland. Transferred out of the ICU on 10/18/2024 Labs with worsening acidosis 10/19/2024 started on ivf and lantus 25 units daily Acidosis still on and off issue. Increase Lantus to 28 units daily. Recheck labs to monitor Acute DKA see above Type 1 diabetes since age [address] negative for any acute intra-abdominal pelvic process. Small sliding type hiatal hernia noted NG tube was placed at high. Lipase was negative CT earlier this month showed some infectious inflammatory colitis. TSH was less than 0.015 Hyperthyroidism as indicated by low TSH and elevated T3-T4. Will initiate methimazole. Already on atenolol. 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 Increase atenolol to twice a day No overnight events. Still complains of diffuse abdominal discomfort along with nausea most likely due to her long standing diabetes gastroparesis as patient is noncompliant with her regimen and smoking marijuana, patient is on Reglan and will add senna to help her with constipation, will advance her diet, her overall symptoms have improved and her DKA has resolved, possibly discharge her tomorrow. Sinus tachycardia Gastroparesis chronic on Reglan Cannabis Hyperemesis syndrome Migraine GERD Bipolar disorder Diabetic neuropathy DVT prophylaxis -SCD Nutrition -trial of clear liquid diet Code Status - Full Code Subjective Date/time seen: 10/21/24 17:01 Interval history: No overnight events. Still complains of diffuse abdominal discomfort along with nausea most likely due to her long standing diabetes gastroparesis as patient is noncompliant with her regimen and smoking marijuana, patient is on Reglan and will add senna to help her with constipation, will advance her diet, her overall symptoms have improved and her DKA has resolved, possibly discharge her tomorrow. Review of Systems Review of Systems: Review of systems were reviewed and addressed as per HPI. All systems reviewed & are unremarkable except as noted in HPI and below (HPI) Exam Narrative: Patient is comfortable, NAD HEENT: eyes are clear and none icteric LUNGS:CTA HEART: RR S1S2 ABD: BS+, Soft and nontender Lower extremities: no edema SKIN: nonjaundiced Neuro: grossly intact. Objective Data Vital Signs Vital Signs: Vital Signs - 24 hr 10/20/24 18:00 10/20/24 20:00 10/20/24 20:12 Temperature Pulse Rate 83 89 82 Respiratory Rate Blood Pressure Pulse Oximetry Oxygen Delivery 10/20/24 20:22 10/20/24 20:47 10/20/24 22:00 Temperature 37.0 C Pulse Rate 93 98 89 Respiratory Rate 12 Blood Pressure 167/75 H Pulse Oximetry 99 Oxygen Delivery 10/21/24 00:00 10/21/24 00:00 10/21/24 02:00 Temperature 36.6 C Pulse Rate 88 86 78 Respiratory Rate 12 Blood Pressure 164/83 H Pulse Oximetry 100 Oxygen Delivery 10/21/24 04:00 10/21/24 04:24 10/21/24 06:00 Temperature 37.0 C Pulse Rate 82 81 79 Respiratory Rate 12 Blood Pressure 107/53 L Pulse Oximetry 98 Oxygen Delivery 10/21/24 07:55 10/21/24 08:00 10/21/24 08:00 Temperature 36.7 C Pulse Rate 91 92 91 Respiratory Rate 14 14 Blood Pressure 135/59 L Pulse Oximetry 98 98 Oxygen Delivery Room Air 10/21/24 09:31 10/21/24 10:00 10/21/24 11:28 Temperature 37.1 C Pulse Rate 92 88 82 Respiratory Rate 16 Blood Pressure 128/71 Pulse Oximetry 97 Oxygen Delivery 10/21/24 12:00 10/21/24 12:00 10/21/24 15:54 Temperature 36.7 C Pulse Rate 82 81 77 Respiratory Rate 16 14 Blood Pressure 143/90 H Pulse Oximetry 97 100 Oxygen Delivery Room Air Intake/Output Intake/Output: Intake & Output 10/18/24 10/19/24 10/20/24 10/21/24 23:59 23:59 23:59 23:59 Intake Total 2512.2 2200 4363.3 2899.6 Output Total 4250 1600 2150 2775 Balance -1737.8 600 2213.3 124.6 Meds/Results Medications: Active Medications Generic Name Dose Route Start Last Admin Trade Name Freq PRN Reason Stop Dose Admin Hydrocodone Bitart/Acetaminophen 1 tab 10/21/24 13:43 Hydrocodone/Acetaminophen (*Crx) 5-325 Mg Tablet PO Q6H PRN Pain Rated 4-6 Al Hydrox/Mg Hydrox/Simethicone 10 ml 10/21/24 14:07 Mag Hydrox/Al Hydrox/Simeth 30 Ml Udc PO TID PRN indigestion Atenolol 50 mg 10/20/24 21:00 10/21/24 09:31 Atenolol 50 Mg Tablet PO 50 mg Q12H KARRIE Administration Calcium Carbonate 200 mg 10/19/24 00:12 10/21/24 09:40 Calcium Carbonate (Tums) 500 Mg (200 Mg Elemental) PO 200 mg Q6H PRN Administration Indigestion Dextrose 12.5 gm 10/17/24 00:44 Dextrose 50% 25 Gm/50 Ml Syringe IV PUSH PRN PRN Hypoglycemia Protocol Dicyclomine HCl 20 mg 10/21/24 13:43 Dicyclomine Hcl 10 Mg Capsule PO QID PRN Abdominal Cramping Folic Acid 1 mg 10/22/24 09:00 Folic Acid 1 Mg Tablet PO DAILY KARRIE Gabapentin 300 mg 10/17/24 21:00 10/20/24 20:12 Gabapentin 300 Mg Capsule PO 300 mg QHS KARRIE Administration Glucagon 1 mg 10/17/24 00:44 Glucagon For Inj 1 Mg Vial IM PRN PRN Hypoglycemia Protocol Glucose 15 gm 10/17/24 00:44 Glucose Oral Gel 15 Gm Of Glucse In 37.5 Gm Tube PO PRN PRN Hypoglycemia Protocol Dextrose 1,000 mls @ 100 mls/hr 10/17/24 00:44 Dextrose 5% 1,000 Ml IVPB PRN PRN Hypoglycemia Protocol Sodium Chloride 1,000 mls @ 125 mls/hr 10/19/24 08:25 10/21/24 09:32 Normal Saline Iv IV CONT 125 mls/hr .Q8H KARRIE Administration Insulin Aspart 3 - 6 units 10/21/24 17:00 10/21/24 16:02 Insulin Aspart (*Bkc) 100 Units/Ml SUB-Q Not Given TIDWM [facility] Protocol Insulin Glargine 26 units 10/21/24 09:00 10/21/24 09:31 Insulin Glargine (*Bkc) 100 Units/Ml SUB-Q 26 units QAM KARRIE Administration Labetalol HCl 20 mg 10/18/24 09:31 10/20/24 20:22 Labetalol Hcl Inj 100 Mg/20 Ml Vial IV PUSH 20 mg Q4H PRN Administration SBP > 160 and HR> 60 -1st choice Melatonin 10 mg 10/17/24 07:10 10/20/24 20:22 Melatonin 5 Mg Tablet PO 10 mg HS PRN Administration Insomnia Methimazole 10 mg 10/20/24 13:40 10/21/24 09:31 Methimazole 10 Mg Tab PO 10 mg DAILY [facility] Administration Metoclopramide HCl 10 mg 10/17/24 12:00 10/21/24 11:50 Metoclopramide Hcl Inj 10 Mg/2 Ml Vial IV PUSH 10 mg Q6HR KARRIE Administration Multivitamins Therapeutic 1 tablet 10/22/24 09:00 Multivitamins Therapeutic Tab (*Bkc) PO DAILY [facility] Nicotine 1 patch 10/17/24 07:09 Nicotine (*Pbkc) 21 Mg Patch TRANSDERM QAM PRN Nicotine withdrawal Ondansetron HCl 4 mg 10/17/24 09:59 10/19/24 03:49 Ondansetron Inj 4 Mg/2 Ml Vial IV PUSH 4 mg Q4H PRN Administration Nausea And Vomiting Pantoprazole Sodium 40 mg 10/19/24 21:00 10/21/24 09:31 Pantoprazole Sodium Iv 40 Mg Vial IV PUSH 40 mg Q12HR [facility] Administration Prochlorperazine Edisylate 10 mg 10/19/24 10:03 10/21/24 09:31 Prochlorperazine Edisylate 10 Mg/2 Ml Vial IV PUSH 10 mg Q6H PRN Administration Nausea And Vomiting Promethazine HCl 25 mg 10/17/24 03:09 10/21/24 05:14 Promethazine Hcl 25 Mg/Ml Ampul IM 25 mg Q6H PRN Administration Nausea And Vomiting Senna/Docusate Sodium 1 tab 10/21/24 21:00 Senna/Docusate Sodium Tablet PO [facility] Vitamin D 1,000 units 10/22/24 09:00 Cholecalciferol 1,000 Units Tablet PO DAILY [facility] Radiology Results: ITS Impressions Chest X-Ray 10/17/24 06:53 IMPRESSION: 1. Normal chest radiograph. Abdomen/Pelvis CT 10/17/24 12:06 IMPRESSION: 1. No acute intra-abdominal/pelvic process. 2. Small sliding-type hiatal hernia. Abdomen X-Ray 10/17/24 14:59 IMPRESSION: 1. Nasogastric tube tip in the stomach. Thyroid Ultrasound 10/18/24 22:58 IMPRESSION: Heterogeneous echotexture with increased vascular flow throughout the entirety of the thyroid gland. Labs Labs: Laboratory Results - last 24 hr 10/20/24 10/20/24 10/21/24 18:14 20:13 00:27 WBC RBC Hgb Hct MCV MCH MCHC RDW Plt Count MPV Sodium 130 L Potassium 3.2 L Chloride 98 Carbon Dioxide 20 L Anion Gap 12 BUN 9 D Creatinine 0.42 L Estim Creat Clear Calc 129 Estimated GFR > 60 Glucose 217 H POC Capillary Glucose 169 H 120 H Calcium 8.2 L Magnesium Total Bilirubin AST ALT Alkaline Phosphatase Total Protein Albumin 10/21/24 10/21/24 10/21/24 05:05 05:16 05:48 WBC 6.5 RBC 3.91 L Hgb 9.9 L Hct 30.3 L MCV 77.5 L D MCH 25.3 L MCHC 32.7 RDW 14.4 Plt Count 264 MPV 10.0 Sodium 135 L Potassium 3.1 L Chloride 103 Carbon Dioxide 25 Anion Gap 7 BUN 7 Creatinine 0.41 L Estim Creat Clear Calc 132 Estimated GFR > 60 Glucose 65 POC Capillary Glucose 69 95 Calcium 8.7 Magnesium 1.4 L Total Bilirubin 0.9 AST 34 ALT 24 Alkaline Phosphatase 56 Total Protein 6.0 L Albumin 2.8 L 10/21/24 10/21/24 10/21/24 06:39 07:57 11:30 WBC RBC Hgb Hct MCV MCH MCHC RDW Plt Count MPV Sodium Potassium Chloride Carbon Dioxide Anion Gap BUN Creatinine Estim Creat Clear Calc Estimated GFR Glucose POC Capillary Glucose 145 H 130 H 155 H Calcium Magnesium Total Bilirubin AST ALT Alkaline Phosphatase Total Protein Albumin 10/21/24 15:55 WBC RBC Hgb Hct MCV MCH MCHC RDW Plt Count MPV Sodium Potassium Chloride Carbon Dioxide Anion Gap BUN Creatinine Estim Creat Clear Calc Estimated GFR Glucose POC Capillary Glucose 185 H Calcium Magnesium Total Bilirubin AST ALT Alkaline Phosphatase Total Protein Albumin Quality VTE Prophylaxis VTE prophylaxis: mechanical ordered
--- NOTE | 2024-10-21 17:22 | PC.NURSE ---
This patient, Tara Hinkle, was transferred to [300 ] on 10/21/24 at 1722. Personal belongings sent with patient. Report given to [LAZ Mckeon [id number] ]. Appropriate documentation sent with patient.
--- NOTE | 2024-10-21 17:46 | PC.NURSE ---
This patient, Tara Hinkle, was received from [facility] on 10/21/24 at 1746. Patient/family oriented to unit policies and routines
[2024-10-21] MEDS: POTASSIUM CHLORIDE 20 MEQ PACKET (FOR LIQUID) 40 MEQ PO (17:59)
[2024-10-21] MEDS: MAGNESIUM SULF 2 GM/WATER 50ML 2 GM/50 ML BAG IVPB (18:44)
[2024-10-21 20:47] LABS: Glucose Point of Care 210 mg/dl (65-105)
[2024-10-21] MEDS: MELATONIN 5 MG TABLET 10 MG PO (21:44)
[2024-10-21] MEDS: SENNA/DOCUSATE SODIUM TABLET 1 TAB PO (21:44)
[2024-10-21] MEDS: GABAPENTIN 300 MG CAPSULE PO (21:44)
[2024-10-21] MEDS: ONDANSETRON INJ 4 MG/2 ML VIAL IV PUSH (21:47)
[2024-10-22] MEDS: METOCLOPRAMIDE HCL INJ 10 MG/2 ML VIAL IV PUSH ×3 (01:58→12:19)
[2024-10-22 05:33] VITALS: BP 108/63; PULSE 75; RESP 14; TEMP 36.9; O2SAT 98
[2024-10-22 06:45] LABS: Hematocrit 29.3 % (37.0-47.0); Hemoglobin 9.4 g/dL (12.0-15.0); Mean Corpuscular HGB Conc 32.1 g/dl (32-36); Mean Corpuscular Hemoglobin 25.1 pg (26-34); Mean Corpuscular Volume 78.3 fl (80-100); Mean Platelet Volume 10.4 fl (7.4-10.4); Platelet Count Result 224 k/mm3 (150-375); Red Blood Count 3.74 M/mm3 (4.2-5.4); Red Cell Distribution Width 14.9 % (11.5-14.5); White Blood Count 5.4 K/mm3 (4.5-10.0)
[2024-10-22 07:00] LABS: Potassium 3.7 mmol/L (3.4-5.0)
[2024-10-22 07:16] LABS: Alanine Aminotransferase 24 U/L (6-35); Albumin Level 2.7 g/dL (3.5-5.1); Alkaline Phosphatase 57 U/L (38-126); Anion Gap 6 mmol/L (4-12); Aspartate Amino Transferase 30 U/L (14-36); Bilirubin,Total 0.7 mg/dL (0.2-1.3); Blood Urea Nitrogen 7 mg/dL (7-17); Calcium 8.6 mg/dL (8.4-10.2); Carbon Dioxide 26 mmol/L (22-30); Chloride 104 mmol/L (98-107); Estimated CRCL calculation 115 ml/min; Estimated Glomerular Filt Rate > 60; Glucose 139 mg/dL (65-110); Magnesium 1.6 mg/dL (1.6-2.3); Sodium 136 mmol/L (137-145)
[2024-10-22 07:49] LABS: Glucose Point of Care 160 mg/dl (65-105)
[2024-10-22 08:06] VITALS: PULSE 77
[2024-10-22] MEDS: methiMAzole 10 MG TAB PO (08:06)
[2024-10-22] MEDS: MULTIVITAMINS THERAPEUTIC TAB (*BKC) 1 TABLET PO (08:06)
[2024-10-22] MEDS: PANTOPRAZOLE SODIUM IV 40 MG VIAL IV PUSH (08:06)
[2024-10-22] MEDS: CHOLECALCIFEROL 1,000 UNITS TABLET 1000 UNITS PO (08:06)
[2024-10-22] MEDS: atenoloL 50 MG TABLET PO (08:06)
[2024-10-22] MEDS: FOLIC ACID 1 MG TABLET PO (08:06)
[2024-10-22] MEDS: ONDANSETRON INJ 4 MG/2 ML VIAL IV PUSH (08:09)
[2024-10-22] MEDS: INSULIN GLARGINE (*BKC) 100 UNITS/ML 26 UNITS SUB-Q (08:10)
[2024-10-22 09:27] LABS: Thyroid Peroxidase Antibodies 750 IU/mL (<9)
[2024-10-22 11:33] LABS: Glucose Point of Care 230 mg/dl (65-105)
[2024-10-22] MEDS: INSULIN ASPART (*BKC) 100 UNITS/ML SUB-Q (12:21)
[2024-10-22 14:00] VITALS: BP 135/73; PULSE 79; RESP 15; TEMP 36.6; O2SAT 100
--- NOTE | 2024-10-22 14:34 | PM.DS ---
DS: Admitting Diagnosis Discharge Date 10/22/24 Admitting Diagnosis abdominal pain DS: Discharge Diagnosis Discharge Diagnosis (1) Diabetic keto-acidosis: Qualifiers: Diabetes mellitus complication detail: without coma Diabetes mellitus type: type 1 Qualified Code(s): E10.10 - Type 1 diabetes mellitus with ketoacidosis without coma Code(s): E11.10 - Type 2 diabetes mellitus with ketoacidosis without coma Status: Acute (2) Abnormal thyroid blood test: Code(s): R79.89 - Other specified abnormal findings of blood chemistry Status: Acute (3) Gastroparesis: Code(s): K31.84 - Gastroparesis Status: Acute (4) Abdominal pain: Code(s): R10.9 - Unspecified abdominal pain Status: Acute (5) Sinus tachycardia: Code(s): R00.0 - Tachycardia, unspecified Status: Acute (6) Hypertension: Code(s): I10 - Essential (primary) hypertension Status: Acute DS: Summary Hospital Course Hospital Course: This is a 39-year-old female with a past medical history type 1 diabetes mellitus since age 7, diabetic gastroparesis, diabetic neuropathy, bipolar disorder, GERD, migraines and cannabis hyperemesis syndrome who presented to the ER with nausea vomiting and abdominal pain. Patient's symptoms have been on since the but acutely worsened on the day of admission. She reports that she has been using her insulin as prescribed but her sugars have been higher than usual running in the 2-300 range. She reports feeling significantly nauseous and having vomiting. Nursing staff noted the patient had been forcing emesis. The patient has continued to smoke marijuana. But she reports that she quit drinking alcohol altogether 6 months ago. She was having left lower and middle abdominal pain. She thought it may be due to ?gallbladder issues that she had had in the past?. In the ER she was afebrile but tachycardic with heart rates in the 130s to 150s range. She received 30 mL/kilos bolus with normal saline initially. Initial blood pressures were high in the 180 systolic but have come down into a more normal range. She is noted to be tachypneic and was found to be ketotic. ABG demonstrated significant respiratory alkalosis with acute metabolic acidosis. Initial serum bicarb was 17. And initial anion gap was 22. Patient was started on insulin drip and was admitted to the ICU. Gap was closed and was transition to subcu insulin. Her TSH came back less than 0.015 for which thyroid ultrasound was performed which showed Heterogenous echotexture with increased vascular flow throughout the entirety of the thyroid gland. Transferred out of the ICU on 10/18/2024 Labs with worsening acidosis 10/19/2024 started on ivf and lantus 25 units daily Acidosis still on and off issue. Increase Lantus to 28 units daily. Recheck labs to monitor Acute DKA see above Type 1 diabetes since age [address] negative for any acute intra-abdominal pelvic process. Small sliding type hiatal hernia noted NG tube was placed at high. Lipase was negative CT earlier this month showed some infectious inflammatory colitis. TSH was less than 0.015 Hyperthyroidism as indicated by low TSH and elevated T3-T4. Will initiate methimazole. Already on atenolol. 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 Increase atenolol to twice a day No overnight events. Still complains of diffuse abdominal discomfort along with nausea most likely due to her long standing diabetes gastroparesis as patient is noncompliant with her regimen and smoking marijuana, patient is on Reglan and will add senna to help her with constipation, will advance her diet, her overall symptoms have improved and her DKA has resolved, patient is clinically stable and tolerating her diet will discharge the patient today Time Spent with Patient Time attestation: Total time spent providing and/or coordinating discharge services: Exam Narrative: Patient is comfortable, NAD HEENT: eyes are clear and none icteric LUNGS:CTA HEART: RR S1S2 ABD: BS+, Soft and nontender Lower extremities: no edema SKIN: nonjaundiced Neuro: grossly intact. DS: Data Data Completed and Pending Labs on day of discharge: Labs from last 24 hours 10/22/24 10/22/24 10/22/24 11:24 07:39 05:55 WBC 5.4 RBC 3.74 L Hgb 9.4 L Hct 29.3 L MCV 78.3 L MCH 25.1 L MCHC 32.1 RDW 14.9 H Plt Count 224 MPV 10.4 Sodium 136 L Potassium 3.7 Chloride 104 Carbon Dioxide 26 Anion Gap 6 BUN 7 Creatinine 0.48 L Estim Creat Clear Calc 115 Estimated GFR > 60 Glucose 139 H POC Capillary Glucose 230 H 160 H Calcium 8.6 Magnesium 1.6 Total Bilirubin 0.7 AST 30 ALT 24 Alkaline Phosphatase 57 Total Protein 5.0 L Albumin 2.7 L Thyroid Peroxidase Ab 10/21/24 10/21/24 10/19/24 19:28 15:55 04:25 WBC RBC Hgb Hct MCV MCH MCHC RDW Plt Count MPV Sodium Potassium Chloride Carbon Dioxide Anion Gap BUN Creatinine Estim Creat Clear Calc Estimated GFR Glucose POC Capillary Glucose 210 H 185 H Calcium Magnesium Total Bilirubin AST ALT Alkaline Phosphatase Total Protein Albumin Thyroid Peroxidase Ab 750 H Discharge Plan Discharge Attending physician on discharge: Charlene Woods Consulting providers: Jacquelyn Chatterjee; Francois Hammonds; Dimitri Paiz; Be Muir; Stanley Pires; Zana Fernandes V.; Therese Salinas Discharging Clinician: Kumar Blackmon Patient Disposition: Home, Self-Care Activity: as tolerated Diet: diabetic Discharge Instructions: patient to take he insulin as given and take diabetes diet, patient to follow up with her 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 Patient Instructions: Antibiotic Form, Diabetic Gastroparesis (DC), Diabetic Ketoacidosis (GEN), Cyclic Vomiting Syndrome (DC) Patient Language: Citizen Of [place] Stand Alone Forms: General Discharge Information Follow-up/Referrals: Nam Carmona MD [Primary Care Provider] - Discharge Medications: New hydrocodone-acetaminophen 5-325 mg Tablet 1 tablet PO Q6H PRN (Reason: Pain Rated 4-6) Qty: 15 0RF sennosides-docusate sodium [Senokot-S] 8.6-50 mg Tablet 1 tab PO HS Qty: 30 0RF calcium carbonate 500 mg calcium (1,250 mg) Tablet,Chewable 200 mg PO Q6H PRN (Reason: Indigestion) Qty: 30 0RF dicyclomine 10 mg Capsule 20 mg PO QID PRN (Reason: Abdominal Cramping) Qty: 60 0RF atenolol 50 mg Tablet 50 mg PO Q12H Qty: 60 0RF nicotine [Nicoderm CQ] 21 mg/24 hr Patch 24 Hour 1 patch transdermal QAM PRN (Reason: Nicotine withdrawal) Qty: 28 0RF ondansetron 4 mg tablet,disintegrating 4 mg PO Q6H PRN (Reason: nausea and vomiting) Qty: 20 0RF Continued (DME) Omnipod 5 G6-G7 Intro Kt(Gen5) Cartridge See Rx Instructions .Route Qty: 1 0RF Rx Instructions: As directed insulin lispro 100 unit/mL solution See Rx Instructions subcut PRN MDD 50 Qty: 60 0RF Rx Instructions: for insulin pump (DME) insulin pump cart,auto,BT,G6/7 Cartridge See Rx Instructions .Route Qty: 45 4RF Rx Instructions: Change every 3 days Gvoke HypoPen 2-Pack 1 mg/0.2 mL auto-injector 1 mg subcut ONCE Qty: 0.4 0RF Rx Instructions: as a single dose; may repeat once after 15 minutes if no response glucose 4 gram tablet,chewable 16 g PO Q15M PRN (Reason: hypoglycemia) Qty: 360 0RF Rx Instructions: until symptoms of low blood sugar are controlled mecobalamin (vitamin B12) 500 mcg tablet,chewable 500 mcg PO DAILY multivitamin Tablet 1 tablet PO DAILY lisinopril 2.5 mg tablet 2.5 mg PO DAILY Qty: 90 0RF (DME) Dexcom G6 Sensor Device See Rx Instructions .ROUTE .MEDSUPPLY Qty: 9 5RF Rx Instructions: every 10 days melatonin 10 mg Tablet 10 mg PO HS PRN (Reason: Insomnia) insulin glargine [Lantus U-100 Insulin] 100 unit/mL Solution 25 unit subcut DAILY 30 Days Qty: 15 0RF acetaminophen 500 mg capsule 1,000 mg PO Q6H PRN (Reason: pain) Qty: 30 0RF alum-mag hydroxide-simeth [Liquid Antacid] 400-400-40 mg/5 mL suspension 10 ml PO TID PRN (Reason: indigestion) Qty: 3000 0RF gabapentin 300 mg capsule 300 mg PO QHS Qty: 90 1RF (DME) insulin sports anchor cart,aut,G6/7,cntr Cartridge See Rx Instructions .Route Qty: 1 0RF Rx Instructions: As directed cholecalciferol (vitamin D3) [Vitamin D3] 50 mcg (2,000 unit) capsule See Rx Instructions .ROUTE .COMPLEX Qty: 90 0RF Dose Instruction: Take 1 capsule by mouth once daily Rx Instructions: Take 1 capsule by mouth once daily folic acid 1 mg tablet See Rx Instructions .ROUTE .COMPLEX Qty: 90 0RF Dose Instruction: Take 1 tablet by mouth once daily Rx Instructions: Take 1 tablet by mouth once daily (DME) Omnipod 5 G6-G7 Pods (Gen 5) Cartridge See Rx Instructions .Route Qty: 30 5RF Rx Instructions: Change every 3 days (DME) Dexcom G6 Transmitter Device MISCELLANEOUS Qty: 1 0RF Rx Instructions: As directed change every 3 months Held metoclopramide HCl 10 mg tablet 10 mg PO Q6H PRN (Reason: nausea and vomiting) Hold Instructions: until seen by her primary care provider Date of admission: 10/17/24 01:18 Primary Care Provider: Nam Carmona Admitting Provider: Charlene Woods Attending physician on admission: Kumar Blackmon Condition: Improved
[2024-10-24 17:33] LABS: Thyroid Stimulating Immunoglob 237 % baseline (<140)
--- NOTE | 2024-10-26 15:21 | PCCDE ---
10/26/24 15:[address] courtesy follow up call. Outbound recording stating I'm sorry, your call cannot be completed.... Unable to leave voice message. FJ
== END 2024-10-22 15:10 | disposition home or self-care (01) | DRG 420 ==
LOC: ANHED 10-17 00:42 → ANHICU 10-17 01:35 → ANHIMU 10-18 15:18 → ANH3MEDSUR 10-22 14:18 → ANHIMU 10-23 15:03
PROVIDERS: Internal Medicine; Physician Assistant; Admitting Provider Internal Medicine; Emergency Provider Emergency Medicine; PCP Family Medicine; Visit Provider Family Medicine
DX: E10.10 Type 1 diabetes mellitus with ketoacidosis without coma (principal); E10.43 Type 1 diabetes mellitus with diabetic autonomic (poly)neuropathy; K31.84 Gastroparesis; R11.10 Vomiting, unspecified; E10.42 Type 1 diabetes mellitus with diabetic polyneuropathy; E05.90 Thyrotoxicosis, unspecified without thyrotoxic crisis or storm; E78.5 Hyperlipidemia, unspecified; E83.42 Hypomagnesemia; F12.90 Cannabis use, unspecified, uncomplicated; F31.9 Bipolar disorder, unspecified; I10 Essential (primary) hypertension; K44.9 Diaphragmatic hernia without obstruction or gangrene; K21.9 Gastro-esophageal reflux disease without esophagitis; R00.0 Tachycardia, unspecified; Z96.41 Presence of insulin pump (external) (internal); Z91.148 Patient's other noncompliance with medication regimen for other reason; Z28.21 Immunization not carried out because of patient refusal; Z20.822 Contact with and (suspected) exposure to COVID-19
CPT/HCPCS: 36415; 36600; 71045; 74018; 74176; 76536; 80048; 80053; 81001; 81025; 82010; 82375; 82805; 82948; 83036; 83050; 83605; 83690; 83735; 84100; 84439; 84443; 84445; 84481; 85018; 85025; 85027; 86376; 87637; 87641; 93005; 96361; 96365; 96367; 96375; 99285; A9270; J0780; J1200; J1815; J2270; J2405; J2470; J2550; J2765; J3475; J3480; J7030; J7040; J7120

== ENCOUNTER 2024-12-15 07:54 | Outpatient (CLI) | payer OTHER, SELFPAY ==
--- NOTE | ~2024-12-15 | NM_ITS ---
EXAMINATION: NM hepatobiliary w pharm DATE: 12/15/2024 10:49 INDICATION: Nausea COMPARISON: None. TECHNIQUE: 4.7 mCi Tc-99m mebrofenin (Choletec) was administered intravenously. Scintigraphic images of the abdomen were obtained for one hour. 1.5 mcg sincalide (Kinevac) was administered by slow intr avenous infusion, and imaging was continued for 30 minutes. Gallbladder ejection fraction was calcula tong by the technologist. FINDINGS: There is normal clearance of radiotracer from the blood pool. There is homogeneous tracer uptake by t he liver. Activity progresses to the gallbladder and bowel. The gallbladder ejection fraction (GBEF) is 80% (normal 10-90%, but most patient with gallbladder dysfunction have GBEF < 35% which does over lap with the normal range). IMPRESSION: 1. Normal hepatobiliary scan Reviewed, dictated and finalized at location A.
--- OUTSIDE RECORDS SUMMARY | 2024-12-15 08:03 | XMS_ITS | Encounter Summary ---
Author Organization [facility] Address [facility] [place] [address] Care Team Providers Care Cotton Washer Name Role Phone [facility], [facility] Primary Care Provider [phone] Sidney Vicente MD Primary Care Provider + [facility] Primary Care Provider Sidney Vicente MD Primary Care Provider + [facility] Primary Care Provider [phone] Sidney Vicente MD Primary Care Provider + Sharri Alonso MD Primary Care Provider [phone] [facility] Primary Care Provider [phone] [facility] Primary Care Provider [phone] Encounter Details Date Type Department Care Team (Late st Contact Info) Description 05/03/2010 Telephone [facility] [address] [place], [place] [id number] Liz Ramey MD [address] [id number] Social History Tobacco Use Types Packs/Day Years Used Date Smoking Tobacco: Every Day Cigarettes 0.5 10 Comments:interested in quitt ing Alcohol Use Standard Drinks/Week Comments No 0 (1 standard drink = 0.6 oz pur e alcohol) Comments Yes Sex and Gender Information Value Date Recorded Sex Assigned at Not on file Legal Sex Female 6:26 AM [employer] Gender Identity Not on file Sexual Orientation Not on file 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 [address] [place] [id number] PCP - General 04/17/10 05/13/10 Sidney Vicente MD [address] [place], [place] [id number] PCP - General 05/14/10 05/15/10 [facility] Ob/[address] [address] PCP - General 05/16/10 05/16/10 Sidney Vicente MD [address] [place], [place] [id number] PCP - General 05/17/10 05/17/10 [facility] [address] [place] [id number] PCP - General 05/18/10 06/13/10 Sidney Vicente MD [address] [place], [place] [id number] PCP - General 06/14/10 09/21/10 Sharri Alonso MD [address] [phone] PCP - General 09/22/10 11/09/10 [facility] [address] [place] [id number] PCP - General 11/10/10 11/13/10 [facility] [address] [place] [id number] PCP - General 11/14/10 11/15/10 documented as of this encounter
--- OUTSIDE RECORDS SUMMARY | 2024-12-15 08:03 | XMS_ITS | Data Portability ---
Author Organization [facility] [place], Main Office Address [address] [place] [address] Assessment No assessment recorded. Plan of Treatment Reminders Order Date Submit Date Provider Last Modified By Organization Details Last Modified Time Details Appointments None recorded. Lab None recorded. Referral endocrinolo gy referral 2022 023 shalonda De Leon MD, [address],, [facility], [place], [address], 3 15:20:08 nephrologis t referral 2022 023 [place], [address], [address], [place], [address], 3 12:35:35 Procedures None recorded. Surgeries None recorded. Imaging None recorded. Medication Orders Humalog U-100 Insulin 100 unit/mL subcutaneou s solution 2022 023 [facility] #[id number], [address], [place], [place], [id number], 3 14:41:39 Gvoke HypoPen 2-Pack 1 mg/0.2 mL subcutaneou s auto-inject or 2022 023 [facility] #[id number], [address], [place], [place], [id number], 3 14:42:39 gabapentin 300 mg capsule 2022 023 [facility] #[id number], [address], [place], [place], [id number], 3 14:44:52 famotidine 20 mg tablet 2022 023 [facility] #[id number], [address], [place], [place], [id number], 3 14:48:37 ondansetron 4 mg disintegrat ing tablet 2022 023 [facility] #[id number], [address], [place], [place], [id number], 3 14:49:22 Patient TargetsNo targets recorded. Patient InstructionsNo instructions recorded. 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 [address] [facility] (Lab) [address] [place], [address], 05/11/2021 12:31:29 05/11/20 21 05/11/2021 COMPR EHENS CHIOMA METAB OLIC PANEL chloride 103 mmol/ L 98-[address] [facility] (Lab) [address] [place], [address], 05/11/2021 12:31:29 05/11/20 21 05/11/2021 COMPR EHENS CHIOMA METAB OLIC PANEL carbon dioxide 25 mmol/ L 22-[address] [facility] (Lab) [address] [place], [address], 05/11/2021 12:31:29 05/11/20 21 05/11/2021 COMPR EHENS CHIOMA METAB OLIC PANEL agap 11.7 mmol/ L 14-22 low Not Available [facility] (Lab) [address] [place], [address], 05/11/2021 12:31:29 05/11/20 21 05/11/2021 COMPR EHENS CHIOMA METAB OLIC PANEL glucose 327 mg/dL 70-99 high Not Available [facility] (Lab) [address] [place], [address], 05/11/2021 12:31:29 05/11/20 21 05/11/2021 COMPR EHENS CHIOMA METAB OLIC PANEL BUN 13 mg/dL 8-19 Not Available [facility] (Lab) [address] [place], [address], 05/11/2021 12:31:29 05/11/20 21 05/11/2021 COMPR EHENS CHIOMA METAB OLIC PANEL creatinine 0.75 mg/dL 0.66-1 .25 Not Available [facility] (Lab) [address] [place], [address], 05/11/2021 12:31:29 05/11/20 21 05/11/2021 COMPR EHENS CHIOMA METAB OLIC PANEL GFR >60 Refer ence Range : [place] ge GFR Healt hy Adult : >60 [...] lator can be locat ed on the [facility] websi te: https :[email or web address] [email or web address] rg/pr ofess ional s/kdo qi/gf r_cal culat or Not Available [facility] (Lab) [address] [place], [address], 05/11/2021 12:31:29 05/11/20 21 05/11/2021 COMPR EHENS CHIOMA METAB OLIC PANEL bilirubin, total 0.80 mg/dL 0.20-1 .30 Not Available [facility] (Lab) [address] [place], [address], 05/11/2021 12:31:29 05/11/20 21 05/11/2021 COMPR EHENS CHIOMA METAB OLIC PANEL sodium 135 mmol/ L 137-14 5 low Not Available [facility] (Lab) [address] [place], [address], 05/11/2021 12:31:29 05/11/20 21 05/11/2021 COMPR EHENS CHIOMA METAB OLIC PANEL alkaline phosphatase 71 U/L 38-126 Not Available [place] (Lab) [address] [facility] [place], [address], 05/11/2021 12:31:29 05/11/20 21 05/11/2021 COMPR EHENS CHIOMA METAB OLIC PANEL alanine aminotransfe rase 35 U/L 0-35 Not Available [facility] (Lab) [address] [place], [address], 05/11/2021 12:31:29 05/11/20 21 05/11/2021 COMPR EHENS CHIOMA METAB OLIC PANEL aspartate aminotransfe rase 48 U/L 15-37 high Not Available [facility] (Lab) [address] [place], [address], 05/11/2021 12:31:29 05/11/20 21 05/11/2021 COMPR EHENS CHIOMA METAB OLIC PANEL calcium 9.7 mg/dL 8.4-10 .2 Not Available [facility] (Lab) [address] [place], [address], 05/11/2021 12:31:29 05/11/20 21 05/11/2021 COMPR EHENS CHIOMA METAB OLIC PANEL total protein 7.5 g/dL 6.3-8. 2 Not Available [facility] (Lab) [address] [place], [address], 05/11/2021 12:31:29 05/11/20 21 05/11/2021 COMPR EHENS CHIOMA METAB OLIC PANEL albumin 4.4 g/dL 3.4-5. 0 Not Available [facility] (Lab) [address] [place], [address], 05/11/2021 12:31:29 05/11/20 21 05/11/2021 COMPR EHENS CHIOMA METAB OLIC PANEL globulin 3.1 g/dL 2.6-4. 2 Not Available [facility] (Lab) [address] [place], [address], 05/11/2021 12:31:29 05/11/20 21 05/11/2021 COMPR EHENS CHIOMA METAB OLIC PANEL A/G ratio 1.4 ratio 1.0-2. 0 Not Available [facility] (Lab) [address] [facility] [place], [address], 05/11/2021 12:31:29 05/11/20 21 05/11/2021 MICRO ALBUM N RNDM W/CRE AT RATIO ur creat 64.98 mg/dL REFER ENCE RANGE NOT ESTAB LISHE D FOR RANDO M URINE CREAT ININE Not Available [facility] (Lab) [address] [place], [address], 05/11/2021 12:25:26 05/11/20 21 05/11/2021 MICRO ALBUM N RNDM W/CRE AT RATIO microalb <6.0 mg/L 0.0-16 .6 Not Available [facility] (Lab) [address] [place], [address], 05/11/2021 12:25:26 06/28/20 21 06/29/2021 MICRO ALBUM N RNDM W/CRE AT RATIO ur creat 156.68 mg/dL REFER ENCE RANGE NOT ESTAB LISHE D FOR RANDO M URINE CREAT ININE Not Available [facility] (Lab) [address] [place], [address], 06/29/2021 15:37:30 06/28/20 21 06/29/2021 MICRO ALBUM N RNDM W/CRE AT RATIO microalb 279.2 mg/L 0.0-16 .6 high Not Available [facility] (Lab) [address] [place], [address], 06/29/2021 15:37:30 06/28/20 21 06/29/2021 MICRO ALBUM [...] VOL. 26: S94-S , 2002 Not Available [facility] (Lab) [address] [place], [address], 06/29/2021 15:37:30 06/28/20 21 06/28/2021 HEMOG LOBIN A1C HA1C 8.5 % 4.0-6. 0 high Diabe dimple Scree brody Crite gin: <5.7% Consi stent with absen ce of diabe dimple 5.7-6 .4% Consi stent with incre ased risk for diabe dimple (pred iabet es) >OR=6 .5% Consi stent with diabe dimple REFER ENCE: Diabe dimple Care 2016, 39(Tamayo ppl.1 ):s13 -s22 Not Available [facility] (Lab) [address] [place], [address], 06/28/2021 21:31:55 06/28/20 21 06/28/2021 TSH thyroid-stim ulating hormone 1.970 uIU/m L 0.465- 4.680 Not Available [facility] (Lab) [address] [place], [address], 06/28/2021 17:02:41 06/28/20 21 06/28/2021 T4 FREE free T4 1.18 NG/dL 0.78-2 .19 Not Available [facility] (Lab) [address] [place], [address], 06/28/2021 16:51:26 06/28/20 21 06/28/2021 LIPID PANEL [...] WILL NOT BE REPOR MORGAN. Not Available [facility] (Lab) [address] [place], [address], 06/28/2021 16:40:22 06/28/20 21 06/28/2021 LIPID PANEL cholesterol 181 mg/dL 140-19 9 NIH NEAL NSUS RECOM MENDA TION FOR JAZMINE STERO L: ADULT CHILD LOW RISK: <200 <170 BORDE RLINE : <200- 239 ----- HIGH RISK: >240 >200 Not Available [facility] (Lab) [address] [place], [address], 06/28/2021 16:40:22 06/28/20 21 06/28/2021 LIPID PANEL triglyceride s 74 mg/dL 0-150 NIH NEAL NSUS REPOR T RECOM MENDA TION FOR TRIGL YCERI THOMAS: ADULT CHILD LOW RISK: <150 ----- BODER LINE: 150-1 99 ----- HIGH RISK: >200 ----- Not Available [facility] (Lab) [address] [place], [address], 06/28/2021 16:40:22 06/28/20 21 06/28/2021 LIPID PANEL HDL cholesterol 139 mg/dL 40- Not Available [facility] (Lab) [address] [place], [address], 06/28/2021 16:40:22 06/28/20 21 06/28/2021 COMPR EHENS CHIOMA METAB OLIC PANEL sodium 136 mmol/ L 137-14 5 low Not Available [facility] (Lab) [address] [place], [address], 06/28/2021 16:29:51 06/28/20 21 06/28/2021 COMPR EHENS CHIOMA METAB OLIC PANEL potassium 4.6 mmol/ L 3.5-5. 1 Not Available [facility] (Lab) [address] [place], [address], 06/28/2021 16:29:51 06/28/20 21 06/28/2021 COMPR EHENS CHIOMA METAB OLIC PANEL chloride 98 mmol/ L 98-107 Not Available [facility] (Lab) [address] [place], [address], 06/28/2021 16:29:51 06/28/20 21 06/28/2021 COMPR EHENS CHIOMA METAB OLIC PANEL carbon dioxide 29 mmol/ L 22-30 Not Available [facility] (Lab) [address] [place], [address], 06/28/2021 16:29:51 06/28/20 21 06/28/2021 COMPR EHENS CHIOMA METAB OLIC PANEL agap 13.6 mmol/ L 14-22 low Not Available [facility] (Lab) [address] [place], [address], 06/28/2021 16:29:51 06/28/20 21 06/28/2021 COMPR EHENS CHIOMA METAB OLIC PANEL glucose 194 mg/dL 70-99 high Not Available [facility] (Lab) [address] [place], [address], 06/28/2021 16:29:51 06/28/20 21 06/28/2021 COMPR EHENS HCIOMA METAB OLIC PANEL BUN 7 mg/dL 8-19 low Not Available [facility] (Lab) [address] [place], [address], 06/28/2021 16:29:51 06/28/20 21 06/28/2021 COMPR EHENS CHIOMA METAB OLIC PANEL creatinine 0.67 mg/dL 0.66-1 .25 Not Available [facility] (Lab) [address] [facility], [place], [address], 06/28/2021 16:29:51 06/28/20 21 06/28/2021 COMPR EHENS CHIOMA METAB OLIC PANEL GFR >60 Refer ence Range : [place] ge GFR Healt hy Adult : >60 [...] or ethni c subgr oups, such as [facility] nics. Outsi de the valid [...] s/kdo qi/gf r_cal culat or Not Available [facility] (Lab) [address] [place], [address], 06/28/2021 16:29:51 06/28/20 21 06/28/2021 COMPR EHENS CHIOMA METAB OLIC PANEL alkaline phosphatase 80 U/L 38-126 Not Available [facility] (Lab) [address] [place], [address], 06/28/2021 16:29:51 06/28/20 21 06/28/2021 COMPR EHENS CHIOMA METAB OLIC PANEL alanine aminotransfe rase 35 U/L 0-35 Not Available [facility] (Lab) [address] [place], [address], 06/28/2021 16:29:51 06/28/20 21 06/28/2021 COMPR EHENS HCIOMA METAB OLIC PANEL aspartate aminotransfe rase 81 U/L 15-37 high Not Available [facility] (Lab) [address] [place], [address], 06/28/2021 16:29:51 06/28/20 21 06/28/2021 COMPR EHENS CHIOMA METAB OLIC PANEL bilirubin, total 1.50 mg/dL 0.20-1 .30 high Not Available [facility] (Lab) [address] [place], [address], 06/28/2021 16:29:51 06/28/20 21 06/28/2021 COMPR EHENS CHIOMA METAB OLIC PANEL calcium 9.6 mg/dL 8.4-10 .2 Not Available [facility] (Lab) [address] [place], [address], 06/28/2021 16:29:51 06/28/20 21 06/28/2021 COMPR EHENS CHIOMA METAB OLIC PANEL total protein 7.9 g/dL 6.3-8. 2 Not Available [facility] (Lab) [address] [place], [address], 06/28/2021 16:29:51 06/28/20 21 06/28/2021 COMPR EHENS CHIOMA METAB OLIC PANEL albumin 4.4 g/dL 3.4-5. 0 Not Available [facility] (Lab) [address] [place], [address], 06/28/2021 16:29:51 06/28/20 21 06/28/2021 COMPR EHENS CHIOMA METAB OLIC PANEL globulin 3.5 g/dL 2.6-4. 2 Not Available [facility] (Lab) [address] [place], [address], 06/28/2021 16:29:51 06/28/20 21 06/28/2021 COMPR EHENS CHIOMA METAB OLIC PANEL A/G ratio 1.3 ratio 1.0-2. 0 Not Available [facility] (Lab) [address] [place], [address], 06/28/2021 16:29:51 10/26/19 22 10/25/2021 HEMOG LOBIN A1C HA1C 8.0 % 4.0-6. 0 high Diabe dimple Scree brody Crite gin: <5.7% Consi stent with absen ce of diabe dimple 5.7-6 .4% Consi stent with incre ased risk for diabe dimple (pred iabet es) >OR=6 .5% Consi stent with diabe dimple REFER ENCE: Diabe dimple Care 2016, 39(Tamayo ppl.1 ):s13 -s22 Not Available [facility] (Lab) [address] [place], [address], 10/25/2021 19:02:25 10/26/19 22 10/25/2021 MICRO ALBUM N RNDM W/CRE AT RATIO ur creat 163.70 mg/dL REFER ENCE RANGE NOT ESTAB LISHE D FOR RANDO M URINE CREAT ININE Not Available [facility] (Lab) [address] [place], [address], 10/25/2021 18:50:35 10/26/19 22 10/25/2021 MICRO ALBUM N RNDM W/CRE AT RATIO microalb 32.2 mg/L 0.0-16 .6 high Not Available [facility] (Lab) [address] [place], [address], 10/25/2021 18:50:35 10/26/19 22 10/25/2021 MICRO ALBUM [...] VOL. 26: S94-S 96, 2002 Not Available [facility] (Lab) [address] [place], [address], 10/25/2021 18:50:35 10/26/19 22 10/25/2021 COMPR EHENS CHIOMA METAB OLIC PANEL carbon dioxide 27 mmol/ L 22-30 Not Available [facility] (Lab) [address] [place], [address], 10/25/2021 18:25:29 10/26/19 22 10/25/2021 COMPR EHENS CHIOMA METAB OLIC PANEL sodium 130 mmol/ L 137-14 5 low Not Available [facility] (Lab) [address] [place], [address], 10/25/2021 18:25:29 10/26/19 22 10/25/2021 COMPR EHENS CHIOMA METAB OLIC PANEL potassium 4.6 mmol/ L 3.5-5. 1 Not Available [facility] (Lab) [address] [place], [address], 10/25/2021 18:25:29 10/26/19 22 10/25/2021 COMPR EHENS CHIOMA METAB OLIC PANEL chloride 96 mmol/ L 98-107 low Not Available [facility] (Lab) [address] [place], [address], 10/25/2021 18:25:29 10/26/19 22 10/25/2021 COMPR EHENS CHIOMA METAB OLIC PANEL agap 11.6 mmol/ L 14-22 low Not Available [facility] (Lab) [address] [place], [address], 10/25/2021 18:25:29 10/26/19 22 10/25/2021 COMPR EHENS CHIOMA METAB OLIC PANEL glucose 298 mg/dL 70-99 high Not Available [facility] (Lab) [address] [place], [address], 10/25/2021 18:25:29 10/26/19 22 10/25/2021 COMPR EHENS CHIOMA METAB OLIC PANEL BUN 18 mg/dL 8-19 Not Available [facility] (Lab) [address] [place], [address], 10/25/2021 18:25:29 10/26/19 22 10/25/2021 COMPR EHENS CHIOMA METAB OLIC PANEL creatinine 0.58 mg/dL 0.66-1 .25 low Not Available [facility] (Lab) [address] [place], [address], 10/25/2021 18:25:29 10/26/19 22 10/25/2021 COMPR EHENS CHIOMA METAB OLIC PANEL GFR >60 Refer ence Range : [place] ge GFR Healt hy Adult : >60 [...] calcu lator is avail able on the [facility] websi te: https :[email or web address] [email or web address].sree [email or web address] christa/pr francisca peguero s/justao qi/gf r_cal culat or Not Available [facility] (Lab) [address] [place], [address], 10/25/2021 18:25:29 10/26/19 22 10/25/2021 COMPR EHENS CHIOMA METAB OLIC PANEL alkaline phosphatase 78 U/L 38-126 Not Available [facility] (Lab) [address] [place], [address], 10/25/2021 18:25:29 10/26/19 22 10/25/2021 COMPR EHENS CHIOMA METAB OLIC PANEL alanine aminotransfe rase 15 U/L 0-35 Not Available [facility] (Lab) [address] [place], [address], 10/25/2021 18:25:29 10/26/19 22 10/25/2021 COMPR EHENS CHIOMA METAB OLIC PANEL aspartate aminotransfe rase 23 U/L 15-37 Not Available [facility] (Lab) [address] [place], [address], 10/25/2021 18:25:29 10/26/19 22 10/25/2021 COMPR EHENS CHIOMA METAB OLIC PANEL bilirubin, total 1.10 mg/dL 0.20-1 .30 Not Available [facility] (Lab) [address] [place], [address], 10/25/2021 18:25:29 10/26/19 22 10/25/2021 COMPR EHENS CHIOMA METAB OLIC PANEL calcium 9.3 mg/dL 8.4-10 .2 Not Available [facility] (Lab) [address] [place], [address], 10/25/2021 18:25:29 10/26/19 22 10/25/2021 COMPR EHENS CHIOMA METAB OLIC PANEL total protein 7.2 g/dL 6.3-8. 2 Not Available [facility] (Lab) [address] [place], [address], 10/25/2021 18:25:29 10/26/19 22 10/25/2021 COMPR EHENS CHIOMA METAB OLIC PANEL albumin 4.1 g/dL 3.4-5. 0 Not Available [facility] (Lab) [address] [place], [address], 10/25/2021 18:25:29 10/26/19 22 10/25/2021 COMPR EHENS CHIOMA METAB OLIC PANEL globulin 3.1 g/dL 2.6-4. 2 Not Available [facility] (Lab) [address] [place], [address], 10/25/2021 18:25:29 10/26/19 22 10/25/2021 COMPR EHENS CHIOMA METAB OLIC PANEL A/G ratio 1.3 ratio 1.0-2. 0 Not Available [facility] (Lab) [address] [place], [address], 10/25/2021 18:25:29 01/12/20 23 01/11/2023 MICRO ALBUM N RNDM W/CRE AT RATIO ur creat 271.14 mg/dL REFER ENCE RANGE NOT ESTAB LISHE D FOR RANDO M URINE CREAT ININE Not Available [facility] (Lab) [address] [place], [address], 01/11/2023 16:33:17 01/12/20 23 01/11/2023 MICRO ALBUM N RNDM W/CRE AT RATIO microalbumin , urine >1140. 0 mg/L 0.0-16 .6 high Not Available [facility] (Lab) [address] [place], [address], 01/11/2023 16:33:17 01/12/20 23 01/11/2023 LIPID PANEL cholesterol 186 mg/dL 140-19 9 NIH NEAL NSUS RECOM MENDA TION FOR JAZMINE STERO L: ADULT CHILD LOW RISK: <200 <170 BORDE RLINE : <200- 239 ----- HIGH RISK: >240 >200 Not Available [facility] (Lab) [address] [place], [address], 01/11/2023 16:14:07 01/12/20 23 01/11/2023 LIPID PANEL triglyceride s 81 mg/dL 0-150 NIH NEAL NSUS REPOR T RECOM MENDA TION FOR TRIGL YCERI THOMAS: ADULT CHILD LOW RISK: <150 ----- BODER LINE: 150-1 99 ----- HIGH RISK: >200 ----- Not Available [facility] (Lab) [address] [place], [address], 01/11/2023 16:14:07 01/12/20 23 01/11/2023 LIPID PANEL HDL cholesterol 109 mg/dL 40- Not Available [facility] (Lab) [address] [facility] [place], [address], 01/11/2023 16:14:07 01/12/20 23 01/11/2023 LIPID PANEL [...] WILL NOT BE REPOR MORGAN. Not Available [facility] (Lab) [address] [place], [address], 01/11/2023 16:14:07 01/12/20 23 01/11/2023 COMPR EHENS CHIOMA METAB OLIC PANEL sodium 136 mmol/ L 137-14 5 low Not Available [facility] (Lab) [address] [place], [address], 01/11/2023 16:14:14 01/12/20 23 01/11/2023 COMPR EHENS CHIOMA METAB OLIC PANEL potassium 4.3 mmol/ L 3.5-5. 1 Not Available [facility] (Lab) [address] [place], [address], 01/11/2023 16:14:14 01/12/20 23 01/11/2023 COMPR EHENS CHIOMA METAB OLIC PANEL chloride 102 mmol/ L 98-107 Not Available [facility] (Lab) [address] [place], [address], 01/11/2023 16:14:14 01/12/20 23 01/11/2023 COMPR EHENS CHIOMA METAB OLIC PANEL carbon dioxide 28 mmol/ L 22-30 Not Available [facility] (Lab) [address] [place], [address], 01/11/2023 16:14:14 01/12/20 23 01/11/2023 COMPR EHENS CHIOMA METAB OLIC PANEL anion gap 10.3 mmol/ L 14-22 low Not Available [facility] (Lab) [address] [place], [address], 01/11/2023 16:14:14 01/12/20 23 01/11/2023 COMPR EHENS CHIOMA METAB OLIC PANEL glucose 181 mg/dL 70-99 high Not Available [facility] (Lab) [address] [place], [address], 01/11/2023 16:14:14 01/12/20 23 01/11/2023 COMPR EHENS CHIOMA METAB OLIC PANEL BUN 11 mg/dL 8-19 Not Available [facility] (Lab) [address] [place], [address], 01/11/2023 16:14:14 01/12/20 23 01/11/2023 COMPR EHENS CHIOMA METAB OLIC PANEL creatinine 0.58 mg/dL 0.66-1 .25 low Not Available [facility] (Lab) [address] [place], [address], 01/11/2023 16:14:14 01/12/20 23 01/11/2023 COMPR EHENS CHIOMA METAB OLIC PANEL GFR >60 Refer ence Range : [place] ge GFR Healt hy Adult : >60 [...] calcu lator is avail able on the [facility] websi te: https :[email or web address] w.kid eli.o rg/pr ofess ional s/kdo qi/gf r_cal culat or Not Available [facility] (Lab) [address] [place], [address], 01/11/2023 16:14:14 01/12/20 23 01/11/2023 COMPR EHENS CHIOMA METAB OLIC PANEL alkaline phosphatase 92 U/L 38-126 Not Available [facility] (Lab) [address] [place], [address], 01/11/2023 16:14:14 01/12/20 23 01/11/2023 COMPR EHENS CHIOMA METAB OLIC PANEL alanine aminotransfe rase 28 U/L 0-35 Not Available [facility] (Lab) [address] [place], [address], 01/11/2023 16:14:14 01/12/20 23 01/11/2023 COMPR EHENS CHIOMA METAB OLIC PANEL aspartate aminotransfe rase 46 U/L 15-37 high Not Available [facility] (Lab) [address] [place], [address], 01/11/2023 16:14:14 01/12/20 23 01/11/2023 COMPR EHENS CHIOMA METAB OLIC PANEL bilirubin, total 0.50 mg/dL 0.20-1 .30 Not Available [facility] (Lab) [address] [place], [address], 01/11/2023 16:14:14 01/12/20 23 01/11/2023 COMPR EHENS CHIOMA METAB OLIC PANEL calcium 8.7 mg/dL 8.4-10 .2 Not Available [facility] (Lab) [address] [place], [address], 01/11/2023 16:14:14 01/12/20 23 01/11/2023 COMPR EHENS CHIOMA METAB OLIC PANEL total protein 7.0 g/dL 6.3-8. 2 Not Available [facility] (Lab) [address] [place], [address], 01/11/2023 16:14:14 01/12/20 23 01/11/2023 COMPR EHENS CHIOMA METAB OLIC PANEL albumin 3.7 g/dL 3.4-5. 0 Not Available [facility] (Lab) [address] [place], [address], 01/11/2023 16:14:14 01/12/20 23 01/11/2023 COMPR EHENS CHIOMA METAB OLIC PANEL globulin 3.3 g/dL 2.6-4. 2 Not Available [facility] (Lab) [address] [place], [address], 01/11/2023 16:14:14 01/12/20 23 01/11/2023 COMPR EHENS CHIOMA METAB OLIC PANEL A/G ratio 1.1 ratio 1.0-2. 0 Not Available [facility] (Lab) [address] [place], [address], 01/11/2023 16:14:14 01/12/20 23 01/11/2023 T4 FREE free T4 1.17 NG/dL 0.78-2 .19 Not Available [facility] (Lab) [address] [place], [address], 01/11/2023 16:33:28 05/01/11/2023 TSH thyroid-stim ulating hormone 2.230 uIU/m L 0.465- 4.680 Not Available [facility] (Lab) [address] [place], [address], 01/11/2023 16:44:12 01/12/2001/11/2023 HEMOG LOBIN A1C HA1C 8.9 % 4.0-6. 0 high Diabe dimple Scree brody Crite gin: <5.7% Consi stent with absen ce of diabe dimple 5.7-6 .4% Consi stent with incre ased risk for diabe dimple (pred iabet es) >OR=6 .5% Consi stent with diabe dimple REFER ENCE: Diabe dimple Care 2016, 39(Tamayo ppl.1 ):s13 -s22 Not Available [facility] (Lab) [address] [place], [address], 01/11/2023 20:44:58 03/28/2003/28/2023 XR, chest No observ ation record ed. [email or web address] [facility] [address] [place], [address], 04/01/2023 08:54:36 Result Notes None recorded. Problems Name Problem SNOMED Code Status Onset Date Resolution Date Notes Provider Name and Address Organization Details Recorded Time Burn of foot 08357824 Active 2020 Not Available [facility] 3 11:22:34 Alcohol abuse 32858264 Active Not Available [facility] 3 11:22:34 Gonococcal cervicitis 132005312 Completed Not Available [facility] 3 02:55:23 Chlamydial cervicitis 407553095 Completed Not Available [facility] 3 02:55:23 Vaginal discharge 905361094 Active Not Available [facility] 3 11:22:34 Low back pain 727971218 Active 2018 Not Available [facility] 3 11:22:34 Pain in pelvis 55272824 Active Not Available [facility] 3 11:22:34 Bacterial vaginosis 842771524 Active Not Available [facility] 3 11:22:34 Nausea 311375173 Active 2021 Not Available [facility] 3 11:22:34 Diabetic peripheral neuropathy 916187782 Active 2021 Not Available [facility] 3 11:22:34 Uncontroll ed type 1 diabetes mellitus 697718104 Active 2021 Not Available [facility] 3 11:22:34 Diabetes mellitus 53016605 Active 2020 Not Available [facility] 3 11:22:34 Cyst of ovary 00295126 Active Not Available [facility] 3 11:22:34 Irregular periods 31367703 Active Not Available [facility] 3 11:22:34 Hyperglyce ivan 73664807 Active Not Available [facility] 3 11:22:34 Proteinuri a 27773358 Active 2022 Randee Kilpatrick MD [address], [address] , [facility] [employer] [facility] 3 14:44:54 Gastroesop hageal reflux disease without esophagiti s 017897986 Active 2022 Randee Kilpatrick MD [address] [facility], [place] [address], [place], [address] , [employer] [facility] [facility] 3 14:47:59 Problem Notes None recorded. Procedures Surgical History Date Name Laterality Status Provider Name and Address Organization Details Recorded Time 0 MEDICAL TRANSCRIPTION Procedure completed Not Available [facility] 2022 02:48:31 0 MEDICAL TRANSCRIPTION Procedure completed Not Available [facility] 2022 02:48:31 8 Date of Last Pap Smear completed Not Available [facility] 10/24/2022 02:48:28 7 MEDICAL TRANSCRIPTION Procedure completed Not Available [facility] 2022 02:48:31 delivery completed Not Available [facility] 10/24/2022 02:48:31 Imaging Results Imaging Date Name Status LastModified by Organiz ation Details LastModified Time 03/28/2023 XR, chest completed [id number] [facility] [address] [place], [address], 04/01/2023 08:54:36 Procedure Notes None recorded. 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 Not Available Not Available [...] Address Organization Details Last Updated DateTime 3 98010.2 7 g 29.1 kg/m2 162.56 cm 12 /min 98.1 [degF] 76 /min 127 mm[Hg] 81 mm[Hg] Meg Richard RN [place] [employer] [facility] 3 14:11:14 Date Recorded Body mass index (BMI) Body height Oxygen saturation Oxygen saturation in Arterial blood by Pulse oximetry Heart rate Respiratory rate Body weight Systolic blood pressure Diastolic blood pressure Provider Name and Address Organization Details Last Updated DateTime 1 25.6 kg/m2 162.56 cm 99 % 99 % 88 /min 18 /min 25283.2 6 g 122 mm[Hg] 80 mm[Hg] Not Available [facility] 3 02:52:06 Date Recorded Body mass index (BMI) Body height Oxygen saturation Oxygen saturation in Arterial blood by Pulse oximetry Heart rate Body temperature Body weight Systolic blood pressure Diastolic blood pressure Provider Name and Address Organization Details Last Updated DateTime 1 26.1 kg/m2 162.56 cm 99 % 99 % 82 /min 98 [degF] 31766.0 4 g 116 mm[Hg] 74 mm[Hg] Not Available [facility] 3 02:52:06 Date Recorded Body mass index (BMI) Body height Oxygen saturation Oxygen saturation in Arterial blood by Pulse oximetry Heart rate Body temperature Body weight Systolic blood pressure Diastolic blood pressure Provider Name and Address Organization Details Last Updated DateTime 2 25.1 kg/m2 162.56 cm 99 % 99 % 88 /min 97.7 [degF] 24526.4 9 g 116 mm[Hg] 82 mm[Hg] Not Available [facility] 3 02:52:06 Date Recorded Body mass index (BMI) Body height Oxygen saturation Oxygen saturation in Arterial blood by Pulse oximetry Heart rate Body temperature Body weight Systolic blood pressure Diastolic blood pressure Provider Name and Address Organization Details Last Updated DateTime 2 26.3 kg/m2 162.56 cm 100 % 100 % 84 /min 97.8 [degF] 97792.6 3 g 110 mm[Hg] 70 mm[Hg] Not Available [facility] 3 02:52:06 Social History Question Answer Notes LastModified by [employer] ion Details LastModified Time Tobacco Smoking Status Current Every Day Smoker Not Available [facility] 10/24/2022 02:43:10 What Is Your Level Of Alcohol Consumption? Occasional [id number] Information not available 10/24/2022 What Is Your Level Of Caffeine Consumption? Heavy [id number] Information not available 10/24/2022 How Much Tobacco Do You Chew? None [id number] Information not available 10/24/2022 In The 14 Days Before Symptom Onset, Have You Had Close Contact With A Laboratory-confir med COVID-19 While That Case Was Ill? No [id number] Information not available 10/24/2022 In The 14 Days Before Symptom Onset, Have You Had Close Contact With A Person Who Is Under Investigation For COVID-19 While That Person Was Ill? No [id number] Information not available 10/24/2022 What Type Of Diet Are You Following? REGULAR [id number].[id number] Information not available 10/24/2022 Which Illicit Or Recreational Drugs Have You Used? None [id number] Information not available 10/24/2022 Do You Or Have You Ever Used E-cigarettes Or Vape? 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 Domestic Partner MIGRATION.[id number] Information not available 10/24/2022 Do You Or Have You Ever Used Smokeless Tobacco? Never Used Smokeless Tobacco MIGRATION.[id number] Information not available 10/24/2022 How Much Tobacco Do You Smoke? 1 PPD MIGRATION.[id number] 5644 Information not available 10/24/2022 Do You Use Any Illicit Or Recreational Drugs? No MIGRATION.[id number] 1194 Information not available 10/24/2022 Have You Recently Traveled Abroad? No MIGRATION.[id number] 6179 Information not available 10/24/2022 Do You Have Any Dietary Restrictions? No MIGRATION.[id number] Information not available 10/24/2022 Sex: Female Functional Status None recorded. Mental Status None recorded. Family History Relationship Description Onset Age of this Age Resolved Age Notes LastModified by Organization Details LastModified Time Father Diabetes mellitus [id number] Not available 10/24/2022 02:48:34 Paternal Grandmother Malignant tumor of breast [id number] Not available 10/24/2022 02:48:34 Medical History Condition [...] virus, quadrivalent, PF 06/24/2018 completed Not Available [facility] 09:09:38 Past Encounters Encounter ID Performer Location Encounter Start Date Encounter Closed Date Diagnosis/Indication Diagnosis SNOMED-CT Code Diagnosis ICD10 Code Diagnosis Note [id number] _ATHENA_M IGRATION_ DEFAULT_1 _1 , 01/12/2021 00:00:00 01/16/2021 21:13:51 [id number] _ATHENA_M IGRATION_ DEFAULT_1 _1 , 04/06/2021 00:00:00 04/06/2021 18:21:27 [id number] [facility] [address] [place] [address] 05/16/2021 00:00:00 05/16/2021 16:30:44 [id number] [facility] [address] [place] [address] 05/17/2021 00:00:00 05/17/2021 13:41:42 [id number] [facility] [address] [place] [address] 05/31/2021 00:00:00 05/31/2021 15:23:51 [id number] [facility] [address] [place] [address] 06/07/2021 00:00:00 06/07/2021 16:59:02 [id number] _ATHENA_M IGRATION_ DEFAULT_1 _1 , 06/29/2021 00:00:00 06/29/2021 16:26:41 [id number] _ATHENA_M IGRATION_ DEFAULT_1 _1 , 10/26/2021 00:00:00 10/26/2021 18:19:39 [id number] _ATHENA_M IGRATION_ DEFAULT_1 _1 , 02/01/2022 00:00:00 02/15/2022 12:52:22 [id number] Randee Kilpatrick MD [facility] [place] [address] [place] [address] 03/26/2023 13:59:58 03/26/2023 15:20:08 Uncontrolled type 1 diabetes mellitus 585964233 E10.65 A1C of 8.9% from December- patient [...] for further care. Diabetic p eripheral neuropathy [id number] E11.40 Refill gabapentin for neuropathy as she is able to sleep when taking her once daily dosing. Proteinuria 77184147 R80 .9 Refer to nephrology for significan t proteinuri a. Gastroesop hageal reflux disease without esophagitis [id number] K21.9 Trial on famotidine - she has [...] Sosa Member ID Guarantor Name 03/26/2023 1 [facility] (MEDICAID HMO) [id number] Tara Hinkle [id number] Tara Hinkle Notes Date Note Type Note [...] 1.17 ng/dLmicroalbumin >1140 ug/mgglucose 181 mg/dlCr normalALT [id number]/109/6 1 Randee Kilpatrick MD [address] [facility] [address], [place], [address], [place] [employer] [facility] 03/26/2023 14:54:34 OBGyn Episode No OBEpisode recorded.
--- OUTSIDE RECORDS SUMMARY | 2024-12-15 08:04 | XMS_ITS | Clinical Summary ---
Author Organization [facility] [employer] Address [address] [place] [address] Care Team Providers Care Crisis Manager Name Role Phone Unavailable Primary Care Provider Unavailabl e Source Comments [employer],non-owned Affiliates and Associated Physician Practices is amultiple site organization consisting of ambulatory clinics and hospital sitesin [place], [place], [place] and [place]. This disclosure is being madepursuant to the Care Everywhere program and may not contain all information available regarding this patient. Last updated 18.[employer] Allergies No known active allergies Medications * Be aware that medications may not be up to date on this document. Alwaysverify current medications with the patient. glucose blood (ONETOUCH ULTRA TEST STRIPS) strip Use 1 Strip 8 times daily. For glucose monitoring. 250 6 010 Active OneTouch FinePoint Lancets MISC Use 8 Sticks daily. For glucose monitoring. 100 11 010 Active glucagon (GLUCAGON EMERGENCY) injection Inject 1 mg subcutaneously as needed 1 2 010 Active acetone(urine ) (KETOSTIX) strip Use daily. For testing. 30 6 010 Active buPROPion SR 12hr (WELLBUTRIN-S R) 100 MG tablet Take 1 Tab by mouth daily. 30 5 010 Active acetaminophen (TYLENOL) 500 MG tablet Take 1 (one) tablet by mouth every 4 hours as needed Maximum allowable Acetaminophen amount = 4 Grams / 24 hours. Active zolpidem (AMBIEN) 5 MG tablet Take 1 Tab by mouth nightly as needed for Insomnia (May take 1 more tab ). 20 Tab 0 010 Active ibuprofen (MOTRIN) 600 MG tablet Take 1 Tab by mouth every 6 hours as needed for Pain. 60 Tab 2 010 Active docusate sodium (COLACE) 100 MG capsule Take 1 Cap by mouth 2 times daily as needed for Constipation. 60 Cap 2 010 Active w/o Vit A; w/ Fe Fum-FA (-U) 106-1 MG capsule Take 1 Cap by mouth daily. 90 Cap 2 010 Active imiquimod (ALDARA) 5 % cream Apply to affected area Two times a week. 24 Each 1 010 Active escitalopram (LEXAPRO) 20 MG tablet Take 1 Tab by mouth daily. 30 Tab 1 011 Active methIMAzole (Tapazole) 5 MG tablet Take 1 (one) tablet by mouth once daily 30 tablet 2 12/01/19 25 1:52 PM CDT 025 Active pantoprazole EC (Protonix) 40 MG tabletIndicat ions:Gastroes ophageal Reflux Disease Take 1 (one) tablet by mouth once daily Reasons: Gastroesophageal Reflux Disease 30 tablet 2 025 Active gabapentin (Neurontin) 300 MG capsuleIndica tions:Diabeti c Neuropathy Take 1 (one) capsule by mouth at bedtime Reasons: Diabetes with Nerve Disease 025 Active atenolol (Tenormin) 25 MG tablet Take 1 (one) tablet by mouth once daily 30 tablet 2 025 Active oxycodone-jasper taminophen (PERCOCET) 5-325 MG tablet Take 1-2 Tabs by mouth every 4 hours as needed for Pain. 40 Tab 0 010 2024 Discontinued(L ist Clean-Up) atenolol (Tenormin) 25 MG tablet Take 1 (one) tablet by mouth once daily 30 tablet 2 025 2024 Discontinued Active Problems Problem Noted Date Diagnosed Date Essential tremor 11/23/2024 GERD (gastroesophageal reflux disease) Generalized abdominal pain 11/22/2024 Nausea and vomiting, unspecified vomiting type 0 11/22/2024 Elevated beta-hydroxybutyrate 11/22/2024 Diabetic ketoacidosis withou t coma associated with type 1 diabetes mellitus 11/22/2024 Hypokalemia 11/22/2024 Diabetic neuropathy 11/22/2024 Supervision of high-risk of young angie igravida 01/28/2018 GBS + 04/19/2010 Depression 01/12/2010 Overview (05/08/2010): Currently on Wellbutrin SR 150mg BID Non compliance with medical treatment 01/12/2010 Overview (03/27/2010): 01/12/2010: Patient did not bring blood sugar recordings 03/27/10: brought glucose recordings Genital warts 10/06/2009 Overview (02/23/2010): 10/06/[address] visible warts per Dr. Rodarte. Tobacco abuse 10/06/2009 Overview (12/15/2009): 3/18- 3-7 cig/day Quit November 2009 Previous delivery, antepartum condition or complication 10/06/2009 Overview (10/06/2009): 2 prior at [facility], pt wants repeat. Both LTCS. Need for fvjuyhf-owpwb-fbfsrkm (MMR) vaccine 06/2010 Overview (01/17/2015): MMR after delivery Type 1 diabetes mellitus with ketosis Overview (04/24/2010): dx at 7 yo, on [...] and 1h PP, HS and 3am glucose. Assessment & Plan (11/22/2024 10:30 AM CDT): -endorsing nausea, vomiting, no abdominal pain -BS <200, pH >7.4, +BHB of 3.2 - Failed PO tolerance test Plan: > Monitor Electrolytes > SSI for now, IVF w/Dextrose > Endocrine c/s to assists with Insulin pump > ADAT > Telemetry Resolved Problems Problem Noted Date Diagnosed Date Resolved Date Tachycardia 11/22/2024 11/22/2024 Diabetic ketoacidosis withou t coma associated with diabetes mellitus due to underlying condition 11/22/2024 11/22/2024 Gastroenteritis 11/22/2024 12/06/2024 Polyhydramnios 02/23/2010 01/28/2018 Overview (03/27/2010): ANT 31.8 (02/21); repeat growth/BPP/AFIs are scheduled Supervision of high-risk pre gnancy of young multigravida 10/06/2009 01/28/2018 Overview (07/03/2015): B+/Eq/-/-, HIV neg- needs MMR after deliver L=13wk GBS positive Wants BTL - sign papers @ 28wk Echo: 03/27: wnl Last Pap: 10/06/09, negative +/E/-/-; HIV neg 10/06/2009 11/10/2009 Encounters Date Type Department Care Team Description 12/07/2024 Telephone Transitional Care at [address] [phone] Prema Broussard RN Missed Appointment 12/04/2024 Telephone Transitional Care at [address] [phone] Jaci Echevarria MA Reminder Call 12/02/2024 Telephone Transitional Care at [address] [phone] Emily Jose, project management 12/02/2024 Telephone Transitional Care at [address] [phone] Emily Jose, project management 12/01/2024 Telephone Transitional Care at [address] [phone] Emily Jose, project management 11/22/2024 12:55 AM CDT - 11/30/2024 6:03 PM CDT Hospital Encounter [facility] [address] [facility] [address] [place] [address] Madelaine Johnson MD Kumar, Ashwath, MD Halani, Varun, MD Mwangi, MD Kiki Delgadillo Joseph R, MD Hoque, Farzana, MD Hospitalist Discharge Disposition: Home or Self Care 11/22/2024 Travel from Last 3 Months Immunizations Immunization Administration Dates Next Due Human Papilloma Virus [...] Date Smoking Tobacco: Every Day Cigarettes 0.5 20 Passive Smoke Exposure: Never Smokeless Tobacco: Never Tobacco Cessation:Ready to Q uit: No; Counseling Given: No Comments:interested in quitting Alcohol Use Standard Drinks/Week Comments No 0 (1 standard drink = 0.6 oz pur e alcohol) AUDIT-C Answer Date Recorded Q1: How often do you have a drink containing alcohol? Never 11/25/2024 Q2: How many drinks containi ng alcohol do you have on a typical day when you are drinking? Patient does not drink Q3: How often do you have si x or more drinks on one occasion? Never 11/25/2024 Overall Financial Resource Strain (CARDIA) Answe r Date Recorded How hard is it for you to pa y for the very basics like food, housing, medical care, and heating? Not hard at all 11/25/2024 [facility] [place] of Occupat ional Health - Occupational Stress Questionnaire Answer Date Recorded Do you feel stress - tense, restless, nervous, or anxious, or unable to sleep at night because your mind is troubled all the time - these days? Not at all 11/25/2024 Hunger Vital Sign Answer Date Recorded Within the past 12 months, y ou worried that your food would run out before you got the money to buy more. Never true 11/26/19 25 Within the past 12 months, t he food you bought just didn't last and you didn't have money to get more. Never true 11/25/2024 PRAPARE - Transportation Answer Date Re corded In the past 12 months, has l ack of transportation kept you from medical appointments or from getting medications? No 09/2024 In the past 12 months, has l ack of transportation kept you from meetings, work, or from getting things needed for daily living? No 11/25/2024 Housing Stability Vital Sign Answer José e Recorded In the last 12 months, was t here a time when you were not able to pay the mortgage or rent on time? No 11/25/2024 In the past 12 months, how m any times have you moved where you were living? 0 11/25/2024 At any time in the past 12 m [facility] were you homeless or living in a skilled nursing (including now)? 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 on file Not on file Not on file Last Filed Vital Signs Vital Sign Reading Time Taken Comments Blood Pressure 102/49 11/30/2024 12:07 PM CDT Pulse 98 11/30/2024 12:07 PM CDT Temperature 36.9 C (98.5 F) 11/30/2024 12:07 PM CDT Respiratory Rate 20 11/30/2024 4:12 AM CDT Oxygen Saturation 98% 11/30/2024 12:07 PM CDT Inhaled Oxygen Concentration - - Weight 58 kg (127 lb 12.8 oz) 11/30/2024 4:12 AM CDT Height 162.6 cm (5' 4 ) 11/22/2024 9:30 PM CDT Body Mass Index 21.94 11/22/2024 9:30 PM CDT Plan of Treatment Health Maintenance Due Date Last Done Comments DTAP/TDAP/TD VACCINES (1 - Tdap) 2006 HEPATITIS B VACCINE (1 of 3 - 19+ 3-dose series) 2006 PNEUMOCOCCAL VACCINE (1 of 2 - PCV) 2006 HPV VACCINE (3 - 3-dose series) 02/02/2011 11/10/2010, 07/10/2010 PAP SMEAR 11/10/2013 11/10/2010, 10/24, 10/06/2009 COVID-19 VACCINE (1 - 2023- season) 2024 DEPRESSION SCREENING 08/26/2024 DIABETES - URINE PROTEIN SCREENING 08/26/2024 DIABETES RETINOPATHY SCREENING 11/22/2024 DIABETES-FOOT EXAM WITH MONOFILAMENT 11/22/2024 DIABETES-HGB A1C 05/25/2025 11/23/2024, 01/2017, 04/24/2010, Additional history exists DIABETES-SERUM CREATININE 11/30/20252024, 11/29/2024, 11/28/2024, Additional history exists ZOSTER VACCINE (1 of 2) 2037 HEPATITIS C SCREENING Completed 11/10/2010 HIV SCREENING Completed 11/10/2010, 10/06/2009 INFLUENZA VACCINE Completed 07/15/2024, , 06/24/2018, Additional history exists HIB VACCINE Aged Out No longer eligi ble based on patient's age to complete this topic MENINGOCOCCAL (Group B) VACCINE SHARED DECISION-MAKING Aged Out No longer eligible based on patient's age to complete this topic MENINGOCOCCAL GROUPS A/C/Y/W VACCINE Aged Out No longer eligible based on patient's age to complete this topic Procedures Procedure Name Priority Date/Time Associated Diagnosis Comments GLUCOSE - POINT OF CARE Routine 12/01/19 4:09 PM CDT GLUCOSE - POINT OF CARE Routine 12/01/19 12:08 PM CDT RENAL FUNCTION PANEL AM Draw 11/30/2024 8:35 AM CDT MAGNESIUM BLOOD AM Draw 11/30/2024 8:35 AM CDT Nausea and vomiting, unspecified vomiting type Diabetic ketoacidosis without coma associated with type 1 diabetes mellitus (HCC) CBC W/O DIFFERENTIAL Routine 11/30/2024 8:35 AM CDT Nausea and vomiting, unspecified vomiting type GLUCOSE - POINT OF CARE Routine 12/01/19 8:02 AM CDT GLUCOSE - POINT OF CARE Routine 12/01/19 4:10 AM CDT GLUCOSE - POINT OF CARE Routine 12/01/19 12:36 AM CDT GLUCOSE - POINT OF CARE Routine 11/30/19 9:12 PM CDT GLUCOSE - POINT OF CARE Routine 11/30/19 6:08 PM CDT GLUCOSE - POINT OF CARE Routine 11/30/19 4:42 PM CDT PT EVAL AND TREAT Routine 11/29/2024 4:0 2 PM CDT OT EVAL AND TREAT Routine 11/29/2024 4:0 2 PM CDT GLUCOSE - POINT OF CARE Routine 11/30/19 11:35 AM CDT MAGNESIUM BLOOD Routine 11/29/2024 11:35 AM CDT Nausea and vomiting, unspecified vomiting type Diabetic ketoacidosis without coma associated with type 1 diabetes mellitus (HCC) BASIC METABOLIC PANEL (CALCIUM TOTAL) Timed 11/29/2024 11:35 AM CDT Diabetic ketoacidosis without coma associated with type 1 diabetes mellitus (HCC) PHOSPHORUS BLOOD Timed 11/29/2024 11:3 5 AM CDT Diabetic ketoacidosis without coma associated with type 1 diabetes mellitus (HCC) GLUCOSE - POINT OF CARE Routine 11/30/19 8:13 AM CDT GLUCOSE - POINT OF CARE Routine 11/30/19 6:14 AM CDT GLUCOSE - POINT OF CARE Routine 11/30/19 4:18 AM CDT GLUCOSE - POINT OF CARE Routine 11/30/19 2:49 AM CDT GLUCOSE - POINT OF CARE Routine 11/30/19 2:09 AM CDT GLUCOSE - POINT OF CARE Routine 11/29/19 11:50 PM CDT CBC W/O DIFFERENTIAL Routine 11/28/2024 11:50 PM CDT Nausea and vomiting, unspecified vomiting type MAGNESIUM BLOOD Routine 11/28/2024 11:50 PM CDT Nausea and vomiting, unspecified vomiting type Diabetic ketoacidosis without coma associated with type 1 diabetes mellitus (HCC) BASIC METABOLIC PANEL (CALCIUM TOTAL) Timed 11/28/2024 11:50 PM CDT Diabetic ketoacidosis without coma associated with type 1 diabetes mellitus (HCC) PHOSPHORUS BLOOD Timed 11/28/2024 11:5 0 PM CDT Diabetic ketoacidosis without coma associated with type 1 diabetes mellitus (HCC) GLUCOSE - POINT OF CARE Routine 11/29/19 9:53 PM CDT GLUCOSE - POINT OF CARE Routine 11/29/19 7:57 PM CDT GLUCOSE - POINT OF CARE Routine 11/29/19 6:00 PM CDT GLUCOSE - POINT OF CARE Routine 11/29/19 4:30 PM CDT GLUCOSE - POINT OF CARE Routine 11/29/19 4:26 PM CDT US THYROID STAT 11/28/2024 1:45 PM CDT Hyperthyroidism FOLATE Routine 11/28/2024 12:18 PM CDT VITAMIN B12 Routine 11/28/2024 12:18 PM CDT FERRITIN Routine 11/28/2024 12:18 PM CDT IRON + TRANSFERRIN PANEL Routine 11/28/2024 12:18 PM CDT MAGNESIUM BLOOD Routine 11/28/2024 12:18 PM CDT Nausea and vomiting, unspecified vomiting type Diabetic ketoacidosis without coma associated with type 1 diabetes mellitus (HCC) BASIC METABOLIC PANEL (CALCIUM TOTAL) Timed 11/28/2024 12:18 PM CDT Diabetic ketoacidosis without coma associated with type 1 diabetes mellitus (HCC) PHOSPHORUS BLOOD Timed 11/28/2024 12:1 8 PM CDT Diabetic ketoacidosis without coma associated with type 1 diabetes mellitus (HCC) GLUCOSE - POINT OF CARE Routine 11/29/19 12:11 PM CDT GLUCOSE - POINT OF CARE Routine 11/29/19 10:14 AM CDT ACTH 60 MINUTES Timed 11/28/2024 9:22 AM CDT ACTH 30 MINUTES Timed 11/28/2024 8:49 AM CDT ACTH CORTISOL BASELINE STAT 8:14 AM CDT GLUCOSE - POINT OF CARE Routine 11/29/19 8:06 AM CDT GLUCOSE - POINT OF CARE Routine 11/29/19 7:04 AM CDT GLUCOSE - POINT OF CARE Routine 11/29/19 6:15 AM CDT THYROID STIMULATING IMMUNOGLOBULIN (TSI) AM Draw 11/28/2024 4:26 AM CDT Hyperthyroidism TSH RECEPTOR ANTIBODY AM Draw 11/28/2024 4:26 AM CDT Hyperthyroidism THYROID PEROXIDASE ANTIBODY AM Draw 11/28/2024 4:26 AM CDT Hyperthyroidism TSH AM Draw 11/28/2024 4:26 AM CDT Hyperthyroidism T3 FREE Routine 11/28/2024 4:26 AM CDT Hyperthyroidism T3 TOTAL AM Draw 11/28/2024 4:26 AM CDT Hyperthyroidism T4 FREE Routine 11/28/2024 4:26 AM CDT Hyperthyroidism T4 TOTAL AM Draw 11/28/2024 4:26 AM CDT Hyperthyroidism CORTISOL BLOOD AM Routine 11/28/2024 4:2 6 AM CDT GLUCOSE - POINT OF CARE Routine 11/29/19 4:24 AM CDT GLUCOSE - POINT OF CARE Routine 11/29/19 2:24 AM CDT CBC W/O DIFFERENTIAL Routine 11/28/2024 12:32 AM CDT Nausea and vomiting, unspecified vomiting type MAGNESIUM BLOOD Routine 11/28/2024 12:32 AM CDT Nausea and vomiting, unspecified vomiting type Diabetic ketoacidosis without coma associated with type 1 diabetes mellitus (HCC) BASIC METABOLIC PANEL (CALCIUM TOTAL) Timed 11/28/2024 12:32 AM CDT Diabetic ketoacidosis without coma associated with type 1 diabetes mellitus (HCC) PHOSPHORUS BLOOD Timed 11/28/2024 12:3 2 AM CDT Diabetic ketoacidosis without coma associated with type 1 diabetes mellitus (HCC) GLUCOSE - POINT OF CARE Routine 11/29/19 12:31 AM CDT GLUCOSE - POINT OF CARE Routine 11/28/19 10:03 PM CDT GLUCOSE - POINT OF CARE Routine 11/28/19 8:43 PM CDT GLUCOSE - POINT OF CARE Routine 11/28/19 5:42 PM CDT GLUCOSE - POINT OF CARE Routine 11/28/19 4:03 PM CDT GLUCOSE - POINT OF CARE Routine 11/28/19 2:03 PM CDT HYDROXYBUTYRATE BETA [place] 11/27/2024 12:08 PM CDT MAGNESIUM BLOOD Routine 11/27/2024 12:08 PM CDT Nausea and vomiting, unspecified vomiting type Diabetic ketoacidosis without coma associated with type 1 diabetes mellitus (HCC) BASIC METABOLIC PANEL (CALCIUM TOTAL) Timed 11/27/2024 12:08 PM CDT Diabetic ketoacidosis without coma associated with type 1 diabetes mellitus (HCC) PHOSPHORUS BLOOD Timed 11/27/2024 12:0 8 PM CDT Diabetic ketoacidosis without coma associated with type 1 diabetes mellitus (HCC) GLUCOSE - POINT OF CARE Routine 11/28/19 12:07 PM CDT GLUCOSE - POINT OF CARE Routine 11/28/19 11:58 AM CDT EKG 12-LEAD Routine 11/27/2024 10:58 AM CDT Type 1 diabetes mellitus with ketosis (HCC) OSMOLALITY URINE [place] 11/27/2024 10:4 8 AM CDT CREATININE URINE RANDOM Routine 11/28/19 10:48 AM CDT UREA NITROGEN URINE RANDOM Routine 11/27/2024 10:48 AM CDT LYTES (NA K CL) URINE RANDOM PANEL Routine 11/27/2024 10:48 AM CDT URINALYSIS REFLEX TO MICROSCOPIC NO CULTURE Routine 11/27/2024 10:[address] HEAD WO CONTRAST Routine 11/27/2024 9 :41 AM CDT Diabetic ketoacidosis without coma associated with diabetes mellitus due to underlying condition (HCC) T4 FREE STAT 11/27/2024 8:20 AM CDT TSH REFLEX FREE T4 STAT 11/27/2024 8: 20 AM CDT BASIC METABOLIC PANEL (CALCIUM TOTAL) STAT 11/27/2024 8:20 AM CDT GLUCOSE - POINT OF CARE Routine 11/28/19 7:51 AM CDT GLUCOSE - POINT OF CARE Routine 11/28/19 4:36 AM CDT GLUCOSE - POINT OF CARE Routine 11/28/19 3:22 AM CDT GLUCOSE - POINT OF CARE Routine 11/28/19 2:53 AM CDT GLUCOSE - POINT OF CARE Routine 11/28/19 12:56 AM CDT GLUCOSE - POINT OF CARE Routine 11/27/19 11:56 PM CDT MAGNESIUM BLOOD Routine 11/26/2024 11:56 PM CDT Nausea and vomiting, unspecified vomiting type Diabetic ketoacidosis without coma associated with type 1 diabetes mellitus (HCC) CBC W/O DIFFERENTIAL Routine 11/26/2024 11:56 PM CDT Nausea and vomiting, unspecified vomiting type BASIC METABOLIC PANEL (CALCIUM TOTAL) Timed 11/26/2024 11:56 PM CDT Diabetic ketoacidosis without coma associated with type 1 diabetes mellitus (HCC) PHOSPHORUS BLOOD Timed 11/26/2024 11:5 6 PM CDT Diabetic ketoacidosis without coma associated with type 1 diabetes mellitus (HCC) GLUCOSE - POINT OF CARE Routine 11/27/19 9:05 PM CDT GLUCOSE - POINT OF CARE Routine 11/27/19 5:13 PM CDT GLUCOSE - POINT OF CARE Routine 11/27/19 2:38 PM CDT GLUCOSE - POINT OF CARE Routine 11/27/19 1:32 PM CDT GLUCOSE - POINT OF CARE Routine 11/27/19 12:27 PM CDT GLUCOSE - POINT OF CARE Routine 11/27/19 11:28 AM CDT MAGNESIUM BLOOD Routine 11/26/2024 11:05 AM CDT Nausea and vomiting, unspecified vomiting type Diabetic ketoacidosis without coma associated with type 1 diabetes mellitus (HCC) PHOSPHORUS BLOOD Timed 11/26/2024 11:0 5 AM CDT Diabetic ketoacidosis without coma associated with type 1 diabetes mellitus (HCC) BASIC METABOLIC PANEL (CALCIUM TOTAL) Timed 11/26/2024 11:05 AM CDT Diabetic ketoacidosis without coma associated with type 1 diabetes mellitus (HCC) GLUCOSE - POINT OF CARE Routine 11/27/19 10:10 AM CDT GLUCOSE - POINT OF CARE Routine 11/27/19 8:58 AM CDT GLUCOSE - POINT OF CARE Routine 11/27/19 8:08 AM CDT GLUCOSE - POINT OF CARE Routine 11/27/19 7:05 AM CDT GLUCOSE - POINT OF CARE Routine 11/27/19 6:14 AM CDT CBC W/O DIFFERENTIAL Routine 11/26/2024 4:40 AM CDT Nausea and vomiting, unspecified vomiting type MAGNESIUM BLOOD Routine 11/26/2024 4:40 AM CDT Nausea and vomiting, unspecified vomiting type Diabetic ketoacidosis without coma associated with type 1 diabetes mellitus (HCC) PHOSPHORUS BLOOD Timed 11/26/2024 4:40 AM CDT Diabetic ketoacidosis without coma associated with type 1 diabetes mellitus (HCC) BASIC METABOLIC PANEL (CALCIUM TOTAL) Timed 11/26/2024 4:40 AM CDT Diabetic ketoacidosis without coma associated with type 1 diabetes mellitus (HCC) GLUCOSE - POINT OF CARE Routine 11/27/19 4:39 AM CDT GLUCOSE - POINT OF CARE Routine 11/27/19 2:33 AM CDT GLUCOSE - POINT OF CARE Routine 11/27/19 1:32 AM CDT MAGNESIUM BLOOD Routine 11/26/2024 12:07 AM CDT Nausea and vomiting, unspecified vomiting type Diabetic ketoacidosis without coma associated with type 1 diabetes mellitus (HCC) PHOSPHORUS BLOOD Timed 11/26/2024 12:0 7 AM CDT Diabetic ketoacidosis without coma associated with type 1 diabetes mellitus (HCC) BASIC METABOLIC PANEL (CALCIUM TOTAL) Timed 11/26/2024 12:07 AM CDT Diabetic ketoacidosis without coma associated with type 1 diabetes mellitus (HCC) GLUCOSE - POINT OF CARE Routine 11/27/19 12:00 AM CDT GLUCOSE - POINT OF CARE Routine 11/26/19 10:22 PM CDT GLUCOSE - POINT OF CARE Routine 11/26/19 9:58 PM CDT MAGNESIUM BLOOD Routine 11/25/2024 9:57 PM CDT Nausea and vomiting, unspecified vomiting type Diabetic ketoacidosis without coma associated with type 1 diabetes mellitus (HCC) PHOSPHORUS BLOOD Timed 11/25/2024 9:57 PM CDT Diabetic ketoacidosis without coma associated with type 1 diabetes mellitus (HCC) BASIC METABOLIC PANEL (CALCIUM TOTAL) Timed 11/25/2024 9:57 PM CDT Diabetic ketoacidosis without coma associated with type 1 diabetes mellitus (HCC) GLUCOSE - POINT OF CARE Routine 11/26/19 9:56 PM CDT GLUCOSE - POINT OF CARE Routine 11/26/19 9:15 PM CDT GLUCOSE - POINT OF CARE Routine 11/26/19 9:13 PM CDT GLUCOSE - POINT OF CARE Routine 11/26/19 8:06 PM CDT GLUCOSE - POINT OF CARE Routine 11/26/19 7:18 PM CDT GLUCOSE - POINT OF CARE Routine 11/26/19 6:05 PM CDT GLUCOSE - POINT OF CARE Routine 11/26/19 5:24 PM CDT GLUCOSE - POINT OF CARE Routine 11/26/19 4:18 PM CDT GLUCOSE - POINT OF CARE Routine 11/26/19 3:14 PM CDT HYDROXYBUTYRATE BETA STAT 11/25/2024 2:40 PM CDT MAGNESIUM BLOOD Routine 11/25/2024 2:40 PM CDT Nausea and vomiting, unspecified vomiting type Diabetic ketoacidosis without coma associated with type 1 diabetes mellitus (HCC) PHOSPHORUS BLOOD Timed 11/25/2024 2:40 PM CDT Diabetic ketoacidosis without coma associated with type 1 diabetes mellitus (HCC) BASIC METABOLIC PANEL (CALCIUM TOTAL) Timed 11/25/2024 2:40 PM CDT Diabetic ketoacidosis without coma associated with type 1 diabetes mellitus (HCC) GLUCOSE - POINT OF CARE Routine 11/26/19 2:10 PM CDT GLUCOSE - POINT OF CARE Routine 11/26/19 1:21 PM CDT GLUCOSE - POINT OF CARE Routine 11/26/19 9:06 AM CDT GLUCOSE - POINT OF CARE Routine 11/26/19 8:53 AM CDT TROPONIN-I HIGH SENSITIVE STAT 11/25/2024 8:26 AM CDT MAGNESIUM BLOOD Routine 11/25/2024 8:26 AM CDT Nausea and vomiting, unspecified vomiting type Diabetic ketoacidosis without coma associated with type 1 diabetes mellitus (HCC) PHOSPHORUS BLOOD Timed 11/25/2024 8:26 AM CDT Diabetic ketoacidosis without coma associated with type 1 diabetes mellitus (HCC) BASIC METABOLIC PANEL (CALCIUM TOTAL) Timed 11/25/2024 8:26 AM CDT Diabetic ketoacidosis without coma associated with type 1 diabetes mellitus (HCC) EKG 12-LEAD STAT 11/25/2024 8:15 AM CDT Gastroesophageal reflux disease with esophagitis, unspecified whether hemorrhage GLUCOSE - POINT OF CARE Routine 11/26/19 3:45 AM CDT CBC W/O DIFFERENTIAL Routine 11/25/2024 3:41 AM CDT Nausea and vomiting, unspecified vomiting type MAGNESIUM BLOOD Routine 11/25/2024 3:41 AM CDT Nausea and vomiting, unspecified vomiting type Diabetic ketoacidosis without coma associated with type 1 diabetes mellitus (HCC) PHOSPHORUS BLOOD Timed 11/25/2024 3:41 AM CDT Diabetic ketoacidosis without coma associated with type 1 diabetes mellitus (HCC) BASIC METABOLIC PANEL (CALCIUM TOTAL) Timed 11/25/2024 3:41 AM CDT Diabetic ketoacidosis without coma associated with type 1 diabetes mellitus (HCC) MAGNESIUM BLOOD Routine 11/25/2024 12:59 AM CDT Nausea and vomiting, unspecified vomiting type Diabetic ketoacidosis without coma associated with type 1 diabetes mellitus (HCC) BASIC METABOLIC PANEL (CALCIUM TOTAL) Timed 11/25/2024 12:59 AM CDT Diabetic ketoacidosis without coma associated with type 1 diabetes mellitus (HCC) GLUCOSE - POINT OF CARE Routine 11/26/19 12:12 AM CDT PHOSPHORUS BLOOD Timed 11/25/2024 12:1 1 AM CDT Diabetic ketoacidosis without coma associated with type 1 diabetes mellitus (HCC) GLUCOSE - POINT OF CARE Routine 11/25/19 10:06 PM CDT TROPONIN-I HIGH SENSITIVE STAT 11/24/2024 9:09 PM CDT EKG 12-LEAD STAT 11/24/2024 8:54 PM CDT Tachycardia GLUCOSE - POINT OF CARE Routine 11/25/19 8:32 PM CDT MAGNESIUM BLOOD Routine 11/24/2024 8:31 PM CDT Nausea and vomiting, unspecified vomiting type Diabetic ketoacidosis without coma associated with type 1 diabetes mellitus (HCC) PHOSPHORUS BLOOD Timed 11/24/2024 8:31 PM CDT Diabetic ketoacidosis without coma associated with type 1 diabetes mellitus (HCC) BASIC METABOLIC PANEL (CALCIUM TOTAL) Timed 11/24/2024 8:31 PM CDT Diabetic ketoacidosis without coma associated with type 1 diabetes mellitus (HCC) GLUCOSE - POINT OF CARE Routine 11/25/19 5:27 PM CDT MAGNESIUM BLOOD Routine 11/24/2024 4:36 PM CDT Nausea and vomiting, unspecified vomiting type Diabetic ketoacidosis without coma associated with type 1 diabetes mellitus (HCC) PHOSPHORUS BLOOD Timed 11/24/2024 4:36 PM CDT Diabetic ketoacidosis without coma associated with type 1 diabetes mellitus (HCC) BASIC METABOLIC PANEL (CALCIUM TOTAL) Timed 11/24/2024 4:36 PM CDT Diabetic ketoacidosis without coma associated with type 1 diabetes mellitus (HCC) GLUCOSE - POINT OF CARE Routine 11/25/19 2:44 PM CDT GLUCOSE - POINT OF CARE Routine 11/25/19 1:31 PM CDT GLUCOSE - POINT OF CARE Routine 11/25/19 12:30 PM CDT GLUCOSE - POINT OF CARE Routine 11/25/19 11:33 AM CDT MAGNESIUM BLOOD Routine 11/24/2024 11:30 AM CDT Nausea and vomiting, unspecified vomiting type Diabetic ketoacidosis without coma associated with type 1 diabetes mellitus (HCC) PHOSPHORUS BLOOD Timed 11/24/2024 11:3 0 AM CDT Diabetic ketoacidosis without coma associated with type 1 diabetes mellitus (HCC) BASIC METABOLIC PANEL (CALCIUM TOTAL) Timed 11/24/2024 11:30 AM CDT Diabetic ketoacidosis without coma associated with type 1 diabetes mellitus (HCC) GLUCOSE - POINT OF CARE Routine 11/25/19 10:29 AM CDT GLUCOSE - POINT OF CARE Routine 11/25/19 9:22 AM CDT MAGNESIUM BLOOD Routine 11/24/2024 7:46 AM CDT Nausea and vomiting, unspecified vomiting type Diabetic ketoacidosis without coma associated with type 1 diabetes mellitus (HCC) PHOSPHORUS BLOOD Timed 11/24/2024 7:46 AM CDT Diabetic ketoacidosis without coma associated with type 1 diabetes mellitus (HCC) BASIC METABOLIC PANEL (CALCIUM TOTAL) Timed 11/24/2024 7:46 AM CDT Diabetic ketoacidosis without coma associated with type 1 diabetes mellitus (HCC) GLUCOSE - POINT OF CARE Routine 11/25/19 7:45 AM CDT GLUCOSE - POINT OF CARE Routine 11/25/19 6:25 AM CDT GLUCOSE - POINT OF CARE Routine 11/25/19 5:37 AM CDT GLUCOSE - POINT OF CARE Routine 11/25/19 4:33 AM CDT GLUCOSE - POINT OF CARE Routine 11/25/19 3:46 AM CDT MAGNESIUM BLOOD Routine 11/24/2024 3:44 AM CDT Nausea and vomiting, unspecified vomiting type Diabetic ketoacidosis without coma associated with type 1 diabetes mellitus (HCC) PHOSPHORUS BLOOD Timed 11/24/2024 3:44 AM CDT Diabetic ketoacidosis without coma associated with type 1 diabetes mellitus (HCC) BASIC METABOLIC PANEL (CALCIUM TOTAL) Timed 11/24/2024 3:44 AM CDT Diabetic ketoacidosis without coma associated with type 1 diabetes mellitus (HCC) GLUCOSE - POINT OF CARE Routine 11/25/19 2:51 AM CDT GLUCOSE - POINT OF CARE Routine 11/25/19 1:48 AM CDT GLUCOSE - POINT OF CARE Routine 11/25/19 12:34 AM CDT CBC W/O DIFFERENTIAL Routine 11/24/2024 12:31 AM CDT Nausea and vomiting, unspecified vomiting type MAGNESIUM BLOOD Routine 11/24/2024 12:31 AM CDT Nausea and vomiting, unspecified vomiting type Diabetic ketoacidosis without coma associated with type 1 diabetes mellitus (HCC) PHOSPHORUS BLOOD Timed 11/24/2024 12:3 1 AM CDT Diabetic ketoacidosis without coma associated with type 1 diabetes mellitus (HCC) BASIC METABOLIC PANEL (CALCIUM TOTAL) Timed 11/24/2024 12:31 AM CDT Diabetic ketoacidosis without coma associated with type 1 diabetes mellitus (HCC) GLUCOSE - POINT OF CARE Routine 11/24/19 11:27 PM CDT GLUCOSE - POINT OF CARE Routine 11/24/19 10:14 PM CDT GLUCOSE - POINT OF CARE Routine 11/24/19 9:21 PM CDT GLUCOSE - POINT OF CARE Routine 11/24/19 8:07 PM CDT MAGNESIUM BLOOD Routine 11/23/2024 8:05 PM CDT Nausea and vomiting, unspecified vomiting type Diabetic ketoacidosis without coma associated with type 1 diabetes mellitus PHOSPHORUS BLOOD Timed 11/23/2024 8:05 PM CDT Diabetic ketoacidosis without coma associated with type 1 diabetes mellitus BASIC METABOLIC PANEL (CALCIUM TOTAL) Timed 11/23/2024 8:05 PM CDT Diabetic ketoacidosis without coma associated with type 1 diabetes mellitus GLUCOSE - POINT OF CARE Routine 11/24/19 7:07 PM CDT GLUCOSE - POINT OF CARE Routine 11/24/19 6:16 PM CDT GLUCOSE - POINT OF CARE Routine 11/24/19 4:56 PM CDT GLUCOSE - POINT OF CARE Routine 11/24/19 4:12 PM CDT MAGNESIUM BLOOD Routine 11/23/2024 4:12 PM CDT Nausea and vomiting, unspecified vomiting type Diabetic ketoacidosis without coma associated with type 1 diabetes mellitus PHOSPHORUS BLOOD Timed 11/23/2024 4:12 PM CDT Diabetic ketoacidosis without coma associated with type 1 diabetes mellitus BASIC METABOLIC PANEL (CALCIUM TOTAL) Timed 11/23/2024 4:12 PM CDT Diabetic ketoacidosis without coma associated with type 1 diabetes mellitus GLUCOSE - POINT OF CARE Routine 11/24/19 3:09 PM CDT GLUCOSE - POINT OF CARE Routine 11/24/19 1:58 PM CDT MAGNESIUM BLOOD Routine 11/23/2024 1:13 PM CDT Nausea and vomiting, unspecified vomiting type Diabetic ketoacidosis without coma associated with type 1 diabetes mellitus PHOSPHORUS BLOOD Timed 11/23/2024 1:13 PM CDT Diabetic ketoacidosis without coma associated with type 1 diabetes mellitus BASIC METABOLIC PANEL (CALCIUM TOTAL) Timed 11/23/2024 1:13 PM CDT Diabetic ketoacidosis without coma associated with type 1 diabetes mellitus GLUCOSE - POINT OF CARE Routine 11/24/19 12:40 PM CDT CARDIAC EKG ORDER 11/23/2024 12: 01 PM CDT GLUCOSE - POINT OF CARE Routine 11/24/19 10:50 AM CDT GLUCOSE - POINT OF CARE Routine 11/24/19 10:00 AM CDT GLUCOSE - POINT OF CARE Routine 11/24/19 8:56 AM CDT MAGNESIUM BLOOD Routine 11/23/2024 8:17 AM CDT Nausea and vomiting, unspecified vomiting type Diabetic ketoacidosis without coma associated with type 1 diabetes mellitus PHOSPHORUS BLOOD Timed 11/23/2024 8:17 AM CDT Diabetic ketoacidosis without coma associated with type 1 diabetes mellitus BASIC METABOLIC PANEL (CALCIUM TOTAL) Timed 11/23/2024 8:17 AM CDT Diabetic ketoacidosis without coma associated with type 1 diabetes mellitus GLUCOSE - POINT OF CARE Routine 11/24/19 8:11 AM CDT GLUCOSE - POINT OF CARE Routine 11/24/19 6:46 AM CDT GLUCOSE - POINT OF CARE Routine 11/24/19 6:45 AM CDT GLUCOSE - POINT OF CARE Routine 11/24/19 6:04 AM CDT BLOOD TYPE VERIFICATION STAT 11/24/19 6:02 AM CDT GLUCOSE - POINT OF CARE Routine 11/24/19 3:51 AM CDT CBC W/O DIFFERENTIAL Routine 11/23/2024 3:50 AM CDT Nausea and vomiting, unspecified vomiting type MAGNESIUM BLOOD Routine 11/23/2024 3:50 AM CDT Nausea and vomiting, unspecified vomiting type Diabetic ketoacidosis without coma associated with type 1 diabetes mellitus PHOSPHORUS BLOOD Timed 11/23/2024 3:50 AM CDT Diabetic ketoacidosis without coma associated with type 1 diabetes mellitus BASIC METABOLIC PANEL (CALCIUM TOTAL) Timed 11/23/2024 3:50 AM CDT Diabetic ketoacidosis without coma associated with type 1 diabetes mellitus HYDROXYBUTYRATE BETA AM Draw 11/23/2024 3:50 AM CDT Elevated beta-hydroxybutyrat e HEMOGLOBIN A1C Routine 11/23/2024 3:50 AM CDT Nausea and vomiting, unspecified vomiting type GLUCOSE - POINT OF CARE Routine 11/24/19 2:18 AM CDT GLUCOSE - POINT OF CARE Routine 11/24/19 1:04 AM CDT GLUCOSE - POINT OF CARE Routine 11/23/19 11:32 PM CDT MAGNESIUM BLOOD Routine 11/22/2024 11:32 PM CDT Nausea and vomiting, unspecified vomiting type Diabetic ketoacidosis without coma associated with type 1 diabetes mellitus PHOSPHORUS BLOOD Timed 11/22/2024 11:3 2 PM CDT Diabetic ketoacidosis without coma associated with type 1 diabetes mellitus BASIC METABOLIC PANEL (CALCIUM TOTAL) Timed 11/22/2024 11:32 PM CDT Diabetic ketoacidosis without coma associated with type 1 diabetes mellitus CULTURE BLOOD Timed 11/22/2024 10:26 PM CDT Diabetic ketoacidosis without coma associated with diabetes mellitus due to underlying condition GLUCOSE - POINT OF CARE Routine 11/23/19 10:23 PM CDT CULTURE BLOOD Timed 11/22/2024 10:10 PM CDT Diabetic ketoacidosis without coma associated with diabetes mellitus due to underlying condition GLUCOSE - POINT OF CARE Routine 11/23/19 9:16 PM CDT MAGNESIUM BLOOD STAT 11/22/2024 9:16 PM CDT Nausea and vomiting, unspecified vomiting type Diabetic ketoacidosis without coma associated with type 1 diabetes mellitus PHOSPHORUS BLOOD Timed 11/22/2024 9:16 PM CDT Diabetic ketoacidosis without coma associated with type 1 diabetes mellitus BASIC METABOLIC PANEL (CALCIUM TOTAL) Timed 11/22/2024 9:16 PM CDT Diabetic ketoacidosis without coma associated with type 1 diabetes mellitus GLUCOSE - POINT OF CARE Routine 11/23/19 7:45 PM CDT GLUCOSE - POINT OF CARE Routine 11/23/19 6:[address] CHEST PE W ABD PELVIS W CONT STAT 11/22/2024 6:01 PM CDT Generalized abdominal pain Nausea and vomiting, unspecified vomiting type Tachycardia Diabetic ketoacidosis without coma associated with type 1 diabetes mellitus GLUCOSE - POINT OF CARE Routine 11/23/19 5:33 PM CDT MAGNESIUM BLOOD STAT 11/22/2024 4:41 PM CDT Nausea and vomiting, unspecified vomiting type Diabetic ketoacidosis without coma associated with type 1 diabetes mellitus PHOSPHORUS BLOOD Timed 11/22/2024 4:41 PM CDT Diabetic ketoacidosis without coma associated with type 1 diabetes mellitus BASIC METABOLIC PANEL (CALCIUM TOTAL) Timed 11/22/2024 4:41 PM CDT Diabetic ketoacidosis without coma associated with type 1 diabetes mellitus TYPE + SCREEN PANEL STAT 11/22/2024 4 :40 PM CDT PTT SLH STAT 11/22/2024 4:40 PM CDT Generalized abdominal pain Nausea and vomiting, unspecified vomiting type Diabetic ketoacidosis without coma associated with type 1 diabetes mellitus Coffee ground emesis PT-INR SLH STAT 11/22/2024 4:40 PM CDT Generalized abdominal pain Nausea and vomiting, unspecified vomiting type Diabetic ketoacidosis without coma associated with type 1 diabetes mellitus Coffee ground emesis GLUCOSE - POINT OF CARE Routine 11/23/19 4:34 PM CDT URINE DRUG SCREEN IMMUNOASSAY STAT 11/22/2024 3:45 PM CDT Generalized abdominal pain Nausea and vomiting, unspecified vomiting type Tachycardia Elevated beta-hydroxybutyrat e Diabetic ketoacidosis without coma associated with type 1 diabetes mellitus Diabetic ketoacidosis without coma associated with diabetes mellitus due to underlying condition GLUCOSE - POINT OF CARE Routine 11/23/19 3:06 PM CDT GLUCOSE - POINT OF CARE Routine 11/23/19 2:06 PM CDT HYDROXYBUTYRATE BETA STAT 11/22/2024 12:53 PM CDT Generalized abdominal pain Nausea and vomiting, unspecified vomiting type Tachycardia Elevated beta-hydroxybutyrat e Diabetic ketoacidosis without coma associated with type 1 diabetes mellitus BLOOD GASES LYNN + COOX PANEL STAT 11/22/2024 12:53 PM CDT PHOSPHORUS BLOOD Timed 11/22/2024 12:5 3 PM CDT Diabetic ketoacidosis without coma associated with type 1 diabetes mellitus BASIC METABOLIC PANEL (CALCIUM TOTAL) Timed 11/22/2024 12:53 PM CDT Diabetic ketoacidosis without coma associated with type 1 diabetes mellitus XR ABDOMEN KUB PORTABLE STAT 11/23/19 12:07 PM CDT Nausea and vomiting, unspecified vomiting type GLUCOSE - POINT OF CARE Routine 11/23/19 12:06 PM CDT MAGNESIUM BLOOD STAT 11/22/2024 11:27 AM CDT Nausea and vomiting, unspecified vomiting type BASIC METABOLIC PANEL (CALCIUM TOTAL) STAT 11/22/2024 11:27 AM CDT Nausea and vomiting, unspecified vomiting type GLUCOSE - POINT OF CARE Routine 11/23/19 8:29 AM CDT URINALYSIS REFLEX MICROSCOPIC REFLEX CULTURE STAT 11/22/2024 6:40 AM CDT CK BLOOD STAT 11/22/2024 4:29 AM CDT LACTIC ACID BLOOD REFLEX TO REPEAT STAT 11/22/2024 2:43 AM CDT LIPASE BLOOD STAT 11/22/2024 2:43 AM CDT BLOOD GASES LYNN + COOX PANEL STAT 11/22/2024 2:43 AM CDT SARS-COV-2 (COVID-19)+INFLU A+B PCR RAPID STAT 11/22/2024 1:59 AM CDT HCG BETA BLOOD QUANTITATIVE STAT 11/22/2024 12:41 AM CDT HYDROXYBUTYRATE BETA STAT 11/22/2024 12:41 AM CDT COMPREHENSIVE METABOLIC PANEL STAT 11/22/2024 12:41 AM CDT CBC W AUTO DIFFERENTIAL STAT 11/23/19 12:41 AM CDT EKG 12-LEAD STAT 11/22/2024 12:26 AM CDT Generalized abdominal pain HEPATITIS C ANTIBODY Today 11/10/2010 4:35 PM CDT HIV-1 HIV-2 ANTIBODY Today 11/10/2010 4:35 PM CDT CYTOLOGY CERVICAL/VAG PAP SCREEN THIN PREP Today 11/10/2010 4:30 PM CDT from Last 3 Months or Most Recently Relevant to Health Maintenance Results * (ABNORMAL) GLUCOSE - POINT OF CARE (11/30/2024 4:09 PM CDT) Only the most recent of122 resultswithin the time period is included. Pathologist [facility] Glucose WB/POC 233(H) 70 - 99 mg/dL 11/30/2024 4:58 PM CDT [facility] Specimen Type Cap Fingerstick 2024 4:58 PM CDT [facility] Blood BLOOD SPECIMEN / Unknown 11/30/2024 4:09 PM CDT 11/30/2024 4:58 PM CDT Constance Houser MD LAB - POINT OF CARE ORDERABLES Final Result [address] [address], [facility] [phone] * (ABNORMAL) CBC W/O DIFFERENTIAL (11/30/2024 8:35 AM CDT) Only the most recent of8 resultswithin the time period is included. [facility] WBC 4.9 4.0 - 10.7 x10E9/L 11/30/2024 9:[address] [facility] RBC Count 3.62(L) 3.90 - 5.20 x10E12/L 11/30/2024 9:[address] [facility] Hemoglobin 8.9(L) 11.9 - 15.8 g/dL 11/30/2024 9:[address] [facility] Hematocrit 27.5(L) 34.8 - 46.1 % 11/30/2024 9:[address] [facility] MCV 76.0(L) 80.0 - 98.0 fL 11/30/2024 9:[address] [facility] MCH 24.6(L) 26.7 - 33.6 pg 11/30/2024 9:[address] [facility] MCHC 32.4 31.7 - 36.3 g/dL 11/30/2024 9:[address] [facility] RDW-CV 15.3(H) 11.3 - 14.8 % 11/30/2024 9:[address] [facility] Platelet Count 291 150 - 420 x10E9/L 11/30/2024 9:[address] [facility] MPV 10.6 7.8 - 11.4 fL 11/30/2024 9:[address] [facility] Blood BLOOD SPECIMEN / Unknown Lab Venipuncture / Unknown 11/30/2024 8:35 AM CDT 11/30/2024 9:00 AM T us Horacio Henao MD LAB - HEMATOLOGY ORDERABLES Fin al Result [facility] [address] [place] [phone], [facility] [phone] * (ABNORMAL) RENAL FUNCTION PANEL (11/30/2024 8:35 AM T) BUN 8 7 - 26 mg/dL 11/30/2024 9:[address] [facility] Creatinine 0.46(L) 0.56 - 0.96 mg/dL 11/30/2024 9:[address] [facility] Sodium 133(L) 136 - 145 mmol/L 11/30/2024 9:[address] [facility] Potassium 4.2 3.5 - 4.5 mmol/L 11/30/2024 9:[address] [facility] Chloride 101 98 - 107 mmol/L 11/30/2024 9:[address] [facility] CO2 20(L) 22 - 29 mmol/L 11/30/2024 9:[address] [facility] Glucose 335(H) 70 - 99 mg/dL 11/30/2024 9:[address] [facility] Albumin 2.8(L) 3.4 - 5.0 g/dL 11/30/2024 9:[address] [facility] Calcium 8.8 8.4 - 10.2 mg/dL 11/30/2024 9:43 AM CDT [facility] Phosphorus 4.3 2.9 - 5.1 mg/dL 11/30/2024 9:43 AM T [facility] Anion Gap 12 6 - 16 11/30/2024 9:43 AM T [facility] BUN/Creatinine Ratio 17 7 - 23 11/30/2024 9:43 AM T [facility] Osmolality Calculated 287 275 - 295 mOsm/kg 11/30/2024 9:43 AM T [facility] eGFR by CKD-EPI >90 >=90 mL/min/1.7 3 m2 11/30/2024 9:43 AM T [facility] Blood BLOOD SPECIMEN / Unknown Lab Venipuncture / Unknown 11/30/2024 8:35 AM CDT 11/30/2024 9:09 AM CDT us Sacha Swanson MD LAB - CHEMISTRY ORDERABLES Final Result Performing Organization Address City/[facility]/ZIP Co de Phone Number [address] [address], [facility] [phone] * (ABNORMAL) MAGNESIUM BLOOD (11/30/2024 8:35 AM CDT) Only the most recent of30 resultswithin the time period is included. Pathologist [facility] Magnesium 1.4(L) 1.6 - 2.6 mg/dL 11/30/2024 9:43 AM CDT [facility] Blood BLOOD SPECIMEN / Unknown Lab Venipuncture / Unknown 11/30/2024 8:35 AM CDT 11/30/2024 9:09 AM CDT us Sacha Swanson MD LAB - CHEMISTRY ORDERABLES Final Result [address] [address], [facility] [phone] * (ABNORMAL) BASIC METABOLIC PANEL (CALCIUM TOTAL) (11/29/2024 11:35 AM CDT) Only the most recent of31 resultswithin the time period is included. BUN 6(L) 7 - 26 mg/dL 11/29/2024 12:[address] [facility] Creatinine 0.50(L) 0.56 - 0.96 mg/dL 11/29/2024 12:[address] [facility] Sodium 135(L) 136 - 145 mmol/L 11/29/2024 12:[address] [facility] Potassium 4.0 3.5 - 4.5 mmol/L 11/29/2024 12:[address] [facility] Chloride 102 98 - 107 mmol/L 11/29/2024 12:[address] [facility] CO2 23 22 - 29 mmol/L 11/29/2024 12:[address] [facility] Glucose 252(H) 70 - 99 mg/dL 11/29/2024 12:[address] [facility] Calcium 8.4 8.4 - 10.2 mg/dL 11/29/2024 12:[address] [facility] Anion Gap 10 6 - 16 11/29/2024 12:[address] [facility] BUN/Creatinine Ratio 12 7 - 23 11/29/2024 12:[address] [facility] Osmolality Calculated 286 275 - 295 mOsm/kg 11/29/2024 12:[address] [facility] eGFR by CKD-EPI >90 >=90 mL/min/1.7 3 m2 11/29/2024 12:[address] [facility] Blood BLOOD SPECIMEN / Unknown Venipuncture / Unknown 11/29/2024 11:35 AM CDT 11/29/2024 11:45 AM CDT us Horacio Henao MD LAB - CHEMISTRY ORDERABLES Kimmy l Result [facility] [address] [place] [phone], [facility] [phone] * PHOSPHORUS BLOOD (11/29/2024 11:35 AM CDT) Only the most recent of29 resultswithin the time period is included. Phosphorus 3.8 2.9 - 5.1 mg/dL 11/29/2024 12:11 PM CDT [facility] Blood BLOOD SPECIMEN / Unknown Venipuncture / Unknown 11/29/2024 11:35 AM CDT 11/29/2024 11:45 AM CDT us Horacio Henao MD LAB - CHEMISTRY ORDERABLES Kimmy l Result [id number] [place] [address], [facility] [phone] * US THYROID (11/28/2024 1:45 PM CDT) Anatomical Region Laterality Modality Chest Ultrasound 11/28/2024 4:35 PM CDT Impressions 11/30/2024 9:58 AM CDT IMPRESSION: Multiple subcentimeter thyroid nodules. Diffusely heterogeneous thyroid echotexture with associated hyperemia of the thyroid parenchyma, suggestive of thyroiditis. > Dictated by Sandeep Sethi MD (residential roofer helper). Xander Valdes MD have personally reviewed and interpreted this examination/study. > Interpreting Provider: Xander Paiz MD on 11/30/2024 9:58 AM Narrative 11/30/2024 9:58 AM CDT PROCEDURE: US THYROID, DATE/TIME OF EXAM: 11/28/2024 2:27 PM, [facility] INDICATION: E05.90: Hyperthyroidism ADDITIONAL CLINICAL INFORMATION: Ordering Provider Reason For Exam: Hyperthyroidism COMPARISON: None. FINDINGS: Right thyroid lobe: 5.3 x 2.4 x 2.1 cm Left thyroid lobe: 4.2 x 1.7 x 1.2 cm Isthmus: 3 mm Diffusely heterogeneous thyroid echotexture. Multiple subcentimeter thyroid nodules are seen bilaterally, all subcentimeter in size and none of which require follow-up. The isthmus is not thickened. There is diffuse hyperemia of the thyroid parenchyma. Procedure Note Fouzia Paiz MD - 11/30/2024 PROCEDURE: US THYROID, DATE/TIME OF EXAM: 11/28/2024 2:27 PM, [facility] INDICATION: E05.90: Hyperthyroidism ADDITIONAL CLINICAL INFORMATION: Ordering Provider Reason For Exam: Hyperthyroidism COMPARISON: None. FINDINGS: Right thyroid lobe: 5.3 x 2.4 x 2.1 cm Left thyroid lobe: 4.2 x 1.7 x 1.2 cm Isthmus: 3 mm Diffusely heterogeneous thyroid echotexture. Multiple subcentimeterthyroid nodules are seen bilaterally, all subcentimeter in size and none ofwhich require follow-up. The isthmus is not thickened. There is diffusehyperemia of the thyroid parenchyma. IMPRESSION: Multiple subcentimeter thyroid nodules. Diffusely heterogeneous thyroid echotexture with associated hyperemia of the thyroid parenchyma, suggestive of thyroiditis. > Dictated by Sandeep Sethi MD (residential roofer helper). I, Xander Paiz MD have personally reviewed and interpreted this examination/study. > Interpreting Provider: Xander Paiz MD on 11/30/2024 9:58 AM us Horacio Henao MD ORDERABLES Final Result * (ABNORMAL) FOLATE (11/28/2024 12:18 PM CDT) Folate 37.7(H) 7.0 - 31.4 ng/mL 11/28/2024 2:30 PM CDT [facility] Comment:Result obtained by vishal rincon. Blood BLOOD SPECIMEN / Unknown Venipuncture / Unknown 11/28/2024 12:18 PM CDT 11/28/2024 12:41 PM CDT us Sacha Swanson MD LAB - CHEMISTRY ORDERABLES Final Result [facility] [address] [place] [phone], [facility] [phone] * (ABNORMAL) VITAMIN B12 (11/28/2024 12:18 PM CDT) Vitamin B12 1,133(H) 213 - 816 pg/mL 11/28/2024 1:53 PM CDT [facility] Blood BLOOD SPECIMEN / Unknown Venipuncture / Unknown 11/28/2024 12:18 PM CDT 11/28/2024 12:41 PM CDT us Sacha Swanson MD LAB - CHEMISTRY ORDERABLES Final Result [address] [address], [place] [phone] * (ABNORMAL) IRON + TRANSFERRIN PANEL (11/28/2024 12:18 PM CDT) Iron 46 40 - 150 ug/dL 11/28/2024 1:21 PM CDT [facility] Transferrin 243 174 - 382 mg/dL 11/28/2024 1:21 PM CDT [facility] Transferrin Saturation % 15(L) 16 - 50 % 11/28/2024 1:21 PM CDT [facility] TIBC Calculated 304 240 - 450 ug/dL 11/28/2024 1:21 PM CDT [facility] Blood BLOOD SPECIMEN / Unknown Venipuncture / Unknown 11/28/2024 12:18 PM CDT 11/28/2024 12:38 PM CDT Sacha Swanson MD LAB - CHEMISTRY ORDERABLES Final Result [address] [address], [place] [phone] * FERRITIN (11/28/2024 12:18 PM CDT) Ferritin 17 13 - 204 ng/mL 11/28/2024 1:38 PM CDT [facility] Blood BLOOD SPECIMEN / Unknown Venipuncture / Unknown 11/28/2024 12:18 PM CDT 11/28/2024 12:38 PM CDT Sacha Swanson MD LAB - CHEMISTRY ORDERABLES Final Result [address] [address], [place] [phone] * ACTH 60 MINUTES (11/28/2024 9:22 AM CDT) Cortisol 60 Min 23.7 >=20.0 mcg/dL 11/28/2024 10:22 AM CDT [facility] Blood BLOOD SPECIMEN / Unknown Venipuncture / Unknown 11/28/2024 9:22 AM CDT 11/28/2024 9:38 AM CDT Horacio Henao MD LAB - CHEMISTRY ORDERABLES Kimmy l Result [facility] [address] [place] [phone], [place] [phone] * (ABNORMAL) ACTH 30 MINUTES (11/28/2024 8:49 AM CDT) Cortisol 30 Min 19.8(L) >=20.0 mcg/dL 11/28/2024 10:02 AM CDT [facility] Blood BLOOD SPECIMEN / Unknown Venipuncture / Unknown 11/28/2024 8:49 AM CDT 11/28/2024 9:18 AM CDT Horacio Henao MD LAB - CHEMISTRY ORDERABLES Kimmy l Result Performing Organization Address [facility]/ZIP Co de Phone Number [facility] [address] [place] [phone], [place] [phone] * ACTH CORTISOL BASELINE (11/28/2024 8:14 AM CDT) Cortisol Baseline 7.8 No Reference Range Established mcg/dL 11/28/2024 9:14 AM CDT [facility] Blood BLOOD SPECIMEN / Unknown Venipuncture / Unknown 11/28/2024 8:14 AM CDT 11/28/2024 8:28 AM CDT Horacio Henao MD LAB - CHEMISTRY ORDERABLES Kimmy l Result Performing Organization Address City/[facility]/ZIP Co de Phone Number [facility] [address] [place] [phone], [place] [phone] * (ABNORMAL) THYROID PEROXIDASE ANTIBODY (11/28/2024 4:26 AM CDT) Pathologist [facility] Thyroid Peroxidase TPO Antibody 465.3(H) 0.0 - 9.0 IU/mL 11/29/2024 11:50 PM CDT [facility] ([facility]) Comment: Performed By: [employer] [address] [place] [address] Healthcare Translator: Zana Guardado MD, PhD CLIA Number: [id number] Blood BLOOD SPECIMEN / Unknown Venipuncture / Unknown 11/28/2024 4:26 AM CDT 11/28/2024 4:37 AM CDT Horacio Henao MD LAB - CHEMISTRY ORDERABLES Kimmy l Result [facility]) [address] [place] [address] * (ABNORMAL) THYROID STIMULATING IMMUNOGLOBULIN (TSI) (11/28/2024 4:26 AM CDT) Pathologist [facility] Thyroid Stimulating Immunoglobulin TSI 5.13(H) <=0.54 IU/L 11/30/2024 10:35 PM CDT [facility] ([facility]) Comment: INTERPRETIVE INFORMATION: Thyroid Stimulating Immunoglobulin (TSI) 0.54 IU/L or less.........Consistent with healthy thyroid function or non-Graves thyroid or autoimmune disease. Those with healthy thyroid function typically have results less than 0.1 IU/L. 0.55 IU/L or greater......Consistent with Graves disease (autoimmune hyperthyroidism) This assay specifically detects thyroid stimulating autoantibodies. For diagnostic purposes, the results obtained from this assay should be used in combination with clinical examination, patient medical history, and other findings. Performed By: [facility] [address] [place] [address] Healthcare Translator: Zana Guardado MD, PhD CLIA Number: [id number] Blood BLOOD SPECIMEN / Unknown Venipuncture / Unknown 11/28/2024 4:26 AM CDT 11/28/2024 4:37 AM CDT Horacio Henao MD LAB - CHEMISTRY ORDERABLES Kimmy l Result [facility]) [address] [place] [address] * (ABNORMAL) T3 FREE (11/28/2024 4:26 AM CDT) T3 Free 5.5(H) 1.7 - 3.7 pg/mL 11/28/2024 5:34 AM CDT [facility] Blood BLOOD SPECIMEN / Unknown Venipuncture / Unknown 11/28/2024 4:26 AM CDT 11/28/2024 4:43 AM CDT Horacio Henao MD LAB - CHEMISTRY ORDERABLES Kimmy l Result Performing Organization Address [facility] Co de Phone Number [address] [address], [facility] [phone] * (ABNORMAL) TSH RECEPTOR ANTIBODY (11/28/2024 4:26 AM CDT) Pathologist [facility] TSH Receptor Antibody 5.37(H) <=1.75 IU/L 11/30/2024 3:50 PM CDT [facility] ([facility]) Comment: Performed By: [facility] [address] [place] [address] Healthcare Translator: Zana Guardado MD, PhD CLIA Number: [id number] Blood BLOOD SPECIMEN / Unknown Venipuncture / Unknown 11/28/2024 4:26 AM CDT 11/28/2024 4:37 AM CDT Horacio Henao MD LAB - CHEMISTRY ORDERABLES Kimmy l Result Performing Organization Address City/[facility]/ZIP Co de Phone Number [facility] [address] * (ABNORMAL) TSH (11/28/2024 4:26 AM CDT) TSH <0.010(L) 0.350 - 4.940 uIU/mL 11/28/2024 5:34 AM CDT [facility] Blood BLOOD SPECIMEN / Unknown Venipuncture / Unknown 11/28/2024 4:26 AM CDT 11/28/2024 4:43 AM CDT Horacio Henao MD LAB - CHEMISTRY ORDERABLES Kimmy l Result [address] [address], [facility] [phone] * (ABNORMAL) T4 FREE (11/28/2024 4:26 AM CDT) Only the most recent of2 resultswithin the time period is included. T4 Free 2.0(H) 0.7 - 1.5 ng/dL 11/28/2024 5:34 AM CDT [facility] Blood BLOOD SPECIMEN / Unknown Venipuncture / Unknown 11/28/2024 4:26 AM CDT 11/28/2024 4:43 AM CDT Horacio Henao MD LAB - CHEMISTRY ORDERABLES Kimmy l Result Performing Organization Address City/[facility] Co de Phone Number [address] [address], [facility] [phone] * (ABNORMAL) T4 TOTAL (11/28/2024 4:26 AM CDT) T4 Total 12.80(H) 4.50 - 11.70 ug/dL 11/30/2024 12:35 PM CDT [facility] ([facility]) Comment: Performed By: [facility] [address] [place] [id number] Healthcare Translator: Zana Guardado MD, PhD CLIA Number: [id number] Blood BLOOD SPECIMEN / Unknown Venipuncture / Unknown 11/28/2024 4:26 AM CDT 11/28/2024 4:37 AM CDT Horacio Henao MD LAB - CHEMISTRY ORDERABLES Kimmy l Result [facility]) [address] [place] [address] * (ABNORMAL) T3 TOTAL (11/28/2024 4:26 AM CDT) Pathologist [facility] T3 Total 237(H) 80 - 200 ng/dL 11/30/2024 5:27 PM CDT [facility] ([facility]) Comment: REFERENCE INTERVAL: Triiodothyronine, Total (Total T3) Access complete set of age- and/or gender-specific reference intervals for this test in the [facility] Test Directory ([employer]). Performed By: [facility] [facility] [address] [place] [address] Healthcare Translator: Zana Guardado MD, PhD CLIA Number: [id number] Blood BLOOD SPECIMEN / Unknown Venipuncture / Unknown 11/28/2024 4:26 AM CDT 11/28/2024 4:37 AM CDT Horacio Henao MD LAB - CHEMISTRY ORDERABLES Kimmy l Result Performing Organization Address [facility] de Phone Number [facility]) [address] [place] [address] * (ABNORMAL) CORTISOL BLOOD AM (11/28/2024 4:26 AM CDT) [facility] Cortisol AM 2.8(L) 3.7 - 19.4 ug/dL 11/28/2024 5:33 AM CDT [facility] Blood BLOOD SPECIMEN / Unknown Venipuncture / Unknown 11/28/2024 4:26 AM CDT 11/28/2024 4:43 AM CDT Narrative [facility] - 11/28/2024 5:33 AM CDT Normal cortisol levels are generally highest in the morning hours and lowest from late evening through the systems operator hours (8 PM to 4 AM). The PM measurements of cortisol run approximately one-half to one-third of the AM values. Horacio Henao MD LAB - CHEMISTRY ORDERABLES Kimmy l Result Performing Organization Address [facility] Co de Phone Number [address] [address], [facility] [phone] * (ABNORMAL) HYDROXYBUTYRATE BETA (11/27/2024 12:08 PM CDT) Only the most recent of5 resultswithin the time period is included. Beta-Hydroxybu tyrate 1.72(H) <0.50 mmol/L 11/27/2024 12:45 PM CDT [facility] Blood BLOOD SPECIMEN / Unknown Venipuncture / Unknown 11/27/2024 12:08 PM CDT 11/27/2024 12:16 PM CDT Horacio Henao MD LAB - CHEMISTRY ORDERABLES Kimmy l Result Performing Organization Address [facility] Co de Phone Number [address] [address], [facility] [phone] * EKG 12-LEAD (11/27/2024 10:58 AM CDT) Only the most recent of4 resultswithin the time period is included. Pathologist [facility] Ventricular Rate 96 BPM SL MUSE Atrial Rate 96 BPM [facility] P-R Interval 142 ms [facility] QRS Duration ms 70 ms [facility] Q-T Interval ms 364 ms [facility] QTC Calculation (Bezet) 459 ms [facility] Calculated P [place] 55 degrees [facility] Calculated R [place] 9 degrees [facility] Calculated T [place] 44 degrees [facility] Interpretation EKG NORMAL SINUS RHYTHM NORMAL ECG WHEN COMPARED WITH ECG OF 25-NOV-2024 08:15, Heart rate is slower with lateral injury pattern no longer present Confirmed by MARY GRACE JARQUIN DO ([id number]) on 12/06/2024 5:44:03 PM [facility] 11/27/2024 10:5 8 AM CDT 12/06/2024 5:44 PM CDT Horacio Henao MD ECG ORDERABLES Edited Result - Final Performing Organization Address [facility] Co de Phone Number [facility] * (ABNORMAL) URINALYSIS REFLEX TO MICROSCOPIC NO CULTURE (11/27/2024 10:48 AM T) Color UA Colorless(A ) Yellow, Straw 11/27/2024 11:[address] [facility] Clarity UA Clear Clear 11/27/2024 11:[address] [facility] Glucose UA 4+(A) Normal 11/27/2024 11:[address] [facility] Bilirubin UA Negative Negative 11/27/2024 11:[address] [facility] Ketone UA 1+(A) Negative 11/27/2024 11:[address] [facility] Specific [place] UA 1.006 1.005 - 1.030 11/27/2024 11:[address] [facility] Blood UA 3+(A) Negative 11/27/2024 11:[address] [facility] pH UA 5.5 5.0 - 9.0 pH 11/27/2024 11:[address] [facility] Protein UA Negative Negative 11/27/2024 11:[address] [facility] Urobilinogen UA Normal Normal mg/dL 11/27/2024 11:[address] [facility] Nitrite UA Negative Negative 11/27/2024 11:[address] [facility] Leukocyte UA Negative Negative 11/27/2024 11:[address] [facility] RBC UA 11-20(A) 0 - 5 # /hpf 11/27/2024 11:[address] [facility] WBC UA 0-5 0 - 5 # /hpf 11/27/2024 11:[address] [facility] Bacteria UA Trace(A) None Seen 11/27/2024 11:[address] [facility] Squamous Epithelial Cells 0-2 0 - 5 /hpf 11/27/2024 11:[address] [facility] Urine URINE SPECIMEN OBTAINED BY CLEAN CATCH PROCEDURE / Unknown Collection / Unknown 11/27/2024 10:48 AM CDT 11/27/2024 10:53 AM CDT Horacio Henao MD LAB - URINALYSIS ORDERABLES Fin al Result [address] [address], [place] [phone] * UREA NITROGEN URINE RANDOM (11/27/2024 10:48 AM CDT) Urea Nitrogen Random Urine 78 Not Established mg/dL 11/27/2024 11:18 AM CDT [facility] Urine URINE SPECIMEN OBTAINED BY CLEAN CATCH PROCEDURE / Unknown Collection / Unknown 11/27/2024 10:48 AM CDT 11/27/2024 11:05 AM CDT Horacio Henao MD LAB - URINE CHEMISTRY ORDERABLE S Final Result Performing Organization Address [facility] Co de Phone Number [address] [address], [place] [phone] * OSMOLALITY URINE (11/27/2024 10:48 AM CDT) Osmolality Urine 258 50 - 1,200 mOsm/kg 11/27/2024 11:55 AM CDT [facility] Urine URINE SPECIMEN OBTAINED BY CLEAN CATCH PROCEDURE / Unknown Collection / Unknown 11/27/2024 10:48 AM CDT 11/27/2024 11:05 AM CDT Horacio Henao MD LAB - URINE CHEMISTRY ORDERABLE S Final Result Performing Organization Address [facility]/ZIP Co de Phone Number [address] [address], [place] [phone] * LYTES (NA K CL) URINE RANDOM PANEL (11/27/2024 10:48 AM CDT) Sodium Urine 65 Not Established mmol/L 11/27/2024 11:18 AM CDT [facility] Potassium Urine 10.6 Not Established mmol/L 11/27/2024 11:18 AM CDT [facility] Chloride Random Urine 65 Not Established mmol/L 11/27/2024 11:18 AM CDT [facility] Urine URINE SPECIMEN OBTAINED BY CLEAN CATCH PROCEDURE / Unknown Collection / Unknown 11/27/2024 10:48 AM CDT 11/27/2024 11:05 AM CDT Horacio Henao MD LAB - URINE CHEMISTRY ORDERABLE S Final Result Performing Organization Address [facility]/ZIP Co de Phone Number [address] [address], [place] [phone] * CREATININE URINE RANDOM (11/27/2024 10:48 AM CDT) Creatinine Urine 7.06 Not Established mg/dL 11/27/2024 11:18 AM CDT [facility] Urine URINE SPECIMEN OBTAINED BY CLEAN CATCH PROCEDURE / Unknown Collection / Unknown 11/27/2024 10:48 AM CDT 11/27/2024 11:05 AM CDT Horacio Henao MD LAB - URINE CHEMISTRY ORDERABLE S Final Result Performing Organization Address [facility] de Phone Number [address] [address], [place] [phone] * CT Head Wo Contrast (11/27/2024 9:41 AM CDT) Anatomical Region Laterality Modality Head Computed Tomogra phy 11/27/2024 9:52 AM CDT Impressions 11/27/2024 10:51 AM CDT IMPRESSION: 1. No acute intracranial hemorrhage, midline shift, or significant mass effect. Report was dictated by Jason Espinosa MD, (Integrated VIR resident). I, Bello Sulliavn MD have personally reviewed and interpreted this examination/study. > Interpreting Provider: Bello Sullivan MD on 11/27/2024 10:51 AM Narrative 11/27/2024 10:51 AM CDT PROCEDURE: CT HEAD WO CONTRAST, DATE/TIME OF EXAM: 11/27/2024 9:42 AM, LOCATION [facility] INDICATION: E08.10: Diabetic ketoacidosis without coma associated with diabetes mellitus due to underlying condition (HCC) ADDITIONAL CLINICAL INFORMATION: Ordering Provider Reason For Exam: rule out pituitary/hypothalamic lesion, central DI Technologist Note: Additional: TECHNIQUE: CT of the head was performed without contrast according to standard protocol. CONTRAST: None COMPARISON: No prior study is available for comparison at the time of this dictation. FINDINGS: No acute intracranial hemorrhage or intra- or extra-axial fluid collections are identified. The ventricles are of normal size, shape, and morphology. The basal cisterns are patent. No mass effect or midline shift is seen. The candelario-white matter differentiation is normal. Mild periventricular white matter hypoattenuation is a nonspecific finding that may be indicative of chronic small vessel ischemic disease. There is mild atherosclerotic calcification of the carotid siphons. The visualized portions of the orbits, paranasal sinuses, and mastoids appear normal. No acute calvarial fracture is identified. Procedure Note Bello Sullivan MD - 11/27/2024 PROCEDURE: CT HEAD WO CONTRAST, DATE/TIME OF EXAM: 11/27/2024 9:42 AM, LOCATION [facility] INDICATION: E08.10: Diabetic ketoacidosis without coma associated with diabetes mellitus due to underlying condition (HCC) ADDITIONAL CLINICAL INFORMATION: Ordering Provider Reason For Exam: rule out pituitary/hypothalamiclesion, central DI Technologist Note: Additional: TECHNIQUE: CT of the head was performed without contrast according to standard protocol. CONTRAST: None COMPARISON: No prior study is available for comparison at the time ofthis dictation. FINDINGS: No acute intracranial hemorrhage or intra- or extra-axial fluidcollections are identified. The ventricles are of normal size, shape, andmorphology. The basal cisterns are patent. No mass effect or midline shift is seen.The candelario-white matter differentiation is normal. Mild periventricular white matter hypoattenuation is a nonspecific finding that may be indicativeof chronic small vessel ischemic disease. There is mild atherosclerotic calcification of the carotid siphons. The visualized portions of the orbits, paranasal sinuses, and mastoids appear normal. No acute calvarial fracture is identified. IMPRESSION: 1. No acute intracranial hemorrhage, midline shift, or significant mass effect. Report was dictated by Jason Espinosa MD, (Integrated VIR resident). I, Bello Sullivan MD have personally reviewed and interpreted this examination/study. > Interpreting Provider: Bello Sullivan MD on 11/27/2024 10:51 AM Horacio Henao MD CT ORDERABLES Final Result * (ABNORMAL) TSH REFLEX FREE T4 (11/27/2024 8:20 AM CDT) Pathologist [facility] TSH <0.010(L) 0.350 - 4.940 uIU/mL 11/27/2024 9:46 AM CDT [facility] Blood BLOOD SPECIMEN / Unknown Venipuncture / Unknown 11/27/2024 8:20 AM CDT 11/27/2024 8:57 AM CDT Horacio Henao MD LAB - CHEMISTRY ORDERABLES Kimmy l Result [address] [address], [facility] [phone] * TROPONIN-I HIGH SENSITIVE (11/25/2024 8:26 AM CDT) Only the most recent of2 resultswithin the time period is included. [facility] Troponin I High Sensitive <3 <=14 ng/L 11/25/2024 9:36 AM CDT [facility] Blood BLOOD SPECIMEN / Unknown Venipuncture / Unknown 11/25/2024 8:26 AM CDT 11/25/2024 8:59 AM CDT Horacio Henao MD LAB - CHEMISTRY ORDERABLES Kimmy l Result [address] [address], [facility] [phone] * CARDIAC EKG ORDER (11/23/2024 12:01 PM CDT) Narrative 11/23/2024 12:01 PM CDT Ordered by an unspecified provider. Scanned Document CARDIAC SERVICES ORDERABLES Fin al Result * BLOOD TYPE VERIFICATION (11/23/2024 6:02 AM CDT) Pathologist [facility] ABO Rh B POS 11/23/2024 7:0 3 AM CDT [facility] Blood Bank BLOOD SPECIMEN / Unknown Venipuncture / Unknown 11/23/2024 6:02 AM CDT 11/23/2024 6:15 AM CDT Josafat Loza MD LAB - BLOOD BANK ORDERABLES Kimmy l Result Performing Organization Address City/[facility] Co de Phone Number [facility] [address] [place] [address], [facility] [phone] * (ABNORMAL) HEMOGLOBIN A1C (11/23/2024 3:50 AM CDT) Hemoglobin A1c 6.9(H) <=5.6 % 11/23/2024 9:16 AM CDT [facility] Estimated Average Glucose 151 mg/dL 11/23/2024 9:16 AM CDT [facility] Comment: HbA1c Interpretation: Normal : < 5.7% Pre-diabetes: 5.7-6.4% Diabetes: Equal to or greater than 6.5% Test results diagnostic of diabetes should be repeated for confirmation. Treatment target values recommended by ADA and other clinical organizations should be used to evaluate metabolic control in patients. Reference: [place] [employer], Standards of Care in Diabetes -2020 In patients 70 years and older consider HbA1c target range of 7.0-7.5% (Reference: Nura Sorto et al. JAMDA. 2012) The Sebia assay for the measurement of HbA1c is a National Glycohemoglobin Standardization Program (NGSP) certified method. Blood BLOOD SPECIMEN / Unknown Venipuncture / Unknown 11/23/2024 3:50 AM CDT 11/23/2024 4:06 AM CDT Sanna Bedoya MD LAB - CHEMISTRY ORDERABLES Kimmy l Result Performing Organization Address City/[facility]/ZIP Co de Phone Number [facility] [address] [place] [address], [facility] [phone] * CULTURE BLOOD (11/22/2024 10:26 PM CDT) Only the most recent of2 resultswithin the time period is included. Culture No growth day 5 RAYRAY 11/28/2024 1:31 AM CDT [facility] Blood PERIPHERAL BLOOD / Unknown Venipuncture / Unknown 11/22/2024 10:26 PM CDT 11/22/2024 10:30 PM CDT us Josafat Loza MD LAB - MICROBIOLOGY ORDERABLES Fi nal Result [facility] [address] [place] [address], [facility] [phone] * CT Chest Pe W Abd Pelvis W Cont (11/22/2024 6:01 PM CDT) Anatomical Region Laterality Modality Chest, Abdomen, Pelvis Computed Tomography 11/22/2024 6:22 PM CDT Impressions 11/22/2024 10:37 PM CDT Impression: 1.No evidence of pulmonary embolism. 2.Clear lungs. 3.Mild fullness and increased wall enhancement of the right ureter, may represent ureteritis. There is also mild bladder wall thickening. This may be secondary to cystitis or partially distended state. 4. Small hiatal hernia. Diffuse esophageal wall thickening, may represent esophagitis. Recommend endoscopic correlation. The report was drafted by Amadou Perez MD (information services vice president) IXander MD have personally reviewed and interpreted this examination/study. > Interpreting Provider: Xander Paiz MD on 11/22/2024 10:37 PM Narrative 11/22/2024 10:37 PM CDT PROCEDURE: CT CHEST PE W ABD PELVIS W CONT, DATE/TIME OF EXAM: 11/22/2024 6:01 PM, LOCATION [facility] INDICATION: R10.84: Generalized abdominal pain R11.2: Nausea and vomiting, unspecified vomiting type R00.0: Tachycardia E10.10: Diabetic ketoacidosis without coma associated with type 1 diabetes mellitus (HCC) ADDITIONAL CLINICAL INFORMATION: Ordering Provider Reason For Exam: ?abscess, ?PE Technologist Note: Additional: COMPARISON: None. TECHNIQUE: CT of the chest was performed following the uneventful administration of 75 mL of Isovue 370 intravenous contrast according to a pulmonary embolism protocol. CT of the abdomen and pelvis was also performed during the portal venous phase according to standard protocol. Multiplanar reconstructions were created. Findings: Chest: Study Quality This examination for the diagnosis of pulmonary embolism is adequate. Pulmonary Arteries: No evidence of acute pulmonary embolism. Thoracic Vasculature: No vascular abnormality is present. Lower Neck and Axillae: There is a subcentimeter right thyroid nodule. Lungs: No pulmonary parenchymal or airway process is present. No suspicious pulmonary nodules are identified. No pleural fluid or pneumothorax is present. Heart and Pericardium: The cardiac chambers are normal in size. No pericardial fluid or thickening is present. Mediastinum and Jessie: No enlarged lymph nodes are present. Other findings: None. Abdomen/pelvis: Liver: Normal. Gallbladder and Bile Ducts: Normal. Spleen: Normal. Pancreas: Normal. Adrenals: Normal. Kidneys: Mild fullness and increased wall enhancement of the right ureter. No renal calculi or hydronephrosis. The left kidney is unremarkable. Gastrointestinal: There is diffuse esophageal wall thickening. A small hiatal hernia is present. Otherwise, the stomach and visualized loops of large and small bowel are unremarkable. Normal appendix. Mesentery/Peritoneum/Retroperitoneum: No free intraperitoneal air. No free fluid in the abdomen or pelvis. Bladder: The bladder shows mild wall thickening however is only partially distended. Reproductive Organs: The uterus is retroverted. Abdominal Vasculature: No vascular abnormality is present. Bones: Bone windows demonstrate no suspicious lytic or blastic lesions. The visible osseous structures are intact. Soft tissues: Normal. Procedure Note Fouzia Paiz MD - 11/22/2024 PROCEDURE: CT CHEST PE W ABD PELVIS W CONT, DATE/TIME OF EXAM:11/22/2024 6:01 PM, LOCATION [facility] INDICATION: R10.84: Generalized abdominal pain R11.2: Nausea and vomiting, unspecified vomiting type R00.0: Tachycardia E10.10: Diabetic ketoacidosis without coma associated with type 1diabetes mellitus (HCC) ADDITIONAL CLINICAL INFORMATION: Ordering Provider Reason For Exam: ?abscess, ?PE Technologist Note: Additional: COMPARISON: None. TECHNIQUE: CT of the chest was performed following the uneventful administration of 75 mL of Isovue 370 intravenous contrast according toa pulmonary embolism protocol. CT of the abdomen and pelvis was also performed during the portal venous phase according to standard protocol. Multiplanar reconstructions were created. Findings: Chest: Study Quality This examination for the diagnosis of pulmonary embolism is adequate. Pulmonary Arteries: No evidence of acute pulmonary embolism. Thoracic Vasculature: No vascular abnormality is present. Lower Neck and Axillae: There is a subcentimeter right thyroid nodule. Lungs: No pulmonary parenchymal or airway process is present. No suspicious pulmonary nodules are identified. No pleural fluid or pneumothorax is present. Heart and Pericardium: The cardiac chambers are normal in size. No pericardial fluid orthickening is present. Mediastinum and Jessie: No enlarged lymph nodes are present. Other findings: None. Abdomen/pelvis: Liver: Normal. Gallbladder and Bile Ducts: Normal. Spleen: Normal. Pancreas: Normal. Adrenals: Normal. Kidneys: Mild fullness and increased wall enhancement of the right ureter. Norenal calculi or hydronephrosis. The left kidney is unremarkable. Gastrointestinal: There is diffuse esophageal wall thickening. A small hiatal hernia is present. Otherwise, the stomach and visualized loops of large and small bowel are unremarkable. Normal appendix. Mesentery/Peritoneum/Retroperitoneum: No free intraperitoneal air. No free fluid in the abdomen or pelvis. Bladder: The bladder shows mild wall thickening however is only partiallydistended. Reproductive Organs: The uterus is retroverted. Abdominal Vasculature: No vascular abnormality is present. Bones: Bone windows demonstrate no suspicious lytic or blastic lesions. The visible osseous structures are intact. Soft tissues: Normal. Impression: 1.No evidence of pulmonary embolism. 2.Clear lungs. 3.Mild fullness and increased wall enhancement of the right ureter, may represent ureteritis. There is also mild bladder wall thickening. Thismay be secondary to cystitis or partially distended state. 4. Small hiatal hernia. Diffuse esophageal wall thickening, mayrepresent esophagitis. Recommend endoscopic correlation. The report was drafted by Amadou Perez MD (information services vice president) IXander MD have personally reviewed and interpreted this examination/study. > Interpreting Provider: Xander Paiz MD on 11/22/2024 10:37 PM Oly Alberto MD CT ORDERABLES Final Result * PTT [facility] (11/22/2024 4:40 PM CDT) APTT 34.3 23.0 - 38.4 Seconds 11/22/2024 5:17 PM CDT [facility] Comment:Suggested therapeuti c range for full dose I.V. unfractionated heparin therapy for venous thromboembolism is 71 to 109 seconds. Blood BLOOD SPECIMEN / Unknown Venipuncture / Unknown 11/22/2024 4:40 PM CDT 11/22/2024 4:52 PM CDT Result [facility] Oly Alberto MD LAB - COAGULATION ORDERABLES Fin al Result Performing Organization Address City/[facility]/ZIP Co de Phone Number [facility] [address] [place] [address], [place] [phone] * PT-INR [facility] (11/22/2024 4:40 PM CDT) PT 14.6 12.1 - 14.8 Seconds 11/22/2024 5:17 PM CDT [facility] INR 1.2 See Comment 11/22/2024 5:17 PM CDT [facility] Comment:The suggested therap eutic range for standard coumadin (warfarin) therapy is an INR of 2.0-3.0. For high-risk patients (Mechanical Mitral Valve Prosthesis, etc.), the suggested prophylactic therapeutic range is an INR of 2.5-3.5. Blood BLOOD SPECIMEN / Unknown Venipuncture / Unknown 11/22/2024 4:40 PM CDT 11/22/2024 4:52 PM CDT Oly Alberto MD LAB - COAGULATION ORDERABLES Fin al Result Performing Organization Address City/[facility]/ZIP Co de Phone Number [facility] [address] [place] [address], [place] [phone] * TYPE + SCREEN PANEL (11/22/2024 4:40 PM CDT) Antibody Screen NEG 5:33 PM CDT [facility]OD [facility] LAB ABO Rh B POS 11/22/2024 5:33 PM CDT [facility] Blood Bank BLOOD SPECIMEN / Unknown Venipuncture / Unknown 11/22/2024 4:40 PM CDT 11/22/2024 4:57 PM CDT us Oly Alberto MD LAB - BLOOD BANK ORDERABLES Kimmy alexandro Result [facility] [address] [place] [address], [place] [phone] * URINE DRUG SCREEN IMMUNOASSAY (11/22/2024 3:45 PM CDT) [facility] Amphetamines Screen Urine Negative Negative: < 1000 ng/mL 11/22/2024 4:14 PM CDT [facility] Barbiturates Screen Urine Negative Negative: < 200 ng/mL 11/22/2024 4:14 PM CDT [facility] Benzodiazepine Screen Urine Negative Negative: < 200 ng/mL 11/22/2024 4:14 PM CDT [facility] Opiates Urine Negative Negative: < 300 ng/mL 11/22/2024 4:14 PM CDT [facility] Cocaine Metabolites Urine Negative Negative: < 300 ng/mL 11/22/2024 4:14 PM CDT [facility] Phencyclidine Screen Urine Negative Negative: < 25 ng/ml 11/22/2024 4:14 PM CDT [facility] Cannabinoids Screen Urine Negative Negative: <50 ng/mL 11/22/2024 4:14 PM CDT [facility] Methadone Screen Urine Negative Negative: < 300 ng/mL 11/22/2024 4:14 PM CDT [facility] Fentanyl Screen Urine Negative Negative: <1.5 ng/mL 11/22/2024 4:14 PM CDT [facility] Urine URINE / Unknown Collection / Unknown 11/22/2024 3:45 PM CDT 11/22/2024 3:49 PM CDT Narrative [facility] - 11/22/2024 4:14 PM CDT The Urine Toxicology Screening Panel does not screen for Propoxyphene, Meprobamate, Carisoprodol, Trazodone, zsza-ygg-wqbohbp medications and/or volatiles (Acetone, Isopropanol, Methanol or Ethylene Glycol). Ethanol, Salicylate, Acetaminophen, Tricyclic Antidepressants and several therapeutic drugs may be individually assayed in serum or plasma specimen. Toxicology testing by the [facility] is an aid to medical diagnosis and treatment of patients. No documented chain of custody was maintained. Results are intended to be used for clinical purposes only. us Sanna Bedoya MD LAB - URINE CHEMISTRY ORDERABLE S Final Result [facility] [address] [place] [address], [facility] [phone] * (ABNORMAL) BLOOD GASES LYNN + COOX PANEL (11/22/2024 12:53 PM CDT) Only the most recent of2 resultswithin the time period is included. pH Venous 7.47(H) 7.32 - 7.42 pH 11/22/2024 1:[address] [facility] pO2 Venous 88(H) 35 - 40 mmHg 11/22/2024 1:[address] [facility] pCO2 Venous 36(L) 40 - 50 mmHg 11/22/2024 1:[address] [facility] HCO3 Venous 26.2 20 - 30 mmol/L 11/22/2024 1:[address] [facility] Base Excess Venous 2.5(H) -2.0 - 2.0 mmol/L 11/22/2024 1:[address] [facility] Oxyhemoglobin Venous 96.6 % 10/26 1:[address] [facility] Deoxyhemoglobin (HHB) Venous % 1.5 % 11/22/2024 1:[address] [facility] Methemoglobin <0.8 0.0 - 2.0 % 11/22/2024 1:[address] [facility] Carboxyhemoglobin 1.3 0.0 - 2.0 % 2024 1:[address] [facility] O2 Content Venous 13.8 Interpret within clinical context ml/dL 11/22/2024 1:[address] [facility] Hemoglobin by COOX 10.1(L) 12.0 - 15.6 g/dL 11/22/2024 1:[address] [facility] O2 Saturation Venous 99 >=70 % 10/26 1:09 PM CDT [facility] FI O2 Mixed Venous 95.0 % 2024 1:09 PM CDT [facility] Blood BLOOD SPECIMEN / Unknown Venipuncture / Unknown 11/22/2024 12:53 PM CDT 11/22/2024 1:06 PM CDT Narrative [facility] - 11/22/2024 1:09 PM CDT Carboxyhemoglobin Normal Concentration: Non-smokers: 0-2%; Smokers: 0-9%; Toxic: >20% us Sanna Bedoya MD LAB - BLOOD GASES ORDERABLES Fi nal Result [facility] [address] [place] [address], [facility] [phone] * XR Abdomen Kub Portable (11/22/2024 12:07 PM CDT) Anatomical Region Laterality Modality Abdomen Digital Radiogra phy 11/22/2024 1:08 PM CDT Impressions 11/22/2024 4:13 PM CDT IMPRESSION: Nonobstructive bowel gas pattern. Report dictated by Phill Chung MD I, Yordy Potter MD have personally reviewed and interpreted this examination/study. > Interpreting Provider: Yordy Potter MD on 11/22/2024 4:13 PM Narrative 11/22/2024 4:13 PM CDT PROCEDURE: XR ABDOMEN KUB PORTABLE, DATE/TIME OF EXAM: 11/22/2024 12:07 PM, LOCATION [facility] INDICATION: R11.2: Nausea and vomiting, unspecified vomiting type ADDITIONAL CLINICAL INFORMATION: Ordering Provider Reason For Exam: Intractable nausea/vomiting Technologist Note: Additional: COMPARISON: None. FINDINGS: There is no dilatation of small or large bowel.Pneumoperitoneum cannot be excluded on this supine exam.Osseous structures are intact. Procedure Note Yordy Potter MD - 11/22/2024 PROCEDURE: XR ABDOMEN KUB PORTABLE, DATE/TIME OF EXAM: 11/22/2024 12:07 PM, LOCATION [facility] INDICATION: R11.2: Nausea and vomiting, unspecified vomiting type ADDITIONAL CLINICAL INFORMATION: Ordering Provider Reason For Exam: Intractable nausea/vomiting Technologist Note: Additional: COMPARISON: None. FINDINGS: There is no dilatation of small or large bowel.Pneumoperitoneum cannotbe excluded on this supine exam.Osseous structures are intact. IMPRESSION: Nonobstructive bowel gas pattern. Report dictated by Phill Chung MD I, Yordy Potter MD have personally reviewed and interpreted this examination/study. > Interpreting Provider: Yordy Potter MD on 11/22/2024 4:13 PM Sanna Bedoya MD DIAGNOSTIC IMAGING ORDERABLES F inal Result * (ABNORMAL) URINALYSIS REFLEX MICROSCOPIC REFLEX CULTURE (11/22/2024 6:40 AM CDT) Color UA Yellow Yellow, Straw 11/22/2024 6:[address] [facility] Clarity UA Turbid(A) Clear 11/22/2024 6:[address] [facility] Glucose UA 3+(A) Normal 11/22/2024 6:[address] [facility] Bilirubin UA Negative Negative 11/22/2024 6:[address] [facility] Ketone UA 2+(A) Negative 11/22/2024 6:[address] [facility] Specific [place] UA 1.013 1.005 - 1.030 11/22/2024 6:[address] [facility] Blood UA Negative Negative 11/22/2024 6:[address] [facility] pH UA 7.0 5.0 - 9.0 pH 11/22/2024 6:[address] [facility] Protein UA Negative Negative 11/22/2024 6:[address] [facility] Urobilinogen UA Normal Normal mg/dL 025 6:[address] [facility] Nitrite UA Negative Negative 11/22/2024 6:[address] [facility] Leukocyte UA Negative Negative 11/22/2024 6:[address] [facility] Urine URINE SPECIMEN OBTAINED BY CLEAN CATCH PROCEDURE / Unknown Collection / Unknown 11/22/2024 6:40 AM CDT 11/22/2024 6:42 AM CDT Narrative [facility] - 11/22/2024 6:49 AM CDT us Madelaine Johnson MD LAB - URINALYSIS ORDERABLES Fi nal Result Performing Organization Address [facility]/ZIP Co de Phone Number [address] [address], [place] [phone] * (ABNORMAL) CK BLOOD (11/22/2024 4:29 AM CDT) CK Total 15(L) 30 - 200 U/L 11/22/2024 4:47 AM CDT [facility] Blood BLOOD SPECIMEN / Unknown Venipuncture / Unknown 11/22/2024 4:29 AM CDT 11/22/2024 4:29 AM CDT us Madelaine Johnson MD LAB - CHEMISTRY ORDERABLES Fin al Result Performing Organization Address [facility]/ZIP Co de Phone Number [address] [address], [place] [phone] * LACTIC ACID BLOOD REFLEX TO REPEAT (11/22/2024 2:43 AM CDT) Pathologist [facility] Lactic Acid-Stat 1.7 <=2.0 mmol/L 11/22/2024 3:12 AM CDT [facility] Blood BLOOD SPECIMEN / Unknown Venipuncture / Unknown 11/22/2024 2:43 AM CDT 11/22/2024 2:47 AM CDT us Madelaine Johnson MD LAB - CHEMISTRY ORDERABLES Fin al Result Performing Organization Address [facility]/ZIP Co de Phone Number [address] [address], [place] [phone] * LIPASE BLOOD (11/22/2024 2:43 AM CDT) Lipase 10 8 - 78 U/L 11/22/2024 3:13 AM CDT [facility] Blood BLOOD SPECIMEN / Unknown Venipuncture / Unknown 11/22/2024 2:43 AM CDT 11/22/2024 2:47 AM CDT Narrative [facility] - 11/22/2024 3:13 AM CDT Lipase results from the Barrett Alinity analyzer may not be comparable with other methodologies. Madelaine Johnson MD LAB - CHEMISTRY ORDERABLES Fin al Result [facility] [address] [place] [address], [facility] [phone] * SARS-COV-2 (COVID-19)+INFLU A+B PCR RAPID (11/22/2024 1:59 AM CDT) COVID-19 PCR Not detected Not detected 11/23/19 2:44 AM CDT [facility] Influenza A Rapid SANTOSH Not Detected Not Detected 11/22/2024 2:44 AM CDT [facility] Influenza B SANTOSH Rapid Not Detected Not Detected 11/22/2024 2:44 AM CDT [facility] Microbiology SPECIMEN FROM NASOPHARYNGEAL STRUCTURE / Unknown Collection / Unknown 11/22/2024 1:59 AM CDT 11/22/2024 2:03 AM CDT Narrative [facility] - 11/22/2024 2:44 AM CDT Influenza assay performed by Nucleic Acid Amplification. Results do not exclude the possibility of a mixed viral infection. NOTE: Detecting and identifying specific viral nucleic acids from individuals exhibiting signs and symptoms of respiratory infection aids in the diagnosis of respiratory infection, if used in conjunction with other clinical and laboratory findings. The results of this test should not be used as the sole basis for diagnosis, treatment, or patient management decisions. This nucleic acid amplification assay performance was validated by [facility]. This test has been authorized by the Food and Drug administration (FDA)under an Emergency Use Authorization (EUA). This test has been validated in accordance with the FDA's guidance document Policy for Diagnostic Testing in Laboratories Certified to perform High Complexity Testing under CLIA prior to Emergency Use Authorization for Coronavirus Disease-2019 during the Public Health Emergency issued on October 24, 2019. FDA independent review of this validation is pending. This test is only authorized for the duration of time the declaration that circumstances exist justifying the authorization of emergency use of in vitro diagnostic tests for detection of SARS-CoV-2 virus and/or diagnosis of COVID-19 infection under section 564(b)(1) of the Act, 21 U.S.C 360bbb-3 (b)(1), unless the authorization is terminated or revoked sooner. Fact Sheets for this EUA assay are available upon request. Madelaine Johnson MD LAB - MICROBIOLOGY ORDERABLES Final Result [facility] [address] [place] [address], [facility] [phone] * (ABNORMAL) CBC W AUTO DIFFERENTIAL (11/22/2024 12:41 AM CDT) WBC 6.6 4.0 - 10.7 x10E9/L 11/22/2024 12:[address] [facility] RBC Count 5.04 3.90 - 5.20 x10E12/L 11/22/2024 12:[address] [facility] Hemoglobin 12.4 11.9 - 15.8 g/dL 11/22/2024 12:[address] [facility] Hematocrit 38.0 34.8 - 46.1 % 11/22/2024 12:[address] [facility] MCV 75.4(L) 80.0 - 98.0 fL 11/22/2024 12:[address] [facility] MCH 24.6(L) 26.7 - 33.6 pg 11/22/2024 12:[address] [facility] MCHC 32.6 31.7 - 36.3 g/dL 11/22/2024 12:[address] [facility] RDW-CV 14.9(H) 11.3 - 14.8 % 11/22/2024 12:[address] [facility] Platelet Count 235 150 - 420 x10E9/L 11/22/2024 12:[address] [facility] MPV 10.5 7.8 - 11.4 fL 11/22/2024 12:[address] [facility] Neutrophil % 61.2 41.0 - 74.0 % 11/22/2024 12:[address] [facility] Lymphocyte % 25.5 17.0 - 47.0 % 11/22/2024 12:[address] [facility] Monocyte % 11.7(H) 3.0 - 11.0 % 11/22/2024 12:[address] [facility] Eosinophil % 0.8 0.0 - 7.0 % 11/22/2024 12:[address] [facility] Basophil % 0.5 0.0 - 1.6 % 11/22/2024 12:[address] [facility] Immature Granulocytes % 0.3 0.0 - 1.0 % 11/22/2024 12:[address] [facility] Neutrophil Absolute 4.03 1.60 - 7.50 x10E9/L 11/22/2024 12:[address] [facility] Lymphocyte Absolute 1.68 1.00 - 4.40 x10E9/L 11/22/2024 12:[address] [facility] Monocyte Absolute 0.77 0.15 - 1.00 x10E9/L 11/22/2024 12:[address] [facility] Eosinophil Absolute 0.05 0.00 - 0.60 x10E9/L 11/22/2024 12:[address] [facility] Basophil Absolute 0.03 0.00 - 0.13 x10E9/L 11/22/2024 12:[address] [facility] Blood BLOOD SPECIMEN / Unknown Venipuncture / Unknown 11/22/2024 12:41 AM CDT 11/22/2024 12:46 AM CDT us Madelaine Johnson MD LAB - HEMATOLOGY ORDERABLES Fi nal Result [facility] [address] [place] [address], [facility] [phone] * (ABNORMAL) COMPREHENSIVE METABOLIC PANEL (11/22/2024 12:41 AM CDT) Pathologist [facility] BUN 8 7 - 26 mg/dL 11/22/2024 1:[address] [facility] Creatinine 0.68 0.56 - 0.96 mg/dL 11/22/2024 1:[address] [facility] Sodium 140 136 - 145 mmol/L 11/22/2024 1:[address] [facility] Potassium 4.0 3.5 - 4.5 mmol/L 11/22/2024 1:[address] [facility] Chloride 101 98 - 107 mmol/L 11/22/2024 1:[address] [facility] CO2 21(L) 22 - 29 mmol/L 11/22/2024 1:[address] [facility] Glucose 192(H) 70 - 99 mg/dL 11/22/2024 1:[address] [facility] Calcium 11.7(H) 8.4 - 10.2 mg/dL 11/22/2024 1:[address] [facility] Protein Total 7.7 6.0 - 8.3 g/dL 11/22/2024 1: AM [facility] Albumin 3.8 3.4 - 5.0 g/dL 11/22/2024 1:[address] [facility] Bilirubin Total 1.4(H) 0.2 - 1.2 mg/dL 11/22/2024 1:[address] [facility] Alkaline Phosphatase 65 40 - 150 U/L 11/22/2024 1:[address] [facility] ALT 18 5 - 55 U/L 11/22/2024 1:[address] [facility] AST 25 5 - 34 U/L 11/22/2024 1:[address] [facility] Anion Gap 18(H) 6 - 16 11/22/2024 1:[address] [facility] BUN/Creatinine Ratio 12 7 - 23 11/22/2024 1:[address] [facility] Osmolality Calculated 294 275 - 295 mOsm/kg 11/22/2024 1:[address] [facility] Albumin/Globulin Ratio 1.0(L) 1.1 - 2.3 11/22/2024 1:[address] [facility] eGFR by CKD-EPI >90 >=90 mL/min/1.7 3 m2 11/22/2024 1:21 AM CDT [facility] Blood BLOOD SPECIMEN / Unknown Venipuncture / Unknown 11/22/2024 12:41 AM CDT 11/22/2024 12:46 AM CDT Madelaine Johnson MD LAB - CHEMISTRY ORDERABLES Fin al Result Performing Organization Address [facility]/ZIP Co de Phone Number [address] [address], [facility] [phone] * HCG BETA BLOOD QUANTITATIVE (11/22/2024 12:41 AM CDT) Beta-hCG Total Quantitative <3 mIU/mL 11/22/2024 1:33 AM CDT [facility] Comment: HCG Numeric Result Interpretation: Non- Females: < 5 mIU/mL Post-Menopausal Females: < 7 mIU/mL This assay is cleared for use in the early detection of only. It is not approved for any other uses such as tumor marker screening, tumor marker monitoring, etc. and should not be used for any other purposes. Blood BLOOD SPECIMEN / Unknown Venipuncture / Unknown 11/22/2024 12:41 AM CDT 11/22/2024 12:46 AM CDT Madelaine Johnson MD LAB - CHEMISTRY ORDERABLES Fin al Result Performing Organization Address [facility] Co de Phone Number [address] [address], [facility] [phone] * HIV-1 HIV-2 ANTIBODY (11/10/2010 4:35 PM CDT) HIV-1/HIV-2 Nonreactive Nonreactive [facility] BLOOD SPECIMEN / Unknown 11/10/2010 4:35 PM CDT 11/10/2010 4:45 PM CDT Ladonna Vasques MD LAB - CHEMISTRY CRISTIANO HUFF Final Result [facility] [address] [place] [address] * HEPATITIS C ANTIBODY (11/10/2010 4:35 PM CDT) Hepatitis C Antibody Screen Nonreactive Nonreactive [facility] BLOOD SPECIMEN / Unknown 11/10/2010 4:35 PM CDT 11/10/2010 4:45 PM CDT us Ladonna Vasques MD LAB - CHEMISTRY CRISTIANO HUFF Final Result Performing Organization Address City/[facility] Co de Phone Number [facility] [address] [place] [address] * CYTOLOGY CERVICAL/VAG SCREEN THIN PREP (11/10/2010 4:30 PM CDT) Comment Thin Prep [facility] Pap Smear Report See Scanned Report [facility] ENTIRE ENDOCERVIX / Unknown 11/10/2010 4:30 PM CDT 11/10/2010 4:45 PM CDT Narrative Resulting Agency Comment Performed By [facility]() [address] [place] [id number] us Ladonna Vasques MD LAB - PATHOLOGY/CYTO LOGY ORDERABLES Final Result Performing Organization Address City/[facility] Co de Phone Number [facility] [address] [place] [address] from Last 3 Months or Most Recently Relevant to Health Maintenance Insurance [facility] SELF PAY NO INSURANCE Member Subscriber Plan / Payer (Ef fective for All Dates) Name:Tara Hinkle Member ID:Not on file Relation to Subscriber:Not on file Name:TARA HINKLE Subscriber ID:Not on file (Home) Address: [address] [place] [address] Payer ID:Not on file Group ID:Not on file Type:Self Pay Address: [place], [place] [facility] Advance Directives * Full Code (Latest Code Status on File) Date Activated Date Inactivated Comments 11/22/2024 8:10 AM 11/30/2024 7:03 PM * Full Code Date Activated Date Inactivated Comments 05/12/2010 8:28 AM 05/17/2010 1:34 AM * Full Code Date Activated Date Inactivated Comments 04/27/2010 1:44 AM 04/28/2010 6:32 AM * Full Code Date Activated Date Inactivated Comments 02/20/2010 8:35 PM 02/25/2010 5:19 AM
--- OUTSIDE RECORDS SUMMARY | 2024-12-15 08:04 | XMS_ITS | CONTINUITY OF CARE DOCUMENT ---
Author Name prasanna mims Address Unknown Organization [facility] Address [address] [facility] [address] [place] [address] Phone [phone] Care Team Providers Care Quote Clerk Name Role Phone Thomas Hollins MD Unavailable [phone] Thomas Hollins MD Unavailable [phone] INSURANCE PROVIDERS Payer name Policy type / Coverage type Mary red constitution party ID [place] [employer] Medicaid [id number]
--- OUTSIDE RECORDS SUMMARY | 2024-12-15 08:04 | XMS_ITS | Clinical Summary ---
Author Organization [facility] Address [address], [address] [address] Phone Care Team Providers Care Staff Reporter Name Role Phone Unavailable Primary Care Provider [...] KitIndications:T ype 1 diabetes mellitus without complication by Does not apply route. Active Glucose Blood (ONE TOUCH TEST STRIPS) StripIndications :Type 1 diabetes mellitus without complication by In Vitro route. Use as directed [...] Comments Blood Pressure 118/74 07/01/2017 1:18 PM OUTSIDE MACHINIST HELPER Pulse 77 07/01/2017 1:18 PM OUTSIDE MACHINIST HELPER Temperature 36.2 C (97.2 F) 07/11/2016 9:24 AM OUTSIDE MACHINIST HELPER Respiratory Rate 18 07/01/2017 1:18 PM OUTSIDE MACHINIST HELPER Oxygen Saturation 97% 07/01/2017 1:18 PM OUTSIDE MACHINIST HELPER Inhaled Oxygen Concentration - - Weight 70.3 kg (155 lb) 07/01/2017 1:18 PM OUTSIDE MACHINIST HELPER Height 162.6 cm (5' 4 ) 07/01/2017 1:18 PM OUTSIDE MACHINIST HELPER Body Mass Index 26.61 07/01/2017 1:18 PM OUTSIDE MACHINIST HELPER Plan of Treatment Health Maintenance Due Date Last Done Comments Hepatitis C Virus (HCV) Screening 1987 Influenza Immunization (#1) 2024 06/24/2018, 0 05/11/2016 [...] age to complete this topic Insurance MEDICAID [place]
--- OUTSIDE RECORDS SUMMARY | 2024-12-15 08:04 | XMS_ITS | Clinical Summary ---
Author Organization [facility] Facility Address [address] [address] Care Team Providers Care School Attendance Secretary Name Role Phone Janak Adams MD Primary Care Provider [phone] Social History Tobacco Use Types Packs/Day Years [...] Maintenance Due Date Last Done Comments Hepatitis B Vaccine (1 of 3 - 19+ 3-dose series) 2006 Pneumococcal Vaccine: Peds ( 0 to 5 Years) and At-Risk Patients (6 to 49 Years) (1 of 2 - PCV) 2006 Diabetes: Hemoglobin A1C 04/01/2023 Diabetes: Ophthalmology Exam 04/01/2023 Diabetes: Pedal Pulse Checked 04/01/2023 Diabetes: Sensory Foot Exam 04/01/2023 Diabetes: Visual Foot Exam 04/01/2023 Influenza Vaccine (Season Ended) 2025 06/24/20 18, 05/11/2016 Insurance [place] Medicaid Care Teams School Attendance Secretary Relationship Specialty Start Date End Date Janak Adams MD [address] [place] [address] PCP - General Endocrinology 02/25/24
== END 2024-12-15 07:55 | disposition home or self-care (01) ==
PROVIDERS: PCP Family Medicine; Visit Provider Surgery
DX: R11.0 Nausea (principal)
CPT/HCPCS: 78227; A9537; J2805

== ENCOUNTER 2024-12-17 07:37 | Outpatient (CLI) | payer OTHER, SELFPAY ==
--- NOTE | ~2024-12-17 | NM_ITS ---
History: Nausea. Nuclear Medicine Gastric Emptying Assessment: The patient was orally administered 4 oz. cooked egg whites, 2 pieces white bread toast, 30 gm. jam o r jelly and 4 oz. water to be consumed within 10 minutes. 0.972 mCi. Tc-99m was cooked into the egg whites using microwave oven. Patient was placed supine and using a dual head gamma camera 2 minute planar anterior and posterior i mages were acquired at 0.5 , 1 ,2 , 3, and 4 hrs. or until = or > than 90% gastric emptying was achie naseem. Regions of interest were drawn about the stomach and using the geometric mean method and decay c orrection, percent gastric retention was calculated. PERCENT GASTRIC RETENTION : 1 hr. 74% 2 hr. 43% 4 hr. 21% Impression: Gastric retention percentages are within normal limits at the 1 and 2 hour shamir, but ther e is somewhat increased percentage retention at the 4 hour shamir. Correlate for mildly delayed gastric imaging. Normal Limits for Gastric Retention Time point Lower limit (a lower value Upper limit (a suggests abnormally rapid greater value gastric emptying) suggests abnormally delayed gastric emptying) 0.5 hr. 70% 1 hr. 30% 90% 2 hr. 60% 3 hr. 30% 4 hr. 10% Data are from Am J Gastroenterology. 2007;102:-11. Reviewed, dictated and finalized at [facility]. Impression: Gastric retention percentages are within normal limits at the 1 and 2 hour shamir, but there is somewhat increased percentage retention at the 4 jeimy r shamir. Correlate for mildly delayed gastric imaging. Normal Limits for Gastric Retention Time point Lower limit (a lower value Upper limit (a suggests abnormally rapid greater value gastric emptying) suggests abnorm hannah morel gastric e mptying) 0.5 hr. 70% 1 hr. 30% 90% 2 hr. 60% 3 hr. 30% 4 hr. 10% Data are from Am J Gastroenterology. 2007;102:-11.
--- OUTSIDE RECORDS SUMMARY | 2024-12-17 07:41 | XMS_ITS | Encounter Summary ---
Author Organization [facility] Address [facility] [place] [address] Care Team Providers Care Pad Assembler Name Role Phone Clinic, [facility] Primary Care Provider [phone] Sidney Vicente MD Primary Care Provider + [facility] Primary Care Provider [phone] Sidney Vicente MD Primary Care Provider + [facility] Primary Care Provider [phone] Sidney Vicente MD Primary Care Provider + Sharri Alonso MD Primary Care Provider [phone] [facility] Primary Care Provider [phone] [facility] Primary Care Provider [phone] Encounter Details Date Type Department Care Team (Late st Contact Info) Description 05/03/2010 Telephone [facility] [address] [place], [place] [phone] Liz Ramey MD [address] [phone] Social History Tobacco Use Types Packs/Day Years Used Date Smoking Tobacco: Every Day Cigarettes 0.5 10 Comments:interested in quitt ing Alcohol Use Standard Drinks/Week Comments No 0 (1 standard drink = 0.6 oz pur e alcohol) Comments Yes Sex and Gender Information Value Date Recorded Sex Assigned at Not on file Legal Sex Female 6:26 AM 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 AND 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 INFORMATION OFFICER Gender Identity Not on file Sexual Orientation Not on file 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 on file Not on file Not on file documented as of this encounter Plan of Treatment Not on file documented as of this encounter Visit Diagnoses Not on filedocumented in this encounter Additional Health Concerns Infection Onset Date Last Indicated Resolved Time COVID-19 Under Investigation 11/22/2024 11/22/2024 11/22/2024 2:44 AM CDT documented as of this encounter Care Teams Pad Assembler Relationship Specialty Start Date End Date [facility] [address] [place] [id number] PCP - General 04/17/10 05/13/10 Sidney Vicente MD [address] [place], [place] [id number] PCP - General 05/14/10 05/15/10 [facility] Ob/[address] [id number] PCP - General 05/16/10 05/16/10 Sidney Vicente MD [address] [place], [place] [phone] PCP - General 05/17/10 05/17/10 [facility] [address] [place] [id number] PCP - General 05/18/10 06/13/10 Sidney Vicente MD [address] [place], [place] [id number] PCP - General 06/14/10 09/21/10 Sharri Alonso MD [address] [phone] PCP - General 09/22/10 11/09/10 [facility] [address] [place] [id number] PCP - General 11/10/10 11/13/10 [facility] [address] [place] [id number] PCP - General 11/14/10 11/15/10 documented as of this encounter
--- OUTSIDE RECORDS SUMMARY | 2024-12-17 07:42 | XMS_ITS | Clinical Summary ---
Author Organization [facility] Whyd Address [address] [place] [address] Care Team Providers Care Seed Sales Manager Name Role Phone Unavailable Primary Care Provider Unavailabl e Source Comments [facility],non-owned Affiliates and Associated Physician Practices is amultiple site organization consisting of ambulatory clinics and hospital sitesin [place], [place], [place] and [place]. This disclosure is being madepursuant to the Care Everywhere program and may not contain all information available regarding this patient. Last updated 18.[employer] Allergies No known active allergies Medications * [...] complication 10/06/2009 Overview (10/06/2009): 2 prior at [facility], pt wants repeat. Both LTCS. Need for ovpebij-kevpp-aopfhjy (MMR) vaccine 06/2010 Overview (01/17/2015): MMR after [...] Team Description 12/07/2024 Telephone Transitional Care at [address] [address] Prema Broussard RN Missed Appointment 12/04/2024 Telephone Transitional Care at [address] [address] Jaci Echevarria MA Reminder Call 12/02/2024 Telephone Transitional Care at [address] [address] Emily Jose, reach truck operator 12/02/2024 Telephone Transitional Care at [address] [address] Emily Jose, reach truck operator 12/01/2024 Telephone Transitional Care at [address] [address] Emily Jose, reach truck operator 11/22/2024 12:55 AM CDT - 11/30/2024 6:03 PM CDT Hospital Encounter SL 6S ACUTE [address] [place] [address] Madelaine Johnson MD Kumar, Ashwath, MD Halani, [...] and heating? Not hard at all 11/25/2024 [facility] Sawyer of Occupat ional Health - Occupational Stress [...] any time in the past 12 m [facility], were you homeless or living in a detention (including now)? 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 Pathologist [facility] Glucose WB/POC 233(H) 70 - 99 mg/dL 11/30/2024 4:58 PM CDT [facility] Specimen Type Cap Fingerstick 2024 4:58 PM CDT [facility] Blood BLOOD SPECIMEN / Unknown 11/30/2024 4:09 PM CDT 11/30/2024 4:58 PM CDT Constance Houser MD LAB - POINT OF CARE ORDERABLES Final Result [address] [address], [facility] [phone] * (ABNORMAL) CBC W/O DIFFERENTIAL (11/30/2024 8:35 AM CDT) Only the most recent of8 resultswithin the time period is included. [facility] WBC 4.9 4.0 - 10.7 x10E9/L 11/30/2024 9:05 AM [facility] RBC Count 3.62(L) 3.90 - 5.20 x10E12/L 11/30/2024 9:05 AM [facility] Hemoglobin 8.9(L) 11.9 - 15.8 g/dL 11/30/2024 9:05 AM [facility] Hematocrit 27.5(L) 34.8 - 46.1 % 11/30/2024 9:05 AM [facility] MCV 76.0(L) 80.0 - 98.0 fL 11/30/2024 9:05 AM [facility] MCH 24.6(L) 26.7 - 33.6 pg 11/30/2024 9:05 AM [facility] MCHC 32.4 31.7 - 36.3 g/dL 11/30/2024 9:05 AM [facility] RDW-CV 15.3(H) 11.3 - 14.8 % 11/30/2024 9:05 AM [facility] Platelet Count 291 150 - 420 x10E9/L 11/30/2024 9:05 AM [facility] MPV 10.6 7.8 - 11.4 fL 11/30/2024 9:05 AM [facility] Blood BLOOD SPECIMEN / Unknown Lab Venipuncture / Unknown 11/30/2024 8:35 AM CDT 11/30/2024 9:00 AM T us Horacio Henao MD LAB - HEMATOLOGY ORDERABLES Fin al Result [facility] [address] [place] [address], [facility] [phone] * (ABNORMAL) RENAL FUNCTION PANEL (11/30/2024 8:35 AM T) BUN 8 7 - 26 mg/dL 11/30/2024 9:43 AM [facility] Creatinine 0.46(L) 0.56 - 0.96 mg/dL 11/30/2024 9:43 AM [facility] Sodium 133(L) 136 - 145 mmol/L 11/30/2024 9:43 AM [facility] Potassium 4.2 3.5 - 4.5 mmol/L 11/30/2024 9:43 AM [facility] Chloride 101 98 - 107 mmol/L 11/30/2024 9:43 AM [facility] CO2 20(L) 22 - 29 mmol/L 11/30/2024 9:43 AM [facility] Glucose 335(H) 70 - 99 mg/dL 11/30/2024 9:43 AM [facility] Albumin 2.8(L) 3.4 - 5.0 g/dL 11/30/2024 9:43 AM [facility] Calcium 8.8 8.4 - 10.2 mg/dL 11/30/2024 9:43 AM CDT [facility] Phosphorus 4.3 2.9 - 5.1 mg/dL 11/30/2024 9:43 AM T [facility] Anion Gap 12 6 - 16 11/30/2024 9:43 AM T [facility] BUN/Creatinine Ratio 17 7 - 23 11/30/2024 9:43 AM T [facility] Osmolality Calculated 287 275 - 295 mOsm/kg 11/30/2024 9:43 AM T [facility] eGFR by CKD-EPI >90 >=90 mL/min/1.7 3 m2 11/30/2024 9:43 AM T [facility] Blood BLOOD SPECIMEN / Unknown Lab Venipuncture / Unknown 11/30/2024 8:35 AM CDT 11/30/2024 9:09 AM CDT us Sacha Swanson MD LAB - CHEMISTRY ORDERABLES Final Result Performing Organization Address City/[facility]/ZIP Co de Phone Number [address] [address], [facility] [phone] * (ABNORMAL) MAGNESIUM BLOOD (11/30/2024 8:35 AM CDT) Only the most recent of30 resultswithin the time period is included. Pathologist [facility] Magnesium 1.4(L) 1.6 - 2.6 mg/dL 11/30/2024 9:43 AM CDT [facility] Blood BLOOD SPECIMEN / Unknown Lab Venipuncture / Unknown 11/30/2024 8:35 AM CDT 11/30/2024 9:09 AM CDT us Sacha Swanson MD LAB - CHEMISTRY ORDERABLES Final Result [address] [address], [facility] [phone] * (ABNORMAL) BASIC METABOLIC PANEL (CALCIUM TOTAL) (11/29/2024 11:35 AM CDT) Only the most recent of31 resultswithin the time period is included. BUN 6(L) 7 - 26 mg/dL 11/29/2024 12:11 PM [facility] Creatinine 0.50(L) 0.56 - 0.96 mg/dL 11/29/2024 12:11 PM [facility] Sodium 135(L) 136 - 145 mmol/L 11/29/2024 12:11 PM [facility] Potassium 4.0 3.5 - 4.5 mmol/L 11/29/2024 12:11 PM [facility] Chloride 102 98 - 107 mmol/L 11/29/2024 12:11 PM [facility] CO2 23 22 - 29 mmol/L 11/29/2024 12:11 PM [facility] Glucose 252(H) 70 - 99 mg/dL 11/29/2024 12:11 PM [facility] Calcium 8.4 8.4 - 10.2 mg/dL 11/29/2024 12:11 PM [facility] Anion Gap 10 6 - 16 11/29/2024 12:11 PM [facility] BUN/Creatinine Ratio 12 7 - 23 11/29/2024 12:11 PM [facility] Osmolality Calculated 286 275 - 295 mOsm/kg 11/29/2024 12:11 PM [facility] eGFR by CKD-EPI >90 >=90 mL/min/1.7 3 m2 11/29/2024 12:11 PM [facility] Blood BLOOD SPECIMEN / Unknown Venipuncture / Unknown 11/29/2024 11:35 AM CDT 11/29/2024 11:45 AM CDT us Horacio Henao MD LAB - CHEMISTRY ORDERABLES Kimmy l Result [facility] [address] [place] [address], [facility] [phone] * PHOSPHORUS BLOOD (11/29/2024 11:35 AM CDT) Only the most recent of29 resultswithin the time period is included. Phosphorus 3.8 2.9 - 5.1 mg/dL 11/29/2024 12:11 PM CDT [facility] Blood BLOOD SPECIMEN / Unknown Venipuncture / Unknown 11/29/2024 11:35 AM CDT 11/29/2024 11:45 AM CDT us Horacio Henao MD LAB - CHEMISTRY ORDERABLES Kimmy l Result [place] [id number] [place] [address], [facility] [phone] * US THYROID (11/28/2024 1:45 PM CDT) Anatomical Region Laterality Modality Chest Ultrasound 11/28/2024 4:35 PM CDT Impressions 11/30/2024 9:58 AM CDT IMPRESSION: Multiple subcentimeter thyroid nodules. Diffusely heterogeneous thyroid echotexture with associated hyperemia of the thyroid parenchyma, suggestive of thyroiditis. > Dictated by Sandeep Sethi MD (energy operations vice president). Xander Valdes MD have personally reviewed and interpreted this examination/study. > Interpreting Provider: Xander Paiz MD on 11/30/2024 9:58 AM Narrative 11/30/2024 9:58 AM CDT PROCEDURE: US THYROID, DATE/TIME OF EXAM: 11/28/2024 2:27 PM, [facility] INDICATION: E05.90: Hyperthyroidism ADDITIONAL CLINICAL INFORMATION: Ordering [...] DATE/TIME OF EXAM: 11/28/2024 2:27 PM, [facility] INDICATION: E05.90: Hyperthyroidism ADDITIONAL CLINICAL INFORMATION: Ordering [...] thyroiditis. > Dictated by Sandeep Sethi MD (energy operations vice president). I, Xander Paiz MD have personally reviewed and interpreted this examination/study. > Interpreting Provider: Xander Paiz MD on 11/30/2024 9:58 AM us Horacio Henao MD ORDERABLES Final Result * (ABNORMAL) FOLATE (11/28/2024 12:18 PM CDT) Folate 37.7(H) 7.0 - 31.4 ng/mL 11/28/2024 2:30 PM CDT [facility] Comment:Result obtained by vishal rincon. Blood BLOOD SPECIMEN / Unknown Venipuncture / Unknown 11/28/2024 12:18 PM CDT 11/28/2024 12:41 PM CDT us Sacha Swanson MD LAB - CHEMISTRY ORDERABLES Final Result [facility] [address] [place] [phone], [facility] [phone] * (ABNORMAL) VITAMIN B12 (11/28/2024 12:18 PM CDT) Vitamin B12 1,133(H) 213 - 816 pg/mL 11/28/2024 1:53 PM CDT [facility] Blood BLOOD SPECIMEN / Unknown Venipuncture / Unknown 11/28/2024 12:18 PM CDT 11/28/2024 12:41 PM CDT us Sacha Swanson MD LAB - CHEMISTRY ORDERABLES Final Result [address] [address], [place] [phone] * (ABNORMAL) IRON + TRANSFERRIN PANEL (11/28/2024 12:18 PM CDT) Iron 46 40 - 150 ug/dL 11/28/2024 1:21 PM CDT [facility] Transferrin 243 174 - 382 mg/dL 11/28/2024 1:21 PM CDT [facility] Transferrin Saturation % 15(L) 16 - 50 % 11/28/2024 1:21 PM CDT [facility] TIBC Calculated 304 240 - 450 ug/dL 11/28/2024 1:21 PM CDT [facility] Blood BLOOD SPECIMEN / Unknown Venipuncture / Unknown 11/28/2024 12:18 PM CDT 11/28/2024 12:38 PM CDT Sacha Swanson MD LAB - CHEMISTRY ORDERABLES Final Result [address] [address], [place] [phone] * FERRITIN (11/28/2024 12:18 PM CDT) Ferritin 17 13 - 204 ng/mL 11/28/2024 1:38 PM CDT [facility] Blood BLOOD SPECIMEN / Unknown Venipuncture / Unknown 11/28/2024 12:18 PM CDT 11/28/2024 12:38 PM CDT Sacha Swanson MD LAB - CHEMISTRY ORDERABLES Final Result [address] [address], [place] [phone] * ACTH 60 MINUTES (11/28/2024 9:22 AM CDT) Cortisol 60 Min 23.7 >=20.0 mcg/dL 11/28/2024 10:22 AM CDT [facility] Blood BLOOD SPECIMEN / Unknown Venipuncture / Unknown 11/28/2024 9:22 AM CDT 11/28/2024 9:38 AM CDT Horacio Henao MD LAB - CHEMISTRY ORDERABLES Kimmy l Result [facility] [address] [place] [address], [place] [phone] * (ABNORMAL) ACTH 30 MINUTES (11/28/2024 8:49 AM CDT) Cortisol 30 Min 19.8(L) >=20.0 mcg/dL 11/28/2024 10:02 AM CDT [facility] Blood BLOOD SPECIMEN / Unknown Venipuncture / Unknown 11/28/2024 8:49 AM CDT 11/28/2024 9:18 AM CDT Horacio Henao MD LAB - CHEMISTRY ORDERABLES Kimmy l Result Performing Organization Address [facility]/ZIP Co de Phone Number [facility] [address] [place] [address], [place] [phone] * ACTH CORTISOL BASELINE (11/28/2024 8:14 AM CDT) Cortisol Baseline 7.8 No Reference Range Established mcg/dL 11/28/2024 9:14 AM CDT [facility] Blood BLOOD SPECIMEN / Unknown Venipuncture / Unknown 11/28/2024 8:14 AM CDT 11/28/2024 8:28 AM CDT Horacio Henao MD LAB - CHEMISTRY ORDERABLES Kimmy l Result Performing Organization Address City/[facility]/ZIP Co de Phone Number [facility] [address] [place] [address], [place] [phone] * (ABNORMAL) THYROID PEROXIDASE ANTIBODY (11/28/2024 4:26 AM CDT) Pathologist [facility] Thyroid Peroxidase TPO Antibody 465.3(H) 0.0 - 9.0 IU/mL 11/29/2024 11:50 PM CDT [facility] ([facility]) Comment: Performed By: [employer] [address] [place] [address] Data Center Technician: Zana Guardado MD, PhD CLIA Number: [id number] Blood BLOOD SPECIMEN / Unknown Venipuncture / Unknown 11/28/2024 4:26 AM CDT 11/28/2024 4:37 AM CDT Horacio Henoa MD LAB - CHEMISTRY ORDERABLES Kimmy l Result [facility] [address] [place] [address] * (ABNORMAL) THYROID STIMULATING IMMUNOGLOBULIN (TSI) (11/28/2024 4:26 AM CDT) Pathologist [facility] Thyroid Stimulating Immunoglobulin TSI 5.13(H) <=0.54 IU/L 11/30/2024 10:35 PM CDT [facility] ([facility]) Comment: INTERPRETIVE INFORMATION: Thyroid Stimulating Immunoglobulin (TSI) [...] medical history, and other findings. Performed By: [employer] [address] [place] [address] Data Center Technician: Zana Guardado MD, PhD CLIA Number: [id number] Blood BLOOD SPECIMEN / Unknown Venipuncture / Unknown 11/28/2024 4:26 AM CDT 11/28/2024 4:37 AM CDT Horacio Henao MD LAB - CHEMISTRY ORDERABLES Kimmy l Result [facility] Amara [facility]) [address] [place] [address] * (ABNORMAL) T3 FREE (11/28/2024 4:26 AM CDT) T3 Free 5.5(H) 1.7 - 3.7 pg/mL 11/28/2024 5:34 AM CDT [facility] Blood BLOOD SPECIMEN / Unknown Venipuncture / Unknown 11/28/2024 4:26 AM CDT 11/28/2024 4:43 AM CDT Horacio Henao MD LAB - CHEMISTRY ORDERABLES Kimmy l Result Performing Organization Address [facility] Co de Phone Number [address] [address], [facility] [phone] * (ABNORMAL) TSH RECEPTOR ANTIBODY (11/28/2024 4:26 AM CDT) Pathologist [facility] TSH Receptor Antibody 5.37(H) <=1.75 IU/L 11/30/2024 3:50 PM CDT [facility] [place] ([facility]) Comment: Performed By: [employer] [address] [place] [address] Data Center Technician: Zana Guardado MD, PhD CLIA Number: [id number] Blood BLOOD SPECIMEN / Unknown Venipuncture / Unknown 11/28/2024 4:26 AM CDT 11/28/2024 4:37 AM CDT Horacio Henao MD LAB - CHEMISTRY ORDERABLES Kimmy l Result Performing Organization Address City/[facility]/ZIP Co de Phone Number [facility] [place] [address] * (ABNORMAL) TSH (11/28/2024 4:26 AM CDT) TSH <0.010(L) 0.350 - 4.940 uIU/mL 11/28/2024 5:34 AM CDT [facility] Blood BLOOD SPECIMEN / Unknown Venipuncture / Unknown 11/28/2024 4:26 AM CDT 11/28/2024 4:43 AM CDT Horacio Henao MD LAB - CHEMISTRY ORDERABLES Kimmy l Result [address] [address], [facility] [phone] * (ABNORMAL) T4 FREE (11/28/2024 4:26 AM CDT) Only the most recent of2 resultswithin the time period is included. T4 Free 2.0(H) 0.7 - 1.5 ng/dL 11/28/2024 5:34 AM CDT [facility] Blood BLOOD SPECIMEN / Unknown Venipuncture / Unknown 11/28/2024 4:26 AM CDT 11/28/2024 4:43 AM CDT Horacio Henao MD LAB - CHEMISTRY ORDERABLES Kimmy l Result Performing Organization Address City/[facility] Co de Phone Number [address] [address], [facility] [phone] * (ABNORMAL) T4 TOTAL (11/28/2024 4:26 AM CDT) T4 Total 12.80(H) 4.50 - 11.70 ug/dL 11/30/2024 12:35 PM CDT [employer] ([facility]) Comment: Performed By: [employer] [address] [place] [address] Data Center Technician: Zana Guardado MD, PhD CLIA Number: [id number] Blood BLOOD SPECIMEN / Unknown Venipuncture / Unknown 11/28/2024 4:26 AM CDT 11/28/2024 4:37 AM CDT Horacio Henao MD LAB - CHEMISTRY ORDERABLES Kimmy l Result [facility] Amara [facility]) [address] [place] [address] * (ABNORMAL) T3 TOTAL (11/28/2024 4:26 AM CDT) Pathologist [facility] T3 Total 237(H) 80 - 200 ng/dL 11/30/2024 5:27 PM CDT [facility] ([facility]) Comment: REFERENCE INTERVAL: Triiodothyronine, Total (Total T3) Access complete set of age- and/or gender-specific reference intervals for this test in the [facility] Laboratory Test Directory ([employer]). Performed By: [facility] [employer] [address] [place] [address] Data Center Technician: Zana Guardado MD, PhD CLIA Number: [id number] Blood BLOOD SPECIMEN / Unknown Venipuncture / Unknown 11/28/2024 4:26 AM CDT 11/28/2024 4:37 AM CDT Horacio Henao MD LAB - CHEMISTRY ORDERABLES Kimmy l Result Performing Organization Address [facility] de Phone Number [facility] [address] [place] [address] * (ABNORMAL) CORTISOL BLOOD AM (11/28/2024 4:26 AM CDT) [facility] Cortisol AM 2.8(L) 3.7 - 19.4 ug/dL 11/28/2024 5:33 AM CDT [facility] Blood BLOOD SPECIMEN / Unknown Venipuncture / Unknown 11/28/2024 4:26 AM CDT 11/28/2024 4:43 AM CDT Narrative [facility] - 11/28/2024 5:33 AM CDT Normal cortisol levels are generally highest in the morning hours and lowest from late evening through the building coordinator hours (8 PM to 4 AM). The PM measurements of cortisol run approximately one-half to one-third of the AM values. Horacio Henao MD LAB - CHEMISTRY ORDERABLES Kimmy l Result Performing Organization Address [facility] Co de Phone Number [address] [address], [facility] [phone] * (ABNORMAL) HYDROXYBUTYRATE BETA (11/27/2024 12:08 PM CDT) Only the most recent of5 resultswithin the time period is included. Beta-Hydroxybu tyrate 1.72(H) <0.50 mmol/L 11/27/2024 12:45 PM CDT [facility] Blood BLOOD SPECIMEN / Unknown Venipuncture / Unknown 11/27/2024 12:08 PM CDT 11/27/2024 12:16 PM CDT Horacio Henao MD LAB - CHEMISTRY ORDERABLES Kimmy l Result Performing Organization Address [facility] Co de Phone Number [address] [address], [facility] [phone] * EKG 12-LEAD (11/27/2024 10:58 AM CDT) Only the most recent of4 resultswithin the time period is included. Pathologist [facility] Ventricular Rate 96 BPM SL MUSE Atrial Rate 96 BPM [facility] P-R Interval 142 ms [facility] QRS Duration ms 70 ms [facility] Q-T Interval ms 364 ms [facility] QTC Calculation (Bezet) 459 ms [facility] Calculated P [place] 55 degrees [facility] Calculated R [place] 9 degrees [facility] Calculated T [place] 44 degrees [facility] Interpretation EKG NORMAL SINUS RHYTHM NORMAL ECG WHEN COMPARED WITH ECG OF 25-NOV-2024 08:15, Heart rate is slower with lateral injury pattern no longer present Confirmed by MARY GRACE JARQUIN DO ([id number]) on 12/06/2024 5:44:03 PM [facility] 11/27/2024 10:5 8 AM CDT 12/06/2024 5:44 PM CDT Horacio Henao MD ECG ORDERABLES Edited Result - Final Performing Organization Address [facility] Co de Phone Number [facility] * (ABNORMAL) URINALYSIS REFLEX TO MICROSCOPIC NO CULTURE (11/27/2024 10:48 AM T) Color UA Colorless(A ) Yellow, Straw 11/27/2024 11:14 AM [facility] Clarity UA Clear Clear 11/27/2024 11:14 AM [facility] Glucose UA 4+(A) Normal 11/27/2024 11:14 AM [facility] Bilirubin UA Negative Negative 11/27/2024 11:14 AM [facility] Ketone UA 1+(A) Negative 11/27/2024 11:14 AM [facility] Specific [place] UA 1.006 1.005 - 1.030 11/27/2024 11:14 AM [facility] Blood UA 3+(A) Negative 11/27/2024 11:14 AM [facility] pH UA 5.5 5.0 - 9.0 pH 11/27/2024 11:14 AM [facility] Protein UA Negative Negative 11/27/2024 11:14 AM [facility] Urobilinogen UA Normal Normal mg/dL 11/27/2024 11:14 AM [facility] Nitrite UA Negative Negative 11/27/2024 11:14 AM [facility] Leukocyte UA Negative Negative 11/27/2024 11:14 AM [facility] RBC UA 11-20(A) 0 - 5 # /hpf 11/27/2024 11:14 AM [facility] WBC UA 0-5 0 - 5 # /hpf 11/27/2024 11:14 AM [facility] Bacteria UA Trace(A) None Seen 11/27/2024 11:14 AM [facility] Squamous Epithelial Cells 0-2 0 - 5 /hpf 11/27/2024 11:14 AM [facility] Urine URINE SPECIMEN OBTAINED BY CLEAN CATCH PROCEDURE / Unknown Collection / Unknown 11/27/2024 10:48 AM CDT 11/27/2024 10:53 AM CDT Horacio Henao MD LAB - URINALYSIS ORDERABLES Fin al Result [address] [address], [place] [phone] * UREA NITROGEN URINE RANDOM (11/27/2024 10:48 AM CDT) Urea Nitrogen Random Urine 78 Not Established mg/dL 11/27/2024 11:18 AM CDT [facility] Urine URINE SPECIMEN OBTAINED BY CLEAN CATCH PROCEDURE / Unknown Collection / Unknown 11/27/2024 10:48 AM CDT 11/27/2024 11:05 AM CDT Horacio Henao MD LAB - URINE CHEMISTRY ORDERABLE S Final Result Performing Organization Address [facility] Co de Phone Number [address] [address], [place] [phone] * OSMOLALITY URINE (11/27/2024 10:48 AM CDT) Osmolality Urine 258 50 - 1,200 mOsm/kg 11/27/2024 11:55 AM CDT [facility] Urine URINE SPECIMEN OBTAINED BY CLEAN CATCH PROCEDURE / Unknown Collection / Unknown 11/27/2024 10:48 AM CDT 11/27/2024 11:05 AM CDT Horacio Henao MD LAB - URINE CHEMISTRY ORDERABLE S Final Result Performing Organization Address [facility]/ZIP Co de Phone Number [address] [address], [place] [phone] * LYTES (NA K CL) URINE RANDOM PANEL (11/27/2024 10:48 AM CDT) Sodium Urine 65 Not Established mmol/L 11/27/2024 11:18 AM CDT [facility] Potassium Urine 10.6 Not Established mmol/L 11/27/2024 11:18 AM CDT [facility] Chloride Random Urine 65 Not Established mmol/L 11/27/2024 11:18 AM CDT [facility] Urine URINE SPECIMEN OBTAINED BY CLEAN CATCH PROCEDURE / Unknown Collection / Unknown 11/27/2024 10:48 AM CDT 11/27/2024 11:05 AM CDT Horacio Hneao MD LAB - URINE CHEMISTRY ORDERABLE S Final Result Performing Organization Address [facility]/ZIP Co de Phone Number [address] [address], [place] [phone] * CREATININE URINE RANDOM (11/27/2024 10:48 AM CDT) Creatinine Urine 7.06 Not Established mg/dL 11/27/2024 11:18 AM CDT [facility] Urine URINE SPECIMEN OBTAINED BY CLEAN CATCH PROCEDURE / Unknown Collection / Unknown 11/27/2024 10:48 AM CDT 11/27/2024 11:05 AM CDT Horacio Henao MD LAB - URINE CHEMISTRY ORDERABLE S Final Result Performing Organization Address [facility] de Phone Number [address] [address], [place] [phone] * CT Head Wo Contrast (11/27/2024 9:41 [...] DATE/TIME OF EXAM: 11/27/2024 9:42 AM, LOCATION [facility] INDICATION: E08.10: Diabetic ketoacidosis without coma associated [...] DATE/TIME OF EXAM: 11/27/2024 9:42 AM, LOCATION [facility] INDICATION: E08.10: Diabetic ketoacidosis without coma associated [...] FREE T4 (11/27/2024 8:20 AM CDT) Pathologist [facility] TSH <0.010(L) 0.350 - 4.940 uIU/mL 11/27/2024 9:46 AM CDT [facility] Blood BLOOD SPECIMEN / Unknown Venipuncture / Unknown 11/27/2024 8:20 AM CDT 11/27/2024 8:57 AM CDT Horacio Henao MD LAB - CHEMISTRY ORDERABLES Kimmy l Result [address] [address], [facility] [phone] * TROPONIN-I HIGH SENSITIVE (11/25/2024 8:26 AM CDT) Only the most recent of2 resultswithin the time period is included. [facility] Troponin I High Sensitive <3 <=14 ng/L 11/25/2024 9:36 AM CDT [facility] Blood BLOOD SPECIMEN / Unknown Venipuncture / Unknown 11/25/2024 8:26 AM CDT 11/25/2024 8:59 AM CDT Horacio Henao MD LAB - CHEMISTRY ORDERABLES Kimmy l Result [address] [address], [facility] [phone] * CARDIAC EKG ORDER (11/23/2024 12:01 PM CDT) Narrative 11/23/2024 12:01 PM CDT Ordered by an unspecified provider. Scanned Document CARDIAC SERVICES ORDERABLES Fin al Result * BLOOD TYPE VERIFICATION (11/23/2024 6:02 AM CDT) Pathologist [facility] ABO Rh B POS 11/23/2024 7:0 3 AM CDT [facility] Blood Bank BLOOD SPECIMEN / Unknown Venipuncture / Unknown 11/23/2024 6:02 AM CDT 11/23/2024 6:15 AM CDT Josafat Loza MD LAB - BLOOD BANK ORDERABLES Kimmy l Result Performing Organization Address City/[facility] Co de Phone Number [facility] [address] [place] [address], [facility] [phone] * (ABNORMAL) HEMOGLOBIN A1C (11/23/2024 3:50 AM CDT) Hemoglobin A1c 6.9(H) <=5.6 % 11/23/2024 9:16 AM CDT [facility] Estimated Average Glucose 151 mg/dL 11/23/2024 9:16 AM CDT [facility] Comment: HbA1c Interpretation: Normal : < 5.7% Pre-diabetes: 5.7-6.4% Diabetes: Equal to or greater than 6.5% Test results diagnostic of diabetes should be repeated for confirmation. Treatment target values recommended by ADA and other clinical organizations should be used to evaluate metabolic control in patients. Reference: [place] [employer], Standards of Care in Diabetes [...] ORDERABLES Kimmy l Result Performing Organization Address City/[facility]/ZIP Co de Phone Number [facility] [address] [place] [address], [facility] [phone] * CULTURE BLOOD (11/22/2024 10:26 PM CDT) Only the most recent of2 resultswithin the time period is included. Culture No growth day 5 RAYRAY 11/28/2024 1:31 AM CDT [facility] MICROBIOLOGY Blood PERIPHERAL BLOOD / Unknown Venipuncture / Unknown 11/22/2024 10:26 PM CDT 11/22/2024 10:30 PM CDT us Josafat Loza MD LAB - MICROBIOLOGY ORDERABLES Fi nal Result [facility] MICROBIOLOGY [address] [place] [address], [facility] [phone] * CT Chest Pe W Abd Pelvis [...] report was drafted by Amadou Perez MD (residential child care counselor) IXander MD have personally reviewed and interpreted this examination/study. > Interpreting Provider: Xander Paiz MD on 11/22/2024 10:37 PM Narrative 11/22/2024 10:37 PM CDT PROCEDURE: CT CHEST PE W ABD PELVIS W CONT, DATE/TIME OF EXAM: 11/22/2024 6:01 PM, LOCATION [facility] INDICATION: R10.84: Generalized abdominal pain R11.2: Nausea [...] CONT, DATE/TIME OF EXAM:11/22/2024 6:01 PM, LOCATION [facility] INDICATION: R10.84: Generalized abdominal pain R11.2: Nausea [...] report was drafted by Amadou Perez MD (residential child care counselor) IXander MD have personally reviewed and interpreted this examination/study. > Interpreting Provider: Xander Paiz MD on 11/22/2024 10:37 PM Oly Alberto MD CT ORDERABLES Final Result * PTT [facility] (11/22/2024 4:40 PM CDT) APTT 34.3 23.0 - 38.4 Seconds 11/22/2024 5:17 PM CDT [facility] Comment:Suggested therapeuti c range for full dose I.V. unfractionated heparin therapy for venous thromboembolism is 71 to 109 seconds. Blood BLOOD SPECIMEN / Unknown Venipuncture / Unknown 11/22/2024 4:40 PM CDT 11/22/2024 4:52 PM CDT Result [facility] Oly Alberto MD LAB - COAGULATION ORDERABLES Fin al Result Performing Organization Address City/[facility]/ZIP Co de Phone Number [facility] [address] [place] [address], [place] [phone] * PT-INR [facility] (11/22/2024 4:40 PM CDT) PT 14.6 12.1 - 14.8 Seconds 11/22/2024 5:17 PM CDT [facility] INR 1.2 See Comment 11/22/2024 5:17 PM CDT [facility] Comment:The suggested therap eutic range for standard coumadin (warfarin) therapy is an INR of 2.0-3.0. For high-risk patients (Mechanical Mitral Valve Prosthesis, etc.), the suggested prophylactic therapeutic range is an INR of 2.5-3.5. Blood BLOOD SPECIMEN / Unknown Venipuncture / Unknown 11/22/2024 4:40 PM CDT 11/22/2024 4:52 PM CDT Oly Alberto MD LAB - COAGULATION ORDERABLES Fin al Result Performing Organization Address City/[facility]/ZIP Co de Phone Number [facility] [address] [place] [address], [place] [phone] * TYPE + SCREEN PANEL (11/22/2024 4:40 PM CDT) Antibody Screen NEG 5:33 PM CDT [facility] ABO Rh B POS 11/22/2024 5:33 PM CDT [facility] Blood Bank BLOOD SPECIMEN / Unknown Venipuncture / Unknown 11/22/2024 4:40 PM CDT 11/22/2024 4:57 PM CDT us Oly Alberto MD LAB - BLOOD BANK ORDERABLES Kimmy alexandro Result [facility] [address] [place] [address], [place] [phone] * URINE DRUG SCREEN IMMUNOASSAY (11/22/2024 3:45 PM CDT) [facility] Amphetamines Screen Urine Negative Negative: < 1000 ng/mL 11/22/2024 4:14 PM CDT [facility] Barbiturates Screen Urine Negative Negative: < 200 ng/mL 11/22/2024 4:14 PM CDT [facility] Benzodiazepine Screen Urine Negative Negative: < 200 ng/mL 11/22/2024 4:14 PM CDT [facility] Opiates Urine Negative Negative: < 300 ng/mL 11/22/2024 4:14 PM CDT [facility] Cocaine Metabolites Urine Negative Negative: < 300 ng/mL 11/22/2024 4:14 PM CDT [facility] Phencyclidine Screen Urine Negative Negative: < 25 ng/ml 11/22/2024 4:14 PM CDT [facility] Cannabinoids Screen Urine Negative Negative: <50 ng/mL 11/22/2024 4:14 PM CDT [facility] Methadone Screen Urine Negative Negative: < 300 ng/mL 11/22/2024 4:14 PM CDT [facility] Fentanyl Screen Urine Negative Negative: <1.5 ng/mL 11/22/2024 4:14 PM CDT [facility] Urine URINE / Unknown Collection / Unknown 11/22/2024 3:45 PM CDT 11/22/2024 3:49 PM CDT Narrative [facility] - 11/22/2024 4:14 PM CDT The Urine Toxicology Screening Panel does not screen for Propoxyphene, Meprobamate, Carisoprodol, Trazodone, ryri-ltf-nukoimi medications and/or volatiles (Acetone, Isopropanol, Methanol or Ethylene Glycol). Ethanol, Salicylate, Acetaminophen, Tricyclic Antidepressants and several therapeutic drugs may be individually assayed in serum or plasma specimen. Toxicology testing by the [facility] is an aid to medical diagnosis and treatment of patients. No documented chain of custody was maintained. Results are intended to be used for clinical purposes only. us Sanna Bedoya MD LAB - URINE CHEMISTRY ORDERABLE S Final Result [facility] [address] [place] [address], [facility] [phone] * (ABNORMAL) BLOOD GASES [place] + COOX PANEL (11/22/2024 12:53 PM CDT) Only the most recent of2 resultswithin the time period is included. pH Venous 7.47(H) 7.32 - 7.42 pH 11/22/2024 1:09 PM [facility] pO2 Venous 88(H) 35 - 40 mmHg 11/22/2024 1:09 PM [facility] pCO2 Venous 36(L) 40 - 50 mmHg 11/22/2024 1:09 PM [facility] HCO3 Venous 26.2 20 - 30 mmol/L 11/22/2024 1:09 PM [facility] Base Excess Venous 2.5(H) -2.0 - 2.0 mmol/L 11/22/2024 1:09 PM [facility] Oxyhemoglobin Venous 96.6 % 10/26 1:09 PM [facility] Deoxyhemoglobin (HHB) Venous % 1.5 % 11/22/2024 1:09 PM [facility] Methemoglobin <0.8 0.0 - 2.0 % 11/22/2024 1:09 PM [facility] Carboxyhemoglobin 1.3 0.0 - 2.0 % 2024 1:09 PM [facility] O2 Content Venous 13.8 Interpret within clinical context ml/dL 11/22/2024 1:09 PM [facility] Hemoglobin by COOX 10.1(L) 12.0 - 15.6 g/dL 11/22/2024 1:09 PM [facility] O2 Saturation Venous 99 >=70 % 10/26 1:09 PM CDT [facility] FI O2 Mixed Venous 95.0 % 2024 1:09 PM CDT [facility] Blood BLOOD SPECIMEN / Unknown Venipuncture / Unknown 11/22/2024 12:53 PM CDT 11/22/2024 1:06 PM CDT Narrative [facility] - 11/22/2024 1:09 PM CDT Carboxyhemoglobin Normal Concentration: Non-smokers: 0-2%; Smokers: 0-9%; Toxic: >20% us Sanna Bedoya MD LAB - BLOOD GASES ORDERABLES Fi nal Result [facility] [address] [place] [address], [facility] [phone] * XR Abdomen Kub Portable (11/22/2024 12:07 [...] DATE/TIME OF EXAM: 11/22/2024 12:07 PM, LOCATION [facility] INDICATION: R11.2: Nausea and vomiting, unspecified vomiting type ADDITIONAL CLINICAL INFORMATION: Ordering Provider Reason For Exam: Intractable nausea/vomiting Technologist Note: Additional: COMPARISON: None. FINDINGS: There is no dilatation of small or large bowel.Pneumoperitoneum cannot be excluded on this supine exam.Osseous structures are intact. Procedure Note Yordy Potter MD - 11/22/2024 PROCEDURE: XR ABDOMEN KUB PORTABLE, DATE/TIME OF EXAM: 11/22/2024 12:07 PM, LOCATION [facility] INDICATION: R11.2: Nausea and vomiting, unspecified vomiting [...] UA Yellow Yellow, Straw 11/22/2024 6:49 AM [facility] Clarity UA Turbid(A) Clear 11/22/2024 6:49 AM [facility] Glucose UA 3+(A) Normal 11/22/2024 6:49 AM [facility] Bilirubin UA Negative Negative 11/22/2024 6:49 AM [facility] Ketone UA 2+(A) Negative 11/22/2024 6:49 AM [facility] Specific [place] UA 1.013 1.005 - 1.030 11/22/2024 6:49 AM [facility] Blood UA Negative Negative 11/22/2024 6:49 AM [facility] pH UA 7.0 5.0 - 9.0 pH 11/22/2024 6:49 AM [facility] Protein UA Negative Negative 11/22/2024 6:49 AM [facility] Urobilinogen UA Normal Normal mg/dL 025 6:49 AM [facility] Nitrite UA Negative Negative 11/22/2024 6:49 AM [facility] Leukocyte UA Negative Negative 11/22/2024 6:49 AM [facility] Urine URINE SPECIMEN OBTAINED BY CLEAN CATCH PROCEDURE / Unknown Collection / Unknown 11/22/2024 6:40 AM CDT 11/22/2024 6:42 AM CDT Narrative [facility] - 11/22/2024 6:49 AM CDT us Madelaine Johnson MD LAB - URINALYSIS ORDERABLES Fi nal Result Performing Organization Address [facility]/ZIP Co de Phone Number [address] [address], [place] [phone] * (ABNORMAL) CK BLOOD (11/22/2024 4:29 AM CDT) CK Total 15(L) 30 - 200 U/L 11/22/2024 4:47 AM CDT [facility] Blood BLOOD SPECIMEN / Unknown Venipuncture / Unknown 11/22/2024 4:29 AM CDT 11/22/2024 4:29 AM CDT us Madelaine Johnson MD LAB - CHEMISTRY ORDERABLES Fin al Result Performing Organization Address [facility]/ZIP Co de Phone Number [address] [address], [place] [phone] * LACTIC ACID BLOOD REFLEX TO REPEAT (11/22/2024 2:43 AM CDT) Pathologist [facility] Lactic Acid-Stat 1.7 <=2.0 mmol/L 11/22/2024 3:12 AM CDT [facility] Blood BLOOD SPECIMEN / Unknown Venipuncture / Unknown 11/22/2024 2:43 AM CDT 11/22/2024 2:47 AM CDT us Madelaine Johnson MD LAB - CHEMISTRY ORDERABLES Fin al Result Performing Organization Address [facility]/ZIP Co de Phone Number [address] [address], [place] [phone] * LIPASE BLOOD (11/22/2024 2:43 AM CDT) Lipase 10 8 - 78 U/L 11/22/2024 3:13 AM CDT [facility] Blood BLOOD SPECIMEN / Unknown Venipuncture / Unknown 11/22/2024 2:43 AM CDT 11/22/2024 2:47 AM CDT Narrative [facility] - 11/22/2024 3:13 AM CDT Lipase results from the Barrett Alinity analyzer may not be comparable with other methodologies. Madelaine Johnson MD LAB - CHEMISTRY ORDERABLES Fin al Result [facility] [address] [place] [address], [facility] [phone] * SARS-COV-2 (COVID-19)+INFLU A+B PCR RAPID (11/22/2024 1:59 AM CDT) COVID-19 PCR Not detected Not detected 11/23/19 2:44 AM CDT [facility] Influenza A Rapid SANTOSH Not Detected Not Detected 11/22/2024 2:44 AM CDT [facility] Influenza B SANTOSH Rapid Not Detected Not Detected 11/22/2024 2:44 AM CDT [facility] Microbiology SPECIMEN FROM NASOPHARYNGEAL STRUCTURE / Unknown Collection / Unknown 11/22/2024 1:59 AM CDT 11/22/2024 2:03 AM CDT Narrative [facility] - 11/22/2024 2:44 AM CDT Influenza [...] acid amplification assay performance was validated by [facility]. This test has been authorized [...] MD LAB - MICROBIOLOGY ORDERABLES Final Result [facility] [address] [place] [address], [facility] [phone] * (ABNORMAL) CBC W AUTO DIFFERENTIAL (11/22/2024 12:41 AM CDT) WBC 6.6 4.0 - 10.7 x10E9/L 11/22/2024 12:51 AM [facility] RBC Count 5.04 3.90 - 5.20 x10E12/L 11/22/2024 12:51 AM [facility] Hemoglobin 12.4 11.9 - 15.8 g/dL 11/22/2024 12:51 AM [facility] Hematocrit 38.0 34.8 - 46.1 % 11/22/2024 12:51 AM [facility] MCV 75.4(L) 80.0 - 98.0 fL 11/22/2024 12:51 AM [facility] MCH 24.6(L) 26.7 - 33.6 pg 11/22/2024 12:51 AM [facility] MCHC 32.6 31.7 - 36.3 g/dL 11/22/2024 12:51 AM [facility] RDW-CV 14.9(H) 11.3 - 14.8 % 11/22/2024 12:51 AM [facility] Platelet Count 235 150 - 420 x10E9/L 11/22/2024 12:51 AM [facility] MPV 10.5 7.8 - 11.4 fL 11/22/2024 12:51 AM [facility] Neutrophil % 61.2 41.0 - 74.0 % 11/22/2024 12:51 AM [facility] Lymphocyte % 25.5 17.0 - 47.0 % 11/22/2024 12:51 AM [facility] Monocyte % 11.7(H) 3.0 - 11.0 % 11/22/2024 12:51 AM [facility] Eosinophil % 0.8 0.0 - 7.0 % 11/22/2024 12:51 AM [facility] Basophil % 0.5 0.0 - 1.6 % 11/22/2024 12:51 AM [facility] Immature Granulocytes % 0.3 0.0 - 1.0 % 11/22/2024 12:51 AM [facility] Neutrophil Absolute 4.03 1.60 - 7.50 x10E9/L 11/22/2024 12:51 AM [facility] Lymphocyte Absolute 1.68 1.00 - 4.40 x10E9/L 11/22/2024 12:51 AM [facility] Monocyte Absolute 0.77 0.15 - 1.00 x10E9/L 11/22/2024 12:51 AM [facility] Eosinophil Absolute 0.05 0.00 - 0.60 x10E9/L 11/22/2024 12:51 AM [facility] Basophil Absolute 0.03 0.00 - 0.13 x10E9/L 11/22/2024 12:51 AM [facility] Blood BLOOD SPECIMEN / Unknown Venipuncture / Unknown 11/22/2024 12:41 AM CDT 11/22/2024 12:46 AM CDT us Madelaine Johnson MD LAB - HEMATOLOGY ORDERABLES Fi nal Result [facility] [address] [place] [address], [facility] [phone] * (ABNORMAL) COMPREHENSIVE METABOLIC PANEL (11/22/2024 12:41 AM CDT) Pathologist [facility] BUN 8 7 - 26 mg/dL 11/22/2024 1:21 AM [facility] Creatinine 0.68 0.56 - 0.96 mg/dL 11/22/2024 1:21 AM [facility] Sodium 140 136 - 145 mmol/L 11/22/2024 1:21 AM [facility] Potassium 4.0 3.5 - 4.5 mmol/L 11/22/2024 1:21 AM [facility] Chloride 101 98 - 107 mmol/L 11/22/2024 1:21 AM [facility] CO2 21(L) 22 - 29 mmol/L 11/22/2024 1:21 AM [facility] Glucose 192(H) 70 - 99 mg/dL 11/22/2024 1:21 AM [facility] Calcium 11.7(H) 8.4 - 10.2 mg/dL 11/22/2024 1:21 AM [facility] Protein Total 7.7 6.0 - 8.3 g/dL 11/22/2024 1: AM [facility] Albumin 3.8 3.4 - 5.0 g/dL 11/22/2024 1:21 AM [facility] Bilirubin Total 1.4(H) 0.2 - 1.2 mg/dL 11/22/2024 1:21 AM [facility] Alkaline Phosphatase 65 40 - 150 U/L 11/22/2024 1:21 AM [facility] ALT 18 5 - 55 U/L 11/22/2024 1:21 AM [facility] AST 25 5 - 34 U/L 11/22/2024 1:21 AM [facility] Anion Gap 18(H) 6 - 16 11/22/2024 1:21 AM [facility] BUN/Creatinine Ratio 12 7 - 23 11/22/2024 1:21 AM [facility] Osmolality Calculated 294 275 - 295 mOsm/kg 11/22/2024 1:21 AM [facility] Albumin/Globulin Ratio 1.0(L) 1.1 - 2.3 11/22/2024 1:21 AM [facility] eGFR by CKD-EPI >90 >=90 mL/min/1.7 3 m2 11/22/2024 1:21 AM CDT [facility] Blood BLOOD SPECIMEN / Unknown Venipuncture / Unknown 11/22/2024 12:41 AM CDT 11/22/2024 12:46 AM CDT Madelaine Johnson MD LAB - CHEMISTRY ORDERABLES Fin al Result Performing Organization Address [facility]/ZIP Co de Phone Number [address] [address], [facility] [phone] * HCG BETA BLOOD QUANTITATIVE (11/22/2024 12:41 AM CDT) Beta-hCG Total Quantitative <3 mIU/mL 11/22/2024 1:33 AM CDT [facility] Comment: HCG Numeric Result Interpretation: Non- [...] ORDERABLES Fin al Result Performing Organization Address [facility] Co de Phone Number [address] [address], [facility] [phone] * HIV-1 HIV-2 ANTIBODY (11/10/2010 4:35 PM CDT) HIV-1/HIV-2 Nonreactive Nonreactive [facility] BLOOD SPECIMEN / Unknown 11/10/2010 4:35 PM CDT 11/10/2010 4:45 PM CDT Ladonna Vasques MD LAB - CHEMISTRY CRISTIANO HUFF Final Result [facility] [address] [place] [address] * HEPATITIS C ANTIBODY (11/10/2010 4:35 PM CDT) Hepatitis C Antibody Screen Nonreactive Nonreactive [facility] BLOOD SPECIMEN / Unknown 11/10/2010 4:35 PM CDT 11/10/2010 4:45 PM CDT us Ladonna Vasques MD LAB - CHEMISTRY CRISTIANO HUFF Final Result Performing Organization Address City/[facility] Co de Phone Number [facility] [address] [place] [address] * CYTOLOGY CERVICAL/VAG SCREEN THIN PREP (11/10/2010 4:30 PM CDT) Comment Thin Prep [facility] Pap Smear Report See Scanned Report [facility] ENTIRE ENDOCERVIX / Unknown 11/10/2010 4:30 PM CDT 11/10/2010 4:45 PM CDT Narrative Resulting Agency Comment Performed By [facility]() [address] [place] [phone] us Ladonna Vasques MD LAB - PATHOLOGY/CYTO LOGY ORDERABLES Final Result Performing Organization Address City/[facility] Co de Phone Number [facility] [address] [place] [address] from Last 3 Months or Most Recently Relevant to Health Maintenance Insurance [facility] SELF PAY NO INSURANCE Member Subscriber Plan / Payer (Ef fective for All Dates) Name:Tara Hinkle Member ID:Not on file Relation to Subscriber:Not on file Name:TARA HINKLE Subscriber ID:Not on file (Home) Address: [address] [place] [address] Payer ID:Not on file Group ID:Not on file Type:Self Pay Address: [place], [place] [facility] Advance Directives * Full Code (Latest [...]
--- OUTSIDE RECORDS SUMMARY | 2024-12-17 07:42 | XMS_ITS | Clinical Summary ---
Author Organization [facility] Address [address], [address] [address] Phone Care Team Providers Care Monitoring Analyst Name Role Phone Unavailable Primary Care Provider [...] Comments Blood Pressure 118/74 07/01/2017 1:18 PM FUNCTIONAL MANAGER Pulse 77 07/01/2017 1:18 PM FUNCTIONAL MANAGER Temperature 36.2 C (97.2 F) 07/11/2016 9:24 AM FUNCTIONAL MANAGER Respiratory Rate 18 07/01/2017 1:18 PM FUNCTIONAL MANAGER Oxygen Saturation 97% 07/01/2017 1:18 PM FUNCTIONAL MANAGER Inhaled Oxygen Concentration - - Weight 70.3 kg (155 lb) 07/01/2017 1:18 PM FUNCTIONAL MANAGER Height 162.6 cm (5' 4 ) 07/01/2017 1:18 PM FUNCTIONAL MANAGER Body Mass Index 26.61 07/01/2017 1:18 PM FUNCTIONAL MANAGER Plan of Treatment Health Maintenance Due [...]
--- OUTSIDE RECORDS SUMMARY | 2024-12-17 07:42 | XMS_ITS | CONTINUITY OF CARE DOCUMENT ---
Author Name prasanna mims Address Unknown Organization [facility] Address [address] [place] [address] Phone [phone] Care Team Providers Care Derrick Builder Name Role Phone Thomas Hollins MD Unavailable Thomas Hollins MD Unavailable [phone] INSURANCE PROVIDERS Payer name Policy type / Coverage type Mary red green party ID [employer] [employer] Medicaid [id number]
--- OUTSIDE RECORDS SUMMARY | 2024-12-17 07:42 | XMS_ITS | Clinical Summary ---
Author Organization [facility] Address [address] [address] Care Team Providers Care Soil Technologist Name Role Phone Janak Adams MD Primary Care Provider [phone] Social History Tobacco Use Types Packs/Day Years [...] (Season Ended) 2025 06/24/20 18, 05/11/2016 Insurance [place] Medicaid Care Teams Soil Technologist Relationship Specialty Start Date End Date Janak Adams MD [address] [place] [address] PCP - General Endocrinology 02/25/24
== END 2024-12-17 07:38 | disposition home or self-care (01) ==
PROVIDERS: PCP Family Medicine; Visit Provider Surgery
DX: K30 Functional dyspepsia (principal); R11.0 Nausea
CPT/HCPCS: 78264; A9541

== ENCOUNTER 2024-12-22 14:06 | Outpatient (CLI) | payer OTHER, SELFPAY ==
[2024-12-22 15:03] LABS: Alanine Aminotransferase 17 U/L (6-35); Albumin Level 3.9 g/dL (3.5-5.1); Alkaline Phosphatase 57 U/L (38-126); Anion Gap 8 mmol/L (4-12); Aspartate Amino Transferase 23 U/L (14-36); Blood Urea Nitrogen 17 mg/dL (7-17); Calcium 9.2 mg/dL (8.4-10.2); Carbon Dioxide 24 mmol/L (22-30); Chloride 101 mmol/L (98-107); Estimated Glomerular Filt Rate > 60; Glucose 196 mg/dL (65-110); Potassium 4.9 mmol/L (3.4-5.0); Sodium 133 mmol/L (137-145)
[2024-12-22 15:15] LABS: Free T4 Free Thyroxine 3.29 ng/dL (0.78-2.19)
--- OUTSIDE RECORDS SUMMARY | 2024-12-22 15:23 | XMS_ITS | Encounter Summary ---
Author Organization [facility] Address [facility] [place] [address] Care Team Providers Care Hardware Designer Name Role Phone Clinic, [facility] Primary Care Provider [phone] Sidney Vicente MD Primary Care Provider + [facility], [facility] Primary Care Provider Sidney Vicente MD Primary Care Provider + [facility], [facility] Primary Care Provider [phone] Sidney Vicente MD Primary Care Provider + Sharri Alonso MD Primary Care Provider [facility], [facility] Primary Care Provider [phone] [facility], [facility] Primary Care Provider [phone] Encounter Details Date Type Department Care Team (Late st Contact Info) Description 05/03/2010 Telephone [facility] [address] [place], [place] [id number] Liz Ramey MD [address] [id number] Social History Tobacco Use Types Packs/Day Years Used Date Smoking Tobacco: Every Day Cigarettes 0.5 10 Comments:interested in quitt ing Alcohol Use Standard Drinks/Week Comments No 0 (1 standard drink = 0.6 oz pur e alcohol) Comments Yes Sex and Gender Information Value Date Recorded Sex Assigned at Not on file Legal Sex Female 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 Gender Identity Not on file Sexual Orientation Not on file 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 Not on file Not on file documented as of this encounter Plan of Treatment Not on file documented as of this encounter Visit Diagnoses Not on filedocumented in this encounter Additional Health Concerns Infection Onset Date Last Indicated Resolved Time COVID-19 Under Investigation 11/22/2024 11/22/2024 11/22/2024 2:44 AM CDT documented as of this encounter Care Teams Hardware Designer Relationship Specialty Start Date End Date [facility] [address] [place] [id number] PCP - General 04/17/10 05/13/10 Sidney Vicente MD [address] [place], [place] [id number] PCP - General 05/14/10 05/15/10 [facility]/[address] [id number] PCP - General 05/16/10 05/16/10 Sidney Vicente MD [address] [place], [place] [id number] PCP - General 05/17/10 05/17/10 [facility] [address] [place] [id number] PCP - General 05/18/10 06/13/10 Sidney Vicente MD [address] [place], [place] [id number] PCP - General 06/14/10 09/21/10 Sharri Alonso MD [address] [phone] PCP - General 09/22/10 11/09/10 [facility] [address] [place] [id number] PCP - General 11/10/10 11/13/10 [facility] [address] [place] [id number] PCP - General 11/14/10 11/15/10 documented as of this encounter
--- OUTSIDE RECORDS SUMMARY | 2024-12-22 15:24 | XMS_ITS | Clinical Summary ---
Author Organization [facility] Facility Address [address] [address] Care Team Providers Care Color Card Maker Name Role Phone Janak Adams MD Primary Care Provider [phone] Social History Tobacco Use Types Packs/Day Years [...] (Season Ended) 2025 06/24/20 18, 05/11/2016 Insurance [place] Medicaid Care Teams Color Card Maker Relationship Specialty Start Date End Date Janak Adams MD [address] [place] [address] PCP - General Endocrinology 02/25/24
--- OUTSIDE RECORDS SUMMARY | 2024-12-22 15:24 | XMS_ITS | Clinical Summary ---
Author Organization [facility] [employer] Address [address] 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 This disclosure is being madepursuant to the Care Everywhere program and may not contain all information available regarding this patient. Last updated 18.[employer] Allergies No known active allergies Medications * [...] 10/06/2009 Overview (10/06/2009): 2 prior at [facility], pt wants repeat. Both LTCS. Need for mxxlwlt-vossy-kakzzku (MMR) vaccine 06/2010 Overview (01/17/2015): MMR after [...] Team Description 12/07/2024 Telephone Transitional Care at [address] [address] Prema Broussard RN Missed Appointment 12/04/2024 Telephone Transitional Care at [address] [address] Jaci Echevarria MA Reminder Call 12/02/2024 Telephone Transitional Care at [address] [address] Emily Jose, shirring tender 12/02/2024 Telephone Transitional Care at [address] [address] Emily Jose, shirring tender 12/01/2024 Telephone Transitional Care at [address] [address] Emily Jose, shirring tender 11/22/2024 12:55 AM CDT - 11/30/2024 6:03 PM CDT Hospital Encounter SL 6S ACUTE [address] [place] [address] Madelaine Johnson MD Kumar, Ashwath, MD Halani, [...] and heating? Not hard at all 11/25/2024 [facility] [place] of Occupat ional Health - Occupational Stress [...] any time in the past 12 m [facility], were you homeless or living in a penitentiary (including now)? 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 Pathologist [facility] Glucose WB/POC 233(H) 70 - 99 mg/dL 11/30/2024 4:58 PM CDT [facility] Specimen Type Cap Fingerstick 2024 4:58 PM CDT [facility] Blood BLOOD SPECIMEN / Unknown 11/30/2024 4:09 PM CDT 11/30/2024 4:58 PM CDT Constance Houser MD LAB - POINT OF CARE ORDERABLES Final Result [address] [address], [facility] [phone] * (ABNORMAL) CBC W/O DIFFERENTIAL (11/30/2024 8:35 AM CDT) Only the most recent of8 resultswithin the time period is included. [facility] WBC 4.9 4.0 - 10.7 x10E9/L 11/30/2024 9:05 AM [facility] RBC Count 3.62(L) 3.90 - 5.20 x10E12/L 11/30/2024 9:05 AM [facility] Hemoglobin 8.9(L) 11.9 - 15.8 g/dL 11/30/2024 9:05 AM [facility] Hematocrit 27.5(L) 34.8 - 46.1 % 11/30/2024 9:05 AM [facility] MCV 76.0(L) 80.0 - 98.0 fL 11/30/2024 9:05 AM [facility] MCH 24.6(L) 26.7 - 33.6 pg 11/30/2024 9:05 AM [facility] MCHC 32.4 31.7 - 36.3 g/dL 11/30/2024 9:05 AM [facility] RDW-CV 15.3(H) 11.3 - 14.8 % 11/30/2024 9:05 AM [facility] Platelet Count 291 150 - 420 x10E9/L 11/30/2024 9:05 AM [facility] MPV 10.6 7.8 - 11.4 fL 11/30/2024 9:05 AM [facility] Blood BLOOD SPECIMEN / Unknown Lab Venipuncture / Unknown 11/30/2024 8:35 AM CDT 11/30/2024 9:00 AM T us Horacio Henao MD LAB - HEMATOLOGY ORDERABLES Fin al Result [facility] [address] [place] [phone], [facility] [phone] * (ABNORMAL) RENAL FUNCTION PANEL (11/30/2024 8:35 AM T) BUN 8 7 - 26 mg/dL 11/30/2024 9:43 AM [facility] Creatinine 0.46(L) 0.56 - 0.96 mg/dL 11/30/2024 9:43 AM [facility] Sodium 133(L) 136 - 145 mmol/L 11/30/2024 9:43 AM [facility] Potassium 4.2 3.5 - 4.5 mmol/L 11/30/2024 9:43 AM [facility] Chloride 101 98 - 107 mmol/L 11/30/2024 9:43 AM [facility] CO2 20(L) 22 - 29 mmol/L 11/30/2024 9:43 AM [facility] Glucose 335(H) 70 - 99 mg/dL 11/30/2024 9:43 AM [facility] Albumin 2.8(L) 3.4 - 5.0 g/dL 11/30/2024 9:43 AM [facility] Calcium 8.8 8.4 - 10.2 mg/dL 11/30/2024 9:43 AM CDT [facility] Phosphorus 4.3 2.9 - 5.1 mg/dL 11/30/2024 9:43 AM T [facility] Anion Gap 12 6 - 16 11/30/2024 9:43 AM T [facility] BUN/Creatinine Ratio 17 7 - 23 11/30/2024 9:43 AM T [facility] Osmolality Calculated 287 275 - 295 mOsm/kg 11/30/2024 9:43 AM T [facility] eGFR by CKD-EPI >90 >=90 mL/min/1.7 3 m2 11/30/2024 9:43 AM T [facility] Blood BLOOD SPECIMEN / Unknown Lab Venipuncture / Unknown 11/30/2024 8:35 AM CDT 11/30/2024 9:09 AM CDT us Sacha Swanson MD LAB - CHEMISTRY ORDERABLES Final Result Performing Organization Address City/[facility]/ZIP Co de Phone Number [address] [address], [facility] [phone] * (ABNORMAL) MAGNESIUM BLOOD (11/30/2024 8:35 AM CDT) Only the most recent of30 resultswithin the time period is included. Pathologist [facility] Magnesium 1.4(L) 1.6 - 2.6 mg/dL 11/30/2024 9:43 AM CDT [facility] Blood BLOOD SPECIMEN / Unknown Lab Venipuncture / Unknown 11/30/2024 8:35 AM CDT 11/30/2024 9:09 AM CDT us Sacha Swanson MD LAB - CHEMISTRY ORDERABLES Final Result [address] [address], [facility] [phone] * (ABNORMAL) BASIC METABOLIC PANEL (CALCIUM TOTAL) (11/29/2024 11:35 AM CDT) Only the most recent of31 resultswithin the time period is included. BUN 6(L) 7 - 26 mg/dL 11/29/2024 12:11 PM [facility] Creatinine 0.50(L) 0.56 - 0.96 mg/dL 11/29/2024 12:11 PM [facility] Sodium 135(L) 136 - 145 mmol/L 11/29/2024 12:11 PM [facility] Potassium 4.0 3.5 - 4.5 mmol/L 11/29/2024 12:11 PM [facility] Chloride 102 98 - 107 mmol/L 11/29/2024 12:11 PM [facility] CO2 23 22 - 29 mmol/L 11/29/2024 12:11 PM [facility] Glucose 252(H) 70 - 99 mg/dL 11/29/2024 12:11 PM [facility] Calcium 8.4 8.4 - 10.2 mg/dL 11/29/2024 12:11 PM [facility] Anion Gap 10 6 - 16 11/29/2024 12:11 PM [facility] BUN/Creatinine Ratio 12 7 - 23 11/29/2024 12:11 PM [facility] Osmolality Calculated 286 275 - 295 mOsm/kg 11/29/2024 12:11 PM [facility] eGFR by CKD-EPI >90 >=90 mL/min/1.7 3 m2 11/29/2024 12:11 PM [facility] Blood BLOOD SPECIMEN / Unknown Venipuncture / Unknown 11/29/2024 11:35 AM CDT 11/29/2024 11:45 AM CDT us Horacio Henao MD LAB - CHEMISTRY ORDERABLES Kimmy l Result [facility] [address] [place] [phone], [facility] [phone] * PHOSPHORUS BLOOD (11/29/2024 11:35 AM CDT) Only the most recent of29 resultswithin the time period is included. Phosphorus 3.8 2.9 - 5.1 mg/dL 11/29/2024 12:11 PM CDT [facility] Blood BLOOD SPECIMEN / Unknown Venipuncture / Unknown 11/29/2024 11:35 AM CDT 11/29/2024 11:45 AM CDT us Horacio Henao MD LAB - CHEMISTRY ORDERABLES Kimmy l Result [place] [address] [place] [address], [facility] [phone] * US THYROID (11/28/2024 1:45 PM CDT) Anatomical Region Laterality Modality Chest Ultrasound 11/28/2024 4:35 PM CDT Impressions 11/30/2024 9:58 AM CDT IMPRESSION: Multiple subcentimeter thyroid nodules. Diffusely heterogeneous thyroid echotexture with associated hyperemia of the thyroid parenchyma, suggestive of thyroiditis. > Dictated by Sandeep Sethi MD (enrollment services vice president). Xander Valdes MD have personally reviewed and interpreted this examination/study. > Interpreting Provider: Xander Paiz MD on 11/30/2024 9:58 AM Narrative 11/30/2024 9:58 AM CDT PROCEDURE: US THYROID, DATE/TIME OF EXAM: 11/28/2024 2:27 PM, [facility] INDICATION: E05.90: Hyperthyroidism ADDITIONAL CLINICAL INFORMATION: Ordering [...] THYROID, DATE/TIME OF EXAM: 11/28/2024 2:27 PM, [facility] INDICATION: E05.90: Hyperthyroidism [...] thyroiditis. > Dictated by Sandeep Sethi MD (enrollment services vice president). I, Xander Paiz MD have personally reviewed and interpreted this examination/study. > Interpreting Provider: Xander Paiz MD on 11/30/2024 9:58 AM us Horacio Henao MD ORDERABLES Final Result * (ABNORMAL) FOLATE (11/28/2024 12:18 PM CDT) Folate 37.7(H) 7.0 - 31.4 ng/mL 11/28/2024 2:30 PM CDT [facility] Comment:Result obtained by vishal rincon. Blood BLOOD SPECIMEN / Unknown Venipuncture / Unknown 11/28/2024 12:18 PM CDT 11/28/2024 12:41 PM CDT us Sacha Swanson MD LAB - CHEMISTRY ORDERABLES Final Result [facility] [address] [place] [phone], [facility] [phone] * (ABNORMAL) VITAMIN B12 (11/28/2024 12:18 PM CDT) Vitamin B12 1,133(H) 213 - 816 pg/mL 11/28/2024 1:53 PM CDT [facility] Blood BLOOD SPECIMEN / Unknown Venipuncture / Unknown 11/28/2024 12:18 PM CDT 11/28/2024 12:41 PM CDT us Sacha Swanson MD LAB - CHEMISTRY ORDERABLES Final Result [address] [address], [place] [phone] * (ABNORMAL) IRON + TRANSFERRIN PANEL (11/28/2024 12:18 PM CDT) Iron 46 40 - 150 ug/dL 11/28/2024 1:21 PM CDT [facility] Transferrin 243 174 - 382 mg/dL 11/28/2024 1:21 PM CDT [facility] Transferrin Saturation % 15(L) 16 - 50 % 11/28/2024 1:21 PM CDT [facility] TIBC Calculated 304 240 - 450 ug/dL 11/28/2024 1:21 PM CDT [facility] Blood BLOOD SPECIMEN / Unknown Venipuncture / Unknown 11/28/2024 12:18 PM CDT 11/28/2024 12:38 PM CDT Sacha Swanson MD LAB - CHEMISTRY ORDERABLES Final Result [address] [address], [place] [phone] * FERRITIN (11/28/2024 12:18 PM CDT) Ferritin 17 13 - 204 ng/mL 11/28/2024 1:38 PM CDT [facility] Blood BLOOD SPECIMEN / Unknown Venipuncture / Unknown 11/28/2024 12:18 PM CDT 11/28/2024 12:38 PM CDT Sacha Swanson MD LAB - CHEMISTRY ORDERABLES Final Result [address] [address], [place] [phone] * ACTH 60 MINUTES (11/28/2024 9:22 AM CDT) Cortisol 60 Min 23.7 >=20.0 mcg/dL 11/28/2024 10:22 AM CDT [facility] Blood BLOOD SPECIMEN / Unknown Venipuncture / Unknown 11/28/2024 9:22 AM CDT 11/28/2024 9:38 AM CDT Horacio Henao MD LAB - CHEMISTRY ORDERABLES Kimmy l Result [facility] [address] [place] [address], [place] [phone] * (ABNORMAL) ACTH 30 MINUTES (11/28/2024 8:49 AM CDT) Cortisol 30 Min 19.8(L) >=20.0 mcg/dL 11/28/2024 10:02 AM CDT [facility] Blood BLOOD SPECIMEN / Unknown Venipuncture / Unknown 11/28/2024 8:49 AM CDT 11/28/2024 9:18 AM CDT Horacio Henao MD LAB - CHEMISTRY ORDERABLES Kimmy l Result Performing Organization Address [facility]/ZIP Co de Phone Number [facility] [address] [place] [address], [place] [phone] * ACTH CORTISOL BASELINE (11/28/2024 8:14 AM CDT) Cortisol Baseline 7.8 No Reference Range Established mcg/dL 11/28/2024 9:14 AM CDT [facility] Blood BLOOD SPECIMEN / Unknown Venipuncture / Unknown 11/28/2024 8:14 AM CDT 11/28/2024 8:28 AM CDT Horacio Henao MD LAB - CHEMISTRY ORDERABLES Kimmy l Result Performing Organization Address City/[facility]/ZIP Co de Phone Number [facility] [address] [place] [address], [place] [phone] * (ABNORMAL) THYROID PEROXIDASE ANTIBODY (11/28/2024 4:26 AM CDT) Pathologist [facility] Thyroid Peroxidase TPO Antibody 465.3(H) 0.0 - 9.0 IU/mL 11/29/2024 11:50 PM CDT [facility] ([facility]) Comment: Performed By: [employer] [address] [place] [address] Research Chief Engineer: Zana Guardado MD, PhD CLIA Number: [id number] Blood BLOOD SPECIMEN / Unknown Venipuncture / Unknown 11/28/2024 4:26 AM CDT 11/28/2024 4:37 AM CDT Horacio Henao MD LAB - CHEMISTRY ORDERABLES Kimmy l Result [facility]) [address] [place] [address] * (ABNORMAL) THYROID STIMULATING IMMUNOGLOBULIN (TSI) (11/28/2024 4:26 AM CDT) Pathologist [facility] Thyroid Stimulating Immunoglobulin TSI 5.13(H) <=0.54 IU/L 11/30/2024 10:35 PM CDT [facility] ([facility]) Comment: INTERPRETIVE INFORMATION: Thyroid Stimulating Immunoglobulin (TSI) [...] medical history, and other findings. Performed By: [facility] [address] [place] [address] Research Chief Engineer: Zana Guardado MD, PhD CLIA Number: [id number] Blood BLOOD SPECIMEN / Unknown Venipuncture / Unknown 11/28/2024 4:26 AM CDT 11/28/2024 4:37 AM CDT Horacio Henao MD LAB - CHEMISTRY ORDERABLES Kimmy l Result [facility]) [address] [place] [address] * (ABNORMAL) T3 FREE (11/28/2024 4:26 AM CDT) T3 Free 5.5(H) 1.7 - 3.7 pg/mL 11/28/2024 5:34 AM CDT [facility] Blood BLOOD SPECIMEN / Unknown Venipuncture / Unknown 11/28/2024 4:26 AM CDT 11/28/2024 4:43 AM CDT Horacio Henao MD LAB - CHEMISTRY ORDERABLES Kimmy l Result Performing Organization Address [facility] Co de Phone Number [address] [address], [facility] [phone] * (ABNORMAL) TSH RECEPTOR ANTIBODY (11/28/2024 4:26 AM CDT) Pathologist [facility] TSH Receptor Antibody 5.37(H) <=1.75 IU/L 11/30/2024 3:50 PM CDT [facility] ([facility]) Comment: Performed By: [facility] [address] [place] [address] Research Chief Engineer: Zana Guardado MD, PhD CLIA Number: [id number] Blood BLOOD SPECIMEN / Unknown Venipuncture / Unknown 11/28/2024 4:26 AM CDT 11/28/2024 4:37 AM CDT Horacio Henao MD LAB - CHEMISTRY ORDERABLES Kimmy l Result Performing Organization Address City/[facility]/ZIP Co de Phone Number [facility] [address] * (ABNORMAL) TSH (11/28/2024 4:26 AM CDT) TSH <0.010(L) 0.350 - 4.940 uIU/mL 11/28/2024 5:34 AM CDT [facility] Blood BLOOD SPECIMEN / Unknown Venipuncture / Unknown 11/28/2024 4:26 AM CDT 11/28/2024 4:43 AM CDT Horacio Henao MD LAB - CHEMISTRY ORDERABLES Kimmy l Result [address] [address], [facility] [phone] * (ABNORMAL) T4 FREE (11/28/2024 4:26 AM CDT) Only the most recent of2 resultswithin the time period is included. T4 Free 2.0(H) 0.7 - 1.5 ng/dL 11/28/2024 5:34 AM CDT [facility] Blood BLOOD SPECIMEN / Unknown Venipuncture / Unknown 11/28/2024 4:26 AM CDT 11/28/2024 4:43 AM CDT Horacio Henao MD LAB - CHEMISTRY ORDERABLES Kimmy l Result Performing Organization Address City/[facility] Co de Phone Number [address] [address], [facility] [phone] * (ABNORMAL) T4 TOTAL (11/28/2024 4:26 AM CDT) T4 Total 12.80(H) 4.50 - 11.70 ug/dL 11/30/2024 12:35 PM CDT [employer] ([facility]) Comment: Performed By: [facility] [address] [place] [address] Research Chief Engineer: Zana Guardado MD, PhD CLIA Number: [id number] Blood BLOOD SPECIMEN / Unknown Venipuncture / Unknown 11/28/2024 4:26 AM CDT 11/28/2024 4:37 AM CDT Horacio Henao MD LAB - CHEMISTRY ORDERABLES Kimmy l Result [facility]) [address] [place] [address] * (ABNORMAL) T3 TOTAL (11/28/2024 4:26 AM CDT) Pathologist [facility] T3 Total 237(H) 80 - 200 ng/dL 11/30/2024 5:27 PM CDT [facility] ([facility]) Comment: REFERENCE INTERVAL: Triiodothyronine, Total (Total T3) Access complete set of age- and/or gender-specific reference intervals for this test in the [facility] Laboratory Test Directory ([employer]). Performed By: [facility] [employer] [address] [place] [address] Research Chief Engineer: Zana Guardado MD, PhD CLIA Number: [id number] Blood BLOOD SPECIMEN / Unknown Venipuncture / Unknown 11/28/2024 4:26 AM CDT 11/28/2024 4:37 AM CDT Horacio Henao MD LAB - CHEMISTRY ORDERABLES Kimmy l Result Performing Organization Address [facility] de Phone Number [facility]) [address] [place] [address] * (ABNORMAL) CORTISOL BLOOD AM (11/28/2024 4:26 AM CDT) [facility] Cortisol AM 2.8(L) 3.7 - 19.4 ug/dL 11/28/2024 5:33 AM CDT [facility] Blood BLOOD SPECIMEN / Unknown Venipuncture / Unknown 11/28/2024 4:26 AM CDT 11/28/2024 4:43 AM CDT Narrative [facility] - 11/28/2024 5:33 AM CDT Normal cortisol levels are generally highest in the morning hours and lowest from late evening through the powerhouse mechanic apprentice hours (8 PM to 4 AM). The PM measurements of cortisol run approximately one-half to one-third of the AM values. Horacio Henao MD LAB - CHEMISTRY ORDERABLES Kimmy l Result Performing Organization Address [facility] Co de Phone Number [address] [address], [facility] [phone] * (ABNORMAL) HYDROXYBUTYRATE BETA (11/27/2024 12:08 PM CDT) Only the most recent of5 resultswithin the time period is included. Beta-Hydroxybu tyrate 1.72(H) <0.50 mmol/L 11/27/2024 12:45 PM CDT [facility] Blood BLOOD SPECIMEN / Unknown Venipuncture / Unknown 11/27/2024 12:08 PM CDT 11/27/2024 12:16 PM CDT Horacio Henao MD LAB - CHEMISTRY ORDERABLES Kimmy l Result Performing Organization Address [facility] Co de Phone Number [address] [address], [facility] [phone] * EKG 12-LEAD (11/27/2024 10:58 AM CDT) Only the most recent of4 resultswithin the time period is included. Pathologist [facility] Ventricular Rate 96 BPM SL MUSE Atrial Rate 96 BPM [facility] M[facility] P-R Interval 142 ms [facility] QRS Duration ms 70 ms [facility] Q-T Interval ms 364 ms [facility] QTC Calculation (Bezet) 459 ms [facility] Calculated P [place] 55 degrees [facility] Calculated R [place] 9 degrees [facility] Calculated T [place] 44 degrees [facility] Interpretation EKG NORMAL SINUS RHYTHM NORMAL ECG WHEN COMPARED WITH ECG OF 25-NOV-2024 08:15, Heart rate is slower with lateral injury pattern no longer present Confirmed by MARY GRACE JARQUIN DO ([id number]) on 12/06/2024 5:44:03 PM [facility] M[facility] 11/27/2024 10:5 8 AM CDT 12/06/2024 5:44 PM CDT Horacio Henao MD ECG ORDERABLES Edited Result - Final Performing Organization Address [facility] Co de Phone Number [facility] * (ABNORMAL) URINALYSIS REFLEX TO MICROSCOPIC NO CULTURE (11/27/2024 10:48 AM T) Color UA Colorless(A ) Yellow, Straw 11/27/2024 11:14 AM [facility] Clarity UA Clear Clear 11/27/2024 11:14 AM [facility] Glucose UA 4+(A) Normal 11/27/2024 11:14 AM [facility] Bilirubin UA Negative Negative 11/27/2024 11:14 AM [facility] Ketone UA 1+(A) Negative 11/27/2024 11:14 AM [facility] Specific [place] UA 1.006 1.005 - 1.030 11/27/2024 11:14 AM [facility] Blood UA 3+(A) Negative 11/27/2024 11:14 AM [facility] pH UA 5.5 5.0 - 9.0 pH 11/27/2024 11:14 AM [facility] Protein UA Negative Negative 11/27/2024 11:14 AM [facility] Urobilinogen UA Normal Normal mg/dL 11/27/2024 11:14 AM [facility] Nitrite UA Negative Negative 11/27/2024 11:14 AM [facility] Leukocyte UA Negative Negative 11/27/2024 11:14 AM [facility] RBC UA 11-20(A) 0 - 5 # /hpf 11/27/2024 11:14 AM [facility] WBC UA 0-5 0 - 5 # /hpf 11/27/2024 11:14 AM [facility] Bacteria UA Trace(A) None Seen 11/27/2024 11:14 AM [facility] Squamous Epithelial Cells 0-2 0 - 5 /hpf 11/27/2024 11:14 AM [facility] Urine URINE SPECIMEN OBTAINED BY CLEAN CATCH PROCEDURE / Unknown Collection / Unknown 11/27/2024 10:48 AM CDT 11/27/2024 10:53 AM CDT Hoarcio Henao MD LAB - URINALYSIS ORDERABLES Fin al Result [address] [address], [place] [phone] * UREA NITROGEN URINE RANDOM (11/27/2024 10:48 AM CDT) Urea Nitrogen Random Urine 78 Not Established mg/dL 11/27/2024 11:18 AM CDT [facility] Urine URINE SPECIMEN OBTAINED BY CLEAN CATCH PROCEDURE / Unknown Collection / Unknown 11/27/2024 10:48 AM CDT 11/27/2024 11:05 AM CDT Horacio Henao MD LAB - URINE CHEMISTRY ORDERABLE S Final Result Performing Organization Address [facility] Co de Phone Number [address] [address], [place] [phone] * OSMOLALITY URINE (11/27/2024 10:48 AM CDT) Osmolality Urine 258 50 - 1,200 mOsm/kg 11/27/2024 11:55 AM CDT [facility] Urine URINE SPECIMEN OBTAINED BY CLEAN CATCH PROCEDURE / Unknown Collection / Unknown 11/27/2024 10:48 AM CDT 11/27/2024 11:05 AM CDT Horacio Henao MD LAB - URINE CHEMISTRY ORDERABLE S Final Result Performing Organization Address [facility]/ZIP Co de Phone Number [address] [address], [place] [phone] * LYTES (NA K CL) URINE RANDOM PANEL (11/27/2024 10:48 AM CDT) Sodium Urine 65 Not Established mmol/L 11/27/2024 11:18 AM CDT [facility] Potassium Urine 10.6 Not Established mmol/L 11/27/2024 11:18 AM CDT [facility] Chloride Random Urine 65 Not Established mmol/L 11/27/2024 11:18 AM CDT [facility] Urine URINE SPECIMEN OBTAINED BY CLEAN CATCH PROCEDURE / Unknown Collection / Unknown 11/27/2024 10:48 AM CDT 11/27/2024 11:05 AM CDT Horacio Henao MD LAB - URINE CHEMISTRY ORDERABLE S Final Result Performing Organization Address [facility]/ZIP Co de Phone Number [address] [address], [place] [phone] * CREATININE URINE RANDOM (11/27/2024 10:48 AM CDT) Creatinine Urine 7.06 Not Established mg/dL 11/27/2024 11:18 AM CDT [facility] Urine URINE SPECIMEN OBTAINED BY CLEAN CATCH PROCEDURE / Unknown Collection / Unknown 11/27/2024 10:48 AM CDT 11/27/2024 11:05 AM CDT Horacio Henao MD LAB - URINE CHEMISTRY ORDERABLE S Final Result Performing Organization Address [facility] de Phone Number [address] [address], [place] [phone] * CT Head Wo Contrast (11/27/2024 9:41 [...] DATE/TIME OF EXAM: 11/27/2024 9:42 AM, LOCATION [facility] INDICATION: E08.10: Diabetic ketoacidosis without coma associated [...] DATE/TIME OF EXAM: 11/27/2024 9:42 AM, LOCATION [facility] INDICATION: E08.10: Diabetic ketoacidosis without coma associated [...] FREE T4 (11/27/2024 8:20 AM CDT) Pathologist [facility] TSH <0.010(L) 0.350 - 4.940 uIU/mL 11/27/2024 9:46 AM CDT [facility] Blood BLOOD SPECIMEN / Unknown Venipuncture / Unknown 11/27/2024 8:20 AM CDT 11/27/2024 8:57 AM CDT Horacio Henao MD LAB - CHEMISTRY ORDERABLES Kimmy l Result [address] [address], [facility] [phone] * TROPONIN-I HIGH SENSITIVE (11/25/2024 8:26 AM CDT) Only the most recent of2 resultswithin the time period is included. [facility] Troponin I High Sensitive <3 <=14 ng/L 11/25/2024 9:36 AM CDT [facility] Blood BLOOD SPECIMEN / Unknown Venipuncture / Unknown 11/25/2024 8:26 AM CDT 11/25/2024 8:59 AM CDT Horacio Henao MD LAB - CHEMISTRY ORDERABLES Kimmy l Result [address] [id number], [facility] [facility] [phone] * CARDIAC EKG ORDER (11/23/2024 12:01 PM CDT) Narrative 11/23/2024 12:01 PM CDT Ordered by an unspecified provider. Scanned Document CARDIAC SERVICES ORDERABLES Fin al Result * BLOOD TYPE VERIFICATION (11/23/2024 6:02 AM CDT) Pathologist [facility] ABO Rh B POS 11/23/2024 7:0 3 AM CDT [facility] Blood Bank BLOOD SPECIMEN / Unknown Venipuncture / Unknown 11/23/2024 6:02 AM CDT 11/23/2024 6:15 AM CDT Josafat Loza MD LAB - BLOOD BANK ORDERABLES Kimmy l Result Performing Organization Address City/[facility] Co de Phone Number [facility] [address] [place] [address], [facility] [phone] * (ABNORMAL) HEMOGLOBIN A1C (11/23/2024 3:50 AM CDT) Hemoglobin A1c 6.9(H) <=5.6 % 11/23/2024 9:16 AM CDT [facility] Estimated Average Glucose 151 mg/dL 11/23/2024 9:16 AM CDT [facility] Comment: HbA1c Interpretation: Normal : < 5.7% Pre-diabetes: 5.7-6.4% Diabetes: Equal to or greater than 6.5% Test results diagnostic of diabetes should be repeated for confirmation. Treatment target values recommended by ADA and other clinical organizations should be used to evaluate metabolic control in patients. Reference: [place] [employer], Standards of Care in Diabetes [...] ORDERABLES Kimmy l Result Performing Organization Address City/[facility]/ZIP Co de Phone Number [facility] [address] [place] [address], [facility] [phone] * CULTURE BLOOD (11/22/2024 10:26 PM CDT) Only the most recent of2 resultswithin the time period is included. Culture No growth day 5 RAYRAY 11/28/2024 1:31 AM CDT [facility] MICROBIOLOGY Blood PERIPHERAL BLOOD / Unknown Venipuncture / Unknown 11/22/2024 10:26 PM CDT 11/22/2024 10:30 PM CDT us Josafat Loza MD LAB - MICROBIOLOGY ORDERABLES Fi nal Result [facility] MICROBIOLOGY [address] [place] [address], [facility] [phone] * CT Chest Pe W Abd Pelvis [...] was drafted by Amadou Perez MD (residential program coordinator) IXander MD have personally reviewed and interpreted this examination/study. > Interpreting Provider: Xander Paiz MD on 11/22/2024 10:37 PM Narrative 11/22/2024 10:37 PM CDT PROCEDURE: CT CHEST PE W ABD PELVIS W CONT, DATE/TIME OF EXAM: 11/22/2024 6:01 PM, LOCATION [facility] INDICATION: R10.84: Generalized abdominal pain R11.2: Nausea [...] CONT, DATE/TIME OF EXAM:11/22/2024 6:01 PM, LOCATION [facility] INDICATION: R10.84: Generalized abdominal pain R11.2: Nausea [...] was drafted by Amadou Perez MD (residential program coordinator) IXander MD have personally reviewed and interpreted this examination/study. > Interpreting Provider: Xander Paiz MD on 11/22/2024 10:37 PM Oyl Alberto MD CT ORDERABLES Final Result * PTT [facility] (11/22/2024 4:40 PM CDT) APTT 34.3 23.0 - 38.4 Seconds 11/22/2024 5:17 PM CDT [facility] Comment:Suggested therapeuti c range for full dose I.V. unfractionated heparin therapy for venous thromboembolism is 71 to 109 seconds. Blood BLOOD SPECIMEN / Unknown Venipuncture / Unknown 11/22/2024 4:40 PM CDT 11/22/2024 4:52 PM CDT Result [facility] Oly Alberto MD LAB - COAGULATION ORDERABLES Fin al Result Performing Organization Address City/[facility]/ZIP Co de Phone Number [facility] [address] [place] [address], [place] [phone] * PT-INR [facility] (11/22/2024 4:40 PM CDT) PT 14.6 12.1 - 14.8 Seconds 11/22/2024 5:17 PM CDT [facility] INR 1.2 See Comment 11/22/2024 5:17 PM CDT [facility] Comment:The suggested therap eutic range for standard coumadin (warfarin) therapy is an INR of 2.0-3.0. For high-risk patients (Mechanical Mitral Valve Prosthesis, etc.), the suggested prophylactic therapeutic range is an INR of 2.5-3.5. Blood BLOOD SPECIMEN / Unknown Venipuncture / Unknown 11/22/2024 4:40 PM CDT 11/22/2024 4:52 PM CDT Oly Alberto MD LAB - COAGULATION ORDERABLES Fin al Result Performing Organization Address City/[facility]/ZIP Co de Phone Number [facility] [address] [place] [address], [place] [phone] * TYPE + SCREEN PANEL (11/22/2024 4:40 PM CDT) Antibody Screen NEG 5:33 PM CDT [facility] ABO Rh B POS 11/22/2024 5:33 PM CDT [facility] Blood Bank BLOOD SPECIMEN / Unknown Venipuncture / Unknown 11/22/2024 4:40 PM CDT 11/22/2024 4:57 PM CDT us Oly Alberto MD LAB - BLOOD BANK ORDERABLES Kimmy alexandro Result [facility] [address] [place] [address], [place] [phone] * URINE DRUG SCREEN IMMUNOASSAY (11/22/2024 3:45 PM CDT) [facility] Amphetamines Screen Urine Negative Negative: < 1000 ng/mL 11/22/2024 4:14 PM CDT [facility] Barbiturates Screen Urine Negative Negative: < 200 ng/mL 11/22/2024 4:14 PM CDT [facility] Benzodiazepine Screen Urine Negative Negative: < 200 ng/mL 11/22/2024 4:14 PM CDT [facility] Opiates Urine Negative Negative: < 300 ng/mL 11/22/2024 4:14 PM CDT [facility] Cocaine Metabolites Urine Negative Negative: < 300 ng/mL 11/22/2024 4:14 PM CDT [facility] Phencyclidine Screen Urine Negative Negative: < 25 ng/ml 11/22/2024 4:14 PM CDT [facility] Cannabinoids Screen Urine Negative Negative: <50 ng/mL 11/22/2024 4:14 PM CDT [facility] Methadone Screen Urine Negative Negative: < 300 ng/mL 11/22/2024 4:14 PM CDT [facility] Fentanyl Screen Urine Negative Negative: <1.5 ng/mL 11/22/2024 4:14 PM CDT [facility] Urine URINE / Unknown Collection / Unknown 11/22/2024 3:45 PM CDT 11/22/2024 3:49 PM CDT Narrative [facility] - 11/22/2024 4:14 PM CDT The Urine Toxicology Screening Panel does not screen for Propoxyphene, Meprobamate, Carisoprodol, Trazodone, bero-nkv-zsddqox medications and/or volatiles (Acetone, Isopropanol, Methanol or Ethylene Glycol). Ethanol, Salicylate, Acetaminophen, Tricyclic Antidepressants and several therapeutic drugs may be individually assayed in serum or plasma specimen. Toxicology testing by the [facility] is an aid to medical diagnosis and treatment of patients. No documented chain of custody was maintained. Results are intended to be used for clinical purposes only. us Sanna Bedoya MD LAB - URINE CHEMISTRY ORDERABLE S Final Result [facility] [address] [place] [address], [facility] [phone] * (ABNORMAL) BLOOD GASES LYNN + COOX PANEL (11/22/2024 12:53 PM CDT) Only the most recent of2 resultswithin the time period is included. pH Venous 7.47(H) 7.32 - 7.42 pH 11/22/2024 1:09 PM [facility] pO2 Venous 88(H) 35 - 40 mmHg 11/22/2024 1:09 PM [facility] pCO2 Venous 36(L) 40 - 50 mmHg 11/22/2024 1:09 PM [facility] HCO3 Venous 26.2 20 - 30 mmol/L 11/22/2024 1:09 PM [facility] Base Excess Venous 2.5(H) -2.0 - 2.0 mmol/L 11/22/2024 1:09 PM [facility] Oxyhemoglobin Venous 96.6 % 10/26 1:09 PM [facility] Deoxyhemoglobin (HHB) Venous % 1.5 % 11/22/2024 1:09 PM [facility] Methemoglobin <0.8 0.0 - 2.0 % 11/22/2024 1:09 PM [facility] Carboxyhemoglobin 1.3 0.0 - 2.0 % 2024 1:09 PM [facility] O2 Content Venous 13.8 Interpret within clinical context ml/dL 11/22/2024 1:09 PM [facility] Hemoglobin by COOX 10.1(L) 12.0 - 15.6 g/dL 11/22/2024 1:09 PM [facility] O2 Saturation Venous 99 >=70 % 10/26 1:09 PM CDT [facility] FI O2 Mixed Venous 95.0 % 2024 1:09 PM CDT [facility] Blood BLOOD SPECIMEN / Unknown Venipuncture / Unknown 11/22/2024 12:53 PM CDT 11/22/2024 1:06 PM CDT Narrative [facility] - 11/22/2024 1:09 PM CDT Carboxyhemoglobin Normal Concentration: Non-smokers: 0-2%; Smokers: 0-9%; Toxic: >20% us Sanna Bedoya MD LAB - BLOOD GASES ORDERABLES Fi nal Result [facility] [address] [place] [address], [facility] [phone] * XR Abdomen Kub Portable (11/22/2024 12:07 PM CDT) Anatomical Region Laterality Modality Abdomen Digital Radiogra phy 11/22/2024 1:08 PM CDT Impressions 11/22/2024 4:13 PM CDT IMPRESSION: Nonobstructive bowel gas pattern. Report dictated by Phill Chung MD I, Yordy Potter MD have personally reviewed and interpreted this examination/study. > Interpreting Provider: Yoryd Potter MD on 11/22/2024 4:13 PM Narrative 11/22/2024 4:13 PM CDT PROCEDURE: XR ABDOMEN KUB PORTABLE, DATE/TIME OF EXAM: 11/22/2024 12:07 PM, LOCATION [facility] INDICATION: R11.2: Nausea and vomiting, unspecified vomiting type ADDITIONAL CLINICAL INFORMATION: Ordering Provider Reason For Exam: Intractable nausea/vomiting Technologist Note: Additional: COMPARISON: None. FINDINGS: There is no dilatation of small or large bowel.Pneumoperitoneum cannot be excluded on this supine exam.Osseous structures are intact. Procedure Note Yordy Potter MD - 11/22/2024 PROCEDURE: XR ABDOMEN KUB PORTABLE, DATE/TIME OF EXAM: 11/22/2024 12:07 PM, LOCATION [facility] INDICATION: R11.2: Nausea and vomiting, unspecified vomiting [...] UA Yellow Yellow, Straw 11/22/2024 6:49 AM [facility] Clarity UA Turbid(A) Clear 11/22/2024 6:49 AM [facility] Glucose UA 3+(A) Normal 11/22/2024 6:49 AM [facility] Bilirubin UA Negative Negative 11/22/2024 6:49 AM [facility] Ketone UA 2+(A) Negative 11/22/2024 6:49 AM [facility] Specific Esparto UA 1.013 1.005 - 1.030 11/22/2024 6:49 AM [facility] Blood UA Negative Negative 11/22/2024 6:49 AM [facility] pH UA 7.0 5.0 - 9.0 pH 11/22/2024 6:49 AM [facility] Protein UA Negative Negative 11/22/2024 6:49 AM [facility] Urobilinogen UA Normal Normal mg/dL 025 6:49 AM [facility] Nitrite UA Negative Negative 11/22/2024 6:49 AM [facility] Leukocyte UA Negative Negative 11/22/2024 6:49 AM [facility] Urine URINE SPECIMEN OBTAINED BY CLEAN CATCH PROCEDURE / Unknown Collection / Unknown 11/22/2024 6:40 AM CDT 11/22/2024 6:42 AM CDT Narrative [facility] - 11/22/2024 6:49 AM CDT us Madelaine Johnson MD LAB - URINALYSIS ORDERABLES Fi nal Result Performing Organization Address [facility]/ZIP Co de Phone Number [address] [address], [place] [phone] * (ABNORMAL) CK BLOOD (11/22/2024 4:29 AM CDT) CK Total 15(L) 30 - 200 U/L 11/22/2024 4:47 AM CDT [facility] Blood BLOOD SPECIMEN / Unknown Venipuncture / Unknown 11/22/2024 4:29 AM CDT 11/22/2024 4:29 AM CDT us Madelaine Johnson MD LAB - CHEMISTRY ORDERABLES Fin al Result Performing Organization Address [facility]/ZIP Co de Phone Number [address] [address], [place] [phone] * LACTIC ACID BLOOD REFLEX TO REPEAT (11/22/2024 2:43 AM CDT) Pathologist [facility] Lactic Acid-Stat 1.7 <=2.0 mmol/L 11/22/2024 3:12 AM CDT [facility] Blood BLOOD SPECIMEN / Unknown Venipuncture / Unknown 11/22/2024 2:43 AM CDT 11/22/2024 2:47 AM CDT us Madelaine Johnson MD LAB - CHEMISTRY ORDERABLES Fin al Result Performing Organization Address [facility]/ZIP Co de Phone Number [address] [address], [place] [phone] * LIPASE BLOOD (11/22/2024 2:43 AM CDT) Lipase 10 8 - 78 U/L 11/22/2024 3:13 AM CDT [facility] Blood BLOOD SPECIMEN / Unknown Venipuncture / Unknown 11/22/2024 2:43 AM CDT 11/22/2024 2:47 AM CDT Narrative [facility] - 11/22/2024 3:13 AM CDT Lipase results from the Barrett Alinity analyzer may not be comparable with other methodologies. Madelaine Johnson MD LAB - CHEMISTRY ORDERABLES Fin al Result [facility] [address] [place] [address], [facility] [phone] * SARS-COV-2 (COVID-19)+INFLU A+B PCR RAPID (11/22/2024 1:59 AM CDT) COVID-19 PCR Not detected Not detected 11/23/19 2:44 AM CDT [facility] Influenza A Rapid SANTOSH Not Detected Not Detected 11/22/2024 2:44 AM CDT [facility] Influenza B SANTOSH Rapid Not Detected Not Detected 11/22/2024 2:44 AM CDT [facility] Microbiology SPECIMEN FROM NASOPHARYNGEAL STRUCTURE / Unknown Collection / Unknown 11/22/2024 1:59 AM CDT 11/22/2024 2:03 AM CDT Narrative [facility] - 11/22/2024 2:44 AM CDT Influenza [...] acid amplification assay performance was validated by [facility]. This test has been authorized by the [...] MD LAB - MICROBIOLOGY ORDERABLES Final Result [facility] [address] [place] [address], [facility] [phone] * (ABNORMAL) CBC W AUTO DIFFERENTIAL (11/22/2024 12:41 AM CDT) WBC 6.6 4.0 - 10.7 x10E9/L 11/22/2024 12:51 AM [facility] RBC Count 5.04 3.90 - 5.20 x10E12/L 11/22/2024 12:51 AM [facility] Hemoglobin 12.4 11.9 - 15.8 g/dL 11/22/2024 12:51 AM [facility] Hematocrit 38.0 34.8 - 46.1 % 11/22/2024 12:51 AM [facility] MCV 75.4(L) 80.0 - 98.0 fL 11/22/2024 12:51 AM [facility] MCH 24.6(L) 26.7 - 33.6 pg 11/22/2024 12:51 AM [facility] MCHC 32.6 31.7 - 36.3 g/dL 11/22/2024 12:51 AM [facility] RDW-CV 14.9(H) 11.3 - 14.8 % 11/22/2024 12:51 AM [facility] Platelet Count 235 150 - 420 x10E9/L 11/22/2024 12:51 AM [facility] MPV 10.5 7.8 - 11.4 fL 11/22/2024 12:51 AM [facility] Neutrophil % 61.2 41.0 - 74.0 % 11/22/2024 12:51 AM [facility] Lymphocyte % 25.5 17.0 - 47.0 % 11/22/2024 12:51 AM [facility] Monocyte % 11.7(H) 3.0 - 11.0 % 11/22/2024 12:51 AM [facility] Eosinophil % 0.8 0.0 - 7.0 % 11/22/2024 12:51 AM [facility] Basophil % 0.5 0.0 - 1.6 % 11/22/2024 12:51 AM [facility] Immature Granulocytes % 0.3 0.0 - 1.0 % 11/22/2024 12:51 AM [facility] Neutrophil Absolute 4.03 1.60 - 7.50 x10E9/L 11/22/2024 12:51 AM [facility] Lymphocyte Absolute 1.68 1.00 - 4.40 x10E9/L 11/22/2024 12:51 AM [facility] Monocyte Absolute 0.77 0.15 - 1.00 x10E9/L 11/22/2024 12:51 AM [facility] Eosinophil Absolute 0.05 0.00 - 0.60 x10E9/L 11/22/2024 12:51 AM [facility] Basophil Absolute 0.03 0.00 - 0.13 x10E9/L 11/22/2024 12:51 AM [facility] Blood BLOOD SPECIMEN / Unknown Venipuncture / Unknown 11/22/2024 12:41 AM CDT 11/22/2024 12:46 AM CDT us Madelaine Johnson MD LAB - HEMATOLOGY ORDERABLES Fi nal Result [facility] [address] [place] [address], [facility] [phone] * (ABNORMAL) COMPREHENSIVE METABOLIC PANEL (11/22/2024 12:41 AM CDT) Pathologist [facility] BUN 8 7 - 26 mg/dL 11/22/2024 1:21 AM [facility] Creatinine 0.68 0.56 - 0.96 mg/dL 11/22/2024 1:21 AM [facility] Sodium 140 136 - 145 mmol/L 11/22/2024 1:21 AM [facility] Potassium 4.0 3.5 - 4.5 mmol/L 11/22/2024 1:21 AM [facility] Chloride 101 98 - 107 mmol/L 11/22/2024 1:21 AM [facility] CO2 21(L) 22 - 29 mmol/L 11/22/2024 1:21 AM [facility] Glucose 192(H) 70 - 99 mg/dL 11/22/2024 1:21 AM [facility] Calcium 11.7(H) 8.4 - 10.2 mg/dL 11/22/2024 1:21 AM [facility] Protein Total 7.7 6.0 - 8.3 g/dL 11/22/2024 1: AM [facility] Albumin 3.8 3.4 - 5.0 g/dL 11/22/2024 1:21 AM [facility] Bilirubin Total 1.4(H) 0.2 - 1.2 mg/dL 11/22/2024 1:21 AM [facility] Alkaline Phosphatase 65 40 - 150 U/L 11/22/2024 1:21 AM [facility] ALT 18 5 - 55 U/L 11/22/2024 1:21 AM [facility] AST 25 5 - 34 U/L 11/22/2024 1:21 AM [facility] Anion Gap 18(H) 6 - 16 11/22/2024 1:21 AM [facility] BUN/Creatinine Ratio 12 7 - 23 11/22/2024 1:21 AM [facility] Osmolality Calculated 294 275 - 295 mOsm/kg 11/22/2024 1:21 AM [facility] Albumin/Globulin Ratio 1.0(L) 1.1 - 2.3 11/22/2024 1:21 AM [facility] eGFR by CKD-EPI >90 >=90 mL/min/1.7 3 m2 11/22/2024 1:21 AM CDT [facility] Blood BLOOD SPECIMEN / Unknown Venipuncture / Unknown 11/22/2024 12:41 AM CDT 11/22/2024 12:46 AM CDT Madelaine Johnson MD LAB - CHEMISTRY ORDERABLES Fin al Result Performing Organization Address [facility]/ZIP Co de Phone Number [address] [address], [facility] [phone] * HCG BETA BLOOD QUANTITATIVE (11/22/2024 12:41 AM CDT) Beta-hCG Total Quantitative <3 mIU/mL 11/22/2024 1:33 AM CDT [facility] Comment: HCG Numeric Result Interpretation: Non- [...] ORDERABLES Fin al Result Performing Organization Address [facility] Co de Phone Number [address] [address], [facility] [phone] * HIV-1 HIV-2 ANTIBODY (11/10/2010 4:35 PM CDT) HIV-1/HIV-2 Nonreactive Nonreactive [facility] BLOOD SPECIMEN / Unknown 11/10/2010 4:35 PM CDT 11/10/2010 4:45 PM CDT Ladonna Vasques MD LAB - CHEMISTRY CRISTIANO HUFF Final Result [facility] [address] [place] [address] * HEPATITIS C ANTIBODY (11/10/2010 4:35 PM CDT) Hepatitis C Antibody Screen Nonreactive Nonreactive [facility] BLOOD SPECIMEN / Unknown 11/10/2010 4:35 PM CDT 11/10/2010 4:45 PM CDT us Ladonna Vasques MD LAB - CHEMISTRY CRISTIANO HUFF Final Result Performing Organization Address City/State/[facility] Co de Phone Number [facility] [address] [place] [address] * CYTOLOGY CERVICAL/VAG SCREEN THIN PREP (11/10/2010 4:30 PM CDT) Comment Thin Prep [facility] Pap Smear Report See Scanned Report [facility] ENTIRE ENDOCERVIX / Unknown 11/10/2010 4:30 PM CDT 11/10/2010 4:45 PM CDT Narrative Resulting Agency Comment Performed By [facility]() [address] [place] [id number] us Ladonna Vasques MD LAB - PATHOLOGY/CYTO LOGY ORDERABLES Final Result Performing Organization Address City/[facility] Co de Phone Number [facility] [address] [place] [address] from Last 3 Months or Most Recently Relevant to Health Maintenance Insurance [facility] Advance Directives * Full Code (Latest Code [...]
--- OUTSIDE RECORDS SUMMARY | 2024-12-22 15:24 | XMS_ITS | Clinical Summary ---
Author Organization [facility] Address [address], [address] [address] Phone Care Team Providers Care Warehouse Hand Name Role Phone Unavailable Primary Care Provider [...] Comments Blood Pressure 118/74 07/01/2017 1:18 PM COLOR CONTROL OPERATOR Pulse 77 07/01/2017 1:18 PM COLOR CONTROL OPERATOR Temperature 36.2 C (97.2 F) 07/11/2016 9:24 AM COLOR CONTROL OPERATOR Respiratory Rate 18 07/01/2017 1:18 PM COLOR CONTROL OPERATOR Oxygen Saturation 97% 07/01/2017 1:18 PM COLOR CONTROL OPERATOR Inhaled Oxygen Concentration - - Weight 70.3 kg (155 lb) 07/01/2017 1:18 PM COLOR CONTROL OPERATOR Height 162.6 cm (5' 4 ) 07/01/2017 1:18 PM COLOR CONTROL OPERATOR Body Mass Index 26.61 07/01/2017 1:18 PM COLOR CONTROL OPERATOR Plan of Treatment Health Maintenance Due Date [...]
--- OUTSIDE RECORDS SUMMARY | 2024-12-22 15:24 | XMS_ITS | CONTINUITY OF CARE DOCUMENT ---
Author Name prasanna mims Address Unknown Organization [facility] Address [address] [place] [address] Phone [phone] Care Team Providers Care Euclid Operator Name Role Phone Thomas Hollins MD Unavailable Thomas Hollins MD Unavailable [phone] INSURANCE PROVIDERS Payer name Policy type / Coverage type Mary red democrat [place] [employer] Medicaid [id number]
[2024-12-22 15:29] LABS: Thyroid Stimulating Hormone < 0.015 uIU/mL (0.465-4.680); Total Triiodothyronine (T3) 2.35 NG/ML (0.97-1.69)
== END 2024-12-22 14:07 | disposition home or self-care (01) ==
LOC: ANHLAB 14:07
PROVIDERS: PCP Family Medicine; Visit Provider Internal Medicine
DX: E05.90 Thyrotoxicosis, unspecified without thyrotoxic crisis or storm (principal)
CPT/HCPCS: 36415; 80053; 84439; 84443; 84480

== ENCOUNTER 2025-01-20 15:10 | Outpatient (CLI) | payer OTHER, SELFPAY ==
--- OUTSIDE RECORDS SUMMARY | 2025-01-20 15:14 | XMS_ITS | Encounter Summary ---
Author Organization [facility] Address [facility] [place] [address] Care Team Providers Care Civil Laboratory Technician Name Role Phone Clinic, [facility] Primary Care Provider [phone] Sidney Vicente MD Primary Care Provider + [facility], [facility] Primary Care Provider [phone] Sidney Vicente MD Primary Care Provider + [facility], [facility] Primary Care Provider [phone] Sidney Vicente MD Primary Care Provider + Sharri Alonso MD Primary Care Provider [phone] [facility], [facility] Primary Care Provider [phone] [facility], [facility] Primary Care Provider [phone] Encounter Details Date Type Department Care Team (Late st Contact Info) Description 05/03/2010 Telephone [facility] [address] [place], [place] [phone] Liz Ramey MD [address] [address] Social History Tobacco Use Types Packs/Day Years Used Date Smoking Tobacco: Every Day Cigarettes 0.5 10 Comments:interested in quitt ing Alcohol Use Standard Drinks/Week Comments No 0 (1 standard drink = 0.6 oz pur e alcohol) Comments Yes Sex and Gender Information Value Date Recorded Sex Assigned at Not on file Legal Sex Female 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 AM 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 Gender Identity Not on file Sexual Orientation Not on file 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 Not on file Not on file Not on file documented as of this encounter Plan of Treatment Not on file documented as of this encounter Visit Diagnoses Not on filedocumented in this encounter Additional Health Concerns Infection Onset Date Last Indicated Resolved Time COVID-19 Under Investigation 11/22/2024 11/22/2024 11/22/2024 2:44 AM CDT documented as of this encounter Care Teams Civil Laboratory Technician Relationship Specialty Start Date End Date [facility] [address] [place] [address] PCP - General 04/17/10 05/13/10 Sidney Vicente MD [address], [address] [place], [place] [address] PCP - General 05/14/10 05/15/10 [facility] Ob/[address] [address] PCP - General 05/16/10 05/16/10 Sidney Vicente MD [address] [place], [place] [id number] PCP - General 05/17/10 05/17/10 [facility] [address] [place] [address] PCP - General 05/18/10 06/13/10 Sidney Vicente MD [address] [place], [place] [address] PCP - General 06/14/10 09/21/10 Sharri Alonso MD [address] [id number] PCP - General 09/22/10 11/09/10 [facility] [address] [place] [address] PCP - General 11/10/10 11/13/10 [facility], [facility] [address] [place] [address] PCP - General 11/14/10 11/15/10 documented as of this encounter
--- OUTSIDE RECORDS SUMMARY | 2025-01-20 15:16 | XMS_ITS | Continuity of Care Document ---
Author Organization [facility] Address [address] [place] [address] [place] [address] Phone Care Team Providers Care Health Data Analyst Name Role Phone Kris Faith MD Unavailable Unavailable Procedures Procedure Date Eye Exam & Treatment Advance Directives Directive Yes / No Effective Date File Name No Information Encounters Encounter Description Practice Location Reason(s) For Visit Diagnoses Date Provider Providers Copied on Encounter [facility], [address], [place], [place], [address], [place] tel:[phone] [address] Zeus Waters No Information [address] Marcell Ponce. [address] [facility], [place], [place], [address], [place]. tel:[phone] Family History Family Member Type Diagnosis Age At Onset No Information Payers Payer name Insurance type Covered alliance party ID Authoriza ticullen(s) [facility] CI [id number] Social History Type Description Quantity Date Captured [...]
--- OUTSIDE RECORDS SUMMARY | 2025-01-20 15:16 | XMS_ITS | Clinical Summary ---
Author Organization [facility] Address [address], [address] [address] Phone Care Team Providers Care Stock Handler Name Role Phone Unavailable Primary Care Provider [...] Comments Blood Pressure 118/74 07/01/2017 1:18 PM CONSUMER INSIGHTS SPECIALIST Pulse 77 07/01/2017 1:18 PM CONSUMER INSIGHTS SPECIALIST Temperature 36.2 C (97.2 F) 07/11/2016 9:24 AM CONSUMER INSIGHTS SPECIALIST Respiratory Rate 18 07/01/2017 1:18 PM CONSUMER INSIGHTS SPECIALIST Oxygen Saturation 97% 07/01/2017 1:18 PM CONSUMER INSIGHTS SPECIALIST Inhaled Oxygen Concentration - - Weight 70.3 kg (155 lb) 07/01/2017 1:18 PM CONSUMER INSIGHTS SPECIALIST Height 162.6 cm (5' 4) 07/01/2017 1:18 PM CONSUMER INSIGHTS SPECIALIST Body Mass Index 26.61 07/01/2017 1:18 PM CONSUMER INSIGHTS SPECIALIST Plan of Treatment Health Maintenance Due [...]
--- OUTSIDE RECORDS SUMMARY | 2025-01-20 15:16 | XMS_ITS | CONTINUITY OF CARE DOCUMENT ---
Author Name prasanna mims Address Unknown Organization [facility] Address [address] [facility] [place] [address] Phone [phone] Care Team Providers Care Correspondence Analyst Name Role Phone Thomas Hollins MD Unavailable Thomas Hollins MD Unavailable [phone] INSURANCE PROVIDERS Payer name Policy type / Coverage type Mary red green party ID [place] [employer] Medicaid [id number]
--- OUTSIDE RECORDS SUMMARY | 2025-01-20 15:16 | XMS_ITS | Clinical Summary ---
Author Organization [facility] Address [address] [address] Care Team Providers Care Cement Loader Name Role Phone Janak Adams MD Primary Care Provider [phone] Social History Tobacco Use Types Packs/Day Years [...] (Season Ended) 2025 06/24/20 18, 05/11/2016 Insurance [place] Care Teams Cement Loader Relationship Specialty Start Date End Date Janak Adams MD [address] [place] [address] PCP - General Endocrinology 02/25/24
--- OUTSIDE RECORDS SUMMARY | 2025-01-20 15:16 | XMS_ITS | Continuity of Care Document ---
Author Organization [employer] Address [address] [place] [address] Phone Care Team Providers Care Septic Tank Setter Name Role Phone Conversion MD, Doctor Unavailable [...] Diagnoses Date Provider Providers Copied on Encounter [facility], [address], [place], [place], [address], tel:[phone] Conversion Department No Information 6[address] 1 Conversion Doctor. [facility] [place], [address], [place]. [facility], [address], [place], [place], [address], tel:[phone] [facility] ACUTE URI NOS 5200 8 Conversion Doctor. [address] [place] [address], [address], . [facility], [address], [place], [place], [address], tel:[phone] [facility] CARBUNCLE OF TRUNK [address] Chuy [address]on. [address] [facility], [address], [place], [place], [address], [place]. tel:[phone] [facility], [address], [place], [place], [address], [place] tel:[phone] [facility] HAIR DISEASES NEC 4-[address], [place], [place], [address], [place]. tel:[phone] [facility], [address], [place], [place], [address], [place] tel:[phone] [facility] DMI WO CMP NT ST UNCNTRL 4-200 7 Conversion Doctor. [address] [place] [address], [address], [place]. [facility], [address], [place], [place], [address], tel:[phone] [facility] URIN TRACT INFECTION NOS 8-[address], [place], [place], [address], . tel:[phone] [facility], [address], [place], [place], [address], tel:[phone] [facility] OTALGIA NOS [address] 6 Michael Khan. [address], [address], [place], [place], [address], . tel:[phone] [facility], [address], [place], [place], [address], tel:[phone] [facility] MGRN WO AURA WO NTRC MGR Nov-2 2-[address] 5 Michael Khan. [address], [address], [place], [place], [address], . tel:[phone] [facility] [facility], [address], [place], [place], [address], tel:[phone] [facility] No Information [address], [place], [place], [address], [place]. tel:[phone] [facility], [address], [place], [place], [address], [place] tel:[phone] [facility] PREG STATE, INCIDENTAL 7200 3 [facility]. [address] [facility], [facility] [address], [place], [place], [address], . tel:[phone] [employer], [address], [place], [place], [address], [place] tel:[phone] [facility] ALLERGIC RHINITIS NOS 2 6[address] 1 Leonarda Leonard. [address], [place], [place], [address], . tel:[phone] Family History Family Member Type Diagnosis Age At Onset No Information Immunizations Vaccine Date Status Comments 67843 - TD administered Source: Source Unspecified 69621 - Influenza administered Source: So urce Unspecified 52741 - Influenza administered Source: So urce Unspecified 49089 - Influenza administered Source: So urce Unspecified 72237 - Influenza administered Source: So urce Unspecified 25428 - Hepatitis_B administered Source: Source Unspecified 51278 - Hepatitis_B administered Source: Source Unspecified 88970 - Hepatitis_B administered Source: Source Unspecified 42602 - DTaP_DTP_DT_PEDS administered Kiana rce: Source Unspecified 30723 - Polio_OPV_IPV administered Source : Source Unspecified 08493 - MMR administered Source: Source Unspecified 00520 - Polio_OPV_IPV administered Source : Source Unspecified 45302 - DTaP_DTP_DT_PEDS administered Kiana rce: Source Unspecified 17961 - Hib administered Source: Source Unspecified 35150 - DTaP_DTP_DT_PEDS administered Kiana rce: Source Unspecified 80761 - MMR administered Source: Source Unspecified 22145 - DTaP_DTP_DT_PEDS administered Kiana rce: Source Unspecified 62286 - Polio_OPV_IPV administered Source : Source Unspecified 99917 - DTaP_DTP_DT_PEDS administered Kiana rce: Source Unspecified 09845 - Polio_OPV_IPV administered Source : Source Unspecified Payers Payer name Insurance type Covered republican ID Authoriza tion(s) No Information Social History Type Description Quantity Date Captured Comments Sex Female Smoking Status No Information Sexual Orientation Straight or heterosexual Chief Complaint And Reason For Visit No [...]
--- OUTSIDE RECORDS SUMMARY | 2025-01-20 15:16 | XMS_ITS | Data Portability ---
Author Organization [facility], Main Office Address [address] [place] [address] Assessment No assessment recorded. Plan of Treatment Reminders Order Date Submit Date Provider Last Modified By Organization Details Last Modified Time Details Appointments None recorded. Lab None recorded. Referral endocrinolo gy referral 2022 023 shalonda De Leon MD, [address],, [facility], [place], [address], 3 15:20:08 nephrologis t referral 2022 023 [place], [address], [address], [place], [address], 3 12:35:35 Procedures None recorded. Surgeries None recorded. Imaging None recorded. Medication Orders Humalog U-100 Insulin 100 unit/mL subcutaneou s solution 2022 023 [facility] #[id number], [address], [place], [place], [id number], 3 14:41:39 Gvoke HypoPen 2-Pack 1 mg/0.2 mL subcutaneou s auto-inject or 2022 023 [facility] #[id number], [address], [place], [place], [id number], 3 14:42:39 gabapentin 300 mg capsule 2022 023 [facility] #[id number], [address], [place], [place], [id number], 3 14:44:52 famotidine 20 mg tablet 2022 023 [facility] #[id number], [address], [place], [place], [id number], 3 14:48:37 ondansetron 4 mg disintegrat ing tablet 2022 023 [facility] #[id number], [address], [place], [place], [id number], 3 14:49:22 Patient TargetsNo targets recorded. Patient InstructionsNo instructions recorded. 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 1 Not Available [facility] (Lab) [address] [place], [address], 05/11/2021 12:31:29 05/11/20 21 05/11/2021 COMPR EHENS CHIOMA METAB OLIC PANEL chloride 103 mmol/ L 98-107 Not Available [facility] (Lab) [address] [place], [address], 05/11/2021 12:31:29 05/11/20 21 05/11/2021 COMPR EHENS CHIOMA METAB OLIC PANEL carbon dioxide 25 mmol/ L 22-30 Not Available [facility] (Lab) [address] [place], [address], 05/11/2021 12:31:29 05/11/20 21 05/11/2021 COMPR EHENS CHIOMA METAB OLIC PANEL agap 11.7 mmol/ L 14-22 low Not Available [facility] (Lab) [address] [place], [address], 05/11/2021 12:31:29 05/11/20 21 05/11/2021 COMPR EHENS CHIOMA METAB OLIC PANEL glucose 327 mg/dL 70-99 high Not Available [facility] (Lab) [address] [place], [address], 05/11/2021 12:31:29 05/11/20 21 05/11/2021 COMPR EHENS CHIOMA METAB OLIC PANEL BUN 13 mg/dL 8-19 Not Available [facility] (Lab) [address] [place], [address], 05/11/2021 12:31:29 05/11/20 21 05/11/2021 COMPR EHENS CHIOMA METAB OLIC PANEL creatinine 0.75 mg/dL 0.66-1 .25 Not Available [facility] (Lab) [address] [place], [address], 05/11/2021 12:31:29 05/11/20 21 05/11/2021 COMPR EHENS CHIOMA METAB OLIC PANEL GFR >60 Refer ence Range : Blaine ge GFR Healt hy Adult : >60 [...] lator can be locat ed on the [facility] websi te: https :[email or web address] [email or web address].o rg/pr ofess ional s/kdo qi/gf r_cal culat or Not Available [facility] (Lab) [address] [place], [address], 05/11/2021 12:31:29 05/11/20 21 05/11/2021 COMPR EHENS CHIOMA METAB OLIC PANEL bilirubin, total 0.80 mg/dL 0.20-1 .30 Not Available [facility] (Lab) [address] [place], [address], 05/11/2021 12:31:29 05/11/20 21 05/11/2021 COMPR EHENS CHIOMA METAB OLIC PANEL sodium 135 mmol/ L 137-14 5 low Not Available [facility] (Lab) [address] [place], [address], 05/11/2021 12:31:29 05/11/20 21 05/11/2021 COMPR EHENS CHIOMA METAB OLIC PANEL alkaline phosphatase 71 U/L 38-126 Not Available [facility] (Lab) [address] [place] [place], [address], 05/11/2021 12:31:29 05/11/20 21 05/11/2021 COMPR EHENS CHIOMA METAB OLIC PANEL alanine aminotransfe rase 35 U/L 0-35 Not Available [facility] (Lab) [address] [place], [address], 05/11/2021 12:31:29 05/11/20 21 05/11/2021 COMPR EHENS CHIOMA METAB OLIC PANEL aspartate aminotransfe rase 48 U/L 15-37 high Not Available [facility] (Lab) [address] [place], [address], 05/11/2021 12:31:29 05/11/20 21 05/11/2021 COMPR EHENS CHIOMA METAB OLIC PANEL calcium 9.7 mg/dL 8.4-10 .2 Not Available [facility] (Lab) [address] [place], [address], 05/11/2021 12:31:29 05/11/20 21 05/11/2021 COMPR EHENS CHIOMA METAB OLIC PANEL total protein 7.5 g/dL 6.3-8. 2 Not Available [facility] (Lab) [address] [place], [address], 05/11/2021 12:31:29 05/11/20 21 05/11/2021 COMPR EHENS CHIOMA METAB OLIC PANEL albumin 4.4 g/dL 3.4-5. 0 Not Available [facility] (Lab) [address] [place], [address], 05/11/2021 12:31:29 05/11/20 21 05/11/2021 COMPR EHENS CHIOMA METAB OLIC PANEL globulin 3.1 g/dL 2.6-4. 2 Not Available [facility] (Lab) [address] [place], [address], 05/11/2021 12:31:29 05/11/20 21 05/11/2021 COMPR EHENS CHIOMA METAB OLIC PANEL A/G ratio 1.4 ratio 1.0-2. 0 Not Available [facility] (Lab) [address] [place] [place], [address], 05/11/2021 12:31:29 05/11/20 21 05/11/2021 MICRO ALBUM N RNDM W/CRE AT RATIO ur creat 64.98 mg/dL REFER ENCE RANGE NOT ESTAB LISHE D FOR RANDO M URINE CREAT ININE Not Available [facility] (Lab) [address] [place], [address], 05/11/2021 12:25:26 05/11/20 21 05/11/2021 MICRO ALBUM N RNDM W/CRE AT RATIO microalb <6.0 mg/L 0.0-16 .6 Not Available [facility] (Lab) [address] [place], [address], 05/11/2021 12:25:26 06/28/20 21 06/29/2021 MICRO ALBUM N RNDM W/CRE AT RATIO ur creat 156.68 mg/dL REFER ENCE RANGE NOT ESTAB LISHE D FOR RANDO M URINE CREAT ININE Not Available [facility] (Lab) [address] [place], [address], 06/29/2021 15:37:30 06/28/20 21 06/29/2021 MICRO ALBUM N RNDM W/CRE AT RATIO microalb 279.2 mg/L 0.0-16 .6 high Not Available [facility] (Lab) [address] [place], [address], 06/29/2021 15:37:30 06/28/20 21 06/29/2021 MICRO ALBUM [...] VOL. 26: S94-S , 2002 Not Available [facility] (Lab) [address] [place], [address], 06/29/2021 15:37:30 06/28/20 21 06/28/2021 HEMOG LOBIN A1C HA1C 8.5 % 4.0-6. 0 high Diabe dimple Scree brody Crite gin: <5.7% Consi stent with absen ce of diabe dimple 5.7-6 .4% Consi stent with incre ased risk for diabe dimple (pred iabet es) >OR=6 .5% Consi stent with diabe dimple REFER ENCE: Diabe dimple Care 2016, 39(Tamayo ppl.1 ):s13 -s22 Not Available [facility] (Lab) [address] [place], [address], 06/28/2021 21:31:55 06/28/20 21 06/28/2021 TSH thyroid-stim ulating hormone 1.970 uIU/m L 0.465- 4.680 Not Available [facility] (Lab) [address] [place], [address], 06/28/2021 17:02:41 06/28/20 21 06/28/2021 T4 FREE free T4 1.18 NG/dL 0.78-2 .19 Not Available [facility] (Lab) [address] [place], [address], 06/28/2021 16:51:26 06/28/20 21 06/28/2021 LIPID PANEL [...] WILL NOT BE REPOR MORGAN. Not Available [facility] (Lab) [address] [place], [address], 06/28/2021 16:40:22 06/28/20 21 06/28/2021 LIPID PANEL cholesterol 181 mg/dL 140-19 9 NIH NEAL NSUS RECOM MENDA TION FOR JAZMINE STERO L: ADULT CHILD LOW RISK: <200 <170 BORDE RLINE : <200- 239 ----- HIGH RISK: >240 >200 Not Available [facility] (Lab) [address] [place], [address], 06/28/2021 16:40:22 06/28/20 21 06/28/2021 LIPID PANEL triglyceride s 74 mg/dL 0-150 NIH NEAL NSUS REPOR T RECOM MENDA TION FOR TRIGL YCERI THOMAS: ADULT CHILD LOW RISK: <150 ----- BODER LINE: 150-1 99 ----- HIGH RISK: >200 ----- Not Available [facility] (Lab) [address] [place], [address], 06/28/2021 16:40:22 06/28/20 21 06/28/2021 LIPID PANEL HDL cholesterol 139 mg/dL 40- Not Available [facility] (Lab) [address] [place], [address], 06/28/2021 16:40:22 06/28/20 21 06/28/2021 COMPR EHENS CHIOMA METAB OLIC PANEL sodium 136 mmol/ L 137-14 5 low Not Available [facility] (Lab) [address] [place], [address], 06/28/2021 16:29:51 06/28/20 21 06/28/2021 COMPR EHENS CHIOMA METAB OLIC PANEL potassium 4.6 mmol/ L 3.5-5. 1 Not Available [facility] (Lab) [address] [place], [address], 06/28/2021 16:29:51 06/28/20 21 06/28/2021 COMPR EHENS CHIOMA METAB OLIC PANEL chloride 98 mmol/ L 98-107 Not Available [facility] (Lab) [address] [place], [address], 06/28/2021 16:29:51 06/28/20 21 06/28/2021 COMPR EHENS CHIOMA METAB OLIC PANEL carbon dioxide 29 mmol/ L 22-30 Not Available [facility] (Lab) [address] [place], [address], 06/28/2021 16:29:51 06/28/20 21 06/28/2021 COMPR EHENS CHIOMA METAB OLIC PANEL agap 13.6 mmol/ L 14-22 low Not Available [facility] (Lab) [address] [place], [address], 06/28/2021 16:29:51 06/28/20 21 06/28/2021 COMPR EHENS CHIOMA METAB OLIC PANEL glucose 194 mg/dL 70-99 high Not Available [facility] (Lab) [address] [place], [address], 06/28/2021 16:29:51 06/28/20 21 06/28/2021 COMPR EHENS CHIOMA METAB OLIC PANEL BUN 7 mg/dL 8-19 low Not Available [facility] (Lab) [address] [place], [address], 06/28/2021 16:29:51 06/28/20 21 06/28/2021 COMPR EHENS CHIOAM METAB OLIC PANEL creatinine 0.67 mg/dL 0.66-1 .25 Not Available [facility] (Lab) [address] [facility], [place], [address], 06/28/2021 16:29:51 06/28/20 21 06/28/2021 COMPR EHENS CHIOMA METAB OLIC PANEL GFR >60 Refer ence Range : Blaine ge GFR Healt hy Adult : >60 [...] or ethni c subgr oups, such as [facility] nics. Outsi de the valid ated jorge [...] s/kdo qi/gf r_cal culat or Not Available [facility] (Lab) [address] [place], [address], 06/28/2021 16:29:51 06/28/20 21 06/28/2021 COMPR EHENS CHIOMA METAB OLIC PANEL alkaline phosphatase 80 U/L 38-126 Not Available [facility] (Lab) [address] [place], [address], 06/28/2021 16:29:51 06/28/20 21 06/28/2021 COMPR EHENS CHIOMA METAB OLIC PANEL alanine aminotransfe rase 35 U/L 0-35 Not Available [facility] (Lab) [address] [place], [address], 06/28/2021 16:29:51 06/28/20 21 06/28/2021 COMPR EHENS CHIOMA METAB OLIC PANEL aspartate aminotransfe rase 81 U/L 15-37 high Not Available [facility] (Lab) [address] [place], [address], 06/28/2021 16:29:51 06/28/20 21 06/28/2021 COMPR EHENS CHIOMA METAB OLIC PANEL bilirubin, total 1.50 mg/dL 0.20-1 .30 high Not Available [facility] (Lab) [address] [place], [address], 06/28/2021 16:29:51 06/28/20 21 06/28/2021 COMPR EHENS CHIOMA METAB OLIC PANEL calcium 9.6 mg/dL 8.4-10 .2 Not Available [facility] (Lab) [address] [place], [address], 06/28/2021 16:29:51 06/28/20 21 06/28/2021 COMPR EHENS CHIOMA METAB OLIC PANEL total protein 7.9 g/dL 6.3-8. 2 Not Available [facility] (Lab) [address] [place], [address], 06/28/2021 16:29:51 06/28/20 21 06/28/2021 COMPR EHENS CHIOMA METAB OLIC PANEL albumin 4.4 g/dL 3.4-5. 0 Not Available [facility] (Lab) [address] [place], [address], 06/28/2021 16:29:51 06/28/20 21 06/28/2021 COMPR EHENS CHIOMA METAB OLIC PANEL globulin 3.5 g/dL 2.6-4. 2 Not Available [facility] (Lab) [address] [place], [address], 06/28/2021 16:29:51 06/28/20 21 06/28/2021 COMPR EHENS CHIOMA METAB OLIC PANEL A/G ratio 1.3 ratio 1.0-2. 0 Not Available [facility] (Lab) [address] [place], [address], 06/28/2021 16:29:51 10/26/19 22 10/25/2021 HEMOG LOBIN A1C HA1C 8.0 % 4.0-6. 0 high Diabe dimple Scree brody Crite gin: <5.7% Consi stent with absen ce of diabe dimple 5.7-6 .4% Consi stent with incre ased risk for diabe dimple (pred iabet es) >OR=6 .5% Consi stent with diabe dimple REFER ENCE: Diabe dimple Care 2016, 39(Tamayo ppl.1 ):s13 -s22 Not Available [facility] (Lab) [address] [place], [address], 10/25/2021 19:02:25 10/26/19 22 10/25/2021 MICRO ALBUM N RNDM W/CRE AT RATIO ur creat 163.70 mg/dL REFER ENCE RANGE NOT ESTAB LISHE D FOR RANDO M URINE CREAT ININE Not Available [facility] (Lab) [address] [place], [address], 10/25/2021 18:50:35 10/26/19 22 10/25/2021 MICRO ALBUM N RNDM W/CRE AT RATIO microalb 32.2 mg/L 0.0-16 .6 high Not Available [facility] (Lab) [address] [place], [address], 10/25/2021 18:50:35 10/26/19 22 10/25/2021 MICRO ALBUM [...] VOL. 26: S94-S 96, 2002 Not Available [facility] (Lab) [address] [place], [address], 10/25/2021 18:50:35 10/26/19 22 10/25/2021 COMPR EHENS CHIOMA METAB OLIC PANEL carbon dioxide 27 mmol/ L 22-30 Not Available [facility] (Lab) [address] [place], [address], 10/25/2021 18:25:29 10/26/19 22 10/25/2021 COMPR EHENS CHIOMA METAB OLIC PANEL sodium 130 mmol/ L 137-14 5 low Not Available [facility] (Lab) [address] [place], [address], 10/25/2021 18:25:29 10/26/19 22 10/25/2021 COMPR EHENS CHIOMA METAB OLIC PANEL potassium 4.6 mmol/ L 3.5-5. 1 Not Available [facility] (Lab) [address] [place], [address], 10/25/2021 18:25:29 10/26/19 22 10/25/2021 COMPR EHENS CHIOMA METAB OLIC PANEL chloride 96 mmol/ L 98-107 low Not Available [facility] (Lab) [address] [place], [address], 10/25/2021 18:25:29 10/26/19 22 10/25/2021 COMPR EHENS CHIOMA METAB OLIC PANEL agap 11.6 mmol/ L 14-22 low Not Available [facility] (Lab) [address] [place], [address], 10/25/2021 18:25:29 10/26/19 22 10/25/2021 COMPR EHENS CHIOMA METAB OLIC PANEL glucose 298 mg/dL 70-99 high Not Available [facility] (Lab) [address] [place], [address], 10/25/2021 18:25:29 10/26/19 22 10/25/2021 COMPR EHENS CHIOMA METAB OLIC PANEL BUN 18 mg/dL 8-19 Not Available [facility] (Lab) [address] [place], [address], 10/25/2021 18:25:29 10/26/19 22 10/25/2021 COMPR EHENS CHIOMA METAB OLIC PANEL creatinine 0.58 mg/dL 0.66-1 .25 low Not Available [facility] (Lab) [address] [place], [address], 10/25/2021 18:25:29 10/26/19 22 10/25/2021 COMPR EHENS CHIOMA METAB OLIC PANEL GFR >60 Refer ence Range : Blaine ge GFR Healt hy Adult : >60 [...] calcu lator is avail able on the [facility] websi te: https :[email or web address] [email or web address].sree [email or web address] christa/pr francisca peguero s/justao qi/gf r_cal culat or Not Available [facility] (Lab) [address] [place], [address], 10/25/2021 18:25:29 10/26/19 22 10/25/2021 COMPR EHENS CHIOMA METAB OLIC PANEL alkaline phosphatase 78 U/L 38-126 Not Available [facility] (Lab) [address] [place], [address], 10/25/2021 18:25:29 10/26/19 22 10/25/2021 COMPR EHENS CHIOMA METAB OLIC PANEL alanine aminotransfe rase 15 U/L 0-35 Not Available [facility] (Lab) [address] [place], [address], 10/25/2021 18:25:29 10/26/19 22 10/25/2021 COMPR EHENS CHIOMA METAB OLIC PANEL aspartate aminotransfe rase 23 U/L 15-37 Not Available [facility] (Lab) [address] [place], [address], 10/25/2021 18:25:29 10/26/19 22 10/25/2021 COMPR EHENS CHIOMA METAB OLIC PANEL bilirubin, total 1.10 mg/dL 0.20-1 .30 Not Available [facility] (Lab) [address] [place], [address], 10/25/2021 18:25:29 10/26/19 22 10/25/2021 COMPR EHENS CHIOMA METAB OLIC PANEL calcium 9.3 mg/dL 8.4-10 .2 Not Available [facility] (Lab) [address] [place], [address], 10/25/2021 18:25:29 10/26/19 22 10/25/2021 COMPR EHENS CHIOMA METAB OLIC PANEL total protein 7.2 g/dL 6.3-8. 2 Not Available [facility] (Lab) [address] [place], [address], 10/25/2021 18:25:29 10/26/19 22 10/25/2021 COMPR EHENS CHIOMA METAB OLIC PANEL albumin 4.1 g/dL 3.4-5. 0 Not Available [facility] (Lab) [address] [place], [address], 10/25/2021 18:25:29 10/26/19 22 10/25/2021 COMPR EHENS CHIOMA METAB OLIC PANEL globulin 3.1 g/dL 2.6-4. 2 Not Available [facility] (Lab) [address] [place], [address], 10/25/2021 18:25:29 10/26/19 22 10/25/2021 COMPR EHENS CHIOMA METAB OLIC PANEL A/G ratio 1.3 ratio 1.0-2. 0 Not Available [facility] (Lab) [address] [place], [address], 10/25/2021 18:25:29 01/12/20 23 01/11/2023 MICRO ALBUM N RNDM W/CRE AT RATIO ur creat 271.14 mg/dL REFER ENCE RANGE NOT ESTAB LISHE D FOR RANDO M URINE CREAT ININE Not Available [facility] (Lab) [address] [place], [address], 01/11/2023 16:33:17 01/12/20 23 01/11/2023 MICRO ALBUM N RNDM W/CRE AT RATIO microalbumin , urine >1140. 0 mg/L 0.0-16 .6 high Not Available [facility] (Lab) [address] [place], [address], 01/11/2023 16:33:17 01/12/20 23 01/11/2023 LIPID PANEL cholesterol 186 mg/dL 140-19 9 NIH NEAL NSUS RECOM MENDA TION FOR JAZMINE STERO L: ADULT CHILD LOW RISK: <200 <170 BORDE RLINE : <200- 239 ----- HIGH RISK: >240 >200 Not Available [facility] (Lab) [address] [place], [address], 01/11/2023 16:14:07 01/12/20 23 01/11/2023 LIPID PANEL triglyceride s 81 mg/dL 0-150 NIH NEAL NSUS REPOR T RECOM MENDA TION FOR TRIGL YCERI THOMAS: ADULT CHILD LOW RISK: <150 ----- BODER LINE: 150-1 99 ----- HIGH RISK: >200 ----- Not Available [facility] (Lab) [address] [place], [address], 01/11/2023 16:14:07 01/12/20 23 01/11/2023 LIPID PANEL HDL cholesterol 109 mg/dL 40- Not Available [facility] (Lab) [address] [place] [place], [address], 01/11/2023 16:14:07 01/12/20 23 01/11/2023 LIPID PANEL [...] WILL NOT BE REPOR MORGAN. Not Available [facility] (Lab) [address] [place], [address], 01/11/2023 16:14:07 01/12/20 23 01/11/2023 COMPR EHENS CHIOMA METAB OLIC PANEL sodium 136 mmol/ L 137-14 5 low Not Available [facility] (Lab) [address] [place], [address], 01/11/2023 16:14:14 01/12/20 23 01/11/2023 COMPR EHENS CHIOMA METAB OLIC PANEL potassium 4.3 mmol/ L 3.5-5. 1 Not Available [facility] (Lab) [address] [place], [address], 01/11/2023 16:14:14 01/12/20 23 01/11/2023 COMPR EHENS CHIOMA METAB OLIC PANEL chloride 102 mmol/ L 98-107 Not Available [facility] (Lab) [address] [place], [address], 01/11/2023 16:14:14 01/12/20 23 01/11/2023 COMPR EHENS CHIOMA METAB OLIC PANEL carbon dioxide 28 mmol/ L 22-30 Not Available [facility] (Lab) [address] [place], [address], 01/11/2023 16:14:14 01/12/20 23 01/11/2023 COMPR EHENS CHIOMA METAB OLIC PANEL anion gap 10.3 mmol/ L 14-22 low Not Available [facility] (Lab) [address] [place], [address], 01/11/2023 16:14:14 01/12/20 23 01/11/2023 COMPR EHENS CHIOMA METAB OLIC PANEL glucose 181 mg/dL 70-99 high Not Available [facility] (Lab) [address] [place], [address], 01/11/2023 16:14:14 01/12/20 23 01/11/2023 COMPR EHENS CHIOMA METAB OLIC PANEL BUN 11 mg/dL 8-19 Not Available [facility] (Lab) [address] [place], [address], 01/11/2023 16:14:14 01/12/20 23 01/11/2023 COMPR EHENS CHIOMA METAB OLIC PANEL creatinine 0.58 mg/dL 0.66-1 .25 low Not Available [facility] (Lab) [address] [place], [address], 01/11/2023 16:14:14 01/12/20 23 01/11/2023 COMPR EHENS CHIOMA METAB OLIC PANEL GFR >60 Refer ence Range : Blaine ge GFR Healt hy Adult : >60 [...] calcu lator is avail able on the [facility] websi te: https :[email or web address] w.kid eli.o rg/pr ofess ional s/kdo qi/gf r_cal culat or Not Available [facility] (Lab) [address] [place], [address], 01/11/2023 16:14:14 01/12/20 23 01/11/2023 COMPR EHENS CHIOMA METAB OLIC PANEL alkaline phosphatase 92 U/L 38-126 Not Available [facility] (Lab) [address] [place], [address], 01/11/2023 16:14:14 01/12/20 23 01/11/2023 COMPR EHENS CHIOMA METAB OLIC PANEL alanine aminotransfe rase 28 U/L 0-35 Not Available [facility] (Lab) [address] [place], [address], 01/11/2023 16:14:14 01/12/20 23 01/11/2023 COMPR EHENS CHIOMA METAB OLIC PANEL aspartate aminotransfe rase 46 U/L 15-37 high Not Available [facility] (Lab) [address] [place], [address], 01/11/2023 16:14:14 01/12/20 23 01/11/2023 COMPR EHENS CHIOMA METAB OLIC PANEL bilirubin, total 0.50 mg/dL 0.20-1 .30 Not Available [facility] (Lab) [address] [place], [address], 01/11/2023 16:14:14 01/12/20 23 01/11/2023 COMPR EHENS CHIOMA METAB OLIC PANEL calcium 8.7 mg/dL 8.4-10 .2 Not Available [facility] (Lab) [address] [place], [address], 01/11/2023 16:14:14 01/12/20 23 01/11/2023 COMPR EHENS CHIOMA METAB OLIC PANEL total protein 7.0 g/dL 6.3-8. 2 Not Available [facility] (Lab) [address] [place], [address], 01/11/2023 16:14:14 01/12/20 23 01/11/2023 COMPR EHENS CHIOMA METAB OLIC PANEL albumin 3.7 g/dL 3.4-5. 0 Not Available [facility] (Lab) [address] [place], [address], 01/11/2023 16:14:14 01/12/20 23 01/11/2023 COMPR EHENS CHIOMA METAB OLIC PANEL globulin 3.3 g/dL 2.6-4. 2 Not Available [facility] (Lab) [address] [place], [address], 01/11/2023 16:14:14 01/12/20 23 01/11/2023 COMPR EHENS CHIOMA METAB OLIC PANEL A/G ratio 1.1 ratio 1.0-2. 0 Not Available [facility] (Lab) [address] [place], [address], 01/11/2023 16:14:14 01/12/20 23 01/11/2023 T4 FREE free T4 1.17 NG/dL 0.78-2 .19 Not Available [facility] (Lab) [address] [place], [address], 01/11/2023 16:33:28 05/01/11/2023 TSH thyroid-stim ulating hormone 2.230 uIU/m L 0.465- 4.680 Not Available [facility] (Lab) [address] [place], [address], 01/11/2023 16:44:12 01/12/2001/11/2023 HEMOG LOBIN A1C HA1C 8.9 % 4.0-6. 0 high Diabe dimple Scree brody Crite gin: <5.7% Consi stent with absen ce of diabe dimple 5.7-6 .4% Consi stent with incre ased risk for diabe dimple (pred iabet es) >OR=6 .5% Consi stent with diabe dimple REFER ENCE: Diabe dimple Care 2016, 39(Tamayo ppl.1 ):s13 -s22 Not Available [facility] (Lab) [address] [place], [address], 01/11/2023 20:44:58 03/28/2003/28/2023 XR, chest No observ ation record ed. [id number] [facility] [address] [place], [address], 04/01/2023 08:54:36 Result Notes None recorded. Problems Name Problem SNOMED Code Status Onset Date Resolution Date Notes Provider Name and Address Organization Details Recorded Time Burn of foot 90761035 Active 2020 Not Available [facility] 3 11:22:34 Harmful pattern of use of alcohol 27874889 Active Not Available [facility] 3 11:22:34 Gonococcal cervicitis 476735798 Completed Not Available [facility] 3 02:55:23 Chlamydial cervicitis 789462066 Completed Not Available [facility] 3 02:55:23 Vaginal discharge 488084553 Active Not Available [facility] 3 11:22:34 Low back pain 638716565 Active 2018 Not Available [facility] 3 11:22:34 Pain in pelvis 61594061 Active Not Available [facility] 3 11:22:34 Bacterial vaginosis 142948420 Active Not Available [facility] 3 11:22:34 Nausea 547883904 Active 2021 Not Available [facility] 3 11:22:34 Diabetic peripheral neuropathy 094713498 Active 2021 Not Available [facility] 3 11:22:34 Uncontroll ed type 1 diabetes mellitus 313578592 Active 2021 Not Available [facility] 3 11:22:34 Diabetes mellitus 15594604 Active 2020 Not Available [facility] 3 11:22:34 Cyst of ovary 63538505 Active Not Available [facility] 3 11:22:34 Irregular periods 27862106 Active Not Available [facility] 3 11:22:34 Hyperglyce ivan 81741559 Active Not Available [facility] 3 11:22:34 Proteinuri a 76414600 Active 2022 Randee Kilpatrick MD [address] [address], [place], [address] , [employer] 3 14:44:54 Gastroesop hageal reflux disease without esophagiti s 626767567 Active 2022 Randee Kilpatrick MD [address] [facility] [address], [place], [address] , [employer] 3 14:47:59 Problem Notes None recorded. Procedures Surgical History Date Name Laterality Status Provider Name and Address Organization Details Recorded Time 0 SENIOR BIOSTATISTICIAN/GROUP LEADER Procedure completed Not Available [facility] 2022 02:48:31 0 SENIOR BIOSTATISTICIAN/GROUP LEADER Procedure completed Not Available [facility] 2022 02:48:31 8 Date of Last Pap Smear completed Not Available [facility] 10/24/2022 02:48:28 7 SENIOR BIOSTATISTICIAN/GROUP LEADER Procedure completed Not Available [facility] 2022 02:48:31 delivery completed Not Available [facility] 10/24/2022 02:48:31 Imaging Results None recorded. Procedure Notes None recorded. Medical Equipment None [...] Not Available No t Available Dexcom G6 Keyliner USE DIRECTED active Not Available Not Available [...] Available Not Available Vitals Date Recorded Body mass index (BMI) Body height Oxygen saturation Oxygen saturation in Arterial blood by Pulse oximetry Heart rate Body temperature Body weight Systolic blood pressure Diastolic blood pressure Provider Name and Address Organization Details Last Updated DateTime 2 25.1 kg/m2 162.56 cm 99 % 99 % 88 /min 97.7 [degF] 78728.4 9 g 116 mm[Hg] 82 mm[Hg] Not Available [facility] 3 02:52:06 Date Recorded Body mass index (BMI) Body height Oxygen saturation Oxygen saturation in Arterial blood by Pulse oximetry Heart rate Body temperature Body weight Systolic blood pressure Diastolic blood pressure Provider Name and Address Organization Details Last Updated DateTime 2 26.3 kg/m2 162.56 cm 100 % 100 % 84 /min 97.8 [degF] 37219.6 3 g 110 mm[Hg] 70 mm[Hg] Not Available [facility] 3 02:52:06 Date Recorded Body weight Body mass index (BMI) Body height Respiratory rate Body temperature Heart rate Systolic blood pressure Diastolic blood pressure Provider Name and Address Organization Details Last Updated DateTime 3 34980.2 7 g 29.1 kg/m2 162.56 cm 12 /min 98.1 [degF] 76 /min 127 mm[Hg] 81 mm[Hg] Meg Richard RN [place] [facility] 3 14:11:14 Date Recorded Body mass index (BMI) Body height Oxygen saturation Oxygen saturation in Arterial blood by Pulse oximetry Heart rate Respiratory rate Body weight Systolic blood pressure Diastolic blood pressure Provider Name and Address Organization Details Last Updated DateTime 1 25.6 kg/m2 162.56 cm 99 % 99 % 88 /min 18 /min 73687.2 6 g 122 mm[Hg] 80 mm[Hg] Not Available [facility] 3 02:52:06 Date Recorded Body mass index (BMI) Body height Oxygen saturation Oxygen saturation in Arterial blood by Pulse oximetry Heart rate Body temperature Body weight Systolic blood pressure Diastolic blood pressure Provider Name and Address Organization Details Last Updated DateTime 1 26.1 kg/m2 162.56 cm 99 % 99 % 82 /min 98 [degF] 57592.0 4 g 116 mm[Hg] 74 mm[Hg] Not Available [facility] 3 02:52:06 Social History Question Answer Notes LastModified by [employer] Details LastModified Time Tobacco Smoking Status Current Every Day Smoker Not Available [facility] 10/24/2022 02:43:10 What Is Your Level Of Caffeine Consumption? Heavy [id number] Information not available 10/24/2022 How Much Tobacco Do You Chew? None [id number] Information not available 10/24/2022 In The 14 Days Before Symptom Onset, Have You Had Close Contact With A Laboratory-confirm ed COVID-19 While That Case Was Ill? No [id number] Information not available 10/24/2022 In The 14 Days Before Symptom Onset, Have You Had Close Contact With A Person Who Is Under Investigation For COVID-19 While That Person Was Ill? No [id number].[id number] Information not available 10/24/2022 What Type Of Diet Are You Following? REGULAR [id number].[id number] Information not available 10/24/2022 Which Illicit Or Recreational Drugs Have You Used? None MIGRATION.[id number] Information not available 10/24/2022 What Is Your Relationship Status? Domestic Partner MIGRATION.[id number] Information not available 10/24/2022 How Much Tobacco Do You Smoke? 1 PPD MIGRATION.[id number] 1098 Information not available 10/24/2022 Have You Recently Traveled Abroad? No [id number] 1066 Information not available 10/24/2022 Do You Have Any Dietary Restrictions? No [id number].737326 7930 Information not available 10/24/2022 Sex: Female Functional Status Question Answer Note LastModified by [employer] Details LastModified Time Do you use any illicit or recreational drugs? No MIGRATION.[id number] 5148 Information not available 10/24/2022 What is your level of alcohol consumption? Occasional MIGRATION.[id number] 7700 Information not available 10/24/2022 Do you or have you ever used smokeless tobacco? 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 Never used electronic cigarettes MIGRATION.[id number] 8903 Information not available 10/24/2022 Mental Status None recorded. Family History Relationship Description Onset Age of this Age Resolved Age Notes LastModified by Organization Details LastModified Time Father Diabetes mellitus [id number] Not available 10/24/2022 02:48:34 Paternal Grandmother Malignant tumor of breast [id number].[id number] Not available 10/24/2022 02:48:34 Medical History Condition [...] virus, quadrivalent, PF 06/24/2018 completed Not Available [facility] 09:09:38 Past Encounters Encounter ID Performer Location Encounter Start Date Encounter Closed Date Diagnosis/Indication Diagnosis SNOMED-CT Code Diagnosis ICD10 Code Diagnosis Note [id number] [facility] _GRAHAM_M IGRATION_ DEFAULT_1 _1 , 01/12/2021 00:00:00 01/16/2021 21:13:51 [id number] Randee Kilpatrick MD _GRAHAM_Hernandez IGRATION_ DEFAULT_1 _1 , 04/06/2021 00:00:00 04/06/2021 18:21:27 [id number] MD LESTER [facility] [address] [place] [address] 05/16/2021 00:00:00 05/16/2021 16:30:44 [id number] [facility] [address] [place] [address] 05/17/2021 00:00:00 05/17/2021 13:41:42 [id number] [facility] [address] [place] [address] 05/31/2021 00:00:00 05/31/2021 15:23:51 [id number] Bry Arnett DPM [facility] [address] [place] [address] 06/07/2021 00:00:00 06/07/2021 16:59:02 [id number] Randee Kilpatrick MD _ATHENA_M IGRATION_ DEFAULT_1 _1 , 06/29/2021 00:00:00 06/29/2021 16:26:41 [id number] [facility] _ATHENA_M IGRATION_ DEFAULT_1 _1 , 10/26/2021 00:00:00 10/26/2021 18:19:39 [id number] [facility] _ATHENA_M IGRATION_ DEFAULT_1 _1 , 02/01/2022 00:00:00 02/15/2022 12:52:22 [id number] Randee Kilpatrick MD [facility] [address] [place] [address] 03/26/2023 13:59:58 03/26/2023 15:20:08 Uncontrolled type 1 diabetes mellitus 642732700 E10.65 A1C of 8.9% from December- patient [...] for further care. Diabetic p eripheral neuropathy 404958148 E11.40 Refill gabapentin for neuropathy as she is able to sleep when taking her once daily dosing. Proteinuria 66036154 R80 .9 Refer to nephrology for significan t proteinuri a. Gastroesop hageal reflux disease without esophagitis 844496621 K21.9 Trial on famotidine - she has [...] Sosa Member ID Guarantor Name 03/26/2023 1 [facility] (MEDICAID HMO) [id number] Tara Hinkle [id number] Tara Hinkle Notes Date Note Type Note [...] 1.17 ng/dLmicroalbumin >1140 ug/mgglucose 181 mg/dlCr normalALT wtjfik798/81/109/6 1 Randee Kilpatrick MD [address] [facility] [facility] [address], [place], [address], [place] [facility] 03/26/2023 14:54:34 OBGyn Episode No OBEpisode recorded.
--- OUTSIDE RECORDS SUMMARY | 2025-01-20 15:16 | XMS_ITS | Clinical Summary ---
Author Organization [facility] [employer] Address [address] [place] [address] Care Team Providers Care Brake Specialist Name Role Phone Unavailable Primary Care Provider Unavailabl e Source Comments [facility] [employer],non-owned Affiliates and Associated Physician Practices is amultiple site organization consisting of ambulatory clinics and hospital sitesin [place], [place], [place] and [place]. This disclosure is being madepursuant to the Care Everywhere program and may not contain all information available regarding this patient. Last updated 18.Ion Core Allergies No known active allergies Medications * Be aware that medications may not be up to date on this document. Alwaysverify current medications with the patient. glucose blood (ONETOUCH ULTRA TEST STRIPS) strip Use 1 Strip 8 times daily. For glucose monitoring. 250 6 09/29/19 10 Active OneTouch FinePoint Lancets MISC Use 8 Sticks daily. For glucose monitoring. 100 11 09/29/19 10 Active glucagon (GLUCAGON EMERGENCY) injection Inject 1 mg subcutaneously as needed 1 2 09/29/19 10 Active acetone(urine) (KETOSTIX) strip Use daily. For testing. 30 6 09/29/19 10 Active buPROPion SR 12hr (WELLBUTRIN-SR ) 100 MG tablet Take 1 Tab by mouth daily. 30 5 02/25/20 10 Active acetaminophen (TYLENOL) 500 MG tablet Take 1 (one) tablet by mouth every 4 hours as needed Maximum allowable Acetaminophen amount = 4 Grams / 24 hours. Active zolpidem (AMBIEN) 5 MG tablet Take 1 Tab by mouth nightly as needed for Insomnia (May take 1 more tab ). 20 Tab 0 04/27/20 10 Active ibuprofen (MOTRIN) 600 MG tablet Take 1 Tab by mouth every 6 hours as needed for Pain. 60 Tab 2 05/16/20 10 Active docusate sodium (COLACE) 100 MG capsule Take 1 Cap by mouth 2 times daily as needed for Constipation. 60 Cap 2 05/16/20 10 Active w/o Vit A; w/ Fe Fum-FA (-U) 106-1 MG capsule Take 1 Cap by mouth daily. 90 Cap 2 05/16/20 10 Active imiquimod (ALDARA) 5 % cream Apply to affected area Two times a week. 24 Each 1 07/10/20 10 Active escitalopram (LEXAPRO) 20 MG tablet Take 1 Tab by mouth daily. 30 Tab 1 09/22/19 11 Active methIMAzole (Tapazole) 5 MG tablet Take 1 (one) tablet by mouth once daily 30 tablet 2 5 1:52 PM CDT 12/02/19 25 Active pantoprazole EC (Protonix) 40 MG tabletIndicati ons:Gastroesop hageal Reflux Disease Take 1 (one) tablet by mouth once daily Reasons: Gastroesophageal Reflux Disease 30 tablet 2 12/01/19 25 Active gabapentin (Neurontin) 300 MG capsuleIndicat ions:Diabetic Neuropathy Take 1 (one) capsule by mouth at bedtime Reasons: Diabetes with Nerve Disease 12/01/19 25 Active atenolol (Tenormin) 25 MG tablet Take 1 (one) tablet by mouth once daily 30 tablet 2 12/01/19 25 Active Active Problems Problem Noted Date Diagnosed [...] 10/06/2009 Overview (10/06/2009): 2 prior at [facility], pt wants repeat. Both LTCS. Need for oqmehng-tucfb-xfoofmt (MMR) vaccine 06/2010 Overview (01/17/2015): MMR after [...] Team Description 12/07/2024 Telephone Transitional Care at [address] [phone] Prema Broussard RN Missed Appointment 12/04/2024 Telephone Transitional Care at [address] [address] Jaci Echevarria MA Reminder Call 12/02/2024 Telephone Transitional Care at [address] [address] Emily oJse, ground support equipment mechanic 12/02/2024 Telephone Transitional Care at [address] [address] Emily Jose, ground support equipment mechanic 12/01/2024 Telephone Transitional Care at [address] [address] Emily Jose, ground support equipment mechanic 11/22/2024 12:55 AM CDT - 11/30/2024 6:03 PM CDT Hospital Encounter [facility] 6S ACUTE [address] [place] [address] Maedlaine Johnson MD Kumar, Ashwath, MD Halani, Varun, [...] and heating? Not hard at all 11/25/2024 [facility] [place] of Occupat ional Health - Occupational Stress [...] were you homeless or living in a nursing home (including now)? 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 Glucose WB/POC 233(H) 70 - 99 mg/dL 11/30/2024 4:58 PM [facility] Specimen Type Cap Fingerstick 2024 4:58 PM [facility] Blood BLOOD SPECIMEN / Unknown 11/30/2024 4:09 PM CDT 11/30/2024 4:58 PM CDT us Constance Houser MD LAB - POINT OF CARE ORDERABLES Final Result [facility] [address] [place] [address], [facility] [phone] * (ABNORMAL) CBC W/O DIFFERENTIAL (11/30/2024 8:35 AM CDT) Only the most recent of8 resultswithin the time period is included. WBC 4.9 4.0 - 10.7 x10E9/L 11/30/2024 9:05 AM [facility] RBC Count 3.62(L) 3.90 - 5.20 x10E12/L 11/30/2024 9:05 AM [facility] Hemoglobin 8.9(L) 11.9 - 15.8 g/dL 11/30/2024 9:05 AM [facility] Hematocrit 27.5(L) 34.8 - 46.1 % 11/30/2024 9:05 AM [facility] MCV 76.0(L) 80.0 - 98.0 fL 11/30/2024 9:05 AM [facility] MCH 24.6(L) 26.7 - 33.6 pg 11/30/2024 9:05 AM [facility] MCHC 32.4 31.7 - 36.3 g/dL 11/30/2024 9:05 AM [facility] RDW-CV 15.3(H) 11.3 - 14.8 % 11/30/2024 9:05 AM [facility] Platelet Count 291 150 - 420 x10E9/L 11/30/2024 9:05 AM [facility] MPV 10.6 7.8 - 11.4 fL 11/30/2024 9:05 AM [facility] Blood BLOOD SPECIMEN / Unknown Lab Venipuncture / Unknown 11/30/2024 8:35 AM CDT 11/30/2024 9:00 AM T us Horacio Henao MD LAB - HEMATOLOGY ORDERABLES Fin al Result [facility] [address] [place] [address], [facility] [phone] * (ABNORMAL) RENAL FUNCTION PANEL (11/30/2024 8:35 AM T) BUN 8 7 - 26 mg/dL 11/30/2024 9:43 AM [facility] Creatinine 0.46(L) 0.56 - 0.96 mg/dL 11/30/2024 9:43 AM [facility] Sodium 133(L) 136 - 145 mmol/L 11/30/2024 9:43 AM [facility] Potassium 4.2 3.5 - 4.5 mmol/L 11/30/2024 9:43 AM [facility] Chloride 101 98 - 107 mmol/L 11/30/2024 9:43 AM [facility] CO2 20(L) 22 - 29 mmol/L 11/30/2024 9:43 AM [facility] Glucose 335(H) 70 - 99 mg/dL 11/30/2024 9:43 AM [facility] Albumin 2.8(L) 3.4 - 5.0 g/dL 11/30/2024 9:43 AM [facility] Calcium 8.8 8.4 - 10.2 mg/dL 11/30/2024 9:43 AM [facility] Phosphorus 4.3 2.9 - 5.1 mg/dL 11/30/2024 9:43 AM [facility] Anion Gap 12 6 - 16 11/30/2024 9:43 AM [facility] BUN/Creatinine Ratio 17 7 - 23 11/30/2024 9:43 AM [facility] Osmolality Calculated 287 275 - 295 mOsm/kg 11/30/2024 9:43 AM CDT [facility] eGFR by CKD-EPI >90 >=90 mL/min/1.7 3 m2 11/30/2024 9:43 AM CDT [facility] Blood BLOOD SPECIMEN / Unknown Lab Venipuncture / Unknown 11/30/2024 8:35 AM CDT 11/30/2024 9:09 AM CDT Sacha Swanson MD LAB - CHEMISTRY ORDERABLES Final Result Performing Organization Address City/[facility]/ZIP Co de Phone Number [address] [address], [facility] [phone] * (ABNORMAL) MAGNESIUM BLOOD (11/30/2024 8:35 AM CDT) Only the most recent of30 resultswithin the time period is included. Magnesium 1.4(L) 1.6 - 2.6 mg/dL 11/30/2024 9:43 AM CDT [facility] Blood BLOOD SPECIMEN / Unknown Lab Venipuncture / Unknown 11/30/2024 8:35 AM CDT 11/30/2024 9:09 AM CDT Sacha Swanson MD LAB - CHEMISTRY ORDERABLES Final Result Performing Organization Address City/[facility] Co de Phone Number [address] [address], [place] [phone] * (ABNORMAL) BASIC METABOLIC PANEL (CALCIUM TOTAL) (11/29/2024 11:35 AM CDT) Only the most recent of31 resultswithin the time period is included. BUN 6(L) 7 - 26 mg/dL 11/29/2024 12:11 PM CDT [facility] Creatinine 0.50(L) 0.56 - 0.96 mg/dL 11/29/2024 12:11 PM CDT [facility] Sodium 135(L) 136 - 145 mmol/L 11/29/2024 12:11 PM T [facility] Potassium 4.0 3.5 - 4.5 mmol/L 11/29/2024 12:11 PM [facility] Chloride 102 98 - 107 mmol/L 11/29/2024 12:11 PM [facility] CO2 23 22 - 29 mmol/L 11/29/2024 12:11 PM [facility] Glucose 252(H) 70 - 99 mg/dL 11/29/2024 12:11 PM [facility] Calcium 8.4 8.4 - 10.2 mg/dL 11/29/2024 12:11 PM [facility] Anion Gap 10 6 - 16 11/29/2024 12:11 PM [facility] BUN/Creatinine Ratio 12 7 - 23 11/29/2024 12:11 PM [facility] Osmolality Calculated 286 275 - 295 mOsm/kg 11/29/2024 12:11 PM [facility] eGFR by CKD-EPI >90 >=90 mL/min/1.7 3 m2 11/29/2024 12:11 PM [facility] Blood BLOOD SPECIMEN / Unknown Venipuncture / Unknown 11/29/2024 11:35 AM CDT 11/29/2024 11:45 AM CDT Horacio Henao MD LAB - CHEMISTRY ORDERABLES Kimmy l Result Performing Organization Address City/[facility]/ZIP Co de Phone Number [address] [address], [facility] [phone] * PHOSPHORUS BLOOD (11/29/2024 11:35 AM CDT) Only the most recent of29 resultswithin the time period is included. Phosphorus 3.8 2.9 - 5.1 mg/dL 11/29/2024 12:11 PM T [facility] Blood BLOOD SPECIMEN / Unknown Venipuncture / Unknown 11/29/2024 11:35 AM CDT 11/29/2024 11:45 AM CDT Horacio Henao MD LAB - CHEMISTRY ORDERABLES Kimmy l Result [address] [address], [facility] [phone] * US THYROID (11/28/2024 1:45 PM CDT) Anatomical Region Laterality Modality Chest Ultrasound 11/28/2024 4:35 PM CDT Impressions 11/30/2024 9:58 AM CDT IMPRESSION: Multiple subcentimeter thyroid nodules. Diffusely heterogeneous thyroid echotexture with associated hyperemia of the thyroid parenchyma, suggestive of thyroiditis. > Dictated by Sandeep Sethi MD (residential recycle driver). Xander Valdes MD have personally reviewed and interpreted this examination/study. > Interpreting Provider: Xander Paiz MD on 11/30/2024 9:58 AM Narrative 11/30/2024 9:58 AM CDT PROCEDURE: US THYROID, DATE/TIME OF EXAM: 11/28/2024 2:27 PM, [facility] INDICATION: E05.90: Hyperthyroidism ADDITIONAL CLINICAL [...] > Dictated by Sandeep Sethi MD (residential recycle driver). Xander Valdes MD have personally reviewed and interpreted this examination/study. > Interpreting Provider: Xander Paiz MD on 11/30/2024 9:58 AM us Horacio Henao MD US ORDERABLES Final Result * (ABNORMAL) FOLATE (11/28/2024 12:18 PM CDT) Folate 37.7(H) 7.0 - 31.4 ng/mL 11/28/2024 2:30 PM CDT [facility] Comment:Result obtained by vishal rincon. Blood BLOOD SPECIMEN / Unknown Venipuncture / Unknown 11/28/2024 12:18 PM CDT 11/28/2024 12:41 PM CDT us Sacha Swanson MD LAB - CHEMISTRY ORDERABLES Final Result Performing Organization Address City/[facility]/ZIP Co de Phone Number [address] [address], [facility] [phone] * (ABNORMAL) VITAMIN B12 (11/28/2024 12:18 PM CDT) Vitamin B12 1,133(H) 213 - 816 pg/mL 11/28/2024 1:53 PM CDT [facility] Blood BLOOD SPECIMEN / Unknown Venipuncture / Unknown 11/28/2024 12:18 PM CDT 11/28/2024 12:41 PM CDT us Sacha Swanson MD LAB - CHEMISTRY ORDERABLES Final Result [address] [address], [facility] [phone] * (ABNORMAL) IRON + TRANSFERRIN PANEL (11/28/2024 12:18 PM CDT) Iron 46 40 - 150 ug/dL 11/28/2024 1:21 PM CDT [facility] Transferrin 243 174 - 382 mg/dL 11/28/2024 1:21 PM CDT [facility] Transferrin Saturation % 15(L) 16 - 50 % 11/28/2024 1:21 PM CDT [facility] TIBC Calculated 304 240 - 450 ug/dL 11/28/2024 1:21 PM CDT [facility] Blood BLOOD SPECIMEN / Unknown Venipuncture / Unknown 11/28/2024 12:18 PM CDT 11/28/2024 12:38 PM CDT Sacha Swanson MD LAB - CHEMISTRY ORDERABLES Final Result [address] [address], [facility] [phone] * FERRITIN (11/28/2024 12:18 PM CDT) Ferritin 17 13 - 204 ng/mL 11/28/2024 1:38 PM CDT [facility] Blood BLOOD SPECIMEN / Unknown Venipuncture / Unknown 11/28/2024 12:18 PM CDT 11/28/2024 12:38 PM CDT Sacha Swanson MD LAB - CHEMISTRY ORDERABLES Final Result [address] [address], [facility] [phone] * ACTH 60 MINUTES (11/28/2024 9:22 AM CDT) Cortisol 60 Min 23.7 >=20.0 mcg/dL 11/28/2024 10:22 AM CDT [facility] Blood BLOOD SPECIMEN / Unknown Venipuncture / Unknown 11/28/2024 9:22 AM CDT 11/28/2024 9:38 AM CDT Horacio Henao MD LAB - CHEMISTRY ORDERABLES Kimmy l Result Performing Organization Address [facility]/ZIP Co de Phone Number [address] [address], [facility] [phone] * (ABNORMAL) ACTH 30 MINUTES (11/28/2024 8:49 AM CDT) Cortisol 30 Min 19.8(L) >=20.0 mcg/dL 11/28/2024 10:02 AM CDT [facility] Blood BLOOD SPECIMEN / Unknown Venipuncture / Unknown 11/28/2024 8:49 AM CDT 11/28/2024 9:18 AM CDT Horacio Henao MD LAB - CHEMISTRY ORDERABLES Kimmy l Result Performing Organization Address [facility] Co de Phone Number [address] [address], [facility] [phone] * ACTH CORTISOL BASELINE (11/28/2024 8:14 AM CDT) Cortisol Baseline 7.8 No Reference Range Established mcg/dL 11/28/2024 9:14 AM CDT [facility] Blood BLOOD SPECIMEN / Unknown Venipuncture / Unknown 11/28/2024 8:14 AM CDT 11/28/2024 8:28 AM CDT Horacio Henao MD LAB - CHEMISTRY ORDERABLES Kimmy l Result Performing Organization Address City/[facility] Co de Phone Number [address] [address], [place] [phone] * (ABNORMAL) THYROID PEROXIDASE ANTIBODY (11/28/2024 4:26 AM CDT) Thyroid Peroxidase TPO Antibody 465.3(H) 0.0 - 9.0 IU/mL 11/29/2024 11:50 PM CDT [facility] ([facility]) Comment: Performed By: [facility] [address] [place] [address] Tube Mounter: Zana Guardado MD, PhD CLIA Number: [id number] Blood BLOOD SPECIMEN / Unknown Venipuncture / Unknown 11/28/2024 4:26 AM CDT 11/28/2024 4:37 AM CDT Horacio Henao MD LAB - CHEMISTRY ORDERABLES Kimmy l Result Performing Organization Address City/[facility]/ZIP Co de Phone Number [facility] [employer] [facility]) [address] [place] [address] * (ABNORMAL) THYROID STIMULATING IMMUNOGLOBULIN (TSI) (11/28/2024 4:26 AM CDT) Thyroid Stimulating Immunoglobulin TSI 5.13(H) <=0.54 IU/L 11/30/2024 10:35 PM CDT [employer] ([facility]) Comment: INTERPRETIVE INFORMATION: Thyroid Stimulating Immunoglobulin (TSI) [...] medical history, and other findings. Performed By: [facility] [address] [place] [address] Tube Mounter: Zana Guardado MD, PhD CLIA Number: [id number] Blood BLOOD SPECIMEN / Unknown Venipuncture / Unknown 11/28/2024 4:26 AM CDT 11/28/2024 4:37 AM CDT Horacio Henao MD LAB - CHEMISTRY ORDERABLES Kimmy l Result Performing Organization Address City/[facility]/ZIP Co de Phone Number [facility] [employer] [facility]) [address] [place] [address] * (ABNORMAL) T3 FREE (11/28/2024 4:26 AM CDT) Pathologist [facility] T3 Free 5.5(H) 1.7 - 3.7 pg/mL 11/28/2024 5:34 AM CDT [facility] Blood BLOOD SPECIMEN / Unknown Venipuncture / Unknown 11/28/2024 4:26 AM CDT 11/28/2024 4:43 AM CDT Horacio Henao MD LAB - CHEMISTRY ORDERABLES Kimmy l Result Performing Organization Address City/[facility]/ZIP Co de Phone Number [address] [address], [facility] [phone] * (ABNORMAL) TSH RECEPTOR ANTIBODY (11/28/2024 4:26 AM CDT) TSH Receptor Antibody 5.37(H) <=1.75 IU/L 11/30/2024 3:50 PM CDT [facility] ([facility]) Comment: Performed By: [facility] [address] [place] [address] Tube Mounter: Zana Guardado MD, PhD CLIA Number: [id number] Blood BLOOD SPECIMEN / Unknown Venipuncture / Unknown 11/28/2024 4:26 AM CDT 11/28/2024 4:37 AM CDT Horacio Henao MD LAB - CHEMISTRY ORDERABLES Kimmy l Result Performing Organization Address [facility] Co de Phone Number [facility]) [address] [place] [address] * (ABNORMAL) TSH (11/28/2024 4:26 AM CDT) TSH <0.010(L) 0.350 - 4.940 uIU/mL 11/28/2024 5:34 AM CDT [facility] Blood BLOOD SPECIMEN / Unknown Venipuncture / Unknown 11/28/2024 4:26 AM CDT 11/28/2024 4:43 AM CDT Horacio Henao MD LAB - CHEMISTRY ORDERABLES Kimmy l Result [facility] [address] [place] [address], [facility] [phone] * (ABNORMAL) T4 FREE (11/28/2024 4:26 AM CDT) Only the most recent of2 resultswithin the time period is included. Pathologist [facility] T4 Free 2.0(H) 0.7 - 1.5 ng/dL 11/28/2024 5:34 AM CDT [facility] Blood BLOOD SPECIMEN / Unknown Venipuncture / Unknown 11/28/2024 4:26 AM CDT 11/28/2024 4:43 AM CDT Horacio Henao MD LAB - CHEMISTRY ORDERABLES Kimmy l Result Performing Organization Address [facility]/ZIP Co de Phone Number [address] [address], [facility] [phone] * (ABNORMAL) T4 TOTAL (11/28/2024 4:26 AM CDT) [facility] T4 Total 12.80(H) 4.50 - 11.70 ug/dL 11/30/2024 12:35 PM CDT [facility] ([facility]) Comment: Performed By: [facility] [address] [place] [address] Tube Mounter: Zana Guardado MD, PhD CLIA Number: [id number] Blood BLOOD SPECIMEN / Unknown Venipuncture / Unknown 11/28/2024 4:26 AM CDT 11/28/2024 4:37 AM CDT us Horacio Henao MD LAB - CHEMISTRY ORDERABLES Kimmy l Result Performing Organization Address City/[facility]/ZIP Co de Phone Number [facility]) [address] [place] [address] * (ABNORMAL) T3 TOTAL (11/28/2024 4:26 AM CDT) Pathologist [facility] T3 Total 237(H) 80 - 200 ng/dL 11/30/2024 5:27 PM CDT [facility] ([facility]) Comment: REFERENCE INTERVAL: Triiodothyronine, Total (Total T3) Access complete set of age- and/or gender-specific reference intervals for this test in the [facility] Laboratory Test Directory (Independent IP). Performed By: [facility] [employer] [address] [place] [address] Tube Mounter: Zana Guardado MD, PhD CLIA Number: [id number] Blood BLOOD SPECIMEN / Unknown Venipuncture / Unknown 11/28/2024 4:26 AM CDT 11/28/2024 4:37 AM CDT Horacio Henao MD LAB - CHEMISTRY ORDERABLES Kimmy l Result Performing Organization Address [facility] Co de Phone Number [facility]) [address] [place] [phone] [place] [address] * (ABNORMAL) CORTISOL BLOOD AM (11/28/2024 4:26 AM CDT) Cortisol AM 2.8(L) 3.7 - 19.4 ug/dL 11/28/2024 5:33 AM CDT [facility] Blood BLOOD SPECIMEN / Unknown Venipuncture / Unknown 11/28/2024 4:26 AM CDT 11/28/2024 4:43 AM CDT Narrative [facility] - 11/28/2024 5:33 AM CDT Normal cortisol levels are generally highest in the morning hours and lowest from late evening through the hospital food service worker hours (8 PM to 4 AM). The PM measurements of cortisol run approximately one-half to one-third of the AM values. Horacio Henao MD LAB - CHEMISTRY ORDERABLES Kimmy l Result [address] [address], [place] [phone] * (ABNORMAL) HYDROXYBUTYRATE BETA (11/27/2024 12:08 PM CDT) Only the most recent of5 resultswithin the time period is included. Beta-Hydroxybu tyrate 1.72(H) <0.50 mmol/L 11/27/2024 12:45 PM CDT [facility] Blood BLOOD SPECIMEN / Unknown Venipuncture / Unknown 11/27/2024 12:08 PM CDT 11/27/2024 12:16 PM CDT Horacio Henao MD LAB - CHEMISTRY ORDERABLES Kimmy l Result Performing Organization Address City/[facility]/ZIP Co de Phone Number [facility] [address] [place] [address], [facility] [phone] * EKG 12-LEAD (11/27/2024 10:58 AM CDT) Only the most recent of4 resultswithin the time period is included. Ventricular Rate 96 BPM [facility] Atrial Rate 96 BPM [facility] P-R Interval 142 ms [facility] QRS Duration ms 70 ms [facility] Q-T Interval ms 364 ms [facility] QTC Calculation (Bezet) 459 ms [facility] Calculated P Issue 55 degrees [facility] Calculated R Issue 9 degrees [facility] Calculated T Issue 44 degrees [facility] Interpretation EKG NORMAL SINUS RHYTHM NORMAL ECG WHEN COMPARED WITH ECG OF 25-NOV-2024 08:15, Heart rate is slower with lateral injury pattern no longer present Confirmed by MARY GRACE JARQUIN DO ([id number]) on 12/06/2024 5:44:03 PM [facility] 11/27/2024 10:5 8 AM CDT 12/06/2024 5:44 PM CDT Horacio Henao MD ECG ORDERABLES Edited Result - Final Performing Organization Address City/[facility]/ZIP Co de Phone Number [facility] * (ABNORMAL) URINALYSIS REFLEX TO MICROSCOPIC NO CULTURE (11/27/2024 10:48 AM CDT) Color UA Colorless(A ) Yellow, Straw 11/27/2024 11:14 AM CDT [facility] Clarity UA Clear Clear 11/27/2024 11:14 AM CDT [facility] Glucose UA 4+(A) Normal 11/27/2024 11:14 AM [facility] Bilirubin UA Negative Negative 11/27/2024 11:14 AM [facility] Ketone UA 1+(A) Negative 11/27/2024 11:14 AM [facility] Specific [place] UA 1.006 1.005 - 1.030 11/27/2024 11:14 AM [facility] Blood UA 3+(A) Negative 11/27/2024 11:14 AM [facility] pH UA 5.5 5.0 - 9.0 pH 11/27/2024 11:14 AM [facility] Protein UA Negative Negative 11/27/2024 11:14 AM [facility] Urobilinogen UA Normal Normal mg/dL 11/27/2024 11:14 AM [facility] Nitrite UA Negative Negative 11/27/2024 11:14 AM [facility] Leukocyte UA Negative Negative 11/27/2024 11:14 AM [facility] RBC UA 11-20(A) 0 - 5 # /hpf 11/27/2024 11:14 AM [facility] WBC UA 0-5 0 - 5 # /hpf 11/27/2024 11:14 AM [facility] Bacteria UA Trace(A) None Seen 11/27/2024 11:14 AM [facility] Squamous Epithelial Cells 0-2 0 - 5 /hpf 11/27/2024 11:14 AM [facility] Urine URINE SPECIMEN OBTAINED BY CLEAN CATCH PROCEDURE / Unknown Collection / Unknown 11/27/2024 10:48 AM CDT 11/27/2024 10:53 AM T us Horacio Henao MD LAB - URINALYSIS ORDERABLES Fin al Result [facility] [address] [place] [id number], [facility] [phone] * UREA NITROGEN URINE RANDOM (11/27/2024 10:48 AM CDT) Urea Nitrogen Random Urine 78 Not Established mg/dL 11/27/2024 11:18 AM [facility] Urine URINE SPECIMEN OBTAINED BY CLEAN CATCH PROCEDURE / Unknown Collection / Unknown 11/27/2024 10:48 AM CDT 11/27/2024 11:05 AM CDT us Horacio Henao MD LAB - URINE CHEMISTRY ORDERABLE S Final Result Performing Organization Address City/[place] [facility]/ZIP Co de Phone Number [address] [address], [place] [phone] * OSMOLALITY URINE (11/27/2024 10:48 AM CDT) Osmolality Urine 258 50 - 1,200 mOsm/kg 11/27/2024 11:55 AM CDT [facility] Urine URINE SPECIMEN OBTAINED BY CLEAN CATCH PROCEDURE / Unknown Collection / Unknown 11/27/2024 10:48 AM CDT 11/27/2024 11:05 AM CDT us Horacio Henao MD LAB - URINE CHEMISTRY ORDERABLE S Final Result Performing Organization Address [facility] Co de Phone Number [address] [address], [place] [phone] * LYTES (NA K CL) URINE RANDOM PANEL (11/27/2024 10:48 AM CDT) Sodium Urine 65 Not Established mmol/L 11/27/2024 11:18 AM CDT [facility] Potassium Urine 10.6 Not Established mmol/L 11/27/2024 11:18 AM CDT [facility] Chloride Random Urine 65 Not Established mmol/L 11/27/2024 11:18 AM CDT [facility] Urine URINE SPECIMEN OBTAINED BY CLEAN CATCH PROCEDURE / Unknown Collection / Unknown 11/27/2024 10:48 AM CDT 11/27/2024 11:05 AM CDT us Horacio Henao MD LAB - URINE CHEMISTRY ORDERABLE S Final Result Performing Organization Address [facility]/ZIP Co de Phone Number [address] [address], [place] [phone] * CREATININE URINE RANDOM (11/27/2024 10:48 AM CDT) Creatinine Urine 7.06 Not Established mg/dL 11/27/2024 11:18 AM CDT [facility] Urine URINE SPECIMEN OBTAINED BY CLEAN CATCH PROCEDURE / Unknown Collection / Unknown 11/27/2024 10:48 AM CDT 11/27/2024 11:05 AM CDT us Horacio Henao MD LAB - URINE CHEMISTRY ORDERABLE S Final Result [facility] [address] [place] [address], [facility] [phone] * CT Head Wo Contrast (11/27/2024 9:41 [...] DATE/TIME OF EXAM: 11/27/2024 9:42 AM, LOCATION [facility] INDICATION: E08.10: Diabetic ketoacidosis without coma associated [...] DATE/TIME OF EXAM: 11/27/2024 9:42 AM, LOCATION [facility] INDICATION: E08.10: Diabetic ketoacidosis without coma associated [...] Report was dictated by Jason Espinosa MD, ([facility] VIR resident). I, Bello Sullivan MD have personally reviewed and interpreted this examination/study. > Interpreting Provider: Bello Sullivan MD on 11/27/2024 10:51 AM us Horacio Henao MD CT ORDERABLES Final Result * (ABNORMAL) TSH REFLEX FREE T4 (11/27/2024 8:20 AM CDT) TSH <0.010(L) 0.350 - 4.940 uIU/mL 11/27/2024 9:46 AM CDT [facility] Blood BLOOD SPECIMEN / Unknown Venipuncture / Unknown 11/27/2024 8:20 AM CDT 11/27/2024 8:57 AM CDT Horacio Henao MD LAB - CHEMISTRY ORDERABLES Kimmy l Result [address] [address], [place] [phone] * TROPONIN-I HIGH SENSITIVE (11/25/2024 8:26 AM CDT) Only the most recent of2 resultswithin the time period is included. Troponin I High Sensitive <3 <=14 ng/L 11/25/2024 9:36 AM CDT [facility] Blood BLOOD SPECIMEN / Unknown Venipuncture / Unknown 11/25/2024 8:26 AM CDT 11/25/2024 8:59 AM CDT us Horacio Henao MD LAB - CHEMISTRY ORDERABLES Kimmy l Result Performing Organization Address [facility]/ZIP Co de Phone Number [address] [address], [place] [phone] * CARDIAC EKG ORDER (11/23/2024 12:01 PM CDT) Narrative 11/23/2024 12:01 PM CDT Ordered by an unspecified provider. us Scanned Document CARDIAC SERVICES ORDERABLES Fin al Result * BLOOD TYPE VERIFICATION (11/23/2024 6:02 AM CDT) Pathologist [facility] ABO Rh B POS 11/23/2024 7:0 3 AM CDT [facility] Blood Bank BLOOD SPECIMEN / Unknown Venipuncture / Unknown 11/23/2024 6:02 AM CDT 11/23/2024 6:15 AM CDT Josafat Loza MD LAB - BLOOD BANK ORDERABLES Kimmy l Result [facility] [address] [place] [address], [facility] [phone] * (ABNORMAL) HEMOGLOBIN A1C (11/23/2024 3:50 AM CDT) Hemoglobin A1c 6.9(H) <=5.6 % 11/23/2024 9:16 AM CDT [facility] Estimated Average Glucose 151 mg/dL 11/23/2024 9:16 AM CDT [facility] Comment: HbA1c Interpretation: Normal : < 5.7% Pre-diabetes: 5.7-6.4% Diabetes: Equal to or greater than 6.5% Test results diagnostic of diabetes should be repeated for confirmation. Treatment target values recommended by ADA and other clinical organizations should be used to evaluate metabolic control in patients. Reference: [place] [employer], Standards of Care in Diabetes -2020 In patients 70 years and older consider HbA1c target range of 7.0-7.5% (Reference: Nura Sorto et al. VIDHIDA. 2012) The Sebia assay for the measurement of HbA1c is a National Glycohemoglobin Standardization Program (NGSP) certified method. Blood BLOOD SPECIMEN / Unknown Venipuncture / Unknown 11/23/2024 3:50 AM CDT 11/23/2024 4:06 AM CDT us Sanna Bedoya MD LAB - CHEMISTRY ORDERABLES Kimmy l Result [facility] [address] [place] [address], [facility] [phone] * CULTURE BLOOD (11/22/2024 10:26 PM CDT) Only the most recent of2 resultswithin the time period is included. Culture No growth day 5 RAYRAY 11/28/2024 1:31 AM CDT [facility] Blood PERIPHERAL BLOOD / Unknown Venipuncture / Unknown 11/22/2024 10:26 PM CDT 11/22/2024 10:30 PM CDT us Josafat Loza MD LAB - MICROBIOLOGY ORDERABLES Fi nal Result [facility] [address] [place], [place] [address], [facility] [phone] * CT Chest Pe W Abd Pelvis [...] drafted by Amadou Perez MD (residential program manager) IXander MD have personally reviewed and interpreted this examination/study. > Interpreting Provider: Xander Paiz MD on 11/22/2024 10:37 PM Narrative 11/22/2024 10:37 PM CDT PROCEDURE: CT CHEST PE W ABD PELVIS W CONT, DATE/TIME OF EXAM: 11/22/2024 6:01 PM, LOCATION [facility] INDICATION: R10.84: Generalized abdominal pain R11.2: Nausea [...] CONT, DATE/TIME OF EXAM:11/22/2024 6:01 PM, LOCATION [facility] INDICATION: R10.84: Generalized abdominal pain R11.2: Nausea [...] drafted by Amadou Perez MD (residential program manager) IXander MD have personally reviewed and interpreted this examination/study. > Interpreting Provider: Xander Paiz MD on 11/22/2024 10:37 PM Oly Alberto MD CT ORDERABLES Final Result * PTT [facility] (11/22/2024 4:40 PM CDT) APTT 34.3 23.0 - 38.4 Seconds 11/22/2024 5:17 PM CDT [facility] Comment:Suggested therapeuti c range for full dose I.V. unfractionated heparin therapy for venous thromboembolism is 71 to 109 seconds. Blood BLOOD SPECIMEN / Unknown Venipuncture / Unknown 11/22/2024 4:40 PM CDT 11/22/2024 4:52 PM CDT us Oly Alberto MD LAB - COAGULATION ORDERABLES Fin al Result Performing Organization Address City/[facility]/ZIP Co de Phone Number [facility] [address] [place] [address], [facility] [phone] * PT-INR [facility] (11/22/2024 4:40 PM CDT) PT 14.6 12.1 - 14.8 Seconds 11/22/2024 5:17 PM CDT [facility] INR 1.2 See Comment 11/22/2024 5:17 PM CDT [facility] Comment:The suggested therap eutic range for standard coumadin (warfarin) therapy is an INR of 2.0-3.0. For high-risk patients (Mechanical Mitral Valve Prosthesis, etc.), the suggested prophylactic therapeutic range is an INR of 2.5-3.5. Blood BLOOD SPECIMEN / Unknown Venipuncture / Unknown 11/22/2024 4:40 PM CDT 11/22/2024 4:52 PM CDT Result [facility] Oly Alberto MD LAB - COAGULATION ORDERABLES Fin al Result Performing Organization Address [facility]/ZIP Co de Phone Number [facility] [address] [place] [address], [facility] [phone] * TYPE + SCREEN PANEL (11/22/2024 4:40 PM CDT) Antibody Screen NEG 5:33 PM CDT [facility] ABO Rh B POS 11/22/2024 5:33 PM CDT [facility] Blood Bank BLOOD SPECIMEN / Unknown Venipuncture / Unknown 11/22/2024 4:40 PM CDT 11/22/2024 4:57 PM CDT Oly Alberto MD LAB - BLOOD BANK ORDERABLES Kimmy l Result [facility] [address] [place] [address], [facility] [phone] * URINE DRUG SCREEN IMMUNOASSAY (11/22/2024 3:45 PM CDT) [facility] Amphetamines Screen Urine Negative Negative: < 1000 ng/mL 11/22/2024 4:14 PM CDT [facility] Barbiturates Screen Urine Negative Negative: < 200 ng/mL 11/22/2024 4:14 PM CDT [facility] Benzodiazepine Screen Urine Negative Negative: < 200 ng/mL 11/22/2024 4:14 PM CDT [facility] Opiates Urine Negative Negative: < 300 ng/mL 11/22/2024 4:14 PM T [facility] Cocaine Metabolites Urine Negative Negative: < 300 ng/mL 11/22/2024 4:14 PM CDT [facility] Phencyclidine Screen Urine Negative Negative: < 25 ng/ml 11/22/2024 4:14 PM CDT [facility] Cannabinoids Screen Urine Negative Negative: <50 ng/mL 11/22/2024 4:14 PM CDT [facility] Methadone Screen Urine Negative Negative: < 300 ng/mL 11/22/2024 4:14 PM T [facility] Fentanyl Screen Urine Negative Negative: <1.5 ng/mL 11/22/2024 4:14 PM T [facility] Urine URINE / Unknown Collection / Unknown 11/22/2024 3:45 PM CDT 11/22/2024 3:49 PM CDT [facility] - 11/22/2024 4:14 PM CDT The Urine Toxicology Screening Panel does not screen for Propoxyphene, Meprobamate, Carisoprodol, Trazodone, [id number]-[id number] medications and/or volatiles (Acetone, Isopropanol, Methanol or Ethylene Glycol). Ethanol, Salicylate, Acetaminophen, Tricyclic Antidepressants and several therapeutic drugs may be individually assayed in serum or plasma specimen. Toxicology testing by the [facility] is an aid to medical diagnosis and treatment of patients. No documented chain of custody was maintained. Results are intended to be used for clinical purposes only. us Sanna Bedoya MD LAB - URINE CHEMISTRY ORDERABLE S Final Result [facility] [address] [place] [address] [phone] * (ABNORMAL) BLOOD GASES LYNN + COOX PANEL (11/22/2024 12:53 PM CDT) Only the most recent of2 resultswithin the time period is included. pH Venous 7.47(H) 7.32 - 7.42 pH 11/22/2024 1:09 PM [facility] pO2 Venous 88(H) 35 - 40 mmHg 11/22/2024 1:09 PM [facility] pCO2 Venous 36(L) 40 - 50 mmHg 11/22/2024 1:09 PM [facility] HCO3 Venous 26.2 20 - 30 mmol/L 11/22/2024 1:09 PM [facility] Base Excess Venous 2.5(H) -2.0 - 2.0 mmol/L 11/22/2024 1:09 PM [facility] Oxyhemoglobin Venous 96.6 % 10/26 1:09 PM [facility] Deoxyhemoglobin (HHB) Venous % 1.5 % 11/22/2024 1:09 PM [facility] Methemoglobin <0.8 0.0 - 2.0 % 11/22/2024 1:09 PM [facility] Carboxyhemoglobin 1.3 0.0 - 2.0 % 2024 1:09 PM [facility] O2 Content Venous 13.8 Interpret within clinical context ml/dL 11/22/2024 1:09 PM [facility] Hemoglobin by COOX 10.1(L) 12.0 - 15.6 g/dL 11/22/2024 1:09 PM [facility] O2 Saturation Venous 99 >=70 % 10/26 1:09 PM [facility] FI O2 Mixed Venous 95.0 % 2024 1:09 PM [facility] Blood BLOOD SPECIMEN / Unknown Venipuncture / Unknown 11/22/2024 12:53 PM CDT 11/22/2024 1:06 PM [facility] Narrative [facility] - 11/22/2024 1:09 PM CDT Carboxyhemoglobin Normal Concentration: Non-smokers: 0-2%; Smokers: 0-9%; Toxic: >20% Sanna Bedoya MD LAB - BLOOD GASES ORDERABLES nal Result [facility] [address] [place] [address], [facility] [phone] * XR Abdomen Kub Portable (11/22/2024 12:07 [...] DATE/TIME OF EXAM: 11/22/2024 12:07 PM, LOCATION [facility] INDICATION: R11.2: Nausea and vomiting, unspecified vomiting type ADDITIONAL CLINICAL INFORMATION: Ordering Provider Reason For Exam: Intractable nausea/vomiting Technologist Note: Additional: COMPARISON: None. FINDINGS: There is no dilatation of small or large bowel.Pneumoperitoneum cannot be excluded on this supine exam.Osseous structures are intact. Procedure Note Yordy Potter MD - 11/22/2024 PROCEDURE: XR ABDOMEN KUB PORTABLE, DATE/TIME OF EXAM: 11/22/2024 12:07 PM, LOCATION [facility] INDICATION: R11.2: Nausea and vomiting, unspecified vomiting [...] Yordy Potter MD on 11/22/2024 4:13 PM us Sanna Bedoya MD DIAGNOSTIC IMAGING ORDERABLES F inal Result * (ABNORMAL) URINALYSIS REFLEX MICROSCOPIC REFLEX CULTURE (11/22/2024 6:40 AM CDT) Color UA Yellow Yellow, Straw 11/22/2024 6:49 AM [facility] Clarity UA Turbid(A) Clear 11/22/2024 6:49 AM [facility] Glucose UA 3+(A) Normal 11/22/2024 6:49 AM [facility] Bilirubin UA Negative Negative 11/22/2024 6:49 AM [facility] Ketone UA 2+(A) Negative 11/22/2024 6:49 AM [facility] Specific [place] UA 1.013 1.005 - 1.030 11/22/2024 6:49 AM [facility] Blood UA Negative Negative 11/22/2024 6:49 AM [facility] pH UA 7.0 5.0 - 9.0 pH 11/22/2024 6:49 AM [facility] Protein UA Negative Negative 11/22/2024 6:49 AM [facility] Urobilinogen UA Normal Normal mg/dL 025 6:49 AM [facility] Nitrite UA Negative Negative 11/22/2024 6:49 AM [facility] Leukocyte UA Negative Negative 11/22/2024 6:49 AM [facility] Urine URINE SPECIMEN OBTAINED BY CLEAN CATCH PROCEDURE / Unknown Collection / Unknown 11/22/2024 6:40 AM CDT 11/22/2024 6:42 AM CDT [facility] - 11/22/2024 6:49 AM CDT us Madelaine Johnson MD LAB - URINALYSIS ORDERABLES Fi nal Result [facility] [address] [place] [address], [facility] [phone] * (ABNORMAL) CK BLOOD (11/22/2024 4:29 AM CDT) CK Total 15(L) 30 - 200 U/L 11/22/2024 4:47 AM CDT [facility] Blood BLOOD SPECIMEN / Unknown Venipuncture / Unknown 11/22/2024 4:29 AM CDT 11/22/2024 4:29 AM CDT Madelaine Johnson MD LAB - CHEMISTRY ORDERABLES Fin al Result Performing Organization Address City/[facility] Co de Phone Number [address] [address], [place] [phone] * LACTIC ACID BLOOD REFLEX TO REPEAT (11/22/2024 2:43 AM CDT) [facility] Lactic Acid-Stat 1.7 <=2.0 mmol/L 11/22/2024 3:12 AM CDT [facility] Blood BLOOD SPECIMEN / Unknown Venipuncture / Unknown 11/22/2024 2:43 AM CDT 11/22/2024 2:47 AM CDT Madelaine Johnson MD LAB - CHEMISTRY ORDERABLES Fin al Result Performing Organization Address [facility] de Phone Number [address] [address], [place] [phone] * LIPASE BLOOD (11/22/2024 2:43 AM CDT) Pathologist [facility] Lipase 10 8 - 78 U/L 11/22/2024 3:13 AM CDT [facility] Blood BLOOD SPECIMEN / Unknown Venipuncture / Unknown 11/22/2024 2:43 AM CDT 11/22/2024 2:47 AM CDT Narrative [facility] - 11/22/2024 3:13 AM CDT Lipase results from the Barrett Alinity analyzer may not be comparable with other methodologies. Madelaine Johnson MD LAB - CHEMISTRY ORDERABLES Fin al Result Performing Organization Address City/[facility] Co de Phone Number [facility] [address] [place] [address], [facility] [phone] * SARS-COV-2 (COVID-19)+INFLU A+B PCR RAPID (11/22/2024 1:59 AM CDT) COVID-19 PCR Not detected Not detected 11/23/19 2:44 AM CDT [facility] Influenza A Rapid SANTOSH Not Detected Not Detected 11/22/2024 2:44 AM CDT [facility] Influenza B SANTOSH Rapid Not Detected Not Detected 11/22/2024 2:44 AM CDT [facility] Microbiology SPECIMEN FROM NASOPHARYNGEAL STRUCTURE / Unknown Collection / Unknown 11/22/2024 1:59 AM CDT 11/22/2024 2:03 AM CDT Narrative [facility] - 11/22/2024 2:44 AM CDT Influenza assay [...] acid amplification assay performance was validated by [facility]. This test has been authorized by [...] this EUA assay are available upon request. us Madelaine Johnson MD LAB - MICROBIOLOGY ORDERABLES Final Result [facility] [address] [place] [address], [facility] [phone] * (ABNORMAL) CBC W AUTO DIFFERENTIAL (11/22/2024 12:41 AM CDT) WBC 6.6 4.0 - 10.7 x10E9/L 11/22/2024 12:51 AM [facility] RBC Count 5.04 3.90 - 5.20 x10E12/L 11/22/2024 12:51 AM [facility] Hemoglobin 12.4 11.9 - 15.8 g/dL 11/22/2024 12:51 AM [facility] Hematocrit 38.0 34.8 - 46.1 % 11/22/2024 12:51 AM [facility] MCV 75.4(L) 80.0 - 98.0 fL 11/22/2024 12:51 AM [facility] MCH 24.6(L) 26.7 - 33.6 pg 11/22/2024 12:51 AM [facility] MCHC 32.6 31.7 - 36.3 g/dL 11/22/2024 12:51 AM [facility] RDW-CV 14.9(H) 11.3 - 14.8 % 11/22/2024 12:51 AM [facility] Platelet Count 235 150 - 420 x10E9/L 11/22/2024 12:51 AM [facility] MPV 10.5 7.8 - 11.4 fL 11/22/2024 12:51 AM [facility] Neutrophil % 61.2 41.0 - 74.0 % 11/22/2024 12:51 AM [facility] Lymphocyte % 25.5 17.0 - 47.0 % 11/22/2024 12:51 AM [facility] Monocyte % 11.7(H) 3.0 - 11.0 % 11/22/2024 12:51 AM [facility] Eosinophil % 0.8 0.0 - 7.0 % 11/22/2024 12:51 AM T [facility] Basophil % 0.5 0.0 - 1.6 % 11/22/2024 12:51 AM [facility] Immature Granulocytes % 0.3 0.0 - 1.0 % 11/22/2024 12:51 AM [facility] Neutrophil Absolute 4.03 1.60 - 7.50 x10E9/L 11/22/2024 12:51 AM [facility] Lymphocyte Absolute 1.68 1.00 - 4.40 x10E9/L 11/22/2024 12:51 AM [facility] Monocyte Absolute 0.77 0.15 - 1.00 x10E9/L 11/22/2024 12:51 AM [facility] Eosinophil Absolute 0.05 0.00 - 0.60 x10E9/L 11/22/2024 12:51 AM [facility] Basophil Absolute 0.03 0.00 - 0.13 x10E9/L 11/22/2024 12:51 AM [facility] Blood BLOOD SPECIMEN / Unknown Venipuncture / Unknown 11/22/2024 12:41 AM CDT 11/22/2024 12:46 AM CDT us Madelaine Johnson MD LAB - HEMATOLOGY ORDERABLES Fi nal Result Performing Organization Address [facility] Co de Phone Number [address] [address], [facility] [phone] * (ABNORMAL) COMPREHENSIVE METABOLIC PANEL (11/22/2024 12:41 AM CDT) BUN 8 7 - 26 mg/dL 11/22/2024 1:21 AM [facility] Creatinine 0.68 0.56 - 0.96 mg/dL 11/22/2024 1:21 AM [facility] Sodium 140 136 - 145 mmol/L 11/22/2024 1:21 AM [facility] Potassium 4.0 3.5 - 4.5 mmol/L 11/22/2024 1:21 AM [facility] Chloride 101 98 - 107 mmol/L 11/22/2024 1:21 AM [facility] CO2 21(L) 22 - 29 mmol/L 11/22/2024 1:21 AM [facility] Glucose 192(H) 70 - 99 mg/dL 11/22/2024 1:21 AM [facility] Calcium 11.7(H) 8.4 - 10.2 mg/dL 11/22/2024 1:21 AM [facility] Protein Total 7.7 6.0 - 8.3 g/dL 11/22/2024 1:21 AM [facility] Albumin 3.8 3.4 - 5.0 g/dL 11/22/2024 1:21 AM [facility] Bilirubin Total 1.4(H) 0.2 - 1.2 mg/dL 11/22/2024 1:21 AM [facility] Alkaline Phosphatase 65 40 - 150 U/L 11/22/2024 1:21 AM [facility] ALT 18 5 - 55 U/L 11/22/2024 1:21 AM [facility] AST 25 5 - 34 U/L 11/22/2024 1:21 AM [facility] Anion Gap 18(H) 6 - 16 11/22/2024 1:21 AM [facility] BUN/Creatinine Ratio 12 7 - 23 11/22/2024 1:21 AM [facility] Osmolality Calculated 294 275 - 295 mOsm/kg 11/22/2024 1:21 AM [facility] Albumin/Globulin Ratio 1.0(L) 1.1 - 2.3 11/22/2024 1:21 AM [facility] eGFR by CKD-EPI >90 >=90 mL/min/1.7 3 m2 11/22/2024 1:21 AM [facility] Blood BLOOD SPECIMEN / Unknown Venipuncture / Unknown 11/22/2024 12:41 AM CDT 11/22/2024 12:46 AM CDT us Madelaine Johnson MD LAB - CHEMISTRY ORDERABLES Fin al Result [address] [address], [facility] [phone] * HCG BETA BLOOD QUANTITATIVE (11/22/2024 12:41 AM CDT) [facility] Beta-hCG Total Quantitative <3 mIU/mL 11/22/2024 1:33 AM CDT [facility] Comment: HCG Numeric Result Interpretation: Non- Females: [...] ORDERABLES Fin al Result Performing Organization Address [facility] Co de Phone Number [address] [address], [facility] [phone] * HIV-1 HIV-2 ANTIBODY (11/10/2010 4:35 PM CDT) [facility] HIV-1/HIV-2 Nonreactive Nonreactive [facility] BLOOD SPECIMEN / Unknown 11/10/2010 4:35 PM CDT 11/10/2010 4:45 PM CDT Ladonna Vasques MD LAB - CHEMISTRY ORDE REFUGIO Final Result Performing Organization Address [facility] Co de Phone Number [facility] [address] [place] [address] * HEPATITIS C ANTIBODY (11/10/2010 4:35 PM CDT) [facility] Hepatitis C Antibody Screen Nonreactive Nonreactive [facility] BLOOD SPECIMEN / Unknown 11/10/2010 4:35 PM CDT 11/10/2010 4:45 PM CDT Ladonna Vasques MD LAB - CHEMISTRY CRISTIANO HUFF Final Result [facility] [address] [place] [address] * CYTOLOGY CERVICAL/VAG SCREEN THIN PREP (11/10/2010 4:30 PM CDT) Comment Thin Prep [facility] Pap Smear Report See Scanned Report [facility] ENTIRE ENDOCERVIX / Unknown 11/10/2010 4:30 PM CDT 11/10/2010 4:45 PM CDT Narrative Resulting Agency Comment Performed By [facility]() [address] [place] [id number] Ladonna Vasques MD LAB - PATHOLOGY/CYTO LOGY ORDERABLES Final Result Performing Organization Address City/[facility] Co de Phone Number [facility] [address] [place] [address] from Last 3 Months or Most Recently Relevant to Health Maintenance Insurance [facility] Advance Directives * Full Code (Latest [...]
[2025-01-20 17:49] LABS: Alanine Aminotransferase 18 U/L (6-35); Albumin Level 4.5 g/dL (3.5-5.1); Alkaline Phosphatase 73 U/L (38-126); Anion Gap 11 mmol/L (4-12); Aspartate Amino Transferase 26 U/L (14-36); Bilirubin,Total 0.8 mg/dL (0.2-1.3); Blood Urea Nitrogen 16 mg/dL (7-17); Carbon Dioxide 20 mmol/L (22-30); Chloride 105 mmol/L (98-107); Estimated Glomerular Filt Rate > 60; Glucose 199 mg/dL (65-110); Sodium 136 mmol/L (137-145)
[2025-01-20 18:17] LABS: Thyroid Stimulating Hormone < 0.015 uIU/mL (0.465-4.680)
[2025-01-20 19:27] LABS: Free T4 Free Thyroxine 1.31 ng/dL (0.78-2.19)
== END 2025-01-20 15:11 | disposition home or self-care (01) ==
LOC: ANHLAB 15:11
PROVIDERS: PCP Family Medicine; Visit Provider Internal Medicine
DX: E05.90 Thyrotoxicosis, unspecified without thyrotoxic crisis or storm (principal); E10.65 Type 1 diabetes mellitus with hyperglycemia
CPT/HCPCS: 36415; 80053; 84439; 84443; 84480

== ENCOUNTER 2025-02-25 11:32 | Outpatient (CLI) | payer OTHER, SELFPAY ==
--- NOTE | ~2025-02-25 | XR_ITS ---
EXAM/ PROCEDURE: XR lumbar spine min 4V - 02/25/2025 11:49 CDT HISTORY: 39 years old Female with M54.16 - Radiculopathy, lumbar region COMPARISON: None available TECHNIQUE: 6 view(s) FINDINGS/ IMPRESSION: There are no fractures or dislocations.Intervertebral disc spaces are within normal limits. Battery seen in the pelvis. Reviewed, dictated and finalized at location A.
--- OUTSIDE RECORDS SUMMARY | 2025-02-25 11:35 | XMS_ITS | Encounter Summary ---
Author Organization [facility] Address [facility] [place] [address] Care Team Providers Care Diesel Retrofit Installer Name Role Phone Clinic, [facility] Primary Care Provider [phone] Sidney Vicente MD Primary Care Provider + [facility], [facility] Primary Care Provider [phone] Sidney Vicente MD Primary Care Provider + [facility], [facility] Primary Care Provider [phone] Sidney Vicente MD Primary Care Provider + Sharri Alonso MD Primary Care Provider [facility], [facility] Primary Care Provider [phone] [facility], [facility] Primary Care Provider [phone] Encounter Details Date Type Department Care Team (Late st Contact Info) Description 05/03/2010 Telephone [facility] [address] [place], [place] [id number] Liz Ramey MD [address] [phone] Social History Tobacco Use Types Packs/Day Years Used Date Smoking Tobacco: Every Day Cigarettes 0.5 10 Comments:interested in quitt ing Alcohol Use Standard Drinks/Week Comments No 0 (1 standard drink = 0.6 oz pur e alcohol) Comments Yes Sex and Gender Information Value Date Recorded Sex Assigned at Not on file Legal Sex Female 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 Gender Identity Not on file Sexual Orientation Not on file 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 Not on file Not on file documented as of this encounter Plan of Treatment Not on file documented as of this encounter Visit Diagnoses Not on filedocumented in this encounter Additional Health Concerns Infection Onset Date Last Indicated Resolved Time COVID-19 Under Investigation 11/22/2024 11/22/2024 11/22/2024 2:44 AM CDT documented as of this encounter Care Teams Diesel Retrofit Installer Relationship Specialty Start Date End Date [facility] [address] [place] [id number] PCP - General 04/17/10 05/13/10 Sidney Vicente MD [address], [address] [place], [place] [id number] PCP - General 05/14/10 05/15/10 [facility] Ob/[address] [id number] PCP - General 05/16/10 05/16/10 Sidney Vicente MD [address] [place], [place] [phone] PCP - General 05/17/10 05/17/10 [facility] [address] [place] [phone] PCP - General 05/18/10 06/13/10 Sidney Vicente MD [address], [address] [place], [place] [phone] PCP - General 06/14/10 09/21/10 Sharri Alonso MD [address] [phone] PCP - General 09/22/10 11/09/10 [facility] [address] [place] [id number] PCP - General 11/10/10 11/13/10 [facility], [facility] [address] [place] [id number] PCP - General 11/14/10 11/15/10 documented as of this encounter
--- OUTSIDE RECORDS SUMMARY | 2025-02-25 11:35 | XMS_ITS | Clinical Summary ---
Author Organization [facility] [employer] Address [address] 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 This disclosure is being madepursuant to the Care Everywhere program and may not contain all information available regarding this patient. Last updated 18.[employer] it [employer] Allergies No known active allergies Medications * [...] complication 10/06/2009 Overview (10/06/2009): 2 prior at [facility], pt wants repeat. Both LTCS. Need for vuapvss-rodfs-czfwxpo (MMR) vaccine 06/2010 Overview (01/17/2015): MMR after [...] Team Description 12/07/2024 Telephone Transitional Care at [address] [phone] Prema Broussard RN Missed Appointment 12/04/2024 Telephone Transitional Care at [address] [address] Jaci Echevarria MA Reminder Call 12/02/2024 Telephone Transitional Care at [address] [address] Emily Jose, detective private eye 12/02/2024 Telephone Transitional Care at [address] [address] Emily Jose, detective private eye 12/01/2024 Telephone Transitional Care at [address] [address] Emily Jose, detective private eye 11/22/2024 12:55 AM CDT - 11/30/2024 6:03 PM CDT Hospital Encounter [facility] 6S ACUTE [address] [place] [address] Madelaine Johnson MD Kumar, Ashwath, MD Halani, Varun, MD Mwangi, MD Kiki Delgadillo Joseph R, MD Hoque, Farzana, MD Hospitalist Discharge Disposition: Home or Self Care from Last 3 Months Immunizations Immunization Administration [...] and heating? Not hard at all 11/25/2024 [facility] [place] [facility] - Occupational Stress [...] any time in the past 12 m [facility], were you homeless or living in a snf (including now)? 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 [facility] Glucose WB/POC 233(H) 70 - 99 mg/dL 11/30/2024 4:58 PM CDT [facility] Specimen Type Cap Fingerstick 2024 4:58 PM T [facility] Blood BLOOD SPECIMEN / Unknown 11/30/2024 4:09 PM CDT 11/30/2024 4:58 PM CDT Constance Houser MD LAB - POINT OF CARE ORDERABLES Final Result [facility] [address] [place] [address], [facility] [phone] * (ABNORMAL) CBC W/O DIFFERENTIAL (11/30/2024 8:35 AM CDT) Only the most recent of5 resultswithin the time period is included. [facility] WBC 4.9 4.0 - 10.7 x10E9/L 11/30/2024 9:05 AM [facility] RBC Count 3.62(L) 3.90 - 5.20 x10E12/L 11/30/2024 9:05 AM [facility] Hemoglobin 8.9(L) 11.9 - 15.8 g/dL 11/30/2024 9:05 AM [facility] Hematocrit 27.5(L) 34.8 - 46.1 % 11/30/2024 9:05 AM [facility] MCV 76.0(L) 80.0 - 98.0 fL 11/30/2024 9:05 AM [facility] MCH 24.6(L) 26.7 - 33.6 pg 11/30/2024 9:05 AM [facility] MCHC 32.4 31.7 - 36.3 g/dL 11/30/2024 9:05 AM [facility] RDW-CV 15.3(H) 11.3 - 14.8 % 11/30/2024 9:05 AM [facility] Platelet Count 291 150 - 420 x10E9/L 11/30/2024 9:05 AM [facility] MPV 10.6 7.8 - 11.4 fL 11/30/2024 9:05 AM [facility] Blood BLOOD SPECIMEN / Unknown Lab Venipuncture / Unknown 11/30/2024 8:35 AM CDT 11/30/2024 9:00 AM T us Horacio Henao MD LAB - HEMATOLOGY ORDERABLES Fin al Result [facility] [address] [place] [address], [facility] [phone] * (ABNORMAL) RENAL FUNCTION PANEL (11/30/2024 8:35 AM [facility]) BUN 8 7 - 26 mg/dL 11/30/2024 9:43 AM [facility] Creatinine 0.46(L) 0.56 - 0.96 mg/dL 11/30/2024 9:43 AM [facility] Sodium 133(L) 136 - 145 mmol/L 11/30/2024 9:43 AM [facility] Potassium 4.2 3.5 - 4.5 mmol/L 11/30/2024 9:43 AM [facility] Chloride 101 98 - 107 mmol/L 11/30/2024 9:43 AM [facility] CO2 20(L) 22 - 29 mmol/L 11/30/2024 9:43 AM [facility] Glucose 335(H) 70 - 99 mg/dL 11/30/2024 9:43 AM [facility] Albumin 2.8(L) 3.4 - 5.0 g/dL 11/30/2024 9:43 AM [facility] Calcium 8.8 8.4 - 10.2 mg/dL 11/30/2024 9:43 AM [facility] Phosphorus 4.3 2.9 - 5.1 mg/dL 11/30/2024 9:43 AM CDT [facility] Anion Gap 12 6 - 16 11/30/2024 9:43 AM CDT [facility] BUN/Creatinine Ratio 17 7 - 23 11/30/2024 9:43 AM CDT [facility] Osmolality Calculated 287 275 - 295 mOsm/kg 11/30/2024 9:43 AM CDT [facility] eGFR by CKD-EPI >90 >=90 mL/min/1.7 3 m2 11/30/2024 9:43 AM CDT [facility] Blood BLOOD SPECIMEN / Unknown Lab Venipuncture / Unknown 11/30/2024 8:35 AM CDT 11/30/2024 9:09 AM CDT Sacha Swanson MD LAB - CHEMISTRY ORDERABLES Final Result [address] [address], [facility] [phone] * (ABNORMAL) MAGNESIUM BLOOD (11/30/2024 8:35 AM CDT) Only the most recent of10 resultswithin the time period is included. Magnesium 1.4(L) 1.6 - 2.6 mg/dL 11/30/2024 9:43 AM CDT [facility] Blood BLOOD SPECIMEN / Unknown Lab Venipuncture / Unknown 11/30/2024 8:35 AM CDT 11/30/2024 9:09 AM CDT us Sacha Swanson MD LAB - CHEMISTRY ORDERABLES Final Result [address] [address], [place] [phone] * (ABNORMAL) BASIC METABOLIC PANEL (CALCIUM TOTAL) (11/29/2024 11:35 AM CDT) Only the most recent of10 resultswithin the time period is included. BUN 6(L) 7 - 26 mg/dL 11/29/2024 12:11 PM [facility] Creatinine 0.50(L) 0.56 - 0.96 mg/dL 11/29/2024 12:11 PM [facility] Sodium 135(L) 136 - 145 mmol/L 11/29/2024 12:11 PM [facility] Potassium 4.0 3.5 - 4.5 mmol/L 11/29/2024 12:11 PM [facility] Chloride 102 98 - 107 mmol/L 11/29/2024 12:11 PM [facility] CO2 23 22 - 29 mmol/L 11/29/2024 12:11 PM [facility] Glucose 252(H) 70 - 99 mg/dL 11/29/2024 12:11 PM [facility] Calcium 8.4 8.4 - 10.2 mg/dL 11/29/2024 12:11 PM [facility] Anion Gap 10 6 - 16 11/29/2024 12:11 PM [facility] BUN/Creatinine Ratio 12 7 - 23 11/29/2024 12:11 PM [facility] Osmolality Calculated 286 275 - 295 mOsm/kg 11/29/2024 12:11 PM [facility] eGFR by CKD-EPI >90 >=90 mL/min/1.7 3 m2 11/29/2024 12:11 PM [facility] Blood BLOOD SPECIMEN / Unknown Venipuncture / Unknown 11/29/2024 11:35 AM CDT 11/29/2024 11:45 AM T Horacio Henao MD LAB - CHEMISTRY ORDERABLES Kimmy mc Result [facility] [address] [place] [address], [facility] [phone] * PHOSPHORUS BLOOD (11/29/2024 11:35 AM T) Only the most recent of9 resultswithin the time period is included. Phosphorus 3.8 2.9 - 5.1 mg/dL 11/29/2024 12:11 PM [facility] Blood BLOOD SPECIMEN / Unknown Venipuncture / Unknown 11/29/2024 11:35 AM CDT 11/29/2024 11:45 AM CDT Horacio Henao MD LAB - CHEMISTRY ORDERABLES Kimmy alexandro Result [address] [place] [address], [facility] [phone] * US THYROID (11/28/2024 1:45 PM CDT) Anatomical Region Laterality Modality Chest Ultrasound 11/28/2024 4:35 PM CDT Impressions 11/30/2024 9:58 AM CDT IMPRESSION: Multiple subcentimeter thyroid nodules. Diffusely heterogeneous thyroid echotexture with associated hyperemia of the thyroid parenchyma, suggestive of thyroiditis. > Dictated by Sandeep Sethi MD (president ergonomic consulting). Xander Valdes MD have personally reviewed and interpreted this examination/study. > Interpreting Provider: Xander Paiz MD on 11/30/2024 9:58 AM Narrative 11/30/2024 9:58 AM CDT PROCEDURE: US THYROID, DATE/TIME OF EXAM: 11/28/2024 2:27 PM, [facility] INDICATION: E05.90: Hyperthyroidism ADDITIONAL CLINICAL INFORMATION: Ordering [...] THYROID, DATE/TIME OF EXAM: 11/28/2024 2:27 PM, [facility] INDICATION: E05.90: Hyperthyroidism ADDITIONAL CLINICAL INFORMATION: [...] thyroiditis. > Dictated by Sandeep Sethi MD (president ergonomic consulting). I, Xander Paiz MD have personally reviewed and interpreted this examination/study. > Interpreting Provider: Xander Paiz MD on 11/30/2024 9:58 AM us Horacio Henao MD US ORDERABLES Final Result * (ABNORMAL) FOLATE (11/28/2024 12:18 PM CDT) Folate 37.7(H) 7.0 - 31.4 ng/mL 11/28/2024 2:30 PM CDT [facility] Comment:Result obtained by vishal rincon. Blood BLOOD SPECIMEN / Unknown Venipuncture / Unknown 11/28/2024 12:18 PM CDT 11/28/2024 12:41 PM CDT us Sacha Swanson MD LAB - CHEMISTRY ORDERABLES Final Result Performing Organization Address City/State/[facility] Co de Phone Number [address] [address], [facility] [phone] * (ABNORMAL) VITAMIN B12 (11/28/2024 12:18 PM CDT) Vitamin B12 1,133(H) 213 - 816 pg/mL 11/28/2024 1:53 PM CDT [facility] Blood BLOOD SPECIMEN / Unknown Venipuncture / Unknown 11/28/2024 12:18 PM CDT 11/28/2024 12:41 PM CDT us Sacha Swanson MD LAB - CHEMISTRY ORDERABLES Final Result [address] [address], [place] [phone] * (ABNORMAL) IRON + TRANSFERRIN PANEL (11/28/2024 12:18 PM CDT) Iron 46 40 - 150 ug/dL 11/28/2024 1:21 PM CDT [facility] Transferrin 243 174 - 382 mg/dL 11/28/2024 1:21 PM CDT [facility] Transferrin Saturation % 15(L) 16 - 50 % 11/28/2024 1:21 PM CDT [facility] TIBC Calculated 304 240 - 450 ug/dL 11/28/2024 1:21 PM CDT [facility] Blood BLOOD SPECIMEN / Unknown Venipuncture / Unknown 11/28/2024 12:18 PM CDT 11/28/2024 12:38 PM CDT us Sacha Swanson MD LAB - CHEMISTRY ORDERABLES Final Result [address] [address], [place] [phone] * FERRITIN (11/28/2024 12:18 PM CDT) Ferritin 17 13 - 204 ng/mL 11/28/2024 1:38 PM CDT [facility] Blood BLOOD SPECIMEN / Unknown Venipuncture / Unknown 11/28/2024 12:18 PM CDT 11/28/2024 12:38 PM CDT Sacha Swanson MD LAB - CHEMISTRY ORDERABLES Final Result [address] [address], [place] [phone] * ACTH 60 MINUTES (11/28/2024 9:22 AM CDT) Cortisol 60 Min 23.7 >=20.0 mcg/dL 11/28/2024 10:22 AM CDT [facility] Blood BLOOD SPECIMEN / Unknown Venipuncture / Unknown 11/28/2024 9:22 AM CDT 11/28/2024 9:38 AM CDT Horacio Henao MD LAB - CHEMISTRY ORDERABLES Kimmy l Result Performing Organization Address City/[facility]/ZIP Co de Phone Number [address] [address], [place] [phone] * (ABNORMAL) ACTH 30 MINUTES (11/28/2024 8:49 AM CDT) Cortisol 30 Min 19.8(L) >=20.0 mcg/dL 11/28/2024 10:02 AM CDT [facility] Blood BLOOD SPECIMEN / Unknown Venipuncture / Unknown 11/28/2024 8:49 AM CDT 11/28/2024 9:18 AM CDT Horacio Henao MD LAB - CHEMISTRY ORDERABLES Kimmy l Result Performing Organization Address City/[facility]/ZIP Co de Phone Number [address] [address], [place] [phone] * ACTH CORTISOL BASELINE (11/28/2024 8:14 AM CDT) Cortisol Baseline 7.8 No Reference Range Established mcg/dL 11/28/2024 9:14 AM CDT [facility] Blood BLOOD SPECIMEN / Unknown Venipuncture / Unknown 11/28/2024 8:14 AM CDT 11/28/2024 8:28 AM CDT us Horacio Henao MD LAB - CHEMISTRY ORDERABLES Kimmy l Result Performing Organization Address City/[facility]/ZIP Co de Phone Number [address] [address], [place] [phone] * (ABNORMAL) THYROID PEROXIDASE ANTIBODY (11/28/2024 4:26 AM CDT) [facility] Thyroid Peroxidase TPO Antibody 465.3(H) 0.0 - 9.0 IU/mL 11/29/2024 11:50 PM CDT [facility] ([facility]) Comment: Performed By: [place] [address] Experience Planning Strategist: Zana Guardado MD, PhD CLIA Number: [id number] Blood BLOOD SPECIMEN / Unknown Venipuncture / Unknown 11/28/2024 4:26 AM CDT 11/28/2024 4:37 AM CDT Horacio Henao MD LAB - CHEMISTRY ORDERABLES Kimmy mc Result [facility]) [address] [place] [address] * (ABNORMAL) THYROID STIMULATING IMMUNOGLOBULIN (TSI) (11/28/2024 4:26 AM CDT) [facility] Thyroid Stimulating Immunoglobulin TSI 5.13(H) <=0.54 IU/L 11/30/2024 10:35 PM CDT [facility] ([facility]) Comment: INTERPRETIVE INFORMATION: Thyroid Stimulating Immunoglobulin [...] medical history, and other findings. Performed By: [place] [address] Experience Planning Strategist: Zana Guardado MD, PhD CLIA Number: [id number] Blood BLOOD SPECIMEN / Unknown Venipuncture / Unknown 11/28/2024 4:26 AM CDT 11/28/2024 4:37 AM CDT Horacio Henao MD LAB - CHEMISTRY ORDERABLES Kimmy l Result [facility]) [address] [place] [address] * (ABNORMAL) T3 FREE (11/28/2024 4:26 AM CDT) Pathologist [facility] T3 Free 5.5(H) 1.7 - 3.7 pg/mL 11/28/2024 5:34 AM CDT [facility] Blood BLOOD SPECIMEN / Unknown Venipuncture / Unknown 11/28/2024 4:26 AM CDT 11/28/2024 4:43 AM CDT Horacio Henao MD LAB - CHEMISTRY ORDERABLES Kimmy l Result Performing Organization Address City/[facility]/ZIP Co de Phone Number [address] [address], [facility] [phone] * (ABNORMAL) TSH RECEPTOR ANTIBODY (11/28/2024 4:26 AM CDT) [facility] TSH Receptor Antibody 5.37(H) <=1.75 IU/L 11/30/2024 3:50 PM CDT [facility] ([facility]) Comment: Performed By: [facility] [address] [place] [address] Experience Planning Strategist: Zana Guardado MD, PhD CLIA Number: [id number] Blood BLOOD SPECIMEN / Unknown Venipuncture / Unknown 11/28/2024 4:26 AM CDT 11/28/2024 4:37 AM CDT us Horacio Henao MD LAB - CHEMISTRY ORDERABLES Kimmy l Result Performing Organization Address City/[facility]/ZIP Co de Phone Number [email or web address] [facility]) [address] [place] [address] * (ABNORMAL) TSH (11/28/2024 4:26 AM CDT) Pathologist [facility] TSH <0.010(L) 0.350 - 4.940 uIU/mL 11/28/2024 5:34 AM CDT [facility] Blood BLOOD SPECIMEN / Unknown Venipuncture / Unknown 11/28/2024 4:26 AM CDT 11/28/2024 4:43 AM CDT Horacio Henao MD LAB - CHEMISTRY ORDERABLES Kimmy l Result [facility] [address] [place] [address], [place] [phone] * (ABNORMAL) T4 FREE (11/28/2024 4:26 AM CDT) Only the most recent of2 resultswithin the time period is included. T4 Free 2.0(H) 0.7 - 1.5 ng/dL 11/28/2024 5:34 AM CDT [facility] Blood BLOOD SPECIMEN / Unknown Venipuncture / Unknown 11/28/2024 4:26 AM CDT 11/28/2024 4:43 AM CDT Horacio Henao MD LAB - CHEMISTRY ORDERABLES Kimmy l Result Performing Organization Address [facility]/ZIP Co de Phone Number [address] [address], [place] [phone] * (ABNORMAL) T4 TOTAL (11/28/2024 4:26 AM CDT) T4 Total 12.80(H) 4.50 - 11.70 ug/dL 11/30/2024 12:35 PM CDT [facility] ([facility]) Comment: Performed By: [facility] [address] [place] [id number] Experience Planning Strategist: Zana Guardado MD, PhD CLIA Number: [id number] Blood BLOOD SPECIMEN / Unknown Venipuncture / Unknown 11/28/2024 4:26 AM CDT 11/28/2024 4:37 AM CDT Horacio Henao MD LAB - CHEMISTRY ORDERABLES Kimmy l Result [facility]) [address] [place] [address] * (ABNORMAL) T3 TOTAL (11/28/2024 4:26 AM CDT) T3 Total 237(H) 80 - 200 ng/dL 11/30/2024 5:27 PM CDT [facility] ([facility]) Comment: REFERENCE INTERVAL: Triiodothyronine, Total (Total T3) Access complete set of age- and/or gender-specific reference intervals for this test in the [facility] Laboratory Test Directory ([place]). Performed By: [facility] [employer] [address] [place] [address] Experience Planning Strategist: Zana Guardado MD, PhD CLIA Number: [id number] Blood BLOOD SPECIMEN / Unknown Venipuncture / Unknown 11/28/2024 4:26 AM CDT 11/28/2024 4:37 AM CDT Horacio Henao MD LAB - CHEMISTRY ORDERABLES Kimmy l Result Performing Organization Address City/[facility]/ZIP Co de Phone Number [facility]) [address] [place] [address] * (ABNORMAL) CORTISOL BLOOD AM (11/28/2024 4:26 AM CDT) [facility] Cortisol AM 2.8(L) 3.7 - 19.4 ug/dL 11/28/2024 5:33 AM CDT [facility] Blood BLOOD SPECIMEN / Unknown Venipuncture / Unknown 11/28/2024 4:26 AM CDT 11/28/2024 4:43 AM CDT Narrative [facility] - 11/28/2024 5:33 AM CDT Normal cortisol levels are generally highest in the morning hours and lowest from late evening through the steel buffer hours (8 PM to 4 AM). The PM measurements of cortisol run approximately one-half to one-third of the AM values. Horacio Henao MD LAB - CHEMISTRY ORDERABLES Kimmy l Result Performing Organization Address City/[facility]/ZIP Co de Phone Number [address] [address], [facility] [phone] * (ABNORMAL) HYDROXYBUTYRATE BETA (11/27/2024 12:08 PM CDT) Beta-Hydroxybu tyrate 1.72(H) <0.50 mmol/L 11/27/2024 12:45 PM CDT [facility] Blood BLOOD SPECIMEN / Unknown Venipuncture / Unknown 11/27/2024 12:08 PM CDT 11/27/2024 12:16 PM CDT Horacio Henao MD LAB - CHEMISTRY ORDERABLES Kimmy l Result [facility] [address] [place] [address], [facility] [phone] * EKG 12-LEAD (11/27/2024 10:58 AM CDT) [facility] Ventricular Rate 96 BPM [facility] MUSE Atrial Rate 96 BPM [facility] P-R Interval 142 ms [facility] QRS Duration ms 70 ms [facility] Q-T Interval ms 364 ms [facility] QTC Calculation (Bezet) 459 ms [facility] M[facility] Calculated P [place] 55 degrees [facility] Calculated R [place] 9 degrees [facility] Calculated T [place] 44 degrees [facility] Interpretation EKG NORMAL SINUS RHYTHM NORMAL ECG WHEN COMPARED WITH ECG OF 25-NOV-2024 08:15, Heart rate is slower with lateral injury pattern no longer present Confirmed by MARY GRACE JARQUIN DO ([id number]) on 12/06/2024 5:44:03 PM [facility] 11/27/2024 10:5 8 AM CDT 12/06/2024 5:44 PM CDT Horacio Henao MD ECG ORDERABLES Edited Result - Final [facility] * (ABNORMAL) URINALYSIS REFLEX TO MICROSCOPIC NO CULTURE (11/27/2024 10:48 AM CDT) Pathologist [facility] Color UA Colorless(A ) Yellow, Straw 11/27/2024 11:14 AM [facility] Clarity UA Clear Clear 11/27/2024 11:14 AM [facility] Glucose UA 4+(A) Normal 11/27/2024 11:14 AM [facility] Bilirubin UA Negative Negative 11/27/2024 11:14 AM [facility] Ketone UA 1+(A) Negative 11/27/2024 11:14 AM [facility] Specific [place] UA 1.006 1.005 - 1.030 11/27/2024 11:14 AM [facility] Blood UA 3+(A) Negative 11/27/2024 11:14 AM [facility] pH UA 5.5 5.0 - 9.0 pH 11/27/2024 11:14 AM [facility] Protein UA Negative Negative 11/27/2024 11:14 AM [facility] Urobilinogen UA Normal Normal mg/dL 11/27/2024 11:14 AM [facility] Nitrite UA Negative Negative 11/27/2024 11:14 AM [facility] Leukocyte Esterase UA Negative Negative 11/27/2024 11:14 AM [facility] RBC UA 11-20(A) 0 - 5 # /hpf 11/27/2024 11:14 AM [facility] WBC UA 0-5 0 - 5 # /hpf 11/27/2024 11:14 AM [facility] Bacteria UA Trace(A) None Seen 11/27/2024 11:14 AM [facility] Squamous Epithelial Cells 0-2 0 - 5 /hpf 11/27/2024 11:14 AM [facility] Urine URINE SPECIMEN OBTAINED BY CLEAN CATCH PROCEDURE / Unknown Collection / Unknown 11/27/2024 10:48 AM T 11/27/2024 10:53 AM [facility] us Horacio Henao MD LAB - URINALYSIS ORDERABLES Fin al Result [facility] [address] [place] [address], [facility] [phone] * UREA NITROGEN URINE RANDOM (11/27/2024 10:48 AM CDT) Urea Nitrogen Random Urine 78 Not Established mg/dL 11/27/2024 11:18 AM CDT [facility] Urine URINE SPECIMEN OBTAINED BY CLEAN CATCH PROCEDURE / Unknown Collection / Unknown 11/27/2024 10:48 AM CDT 11/27/2024 11:05 AM CDT Horacio Henao MD LAB - URINE CHEMISTRY ORDERABLE S Final Result [address] [address], [place] [phone] * OSMOLALITY URINE (11/27/2024 10:48 AM CDT) Osmolality Urine 258 50 - 1,200 mOsm/kg 11/27/2024 11:55 AM CDT [facility] Urine URINE SPECIMEN OBTAINED BY CLEAN CATCH PROCEDURE / Unknown Collection / Unknown 11/27/2024 10:48 AM CDT 11/27/2024 11:05 AM CDT Horacio Henao MD LAB - URINE CHEMISTRY ORDERABLE S Final Result [address] [address], [place] [phone] * LYTES (NA K CL) URINE RANDOM PANEL (11/27/2024 10:48 AM CDT) Sodium Urine 65 Not Established mmol/L 11/27/2024 11:18 AM CDT [facility] Potassium Urine 10.6 Not Established mmol/L 11/27/2024 11:18 AM CDT [facility] Chloride Random Urine 65 Not Established mmol/L 11/27/2024 11:18 AM CDT [facility] Urine URINE SPECIMEN OBTAINED BY CLEAN CATCH PROCEDURE / Unknown Collection / Unknown 11/27/2024 10:48 AM CDT 11/27/2024 11:05 AM CDT Horacio Henao MD LAB - URINE CHEMISTRY ORDERABLE S Final Result Performing Organization Address City/[facility]/ZIP Co de Phone Number [address] [address], [facility] [phone] * CREATININE URINE RANDOM (11/27/2024 10:48 AM CDT) Creatinine Urine 7.06 Not Established mg/dL 11/27/2024 11:18 AM CDT [facility] Urine URINE SPECIMEN OBTAINED BY CLEAN CATCH PROCEDURE / Unknown Collection / Unknown 11/27/2024 10:48 AM CDT 11/27/2024 11:05 AM CDT Horacio Henao MD LAB - URINE CHEMISTRY ORDERABLE S Final Result Performing Organization Address [facility] Co de Phone Number [address] [address], [facility] [phone] * CT Head Wo Contrast (11/27/2024 9:41 AM CDT) Anatomical Region Laterality Modality Head Computed Tomogra phy 11/27/2024 9:52 AM CDT Impressions 11/27/2024 10:51 AM CDT IMPRESSION: 1. No acute intracranial hemorrhage, midline shift, or significant mass effect. Report was dictated by Jason Espinosa MD, ([facility] resident). I, Bello Sullivan MD have personally reviewed and interpreted this examination/study. > Interpreting Provider: Bello Sullivan MD on 11/27/2024 10:51 AM Narrative 11/27/2024 10:51 AM CDT PROCEDURE: CT HEAD WO CONTRAST, DATE/TIME OF EXAM: 11/27/2024 9:42 AM, LOCATION [facility] INDICATION: E08.10: Diabetic ketoacidosis without coma associated [...] DATE/TIME OF EXAM: 11/27/2024 9:42 AM, LOCATION [facility] INDICATION: E08.10: Diabetic ketoacidosis without coma associated [...] FREE T4 (11/27/2024 8:20 AM CDT) Pathologist [facility] TSH <0.010(L) 0.350 - 4.940 uIU/mL 11/27/2024 9:46 AM CDT [facility] Blood BLOOD SPECIMEN / Unknown Venipuncture / Unknown 11/27/2024 8:20 AM CDT 11/27/2024 8:57 AM CDT Horacio Henao MD LAB - CHEMISTRY ORDERABLES Kimmy l Result Performing Organization Address [facility]/ZIP Co de Phone Number [address] [address], [facility] [phone] * (ABNORMAL) HEMOGLOBIN A1C (11/23/2024 3:50 AM CDT) Pathologist [facility] Hemoglobin A1c 6.9(H) <=5.6 % 11/23/2024 9:16 AM T [facility] Estimated Average Glucose 151 mg/dL 11/23/2024 9:16 AM [facility] Comment: HbA1c Interpretation: Normal : < 5.7% Pre-diabetes: 5.7-6.4% Diabetes: Equal to or greater than 6.5% Test results diagnostic of diabetes should be repeated for confirmation. Treatment target values recommended by ADA and other clinical organizations should be used to evaluate metabolic control in patients. Reference: [place] Diabetes Association, Standards of Care in Diabetes [...] ORDERABLES Kimmy l Result Performing Organization Address City/[facility]/ZIP Co de Phone Number [address] [address], [place] [phone] * HIV-1 HIV-2 ANTIBODY (11/10/2010 4:35 PM CDT) HIV-1/HIV-2 Nonreactive Nonreactive [facility] BLOOD SPECIMEN / Unknown 11/10/2010 4:35 PM CDT 11/10/2010 4:45 PM CDT Ladonna Vasques MD LAB - CHEMISTRY ORDChas HUFF Final Result Performing Organization Address City/[facility] Co de Phone Number [facility] [address] [place] [phone] * HEPATITIS C ANTIBODY (11/10/2010 4:35 PM CDT) Hepatitis C Antibody Screen Nonreactive Nonreactive [facility] BLOOD SPECIMEN / Unknown 11/10/2010 4:35 PM CDT 11/10/2010 4:45 PM CDT Ladonna Vasques MD LAB - CHEMISTRY CRISTIANO HUFF Final Result Performing Organization Address [facility] Co de Phone Number [facility] [address] [place] [phone] * CYTOLOGY CERVICAL/VAG SCREEN THIN PREP (11/10/2010 4:30 PM CDT) Comment Thin Prep [facility] Pap Smear Report See Scanned Report [facility] ENTIRE ENDOCERVIX / Unknown 11/10/2010 4:30 PM CDT 11/10/2010 4:45 PM CDT Narrative Resulting Agency Comment Performed By BRAY[facility]() [address], [place] [address] Ladonna Vasques MD LAB - PATHOLOGY/CYTO LOGY ORDERABLES Final Result Performing Organization Address City/[facility] Co de Phone Number [facility] [address] [place] [phone] from Last 3 Months or Most Recently Relevant to Health Maintenance Insurance [facility] Advance Directives * Full Code (Latest [...]
--- OUTSIDE RECORDS SUMMARY | 2025-02-25 11:36 | XMS_ITS | Clinical Summary ---
Author Organization [facility] Facility Address [address] [address] Care Team Providers Care Char Belt Operator Name Role Phone Janak Adams MD Primary Care Provider [phone] Social History Tobacco Use Types Packs/Day Years [...] (Season Ended) 2025 06/24/20 18, 05/11/2016 Insurance [place] Medicaid Care Teams Char Belt Operator Relationship Specialty Start Date End Date Janak Adams MD [address] [place] [address] PCP - General Endocrinology 02/25/24
--- OUTSIDE RECORDS SUMMARY | 2025-02-25 11:36 | XMS_ITS | Clinical Summary ---
Author Organization [facility] Address [address], [address] [address] Phone Care Team Providers Care Gold Nib Grinder Name Role Phone Unavailable Primary Care Provider [...] Comments Blood Pressure 118/74 07/01/2017 1:18 PM CASH APPLICATION REPRESENTATIVE Pulse 77 07/01/2017 1:18 PM CASH APPLICATION REPRESENTATIVE Temperature 36.2 C (97.2 F) 07/11/2016 9:24 AM CASH APPLICATION REPRESENTATIVE Respiratory Rate 18 07/01/2017 1:18 PM CASH APPLICATION REPRESENTATIVE Oxygen Saturation 97% 07/01/2017 1:18 PM CASH APPLICATION REPRESENTATIVE Inhaled Oxygen Concentration - - Weight 70.3 kg (155 lb) 07/01/2017 1:18 PM CASH APPLICATION REPRESENTATIVE Height 162.6 cm (5' 4) 07/01/2017 1:18 PM CASH APPLICATION REPRESENTATIVE Body Mass Index 26.61 07/01/2017 1:18 PM CASH APPLICATION REPRESENTATIVE Plan of Treatment Health Maintenance Due Date Last Done Comments Hepatitis C Virus (HCV) Screening 1987 Human Papillomavirus (HPV) Immunization (1 - 3-dose series) 2002 SARS-COV-2 Immunization ( season) 2024 Influenza Immunization (Season Ended) 2025 06/24/2018, 05/11/2016 Respiratory Syncytial Virus (RSV) Immunization (Adult) (1 [...] age to complete this topic Insurance MEDICAID [place]
== END 2025-02-25 11:33 | disposition home or self-care (01) ==
PROVIDERS: PCP Family Medicine; Visit Provider Family Medicine
DX: M54.16 Radiculopathy, lumbar region (principal)
CPT/HCPCS: 72110

== ENCOUNTER 2025-04-19 13:58 | Outpatient (CLI) | payer OTHER, SELFPAY ==
--- OUTSIDE RECORDS SUMMARY | 2007-08-13 04:36 | XMS_ITS | Continuity of Care Document ---
Author Organization [facility] [place] Address [address] [place] [address] [place] [address] Phone Care Team Providers Care Police Captain Senior Name Role Phone Kris Faith MD Unavailable Unavailable Procedures Procedure Date Eye Exam & Treatment Advance Directives Directive Yes / No Effective Date File Name No Information Encounters Encounter Description Practice Location Reason(s) For Visit Diagnoses Date Provider Providers Copied on Encounter [facility], [address], [place], [place], [address], [place] tel:[phone] SEC Zeus Waters No Information 9200 7 Marcell Ponce. [address] [facility] [address], [place], [place], [address], [place]. tel:[phone] Family History Family Member Type Diagnosis Age At Onset No Information Payers Payer name Insurance type Covered democrat ID Authoriza ticullen(s) [facility] CI [id number] Social History Type Description Quantity Date Captured Comments Sex Female Smoking Status No Information Chief Complaint And Reason For Visit No Information Reason For Referral Reason For Referral No Information History Of Present Illness Encounter Date Complaint History Of Prese nt Illness No Information Functional Status Date Functional Assessmen t No Information Instructions Date Instruction Additional Infor mation No Information Assessments Type Assessment Date No Information Patient Care Teams Name Effective Dates (start - stop) Status Members No Information
--- OUTSIDE RECORDS SUMMARY | 2011-04-30 19:00 | XMS_ITS | Continuity of Care Document ---
Author Organization [facility] Address [address] [place] [address] Phone Care Team Providers Care Prison Guard Supervisor Name Role Phone Conversion MD, Doctor Unavailable Unavailabl e Allergies, Adverse Reactions, Alerts Substance Reaction Status Criticality No Known Drug Allergies Other Active No I nformation Medications Medication Instructions Dosage Effective Dates (start - stop) Status Comments INSULIN PUMP EA 0 DIRECTE - Active AUGMENTIN 875-125MG TABS 1 BID - No Longer Active AUGMENTIN 875-125MG TABS 1 BID - No Longer Active CEPHALEXIN 500MG CAPS 1 QID - No Longer Active CIPRO 500MG TABS 1 BID - No Longer Active AMITRIPTYLINE HCL 25MG TABS 1 QHS - No Longer Active ATENOLOL 25MG TABS 1 QD - No Longer Active MAXALT 10MG TABS 1 DIRECTE - No Longer Active NAPROXEN 500MG TABS 1 BID 005 - No Longer Active TESSALON PERLE 100MG CAPS 1 TID - No Longer Active AMOXICILLIN 500MG CAPS 1 TID - No Longer Active HUMULIN R 100U/ML U 10 QAM - No Longer Active HUMULIN R 100U/ML U 7 QPM - No Longer Active HUMULIN N 100U/ML U 21 QAM - No Longer Active HUMULIN N 100U/ML U 20 QPM - No Longer Active Advance Directives Directive Yes / No Effective Date File Name No Information Encounters Encounter Description Practice Location Reason(s) For Visit Diagnoses Date Provider Providers Copied on Encounter [facility], [address], [place], [place], [address], tel:[phone] Conversion Department No Information 6201 1 Conversion Doctor. [facility] [place], [address], [place]. [facility], [address], [place], [place], [address], tel:[phone] [facility] ACUTE URI NOS 5200 8 Conversion Doctor. [address] [place] [address], [address], . [facility], [address], [place], [place], [address], tel:[phone] [facility] CARBUNCLE OF TRUNK 2200 7 Chuy Aadmson. [address] [facility], 4th Floor, [place], [place], [address], [place]. tel:[phone] [facility], [address], [place], [place], [address], [place] tel:[phone] [facility] HAIR DISEASES NEC 4-[address], [place], [place], [address], [place]. tel:[phone] [facility], [address], [place], [place], [address], [place] tel:[phone] [facility] DMI WO CMP NT ST UNCNTRL 4-200 7 Conversion Doctor. [address] [place] [address], [address], [place]. [facility], [address], [place], [place], [address], tel:[phone] [facility] URIN TRACT INFECTION NOS 8-[address], [place], [place], [address], . tel:[phone] [facility], [address], [place], [place], [address], tel:[phone] [facility] OTALGIA NOS 2[address] 6 Michael Khan. [address], [address], [place], [place], [address], . tel:[phone] [facility], [address], [place], [place], [address], tel:[phone] [facility] MGRN WO AURA WO NTRC MGR Nov-2 2-200 5 Michael Khan. [address], [address], [place], [place], [address], . tel:[phone] [facility], [address], [place], [place], [address], tel:[phone] [facility] No Information [address] Khan[address], [place], [place], [address], [place]. tel:[phone] [facility], [address], [place], [place], [address], [place] tel:[phone] [facility] PREG STATE, INCIDENTAL [address] [facility]. [address] [facility], [facility] [address], [place], [place], [address], . tel:[phone] [facility] [employer] [facility], [address], [place], [place], [address], [place] tel:[phone] [facility] ALLERGIC RHINITIS NOS 2 6200 1 Leonarda Leonard. [address], [place], [place], [address], . tel:[phone] Family History Family Member Type Diagnosis Age At Onset No Information Immunizations Vaccine Date Status Comments 50846 - TD administered Source: Source Unspecified 50686 - Influenza administered Source: So urce Unspecified 35713 - Influenza administered Source: So urce Unspecified 41321 - Influenza administered Source: So urce Unspecified 95168 - Influenza administered Source: So urce Unspecified 70579 - Hepatitis_B administered Source: Source Unspecified 25843 - Hepatitis_B administered Source: Source Unspecified 86125 - Hepatitis_B administered Source: Source Unspecified 74567 - DTaP_DTP_DT_PEDS administered Kiana rce: Source Unspecified 17907 - Polio_OPV_IPV administered Source : Source Unspecified 98873 - MMR administered Source: Source Unspecified 82277 - Polio_OPV_IPV administered Source : Source Unspecified 94490 - DTaP_DTP_DT_PEDS administered Kiana rce: Source Unspecified 86919 - Hib administered Source: Source Unspecified 53499 - DTaP_DTP_DT_PEDS administered Kiana rce: Source Unspecified 56211 - MMR administered Source: Source Unspecified 52192 - DTaP_DTP_DT_PEDS administered Kiana rce: Source Unspecified 76785 - Polio_OPV_IPV administered Source : Source Unspecified 71879 - DTaP_DTP_DT_PEDS administered Kiana rce: Source Unspecified 97282 - Polio_OPV_IPV administered Source : Source Unspecified Payers Payer name Insurance type Covered alliance party ID Authoriza tion(s) No Information Social History Type Description Quantity Date Captured [...]
--- OUTSIDE RECORDS SUMMARY | 2025-04-19 14:03 | XMS_ITS | Clinical Summary ---
Author Organization [facility] Address [address], [address] [address] Phone Care Team Providers Care Conference Manager Name Role Phone Unavailable Primary Care [...] Comments Blood Pressure 118/74 07/01/2017 1:18 PM MOTORCYCLE MAKER Pulse 77 07/01/2017 1:18 PM MOTORCYCLE MAKER Temperature 36.2 C (97.2 F) 07/11/2016 9:24 AM MOTORCYCLE MAKER Respiratory Rate 18 07/01/2017 1:18 PM MOTORCYCLE MAKER Oxygen Saturation 97% 07/01/2017 1:18 PM MOTORCYCLE MAKER Inhaled Oxygen Concentration - - Weight 70.3 kg (155 lb) 07/01/2017 1:18 PM MOTORCYCLE MAKER Height 162.6 cm (5' 4) 07/01/2017 1:18 PM MOTORCYCLE MAKER Body Mass Index 26.61 07/01/2017 1:18 PM MOTORCYCLE MAKER Plan of Treatment Health Maintenance Due Date Last Done Comments Hepatitis C Virus (HCV) Screening 1987 Pap Smear 2008 Human Papillomavirus (HPV) Immunization (1 - 3-dose SCDM series) 2014 Cervical Cancer Screening (CCS) 2017 HPV/Cotest 2017 SARS-COV-2 Immunization ( season) 2024 Influenza Immunization (#1) 2025 06/24/2018, 0 05/11/2016 Respiratory Syncytial Virus (RSV) Immunization (Adult) [...]
--- OUTSIDE RECORDS SUMMARY | 2025-04-19 14:03 | XMS_ITS | Clinical Summary ---
Author Organization [facility] Facility Address [address] [address] Care Team Providers Care Wrong Address Clerk Name Role Phone Janak Adams MD Primary Care Provider [phone] Social History Tobacco Use Types Packs/Day Years [...] Visual Foot Exam 04/01/2023 Influenza Vaccine (#1) 2025 06/24/2018, 2015 Insurance [place] Medicaid Care Teams Wrong Address Clerk Relationship Specialty Start Date End Date Janak Adams MD [address] [place] [address] PCP - General Endocrinology 02/25/24
--- OUTSIDE RECORDS SUMMARY | 2025-04-19 14:03 | XMS_ITS | Encounter Summary ---
Author Organization [facility] Address [facility] [place] [address] Care Team Providers Care Renewable Energy Consultant Name Role Phone Clinic, [facility] Primary Care Provider [phone] Sidney Vicente MD Primary Care Provider + [facility], [facility] Primary Care Provider [phone] Sidney Vicente MD Primary Care Provider + [facility], [facility] Primary Care Provider [phone] Sidney Vicente MD Primary Care Provider + Sharri Alonso MD Primary Care Provider [facility], [facility] Primary Care Provider [phone] [facility], [facility] Primary Care Provider [phone] Encounter Details Date Type Department Care Team (Late st Contact Info) Description 05/03/2010 Telephone [facility] [address] [place], [place] [phone] Liz Ramey MD [address] [address] Social History Tobacco Use Types Packs/Day Years Used Date Smoking Tobacco: Every Day Cigarettes 0.5 10 Comments:interested in quitt ing Alcohol Use Standard Drinks/Week Comments No 0 (1 standard drink = 0.6 oz pur e alcohol) Comments Yes Sex and Gender Information Value Date Recorded Sex Assigned at Not on file Legal Sex Female 6:26 AM 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 Gender Identity Not on file Sexual Orientation Not on file 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 Not on file Not on file documented as of this encounter Plan of Treatment Not on file documented as of this encounter Visit Diagnoses Not on filedocumented in this encounter Additional Health Concerns Infection Onset Date Last Indicated Resolved Time COVID-19 Under Investigation 11/22/2024 11/22/2024 11/22/2024 2:44 AM CDT documented as of this encounter Care Teams Renewable Energy Consultant Relationship Specialty Start Date End Date [facility] [address] [place] [address] PCP - General 04/17/10 05/13/10 Sidney Vicente MD [address] [place], [place] [address] PCP - General 05/14/10 05/15/10 [facility] Ob/[address] [address] PCP - General 05/16/10 05/16/10 Sidney Vicente MD [address] [place], [place] [address] PCP - General 05/17/10 05/17/10 [facility] [address] [place] [address] PCP - General 05/18/10 06/13/10 Sidney Vicente MD [address], [address] [place], [place] [address] PCP - General 06/14/10 09/21/10 Sharri Alonso MD [address] [phone] PCP - General 09/22/10 11/09/10 [facility] [address] [place] [address] PCP - General 11/10/10 11/13/10 [facility], [facility] [address] [place] [address] PCP - General 11/14/10 11/15/10 documented as of this encounter
--- OUTSIDE RECORDS SUMMARY | 2025-04-19 14:03 | XMS_ITS | Clinical Summary ---
Author Organization [facility] Address [address] [place] [address] Care Team Providers Care Manager Relationship Name Role Phone Unavailable Primary Care Provider Unavailabl e Source Comments [facility],non-owned Affiliates and Associated Physician Practices is amultiple site organization consisting of ambulatory clinics and hospital sitesin [place], [place], [place] and [place]. This disclosure is being madepursuant to the Care Everywhere program and may not contain all information available regarding this patient. Last updated 05/16/18.500Indies Allergies No known active allergies Medications * [...] complication 10/06/2009 Overview (10/06/2009): 2 prior at [facility], pt wants repeat. Both LTCS. Need for amjhzqu-eyznf-tkraing (MMR) vaccine 06/2010 Overview (01/17/2015): MMR after [...] Encounters Date Type Department Care Team Description 02/27/2025 Refill [facility] 6S ACUTE [address] [place] [address] Estuardo Shell MD Refill Request from Last 3 Months Immunizations Immunization Administration [...] and heating? Not hard at all 11/25/2024 [facility] - Occupational Stress [...] any time in the past 12 m [facility], were you homeless or living in a nursing home (including now)? 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 Not on file Not [...] SCREENING 11/22/2024 DIABETES-FOOT EXAM WITH MONOFILAMENT 11/22/2024 INFLUENZA VACCINE (#1) 2025 , 08/12/2020, 06/24/2018, Additional history exists DIABETES-HGB A1C 05/25/2025 11/23/2024, 01/2017, 04/24/2010, Additional [...] Procedure Name Priority Date/Time Associated Diagnosis Comments RENAL FUNCTION PANEL AM Draw 11/30/2024 8:35 AM CDT HEMOGLOBIN A1C Routine 11/23/2024 3:50 AM CDT Nausea and vomiting, unspecified vomiting type HEPATITIS C ANTIBODY Today 11/10/2010 4:35 PM CDT HIV-1 HIV-2 ANTIBODY Today 11/10/2010 4:35 PM CDT CYTOLOGY CERVICAL/VAG PAP SCREEN THIN PREP Today 11/10/2010 4:30 PM CDT from Last 3 Months or Most Recently Relevant to Health Maintenance Results * (ABNORMAL) RENAL FUNCTION PANEL (11/30/2024 8:35 AM CDT) BUN 8 7 - 26 mg/dL 11/30/2024 9:43 AM [facility] Creatinine 0.46(L) 0.56 - 0.96 mg/dL 11/30/2024 9:43 AM [facility] Sodium 133(L) 136 - 145 mmol/L 11/30/2024 9:43 AM [facility] Potassium 4.2 3.5 - 4.5 mmol/L 11/30/2024 9:43 AM [facility] Chloride 101 98 - 107 mmol/L 11/30/2024 9:43 AM [facility] CO2 20(L) 22 - 29 mmol/L 11/30/2024 9:43 AM [facility] Glucose 335(H) 70 - 99 mg/dL 11/30/2024 9:43 AM [facility] Albumin 2.8(L) 3.4 - 5.0 g/dL 11/30/2024 9:43 AM [facility] Calcium 8.8 8.4 - 10.2 mg/dL 11/30/2024 9:43 AM [facility] Phosphorus 4.3 2.9 - 5.1 mg/dL 11/30/2024 9:43 AM [facility] Anion Gap 12 6 - 16 11/30/2024 9:43 AM [facility] BUN/Creatinine Ratio 17 7 - 23 11/30/2024 9:43 AM [facility] Osmolality Calculated 287 275 - 295 mOsm/kg 11/30/2024 9:43 AM [facility] eGFR by CKD-EPI >90 >=90 mL/min/1.7 3 m2 11/30/2024 9:43 AM [facility] Blood BLOOD SPECIMEN / Unknown Lab Venipuncture / Unknown 11/30/2024 8:35 AM CDT 11/30/2024 9:09 AM CDT us Sacha Swanson MD LAB - CHEMISTRY ORDERABLES Final Result [facility] [address] [place] [address], [facility] [phone] * (ABNORMAL) HEMOGLOBIN A1C (11/23/2024 3:50 AM CDT) Hemoglobin A1c 6.9(H) <=5.6 % 11/23/2024 9:16 AM [facility] Estimated Average Glucose 151 mg/dL 11/23/2024 9:16 AM [facility] Comment: HbA1c Interpretation: Normal : < 5.7% Pre-diabetes: 5.7-6.4% Diabetes: Equal to or greater than 6.5% Test results diagnostic of diabetes should be repeated for confirmation. Treatment target values recommended by ADA and other clinical organizations should be used to evaluate metabolic control in patients. Reference: [place] Diabetes Association, Standards of Care in Diabetes [...] LAB - CHEMISTRY ORDERABLES Kimmy l Result [facility] [address] [place] [address], [facility] [phone] * HIV-1 HIV-2 ANTIBODY (11/10/2010 4:35 PM CDT) HIV-1/HIV-2 Nonreactive Nonreactive [facility] BLOOD SPECIMEN / Unknown 11/10/2010 4:35 PM CDT 11/10/2010 4:45 PM CDT us Ladonna Vasques MD LAB - CHEMISTRY CRISTIANO HUFF Final Result Performing Organization Address City/[facility]/ZIP Co de Phone Number [facility] [address] [place] [phone] * HEPATITIS C ANTIBODY (11/10/2010 4:35 PM CDT) Hepatitis C Antibody Screen Nonreactive Nonreactive [facility] BLOOD SPECIMEN / Unknown 11/10/2010 4:35 PM CDT 11/10/2010 4:45 PM CDT Ladonna Vasques MD LAB - CHEMISTRY CRISTIANO HUFF Final Result Performing Organization Address [facility] Co de Phone Number [facility] [address] [place] [phone] * CYTOLOGY CERVICAL/VAG SCREEN THIN PREP (11/10/2010 4:30 PM CDT) Comment Thin Prep [facility] Pap Smear Report See Scanned Report [facility] ENTIRE ENDOCERVIX / Unknown 11/10/2010 4:30 PM CDT 11/10/2010 4:45 PM CDT Narrative Resulting Agency Comment Performed By [facility](PATRIZIA) [address] [place] [address] [place] Ladonna Vasques MD LAB - PATHOLOGY/CYTO LOGY ORDERABLES Final Result Performing Organization Address City/[facility]/ZIP Co de Phone Number [facility] [address] [place] [phone] from Last 3 Months or Most Recently Relevant to Health Maintenance Insurance [facility] Advance Directives * Full Code (Latest [...]
[2025-04-19 15:27] LABS: Free T4 Free Thyroxine 1.08 ng/dL (0.78-2.19)
[2025-04-19 15:45] LABS: Thyroid Stimulating Hormone 0.276 uIU/mL (0.465-4.680); Total Triiodothyronine (T3) 1.46 NG/ML (0.82-1.58)
== END 2025-04-19 13:59 | disposition home or self-care (01) ==
PROVIDERS: PCP Family Medicine; Visit Provider Internal Medicine
DX: E10.65 Type 1 diabetes mellitus with hyperglycemia (principal); E05.90 Thyrotoxicosis, unspecified without thyrotoxic crisis or storm
CPT/HCPCS: 36415; 84439; 84443; 84480